=== PATIENT | female | born 1960 | race Caucasian/White ===

== ENCOUNTER 2016-10-08 15:47 | Observation (INO) | payer BC, OTHER ==
[~2016-10-08] VITALS: Ht 157.5 cm; Wt 76.0 kg
[~2016-10-08 15:47] MED LIST: CEPH500C PO; CLONIDINE; [UNRECOGNIZED DRUG - REMARK]
--- NOTE | 2016-10-08 16:12 | EMERGENCY ROOM VISIT NOTE ---
History Report prepared by Florencia: Sherif Verdin Under the Supervision of: Dr. Sherif Ricketts M.D. First contact with patient: 15:57 Chief Complaint: SHORTNESS OF BREATH Stated Complaint: SOB, TIGHT CHEST History of Present Illness The patient is a 56 year old female who presents to the Emergency Room with complaints of waxing and waning shortness of breath. Per the patient's family, she had vascular surgery 1 week ago and had stent inserted in her thighs. She is on Plavix. Per the patient, she has had off and on shortness of breath earlier today. She called her doctor because she also noted swelling in her legs , and was referred to the ER. She adds that she has off and on chest tightness, but denies any cough. She admits to having clots over 30 years ago. She denies any recent falls. Her symptoms are worse when she lays flat she gets increasing short of breath. No history of cardiac disease. The lower extremity edema is new she says as well. No significant pain in her feet. Source of History: patient, family Onset: earlier today Position: other (lungs) Quality: other (shortness of breath) Timing: waxes/wanes Associated Symptoms: + chest pain ("tightness") Note: The patient notes having swelling in her legs. Review of Systems See HPI for pertinent positives & negatives. A total of 10 systems reviewed and were otherwise negative. Past Medical & Surgical Medical Problems: (1) Chest pain (2) Depression (3) Dyslipidemia (4) History of blood clots (5) HTN (hypertension) (6) PVD (peripheral vascular disease) (7) SOB (shortness of breath) Surgical Problems: (1) H/O vascular surgery (2) History of appendectomy Old medical records were reviewed. Nurse's notes were reviewed and I agree with. Family History No pertinent family history stated. Social History Smoking Status: Former Smoker Drug Use: none Marital Status: Current/Historical Medications Scheduled Amlodipine (Norvasc), 10 MG PO DAILY Aspirin (Aspirin Ec), 81 MG PO DAILY Atorvastatin (Lipitor), 80 MG PO DAILY Clonidine HCl (Clonidine HCl), 0.2 MG PO BID Clopidogrel (Plavix), 75 MG PO DAILY Fluoxetine (Prozac), 20 MG PO DAILY Gabapentin (Neurontin), 300 MG PO TID Metoprolol Tartrate (Lopressor) (Lopressor), 25 MG PO BID Pantoprazole (Protonix), 40 MG PO DAILY Ranitidine (Zantac), 300 MG PO HS Scheduled PRN Oxycodone/Acetaminophen 5MG/325MG (Percocet 5MG/325MG), 1-2 TABLETS PO Q4H PRN for Pain Trazodone Hcl (Trazodone), 50 MG PO HS PRN for Insomnia Allergies Coded Allergies: Adhesives (Verified Allergy, Mild, 10/08/16) Guanfacine (Verified Allergy, Unknown, 10/08/16) Nifedipine (Verified Allergy, Unknown, 10/08/16) Physical Exam Vital Signs Date Time Temp Pulse Resp B/P Pulse Ox O2 Delivery O2 Flow Rate FiO2 10/08/16 17:51 60 20 111/60 98 Room Air 10/08/16 16:22 99 Room Air 10/08/16 16:20 63 10/08/16 15:50 36.9 65 20 112/73 98 Room Air Physical Exam General: Well developed well nourished in no acute distress, breathing comfortably on room air. Normal speech. Non-ill appearing middle aged female. Mild dyspnea on exertion with walking. HEENT: Normal cephalic atraumatic. Pupils are equal round and reactive to light. Sclerae anicteric. Extraocular movements are intact. Oropharynx is pink with moist mucous membranes. No swelling of the mouth lips or tongue. Neck: Supple with a midline trachea. No meningeal signs or stiffness, no JVD or bruits. No Stridor. Chest: Clear to auscultation bilaterally. No wheezes or rhonchi. No increased work of breathing. Heart: regular rate and rhythm. Abdomen: Soft nontender, nondistended without rebound guarding or rigidity. Extremities: Bilateral 1+ pedal edema; good capillary refill. Normal sensations. Pulses are difficult to feel bilaterally but she has dopplerable pulses that are easy to find and were marked by the nursing staff. She has good capillary refill. No cyanosis Spine/Back. Non tender to palpation. No CVA tenderness Skin: Good turgor without rashes. Neurologic exam: Cranial nerves two through 12 are intact. Motor and sensation are intact and symmetrical throughout. Medical Decision & Procedures ER Provider Diagnostic Interpretation: X ray results as stated below per my interpretation and radiologist interpretation. Other radiology results as stated below per my review and radiologist interpretation: CHEST ONE VIEW PORTABLE FINDINGS: Stable calcified granuloma within the right upper lobe. The lungs are otherwise clear. The heart is normal in size. No pleural effusions. No pneumothorax. IMPRESSION: No significant change compared to the prior study. No acute process. Electronically signed by: Manan Colmenares M.D. 10/08/2016 4:46 PM Dictated Date/Time: 10/08/2016 4:[address] ANGIOGRAM OF THE CHEST FINDINGS: There is a 28 mm left adrenal adenoma. No pathologically enlarged axillary mediastinal or hilar lymph nodes were visualized. There was no evidence of thoracic aortic dilatation. There were no pulmonary artery filling defects to indicate acute pulmonary embolism. No pleural effusions are visualized. There is respiratory motion artifact. There is a calcified right upper lobe granuloma. There is scattered wispy groundglass opacities most pronounced within the left upper lobe. These could be inflammatory. There is a 3 mm left upper lobe pulmonary nodule as visualized in image #[id number]. There is a 5 mm left upper lobe pulmonary nodule as visualized in image #[id number]. IMPRESSION: 1. No CT evidence of acute pulmonary embolism 2. Scattered wispy groundglass opacities most pronounced in the left upper lobe. These could be inflammatory. Clinical correlation is advocated 3. 3 mm and 5 mm left upper lobe pulmonary nodules. Follow-up per Fleischner criteria is recommended. Please refer to below summary of Fleischner criteria recommendations for follow-up of incidental CT nodules (Nichelle Mann, Guidelines for management of small pulmonary nodules detected on CT scans: A statement from the Fleischner Society, Radiology 237: [phone].) Low Risk Patient: Minimal or no smoking or other known risk factors for malignancy <=4 mm: No follow-up needed. >4-6 mm: Initial follow-up CT at 12 months; if unchanged, no further follow-up. >6-8 mm: Initial follow-up CT at 6-12 months then at 18-24 months if no change. >8 mm: Follow-up CT at \\R\\3, 9, 24 months, or PET and/or biopsy. High Risk Patient: History of smoking or other known risk factors <=4 mm: Follow-up at 12 months; if unchanged, no further follow-up. >4-6 mm: Initial follow-up CT at 6-12 months then at 18-24 months if no change. >6-8 mm: Initial follow-up CT at 3-6 months then at 9-12 and 24 months if no change. >8 mm: Same as low risk patient. Note: Nodule size measured as average of length and width. Ground glass or partly solid nodules may require longer follow-up to exclude indolent adenocarcinoma. Electronically signed by: Greg Moreira M.D. 10/08/2016 5:36 PM Dictated Date/Time: 10/08/2016 5:29 PM Laboratory Results 10/08/16 16:15 Red Blood Count 3.00, Mean Corpuscular Volume 90.7, Mean Corpuscular Hemoglobin 32.3, Mean Corpuscular Hemoglobin Concent 35.7, Mean Platelet Volume 10.8, Neutrophils (%) (Auto) 52.1, Lymphocytes (%) (Auto) 31.2, Monocytes (%) (Auto) 13.1, Eosinophils (%) (Auto) 2.4, Basophils (%) (Auto) 0.4, Neutrophils # (Auto ) 4.94, Lymphocytes # (Auto) 2.96, Monocytes # (Auto) 1.24, Eosinophils # (Auto ) 0.23, Basophils # (Auto) 0.04 10/08/16 16:15 Test 10/08/16 16:15 10/08/16 16:26 White Blood Count 9.49 K/uL (4.8-10.8) Red Blood Count 3.00 M/uL (4.2-5.4) Hemoglobin 9.7 g/dL (12.0-16.0) Hematocrit 27.2 % (37-47) Mean Corpuscular Volume 90.7 fL (80-100) Mean Corpuscular Hemoglobin 32.3 pg (25-34) Mean Corpuscular Hemoglobin Concent 35.7 g/dl (32-36) Platelet Count 261 K/uL (130-400) Mean Platelet Volume 10.8 fL (7.4-10.4) Neutrophils (%) (Auto) 52.1 % Lymphocytes (%) (Auto) 31.2 % Monocytes (%) (Auto) 13.1 % Eosinophils (%) (Auto) 2.4 % Basophils (%) (Auto) 0.4 % Neutrophils # (Auto) 4.94 K/uL (1.4-6.5) Lymphocytes # (Auto) 2.96 K/uL (1.2-3.4) Monocytes # (Auto) 1.24 K/uL (0.11-0.59) Eosinophils # (Auto) 0.23 K/uL (0-0.5) Basophils # (Auto) 0.04 K/uL (0-0.2) RDW Standard Deviation 44.8 fL (36.4-46.3) RDW Coefficient of Variation 13.6 % (11.5-14.5) Immature Granulocyte % (Auto) 0.8 % Immature Granulocyte # (Auto) 0.08 K/uL (0.00-0.02) Prothrombin Time 9.8 SECONDS (9.0-12.0) Prothromb Time International Ratio 0.9 (0.9-1.1) Activated Partial Thromboplast Time 28.9 SECONDS (21.0-31.0) Partial Thromboplastin Ratio 1.1 Anion Gap 12.0 mmol/L (3-11) Est Creatinine Clear Calc Drug Dose 90.9 ml/min Estimated GFR () 114.5 Estimated GFR (Non- 98.8 BUN/Creatinine Ratio 7.7 (10-20) Calcium Level 8.7 mg/dl (8.5-10.1) Total Bilirubin 0.2 mg/dl (0.2-1) Direct Bilirubin < 0.1 mg/dl (0-0.2) Aspartate Amino Transf (AST/SGOT) 30 U/L (15-37) Alanine Aminotransferase (ALT/SGPT) 23 U/L (12-78) Alkaline Phosphatase 83 U/L (45-117) Total Protein 6.9 gm/dl (6.4-8.2) Albumin 3.0 gm/dl (3.4-5.0) Amylase Level 67 U/L (25-115) Lipase 264 U/L (73-393) Bedside D-Dimer > 450 ng/mlFEU (0-450) Bedside Troponin I 0.000 ng/ml (0-0.045) XQ-Gnd-S-Type Natriuretic Peptide 629 pg/ml (0-900) Laboratory studies as stated above per my review. Medications Administered Medications (Trade) Dose Ordered Sig/Rosa Route Start Time Stop Time Status Last Admin Dose Admin Miscellaneous Information (Nursing Verbal Med Order) 1 ea ONE ONCE N/A 10/08/16 17:00 10/08/16 17:01 DC 10/08/16 17:00 1 EA Oxycodone/ Acetaminophen (Percocet 5-325MG Tab) 2 tab NOW STAT PO 10/08/16 17:56 10/08/16 17:57 DC 10/08/16 18:07 2 TAB Metoprolol Tartrate (Lopressor Tab) 25 mg NOW STAT PO 10/08/16 17:57 10/08/16 18:00 DC 10/08/16 18:07 25 MG Clonidine HCl (Catapres Tab) 0.2 mg NOW STAT PO 10/08/16 17:57 10/08/16 18:00 DC 10/08/16 18:06 0.2 MG Gabapentin (Neurontin Cap) 300 mg NOW STAT PO 10/08/16 18:00 10/08/16 18:01 DC 10/08/16 18:16 300 MG ECG Indication: SOB/dyspnea Rate (beats per minute): 63 Rhythm: normal sinus Findings: PAC, no acute ischemic change Comparison ECG Date: July 01, 2008 Change: PACs are now present. ED Course 1558: Past medical records reviewed. The patient was evaluated in room A12, and a complete history and physical examination were performed. 1700: I reassessed the patient and she is resting comfortably. 175: I discussed the patient's case with Sweetie Oshea PA-C, [facility]. They will further evaluate and manage the patient. 1755: Upon reevaluation, the patient is hemodynamically stable. I discussed the results and treatment plan with the patient. She verbalized agreement of the treatment plan. The patient will be evaluated for further management. 1756: Ordered Oxycodone/Acetaminophen 2 tab PO. 1757: Ordered Clonidine HCl 0.2 mg PO, and Lopressor Tab 25 mg PO. 1800: Ordered Gabapentin 300 mg PO. Medical Decision Differentials include CHF, DVT, PE, arterial insufficiency, infection, anemia, and electrolyte or metabolic abnormality. This Patient comes in as described above she has shortness of breath and chest pain in lower extremity edema she recently had vascular surgery on her legs with aortoiliac bypasses. I looked at the incision sites that are healing well without redness pus or drainage. She has a bilateral lower extremity edema. She has no capillary refill problems and no obvious neurovascular compromise to her legs. IV access established EKG and chest x-ray obtained she has nothing thus far to suggest acute cardiac event or arrhythmia. Her troponin is not elevated. Her d-dimer was elevated mildly elevated and in light of this, I did chest CT is no evidence of PE. I did ultrasounds of her legs are unremarkable and has no evidence of DVT. Arterial ultrasounds show that does have some degree of stenosis. I'm not sure what this is compared to her baseline. I do think she is be admitted for further cardiac evaluation and further evaluate her swelling in her legs and to rule out an acute event. She was resting comfortably I did consult the [facility] hospitalist group and they will admit her for these measures. Consults Time Called: 174 Consulting Physician: Sweetie Oshea PA-C, [facility] Returned Call: 175 I discussed the patient's case with Sweetie Oshea PA-C, [facility]. They will further evaluate and manage the patient. Impression Primary Impression: SOB (shortness of breath) Additional Impression: Lower extremity edema Scribe Attestation The scribe's documentation has been prepared under my direction and personally reviewed by me in its entirety. I confirm that the note above accurately reflects all work, treatment, procedures, and medical decision making performed by me. Departure Information Dispostion Being Evaluated By Hospitalist Referrals Fabio Tai M.D. (PCP) Patient Instructions My [facility] Problem Qualifiers
[2016-10-08] MEDS ORDERED: RANI300T2 PO (16:35)
[2016-10-08] MEDS ORDERED: ASPI81TA28 PO (16:35)
[2016-10-08] MEDS ORDERED: CLOP1TAB15 PO (16:35)
[2016-10-08] MEDS ORDERED: METO25TA56 PO (16:35)
[2016-10-08] MEDS ORDERED: ATOR-26 PO (16:35)
[2016-10-08] MEDS ORDERED: OXYC-57 PO (16:35)
[2016-10-08] MEDS ORDERED: AMLO-114 PO (16:35)
[2016-10-08] MEDS ORDERED: PANT40TA PO (16:35)
[2016-10-08] MEDS ORDERED: FLUO20CA35 PO (16:35)
[2016-10-08] MEDS ORDERED: CTP2 PO (16:35)
[2016-10-08] MEDS ORDERED: GABA-113 PO (16:35)
[2016-10-08] MEDS ORDERED: CILO100T PO (16:35)
[2016-10-08 16:36] LABS: BASO % 0.4 %; BASO ABS # 0.04 K/uL (0-0.2); COMPLETE YES; EOS % 2.4 %; HEMATOCRIT 27.2 % (37-47); IG% 0.8 %; LYMPH % 31.2 %; LYMPH ABS # 2.96 K/uL (1.2-3.4); MEAN CELL VOLUME 90.7 fL (80-100); MEAN CORPUSCULAR HEMOGLOBIN 32.3 pg (25-34); MEAN CORPUSCULAR HGB CONC 35.7 g/dl (32-36); MEAN PLATELET VOLUME 10.8 fL (7.4-10.4); MONO % 13.1 %; NEUT % 52.1 %; PLATELET COUNT 261 K/uL (130-400); WHITE BLOOD COUNT 9.49 K/uL (4.8-10.8)
--- NOTE | 2016-10-08 16:48 | DIAGNOSTIC IMAGING REPORT ---
CHEST ONE VIEW PORTABLE HISTORY: Atypical CHEST PAIN COMPARISON: Chest 06/29/2008. FINDINGS: Stable calcified granuloma within the right upper lobe. The lungs are otherwise clear. The heart is normal in size. No pleural effusions. No pneumothorax. IMPRESSION: No significant change compared to the prior study. No acute process. Electronically signed by: Manan Colmenares M.D. 10/08/2016 4:46 PM Dictated Date/Time: 10/08/2016 4:44 PM
[2016-10-08 16:49] LABS: INR 0.9 (0.9-1.1); PARTIAL THROMBOPLASTIN RATIO 1.1; PROTHROMBIN TIME (PATIENT) 9.8 SECONDS (9.0-12.0)
[2016-10-08 16:49] LABS: POINT OF CARE PRO-BNP 629 pg/ml (0-900)
[2016-10-08 16:54] LABS: ALT/SGPT 23 U/L (12-78); AST/SGOT 30 U/L (15-37); BLOOD UREA NITROGEN 5 mg/dl (7-18); BUN/CREATININE RATIO 7.7 (10-20); CALCIUM 8.7 mg/dl (8.5-10.1); CARBON DIOXIDE 22 mmol/L (21-32); CHLORIDE 98 mmol/L (98-107); CREATININE 0.66 mg/dl (0.60-1.20); GLUCOSE 67 mg/dl (70-99); SODIUM 132 mmol/L (136-145)
[2016-10-08 16:56] LABS: ALKALINE PHOSPHATASE 83 U/L (45-117)
[2016-10-08] MEDS ORDERED: NURSING VERBAL MED ORDER ONE (17:00)
[2016-10-08] MEDS ORDERED: OPTIRAY 320 IV PRN (17:15)
--- NOTE | 2016-10-08 17:38 | DIAGNOSTIC IMAGING REPORT ---
CT ANGIOGRAM OF THE CHEST CLINICAL HISTORY: Atypical chest pain. Possible pulmonary embolism. COMPARISON STUDY: Chest x-ray dated 10/08/2016 TECHNIQUE: Following the IV administration of 97 mL of Optiray-320, CT angiogram of the thorax was performed from the thoracic inlet to the lung bases utilizing the pulmonary embolus protocol. Images are reviewed in the axial, sagittal, and coronal planes. IV contrast was administered without complication. MIP imaging was performed. CT DOSE: 412.66 mGy.cm FINDINGS: There is a 28 mm left adrenal adenoma. No pathologically enlarged axillary mediastinal or hilar lymph nodes were visualized. There was no evidence of thoracic aortic dilatation. There were no pulmonary artery filling defects to indicate acute pulmonary embolism. No pleural effusions are visualized. There is respiratory motion artifact. There is a calcified right upper lobe granuloma. There is scattered wispy groundglass opacities most pronounced within the left upper lobe. These could be inflammatory. There is a 3 mm left upper lobe pulmonary nodule as visualized in image #[id number]. There is a 5 mm left upper lobe pulmonary nodule as visualized in image #[id number]. IMPRESSION: 1. No CT evidence of acute pulmonary embolism 2. Scattered wispy groundglass opacities most pronounced in the left upper lobe. These could be inflammatory. Clinical correlation is advocated 3. 3 mm and 5 mm left upper lobe pulmonary nodules. Follow-up per Fleischner criteria is recommended. Please refer to below summary of Fleischner criteria recommendations for follow-up of incidental CT nodules (Nichelle Mann, Guidelines for management of small pulmonary nodules detected on CT scans: A statement from the Fleischner Society, Radiology 237: [phone].) Low Risk Patient: Minimal or no smoking or other known risk factors for malignancy <=4 mm: No follow-up needed. >4-6 mm: Initial follow-up CT at 12 months; if unchanged, no further follow-up. >6-8 mm: Initial follow-up CT at 6-12 months then at 18-24 months if no change. >8 mm: Follow-up CT at \R\3, 9, 24 months, or PET and/or biopsy. High Risk Patient: History of smoking or other known risk factors <=4 mm: Follow-up at 12 months; if unchanged, no further follow-up. >4-6 mm: Initial follow-up CT at 6-12 months then at 18-24 months if no change. >6-8 mm: Initial follow-up CT at 3-6 months then at 9-12 and 24 months if no change. >8 mm: Same as low risk patient. Note: Nodule size measured as average of length and width. Ground glass or partly solid nodules may require longer follow-up to exclude indolent adenocarcinoma. Electronically signed by: Greg Moreira M.D. 10/08/2016 5:36 PM Dictated Date/Time: 10/08/2016 5:29 PM
[2016-10-08] MEDS ORDERED: OXYCODONE/ACETAMINOPHEN 5-325 TAB PO STA (17:56)
[2016-10-08] MEDS ORDERED: CLONIDINE HCL 0.1 MG TAB PO STA (17:57)
[2016-10-08] MEDS ORDERED: METOPROLOL TARTRATE 50 MG TAB PO STA (17:57)
[2016-10-08] MEDS ORDERED: GABAPENTIN 300 MG CAP PO STA (18:00)
[2016-10-08] MEDS ORDERED: TRAZ50TA35 PO (18:39)
[2016-10-08] MEDS ORDERED: ACETAMINOPHEN 325 MG TAB PO PRN (18:45)
[2016-10-08] MEDS ORDERED: ONDANSETRON INJ 2 MG/ML 2 ML VIAL IV PRN (18:45)
[2016-10-08] MEDS ORDERED: TRAZODONE HCL 50 MG TAB PO PRN (18:45)
[2016-10-08] MEDS ORDERED: NITROGLYCERIN 0.4 MG SL PER TAB CHARGE SL PRN (18:45)
--- NOTE | 2016-10-08 19:17 | History and Physical ---
History & Physical Date & Time of Service: Oct 08, 2016 at 18:43 Chief Complaint: Sob, Tight Chest Primary Care Physician: Fabio Tai M.D. History of Present Illness Source: patient This is a 56 y/o female with PMHx of PVD s/p recent bilateral fem-pop and stent placement, HTN, Dyslipidemia and other problems as outlined below who presents to the ED c/o SOB that began yesterday. Pt reports that yesterday she developed SOB that is aggravated with laying flat and exertion. Sxs are assoc with chest tightness, abdominal pain and distention, and worsening bilat LE swelling. She denies pain in her legs. Pt has a history of PVD. She underwent bilateral femoral endarterectomy and iliac stent placement 6 days ago in [place]. She was discharged on Plavix. Patient was a lifelong heavy smoker but quit 1 week ago. Pt currently lives at home with her . She has been using a cane and walker to assist with ambulation post-surgery. Pt denies fever/chills, diaphoresis, palpitations, cough, wheezing, N/V, diarrhea, bladder issues, lightheadedness/dizziness. In the ED, vitals are stable. Pt is afebrile with no leukocytosis. HgB 9.7. d-dimer elevated. Na+ 132. BNP WNL. Trop negative and EKG no ischemic changes. CT chest negative for PE. Pt is stable and will be admitted for further evaluation and treatment. Past Medical/Surgical History Medical Problems: (1) Depression Status: Chronic (2) Dyslipidemia Status: Chronic (3) HTN (hypertension) Status: Chronic (4) PVD (peripheral vascular disease) Status: Chronic Surgical Problems: (1) H/O vascular surgery Permanent Comment: bilateral femoral endarterectomy with iliac stent 10/02/2016 Dr. 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) Immunizations History of Influenza Vaccine: Unknown History of Tetanus Vaccine?: Yes Tetanus Immunization Date: Jun 29, 2006 History of Pneumococcal: Unknown History of Hepatitis B Vaccine: Unknown Multi-Drug Resistant Organisms History of MDRO: No Allergies Coded Allergies: Adhesives (Verified Allergy, Mild, 10/08/16) Guanfacine (Verified Allergy, Unknown, 10/08/16) Nifedipine (Verified Allergy, Unknown, 10/08/16) Home Medications Scheduled Amlodipine (Norvasc), 10 MG PO DAILY Aspirin (Aspirin Ec), 81 MG PO DAILY Atorvastatin (Lipitor), 80 MG PO DAILY Clonidine HCl (Clonidine HCl), 0.2 MG PO BID Clopidogrel (Plavix), 75 MG PO DAILY Fluoxetine (Prozac), 20 MG PO DAILY Gabapentin (Neurontin), 300 MG PO TID Metoprolol Tartrate (Lopressor) (Lopressor), 25 MG PO BID Pantoprazole (Protonix), 40 MG PO DAILY Ranitidine (Zantac), 300 MG PO HS Scheduled PRN Oxycodone/Acetaminophen 5MG/325MG (Percocet 5MG/325MG), 1-2 TABLETS PO Q4H PRN for Pain Trazodone Hcl (Trazodone), 50 MG PO HS PRN for Insomnia Review of Systems Constitutional: No chills, No fatigue, No fever, No sweats, No weakness Eyes: No worsening of vision ENT: No hearing loss Respiratory: + dyspnea on exertion, + shortness of breath, No cough, No dyspnea at rest, No sputum, No wheezing Cardiovascular: + chest pain (tightness), No claudication, No palpitations Abdomen: + constipation, + pain, No GI bleeding, No diarrhea, No nausea, No vomiting Musculoskeletal: + swelling, No calf pain Genitourinary - Female: No dysuria Neurologic: No weakness Psychiatric: No depression symptoms Endocrine: No fatigue Hematologic / Lymphatic: No abnormal bleeding/bruising Integumentary: No new/changing skin lesions Physical Exam Vital Signs Date Time Temp Pulse Resp B/P Pulse Ox O2 Delivery O2 Flow Rate FiO2 10/08/16 17:51 60 20 111/60 98 Room Air 10/08/16 16:22 99 Room Air 10/08/16 16:20 63 10/08/16 15:50 36.9 65 20 112/73 98 Room Air General Appearance: WD/WN, no apparent distress, + pertinent finding (Pt is laying in bed with at bedside ) Head: normocephalic, atraumatic Eyes: normal inspection ENT: hearing grossly normal Neck: supple Respiratory/Chest: chest non-tender, lungs clear, normal breath sounds, no respiratory distress, + pertinent finding (no wheezes or crackles noted) Cardiovascular: regular rate, rhythm, no murmur Abdomen/GI: normal bowel sounds, soft, + tenderness (diffuse tenderness to palpation), + distended Back: normal inspection Extremities/Musculoskelatal: no calf tenderness, + swelling (mild bilateral lower extremity swelling ), + pertinent finding (good peripheral pulses bilat ) Neurologic/Psych: alert, normal mood/affect, oriented x 3 Skin: normal color, warm/dry Diagnostics Laboratory Results Results Past 24 Hours Test 10/08/16 16:15 10/08/16 16:26 Range/Units White Blood Count 9.49 4.8-10.8 K/uL Red Blood Count 3.00 4.2-5.4 M/uL Hemoglobin 9.7 12.0-16.0 g/dL Hematocrit 27.2 37-47 % Mean Corpuscular Volume 90.7 80-100 fL Mean Corpuscular Hemoglobin 32.3 25-34 pg Mean Corpuscular Hemoglobin Concent 35.7 32-36 g/dl Platelet Count 261 130-400 K/uL Mean Platelet Volume 10.8 7.4-10.4 fL Neutrophils (%) (Auto) 52.1 % Lymphocytes (%) (Auto) 31.2 % Monocytes (%) (Auto) 13.1 % Eosinophils (%) (Auto) 2.4 % Basophils (%) (Auto) 0.4 % Neutrophils # (Auto) 4.94 1.4-6.5 K/uL Lymphocytes # (Auto) 2.96 1.2-3.4 K/uL Monocytes # (Auto) 1.24 0.11-0.59 K/uL Eosinophils # (Auto) 0.23 0-0.5 K/uL Basophils # (Auto) 0.04 0-0.2 K/uL RDW Standard Deviation 44.8 36.4-46.3 fL RDW Coefficient of Variation 13.6 11.5-14.5 % Immature Granulocyte % (Auto) 0.8 % Immature Granulocyte # (Auto) 0.08 0.00-0.02 K/uL Prothrombin Time 9.8 9.0-12.0 SECONDS Prothromb Time International Ratio 0.9 0.9-1.1 Activated Partial Thromboplast Time 28.9 21.0-31.0 SECONDS Partial Thromboplastin Ratio 1.1 Sodium Level 132 136-145 mmol/L Potassium Level 4.0 3.5-5.1 mmol/L Chloride Level 98 98-107 mmol/L Carbon Dioxide Level 22 21-32 mmol/L Anion Gap 12.0 3-11 mmol/L Blood Urea Nitrogen 5 7-18 mg/dl Creatinine 0.66 0.60-1.20 mg/dl Est Creatinine Clear Calc Drug Dose 90.9 ml/min Estimated GFR () 114.5 Estimated GFR (Non- 98.8 BUN/Creatinine Ratio 7.7 10-20 Random Glucose 67 70-99 mg/dl Calcium Level 8.7 8.5-10.1 mg/dl Total Bilirubin 0.2 0.2-1 mg/dl Direct Bilirubin < 0.1 0-0.2 mg/dl Aspartate Amino Transf (AST/SGOT) 30 15-37 U/L Alanine Aminotransferase (ALT/SGPT) 23 12-78 U/L Alkaline Phosphatase 83 45-117 U/L Total Protein 6.9 6.4-8.2 gm/dl Albumin 3.0 3.4-5.0 gm/dl Lipase 264 73-393 U/L Bedside D-Dimer > 450 0-450 ng/mlFEU Bedside Troponin I 0.000 0-0.045 ng/ml CJ-Qen-L-Type Natriuretic Peptide 629 0-900 pg/ml Diagnostic Radiology CT CHEST IMPRESSION: 1. No CT evidence of acute pulmonary embolism 2. Scattered wispy groundglass opacities most pronounced in the left upper lobe. These could be inflammatory. Clinical correlation is advocated 3. 3 mm and 5 mm left upper lobe pulmonary nodules. Follow-up per Fleischner criteria is recommended. CXR IMPRESSION: No significant change compared to the prior study. No acute process. EKG EKG: NSR at 63 bpm with occ PACs but no acute ischemic changes; PACs are new when compared to EKG from 2008 Impression Assessment and Plan WORSENING SOB/CHEST TIGHTNESS pt presents with worsening SOB aggravated with laying flat and exertion; saturating well on room air -admit observation status to telemetry -pt is afebrile with no leukocytosis -CT chest negative for PE; no consolidation or effusion -Initial troponin is negative; continue to monitor with serial Dereje -EKG: no ischemic changes noted -BNP WNL -continue to monitor on tele ELEVATED D-DIMER -d-dimer>450 -CT chest negative for PE -check bilateral LE venous and arterial US to r/o clot -monitor BILATERAL LE SWELLING -s/p LE vascular surgery 10/02/16 -check bilateral LE venous and arterial US to r/o clot -monitor ABDOMINAL PAIN -abd pain and distention -obtain CT abd/pelvis to eval for intraabdominal pathology ANEMIA -HgB 9.7; likely due to blood loss from recent vascular surgery -continue to monitor daily -pt denies active bleed PULMONARY NODULES ON CT -CT chest + 3 mm and 5 mm left upper lobe pulmonary nodules -obtain f/u CT in 6-12 months PVD -s/p bilateral LE endarterectomy and iliac stent placement 10/02/16 -lifelong smoker; quit 1 week ago -cont ASA, Plavix and statin -monitor DEPRESSION -stable -cont Celexa GERD -cont Protonix and ranitidine HTN -BP stable -cont Metoprolol and Norvasc -monitor DYSLIPIDEMIA -cont statin DVT PROPHYLAXIS -subq Lovenox CODE STATUS -FULL CODE per discussion with patient DISPO -Observation status until further workup is complete. Pt seen in collaboration with Dr. Flores. Please see his addendum for further details. Thanks! ATTENDING NOTE Patient seen and examined at bedside. Reviewed the above History/Physical and confirmed all the findings in person. She looks much older than her stated age.She recently had Fem-pop angioplasty with Femoral endarterectomy for PVD. Patient comes in with worsening B/L pedal edema for the past 3-4 days associated with Dyspnea at rest. Denies any chest pain/pressure. Also has been experiencing intermittent abdominal abdominal pain with no nausea/vomiting. Has elevated D-dimer. CTA Chest rules out Pulmonary embolism but has some scattered areas reflecting inflammatory process. Patient is afebrile. With recent vascular procedure, suspicion for embolic process is high. Ordered Venous Duplex study but it is B/L edema. Ordered CT Abdomen/Pelvis to see if there is any acute process. Empirically have started I/V Heparin and will follow up the work up. Started Rocephin empirically Patient is FULL CODE DVT Prophylaxis: I/V Heparin Patient will be followed up by Dr. Maravilla. Matthias Flores MD Level of Care Telemetry Resuscitation Status FULL RESUSCITATION VTE Prophylaxis VTE Risk Assessment Done? Y/N: Yes Risk Level: Moderate Given or contraindicated: Unfractionated heparin SQ
[2016-10-08] MEDS ORDERED: IV FLUIDS COMPLETED PRN (21:00)
[2016-10-08] MEDS ORDERED: ENOXAPARIN 40 MG/0.4 ML SYR SC SCH (21:00)
[2016-10-08] MEDS ORDERED: CLONIDINE HCL 0.2 MG TAB PO SCH (21:00)
--- NOTE | 2016-10-08 21:19 | DIAGNOSTIC IMAGING REPORT ---
CT SCAN OF THE ABDOMEN AND PELVIS WITHOUT CONTRAST CLINICAL HISTORY: abdominal pain and distention COMPARISON STUDY: No previous studies for comparison. TECHNIQUE: CT scan of the abdomen and pelvis was performed from the lung bases to the proximal femurs. Images are reviewed in the axial, sagittal, and coronal planes. IV contrast was not administered for this examination. CT DOSE: 543.16 mGy.cm FINDINGS: Lower chest: There are mild basilar atelectatic changes left greater than right Liver: The unenhanced liver is normal in size, contour, and attenuation. There is no intrahepatic biliary ductal dilatation. Gallbladder: Unremarkable. Spleen: Normal in size and attenuation. Pancreas: Unremarkable. Adrenal glands: There are 2 low density left adrenal nodules the largest of which measures 29 mm. These are consistent with adenomas. Kidneys: Both kidneys demonstrate contrast excretion secondary to the CT scan performed ON the day. No solid masses are visualized. There is no hydronephrosis Bowel: There are no transition zones indicate bowel obstruction. There is colonic diverticulosis. There are no acute peridiverticular inflammatory changes. There are no findings to indicate acute appendicitis. The appendix is not visualized with certainty. Peritoneum: There is no intraperitoneal free air or abdominal ascites. Vasculature: There are extensive atheromatous calcifications within the aorta and iliac vessels. There are aorto iliac stent grafts present. Adenopathy: There are mildly prominent inguinal lymph nodes. Pelvic viscera: There is infiltration of the fat surrounding both inguinal regions, consistent with recent vascular surgery. There is an air droplets within the left inguinal region, likely postsurgical. No abnormal pelvic masses are visualized. There is air within the bladder, likely echogenic. Skeletal structures: No destructive osseous lesions are seen. IMPRESSION: 1. No evidence of bowel obstruction. No evidence of free air 2. Diverticulosis. No evidence of acute diverticulitis 3. Nonvisualization the appendix, but no evidence of acute appendicitis 4. Left adrenal adenomas 5. Postsurgical changes in both inguinal regions. Evidence of aortoiliac stent grafts Electronically signed by: Greg Moreira M.D. 10/08/2016 9:17 PM Dictated Date/Time: 10/08/2016 9:11 PM
--- NOTE | 2016-10-08 21:22 | DIAGNOSTIC IMAGING REPORT ---
ULTRASOUND VENOUS DOPPLER LWR EXT BILA CLINICAL HISTORY: Bilateral leg pain and swelling COMPARISON STUDY: No previous studies for comparison. FINDINGS: Real-time and color flow Doppler imaging were performed. Flow was seen within the femoral, popliteal and calf veins with no intraluminal thrombus demonstrated. The saphenous vein is patent. Evaluation the groin areas was difficult due to recent surgery and overlying skin neto. IMPRESSION: No evidence of lower extremity DVT. Electronically signed by: Greg Moreira M.D. 10/08/2016 9:20 PM Dictated Date/Time: 10/08/2016 9:19 PM
--- NOTE | 2016-10-08 21:28 | DIAGNOSTIC IMAGING REPORT ---
ARTERIAL DOPPLER ULTRASOUND LOWER EXTREMITY BILATERAL CLINICAL HISTORY: Bilateral leg pain. History of recent aortoiliac stent grafting COMPARISON STUDY: No previous studies for comparison. FINDINGS: The right brachial systolic pressure was 114 mmHg. The right posterior tibial pressure was 72 mmHg. The left posterior tibial pressure was 46 mmHg. The right dorsalis pedis pressure was 56 mmHg. The left dorsalis pedis pressure was 29 mmHg. This yields reduced ankle arm indices of 0.6 on the right and 0.4 on the left. There is monophasic waveforms involving both common femoral arteries, superficial femoral arteries, popliteal arteries, anterior tibial arteries and posterior tibial arteries. There is monophasic flow within the peroneal arteries bilaterally. There are diminished velocities within superficial femoral artery distally on the right. There is low-level to flow with the runoff vessels. There is low-level to flow within the mid left superficial femoral artery. There is limited flow within the runoff vessels. IMPRESSION: 1. Evidence of peripheral vascular disease with diminished ankle arm indices measuring 0.6 on the right and 0.4 and the left 2. Monophasic common femoral artery waveform suggesting a more proximal stenosis. 3. Low amplitude flow involving both superficial femoral arteries. Bilateral SFA stenoses are suspected. Electronically signed by: Greg Moreira M.D. 10/08/2016 9:26 PM Dictated Date/Time: 10/08/2016 9:20 PM
[2016-10-08 21:32] VITALS: BP 111/70; PULSE 57; TEMP 36.6; O2SAT 96; Ht 157.5 cm; Wt 76.0 kg
[2016-10-08] MEDS: GABAPENTIN 300 MG CAP PO SCH (21:34)
[2016-10-08] MEDS: ATORVASTATIN 40 MG TAB PO SCH (21:35)
[2016-10-08] MEDS: RANITIDINE HCL 150 MG TAB PO SCH (21:36)
[2016-10-08] MEDS: CLONIDINE HCL 0.1 MG TAB PO SCH (22:09)
[2016-10-08] MEDS: HEPARIN 25,000 UNIT/500ML D5W 500 ML IV PRN (22:10)
[2016-10-08] MEDS: OXYCODONE/ACETAMINOPHEN 5-325 TAB PO PRN (22:18)
[2016-10-09] VITALS (11 sets, daily range): BP systolic 87–129; BP diastolic 56–76; PULSE 51–78; TEMP 36.3–36.8; O2SAT 95–99
[2016-10-09] MEDS: OXYCODONE/ACETAMINOPHEN 5-325 TAB PO PRN ×4 (03:18→18:08)
[2016-10-09 04:51] LABS: HEMATOCRIT 24.3 % (37-47); MEAN CELL VOLUME 93.8 fL (80-100); MEAN CORPUSCULAR HEMOGLOBIN 32.4 pg (25-34); MEAN CORPUSCULAR HGB CONC 34.6 g/dl (32-36); MEAN PLATELET VOLUME 10.9 fL (7.4-10.4); PLATELET COUNT 209 K/uL (130-400); RED BLOOD COUNT 2.59 M/uL (4.2-5.4); WHITE BLOOD COUNT 7.15 K/uL (4.8-10.8)
[2016-10-09 05:07] LABS: BLOOD UREA NITROGEN 8 mg/dl (7-18); BUN/CREATININE RATIO 11.1 (10-20); CALCIUM 8.5 mg/dl (8.5-10.1); CARBON DIOXIDE 26 mmol/L (21-32); CHLORIDE 101 mmol/L (98-107); GLUCOSE 101 mg/dl (70-99); SODIUM 135 mmol/L (136-145)
[2016-10-09 05:09] LABS: PARTIAL THROMBOPLASTIN RATIO 1.8
[2016-10-09] MEDS: PANTOprazole SOD 40 MG TAB PO SCH (07:40)
[2016-10-09] MEDS: CLONIDINE HCL 0.1 MG TAB PO SCH ×2 (07:40→20:36)
[2016-10-09] MEDS: ASPIRIN 81 MG ECTAB PO SCH (07:41)
[2016-10-09] MEDS: FLUOXETINE HCL 20 MG CAP PO SCH (07:42)
[2016-10-09] MEDS: CLOPIDOGREL BISULFATE 75 MG TAB PO SCH (07:42)
[2016-10-09] MEDS: AMLODIPINE BESYLATE 5 MG TAB PO SCH (07:42)
[2016-10-09] MEDS: GABAPENTIN 300 MG CAP PO SCH ×3 (07:42→20:25)
[2016-10-09] MEDS ORDERED: METOPROLOL TARTRATE 25 MG TAB PO SCH (09:00)
[2016-10-09 12:06] LABS: PARTIAL THROMBOPLASTIN RATIO 1.7
--- NOTE | 2016-10-09 12:58 | CARDIOLOGY CONSULTATION ---
DATE OF CONSULTATION: 10/09/2016 CONSULTATION FOR: [facility] hospitalist. REASON FOR CONSULTATION: Shortness of breath. HISTORY OF PRESENT ILLNESS: This is a 56-year-old female with a history of peripheral vascular disease and actually was just at [facility] 2 days ago receiving stents in her lower extremities. She has been followed by vascular surgery and has never been referred for cardiology evaluation. The patient was admitted with shortness of breath, which she describes as being aggravated by lying flat and with exertion. She also has had lower extremity edema, which has worsened since her hospital admission to [facility]. After admission here she has had a CT of the chest, as well as ultrasounds of lower extremities that failed to show DVT or pulmonary emboli. She has been in atrial fibrillation, which at times has been at a slow rate. Her troponins have been negative. Her EKG shows no acute changes. Her hemoglobin was 9.7 on admission, is 8.4 today. She has a longstanding history of cigarette smoking and stopped, she states, the morning that she had her stents placed in her legs. She has no ongoing history; however, of chronic lung disease. She has been treated for dyslipidemia and hypertension. ALLERGIES: ADHESIVE TAPES, NIFEDIPINE. PAST MEDICAL HISTORY: Per the history of chief complaint. She has no prior history of chronic kidney disease or diabetes. SOCIAL HISTORY: She has at least an 26-alap-cykz smoking history. She drinks 2 beers per night. She is . 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 FAMILY MEDICAL HISTORY: Noncontributory. REVIEW OF SYSTEMS: A 10-point review of systems is negative except for the history of chief complaint. PHYSICAL EXAMINATION: GENERAL: She is alert and oriented. VITAL SIGNS: Blood pressure is 110/70, pulse is regular at 65. She is afebrile. HEENT: She is normocephalic. Pupils are equal and reactive to light. Mucous membranes are moist. NECK: The neck veins are flat. Carotids have good upstrokes bilaterally without bruits. Thyroid is nonpalpable. RESPIRATORY: Breath sounds equal bilaterally and clear to auscultation. CARDIOVASCULAR: Heart has an irregular rhythm. Normal S1, S2. No S3, S4. No cardiac rubs or murmurs. GASTROINTESTINAL: Abdomen is soft, nontender without organomegaly. EXTREMITIES: Have minimal swelling around the ankles and feet. NEUROLOGIC: Grossly intact. SKIN: Warm to touch. LYMPH NODES: Negative to palpation. LABORATORY DATA: Per the history of chief complaint. IMPRESSION: 1. Arteriosclerotic vascular disease. 2. Recent stents placed in lower extremity at [facility]. 3. No previous cardiac evaluation. 4. Persistent atrial fibrillation. 5. Possible congestive heart failure. RECOMMENDATIONS: Due to the patient's bradycardia, I am going to discontinue her metoprolol. She will have an echocardiogram to evaluate her LV function. Her renal function at least by blood chemistry is within normal limits. She may benefit from some gentle diuresis. I will have further recommendations after the echocardiogram is complete.
[2016-10-09] MEDS ORDERED: FUROSEMIDE 40 MG/4 ML VIAL ONE (13:44)
[2016-10-09] MEDS ORDERED: HEPARIN IV BOLUS 2,000 UNIT in SYRINGE 0 ML IV ONE (13:45)
[2016-10-09] MEDS ORDERED: FUROSEMIDE INJ 20 MG in SYRINGE 0 ML IV ONE (13:45)
[2016-10-09] MEDS: HEPARIN 25,000 UNIT/500ML D5W 500 ML IV PRN ×2 (13:51→20:16)
[2016-10-09] MEDS ORDERED: PERFLUTREN LIPID MICROSPHERE (DEFINITY) IV ONE (15:18)
[2016-10-09] MEDS ORDERED: POLYETHYLENE (MIRALAX) 17 GM PACK PO PRN (15:45)
--- NOTE | 2016-10-09 19:24 | Progress Note ---
Medicine Progress Note Date & Time of Visit: Oct 09, 2016 at 19:12. Subjective Patient reports feeling better after lasix, denies any complaints other than soreness in groin from surgery. No overnight events noted. Tolerating PO. No difficulty with ambulation. Denies any additional abdominal pain/SOB. Objective Last 8 Hrs Date Time Temp Pulse Resp B/P Pulse Ox O2 Delivery O2 Flow Rate FiO2 10/09/16 16:00 99 Room Air 10/09/16 15:22 36.7 73 16 107/76 99 Room Air 10/09/16 12:00 98 Room Air 10/09/16 11:21 36.7 76 18 129/65 98 Physical Exam: GENERAL: Patient is in no acute distress. HEENT: No acute trauma, normocephalic, mucous membranes moist, no nasal congestion, no scleral icterus. NECK: No stridor, trachea is midline. LUNGS: Diminished bases bilaterally, no wheeze, no rhonchi, breath sounds equal. HEART: Without murmurs gallops or rubs, irregularly irregular ABDOMEN: Soft, nontender, bowel sounds positive EXTREMITIES: No cyanosis; B/L LE with trace edema; bilateral groin with intact incisions and neto, no drainage or erythema noted NEUROLOGIC: Oriented, no acute motor or sensory deficits, no focal weakness. SKIN: No rash, no jaundice, no diaphoresis. Laboratory Results: Last 24 Hours Test 10/08/16 21:40 10/09/16 04:00 10/09/16 04:38 10/09/16 11:40 Lactic Acid Level 0.8 mmol/L 1.0 mmol/L Creatine Kinase MB < 0.5 ng/ml 0.6 ng/ml Creatine Kinase MB Ratio Troponin I < 0.015 ng/ml < 0.015 ng/ml White Blood Count 7.15 K/uL Red Blood Count 2.59 M/uL Hemoglobin 8.4 g/dL Hematocrit 24.3 % Mean Corpuscular Volume 93.8 fL Mean Corpuscular Hemoglobin 32.4 pg Mean Corpuscular Hemoglobin Concent 34.6 g/dl RDW Standard Deviation 46.7 fL RDW Coefficient of Variation 13.8 % Platelet Count 209 K/uL Mean Platelet Volume 10.9 fL Activated Partial Thromboplast Time 47.5 SECONDS 43.1 SECONDS Partial Thromboplastin Ratio 1.8 1.7 Sodium Level 135 mmol/L Potassium Level 4.0 mmol/L Chloride Level 101 mmol/L Carbon Dioxide Level 26 mmol/L Anion Gap 8.0 mmol/L Blood Urea Nitrogen 8 mg/dl Creatinine 0.70 mg/dl Est Creatinine Clear Calc Drug Dose 86.3 ml/min Estimated GFR () 112.3 Estimated GFR (Non- 96.9 BUN/Creatinine Ratio 11.1 Random Glucose 101 mg/dl Calcium Level 8.5 mg/dl Pro-B-Type Natriuretic Peptide 563 pg/ml Thyroid Stimulating Hormone (TSH) 4.310 uIu/ml Hepatitis C Antibody Screen NEG Test 10/09/16 19:00 Assessment & Plan WORSENING SOB/CHEST TIGHTNESS/NEW ONSET ATRIAL FIBRILLATION: -presenting with worsening SOB aggravated with laying flat and exertion; saturating well on room air -EKG from this AM shows A fib, rates have been on the lower side -afebrile with no leukocytosis, TSH normal, no prior history of A fib -CT chest negative for PE; no consolidation or effusion -serial CMs negative -EKG: no ischemic changes noted, EKG this AM shows A fib -BNP normal -continue to monitor on tele -Cardiology consulted, appreciate recs -TTE ordered BILATERAL LE SWELLING: -s/p LE vascular surgery 10/02/16 -bilateral LE venous and arterial US negative for thrombus -monitor -lasix ordered per Cardio ABDOMINAL PAIN: improved -abd pain and distention -CT abd/pelvis: ANEMIA: -Hb 9.7-->8.4 -likely due to blood loss from recent vascular surgery -monitor closely especially given patient is on IV heparin -monitor for bleeding -check FOBT PULMONARY NODULES: SEEN ON CT -CT chest + 3 mm and 5 mm left upper lobe pulmonary nodules -obtain f/u CT in 6-12 months PVD: -s/p bilateral LE endarterectomy and iliac stent placement 10/02/16 -lifelong smoker; quit 1 week ago -continue ASA, Plavix and statin -monitor DEPRESSION: -stable -continue Celexa GERD: -continue Protonix and ranitidine HTN: -BP stable -continue clonidine and Norvasc; metoprolol stopped -monitor DYSLIPIDEMIA: -continue statin Current Inpatient Medications: Current Inpatient Medications Medications (Trade) Dose Ordered Sig/Rosa Route Start Time Stop Time Status Last Admin Dose Admin Ioversol (Optiray 320) 111 ml UD PRN IV 10/08/16 17:15 10/12/16 17:14 Acetaminophen (Tylenol Tab) 650 mg Q4H PRN PO 10/08/16 18:45 11/07/16 18:44 Ondansetron HCl (Zofran Inj) 4 mg Q6H PRN IV 10/08/16 18:45 11/07/16 18:44 Nitroglycerin (Nitrostat Tab) 0.4 mg UD PRN SL 10/08/16 18:45 11/07/16 18:44 Amlodipine Besylate (Norvasc Tab) 10 mg DAILY PO 10/09/16 09:00 11/08/16 08:59 10/09/16 07:42 10 MG Aspirin (Ecotrin Tab) 81 mg DAILY PO 10/09/16 09:00 11/08/16 08:59 10/09/16 07:41 81 MG Atorvastatin Calcium (Lipitor Tab) 80 mg HS PO 10/08/16 21:00 11/07/16 20:59 10/08/16 21:35 80 MG Clopidogrel Bisulfate (plAVix TAB) 75 mg DAILY PO 10/09/16 09:00 11/08/16 08:59 10/09/16 07:42 75 MG Fluoxetine HCl (Prozac Cap) 20 mg DAILY PO 10/09/16 09:00 11/08/16 08:59 10/09/16 07:42 20 MG Gabapentin (Neurontin Cap) 300 mg TID PO 10/08/16 21:00 11/07/16 20:59 10/09/16 15:19 300 MG Oxycodone/ Acetaminophen (Percocet 5-325MG Tab) 2 tab Q4H PRN PO 10/08/16 18:45 10/22/16 18:44 10/09/16 18:08 2 TAB Pantoprazole Sodium (Protonix Tab) 40 mg DAILY PO 10/09/16 09:00 11/08/16 08:59 10/09/16 07:40 40 MG Trazodone HCl (Desyrel Tab) 50 mg HS PRN PO 10/08/16 18:45 11/07/16 18:44 Ranitidine HCl (zANTac TAB) 300 mg HS PO 10/08/16 21:00 11/07/16 20:59 10/08/16 21:36 300 MG Clonidine HCl (Catapres Tab) 0.2 mg BID PO 10/08/16 21:00 11/07/16 20:59 10/09/16 07:40 0.2 MG Miscellaneous 1 ea 1 ea PRN PRN N/A 10/08/16 21:00 10/08/17 20:59 Heparin Sodium/ Dextrose (Heparin 25,000 Unit/500ml D5W) 500 ml @ 24 mls/hr [id number] PRN IV 10/08/16 21:30 11/07/16 21:29 10/09/16 13:51 24 MLS/HR Polyethylene (Miralax Powder Packet) 17 gm DAILY PRN PO 10/09/16 15:45 11/08/16 15:44
[2016-10-09 19:44] LABS: PARTIAL THROMBOPLASTIN RATIO 2.6
[2016-10-09] MEDS: RANITIDINE HCL 150 MG TAB PO SCH (20:25)
[2016-10-09] MEDS: ATORVASTATIN 40 MG TAB PO SCH (20:25)
[2016-10-10] VITALS (9 sets, daily range): BP systolic 88–123; BP diastolic 53–79; PULSE 54–61; TEMP 36.4–37.2; O2SAT 96–100
[2016-10-10] MEDS: OXYCODONE/ACETAMINOPHEN 5-325 TAB PO PRN ×2 (00:09→06:27)
[2016-10-10 04:51] LABS: HEMATOCRIT 24.6 % (37-47); MEAN CELL VOLUME 94.6 fL (80-100); MEAN CORPUSCULAR HEMOGLOBIN 32.7 pg (25-34); MEAN PLATELET VOLUME 11.6 fL (7.4-10.4); PLATELET COUNT 209 K/uL (130-400); WHITE BLOOD COUNT 6.49 K/uL (4.8-10.8)
[2016-10-10 04:57] LABS: MEAN CORPUSCULAR HGB CONC 34.6 g/dl (32-36)
[2016-10-10 05:08] LABS: PARTIAL THROMBOPLASTIN RATIO 2.6
[2016-10-10] MEDS: FLUOXETINE HCL 20 MG CAP PO SCH (07:35)
[2016-10-10] MEDS: PANTOprazole SOD 40 MG TAB PO SCH (07:35)
[2016-10-10] MEDS: CLONIDINE HCL 0.1 MG TAB PO SCH ×2 (07:35→21:17)
[2016-10-10] MEDS: ASPIRIN 81 MG ECTAB PO SCH (07:36)
[2016-10-10] MEDS: AMLODIPINE BESYLATE 5 MG TAB PO SCH (07:36)
[2016-10-10] MEDS: GABAPENTIN 300 MG CAP PO SCH ×3 (07:37→20:50)
[2016-10-10] MEDS: CLOPIDOGREL BISULFATE 75 MG TAB PO SCH (07:37)
--- NOTE | 2016-10-10 08:41 | ECHOCARDIOGRAM REPORT ---
*NOTICE TO RECEIVING [employer] This information is strictly Confidential and protected under [place] law. [place] law prohibits you from making any further disclosure of this information unless further disclosure is expressly permitted by the written consent of the person to whom it pertains or is authorized by law. A general authorization for the release of medical or other information is not sufficient for this purpose. Hospital accepts no responsibility if the information is made available to any other person, INCLUDING THE PATIENT. Interpretation Summary * Conclusions -- * The left ventricle is normal in size. * Left ventricular systolic function is normal. * Ejection Fraction = 60-65%. * The right ventricular systolic function is normal. * The left atrial size is normal. * Right atrial size is normal. * There is trace mitral regurgitation. * There is mild tricuspid regurgitation. Procedure Details * A complete two-dimensional transthoracic echocardiogram was performed (2D, M-mode, Doppler and color flow Doppler). * There were technical limitations due to patient'spoor positioning * A contrast injection of Definity was performed to improve assessment of LV function. * Contrast was injected into an intravenous site in the left arm. * One vial of Definity ultrasound contrast was diluted in normal saline to a total volume of 10 ml. A total of '2' ml of solution was administered during imaging. Left Ventricle * The left ventricle is normal in size. * There is normal left ventricular wall thickness. * Ejection Fraction = 60-65%. * Left ventricular systolic function is normal. * The left ventricular wall motion is normal. Right Ventricle * The right ventricle is normal size. * The right ventricular systolic function is normal. Atria * The left atrial size is normal. * Right atrial size is normal. * There is no evidence of atrial septal defect, but resolution does not allow assessment for a patent foramen ovale. Mitral Valve * The mitral valve is grossly normal. * There is trace mitral regurgitation. Tricuspid Valve * The tricuspid valve is not well visualized, but is grossly normal. * There is mild tricuspid regurgitation. Aortic Valve * The aortic valve is tricuspid. The leaflet thickness if normal. There is no aortic stenosis, and no significant insufficiency. * No hemodynamically significant valvular aortic stenosis. * There is no significant aortic regurgitation. Pulmonic Valve * The pulmonic valve is not well visualized. Great Vessels * The aortic root and proximal ascending aorta are normal sized. Pericardium/Pleural * There is no pericardial effusion. MMode 2D Measurements and Calculations IVSd 0.99 cm IVSs 1.1 cm LVIDd 4.1 cm LVIDs 2.6 cm LVPWd 1.0 cm LVPWs 1.2 cm IVS/LVPW 0.97 FS 38.0 % EDV(Teich) 76.1 ml ESV(Teich) 23.9 ml EF(Teich) 68.6 % EDV(cubed) 71.1 ml ESV(cubed) 17.0 ml EF(cubed) 76.1 % % IVS thick 15.1 % % LVPW thick 15.9 % LV mass(C)d 135.6 grams LV mass(C)dI 74.9 grams/m\S\2 LV mass(C)s 84.1 grams LV mass(C)sI 46.4 grams/m\S\2 CO(Teich) 4.1 l/min CI(Teich) 2.3 l/min/m\S\2 SV(Teich) 52.1 ml SI(Teich) 28.8 ml/m\S\2 CO(cubed) 4.3 l/min CI(cubed) 2.4 l/min/m\S\2 SV(cubed) 54.1 ml SI(cubed) 29.9 ml/m\S\2 Ao root diam 3.4 cm Ao root area 8.9 cm\S\2 ACS 1.7 cm LA dimension 3.4 cm LA/Ao 1.0 LVAd ap4 44.3 cm\S\2 LVLd ap4 9.7 cm EDV(MOD-sp4) 164.0 ml LVAs ap4 24.5 cm\S\2 LVLs ap4 7.9 cm ESV(MOD-sp4) 62.0 ml EF(MOD-sp4) 62.2 % LVAd ap2 29.2 cm\S\2 LVLd ap2 7.8 cm EDV(MOD-sp2) 91.0 ml LVAs ap2 15.6 cm\S\2 LVLs ap2 6.6 cm ESV(MOD-sp2) 31.0 ml EF(MOD-sp2) 65.9 % CO(MOD-sp4) 8.1 l/min CI(MOD-sp4) 4.5 l/min/m\S\2 SV(MOD-sp4) 102.0 ml SI(MOD-sp4) 56.3 ml/m\S\2 CO(MOD-sp2) 4.7 l/min CI(MOD-sp2) 2.6 l/min/m\S\2 SV(MOD-sp2) 60.0 ml SI(MOD-sp2) 33.1 ml/m\S\2 Doppler Measurements and Calculations MV A max tamica 121.9 cm/sec Ao V2 max 133.6 cm/sec Ao max PG 7.1 mmHg Ao max PG (full) 3.2 mmHg LV V1 max PG 3.9 mmHg LV V1 max 98.7 cm/sec PA V2 max 86.3 cm/sec PA max PG 3.0 mmHg TR max tamica 228.9 cm/sec
[2016-10-10] MEDS ORDERED: FUROSEMIDE 20 MG TAB PO ONE (10:30)
--- NOTE | 2016-10-10 11:25 | PROGRESS NOTE ---
DATE: 10/10/2016 SUBJECTIVE : The patient is a 56-year-old female with arteriosclerotic vascular disease who had stents in her lower extremities earlier this week. Two days after that procedure, she had shortness of breath which she describes as being exacerbated by lying flat and noted some lower extremity edema. She was admitted and after admission, she had rate controlled atrial fibrillation/flutter. She was given diuresis yesterday and states that she feels better. She is currently in a sinus rhythm, so she is going in and out of rate controlled atrial fibrillation. We had stopped her metoprolol yesterday because of bradycardia. She is currently on heparin. Consideration is for future anticoagulation while on dual antiplatelet therapy. She is anemic and this may be related to her recent procedure and blood loss. However, there is a concern of other etiologies for her anemia and I will do a workup including for iron deficiency, B12 and folate levels. I will not start her on warfarin until these labs are back. She does have a history of a colonoscopy approximately 5 years ago that was unremarkable and she has no history that would suggest GI bleeding. She has never had a workup for ischemic heart disease despite having arteriosclerotic vascular disease. Her echocardiogram shows well preserved LV function. We will obtain a pharmacologic nuclear stress test prior to discharge. OBJECTIVE: VITAL SIGNS: Blood pressure is 100/60, pulse is regular at 55 beats per minute. GENERAL: She is afebrile. HEENT: She is normocephalic. Pupils are equal and reactive to light. Extraocular muscles are intact bilaterally. NECK: The neck veins are flat. Carotids have good upstrokes bilaterally without bruits. Thyroid is nonpalpable. RESPIRATORY: Breath sounds equal bilaterally and clear to auscultation. CARDIOVASCULAR: Heart has a regular rhythm. Normal S1, S2. No S3, S4. No cardiac rubs or murmurs. GASTROINTESTINAL: Abdomen is soft, nontender without organomegaly. EXTREMITIES: Free of edema, digit clubbing, or cyanosis. NEUROLOGIC: Grossly intact. SKIN: Warm to touch. LYMPH NODES: Negative to palpation. LABORATORY DATA: Hemoglobin is 8.5 today. Platelet count is 209,000. IMPRESSION: 1. Arteriosclerotic vascular disease. 2. Recent stents placed in lower extremity at [facility]. 3. Paroxysmal atrial fibrillation. 4. Possible ischemic heart disease. 5. Anemia. RECOMMENDATIONS: As outlined above, I plan on working up the patient's anemia before we start her on long-term anticoagulation. She will also need to be screened for ischemic heart disease with a pharmacologic nuclear stress test.
[2016-10-10 12:06] LABS: FERRITIN 258.5 ng/ml (8.0-388.0)
[2016-10-10] MEDS: HYDROCODONE/ACETAMOPHEN 5/325MG TAB PO PRN ×2 (12:22→18:37)
--- NOTE | 2016-10-10 17:04 | Progress Note ---
Medicine Progress Note Date & Time of Visit: Oct 10, 2016 at 16:56. Subjective Patient seen earlier today, complains of itching in bilateral groin at incision site. Did report feeling dizzy/lightheaded while in the bathroom earlier today, and BP was noted to be on the lower side. Has been in A fib intermittently per tele monitor. Patient reports not having a BM and requesting more laxatives. Also requests to have pain medication changed to hydrocodone as she feels percocet is too strong for her. States she has some pain in her LLQ of the abdomen and feels her abdomen to be distended. Objective Last 8 Hrs Date Time Temp Pulse Resp B/P Pulse Ox O2 Delivery O2 Flow Rate FiO2 10/10/16 16:00 Room Air 10/10/16 14:58 37.2 58 20 88/61 99 Room Air 10/10/16 12:00 Room Air 10/10/16 11:23 55 102/68 10/10/16 11:23 36.9 54 20 122/79 100 Room Air 10/10/16 11:23 59 94/56 10/10/16 09:50 57 95/53 Physical Exam: GENERAL: Patient is in no acute distress. HEENT: No acute trauma, normocephalic, mucous membranes moist, no nasal congestion, no scleral icterus. NECK: No stridor, trachea is midline. LUNGS: Diminished bases bilaterally, no wheeze, no rhonchi, breath sounds equal. HEART: Without murmurs gallops or rubs, irregularly irregular ABDOMEN: Soft, tender LLQ, bowel sounds positive EXTREMITIES: No cyanosis; B/L LE with trace edema; bilateral groin with intact incisions and neto, no drainage or erythema noted NEUROLOGIC: Oriented, no acute motor or sensory deficits, no focal weakness. SKIN: No rash, no jaundice, no diaphoresis. Laboratory Results: Last 24 Hours Test 10/09/16 19:15 10/10/16 04:30 10/10/16 10:10 10/10/16 10:54 Activated Partial Thromboplast Time 67.5 SECONDS 66.5 SECONDS Partial Thromboplastin Ratio 2.6 2.6 White Blood Count 6.49 K/uL Red Blood Count 2.60 M/uL Hemoglobin 8.5 g/dL Hematocrit 24.6 % Mean Corpuscular Volume 94.6 fL Mean Corpuscular Hemoglobin 32.7 pg Mean Corpuscular Hemoglobin Concent 34.6 g/dl RDW Standard Deviation 47.8 fL RDW Coefficient of Variation 13.8 % Platelet Count 209 K/uL Mean Platelet Volume 11.6 fL Transferrin % Saturation % 19 % Absolute Reticulocyte Count 0.11 10^6/uL Percent Reticulocyte Count 4.1 % Iron Level 43 mcg/dl Total Iron Binding Capacity 209 mcg/dl Transferrin 165 mg/dl Ferritin 258.5 ng/ml Vitamin B12 Level 528 pg/mL Folate 8.48 ng/mL Assessment & Plan WORSENING SOB/CHEST TIGHTNESS/NEW ONSET PAF: -presenting with worsening SOB aggravated with laying flat and exertion; saturating well on room air -EKG from this AM shows A fib, rates have been on the lower side -afebrile with no leukocytosis, TSH normal, no prior history of A fib -CT chest negative for PE; no consolidation or effusion -serial CMs negative -EKG: no ischemic changes noted, EKG shows A fib; intermittent a fib on tele monitor as well -BNP normal -Cardiology consulted, appreciate recs -TTE: no wall motion abnormalities, EF 60-65% -Patient to undergo a stress test on Wednesday BILATERAL LE SWELLING: -s/p LE vascular surgery 10/02/16 -bilateral LE venous and arterial US negative for thrombus -monitor -lasix ordered per Cardio ABDOMINAL PAIN: -abd pain and distention -CT abd/pelvis with contrast to be done to rule any retroperitoneal hematoma/ bleed ANEMIA: -Hb 9.7-->8.4-->8.5 -likely due to blood loss from recent vascular surgery; anemia workup underway per Cardio given that patient will need terminal clerk anticoagulation -monitor closely especially given patient is on IV heparin -no bleeding noted -check FOBT PULMONARY NODULES: SEEN ON CT -CT chest + 3 mm and 5 mm left upper lobe pulmonary nodules -obtain f/u CT in 6-12 months PVD: -s/p bilateral LE endarterectomy and iliac stent placement 10/02/16 -lifelong smoker; quit 1 week ago -continue ASA, Plavix and statin -monitor DEPRESSION: -stable -continue Celexa GERD: -continue Protonix and ranitidine HTN: -BP stable -continue clonidine and Norvasc; metoprolol stopped -monitor -BP lower today, also orthostatic, place hold parameters on BP meds DYSLIPIDEMIA: -continue statin Current Inpatient Medications: Current Inpatient Medications Medications (Trade) Dose Ordered Sig/Rosa Route Start Time Stop Time Status Last Admin Dose Admin Ioversol (Optiray 320) 111 ml UD PRN IV 10/08/16 17:15 10/12/16 17:14 Acetaminophen (Tylenol Tab) 650 mg Q4H PRN PO 10/08/16 18:45 11/07/16 18:44 Ondansetron HCl (Zofran Inj) 4 mg Q6H PRN IV 10/08/16 18:45 11/07/16 18:44 Nitroglycerin (Nitrostat Tab) 0.4 mg UD PRN SL 10/08/16 18:45 11/07/16 18:44 Aspirin (Ecotrin Tab) 81 mg DAILY PO 10/09/16 09:00 11/08/16 08:59 10/10/16 07:36 81 MG Atorvastatin Calcium (Lipitor Tab) 80 mg HS PO 10/08/16 21:00 11/07/16 20:59 10/09/16 20:25 80 MG Clopidogrel Bisulfate (plAVix TAB) 75 mg DAILY PO 10/09/16 09:00 11/08/16 08:59 10/10/16 07:37 75 MG Fluoxetine HCl (Prozac Cap) 20 mg DAILY PO 10/09/16 09:00 11/08/16 08:59 10/10/16 07:35 20 MG Gabapentin (Neurontin Cap) 300 mg TID PO 10/08/16 21:00 11/07/16 20:59 10/10/16 13:12 300 MG Pantoprazole Sodium (Protonix Tab) 40 mg DAILY PO 10/09/16 09:00 11/08/16 08:59 10/10/16 07:35 40 MG Trazodone HCl (Desyrel Tab) 50 mg HS PRN PO 10/08/16 18:45 11/07/16 18:44 Ranitidine HCl (zANTac TAB) 300 mg HS PO 10/08/16 21:00 11/07/16 20:59 10/09/16 20:25 300 MG Miscellaneous 1 ea 1 ea PRN PRN N/A 10/08/16 21:00 10/08/17 20:59 Heparin Sodium/ Dextrose (Heparin 25,000 Unit/500ml D5W) 500 ml @ 24 mls/hr [id number] PRN IV 10/08/16 21:30 11/07/16 21:29 10/09/16 20:16 24 MLS/HR Polyethylene (Miralax Powder Packet) 17 gm DAILY PRN PO 10/09/16 15:45 10/11/16 09:00 10/09/16 20:35 17 GM Furosemide (Lasix tab) 20 mg QAM PO 10/11/16 09:00 11/10/16 08:59 Diphenhydramine HCl (Benadryl Cap) 25 mg Q8 PRN PO 10/10/16 10:45 11/09/16 10:44 10/10/16 11:31 25 MG Amlodipine Besylate (Norvasc Tab) 5 mg DAILY PO 10/11/16 09:00 Acetaminophen/ Hydrocodone Bitart (Scuddy 5/325 Tab) 2 tab Q6 PRN PO 10/10/16 11:15 10/24/16 11:14 10/10/16 12:22 2 TAB Clonidine HCl (Catapres Tab) 0.1 mg BID PO 10/10/16 21:00 11/09/16 20:59 Polyethylene (Miralax Powder Packet) 17 gm BID PO 10/10/16 21:00 11/09/16 20:59
[2016-10-10] MEDS ORDERED: OPTIRAY 320 IV PRN (17:45)
--- NOTE | 2016-10-10 18:26 | DIAGNOSTIC IMAGING REPORT ---
CT ABD/PELVIS IV AND ORAL CONT CLINICAL HISTORY: LLQ pain, eval for hematoma, recent groin surgery COMPARISON STUDY: 10/08/2016 TECHNIQUE: Following the IV administration of 116 mL of Optiray-320, CT scan of the abdomen and pelvis was performed from the lung bases to the proximal femurs. Images are reviewed in the axial, sagittal, and coronal planes. IV contrast was administered without complication. CT DOSE: 617.84 mGy.cm FINDINGS: Lower chest: There are minor basilar atelectatic changes Liver: The contrast-enhanced liver is normal in size, contour, and attenuation. There is no intrahepatic biliary ductal dilatation. The hepatic veins and portal veins are patent. Gallbladder: Contracted with borderline gallbladder wall thickening Spleen: Normal in size and attenuation. Pancreas: Unremarkable. Adrenal glands: There are persistent left adrenal gland nodules the largest of which measures 29 mm. These were previously demonstrated to represent adenomas. Kidneys: There is symmetric renal cortical enhancement. The kidneys are normal in size without hydronephrosis. Bowel: There are no transition zones indicate bowel obstruction. There is colonic diverticulosis. There are no acute peridiverticular inflammatory changes. The appendix is not visualized with certainty. There are no findings to indicate acute appendicitis. Peritoneum: There is no intraperitoneal free air or abdominal ascites. Vasculature: There are aortoiliac stent grafts present. Adenopathy: There are mildly prominent common femoral lymph nodes, likely reactive. Pelvic viscera: There is air within the bladder, likely secondary to prior instrumentation. There is infiltration of the fat surrounding both inguinal regions. This likely relates to recent vascular surgery. No large hematomas are visualized. There are bilateral inguinal skin neto. Skeletal structures: No destructive osseous lesions are seen. IMPRESSION: 1. No evidence of bowel obstruction. No evidence of free air 2. Left adrenal adenomas 3. Aortoiliac stent grafts 4. Infiltration of the fat involving both inguinal regions. The findings are likely postsurgical. There is also mild anterior abdominal wall skin thickening with mild subcutaneous edema. A cellulitis cannot be excluded. 5. No evidence of retroperitoneal hematoma 6. Mildly prominent common femoral and inguinal lymph nodes nodes, likely reactive 7. Air within the bladder, likely iatrogenic Electronically signed by: Greg Moreira M.D. 10/10/2016 6:24 PM Dictated Date/Time: 10/10/2016 6:17 PM
[2016-10-10] MEDS: HEPARIN 25,000 UNIT/500ML D5W 500 ML IV PRN (18:53)
[2016-10-10] MEDS: RANITIDINE HCL 150 MG TAB PO SCH (20:51)
[2016-10-10] MEDS: ATORVASTATIN 40 MG TAB PO SCH (20:51)
[2016-10-10] MEDS: POLYETHYLENE (MIRALAX) 17 GM PACK PO SCH (20:53)
[2016-10-10] MEDS ORDERED: CLONIDINE HCL 0.1 MG TAB PO SCH (21:00)
[2016-10-11] MEDS: HYDROCODONE/ACETAMOPHEN 5/325MG TAB PO PRN ×3 (00:23→13:11)
[2016-10-11 03:58] VITALS: BP 128/84; PULSE 60; TEMP 36.7; O2SAT 98
[2016-10-11 04:59] LABS: PARTIAL THROMBOPLASTIN RATIO 2.6
[2016-10-11] MEDS: HEPARIN 25,000 UNIT/500ML D5W 500 ML IV PRN ×2 (05:21→14:57)
[2016-10-11 07:50] VITALS: BP 113/74; PULSE 63; TEMP 36.5; O2SAT 95
[2016-10-11] MEDS: CLONIDINE HCL 0.1 MG TAB PO SCH ×2 (07:51→20:04)
[2016-10-11] MEDS: CLOPIDOGREL BISULFATE 75 MG TAB PO SCH (07:54)
[2016-10-11] MEDS: FLUOXETINE HCL 20 MG CAP PO SCH (07:54)
[2016-10-11] MEDS: PANTOprazole SOD 40 MG TAB PO SCH (07:55)
[2016-10-11] MEDS: GABAPENTIN 300 MG CAP PO SCH ×3 (07:55→20:04)
[2016-10-11] MEDS: AMLODIPINE BESYLATE 5 MG TAB PO SCH (07:56)
[2016-10-11] MEDS: FUROSEMIDE 20 MG TAB PO SCH (07:57)
[2016-10-11] MEDS: ASPIRIN 81 MG ECTAB PO SCH (07:57)
[2016-10-11] MEDS: POLYETHYLENE (MIRALAX) 17 GM PACK PO SCH ×2 (07:58→19:58)
[2016-10-11 10:41] LABS: HEMATOCRIT 26.3 % (37-47); MEAN CELL VOLUME 93.6 fL (80-100); MEAN CORPUSCULAR HEMOGLOBIN 32.4 pg (25-34); MEAN CORPUSCULAR HGB CONC 34.6 g/dl (32-36); MEAN PLATELET VOLUME 11.2 fL (7.4-10.4); PLATELET COUNT 238 K/uL (130-400); RED BLOOD COUNT 2.81 M/uL (4.2-5.4); WHITE BLOOD COUNT 7.37 K/uL (4.8-10.8)
[2016-10-11 11:06] LABS: BUN/CREATININE RATIO 9.3 (10-20); CALCIUM 8.5 mg/dl (8.5-10.1); CREATININE 0.84 mg/dl (0.60-1.20); POTASSIUM 4.1 mmol/L (3.5-5.1)
--- NOTE | 2016-10-11 11:46 | PROGRESS NOTE ---
DATE: 10/11/2016 SUBJECTIVE: The patient is a 56-year-old female with history of peripheral vascular disease and recent stents placed in her lower extremities. She still has neto in her groin area and was scheduled to have a followup visit with her vascular surgeon tomorrow. We will have to check with him to see if they need the neto removed prior to her discharge. She has no complaints this morning. She states that her shortness of breath has markedly improved as well as her lower extremity edema. On the telemetry, she is mostly in a sinus rhythm but does have short runs of atrial fibrillation. Her anemia workup suggests that she may have lost some blood during her recent procedures and is now recovering. At this point, we will start her on warfarin. We will have to be careful with her dual antiplatelet therapy and the addition of anticoagulation. OBJECTIVE: GENERAL: She is alert and oriented in no acute distress. VITAL SIGNS: Blood pressure is 110/70. Pulse is regular at 63. She is afebrile. HEENT: She is normocephalic. Pupils are equal and reactive to light. Extraocular muscles are intact bilaterally. NECK: The neck veins are flat. Carotids have good upstrokes bilaterally without bruits. Thyroid is nonpalpable. RESPIRATORY: Breath sounds equal bilaterally and clear to auscultation. CARDIOVASCULAR: Heart has a regular rhythm. Normal S1, S2. No S3 or S4. No cardiac rubs or murmurs. GASTROINTESTINAL: Abdomen is soft, nontender without organomegaly. EXTREMITIES: Free of edema, digit clubbing, or cyanosis. NEUROLOGIC: Grossly intact. SKIN: Warm to touch. LYMPH NODES: Negative to palpation. LABORATORY DATA: Hemoglobin is 9.1, creatinine is 0.84. Potassium is 4.1. IMPRESSION: 1. cardiovascular disease. 2. Recent stent placement lower extremities at [facility] on dual antiplatelet therapy. 3. Paroxysmal atrial fibrillation. 4. Rule out ischemic heart disease. RECOMMENDATIONS: As outlined above, the patient will be started on warfarin today. She is scheduled to undergo a pharmacologic nuclear stress test tomorrow to screen her for ischemic heart disease. We will need to check with the surgeons to see if the neto need to be removed from her groin prior to discharge. CHRIS
[2016-10-11 11:55] VITALS: BP 126/78; PULSE 64; TEMP 36.7; O2SAT 97
[2016-10-11] MEDS: WARFARIN SOD 5 MG TAB PO SCH (15:30)
[2016-10-11 16:02] VITALS: BP 118/72; PULSE 68; TEMP 36.5; O2SAT 99
[2016-10-11] MEDS: OXYCODONE/ACETAMINOPHEN 7.5-325 TAB PO PRN ×2 (16:04→22:14)
[2016-10-11] MEDS: CEPHALEXIN MONOHYDRATE 500 MG CAP PO SCH ×2 (16:13→20:03)
--- NOTE | 2016-10-11 19:20 | Progress Note ---
Medicine Progress Note Date & Time of Visit: Oct 11, 2016 at 19:19. Subjective Patient reports her pain is not well controlled and wants to go back on percocet. No overnight events noted. Still reports being constipated but has had small BMs. Left incision site has been more pruritic and patient has been noted by staff to be rubbing and contacting the incision site on multiple occasions. No bleeding noted. Tolerating PO. Objective Last 8 Hrs Date Time Temp Pulse Resp B/P Pulse Ox O2 Delivery O2 Flow Rate FiO2 10/11/16 16:02 36.5 68 20 118/72 99 Room Air 10/11/16 16:00 Room Air 10/11/16 12:00 Room Air 10/11/16 11:55 36.7 64 20 126/78 97 Room Air Physical Exam: GENERAL: Patient is in no acute distress. HEENT: No acute trauma, normocephalic, mucous membranes moist, no nasal congestion, no scleral icterus. NECK: No stridor, trachea is midline. LUNGS: Diminished bases bilaterally, no wheeze, no rhonchi, breath sounds equal. HEART: Without murmurs gallops or rubs, irregularly irregular ABDOMEN: Soft, tender LLQ, bowel sounds positive EXTREMITIES: No cyanosis; B/L LE with trace edema; bilateral groin with intact incisions and neto, no drainage or erythema noted NEUROLOGIC: Oriented, no acute motor or sensory deficits, no focal weakness. SKIN: No rash, no jaundice, no diaphoresis. Laboratory Results: Last 24 Hours Test 10/11/16 04:24 10/11/16 10:25 Activated Partial Thromboplast Time 67.9 SECONDS Partial Thromboplastin Ratio 2.6 White Blood Count 7.37 K/uL Red Blood Count 2.81 M/uL Hemoglobin 9.1 g/dL Hematocrit 26.3 % Mean Corpuscular Volume 93.6 fL Mean Corpuscular Hemoglobin 32.4 pg Mean Corpuscular Hemoglobin Concent 34.6 g/dl RDW Standard Deviation 47.5 fL RDW Coefficient of Variation 14.0 % Platelet Count 238 K/uL Mean Platelet Volume 11.2 fL Sodium Level 136 mmol/L Potassium Level 4.1 mmol/L Chloride Level 99 mmol/L Carbon Dioxide Level 26 mmol/L Anion Gap 11.0 mmol/L Blood Urea Nitrogen 8 mg/dl Creatinine 0.84 mg/dl Est Creatinine Clear Calc Drug Dose 72.2 ml/min Estimated GFR () 90.0 Estimated GFR (Non- 77.7 BUN/Creatinine Ratio 9.3 Random Glucose 86 mg/dl Calcium Level 8.5 mg/dl Assessment & Plan WORSENING SOB/CHEST TIGHTNESS/NEW ONSET PAF: -presenting with worsening SOB aggravated with laying flat and exertion; saturating well on room air -EKG from this AM shows A fib, rates have been on the lower side -afebrile with no leukocytosis, TSH normal, no prior history of A fib -CT chest negative for PE; no consolidation or effusion -serial CMs negative -EKG: no ischemic changes noted, EKG shows A fib; intermittent a fib on tele monitor as well -BNP normal -Cardiology consulted, appreciate recs -TTE: no wall motion abnormalities, EF 60-65% -Patient to undergo a stress test tomorrow -patient was started on coumadin today and remains on heparin IV to bridge BILATERAL LE SWELLING: -s/p LE vascular surgery 10/02/16 -bilateral LE venous and arterial US negative for thrombus -monitor -lasix ordered per Cardio ABDOMINAL PAIN: -abd pain and distention -CT abd/pelvis with contrast to be done to rule any retroperitoneal hematoma/ bleed ANEMIA: -Hb 9.7-->8.4-->8.5-->9.1 -likely due to blood loss from recent vascular surgery; anemia workup underway per Cardio given that patient will need snf anticoagulation -monitor closely especially given patient is on IV heparin -no bleeding noted -check FOBT PULMONARY NODULES: SEEN ON CT -CT chest + 3 mm and 5 mm left upper lobe pulmonary nodules -obtain f/u CT in 6-12 months PVD: -s/p bilateral LE endarterectomy and iliac stent placement 10/02/16 -lifelong smoker; quit 1 week ago -continue ASA, Plavix and statin -monitor DEPRESSION: -stable -continue Celexa GERD: -continue Protonix and ranitidine HTN: -BP stable -continue clonidine and Norvasc; metoprolol stopped -monitor -BP lower, was orthostatic, placed hold parameters on BP meds and lowered doses of clonidine and norvasc DYSLIPIDEMIA: -continue statin Current Inpatient Medications: Current Inpatient Medications Medications (Trade) Dose Ordered Sig/Rosa Route Start Time Stop Time Status Last Admin Dose Admin Ioversol (Optiray 320) 111 ml UD PRN IV 10/08/16 17:15 10/12/16 17:14 Acetaminophen (Tylenol Tab) 650 mg Q4H PRN PO 10/08/16 18:45 11/07/16 18:44 Ondansetron HCl (Zofran Inj) 4 mg Q6H PRN IV 10/08/16 18:45 11/07/16 18:44 Nitroglycerin (Nitrostat Tab) 0.4 mg UD PRN SL 10/08/16 18:45 11/07/16 18:44 Aspirin (Ecotrin Tab) 81 mg DAILY PO 10/09/16 09:00 11/08/16 08:59 10/11/16 07:57 81 MG Atorvastatin Calcium (Lipitor Tab) 80 mg HS PO 10/08/16 21:00 11/07/16 20:59 10/10/16 20:51 80 MG Clopidogrel Bisulfate (plAVix TAB) 75 mg DAILY PO 10/09/16 09:00 11/08/16 08:59 10/11/16 07:54 75 MG Fluoxetine HCl (Prozac Cap) 20 mg DAILY PO 10/09/16 09:00 11/08/16 08:59 10/11/16 07:54 20 MG Gabapentin (Neurontin Cap) 300 mg TID PO 10/08/16 21:00 11/07/16 20:59 10/11/16 13:10 300 MG Pantoprazole Sodium (Protonix Tab) 40 mg DAILY PO 10/09/16 09:00 11/08/16 08:59 10/11/16 07:55 40 MG Trazodone HCl (Desyrel Tab) 50 mg HS PRN PO 10/08/16 18:45 11/07/16 18:44 Ranitidine HCl (zANTac TAB) 300 mg HS PO 10/08/16 21:00 11/07/16 20:59 10/10/16 20:51 300 MG Miscellaneous 1 ea 1 ea PRN PRN N/A 10/08/16 21:00 10/08/17 20:59 Heparin Sodium/ Dextrose (Heparin 25,000 Unit/500ml D5W) 500 ml @ 24 mls/hr [id number] PRN IV 10/08/16 21:30 11/07/16 21:29 10/11/16 14:57 24 MLS/HR Furosemide (Lasix tab) 20 mg QAM PO 10/11/16 09:00 11/10/16 08:59 10/11/16 07:57 20 MG Diphenhydramine HCl (Benadryl Cap) 25 mg Q8 PRN PO 10/10/16 10:45 11/09/16 10:44 10/11/16 08:02 25 MG Amlodipine Besylate (Norvasc Tab) 5 mg DAILY PO 10/11/16 09:00 10/11/16 07:56 5 MG Clonidine HCl (Catapres Tab) 0.1 mg BID PO 10/10/16 21:00 11/09/16 20:59 10/10/16 21:17 0.1 MG Polyethylene (Miralax Powder Packet) 17 gm BID PO 10/10/16 21:00 11/09/16 20:59 10/11/16 07:58 17 GM Ioversol (Optiray 320) 125 ml UD PRN IV 10/10/16 17:45 10/14/16 17:44 Warfarin Sodium (Coumadin Tab) 5 mg DAILY@16 PO 10/11/16 16:00 11/10/16 15:59 10/11/16 15:30 5 MG Oxycodone/ Acetaminophen (Percocet 7.5-325MG Tab) 1 tab Q6H PRN PO 10/11/16 15:15 10/25/16 15:14 10/11/16 16:04 1 TAB Docusate Sodium (coLACE CAP) 100 mg BID PO 10/11/16 21:00 11/10/16 20:59 Cephalexin Monohydrate (Keflex Cap) 500 mg QID PO 10/11/16 17:00 10/21/16 16:59 10/11/16 16:13 500 MG
[2016-10-11 19:41] VITALS: BP 166/76; PULSE 71; TEMP 36.7; O2SAT 96
[2016-10-11 19:48] VITALS: BP 113/73; PULSE 71; TEMP 36.7; O2SAT 95
[2016-10-11] MEDS: RANITIDINE HCL 150 MG TAB PO SCH (20:02)
[2016-10-11] MEDS: ATORVASTATIN 40 MG TAB PO SCH (20:02)
[2016-10-11] MEDS: DOCUSATE SODIUM 100 MG CAP PO SCH (20:03)
[2016-10-12] VITALS (10 sets, daily range): BP systolic 104–136; BP diastolic 65–85; PULSE 66–78; TEMP 36.3–36.9; O2SAT 95–100
[2016-10-12] MEDS: OXYCODONE/ACETAMINOPHEN 7.5-325 TAB PO PRN ×3 (04:55→18:39)
[2016-10-12 05:07] LABS: HEMATOCRIT 26.7 % (37-47); MEAN CORPUSCULAR HEMOGLOBIN 32.4 pg (25-34); PLATELET COUNT 257 K/uL (130-400); RED BLOOD COUNT 2.81 M/uL (4.2-5.4); WHITE BLOOD COUNT 7.54 K/uL (4.8-10.8)
[2016-10-12 05:28] LABS: MEAN CORPUSCULAR HGB CONC 34.1 g/dl (32-36)
[2016-10-12 05:29] LABS: INR 0.9 (0.9-1.1); PARTIAL THROMBOPLASTIN RATIO 2.1; PROTHROMBIN TIME (PATIENT) 10.1 SECONDS (9.0-12.0)
[2016-10-12] MEDS: DOCUSATE SODIUM 100 MG CAP PO SCH ×2 (07:53→21:27)
[2016-10-12] MEDS: ASPIRIN 81 MG ECTAB PO SCH (07:53)
[2016-10-12] MEDS: CEPHALEXIN MONOHYDRATE 500 MG CAP PO SCH ×3 (07:54→16:39)
[2016-10-12] MEDS: CLOPIDOGREL BISULFATE 75 MG TAB PO SCH (07:55)
[2016-10-12] MEDS: GABAPENTIN 300 MG CAP PO SCH ×3 (07:56→21:27)
[2016-10-12] MEDS: FLUOXETINE HCL 20 MG CAP PO SCH (07:56)
[2016-10-12] MEDS: PANTOprazole SOD 40 MG TAB PO SCH (07:57)
[2016-10-12] MEDS: AMLODIPINE BESYLATE 5 MG TAB PO SCH (08:06)
[2016-10-12] MEDS: CLONIDINE HCL 0.1 MG TAB PO SCH ×2 (08:06→21:27)
--- NOTE | 2016-10-12 09:43 | Cardiology Follow-Up ---
Subjective General Date of Service: Oct 12, 2016. Chief Complaint: left groin pain, follow up shortness of breath, chest tightness, PAF Pt evaluation today including: conversation w/ patient, physical exam History of Present Illness The patient is a 56 year old female seen in follow-up with initial consultation having been performed by Dr. Martniez earlier this hospital stay. The patient was seen and examined in room 221-1 on the telemetry floor. Her chief complaint this morning his left groin pain. She states her shortness of breath is improved. She has an ongoing complaint of "chest tightness "which she describes as being mild. This is been a complaint that has been present for months and is not new since her recent peripheral arterial disease or new this admission. Serial troponin levels have been negative thus far this admission. Her last EKG revealed sinus bradycardia with poor R-wave progression but no ST segment changes. Her shortness of breath was much improved. CT of the abdomen and pelvis performed 10/10/16 revealed post operative changes to bilateral iliac areas, with no definite findings to suggest infection. Allergies Coded Allergies: Adhesives (Verified Allergy, Mild, 10/08/16) Guanfacine (Verified Allergy, Unknown, 10/08/16) Nifedipine (Verified Allergy, Unknown, 10/08/16) Social History Smoking Status: Current Every Day Smoker Hx Tobacco Use In Past Year?: Yes Hx Alcohol Use - Type And Amou: Yes (12-36 oz beer daily) Hx Substance Use - Type And Am: No Problem List Medical Problems: (1) Lower extremity edema Status: Acute Physical Exam Vital Signs Last Vital Signs Documentation Date Time Temp Pulse Resp B/P Pulse Ox O2 Delivery O2 Flow Rate FiO2 10/12/16 07:58 36.8 72 22 135/84 98 Room Air Physical Exam Constitutional: Level of Distress: NAD Neck: supple Lungs: Auscultation: no wheezing, no rales/crackles Cardiovascular: Heart Auscultation: RRR, no murmurs Extremities: no cyanosis, no varicosities Neurologic: Gait & Station: pertinent finding (no focal deficits) Assessment and Plan Assessment and Plan Last Resulted 10/12/16 04:50 Last Resulted 10/11/16 10:25 Past 24 Hours Test 10/12/16 04:58 Range/Units Prothromb Time International Ratio 0.9 0.9-1.1 Prothrombin Time 10.1 9.0-12.0 SECONDS Impression: 56-year-old female 1. Pain at her left femoral incision site, perhaps postprocedure neuralgia from mild swelling, no definite clinical signs of underlying abscess, no leukocytosis, no fever, no abscess pocket seen on CT 2 2. Chest tightness, chronic per her description, negative enzymes, proceed with pharmacologic stress testing today as planned 3. Lower extremity edema, abdominal fullness, perhaps post reperfusion edema, acute diastolic heart failure perhaps less likely given relatively low BNP 4. Newly diagnosed paroxysmal atrial fibrillation, CHADSVASC score of at lest 2 given female and history of PAD predicting moderate risk for cardioembolic stroke and therefore anticoagulation is the most ideal treatment 5. Peripheral arterial disease, status post recent bilateral common femoral endarterectomy, by lateral common/external iliac artery angioplasty and stenting 6. Chronic anemia 7. Cigarette smoking, ceased within the last week 8. History of dyslipidemia Recommendations/ plan: Continue aspirin plus clopidogrel for PAD. Hold heparin for planned stress test today, patient is in sinus rhythm at present on telemetry. Coumadin initiation has been initiated, will determine if Coumadin will be continued today pending stress test results, if there is a high ischemic burden , many cardiac catheterization and therefore anticoagulation will have to be delayed. She is of course at an increased risk of bleeding complication given therapy with aspirin plus clopidogrel plus Coumadin, but her risk of cardiac embolic stroke is also significant, and she requires total and a platelet therapy given her recent peripheral arterial intervention. I discussed her left groin pain with Dr. Mcfarland of [facility] vascular surgery who is actually to see her in outpatient follow-up today. He recommended close outpatient follow-up, the lack of fever and lack of leukocytosis reassuring, continue oral Keflex. Marbella Kinsey, Laboratory Results Last 24 Hours Test 10/11/16 10:25 10/12/16 04:50 10/12/16 04:58 White Blood Count 7.37 K/uL 7.54 K/uL Red Blood Count 2.81 M/uL 2.81 M/uL Hemoglobin 9.1 g/dL 9.1 g/dL Hematocrit 26.3 % 26.7 % Mean Corpuscular Volume 93.6 fL 95.0 fL Mean Corpuscular Hemoglobin 32.4 pg 32.4 pg Mean Corpuscular Hemoglobin Concent 34.6 g/dl 34.1 g/dl RDW Standard Deviation 47.5 fL 48.3 fL RDW Coefficient of Variation 14.0 % 14.1 % Platelet Count 238 K/uL 257 K/uL Mean Platelet Volume 11.2 fL 11.0 fL Sodium Level 136 mmol/L Potassium Level 4.1 mmol/L Chloride Level 99 mmol/L Carbon Dioxide Level 26 mmol/L Anion Gap 11.0 mmol/L Blood Urea Nitrogen 8 mg/dl Creatinine 0.84 mg/dl Est Creatinine Clear Calc Drug Dose 72.2 ml/min Estimated GFR () 90.0 Estimated GFR (Non- 77.7 BUN/Creatinine Ratio 9.3 Random Glucose 86 mg/dl Calcium Level 8.5 mg/dl Prothrombin Time 10.1 SECONDS Prothromb Time International Ratio 0.9 Activated Partial Thromboplast Time 55.8 SECONDS Partial Thromboplastin Ratio 2.1
[2016-10-12] MEDS: FUROSEMIDE 20 MG TAB PO SCH (12:50)
[2016-10-12] MEDS ORDERED: POLYETHYLENE (MIRALAX) 17 GM PACK ONE (12:51)
[2016-10-12] MEDS: POLYETHYLENE (MIRALAX) 17 GM PACK PO SCH ×2 (13:05→21:21)
--- NOTE | 2016-10-12 14:09 | MYOCARDIAL PERFUSION SCAN ---
ORDERING PROVIDER: Dr. Martinez. INTERPRETING PROVIDER: Dr. Kinsey. INDICATION: Chest tightness with risk factors for coronary artery disease. TECHNIQUE: For the stress portion of the study 30.9 mCi of technetium-99m Cardiolite IV was injected at 11:35 a.m. on 08/12/2017. Thirty minutes following the injection, imaging of the heart was performed in multiple projections. For the rest portion of the study, 10.3 mCi of technetium-99m Cardiolite was injected at 9:40 a.m. One hour after the injection, imaging of the heart was performed in the same projections. HEMODYNAMIC DATA: The patient received 0.4 mg of Lexiscan intravenously. The resting heart rate was 63 beats per minute raymond to a maximum heart rate of 88 beats per minute. This slightly represents 53% of the maximal age predicted heart rate. The resting blood pressure of 147/75 mmHg raymond to a maximum blood pressure of 147/75 mmHg. The stress test was terminated due to completion of the planned pharmacologic protocol. The patient described shortness of breath with Lexiscan administration, which resolved completely in the post-pharmacologic stress recovery interval. EKG FINDINGS: The resting EKG revealed sinus rhythm at 62 beats per minute with occasional PVCs. Resting EKG was unchanged with no new ST segment changes. Occasional PVCs were noted during the pharmacologic stress. PERFUSION DATA: The stress SPECT images revealed normal perfusion throughout the myocardium. The resting SPECT images were unchanged with normal perfusion. Gated images revealed normal left ventricular wall motion. The calculated left ventricular ejection fraction was normal, over 70%. IMPRESSION: 1. Normal Lexiscan pharmacologic nuclear stress test with no evidence of resting or inducible ischemia. 2. The gated wall motion was normal, calculated left ventricular ejection fraction greater than 70%. [facility]
--- NOTE | 2016-10-12 14:28 | Cardiology Progress Note ---
Cardiology Progress Note Stress test was negative for ischemia. Pt in SR. Will DC heparin. Continue loading oral coumadin as inpatient. Check CBC, BMP, and INR in am 10/13/16.
[2016-10-12] MEDS: WARFARIN SOD 5 MG TAB PO SCH (16:39)
--- NOTE | 2016-10-12 17:50 | Progress Note ---
Medicine Progress Note Date & Time of Visit: Oct 12, 2016 at 17:50. Subjective Patient reports left groin pain to be more tender. No overnight events noted. Patient still reports LLQ abdominal pain. Has been moving bowels without difficulty. Tolerating more activity today and has been up ambulating more. Objective Last 8 Hrs Date Time Temp Pulse Resp B/P Pulse Ox O2 Delivery O2 Flow Rate FiO2 10/12/16 16:00 96 Room Air 10/12/16 15:51 36.9 71 20 104/65 98 Room Air 10/12/16 13:18 36.3 66 22 122/72 100 Room Air 10/12/16 12:00 95 Room Air Physical Exam: GENERAL: Patient is in no acute distress. HEENT: No acute trauma, normocephalic, mucous membranes moist, no nasal congestion, no scleral icterus. NECK: No stridor, trachea is midline. LUNGS: Diminished bases bilaterally, no wheeze, no rhonchi, breath sounds equal. HEART: Without murmurs gallops or rubs, irregularly irregular ABDOMEN: Soft, tender LLQ, bowel sounds positive EXTREMITIES: No cyanosis; B/L LE with trace edema; bilateral groin with intact incisions and neto, Left groin with scant clear drainage and erythema noted + warmth NEUROLOGIC: Oriented, no acute motor or sensory deficits, no focal weakness. SKIN: No rash, no jaundice, no diaphoresis. Laboratory Results: Last 24 Hours Test 10/12/16 04:50 10/12/16 04:58 10/12/16 15:30 White Blood Count 7.54 K/uL Red Blood Count 2.81 M/uL Hemoglobin 9.1 g/dL Hematocrit 26.7 % Mean Corpuscular Volume 95.0 fL Mean Corpuscular Hemoglobin 32.4 pg Mean Corpuscular Hemoglobin Concent 34.1 g/dl RDW Standard Deviation 48.3 fL RDW Coefficient of Variation 14.1 % Platelet Count 257 K/uL Mean Platelet Volume 11.0 fL Prothrombin Time 10.1 SECONDS Prothromb Time International Ratio 0.9 Activated Partial Thromboplast Time 55.8 SECONDS Partial Thromboplastin Ratio 2.1 Assessment & Plan WORSENING SOB/CHEST TIGHTNESS/NEW ONSET PAF: -presenting with worsening SOB aggravated with laying flat and exertion; saturating well on room air -EKG showed A fib, rates have been on the lower side -afebrile with no leukocytosis, TSH normal, no prior history of A fib -CT chest negative for PE; no consolidation or effusion -serial CMs negative -EKG: no ischemic changes noted, EKG shows A fib; intermittent a fib on tele monitor as well -BNP normal -Cardiology consulted, appreciate recs -TTE: no wall motion abnormalities, EF 60-65% -patient was started on coumadin, INR subtherapeutic -heparin IV stopped -stress test today was negative BILATERAL LE SWELLING: -s/p LE vascular surgery 10/02/16 -bilateral LE venous and arterial US negative for thrombus -monitor -lasix ordered per Cardio -antibiotics started yesterday, keflex, however changed to doxycycline IV for while the patient is in the hospital -patient missed her vascular surgery appt today and will need to have it rescheduled to follow up with vascular this week ABDOMINAL PAIN: -abd pain and distention -CT abd/pelvis with contrast done to rule out any retroperitoneal hematoma/bleed ; no evidence of bleeding but possible developing cellulitis in left groin ANEMIA: -Hb 9.7-->8.4-->8.5-->9.1 -likely due to blood loss from recent vascular surgery; anemia workup underway per Cardio given that patient will need detention anticoagulation -monitor closely especially given patient is on anticoagulation -no bleeding noted -FOBT pending PULMONARY NODULES: SEEN ON CT -CT chest + 3 mm and 5 mm left upper lobe pulmonary nodules -obtain f/u CT in 6-12 months PVD: -s/p bilateral LE endarterectomy and iliac stent placement 10/02/16 -lifelong smoker; quit 1 week ago -continue ASA, Plavix and statin -monitor DEPRESSION: -stable -continue Celexa GERD: -continue Protonix and ranitidine HTN: -BP stable -continue clonidine and Norvasc; metoprolol stopped -monitor -BP lower, was orthostatic, placed hold parameters on BP meds and lowered doses of clonidine and norvasc DYSLIPIDEMIA: -continue statin Current Inpatient Medications: Current Inpatient Medications Medications (Trade) Dose Ordered Sig/Rosa Route Start Time Stop Time Status Last Admin Dose Admin Acetaminophen (Tylenol Tab) 650 mg Q4H PRN PO 10/08/16 18:45 11/07/16 18:44 Ondansetron HCl (Zofran Inj) 4 mg Q6H PRN IV 10/08/16 18:45 11/07/16 18:44 Nitroglycerin (Nitrostat Tab) 0.4 mg UD PRN SL 10/08/16 18:45 11/07/16 18:44 Aspirin (Ecotrin Tab) 81 mg DAILY PO 10/09/16 09:00 11/08/16 08:59 10/12/16 07:53 81 MG Atorvastatin Calcium (Lipitor Tab) 80 mg HS PO 10/08/16 21:00 11/07/16 20:59 10/11/16 20:02 80 MG Clopidogrel Bisulfate (plAVix TAB) 75 mg DAILY PO 10/09/16 09:00 11/08/16 08:59 10/12/16 07:55 75 MG Fluoxetine HCl (Prozac Cap) 20 mg DAILY PO 10/09/16 09:00 11/08/16 08:59 10/12/16 07:56 20 MG Gabapentin (Neurontin Cap) 300 mg TID PO 10/08/16 21:00 11/07/16 20:59 10/12/16 13:42 300 MG Pantoprazole Sodium (Protonix Tab) 40 mg DAILY PO 10/09/16 09:00 11/08/16 08:59 10/12/16 07:57 40 MG Trazodone HCl (Desyrel Tab) 50 mg HS PRN PO 10/08/16 18:45 11/07/16 18:44 Ranitidine HCl (zANTac TAB) 300 mg HS PO 10/08/16 21:00 11/07/16 20:59 10/11/16 20:02 300 MG Miscellaneous (Iv Fluids Completed) 1 ea PRN PRN N/A 10/08/16 21:00 10/08/17 20:59 Furosemide (Lasix tab) 20 mg QAM PO 10/11/16 09:00 11/10/16 08:59 10/12/16 12:50 20 MG Diphenhydramine HCl (Benadryl Cap) 25 mg Q8 PRN PO 10/10/16 10:45 11/09/16 10:44 10/12/16 13:42 25 MG Amlodipine Besylate (Norvasc Tab) 5 mg DAILY PO 10/11/16 09:00 10/12/16 08:06 5 MG Clonidine HCl (Catapres Tab) 0.1 mg BID PO 10/10/16 21:00 11/09/16 20:59 10/12/16 08:06 0.1 MG Polyethylene (Miralax Powder Packet) 17 gm BID PO 10/10/16 21:00 11/09/16 20:59 10/12/16 13:05 17 GM Ioversol (Optiray 320) 125 ml UD PRN IV 10/10/16 17:45 10/14/16 17:44 Warfarin Sodium (Coumadin Tab) 5 mg DAILY@16 PO 10/11/16 16:00 11/10/16 15:59 10/12/16 16:39 5 MG Oxycodone/ Acetaminophen (Percocet 7.5-325MG Tab) 1 tab Q6H PRN PO 10/11/16 15:15 10/25/16 15:14 10/12/16 12:49 1 TAB Docusate Sodium (coLACE CAP) 100 mg BID PO 10/11/16 21:00 11/10/16 20:59 10/12/16 07:53 100 MG Cephalexin Monohydrate (Keflex Cap) 500 mg QID PO 10/11/16 17:00 10/21/16 16:59 10/12/16 16:39 500 MG
[2016-10-12] MEDS: RANITIDINE HCL 150 MG TAB PO SCH (21:27)
[2016-10-12] MEDS: ATORVASTATIN 40 MG TAB PO SCH (21:28)
[2016-10-12] MEDS: DOXYCYCLINE IV 100 MG in DEXTROSE 5% 100ML 100 ML IV SCH (21:29)
[2016-10-13] VITALS (7 sets, daily range): BP systolic 121–136; BP diastolic 78–85; PULSE 55–91; TEMP 36.4–36.9; O2SAT 97–99
[2016-10-13] MEDS: OXYCODONE/ACETAMINOPHEN 7.5-325 TAB PO PRN ×4 (00:45→18:41)
[2016-10-13 07:00] LABS: HEMATOCRIT 29.5 % (37-47); MEAN CELL VOLUME 95.8 fL (80-100); MEAN CORPUSCULAR HEMOGLOBIN 32.8 pg (25-34); MEAN CORPUSCULAR HGB CONC 34.2 g/dl (32-36); MEAN PLATELET VOLUME 11.1 fL (7.4-10.4); PLATELET COUNT 298 K/uL (130-400); RED BLOOD COUNT 3.08 M/uL (4.2-5.4); WHITE BLOOD COUNT 7.66 K/uL (4.8-10.8)
[2016-10-13 07:22] LABS: INR 1.1 (0.9-1.1); PROTHROMBIN TIME (PATIENT) 11.5 SECONDS (9.0-12.0)
[2016-10-13 07:34] LABS: BUN/CREATININE RATIO 7.7 (10-20); CALCIUM 9.1 mg/dl (8.5-10.1); CREATININE 0.91 mg/dl (0.60-1.20); POTASSIUM 4.1 mmol/L (3.5-5.1)
[2016-10-13] MEDS: DOXYCYCLINE IV 100 MG in DEXTROSE 5% 100ML 100 ML IV SCH ×2 (08:53→21:07)
[2016-10-13] MEDS: DOCUSATE SODIUM 100 MG CAP PO SCH ×2 (08:53→20:47)
[2016-10-13] MEDS: CLOPIDOGREL BISULFATE 75 MG TAB PO SCH (08:53)
[2016-10-13] MEDS: ASPIRIN 81 MG ECTAB PO SCH (08:53)
[2016-10-13] MEDS: POLYETHYLENE (MIRALAX) 17 GM PACK PO SCH ×2 (08:54→20:47)
[2016-10-13] MEDS: FLUOXETINE HCL 20 MG CAP PO SCH (08:54)
[2016-10-13] MEDS: FUROSEMIDE 20 MG TAB PO SCH (08:54)
[2016-10-13] MEDS: CLONIDINE HCL 0.1 MG TAB PO SCH ×2 (08:54→20:46)
[2016-10-13] MEDS: AMLODIPINE BESYLATE 5 MG TAB PO SCH (08:55)
[2016-10-13] MEDS: PANTOprazole SOD 40 MG TAB PO SCH (08:55)
[2016-10-13] MEDS: GABAPENTIN 300 MG CAP PO SCH ×3 (08:55→20:47)
--- NOTE | 2016-10-13 11:24 | Progress Note ---
Medicine Progress Note Date & Time of Visit: Oct 13, 2016 at 11:14. Subjective patient seen resting in bed, comfortable, in good spirits denies chest pain, shortness of breath, dizziness, palpitations bilateral groin pain improving no leg pain denies other symptoms Objective Last 8 Hrs Date Time Temp Pulse Resp B/P Pulse Ox O2 Delivery O2 Flow Rate FiO2 10/13/16 08:30 Room Air 10/13/16 07:35 36.9 70 18 126/82 99 Room Air 10/13/16 04:00 97 Room Air 10/13/16 03:58 36.4 55 18 122/79 97 Room Air Physical Exam: General- oriented x 3, not in distress, speaks in sentences with no effort Head- atraumatic Eyes- EOMI, anicteric Neck- supple, no JVD Lungs- clear to auscultation bilaterally Heart- normal rate, regular rhythm; no murmurs Abdomen- normal bowel sounds, soft, nontender right groin: wound well opposed, neto intact, no discharge, no erythema/ warmth/tenderness left groin: wound well opposed, neto intact, no discharge, (+) mild surrounding erythema, (+) moderate tenderness, no edema/warmth Extremities- no pretibial edema, no calf tenderness; peripheral pulses intact Neuro- alert, oriented x 3; no gross focal deficits Skin- warm & dry Laboratory Results: Last 24 Hours Test 10/13/16 06:40 White Blood Count 7.66 K/uL Red Blood Count 3.08 M/uL Hemoglobin 10.1 g/dL Hematocrit 29.5 % Mean Corpuscular Volume 95.8 fL Mean Corpuscular Hemoglobin 32.8 pg Mean Corpuscular Hemoglobin Concent 34.2 g/dl RDW Standard Deviation 50.5 fL RDW Coefficient of Variation 14.5 % Platelet Count 298 K/uL Mean Platelet Volume 11.1 fL Prothrombin Time 11.5 SECONDS Prothromb Time International Ratio 1.1 Sodium Level 135 mmol/L Potassium Level 4.1 mmol/L Chloride Level 101 mmol/L Carbon Dioxide Level 26 mmol/L Anion Gap 8.0 mmol/L Blood Urea Nitrogen 7 mg/dl Creatinine 0.91 mg/dl Est Creatinine Clear Calc Drug Dose 65.9 ml/min Estimated GFR () 81.7 Estimated GFR (Non- 70.5 BUN/Creatinine Ratio 7.7 Random Glucose 83 mg/dl Calcium Level 9.1 mg/dl Assessment & Plan WORSENING SOB/CHEST TIGHTNESS/NEW ONSET PAF: -presenting with worsening SOB aggravated with laying flat and exertion; saturating well on room air -EKG showed A fib, rates have been on the lower side -CT chest negative for PE; no consolidation or effusion -serial CMs negative -EKG: no ischemic changes noted, EKG shows A fib; intermittent a fib on tele monitor as well -BNP normal -TTE: no wall motion abnormalities, EF 60-65% - s/p Stress test 10/12/16: negative - started on Coumadin INR 1.1 needs to establish with Coumadin clinic BILATERAL LE SWELLING -s/p LE vascular surgery 10/02/16 -bilateral LE venous and arterial US negative for thrombus -lasix started per Cardiology improved POSSIBLE LEFT GROIN CELLULITIS RECENT FEM-POP BYPASS WITH STENT PLACEMENT -CT abd/pelvis with contrast done to rule out any retroperitoneal hematoma/bleed ; no evidence of bleeding but possible developing cellulitis in left groin - improving with Doxycycline IV needs to continue Doxycycline PO when discharged ff up with Vascular Surgery this week ANEMIA: -likely due to blood loss from recent vascular surgery - Hg stable around 9-10 Iron, b12, folate: saurabh; -monitor closely especially given patient is on anticoagulation PULMONARY NODULES: SEEN ON CT -CT chest + 3 mm and 5 mm left upper lobe pulmonary nodules -obtain f/u CT in 6-12 months PVD: -s/p bilateral LE endarterectomy and iliac stent placement 10/02/16 -lifelong smoker; quit 1 week ago -continue ASA, Plavix and statin -monitor DEPRESSION: -stable -continue Celexa GERD: -continue Protonix and ranitidine HTN: -BP stable -continue clonidine and Norvasc; metoprolol stopped -monitor -BP lower, was orthostatic, placed hold parameters on BP meds and lowered doses of clonidine and norvasc DYSLIPIDEMIA: -continue statin Disposition d/c home today when cleared by Cardiology Current Inpatient Medications: Current Inpatient Medications Medications (Trade) Dose Ordered Sig/Rosa Route Start Time Stop Time Status Last Admin Dose Admin Acetaminophen (Tylenol Tab) 650 mg Q4H PRN PO 10/08/16 18:45 11/07/16 18:44 10/12/16 21:20 650 MG Ondansetron HCl (Zofran Inj) 4 mg Q6H PRN IV 10/08/16 18:45 11/07/16 18:44 Nitroglycerin (Nitrostat Tab) 0.4 mg UD PRN SL 10/08/16 18:45 11/07/16 18:44 Aspirin (Ecotrin Tab) 81 mg DAILY PO 10/09/16 09:00 11/08/16 08:59 10/13/16 08:53 81 MG Atorvastatin Calcium (Lipitor Tab) 80 mg HS PO 10/08/16 21:00 11/07/16 20:59 10/12/16 21:28 80 MG Clopidogrel Bisulfate (plAVix TAB) 75 mg DAILY PO 10/09/16 09:00 11/08/16 08:59 10/13/16 08:53 75 MG Fluoxetine HCl (Prozac Cap) 20 mg DAILY PO 10/09/16 09:00 11/08/16 08:59 10/13/16 08:54 20 MG Gabapentin (Neurontin Cap) 300 mg TID PO 10/08/16 21:00 11/07/16 20:59 10/13/16 08:55 300 MG Pantoprazole Sodium (Protonix Tab) 40 mg DAILY PO 10/09/16 09:00 11/08/16 08:59 10/13/16 08:55 40 MG Trazodone HCl (Desyrel Tab) 50 mg HS PRN PO 10/08/16 18:45 11/07/16 18:44 Ranitidine HCl (zANTac TAB) 300 mg HS PO 10/08/16 21:00 11/07/16 20:59 10/12/16 21:27 300 MG Miscellaneous (Iv Fluids Completed) 1 ea PRN PRN N/A 10/08/16 21:00 10/08/17 20:59 Furosemide (Lasix tab) 20 mg QAM PO 10/11/16 09:00 11/10/16 08:59 10/13/16 08:54 20 MG Diphenhydramine HCl (Benadryl Cap) 25 mg Q8 PRN PO 10/10/16 10:45 11/09/16 10:44 10/12/16 19:55 25 MG Amlodipine Besylate (Norvasc Tab) 5 mg DAILY PO 10/11/16 09:00 10/13/16 08:55 5 MG Clonidine HCl (Catapres Tab) 0.1 mg BID PO 10/10/16 21:00 11/09/16 20:59 10/13/16 08:54 0.1 MG Polyethylene (Miralax Powder Packet) 17 gm BID PO 10/10/16 21:00 11/09/16 20:59 10/13/16 08:54 17 GM Ioversol (Optiray 320) 125 ml UD PRN IV 10/10/16 17:45 10/14/16 17:44 Warfarin Sodium (Coumadin Tab) 5 mg DAILY@16 PO 10/11/16 16:00 11/10/16 15:59 10/12/16 16:39 5 MG Docusate Sodium 100 mg 100 mg BID PO 10/11/16 21:00 11/10/16 20:59 10/13/16 08:53 100 MG Doxycycline Hyclate/Dextrose (Vibramycin IV/ D5 100ml) 110 ml @ 50 mls/hr BID IV 10/12/16 21:00 10/22/16 20:59 10/13/16 08:53 50 MLS/HR Oxycodone/ Acetaminophen (Percocet 7.5-325MG Tab) Mild to modrate pain 1 ... Q6H PRN PO 10/12/16 21:15 10/26/16 21:14 10/13/16 06:41 2 TAB
--- NOTE | 2016-10-13 14:34 | Cardiology Follow-Up ---
Subjective General Date of Service: Oct 13, 2016. Chief Complaint: left groin pain, follow up shortness of breath, chest tightness, PAF Pt evaluation today including: conversation w/ patient, physical exam History of Present Illness The patient is a 56 year old female seen in follow up in room 280-2. Patient is much more comfortable today. Denies chest tightness or shortness of breath. Left groin pain is improved, having had two doses of IV doxycycline. Telemetry reveals stable SR. No AF. No bradycardia. Allergies Coded Allergies: Adhesives (Verified Allergy, Mild, 10/08/16) Guanfacine (Verified Allergy, Unknown, 10/08/16) Nifedipine (Verified Allergy, Unknown, 10/08/16) Social History Smoking Status: Current Every Day Smoker Hx Tobacco Use In Past Year?: Yes Hx Alcohol Use - Type And Amou: Yes (12-36 oz beer daily) Hx Substance Use - Type And Am: No Problem List Medical Problems: (1) Lower extremity edema Status: Acute Physical Exam Vital Signs Last Vital Signs Documentation Date Time Temp Pulse Resp B/P Pulse Ox O2 Delivery O2 Flow Rate FiO2 10/13/16 12:19 36.5 91 18 128/78 98 Nasal Cannula Physical Exam Constitutional: Level of Distress: NAD Neck: supple Lungs: Auscultation: no wheezing, no rales/crackles Cardiovascular: Heart Auscultation: RRR, no murmurs Extremities: no cyanosis, no varicosities, pertinent finding (Left groin incision with mild erythema, less tender to palpation of surrounding area compared to 10/12/16) Neurologic: Gait & Station: pertinent finding (no focal deficits) Assessment and Plan Assessment and Plan Impression: 56-year-old female 1. Pain at her left femoral incision site, possible infection vs postprocedure neuralgia from mild swelling, no definite clinical signs of underlying abscess, no leukocytosis, no fever, no abscess pocket seen on CT 2 2. Chest tightness-improved/ resolved, normal LVEF on echocardiogram, normal pharm nuclear stress 10/14 3. Lower extremity edema, abdominal fullness, perhaps post reperfusion edema, acute diastolic heart failure perhaps less likely given relatively low BNP 4. Newly diagnosed paroxysmal atrial fibrillation, CHADSVASC score of at lest 2 given female and history of PAD predicting moderate risk for cardioembolic stroke and therefore anticoagulation is the most ideal treatment 5. Peripheral arterial disease, status post recent bilateral common femoral endarterectomy, by lateral common/external iliac artery angioplasty and stenting 6. Chronic anemia 7. Cigarette smoking, ceased within the last week 8. History of dyslipidemia Recommendations/ plan: Continue aspirin plus clopidogrel for PAD. Continue coumadin load for new onset PAF, now in SR. Remain in hospital today to continue IV antibiotics for left groin. Continue low dose furosemide. Metoprolol discontinued due to bradycardia earlier this admission. Disposition: will need follow up with vascular surgery at [facility], [facility] clinic follow up, Follow up with Dr Martinez as outpt. Marbella Kinsey DO Laboratory Results Last 24 Hours Test 10/13/16 06:40 White Blood Count 7.66 K/uL Red Blood Count 3.08 M/uL Hemoglobin 10.1 g/dL Hematocrit 29.5 % Mean Corpuscular Volume 95.8 fL Mean Corpuscular Hemoglobin 32.8 pg Mean Corpuscular Hemoglobin Concent 34.2 g/dl RDW Standard Deviation 50.5 fL RDW Coefficient of Variation 14.5 % Platelet Count 298 K/uL Mean Platelet Volume 11.1 fL Prothrombin Time 11.5 SECONDS Prothromb Time International Ratio 1.1 Sodium Level 135 mmol/L Potassium Level 4.1 mmol/L Chloride Level 101 mmol/L Carbon Dioxide Level 26 mmol/L Anion Gap 8.0 mmol/L Blood Urea Nitrogen 7 mg/dl Creatinine 0.91 mg/dl Est Creatinine Clear Calc Drug Dose 65.9 ml/min Estimated GFR () 81.7 Estimated GFR (Non- 70.5 BUN/Creatinine Ratio 7.7 Random Glucose 83 mg/dl Calcium Level 9.1 mg/dl
[2016-10-13] MEDS: WARFARIN SOD 5 MG TAB PO SCH (17:04)
[2016-10-13] MEDS: RANITIDINE HCL 150 MG TAB PO SCH (20:47)
[2016-10-13] MEDS: ATORVASTATIN 40 MG TAB PO SCH (20:47)
[2016-10-14 00:18] VITALS: BP 123/80; PULSE 72; TEMP 36.8; O2SAT 97
[2016-10-14] MEDS: OXYCODONE/ACETAMINOPHEN 7.5-325 TAB PO PRN ×3 (00:55→13:10)
[2016-10-14 04:43] LABS: MEAN CELL VOLUME 94.5 fL (80-100); MEAN CORPUSCULAR HEMOGLOBIN 32.4 pg (25-34); MEAN PLATELET VOLUME 10.3 fL (7.4-10.4); PLATELET COUNT 267 K/uL (130-400); RED BLOOD COUNT 2.75 M/uL (4.2-5.4); WHITE BLOOD COUNT 7.38 K/uL (4.8-10.8)
[2016-10-14 04:50] LABS: MEAN CORPUSCULAR HGB CONC 34.2 g/dl (32-36)
[2016-10-14 04:55] LABS: INR 1.3 (0.9-1.1); PROTHROMBIN TIME (PATIENT) 13.5 SECONDS (9.0-12.0)
[2016-10-14 07:36] VITALS: BP 134/74; PULSE 69; TEMP 36.6; O2SAT 98
[2016-10-14 08:00] VITALS: O2SAT 98
[2016-10-14] MEDS: FLUOXETINE HCL 20 MG CAP PO SCH (08:48)
[2016-10-14] MEDS: PANTOprazole SOD 40 MG TAB PO SCH (08:48)
[2016-10-14] MEDS: DOCUSATE SODIUM 100 MG CAP PO SCH (08:48)
[2016-10-14] MEDS: CLOPIDOGREL BISULFATE 75 MG TAB PO SCH (08:49)
[2016-10-14] MEDS: POLYETHYLENE (MIRALAX) 17 GM PACK PO SCH (08:49)
[2016-10-14] MEDS: GABAPENTIN 300 MG CAP PO SCH ×2 (08:49→13:53)
[2016-10-14] MEDS: CLONIDINE HCL 0.1 MG TAB PO SCH (08:49)
[2016-10-14] MEDS: AMLODIPINE BESYLATE 5 MG TAB PO SCH (08:49)
[2016-10-14] MEDS: FUROSEMIDE 20 MG TAB PO SCH (08:50)
[2016-10-14] MEDS: DOXYCYCLINE IV 100 MG in DEXTROSE 5% 100ML 100 ML IV SCH (08:50)
[2016-10-14] MEDS: ASPIRIN 81 MG ECTAB PO SCH (08:50)
--- NOTE | 2016-10-14 11:33 | Cardiology Follow-Up ---
Subjective General Date of Service: Oct 14, 2016. Chief Complaint: left groin pain, follow up shortness of breath, chest tightness, PAF Pt evaluation today including: conversation w/ patient, physical exam History of Present Illness The patient is a 56 year old female seen in follow up. Pt denies chest pain or shortness of breath. Left groin feels better than yesterday. Allergies Coded Allergies: Adhesives (Verified Allergy, Mild, 10/08/16) Guanfacine (Verified Allergy, Unknown, 10/08/16) Nifedipine (Verified Allergy, Unknown, 10/08/16) Social History Smoking Status: Current Every Day Smoker Hx Tobacco Use In Past Year?: Yes Hx Alcohol Use - Type And Amou: Yes (12-36 oz beer daily) Hx Substance Use - Type And Am: No Problem List Medical Problems: (1) Lower extremity edema Status: Acute Physical Exam Vital Signs Last Vital Signs Documentation Date Time Temp Pulse Resp B/P Pulse Ox O2 Delivery O2 Flow Rate FiO2 10/14/16 08:00 98 Room Air 10/14/16 07:36 36.6 69 18 134/74 Physical Exam Constitutional: Level of Distress: NAD Neck: supple Lungs: Auscultation: no wheezing, no rales/crackles Cardiovascular: Heart Auscultation: RRR, no murmurs Extremities: no cyanosis, no varicosities, pertinent finding (Left groin incision with mild erythema, less tender to palpation of surrounding area compared to 10/12/16) Neurologic: Gait & Station: pertinent finding (no focal deficits) Assessment and Plan Assessment and Plan Impression: 56-year-old female 1. Pain at her left femoral incision site, possible infection vs postprocedure neuralgia from mild swelling, no definite clinical signs of underlying abscess, no leukocytosis, no fever, no abscess pocket seen on CT 2 2. Chest tightness-improved/ resolved, normal LVEF on echocardiogram, normal pharm nuclear stress 10/14 3. Lower extremity edema, abdominal fullness, perhaps post reperfusion edema, acute diastolic heart failure perhaps less likely given relatively low BNP 4. Newly diagnosed paroxysmal atrial fibrillation, CHADSVASC score of at lest 2 given female and history of PAD predicting moderate risk for cardioembolic stroke and therefore anticoagulation is the most ideal treatment 5. Peripheral arterial disease, status post recent bilateral common femoral endarterectomy, by lateral common/external iliac artery angioplasty and stenting 6. Chronic anemia 7. Cigarette smoking, ceased within the last week 8. History of dyslipidemia Recommendations/ plan: Continue aspirin plus clopidogrel for PAD. Continue coumadin load without bridge therapy for new onset PAF, now in SR. OK from my standpoint for transition to oral antibiotics with close outpt vascualar surgery follow up to reassess wound and remove neto. Continue low dose furosemide. Metoprolol discontinued due to bradycardia earlier this admission. Disposition: [place] need [place] [facility] [place] [facility] [place], Follow up with Dr Kinsey as outpt within 1-3 weeks . I contacted the cardiology office to request appointment with me for follow up of AF. Marbella Kinsey, DO Laboratory Results Last 24 Hours Test 10/14/16 04:28 White Blood Count 7.38 K/uL Red Blood Count 2.75 M/uL Hemoglobin 8.9 g/dL Hematocrit 26.0 % Mean Corpuscular Volume 94.5 fL Mean Corpuscular Hemoglobin 32.4 pg Mean Corpuscular Hemoglobin Concent 34.2 g/dl RDW Standard Deviation 49.7 fL RDW Coefficient of Variation 14.5 % Platelet Count 267 K/uL Mean Platelet Volume 10.3 fL Prothrombin Time 13.5 SECONDS Prothromb Time International Ratio 1.3
[2016-10-14] MEDS: WARFARIN SOD 5 MG TAB PO SCH (15:59)
[2016-10-14 16:00] VITALS: BP 125/63; PULSE 68; TEMP 36.6; O2SAT 96
--- NOTE | 2016-10-14 17:05 | Progress Note ---
Medicine Progress Note Date & Time of Visit: Oct 14, 2016 at 16:50. Subjective patient seen resting in bed, comfortable states she feels better overall left groin pain also significantly better no chest pain, dyspnea, palpitations, dizziness ambulates with no problems states she is ready and would like to be discharged today Objective Last 8 Hrs Date Time Temp Pulse Resp B/P Pulse Ox O2 Delivery O2 Flow Rate FiO2 10/14/16 16:00 36.6 68 18 125/63 96 Room Air Physical Exam: General- oriented x 3, not in distress, speaks in sentences with no effort Eyes- anicteric Neck- no JVD Lungs- clear to auscultation bilaterally, no rales/wheezes Heart- normal rate, regular rhythm; no murmurs Abdomen- normal bowel sounds, soft, nontender right groin: wound well opposed, neto intact, no discharge, no erythema/ warmth/tenderness left groin: wound well opposed, neto intact, scant yellow discharge, (+) mild surrounding erythema- improving, (+) mild tenderness, no edema/warmth Extremities- no pretibial edema, no calf tenderness; peripheral pulses intact; warm to touch, no cyanosis Neuro- alert, oriented x 3; no gross focal deficits Skin- warm & dry Laboratory Results: Last 24 Hours Test 10/14/16 04:28 10/14/16 13:15 White Blood Count 7.38 K/uL Red Blood Count 2.75 M/uL Hemoglobin 8.9 g/dL Hematocrit 26.0 % Mean Corpuscular Volume 94.5 fL Mean Corpuscular Hemoglobin 32.4 pg Mean Corpuscular Hemoglobin Concent 34.2 g/dl RDW Standard Deviation 49.7 fL RDW Coefficient of Variation 14.5 % Platelet Count 267 K/uL Mean Platelet Volume 10.3 fL Prothrombin Time 13.5 SECONDS Prothromb Time International Ratio 1.3 Stool Occult Blood NEGATIVE Date/Time Source Procedure Growth Status 10/14/16 03:25 Drainage - Surface Groin Gram Stain - Final Resulted 10/14/16 03:25 Drainage - Surface Groin Wound Culture Pending Resulted Assessment & Plan WORSENING SOB/CHEST TIGHTNESS POSSIBLY FROM NEW ONSET ATRIAL FIBRILLATION -presented with worsening SOB aggravated with laying flat and exertion; saturating well on room air -EKG showed A fib, rates have been on the lower side -CT chest negative for PE; no consolidation or effusion -serial CMs negative -EKG: no ischemic changes noted, EKG shows A fib; intermittent a fib on tele monitor as well -BNP normal -TTE: no wall motion abnormalities, EF 60-65% - s/p Stress test 10/12/16: negative - started on Coumadin 5mg po daily since 10/11/16 INR 1.3 as of 10/14/16 - countinue coumadin 5mg po daily INR check in 1-2 days c/o Coumadin Clinic (will contact clinic) POSSIBLE LEFT GROIN CELLULITIS RECENT FEM-POP BYPASS WITH STENT PLACEMENT - CT abd/pelvis with contrast done to rule out any retroperitoneal hematoma/ bleed; no evidence of bleeding but possible developing cellulitis in left groin - improving with Doxycycline IV, received x 2 days needs to continue Doxycycline PO when discharged ff up with Vascular Surgery tomorrow 10/15/16 for wound check BILATERAL LE SWELLING -s/p LE vascular surgery 10/02/16 -bilateral LE venous and arterial US negative for thrombus -lasix started per Cardiology improved PVD -s/p bilateral LE endarterectomy and iliac stent placement 10/02/16 -lifelong smoker; quit 1 week prior to admission -continue ASA, Plavix and statin -monitor HTN -BP lower, was orthostatic, placed hold parameters on BP meds and lowered doses of clonidine and norvasc metoprolol stopped due to bradycardia - monitor BP ANEMIA -likely due to blood loss from recent vascular surgery - Hg stable around 9-10 Iron, b12, folate: saurabh; -monitor closely especially given patient is on anticoagulation PULMONARY NODULES: SEEN ON CT -CT chest + 3 mm and 5 mm left upper lobe pulmonary nodules -obtain f/u CT in 6-12 months DEPRESSION: -stable -continue Celexa GERD: -continue Protonix and ranitidine DYSLIPIDEMIA: -continue statin Disposition d/c home today ff up with [facility] Surgery 10.14.16 Dr. Tai 10.19.16 Dr. Kinsey 10.23.16 Coumadin Clinic to call patient Current Inpatient Medications: Current Inpatient Medications Medications (Trade) Dose Ordered Sig/Rosa Route Start Time Stop Time Status Last Admin Dose Admin Acetaminophen (Tylenol Tab) 650 mg Q4H PRN PO 10/08/16 18:45 11/07/16 18:44 10/12/16 21:20 650 MG Ondansetron HCl (Zofran Inj) 4 mg Q6H PRN IV 10/08/16 18:45 11/07/16 18:44 Nitroglycerin (Nitrostat Tab) 0.4 mg UD PRN SL 10/08/16 18:45 11/07/16 18:44 Aspirin (Ecotrin Tab) 81 mg DAILY PO 10/09/16 09:00 11/08/16 08:59 10/14/16 08:50 81 MG Atorvastatin Calcium (Lipitor Tab) 80 mg HS PO 10/08/16 21:00 11/07/16 20:59 10/13/16 20:47 80 MG Clopidogrel Bisulfate (plAVix TAB) 75 mg DAILY PO 10/09/16 09:00 11/08/16 08:59 10/14/16 08:49 75 MG Fluoxetine HCl (Prozac Cap) 20 mg DAILY PO 10/09/16 09:00 11/08/16 08:59 10/14/16 08:48 20 MG Gabapentin (Neurontin Cap) 300 mg TID PO 10/08/16 21:00 11/07/16 20:59 10/14/16 13:53 300 MG Pantoprazole Sodium (Protonix Tab) 40 mg DAILY PO 10/09/16 09:00 11/08/16 08:59 10/14/16 08:48 40 MG Trazodone HCl (Desyrel Tab) 50 mg HS PRN PO 10/08/16 18:45 11/07/16 18:44 10/14/16 00:52 50 MG Ranitidine HCl (zANTac TAB) 300 mg HS PO 10/08/16 21:00 11/07/16 20:59 10/13/16 20:47 300 MG Miscellaneous (Iv Fluids Completed) 1 ea PRN PRN N/A 10/08/16 21:00 10/08/17 20:59 Furosemide (Lasix tab) 20 mg QAM PO 10/11/16 09:00 11/10/16 08:59 10/14/16 08:50 20 MG Diphenhydramine HCl (Benadryl Cap) 25 mg Q8 PRN PO 10/10/16 10:45 11/09/16 10:44 10/14/16 08:57 25 MG Amlodipine Besylate (Norvasc Tab) 5 mg DAILY PO 10/11/16 09:00 10/14/16 08:49 5 MG Clonidine HCl (Catapres Tab) 0.1 mg BID PO 10/10/16 21:00 11/09/16 20:59 10/14/16 08:49 0.1 MG Polyethylene (Miralax Powder Packet) 17 gm BID PO 10/10/16 21:00 11/09/16 20:59 10/14/16 08:49 17 GM Ioversol (Optiray 320) 125 ml UD PRN IV 10/10/16 17:45 10/14/16 17:44 Warfarin Sodium (Coumadin Tab) 5 mg DAILY@16 PO 10/11/16 16:00 11/10/16 15:59 10/14/16 15:59 5 MG Docusate Sodium 100 mg 100 mg BID PO 10/11/16 21:00 11/10/16 20:59 10/14/16 08:48 100 MG Doxycycline Hyclate/Dextrose (Vibramycin IV/ D5 100ml) 110 ml @ 50 mls/hr BID IV 10/12/16 21:00 10/22/16 20:59 10/14/16 08:50 50 MLS/HR Oxycodone/ Acetaminophen (Percocet 7.5-325MG Tab) Mild to modrate pain 1 ... Q6H PRN PO 10/12/16 21:15 10/26/16 21:14 10/14/16 13:10 2 TAB
[2016-10-14] MEDS ORDERED: NRV5 PO (17:10)
[2016-10-14] MEDS ORDERED: LSX20 PO (17:10)
[2016-10-14] MEDS ORDERED: DXY100 PO (17:10)
[2016-10-14] MEDS ORDERED: CTP1 PO (17:10)
[2016-10-14] MEDS ORDERED: CMD5 PO (17:10)
[2016-10-14] MEDS ORDERED: CLC100 PO (17:10)
--- NOTE | 2016-10-14 17:16 | Discharge Instructions ---
Discharge Instructions Admission Reason for Admission: Chest Pain, Sob Discharge Discharge Diagnosis / Problem: CHEST PAIN, LEFT GROIN CELLULITIS Discharge Goals Goal(s): Diagnostic testing, Therapeutic intervention Activity Recommendations Activity Limitations: as noted below (NO HEAVY EXERTION UNTIL SEEN BY PRIMARY CARE PHYSICIAN) Lifting Limitations: until after follow-up appointment Exercise/Sports Limitations: until after follow-up appointment Shower/Bathe: keep incision dry Driving or Machine Use: UNTIL AFTER FOLLOW UP APPOINTMENT . Instructions / Follow-Up Instructions / Follow-Up FOLLOW UP WITH DR. MEYERS AT THE [facility] , 4TH FLOOR, [facility] TOMORROW 10/14/16 AT 10:00AM (TEL. NO. [phone]). [facility] WILL CALL YOU REGARDING NEXT BLOOD WORK AND INSTRUCTIONS ON COUMADIN DOSE. FOLLOW UP WITH DR. COLIN ON Wednesday10/19/16 AT 1:10PM. FOLLOW UP WITH BINDING PR[employer] DR. SPEARS SCHEDULED. RETURN TO ER IMMEDIATELY IF WITH INCREASING PAIN, SWELLING, BLEEDING, DISCHARGE ON THE LEFT GROIN, FEVER/CHILLS, NAUSEA, WEAKNESS. Medication Instructions: * Warfarin is a medicine prescribed to prevent blood clots * Warfarin will thin your blood and help prevent new clots * Take your medications exactly as directed * Never skip a dose. Never take a double dose. If you miss a dose, take it as soon as you remember * It is important for your doctor to monitor your prothrombin time (PT). This is a lab test * Keep your appointment for lab tests Risk of Adverse Drug Reactions and Interactions: * Warfarin increases your risk of bleeding * The food you eat and other medications you take can affect how Warfarin works in your body * Ask your doctor about daily aspirin therapy * It is very important to talk with your doctor about all of the other medicines , antibiotics, vitamins or herbal products that you are taking * All of your medication must be approved by your doctor, including new medicines, as well as medicines you have taken before you started taking Warfarin Diet: * In order for Warfarin to work properly, it is important to keep your intake of Vitamin K as consistent as possible * You should avoid any sudden change in Vitamin K intake * Report any significant changes in your diet or weight to your doctor Call your Primary Care doctor if you experience any of the following: * Swelling or Pain in your leg * Sudden, continuous pain deep in a muscle * Pain that worsens when you are active or when you stand still for a long time * Chest Pain * Sudden Shortness of Breath * Rapid or pounding heart beat * Fainting * Dizziness * Cough with blood or bloody sputum * Sweating more than normal * Bruises * Heavy or uncontrolled bleeding * Blood in your urine, stool or vomit * Black or tarry stools Caring for Your Self at Home: * Avoid sitting, standing or lying down for long periods without moving your legs and feet * When traveling by car, stop to get out and move around at least once every 3 hours * On long airplane, train or bus rides, get up and move around when possible * If you can't get up, wiggle your toes and tighten your calves to keep your blood moving Follow Up: It is important for you to keep your follow up appointments with your medical provider. Current Hospital Diet Patient's current hospital diet: Regular Diet Discharge Diet Recommended Diet: AHA Diet (Heart Healthy) Pending Studies Studies pending at discharge: yes List of pending studies: REPEAT CT SCAN OF THE CHEST C/O PRIMARY CARE PHYSICIAN Medical Emergencies . Who to Call and When: Medical Emergencies: If at any time you feel your situation is an emergency, please call 911 immediately. . Non-Emergent Contact Non-Emergency issues call your: Primary Care Provider Call Non-Emergent contact if: you have a fever, your pain is not controlled, your pain is worsening, wound has increased drainage, wound has increased redness, wound has increased pain, you have any medication questions . Past History Medical & Surgical History: (1) Lower extremity edema (2) Chest pain (3) SOB (shortness of breath) (4) PVD (peripheral vascular disease) (5) HTN (hypertension) (6) Dyslipidemia (7) Depression (8) History of appendectomy (9) H/O vascular surgery . "Provider Documentation" section prepared by Virgil Landis. VTE Core Measure Inpt VTE Proph given/why not?: Unfractionated heparin SQ, Warfarin (Coumadin)
--- NOTE | 2016-10-14 17:24 | Discharge Summary ---
Discharge Summary Admission Date: Oct 08, 2016 at 18:36 Discharge Date: Oct 14, 2016 Discharge Disposition: Home Principal Diagnosis: WORSENING SOB/CHEST TIGHTNESS POSSIBLY FROM NEW ONSET ATRIAL FIBRILLATION Secondary Diagnoses/Problems: POSSIBLE LEFT GROIN CELLULITIS RECENT FEM-POP BYPASS WITH STENT PLACEMENT Please refer to hospital course below for further details. Procedures: CT ANGIOGRAM OF THE CHEST CLINICAL HISTORY: Atypical chest pain. Possible pulmonary embolism. COMPARISON STUDY: Chest x-ray dated 10/08/2016 TECHNIQUE: Following the IV administration of 97 mL of Optiray-320, CT angiogram of the thorax was performed from the thoracic inlet to the lung bases utilizing the pulmonary embolus protocol. Images are reviewed in the axial, sagittal, and coronal planes. IV contrast was administered without complication. MIP imaging was performed. CT DOSE: 412.66 mGy.cm FINDINGS: There is a 28 mm left adrenal adenoma. No pathologically enlarged axillary mediastinal or hilar lymph nodes were visualized. There was no evidence of thoracic aortic dilatation. There were no pulmonary artery filling defects to indicate acute pulmonary embolism. No pleural effusions are visualized. There is respiratory motion artifact. There is a calcified right upper lobe granuloma. There is scattered wispy groundglass opacities most pronounced within the left upper lobe. These could be inflammatory. There is a 3 mm left upper lobe pulmonary nodule as visualized in image #[id number]. There is a 5 mm left upper lobe pulmonary nodule as visualized in image #[id number]. IMPRESSION: 1. No CT evidence of acute pulmonary embolism 2. Scattered wispy groundglass opacities most pronounced in the left upper lobe. These could be inflammatory. Clinical correlation is advocated 3. 3 mm and 5 mm left upper lobe pulmonary nodules. Follow-up per Fleischner criteria is recommended. Please refer to below summary of Fleischner criteria recommendations for follow-up of incidental CT nodules (Nichelle Mann, Guidelines for management of small pulmonary nodules detected on CT scans: A statement from the Fleischner Society, Radiology 237: [phone].) Low Risk Patient: Minimal or no smoking or other known risk factors for malignancy <=4 mm: No follow-up needed. >4-6 mm: Initial follow-up CT at 12 months; if unchanged, no further follow-up. >6-8 mm: Initial follow-up CT at 6-12 months then at 18-24 months if no change. >8 mm: Follow-up CT at \\R\\3, 9, 24 months, or PET and/or biopsy. High Risk Patient: History of smoking or other known risk factors <=4 mm: Follow-up at 12 months; if unchanged, no further follow-up. >4-6 mm: Initial follow-up CT at 6-12 months then at 18-24 months if no change. >6-8 mm: Initial follow-up CT at 3-6 months then at 9-12 and 24 months if no change. >8 mm: Same as low risk patient. Note: Nodule size measured as average of length and width. Ground glass or partly solid nodules may require longer follow-up to exclude indolent adenocarcinoma. Consultations: Payment Manager Dr. Spears Pending Studies/Follow-Up: Please refer to hospital course below. Medication Reconciliation New Medications: Doxycycline Hyclate (Doxycycline Hyclate) 100 Mg Cap 1 CAP PO BID for 8 Days, #16 CAP 0 Refills Amlodipine Besylate (Amlodipine Besylate) 5 Mg Tab 5 MG PO DAILY for 30 Days, #30 TAB 2 Refills Clonidine HCl (Clonidine HCl) 0.1 Mg Tab 0.1 MG PO BID for 30 Days, #60 TAB 2 Refills Docusate Sodium (Docusate Sodium) 100 Mg Cap 100 MG PO BID for 10 Days, #20 CAP 2 Refills Furosemide (Furosemide) 20 Mg Tab 20 MG PO QAM for 30 Days, #30 TAB 2 Refills Warfarin Sod (Coumadin) 5 Mg Tab 5 MG PO DAILY@16 for 30 Days, #30 TAB 2 Refills further instructions by [facility] Continued Medications: Aspirin (Aspirin Ec) 81 Mg Tab 81 MG PO DAILY Atorvastatin (Lipitor) 80 Mg Tab 80 MG PO DAILY, TAB Clopidogrel (Plavix) 75 Mg Tab 75 MG PO DAILY, TAB Fluoxetine (Prozac) 20 Mg Cap 20 MG PO DAILY, CAP Gabapentin (Neurontin) 300 Mg Cap 300 MG PO TID, CAP Oxycodone/Acetaminophen 5MG/325MG (Percocet 5MG/325MG) Tab 1-2 TABLETS PO Q4H PRN for Pain, TAB PAIN Pantoprazole (Protonix) 40 Mg Tab 40 MG PO DAILY, #30 TAB Ranitidine (Zantac) 300 Mg Tab 300 MG PO HS, TAB Trazodone Hcl (Trazodone) 50 Mg Tab 50 MG PO HS PRN for Insomnia, TAB Discontinued Medications: Amlodipine (Norvasc) 10 Mg Tab 10 MG PO DAILY, TAB Clonidine HCl (Clonidine HCl) 0.2 Mg Tab 0.2 MG PO BID Metoprolol Tartrate (Lopressor) (Lopressor) 25 Mg Tab 25 MG PO BID, TAB Admission Information HPI (per Admitting provider): This is a 56 y/o female with PMHx of PVD s/p recent bilateral fem-pop and stent placement, HTN, Dyslipidemia and other problems as outlined below who presents to the ED c/o SOB that began yesterday. Pt reports that yesterday she developed SOB that is aggravated with laying flat and exertion. Sxs are assoc with chest tightness, abdominal pain and distention, and worsening bilat LE swelling. She denies pain in her legs. Pt has a history of PVD. She underwent bilateral femoral endarterectomy and iliac stent placement 6 days ago in [place]. She was discharged on Plavix. Patient was a lifelong heavy smoker but quit 1 week ago. Pt currently lives at home with her . She has been using a cane and walker to assist with ambulation post-surgery. Pt denies fever/chills, diaphoresis, palpitations, cough, wheezing, N/V, diarrhea, bladder issues, lightheadedness/dizziness. In the ED, vitals are stable. Pt is afebrile with no leukocytosis. HgB 9.7. d-dimer elevated. Na+ 132. BNP WNL. Trop negative and EKG no ischemic changes. CT chest negative for PE. Pt is stable and will be admitted for further evaluation and treatment. Physical Exam (per Admitting): General Appearance: WD/WN, no apparent distress, + pertinent finding (Pt is laying in bed with at bedside ) Head: normocephalic, atraumatic Eyes: normal inspection ENT: hearing grossly normal Neck: supple Respiratory/Chest: chest non-tender, lungs clear, normal breath sounds, no respiratory distress, + pertinent finding (no wheezes or crackles noted) Cardiovascular: regular rate, rhythm, no murmur Abdomen/GI: normal bowel sounds, soft, + tenderness (diffuse tenderness to palpation), + distended Back: normal inspection Extremities/Musculoskelatal: no calf tenderness, + swelling (mild bilateral lower extremity swelling ), + pertinent finding (good peripheral pulses bilat ) Neurologic/Psych: alert, normal mood/affect, oriented x 3 Skin: normal color, warm/dry Hospital Course WORSENING SOB,CHEST TIGHTNESS POSSIBLY FROM NEW ONSET ATRIAL FIBRILLATION -presented with worsening SOB aggravated with laying flat and exertion; saturating well on room air -EKG showed A fib, rates have been on the lower side -CT chest negative for PE; no consolidation or effusion -serial CMs negative -EKG: no ischemic changes noted, EKG shows A fib; intermittent a fib on tele monitor as well -BNP normal -TTE: no wall motion abnormalities, EF 60-65% - s/p Stress test 10/12/16: negative - started on Coumadin 5mg po daily since 10/11/16 INR 1.3 as of 10/14/16 - countinue coumadin 5mg po daily INR check in 1-2 days c/o Coumadin Clinic (will contact clinic) POSSIBLE LEFT GROIN CELLULITIS RECENT FEM-POP BYPASS WITH STENT PLACEMENT - CT abd/pelvis with contrast done to rule out any retroperitoneal hematoma/ bleed; no evidence of bleeding but possible developing cellulitis in left groin - gradually improving with Doxycycline IV, received x 2 days wound culture report pending Doxycycline 100mg po BID x 8 more days on discharge ff up with Vascular Surgery tomorrow 10/15/16 for wound check BILATERAL LE SWELLING -s/p LE vascular surgery 10/02/16 -bilateral LE venous and arterial US negative for thrombus - good lower extremity pulses, no cyanosis - lasix started per Cardiology improved - monitor Na and PRP while on lasix (history of hyponatremia as per patient) PVD -s/p bilateral LE endarterectomy and iliac stent placement 10/02/16 -lifelong smoker; quit 1 week prior to admission -continue ASA, Plavix and statin -monitor HTN -BP lower, was orthostatic, placed hold parameters on BP meds and lowered doses of clonidine and norvasc metoprolol stopped due to bradycardia - monitor BP ANEMIA -likely due to blood loss from recent vascular surgery - Hg stable around 9-10 Iron, b12, folate: saurabh; -monitor closely especially given patient is on anticoagulation PULMONARY NODULES: SEEN ON CT -CT chest + 3 mm and 5 mm left upper lobe pulmonary nodules (full report noted above) -obtain f/u CT in 6-12 months DEPRESSION: -stable -continue Celexa GERD: -continue Protonix and ranitidine DYSLIPIDEMIA: -continue statin Disposition d/c home today ff up with [facility] 10.14.16 Dr. Colin 10.19.16 Dr. Spears 10.23.16 Coumadin Clinic to call patient Total time spent on discharge = 60 minutes This includes examination of the patient, discharge planning, medication reconciliation, and communication with other providers. Discharge Instructions Discharge Instructions Admission Reason for Admission: Chest Pain, Sob Discharge Discharge Diagnosis / Problem: CHEST PAIN, LEFT GROIN CELLULITIS Discharge Goals Goal(s): Diagnostic testing, Therapeutic intervention Activity Recommendations Activity Limitations: as noted below (NO HEAVY EXERTION UNTIL SEEN BY PRIMARY CARE PHYSICIAN) Lifting Limitations: until after follow-up appointment Exercise/Sports Limitations: until after follow-up appointment Shower/Bathe: keep incision dry Driving or Machine Use: UNTIL AFTER FOLLOW UP APPOINTMENT . Instructions / Follow-Up Instructions / Follow-Up FOLLOW UP WITH DR. MEYERS AT [facility] , 4TH FLOOR, [facility] TOMORROW 10/14/16 AT 10:00AM (TEL. NO. [phone]). [facility] WILL CALL YOU REGARDING NEXT BLOOD WORK AND INSTRUCTIONS ON COUMADIN DOSE. FOLLOW UP WITH DR. COLIN ON Wednesday10/19/16 AT 1:10PM. FOLLOW UP WITH LUMBER SORTER DR. SPEARS SCHEDULED. RETURN TO ER IMMEDIATELY IF WITH INCREASING PAIN, SWELLING, BLEEDING, DISCHARGE ON THE LEFT GROIN, FEVER/CHILLS, NAUSEA, WEAKNESS. Medication Instructions: * Warfarin is a medicine prescribed to prevent blood clots * Warfarin will thin your blood and help prevent new clots * Take your medications exactly as directed * Never skip a dose. Never take a double dose. If you miss a dose, take it as soon as you remember * It is important for your doctor to monitor your prothrombin time (PT). This is a lab test * Keep your appointment for lab tests Risk of Adverse Drug Reactions and Interactions: * Warfarin increases your risk of bleeding * The food you eat and other medications you take can affect how Warfarin works in your body * Ask your doctor about daily aspirin therapy * It is very important to talk with your doctor about all of the other medicines , antibiotics, vitamins or herbal products that you are taking * All of your medication must be approved by your doctor, including new medicines, as well as medicines you have taken before you started taking Warfarin Diet: * In order for Warfarin to work properly, it is important to keep your intake of Vitamin K as consistent as possible * You should avoid any sudden change in Vitamin K intake * Report any significant changes in your diet or weight to your doctor Call your Primary Care doctor if you experience any of the following: * Swelling or Pain in your leg * Sudden, continuous pain deep in a muscle * Pain that worsens when you are active or when you stand still for a long time * Chest Pain * Sudden Shortness of Breath * Rapid or pounding heart beat * Fainting * Dizziness * Cough with blood or bloody sputum * Sweating more than normal * Bruises * Heavy or uncontrolled bleeding * Blood in your urine, stool or vomit * Black or tarry stools Caring for Your Self at Home: * Avoid sitting, standing or lying down for long periods without moving your legs and feet * When traveling by car, stop to get out and move around at least once every 3 hours * On long airplane, train or bus rides, get up and move around when possible * If you can't get up, wiggle your toes and tighten your calves to keep your blood moving Follow Up: It is important for you to keep your follow up appointments with your medical provider. Current Hospital Diet Patient's current hospital diet: Regular Diet Discharge Diet Recommended Diet: AHA Diet (Heart Healthy) Pending Studies Studies pending at discharge: yes List of pending studies: REPEAT CT SCAN OF THE CHEST C/O PRIMARY CARE PHYSICIAN Medical Emergencies . Who to Call and When: Medical Emergencies: If at any time you feel your situation is an emergency, please call 911 immediately. . Non-Emergent Contact Non-Emergency issues call your: Primary Care Provider Call Non-Emergent contact if: you have a fever, your pain is not controlled, your pain is worsening, wound has increased drainage, wound has increased redness, wound has increased pain, you have any medication questions . Past History Medical & Surgical History: (1) Lower extremity edema (2) Chest pain (3) SOB (shortness of breath) (4) PVD (peripheral vascular disease) (5) HTN (hypertension) (6) Dyslipidemia (7) Depression (8) History of appendectomy (9) H/O vascular surgery . "Provider Documentation" section prepared by Virgil Landis. VTE Core Measure Inpt VTE Proph given/why not?: Unfractionated heparin SQ, Warfarin (Coumadin)
[2016-10-14 17:33] VITALS: BP 125/63; PULSE 68; TEMP 36.6; O2SAT 96
[2016-12-23] MEDS ORDERED: LVNIS40 SQ (13:55)
[2016-12-23] MEDS ORDERED: BTP80 PO (14:24)
[2016-12-23] MEDS ORDERED: DXY100 PO (14:24)
[2016-12-23] MEDS ORDERED: CLON0.1T12 PO (14:24)
[2016-12-23] MEDS ORDERED: RXC5 PO (14:24)
[2016-12-23] MEDS ORDERED: AMLO-114 PO (14:24)
[2017-03-22] MEDS ORDERED: FNTTP50 TD (13:11)
[2017-03-22] MEDS ORDERED: ONDA8TAB6 PO (13:11)
[2017-03-22] MEDS ORDERED: BUPR-79 PO (13:11)
[2017-03-22] MEDS ORDERED: AMLO-114 PO (13:11)
[2017-04-16] MEDS ORDERED: augmentin PO (14:02)
[2017-05-21] MEDS ORDERED: WARF5TAB7 PO (11:51)
== END 2016-10-14 18:30 | disposition home or self-care (01) ==
LOC: ENRESERVDT → ENRESERVTM → C.EDB 15:48 → C.2T 18:36 → C.MED 10-13 11:37
PROVIDERS: ADMIT Emergency Medicine; ATTEND Internal Medicine
DX: R06.02 Shortness of breath (principal); D64.9 Anemia, unspecified; E78.5 Hyperlipidemia, unspecified; F32.9 Major depressive disorder, single episode, unspecified; I10 Essential (primary) hypertension; I26.99 Other pulmonary embolism without acute cor pulmonale; I48.0 Paroxysmal atrial fibrillation; I48.1 Persistent atrial fibrillation; I50.9 Heart failure, unspecified; I73.9 Peripheral vascular disease, unspecified; K21.9 Gastro-esophageal reflux disease without esophagitis; Z79.01 Long term (current) use of anticoagulants; R91.1 Solitary pulmonary nodule; Z86.711 Personal history of pulmonary embolism; Z87.891 Personal history of nicotine dependence

== ENCOUNTER 2016-12-13 15:04 | Emergency (ER) | payer BC ==
[~2016-12-13] VITALS: Ht 157.5 cm; Wt 74.0 kg
[~2016-12-13 15:04] MED LIST changes: +ASPI81TA28 PO; +ATOR-26 PO; -CEPH500C PO; +CLC100 PO; -CLONIDINE; +CLOP1TAB15 PO; +CMD5 PO; +CTP1 PO; +DXY100 PO; +FLUO20CA35 PO; +GABA-113 PO; +LSX20 PO; +NRV5 PO; +OXYC-57 PO; +PANT40TA PO; +RANI300T2 PO; +TRAZ50TA35 PO; -[UNRECOGNIZED DRUG - REMARK]
[2016-12-13 15:17] VITALS: TEMP 37.3; Ht 157.5 cm; Wt 74.0 kg
[2016-12-13] MEDS ORDERED: MoRPHine SULFATE 10 MG/ML CARP/VIAL IV STA (15:30)
--- NOTE | 2016-12-13 15:34 | EMERGENCY ROOM VISIT NOTE ---
History First contact with patient: 15:21 Chief Complaint: FOOT PAIN Stated Complaint: FOOT PAIN History of Present Illness The patient is a 56 year old female who presents to the Emergency Room with complaints of left ankle injury. The patient states that she was walking and tripped and fell. She complains of pain in the left ankle and lower leg. She is unable to bear weight. She rates her discomfort a 9/10. She denies striking her head or having loss of consciousness. She denies any headache, nausea, vomiting, blurry vision. She denies any neck pain. She denies any pain in her chest or trouble breathing. The patient does have a history of peripheral artery disease. She does take Coumadin and Plavix. Review of Systems A 10 system review of systems was completed with positives and pertinent negatives listed in the HPI. Past Medical/Surgical History Medical Problems: (1) Chest pain (2) Depression (3) Dyslipidemia (4) History of blood clots (5) HTN (hypertension) (6) PVD (peripheral vascular disease) (7) SOB (shortness of breath) Surgical Problems: (1) H/O vascular surgery (2) History of appendectomy Social History Smoking Status: Current Every Day Smoker Drug Use: none Marital Status: Occupation Status: employed Current/Historical Medications Scheduled Amlodipine (Norvasc), 5 MG PO DAILY Aspirin (Aspirin Ec), 81 MG PO DAILY Atorvastatin (Lipitor), 80 MG PO DAILY Clonidine Hcl (Catapres), 1 TAB PO BID Clopidogrel (Plavix), 75 MG PO DAILY Fluoxetine (Prozac), 20 MG PO DAILY Ondasetron Odt (Zofran Odt), 4 MG SL Q6H Pantoprazole (Protonix), 40 MG PO DAILY Ranitidine (Zantac), 300 MG PO HS Warfarin Sodium (Warfarin Sodium), 5 MG PO 4XWK @ 1600 Warfarin Sodium (Warfarin Sodium), 7.5 MG PO 3XWK @ 1600 Scheduled PRN Oxycodone Ir (Roxicodone Ir), 1-2 TAB PO Q4H PRN for Pain Trazodone Hcl (Trazodone), 50 MG PO HS PRN for Insomnia Allergies Coded Allergies: Adhesives (Verified Allergy, Mild, 12/13/16) Guanfacine (Verified Allergy, Unknown, 12/13/16) Nifedipine (Verified Allergy, Unknown, 12/13/16) Physical Exam Vital Signs Date Time Temp Pulse Resp B/P Pulse Ox O2 Delivery O2 Flow Rate FiO2 12/13/16 16:26 81 22 164/97 100 Room Air 12/13/16 15:17 37.3 76 18 144/83 100 Room Air Physical Exam VITALS: Vitals are noted on the nurse's note and reviewed by myself. Vital signs stable. The patient is afebrile. GENERAL: This is a 56-year-old female,, in no acute distress, nondiaphoretic, well-developed well-nourished. SKIN: There is marked edema and mild ecchymosis to the left lateral malleolus. The skin is otherwise intact without laceration or abrasion. There is no tenting of the skin. Capillary reflex less than 2 seconds. HEAD: Normocephalic atraumatic. EARS: External auditory canals clear, tympanic membranes pearly tate without erythema or effusion bilaterally. EYES: Pupils equal round and reactive to light and accommodation. Conjunctivae without injection, sclerae without icterus. Extraocular movements intact. NOSE: Patent, turbinates without inflammation or discharge. MOUTH: Mucous membranes moist. Tonsils are not enlarged. Pharynx without erythema or exudate. Uvula midline. Airway patent. Tongue does not deviate. NECK: Supple without nuchal rigidity. Cervical spine is nontender. No JVD. HEART irregularly irregular. LUNGS: Clear to auscultation bilaterally without wheezes, rales or rhonchi. No retractions or accessory muscle use. MUSCULOSKELETAL: Marked ecchymosis, edema and tenderness to the left lateral ankle. There is mild deformity. The patient is not able to move the left ankle. There is minimal tenderness to the tib-fib. There is no tenderness over the hip, knee or foot. NEURO: Patient was alert and oriented to person place and time. . No focal neurological deficits. Medical Decision & Procedures ER Provider Diagnostic Interpretation: LEFT TIBIA/FIBULA 2 VIEWS ROUTINE CLINICAL HISTORY: Unable to bare weight trauma COMPARISON: None. DISCUSSION: Displaced distracted trimalleolar fracture left ankle. More proximal aspects of the tibia and fibula are unremarkable. Soft tissue vascular calcification is present. Moderate soft tissue edema IMPRESSION: Trimalleolar fracture left ankle. Remainder of the lower leg is negative [~ rep ct add3]] LEFT ANKLE MIN 3 VIEWS ROUTINE CLINICAL HISTORY: Unable to bare weight trauma. Pain. COMPARISON: None. DISCUSSION: Oblique fracture distal fibula. Transverse fracture medial malleolus. Probable vertical fracture posterior malleolus extending to the articular services. There appears to be distraction of fracture fragments at the posterior tibia with estimated separation of up to 6 mm and impression of the posterior aspect of the distal tibia x 3 mm. Subtalar joint is intact. Generalized moderate soft tissue edema is present. IMPRESSION: Moderately distracted trimalleolar fracture left ankle LEFT ANKLE MIN 3 VIEWS ROUTINE CLINICAL HISTORY: left trimalleolar fracture, post reduction fracture COMPARISON: Prior study same date 3:38 PM DISCUSSION: Trimalleolar fracture left ankle. Mildly improved alignment compared to the prior study. There continues be distraction and to a lesser extent compression of the posterior malleolar fragment. There continues be mild anterior displacement of the anterior aspect of the tibia in relation to the talus. IMPRESSION: Trimalleolar fracture mildly improved in alignment from the prior study. Continued mild distraction/displacement of the tibial/posterior malleolar fracture Laboratory Results 12/13/16 15:54 Red Blood Count 4.51, Mean Corpuscular Volume 87.8, Mean Corpuscular Hemoglobin 31.0, Mean Corpuscular Hemoglobin Concent 35.4, Mean Platelet Volume 10.9, Neutrophils (%) (Auto) 74.1, Lymphocytes (%) (Auto) 18.9, Monocytes (%) (Auto) 6.1, Eosinophils (%) (Auto) 0.3, Basophils (%) (Auto) 0.3, Neutrophils # (Auto) 8.52, Lymphocytes # (Auto) 2.18, Monocytes # (Auto) 0.70, Eosinophils # (Auto) 0.03, Basophils # (Auto) 0.04 12/13/16 15:54 Test 12/13/16 15:54 12/13/16 17:37 White Blood Count 11.51 K/uL (4.8-10.8) Red Blood Count 4.51 M/uL (4.2-5.4) Hemoglobin 14.0 g/dL (12.0-16.0) Hematocrit 39.6 % (37-47) Mean Corpuscular Volume 87.8 fL (80-100) Mean Corpuscular Hemoglobin 31.0 pg (25-34) Mean Corpuscular Hemoglobin Concent 35.4 g/dl (32-36) Platelet Count 245 K/uL (130-400) Mean Platelet Volume 10.9 fL (7.4-10.4) Neutrophils (%) (Auto) 74.1 % Lymphocytes (%) (Auto) 18.9 % Monocytes (%) (Auto) 6.1 % Eosinophils (%) (Auto) 0.3 % Basophils (%) (Auto) 0.3 % Neutrophils # (Auto) 8.52 K/uL (1.4-6.5) Lymphocytes # (Auto) 2.18 K/uL (1.2-3.4) Monocytes # (Auto) 0.70 K/uL (0.11-0.59) Eosinophils # (Auto) 0.03 K/uL (0-0.5) Basophils # (Auto) 0.04 K/uL (0-0.2) RDW Standard Deviation 47.2 fL (36.4-46.3) RDW Coefficient of Variation 14.7 % (11.5-14.5) Immature Granulocyte % (Auto) 0.3 % Immature Granulocyte # (Auto) 0.04 K/uL (0.00-0.02) Anion Gap 16.0 mmol/L (3-11) Est Creatinine Clear Calc Drug Dose 65.7 ml/min Estimated GFR () 82.8 Estimated GFR (Non- 71.5 BUN/Creatinine Ratio 10.2 (10-20) Calcium Level 8.9 mg/dl (8.5-10.1) Total Bilirubin 0.3 mg/dl (0.2-1) Aspartate Amino Transf (AST/SGOT) 26 U/L (15-37) Alanine Aminotransferase (ALT/SGPT) 24 U/L (12-78) Alkaline Phosphatase 103 U/L (45-117) Total Protein 7.9 gm/dl (6.4-8.2) Albumin 3.9 gm/dl (3.4-5.0) Globulin 4.0 gm/dl (2.5-4.0) Albumin/Globulin Ratio 1.0 (0.9-2) Prothrombin Time 25.7 SECONDS (9.0-12.0) Prothromb Time International Ratio 2.3 (0.9-1.1) Activated Partial Thromboplast Time 34.6 SECONDS (21.0-31.0) Partial Thromboplastin Ratio 1.3 Medications Administered Medications (Trade) Dose Ordered Sig/Rosa Route Start Time Stop Time Status Last Admin Dose Admin Lorazepam (Ativan Inj) 1 mg NOW STAT IV 12/13/16 16:09 12/13/16 16:11 DC 12/13/16 16:24 1 MG Morphine Sulfate (MoRPHine SULFATE INJ) 2 mg STK-MED ONCE .ROUTE 12/13/16 16:08 12/13/16 16:12 DC 12/13/16 16:19 2 MG Morphine Sulfate (MoRPHine SULFATE INJ) 4 mg STK-MED ONCE .ROUTE 12/13/16 16:08 12/13/16 16:12 DC 12/13/16 16:19 4 MG Ondansetron HCl (Zofran Inj) 4 mg STK-MED ONCE .ROUTE 12/13/16 16:08 12/13/16 16:12 DC 12/13/16 16:18 4 MG Hydromorphone HCl (Dilaudid Inj) 1 mg NOW STAT IV 12/13/16 16:40 12/13/16 16:41 DC 12/13/16 16:40 1 MG Procedure The patient was placed in a posterior and stirrup Ortho-Glass splint by myself and the emergency department factory focus technician after reduction. The reduction was performed by Dr. Cortes. The position was slightly improved on repeat x-rays ED Course The patient was seen and examined. Previous visits were reviewed. The patient does not have a fever. She has a mild leukocytosis of 11.51. She does not have any significant electrolyte abnormality. INR is 2.3. The patient appears to have a trimalleolar fracture on x-ray. Slight reduction was performed and the position was improved. The patient's toes were less dusky and more pink after the reduction. The patient tolerated this very well. The patient does have a significant medical problems. The patient has recently had iliac stents and endarterectomy at [facility]. The patient is certainly at increased risk for poor outcome. I discussed the case with Dr. Fischer who recommends splinting and follow-up in the office to be scheduled for outpatient surgery. He stated that if she was not able to function at home and socially he could admit her to the hospital. I discussed this with the patient. She would like to try outpatient management and does live with her who says he will be able to help her. She was given 6 g IV morphine, 1 mg IV Ativan and 4 mg IV Zofran initially. Her pain improved mildly. She was then given 1 mg IV Dilaudid with good improvement in her pain. The patient will be given prescriptions for OxyIR and Zofran. She was advised not to bear any weight on the left leg. She states she has a walker at home. The patient is encouraged to contact orthopedics first thing in the morning for a follow-up ointment for further evaluation and management. She was advised to return with any worsening symptoms or if she feels that she cannot function at home. Additionally, the patient is currently anticoagulated with both Plavix and Coumadin. The Coumadin is for atrial fibrillation and the Plavix is for the recent stents. She has an appointment with her vascular surgeon tomorrow at 8: 40 AM. I suggested that she speak with them regarding potential surgery to the ankle and how to manage her anticoagulation. The patient was also seen and examined by who agrees with the assessment and treatment plan. Medical Decision The differential diagnosis includes fracture, dislocation, sprain, strain, among others [facility] Drug Monitoring Program Search Results: patient reviewed within database, no issues identified Drug Monitoring Findings: The patient does fill narcotics regularly. She has had narcotics for her recent surgery. Given the severity of this fracture, I did elect to provide her with a prescription for oxycodone. Impression Primary Impression: Trimalleolar fracture of ankle, closed Departure Information Dispostion Home / Self-Care Condition GOOD Prescriptions Ondasetron Odt (ZOFRAN ODT) 4 Mg Tab 4 MG SL Q6H for Nausea, #20 TAB Prov: Bisi Pichardo PA-C 12/13/16 Oxycodone Ir (Roxicodone Ir) 5 Mg Tab 1-2 TAB PO Q4H Y for Pain, #36 TAB For Initial Treatment Prov: Bisi Pichardo PA-C 12/13/16 Referrals No Doctor, Assigned (PCP) Yuri Fischer D.O. Patient Instructions ED Fx Ankle General, [facility] Additional Instructions Oxy IR 1-2 tablets every 4-6 hrs as needed for severe pain. No driving or alcohol use with Oxy IR. Zofran as prescribed, as needed for nausea. Wear the splint until seen by orthopedics. Do not get the splint wet. Do not bear weight on the left leg. Contact orthopedics first thing in the morning for a follow up appointment and further evaluation and management Follow up with your vascular surgeon tomorrow as scheduled. Discuss the potential for having surgery on the ankle and how they want to manage your anticoagulants. Return with any worsening symptoms. Problem Qualifiers Primary Impression: Trimalleolar fracture of ankle, closed Encounter type: initial encounter Laterality: left Qualified Codes: S82.852A - Displaced trimalleolar fracture of left lower leg, initial encounter for closed fracture
[2016-12-13] MEDS ORDERED: WARF-246 PO (15:40)
[2016-12-13] MEDS ORDERED: AMLO-110 PO (15:40)
[2016-12-13] MEDS ORDERED: CLON0.1T12 PO (15:40)
[2016-12-13] MEDS ORDERED: WARF-284 PO (15:40)
--- NOTE | 2016-12-13 16:00 | DIAGNOSTIC IMAGING REPORT ---
LEFT ANKLE MIN 3 VIEWS ROUTINE CLINICAL HISTORY: Unable to bare weight trauma. Pain. COMPARISON: None. DISCUSSION: Oblique fracture distal fibula. Transverse fracture medial malleolus. Probable vertical fracture posterior malleolus extending to the articular services. There appears to be distraction of fracture fragments at the posterior tibia with estimated separation of up to 6 mm and impression of the posterior aspect of the distal tibia x 3 mm. Subtalar joint is intact. Generalized moderate soft tissue edema is present. IMPRESSION: Moderately distracted trimalleolar fracture left ankle Electronically signed by: Santos Mckenzie M.D. 12/13/2016 3:59 PM Dictated Date/Time: 12/13/2016 3:57 PM
--- NOTE | 2016-12-13 16:01 | DIAGNOSTIC IMAGING REPORT ---
LEFT TIBIA/FIBULA 2 VIEWS ROUTINE CLINICAL HISTORY: Unable to bare weight trauma COMPARISON: None. DISCUSSION: Displaced distracted trimalleolar fracture left ankle. More proximal aspects of the tibia and fibula are unremarkable. Soft tissue vascular calcification is present. Moderate soft tissue edema IMPRESSION: Trimalleolar fracture left ankle. Remainder of the lower leg is negative Electronically signed by: Santos Mckenzie M.D. 12/13/2016 4:00 PM Dictated Date/Time: 12/13/2016 3:59 PM
[2016-12-13 16:04] LABS: BASO % 0.3 %; BASO ABS # 0.04 K/uL (0-0.2); COMPLETE YES; EOS % 0.3 %; HEMATOCRIT 39.6 % (37-47); IG% 0.3 %; LYMPH % 18.9 %; LYMPH ABS # 2.18 K/uL (1.2-3.4); MEAN CELL VOLUME 87.8 fL (80-100); MEAN CORPUSCULAR HGB CONC 35.4 g/dl (32-36); MEAN PLATELET VOLUME 10.9 fL (7.4-10.4); MONO % 6.1 %; NEUT % 74.1 %; PLATELET COUNT 245 K/uL (130-400); RED BLOOD COUNT 4.51 M/uL (4.2-5.4); WHITE BLOOD COUNT 11.51 K/uL (4.8-10.8)
[2016-12-13] MEDS ORDERED: MoRPHine SULFATE 4 MG/ML 1 ML CARP\\VIAL ONE (16:08)
[2016-12-13] MEDS ORDERED: ONDANSETRON INJ 2 MG/ML 2 ML VIAL ONE (16:08)
[2016-12-13] MEDS ORDERED: MoRPHine SULFATE 2 MG/ML CARP ONE (16:08)
[2016-12-13] MEDS ORDERED: ONDANSETRON INJ 2 MG/ML 2 ML VIAL IV STA (16:09)
[2016-12-13] MEDS ORDERED: LORAZEPAM 2 MG/ML 1 ML VIAL IV STA (16:09)
[2016-12-13 16:23] LABS: BUN/CREATININE RATIO 10.2 (10-20); CALCIUM 8.9 mg/dl (8.5-10.1); CREATININE 0.9 mg/dl (0.60-1.20); POTASSIUM 4.4 mmol/L (3.5-5.1)
[2016-12-13] MEDS ORDERED: HYDROmorphone INJ 1 MG/ML SYR IV STA (16:40)
[2016-12-13] MEDS ORDERED: ONDANSETRON HOME PACK 4MG OD TAB PO ONE (17:00)
[2016-12-13] MEDS ORDERED: OXYCODONE IR HOME PACK PO ONE (17:00)
--- NOTE | 2016-12-13 17:17 | DIAGNOSTIC IMAGING REPORT ---
LEFT ANKLE MIN 3 VIEWS ROUTINE CLINICAL HISTORY: left trimalleolar fracture, post reduction fracture COMPARISON: Prior study same date 3:38 PM DISCUSSION: Trimalleolar fracture left ankle. Mildly improved alignment compared to the prior study. There continues be distraction and to a lesser extent compression of the posterior malleolar fragment. There continues be mild anterior displacement of the anterior aspect of the tibia in relation to the talus. IMPRESSION: Trimalleolar fracture mildly improved in alignment from the prior study. Continued mild distraction/displacement of the tibial/posterior malleolar fracture Electronically signed by: Santos Mckenzie M.D. 12/13/2016 5:16 PM Dictated Date/Time: 12/13/2016 5:14 PM
[2016-12-13 17:58] LABS: INR 2.3 (0.9-1.1); PARTIAL THROMBOPLASTIN RATIO 1.3; PROTHROMBIN TIME (PATIENT) 25.7 SECONDS (9.0-12.0)
[2016-12-13] MEDS ORDERED: OXYC1TAB3 PO (18:03)
[2016-12-13] MEDS ORDERED: ONDA4TAB10 SL (18:03)
[2016-12-13 18:19] VITALS: BP 127/85; PULSE 63; O2SAT 97
--- NOTE | 2016-12-13 21:34 | EMERGENCY ROOM VISIT NOTE ---
ED Visit Note First contact with patient: 15:21 I have personally evaluated and examined this patient. I agree with assessment and plan of Ebony Pichardo PA-C. 56 yr old female with displaced trimal left ankle fracture sp fall. Pain meds given and gentle reduced with vast improvement in coloration. N/V intact post. She was placed in splint. Ortho will follow up as outpatient. Patient has vascular appt tomorrow which she will discuss if she can hold blood thinners for probable required ankle surg. Has walker at home. Discussed symptoms requiring RTED.
[2016-12-14] MEDS ORDERED: METO50TA7 PO (14:50)
[2016-12-23] MEDS ORDERED: LVNIS40 SQ (13:55)
[2016-12-23] MEDS ORDERED: CLON0.1T12 PO (14:24)
[2016-12-23] MEDS ORDERED: AMLO-114 PO (14:24)
[2016-12-23] MEDS ORDERED: RXC5 PO (14:24)
[2016-12-23] MEDS ORDERED: BTP80 PO (14:24)
[2016-12-23] MEDS ORDERED: DXY100 PO (14:24)
[2017-03-22] MEDS ORDERED: FNTTP50 TD (13:11)
[2017-03-22] MEDS ORDERED: AMLO-114 PO (13:11)
[2017-03-22] MEDS ORDERED: ONDA8TAB6 PO (13:11)
[2017-03-22] MEDS ORDERED: BUPR-79 PO (13:11)
[2017-04-16] MEDS ORDERED: augmentin PO (14:02)
[2017-05-21] MEDS ORDERED: WARF5TAB7 PO (11:51)
== END 2016-12-13 18:42 | disposition home or self-care (01) ==
LOC: C.EDB 15:05 → C.EDD 18:42
DX: S82.852A Displaced trimalleolar fracture of left lower leg, initial encounter for closed fracture (principal); W01.0XXA Fall on same level from slipping, tripping and stumbling without subsequent striking against object, initial encounter; Y93.01 Activity, walking, marching and hiking; I73.9 Peripheral vascular disease, unspecified; I10 Essential (primary) hypertension; E78.5 Hyperlipidemia, unspecified; F32.9 Major depressive disorder, single episode, unspecified; F17.200 Nicotine dependence, unspecified, uncomplicated; Z98.62 Peripheral vascular angioplasty status; Z79.01 Long term (current) use of anticoagulants; Z79.02 Long term (current) use of antithrombotics/antiplatelets; Z79.82 Long term (current) use of aspirin

== ENCOUNTER 2016-12-14 11:34 | Inpatient (IN) | payer BC ==
[~2016-12-14] VITALS: Ht 157.5 cm; Wt 74.0 kg
[2016-12-14] VITALS (8 sets, daily range): BP systolic 122–176; BP diastolic 80–96; PULSE 56–167; TEMP 36.8; O2SAT 91–99; Ht 157.5 cm; Wt 74.0 kg
[~2016-12-14 11:34] MED LIST changes: +AMLO-110 PO; -CLC100 PO; +CLON0.1T12 PO; -CMD5 PO; -CTP1 PO; -DXY100 PO; -GABA-113 PO; -LSX20 PO; -NRV5 PO; +ONDA4TAB10 SL; -OXYC-57 PO; +OXYC1TAB3 PO; +WARF-246 PO; +WARF-284 PO
[2016-12-14] MEDS ORDERED: NURSING VERBAL MED ORDER ONE (13:30)
[2016-12-14] MEDS ORDERED: SODIUM CHLORIDE 0.9% 1000ML 1,000 ML IV SCH (13:30)
[2016-12-14] MEDS ORDERED: MoRPHine SULFATE 2 MG/ML CARP ONE (13:33)
[2016-12-14] MEDS ORDERED: OXYCODONE/ACETAMINOPHEN 5-325 TAB ONE (13:48)
[2016-12-14 13:49] LABS: HEMATOCRIT 41.6 % (37-47); MEAN CELL VOLUME 91.8 fL (80-100); MEAN CORPUSCULAR HEMOGLOBIN 32.5 pg (25-34); MEAN CORPUSCULAR HGB CONC 35.3 g/dl (32-36); MEAN PLATELET VOLUME 11.2 fL (7.4-10.4); PLATELET COUNT 206 K/uL (130-400); RED BLOOD COUNT 4.53 M/uL (4.2-5.4)
[2016-12-14 13:50] LABS: INR 2.8 (0.9-1.1)
--- NOTE | 2016-12-14 13:55 | DIAGNOSTIC IMAGING REPORT ---
CHEST ONE VIEW PORTABLE HISTORY: PRE OP COMPARISON: Chest 10/08/2016. FINDINGS: No focal lung consolidations. Cardiac silhouette is normal in size. No pleural effusions. No pneumothorax. Right upper lobe calcified granulomas are again noted. IMPRESSION: No significant change compared to the prior study. No acute process. Electronically signed by: Manan Colmenares M.D. 12/14/2016 1:53 PM Dictated Date/Time: 12/14/2016 1:52 PM
[2016-12-14 14:01] LABS: BLOOD UREA NITROGEN 8 mg/dl (7-18); CALCIUM 9.7 mg/dl (8.5-10.1); CARBON DIOXIDE 25 mmol/L (21-32); CHLORIDE 96 mmol/L (98-107); GLUCOSE 120 mg/dl (70-99); SODIUM 131 mmol/L (136-145)
[2016-12-14] MEDS ORDERED: METO50TA7 PO (14:50)
--- NOTE | 2016-12-14 15:17 | Anesthesiology Progress Note ---
Anesthesia Progress Note Date of Service Dec 14, 2016. Progress Notes Ms. Garcia is a 56 year old female who is slated for ORIF left ankle on with Dr. Griffiths. Patient recently had b/l commen femoral endarectomy with iliac stent placement in [place] in Sep 2016. PMH significatn for COPD, SOB, pulmonary nodules seen on CT, PAF, HTN, HLD, PVD, GERD, anemia, depression, 80 pack year smoking history (quit 2016). EKG showed HR of 89 but on admission patient HR of 167?. EKG shows NSR and CXR shows no acute process. Of note, patient took plavix 12/14/16 and coumadin 12/13/16. Current PT 31 with INR of 2.8. If patient does go to surgery, plan will be GETA without regional block given her anticoagulated status. Consent obtained, questions answered.
[2016-12-14] MEDS: HYDROmorphone INJ 1 MG/ML SYR IV PRN ×3 (15:19→20:34)
--- NOTE | 2016-12-14 15:25 | Medical Consult ---
Consultation Date of Consultation: Dec 14, 2016. Attending Physician: Smooth Griffiths D.O. Reason for Consultation: Coumadin Reversal History of Present Illness Patient seen and examined. 56 year old female with PMHx of PVD s/p stents, afib on coumadin, HTN, Anxiety and other problems listed below is seen in consultation at the request of Dr. Griffiths for Coumadin reversal prior to surgery on left trimalleolar fracture following a mechanical fall yesterday. Patient reports pain is not well controlled. She rates it as a 15/10 and describes it as burning. She reports she has occasional palpitations, secondary to her afib. She denies fevers, chills, URI symptoms, chest pain, SOB, nausea, vomiting, diarrhea, dysuria. Patient had bilateral femoral endarterectomies and bilateral iliac stents on 10/02/16. She is on aspirin and Plavix. She saw vascular surgery today at [facility] who recommended holding Plavix for 5 days prior to surgery and to continue aspirin without interruption. Patient reports taking aspirin and Plavix today. She did not take her Coumadin. INR is 2.8. Past Medical/Surgical History Medical Problems: (1) Depression Status: Chronic (2) Dyslipidemia Status: Chronic (3) HTN (hypertension) Status: Chronic (4) PVD (peripheral vascular disease) Status: Chronic Surgical Problems: (1) H/O vascular surgery Permanent Comment: bilateral femoral endarterectomy with iliac stent 10/02/2016 Dr. Dharmesh Omalley, [facility] Status: Resolved (2) History of appendectomy Status: Resolved Social History Smoking Status: Current Some Day Smoker Alcohol Use: history of alcohol dependence Drug Use: none Marital Status: Housing Status: lives with family Occupation Status: employed Allergies Coded Allergies: Adhesives (Verified Allergy, Mild, 12/13/16) Guanfacine (Verified Allergy, Unknown, 12/13/16) Nifedipine (Verified Allergy, Unknown, 12/13/16) Current Inpatient Medications Current Inpatient Medications Medications (Trade) Dose Ordered Sig/Rosa Route Start Time Stop Time Status Last Admin Dose Admin Sodium Chloride (Nss 1000ml) 1,000 ml @ 80 mls/hr [id number] IV 12/14/16 13:30 01/13/17 13:29 12/14/16 13:41 80 MLS/HR Hydromorphone HCl (Dilaudid Inj) 1 mg Q2HWA PRN IV 12/14/16 14:45 12/28/16 14:44 UNV Review of Systems See above for pertinent positives & negatives. A total of 10 systems reviewed and were otherwise negative. Physical Exam Date Time Temp Pulse Resp B/P Pulse Ox O2 Delivery O2 Flow Rate FiO2 12/14/16 13:00 36.8 167 16 133/96 99 Room Air General Appearance: + pertinent finding (WD/WN 56 year old female lying in bed in mild distress with family at bedside ) Head: normocephalic, atraumatic Eyes: PERRL, EOMI, sclerae normal ENT: hearing grossly normal, pharynx normal Neck: supple, no JVD Respiratory/Chest: chest non-tender, lungs clear, normal breath sounds, no respiratory distress, no accessory muscle use Cardiovascular: regular rate, rhythm, no edema, no gallop, no JVD, no murmur, normal peripheral pulses Abdomen/GI: normal bowel sounds, non tender, soft Extremities/Musculoskelatal: no calf tenderness, normal capillary refill ( short left leg splint intact, motor function intact, good capillary refill ), no pedal edema, + pertinent finding Neurologic/Psych: alert, oriented x 3, + pertinent finding (no motor or sensory deficits noted on gross exam ) Skin: normal color, warm/dry, no rash Lymphatic: no adenopathy Laboratory Results Last 24 Hours Test 12/14/16 13:31 White Blood Count 10.90 K/uL Red Blood Count 4.53 M/uL Hemoglobin 14.7 g/dL Hematocrit 41.6 % Mean Corpuscular Volume 91.8 fL Mean Corpuscular Hemoglobin 32.5 pg Mean Corpuscular Hemoglobin Concent 35.3 g/dl RDW Standard Deviation 50.1 fL RDW Coefficient of Variation 14.8 % Platelet Count 206 K/uL Mean Platelet Volume 11.2 fL Prothrombin Time 31.0 SECONDS Prothromb Time International Ratio 2.8 Sodium Level 131 mmol/L Potassium Level 4.0 mmol/L Chloride Level 96 mmol/L Carbon Dioxide Level 25 mmol/L Anion Gap 10.0 mmol/L Blood Urea Nitrogen 8 mg/dl Creatinine 1.00 mg/dl Estimated GFR () 72.9 Estimated GFR (Non- 62.9 BUN/Creatinine Ratio 8.0 Random Glucose 120 mg/dl Calcium Level 9.7 mg/dl Assessment & Plan LEFT TRIMALLEOLAR FRACTURE -seen in consultation for Coumadin reversal. Discussed case with Santos orosco. Patient is also on aspirin and plavix. Vascular surgery recommends holding plavix for 5 days prior to surgery. If that is the case would recommend holding Coumadin and allowing INR to trend down; if surgery is to be sooner will consider reversal with Vitamin K. -Preop workup: CXR without acute changes, EKG nonischemic. Had echo and stress ekg in 10/13 which were stable. BNP with mild hyponatremia - possibly chronic in nature per lab review. No additional cardiovascular workup at this time -continue Aspirin perioperatively -continue BB perioperatively -resume Plavix/Coumadin as soon as okay with ortho -Pain control, bowel regimen, DVT prophylaxis, PT/OT, incentive spirometry, wound care per ortho HYPONATREMIA -131 today, appears to be chronic in nature -follow PRP daily ATRIAL FIBRILLATION -INR 2.8 -hold Coumadin for upcoming surgery -follow daily INR -continue BB -EKG with NSR rate 89, no ischemic changes PERIPHERAL VASCULAR DISEASE -s/p stenting in 10/13 -follows with [facility] Vascular Surgery -hold Plavix for surgery -continue Aspirin HTN -stable -continue metoprolol, amlodipine and clonidine ANXIETY/DEPRESSION -continue Prozac GERD -continue PPI, Zantac HLD -continue Statin H/O ALCOHOL DEPENDENCE -per chart review -reports she drinks "whatever beer is available at her house" -last drink 2 days ago -did not have any withdrawal symptoms during previous admission in September -will monitor and add gabapentin withdrawal protocol and/or Ativan if needed TOBACCO ABUSE -cessation counseling given -decline nicotine patch DVT PROPHYLAXIS: per ortho CODE STATUS: FULL CODE DISPO:per ortho Patient seen in collaboration with Dr. Oscar Thank you for this consultation. We will follow the patient with you during their hospital stay. You can reach a member of the [facility] Hospitalist Team 19/04 via pager @ [phone]. I have seen, examined and discussed this patient with Joya Emerson and I agree with the above note. Patient with ankle fracture. Medicine consulted for comanagement. Patient with paroxysmal Afib and PVD s/p stenting in 09/2016. Vitals reviewed. Unclear HR documentation of 167. HR on EKG in the 80's. PE: General- awake; alert; NAD Eyes- EOMI; no scleral icterus Neck- no stridor; trachea midline Lungs- CTA bilaterally; no wheezes/crackles Heart- RRR; no m/r/g Abdomen- soft; NTND; nBS Back- no gross abnormalities Extremities- LLE in cast Neuro- no focal deficits Skin- no appreciable rash Labs, imaging and EKG reviewed. Pre-op: Vascular surgery recommending holding clopidogrel 5 days prior to surgery (last dose 12/14/16). This was d/w Ortho. Continue aspirin. Resume clopidogrel post-op when ok with Ortho. Recent TTE and stress test 09/2016 were unremarkable. EGK without ischemic changes. CXR negative. No further evaluation prior to proceeding with surgery. If surgery postponed for 5 days, would recommend holding warfarin and let INR downtrend. If surgery to be sooner, then will give recommendations regarding reversal with vitamin K. Paroxysmal A fib: EKG with NSR. Continue metoprolol. Hold warfarin. HTN: Continue metoprolol, amlodipine and clonidine. Agree with remainder of plan as outlined above.
[2016-12-14] MEDS ORDERED: TRAZODONE HCL 50 MG TAB PO PRN (15:30)
[2016-12-14] MEDS: MoRPHine SULFATE 2 MG/ML CARP IV PRN (16:40)
--- NOTE | 2016-12-14 18:50 | HISTORY & PHYSICAL EXAMINATION ---
DATE OF ADMISSION: 12/14/2016 REASON FOR ADMISSION: Trimalleolar fracture of her left ankle. HISTORY OF PRESENT ILLNESS: The patient is a pleasant 56-year-old female who presented to the office earlier today for evaluation of her left ankle. She presented to the Emergency Department yesterday afternoon after she was walking and tripped and fell. X-rays were obtained which revealed a displaced trimalleolar fracture. It was reduced in the Emergency Room, splinted and followed up in our office today. After discussion with the patient, she also is status post bilateral femoral endarterectomies with iliac stents in September [address] Dharmesh Omalley in [place], she is also on Plavix and also Coumadin for history of atrial fibrillation. Discussed possibly reversing her Coumadin in order to have her surgery and given her history, I left it would be best for patient to be admitted. When seen in the office today, she denied chest pain, shortness of breath, nausea or vomiting. She had actually seen her vascular surgeon earlier today in [facility] who recommended holding her Plavix for 5 days prior to her surgery but recommended continuing with her aspirin. PAST MEDICAL HISTORY: 1. History of vascular disease with history of iliac stents in September 2016. 2. Peripheral vascular disease. 3. Hypertension. 4. High cholesterol. 5. Depression. ALLERGIES: 1. ADHESIVES. 2. NIFEDIPINE. CURRENT MEDICATIONS: 1. Amlodipine 5 mg daily. 2. Aspirin 81 mg daily. 3. Lipitor 80 mg daily. 4. Clonidine 1 tablet b.i.d. 5. Plavix 75 mg daily. 6. Prozac 20 mg daily. 7. Protonix 40 mg daily. 8. Coumadin 5 mg 4 days a week, 7.5 mg the other 3 days. PAST SURGICAL HISTORY: Iliac stents as mentioned above, history of appendectomy. FAMILY HISTORY: Noncontributory. SOCIAL HISTORY: She currently smokes a pack a day, history of alcohol dependence, no drug usage. She is . Lives with her family. REVIEW OF SYSTEMS: Otherwise negative. Please see HPI for pertinent positives. PHYSICAL EXAMINATION: VITAL SIGNS: Temperature 36.8, respirations 16, blood pressure 133/96, O2 sats 99%. HEENT: Normocephalic, atraumatic. CARDIAC: Regular rate and rhythm. LUNGS: Clear to auscultation without rales or wheeze bilaterally. ABDOMEN: Soft, nontender. Bowel sounds present. EXTREMITIES: Left lower extremity is splinted, was reduced and splinted in the Emergency Room. She is neurovascularly intact, is able to wiggle her toes. IMAGING DATA: Reviewed from the Emergency Department showed trimalleolar fracture with mildly improved alignment from pre-reduction films. She has displaced tibial/posterior malleolar fracture. Impression is a mildly displaced left trimalleolar fracture. IMPRESSION: 1. Left ankle trimalleolar fracture. Will require open reduction and internal fixation when she is medically stable. She is currently on Coumadin for history of atrial fibrillation. We will consult medicine for possible reversal. However, she is also on aspirin and Plavix and would typically hold the Plavix for 5 days. We will discuss with Dr. Griffiths as well as medicine going forward. In the meantime, we will continue to ice, elevate above heart level for swelling, pain medications as ordered. 2. History of atrial fibrillation, INR 2.8 today. We will hold Coumadin for upcoming surgery. 3. History of peripheral vascular disease status post iliac stenting in September and is followed by [facility] vascular surgeon. We will hold her Plavix for surgery but continue her aspirin. 4. Hypertension. 5. Anxiety. 6. Gastroesophageal reflux disease. [facility]
[2016-12-14] MEDS ORDERED: METOPROLOL TARTRATE 1 MG/ML VIAL ONE (18:56)
[2016-12-14] MEDS: OXYCODONE/ACETAMINOPHEN 5-325 TAB PO PRN ×2 (18:57→23:06)
[2016-12-14] MEDS: RANITIDINE HCL 150 MG TAB PO SCH (20:34)
[2016-12-14] MEDS: CLONIDINE HCL 0.1 MG TAB PO SCH (20:34)
[2016-12-15] VITALS (7 sets, daily range): BP systolic 106–130; BP diastolic 68–88; PULSE 77–112; TEMP 36.6–36.7; O2SAT 91–95
[2016-12-15] MEDS: HYDROmorphone INJ 1 MG/ML SYR IV PRN ×5 (01:02→11:27)
[2016-12-15] MEDS: OXYCODONE/ACETAMINOPHEN 5-325 TAB PO PRN ×5 (03:08→22:42)
[2016-12-15] MEDS: METOPROLOL TARTRATE 1 MG/ML VIAL IV PRN ×2 (05:36→11:45)
[2016-12-15] MEDS ORDERED: SODIUM CHLORIDE 0.9% 500ML 500 ML IV ONE (06:00)
[2016-12-15 06:44] LABS: BASO % 0.6 %; BASO ABS # 0.05 K/uL (0-0.2); COMPLETE YES; EOS % 1.9 %; IG% 0.4 %; LYMPH % 29.6 %; LYMPH ABS # 2.51 K/uL (1.2-3.4); MEAN CELL VOLUME 93.1 fL (80-100); MEAN CORPUSCULAR HEMOGLOBIN 31.9 pg (25-34); MEAN CORPUSCULAR HGB CONC 34.3 g/dl (32-36); MEAN PLATELET VOLUME 11.2 fL (7.4-10.4); MONO % 11.4 %; NEUT % 56.1 %; PLATELET COUNT 177 K/uL (130-400); RED BLOOD COUNT 3.76 M/uL (4.2-5.4); WHITE BLOOD COUNT 8.49 K/uL (4.8-10.8)
[2016-12-15 06:57] LABS: INR 3.4 (0.9-1.1); PROTHROMBIN TIME (PATIENT) 37.8 SECONDS (9.0-12.0)
[2016-12-15 07:31] LABS: BUN/CREATININE RATIO 11.1 (10-20); CALCIUM 8.6 mg/dl (8.5-10.1); CREATININE 0.91 mg/dl (0.60-1.20); MAGNESIUM 2.4 mg/dl (1.8-2.4); POTASSIUM 3.6 mmol/L (3.5-5.1)
[2016-12-15] MEDS ORDERED: POTASSIUM CHLORIDE 20 MEQ TABCR PO STA (07:37)
[2016-12-15] MEDS ORDERED: ROPIVACAINE 0.5% 5 MG/ML 30 ML VIAL ONE (08:40)
[2016-12-15] MEDS: PANTOprazole SOD 40 MG TAB PO SCH (08:43)
[2016-12-15] MEDS: AMLODIPINE BESYLATE 5 MG TAB PO SCH (08:43)
[2016-12-15] MEDS: METOPROLOL SUCC 25MG EXT REL TAB PO SCH (08:44)
[2016-12-15] MEDS: FLUOXETINE HCL 20 MG CAP PO SCH (08:44)
[2016-12-15] MEDS: ASPIRIN 81 MG ECTAB PO SCH (08:44)
[2016-12-15] MEDS ORDERED: ATORVASTATIN 40 MG TAB PO SCH (09:00)
[2016-12-15] MEDS ORDERED: NURSING VERBAL MED ORDER ONE ×2 (09:00→11:45)
[2016-12-15] MEDS: CLONIDINE HCL 0.1 MG TAB PO SCH ×2 (09:15→20:56)
--- NOTE | 2016-12-15 12:35 | Orthopedic Progress Note ---
Orthopedic Progress Note Date of Service Dec 15, 2016. Subjective Reports: pain controlled w PO medications, Denies: SOB, chest pain, complaints, light headedness, nausea / vomiting Objective splint C/D/I, capillary refill less than 2 sec., A&O x3, toes mobile Date Time Temp Pulse Resp B/P Pulse Ox O2 Delivery O2 Flow Rate FiO2 12/15/16 12:00 Room Air 12/15/16 11:45 124 12/15/16 11:12 36.7 79 18 122/75 95 Room Air 12/15/16 08:00 Room Air 12/15/16 07:30 36.6 80 18 125/76 93 Room Air 12/15/16 05:36 131 143/88 12/15/16 04:00 Room Air 12/15/16 03:48 36.6 81 16 122/73 95 Room Air 12/15/16 00:38 36.7 77 17 130/88 91 Room Air 12/14/16 23:59 Room Air 12/14/16 20:00 Room Air 12/14/16 19:03 155 12/14/16 18:44 36.8 130 20 122/86 95 Room Air 12/14/16 18:10 36.8 56 16 91 12/14/16 16:47 56 174/96 12/14/16 16:07 167/90 12/14/16 16:00 91 Room Air 12/14/16 15:39 36.8 89 16 176/80 91 Room Air 12/14/16 14:32 36.8 167 16 133/96 Room Air 12/14/16 13:00 36.8 167 16 133/96 99 Room Air Laboratory Results 24 Hours: Test 12/14/16 13:31 12/15/16 06:14 Hematocrit 41.6 % 35.0 % Hemoglobin 14.7 g/dL 12.0 g/dL Prothromb Time International Ratio 2.8 3.4 Prothrombin Time 31.0 SECONDS 37.8 SECONDS White Blood Count 8.49 K/uL Red Blood Count 3.76 M/uL Mean Corpuscular Volume 93.1 fL Mean Corpuscular Hemoglobin 31.9 pg Mean Corpuscular Hemoglobin Concent 34.3 g/dl Platelet Count 177 K/uL Mean Platelet Volume 11.2 fL Neutrophils (%) (Auto) 56.1 % Lymphocytes (%) (Auto) 29.6 % Monocytes (%) (Auto) 11.4 % Eosinophils (%) (Auto) 1.9 % Basophils (%) (Auto) 0.6 % Neutrophils # (Auto) 4.77 K/uL Lymphocytes # (Auto) 2.51 K/uL Monocytes # (Auto) 0.97 K/uL Eosinophils # (Auto) 0.16 K/uL Basophils # (Auto) 0.05 K/uL Assessment & Plan Assessment: LEFT TRIMALLEOLAR FRACTURE -will require ORIF when medically stable, patient on ASA, Plavix and Coumadin. Vascular surgery recommends holding plavix for 5 days prior to surgery. Currently holding Coumadin to allow INR to drop, also holding Plavix. DVT proph with JOSIE/SCD contralateral side. cont to ice/elevate, cont NWB. ATRIAL FIBRILLATION -INR 3.4 -hold Coumadin for upcoming surgery -follow daily INR -continue BB PERIPHERAL VASCULAR DISEASE -s/p stenting in 10/13 -follows with [facility] -hold Plavix for surgery -continue Aspirin HTN -stable -continue metoprolol, amlodipine and clonidine ANXIETY/DEPRESSION -continue Prozac GERD -continue PPI, Zantac HLD -continue Statin
[2016-12-15] MEDS: MoRPHine SULFATE 2 MG/ML CARP IV PRN ×3 (12:40→19:44)
--- NOTE | 2016-12-15 13:51 | DIAGNOSTIC IMAGING REPORT ---
LEFT ANKLE MIN 3 VIEWS ROUTINE CLINICAL HISTORY: left ankle fracture fracture COMPARISON: 12/13/2016 DISCUSSION: Trauma fracture of the ankle is again noted. There continues be moderate separation of the posterior malleolar fracture with a cortical step-off at the articular surface of 3.5 mm. Slight anterior displacement of the anterior tibia in relation to the talus. Area of heel spur is present. Moderate soft tissue edema is noted. There is no evidence for soft tissue swelling. IMPRESSION: Trimalleolar fracture continues show mild displacement and distraction. It is unchanged compared to the prior study. Electronically signed by: Santos Mckenzie M.D. 12/15/2016 1:50 PM Dictated Date/Time: 12/15/2016 1:49 PM
[2016-12-15] MEDS: HYDROmorphone INJ 2 MG/ML SYR/VIAL IV PRN ×4 (14:23→23:44)
--- NOTE | 2016-12-15 14:36 | Progress Note ---
Internal Med Progress Note Date of Service: Dec 15, 2016. Provider Documentation: SUBJECTIVE: only complain severe throbbing pain on left ankle getting alternate IV Dilaudid and PO Percocet having episodes of paroxysmal Afib with RVR -noted in Monitor pt denies of any feeling of palpitation , chest heaviness or SOB found to developed urinary retention this AM bladder scan shows > 460 urine pt denies of pain or discomfort initially reluctant for Torres catheter , later agreed OBJECTIVE: Vital Signs-as noted below Exam: General-in distress for left ankle pain due to fracture Eyes-sclera non icteric ENT-NAD Neck-no thyromegaly Lungs-clear , no wheeze or rales Heart-regular Abdomen-soft, non tender Extremities-left ankle in cast Neuro-no focal neurological deficit Lab data as noted below. ASSESSMENT & PLAN: LEFT TRIMALLEOLAR FRACTURE due to Mechanical fall -mentions was reaching for Car door lost her balance and fell denies of any palpitation , chest pain , dizzy spell prior to fall need to have ORIF of left ankle Orthopedics following on Coumadin for Afib -on hold for the procedure Patient is also on aspirin and Plavix has recent vascular surgery -Plavix can be on hold 5 days prior to surgery pt will need to be continued on Aspirin perioperatively -continue BB perioperatively -give with Sips of water on day of surgery -resume Plavix/Coumadin as soon as okay with ortho ATRIAL FIBRILLATION -found to be in rapid afib -ordered for IV Lopressor PRN for HR > 100 -Cardiology eval requested -hold Coumadin for upcoming surgery HYPONATREMIA -appears to be chronic in nature -follow PRP daily PERIPHERAL VASCULAR DISEASE -Patient had bilateral femoral endarterectomies and bilateral iliac stents on 10/02/16. -follows with [facility] Surgery -hold Plavix for surgery -continue Aspirin HTN -continue metoprolol, amlodipine and clonidine ANXIETY/DEPRESSION -continue Prozac GERD -continue PPI, Zantac HLD -continue Statin H/O ALCOHOL DEPENDENCE -per chart review -reports she drinks "whatever beer is available at her house" -last drink 2 days ago -did not have any withdrawal symptoms during previous admission in September -will monitor and add gabapentin withdrawal protocol and/or Ativan if needed TOBACCO ABUSE -cessation counseling given -decline nicotine patch DVT PROPHYLAXIS: hold Coumadin for Rt ankle orthopedic procedure CODE STATUS: FULL CODE DISPOSITION pre primary /Orthopedics team Vital Signs: Date Time Temp Pulse Resp B/P Pulse Ox O2 Delivery O2 Flow Rate FiO2 12/15/16 12:00 Room Air 12/15/16 11:45 124 12/15/16 11:12 36.7 79 18 122/75 95 Room Air 12/15/16 08:00 Room Air 12/15/16 07:30 36.6 80 18 125/76 93 Room Air 12/15/16 05:36 131 143/88 12/15/16 04:00 Room Air 12/15/16 03:48 36.6 81 16 122/73 95 Room Air 12/15/16 00:38 36.7 77 17 130/88 91 Room Air 12/14/16 23:59 Room Air 12/14/16 20:00 Room Air 12/14/16 19:03 155 12/14/16 18:44 36.8 130 20 122/86 95 Room Air 12/14/16 18:10 36.8 56 16 91 12/14/16 16:47 56 174/96 12/14/16 16:07 167/90 12/14/16 16:00 91 Room Air 12/14/16 15:39 36.8 89 16 176/80 91 Room Air Lab Results: Results Past 24 Hours Test 12/15/16 06:14 Range/Units White Blood Count 8.49 4.8-10.8 K/uL Red Blood Count 3.76 4.2-5.4 M/uL Hemoglobin 12.0 12.0-16.0 g/dL Hematocrit 35.0 37-47 % Mean Corpuscular Volume 93.1 80-100 fL Mean Corpuscular Hemoglobin 31.9 25-34 pg Mean Corpuscular Hemoglobin Concent 34.3 32-36 g/dl Platelet Count 177 130-400 K/uL Mean Platelet Volume 11.2 7.4-10.4 fL Neutrophils (%) (Auto) 56.1 % Lymphocytes (%) (Auto) 29.6 % Monocytes (%) (Auto) 11.4 % Eosinophils (%) (Auto) 1.9 % Basophils (%) (Auto) 0.6 % Neutrophils # (Auto) 4.77 1.4-6.5 K/uL Lymphocytes # (Auto) 2.51 1.2-3.4 K/uL Monocytes # (Auto) 0.97 0.11-0.59 K/uL Eosinophils # (Auto) 0.16 0-0.5 K/uL Basophils # (Auto) 0.05 0-0.2 K/uL RDW Standard Deviation 49.9 36.4-46.3 fL RDW Coefficient of Variation 14.7 11.5-14.5 % Immature Granulocyte % (Auto) 0.4 % Immature Granulocyte # (Auto) 0.03 0.00-0.02 K/uL Prothrombin Time 37.8 9.0-12.0 SECONDS Prothromb Time International Ratio 3.4 0.9-1.1 Sodium Level 134 136-145 mmol/L Potassium Level 3.6 3.5-5.1 mmol/L Chloride Level 100 98-107 mmol/L Carbon Dioxide Level 27 21-32 mmol/L Anion Gap 7.0 3-11 mmol/L Blood Urea Nitrogen 10 7-18 mg/dl Creatinine 0.91 0.60-1.20 mg/dl Est Creatinine Clear Calc Drug Dose 64.6 ml/min Estimated GFR () 81.7 Estimated GFR (Non- 70.5 BUN/Creatinine Ratio 11.1 10-20 Random Glucose 83 70-99 mg/dl Calcium Level 8.6 8.5-10.1 mg/dl Magnesium Level 2.4 1.8-2.4 mg/dl
[2016-12-15] MEDS ORDERED: PHYTONADIONE 5 MG TAB PO ONE (14:45)
--- NOTE | 2016-12-15 15:42 | CARDIOLOGY CONSULTATION ---
DATE OF CONSULTATION: 12/15/2016 DATE OF CONSULTATION: 12/15/2016. [facility] REASON FOR CONSULTATION: Preoperative clearance. HISTORY OF PRESENT ILLNESS: This is a 56-year-old female who is known to our service with a previous history of peripheral vascular disease and paroxysmal atrial fibrillation. In late 2015 and early 2016 she had a complex medical history. She received stents in both iliac arteries at [facility] by the vascular surgeons and then was discharged. She was then admitted to [facility] where she had a prolonged stay with volume overload and paroxysmal atrial fibrillation. During that admission her incision sites were erythematous and she was started on antibiotics. Unfortunately, after discharge, the infection did progress and she required admission to [facility] for debridement and further care. She has been seen by Dr. Kinsey who saw her in early October. At that time she was noted to be in a normal sinus rhythm. Despite her peripheral vascular disease she has no prior history of coronary artery disease. During her hospital admission at [facility] she had a nuclear stress test that showed normal perfusion. Echocardiogram performed also during that admission shows preserved left ventricular systolic function with an estimated left ventricular ejection fraction is 60-65%. There is no significant valvular pathology. She has been on a combination of aspirin, Plavix and warfarin for treatment of her vascular disease and atrial fibrillation. She has also been on metoprolol, which has been satisfactory in controlling her atrial arrhythmias. On the day of admission, she fell on some ice and has a trimalleolar fracture of her left lower extremity. She will require surgery. The timing of that surgery will depend on reversal of her Coumadin. Her Plavix was discontinued and the plan will be that she remains on aspirin. Of course it will take several days for the platelets to regain function after the Plavix is discontinued. ALLERGIES: ADHESIVES, GUAIFENESIN AND NIFEDIPINE. PAST MEDICAL HISTORY: As outlined above, the patient has a history of peripheral vascular disease with claudication and has had previous stents placed in her iliac arteries by vascular surgery at [facility]. That procedure was performed in late August or early September. She subsequently had an infection along the incision sites, which has now healed. She has known hypertension and dyslipidemia. She also has a history of paroxysmal atrial fibrillation. SOCIAL HISTORY: The patient is a smoker and there may be a history of alcohol dependence. She lives with her family. FAMILY MEDICAL HISTORY: Noncontributory. REVIEW OF SYSTEMS: A 10-point review of systems is negative except for the history of chief complaint. PHYSICAL EXAMINATION: GENERAL: She is alert and oriented; however she is in some discomfort from her fractured leg. VITAL SIGNS: Blood pressure is 130/90, pulse is regular at 95 beats per minute. She is in a sinus mechanism. HEAD, EYES, EARS, NOSE, AND THROAT: She is normocephalic. Pupils are equal and reactive to light. Extraocular muscles are intact bilaterally. NECK: The neck veins are flat. Carotids have good upstrokes bilaterally without bruits. Thyroid is nonpalpable. RESPIRATORY: Breath sounds equal bilaterally and clear to auscultation. CARDIOVASCULAR: Heart has a regular rhythm. Normal S1, S2. No S3, S4. No cardiac rubs or murmurs. GASTROINTESTINAL: Abdomen is soft, nontender without organomegaly. EXTREMITIES: The left lower extremity is in a soft cast. NEUROLOGIC: Grossly intact. SKIN: Warm to touch. LYMPH NODES: Negative to palpation. LABORATORY DATA: Hemoglobin is 14.7, WBC count is 10.9, potassium is 4.0. Creatinine is 1.0. EKG reveals sinus rhythm. IMPRESSION: 1. Left trimalleolar fracture that will require surgical repair. 2. Paroxysmal atrial fibrillation. 3. Peripheral vascular disease status post stents in the iliac arteries, . 4. Hypertension. 5. Dyslipidemia. 6. History of smoking. 7. Possible history of alcohol dependence. RECOMMENDATIONS: I believe the patient's warfarin should be reversed. It is 3.1 today. She has in a great deal of pain and the surgery may have to be completed sooner than later. She will receive oral vitamin K today. The Plavix has already been held and the anticipation is that she will remain on aspirin through her surgery. I would continue the metoprolol to control her atrial arrhythmias. Otherwise, no additional cardiac testing is indicated. She is an acceptable risk for surgery. She is currently optimally medically managed for her heart disease.
[2016-12-15] MEDS: ATORVASTATIN 40 MG TAB PO SCH (20:56)
[2016-12-15] MEDS: RANITIDINE HCL 150 MG TAB PO SCH (20:56)
[2016-12-16] MEDS: HYDROmorphone INJ 2 MG/ML SYR/VIAL IV PRN ×7 (02:01→21:36)
[2016-12-16 04:10] VITALS: BP 146/73; PULSE 85; TEMP 36.7; O2SAT 96
[2016-12-16] MEDS: OXYCODONE/ACETAMINOPHEN 5-325 TAB PO PRN ×4 (04:49→20:34)
[2016-12-16] MEDS: MoRPHine SULFATE 2 MG/ML CARP IV PRN ×3 (06:00→23:28)
[2016-12-16 06:50] LABS: HEMATOCRIT 32.8 % (37-47); MEAN CELL VOLUME 92.4 fL (80-100); MEAN CORPUSCULAR HEMOGLOBIN 31.3 pg (25-34); MEAN CORPUSCULAR HGB CONC 33.8 g/dl (32-36); MEAN PLATELET VOLUME 10.8 fL (7.4-10.4); PLATELET COUNT 168 K/uL (130-400); RED BLOOD COUNT 3.55 M/uL (4.2-5.4); WHITE BLOOD COUNT 10.89 K/uL (4.8-10.8)
[2016-12-16 07:05] LABS: INR 1.8 (0.9-1.1); PROTHROMBIN TIME (PATIENT) 19.4 SECONDS (9.0-12.0)
[2016-12-16 07:25] LABS: CALCIUM 8.5 mg/dl (8.5-10.1); CREATININE 0.7 mg/dl (0.60-1.20); POTASSIUM 4.4 mmol/L (3.5-5.1)
[2016-12-16 08:54] VITALS: BP 113/73; PULSE 79; TEMP 36.6; O2SAT 95
--- NOTE | 2016-12-16 09:50 | Orthopedic Progress Note ---
Orthopedic Progress Note Date of Service Dec 16, 2016. Subjective Denies: SOB, calf pain, chest pain, complaints, light headedness, nausea / vomiting Additional Notes: Main issue is pain control INR 1.8 Patient NPO but no plans for surgery today. Objective calves soft nontender, N/V intact, splint C/D/I, capillary refill less than 2 sec., dressing C/D/I, A&O x3, toes mobile Date Time Temp Pulse Resp B/P Pulse Ox O2 Delivery O2 Flow Rate FiO2 12/16/16 08:54 36.6 79 20 113/73 95 Room Air 12/16/16 04:32 Room Air 12/16/16 04:10 36.7 85 146/73 96 Room Air 12/16/16 00:11 Room Air 12/15/16 23:56 36.6 94 18 106/68 93 Room Air 12/15/16 20:00 Room Air 12/15/16 19:18 36.7 112 22 116/77 92 Room Air 12/15/16 16:00 Room Air 12/15/16 15:16 36.7 90 16 119/79 92 Room Air 12/15/16 12:00 Room Air 12/15/16 11:45 124 12/15/16 11:12 36.7 79 18 122/75 95 Room Air Laboratory Results 24 Hours: Test 12/16/16 06:19 Hematocrit 32.8 % Hemoglobin 11.1 g/dL Prothromb Time International Ratio 1.8 Prothrombin Time 19.4 SECONDS Assessment & Plan Assessment: LEFT TRIMALLEOLAR FRACTURE -will require ORIF when medically stable, patient on ASA, Plavix and Coumadin. Vascular surgery recommends holding plavix for 5 days prior to surgery. Currently holding Coumadin to allow INR to drop, also holding Plavix. DVT proph with JOSIE/SCD contralateral side. cont to ice/elevate, cont NWB. INR 1.8 this AM ATRIAL FIBRILLATION -INR 1.8 -hold Coumadin for upcoming surgery -follow daily INR -continue BB PERIPHERAL VASCULAR DISEASE -s/p stenting in 10/13 -follows with [facility] V[facility] -hold Plavix for surgery -continue Aspirin HTN -stable -continue metoprolol, amlodipine and clonidine ANXIETY/DEPRESSION -continue Prozac GERD -continue PPI, Zantac HLD -continue Statin Plan: No surgery today, INR 1.8, will need ORIF likely Wednesday per Dr. Fischer. Will restart diet and take off NPO today, NPO tomorrow for poss O.R.
[2016-12-16] MEDS: PANTOprazole SOD 40 MG TAB PO SCH (10:20)
[2016-12-16] MEDS: ASPIRIN 81 MG ECTAB PO SCH (10:20)
[2016-12-16] MEDS: AMLODIPINE BESYLATE 5 MG TAB PO SCH (10:21)
[2016-12-16] MEDS: METOPROLOL SUCC 25MG EXT REL TAB PO SCH (10:21)
[2016-12-16] MEDS: FLUOXETINE HCL 20 MG CAP PO SCH (10:21)
[2016-12-16] MEDS: CLONIDINE HCL 0.1 MG TAB PO SCH ×2 (10:24→19:28)
--- NOTE | 2016-12-16 10:50 | PROGRESS NOTE ---
DATE: 12/16/2016 FOLLOWUP VISIT SUBJECTIVE: The patient is a 56-year-old with a history of peripheral vascular disease and paroxysmal atrial fibrillation. She was admitted with a trimalleolar fracture of her ankle. She was on Coumadin, aspirin and Plavix. The Plavix was withheld and her Coumadin has been reversed. The plan is for her to have surgery on Wednesday. She has no cardiac complaints today and her pain seems to be better controlled. OBJECTIVE: GENERAL: She is alert and oriented. VITAL SIGNS: Blood pressure 113/73, pulse is regular at 80. She is afebrile. HEENT: She is normocephalic. Pupils are equal and reactive to light. Extraocular muscles are intact bilaterally. NECK: The neck veins are flat. Carotids have good upstrokes bilaterally without bruits. Thyroid is nonpalpable. RESPIRATORY: Breath sounds equal bilaterally and clear to auscultation. CARDIOVASCULAR: Heart has a regular rhythm. Normal S1, S2. No S3, S4. No cardiac rubs or murmurs. GASTROINTESTINAL: Abdomen is soft, nontender without organomegaly. EXTREMITIES: There is a soft cast on the right leg. NEUROLOGIC: Grossly intact. SKIN: Warm to touch. LYMPH NODES: Negative to palpation. LABORATORY DATA: INR is 1.8. IMPRESSION: 1. Left trimalleolar fracture. 2. Paroxysmal atrial fibrillation. 3. Peripheral vascular disease with stents in iliac arteries September 2016. 4. Hypertension. 5. Dyslipidemia. 6. History of smoking. 7. Possible history of alcohol dependence. RECOMMENDATIONS: The patient I believe is ready for surgery. She should proceed with acceptable low risk of cardiovascular event. She is currently optimally medically managed. She will be off her Plavix for several days on Wednesday and her INR will be therapeutic. One consideration since her INR is normalizing that we may put her on Lovenox for prophylaxis against DVT and pulmonary emboli until her surgery.
[2016-12-16 11:08] VITALS: BP 145/80; PULSE 78; TEMP 37.1; O2SAT 98
[2016-12-16 14:05] VITALS: BP 99/65; PULSE 93; TEMP 36.7; O2SAT 96
[2016-12-16 19:11] VITALS: BP 159/77; PULSE 80; TEMP 36.5; O2SAT 96
[2016-12-16] MEDS: ATORVASTATIN 40 MG TAB PO SCH (19:28)
[2016-12-16] MEDS: RANITIDINE HCL 150 MG TAB PO SCH (19:28)
--- NOTE | 2016-12-16 20:00 | Progress Note ---
Internal Med Progress Note Date of Service: Dec 16, 2016. Provider Documentation: SUBJECTIVE: complains of pain on left foot fracture site no complain of chest pain or SOB remains in sinus rhythm on monitor OBJECTIVE: Vital Signs-as noted below Exam: General-in distress for left ankle pain due to fracture Eyes-sclera non icteric ENT-NAD Neck-no thyromegaly Lungs-clear , no wheeze or rales Heart-regular Abdomen-soft, non tender Extremities-left ankle in cast Neuro-no focal neurological deficit Lab data as noted below. ASSESSMENT & PLAN: LEFT TRIMALLEOLAR FRACTURE due to Mechanical fall -mentions was reaching for Car door lost her balance and fell denies of any palpitation , chest pain , dizzy spell prior to fall scheduled to have ORIF of left ankle on Wednesday Orthopedics following as per Cardiology acceptable risk for orthopedic procedure no further testing required pt will need to be continued on Aspirin perioperatively -continue BB perioperatively -give with Sips of water on day of surgery -resume Plavix/Coumadin as soon as okay with ortho PAROXYSMAL ATRIAL FIBRILLATION HR in sinus /rate controlled -Cardiology eval appreciated -hold Coumadin for upcoming surgery HYPONATREMIA -appears to be chronic in nature -follow PRP daily PERIPHERAL VASCULAR DISEASE -Patient had bilateral femoral endarterectomies and bilateral iliac stents on 10/02/16. -[facility]s with [facility] Vascular Surgery -hold Plavix for surgery -continue Aspirin HTN -continue metoprolol, amlodipine and clonidine ANXIETY/DEPRESSION -continue Prozac GERD -continue PPI, Zantac HLD -continue Statin H/O ALCOHOL DEPENDENCE -per chart review -reports she drinks "whatever beer is available at her house" -last drink 2 days ago -did not have any withdrawal symptoms during previous admission in September -will monitor and add gabapentin withdrawal protocol and/or Ativan if needed TOBACCO ABUSE -cessation counseling given -decline nicotine patch DVT PROPHYLAXIS: hold Coumadin for Rt ankle orthopedic procedure CODE STATUS: FULL CODE DISPOSITION pre primary /Orthopedics team Vital Signs: Date Time Temp Pulse Resp B/P Pulse Ox O2 Delivery O2 Flow Rate FiO2 12/18/16 18:48 Nasal Cannula 2.0 12/18/16 18:36 36.6 77 18 147/79 100 Nasal Cannula 9.0 12/18/16 18:31 36.6 78 16 128/78 100 Nasal Cannula 4.0 12/18/16 18:20 37.0 3/24/17 18:19 76 16 12/18/16 18:19 75 16 95 12/18/16 18:15 136/85 12/18/16 18:14 73 16 97 12/18/16 18:14 73 16 12/18/16 18:10 133/83 12/18/16 18:09 76 15 12/18/16 18:09 76 15 97 12/18/16 18:08 77 17 95 12/18/16 18:08 77 17 12/18/16 18:05 131/74 12/18/16 18:03 81 17 12/18/16 18:03 83 17 98 12/18/16 18:00 125/76 12/18/16 17:58 77 19 12/18/16 17:58 76 19 96 12/18/16 17:57 80 15 94 12/18/16 17:57 80 15 12/18/16 17:55 137/66 12/18/16 17:52 79 18 96 12/18/16 17:52 79 18 12/18/16 17:50 132/79 12/18/16 17:47 85 21 94 12/18/16 17:47 83 21 12/18/16 17:45 130/92 12/18/16 17:42 80 16 93 12/18/16 17:42 80 16 12/18/16 17:40 141/80 12/18/16 17:37 77 14 96 12/18/16 17:37 77 14 12/18/16 17:36 75 21 96 12/18/16 17:36 76 21 12/18/16 17:35 141/72 12/18/16 17:31 79 22 97 12/18/16 17:31 79 22 12/18/16 17:30 115/82 12/18/16 17:26 78 17 100 12/18/16 17:26 78 17 12/18/16 17:25 145/85 12/18/16 17:21 79 15 12/18/16 17:21 82 15 100 12/18/16 17:20 159/81 12/18/16 17:16 88 16 12/18/16 17:16 88 16 174/84 100 12/18/16 17:16 36.6 88 16 174/84 99 Mask 10 12/18/16 12:54 36.8 45 18 97/64 98 Room Air 12/18/16 12:00 Room Air 12/18/16 11:46 98 128/75 12/18/16 08:16 36.4 65 18 128/75 97 12/18/16 08:00 Room Air 12/18/16 04:00 Room Air 12/18/16 04:00 36.8 79 16 123/77 92 Room Air 12/17/16 23:59 Room Air 12/17/16 23:59 36.6 80 16 112/75 95 Room Air 12/17/16 20:00 Room Air 12/17/16 19:24 36.7 115 18 109/70 94 Room Air Lab Results: Results Past 24 Hours Test 12/18/16 05:37 12/18/16 05:51 Range/Units White Blood Count 7.67 4.8-10.8 K/uL Red Blood Count 3.42 4.2-5.4 M/uL Hemoglobin 10.6 12.0-16.0 g/dL Hematocrit 30.9 37-47 % Mean Corpuscular Volume 90.4 80-100 fL Mean Corpuscular Hemoglobin 31.0 25-34 pg Mean Corpuscular Hemoglobin Concent 34.3 32-36 g/dl RDW Standard Deviation 46.9 36.4-46.3 fL RDW Coefficient of Variation 14.4 11.5-14.5 % Platelet Count 160 130-400 K/uL Mean Platelet Volume 11.3 7.4-10.4 fL Prothrombin Time 10.0 9.0-12.0 SECONDS Prothromb Time International Ratio 0.9 0.9-1.1 Sodium Level 135 136-145 mmol/L Potassium Level 3.7 3.5-5.1 mmol/L Chloride Level 100 98-107 mmol/L Carbon Dioxide Level 27 21-32 mmol/L Anion Gap 8.0 3-11 mmol/L Blood Urea Nitrogen 6 7-18 mg/dl Creatinine 0.57 0.60-1.20 mg/dl Est Creatinine Clear Calc Drug Dose 102.9 ml/min Estimated GFR () 120.1 Estimated GFR (Non- 103.6 BUN/Creatinine Ratio 9.6 10-20 Random Glucose 91 70-99 mg/dl Calcium Level 8.5 8.5-10.1 mg/dl
[2016-12-16 23:07] VITALS: BP 121/82; PULSE 71; TEMP 36.9; O2SAT 95
[2016-12-17] VITALS (8 sets, daily range): BP systolic 109–165; BP diastolic 70–129; PULSE 63–115; TEMP 36.4–36.9; O2SAT 94–100
[2016-12-17] MEDS: HYDROmorphone INJ 2 MG/ML SYR/VIAL IV PRN ×7 (01:04→20:32)
[2016-12-17] MEDS: OXYCODONE/ACETAMINOPHEN 5-325 TAB PO PRN ×4 (02:44→22:51)
[2016-12-17 06:07] LABS: HEMATOCRIT 33.1 % (37-47); MEAN CELL VOLUME 93.8 fL (80-100); MEAN CORPUSCULAR HEMOGLOBIN 31.7 pg (25-34); MEAN CORPUSCULAR HGB CONC 33.8 g/dl (32-36); MEAN PLATELET VOLUME 11.5 fL (7.4-10.4); PLATELET COUNT 157 K/uL (130-400); RED BLOOD COUNT 3.53 M/uL (4.2-5.4); WHITE BLOOD COUNT 11.01 K/uL (4.8-10.8)
[2016-12-17 06:14] LABS: PROTHROMBIN TIME (PATIENT) 10.7 SECONDS (9.0-12.0)
[2016-12-17 06:39] LABS: BUN/CREATININE RATIO 11.3 (10-20); CALCIUM 8.3 mg/dl (8.5-10.1); CREATININE 0.61 mg/dl (0.60-1.20); POTASSIUM 4.1 mmol/L (3.5-5.1)
[2016-12-17] MEDS: METOPROLOL SUCC 25MG EXT REL TAB PO SCH (07:31)
[2016-12-17] MEDS: FLUOXETINE HCL 20 MG CAP PO SCH (07:31)
[2016-12-17] MEDS: AMLODIPINE BESYLATE 5 MG TAB PO SCH (07:31)
[2016-12-17] MEDS: PANTOprazole SOD 40 MG TAB PO SCH (07:31)
[2016-12-17] MEDS: CLONIDINE HCL 0.1 MG TAB PO SCH ×2 (07:31→20:32)
[2016-12-17] MEDS: ASPIRIN 81 MG ECTAB PO SCH (07:31)
[2016-12-17] MEDS: ENOXAPARIN 40 MG/0.4 ML SYR SQ SCH (07:32)
--- NOTE | 2016-12-17 12:13 | CARDIOLOGY PROGRESS NOTE ---
DATE: 12/17/2016 DATE: 12/17/2016. FOLLOW-UP VISIT SUBJECTIVE: The patient is a 56-year-old who presented with a trimalleolar ankle fracture. She is scheduled to go to the OR tomorrow morning. She had an uneventful night. OBJECTIVE: VITAL SIGNS: Blood pressure is 120/80, pulse is regular at 84, and she is in a sinus rhythm on telemetry. GENERAL: She is afebrile. HEAD, EYES, EARS, NOSE, AND THROAT: She is normocephalic. Pupils are equal and react to light. Extraocular muscles are intact bilaterally. NECK: The neck veins are flat. Carotids have good upstrokes bilaterally without bruits. Thyroid is nonpalpable. RESPIRATORY: Breath sounds equal bilaterally and clear to auscultation. CARDIOVASCULAR: Heart has a regular rhythm. Normal S1, S2. No S3, S4. No cardiac rubs or murmurs. GASTROINTESTINAL: Abdomen is soft, nontender without organomegaly. EXTREMITIES: There is a soft cast on the left ankle. NEUROLOGIC: Grossly intact. SKIN: Warm to touch. LYMPH NODES: Negative to palpation. LABORATORY DATA: Hemoglobin is 11.2. Potassium is 4.1, creatinine is 0.61. IMPRESSION: 1. Left trimalleolar fracture. 2. Paroxysmal atrial fibrillation. 3. Peripheral vascular disease with stents in the iliac arteries September 2016. 4. Hypertension. 5. Dyslipidemia. 6. History of smoking. 7. Possible history of alcohol dependence. RECOMMENDATIONS: The patient is clinically stable and on optimal medical therapy to proceed to surgery.
--- NOTE | 2016-12-17 14:20 | ORTHOPEDIC PROGRESS NOTE ---
DATE: 12/17/2016 SUBJECTIVE: The patient is a 56-year-old white female with history of left ankle fracture who was admitted for ORIF of her left ankle once her INR was brought down; however, it was found that she had been continuing to take her Plavix up until the day of admission and patient's surgery had to be held for several days until the effects of Plavix had slowly worn off. I was asked to see the patient today due to a question of increased swelling or increased pain in the foot and upon entering the room, the patient is sitting at the bedside and states that she was getting ready to use the bathroom. OBJECTIVE :She looks relatively comfortable at this point in time and is able to get back into bed on her own power. On looking at her toes of her left foot, they are pink and warm. I removed the Santosh bandage around her posterior splint and loosened the cotton padding that was surrounding the splint itself. I split the padding over the dorsum of the foot and up into the anterior tibia to look at her ankle and her lower extremity. Her foot does not have any gross swelling to it and there is a small area of ecchymosis noted over the dorsum of the foot. There is no overt swelling of the lower extremity at this time. She has good sensation of all of her toes and is able to actively flex the toes at this time as well. Passive dorsiflexion does cause her some increased pain up the ankle and up the lower extremity over the anterior compartment, but the compartment itself is soft and does not appear to be tense at all. The cotton padding was then lightly placed back over the ankle and foot and the splint was loosely applied with her Santosh bandages. The patient stated that it did feel better with loosening the splint and the patient was planning on getting up to use the restroom. Nursing was called in to help the patient and assist her to the bedside commode. ASSESSMENT: Left ankle fracture. PLAN: I had Dr. Vasquez look at the patient as well to make sure that she was not going into early stages of a compartment syndrome which he states that he felt that she was not and that we would continue with elevation, ice and pain medication and plan for ORIF tomorrow with Dr. Fischer. The patient was asking for more pain medications. However, at this point in time she is receiving Dilaudid IV every 2 hours while awake. She is also receiving 2 mg of morphine every 2 hours p.r.n. and also has Percocet 1-2 tabs every 4 hours. Plans will be to increase the height of her elevation from 1 pillow to 2 pillows and plan for ORIF tomorrow with Dr. Fischer. CHRIS
[2016-12-17] MEDS: ATORVASTATIN 40 MG TAB PO SCH (20:05)
[2016-12-17] MEDS: RANITIDINE HCL 150 MG TAB PO SCH (20:05)
--- NOTE | 2016-12-17 21:51 | Progress Note ---
Internal Med Progress Note Date of Service: Dec 17, 2016. Provider Documentation: SUBJECTIVE: no further episode of paroxysmal afib remains rate controlled in sinus rhythm in tele no chest pain or palpitation eager to have left ankle fracture fixed continued to persisted pain requiring frequent pain medication OBJECTIVE: Vital Signs-as noted below Exam: General-in distress for left ankle pain due to fracture Eyes-sclera non icteric ENT-NAD Neck-no thyromegaly Lungs-clear , no wheeze or rales Heart-regular Abdomen-soft, non tender Extremities-left ankle in cast Neuro-no focal neurological deficit Lab data as noted below. ASSESSMENT & PLAN: LEFT TRIMALLEOLAR FRACTURE due to Mechanical fall -mentions was reaching for Car door lost her balance and fell denies of any palpitation , chest pain , dizzy spell prior to fall scheduled to have ORIF of left ankle tomorrow by Dr Fischer NPO past midnight as per Cardiology acceptable risk for orthopedic procedure no further testing required pt will need to be continued on Aspirin perioperatively -continue BB perioperatively -give with Sips of water on day of surgery -resume Plavix/Coumadin as soon as okay with ortho PAROXYSMAL ATRIAL FIBRILLATION HR in sinus /rate controlled -Cardiology eval appreciated -hold Coumadin for upcoming surgery HYPONATREMIA -appears to be chronic in nature -follow PRP daily PERIPHERAL VASCULAR DISEASE -Patient had bilateral femoral endarterectomies and bilateral iliac stents on 10/02/16. -follows with [facility] Vascular Surgery -hold Plavix for surgery -continue Aspirin HTN -continue metoprolol, amlodipine and clonidine ANXIETY/DEPRESSION -continue Prozac GERD -continue PPI, Zantac HLD -continue Statin H/O ALCOHOL DEPENDENCE -per chart review -reports she drinks "whatever beer is available at her house" -last drink 2 days ago -did not have any withdrawal symptoms during previous admission in September -will monitor and add gabapentin withdrawal protocol and/or Ativan if needed TOBACCO ABUSE -cessation counseling given -decline nicotine patch DVT PROPHYLAXIS: hold Coumadin for Rt ankle orthopedic procedure CODE STATUS: FULL CODE DISPOSITION pre primary /Orthopedics team Vital Signs: Date Time Temp Pulse Resp B/P Pulse Ox O2 Delivery O2 Flow Rate FiO2 12/18/16 18:48 Nasal Cannula 2.0 12/18/16 18:36 36.6 77 18 147/79 100 Nasal Cannula 9.0 3/24/17 18:31 36.6 78 16 128/78 100 Nasal Cannula 4.0 12/18/16 18:20 37.0 12/18/16 18:19 76 16 12/18/16 18:19 75 16 95 12/18/16 18:15 136/85 12/18/16 18:14 73 16 97 12/18/16 18:14 73 16 12/18/16 18:10 133/83 12/18/16 18:09 76 15 12/18/16 18:09 76 15 97 12/18/16 18:08 77 17 95 12/18/16 18:08 77 17 12/18/16 18:05 131/74 12/18/16 18:03 81 17 12/18/16 18:03 83 17 98 12/18/16 18:00 125/76 12/18/16 17:58 77 19 12/18/16 17:58 76 19 96 12/18/16 17:57 80 15 94 12/18/16 17:57 80 15 12/18/16 17:55 137/66 12/18/16 17:52 79 18 96 12/18/16 17:52 79 18 12/18/16 17:50 132/79 12/18/16 17:47 85 21 94 12/18/16 17:47 83 21 12/18/16 17:45 130/92 12/18/16 17:42 80 16 93 12/18/16 17:42 80 16 12/18/16 17:40 141/80 12/18/16 17:37 77 14 96 12/18/16 17:37 77 14 12/18/16 17:36 75 21 96 12/18/16 17:36 76 21 12/18/16 17:35 141/72 12/18/16 17:31 79 22 97 12/18/16 17:31 79 22 12/18/16 17:30 115/82 12/18/16 17:26 78 17 100 12/18/16 17:26 78 17 12/18/16 17:25 145/85 12/18/16 17:21 79 15 12/18/16 17:21 82 15 100 12/18/16 17:20 159/81 12/18/16 17:16 88 16 12/18/16 17:16 88 16 174/84 100 12/18/16 17:16 36.6 88 16 174/84 99 Mask 10 12/18/16 12:54 36.8 45 18 97/64 98 Room Air 12/18/16 12:00 Room Air 12/18/16 11:46 98 128/75 12/18/16 08:16 36.4 65 18 128/75 97 12/18/16 08:00 Room Air 12/18/16 04:00 Room Air 12/18/16 04:00 36.8 79 16 123/77 92 Room Air 12/17/16 23:59 Room Air 12/17/16 23:59 36.6 80 16 112/75 95 Room Air 12/17/16 20:00 Room Air 12/17/16 19:24 36.7 115 18 109/70 94 Room Air Lab Results: Results Past 24 Hours Test 12/18/16 05:37 12/18/16 05:51 Range/Units White Blood Count 7.67 4.8-10.8 K/uL Red Blood Count 3.42 4.2-5.4 M/uL Hemoglobin 10.6 12.0-16.0 g/dL Hematocrit 30.9 37-47 % Mean Corpuscular Volume 90.4 80-100 fL Mean Corpuscular Hemoglobin 31.0 25-34 pg Mean Corpuscular Hemoglobin Concent 34.3 32-36 g/dl RDW Standard Deviation 46.9 36.4-46.3 fL RDW Coefficient of Variation 14.4 11.5-14.5 % Platelet Count 160 130-400 K/uL Mean Platelet Volume 11.3 7.4-10.4 fL Prothrombin Time 10.0 9.0-12.0 SECONDS Prothromb Time International Ratio 0.9 0.9-1.1 Sodium Level 135 136-145 mmol/L Potassium Level 3.7 3.5-5.1 mmol/L Chloride Level 100 98-107 mmol/L Carbon Dioxide Level 27 21-32 mmol/L Anion Gap 8.0 3-11 mmol/L Blood Urea Nitrogen 6 7-18 mg/dl Creatinine 0.57 0.60-1.20 mg/dl Est Creatinine Clear Calc Drug Dose 102.9 ml/min Estimated GFR () 120.1 Estimated GFR (Non- 103.6 BUN/Creatinine Ratio 9.6 10-20 Random Glucose 91 70-99 mg/dl Calcium Level 8.5 8.5-10.1 mg/dl
[2016-12-18] VITALS (15 sets, daily range): BP systolic 97–147; BP diastolic 63–79; PULSE 45–117; TEMP 36.4–36.8; O2SAT 91–100
[2016-12-18] MEDS: HYDROmorphone INJ 2 MG/ML SYR/VIAL IV PRN ×4 (01:07→19:50)
[2016-12-18] MEDS: OXYCODONE/ACETAMINOPHEN 5-325 TAB PO PRN ×3 (03:35→22:12)
[2016-12-18 06:09] LABS: HEMATOCRIT 30.9 % (37-47); MEAN CELL VOLUME 90.4 fL (80-100); MEAN CORPUSCULAR HGB CONC 34.3 g/dl (32-36); MEAN PLATELET VOLUME 11.3 fL (7.4-10.4); PLATELET COUNT 160 K/uL (130-400); RED BLOOD COUNT 3.42 M/uL (4.2-5.4); WHITE BLOOD COUNT 7.67 K/uL (4.8-10.8)
[2016-12-18 06:29] LABS: INR 0.9 (0.9-1.1)
[2016-12-18 06:39] LABS: BUN/CREATININE RATIO 9.6 (10-20); CALCIUM 8.5 mg/dl (8.5-10.1); CREATININE 0.57 mg/dl (0.60-1.20); POTASSIUM 3.7 mmol/L (3.5-5.1)
[2016-12-18] MEDS ORDERED: BUPIVACAINE 0.5 % 5 MG/1 ML PF 10ML VIAL ONE (06:57)
[2016-12-18] MEDS: ASPIRIN 81 MG ECTAB PO SCH (09:00)
[2016-12-18] MEDS: ENOXAPARIN 40 MG/0.4 ML SYR SQ SCH (09:00)
[2016-12-18] MEDS: AMLODIPINE BESYLATE 5 MG TAB PO SCH (09:03)
[2016-12-18] MEDS: METOPROLOL SUCC 25MG EXT REL TAB PO SCH (09:04)
[2016-12-18] MEDS: FLUOXETINE HCL 20 MG CAP PO SCH (09:04)
[2016-12-18] MEDS: PANTOprazole SOD 40 MG TAB PO SCH (09:05)
[2016-12-18] MEDS: CLONIDINE HCL 0.1 MG TAB PO SCH ×2 (09:08→19:49)
[2016-12-18] MEDS ORDERED: ATROPINE SULFATE 0.1 MG/ML 5ML SYR IV PRN (09:30)
[2016-12-18] MEDS ORDERED: LABETALOL HCL IV 5 MG/ML 20ML IV PRN (09:30)
[2016-12-18] MEDS ORDERED: FENTANYL CITRATE INJ 50 MCG/1 ML 2 ML VIAL IV PRN (09:30)
[2016-12-18] MEDS ORDERED: ONDANSETRON INJ 2 MG/ML 2 ML VIAL IV PRN (09:30)
[2016-12-18] MEDS ORDERED: HYDROmorphone INJ 1 MG/ML SYR IV PRN (09:30)
[2016-12-18] MEDS ORDERED: EpHEDrine SULFATE INJ 50 MG/ML AMP IV PRN (09:30)
[2016-12-18] MEDS ORDERED: MEPERIDINE HCL 25 MG/ML CARP IV PRN (09:30)
[2016-12-18] MEDS: METOPROLOL TARTRATE 1 MG/ML VIAL IV PRN (11:46)
--- NOTE | 2016-12-18 12:06 | CARDIOLOGY PROGRESS NOTE ---
DATE: 12/18/2016 DATE: 12/18/2016. FOLLOW-UP VISIT SUBJECTIVE: The patient is a 56-year-old female with a trimalleolar ankle fracture who is scheduled to go to the OR later today. She also has a history of peripheral vascular disease and paroxysmal atrial fibrillation. The patient had an uneventful night but had several runs of asymptomatic PAF this morning. OBJECTIVE: VITAL SIGNS: Blood pressure is 130/80, pulse is regular at 80. She is afebrile. GENERAL: She is alert and oriented. HEAD, EYES, EARS, NOSE, AND THROAT: She is normocephalic. Pupils are equal and reactive to light. Extraocular muscles are intact bilaterally. NECK: The neck veins are flat. Carotids have good upstrokes bilaterally without bruits. Thyroid is nonpalpable. RESPIRATORY: Breath sounds are equal bilaterally and clear to auscultation. CARDIOVASCULAR: Heart has regular rhythm. Normal S1, S2. No S3, S4. No cardiac rubs or murmurs. GASTROINTESTINAL: Abdomen is soft, nontender without organomegaly. EXTREMITIES: Free of edema, digit clubbing, or cyanosis. NEUROLOGIC: Grossly intact. SKIN: Warm to touch. LYMPH NODES: Negative to palpation. LABORATORY DATA: Hemoglobin is 10.6. Potassium is 3.7, creatinine is 0.57. IMPRESSION: 1. Left trimalleolar fracture. 2. Paroxysmal atrial fibrillation. 3. Peripheral vascular disease with stents in the iliac arteries September 2016. 4. Hypertension. 5. Dyslipidemia. 6. History of smoking. RECOMMENDATIONS: The patient will have her p.r.n. dose of metoprolol now. She has not really been on anything for control of her atrial arrhythmias. I am confident that once she has the metoprolol on board that she will still be ready for surgery. She has been off of anticoagulation now for several days as well as her Plavix in anticipation of the surgery. We will see her postop.
[2016-12-18] MEDS ORDERED: BUPIVACAINE/EPINEPHRINE 0.5% MPF 1:200,000 30 ML VIAL ONE (13:32)
[2016-12-18] MEDS ORDERED: DEXAMETHASONE SOD INJ 4 MG/ML VIAL ONE (13:33)
[2016-12-18] MEDS ORDERED: ONDANSETRON INJ 2 MG/ML 2 ML VIAL ONE (13:33)
[2016-12-18] MEDS ORDERED: LIDOCAINE HCL 2% 2 ML VIAL (20MG/ML) ONE (13:33)
[2016-12-18] MEDS ORDERED: MIDAZOLAM HCL 1 MG/ML 2ML VIAL ONE ×2 (13:34→14:55)
[2016-12-18] MEDS ORDERED: PROPOFOL IV EMULSION 10 MG/ML 20 ML VIAL IV ONE (13:34)
[2016-12-18] MEDS ORDERED: FENTANYL CITRATE INJ 50 MCG/1 ML 2 ML VIAL ONE ×5 (13:34→17:31)
--- NOTE | 2016-12-18 13:41 | History & Physical Bridge Note ---
H&P Re-Evaluation Bridge Note: I have examined the patient, reviewed the History & Physical and in the interval since the performance of the History & Physical I have noted the following changes of clinical significance: No changes noted
[2016-12-18] MEDS ORDERED: BACITRACIN 50000 UNIT VIAL ONE (13:48)
[2016-12-18] MEDS ORDERED: CEFAZOLIN IV 2,000 MG/60 ML D5W IV ONE (13:53)
[2016-12-18] MEDS ORDERED: NURSING VERBAL MED ORDER ONE (14:00)
[2016-12-18] MEDS ORDERED: NEOSTIGMINE METHYLSULFATE 5 MG/5 ML SYR ONE (14:37)
[2016-12-18] MEDS ORDERED: GLYCOPYRROLATE INJ 0.2 MG/ML VIAL ONE (14:37)
[2016-12-18] MEDS ORDERED: ROCURONIUM BROMIDE 10 MG/ML 5 ML VIAL ONE (14:37)
[2016-12-18] MEDS ORDERED: LABETALOL HCL IV 5 MG/ML 20ML IV ONE (16:46)
--- NOTE | 2016-12-18 17:03 | DIAGNOSTIC IMAGING REPORT ---
Left ankle LEFT ANKLE 2 VIEWS CLINICAL HISTORY: LT ORIF operative reduction TECHNIQUE: Image intensifier COMPARISON STUDY: 12/13/2016 FINDINGS: Findings consistent with open reduction internal fixation. Multiple plates and screws are present. Ankle mortise is aligned anatomically. IMPRESSION: Anatomic alignment status open reduction internal fixation left ankle Electronically signed by: Santos Mckenzie M.D. 12/18/2016 5:02 PM Dictated Date/Time: 12/18/2016 5:01 PM
--- NOTE | 2016-12-18 17:03 | [facility] Post Operative Brief Note ---
Immediate Operative Summary Operative Date Dec 18, 2016. Pre-Operative Diagnosis Left closed displaced ankle trimalleolar fracture Post-Operative Diagnosis Left closed displaced ankle trimalleolar fracture Procedure(s) Performed ORIF closed displaced trimalleolar left ankle fracture Surgeon Dr. Fischer Store [employer] Surgeon(s) Skyler Arrington PA-C Estimated Blood Loss 4cc Findings See Dict Specimens None Drains None Anesthesia GLMA w/ popliteal block Complication(s) None Disposition Recovery Room / PACU
--- NOTE | 2016-12-18 17:51 | Anesthesiology Progress Note ---
Anesthesia Post Op Note Date & Time Dec 18, 2016 at 17:51 Vital Signs Pain Intensity: 6.0 Vital Signs Past 12 Hours Date Time Temp Pulse Resp B/P Pulse Ox O2 Delivery O2 Flow Rate FiO2 12/18/16 17:36 75 21 96 12/18/16 17:36 76 21 12/18/16 17:35 141/72 12/18/16 17:31 79 22 97 12/18/16 17:31 79 22 12/18/16 17:30 115/82 12/18/16 17:26 78 17 100 12/18/16 17:26 78 17 12/18/16 17:25 145/85 12/18/16 17:21 79 15 12/18/16 17:21 82 15 100 12/18/16 17:20 159/81 12/18/16 17:16 88 16 12/18/16 17:16 88 16 174/84 100 12/18/16 17:16 36.6 88 16 174/84 99 Mask 10 12/18/16 12:54 36.8 45 18 97/64 98 Room Air 12/18/16 12:00 Room Air 12/18/16 11:46 98 128/75 12/18/16 08:16 36.4 65 18 128/75 97 12/18/16 08:00 Room Air Notes Mental Status: alert / awake / arousable, participated in evaluation Pt Amnestic to Procedure: Yes Nausea / Vomiting: adequately controlled Pain: adequately controlled Airway Patency, RR, SpO2: stable & adequate BP & HR: stable & adequate Hydration State: stable & adequate Anesthetic Complications: no major complications apparent
--- NOTE | 2016-12-18 17:54 | DIAGNOSTIC IMAGING REPORT ---
ANKLE 2 VIEWS CLINICAL HISTORY: post-op post procedure COMPARISON: None. DISCUSSION: Trimalleolar fracture. Open reduction internal fixation. Bony alignment is anatomic. Patient is in casting material. Expected posttraumatic and postoperative soft tissue change IMPRESSION: Anatomic alignment status post open reduction internal fixation Electronically signed by: Santos Mckenzie M.D. 12/18/2016 5:53 PM Dictated Date/Time: 12/18/2016 5:53 PM
--- NOTE | 2016-12-18 19:16 | Progress Note ---
Internal Med Progress Note Date of Service: Dec 18, 2016. Provider Documentation: SUBJECTIVE: S/P ORIF of left trimalleolar fracture pain much better controlled no complain of chest pain or SOB OBJECTIVE: Vital Signs-as noted below Exam: General-comfortable , no sign of distress Eyes-sclera non icteric ENT-NAD Neck-no thyromegaly Lungs-clear , no wheeze or rales Heart-regular Abdomen-soft, non tender Extremities-s/p ORIF Of left ankle /left leg in cast Neuro-no focal neurological deficit Lab data as noted below. ASSESSMENT & PLAN: LEFT TRIMALLEOLAR FRACTURE due to Mechanical fall -mentions was reaching for Car door lost her balance and fell denies of any palpitation , chest pain , dizzy spell prior to fall s/p ORIF of left ankle today by Dr Fischer pt will need to be continued on Aspirin perioperatively -continue BB perioperatively -give with Sips of water on day of surgery -resume Plavix/Coumadin as soon as okay with ortho PAROXYSMAL ATRIAL FIBRILLATION HR in sinus /rate controlled -Cardiology eval appreciated - Coumadin on hold for surgery -should be resumed as soon as possible when bleeding risk is acceptable per Ortho HYPONATREMIA - chronic PERIPHERAL VASCULAR DISEASE -Patient had bilateral femoral endarterectomies and bilateral iliac stents on 10/02/16. -follows with [facility] Vascular Surgery -hold Plavix for surgery -will be resumed when OK per Ortho post op -continue Aspirin HTN -continue metoprolol, amlodipine and clonidine ANXIETY/DEPRESSION -continue Prozac GERD -continue PPI, Zantac HLD -continue Statin H/O ALCOHOL DEPENDENCE -no evidence of withdrawal symptoms TOBACCO ABUSE -cessation counseling given -decline nicotine patch DVT PROPHYLAXIS: per Ortho CODE STATUS: FULL CODE DISPOSITION pre primary /Orthopedics team Vital Signs: Date Time Temp Pulse Resp B/P Pulse Ox O2 Delivery O2 Flow Rate FiO2 12/18/16 19:47 36.4 117 19 125/65 98 Nasal Cannula 2.0 12/18/16 19:28 86 114/63 100 Nasal Cannula 2.0 12/18/16 19:21 83 115/69 100 Nasal Cannula 2.0 12/18/16 19:07 85 145/68 98 Nasal Cannula 2.0 12/18/16 18:52 75 138/74 100 Nasal Cannula 2.0 3/24/17 18:48 Nasal Cannula 2.0 12/18/16 18:36 36.6 77 18 147/79 100 Nasal Cannula 9.0 12/18/16 18:31 36.6 78 16 128/78 100 Nasal Cannula 4.0 12/18/16 18:20 37.0 12/18/16 18:19 76 16 12/18/16 18:19 75 16 95 12/18/16 18:15 136/85 12/18/16 18:14 73 16 97 12/18/16 18:14 73 16 12/18/16 18:10 133/83 12/18/16 18:09 76 15 12/18/16 18:09 76 15 97 12/18/16 18:08 77 17 95 12/18/16 18:08 77 17 12/18/16 18:05 131/74 12/18/16 18:03 81 17 12/18/16 18:03 83 17 98 12/18/16 18:00 125/76 12/18/16 17:58 77 19 12/18/16 17:58 76 19 96 12/18/16 17:57 80 15 94 12/18/16 17:57 80 15 12/18/16 17:55 137/66 12/18/16 17:52 79 18 96 12/18/16 17:52 79 18 12/18/16 17:50 132/79 12/18/16 17:47 85 21 94 12/18/16 17:47 83 21 12/18/16 17:45 130/92 12/18/16 17:42 80 16 93 12/18/16 17:42 80 16 12/18/16 17:40 141/80 12/18/16 17:37 77 14 96 12/18/16 17:37 77 14 12/18/16 17:36 75 21 96 12/18/16 17:36 76 21 12/18/16 17:35 141/72 12/18/16 17:31 79 22 97 12/18/16 17:31 79 22 12/18/16 17:30 115/82 12/18/16 17:26 78 17 100 12/18/16 17:26 78 17 12/18/16 17:25 145/85 12/18/16 17:21 79 15 12/18/16 17:21 82 15 100 12/18/16 17:20 159/81 12/18/16 17:16 88 16 12/18/16 17:16 88 16 174/84 100 12/18/16 17:16 36.6 88 16 174/84 99 Mask 10 12/18/16 12:54 36.8 45 18 97/64 98 Room Air 12/18/16 12:00 Room Air 12/18/16 11:46 98 128/75 12/18/16 08:16 36.4 65 18 128/75 97 12/18/16 08:00 Room Air 12/18/16 04:00 Room Air 12/18/16 04:00 36.8 79 16 123/77 92 Room Air 12/17/16 23:59 Room Air 12/17/16 23:59 36.6 80 16 112/75 95 Room Air Lab Results: Results Past 24 Hours Test 12/18/16 05:37 12/18/16 05:51 Range/Units White Blood Count 7.67 4.8-10.8 K/uL Red Blood Count 3.42 4.2-5.4 M/uL Hemoglobin 10.6 12.0-16.0 g/dL Hematocrit 30.9 37-47 % Mean Corpuscular Volume 90.4 80-100 fL Mean Corpuscular Hemoglobin 31.0 25-34 pg Mean Corpuscular Hemoglobin Concent 34.3 32-36 g/dl RDW Standard Deviation 46.9 36.4-46.3 fL RDW Coefficient of Variation 14.4 11.5-14.5 % Platelet Count 160 130-400 K/uL Mean Platelet Volume 11.3 7.4-10.4 fL Prothrombin Time 10.0 9.0-12.0 SECONDS Prothromb Time International Ratio 0.9 0.9-1.1 Sodium Level 135 136-145 mmol/L Potassium Level 3.7 3.5-5.1 mmol/L Chloride Level 100 98-107 mmol/L Carbon Dioxide Level 27 21-32 mmol/L Anion Gap 8.0 3-11 mmol/L Blood Urea Nitrogen 6 7-18 mg/dl Creatinine 0.57 0.60-1.20 mg/dl Est Creatinine Clear Calc Drug Dose 102.9 ml/min Estimated GFR () 120.1 Estimated GFR (Non- 103.6 BUN/Creatinine Ratio 9.6 10-20 Random Glucose 91 70-99 mg/dl Calcium Level 8.5 8.5-10.1 mg/dl
[2016-12-18] MEDS: ATORVASTATIN 40 MG TAB PO SCH (19:50)
[2016-12-18] MEDS: RANITIDINE HCL 150 MG TAB PO SCH (19:51)
--- NOTE | 2016-12-18 20:51 | OPERATIVE REPORT ---
DATE OF OPERATION: 12/18/2016 PREOPERATIVE DIAGNOSIS: Left displaced trimalleolar ankle fracture. POSTOPERATIVE DIAGNOSIS: Same. PROCEDURE: Open reduction and internal fixation, left closed displaced trimalleolar ankle fracture. SURGEON: Dr. Fischer. PUBLIC POLICY PROFESSOR: Skyler Arrington PA-C. Due to the complex nature of the procedure, the entire surgery was performed with the multimedia assistant of MAYI Bar. The merchandising assistant, under direct supervision, was involved in the actual performance of all aspects of the surgical procedure including hemostasis, tissue retraction and incision, instrument management, patient positioning, and wound closure. ANESTHESIA: General LMA with popliteal block. SPECIMENS: None. DRAINS: None. COMPLICATIONS: None. BLOOD LOSS: 4 mL. PERTINENT HISTORY: This is a 56-year-old female who sustained a twisting fall on to her left ankle. She had a displaced trimalleolar ankle fracture. Here at [facility] splinted and referred to [facility]. She was seen and evaluated and then admitted to the hospital to correct her multimodal coagulopathy prior to surgery as she has a complicated medical history. The patient was scheduled for surgery as indicated. All potential risks, benefits, complications, alternatives, rehab, potential for incomplete relief of symptoms, need for further surgery, DVT, PE, , persistent pain, swelling, scarring, weakness, neurovascular injury, wound complications, hardware failure, nonunion, malunion were discussed with the patient. The patient decided to proceed with the procedure as indicated. DESCRIPTION OF PROCEDURE: After popliteal block was administered, the patient was taken to the operative suite, placed supine on the operating room table. I reviewed the consent and identification of proper operative site. The patient was anesthetized, LMA was placed. Tourniquet was placed high on the left thigh over cast padding. Left lower extremity was then sterilely prepped and draped in usual fashion, elevated and exsanguinated with an Esmarch bandage, tourniquet inflated to 300 mmHg. Next, a 15-blade scalpel was used to make an incision over the lateral malleolus. The incision was deepened through subcutaneous tissue. Meticulous hemostasis was achieved with electrocautery. Full thickness skin flaps developed. The sensory cutaneous nerve and the peroneal tendons were identified, freed, retracted, and protected. Next, periosteum over the fracture was then carefully incised with 15-blade scalpel, elevated, irrigated and the fracture was then reduced with bone clamps under live fluoroscopic assistance. Next, a single 3.5 mm lag screw was placed from anterior to posterior using standard lag technique followed by contouring of an 8-hole one-third tubular locking Synthes plate and this was then firmly affixed to the lateral aspect of the fibula stabilizing the fracture of the fibula and extending the ankle back out to anatomic length. This helped to passively reduce the large posterior malleolus fracture. Next, attention was then directed toward the medial malleolus. A small incision was made over the medial malleolus under live fluoroscopic assistance. The medial fracture was noted to be well reduced and then two 4.0 cannulated screws were placed under live fluoroscopic assistance stabilizing and compressing the medial malleolar fracture. Next, careful dissection posterior to the fibula and posterior to the tibia was performed with a Perea elevator, elevating all soft tissues and neurovascular bundle, followed by use of a 15-blade scalpel was used to make a small stab incision in the anterior aspect of the ankle with careful dissection with hemostat down to the level of the bone. Next, a large tenaculum Waber bone reduction forceps was then used to reduce and compress into anatomic alignment the posterior malleolar fracture fragment. Next, 2 anterior to posterior 4.0 cannulated screws were placed under live fluoroscopic assistance with bicortical purchase and compression to stabilize the posterior malleolar fragment into near anatomic position. Next, all wounds were copiously irrigated with sterile normal saline. The lateral deep soft tissue was then closed using 2-0 Vicryl and then all incisions were closed using buried interrupted 3-0 Vicryl in the dermis and then skin closure was performed with 4-0 nylon. Next, sterile compressive dressing and bulky Ousmane Carbajal plaster splint was applied with the foot in neutral dorsiflexion. The ankle was overwrapped with an Santosh wrap. Tourniquet was released. The patient was awakened and taken to recovery in stable condition. I attest to the content of the Intraoperative Record and any orders documented therein. Any exceptio ns are noted below.
[2016-12-18] MEDS: CEFAZOLIN IV 1,000 MG in DEXTROSE 5% 50ML 50 ML IV SCH (22:12)
[2016-12-19] VITALS (7 sets, daily range): BP systolic 104–155; BP diastolic 63–86; PULSE 66–115; TEMP 36.6–37.1; O2SAT 94–99
[2016-12-19] MEDS: HYDROmorphone INJ 2 MG/ML SYR/VIAL IV PRN ×6 (00:06→22:45)
[2016-12-19] MEDS: OXYCODONE/ACETAMINOPHEN 5-325 TAB PO PRN ×5 (02:20→20:02)
[2016-12-19] MEDS: CEFAZOLIN IV 1,000 MG in DEXTROSE 5% 50ML 50 ML IV SCH ×2 (05:16→13:57)
[2016-12-19 07:00] LABS: HEMATOCRIT 28.6 % (37-47); MEAN CELL VOLUME 91.4 fL (80-100); MEAN CORPUSCULAR HGB CONC 33.9 g/dl (32-36); MEAN PLATELET VOLUME 11.6 fL (7.4-10.4); PLATELET COUNT 157 K/uL (130-400); RED BLOOD COUNT 3.13 M/uL (4.2-5.4); WHITE BLOOD COUNT 9.61 K/uL (4.8-10.8)
[2016-12-19 07:15] LABS: INR 0.9 (0.9-1.1)
[2016-12-19 07:26] LABS: BUN/CREATININE RATIO 7.4 (10-20); CALCIUM 8.5 mg/dl (8.5-10.1); CREATININE 0.57 mg/dl (0.60-1.20); POTASSIUM 3.8 mmol/L (3.5-5.1)
[2016-12-19] MEDS: CLONIDINE HCL 0.1 MG TAB PO SCH ×2 (07:36→20:01)
[2016-12-19] MEDS: AMLODIPINE BESYLATE 5 MG TAB PO SCH (07:36)
[2016-12-19] MEDS: ASPIRIN 81 MG ECTAB PO SCH (07:36)
[2016-12-19] MEDS: METOPROLOL SUCC 25MG EXT REL TAB PO SCH (07:37)
[2016-12-19] MEDS: FLUOXETINE HCL 20 MG CAP PO SCH (07:38)
[2016-12-19] MEDS: PANTOprazole SOD 40 MG TAB PO SCH (07:38)
[2016-12-19] MEDS: ENOXAPARIN 40 MG/0.4 ML SYR SQ SCH (07:39)
--- NOTE | 2016-12-19 09:18 | Orthopedic Progress Note ---
Orthopedic Progress Note Date of Service Dec 19, 2016. Subjective Post OP Day: 1 Reports: feeling well, Denies: SOB, calf pain, chest pain, light headedness, nausea / vomiting Objective calves soft nontender, N/V intact, splint C/D/I, capillary refill less than 2 sec., A&O x3, toes mobile Date Time Temp Pulse Resp B/P Pulse Ox O2 Delivery O2 Flow Rate FiO2 12/19/16 08:00 Room Air 12/19/16 07:58 36.7 69 18 155/83 99 Nasal Cannula 2.0 12/19/16 04:00 Room Air 12/19/16 03:31 36.6 66 17 147/75 95 Room Air 12/19/16 02:00 71 124/63 96 Room Air 12/19/16 01:00 70 132/76 94 Room Air 12/19/16 00:00 86 104/66 95 Room Air 12/18/16 23:59 Nasal Cannula 12/18/16 23:00 36.4 81 20 123/70 97 Nasal Cannula 2.0 12/18/16 22:00 89 127/72 98 Nasal Cannula 2.0 12/18/16 21:30 85 108/72 97 Nasal Cannula 2.0 12/18/16 20:57 79 112/72 91 Nasal Cannula 2.0 12/18/16 20:27 90 125/77 12/18/16 20:00 Nasal Cannula 2.0 12/18/16 19:47 36.4 117 19 125/65 98 Nasal Cannula 2.0 12/18/16 19:28 86 114/63 100 Nasal Cannula 2.0 12/18/16 19:21 83 115/69 100 Nasal Cannula 2.0 12/18/16 19:07 85 145/68 98 Nasal Cannula 2.0 12/18/16 18:52 75 138/74 100 Nasal Cannula 2.0 12/18/16 18:48 Nasal Cannula 2.0 12/18/16 18:36 36.6 77 18 147/79 100 Nasal Cannula 9.0 12/18/16 18:31 36.6 78 16 128/78 100 Nasal Cannula 4.0 12/18/16 18:20 37.0 12/18/16 18:19 76 16 12/18/16 18:19 75 16 95 12/18/16 18:15 136/85 12/18/16 18:14 73 16 97 12/18/16 18:14 73 16 12/18/16 18:10 133/83 12/18/16 18:09 76 15 12/18/16 18:09 76 15 97 12/18/16 18:08 77 17 95 12/18/16 18:08 77 17 12/18/16 18:05 131/74 12/18/16 18:03 81 17 12/18/16 18:03 83 17 98 12/18/16 18:00 125/76 12/18/16 17:58 77 19 12/18/16 17:58 76 19 96 12/18/16 17:57 80 15 94 12/18/16 17:57 80 15 12/18/16 17:55 137/66 12/18/16 17:52 79 18 96 12/18/16 17:52 79 18 12/18/16 17:50 132/79 12/18/16 17:47 85 21 94 12/18/16 17:47 83 21 12/18/16 17:45 130/92 12/18/16 17:42 80 16 93 12/18/16 17:42 80 16 12/18/16 17:40 141/80 12/18/16 17:37 77 14 96 12/18/16 17:37 77 14 12/18/16 17:36 75 21 96 12/18/16 17:36 76 21 12/18/16 17:35 141/72 12/18/16 17:31 79 22 97 12/18/16 17:31 79 22 12/18/16 17:30 115/82 12/18/16 17:26 78 17 100 12/18/16 17:26 78 17 12/18/16 17:25 145/85 12/18/16 17:21 79 15 12/18/16 17:21 82 15 100 12/18/16 17:20 159/81 12/18/16 17:16 88 16 12/18/16 17:16 88 16 174/84 100 12/18/16 17:16 36.6 88 16 174/84 99 Mask 10 12/18/16 12:54 36.8 45 18 97/64 98 Room Air 12/18/16 12:00 Room Air 12/18/16 11:46 98 128/75 Laboratory Results 24 Hours: Test 12/19/16 06:16 Hematocrit 28.6 % Hemoglobin 9.7 g/dL Prothromb Time International Ratio 0.9 Prothrombin Time 10.0 SECONDS Assessment & Plan Assessment: LEFT TRIMALLEOLAR FRACTURE -POD#1 SP ORIF LEFT ANKLE ATRIAL FIBRILLATION -MAY RESUME COUMADIN ? CURRENTLY ORDERED LOVENOX. -follow daily INR -continue BB PERIPHERAL VASCULAR DISEASE -s/p stenting in 10/13 -follows with [facility] Vascular Surgery -MAY RESUME PLAVIX. -continue Aspirin HTN -stable -continue metoprolol, amlodipine and clonidine ANXIETY/DEPRESSION -continue Prozac GERD -continue PPI, Zantac HLD -continue Statin
[2016-12-19] MEDS: CLOPIDOGREL BISULFATE 75 MG TAB PO SCH (11:45)
[2016-12-19] MEDS: WARFARIN SOD 7.5 MG TAB PO SCH (15:38)
[2016-12-19] MEDS: METOPROLOL TARTRATE 1 MG/ML VIAL IV PRN (15:58)
[2016-12-19] MEDS ORDERED: SOTALOL HCL 80 MG TAB PO ONE (16:00)
--- NOTE | 2016-12-19 16:10 | Progress Note ---
Internal Med Progress Note Date of Service: Dec 19, 2016. Provider Documentation: SUBJECTIVE: developed rapid Afib with RVR HR in 140's approx 3: 30 pM evaluated at bedside , comfortable ; doing shefali mentions that her left ankle bothering her not aware of any chest discomfort, chest heaviness, no palpitation or dizzy spell 5 mg IV Lopressor given pt converted to sinus with rate controlled @ 74 Stat EKG -shows sinus at 74 Bpm Qtc 426 OBJECTIVE: Vital Signs-as noted below Exam: General-comfortable , no sign of distress Eyes-sclera non icteric ENT-NAD Neck-no thyromegaly Lungs-clear , no wheeze or rales Heart-regular Abdomen-soft, non tender Extremities-s/p ORIF Of left ankle /left leg in cast Neuro-no focal neurological deficit Lab data as noted below. 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 cardiology updated appreciate eval pt will be started on Sotalol Lopressor will be D/irineo will need to be on Tele and daily EKG monitoring for Qtc change Coumadin resumed , monitor INR closely full therapeutic anticoagulation avoided due to recent ankle surgery on Aspirin , Plavix LEFT TRIMALLEOLAR FRACTURE due to Mechanical fall -mentions was reaching for Car door lost her balance and fell denies of any palpitation , chest pain , dizzy spell prior to fall s/p ORIF of left ankle by Dr Fischer POD # 1 recovering well post op evaluated by Ortho today pt can participate in PT/OT non wt bearing on left lower ext Aspirin , Plavix and Coumadin resumed on Lovenox 40mg SC daily for DVT prophylaxis HYPONATREMIA - chronic follow PRP PERIPHERAL VASCULAR DISEASE -Patient had bilateral femoral endarterectomies and bilateral iliac stents on 10/02/16. -follows with [facility] Vascular Surgery -Aspirin /Plavix resumed HTN -BP remains stable -as per Cardiology -clonidine will be weaned off -Lopressor D/irineo -started on Sotalol for rate controlled -cont Norvasc ( out pt meds) ANXIETY/DEPRESSION -continue Prozac GERD -continue PPI, Zantac HLD -continue Statin H/O ALCOHOL DEPENDENCE -no evidence of withdrawal symptoms TOBACCO ABUSE -cessation counseling given -decline nicotine patch DVT PROPHYLAXIS: on Coumadin Lovenox sub q 40 mg daily -prophylaxis dose till INR therapeutic CODE STATUS: FULL CODE DISPOSITION continue to monitor pt in Tele as per Orthopedics team -pt is stable post op from Left ankle ORIF needs medication adjustment for Paroxysmal Afib Cardiology following closely given medical and Cardiac complexity -[facility] Hospitalist team will be happy to accept pt to our service for further medical management Called Orthopedics outreach consultant MAYI Nieves PA-C , left message Vital Signs: Date Time Temp Pulse Resp B/P Pulse Ox O2 Delivery O2 Flow Rate FiO2 12/19/16 15:58 136 119/74 12/19/16 15:23 Room Air 12/19/16 11:48 Room Air 12/19/16 08:00 Room Air 12/19/16 07:58 36.7 69 18 155/83 99 Nasal Cannula 2.0 12/19/16 04:00 Room Air 12/19/16 03:31 36.6 66 17 147/75 95 Room Air 12/19/16 02:00 71 124/63 96 Room Air 12/19/16 01:00 70 132/76 94 Room Air 12/19/16 00:00 86 104/66 95 Room Air 12/18/16 23:59 Nasal Cannula 12/18/16 23:00 36.4 81 20 123/70 97 Nasal Cannula 2.0 12/18/16 22:00 89 127/72 98 Nasal Cannula 2.0 12/18/16 21:30 85 108/72 97 Nasal Cannula 2.0 12/18/16 20:57 79 112/72 91 Nasal Cannula 2.0 12/18/16 20:27 90 125/77 12/18/16 20:00 Nasal Cannula 2.0 12/18/16 19:47 36.4 117 19 125/65 98 Nasal Cannula 2.0 12/18/16 19:28 86 114/63 100 Nasal Cannula 2.0 12/18/16 19:21 83 115/69 100 Nasal Cannula 2.0 12/18/16 19:07 85 145/68 98 Nasal Cannula 2.0 12/18/16 18:52 75 138/74 100 Nasal Cannula 2.0 12/18/16 18:48 Nasal Cannula 2.0 12/18/16 18:36 36.6 77 18 147/79 100 Nasal Cannula 9.0 12/18/16 18:31 36.6 78 16 128/78 100 Nasal Cannula 4.0 12/18/16 18:20 37.0 12/18/16 18:19 76 16 12/18/16 18:19 75 16 95 12/18/16 18:15 136/85 12/18/16 18:14 73 16 97 12/18/16 18:14 73 16 12/18/16 18:10 133/83 12/18/16 18:09 76 15 12/18/16 18:09 76 15 97 12/18/16 18:08 77 17 95 12/18/16 18:08 77 17 12/18/16 18:05 131/74 12/18/16 18:03 81 17 12/18/16 18:03 83 17 98 12/18/16 18:00 125/76 12/18/16 17:58 77 19 12/18/16 17:58 76 19 96 12/18/16 17:57 80 15 94 12/18/16 17:57 80 15 12/18/16 17:55 137/66 12/18/16 17:52 79 18 96 12/18/16 17:52 79 18 12/18/16 17:50 132/79 12/18/16 17:47 85 21 94 12/18/16 17:47 83 21 12/18/16 17:45 130/92 12/18/16 17:42 80 16 93 12/18/16 17:42 80 16 12/18/16 17:40 141/80 12/18/16 17:37 77 14 96 12/18/16 17:37 77 14 12/18/16 17:36 75 21 96 12/18/16 17:36 76 21 12/18/16 17:35 141/72 12/18/16 17:31 79 22 97 12/18/16 17:31 79 22 12/18/16 17:30 115/82 12/18/16 17:26 78 17 100 12/18/16 17:26 78 17 12/18/16 17:25 145/85 12/18/16 17:21 79 15 12/18/16 17:21 82 15 100 12/18/16 17:20 159/81 12/18/16 17:16 88 16 12/18/16 17:16 88 16 174/84 100 12/18/16 17:16 36.6 88 16 174/84 99 Mask 10 Lab Results: Results Past 24 Hours Test 12/19/16 06:16 Range/Units White Blood Count 9.61 4.8-10.8 K/uL Red Blood Count 3.13 4.2-5.4 M/uL Hemoglobin 9.7 12.0-16.0 g/dL Hematocrit 28.6 37-47 % Mean Corpuscular Volume 91.4 80-100 fL Mean Corpuscular Hemoglobin 31.0 25-34 pg Mean Corpuscular Hemoglobin Concent 33.9 32-36 g/dl RDW Standard Deviation 49.6 36.4-46.3 fL RDW Coefficient of Variation 14.7 11.5-14.5 % Platelet Count 157 130-400 K/uL Mean Platelet Volume 11.6 7.4-10.4 fL Prothrombin Time 10.0 9.0-12.0 SECONDS Prothromb Time International Ratio 0.9 0.9-1.1 Sodium Level 133 136-145 mmol/L Potassium Level 3.8 3.5-5.1 mmol/L Chloride Level 98 98-107 mmol/L Carbon Dioxide Level 30 21-32 mmol/L Anion Gap 5.0 3-11 mmol/L Blood Urea Nitrogen 4 7-18 mg/dl Creatinine 0.57 0.60-1.20 mg/dl Est Creatinine Clear Calc Drug Dose 104.5 ml/min Estimated GFR () 120.1 Estimated GFR (Non- 103.6 BUN/Creatinine Ratio 7.4 10-20 Random Glucose 162 70-99 mg/dl Calcium Level 8.5 8.5-10.1 mg/dl
--- NOTE | 2016-12-19 16:17 | Cardiology Follow-Up ---
Subjective General Date of Service: Dec 19, 2016. Chief Complaint: follow-up atrial fibrillation peripheral arterial disease Pt evaluation today including: conversation w/ patient, physical exam History of Present Illness The patient is a 56 year old female seen in follow-up. She underwent orthopedic surgery yesterday and tolerated it well from a cardiac perspective. Telemetry reveals brief episodes of atrial fibrillation and she is spine tenderness he converted to sinus rhythm. This afternoon at 3:30 PM she had a brief episode of atrial fibrillation with ventricular rates for the most part in the 125 bpm range. She was a symptomatic had said no subjective sensation of the atrial fibrillation. This is similar to what she had experienced in the past when I rounded on her on a past hospital stay. She received a dose of IV metoprolol and has since converted back to sinus rhythm. She did well with physical therapy today. Allergies Coded Allergies: Adhesives (Verified Allergy, Mild, 12/13/16) Guanfacine (Verified Allergy, Unknown, 12/13/16) Nifedipine (Verified Allergy, Unknown, 12/13/16) Social History Smoking Status: Current Some Day Smoker Hx Tobacco Use In Past Year?: Yes (quit cigarettes in september 2016) Hx Alcohol Use - Type And Amou: Yes (6 pack/week) Hx Substance Use - Type And Am: No Problem List Medical Problems: (1) Lower extremity edema Status: Acute (2) Trimalleolar fracture of ankle, closed Status: Acute Physical Exam Vital Signs Last Vital Signs Documentation Date Time Temp Pulse Resp B/P Pulse Ox O2 Delivery O2 Flow Rate FiO2 12/19/16 15:58 136 119/74 12/19/16 15:23 Room Air 12/19/16 07:58 36.7 18 99 2.0 Physical Exam Head: normocephalic Lungs: Auscultation: no wheezing, no rales/crackles Cardiovascular: Heart Auscultation: RRR, no rubs, no gallops Abdomen: Inspection & Palpation: soft, non-distended, no tenderness, guarding & rebound Extremities: no cyanosis, no edema Neurologic: Gait & Station: pertinent finding (no focal neurologic deficits) Assessment and Plan Assessment and Plan Impression: 56-year-old female 1. Status post operative intervention for trimalleolar fracture, 12/18/16 2. Symptomatic atrial fibrillation borderline tachycardia bradycardia syndrome~ a symptomatic 3. History of large peripheral arterial disease for which patient underwent bilateral femoral endarterectomy with iliac stenting 10/02/16 he requires dual antiplatelet therapy 4. Hypertension has been on clonidine for many years 5. Dyslipidemia Recommendations: The outpatient and inpatient treatment of her paroxysmal atrial fibrillation has been limited by her resting sinus bradycardia rate clonidine can attenuate heart rate, but is not very effective in terms of rate control for atrial fibrillation. I would like to take this opportunity to wean her off clonidine. 1. Decrease clonidine from 0.1 mg twice a day to 1/2 tab (0.05 mg) BID 2. Increase amlodipine to 10 mg daily since clonidine dose has been decreased 3. Discontinue metoprolol succinate 12.5 mg daily 4. Start sotalol 80 mg by mouth 1 now, 40 mg twice a day starting tomorrow 5. Stat bedside EKG has been reviewed and she is reverted to sinus rhythm with normal corrected QT interval 6. Continue dual antiplatelet therapy with aspirin and clopidogrel for peripheral arterial disease 7. Resume Coumadin for stroke prophylaxis of atrial fibrillation. Given recent operative intervention, will not return with full anticoagulation dose heparin or Lovenox, but will instead continue DVT prophylaxis dose Lovenox until her INR is therapeutic. Plan discussed with the patient's nurse and Dr. Callaway. Daily EKG tracings have been ordered She is to remain on telemetry for sotalol initiation. A basic metabolic panel and magnesium of all been requested for tomorrow. Tex Kinsey D.O. Laboratory Results Last 24 Hours Test 12/19/16 06:16 White Blood Count 9.61 K/uL Red Blood Count 3.13 M/uL Hemoglobin 9.7 g/dL Hematocrit 28.6 % Mean Corpuscular Volume 91.4 fL Mean Corpuscular Hemoglobin 31.0 pg Mean Corpuscular Hemoglobin Concent 33.9 g/dl RDW Standard Deviation 49.6 fL RDW Coefficient of Variation 14.7 % Platelet Count 157 K/uL Mean Platelet Volume 11.6 fL Prothrombin Time 10.0 SECONDS Prothromb Time International Ratio 0.9 Sodium Level 133 mmol/L Potassium Level 3.8 mmol/L Chloride Level 98 mmol/L Carbon Dioxide Level 30 mmol/L Anion Gap 5.0 mmol/L Blood Urea Nitrogen 4 mg/dl Creatinine 0.57 mg/dl Est Creatinine Clear Calc Drug Dose 104.5 ml/min Estimated GFR () 120.1 Estimated GFR (Non- 103.6 BUN/Creatinine Ratio 7.4 Random Glucose 162 mg/dl Calcium Level 8.5 mg/dl
[2016-12-19] MEDS: ATORVASTATIN 40 MG TAB PO SCH (20:01)
[2016-12-19] MEDS: RANITIDINE HCL 150 MG TAB PO SCH (20:01)
[2016-12-20] VITALS (8 sets, daily range): BP systolic 111–167; BP diastolic 66–91; PULSE 64–109; TEMP 36.6–36.9; O2SAT 93–98
[2016-12-20] MEDS: OXYCODONE/ACETAMINOPHEN 5-325 TAB PO PRN ×5 (00:16→21:06)
[2016-12-20] MEDS: HYDROmorphone INJ 2 MG/ML SYR/VIAL IV PRN ×2 (07:25→12:05)
[2016-12-20] MEDS: AMLODIPINE BESYLATE 5 MG TAB PO SCH (08:04)
[2016-12-20] MEDS: ASPIRIN 81 MG ECTAB PO SCH (08:04)
[2016-12-20] MEDS: CLOPIDOGREL BISULFATE 75 MG TAB PO SCH (08:04)
[2016-12-20] MEDS: ENOXAPARIN 40 MG/0.4 ML SYR SQ SCH (08:05)
[2016-12-20] MEDS: FLUOXETINE HCL 20 MG CAP PO SCH (08:05)
[2016-12-20] MEDS: PANTOprazole SOD 40 MG TAB PO SCH (08:05)
[2016-12-20] MEDS: CLONIDINE HCL 0.1 MG TAB PO SCH ×2 (08:06→21:08)
[2016-12-20 08:40] LABS: HEMATOCRIT 30.4 % (37-47); MEAN CELL VOLUME 90.5 fL (80-100); MEAN CORPUSCULAR HEMOGLOBIN 30.4 pg (25-34); MEAN CORPUSCULAR HGB CONC 33.6 g/dl (32-36); PLATELET COUNT 188 K/uL (130-400); RED BLOOD COUNT 3.36 M/uL (4.2-5.4); WHITE BLOOD COUNT 10.85 K/uL (4.8-10.8)
--- NOTE | 2016-12-20 08:52 | Orthopedic Progress Note ---
Orthopedic Progress Note Date of Service Dec 20, 2016. Subjective Post OP Day: 2 Reports: feeling well, Denies: SOB, calf pain, chest pain, light headedness, nausea / vomiting Additional Notes: WENT INTO RAPID RATE AFIB YESTERDAY. STILL ON TELEMETRY Objective calves soft nontender, N/V intact, splint C/D/I, capillary refill less than 2 sec., A&O x3, toes mobile Date Time Temp Pulse Resp B/P Pulse Ox O2 Delivery O2 Flow Rate FiO2 12/20/16 08:18 36.9 73 18 167/91 98 Room Air 12/20/16 04:13 Room Air 12/20/16 03:41 36.7 65 20 123/70 93 Room Air 12/20/16 00:08 Room Air 12/20/16 00:06 36.6 71 18 111/66 98 Room Air 12/19/16 20:05 Room Air 12/19/16 20:04 37.1 66 18 131/82 98 Room Air 12/19/16 15:58 136 119/74 12/19/16 15:38 36.7 115 20 119/86 97 Room Air 12/19/16 15:23 Room Air 12/19/16 11:48 Room Air Laboratory Results 24 Hours: Test 12/20/16 08:25 Hematocrit 30.4 % Hemoglobin 10.2 g/dL Assessment & Plan Assessment: LEFT TRIMALLEOLAR FRACTURE -POD#2 SP ORIF LEFT ANKLE ATRIAL FIBRILLATION -MAY RESUME COUMADIN, DISCUSSED WITH DR. REYES. THEY WOULD LIKE TO KEEP HER ON LOVENOX UNTIL INR THERAPEUTIC -follow daily INR -continue BB PERIPHERAL VASCULAR DISEASE -s/p stenting in 10/13 -follows with [facility] Vascular Surgery -MAY RESUME PLAVIX. -continue Aspirin HTN -stable -continue metoprolol, amlodipine and clonidine ANXIETY/DEPRESSION -continue Prozac GERD -continue PPI, Zantac HLD -continue Statin STABLE ORTHOPEDICALLY. WILL DISCUSS WITH MEDICINE ABOUT TRANSFERRING TO THEIR SERVICE VS CARDIO. FOLLOW UP IN [address] STANFORD. [phone]
[2016-12-20 08:54] LABS: INR 0.9 (0.9-1.1); PROTHROMBIN TIME (PATIENT) 9.9 SECONDS (9.0-12.0)
--- NOTE | 2016-12-20 08:54 | Discharge Instructions ---
Discharge Instructions Date of Service Dec 20, 2016. Admission Reason for Admission: Left Trimalleolar Fracture Discharge Discharge Diagnosis / Problem: SP ORIF LEFT ANKLE Discharge Goals Goal(s): Decrease discomfort, Improve function, Increase independence Activity Recommendations Activity Limitations: per Instructions/Follow-up section Lifting Limitations: no more than 10 pounds Exercise/Sports Limitations: none Shower/Bathe: keep incision dry Weightbearing Status: Left non-weightbearing . Instructions / Follow-Up Instructions / Follow-Up ACTIVITY RECOMMENDATIONS: Limitations: No weight bearing to affected limb at all times. SPECIAL CARE INSTRUCTIONS: * Some drainage onto the dressing is normal and is no cause for alarm. * Some swelling is natural especially after walking. * When resting, keep your foot elevated above the level of your heart. * Call [facility] if you notice: -Increased drainage -Fever over 101 degrees F -Severe constant pain BANDAGE: * Leave bandage/cast in place unless otherwise directed. * Keep bandage/cast dry at all times. FOLLOW UP VISIT WITH DR. STANFORD If appointment is not already scheduled: Please call [facility] after you get home today to schedule a follow-up appointment for [address] Stanford at . Current Hospital Diet Patient's current hospital diet: Regular Diet Discharge Diet Recommended Diet: Regular Diet Procedures Procedures Performed: ORIF closed displaced trimalleolar left ankle fracture Pending Studies Studies pending at discharge: no Medical Emergencies . Who to Call and When: Medical Emergencies: If at any time you feel your situation is an emergency, please call 911 immediately. . Non-Emergent Contact Non-Emergency issues call your: Surgeon . "Provider Documentation" section prepared by Gemma Nieves. VTE Core Measure Inpt VTE Proph given/why not?: Other Anticoagulation, T.E.D. Stockings, SCD's
[2016-12-20] MEDS ORDERED: SOTALOL HCL 80 MG TAB PO SCH (09:00)
[2016-12-20 09:08] LABS: BUN/CREATININE RATIO 8.6 (10-20); CALCIUM 8.7 mg/dl (8.5-10.1); CREATININE 0.79 mg/dl (0.60-1.20); POTASSIUM 3.6 mmol/L (3.5-5.1)
--- NOTE | 2016-12-20 12:10 | Cardiology Follow-Up ---
Subjective General Date of Service: Dec 20, 2016. Chief Complaint: follow-up atrial fibrillation peripheral arterial disease Pt evaluation today including: conversation w/ patient, physical exam History of Present Illness The patient is a 56 year old female seen in cardiology follow-up. Patient notes feeling well. This morning she had a brief episode of atrial fibrillation just after 6 AM that terminated spontaneously back to sinus rhythm at 6:16 AM. Right now sinus bradycardia 55 bpm as noted on telemetry. EKG this morning revealed stable sinus rhythm with stable corrected QT interval. Her chemistry panel and magnesium level were stable. She just had a repeat blood pressure reading of 124/77 which is favorable considering recent decrease in her clonidine dose last night. Allergies Coded Allergies: Adhesives (Verified Allergy, Mild, 12/13/16) Guanfacine (Verified Allergy, Unknown, 12/13/16) Nifedipine (Verified Allergy, Unknown, 12/13/16) Social History Smoking Status: Current Some Day Smoker Hx Tobacco Use In Past Year?: Yes (quit cigarettes in september 2016) Hx Alcohol Use - Type And Amou: Yes (6 pack/week) Hx Substance Use - Type And Am: No Problem List Medical Problems: (1) Lower extremity edema Status: Acute (2) Trimalleolar fracture of ankle, closed Status: Acute Physical Exam Vital Signs Last Vital Signs Documentation Date Time Temp Pulse Resp B/P Pulse Ox O2 Delivery O2 Flow Rate FiO2 12/20/16 08:18 36.9 73 18 167/91 98 Room Air 12/19/16 07:58 2.0 Physical Exam Head: normocephalic Lungs: Auscultation: no wheezing, no rales/crackles Cardiovascular: Heart Auscultation: RRR, no rubs, no gallops Abdomen: Inspection & Palpation: soft, non-distended, no tenderness, guarding & rebound Extremities: no cyanosis, no edema Neurologic: Gait & Station: pertinent finding (no focal neurologic deficits) Assessment and Plan Assessment and Plan Impression: 56-year-old female 1. Status post operative intervention for trimalleolar fracture, 12/18/16 2. Symptomatic atrial fibrillation borderline tachycardia bradycardia syndrome~ a symptomatic 3. History of large peripheral arterial disease for which patient underwent bilateral femoral endarterectomy with iliac stenting 10/02/16 he requires dual antiplatelet therapy 4. Hypertension has been on clonidine for many years 5. Dyslipidemia Recommendations: Blood pressure stable. Although she did have a brief breakthrough episode of atrial fibrillation this morning she was once again asymptomatic, and she has only had 2 doses of sotalol thus far and therefore do not think in the sotalol has been administered for to impact her atrial fibrillation at present. Her clonidine dose is being weaned to allow more aggressive treatment for atrial fibrillation with other medications. Amlodipine was increased from 5 mg to 10 mg for additional blood pressure control. Her kidney function and electrolytes are stable. Her heart rate on EKG this morning was 66 bpm. Will increase sotalol to 80 mg twice a day with next dose due tonight 2100. She needs to remain as an inpatient on telemetry until she receives first 72 hours of sotalol treatment. Tex Kinsey D.O. Laboratory Results Last 24 Hours Test 12/20/16 08:25 White Blood Count 10.85 K/uL Red Blood Count 3.36 M/uL Hemoglobin 10.2 g/dL Hematocrit 30.4 % Mean Corpuscular Volume 90.5 fL Mean Corpuscular Hemoglobin 30.4 pg Mean Corpuscular Hemoglobin Concent 33.6 g/dl RDW Standard Deviation 48.5 fL RDW Coefficient of Variation 14.7 % Platelet Count 188 K/uL Mean Platelet Volume 11.0 fL Prothrombin Time 9.9 SECONDS Prothromb Time International Ratio 0.9 Sodium Level 138 mmol/L Potassium Level 3.6 mmol/L Chloride Level 101 mmol/L Carbon Dioxide Level 28 mmol/L Anion Gap 9.0 mmol/L Blood Urea Nitrogen 7 mg/dl Creatinine 0.79 mg/dl Est Creatinine Clear Calc Drug Dose 74.3 ml/min Estimated GFR () 97.0 Estimated GFR (Non- 83.7 BUN/Creatinine Ratio 8.6 Random Glucose 95 mg/dl Calcium Level 8.7 mg/dl Magnesium Level 2.0 mg/dl
[2016-12-20] MEDS ORDERED: KETOROLAC TROMETHAMINE 30 MG/ML VIAL IV PRN (15:45)
[2016-12-20] MEDS ORDERED: HYDROmorphone INJ 2 MG/ML SYR/VIAL IV PRN (16:00)
[2016-12-20] MEDS: WARFARIN SOD 7.5 MG TAB PO SCH (16:16)
[2016-12-20] MEDS ORDERED: NURSING VERBAL MED ORDER ONE (18:45)
--- NOTE | 2016-12-20 20:47 | Progress Note ---
Internal Med Progress Note Date of Service: Dec 20, 2016. Provider Documentation: SUBJECTIVE: continues to requests for pain meds left ankle hurts more today no complain of chest pain or SOB OBJECTIVE: Vital Signs-as noted below Exam: General-comfortable , no sign of distress Eyes-sclera non icteric ENT-NAD Neck-no thyromegaly Lungs-clear , no wheeze or rales Heart-regular Abdomen-soft, non tender Extremities-s/p ORIF Of left ankle /left leg in cast Neuro-no focal neurological deficit Lab data as noted below. ASSESSMENT & PLAN: PAROXYSMAL ATRIAL FIBRILLATION pt remained asymptomatic appreciate cardiology eval pt is continued on Sotalol will need to be on Tele and daily EKG monitoring for Qtc change for 72 hrs Coumadin resumed , monitor INR closely full therapeutic anticoagulation avoided due to recent ankle surgery on Aspirin , Plavix Lovenox sub q dvt prophylaxis dose till INR therapeutic LEFT TRIMALLEOLAR FRACTURE due to Mechanical fall -mentions was reaching for Car door lost her balance and fell denies of any palpitation , chest pain , dizzy spell prior to fall s/p ORIF of left ankle by Dr Fischer POD # 3 recovering well post op evaluated by Ortho today pt can participate in PT/OT non wt bearing on left lower ext Aspirin , Plavix and Coumadin resumed on Lovenox 40mg SC daily for DVT prophylaxis HYPONATREMIA - chronic follow PRP PERIPHERAL VASCULAR DISEASE -Patient had bilateral femoral endarterectomies and bilateral iliac stents on 10/02/16. -follows with [facility] -Aspirin /Plavix resumed HTN -BP remains stable -as per Cardiology -clonidine will be weaned off -Lopressor D/irineo -started on Sotalol for rate controlled -cont Norvasc ( out pt meds) dose increased to 10 mg daily ANXIETY/DEPRESSION -continue Prozac GERD -continue PPI, Zantac HLD -continue Statin H/O ALCOHOL DEPENDENCE -no evidence of withdrawal symptoms TOBACCO ABUSE -cessation counseling given -decline nicotine patch DVT PROPHYLAXIS: on Coumadin Lovenox sub q 40 mg daily -prophylaxis dose till INR therapeutic CODE STATUS: FULL CODE DISPOSITION continue to monitor pt in Tele Vital Signs: Date Time Temp Pulse Resp B/P Pulse Ox O2 Delivery O2 Flow Rate FiO2 12/20/16 19:50 36.7 109 20 112/77 97 Room Air 12/20/16 16:19 96 Room Air 12/20/16 15:33 36.7 69 18 118/71 96 Room Air 12/20/16 12:28 36.6 64 18 124/71 93 Room Air 12/20/16 12:00 Room Air 12/20/16 08:18 36.9 73 18 167/91 98 Room Air 12/20/16 08:00 Room Air 12/20/16 04:13 Room Air 12/20/16 03:41 36.7 65 20 123/70 93 Room Air 12/20/16 00:08 Room Air 12/20/16 00:06 36.6 71 18 111/66 98 Room Air Lab Results: Results Past 24 Hours Test 12/20/16 08:25 Range/Units White Blood Count 10.85 4.8-10.8 K/uL Red Blood Count 3.36 4.2-5.4 M/uL Hemoglobin 10.2 12.0-16.0 g/dL Hematocrit 30.4 37-47 % Mean Corpuscular Volume 90.5 80-100 fL Mean Corpuscular Hemoglobin 30.4 25-34 pg Mean Corpuscular Hemoglobin Concent 33.6 32-36 g/dl RDW Standard Deviation 48.5 36.4-46.3 fL RDW Coefficient of Variation 14.7 11.5-14.5 % Platelet Count 188 130-400 K/uL Mean Platelet Volume 11.0 7.4-10.4 fL Prothrombin Time 9.9 9.0-12.0 SECONDS Prothromb Time International Ratio 0.9 0.9-1.1 Sodium Level 138 136-145 mmol/L Potassium Level 3.6 3.5-5.1 mmol/L Chloride Level 101 98-107 mmol/L Carbon Dioxide Level 28 21-32 mmol/L Anion Gap 9.0 3-11 mmol/L Blood Urea Nitrogen 7 7-18 mg/dl Creatinine 0.79 0.60-1.20 mg/dl Est Creatinine Clear Calc Drug Dose 74.3 ml/min Estimated GFR () 97.0 Estimated GFR (Non- 83.7 BUN/Creatinine Ratio 8.6 10-20 Random Glucose 95 70-99 mg/dl Calcium Level 8.7 8.5-10.1 mg/dl Magnesium Level 2.0 1.8-2.4 mg/dl
[2016-12-20] MEDS: LORAZEPAM 0.5 MG TAB PO PRN (21:04)
[2016-12-20] MEDS: RANITIDINE HCL 150 MG TAB PO SCH (21:06)
[2016-12-20] MEDS: ATORVASTATIN 40 MG TAB PO SCH (21:07)
[2016-12-20] MEDS: SOTALOL HCL 80 MG TAB PO SCH (21:11)
[2016-12-20] MEDS: KETOROLAC TROMETHAMINE 15 MG/ML VIAL IV. PRN (23:42)
[2016-12-21] VITALS (9 sets, daily range): BP systolic 102–171; BP diastolic 66–89; PULSE 62–74; TEMP 36.5–36.7; O2SAT 96–99
[2016-12-21] MEDS: OXYCODONE/ACETAMINOPHEN 5-325 TAB PO PRN ×2 (03:47→09:50)
[2016-12-21 07:08] LABS: INR 0.9 (0.9-1.1); PROTHROMBIN TIME (PATIENT) 10.1 SECONDS (9.0-12.0)
[2016-12-21] MEDS: KETOROLAC TROMETHAMINE 15 MG/ML VIAL IV. PRN (07:32)
[2016-12-21] MEDS: LORAZEPAM 0.5 MG TAB PO PRN ×3 (07:32→20:33)
[2016-12-21] MEDS: CLOPIDOGREL BISULFATE 75 MG TAB PO SCH (08:08)
[2016-12-21] MEDS: FLUOXETINE HCL 20 MG CAP PO SCH (08:08)
[2016-12-21] MEDS: CLONIDINE HCL 0.1 MG TAB PO SCH ×2 (08:08→20:35)
[2016-12-21] MEDS: SOTALOL HCL 80 MG TAB PO SCH ×2 (08:09→20:33)
[2016-12-21] MEDS: ASPIRIN 81 MG ECTAB PO SCH (08:09)
[2016-12-21] MEDS: PANTOprazole SOD 40 MG TAB PO SCH (08:09)
[2016-12-21] MEDS: AMLODIPINE BESYLATE 5 MG TAB PO SCH (08:09)
[2016-12-21] MEDS: ENOXAPARIN 40 MG/0.4 ML SYR SQ SCH (08:10)
--- NOTE | 2016-12-21 10:11 | Anesthesiology Progress Note ---
Anesthesia Post Op Note Date & Time Dec 21, 2016 at 10:08 Vital Signs Pain Intensity: 8.0 Vital Signs Past 12 Hours Date Time Temp Pulse Resp B/P Pulse Ox O2 Delivery O2 Flow Rate FiO2 12/21/16 08:00 Room Air 12/21/16 07:39 36.6 73 19 171/80 96 Room Air 12/21/16 04:24 96 Room Air 12/21/16 03:30 36.5 71 20 166/89 97 Room Air 12/21/16 00:20 96 Room Air 12/21/16 00:05 36.5 73 17 102/66 96 Room Air Notes Mental Status: alert / awake / arousable, participated in evaluation Pt Amnestic to Procedure: Yes Nausea / Vomiting: adequately controlled Pain: adequately controlled Airway Patency, RR, SpO2: stable & adequate BP & HR: stable & adequate Hydration State: stable & adequate Neuraxial Anesthesia: sensory block resolved Anesthetic Complications: no major complications apparent Anesthetic Complications: Patient states that she has " gone into afib following surgery the last two times". Patient was asymptomatic at the time of rounding. denies any n/v, SOB, Chest pain, dizziness, lightheadedness, associated with Afib following the procedure. Patient denied any problems with the anesthesia that she is aware of.
--- NOTE | 2016-12-21 11:13 | Orthopedic Progress Note ---
Orthopedic Progress Note Date of Service Dec 21, 2016. Subjective Post OP Day: 3 Reports: complaints (pain control issues), feeling well, Denies: SOB, calf pain , chest pain, light headedness, nausea / vomiting Additional Notes: States that her pain control is not adequate with the Percocet every 6 hours. Currently the patient looks comfortable but has received Percocet at ~ 10AM today. No other complaints. Objective splint C/D/I, capillary refill less than 2 sec., dressing C/D/I, A&O x3, toes mobile Good sensation in toes. Moving toes well. Date Time Temp Pulse Resp B/P Pulse Ox O2 Delivery O2 Flow Rate FiO2 12/21/16 08:00 Room Air 12/21/16 07:39 36.6 73 19 171/80 96 Room Air 12/21/16 04:24 96 Room Air 12/21/16 03:30 36.5 71 20 166/89 97 Room Air 12/21/16 00:20 96 Room Air 12/21/16 00:05 36.5 73 17 102/66 96 Room Air 12/20/16 20:24 96 Room Air 12/20/16 19:50 36.7 109 20 112/77 97 Room Air 12/20/16 16:19 96 Room Air 12/20/16 15:33 36.7 69 18 118/71 96 Room Air 12/20/16 12:28 36.6 64 18 124/71 93 Room Air 12/20/16 12:00 Room Air Laboratory Results 24 Hours: Test 12/21/16 06:46 Prothromb Time International Ratio 0.9 Prothrombin Time 10.1 SECONDS Assessment & Plan Assessment: LEFT TRIMALLEOLAR FRACTURE -POD#3 SP ORIF LEFT ANKLE -WILL SWITCH FROM PERCOCET TO OXYIR Q4H FOLLOW UP IN 2 WEEKS FROM THE DAY OF SURGERY WITH DR. STANFORD. [phone] KEEP SPLINT CLEAN AND DRY NWB LLE ATRIAL FIBRILLATION -MAY RESUME COUMADIN, DISCUSSED WITH DR. REYES. THEY WOULD LIKE TO KEEP HER ON LOVENOX UNTIL INR THERAPEUTIC -follow daily INR -continue BB PERIPHERAL VASCULAR DISEASE -s/p stenting in 10/13 -follows with [facility] Surgery -MAY RESUME PLAVIX. -continue Aspirin HTN -stable -continue metoprolol, amlodipine and clonidine ANXIETY/DEPRESSION -continue Prozac GERD -continue PPI, Zantac HLD -continue Statin FOLLOW UP IN 2 WEEKS FROM THE DAY OF SURGERY WITH DR. STANFORD. [phone] KEEP SPLINT CLEAN AND DRY NWB LLE Inhouse Planning Pain Management: Toradol, Oxy IR DVT Prophylaxis: Lovenox
[2016-12-21] MEDS: OXYCODONE HCL IR 5 MG TAB (IMMEDIATE RELEASE) PO PRN ×3 (12:16→20:33)
--- NOTE | 2016-12-21 12:33 | Cardiology Follow-Up ---
Subjective General Date of Service: Dec 21, 2016. Chief Complaint: follow-up atrial fibrillation peripheral arterial disease Pt evaluation today including: conversation w/ patient, physical exam History of Present Illness The patient is a 56 year old female seen in follow up. Patient with episode of AF last night at 10 pm, spontaneously converted to SR without pause. Telemetry this am reveals SR, EKG reveals SR with normal QTc of 419 ms. Allergies Coded Allergies: Adhesives (Verified Allergy, Mild, 12/13/16) Guanfacine (Verified Allergy, Unknown, 12/13/16) Nifedipine (Verified Allergy, Unknown, 12/13/16) Social History Smoking Status: Current Some Day Smoker Hx Tobacco Use In Past Year?: Yes (quit cigarettes in september 2016) Hx Alcohol Use - Type And Amou: Yes (6 pack/week) Hx Substance Use - Type And Am: No Problem List Medical Problems: (1) Lower extremity edema Status: Acute (2) Trimalleolar fracture of ankle, closed Status: Acute Physical Exam Vital Signs Last Vital Signs Documentation Date Time Temp Pulse Resp B/P Pulse Ox O2 Delivery O2 Flow Rate FiO2 12/21/16 12:00 Room Air 12/21/16 12:00 36.6 65 19 144/83 96 12/19/16 07:58 2.0 Physical Exam Head: normocephalic Lungs: Auscultation: no wheezing, no rales/crackles Cardiovascular: Heart Auscultation: RRR, no rubs, no gallops Abdomen: Inspection & Palpation: soft, non-distended, no tenderness, guarding & rebound Extremities: no cyanosis, no edema Neurologic: Gait & Station: pertinent finding (no focal neurologic deficits) Assessment and Plan Assessment and Plan Impression: 56-year-old female 1. Status post operative intervention for trimalleolar fracture, 12/18/16 2. Symptomatic atrial fibrillation borderline tachycardia bradycardia syndrome~ a symptomatic 3. History of large peripheral arterial disease for which patient underwent bilateral femoral endarterectomy with iliac stenting 10/02/16 he requires dual antiplatelet therapy 4. Hypertension has been on clonidine for many years 5. Dyslipidemia 6. post operative pain Recommendations: Patient with episodic worsening pain, with associate HTN, and the AF episode seem to also occur with the pain. Currently in SR, QTc is stable with noted treatment with both Trazodone and Sotalol. Continue ASA, plavix, coumadin. Agree with pain management consult. Will received 6th dose of sotalol am of 12/22. Remain on telemetry, EKG in am 12/22. Tex Kinsey D.O. Laboratory Results Last 24 Hours Test 12/21/16 06:46 Prothrombin Time 10.1 SECONDS Prothromb Time International Ratio 0.9
[2016-12-21] MEDS: ACETAMINOPHEN 500 MG TAB PO SCH ×2 (14:00→20:36)
[2016-12-21] MEDS: WARFARIN SOD 7.5 MG TAB PO SCH (16:25)
[2016-12-21] MEDS: RANITIDINE HCL 150 MG TAB PO SCH (20:33)
[2016-12-21] MEDS: ATORVASTATIN 40 MG TAB PO SCH (20:35)
--- NOTE | 2016-12-21 23:24 | Progress Note ---
Internal Med Progress Note Date of Service: Dec 21, 2016. Provider Documentation: SUBJECTIVE: complains of pain on left ankle started on Oxycodone by Pain management pt says having better pain relief mentions of having purulent drainage from left breast area had breast biopsy years back -2007 , since then she gets occasional yellow purulent drainage form the biopsy sited needed Abx treatment no fever or chills no pain or tenderness on left breast area OBJECTIVE: Vital Signs-as noted below Exam: General-comfortable , no sign of distress Eyes-sclera non icteric ENT-NAD Neck-no thyromegaly Lungs-clear , no wheeze or rales Heart-regular Abdomen-soft, non tender Extremities-s/p ORIF Of left ankle /left leg in cast ; left breast examined : small boil on lower inner quadrant below nipple , serous drainage -ordered for culture and gram stain Neuro-no focal neurological deficit Lab data as noted below. ASSESSMENT & PLAN: PAROXYSMAL ATRIAL FIBRILLATION pt remained asymptomatic appreciate cardiology eval pt is continued on Sotalol daily EKG monitoring for Qtc change for 72 hrs Q tc remains stable Coumadin resumed , monitor INR closely full therapeutic anticoagulation avoided due to recent ankle surgery on Aspirin , Plavix Lovenox sub q dvt prophylaxis dose till INR therapeutic LEFT TRIMALLEOLAR FRACTURE due to Mechanical fall -mentions was reaching for Car door lost her balance and fell denies of any palpitation , chest pain , dizzy spell prior to fall s/p ORIF of left ankle by Dr Fischer POD # 4 recovering well post op Ortho eval appreciated pt can participate in PT/OT non wt bearing on left lower ext Aspirin , Plavix and Coumadin resumed on Lovenox 40mg SC daily for DVT prophylaxis till INR ~ 2 CHRONIC PAIN SYNDROME : pt takes pain medication on a chronic basis pain is poorly controlled after left ankle fracture requiring frequent Dilaudid /Percocet -almost exceeding daily max dose of Tylenol pain management consulted ordered Oxycodone 4 mg PRN Percocet D/irineo pain mention better pain relief with Oxycodone can be discharged home with limited no of Oxycodone -has known hx of pain medication dependency LEFT BREAST DRAINING WOUND /POSSIBLE BOIL ; wound culture ordered started on Doxycycline empirically HYPONATREMIA - chronic follow PRP PERIPHERAL VASCULAR DISEASE -Patient had bilateral femoral endarterectomies and bilateral iliac stents on 10/02/16. -follows with [facility] Surgery -Aspirin /Plavix resumed HTN -BP remains stable -as per Cardiology -clonidine will be weaned off -Lopressor D/irineo -started on Sotalol for rate controlled -cont Norvasc ( out pt meds) dose increased to 10 mg daily ANXIETY/DEPRESSION -continue Prozac GERD -continue PPI, Zantac HLD -continue Statin H/O ALCOHOL DEPENDENCE -no evidence of withdrawal symptoms TOBACCO ABUSE -cessation counseling given -decline nicotine patch DVT PROPHYLAXIS: on Coumadin Lovenox sub q 40 mg daily -prophylaxis dose till INR therapeutic CODE STATUS: FULL CODE DISPOSITION continue to monitor pt in Tele Vital Signs: Date Time Temp Pulse Resp B/P Pulse Ox O2 Delivery O2 Flow Rate FiO2 12/22/16 04:10 36.3 64 17 150/80 96 Room Air 12/22/16 04:02 Room Air 12/22/16 00:02 Room Air 12/21/16 23:32 36.6 62 17 127/75 96 Room Air 12/21/16 20:04 Room Air 12/21/16 19:30 36.7 74 16 121/72 99 Room Air 12/21/16 16:15 36.5 68 16 138/86 99 Room Air 12/21/16 16:00 Room Air 12/21/16 12:00 Room Air 12/21/16 12:00 36.6 65 19 144/83 96 Room Air Lab Results: Results Past 24 Hours Test 12/22/16 06:50 Range/Units Prothrombin Time 11.4 9.0-12.0 SECONDS Prothromb Time International Ratio 1.1 0.9-1.1 Creatinine 0.70 0.60-1.20 mg/dl Est Creatinine Clear Calc Drug Dose 83.5 ml/min Estimated GFR () 112.3 Estimated GFR (Non- 96.9
[2016-12-22] VITALS (7 sets, daily range): BP systolic 115–150; BP diastolic 71–80; PULSE 61–72; TEMP 36.3–37; O2SAT 92–100
[2016-12-22] MEDS: LORAZEPAM 0.5 MG TAB PO PRN ×6 (00:29→21:07)
[2016-12-22] MEDS: OXYCODONE HCL IR 5 MG TAB (IMMEDIATE RELEASE) PO PRN ×6 (00:30→21:07)
[2016-12-22] MEDS: ACETAMINOPHEN 500 MG TAB PO SCH ×3 (06:11→21:06)
[2016-12-22 07:50] LABS: INR 1.1 (0.9-1.1); PROTHROMBIN TIME (PATIENT) 11.4 SECONDS (9.0-12.0)
[2016-12-22 07:51] LABS: CREATININE 0.7 mg/dl (0.60-1.20)
[2016-12-22] MEDS: CLOPIDOGREL BISULFATE 75 MG TAB PO SCH (08:35)
[2016-12-22] MEDS: ENOXAPARIN 40 MG/0.4 ML SYR SQ SCH (08:35)
[2016-12-22] MEDS: CLONIDINE HCL 0.1 MG TAB PO SCH (08:38)
[2016-12-22] MEDS: PANTOprazole SOD 40 MG TAB PO SCH (08:39)
[2016-12-22] MEDS: AMLODIPINE BESYLATE 5 MG TAB PO SCH (08:39)
[2016-12-22] MEDS: SOTALOL HCL 80 MG TAB PO SCH ×2 (08:39→21:03)
[2016-12-22] MEDS: ASPIRIN 81 MG ECTAB PO SCH (08:39)
[2016-12-22] MEDS: FLUOXETINE HCL 20 MG CAP PO SCH (08:40)
--- NOTE | 2016-12-22 08:51 | Pain Management Consultation ---
Pain Management Consultation Date of Consultation Dec 22, 2016. Reason for Consultation Left ankle pain History Mrs. Garcia is a 56 year old white female with a history of a left trimalleolar fracture of the left ankle while getting into a vehicle. Patient had an ORIF of the left ankle performed on 12/18/[address] Fischer. Since surgery , there have been difficulties with controlling the patient's post operative pain. She describes a sharp stabbing and throbbing sensation in the left ankle. She does have a cast on the left ankle and states that she has been applying ice and elevating the foot as much as possible. Patient has started physical therapy yesterday and is hopeful to go home as soon as she is able to ambulate well enough. Pain is 6/10 currently. She was previously on Percocet 5 /325 2 tablets x 6 hours which was providing mild pain relief. She has been switched to Oxycodone 5mg 1-2 tablets x 4-6 hours PRN pain which does seem to be more efficacious. She denies any nausea, vomiting, lethargy, dizziness, confusion. Case discussed with Dr. Simon Past Medical/Surgical History (1) PVD (peripheral vascular disease) (2) HTN (hypertension) (3) Depression (4) Dyslipidemia (5) History of appendectomy (6) H/O vascular surgery Social / Work History Smoking Status: Current some day smoker Smokeless Tobacco Use: No Alcohol Use: heavy (history of alcohol dependence. Heavy alcohol use.) Drug Use: none Marital Status: Housing Status: lives with significant other Occupation: employed Allergies Coded Allergies: Adhesives (Verified Allergy, Mild, 12/13/16) Guanfacine (Verified Allergy, Unknown, 12/13/16) Nifedipine (Verified Allergy, Unknown, 12/13/16) Medications Current Inpatient Medications Medications (Trade) Dose Ordered Sig/Rosa Route Start Time Stop Time Status Last Admin Dose Admin Aspirin (Ecotrin Tab) 81 mg DAILY PO 12/15/16 09:00 01/14/17 08:59 12/21/16 08:09 81 MG Fluoxetine HCl (Prozac Cap) 20 mg DAILY PO 12/15/16 09:00 01/14/17 08:59 12/21/16 08:08 20 MG Pantoprazole Sodium (Protonix Tab) 40 mg DAILY PO 12/15/16 09:00 01/14/17 08:59 12/21/16 08:09 40 MG Trazodone HCl (Desyrel Tab) 50 mg HS PRN PO 12/14/16 15:30 01/13/17 15:29 12/21/16 21:17 50 MG Ranitidine HCl (zANTac TAB) 300 mg HS PO 12/14/16 21:00 01/13/17 20:59 12/21/16 20:33 300 MG Diphenhydramine HCl (Benadryl Cap) 25 mg Q6H PRN PO 12/14/16 18:15 01/13/17 18:14 Atorvastatin Calcium (Lipitor Tab) 80 mg HS PO 12/15/16 21:00 01/14/17 20:59 12/21/16 20:35 80 MG Metoprolol Tartrate (Lopressor Iv) 5 mg Q6 PRN IV 12/15/16 11:30 01/14/17 11:29 12/19/16 15:58 5 MG Enoxaparin Sodium (Lovenox Inj) 40 mg QAM SQ 12/17/16 09:00 01/16/17 08:59 12/21/16 08:10 40 MG Clopidogrel Bisulfate (plAVix TAB) 75 mg DAILY PO 12/19/16 11:45 01/18/17 11:44 12/21/16 08:08 75 MG Warfarin Sodium (Coumadin Tab) 7.5 mg DAILY@1600 PO 12/19/16 16:00 01/18/17 15:59 12/21/16 16:25 7.5 MG Clonidine HCl (Catapres Tab) 0.05 mg BID PO 12/19/16 21:00 01/18/17 20:59 12/21/16 20:35 0.05 MG Amlodipine Besylate (Norvasc Tab) 10 mg QAM PO 12/20/16 09:00 01/19/17 08:59 12/21/16 08:09 10 MG Miscellaneous Information (Pending Order) 1 ea DAILY@0800 N/A 12/20/16 08:00 01/19/17 07:59 Sotalol HCl (Betapace Tab) 80 mg BID PO 12/20/16 21:00 01/19/17 20:59 12/21/16 20:33 80 MG Lorazepam (Ativan Tab) 0.5 mg Q4 PRN PO 12/20/16 18:45 01/19/17 18:44 12/22/16 04:28 0.5 MG Ketorolac Tromethamine (Toradol Inj) 15 mg Q6H PRN IV. 12/20/16 19:00 12/25/16 18:59 12/21/16 07:32 15 MG Oxycodone HCl (Roxicodone Immediate Rel Tab) `1-2 tabs for pain 1 tab ... Q4HWA PRN PO 12/21/16 11:15 01/04/17 11:14 12/22/16 04:28 10 MG Acetaminophen (Tylenol Tab) 1,000 mg Q8 PO 12/21/16 14:00 01/20/17 13:59 12/22/16 06:11 1,000 MG Review of Systems Denies complaints related to 10 point organ system review. Physical Exam Height & Weight: Height 5 feet, 2.00 inches. Weight 72.200 (Kilograms) 159 (Pounds) Last Vital Signs Documentation Date Time Temp Pulse Resp B/P Pulse Ox O2 Delivery O2 Flow Rate FiO2 12/22/16 04:10 36.3 64 17 150/80 96 Room Air 12/19/16 07:58 2.0 Exam: GENERAL: Mrs. Garcia is a 56 y/o white female that appears her stated age. Speech and cognition is intact. Mood and affect is appropriate. Sitting quietly in a chair with left ankle elevated. HEAD: Normocephalic; atraumatic. EYES: Pupils are round, equal, and reactive to light; EOM intact. ENT: No external ear discharge or lesions. No rhinorrhea or epistaxis. No mucosal lesions. CHEST: Regular chest respiration and excursion. EXTREMITIES: Cast is located on the left ankle. Capillary refill is brisk. She is able to wiggle toes. NEURO: CN II-XII grossly intact with no focal deficits noted. Laboratory / Imaging Results Laboratory Results (Last CBC): 12/20/16 08:25 Imagin12/18/16 Left ankle X ray: Anatomic alignment status post open reduction internal fixation Assessment 1. Left ankle pain status post trimalleolar fracture and ORIF performed on 12/18 2. History of alcoholism 3. Peripheral vascular disease Recommendations 1. Continue Oxycodone 5-10mg x 4 hours PRN pain as patient does report adequate pain relief 2. Continue Tylenol 1 gram x 8 hours PRN 3. Patient will continue with physical therapy 4. She is aware not to drink alcohol and take the pain medications together Dragon Voice Recognition This chart was completed in part utilizing [employer] Voice Recognition Software. Random word insertions, pronoun errors, and incomplete sentences are an occasional consequence of this system due to software limitations and ambient noise. Any questions or concerns about the content, text or information contained within the body of this dictation should be directly addressed to the provider for clarification. Additional Copies To Fabio Tai M.D.
[2016-12-22] MEDS: DOXYCYCLINE HYCLATE 100 MG CAP PO SCH ×2 (12:25→21:03)
--- NOTE | 2016-12-22 15:44 | Cardiology Follow-Up ---
Subjective General Date of Service: Dec 22, 2016. Chief Complaint: follow-up atrial fibrillation peripheral arterial disease Pt evaluation today including: conversation w/ patient, physical exam History of Present Illness The patient is a 56 year old female seen in follow up. Patient denies palpitations. No recent AF on telemetry. BPs better. Pain controlled. QTc on EKG this am was stable at 417 ms. Allergies Coded Allergies: Adhesives (Verified Allergy, Mild, 12/13/16) Guanfacine (Verified Allergy, Unknown, 12/13/16) Nifedipine (Verified Allergy, Unknown, 12/13/16) Social History Smoking Status: Current Some Day Smoker Hx Tobacco Use In Past Year?: Yes (quit cigarettes in september 2016) Hx Alcohol Use - Type And Amou: Yes (6 pack/week) Hx Substance Use - Type And Am: No Problem List Medical Problems: (1) Lower extremity edema Status: Acute (2) Trimalleolar fracture of ankle, closed Status: Acute Physical Exam Vital Signs Last Vital Signs Documentation Date Time Temp Pulse Resp B/P Pulse Ox O2 Delivery O2 Flow Rate FiO2 12/22/16 12:00 Room Air 12/22/16 11:51 98 12/22/16 11:47 36.9 64 14 115/75 12/19/16 07:58 2.0 Physical Exam Head: normocephalic Lungs: Auscultation: no wheezing, no rales/crackles Cardiovascular: Heart Auscultation: RRR, no rubs, no gallops Abdomen: Inspection & Palpation: soft, non-distended, no tenderness, guarding & rebound Extremities: no cyanosis, no edema Neurologic: Gait & Station: pertinent finding (no focal neurologic deficits) Assessment and Plan Assessment and Plan Impression: 56-year-old female 1. Status post operative intervention for trimalleolar fracture, 12/18/16 2. Symptomatic atrial fibrillation borderline tachycardia bradycardia syndrome~ a symptomatic 3. History of large peripheral arterial disease for which patient underwent bilateral femoral endarterectomy with iliac stenting 10/02/16 he requires dual antiplatelet therapy 4. Hypertension has been on clonidine for many years 5. Dyslipidemia 6. post operative pain Recommendations: Continue ASA, plavix, coumadin. Lovenox DVT proph dose until INR at goal Continue to wean clonidine, reduce from 0.05 mg BID to 0.05 mg at HS. Continue sotalol 80 mg BID. Pt counseled to avoid antibiotics that prolong QTc such as quinolones , and macrolides. Pain management input noted and appreciated. Tex Kinsey D.O. Laboratory Results Last 24 Hours Test 12/22/16 06:50 Prothrombin Time 11.4 SECONDS Prothromb Time International Ratio 1.1 Creatinine 0.70 mg/dl Est Creatinine Clear Calc Drug Dose 83.5 ml/min Estimated GFR () 112.3 Estimated GFR (Non- 96.9
[2016-12-22] MEDS: WARFARIN SOD 7.5 MG TAB PO SCH (16:36)
[2016-12-22] MEDS ORDERED: CLONIDINE HCL 0.1 MG TAB PO SCH (21:00)
[2016-12-22] MEDS: RANITIDINE HCL 150 MG TAB PO SCH (21:04)
[2016-12-22] MEDS: ATORVASTATIN 40 MG TAB PO SCH (21:04)
--- NOTE | 2016-12-22 22:26 | Progress Note ---
Subjective Date of Service: Dec 22, 2016. Subjective Pt evaluation today including: conversation w/ patient, physical exam, lab review, review of studies, review of inpatient medication list Saw/examined the patient in room 235 She is seated, left leg in a cast, elevated patient states pain is controlled only with oxycodone denies palpitations, shortness of breath/chest pain Problem List Medical Problems: (1) Lower extremity edema Status: Acute (2) Trimalleolar fracture of ankle, closed Status: Acute Review of Systems Constitutional: No chills, No fever Cardiac: No chest pain Abdomen: No diarrhea, No nausea, No pain, No vomiting Musculoskeletal: + joint pain (controlled with meds), + see HPI Heme: No abnormal bleeding/bruising Medications Current Inpatient Medications Medications (Trade) Dose Ordered Sig/Rosa Route Start Time Stop Time Status Last Admin Dose Admin Aspirin (Ecotrin Tab) 81 mg DAILY PO 12/15/16 09:00 01/14/17 08:59 12/22/16 08:39 81 MG Fluoxetine HCl (Prozac Cap) 20 mg DAILY PO 12/15/16 09:00 01/14/17 08:59 12/22/16 08:40 20 MG Pantoprazole Sodium (Protonix Tab) 40 mg DAILY PO 12/15/16 09:00 01/14/17 08:59 12/22/16 08:39 40 MG Trazodone HCl (Desyrel Tab) 50 mg HS PRN PO 12/14/16 15:30 01/13/17 15:29 12/21/16 21:17 50 MG Ranitidine HCl (zANTac TAB) 300 mg HS PO 12/14/16 21:00 01/13/17 20:59 12/22/16 21:04 300 MG Diphenhydramine HCl (Benadryl Cap) 25 mg Q6H PRN PO 12/14/16 18:15 01/13/17 18:14 Atorvastatin Calcium (Lipitor Tab) 80 mg HS PO 12/15/16 21:00 01/14/17 20:59 12/22/16 21:04 80 MG Metoprolol Tartrate (Lopressor Iv) 5 mg Q6 PRN IV 12/15/16 11:30 01/14/17 11:29 12/19/16 15:58 5 MG Enoxaparin Sodium (Lovenox Inj) 40 mg QAM SQ 12/17/16 09:00 01/16/17 08:59 12/22/16 08:35 40 MG Clopidogrel Bisulfate (plAVix TAB) 75 mg DAILY PO 12/19/16 11:45 01/18/17 11:44 12/22/16 08:35 75 MG Warfarin Sodium (Coumadin Tab) 7.5 mg DAILY@1600 PO 12/19/16 16:00 01/18/17 15:59 12/22/16 16:36 7.5 MG Amlodipine Besylate (Norvasc Tab) 10 mg QAM PO 12/20/16 09:00 01/19/17 08:59 12/22/16 08:39 10 MG Miscellaneous Information (Pending Order) 1 ea DAILY@0800 N/A 12/20/16 08:00 01/19/17 07:59 Sotalol HCl (Betapace Tab) 80 mg BID PO 12/20/16 21:00 01/19/17 20:59 12/22/16 21:03 80 MG Lorazepam (Ativan Tab) 0.5 mg Q4 PRN PO 12/20/16 18:45 01/19/17 18:44 12/22/16 21:07 0.5 MG Ketorolac Tromethamine (Toradol Inj) 15 mg Q6H PRN IV. 12/20/16 19:00 12/25/16 18:59 12/21/16 07:32 15 MG Oxycodone HCl (Roxicodone Immediate Rel Tab) `1-2 tabs for pain 1 tab ... Q4HWA PRN PO 12/21/16 11:15 01/04/17 11:14 12/22/16 21:07 10 MG Acetaminophen (Tylenol Tab) 1,000 mg Q8 PO 12/21/16 14:00 01/20/17 13:59 12/22/16 21:06 1,000 MG Doxycycline Hyclate (Vibramycin Cap) 100 mg BID PO 12/22/16 11:30 01/01/17 11:29 12/22/16 21:03 100 MG Clonidine HCl (Catapres Tab) 0.05 mg HS PO 12/22/16 21:00 01/21/17 20:59 12/22/16 21:03 0.05 MG Objective Vital Signs Date Time Temp Pulse Resp B/P Pulse Ox O2 Delivery O2 Flow Rate FiO2 12/22/16 20:15 36.7 72 18 128/79 92 Room Air 12/22/16 20:00 Room Air 12/22/16 16:00 Room Air 12/22/16 15:51 36.7 63 20 118/71 100 Room Air 12/22/16 12:00 Room Air 12/22/16 11:51 98 Room Air 12/22/16 11:47 36.9 64 14 115/75 98 Room Air 12/22/16 08:00 Room Air 12/22/16 07:24 37.0 61 20 132/80 98 Room Air 12/22/16 04:10 36.3 64 17 150/80 96 Room Air 12/22/16 04:02 Room Air 12/22/16 00:02 Room Air 12/21/16 23:32 36.6 62 17 127/75 96 Room Air Physical Exam General Appearance: no apparent distress Respiratory/Chest: lungs clear, normal breath sounds, no respiratory distress, no accessory muscle use Cardiovascular: regular rate, rhythm, no edema, no murmur Extremities: no pedal edema, no calf tenderness, + pertinent finding (left ankle in cast) Laboratory Results Last 24 Hours Test 12/22/16 06:50 Prothrombin Time 11.4 SECONDS Prothromb Time International Ratio 1.1 Creatinine 0.70 mg/dl Est Creatinine Clear Calc Drug Dose 83.5 ml/min Estimated GFR () 112.3 Estimated GFR (Non- 96.9 Assessment and Plan PAROXYSMAL ATRIAL FIBRILLATION appreciate cardiology input currently on sotalol no prolongation of QTc noted should avoid quinolones and macrolides in the future (or monitor QTc while doing so) continue aspirin, Plavix, Coumadin continue Lovenox until INR therapeutic recheck INR in AM pt remained asymptomatic appreciate cardiology eval pt is continued on Sotalol daily EKG monitoring for Qtc change for 72 hrs Q tc remains stable Coumadin resumed , monitor INR closely full therapeutic anticoagulation avoided due to recent ankle surgery on Aspirin , Plavix Lovenox sub q dvt prophylaxis dose till INR therapeutic LEFT TRIMALLEOLAR FRACTURE appreciate orthopedic input s/p ORIF appreciate pain management consultation continue Oxycodone PRN for pain due to Mechanical fall -mentions was reaching for Car door lost her balance and fell denies of any palpitation , chest pain , dizzy spell prior to fall s/p ORIF of left ankle by Dr Fischer POD # 4 recovering well post op Ortho eval appreciated pt can participate in PT/OT non wt bearing on left lower ext Aspirin , Plavix and Coumadin resumed on Lovenox 40mg SC daily for DVT prophylaxis till INR ~ 2 CHRONIC PAIN SYNDROME : pt takes pain medication on a chronic basis pain is poorly controlled after left ankle fracture requiring frequent Dilaudid /Percocet -almost exceeding daily max dose of Tylenol pain management consulted ordered Oxycodone 4 mg PRN Percocet D/irineo pain mention better pain relief with Oxycodone can be discharged home with limited no of Oxycodone -has known hx of pain medication dependency LEFT BREAST DRAINING WOUND /POSSIBLE BOIL ; wound culture ordered started on Doxycycline empirically HYPONATREMIA - chronic follow PRP PERIPHERAL VASCULAR DISEASE -Patient had bilateral femoral endarterectomies and bilateral iliac stents on 10/02/16. -follows with [facility] -Aspirin /Plavix resumed HTN -BP remains stable -as per Cardiology -clonidine will be weaned off -Lopressor D/irineo -started on Sotalol for rate controlled -cont Norvasc ( out pt meds) dose increased to 10 mg daily ANXIETY/DEPRESSION -continue Prozac GERD -continue PPI, Zantac HLD -continue Statin H/O ALCOHOL DEPENDENCE -no evidence of withdrawal symptoms TOBACCO ABUSE -cessation counseling given -decline nicotine patch DVT PROPHYLAXIS: on Coumadin Lovenox sub q 40 mg daily -prophylaxis dose till INR therapeutic CODE STATUS: FULL CODE
[2016-12-23] MEDS: OXYCODONE HCL IR 5 MG TAB (IMMEDIATE RELEASE) PO PRN ×4 (02:16→14:48)
[2016-12-23 04:25] VITALS: BP 126/77; PULSE 78; TEMP 36.4; O2SAT 97
[2016-12-23 06:20] LABS: HEMATOCRIT 30.6 % (37-47); MEAN CELL VOLUME 92.7 fL (80-100); MEAN CORPUSCULAR HEMOGLOBIN 30.6 pg (25-34); MEAN PLATELET VOLUME 11.4 fL (7.4-10.4); PLATELET COUNT 268 K/uL (130-400); WHITE BLOOD COUNT 7.59 K/uL (4.8-10.8)
[2016-12-23] MEDS: ACETAMINOPHEN 500 MG TAB PO SCH ×2 (06:24→13:50)
[2016-12-23 06:25] LABS: INR 1.1 (0.9-1.1); PROTHROMBIN TIME (PATIENT) 11.9 SECONDS (9.0-12.0)
[2016-12-23 06:53] LABS: BUN/CREATININE RATIO 12.6 (10-20); CALCIUM 8.6 mg/dl (8.5-10.1); CREATININE 0.76 mg/dl (0.60-1.20); POTASSIUM 3.7 mmol/L (3.5-5.1)
[2016-12-23 07:20] VITALS: BP 156/93; PULSE 66; TEMP 36.7; O2SAT 97
[2016-12-23] MEDS: AMLODIPINE BESYLATE 5 MG TAB PO SCH (09:10)
[2016-12-23] MEDS: DOXYCYCLINE HYCLATE 100 MG CAP PO SCH (09:10)
[2016-12-23] MEDS: PANTOprazole SOD 40 MG TAB PO SCH (09:11)
[2016-12-23] MEDS: CLOPIDOGREL BISULFATE 75 MG TAB PO SCH (09:12)
[2016-12-23] MEDS: FLUOXETINE HCL 20 MG CAP PO SCH (09:12)
[2016-12-23] MEDS: ASPIRIN 81 MG ECTAB PO SCH (09:12)
[2016-12-23] MEDS: SOTALOL HCL 80 MG TAB PO SCH (09:13)
[2016-12-23] MEDS: ENOXAPARIN 40 MG/0.4 ML SYR SQ SCH (09:14)
--- NOTE | 2016-12-23 09:48 | Cardiology Follow-Up ---
Subjective General Date of Service: Dec 23, 2016. Chief Complaint: follow-up atrial fibrillation peripheral arterial disease Pt evaluation today including: conversation w/ patient, physical exam History of Present Illness The patient is a 56 year old female seen in follow up. Patient denies chest pain or palpitations. She notes feeling a little tired this am and had some pain at her ankle surgery site last ,night but better now. Telemetry reveals SR at 66 bpm with occasional PVCs. No recent prolonged AF episodes overnight. No significant bradycardia. Allergies Coded Allergies: Adhesives (Verified Allergy, Mild, 12/13/16) Guanfacine (Verified Allergy, Unknown, 12/13/16) Nifedipine (Verified Allergy, Unknown, 12/13/16) Social History Smoking Status: Current Some Day Smoker Hx Tobacco Use In Past Year?: Yes (quit cigarettes in september 2016) Hx Alcohol Use - Type And Amou: Yes (6 pack/week) Hx Substance Use - Type And Am: No Problem List Medical Problems: (1) Lower extremity edema Status: Acute (2) Trimalleolar fracture of ankle, closed Status: Acute Physical Exam Vital Signs Last Vital Signs Documentation Date Time Temp Pulse Resp B/P Pulse Ox O2 Delivery O2 Flow Rate FiO2 12/23/16 07:20 36.7 66 20 156/93 97 Room Air 12/19/16 07:58 2.0 Physical Exam Head: normocephalic Lungs: Auscultation: no wheezing, no rales/crackles Cardiovascular: Heart Auscultation: RRR, no rubs, no gallops Abdomen: Inspection & Palpation: soft, non-distended, no tenderness, guarding & rebound Extremities: no cyanosis, no edema Neurologic: Gait & Station: pertinent finding (no focal neurologic deficits) Assessment and Plan Assessment and Plan Impression: 56-year-old female 1. Status post operative intervention for trimalleolar fracture, 12/18/16 2. Symptomatic atrial fibrillation borderline tachycardia bradycardia syndrome~ a symptomatic -bradycardia has resolved with weaning clonidine, metoprolol succinate 12.5 mg daily DCd, transitioned to sotalol 80 mg PO BID which she is tolerating. 3. History of large peripheral arterial disease for which patient underwent bilateral femoral endarterectomy with iliac stenting 10/02/16 he requires dual antiplatelet therapy 4. Hypertension has been on clonidine for many years- BPs for the most part stable with weaning clonidine, increased amlodipine dose, addition of sotalol. 5. Dyslipidemia 6. post operative pain Recommendations: Continue ASA, plavix, coumadin. Lovenox DVT proph dose until INR at goal Continue to wean clonidine, now on 0.05 mg at HS. Will plan to hopefully DC at post hospital cardio follow up if BP is controlled. Continue sotalol 80 mg BID. Pt counseled to avoid antibiotics that prolong QTc such as quinolones , and macrolides. Pain management input noted and appreciated. Stable for DC from arrhythmia standpoint and BP standpoint. Patient is at very high risk for post op DVT after ankle Fx. Would either keep her in the hospital or consider discharge with continued lovenox DVT prophylaxis dose as outpatient until INR is greater than or equal to 2. Tex Kinsey D.O. Laboratory Results Last 24 Hours Test 12/23/16 05:43 White Blood Count 7.59 K/uL Red Blood Count 3.30 M/uL Hemoglobin 10.1 g/dL Hematocrit 30.6 % Mean Corpuscular Volume 92.7 fL Mean Corpuscular Hemoglobin 30.6 pg Mean Corpuscular Hemoglobin Concent 33.0 g/dl RDW Standard Deviation 50.5 fL RDW Coefficient of Variation 15.0 % Platelet Count 268 K/uL Mean Platelet Volume 11.4 fL Prothrombin Time 11.9 SECONDS Prothromb Time International Ratio 1.1 Sodium Level 141 mmol/L Potassium Level 3.7 mmol/L Chloride Level 106 mmol/L Carbon Dioxide Level 29 mmol/L Anion Gap 6.0 mmol/L Blood Urea Nitrogen 10 mg/dl Creatinine 0.76 mg/dl Est Creatinine Clear Calc Drug Dose 77.9 ml/min Estimated GFR () 101.6 Estimated GFR (Non- 87.7 BUN/Creatinine Ratio 12.6 Random Glucose 98 mg/dl Calcium Level 8.6 mg/dl
[2016-12-23 10:42] VITALS: BP 150/81; PULSE 66; TEMP 36.6; O2SAT 97
--- NOTE | 2016-12-23 12:34 | Progress Note ---
Subjective Date of Service: Dec 23, 2016. Subjective Pt evaluation today including: conversation w/ patient, physical exam, lab review, review of studies, review of inpatient medication list Saw/examined the patient in room 235 Doing well, ankle pain persists, but improves with pain medications No other issues to note: denies chest pain/palpitations/shortness of breath Problem List Medical Problems: (1) Lower extremity edema Status: Acute (2) Trimalleolar fracture of ankle, closed Status: Acute Review of Systems Constitutional: No chills, No fever, No weakness Respiratory: No cough, No dyspnea at rest, No dyspnea on exertion, No hemoptysis, No shortness of breath, No sputum, No wheezing Cardiac: No chest pain Abdomen: No diarrhea, No nausea, No pain, No vomiting Musculoskeletal: + joint pain (left ankle) Heme: No abnormal bleeding/bruising Medications Current Inpatient Medications Medications (Trade) Dose Ordered Sig/Rosa Route Start Time Stop Time Status Last Admin Dose Admin Aspirin (Ecotrin Tab) 81 mg DAILY PO 12/15/16 09:00 01/14/17 08:59 12/23/16 09:12 81 MG Fluoxetine HCl (Prozac Cap) 20 mg DAILY PO 12/15/16 09:00 01/14/17 08:59 12/23/16 09:12 20 MG Pantoprazole Sodium (Protonix Tab) 40 mg DAILY PO 12/15/16 09:00 01/14/17 08:59 12/23/16 09:11 40 MG Trazodone HCl (Desyrel Tab) 50 mg HS PRN PO 12/14/16 15:30 01/13/17 15:29 12/21/16 21:17 50 MG Ranitidine HCl (zANTac TAB) 300 mg HS PO 12/14/16 21:00 01/13/17 20:59 12/22/16 21:04 300 MG Diphenhydramine HCl (Benadryl Cap) 25 mg Q6H PRN PO 12/14/16 18:15 01/13/17 18:14 Atorvastatin Calcium (Lipitor Tab) 80 mg HS PO 12/15/16 21:00 01/14/17 20:59 12/22/16 21:04 80 MG Metoprolol Tartrate (Lopressor Iv) 5 mg Q6 PRN IV 12/15/16 11:30 01/14/17 11:29 12/19/16 15:58 5 MG Enoxaparin Sodium (Lovenox Inj) 40 mg QAM SQ 12/17/16 09:00 01/16/17 08:59 12/23/16 09:14 40 MG Clopidogrel Bisulfate (plAVix TAB) 75 mg DAILY PO 12/19/16 11:45 01/18/17 11:44 12/23/16 09:12 75 MG Warfarin Sodium (Coumadin Tab) 7.5 mg DAILY@1600 PO 12/19/16 16:00 01/18/17 15:59 12/22/16 16:36 7.5 MG Amlodipine Besylate (Norvasc Tab) 10 mg QAM PO 12/20/16 09:00 01/19/17 08:59 12/23/16 09:10 10 MG Miscellaneous Information (Pending Order) 1 ea DAILY@0800 N/A 12/20/16 08:00 01/19/17 07:59 Sotalol HCl (Betapace Tab) 80 mg BID PO 12/20/16 21:00 01/19/17 20:59 12/23/16 09:13 80 MG Lorazepam (Ativan Tab) 0.5 mg Q4 PRN PO 12/20/16 18:45 01/19/17 18:44 12/22/16 21:07 0.5 MG Ketorolac Tromethamine (Toradol Inj) 15 mg Q6H PRN IV. 12/20/16 19:00 12/25/16 18:59 12/21/16 07:32 15 MG Oxycodone HCl (Roxicodone Immediate Rel Tab) `1-2 tabs for pain 1 tab ... Q4HWA PRN PO 12/21/16 11:15 01/04/17 11:14 12/23/16 10:38 10 MG Acetaminophen (Tylenol Tab) 1,000 mg Q8 PO 12/21/16 14:00 01/20/17 13:59 12/23/16 06:24 1,000 MG Doxycycline Hyclate (Vibramycin Cap) 100 mg BID PO 12/22/16 11:30 01/01/17 11:29 12/23/16 09:10 100 MG Clonidine HCl (Catapres Tab) 0.05 mg HS PO 12/22/16 21:00 01/21/17 20:59 12/22/16 21:03 0.05 MG Objective Vital Signs Date Time Temp Pulse Resp B/P Pulse Ox O2 Delivery O2 Flow Rate FiO2 12/23/16 11:30 Room Air 12/23/16 10:42 36.6 66 20 150/81 97 Room Air 12/23/16 07:20 36.7 66 20 156/93 97 Room Air 12/23/16 07:15 Room Air 12/23/16 04:25 36.4 78 16 126/77 97 Room Air 12/23/16 04:00 Room Air 12/23/16 00:00 Room Air 12/22/16 20:15 36.7 72 18 128/79 92 Room Air 12/22/16 20:00 Room Air 12/22/16 16:00 Room Air 12/22/16 15:51 36.7 63 20 118/71 100 Room Air 12/22/16 12:00 Room Air Physical Exam General Appearance: no apparent distress ENT: hearing grossly normal Respiratory/Chest: chest non-tender, lungs clear, normal breath sounds, no respiratory distress, no accessory muscle use Cardiovascular: regular rate, rhythm, no edema, no gallop, no JVD, no murmur Abdomen: normal bowel sounds, non tender, soft Extremities: normal inspection, no pedal edema, + pertinent finding (left ankle cast: moving toes, good capillary refill) Neurologic/Psychiatric: no motor/sensory deficits, alert, normal mood/affect Skin: normal color Laboratory Results Last 24 Hours Test 12/23/16 05:43 White Blood Count 7.59 K/uL Red Blood Count 3.30 M/uL Hemoglobin 10.1 g/dL Hematocrit 30.6 % Mean Corpuscular Volume 92.7 fL Mean Corpuscular Hemoglobin 30.6 pg Mean Corpuscular Hemoglobin Concent 33.0 g/dl RDW Standard Deviation 50.5 fL RDW Coefficient of Variation 15.0 % Platelet Count 268 K/uL Mean Platelet Volume 11.4 fL Prothrombin Time 11.9 SECONDS Prothromb Time International Ratio 1.1 Sodium Level 141 mmol/L Potassium Level 3.7 mmol/L Chloride Level 106 mmol/L Carbon Dioxide Level 29 mmol/L Anion Gap 6.0 mmol/L Blood Urea Nitrogen 10 mg/dl Creatinine 0.76 mg/dl Est Creatinine Clear Calc Drug Dose 77.9 ml/min Estimated GFR () 101.6 Estimated GFR (Non- 87.7 BUN/Creatinine Ratio 12.6 Random Glucose 98 mg/dl Calcium Level 8.6 mg/dl Assessment and Plan This is a 56 year old female with PMH of paroxysmal atrial fibrillation, significant peripheral vascular disease with bilateral iliac stent placement, anxiety/depression, HTN, chronic pain syndrome, presents s/p mechanical fall and trimalleolar fracture, exacerbated by atrial fibrillation with rapid ventricular response Left Trimalleolar Fracture secondary to Mechanical Fall Patient presented with a mechanical fall; denies syncopal event, denies palpitations, chest pain, dizziness, etc. Radiographs of the left ankle confirm trimalleolar fracture had surgery on 12/18 12/23 s/p ORIF; POD#5 appreciate orthopedic input nonweightbearing on the left lower extremity continue pain medications as per pain management Oxycodone 5-10mg q4 PRN PT/OT plan is for d/c home; patient's will care for the patient Atrial Fibrillation with Rapid Ventricular Response patient developed A. Fib with rates in the 140s on 12/19 was given one dose of IV Lopressor had near tachy-kelly syndrome metoprolol was stopped and cardiology started sotalol QTc checked since 12/19 until 12/23 and no prolongation noted should avoid quinolones and macrolides in the future (or monitor QTc while doing so) continue aspirin, Plavix, Coumadin, sotalol on discharge continue Lovenox until INR therapeutic - due to high risk of DVT 12/23 Unfortunately, patient cannot afford Lovenox co-pay We will have to keep patient until INR is therapeutic between 2-3 Will give another 7.5mg of Coumadin tonight and recheck INR in AM Peripheral Vascular Disease patient has significant vascular disease follows with [facility] She has had bilateral femoral endarterectomies and bilateral iliac stents placed continue aspirin/Plavix Chronic Pain Syndrome appreciate pain management input patient takes chronic pain medications for other joint issues at this point, we will continue oxycodone 5-10mg q4 PRN she can also take Tylenol in between the doses if she needs will need to limit number of oxycodone given due to her past history of dependency Fluid-filled Boil on Left Breast wound culture - coag negative Staph started on doxycycline, will continue this on discharge for a total of 10 days Mild Hyponatremia chronic, improving HTN appreciate cardiology input will taper off clonidine increased Norvasc to 10mg continue sotalol BP stable; breakthrough pain may be increasing this Anxiety/Depression continue home medications GERD continue home medications HLD continue statin DVT ppx Lovenox --> Coumadin FULL CODE d/c home once INR is therapeutic
[2016-12-23] MEDS ORDERED: LVNIS40 SQ (13:55)
[2016-12-23] MEDS ORDERED: CLON0.1T12 PO (14:24)
[2016-12-23] MEDS ORDERED: RXC5 PO (14:24)
[2016-12-23] MEDS ORDERED: DXY100 PO (14:24)
[2016-12-23] MEDS ORDERED: BTP80 PO (14:24)
[2016-12-23] MEDS ORDERED: AMLO-114 PO (14:24)
--- NOTE | 2016-12-23 14:32 | Discharge Instructions ---
Discharge Instructions Date of Service Dec 23, 2016. Admission Reason for Admission: Left Trimalleolar Fracture Discharge Discharge Diagnosis / Problem: Left Trimalleolar Fracture; A. Fib with RVR Discharge Goals Goal(s): Decrease discomfort, Improve function, Increase independence, Diagnostic testing, Therapeutic intervention Activity Recommendations Activity Limitations: resume your previous activity (do not drive until ) . Instructions / Follow-Up Instructions / Follow-Up Please follow-up with Dr. Tai on December 28 @ 9:30AM * You will be discharged with doxycycline (antibiotic) for the breast wound * You will be discharged on sotalol for your atrial fibrillation * Stop taking the metoprolol * Your dose of amlodipine is increased from 5mg to 10mg * Your dose of clonidine is decreased to half a tab at night and this should be tapered off * You will be taking Lovenox - inject 40mg daily and keep taking Coumadin 7.5mg until INR is between 2-3 * Please follow-up with the Coumadin clinic on Wednesday * I will prescribed oxycodone for pain - only take this as needed and only take the smallest amount to relieve pain - do not drive while taking this medication * Other instructions as per orthopedic surgery - please follow-up with them * You will get a phone call for a follow-up with cardiology Current Hospital Diet Patient's current hospital diet: Regular Diet Discharge Diet Recommended Diet: Regular Diet Procedures Procedures Performed: ORIF closed displaced trimalleolar left ankle fracture Pending Studies Studies pending at discharge: no Medical Emergencies . Who to Call and When: Medical Emergencies: If at any time you feel your situation is an emergency, please call 911 immediately. . Non-Emergent Contact Non-Emergency issues call your: Primary Care Provider, Welder Tack, Surgeon . . "Provider Documentation" section prepared by Eleonora Hatch. VTE Core Measure Inpt VTE Proph given/why not?: Other Anticoagulation (Lovenox/Coumadin), Lalit Joy, ANAHI's PA Drug Monitoring Program Search Results: patient reviewed within database, no issues identified Drug Monitoring Findings: Last prescribed oxycodone on 12/14 - 3 day supply No issues identified
--- NOTE | 2016-12-23 14:36 | Discharge Summary ---
Discharge Summary Date of Service Dec 23, 2016. Discharge Summary Admission Date: Dec 14, 2016 at 13:04 Discharge Date: Dec 23, 2016 Discharge Disposition: Home Principal Diagnosis: Left Trimalleolar Fracture Atrial Fibrillation with RVR Medication Reconciliation New Medications: Doxycycline Hyclate (Doxycycline Hyclate) 100 Mg Cap 100 MG PO BID for 10 Days, #20 CAP Enoxaparin (Enoxaparin Sodium) 40 Mg/0.4 Ml Inj 40 MG SQ QAM for 4 Days, #4 Oxycodone HCl (Oxycodone HCl) 5 Mg Tab 5-10 MG PO Q4HWA PRN for Pain for 5 Days, #50 TAB Sotalol HCl (Sotalol HCl) 80 Mg Tab 80 MG PO BID for 30 Days, #60 TAB Changed Medications: Amlodipine (Norvasc) 10 Mg Tab 10 MG PO DAILY for 30 Days, #30 TAB (Changed from: Amlodipine (Norvasc) 5 Mg Tab 5 Mg PO DAILY) Clonidine Hcl (Catapres) 0.1 Mg Tab 0.5 TAB PO HS for 10 Days, #10 TAB 0 Refills (Changed from: 1 TAB; BID; 180; 90 ; Refills: 3) Continued Medications: Aspirin (Aspirin Ec) 81 Mg Tab 81 MG PO DAILY Atorvastatin (Lipitor) 80 Mg Tab 80 MG PO DAILY, TAB Clopidogrel (Plavix) 75 Mg Tab 75 MG PO DAILY, TAB Fluoxetine (Prozac) 20 Mg Cap 20 MG PO DAILY, CAP Pantoprazole (Protonix) 40 Mg Tab 40 MG PO DAILY, #30 TAB Ranitidine (Zantac) 300 Mg Tab 300 MG PO HS, TAB Trazodone Hcl (Trazodone) 50 Mg Tab 50 MG PO HS PRN for Insomnia, TAB Warfarin Sodium (Warfarin Sodium) 5 Mg Tab 5 MG PO 4XWK @ 1600 for 90 Days, TAB 3 Refills TAKES SUN, TUES, THURS, AND SAT. Warfarin Sodium (Warfarin Sodium) 7.5 Mg Tab 7.5 MG PO 3XWK @ 1600, TAB TAKES MON, WED, FRI. Discontinued Medications: Metoprolol Succ (Toprol Xl) (Toprol-Xl) 50 Mg Tabcr 12.5 MG PO DAILY, #30 TAB Admission Information HPI (per Admitting provider): History of Present Illness Patient seen and examined. 56 year old female with PMHx of PVD s/p stents, afib on coumadin, HTN, Anxiety and other problems listed below is seen in consultation at the request of Dr. Griffiths for Coumadin reversal prior to surgery on left trimalleolar fracture following a mechanical fall yesterday. Patient reports pain is not well controlled. She rates it as a 15/10 and describes it as burning. She reports she has occasional palpitations, secondary to her afib. She denies fevers, chills, URI symptoms, chest pain, SOB, nausea, vomiting, diarrhea, dysuria. Patient had bilateral femoral endarterectomies and bilateral iliac stents on 10/02/16. She is on aspirin and Plavix. She saw vascular surgery today at [facility] who recommended holding Plavix for 5 days prior to surgery and to continue aspirin without interruption. Patient reports taking aspirin and Plavix today. She did not take her Coumadin. INR is 2.8. Past Medical/Surgical History Medical Problems: (1) Depression Status: Chronic (2) Dyslipidemia Status: Chronic (3) HTN (hypertension) Status: Chronic (4) PVD (peripheral vascular disease) Status: Chronic Surgical Problems: (1) H/O vascular surgery Permanent Comment: bilateral femoral endarterectomy with iliac stent 10/02/2016 Dr. Dharmesh Omalley, [facility] Status: Resolved (2) History of appendectomy Status: Resolved Social History Smoking Status: Current Some Day Smoker Alcohol Use: history of alcohol dependence Drug Use: none Marital Status: Housing Status: lives with family Occupation Status: employed Allergies Coded Allergies: Adhesives (Verified Allergy, Mild, 12/13/16) Guanfacine (Verified Allergy, Unknown, 12/13/16) Nifedipine (Verified Allergy, Unknown, 12/13/16) Current Inpatient Medications Current Inpatient Medications Medications (Trade) Dose Ordered Sig/Rosa Route Start Time Stop Time Status Last Admin Dose Admin Sodium Chloride (Nss 1000ml) 1,000 ml @ 80 mls/hr [id number] IV 12/14/16 13:30 01/13/17 13:29 12/14/16 13:41 80 MLS/HR Hydromorphone HCl (Dilaudid Inj) 1 mg Q2HWA PRN IV 12/14/16 14:45 12/28/16 14:44 UNV Review of Systems See above for pertinent positives & negatives. A total of 10 systems reviewed and were otherwise negative. Physical Exam Date Time Temp Pulse Resp B/P Pulse Ox O2 Delivery O2 Flow Rate FiO2 12/14/16 13:00 36.8 167 16 133/96 99 Room Air General Appearance: + pertinent finding (WD/WN 56 year old female lying in bed in mild distress with family at bedside ) Head: normocephalic, atraumatic Eyes: PERRL, EOMI, sclerae normal ENT: hearing grossly normal, pharynx normal Neck: supple, no JVD Respiratory/Chest: chest non-tender, lungs clear, normal breath sounds, no respiratory distress, no accessory muscle use Cardiovascular: regular rate, rhythm, no edema, no gallop, no JVD, no murmur, normal peripheral pulses Abdomen/GI: normal bowel sounds, non tender, soft Extremities/Musculoskelatal: no calf tenderness, normal capillary refill ( short left leg splint intact, motor function intact, good capillary refill ), no pedal edema, + pertinent finding Neurologic/Psych: alert, oriented x 3, + pertinent finding (no motor or sensory deficits noted on gross exam ) Skin: normal color, warm/dry, no rash Lymphatic: no adenopathy Laboratory Results Last 24 Hours Test 12/14/16 13:31 White Blood Count 10.90 K/uL Red Blood Count 4.53 M/uL Hemoglobin 14.7 g/dL Hematocrit 41.6 % Mean Corpuscular Volume 91.8 fL Mean Corpuscular Hemoglobin 32.5 pg Mean Corpuscular Hemoglobin Concent 35.3 g/dl RDW Standard Deviation 50.1 fL RDW Coefficient of Variation 14.8 % Platelet Count 206 K/uL Mean Platelet Volume 11.2 fL Prothrombin Time 31.0 SECONDS Prothromb Time International Ratio 2.8 Sodium Level 131 mmol/L Potassium Level 4.0 mmol/L Chloride Level 96 mmol/L Carbon Dioxide Level 25 mmol/L Anion Gap 10.0 mmol/L Blood Urea Nitrogen 8 mg/dl Creatinine 1.00 mg/dl Estimated GFR () 72.9 Estimated GFR (Non- 62.9 BUN/Creatinine Ratio 8.0 Random Glucose 120 mg/dl Calcium Level 9.7 mg/dl Assessment & Plan LEFT TRIMALLEOLAR FRACTURE -seen in consultation for Coumadin reversal. Discussed case with Santos orosco. Patient is also on aspirin and plavix. Vascular surgery recommends holding plavix for 5 days prior to surgery. If that is the case would recommend holding Coumadin and allowing INR to trend down; if surgery is to be sooner will consider reversal with Vitamin K. -Preop workup: CXR without acute changes, EKG nonischemic. Had echo and stress ekg in 10/13 which were stable. BNP with mild hyponatremia - possibly chronic in nature per lab review. No additional cardiovascular workup at this time -continue Aspirin perioperatively -continue BB perioperatively -resume Plavix/Coumadin as soon as okay with ortho -Pain control, bowel regimen, DVT prophylaxis, PT/OT, incentive spirometry, wound care per ortho HYPONATREMIA -131 today, appears to be chronic in nature -follow PRP daily ATRIAL FIBRILLATION -INR 2.8 -hold Coumadin for upcoming surgery -follow daily INR -continue BB -EKG with NSR rate 89, no ischemic changes PERIPHERAL VASCULAR DISEASE -s/p stenting in 10/13 -follows with [facility] Vascular Surgery -hold Plavix for surgery -continue Aspirin HTN -stable -continue metoprolol, amlodipine and clonidine ANXIETY/DEPRESSION -continue Prozac GERD -continue PPI, Zantac HLD -continue Statin H/O ALCOHOL DEPENDENCE -per chart review -reports she drinks "whatever beer is available at her house" -last drink 2 days ago -did not have any withdrawal symptoms during previous admission in September -will monitor and add gabapentin withdrawal protocol and/or Ativan if needed TOBACCO ABUSE -cessation counseling given -decline nicotine patch DVT PROPHYLAXIS: per ortho CODE STATUS: FULL CODE DISPO:per ortho Patient seen in collaboration with Dr. Oscar Thank you for this consultation. We will follow the patient with you during their hospital stay. You can reach a member of the [facility] Hospitalist Team 19/04 via pager @ . I have seen, examined and discussed this patient with Joya Emerson and I agree with the above note. Patient with ankle fracture. Medicine consulted for comanagement. Patient with paroxysmal Afib and PVD s/p stenting in 09/2016. Vitals reviewed. Unclear HR documentation of 167. HR on EKG in the 80's. PE: General- awake; alert; NAD Eyes- EOMI; no scleral icterus Neck- no stridor; trachea midline Lungs- CTA bilaterally; no wheezes/crackles Heart- RRR; no m/r/g Abdomen- soft; NTND; nBS Back- no gross abnormalities Extremities- LLE in cast Neuro- no focal deficits Skin- no appreciable rash Labs, imaging and EKG reviewed. Pre-op: Vascular surgery recommending holding clopidogrel 5 days prior to surgery (last dose 12/14/16). This was d/w Ortho. Continue aspirin. Resume clopidogrel post-op when ok with Ortho. Recent TTE and stress test 09/2016 were unremarkable. EGK without ischemic changes. CXR negative. No further evaluation prior to proceeding with surgery. If surgery postponed for 5 days, would recommend holding warfarin and let INR downtrend. If surgery to be sooner, then will give recommendations regarding reversal with vitamin K. Paroxysmal A fib: EKG with NSR. Continue metoprolol. Hold warfarin. HTN: Continue metoprolol, amlodipine and clonidine. Agree with remainder of plan as outlined above. <Electronically signed by Joya Emerson PA-C> <Electronically signed by Sondra Oscar MD> Signed: 12/14/16 1525 Signed: 12/14/16 1548 Hospital Course This is a 56 year old female with PMH of paroxysmal atrial fibrillation, significant peripheral vascular disease with bilateral iliac stent placement, anxiety/depression, HTN, chronic pain syndrome, presents s/p mechanical fall and trimalleolar fracture, exacerbated by atrial fibrillation with rapid ventricular response Left Trimalleolar Fracture secondary to Mechanical Fall Patient presented with a mechanical fall; denies syncopal event, denies palpitations, chest pain, dizziness, etc. Radiographs of the left ankle confirm trimalleolar fracture had surgery on 12/18 12/23 s/p ORIF; POD#5 appreciate orthopedic input nonweightbearing on the left lower extremity continue pain medications as per pain management Oxycodone 5-10mg q4 PRN PT/OT plan is for d/c home; patient's will care for the patient Atrial Fibrillation with Rapid Ventricular Response patient developed A. Fib with rates in the 140s on 12/19 was given one dose of IV Lopressor had near tachy-kelly syndrome metoprolol was stopped and cardiology started sotalol QTc checked since 12/19 until 12/23 and no prolongation noted should avoid quinolones and macrolides in the future (or monitor QTc while doing so) continue aspirin, Plavix, Coumadin, sotalol on discharge continue Lovenox until INR therapeutic - due to high risk of DVT 12/23 Unfortunately, patient cannot afford Lovenox co-pay We will have to keep patient until INR is therapeutic between 2-3 Will give another 7.5mg of Coumadin tonight and recheck INR in AM Peripheral Vascular Disease patient has significant vascular disease follows with [facility] Vascular Surgery She has had bilateral femoral endarterectomies and bilateral iliac stents placed continue aspirin/Plavix Chronic Pain Syndrome appreciate pain management input patient takes chronic pain medications for other joint issues at this point, we will continue oxycodone 5-10mg q4 PRN she can also take Tylenol in between the doses if she needs will need to limit number of oxycodone given due to her past history of dependency Fluid-filled Boil on Left Breast wound culture - coag negative Staph started on doxycycline, will continue this on discharge for a total of 10 days Mild Hyponatremia chronic, improving HTN appreciate cardiology input will taper off clonidine increased Norvasc to 10mg continue sotalol BP stable; breakthrough pain may be increasing this Anxiety/Depression continue home medications GERD continue home medications HLD continue statin DVT ppx Lovenox --> Coumadin FULL CODE d/c home once INR is therapeutic Total time spent on discharge = 55 minutes This includes examination of the patient, discharge planning, medication reconciliation, and communication with other providers. Discharge Instructions Please follow-up with Dr. Tai on December 28 @ 9:30AM * You will be discharged with doxycycline (antibiotic) for the breast wound * You will be discharged on sotalol for your atrial fibrillation * Stop taking the metoprolol * Your dose of amlodipine is increased from 5mg to 10mg * Your dose of clonidine is decreased to half a tab at night and this should be tapered off * You will be taking Lovenox - inject 40mg daily and keep taking Coumadin 7.5mg until INR is between 2-3 * Please follow-up with the Coumadin clinic on Wednesday * I will prescribed oxycodone for pain - only take this as needed and only take the smallest amount to relieve pain - do not drive while taking this medication * Other instructions as per orthopedic surgery - please follow-up with them * You will get a phone call for a follow-up with cardiology
[2016-12-23] MEDS ORDERED: LOVENOX TEACHING KIT SCH (16:00)
[2016-12-23 16:11] VITALS: BP 120/77; PULSE 66; TEMP 36.8; O2SAT 96
[2016-12-23] MEDS ORDERED: NURSING VERBAL MED ORDER ONE (16:30)
[2016-12-23 16:41] VITALS: BP 120/77; PULSE 66; TEMP 36.8; O2SAT 96
[2016-12-23] MEDS ORDERED: DOXYCYCLINE HYCLATE 100 MG CAP PO SCH (16:45)
[2016-12-23] MEDS ORDERED: ENOXAPARIN 40 MG/0.4 ML SYR SQ SCH (16:45)
[2016-12-23] MEDS ORDERED: SOTALOL HCL 80 MG TAB PO SCH (16:45)
[2016-12-23] MEDS: WARFARIN SOD 7.5 MG TAB PO SCH (17:37)
[2017-03-22] MEDS ORDERED: FNTTP50 TD (13:11)
[2017-03-22] MEDS ORDERED: AMLO-114 PO (13:11)
[2017-03-22] MEDS ORDERED: ONDA8TAB6 PO (13:11)
[2017-03-22] MEDS ORDERED: BUPR-79 PO (13:11)
[2017-04-16] MEDS ORDERED: augmentin PO (14:02)
[2017-05-21] MEDS ORDERED: WARF5TAB7 PO (11:51)
[2017-08-24] MEDS ORDERED: GABA1CAP4 PO ×2 (15:32→15:40)
[2017-08-24] MEDS ORDERED: METO25TA56 PO (15:40)
[2017-08-24] MEDS ORDERED: OXYC20TA32 PO (15:40)
[2017-08-24] MEDS ORDERED: CRD200 PO (15:40)
== END 2016-12-23 17:55 | disposition home or self-care (01) | DRG 493 ==
LOC: ENRESERVDT → ENRESERVTM → UNDOADMIN 12:37 → C.3E 12:37 → C.2T 17:31 → C.3E 17:31 → C.2T 12-15 20:47
PROVIDERS: ADMIT Orthopaedic Surgery; ATTEND Family Medicine
PROC: 0SSG04Z Reposition Left Ankle Joint with Internal Fixation Device, Open Approach (ICD-10-PCS; principal; 2016-12-18 13:30)
DX: S82.852A Displaced trimalleolar fracture of left lower leg, initial encounter for closed fracture (principal); E87.1 Hypo-osmolality and hyponatremia; I48.0 Paroxysmal atrial fibrillation; I73.9 Peripheral vascular disease, unspecified; I10 Essential (primary) hypertension; E78.00 Pure hypercholesterolemia, unspecified; F17.200 Nicotine dependence, unspecified, uncomplicated; J44.9 Chronic obstructive pulmonary disease, unspecified; K21.9 Gastro-esophageal reflux disease without esophagitis; D64.9 Anemia, unspecified; F41.9 Anxiety disorder, unspecified; Z79.01 Long term (current) use of anticoagulants; Z79.02 Long term (current) use of antithrombotics/antiplatelets; Z79.82 Long term (current) use of aspirin; G89.4 Chronic pain syndrome; W01.0XXA Fall on same level from slipping, tripping and stumbling without subsequent striking against object, initial encounter; F32.9 Major depressive disorder, single episode, unspecified; Z98.62 Peripheral vascular angioplasty status

== ENCOUNTER → 2017-01-15 | Outpatient (CLI) | payer BC ==
[~2017-01-15] MED LIST changes: +ACET-1138 PO; -AMLO-110 PO; +AMLO-114 PO; +AMOX875T PO; +BTP80 PO; +BUPR-79 PO; +BUPRTAB PO; +CEFT1INJ26 IV; +CRD200 PO; +DRGTP12 TD; +DXY100 PO; +FNTTP50 TD; +GABA1CAP4 PO; +LVNIS40 SQ; +METO25TA56 PO; -ONDA4TAB10 SL; +ONDA8TAB6 PO; -OXYC1TAB3 PO; +OXYC20TA32 PO; +OXYSR10 PO; +RXC5 PO; +SOTA80TA PO; +WARF5TAB7 PO; +ZOLP5TAB PO; +augmentin PO
--- NOTE | 2017-01-15 13:39 | DIAGNOSTIC IMAGING REPORT ---
LEFT LOWER EXTREMITY VENOUS DOPPLER HISTORY: Left leg pain and swelling. COMPARISON STUDY: None. FINDINGS: There is normal compressibility, flow, and augmentation within the left lower extremity deep venous system. IMPRESSION: No DVT within the left lower extremity. Electronically signed by: Manan Colmenares M.D. 01/15/2017 1:37 PM Dictated Date/Time: 01/15/2017 1:37 PM
== END | disposition home or self-care (01) ==
LOC: C.ULTRBC 12:14
PROVIDERS: ATTEND Orthopaedic Surgery Sports Medicine
DX: M79.605 Pain in left leg (principal)

== ENCOUNTER 2017-02-02 11:08 | Inpatient (IN) | payer BC ==
[2017-02-02] VITALS (9 sets, daily range): BP systolic 103–157; BP diastolic 66–94; PULSE 52–84; TEMP 36.3–36.9; O2SAT 93–100; Ht 157.5 cm; Wt 72.0 kg
[~2017-02-02] VITALS: Ht 157.5 cm; Wt 72.0 kg
[~2017-02-02 11:08] MED LIST changes: -ACET-1138 PO; -AMLO-114 PO; -AMOX875T PO; -BUPR-79 PO; -BUPRTAB PO; -CEFT1INJ26 IV; -CRD200 PO; -DRGTP12 TD; -FNTTP50 TD; -GABA1CAP4 PO; -METO25TA56 PO; -ONDA8TAB6 PO; -OXYC20TA32 PO; -OXYSR10 PO; -SOTA80TA PO; -WARF5TAB7 PO; -ZOLP5TAB PO; -augmentin PO
[2017-02-02] MEDS ORDERED: ALUMINUM/MAGNESIUM SUSP 30 ML UDC PO PRN (12:15)
[2017-02-02] MEDS ORDERED: ZOLPIDEM TARTRATE 5 MG TAB PO PRN (12:15)
[2017-02-02] MEDS ORDERED: ONDANSETRON INJ 2 MG/ML 2 ML VIAL IV PRN ×2 (12:15→15:00)
[2017-02-02] MEDS ORDERED: ACETAMINOPHEN 325 MG TAB PO PRN (12:15)
[2017-02-02] MEDS ORDERED: MAGNESIUM HYDROXIDE SUSP 30 ML UDC PO PRN (12:15)
--- NOTE | 2017-02-02 13:07 | HISTORY & PHYSICAL EXAMINATION ---
DATE OF ADMISSION: 02/02/2017 ADMISSION HISTORY AND PHYSICAL SUBJECTIVE AND CHIEF COMPLAINT: Left ankle pain. HISTORY OF PRESENT ILLNESS: This is a patient who had undergone an ORIF of her left ankle approximately 7 weeks ago. She had been treated in a splint postoperatively and then into a short leg cast; however, she had increasing pain while in the cast. The cast was removed and she was placed into a high-walking boot but kept nonweightbearing. She followed up today 02/02/2017 for reevaluation of the left ankle and was noted to have drainage from the lateral ankle incision as well as foul odor. She was admitted for a surgical I\T\D and also IV antibiotics. PAST MEDICAL HISTORY: History of vascular disease with iliac stents placed in September of 2016, peripheral vascular disease, hypertension, hypercholesterolemia, chronic tobacco abuse and depression. ALLERGIES: NIFEDIPINE AND ADHESIVES. CURRENT MEDICATIONS: Amlodipine, aspirin, Coumadin, Plavix, Lipitor, clonidine, Prozac and Protonix. PAST SURGICAL HISTORY: Iliac stents, appendectomy and an ORIF of a left trimalleolar fracture. FAMILY HISTORY: Noncontributory. SOCIAL HISTORY: The patient is a 1 pack per day smoker. She has a history of alcohol dependence. She is and lives with her family. OBJECTIVE PHYSICAL EXAMINATION: GENERAL: The patient is alert and oriented x3. She is in no acute distress. She is a well-dressed, well-nourished 57-year-old female. Her affect is appropriate. CARDIOVASCULAR: Heart has a regular rhythm and rate without murmurs. LUNGS: Clear to auscultation bilateral. Dorsalis pedis, posterior tib pulse +1/4. Capillary refill is approximately 2 seconds. LYMPHATIC: No evidence of any swollen lymph nodes. MUSCULOSKELETAL: The patient is nonweightbearing on the left lower extremity. Upon inspection of the left lower extremity, the medial ankle incision is well-healed, lateral ankle incision has some mild dehiscence with moderate serous drainage from the incision. The drainage is malodorous. Range of motion and strength testing was deferred today. NEUROLOGIC: Sensation normal and intact distally. ASSESSMENT AND DIAGNOSIS: 1. Left ankle dehiscence with infected lateral ankle wound incision. PLAN: Above assessment was discussed with the patient. At this time, the patient was admitted to [facility] for an incision and drainage of the left ankle of infected surgical wound for later today. She was kept n.p.o. with breakfast being her last meal. She is nonweightbearing on the left lower extremity. Ancef 2 grams insurance verification clerk to the OR was ordered. Cultures will be performed within the OR and probable use of Ancef postoperative. Medicine will be consulted for the patient's medical management and also infectious disease will be consulted for antibiotic choice. We appreciate follow input. The patient's disposition will be determined by findings within the OR cultures and also antibiotic choice. CHRIS
[2017-02-02 13:28] LABS: MEAN CELL VOLUME 90.3 fL (80-100); MEAN CORPUSCULAR HEMOGLOBIN 31.4 pg (25-34); MEAN CORPUSCULAR HGB CONC 34.7 g/dl (32-36); MEAN PLATELET VOLUME 10.3 fL (7.4-10.4); PLATELET COUNT 238 K/uL (130-400); RED BLOOD COUNT 4.21 M/uL (4.2-5.4); WHITE BLOOD COUNT 11.53 K/uL (4.8-10.8)
[2017-02-02] MEDS: MoRPHine SULFATE 2 MG/ML CARP IV PRN ×3 (13:47→23:11)
[2017-02-02] MEDS: D5W AND 1/2NSS 1,000 ML IV SCH ×2 (13:47→19:23)
[2017-02-02 13:50] LABS: INR 3.6 (0.9-1.1); PROTHROMBIN TIME (PATIENT) 40.4 SECONDS (9.0-12.0)
[2017-02-02] MEDS ORDERED: CEFAZOLIN 2000 MG/60 ML D5W 60 ML IV SCH (14:00)
[2017-02-02 14:13] LABS: BUN/CREATININE RATIO 5.4 (10-20); CALCIUM 9.4 mg/dl (8.5-10.1); CREATININE 0.71 mg/dl (0.60-1.20)
--- NOTE | 2017-02-02 14:25 | Progress Note ---
Progress Note Date of Service February 02, 2017. Progress Note ID Consult Dictated #[id number] A/P: 1. Infected prosthetic joint -Await OR findings, for OR later today -Follow blood and OR cultures -Would start emperic vanco after OR culture obtained -Will follow, thank you
--- NOTE | 2017-02-02 14:30 | Medical Consult ---
Consultation Date of Consultation: February 02, 2017. Attending Physician: Yuri Fischer D.O. Reason for Consultation: medical management History of Present Illness Patient seen and examined in room 355-2 after being admitted by orthopedics Carlito Aguilar PA-C for left ankle infected incision. Patient underwent ORIF of left trimalleolar ankle fracture in November 2016. She had postop AF with RVR as well as near tachy kelly syndrome and was evaluated by cardiology. Metoprolol was discontinued and she was started on sotalol. Her clonidine was decreased in the hospital and discontinued by Lorrie Rangel PA-C at cardiology follow up. Today patient reports worsening of left ankle pain 2-3 days ago with associated swelling and drainage. Patient currently rates pain 06/06. Pt states she was taking narcotic pain medication previously at home but ran out. She has been non weight bearing. No repeat injury. Pt saw Dr. Fischer in clinic today and noted to have drainage with a foul odor and was therefore sent for direct admission. Pt additionally notes that her cat scratched the dorsum of her right foot today. Patient denies fever, chills, dizziness, URI symptoms, cough, SOB, chest pain, palpitations, N/V, change in bowel or bladder movements. Past Medical/Surgical History Medical Problems: (1) Depression Status: Chronic (2) Dyslipidemia Status: Chronic (3) HTN (hypertension) Status: Chronic (4) Paroxysmal atrial fibrillation Status: Chronic (5) PVD (peripheral vascular disease) Status: Chronic Surgical Problems: (1) H/O vascular surgery Permanent Comment: bilateral femoral endarterectomy with iliac stent 10/02/2016 Dr. Dharmesh Omalley, [facility] Status: Resolved (2) History of appendectomy Status: Resolved (3) Status post ORIF of fracture of ankle Permanent Comment: 12/18/16- ORIF closed displaced trimalleolar left ankle fracture; Dr. Fischer Status: Chronic Family History Hypertension FATHER MOTHER Social History Smoking Status: Current Every Day Smoker (1 pack per day ) Marital Status: Housing Status: lives with family Occupation Status: employed Allergies Coded Allergies: Adhesives (Verified Allergy, Mild, 12/13/16) Guanfacine (Verified Allergy, Unknown, 12/13/16) Nifedipine (Verified Allergy, Unknown, 12/13/16) Home Medications Active Oxycodone HCl 5 Mg Tab 5-10 Mg PO Q4HWA PRN 5 Days Sotalol HCl 80 Mg Tab 80 Mg PO BID 30 Days Reported Warfarin Sodium 7.5 Mg Tab 7.5 Mg PO 3XWK @ 1600 TAKES MON, WED, FRI. Warfarin Sodium 5 Mg Tab 5 Mg PO 4XWK @ 1600 90 Days TAKES SUN, TUES, THURS, AND SAT. Trazodone (Trazodone HCl) 50 Mg Tab 50 Mg PO HS PRN Zantac (Ranitidine HCl) 300 Mg Tab 300 Mg PO HS Protonix (Pantoprazole Sodium) 40 Mg Tab 40 Mg PO DAILY Prozac (Fluoxetine HCl) 20 Mg Cap 20 Mg PO DAILY Aspirin Ec (Aspirin) 81 Mg Tab 81 Mg PO DAILY Lipitor (Atorvastatin Calcium) 80 Mg Tab 80 Mg PO HS Plavix (Clopidogrel Bisulfate) 75 Mg Tab 75 Mg PO DAILY Current Inpatient Medications Current Inpatient Medications Medications (Trade) Dose Ordered Sig/Rosa Route Start Time Stop Time Status Last Admin Dose Admin Doxycycline Hyclate (Vibramycin Cap) 100 mg BID PO 02/02/17 21:00 03/04/17 20:59 Fluoxetine HCl (Prozac Cap) 20 mg DAILY PO 02/03/17 09:00 03/05/17 08:59 Oxycodone HCl (Roxicodone Immediate Rel Tab) 1 tab for pain rated 1-5 2 t... Q4HWA PRN PO 02/02/17 12:15 02/16/17 12:14 Pantoprazole Sodium (Protonix Tab) 40 mg DAILY PO 02/03/17 09:00 03/05/17 08:59 Sotalol HCl (Betapace Tab) 80 mg BID PO 02/02/17 21:00 03/04/17 20:59 Trazodone HCl (Desyrel Tab) 50 mg HS PRN PO 02/02/17 12:15 03/04/17 12:14 Ranitidine HCl (zANTac TAB) 300 mg HS PO 02/02/17 21:00 03/04/17 20:59 Acetaminophen (Tylenol Tab) 650 mg Q6H PRN PO 02/02/17 12:15 03/04/17 12:14 Diphenhydramine HCl (Benadryl Cap) 25 mg Q8 PRN PO 02/02/17 12:15 03/04/17 12:14 Zolpidem Tartrate (Ambien Tab) 5 mg HSZ PRN PO 02/02/17 12:15 03/04/17 12:14 Ondansetron HCl (Zofran Inj) 4 mg Q6H PRN IV 02/02/17 12:15 03/04/17 12:14 Al Hydroxide/Mg Hydroxide (Maalox Susp) 30 ml Q6H PRN PO 02/02/17 12:15 03/04/17 12:14 Docusate Sodium (coLACE CAP) 100 mg BID PO 02/02/17 21:00 03/04/17 20:59 Magnesium Hydroxide 30 ml 30 ml Q6H PRN PO 02/02/17 12:15 03/04/17 12:14 Dextrose/Sodium Chloride 1,000 ml @ 75 mls/hr [id number] IV 02/02/17 12:10 03/04/17 12:09 Cefazolin Sodium (Ancef 2000mg/60 ml D5W) 60 ml @ 100 mls/hr PREOP@1400 IV 02/02/17 14:00 02/02/17 18:00 Morphine Sulfate (MoRPHine SULFATE INJ) 2 mg Q1HWA PRN IV 02/02/17 12:45 02/16/17 12:44 Atorvastatin Calcium (Lipitor Tab) 80 mg HS PO 02/02/17 21:00 03/04/17 20:59 UNV Review of Systems Ten systems reviewed and negative except as noted in HPI. Physical Exam Date Time Temp Pulse Resp B/P Pulse Ox O2 Delivery O2 Flow Rate FiO2 02/02/17 12:11 36.9 52 18 157/94 Room Air General Appearance: WD/WN, no apparent distress Head: normocephalic, atraumatic Eyes: normal inspection, PERRL, EOMI ENT: hearing grossly normal Neck: supple, trachea midline Respiratory/Chest: lungs clear, normal breath sounds, no respiratory distress Cardiovascular: regular rate, rhythm, no murmur Abdomen/GI: normal bowel sounds, non tender, soft Extremities/Musculoskelatal: + calf tenderness (left distal calf tenderness. right calf nontender. ), + pertinent finding (left ankle swelling. left ankle ROM limited by pain. ) Neurologic/Psych: alert, normal mood/affect, oriented x 3, + pertinent finding (no focal deficit on gross examination) Skin: + pertinent finding (left lateral ankle wound partially dehisced with tenderness, mild surrounding erythema. not actively draining at time of my exam. has small superficial abrasion on dorsum of right foot without erythema or drainage. ) Laboratory Results Last 24 Hours Test 02/02/17 12:40 02/02/17 13:12 Assessment & Plan LEFT ANKLE INCISION INFECTION Admitted by orthopedic service S/p ORIF left ankle 12/18/16 Plan for I&D today as per ortho Wound culture to be obtained in OR Afebrile; +leukocytosis (WBC 11.5k) Blood cultures pending Ancef will be given preoperatively ID consulted for antibiotic recommendations PAROXYSMAL ATRIAL FIBRILLATION EKG shows NSR Continue sotalol INR is 3.6 Coumadin held for procedure HYPERTENSION BP mildly elevated Likely due to pain Continue amlodipine CHRONIC HYPONATREMIA Na is 131 Monitor PVD Aspirin and Plavix held Continue statin GERD Continue PPI DVT PROPHYLAXIS Hold Coumadin for procedure Patient seen in collaboration with Dr. Hatch. Please see his addendum. ADDENDUM: This is a 57 year old female with a PMH of trimalleolar fracture s/p repair, sent over for infection of the L ankle infection. Was sent here by orthopedics - taken to the OR for I&D I saw the patient post-operatively, wound vac in place - pain controlled with medications ankle is dressed as per patient, the infection and drainage started on Wednesday, 01/31 No other issues to note Plan is to continue Vanco as per ID, check cultures pain control check H/H in AM hold Coumadin for ~ 2 days due to high INR continue aspirin + Plavix in AM if okay with ortho due to previous stenting of vessels in R leg
[2017-02-02 14:31] LABS: C-REACTIVE PROTEIN 9.01 mg/dl (0-0.29)
[2017-02-02] MEDS ORDERED: FENTANYL CITRATE INJ 50 MCG/1 ML 2 ML VIAL ONE ×2 (14:40→15:50)
[2017-02-02] MEDS ORDERED: MIDAZOLAM HCL 1 MG/ML 2ML VIAL ONE (14:40)
[2017-02-02] MEDS ORDERED: BACITRACIN 50000 UNIT VIAL ONE (14:50)
[2017-02-02] MEDS ORDERED: MEPERIDINE HCL 25 MG/ML CARP IV PRN (15:00)
[2017-02-02] MEDS ORDERED: EpHEDrine SULFATE INJ 50 MG/ML AMP IV PRN (15:00)
[2017-02-02] MEDS ORDERED: ALBUT/IPRATROP 3MG/0.5MG NEB 3 ML VIAL INH PRN (15:00)
[2017-02-02] MEDS ORDERED: ATROPINE SULFATE 0.1 MG/ML 5ML SYR IV PRN (15:00)
[2017-02-02] MEDS ORDERED: HYDROmorphone INJ 2 MG/ML SYR/VIAL ONE (15:58)
[2017-02-02] MEDS ORDERED: ONDANSETRON INJ 2 MG/ML 2 ML VIAL ONE (15:59)
[2017-02-02] MEDS ORDERED: LIDOCAINE HCL 2% 2 ML VIAL (20MG/ML) ONE (15:59)
[2017-02-02] MEDS ORDERED: PROPOFOL IV EMULSION 10 MG/ML 20 ML VIAL IV ONE (15:59)
[2017-02-02] MEDS ORDERED: DEXAMETHASONE SOD INJ 4 MG/ML VIAL ONE (15:59)
[2017-02-02] MEDS ORDERED: PHENYLEPHRINE 100MCG/ML 5ML SYR ONE (16:03)
[2017-02-02] MEDS: FENTANYL CITRATE INJ 50 MCG/1 ML 2 ML VIAL IV PRN ×4 (17:00→17:22)
--- NOTE | 2017-02-02 17:02 | [facility] Post Operative Brief Note ---
Immediate Operative Summary Operative Date February 02, 2017. Pre-Operative Diagnosis Left lateral ankle wound dehiscence; cellulitis Post-Operative Diagnosis Same as preop. Procedure(s) Performed Left ankle irrigation and debridement inculding skin, fascia, muscle and tendon. Surgeon Dr. Fischer Cell Cleaner Surgeon(s) None. Estimated Blood Loss 1 ML Findings See dict Specimens 1: Left lateral ankle incison routine culture and sensitivity, aerobic, anerobic, gram stain. Drains Prevena drain Anesthesia GLMA Complication(s) None Disposition Recovery Room / PACU
[2017-02-02] MEDS ORDERED: DiphenhydrAMINE HCL 50 MG/ML VIAL ONE (17:10)
[2017-02-02] MEDS ORDERED: LABETALOL HCL IV 5 MG/ML 20ML IV ONE (17:10)
[2017-02-02] MEDS: MoRPHine SULFATE 10 MG/ML CARP/VIAL IV PRN ×3 (17:27→17:37)
--- NOTE | 2017-02-02 17:51 | Anesthesiology Progress Note ---
Anesthesia Post Op Note Date & Time February 02, 2017 at 17:51 Vital Signs Pain Intensity: 7 Vital Signs Past 12 Hours Date Time Temp Pulse Resp B/P Pulse Ox O2 Delivery O2 Flow Rate FiO2 02/02/17 17:40 84 16 97/63 96 Nasal Cannula 2 02/02/17 17:30 91 16 94/78 98 Nasal Cannula 2 02/02/17 17:20 90 16 118/73 95 Nasal Cannula 2 02/02/17 17:10 117 16 133/110 98 Nasal Cannula 2 02/02/17 17:00 125 12 130/91 100 Nasal Cannula 2 02/02/17 16:50 111 12 132/106 100 Nasal Cannula 2 02/02/17 16:44 36.9 119 16 161/75 98 Nasal Cannula 2 02/02/17 13:28 36.9 52 18 157/94 100 Room Air 02/02/17 12:11 36.9 52 18 157/94 Room Air Notes Mental Status: alert / awake / arousable, participated in evaluation Pt Amnestic to Procedure: Yes Nausea / Vomiting: adequately controlled Pain: adequately controlled Airway Patency, RR, SpO2: stable & adequate BP & HR: stable & adequate Hydration State: stable & adequate Anesthetic Complications: no major complications apparent
[2017-02-02] MEDS: OXYCODONE HCL IR 5 MG TAB (IMMEDIATE RELEASE) PO PRN (19:56)
--- NOTE | 2017-02-02 20:37 | INFECT. DISEASE CONSULTATION ---
DATE OF CONSULTATION: 02/02/2017 REQUESTING PHYSICIAN: Dr. Fischer. HISTORY OF PRESENT ILLNESS: This is a 57-year-old female who was admitted from the orthopedic office today secondary to worsening left ankle pain. She did undergo an open reduction and internal fixation of her left ankle 7 weeks ago. She states since that time she has been having issues with pain. She was initially casted but this was removed 2 weeks ago secondary to pain. At that time, she was placed in the boot. Over the weekend, she had increasing pain and yesterday noticed seeping from the incision. She called her orthopedic office and was scheduled for an outpatient visit today. Upon examination, it was recommended she be admitted to the hospital for intravenous antibiotics as well as washout surgery, which is planned for later today. She denies any fevers or chills at home, but states the pain has been increasing. She did have morphine upon arrival to the hospital today with little relief. She admits to some yellow blood tinged drainage which is confirmed by the H\T\P. She is nonweightbearing on her ankle. She denies any nausea, vomiting, diarrhea or abdominal pain. She denies any chest pain or cough. All remaining review of systems are reviewed and are unremarkable except for as noted above. PAST MEDICAL HISTORY: Significant for valvular disease, iliac stent placement in September of 2016, peripheral vascular disease, hypertension, high cholesterol, and depression. PAST SURGICAL HISTORY: Significant for iliac stents, appendectomy and ORIF of left ankle 7 weeks prior to this admission. ALLERGIES: SHE HAS ALLERGIES TO NIFEDIPINE AND TAPE. FAMILY HISTORY: Noncontributory. SOCIAL HISTORY: Significant for daily tobacco use. She does have a history of alcohol use. She is and lives with family. She denies any sick contacts. MEDICATIONS: Include Prozac, Protonix, sotalol, ranitidine, Colace, Lipitor, Ancef perioperatively, morphine, oxycodone, trazodone, Tylenol, Benadryl, Ambien, Zofran, Maalox, and milk of magnesia. PHYSICAL EXAMINATION: VITAL SIGNS: She is afebrile, pulse 52, respiratory rate 18, blood pressure 157/94, oxygen saturation is 100% on room air. GENERAL: She is awake, alert and oriented x3. She is in no acute distress. HEENT: Mucous membranes are moist. Extraocular muscles are intact. HEART: Regular. LUNGS: Clear bilaterally. ABDOMEN: Soft and nondistended. EXTREMITIES: There is no right lower extremity edema. Examination of the left lower extremity reveals edema at the ankle. There is a large incision laterally which has dry eschar. There is no drainage noted on my examination; however, there is erythema, warmth and tenderness to light palpation. LABORATORY AND IMAGING STUDIES: CBC today reveals a white blood cell count of 11.5, hemoglobin 13.2, and platelets are 238. A sed rate is elevated at 24. Chemistry panel reveals a sodium of 131, potassium 4.0, chloride 97, bicarbonate 24, BUN 4, creatinine 0.7, glucose is 87. CRP is pending. Blood cultures are pending. There is no imaging from this visit. Review of old micro reveals a drainage culture from the groin on 12/21/2016 with coagulase negative staph. ASSESSMENT AND PLAN: 1. Infected left prosthetic joint. She has not received antibiotics to date. Blood cultures are pending, intraoperative wound cultures should be obtained. I would recommend starting this patient on vancomycin postoperatively pending the results of blood and wound cultures. We will follow along with you. Thank you for this consultation.
[2017-02-02] MEDS: DOCUSATE SODIUM 100 MG CAP PO SCH (20:51)
[2017-02-02] MEDS: ATORVASTATIN 40 MG TAB PO SCH (20:51)
[2017-02-02] MEDS: RANITIDINE HCL 150 MG TAB PO SCH (20:51)
[2017-02-02] MEDS: SOTALOL HCL 80 MG TAB PO SCH (20:52)
[2017-02-02] MEDS ORDERED: CLONIDINE HCL 0.1 MG TAB PO SCH (21:00)
[2017-02-02] MEDS ORDERED: DOXYCYCLINE HYCLATE 100 MG CAP PO SCH (21:00)
[2017-02-02] MEDS ORDERED: CEFAZOLIN IV 2,000 MG in DEXTROSE 5% 50ML 50 ML IV SCH (22:00)
--- NOTE | 2017-02-02 22:48 | OPERATIVE REPORT ---
DATE OF OPERATION: 02/02/2017 PREOPERATIVE DIAGNOSES: 1. Left lateral ankle wound dehiscence. 2. Cellulitis of the ankle. POSTOPERATIVE DIAGNOSES: Same. PROCEDURE: Left lateral ankle irrigation and debridement including skin, fascia, muscle and tendon, with application Prevena drain. SURGEON: Dr. Fischer. EXECUTIVE ASSOCIATE: None. ANESTHESIA: General LMA. SPECIMENS: Aerobic, anaerobic, Gram stain. DRAINS: Prevena drain lateral ankle. COMPLICATIONS: None. BLOOD LOSS: 1 mL PERTINENT HISTORY: This is a 57-year-old female who had sustained a trimalleolar ankle fracture, underwent ORIF approximately 7 weeks prior. The patient had an uneventful recovery course until the last several days, the patient noticed some increasing discharge from her left lateral ankle with serous drainage. She had no fevers or chills, no nausea or vomiting, no antecedent trauma. The patient has been in a walking boot, nonweightbearing. The patient was seen in clinic today, the wound was visualized, and the patient was then scheduled for surgery as indicated. Of note, the patient had been soaking at least a pack a day of cigarettes despite previous warning that the patient should stop smoking as soon as possible at the time of surgery. All potential risks, benefits, complications, alternatives, rehab, potential for incomplete relief of symptoms, need for further surgery, DVT, PE, , persistent pain, swelling, scarring, weakness, neurovascular injury, wound complications, hardware failure, nonunion, malunion were discussed with the patient. The patient decided to proceed with the procedure as indicated. PROCEDURE IN DETAIL: The patient was taken to the operative suite, placed supine on the operating table. I reviewed consent and identification of proper operative site, the patient was anesthetized, LMA was placed. Tourniquet was placed high on the left thigh over cast padding. Left lower extremity was then sterilely prepped and draped in usual fashion, elevated, and tourniquet inflated to 325 mmHg. There was no exsanguination utilized due to the patient's wound dehiscence and potential infection. The 15 blade scalpel was then used to incise the necrotic tissue from the lateral aspect of the ankle down to fresh bleeding tissue. This included debridement of the fascia and then there was also noted to be small distal portion of the peroneal tendons which were exposed. This damaged tissue was then also sharply debrided with a 15 blade scalpel. This also included some of the peroneal muscle on the lateral aspect of the wound. Next, a culture swab was obtained. Aerobic, anaerobic and Gram stain specimens were ordered. This was passed off to be taken to the laboratory. Next, pulsatile lavage 6 liters with bacitracin was then used to lavage the wound until clear. This was then followed by noting some exposed hardware distal aspect of the incision; however, the wound edges could be approximated over the hardware, and therefore, no further hardware would be exposed. The patient's health status including her poor vascular status and the fact that the patient had continued to smoke weighs in the decision making regarding possibility of removing the hardware. The hardware was felt to be stabilized in the lateral malleolus which was not felt to be mature in its healing due to the aforementioned medical comorbidities, therefore, the hardware was left in place. An attempt was made to salvage the wound by direct closure. Next, 2-0 nylon sutures were used to approximate the skin edges using approximating sutures using vertical mattress, horizontal mattress, and tension sutures. After this was completed, the wound was noted to be completely approximated. There was no exposed hardware or bone. Next, the wound was sponge dried with lap sponges, top gloves were changed, and a Prevena drain was then sized and placed into the lateral aspect of the ankle. Next, a sterile lightly compressive dressing was applied as well as a posterior fiberglass splint to stabilize the ankle in neutral dorsiflexion. This was overwrapped with an Santosh wrap. The tourniquet was then released. The patient was awakened and taken to recovery in stable condition. I attest to the content of the Intraoperative Record and any orders documented therein. Any exceptio ns are noted below.
[2017-02-03] MEDS: OXYCODONE HCL IR 5 MG TAB (IMMEDIATE RELEASE) PO PRN ×6 (00:01→23:44)
[2017-02-03] MEDS: TRAZODONE HCL 50 MG TAB PO PRN ×2 (00:17→23:45)
[2017-02-03] MEDS: MoRPHine SULFATE 2 MG/ML CARP IV PRN ×4 (01:58→12:13)
[2017-02-03 03:16] VITALS: BP 113/71; PULSE 69; TEMP 36.6; O2SAT 97
[2017-02-03 06:59] LABS: HEMATOCRIT 32.3 % (37-47); MEAN CELL VOLUME 92.8 fL (80-100); MEAN CORPUSCULAR HEMOGLOBIN 31.9 pg (25-34); MEAN CORPUSCULAR HGB CONC 34.4 g/dl (32-36); MEAN PLATELET VOLUME 10.9 fL (7.4-10.4); PLATELET COUNT 201 K/uL (130-400); RED BLOOD COUNT 3.48 M/uL (4.2-5.4); WHITE BLOOD COUNT 9.25 K/uL (4.8-10.8)
[2017-02-03 07:08] LABS: INR 2.8 (0.9-1.1); PROTHROMBIN TIME (PATIENT) 31.6 SECONDS (9.0-12.0)
[2017-02-03 07:34] VITALS: BP 137/74; PULSE 65; TEMP 36.7; O2SAT 98
[2017-02-03 07:35] LABS: CREATININE 0.7 mg/dl (0.60-1.20); MAGNESIUM 2.3 mg/dl (1.8-2.4); POTASSIUM 4.3 mmol/L (3.5-5.1)
--- NOTE | 2017-02-03 08:28 | Anesthesiology Progress Note ---
Anesthesia Post Op Note Date & Time February 03, 2017 at 08:28 Vital Signs Pain Intensity: 9.0 Vital Signs Past 12 Hours Date Time Temp Pulse Resp B/P Pulse Ox O2 Delivery O2 Flow Rate FiO2 02/03/17 07:34 36.7 65 16 137/74 98 Room Air 02/03/17 03:16 36.6 69 16 113/71 97 Room Air 02/02/17 22:56 36.3 68 16 115/72 95 Room Air 02/02/17 21:44 36.8 75 18 109/66 95 Room Air Notes Mental Status: alert / awake / arousable, participated in evaluation Pt Amnestic to Procedure: Yes Nausea / Vomiting: adequately controlled Pain: adequately controlled Airway Patency, RR, SpO2: stable & adequate BP & HR: stable & adequate Hydration State: stable & adequate Anesthetic Complications: no major complications apparent
[2017-02-03] MEDS ORDERED: ATORVASTATIN 40 MG TAB PO SCH (09:00)
[2017-02-03] MEDS ORDERED: VANCOMYCIN INJ 1,100 MG in SODIUM CHLORIDE 0.9% 250ML 250 ML IV SCH (09:00)
[2017-02-03] MEDS ORDERED: VANCOMYCIN INJ 1,100 MG in SODIUM CHLORIDE 0.9% 500ML 500 ML IV SCH (09:00)
[2017-02-03] MEDS: D5W AND 1/2NSS 1,000 ML IV SCH ×2 (09:10→23:43)
[2017-02-03] MEDS: ASPIRIN 81 MG ECTAB PO SCH (09:15)
[2017-02-03] MEDS: CLOPIDOGREL BISULFATE 75 MG TAB PO SCH (09:15)
[2017-02-03] MEDS: FLUOXETINE HCL 20 MG CAP PO SCH (09:15)
[2017-02-03] MEDS: PANTOprazole SOD 40 MG TAB PO SCH (09:15)
[2017-02-03] MEDS: DOCUSATE SODIUM 100 MG CAP PO SCH ×2 (10:52→21:29)
[2017-02-03] MEDS: SOTALOL HCL 80 MG TAB PO SCH ×2 (10:52→21:29)
--- NOTE | 2017-02-03 11:21 | Orthopedic Progress Note ---
Orthopedic Progress Note Date of Service February 03, 2017. Subjective Post OP Day: 1 Reports: feeling well, pain controlled w PO medications, Denies: calf pain Additional Notes: States the morphine doesn't seem to be helping much. Objective calves soft nontender, N/V intact, splint C/D/I, A&O x3, toes mobile Prevena dressing in place and functioning beneath the splint. Date Time Temp Pulse Resp B/P Pulse Ox O2 Delivery O2 Flow Rate FiO2 02/03/17 07:34 36.7 65 16 137/74 98 Room Air 02/03/17 03:16 36.6 69 16 113/71 97 Room Air 02/02/17 22:56 36.3 68 16 115/72 95 Room Air 02/02/17 21:44 36.8 75 18 109/66 95 Room Air 02/02/17 20:23 36.6 71 16 107/66 95 Room Air 02/02/17 20:00 Room Air 02/02/17 19:15 36.7 61 16 116/73 93 Room Air 02/02/17 18:45 36.8 84 16 138/71 97 Nasal Cannula 2.0 02/02/17 18:34 94 Nasal Cannula 2.0 02/02/17 18:15 36.9 81 16 103/70 94 Nasal Cannula 2.0 02/02/17 18:15 94 Nasal Cannula 2.0 02/02/17 18:00 36.6 92 16 103/70 99 Nasal Cannula 2 02/02/17 17:50 36.6 82 16 89/67 98 Nasal Cannula 2 02/02/17 17:40 84 16 97/63 96 Nasal Cannula 2 02/02/17 17:30 91 16 94/78 98 Nasal Cannula 2 02/02/17 17:20 90 16 118/73 95 Nasal Cannula 2 02/02/17 17:10 117 16 133/110 98 Nasal Cannula 2 02/02/17 17:00 125 12 130/91 100 Nasal Cannula 2 02/02/17 16:50 111 12 132/106 100 Nasal Cannula 2 02/02/17 16:44 36.9 119 16 161/75 98 Nasal Cannula 2 02/02/17 13:28 36.9 52 18 157/94 100 Room Air 02/02/17 12:11 36.9 52 18 157/94 Room Air Laboratory Results 24 Hours: Test 02/02/17 13:12 02/03/17 06:30 Hematocrit 38.0 % 32.3 % Hemoglobin 13.2 g/dL 11.1 g/dL Prothromb Time International Ratio 3.6 2.8 Prothrombin Time 40.4 SECONDS 31.6 SECONDS Additional Notes: SPEC #: [id number] BEL: 02/02/17 STATUS: RES REQ #: [id number] RECD: 02/02/[address]: Yuri Fischer, D.O. SOURCE: DRAIN-DEEP ENTR: 02/02/[address]: Dharmesh Forde MD [facility]: Mehdi Long M.D. Oesterling, Brett, M.D. ORDERED: AER/ANDRES CULTSMR Procedure Result Verified Site GRAM STAIN Final 02/03/17 RESULT RARE POLYS MODERATE GRAM POSITIVE COCCI OR AER/ANDRES CULT Results Pending Assessment & Plan Assessment: POD #1 s/p Left lateral ankle irrigation and debridement including skin, fascia, muscle and tendon, with application Prevena drain Plan: NWB LLE Continue IV Vanco until final cultures. Retained hardware over the lateral malleolus so possible IV antibiotic therapy for ~2 weeks. Plan for d/c once cultures are finalized and antibiotic choices are made. Inhouse Planning Pain Management: Morphine, Oxy IR DVT Prophylaxis: Coumadin, ASA, other (Plavix) Discharge Planning Discharge Planning: uncertain (Possible home with home health for IV antibiotic tx--possibly 5.11.17 or 5.12.17.)
--- NOTE | 2017-02-03 14:45 | Progress Note ---
Subjective Date of Service: February 03, 2017. Subjective s/p OR, underwent washout of ankle, hardware/bone not exposed per op note, remain intact. tendon exposed. OR culture obtained, prelim with staph species. blood cultures pending. wbc improved to 9 today. placed on vanco post op. afebrile overnight. no overnight events. Problem List Medical Problems: (1) Lower extremity edema Status: Acute (2) Trimalleolar fracture of ankle, closed Status: Acute Objective Vital Signs Date Time Temp Pulse Resp B/P Pulse Ox O2 Delivery O2 Flow Rate FiO2 02/03/17 07:34 36.7 65 16 137/74 98 Room Air 02/03/17 03:16 36.6 69 16 113/71 97 Room Air 02/02/17 22:56 36.3 68 16 115/72 95 Room Air 02/02/17 21:44 36.8 75 18 109/66 95 Room Air 02/02/17 20:23 36.6 71 16 107/66 95 Room Air 02/02/17 20:00 Room Air 02/02/17 19:15 36.7 61 16 116/73 93 Room Air 02/02/17 18:45 36.8 84 16 138/71 97 Nasal Cannula 2.0 02/02/17 18:34 94 Nasal Cannula 2.0 02/02/17 18:15 36.9 81 16 103/70 94 Nasal Cannula 2.0 02/02/17 18:15 94 Nasal Cannula 2.0 02/02/17 18:00 36.6 92 16 103/70 99 Nasal Cannula 2 02/02/17 17:50 36.6 82 16 89/67 98 Nasal Cannula 2 02/02/17 17:40 84 16 97/63 96 Nasal Cannula 2 02/02/17 17:30 91 16 94/78 98 Nasal Cannula 2 02/02/17 17:20 90 16 118/73 95 Nasal Cannula 2 02/02/17 17:10 117 16 133/110 98 Nasal Cannula 2 02/02/17 17:00 125 12 130/91 100 Nasal Cannula 2 02/02/17 16:50 111 12 132/106 100 Nasal Cannula 2 02/02/17 16:44 36.9 119 16 161/75 98 Nasal Cannula 2 Laboratory Results Item Value Date Time Gram Stain - Final Resulted 02/02/17 8672 Drainage-Deep Ankle Left Last 24 Hours Test 02/03/17 06:30 White Blood Count 9.25 K/uL Red Blood Count 3.48 M/uL Hemoglobin 11.1 g/dL Hematocrit 32.3 % Mean Corpuscular Volume 92.8 fL Mean Corpuscular Hemoglobin 31.9 pg Mean Corpuscular Hemoglobin Concent 34.4 g/dl RDW Standard Deviation 53.5 fL RDW Coefficient of Variation 15.8 % Platelet Count 201 K/uL Mean Platelet Volume 10.9 fL Prothrombin Time 31.6 SECONDS Prothromb Time International Ratio 2.8 Sodium Level 133 mmol/L Potassium Level 4.3 mmol/L Chloride Level 100 mmol/L Carbon Dioxide Level 28 mmol/L Anion Gap 5.0 mmol/L Blood Urea Nitrogen 6 mg/dl Creatinine 0.70 mg/dl Est Creatinine Clear Calc Drug Dose 82.4 ml/min Estimated GFR () 111.5 Estimated GFR (Non- 96.2 BUN/Creatinine Ratio 8.0 Random Glucose 142 mg/dl Calcium Level 9.0 mg/dl Magnesium Level 2.3 mg/dl Assessment and Plan (1) Infection of prosthesis Assessment & Plan: continue vanco for now pending additional micro data/blood cultures. 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 final recs based on culture.
[2017-02-03 15:05] VITALS: BP 104/61; PULSE 83; TEMP 36.5; O2SAT 99
[2017-02-03 16:00] VITALS: O2SAT 99
--- NOTE | 2017-02-03 17:08 | Progress Note ---
Internal Med Progress Note Date of Service: February 03, 2017. Provider Documentation: SUBJECTIVE: Patient is seen and examined at bedside. Complains of left leg pain especially with ambulation. Denies chest pain, SOB, palpitations. Family at bedside. No other complaints. OBJECTIVE: Vital Signs-as noted below Physical Exam: General Appearance:Moderately built and nourished, no apparent distress Head: normocephalic, Atraumatic Eyes: normal inspection, EOMI, PERRL Neck: supple, Trachea midline Respiratory/Chest: Normal breath sounds, CTA Cardiovascular: S1, S2, No murmur Abdomen/GI:Soft, Non tender, Bowel sounds present Extremities/Musculoskelatal:Left leg in bandage Neurologic/Psych:AAOX3, grossly no focal neurological deficits Skin: normal color, warm Lab data as noted below. 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 PAROXYSMAL ATRIAL FIBRILLATION EKG shows NSR Continue sotalol INR is 3.6 >>>>2.8 Coumadin on hold for now Monitor INR HYPERTENSION Stable Continue amlodipine CHRONIC HYPONATREMIA Na is 133 Monitor PVD Continue Aspirin, Plavix, statin GERD Continue PPI DVT PX: INR therapeutic Plan to resume Coumadin when appropriate Vital Signs: Date Time Temp Pulse Resp B/P Pulse Ox O2 Delivery O2 Flow Rate FiO2 02/03/17 15:05 36.5 83 16 104/61 99 Room Air 02/03/17 08:05 Room Air 02/03/17 07:34 36.7 65 16 137/74 98 Room Air 02/03/17 03:16 36.6 69 16 113/71 97 Room Air 02/02/17 22:56 36.3 68 16 115/72 95 Room Air 02/02/17 21:44 36.8 75 18 109/66 95 Room Air 02/02/17 20:23 36.6 71 16 107/66 95 Room Air 02/02/17 20:00 Room Air 02/02/17 19:15 36.7 61 16 116/73 93 Room Air 02/02/17 18:45 36.8 84 16 138/71 97 Nasal Cannula 2.0 02/02/17 18:34 94 Nasal Cannula 2.0 02/02/17 18:15 36.9 81 16 103/70 94 Nasal Cannula 2.0 02/02/17 18:15 94 Nasal Cannula 2.0 02/02/17 18:00 36.6 92 16 103/70 99 Nasal Cannula 2 02/02/17 17:50 36.6 82 16 89/67 98 Nasal Cannula 2 02/02/17 17:40 84 16 97/63 96 Nasal Cannula 2 02/02/17 17:30 91 16 94/78 98 Nasal Cannula 2 Lab Results: Results Past 24 Hours Test 02/03/17 06:30 Range/Units White Blood Count 9.25 4.8-10.8 K/uL Red Blood Count 3.48 4.2-5.4 M/uL Hemoglobin 11.1 12.0-16.0 g/dL Hematocrit 32.3 37-47 % Mean Corpuscular Volume 92.8 80-100 fL Mean Corpuscular Hemoglobin 31.9 25-34 pg Mean Corpuscular Hemoglobin Concent 34.4 32-36 g/dl RDW Standard Deviation 53.5 36.4-46.3 fL RDW Coefficient of Variation 15.8 11.5-14.5 % Platelet Count 201 130-400 K/uL Mean Platelet Volume 10.9 7.4-10.4 fL Prothrombin Time 31.6 9.0-12.0 SECONDS Prothromb Time International Ratio 2.8 0.9-1.1 Sodium Level 133 136-145 mmol/L Potassium Level 4.3 3.5-5.1 mmol/L Chloride Level 100 98-107 mmol/L Carbon Dioxide Level 28 21-32 mmol/L Anion Gap 5.0 3-11 mmol/L Blood Urea Nitrogen 6 7-18 mg/dl Creatinine 0.70 0.60-1.20 mg/dl Est Creatinine Clear Calc Drug Dose 82.4 ml/min Estimated GFR () 111.5 Estimated GFR (Non- 96.2 BUN/Creatinine Ratio 8.0 10-20 Random Glucose 142 70-99 mg/dl Calcium Level 9.0 8.5-10.1 mg/dl Magnesium Level 2.3 1.8-2.4 mg/dl
[2017-02-03] MEDS: HYDROmorphone INJ 1 MG/ML SYR IV PRN ×2 (17:19→21:30)
[2017-02-03] MEDS ORDERED: VANCOMYCIN CONSULT ACTIVE PRN (17:30)
[2017-02-03] MEDS ORDERED: VANCOMYCIN INJ 1,800 MG in SODIUM CHLORIDE 0.9% 500ML 500 ML IV SCH (18:00)
[2017-02-03] MEDS: ATORVASTATIN 40 MG TAB PO SCH (21:28)
[2017-02-03] MEDS: RANITIDINE HCL 150 MG TAB PO SCH (21:29)
[2017-02-03] MEDS ORDERED: LORAZEPAM INJ 1 MG in SYRINGE 0.5 ML IV PRN (22:00)
--- NOTE | 2017-02-03 22:14 | Pharmacy Progress Note ---
Pharmacy Antibiotic Consult Date of Service: February 03, 2017. Pharmacy Dosing Scope Pharmacy is consulted to initiate Vancomycin IV dosing therapy for a left ankle prosthesis infection, order appropriate labs and adjust drug dose/frequency. Subjective The patient is a 57 year old female admitted on February 02, 2017 at 12:25. Objective Height (Feet): 5 Height (Inches): 2.00 Weight (Kilograms): 72.000 Lab Results (24hrs): Test 02/03/17 06:30 White Blood Count 9.25 K/uL (4.8-10.8) Red Blood Count 3.48 M/uL (4.2-5.4) Hemoglobin 11.1 g/dL (12.0-16.0) Hematocrit 32.3 % (37-47) Mean Corpuscular Volume 92.8 fL (80-100) Mean Corpuscular Hemoglobin 31.9 pg (25-34) Mean Corpuscular Hemoglobin Concent 34.4 g/dl (32-36) RDW Standard Deviation 53.5 fL (36.4-46.3) RDW Coefficient of Variation 15.8 % (11.5-14.5) Platelet Count 201 K/uL (130-400) Mean Platelet Volume 10.9 fL (7.4-10.4) Prothrombin Time 31.6 SECONDS (9.0-12.0) Prothromb Time International Ratio 2.8 (0.9-1.1) Sodium Level 133 mmol/L (136-145) Potassium Level 4.3 mmol/L (3.5-5.1) Chloride Level 100 mmol/L (98-107) Carbon Dioxide Level 28 mmol/L (21-32) Anion Gap 5.0 mmol/L (3-11) Blood Urea Nitrogen 6 mg/dl (7-18) Creatinine 0.70 mg/dl (0.60-1.20) Est Creatinine Clear Calc Drug Dose 82.4 ml/min Estimated GFR () 111.5 Estimated GFR (Non- 96.2 BUN/Creatinine Ratio 8.0 (10-20) Random Glucose 142 mg/dl (70-99) Calcium Level 9.0 mg/dl (8.5-10.1) Magnesium Level 2.3 mg/dl (1.8-2.4) Micro Results: Item Value Date Time Gram Stain - Final Resulted 02/02/17 1555 Drainage-Deep Ankle Left Staph sp. Blood Culture Received 02/02/17 1312 Blood Pending Blood Culture Received 02/02/17 1302 Blood Pending Recent Pertinent Medications Item Value Date Time Cefazolin Sodium 60 ml @ 100 mls/hr 02/02/17 1400 Cefazolin Sodium 60 ml @ 100 mls/hr 02/02/17 2200 2000 mg/Dextrose Q8H/IV Assessment & Plan Pharmacy has been consulted to dose and monitor Vancomycin for a left ankle prosthesis infection. Loading dose: Vancomycin 1800 mg (~25mg/kg) IV X 1 dose then: Vancomycin 1000 mg (~14mg/kg) IV every 12 hours. * Estimated P'kinetic levels: ke= 0.0728/hr, t1/2= 9.5 hrs * Goal trough level estimate: between 15 - 20 mcg/mL. * Trough level has been ordered for: ~30 minutes before the 0600 dose. Pharmacy will continue to follow and will adjust dose/frequency as necessary. Thank you
[2017-02-03 23:28] VITALS: BP 135/74; PULSE 71; TEMP 36.8; O2SAT 96
[2017-02-04] VITALS (7 sets, daily range): BP systolic 113–148; BP diastolic 68–75; PULSE 71–80; TEMP 36.5–36.8; O2SAT 96–98
[2017-02-04] MEDS: HYDROmorphone INJ 1 MG/ML SYR IV PRN (01:32)
[2017-02-04] MEDS: OXYCODONE HCL IR 5 MG TAB (IMMEDIATE RELEASE) PO PRN ×2 (05:26→10:51)
[2017-02-04] MEDS ORDERED: VANCOMYCIN INJ 1,000 MG in SODIUM CHLORIDE 0.9% 250ML 250 ML IV SCH (06:00)
[2017-02-04 07:19] LABS: BASO % 0.2 %; BASO ABS # 0.02 K/uL (0-0.2); COMPLETE YES; EOS % 2.6 %; HEMATOCRIT 29.7 % (37-47); IG% 0.2 %; LYMPH % 22.8 %; LYMPH ABS # 2.26 K/uL (1.2-3.4); MEAN CELL VOLUME 92.8 fL (80-100); MEAN CORPUSCULAR HEMOGLOBIN 30.9 pg (25-34); MEAN CORPUSCULAR HGB CONC 33.3 g/dl (32-36); MEAN PLATELET VOLUME 10.7 fL (7.4-10.4); MONO % 8.9 %; NEUT % 65.3 %; PLATELET COUNT 193 K/uL (130-400); WHITE BLOOD COUNT 9.93 K/uL (4.8-10.8)
[2017-02-04 07:29] LABS: INR 1.3 (0.9-1.1); PROTHROMBIN TIME (PATIENT) 14.2 SECONDS (9.0-12.0)
[2017-02-04 07:47] LABS: BUN/CREATININE RATIO 11.2 (10-20); CALCIUM 8.6 mg/dl (8.5-10.1); CREATININE 0.63 mg/dl (0.60-1.20); POTASSIUM 3.7 mmol/L (3.5-5.1)
[2017-02-04] MEDS: FLUOXETINE HCL 20 MG CAP PO SCH (09:00)
[2017-02-04] MEDS: CLOPIDOGREL BISULFATE 75 MG TAB PO SCH (09:12)
[2017-02-04] MEDS: ASPIRIN 81 MG ECTAB PO SCH (09:12)
[2017-02-04] MEDS: DOCUSATE SODIUM 100 MG CAP PO SCH ×2 (09:12→20:40)
[2017-02-04] MEDS: PANTOprazole SOD 40 MG TAB PO SCH (09:12)
[2017-02-04] MEDS: SOTALOL HCL 80 MG TAB PO SCH ×2 (09:13→20:40)
[2017-02-04] MEDS: AMLODIPINE BESYLATE 5 MG TAB PO SCH (09:13)
--- NOTE | 2017-02-04 13:08 | Orthopedic Progress Note ---
Orthopedic Progress Note Date of Service February 04, 2017. Subjective Post OP Day: 2 Reports: feeling well, Denies: SOB, chest pain, light headedness, nausea / vomiting, pain controlled w PO medications (States her pain is not controlled with the Oxy IR. Upset with the d/c of Dilaudid this AM.) Additional Notes: States she doesn't want the Prevena dressing because she is allergic to the adhesive on the wound vac. Once it malfunctioned earlier today, she did not let anyone put it back on. Objective calves soft nontender, N/V intact, dressing C/D/I, A&O x3, toes mobile Date Time Temp Pulse Resp B/P Pulse Ox O2 Delivery O2 Flow Rate FiO2 02/04/17 09:12 71 113/74 02/04/17 08:05 96 Room Air 02/04/17 08:02 36.5 71 14 124/75 96 Room Air 02/03/17 23:50 Room Air 02/03/17 23:28 36.8 71 16 135/74 96 Room Air 02/03/17 16:00 99 Room Air 02/03/17 15:05 36.5 83 16 104/61 99 Room Air Laboratory Results 24 Hours: Test 02/04/17 07:01 White Blood Count 9.93 K/uL Red Blood Count 3.20 M/uL Hemoglobin 9.9 g/dL Hematocrit 29.7 % Mean Corpuscular Volume 92.8 fL Mean Corpuscular Hemoglobin 30.9 pg Mean Corpuscular Hemoglobin Concent 33.3 g/dl Platelet Count 193 K/uL Mean Platelet Volume 10.7 fL Neutrophils (%) (Auto) 65.3 % Lymphocytes (%) (Auto) 22.8 % Monocytes (%) (Auto) 8.9 % Eosinophils (%) (Auto) 2.6 % Basophils (%) (Auto) 0.2 % Neutrophils # (Auto) 6.49 K/uL Lymphocytes # (Auto) 2.26 K/uL Monocytes # (Auto) 0.88 K/uL Eosinophils # (Auto) 0.26 K/uL Basophils # (Auto) 0.02 K/uL Prothromb Time International Ratio 1.3 Prothrombin Time 14.2 SECONDS Assessment & Plan Assessment: POD #2 s/p Left lateral ankle irrigation and debridement including skin, fascia, muscle and tendon, with application Prevena drain Plan: NWB LLE Continue IV Vanco until final cultures. Retained hardware over the lateral malleolus so possible IV antibiotic therapy for ~2 weeks. Plan for d/c once cultures are finalized and antibiotic choices are made. PICC line order placed--consent signed and on chart. Possible D/C tomorrow (02.05.17). Inhouse Planning Pain Management: Morphine, Oxy IR DVT Prophylaxis: Coumadin, ASA, other (Plavix) Discharge Planning Discharge Planning: uncertain (Possible home with home health for IV antibiotic tx--possibly 02.04.17 or 02.05.17.)
[2017-02-04] MEDS: OXYCODONE/ACETAMINOPHEN 5-325 TAB PO PRN ×3 (14:01→21:53)
--- NOTE | 2017-02-04 14:19 | DIAGNOSTIC IMAGING REPORT ---
CHEST ONE VIEW PORTABLE CLINICAL HISTORY: pic placement to right arm tube position COMPARISON STUDY: 12/14/2016 FINDINGS: PICC placement from a right-sided approach. Tip is coiled in the superior vena cava with the tip seen in a retrograde fashion involving the left subclavian vein. IMPRESSION: Tube coiled within the superior vena cava with the tip in the medial left subclavian vein. This should be pulled back and readvanced. No evidence pneumothorax. Electronically signed by: Santos Mckenzie M.D. 02/04/2017 2:17 PM Dictated Date/Time: 02/04/2017 2:16 PM
--- NOTE | 2017-02-04 15:18 | Progress Note ---
Subjective Date of Service: February 04, 2017. Subjective Pt evaluation today including: conversation w/ patient, physical exam, chart review, lab review pt seen in follow up, s/p washout, pain controlled, no f/c. no drainage. for d/ c in am for continued IV abx. complains pain in ankle. no abd pain, no n/v/d. no overnight events. tolerating abx. wbc improved. all remaining ros reviewed and are negative. Problem List Medical Problems: (1) Lower extremity edema Status: Acute (2) Trimalleolar fracture of ankle, closed Status: Acute Objective Vital Signs Date Time Temp Pulse Resp B/P Pulse Ox O2 Delivery O2 Flow Rate FiO2 02/04/17 09:12 71 113/74 02/04/17 08:05 96 Room Air 02/04/17 08:02 36.5 71 14 124/75 96 Room Air 02/04/17 07:45 Room Air 02/03/17 23:50 Room Air 02/03/17 23:28 36.8 71 16 135/74 96 Room Air 02/03/17 16:00 99 Room Air Physical Exam General Appearance: WD/WN, no apparent distress Eyes: normal inspection, EOMI Neck: supple Respiratory/Chest: lungs clear, normal breath sounds, no respiratory distress Cardiovascular: regular rate, rhythm, no edema Abdomen: soft Extremities: non-tender, normal inspection, no pedal edema Neurologic/Psychiatric: alert, oriented x 3 Skin: normal color Comments: dressing c//i Laboratory Results Item Value Date Time Gram Stain - Final Resulted 02/02/17 1555 Drainage-Deep Ankle Left Blood Culture - Preliminary Resulted 02/02/17 1312 Blood NO GROWTH TO DATE. Blood Culture - Preliminary Resulted 02/02/17 1302 Blood NO GROWTH TO DATE. Last 24 Hours Test 02/04/17 07:01 White Blood Count 9.93 K/uL Red Blood Count 3.20 M/uL Hemoglobin 9.9 g/dL Hematocrit 29.7 % Mean Corpuscular Volume 92.8 fL Mean Corpuscular Hemoglobin 30.9 pg Mean Corpuscular Hemoglobin Concent 33.3 g/dl Platelet Count 193 K/uL Mean Platelet Volume 10.7 fL Neutrophils (%) (Auto) 65.3 % Lymphocytes (%) (Auto) 22.8 % Monocytes (%) (Auto) 8.9 % Eosinophils (%) (Auto) 2.6 % Basophils (%) (Auto) 0.2 % Neutrophils # (Auto) 6.49 K/uL Lymphocytes # (Auto) 2.26 K/uL Monocytes # (Auto) 0.88 K/uL Eosinophils # (Auto) 0.26 K/uL Basophils # (Auto) 0.02 K/uL RDW Standard Deviation 53.6 fL RDW Coefficient of Variation 15.6 % Immature Granulocyte % (Auto) 0.2 % Immature Granulocyte # (Auto) 0.02 K/uL Prothrombin Time 14.2 SECONDS Prothromb Time International Ratio 1.3 Sodium Level 134 mmol/L Potassium Level 3.7 mmol/L Chloride Level 102 mmol/L Carbon Dioxide Level 29 mmol/L Anion Gap 3.0 mmol/L Blood Urea Nitrogen 7 mg/dl Creatinine 0.63 mg/dl Est Creatinine Clear Calc Drug Dose 91.6 ml/min Estimated GFR () 115.4 Estimated GFR (Non- 99.6 BUN/Creatinine Ratio 11.2 Random Glucose 77 mg/dl Calcium Level 8.6 mg/dl Assessment and Plan (1) Infection of prosthesis Assessment & Plan: will change to ctx 2g daily, will need 6 weeks from date of OR, tentative stop 03/16. will need weekly cbc, cmp, esr while on therapy. ok for d/c when outpt abx in place. will follow post /c
--- NOTE | 2017-02-04 15:30 | DIAGNOSTIC IMAGING REPORT ---
CHEST ONE VIEW PORTABLE CLINICAL HISTORY: pic adjustment COMPARISON STUDY: Prior study same date FINDINGS: PICC catheter is in good position within the superior vena cava. No evidence of pneumothorax. IMPRESSION: PICC catheter is in good position within the superior vena cava. No evidence of pneumothorax. Electronically signed by: Santos Mckenzie M.D. 02/04/2017 3:29 PM Dictated Date/Time: 02/04/2017 3:28 PM
[2017-02-04] MEDS: D5W AND 1/2NSS 1,000 ML IV SCH (15:32)
--- NOTE | 2017-02-04 15:59 | Progress Note ---
Internal Med Progress Note Date of Service: February 04, 2017. Provider Documentation: SUBJECTIVE: Patient is seen and examined at bedside. States left leg pain is controlled but believes it is draining. Dressing looks dry. Denies chest pain, SOB, palpitations. Family at bedside. No other complaints. OBJECTIVE: Vital Signs-as noted below Physical Exam: General Appearance:Moderately built and nourished, no apparent distress Head: normocephalic, Atraumatic Eyes: normal inspection, EOMI, PERRL Neck: supple, Trachea midline Respiratory/Chest: Normal breath sounds, CTA Cardiovascular: S1, S2, No murmur Abdomen/GI:Soft, Non tender, Bowel sounds present Extremities/Musculoskelatal:Left leg in bandage Neurologic/Psych:AAOX3, grossly no focal neurological deficits Skin: normal color, warm Lab data as noted below. ASSESSMENT & PLAN: LEFT ANKLE INCISION INFECTION S/p ORIF left ankle 12/18/16 POD #2 S/P L lateral ankle irrigation and debridement Orthopedics on board Wound culture: Staph aureus Leukocytosis resolved Blood cultures: No growth to date S/P IV Vancomycin >>>> IV Ceftriaxone per ID Appreciate ID input S/P PICC line placement today for custodial antibiotic course PAROXYSMAL ATRIAL FIBRILLATION EKG shows NSR Continue sotalol INR is 3.6 >>>>2.8 >>>1.3 today Will resume Coumadin today: discussed with Ortho on 02/04/17 Monitor INR HYPERTENSION Stable Continue amlodipine CHRONIC HYPONATREMIA Na is 134 Monitor PVD Continue Aspirin, Plavix, statin GERD Continue PPI DVT PX: On Coumadin Vital Signs: Date Time Temp Pulse Resp B/P Pulse Ox O2 Delivery O2 Flow Rate FiO2 02/04/17 15:26 36.8 71 16 128/71 96 Room Air 02/04/17 09:12 71 113/74 02/04/17 08:05 96 Room Air 02/04/17 08:02 36.5 71 14 124/75 96 Room Air 02/04/17 07:45 Room Air 02/03/17 23:50 Room Air 02/03/17 23:28 36.8 71 16 135/74 96 Room Air Lab Results: Results Past 24 Hours Test 02/04/17 07:01 Range/Units White Blood Count 9.93 4.8-10.8 K/uL Red Blood Count 3.20 4.2-5.4 M/uL Hemoglobin 9.9 12.0-16.0 g/dL Hematocrit 29.7 37-47 % Mean Corpuscular Volume 92.8 80-100 fL Mean Corpuscular Hemoglobin 30.9 25-34 pg Mean Corpuscular Hemoglobin Concent 33.3 32-36 g/dl Platelet Count 193 130-400 K/uL Mean Platelet Volume 10.7 7.4-10.4 fL Neutrophils (%) (Auto) 65.3 % Lymphocytes (%) (Auto) 22.8 % Monocytes (%) (Auto) 8.9 % Eosinophils (%) (Auto) 2.6 % Basophils (%) (Auto) 0.2 % Neutrophils # (Auto) 6.49 1.4-6.5 K/uL Lymphocytes # (Auto) 2.26 1.2-3.4 K/uL Monocytes # (Auto) 0.88 0.11-0.59 K/uL Eosinophils # (Auto) 0.26 0-0.5 K/uL Basophils # (Auto) 0.02 0-0.2 K/uL RDW Standard Deviation 53.6 36.4-46.3 fL RDW Coefficient of Variation 15.6 11.5-14.5 % Immature Granulocyte % (Auto) 0.2 % Immature Granulocyte # (Auto) 0.02 0.00-0.02 K/uL Prothrombin Time 14.2 9.0-12.0 SECONDS Prothromb Time International Ratio 1.3 0.9-1.1 Sodium Level 134 136-145 mmol/L Potassium Level 3.7 3.5-5.1 mmol/L Chloride Level 102 98-107 mmol/L Carbon Dioxide Level 29 21-32 mmol/L Anion Gap 3.0 3-11 mmol/L Blood Urea Nitrogen 7 7-18 mg/dl Creatinine 0.63 0.60-1.20 mg/dl Est Creatinine Clear Calc Drug Dose 91.6 ml/min Estimated GFR () 115.4 Estimated GFR (Non- 99.6 BUN/Creatinine Ratio 11.2 10-20 Random Glucose 77 70-99 mg/dl Calcium Level 8.6 8.5-10.1 mg/dl
[2017-02-04] MEDS: CEFTRIAXONE SOD INJ 2,000 MG in DEXTROSE 5% 50ML 50 ML IV SCH (16:16)
[2017-02-04] MEDS ORDERED: WARFARIN SOD 5 MG TAB PO ONE (16:30)
[2017-02-04] MEDS: ATORVASTATIN 40 MG TAB PO SCH (20:40)
[2017-02-04] MEDS: RANITIDINE HCL 150 MG TAB PO SCH (20:40)
[2017-02-05] MEDS: OXYCODONE/ACETAMINOPHEN 5-325 TAB PO PRN ×3 (01:58→10:39)
[2017-02-05] MEDS ORDERED: VANCOMYCIN TROUGH SCH (05:30)
[2017-02-05] MEDS: D5W AND 1/2NSS 1,000 ML IV SCH ×2 (05:39→19:35)
[2017-02-05 06:34] LABS: INR 1.1 (0.9-1.1); PROTHROMBIN TIME (PATIENT) 11.7 SECONDS (9.0-12.0)
[2017-02-05 07:04] LABS: CREATININE 0.52 mg/dl (0.60-1.20)
[2017-02-05 07:11] VITALS: BP 135/80; PULSE 67; TEMP 36.4; O2SAT 98
[2017-02-05] MEDS: ASPIRIN 81 MG ECTAB PO SCH (09:05)
[2017-02-05] MEDS: CLOPIDOGREL BISULFATE 75 MG TAB PO SCH (09:05)
[2017-02-05] MEDS: AMLODIPINE BESYLATE 5 MG TAB PO SCH (09:05)
[2017-02-05] MEDS: DOCUSATE SODIUM 100 MG CAP PO SCH ×2 (09:06→21:28)
[2017-02-05] MEDS: PANTOprazole SOD 40 MG TAB PO SCH (09:06)
[2017-02-05] MEDS: SOTALOL HCL 80 MG TAB PO SCH ×2 (09:06→21:27)
[2017-02-05] MEDS: FLUOXETINE HCL 20 MG CAP PO SCH (09:07)
[2017-02-05 15:22] VITALS: BP 147/88; PULSE 77; TEMP 36.8; O2SAT 98
[2017-02-05] MEDS: CEFTRIAXONE SOD INJ 2,000 MG in DEXTROSE 5% 50ML 50 ML IV SCH (16:02)
--- NOTE | 2017-02-05 16:13 | Progress Note ---
Internal Med Progress Note Date of Service: February 05, 2017. Provider Documentation: SUBJECTIVE: Patient is seen and examined at bedside. Complains of left leg pain at surgical site. Denies chest pain, SOB, palpitations. Family at bedside. No other complaints. OBJECTIVE: Vital Signs-as noted below Physical Exam: General Appearance:Moderately built and nourished, no apparent distress Head: normocephalic, Atraumatic Eyes: normal inspection, EOMI, PERRL Neck: supple, Trachea midline Respiratory/Chest: Normal breath sounds, CTA Cardiovascular: S1, S2, No murmur Abdomen/GI:Soft, Non tender, Bowel sounds present Extremities/Musculoskelatal:Left leg in bandage Neurologic/Psych:AAOX3, grossly no focal neurological deficits Skin: normal color, warm Lab data as noted below. ASSESSMENT & PLAN: LEFT ANKLE INCISION INFECTION S/p ORIF left ankle 12/18/16 POD #3 S/P L lateral ankle irrigation and debridement Orthopedics on board Wound culture: Staph aureus Leukocytosis resolved Blood cultures: No growth to date S/P IV Vancomycin >>>> IV Ceftriaxone per ID: Tentative stop date is 03/16/17 Appreciate ID input S/P PICC line placement today for snf antibiotic course PAROXYSMAL ATRIAL FIBRILLATION EKG shows NSR Continue sotalol INR is 3.6 >>>>2.8 >>>1.3 >>>1.1 Will give 7.5mg Coumadin today Monitor INR HYPERTENSION Stable Continue amlodipine CHRONIC HYPONATREMIA Na is 134 Monitor PVD Continue Aspirin, Plavix, statin GERD Continue PPI DVT PX: On Coumadin Vital Signs: Date Time Temp Pulse Resp B/P Pulse Ox O2 Delivery O2 Flow Rate FiO2 02/05/17 15:22 36.8 77 18 147/88 98 Room Air 02/05/17 07:55 Room Air 02/05/17 07:11 36.4 67 17 135/80 98 Room Air 02/05/17 02:00 Room Air 02/04/17 23:13 36.7 80 16 148/71 97 Room Air 02/04/17 20:40 71 120/68 98 Room Air Lab Results: Results Past 24 Hours Test 02/05/17 05:40 Range/Units Prothrombin Time 11.7 9.0-12.0 SECONDS Prothromb Time International Ratio 1.1 0.9-1.1 Creatinine 0.52 0.60-1.20 mg/dl Est Creatinine Clear Calc Drug Dose 110.9 ml/min Estimated GFR () 122.9 Estimated GFR (Non- 106.1
[2017-02-05] MEDS ORDERED: HYDROmorphone INJ 1 MG/ML SYR IV ONE (17:00)
[2017-02-05] MEDS ORDERED: WARFARIN SOD 7.5 MG TAB PO ONE (17:00)
--- NOTE | 2017-02-05 18:09 | Orthopedic Progress Note ---
Orthopedic Progress Note Date of Service February 05, 2017. Subjective Post OP Day: 3 Reports: feeling well, Denies: SOB, calf pain, chest pain, light headedness, nausea / vomiting, pain controlled w PO medications Additional Notes: pain level 5/10 currently Objective calves soft nontender, N/V intact, splint C/D/I, capillary refill less than 2 sec., A&O x3, toes mobile Date Time Temp Pulse Resp B/P Pulse Ox O2 Delivery O2 Flow Rate FiO2 02/05/17 15:22 36.8 77 18 147/88 98 Room Air 02/05/17 07:55 Room Air 02/05/17 07:11 36.4 67 17 135/80 98 Room Air 02/05/17 02:00 Room Air 02/04/17 23:13 36.7 80 16 148/71 97 Room Air 02/04/17 20:40 71 120/68 98 Room Air Laboratory Results 24 Hours: Test 02/05/17 05:40 Prothromb Time International Ratio 1.1 Prothrombin Time 11.7 SECONDS Assessment & Plan Assessment: POD #3 s/p Left lateral ankle irrigation and debridement including skin, fascia, muscle and tendon Plan: NWB LLE Retained hardware over the lateral malleolus so possible IV antibiotic therapy for ~2 weeks. will keep on rocephin daily x 6 weeks, need weekly lab draws having increased pain this evening, will keep overnight for poss d/c tomorrow (1) Infection of prosthesis Discharge Planning Discharge Planning: home with home health
--- NOTE | 2017-02-05 18:18 | Discharge Instructions ---
Discharge Instructions Date of Service February 05, 2017. Admission Reason for Admission: Septic L Ankle, Draining Discharge Discharge Diagnosis / Problem: septic left ankle Discharge Goals Goal(s): Decrease discomfort, Improve function, Increase independence Activity Recommendations Activity Limitations: as noted below Weightbearing Status: Left non-weightbearing . Instructions / Follow-Up Instructions / Follow-Up ACTIVITY RECOMMENDATIONS: * Remain non-weightbearing left ankle SPECIAL CARE INSTRUCTIONS: * Some drainage onto the dressing is normal and is no cause for alarm. * Some swelling is natural especially after walking. When resting, keep your foot elevated above the level of your heart. * Call the doctor's office at if you notice increased drainage, fever over 101 degrees F. or severe constant pain. BANDAGE: * Leave bandage/cast in place unless otherwise directed. * Keep bandage/cast dry at all times. FOLLOW UP VISIT: If appointment is not already scheduled: Please call [facility] to make a follow-up appointment after your surgery at . Current Hospital Diet Patient's current hospital diet: AHA Diet (Heart Healthy) Discharge Diet Recommended Diet: AHA Diet (Heart Healthy) Procedures Procedures Performed: Left ankle irrigation and debridement inculding skin, fascia, muscle and tendon. Pending Studies Studies pending at discharge: no Medical Emergencies . Who to Call and When: Medical Emergencies: If at any time you feel your situation is an emergency, please call [phone] immediately. . Non-Emergent Contact Non-Emergency issues call your: Primary Care Provider, Surgeon . "Provider Documentation" section prepared by Santos Hernandes. . 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 will need weekly cbc, cmp, esr while on therapy. ok for d/c when outpt abx in place. VTE Core Measure Inpt VTE Proph given/why not?: Treatment not indicated [place] Drug Monitoring Program Search Results: patient reviewed within database, no issues identified
[2017-02-05] MEDS ORDERED: OXYSR10 PO (18:23)
[2017-02-05] MEDS ORDERED: CEFT1INJ26 IV (18:23)
[2017-02-05] MEDS ORDERED: RXC5 PO (18:23)
[2017-02-05] MEDS: OXYCODONE HCL 10 MG TABCR (OXYCONTIN) PO SCH (19:34)
[2017-02-05] MEDS: HYDROmorphone INJ 1 MG/ML SYR IV PRN (20:53)
[2017-02-05 21:18] VITALS: BP 157/84; PULSE 77; TEMP 36.8; O2SAT 98
[2017-02-05] MEDS: ATORVASTATIN 40 MG TAB PO SCH (21:28)
[2017-02-05] MEDS: RANITIDINE HCL 150 MG TAB PO SCH (21:28)
[2017-02-05 21:31] VITALS: BP 152/71; PULSE 84
[2017-02-06] MEDS: HYDROmorphone INJ 1 MG/ML SYR IV PRN ×3 (00:13→10:35)
[2017-02-06 00:54] VITALS: BP 169/99; PULSE 79; TEMP 36.7; O2SAT 97
[2017-02-06] MEDS: OXYCODONE HCL IR 5 MG TAB (IMMEDIATE RELEASE) PO PRN ×2 (02:42→08:46)
[2017-02-06] MEDS: OXYCODONE HCL 10 MG TABCR (OXYCONTIN) PO SCH (05:56)
[2017-02-06 07:14] VITALS: BP 149/87; PULSE 72; TEMP 36.8; O2SAT 98
--- NOTE | 2017-02-06 08:04 | Orthopedic Progress Note ---
Orthopedic Progress Note Date of Service February 06, 2017. Subjective Post OP Day: 4 Reports: feeling well, pain controlled w PO medications, Denies: SOB, calf pain , chest pain, light headedness, nausea / vomiting Additional Notes: feels dressing is too tight Objective N/V intact, splint C/D/I, dressing C/D/I, A&O x3, toes mobile Date Time Temp Pulse Resp B/P Pulse Ox O2 Delivery O2 Flow Rate FiO2 02/06/17 07:14 36.8 72 19 149/87 98 Room Air 02/06/17 00:54 36.7 79 18 169/99 97 Room Air 02/06/17 00:05 Room Air 02/05/17 21:31 84 152/71 02/05/17 21:18 36.8 77 20 157/84 98 Room Air 02/05/17 16:00 Room Air 02/05/17 15:22 36.8 77 18 147/88 98 Room Air Laboratory Results 24 Hours: Test 02/06/17 04:44 Assessment & Plan Assessment: POD #4 s/p Left lateral ankle irrigation and debridement including skin, fascia, muscle and tendon Plan: NWB LLE Retained hardware over the lateral malleolus will keep on rocephin daily x 6 weeks, need weekly lab draws pain better controlled on new regimen, dressing changed today by myself, feels her discomfort is improved. will d/c later today (1) Infection of prosthesis Discharge Planning Discharge Planning: home with home health
[2017-02-06] MEDS: AMLODIPINE BESYLATE 5 MG TAB PO SCH (08:35)
[2017-02-06] MEDS: ASPIRIN 81 MG ECTAB PO SCH (08:35)
[2017-02-06] MEDS: SOTALOL HCL 80 MG TAB PO SCH (08:36)
[2017-02-06] MEDS: PANTOprazole SOD 40 MG TAB PO SCH (08:37)
[2017-02-06] MEDS: CLOPIDOGREL BISULFATE 75 MG TAB PO SCH (08:37)
[2017-02-06] MEDS: FLUOXETINE HCL 20 MG CAP PO SCH (08:37)
[2017-02-06] MEDS: DOCUSATE SODIUM 100 MG CAP PO SCH (08:38)
[2017-02-06 09:46] LABS: HEMATOCRIT 29.9 % (37-47)
[2017-02-06 09:53] LABS: INR 1.1 (0.9-1.1); PROTHROMBIN TIME (PATIENT) 11.8 SECONDS (9.0-12.0)
[2017-02-06 10:19] LABS: CREATININE 0.55 mg/dl (0.60-1.20)
[2017-02-06 10:51] VITALS: BP 149/87; PULSE 72; TEMP 36.8; O2SAT 98
[2017-02-06] MEDS ORDERED: WARFARIN SOD 5 MG TAB PO SCH (16:00)
[2017-02-08] MEDS ORDERED: WARFARIN SOD 7.5 MG TAB PO SCH (16:00)
--- NOTE | 2017-02-10 09:27 | Discharge Summary ---
Orthopedic Discharge Summary Admission Date/Reason February 02, 2017 at 12:25 Septic L Ankle, Draining. Discharge Date/Disposition February 06, 2017 Home with services Diagnosis Principal Diagnosis: left ankle wound dehiscence and infection Procedure(s) Performed : Left lateral ankle irrigation and debridement including skin, fascia, muscle and tendon, with application Prevena drain Consultations Medicine Infectious disease Medication Reconciliation New Medications: Ceftriaxone Sodium (Rocephin) 1 Gm Inj 2 GM IV DAILY @1600 for 42 Days, #84 GM Oxycodone HCl (Oxycontin) 10 Mg Tabcr 10 MG PO Q12H, #20 TAB Oxycodone HCl (Oxycodone HCl) 5 Mg Tab 5-10 MG PO Q6 PRN for Pain, #60 TAB Continued Medications: Aspirin (Aspirin Ec) 81 Mg Tab 81 MG PO DAILY Atorvastatin (Lipitor) 80 Mg Tab 80 MG PO HS, TAB Clopidogrel (Plavix) 75 Mg Tab 75 MG PO DAILY, TAB Fluoxetine (Prozac) 20 Mg Cap 20 MG PO DAILY, CAP Pantoprazole (Protonix) 40 Mg Tab 40 MG PO DAILY, #30 TAB Ranitidine (Zantac) 300 Mg Tab 300 MG PO HS, TAB Sotalol HCl (Sotalol HCl) 80 Mg Tab 80 MG PO BID for 30 Days, #60 TAB Trazodone Hcl (Trazodone) 50 Mg Tab 50 MG PO HS PRN for Insomnia, TAB Warfarin Sodium (Warfarin Sodium) 5 Mg Tab 5 MG PO 4XWK @ 1600 for 90 Days, TAB 3 Refills TAKES SUN, TUES, THURS, AND SAT. Warfarin Sodium (Warfarin Sodium) 7.5 Mg Tab 7.5 MG PO 3XWK @ 1600, TAB TAKES MON, WED, FRI. Discontinued Medications: Oxycodone HCl (Oxycodone HCl) 5 Mg Tab 5-10 MG PO Q4HWA PRN for Pain for 5 Days, #50 TAB Admission Physical Exam As per Admitting History & Physical. Hospital Course The patient was admitted from our U office for direct admission for surgical I & D later on the admission day. On POD #1, the patient was doing well and pain control and awaiting culture results were the goals. On POD #2, the patient 's Prevena dressing malfunctioned and she would not allow another one to be placed. She stated she was allergic to the adhesive and had problems with a previous wound vac. The dressing was the replaced with an adaptic, gauze and gauze wrap dressing. On POD #3 and 4, pain control was her main goal. A PICC line was placed and the patient was then d/c'd home with IV antibiotic treatment for 6 weeks. Discharge Instructions Please refer to the electronic Patient Visit Report (Discharge Instructions) for additional information. Discharge Goals Goal(s): Decrease discomfort, Improve function, Increase independence Activity Recommendations Activity Limitations: as noted below Weightbearing Status: Left non-weightbearing . Instructions / Follow-Up Instructions / Follow-Up ACTIVITY RECOMMENDATIONS: * Remain non-weightbearing left ankle SPECIAL CARE INSTRUCTIONS: * Some drainage onto the dressing is normal and is no cause for alarm. * Some swelling is natural especially after walking. When resting, keep your foot elevated above the level of your heart. * Call the doctor's office at if you notice increased drainage, fever over 101 degrees F. or severe constant pain. BANDAGE: * Leave bandage/cast in place unless otherwise directed. * Keep bandage/cast dry at all times. FOLLOW UP VISIT: If appointment is not already scheduled: Please call [facility] to make a follow-up appointment after your surgery at . Current Hospital Diet Patient's current hospital diet: AHA Diet (Heart Healthy) Discharge Diet Recommended Diet: AHA Diet (Heart Healthy)
[2017-03-22] MEDS ORDERED: AMLO-114 PO (13:11)
[2017-03-22] MEDS ORDERED: BUPR-79 PO (13:11)
[2017-03-22] MEDS ORDERED: ONDA8TAB6 PO (13:11)
[2017-03-22] MEDS ORDERED: FNTTP50 TD (13:11)
[2017-04-16] MEDS ORDERED: augmentin PO (14:02)
[2017-05-21] MEDS ORDERED: WARF5TAB7 PO (11:51)
[2017-08-24] MEDS ORDERED: GABA1CAP4 PO ×2 (15:32→15:40)
[2017-08-24] MEDS ORDERED: CRD200 PO (15:40)
[2017-08-24] MEDS ORDERED: OXYC20TA32 PO (15:40)
[2017-08-24] MEDS ORDERED: METO25TA56 PO (15:40)
== END 2017-02-06 12:42 | disposition home health service (06) | DRG 988 ==
LOC: C.MSW 11:37 → OBSVTOIN 12:25
PROVIDERS: ADMIT Orthopaedic Surgery Sports Medicine; ATTEND Orthopaedic Surgery Sports Medicine
PROC: 0KBT0ZX Excision of Left Lower Leg Muscle, Open Approach, Diagnostic (ICD-10-PCS; principal; 2017-02-02 09:30)
PROC: 02HV33Z Insertion of Infusion Device into Superior Vena Cava, Percutaneous Approach (ICD-10-PCS; 2017-02-04)
DX: M96.89 Other intraoperative and postprocedural complications and disorders of the musculoskeletal system (principal); M00.872 Arthritis due to other bacteria, left ankle and foot; E87.1 Hypo-osmolality and hyponatremia; L03.116 Cellulitis of left lower limb; T84.69XA Infection and inflammatory reaction due to internal fixation device of other site, initial encounter; S82.851D Displaced trimalleolar fracture of right lower leg, subsequent encounter for closed fracture with routine healing; I49.5 Sick sinus syndrome; I10 Essential (primary) hypertension; B95.61 Methicillin susceptible Staphylococcus aureus infection as the cause of diseases classified elsewhere; K21.9 Gastro-esophageal reflux disease without esophagitis; I73.9 Peripheral vascular disease, unspecified; F17.210 Nicotine dependence, cigarettes, uncomplicated; F32.9 Major depressive disorder, single episode, unspecified; I48.0 Paroxysmal atrial fibrillation; Y79.2 Prosthetic and other implants, materials and accessory orthopedic devices associated with adverse incidents; Y92.009 Unspecified place in unspecified non-institutional (private) residence as the place of occurrence of the external cause; Z79.01 Long term (current) use of anticoagulants; X58.XXXD Exposure to other specified factors, subsequent encounter

== ENCOUNTER 2017-03-26 12:43 | Inpatient (IN) | payer BC ==
[2017-03-26] VITALS (8 sets, daily range): BP systolic 114–127; BP diastolic 76–85; PULSE 75–103; TEMP 36.6–36.9; O2SAT 95–99; Ht 160 cm; Wt 71.8 kg
[~2017-03-26] VITALS: Ht 160 cm; Wt 71.8 kg
--- NOTE | 2017-03-26 11:18 | History and Physical ---
History & Physical Date Mar 26, 2017. Chief Complaint left ankle wound History of Present Illness The patient is a 57 year old female with complaints of nonhealing wound of the left lateral ankle s/p ORIF of a bimalleolar ankle fx and s/p I & D of the ankle x 2. She presented yesterday to our [facility] clinic with worsening wound symptoms. She is now being set up for another I & D. Past Medical/Surgical History Medical Problems: (1) Ankle fracture, bimalleolar, closed (2) Chest pain (3) Depression (4) Dyslipidemia (5) History of blood clots (6) HTN (hypertension) (7) Infection of prosthesis (8) Paroxysmal atrial fibrillation (9) PVD (peripheral vascular disease) (10) SOB (shortness of breath) (11) Surgical wound infection Surgical Problems: (1) H/O vascular surgery (2) History of appendectomy (3) Status post ORIF of fracture of ankle Allergies Coded Allergies: Adhesives (Verified Allergy, Mild, 12/13/16) Guanfacine (Verified Allergy, Unknown, 12/13/16) Nifedipine (Verified Allergy, Unknown, 12/13/16) Home Medications Scheduled Amlodipine (Norvasc), 10 MG PO DAILY Aspirin (Aspirin Ec), 81 MG PO DAILY Atorvastatin (Lipitor), 80 MG PO HS Bupropion (Wellbutrin Sr), 150 MG PO DAILY Clopidogrel (Plavix), 75 MG PO DAILY Fentanyl (Duragesic), 50 MCG TD [id number] Fluoxetine (Prozac), 20 MG PO DAILY Oxycodone HCl (Oxycontin), 10 MG PO Q12H Pantoprazole (Protonix), 40 MG PO DAILY Ranitidine (Zantac), 300 MG PO HS Sotalol HCl (Sotalol HCl), 80 MG PO BID Warfarin Sodium (Warfarin Sodium), 5 MG PO 4XWK @ 1600 Warfarin Sodium (Warfarin Sodium), 7.5 MG PO 3XWK @ 1600 Scheduled PRN Ondansetron Hcl (Zofran), 8 MG PO for Nausea Oxycodone HCl (Oxycodone HCl), 5-10 MG PO Q6 PRN for Pain Physical Examination Skin: warm/dry, no rash, + pertinent finding (Nonhealing lateral left ankle wound) Head: normocephalic, atraumatic Neck: supple Respiratory/Chest: lungs clear, normal breath sounds, no respiratory distress Cardiovascular: regular rate, rhythm, no murmur Abdomen / GI: normal bowel sounds, non tender Neurologic/Psych: no motor/sensory deficits, alert, oriented x 3 Addiitonal Comments: She is NWB on the LLE in a walking boot. The lateral ankle wound is ulcerated at the entire length of the lateral malleolus incision. There is yellow slough throughout the ulceration. Mild erythema around the wound. No streaking. NV intact LLE. Diagnosis Left ankle Non healing surgical wound Plan of Treatment Recommend an I & D of the left lateral ankle wound. All potential risks, benefits, complications, alternatives, and rehab have been discussed with the patient. She wishes to proceed. She will be scheduled for later today, 03.26.17.
[~2017-03-26 12:43] MED LIST changes: +AMLO-114 PO; +BUPR-79 PO; +CEFAZOLIN 1000MG/55 ML D5W IV SCH; -CLON0.1T12 PO; -DXY100 PO; +FNTTP50 TD; -LVNIS40 SQ; +ONDA8TAB6 PO; +OXYSR10 PO; -TRAZ50TA35 PO
[2017-03-26] MEDS ORDERED: ONDANSETRON INJ 2 MG/ML 2 ML VIAL ONE (15:30)
[2017-03-26] MEDS ORDERED: PROPOFOL IV EMULSION 10 MG/ML 20 ML VIAL IV ONE (15:30)
[2017-03-26] MEDS ORDERED: MIDAZOLAM HCL 1 MG/ML 2ML VIAL ONE (15:30)
[2017-03-26] MEDS ORDERED: LIDOCAINE HCL 2% 2 ML VIAL (20MG/ML) ONE (15:30)
[2017-03-26] MEDS ORDERED: FENTANYL CITRATE INJ 50 MCG/1 ML 2 ML VIAL ONE ×3 (15:30→18:26)
[2017-03-26] MEDS ORDERED: DEXAMETHASONE SOD INJ 4 MG/ML VIAL ONE (15:30)
[2017-03-26] MEDS ORDERED: KETOROLAC TROMETHAMINE 30 MG/ML VIAL ONE (16:18)
[2017-03-26] MEDS ORDERED: KETOROLAC TROMETHAMINE 30 MG/ML VIAL IV STA (16:21)
[2017-03-26] MEDS ORDERED: ALBUT/IPRATROP 3MG/0.5MG NEB 3 ML VIAL INH ONE (16:30)
[2017-03-26] MEDS ORDERED: EpHEDrine SULFATE INJ 50 MG/ML AMP IV PRN (16:30)
[2017-03-26] MEDS ORDERED: ATROPINE SULFATE 0.1 MG/ML 5ML SYR IV PRN (16:30)
[2017-03-26] MEDS ORDERED: ONDANSETRON INJ 2 MG/ML 2 ML VIAL IV PRN (16:30)
[2017-03-26] MEDS ORDERED: PHENYLEPHRINE 100MCG/ML 5ML SYR IV PRN (16:30)
[2017-03-26] MEDS ORDERED: VANCOMYCIN HCL 1000MG/20ML VIAL ONE (16:38)
[2017-03-26] MEDS ORDERED: GENTAMICIN SULFATE 40 MG/ML 2 ML VIAL ONE ×2 (16:38)
[2017-03-26] MEDS ORDERED: BACITRACIN 50000 UNIT VIAL ONE ×2 (16:42→18:36)
[2017-03-26] MEDS ORDERED: NURSING VERBAL MED ORDER ONE (18:30)
[2017-03-26] MEDS ORDERED: HYDROmorphone INJ 2 MG/ML SYR/VIAL ONE (18:35)
[2017-03-26] MEDS ORDERED: PROMETHAZINE HCL INJ 25 MG in SODIUM CHLORIDE 0.9% 50ML 50 ML IV ONE (19:00)
[2017-03-26] MEDS ORDERED: LABETALOL HCL IV 5 MG/ML 20ML IV PRN (19:15)
[2017-03-26] MEDS: HYDROmorphone INJ 1 MG/ML SYR IV PRN ×2 (19:38→19:43)
--- NOTE | 2017-03-26 19:52 | [facility] Operative Report ---
Operative Report Date of Service Mar 26, 2017. Operative Report Preoperative Diagnosis: Left ankle wound dehiscence; tissue loss lateral ankle; osteomyelitis the fibula; infected nonunion left fibula; persistent tobacco abuse Postoperative diagnosis: Same as above Procedure: Left ankle irrigation and debridement; debridement of skin; debridement of fascia; debridement of peroneal tendons; saucerization of the distal lateral fibula; implantation of antibiotic laden Stimulan beads Surgeon: Dr. Yuri Fischer D.O. speech pathologist assistant: None Anesthesia: Gen. LMA Specimens: Aerobic, anaerobic and Gram stain and analysis distal lateral ankle; bone to pathology for analysis of osteomyelitis Drains: Adaptic and bead pouch Complications: None Blood loss: 20 mL Indications: This is a 57-year-old woman who had undergone open reduction internal fixation for a uncomplicated trimalleolar ankle fracture. Patient had an uneventful recovery course for the first 4 weeks and then developed a wound dehiscence of the lateral ankle. Patient was taken back to the operative suite and underwent irrigation and debridement and was placed on antibiotics. Patient then followed up in clinic and was noted to have continued wound problems was referred to wound care and was also counseled on smoking cessation and was given nutritional counseling. Patient failed to stop smoking and not modify her diet and nutritional status. Patient then presented back to clinic 24 hours ago and was noted to have worsening wound condition with potential exposed bone of the distal lateral fibula. Decision was made for repeat irrigation debridement and further care and management. The patient was then scheduled for surgery as indicated. All potential risks, benefits, complications, alternatives, rehabilitation, potential for incomplete relief of symptoms, DVT, PE, , persistent pain and swelling, scar and weakness neurovascular injury, nonunion, malunion and wound complications were discussed with the patient. The patient decided to proceed with procedure as indicated. PROCEDURE: The patient was taken to the Operative Suite and placed supine on the Operating Room table. After reviewing the consent and identification of proper operative site, the patient was anesthetized. LMA was placed. Tourniquet was placed high on the operative thigh over cast padding. The lower extremity was sterilely prepped and draped in the usual fashion. The operative lower extremity was elevated and tourniquet inflated to 350 mmHg. There was no exsanguination performed due to the infection and wound dehiscence of the lateral ankle. A 15 blade scalpel and a forcep was used to sharply debride the necrotic tissue circumferentially around the area of wound dehiscence. Sharp debridement was also performed of the skin and the fibrinous exudate at the lateral ankle wound. The peroneal tendons were identified and they were noted to be partially desiccated. The necrotic and damaged portions of the peroneal tendons were sharply debrided with a 15 blade scalpel. The fascia adjacent to the skin edges was also sharply debrided with 15 blade scalpel. All necrotic appearing tissue was sharply debrided and excised. Next large curette was then used to curettage the skin and tissue tendon, fascia and bone. Next specimen was taken for aerobic, anaerobic and Gram stain. A rongeur was then used to obtain a sample of the distal lateral fibula which is noted to be excessively soft and was sent to pathology to assess for the presence of osteomyelitis. After all grossly necrotic tissue had been excised and debrided pulsatile lavage was then used to cleanse the lateral distal ankle using a solution of sterile normal saline and bacitracin. 6 L of lavage solution was used in total. Next top gloves were changed as well as the top sheet. Next Stimulan calcium sulfate beads were created and infused with vancomycin powder and gentamicin. After the beads informed a small bead pouch was created with an Adaptic and a skin stapler. Beads were implanted at the proximal, distal superior and inferior aspects of the wound dehiscence. The wound dehiscence and tissue necrosis measured approximately 4 cm x 8 cm in length. Next a sterile lightly compressive dressing was applied consisting of Adaptic, sterile 4 x 4's, ABG pads 2 and a well-padded posterior plaster splint. The ankle was held in neutral dorsiflexion and Santosh wrap was used to overwrap the splint. The tourniquet was released. The patient was awakened and taken to Recovery Room in stable condition. I attest to the content of the Intraoperative Record and any orders documented therein. Any exceptions are noted below.
--- NOTE | 2017-03-26 19:54 | Anesthesiology Progress Note ---
Anesthesia Post Op Note Date & Time Mar 26, 2017 at 19:54 Vital Signs Pain Intensity: 8 Vital Signs Past 12 Hours Date Time Temp Pulse Resp B/P (MAP) Pulse Ox O2 Delivery O2 Flow Rate FiO2 03/26/17 19:45 92 18 162/91 100 Nasal Cannula 2 03/26/17 19:35 95 20 167/110 100 Mask 10 03/26/17 19:25 94 20 183/85 100 Mask 10 03/26/17 19:18 36.6 95 16 182/113 100 Mask 10 03/26/17 16:35 80 16 98 Room Air Notes Mental Status: alert / awake / arousable, participated in evaluation Pt Amnestic to Procedure: Yes Nausea / Vomiting: adequately controlled Pain: adequately controlled Airway Patency, RR, SpO2: stable & adequate BP & HR: stable & adequate Hydration State: stable & adequate Anesthetic Complications: no major complications apparent
[2017-03-26] MEDS ORDERED: OXYCODONE HCL IR 5 MG TAB (IMMEDIATE RELEASE) PO PRN (20:00)
[2017-03-26] MEDS ORDERED: ZOLPIDEM TARTRATE 5 MG TAB PO PRN (20:00)
[2017-03-26] MEDS ORDERED: MAGNESIUM HYDROXIDE SUSP 30 ML UDC PO PRN (20:00)
[2017-03-26] MEDS ORDERED: ACETAMINOPHEN 325 MG TAB PO PRN (20:00)
[2017-03-26] MEDS ORDERED: ALUMINUM/MAGNESIUM/SIMETH (MAALOX MAX) 30 ML UDC PO PRN (20:00)
[2017-03-26] MEDS ORDERED: FENTANYL 50 MCG/HR TDSY TD SCH ×2 (20:00→21:00)
[2017-03-26] MEDS: FENTANYL PATCH REMOVE & WASTE SCH (20:59)
[2017-03-26] MEDS ORDERED: DOCUSATE SODIUM 100 MG CAP PO SCH (21:00)
[2017-03-26] MEDS ORDERED: POTASSIUM CHLORIDE INJ 10 MEQ in SODIUM CHLORIDE 0.9% 1000ML 1,000 ML IV SCH ×2 (21:00→22:45)
[2017-03-26] MEDS: CEFAZOLIN IV 1,000 MG in DEXTROSE 5% 50ML 50 ML IV SCH ×2 (21:13→21:15)
--- NOTE | 2017-03-26 21:23 | DIAGNOSTIC IMAGING REPORT ---
LEFT ANKLE 2 VIEWS CLINICAL HISTORY: Postoperative examination. FINDINGS: 2 portable views of left ankle are compared to study dated 12/18/2016. The examination is performed through a splint, obscuring fine bony detail. A cortical lag screw transfixes the medial malleolus. 2 additional cortical lag screws transfix the tibial plafond. A buttress plate along the distal fibula has been removed from previous. Numerous radiodensities are now seen around the fibula, likely representing antibiotic implants. The ankle mortise is intact. Diffuse soft tissue edema is present around the ankle and there is a joint effusion. Skin clips are noted along the lateral aspect of the ankle. IMPRESSION: 1. Postoperative changes from hardware removal in the distal fibula as above. 2. Soft tissue edema is an expected postoperative finding. No acute fracture is suspected. Electronically signed by: Angus Marte M.D. 03/26/2017 9:22 PM Dictated Date/Time: 03/26/2017 9:19 PM
[2017-03-26] MEDS: ATORVASTATIN 40 MG TAB PO SCH (21:42)
[2017-03-26] MEDS: SOTALOL HCL 80 MG TAB PO SCH (21:42)
[2017-03-26] MEDS: RANITIDINE HCL 150 MG TAB PO SCH (21:43)
[2017-03-26 22:13] LABS: BASO % 0.6 %; BASO ABS # 0.03 K/uL (0-0.2); COMPLETE YES; EOS % 0.2 %; HEMATOCRIT 35.8 % (37-47); IG% 0.2 %; LYMPH % 10.3 %; LYMPH ABS # 0.53 K/uL (1.2-3.4); MEAN CELL VOLUME 96.8 fL (80-100); MEAN CORPUSCULAR HEMOGLOBIN 31.9 pg (25-34); MEAN PLATELET VOLUME 10.4 fL (7.4-10.4); MONO % 1.6 %; NEUT % 87.1 %; PLATELET COUNT 267 K/uL (130-400); WHITE BLOOD COUNT 5.14 K/uL (4.8-10.8)
[2017-03-26 22:21] LABS: INR 2.2 (0.9-1.1)
[2017-03-26 22:33] LABS: BUN/CREATININE RATIO 6.8 (10-20); CALCIUM 8.6 mg/dl (8.5-10.1); CREATININE 0.6 mg/dl (0.60-1.20); MAGNESIUM 1.9 mg/dl (1.8-2.4); POTASSIUM 4.3 mmol/L (3.5-5.1)
[2017-03-27] VITALS (8 sets, daily range): BP systolic 121–160; BP diastolic 75–78; PULSE 69–101; TEMP 36.6–36.9; O2SAT 92–99
--- NOTE | 2017-03-27 00:50 | Medical Consult ---
Consultation Date of Consultation: Mar 27, 2017. Attending Physician: Yuri Fischer D.O. Reason for Consultation: Medical management History of Present Illness Patient underwent debridement of persistent/recurrent left lower extremity bone/ wound infection last night. No chest pain no shortness of breath. Patient complaining of postop left leg pain. Past Medical/Surgical History Medical Problems: (1) Lower extremity edema Status: Acute (2) Trimalleolar fracture of ankle, closed Status: Acute HTN PVD sp surgery PAF on Coumadin Ongoing tobacco abuse Chronic hyponatremia Chronic anemia baseline hemoglobin 9-10 Osteomyelitis left lower extremity Orthopedic procedures Vascular procedures appendectomy Family History Hypertension FATHER MOTHER Social History Smoking Status: Current Every Day Smoker Alcohol Use: occasionally Drug Use: none Marital Status: Housing Status: lives with family Occupation Status: unemployed, other ([email or web address] employee) Allergies Coded Allergies: Adhesives (Verified Allergy, Mild, 03/26/17) Guanfacine (Verified Allergy, Unknown, 03/26/17) Nifedipine (Verified Allergy, Unknown, 03/26/17) Home Medications Allergies Coded Allergies: Adhesives (Verified Allergy, Mild, 12/13/16) Guanfacine (Verified Allergy, Unknown, 12/13/16) Nifedipine (Verified Allergy, Unknown, 12/13/16) Home Medications Scheduled Amlodipine (Norvasc), 10 MG PO DAILY Aspirin (Aspirin Ec), 81 MG PO DAILY Atorvastatin (Lipitor), 80 MG PO HS Bupropion (Wellbutrin Sr), 150 MG PO DAILY Clopidogrel (Plavix), 75 MG PO DAILY Fentanyl (Duragesic), 50 MCG TD [id number] Fluoxetine (Prozac), 20 MG PO DAILY Oxycodone HCl (Oxycontin), 10 MG PO Q12H Pantoprazole (Protonix), 40 MG PO DAILY Ranitidine (Zantac), 300 MG PO HS Sotalol HCl (Sotalol HCl), 80 MG PO BID Warfarin Sodium (Warfarin Sodium), 5 MG PO 4XWK @ 1600 Warfarin Sodium (Warfarin Sodium), 7.5 MG PO 3XWK @ 1600 Current Inpatient Medications Current Inpatient Medications Medications (Trade) Dose Ordered Sig/Rosa Route Start Time Stop Time Status Last Admin Dose Admin Cefazolin Sodium 55 ml @ 100 mls/hr PREOP IV 03/26/17 06:00 03/27/17 05:59 Amlodipine Besylate (Norvasc Tab) 10 mg DAILY PO 03/27/17 09:00 04/26/17 08:59 Aspirin (Ecotrin Tab) 81 mg DAILY PO 03/27/17 09:00 04/26/17 08:59 Atorvastatin Calcium (Lipitor Tab) 80 mg HS PO 03/26/17 21:00 04/25/17 20:59 03/26/17 21:42 80 MG Bupropion HCl (Wellbutrin-Sr Tab) 150 mg DAILY PO 03/27/17 09:00 04/26/17 08:59 Clopidogrel Bisulfate (plAVix TAB) 75 mg DAILY PO 03/27/17 09:00 04/26/17 08:59 Fluoxetine HCl (Prozac Cap) 20 mg DAILY PO 03/27/17 09:00 04/26/17 08:59 Ondansetron HCl (Zofran Tab) 8 mg Q6HWA PRN PO 03/26/17 20:00 04/25/17 19:59 Oxycodone HCl (Roxicodone Immediate Rel Tab) 5 mg Q6 PRN PO 03/26/17 20:00 04/09/17 19:59 03/26/17 21:39 5 MG Pantoprazole Sodium (Protonix Tab) 40 mg DAILY PO 03/27/17 09:00 04/26/17 08:59 Sotalol HCl (Betapace Tab) 80 mg BID PO 03/26/17 21:00 04/25/17 20:59 03/26/17 21:42 80 MG Warfarin Sodium (Coumadin Tab) 5 mg DAILY@1600 PO 03/27/17 16:00 04/26/17 15:59 Ranitidine HCl (zANTac TAB) 300 mg HS PO 03/26/17 21:00 04/25/17 20:59 03/26/17 21:43 300 MG Acetaminophen (Tylenol Tab) 650 mg Q6H PRN PO 03/26/17 20:00 04/25/17 19:59 Magnesium Hydroxide (Milk Of Magnesia Susp) 30 ml Q6H PRN PO 03/26/17 20:00 04/25/17 19:59 Docusate Sodium (coLACE CAP) 100 mg BID PO 03/26/17 21:00 04/25/17 20:59 03/26/17 21:42 100 MG Al Hydrox/Mg Hydrox/Simethicone (Maalox Max Susp) 15 ml Q4H PRN PO 03/26/17 20:00 04/25/17 19:59 Zolpidem Tartrate (Ambien Tab) 5 mg HSZ PRN PO 03/26/17 20:00 04/25/17 19:59 Multivitamins (Multivitamin Tab) 1 tab QAM PO 03/27/17 09:00 04/26/17 08:59 Ferrous Gluconate (Ferrous Gluconate Tab) 324 mg DAILY PO 03/27/17 09:00 04/26/17 08:59 Fentanyl (Duragesic Patch) 50 mcg Q3D@2100 TD 03/26/17 21:00 04/09/17 20:59 03/26/17 21:40 50 MCG Miscellaneous (Fentanyl Patch Remove & Waste) 1 ea Q3D@2059 N/A 03/26/17 20:59 04/25/17 20:58 Miscellaneous Information (Check Fentanyl Patch Placement) 1 ea QS N/A 03/27/17 00:00 04/26/17 00:00 Cefazolin Sodium 1000 mg/Dextrose 55 ml @ 100 mls/hr Q8H IV 03/27/17 02:00 03/27/17 10:32 Potassium Chloride 10 meq/ Sodium Chloride 1,005 ml @ 100 mls/hr Q10H3M IV 03/26/17 22:45 03/27/17 08:47 Review of Systems as per history of present illness, all other ROS negative Physical Exam Date Time Temp Pulse Resp B/P (MAP) Pulse Ox O2 Delivery O2 Flow Rate FiO2 03/26/17 23:26 36.6 103 20 117/84 (95) 98 Nasal Cannula 1.0 03/26/17 22:30 36.8 81 18 115/78 (90) 98 Nasal Cannula 1.0 03/26/17 21:30 36.9 82 18 114/76 (89) 99 Nasal Cannula 1.0 03/26/17 21:00 98 Nasal Cannula 2.0 03/26/17 20:59 36.8 76 18 127/85 (99) 98 Nasal Cannula 2.0 03/26/17 20:33 96 Nasal Cannula 2.0 03/26/17 20:32 36.8 75 18 121/81 (94) 95 Nasal Cannula 2.0 03/26/17 20:05 36.3 88 16 145/80 100 Nasal Cannula 2 03/26/17 19:55 90 18 142/94 100 Nasal Cannula 2 03/26/17 19:45 92 18 162/91 100 Nasal Cannula 2 03/26/17 19:35 95 20 167/110 100 Mask 10 03/26/17 19:25 94 20 183/85 100 Mask 10 03/26/17 19:18 36.6 95 16 182/113 100 Mask 10 03/26/17 16:35 80 16 98 Room Air General Appearance: + pertinent finding (uncomfortable, looks older than stated age, heavy tobacco odor) Head: normocephalic Eyes: + pertinent finding (pale palpebral conjunctivae, dry mucosa) Neck: supple Respiratory/Chest: + decreased breath sounds Cardiovascular: regular rate, rhythm Abdomen/GI: soft Extremities/Musculoskelatal: + pertinent finding (dressing left lower extremity ) Skin: + pallor Laboratory Results Last 24 Hours Test 03/26/17 21:56 White Blood Count 5.14 K/uL Red Blood Count 3.70 M/uL Hemoglobin 11.8 g/dL Hematocrit 35.8 % Mean Corpuscular Volume 96.8 fL Mean Corpuscular Hemoglobin 31.9 pg Mean Corpuscular Hemoglobin Concent 33.0 g/dl Platelet Count 267 K/uL Mean Platelet Volume 10.4 fL Neutrophils (%) (Auto) 87.1 % Lymphocytes (%) (Auto) 10.3 % Monocytes (%) (Auto) 1.6 % Eosinophils (%) (Auto) 0.2 % Basophils (%) (Auto) 0.6 % Neutrophils # (Auto) 4.48 K/uL Lymphocytes # (Auto) 0.53 K/uL Monocytes # (Auto) 0.08 K/uL Eosinophils # (Auto) 0.01 K/uL Basophils # (Auto) 0.03 K/uL RDW Standard Deviation 63.5 fL RDW Coefficient of Variation 18.2 % Immature Granulocyte % (Auto) 0.2 % Immature Granulocyte # (Auto) 0.01 K/uL Prothrombin Time 24.0 SECONDS Prothromb Time International Ratio 2.2 Sodium Level 134 mmol/L Potassium Level 4.3 mmol/L Chloride Level 101 mmol/L Carbon Dioxide Level 29 mmol/L Anion Gap 4.0 mmol/L Blood Urea Nitrogen 4 mg/dl Creatinine 0.60 mg/dl Est Creatinine Clear Calc Drug Dose 98.2 ml/min Estimated GFR () 117.3 Estimated GFR (Non- 101.2 BUN/Creatinine Ratio 6.8 Random Glucose 167 mg/dl Osmolality 280 mOsm/kg Calcium Level 8.6 mg/dl Magnesium Level 1.9 mg/dl Assessment & Plan ASSESSMENT AND RECOMMENDATIONS : Left lower extremity osteomyelitis, wound infection status post rpt. debridement hx ORIF L ankle fx 11/2016 Clinically well except for worsening of chronic pain Patient has been on a fentanyl patch for months now Hypertension stable Hx A. fib on Coumadin, patient slightly tachycardic , INR therapeutic History PVD status post surgery Chronic hyponatremia Chronic anemia, hemoglobin better than baseline Ongoing tobacco abuse Analgesia ff operative CS ff inpatient ID follow-up evaluation by Dr. Bhatia for chronic leg infection Continue home Sotalol Fluid restriction 2 L Patient counseled to stop smoking DVT prophylaxis Coumadin INR goal 2-3 Thank you very much for this consultation. Dr. Giordano will follow patient's progress.
[2017-03-27] MEDS ORDERED: KETOROLAC TROMETHAMINE 15 MG/ML VIAL IV. ONE (01:08)
[2017-03-27] MEDS ORDERED: MoRPHine SULFATE 4 MG/ML 1 ML CARP\\VIAL IV PRN (01:15)
[2017-03-27] MEDS: OXYCODONE/ACETAMINOPHEN 5-325 TAB PO PRN ×4 (01:45→20:03)
[2017-03-27] MEDS ORDERED: CEFAZOLIN IV 1,000 MG in DEXTROSE 5% 50ML 50 ML IV SCH (02:00)
[2017-03-27 07:20] LABS: HEMATOCRIT 30.7 % (37-47); MEAN CELL VOLUME 96.2 fL (80-100); MEAN CORPUSCULAR HEMOGLOBIN 32.9 pg (25-34); MEAN CORPUSCULAR HGB CONC 34.2 g/dl (32-36); MEAN PLATELET VOLUME 10.1 fL (7.4-10.4); PLATELET COUNT 250 K/uL (130-400); RED BLOOD COUNT 3.19 M/uL (4.2-5.4); WHITE BLOOD COUNT 3.72 K/uL (4.8-10.8)
[2017-03-27 07:33] LABS: INR 1.5 (0.9-1.1); PROTHROMBIN TIME (PATIENT) 16.5 SECONDS (9.0-12.0)
[2017-03-27 07:45] LABS: BUN/CREATININE RATIO 8.4 (10-20); CALCIUM 8.4 mg/dl (8.5-10.1); CREATININE 0.57 mg/dl (0.60-1.20)
[2017-03-27] MEDS: CHECK FENTANYL PATCH PLACEMENT SCH ×3 (07:56→16:08)
--- NOTE | 2017-03-27 08:18 | Medical Consult ---
Consultation Date of Consultation: Mar 27, 2017. Attending Physician: Yuri Fischer D.O. History of Present Illness pt admitted from ortho office after routine visit for non healing lle wound. was previously on ctx 2 g q24 x 6 weeks for mssa. culture dated 02/02 grew mssa and clostridium (grew after pt was d/c). At ID follow up, pt was placed on augmentin for clostridium as well. has been taking this, ctx completed. Was seen by ID at wound center on wednesday of this week, admission and wash out suggeted but pt did not want to be admitted and she was then scheduled for routine wound center visits for debridement and vac placement. She has not had additional follow up at wound center, was to be there this coming Wednesday. No f/ c at home, still with pain and drainage. went for wash out again yesterday, new beads placed. still with retained hardware. Only complaint is of pain, dressing intact. All remaining ros reviewed and are negative. Past Medical/Surgical History Medical Problems: (1) Lower extremity edema Status: Acute (2) Trimalleolar fracture of ankle, closed Status: Acute Family History Hypertension FATHER MOTHER Social History Smoking Status: Current Every Day Smoker Drug Use: none Marital Status: Housing Status: lives with family Occupation Status: unemployed Allergies Coded Allergies: Adhesives (Verified Allergy, Mild, 03/26/17) Guanfacine (Verified Allergy, Unknown, 03/26/17) Nifedipine (Verified Allergy, Unknown, 03/26/17) Current Inpatient Medications Current Inpatient Medications Medications (Trade) Dose Ordered Sig/Rosa Route Start Time Stop Time Status Last Admin Dose Admin Amlodipine Besylate (Norvasc Tab) 10 mg DAILY PO 03/27/17 09:00 04/26/17 08:59 Aspirin (Ecotrin Tab) 81 mg DAILY PO 03/27/17 09:00 04/26/17 08:59 Atorvastatin Calcium (Lipitor Tab) 80 mg HS PO 03/26/17 21:00 04/25/17 20:59 03/26/17 21:42 80 MG Bupropion HCl (Wellbutrin-Sr Tab) 150 mg DAILY PO 03/27/17 09:00 04/26/17 08:59 Clopidogrel Bisulfate (plAVix TAB) 75 mg DAILY PO 03/27/17 09:00 04/26/17 08:59 Fluoxetine HCl (Prozac Cap) 20 mg DAILY PO 03/27/17 09:00 04/26/17 08:59 Ondansetron HCl (Zofran Tab) 8 mg Q6HWA PRN PO 03/26/17 20:00 04/25/17 19:59 Pantoprazole Sodium (Protonix Tab) 40 mg DAILY PO 03/27/17 09:00 04/26/17 08:59 Sotalol HCl (Betapace Tab) 80 mg BID PO 03/26/17 21:00 04/25/17 20:59 03/26/17 21:42 80 MG Warfarin Sodium (Coumadin Tab) 5 mg DAILY@1600 PO 03/27/17 16:00 04/26/17 15:59 Ranitidine HCl (zANTac TAB) 300 mg HS PO 03/26/17 21:00 04/25/17 20:59 03/26/17 21:43 300 MG Acetaminophen (Tylenol Tab) 650 mg Q6H PRN PO 03/26/17 20:00 04/25/17 19:59 Magnesium Hydroxide (Milk Of Magnesia Susp) 30 ml Q6H PRN PO 03/26/17 20:00 04/25/17 19:59 Al Hydrox/Mg Hydrox/Simethicone (Maalox Max Susp) 15 ml Q4H PRN PO 03/26/17 20:00 04/25/17 19:59 Zolpidem Tartrate (Ambien Tab) 5 mg HSZ PRN PO 03/26/17 20:00 04/25/17 19:59 Multivitamins (Multivitamin Tab) 1 tab QAM PO 03/27/17 09:00 04/26/17 08:59 Ferrous Gluconate (Ferrous Gluconate Tab) 324 mg DAILY PO 03/27/17 09:00 04/26/17 08:59 Fentanyl (Duragesic Patch) 50 mcg Q3D@2100 TD 03/26/17 21:00 04/09/17 20:59 03/26/17 21:40 50 MCG Miscellaneous (Fentanyl Patch Remove & Waste) 1 ea Q3D@2059 N/A 03/26/17 20:59 04/25/17 20:58 Miscellaneous Information (Check Fentanyl Patch Placement) 1 ea QS N/A 03/27/17 00:00 04/26/17 00:00 03/27/17 07:56 1 EA Cefazolin Sodium 1000 mg/Dextrose 55 ml @ 100 mls/hr Q8H IV 03/27/17 02:00 03/27/17 10:32 03/27/17 01:38 100 MLS/HR Potassium Chloride 10 meq/ Sodium Chloride 1,005 ml @ 100 mls/hr Q10H3M IV 03/26/17 22:45 03/27/17 08:47 Docusate Sodium (coLACE CAP) 100 mg DAILY PO 03/27/17 09:00 04/26/17 08:59 Oxycodone/ Acetaminophen (Percocet 5-325mg Tab) 1 tab Q6H PRN PO 03/27/17 01:15 04/10/17 01:14 03/27/17 08:00 1 TAB Morphine Sulfate (MoRPHine SULFATE INJ) 4 mg Q6H PRN IV 03/27/17 01:15 04/10/17 01:14 03/27/17 06:12 4 MG Ketorolac Tromethamine (Toradol Inj) 15 mg Q6H PRN IV. 03/27/17 01:15 04/01/17 01:14 Physical Exam Date Time Temp Pulse Resp B/P (MAP) Pulse Ox O2 Delivery O2 Flow Rate FiO2 03/27/17 07:52 36.8 71 16 160/77 (104) 96 Room Air 03/27/17 06:20 92 Room Air 03/27/17 03:48 36.8 70 17 121/75 (90) 96 Nasal Cannula 1.0 03/27/17 00:45 Nasal Cannula 1.0 03/26/17 23:26 36.6 103 20 117/84 (95) 98 Nasal Cannula 1.0 03/26/17 22:30 36.8 81 18 115/78 (90) 98 Nasal Cannula 1.0 03/26/17 21:30 36.9 82 18 114/76 (89) 99 Nasal Cannula 1.0 03/26/17 21:00 98 Nasal Cannula 2.0 03/26/17 20:59 36.8 76 18 127/85 (99) 98 Nasal Cannula 2.0 03/26/17 20:33 96 Nasal Cannula 2.0 03/26/17 20:32 36.8 75 18 121/81 (94) 95 Nasal Cannula 2.0 03/26/17 20:05 36.3 88 16 145/80 100 Nasal Cannula 2 03/26/17 19:55 90 18 142/94 100 Nasal Cannula 2 03/26/17 19:45 92 18 162/91 100 Nasal Cannula 2 03/26/17 19:35 95 20 167/110 100 Mask 10 03/26/17 19:25 94 20 183/85 100 Mask 10 03/26/17 19:18 36.6 95 16 182/113 100 Mask 10 03/26/17 16:35 80 16 98 Room Air General Appearance: WD/WN, no apparent distress Head: normocephalic, atraumatic Eyes: normal inspection, EOMI Neck: supple Respiratory/Chest: lungs clear, normal breath sounds, no respiratory distress Cardiovascular: regular rate, rhythm, no edema Abdomen/GI: non tender, soft Extremities/Musculoskelatal: no calf tenderness, no pedal edema, + pertinent finding (dressing intact) Neurologic/Psych: alert, oriented x 3 Skin: normal color Laboratory Results Item Value Date Time Gram Stain - Final Complete 02/02/17 1555 Drainage-Deep Ankle Left Last 24 Hours Test 03/26/17 21:56 03/27/17 06:49 White Blood Count 5.14 K/uL 3.72 K/uL Red Blood Count 3.70 M/uL 3.19 M/uL Hemoglobin 11.8 g/dL 10.5 g/dL Hematocrit 35.8 % 30.7 % Mean Corpuscular Volume 96.8 fL 96.2 fL Mean Corpuscular Hemoglobin 31.9 pg 32.9 pg Mean Corpuscular Hemoglobin Concent 33.0 g/dl 34.2 g/dl Platelet Count 267 K/uL 250 K/uL Mean Platelet Volume 10.4 fL 10.1 fL Neutrophils (%) (Auto) 87.1 % Lymphocytes (%) (Auto) 10.3 % Monocytes (%) (Auto) 1.6 % Eosinophils (%) (Auto) 0.2 % Basophils (%) (Auto) 0.6 % Neutrophils # (Auto) 4.48 K/uL Lymphocytes # (Auto) 0.53 K/uL Monocytes # (Auto) 0.08 K/uL Eosinophils # (Auto) 0.01 K/uL Basophils # (Auto) 0.03 K/uL RDW Standard Deviation 63.5 fL 62.9 fL RDW Coefficient of Variation 18.2 % 18.0 % Immature Granulocyte % (Auto) 0.2 % Immature Granulocyte # (Auto) 0.01 K/uL Prothrombin Time 24.0 SECONDS 16.5 SECONDS Prothromb Time International Ratio 2.2 1.5 Sodium Level 134 mmol/L 135 mmol/L Potassium Level 4.3 mmol/L 4.0 mmol/L Chloride Level 101 mmol/L 102 mmol/L Carbon Dioxide Level 29 mmol/L 27 mmol/L Anion Gap 4.0 mmol/L 6.0 mmol/L Blood Urea Nitrogen 4 mg/dl 5 mg/dl Creatinine 0.60 mg/dl 0.57 mg/dl Est Creatinine Clear Calc Drug Dose 98.2 ml/min 103.4 ml/min Estimated GFR () 117.3 119.3 Estimated GFR (Non- 101.2 102.9 BUN/Creatinine Ratio 6.8 8.4 Random Glucose 167 mg/dl 119 mg/dl Osmolality 280 mOsm/kg Calcium Level 8.6 mg/dl 8.4 mg/dl Magnesium Level 1.9 mg/dl Assessment & Plan (1) Infection of prosthesis Assessment & Plan: on ancef, will change to vanco pending OR cultures. will add gnr coverage as well as wound has been open. follow cultures. (2) Dehiscence of closure of skin
[2017-03-27] MEDS ORDERED: PIPERACILL/TAZOBAC CONSULT ACTIVE PRN (08:45)
[2017-03-27] MEDS ORDERED: VANCOMYCIN CONSULT ACTIVE PRN (08:45)
[2017-03-27] MEDS ORDERED: PIPERACILL/TAZOBAC IV 3.375 GM in DEXTROSE 5% 100ML IV ONE (09:00)
[2017-03-27] MEDS ORDERED: VANCOMYCIN INJ 1,800 MG in SODIUM CHLORIDE 0.9% 500ML 500 ML IV ONE (09:00)
[2017-03-27] MEDS ORDERED: VANCOMYCIN INJ 1,000 MG in SODIUM CHLORIDE 0.9% 250ML 250 ML IV SCH (09:00)
[2017-03-27] MEDS: SOTALOL HCL 80 MG TAB PO SCH ×2 (09:03→20:30)
[2017-03-27] MEDS: FLUOXETINE HCL 20 MG CAP PO SCH (09:03)
[2017-03-27] MEDS: ASPIRIN 81 MG ECTAB PO SCH (09:03)
[2017-03-27] MEDS: CLOPIDOGREL BISULFATE 75 MG TAB PO SCH (09:03)
[2017-03-27] MEDS: FERROUS GLUCONATE 324 MG TAB PO SCH (09:03)
[2017-03-27] MEDS: BuPROPion SR 150 MG TABCR PO SCH (09:03)
[2017-03-27] MEDS: DOCUSATE SODIUM 100 MG CAP PO SCH (09:03)
[2017-03-27] MEDS: MULTIVITAMIN TAB PO SCH (09:03)
--- NOTE | 2017-03-27 09:03 | Pharmacy Progress Note ---
Pharmacy Abx Initial Consult Date of Service Mar 27, 2017. Pharmacy Dosing Scope Date of Consult: 03/27/17 Consultation requested by: Dr. Bhatia Pharmacy is consulted to initiate Vanco/Zosyn IV/PO dosing therapy, order appropriate labs and adjust drug dose/frequency. Subjective The patient is a 57 year old female admitted on Mar 26, 2017 at 20:07. Objective Height (Feet): 5 Height (Inches): 3 Weight (Kilograms): 71.800 Vital Signs (Past 12Hrs) Vital Signs Past 12 Hours Date Time Temp Pulse Resp B/P (MAP) Pulse Ox O2 Delivery O2 Flow Rate FiO2 03/27/17 07:52 36.8 71 16 160/77 (104) 96 Room Air 03/27/17 07:40 Room Air 03/27/17 06:20 92 Room Air 03/27/17 03:48 36.8 70 17 121/75 (90) 96 Nasal Cannula 1.0 03/27/17 00:45 Nasal Cannula 1.0 03/26/17 23:26 36.6 103 20 117/84 (95) 98 Nasal Cannula 1.0 03/26/17 22:30 36.8 81 18 115/78 (90) 98 Nasal Cannula 1.0 03/26/17 21:30 36.9 82 18 114/76 (89) 99 Nasal Cannula 1.0 03/26/17 21:00 98 Nasal Cannula 2.0 03/26/17 20:59 36.8 76 18 127/85 (99) 98 Nasal Cannula 2.0 Lab Results (24Hrs) Laboratory Tests (24 Hours) Test 03/26/17 21:56 03/27/17 06:49 White Blood Count 5.14 K/uL (4.8-10.8) 3.72 K/uL (4.8-10.8) L Red Blood Count 3.70 M/uL (4.2-5.4) L Hemoglobin 11.8 g/dL (12.0-16.0) L Hematocrit 35.8 % (37-47) L Mean Corpuscular Volume 96.8 fL (80-100) Mean Corpuscular Hemoglobin 31.9 pg (25-34) Mean Corpuscular Hemoglobin Concent 33.0 g/dl (32-36) Platelet Count 267 K/uL (130-400) Mean Platelet Volume 10.4 fL (7.4-10.4) Neutrophils (%) (Auto) 87.1 % Lymphocytes (%) (Auto) 10.3 % Monocytes (%) (Auto) 1.6 % Eosinophils (%) (Auto) 0.2 % Basophils (%) (Auto) 0.6 % Neutrophils # (Auto) 4.48 K/uL (1.4-6.5) Lymphocytes # (Auto) 0.53 K/uL (1.2-3.4) L Monocytes # (Auto) 0.08 K/uL (0.11-0.59) L Eosinophils # (Auto) 0.01 K/uL (0-0.5) Basophils # (Auto) 0.03 K/uL (0-0.2) Micro Results Date/Time Source Procedure Growth Status 03/26/17 18:26 Drainage-Deep Ankle Left Gram Stain Pending Received 03/26/17 18:26 Drainage-Deep Ankle Left Bacterial Culture Pending Received Risk Factors for Resistance * Hospitalization for 48 hours or more within the past 90 days * History of infection: MSSA in wound * Antimicrobial use within the last 90 days: Rocephin and Augmentin Assessment & Plan 03/27: Pt is a 57yo F p/w infected prosthetic hardware. She failed outpatient tx with Rocephin and Augmentin. She doesnt have a h/o of MDRO. Renal fxn looks to be around her baseline. Current pt population p'kinetics: t1/2= 7.7hrs, ke=0.0898, Vd=0.7. BMI is not indicative of Vanco accumulation. Currently leukopenic, RR/ HR WNL, and afebrile. Vanco: * Vanco 1800mg (25mg/kg) x1 to quickly achieve a peak of ~36 * Then Vanco 1000mg (~15mg/kg) q8 set to start at 1600 * Current goal trough: 15-20 for deep seeded infxn and until c/s result * trough ordered for 03/28 @ 0730 prior to third MD Zosyn: * One time Zosyn 3.375 30 min infns set to start at 0900 * Then subsequent EI Zosyn 3.375g q8, appropriate for eCrCl>20cc/min and clinical status 03/28: Trough prior to the 3rd MD came back 19.5mcg/mL. True Css would most likely be supratherapeutic. Will adjust dosing interval to q10 and will push back next dose 2 hrs to allow Vanco clearance. Drainage now growing corynebacterium sp, will attempt to reach ID and discuss cutting/de-escalating Zosyn. Trough ordered for 03/30/17 @ 2330 prior to the 4th MD. Pharmacy will continue to follow and will adjust dose/frequency as necessary. Thank you.
[2017-03-27] MEDS: PANTOprazole SOD 40 MG TAB PO SCH (09:04)
[2017-03-27] MEDS: AMLODIPINE BESYLATE 5 MG TAB PO SCH (09:04)
[2017-03-27] MEDS: KETOROLAC TROMETHAMINE 15 MG/ML VIAL IV. PRN ×3 (09:15→23:59)
--- NOTE | 2017-03-27 11:23 | Orthopedic Progress Note ---
Orthopedic Progress Note Date of Service Mar 27, 2017. Subjective Post OP Day: 1 Additional Notes: Pt awake, alert. She is concerned that she has some drainage on the splint. States that she noticed it last night but it seems to be less today. Discussed pain medications. Pt with h/o taking pain meds for some time now due to surgeries etc. States that one of the doctors that saw her this AM increased her Percocet dosage. No other complaints. Denies SOB, CP , LH. Objective calves soft nontender, N/V intact, capillary refill less than 2 sec., A&O x3, toes mobile able to move her toes. toes pink/warm Date Time Temp Pulse Resp B/P (MAP) Pulse Ox O2 Delivery O2 Flow Rate FiO2 03/27/17 07:52 36.8 71 16 160/77 (104) 96 Room Air 03/27/17 07:40 Room Air 03/27/17 06:20 92 Room Air 03/27/17 03:48 36.8 70 17 121/75 (90) 96 Nasal Cannula 1.0 03/27/17 00:45 Nasal Cannula 1.0 03/26/17 23:26 36.6 103 20 117/84 (95) 98 Nasal Cannula 1.0 03/26/17 22:30 36.8 81 18 115/78 (90) 98 Nasal Cannula 1.0 03/26/17 21:30 36.9 82 18 114/76 (89) 99 Nasal Cannula 1.0 03/26/17 21:00 98 Nasal Cannula 2.0 03/26/17 20:59 36.8 76 18 127/85 (99) 98 Nasal Cannula 2.0 03/26/17 20:33 96 Nasal Cannula 2.0 03/26/17 20:32 36.8 75 18 121/81 (94) 95 Nasal Cannula 2.0 03/26/17 20:05 36.3 88 16 145/80 100 Nasal Cannula 2 03/26/17 19:55 90 18 142/94 100 Nasal Cannula 2 03/26/17 19:45 92 18 162/91 100 Nasal Cannula 2 03/26/17 19:35 95 20 167/110 100 Mask 10 03/26/17 19:25 94 20 183/85 100 Mask 10 03/26/17 19:18 36.6 95 16 182/113 100 Mask 10 03/26/17 16:35 80 16 98 Room Air Laboratory Results 24 Hours: Test 03/26/17 21:56 03/27/17 06:49 White Blood Count 5.14 K/uL Red Blood Count 3.70 M/uL Hemoglobin 11.8 g/dL 10.5 g/dL Hematocrit 35.8 % 30.7 % Mean Corpuscular Volume 96.8 fL Mean Corpuscular Hemoglobin 31.9 pg Mean Corpuscular Hemoglobin Concent 33.0 g/dl Platelet Count 267 K/uL Mean Platelet Volume 10.4 fL Neutrophils (%) (Auto) 87.1 % Lymphocytes (%) (Auto) 10.3 % Monocytes (%) (Auto) 1.6 % Eosinophils (%) (Auto) 0.2 % Basophils (%) (Auto) 0.6 % Neutrophils # (Auto) 4.48 K/uL Lymphocytes # (Auto) 0.53 K/uL Monocytes # (Auto) 0.08 K/uL Eosinophils # (Auto) 0.01 K/uL Basophils # (Auto) 0.03 K/uL Prothromb Time International Ratio 2.2 1.5 Prothrombin Time 24.0 SECONDS 16.5 SECONDS Assessment & Plan Assessment: POD 1 s/p Left ankle irrigation and debridement; debridement of skin; debridement of fascia; debridement of peroneal tendons; saucerization of the distal lateral fibula; implantation of antibiotic laden Stimulan beads Plan: Appreciate Medicine and ID Services seeing patient Follow cultures for now and await ID input for final recommendations on antibx PT/OT - NWB LLE DVT prophylaxis - Warfarin and Plavix Inhouse Planning Pain Management: Percocet, Toradol, Dilaudid, other (Fentanyl patch) DVT Prophylaxis: Coumadin, other (PLavix)
[2017-03-27] MEDS ORDERED: PIPERACILL/TAZOBAC IV 3.375 GM in DEXTROSE 5% 100ML 100 ML IV SCH (12:00)
[2017-03-27] MEDS: HYDROmorphone INJ 0.5 MG/0.5 ML SYR IV PRN ×3 (12:06→21:29)
[2017-03-27] MEDS: PIPERACILL/TAZOBAC IV 3.375 GM in DEXTROSE 5% 100ML IV SCH ×2 (13:59→21:29)
[2017-03-27] MEDS: WARFARIN SOD 5 MG TAB PO SCH (15:43)
[2017-03-27] MEDS: VANCOMYCIN INJ 1,000 MG in SODIUM CHLORIDE 0.9% 250ML 250 ML IV SCH ×2 (16:07→23:59)
[2017-03-27] MEDS: RANITIDINE HCL 150 MG TAB PO SCH (20:30)
[2017-03-27] MEDS: ATORVASTATIN 40 MG TAB PO SCH (20:30)
[2017-03-28] MEDS: CHECK FENTANYL PATCH PLACEMENT SCH ×3 (00:02→15:44)
[2017-03-28 00:05] VITALS: PULSE 80
[2017-03-28] MEDS: OXYCODONE/ACETAMINOPHEN 5-325 TAB PO PRN ×2 (01:57→07:58)
[2017-03-28] MEDS: HYDROmorphone INJ 0.5 MG/0.5 ML SYR IV PRN ×5 (02:44→20:30)
[2017-03-28] MEDS ORDERED: HYDROmorphone INJ 0.5 MG/0.5 ML SYR IV ONE (04:32)
[2017-03-28] MEDS: PIPERACILL/TAZOBAC IV 3.375 GM in DEXTROSE 5% 100ML IV SCH ×3 (06:03→22:05)
[2017-03-28] MEDS: KETOROLAC TROMETHAMINE 15 MG/ML VIAL IV. PRN ×3 (06:10→19:31)
[2017-03-28] MEDS ORDERED: VANCOMYCIN TROUGH ONE (07:30)
[2017-03-28 07:43] VITALS: BP 158/78; PULSE 68; TEMP 36.7; O2SAT 97
[2017-03-28 07:45] VITALS: O2SAT 97
[2017-03-28] MEDS: VANCOMYCIN INJ 1,000 MG in SODIUM CHLORIDE 0.9% 250ML 250 ML IV SCH ×2 (07:53→18:25)
[2017-03-28] MEDS: MULTIVITAMIN TAB PO SCH (08:00)
[2017-03-28] MEDS: ASPIRIN 81 MG ECTAB PO SCH (08:00)
[2017-03-28] MEDS: CLOPIDOGREL BISULFATE 75 MG TAB PO SCH (08:00)
[2017-03-28] MEDS: BuPROPion SR 150 MG TABCR PO SCH (08:00)
[2017-03-28] MEDS: PANTOprazole SOD 40 MG TAB PO SCH (08:00)
[2017-03-28] MEDS: FLUOXETINE HCL 20 MG CAP PO SCH (08:00)
[2017-03-28] MEDS: FERROUS GLUCONATE 324 MG TAB PO SCH (08:00)
[2017-03-28] MEDS: DOCUSATE SODIUM 100 MG CAP PO SCH (08:00)
[2017-03-28] MEDS: SOTALOL HCL 80 MG TAB PO SCH ×2 (08:00→20:39)
[2017-03-28] MEDS: AMLODIPINE BESYLATE 5 MG TAB PO SCH (08:01)
[2017-03-28 08:12] LABS: HEMATOCRIT 32.1 % (37-47); MEAN CELL VOLUME 97.6 fL (80-100); MEAN CORPUSCULAR HEMOGLOBIN 31.9 pg (25-34); MEAN CORPUSCULAR HGB CONC 32.7 g/dl (32-36); MEAN PLATELET VOLUME 11.1 fL (7.4-10.4); PLATELET COUNT 269 K/uL (130-400); RED BLOOD COUNT 3.29 M/uL (4.2-5.4); WHITE BLOOD COUNT 6.42 K/uL (4.8-10.8)
[2017-03-28 08:32] LABS: INR 1.1 (0.9-1.1); PROTHROMBIN TIME (PATIENT) 11.9 SECONDS (9.0-12.0)
[2017-03-28 08:52] LABS: BUN/CREATININE RATIO 6.5 (10-20); CALCIUM 8.4 mg/dl (8.5-10.1); CREATININE 0.6 mg/dl (0.60-1.20); POTASSIUM 3.4 mmol/L (3.5-5.1)
--- NOTE | 2017-03-28 10:14 | Orthopedic Progress Note ---
Orthopedic Progress Note Date of Service Mar 28, 2017. Subjective Post OP Day: 2 Reports: complaints (pain control issues), Denies: chest pain, SOB, nausea / vomiting, light headedness Additional Notes: Pt states that her pain control is not adequate currently. Also would like to be able to get OOB to [facility] on her own. No other complaints currently. Objective N/V intact, capillary refill less than 2 sec., A&O x3, toes mobile Splint with no increased drainage since yesterday Date Time Temp Pulse Resp B/P (MAP) Pulse Ox O2 Delivery O2 Flow Rate FiO2 03/28/17 07:45 97 Room Air 03/28/17 07:43 36.7 68 19 158/78 (104) 97 Room Air 03/28/17 00:05 Room Air 03/28/17 00:05 80 03/27/17 23:40 36.8 101 16 121/75 (90) 95 Room Air 03/27/17 19:29 36.9 69 16 124/75 (91) 97 Room Air 03/27/17 15:40 Room Air 03/27/17 15:27 36.7 71 16 134/77 (96) 97 Room Air 03/27/17 11:42 36.9 71 17 131/78 (95) 99 Laboratory Results 24 Hours: Test 03/28/17 07:18 Hematocrit 32.1 % Hemoglobin 10.5 g/dL Prothromb Time International Ratio 1.1 Prothrombin Time 11.9 SECONDS Additional Notes: RUN DATE: 03/27/17 [facility] LAB PAGE 1 RUN TIME: 6156 Specimen Inquiry PATIENT: TIARA MCCALL LOC: [facility] U # : [id number] AGE/SX: 57/F ROOM: [facility] REG : 03/26/[address]: Yuri Fischer D.O. : 1960 BED: 2 DIS : STATUS: ADM IN TLOC: SPEC #: [id number] BEL: 03/26/17 STATUS: RES REQ #: [id number] RECD: 03/26/[address]: Yuri Fischer D.O. SOURCE: DRAIN-DEEP ENTR: 03/26/[address]: Fabio Tai M.D. SPDES: ANK LEFT ORDERED: AER/ANDRES CULTSMR COMMENTS: SOURCE IS LEFT LATERAL ANKLE Procedure Result Verified Site GRAM STAIN Final 07/01/17-0941 RESULT MODERATE WBCs SEEN FEW GRAM POSITIVE COCCI FEW GRAM POSITIVE BACILLI OR AER/ANDRES CULT Preliminary 03/27/17 Organism 1 GRAM POSITIVE BACILLI QUANITY MODERATE SENS NO SENSITIVITY TO FOLLOW Assessment & Plan Assessment: POD 2 s/p Left ankle irrigation and debridement; debridement of skin; debridement of fascia; debridement of peroneal tendons; saucerization of the distal lateral fibula; implantation of antibiotic laden Stimulan beads Plan: Appreciate Medicine and ID Services seeing patient Consult Pain Management for recommendations. Follow cultures for now and await ID input for final recommendations on antibx PT/OT - NWB LLE DVT prophylaxis - Warfarin and Plavix Inhouse Planning Pain Management: Percocet, Toradol, Dilaudid, other (Fentanyl patch) DVT Prophylaxis: Coumadin, other (PLavix)
[2017-03-28] MEDS ORDERED: POTASSIUM CHLORIDE 10 MEQ TABCR PO STA (11:02)
[2017-03-28] MEDS: OXYCODONE HCL IR 5 MG TAB (IMMEDIATE RELEASE) PO PRN ×3 (11:59→22:06)
--- NOTE | 2017-03-28 12:46 | Orthopedic Progress Note ---
Orthopedic Progress Note Date of Service Mar 28, 2017. Subjective Reports: complaints (left ankle pain), Denies: chest pain, SOB, nausea / vomiting, light headedness Additional Notes: Rates pain 4-5/10 with current pain regimen. Pain management consult entered. No fevers or chills. Objective calves soft nontender, N/V intact, splint C/D/I (scant old blood noted on ice pack. No new blood.), capillary refill less than 2 sec., A&O x3, toes mobile Date Time Temp Pulse Resp B/P (MAP) Pulse Ox O2 Delivery O2 Flow Rate FiO2 03/28/17 07:45 97 Room Air 03/28/17 07:43 36.7 68 19 158/78 (104) 97 Room Air 03/28/17 00:05 Room Air 03/28/17 00:05 80 03/27/17 23:40 36.8 101 16 121/75 (90) 95 Room Air 03/27/17 19:29 36.9 69 16 124/75 (91) 97 Room Air 03/27/17 15:40 Room Air 03/27/17 15:27 36.7 71 16 134/77 (96) 97 Room Air Laboratory Results 24 Hours: Test 03/28/17 07:18 Hematocrit 32.1 % Hemoglobin 10.5 g/dL Prothromb Time International Ratio 1.1 Prothrombin Time 11.9 SECONDS Assessment & Plan Assessment: POD #2 s/p Left ankle irrigation and debridement; debridement of skin; debridement of fascia; debridement of peroneal tendons; saucerization of the distal lateral fibula; implantation of antibiotic laden Stimulan beads Plan: Appreciate Medicine and ID Services seeing patient Consult Pain Management for recommendations. Consult pending for Plastics regarding possibility for rotational flap or free flap coverage. Consult pending for Vascular Surgery Follow cultures for now and await ID input for final recommendations on antibx PT/OT - NWB LLE DVT prophylaxis - Warfarin and Plavix Inhouse Planning Pain Management: Percocet, Toradol, Dilaudid, other (Fentanyl patch) DVT Prophylaxis: Coumadin, other (PLavix)
[2017-03-28] MEDS: OXYCODONE HCL 10 MG TABCR (OXYCONTIN) PO SCH (13:36)
--- NOTE | 2017-03-28 14:01 | Progress Note ---
Internal Med Progress Note Date of Service: Mar 28, 2017. Provider Documentation: SUBJECTIVE: The patient was seen and examined Complains of significant pain in left ankle Asking for more pain medication OBJECTIVE: Vital Signs-as noted below Exam: General-In moderate distress Eyes-normal ENT-Normal Neck-Supple Lungs-Clear to auscultate bilaterally Heart-Regular Abdomen-Benign,no masses,bowel sound present Extremities-No edema Left leg/ankle s bandaged Neuro-AAOx3 Lab data as noted below. ASSESSMENT & PLAN: Left lower extremity osteomyelitis, wound infection status post rpt. debridement hx ORIF L ankle fx 11/2016 POD #2 s/p Left ankle irrigation and debridement; debridement of skin; debridement of fascia; debridement of peroneal tendons; saucerization of the distal lateral fibula; implantation of antibiotic laden Stimulan beads ID follow-up evaluation by Dr. Bhatia for chronic leg infection-appreciate input Clinically well except for worsening pain Patient has been on a fentanyl patch for months now and feels that it is not working Pain therapist consulted by the primary Hypertension stable Hx A. fib on Coumadin, patient slightly tachycardic , INR therapeutic History PVD status post surgery Continue home Sotalol Chronic hyponatremia Sodium is normalized now Chronic anemia, hemoglobin better than baseline Ongoing tobacco abuse Patient counseled to stop smoking DVT prophylaxis Coumadin INR goal 2-3 Vital Signs: Date Time Temp Pulse Resp B/P (MAP) Pulse Ox O2 Delivery O2 Flow Rate FiO2 03/28/17 07:45 97 Room Air 03/28/17 07:43 36.7 68 19 158/78 (104) 97 Room Air 03/28/17 00:05 Room Air 03/28/17 00:05 80 03/27/17 23:40 36.8 101 16 121/75 (90) 95 Room Air 03/27/17 19:29 36.9 69 16 124/75 (91) 97 Room Air 03/27/17 15:40 Room Air 03/27/17 15:27 36.7 71 16 134/77 (96) 97 Room Air Lab Results: Results Past 24 Hours Test 03/28/17 07:18 Range/Units White Blood Count 6.42 4.8-10.8 K/uL Red Blood Count 3.29 4.2-5.4 M/uL Hemoglobin 10.5 12.0-16.0 g/dL Hematocrit 32.1 37-47 % Mean Corpuscular Volume 97.6 80-100 fL Mean Corpuscular Hemoglobin 31.9 25-34 pg Mean Corpuscular Hemoglobin Concent 32.7 32-36 g/dl RDW Standard Deviation 64.5 36.4-46.3 fL RDW Coefficient of Variation 18.3 11.5-14.5 % Platelet Count 269 130-400 K/uL Mean Platelet Volume 11.1 7.4-10.4 fL Prothrombin Time 11.9 9.0-12.0 SECONDS Prothromb Time International Ratio 1.1 0.9-1.1 Sodium Level 138 136-145 mmol/L Potassium Level 3.4 3.5-5.1 mmol/L Chloride Level 102 98-107 mmol/L Carbon Dioxide Level 30 21-32 mmol/L Anion Gap 6.0 3-11 mmol/L Blood Urea Nitrogen 4 7-18 mg/dl Creatinine 0.60 0.60-1.20 mg/dl Est Creatinine Clear Calc Drug Dose 98.2 ml/min Estimated GFR () 117.3 Estimated GFR (Non- 101.2 BUN/Creatinine Ratio 6.5 10-20 Random Glucose 76 70-99 mg/dl Calcium Level 8.4 8.5-10.1 mg/dl Vancomycin Level Trough 19.5 SEE COMMENT mcg/ml
[2017-03-28] MEDS: WARFARIN SOD 5 MG TAB PO SCH (15:47)
[2017-03-28 15:52] VITALS: BP 140/86; PULSE 67; TEMP 36.9; O2SAT 96
[2017-03-28 20:37] VITALS: BP 148/82; PULSE 66
[2017-03-28] MEDS: ATORVASTATIN 40 MG TAB PO SCH (20:40)
[2017-03-28] MEDS: RANITIDINE HCL 150 MG TAB PO SCH (20:40)
[2017-03-28 22:20] VITALS: BP 132/77; PULSE 64; TEMP 36.6; O2SAT 98
[2017-03-29] MEDS: OXYCODONE HCL 10 MG TABCR (OXYCONTIN) PO SCH (00:48)
[2017-03-29] MEDS: HYDROmorphone INJ 0.5 MG/0.5 ML SYR IV PRN ×6 (00:49→23:51)
[2017-03-29] MEDS: OXYCODONE HCL IR 5 MG TAB (IMMEDIATE RELEASE) PO PRN ×5 (02:09→21:05)
[2017-03-29] MEDS: VANCOMYCIN INJ 1,000 MG in SODIUM CHLORIDE 0.9% 250ML 250 ML IV SCH ×3 (03:58→23:51)
[2017-03-29] MEDS: KETOROLAC TROMETHAMINE 15 MG/ML VIAL IV. PRN ×3 (05:23→21:44)
[2017-03-29] MEDS: PIPERACILL/TAZOBAC IV 3.375 GM in DEXTROSE 5% 100ML IV SCH ×3 (05:23→21:33)
[2017-03-29 06:54] VITALS: BP 150/89; PULSE 62; TEMP 36.7; O2SAT 98
[2017-03-29 07:01] LABS: INR 1.1 (0.9-1.1); PROTHROMBIN TIME (PATIENT) 11.5 SECONDS (9.0-12.0)
[2017-03-29 07:06] LABS: HEMATOCRIT 32.9 % (37-47); MEAN CELL VOLUME 97.6 fL (80-100); MEAN CORPUSCULAR HEMOGLOBIN 30.9 pg (25-34); MEAN CORPUSCULAR HGB CONC 31.6 g/dl (32-36); MEAN PLATELET VOLUME 10.9 fL (7.4-10.4); PLATELET COUNT 272 K/uL (130-400); RED BLOOD COUNT 3.37 M/uL (4.2-5.4); WHITE BLOOD COUNT 7.93 K/uL (4.8-10.8)
--- NOTE | 2017-03-29 07:58 | Anesthesiology Progress Note ---
Anesthesia Post Op Note Date & Time Mar 29, 2017 at 07:57 Vital Signs Vital Signs Past 12 Hours Date Time Temp Pulse Resp B/P (MAP) Pulse Ox O2 Delivery O2 Flow Rate FiO2 03/29/17 06:54 36.7 62 16 150/89 (109) 98 Room Air 03/28/17 23:35 Room Air 03/28/17 22:20 36.6 64 16 132/77 (95) 98 Room Air 03/28/17 20:37 66 148/82 (104) Notes Mental Status: alert / awake / arousable, participated in evaluation Pt Amnestic to Procedure: Yes Nausea / Vomiting: adequately controlled Pain: adequately controlled Airway Patency, RR, SpO2: stable & adequate BP & HR: stable & adequate Hydration State: stable & adequate Anesthetic Complications: no major complications apparent
[2017-03-29] MEDS: CHECK FENTANYL PATCH PLACEMENT SCH ×6 (08:13→23:52)
[2017-03-29] MEDS: SOTALOL HCL 80 MG TAB PO SCH ×2 (08:24→20:56)
[2017-03-29] MEDS: DOCUSATE SODIUM 100 MG CAP PO SCH (08:24)
[2017-03-29] MEDS: CLOPIDOGREL BISULFATE 75 MG TAB PO SCH (08:24)
[2017-03-29] MEDS: BuPROPion SR 150 MG TABCR PO SCH (08:25)
[2017-03-29] MEDS: FLUOXETINE HCL 20 MG CAP PO SCH (08:25)
[2017-03-29] MEDS: PANTOprazole SOD 40 MG TAB PO SCH (08:25)
[2017-03-29] MEDS: ASPIRIN 81 MG ECTAB PO SCH (08:26)
[2017-03-29] MEDS: FERROUS GLUCONATE 324 MG TAB PO SCH (08:26)
[2017-03-29] MEDS: MULTIVITAMIN TAB PO SCH (08:26)
[2017-03-29] MEDS: AMLODIPINE BESYLATE 5 MG TAB PO SCH (08:27)
[2017-03-29] MEDS: ONDANSETRON 8 MG TAB PO PRN (08:29)
--- NOTE | 2017-03-29 09:55 | Progress Note ---
Subjective Date of Service: Mar 29, 2017. Subjective Pt evaluation today including: conversation w/ patient, physical exam, chart review, lab review pt with pain, 03/06, was seen by plastics and pain management today. focused on pain meds throughout exam. no fevers. no abd pain, no n/v/d. tolerating abx. 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 OR culture not final, so far corynebacterium only. She states she does not want to undergo home IV abx and would like to stay on augmentin. for dressing change today and possible irrigating vac. All remaining ros reviewed and are negative. Problem List Medical Problems: (1) Lower extremity edema Status: Acute (2) Trimalleolar fracture of ankle, closed Status: Acute Objective Vital Signs Date Time Temp Pulse Resp B/P (MAP) Pulse Ox O2 Delivery O2 Flow Rate FiO2 03/29/17 06:54 36.7 62 16 150/89 (109) 98 Room Air 03/28/17 23:35 Room Air 03/28/17 22:20 36.6 64 16 132/77 (95) 98 Room Air 03/28/17 20:37 66 148/82 (104) 03/28/17 16:00 Room Air 03/28/17 15:52 36.9 67 17 140/86 (104) 96 Room Air Physical Exam General Appearance: WD/WN, no apparent distress Eyes: normal inspection, EOMI Neck: supple Respiratory/Chest: lungs clear, normal breath sounds, no respiratory distress Cardiovascular: regular rate, rhythm, no edema Abdomen: non tender, soft Extremities: normal inspection, no pedal edema, + pertinent finding (dressin c/ d/i) Neurologic/Psychiatric: alert, oriented x 3 Skin: normal color Laboratory Results Item Value Date Time Gram Stain - Final Resulted 03/26/17 1826 Drainage-Deep Ankle Left Last 24 Hours Test 03/29/17 05:49 White Blood Count 7.93 K/uL Red Blood Count 3.37 M/uL Hemoglobin 10.4 g/dL Hematocrit 32.9 % Mean Corpuscular Volume 97.6 fL Mean Corpuscular Hemoglobin 30.9 pg Mean Corpuscular Hemoglobin Concent 31.6 g/dl RDW Standard Deviation 63.8 fL RDW Coefficient of Variation 18.1 % Platelet Count 272 K/uL Mean Platelet Volume 10.9 fL Prothrombin Time 11.5 SECONDS Prothromb Time International Ratio 1.1 Assessment and Plan (1) Infection of prosthesis Assessment & Plan: continue with IV abx for now, pending final cultures. for vac. will need continued wound care follow up post d/c. will need long course of abx. will plan to continue with po augmentin at home, unless cultures grow additional bacteria. will follow in wound center as well. will need prolonged abx, 6 weeks + (2) Dehiscence of closure of skin
--- NOTE | 2017-03-29 09:57 | Pain Management Consultation ---
Pain Management Consultation Date of Consultation Mar 29, 2017. Reason for Consultation Left ankle pain History Mrs. Garcia is a 57 year old white female that is being seen at the [facility] for left ankle pain. Patient has previously fractured the left ankle and subsequently received an ORIF. She developed x2 infections into the ankle that have required I&D. She describes a sharp stabbing pain in the ankle. At home, she was on Fentanyl 50mcg/hr for at least the last 2 weeks by her PCP. She was also on Oxycodone for breakthrough pain which was effective. Patient rates her pain a 7/10. Currently she is on Fentanyl 50mcg/ hr, OxyContin 10mg BID, Oxycodone 10mg x 4 hours, Toradol IV, and Dilaudid IV. She states that her pain is not controlled well enough at this time. She denies any fevers, chills, nausea, vomiting, constipation. Case discussed with Dr. 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) Allergies Coded Allergies: Adhesives (Verified Allergy, Mild, 03/26/17) Guanfacine (Verified Allergy, Unknown, 03/26/17) Nifedipine (Verified Allergy, Unknown, 03/26/17) Medications Current Inpatient Medications Medications (Trade) Dose Ordered Sig/Rosa Route Start Time Stop Time Status Last Admin Dose Admin Amlodipine Besylate (Norvasc Tab) 10 mg DAILY PO 03/27/17 09:00 04/26/17 08:59 03/29/17 08:27 10 MG Aspirin (Ecotrin Tab) 81 mg DAILY PO 03/27/17 09:00 04/26/17 08:59 03/29/17 08:26 81 MG Atorvastatin Calcium (Lipitor Tab) 80 mg HS PO 03/26/17 21:00 04/25/17 20:59 03/28/17 20:40 80 MG Bupropion HCl (Wellbutrin-Sr Tab) 150 mg DAILY PO 03/27/17 09:00 04/26/17 08:59 03/29/17 08:25 150 MG Clopidogrel Bisulfate (plAVix TAB) 75 mg DAILY PO 03/27/17 09:00 04/26/17 08:59 03/29/17 08:24 75 MG Fluoxetine HCl (Prozac Cap) 20 mg DAILY PO 03/27/17 09:00 04/26/17 08:59 03/29/17 08:25 20 MG Ondansetron HCl (Zofran Tab) 8 mg Q6HWA PRN PO 03/26/17 20:00 04/25/17 19:59 03/29/17 08:29 8 MG Pantoprazole Sodium (Protonix Tab) 40 mg DAILY PO 03/27/17 09:00 04/26/17 08:59 03/29/17 08:25 40 MG Sotalol HCl (Betapace Tab) 80 mg BID PO 03/26/17 21:00 04/25/17 20:59 03/29/17 08:24 80 MG Warfarin Sodium (Coumadin Tab) 5 mg DAILY@1600 PO 03/27/17 16:00 04/26/17 15:59 03/28/17 15:47 5 MG Ranitidine HCl (zANTac TAB) 300 mg HS PO 03/26/17 21:00 04/25/17 20:59 03/28/17 20:40 300 MG Acetaminophen (Tylenol Tab) 650 mg Q6H PRN PO 03/26/17 20:00 04/25/17 19:59 Magnesium Hydroxide (Milk Of Magnesia Susp) 30 ml Q6H PRN PO 03/26/17 20:00 04/25/17 19:59 Al Hydrox/Mg Hydrox/Simethicone (Maalox Max Susp) 15 ml Q4H PRN PO 03/26/17 20:00 04/25/17 19:59 Zolpidem Tartrate (Ambien Tab) 5 mg HSZ PRN PO 03/26/17 20:00 04/25/17 19:59 Multivitamins (Multivitamin Tab) 1 tab QAM PO 03/27/17 09:00 04/26/17 08:59 7/3/17 08:26 1 TAB Ferrous Gluconate (Ferrous Gluconate Tab) 324 mg DAILY PO 03/27/17 09:00 04/26/17 08:59 03/29/17 08:26 324 MG Docusate Sodium (coLACE CAP) 100 mg DAILY PO 03/27/17 09:00 04/26/17 08:59 03/29/17 08:24 100 MG Ketorolac Tromethamine (Toradol Inj) 15 mg Q6H PRN IV. 03/27/17 01:15 04/01/17 01:14 03/29/17 05:23 15 MG Piperacillin Sod/ Tazobactam Sod (Consult) 1 ea UD PRN N/A 03/27/17 08:45 04/26/17 08:44 Piperacillin Sod/ Tazobactam Sod 3.375 gm/Dextrose 115 ml @ 28.75 mls/ hr Q8H IV 03/27/17 14:00 05/08/17 13:59 03/29/17 05:23 28.75 MLS/HR Vancomycin HCl (Consult) 1 ea UD PRN N/A 03/27/17 08:45 04/26/17 08:44 Hydromorphone HCl (Dilaudid Inj) 0.5 mg Q4HWA PRN IV 03/27/17 11:15 04/10/17 11:14 03/29/17 08:15 0.5 MG Oxycodone HCl (Roxicodone Immediate Rel Tab) `1-2 tabs for pain 1 tab ... Q4HWA PRN PO 03/28/17 10:15 04/11/17 10:14 03/29/17 06:13 10 MG Vancomycin HCl 1000 mg/Sodium Chloride 270 ml @ 125 mls/hr Q10H IV 03/28/17 18:00 05/09/17 17:59 03/29/17 03:58 125 MLS/HR Fentanyl (Duragesic Patch) 50 mcg Q72H TD 03/29/17 10:00 04/12/17 09:59 Miscellaneous (Fentanyl Patch Remove & Waste) 1 ea Q3D N/A 04/01/17 09:15 05/01/17 09:14 Miscellaneous Information (Check Fentanyl Patch Placement) 1 ea QS N/A 03/29/17 16:00 04/28/17 15:59 Fentanyl (Duragesic Patch) 12 mcg Q3D TD 03/29/17 10:00 04/12/17 09:59 Miscellaneous (Fentanyl Patch Remove & Waste) 1 ea Q72H N/A 04/01/17 09:15 05/01/17 09:14 Miscellaneous Information (Check Fentanyl Patch Placement) 1 ea QS N/A 03/29/17 16:00 04/28/17 15:59 Review of Systems Denies any constitutional, cardiac, pulmonary, neurological, GI, , extremity, endocrine, neuro, ENT, dermatological, or musculoskeletal complaints other than stated in HPI Physical Exam Height & Weight: Height 5 feet, 3 inches. Weight 71.800 (Kilograms) 158 (Pounds) Last Vital Signs Documentation Date Time Temp Pulse Resp B/P (MAP) Pulse Ox O2 Delivery O2 Flow Rate FiO2 03/29/17 06:54 36.7 62 16 150/89 (109) 98 Room Air 03/27/17 03:48 1.0 Exam: GENERAL: Mrs. Garcia is a 57 y/o white female that appears slightly older than her stated age. Speech and cognition is intact. Mood and affect is appropriate. She is sitting quietly in the hospital chair, in no acute distress. LEFT FOOT: There is a cast located on the left ankle. Distal sensation is intact. Capillary refill is brisk. NEURO: Gait not observed. Awake, alert, and oriented x 3. HEAD: Normocephalic; atraumatic. EYES: Pupils are round, equal, and reactive to light; EOM intact. ENT: No external ear discharge or lesions. No rhinorrhea or epistaxis. No mucosal lesions. CHEST: Regular chest respiration and excursion. SKIN: No lesions, erythema, or rashes noted. Laboratory Laboratory Results (Last CBC): 03/29/17 05:49 Imaging Radiology Findings 03/26/17 left ankle x-ray: 1. Postoperative changes from hardware removal in the distal fibula as above. 2. Soft tissue edema is an expected postoperative finding. No acute fracture is suspected. [place] Drug Monitoring Program Search Results: patient reviewed within database (Multiple prescribers. Persistent with pharmacy.) Assessment 1. Osteomyelitis of the left ankle status post ORIF 11/2016 which has required x 2 debridement. Recommendations 1. Discontinue OxyContin and increase Fentanyl patch dose to 62mcg/hr 2. Continue Oxycodone 10 mg x 4 hrs. Dragon Voice Recognition This chart was completed in part utilizing [employer]ation Voice Recognition Software. Random word insertions, pronoun errors, and incomplete sentences are an occasional consequence of this system due to software limitations and ambient noise. Any questions or concerns about the content, text or information contained within the body of this dictation should be directly addressed to the provider for clarification.
[2017-03-29] MEDS ORDERED: NURSING VERBAL MED ORDER ONE (10:15)
[2017-03-29] MEDS: FENTANYL 50 MCG/HR TDSY TD SCH (10:25)
[2017-03-29] MEDS: FENTANYL 12 MCG/HR TDSY TD SCH (10:25)
[2017-03-29] MEDS ORDERED: HYDROmorphone INJ 0.5 MG/0.5 ML SYR IV ONE (10:30)
[2017-03-29] MEDS: FENTANYL PATCH REMOVE & WASTE SCH (10:34)
--- NOTE | 2017-03-29 11:00 | Orthopedic Progress Note ---
Orthopedic Progress Note Date of Service Mar 29, 2017. Subjective Post OP Day: 3 Reports: feeling well Additional Notes: Pain appears to be under control presently. Pt in good spirts this AM. States that ID Team and Pain Management Team were in to see her this AM. Very agreeable to what Pain Management had to offer. No new complaints today. I asked Stacey Samano to be present to look at the wound. Objective calves soft nontender, A&O x3 Current splint removed. Wound covered with Adaptic which is stapled in place to keep Stimulan beads in wound. Wound edges appear benign from what I can see behind Adaptic. (Dr Fischer did not want Adaptic covering removed for this dressing change) Swelling is decreasing. No erythema noted. Moving her toes well. Sensation intact. Cap refill is less than 2 seconds. Wound redressed with Adaptic, 4x4's, and ABD's. New posterior splint applied. Pt tolerated fairly well. Began having spasms near the end of dressing change. Date Time Temp Pulse Resp B/P (MAP) Pulse Ox O2 Delivery O2 Flow Rate FiO2 03/29/17 06:54 36.7 62 16 150/89 (109) 98 Room Air 03/28/17 23:35 Room Air 03/28/17 22:20 36.6 64 16 132/77 (95) 98 Room Air 03/28/17 20:37 66 148/82 (104) 03/28/17 16:00 Room Air 03/28/17 15:52 36.9 67 17 140/86 (104) 96 Room Air Laboratory Results 24 Hours: Test 03/29/17 05:49 Hematocrit 32.9 % Hemoglobin 10.4 g/dL Prothromb Time International Ratio 1.1 Prothrombin Time 11.5 SECONDS Assessment & Plan Assessment: POD #3 s/p Left ankle irrigation and debridement; debridement of skin; debridement of fascia; debridement of peroneal tendons; saucerization of the distal lateral fibula; implantation of antibiotic laden Stimulan beads Plan: Appreciate Medicine, ID, and Pain Management services seeing patient Consult pending for Plastics regarding possibility for rotational flap or free flap coverage. Consult pending for Vascular Surgery Discussed Wound Care consult with Dr Fischer. No need for vac at this time PT/OT - NWB LLE - Pt independent - PT signed off. DVT prophylaxis - Warfarin and Plavix Inhouse Planning Pain Management: Percocet, Toradol, Dilaudid, other (Fentanyl patch) DVT Prophylaxis: Coumadin, other (PLavix)
--- NOTE | 2017-03-29 12:22 | Pre-Operative Consultation ---
History General Date of Service: Mar 29, 2017. (Gricelda Hernandes PA-C) HPI HPI: The patient is a 57 year old female being seen in consultation of left ankle wound. She states that she fell and broke her ankle in November. She underwent ORIF of a bimalleolar ankle fx in November, and due to recurrent infections has been and s/p I & D of the ankle x 3. Her most recent debridement was 03/26/17. We were consulted for consideration of free flap vs rotational flap. In addition to the patient's recurrent wound infections, she is a current smoker. She had been smoking a ppd, but now reports she averages about 3 cigarettes a day. She underwent bilateral femoral endarterectomy with iliac stenting 10/02/16 at [facility] and is currently on Plavix. Additionally, the patient takes Coumadin for atrial fibrillation. Infections in the past have been positive for mssa and clostridium. She has been on IV antibiotics and is being followed by ID. Patient reports her left groin incision also had post-op infection following her revascularization and this was treated with antibiotics and packing wound. Historian: patient (Gricelda Hernandes PA-C) Risk Assessment Daily beta ranjit use?: Yes (Gricelda Hernandes PA-C) Problem List Medical Problems: (1) Lower extremity edema Status: Acute (2) Trimalleolar fracture of ankle, closed Status: Acute (Gricelda Hernandes PA-C) Medical & Surgical History Past Medical History: PMH: HTN PVD sp surgery PAF on Coumadin Ongoing tobacco abuse Chronic hyponatremia Chronic anemia baseline hemoglobin 9-10 Osteomyelitis left lower extremity Past Surgical History: Orthopedic procedures debridement of wound Vascular procedures appendectomy Past Surgical History: orthopedic surgery (Gricelda Hernandes PA-C) Family History Family History: hypertension (Gricelda Hernandes PA-C) Social History Hx Tobacco Use In Past Year?: Yes Smoking Status: Current Every Day Smoker Drug Use: none Marital status: Housing status: lives with significant other Occupation status: other ([employer] employee) (Gricelda Hernandes PA-C) Immunizations Have You Had Influenza Vaccine: Unknown Have You Had Tetanus Vaccine: Yes Date Of Tetanus Immunization: Jun 29, 2006 History of Pneumococcal: Unknown History Hepatitis B Vaccine: Unknown (Gricelda Hernandes PA-C) Allergies Allergies: Coded Allergies: Adhesives (Verified Allergy, Mild, 03/26/17) Guanfacine (Verified Allergy, Unknown, 03/26/17) Nifedipine (Verified Allergy, Unknown, 03/26/17) Medications Current Inpatient Medications Current Inpatient Medications Medications (Trade) Dose Ordered Sig/Rosa Route Start Time Stop Time Status Last Admin Dose Admin Amlodipine Besylate (Norvasc Tab) 10 mg DAILY PO 03/27/17 09:00 04/26/17 08:59 03/29/17 08:27 10 MG Aspirin (Ecotrin Tab) 81 mg DAILY PO 03/27/17 09:00 04/26/17 08:59 03/29/17 08:26 81 MG Atorvastatin Calcium (Lipitor Tab) 80 mg HS PO 03/26/17 21:00 04/25/17 20:59 03/28/17 20:40 80 MG Bupropion HCl (Wellbutrin-Sr Tab) 150 mg DAILY PO 03/27/17 09:00 04/26/17 08:59 03/29/17 08:25 150 MG Clopidogrel Bisulfate (plAVix TAB) 75 mg DAILY PO 03/27/17 09:00 04/26/17 08:59 03/29/17 08:24 75 MG Fluoxetine HCl (Prozac Cap) 20 mg DAILY PO 03/27/17 09:00 04/26/17 08:59 03/29/17 08:25 20 MG Ondansetron HCl (Zofran Tab) 8 mg Q6HWA PRN PO 03/26/17 20:00 04/25/17 19:59 03/29/17 08:29 8 MG Pantoprazole Sodium (Protonix Tab) 40 mg DAILY PO 03/27/17 09:00 04/26/17 08:59 03/29/17 08:25 40 MG Sotalol HCl (Betapace Tab) 80 mg BID PO 03/26/17 21:00 04/25/17 20:59 03/29/17 08:24 80 MG Warfarin Sodium (Coumadin Tab) 5 mg DAILY@1600 PO 03/27/17 16:00 04/26/17 15:59 03/28/17 15:47 5 MG Ranitidine HCl (zANTac TAB) 300 mg HS PO 03/26/17 21:00 04/25/17 20:59 03/28/17 20:40 300 MG Acetaminophen (Tylenol Tab) 650 mg Q6H PRN PO 03/26/17 20:00 04/25/17 19:59 Magnesium Hydroxide (Milk Of Magnesia Susp) 30 ml Q6H PRN PO 03/26/17 20:00 04/25/17 19:59 Al Hydrox/Mg Hydrox/Simethicone (Maalox Max Susp) 15 ml Q4H PRN PO 03/26/17 20:00 04/25/17 19:59 Zolpidem Tartrate (Ambien Tab) 5 mg HSZ PRN PO 03/26/17 20:00 04/25/17 19:59 Multivitamins (Multivitamin Tab) 1 tab QAM PO 03/27/17 09:00 04/26/17 08:59 03/29/17 08:26 1 TAB Ferrous Gluconate (Ferrous Gluconate Tab) 324 mg DAILY PO 03/27/17 09:00 04/26/17 08:59 03/29/17 08:26 324 MG Docusate Sodium (coLACE CAP) 100 mg DAILY PO 03/27/17 09:00 04/26/17 08:59 03/29/17 08:24 100 MG Ketorolac Tromethamine (Toradol Inj) 15 mg Q6H PRN IV. 03/27/17 01:15 04/01/17 01:14 03/29/17 05:23 15 MG Piperacillin Sod/ Tazobactam Sod (Consult) 1 ea UD PRN N/A 03/27/17 08:45 04/26/17 08:44 Piperacillin Sod/ Tazobactam Sod 3.375 gm/Dextrose 115 ml @ 28.75 mls/ hr Q8H IV 03/27/17 14:00 05/08/17 13:59 03/29/17 05:23 28.75 MLS/HR Vancomycin HCl (Consult) 1 UD PRN N/A 03/27/17 08:45 04/26/17 08:44 Hydromorphone HCl (Dilaudid Inj) 0.5 mg Q4HWA PRN IV 03/27/17 11:15 04/10/17 11:14 03/29/17 08:15 0.5 MG Oxycodone HCl (Roxicodone Immediate Rel Tab) `1-2 tabs for pain 1 tab ... Q4HWA PRN PO 03/28/17 10:15 04/11/17 10:14 03/29/17 06:13 10 MG Vancomycin HCl 1000 mg/Sodium Chloride 270 ml @ 125 mls/hr Q10H IV 03/28/17 18:00 05/09/17 17:59 03/29/17 03:58 125 MLS/HR Fentanyl (Duragesic Patch) 50 mcg Q72H TD 03/29/17 10:00 04/12/17 09:59 03/29/17 10:25 50 MCG Miscellaneous (Fentanyl Patch Remove & Waste) 1 ea Q3D N/A 04/01/17 09:15 05/01/17 09:14 Miscellaneous Information (Check Fentanyl Patch Placement) 1 ea QS N/A 03/29/17 16:00 04/28/17 15:59 Fentanyl (Duragesic Patch) 12 mcg Q3D TD 03/29/17 10:00 04/12/17 09:59 03/29/17 10:25 12 MCG Miscellaneous (Fentanyl Patch Remove & Waste) 1 ea Q72H N/A 04/01/17 09:15 05/01/17 09:14 Miscellaneous Information (Check Fentanyl Patch Placement) 1 ea QS N/A 03/29/17 16:00 04/28/17 15:59 Potassium Chloride (Klor-Con M10) 40 meq NOW ONCE PO 03/29/17 12:30 03/29/17 12:31 (Gricelda Hernandes PA-C) Review of Systems Review of Systems Constitutional: no symptoms reported Eyes: reports: no symptoms ENT: reports: no symptoms reported Cardiovascular: reports: no symptoms reported Respiratory: reports: no symptoms reported Gastrointestinal: no symptoms reported Musculoskeletal: other (complains of pain LLE) Psychiatric: reports: no symptoms Endocrine: no symptoms (Gricelda Hernandes PA-C) All Other Symptoms All Other Systems: Reviewed and Negative (Gricelda Hernandes PA-C) Physical Exam Physical Exam General Appearance: + WD/WN, No distress Extremities: + other (LLE wound dressing intact, wound visualized by wound care picture- appears to have healthy wound edges with minimal fibrin, adaptic stapeled in place with antibiotic beads underneath. toes pink with sensation ), No slow capillary refill Skin Characteristics: No abnormal color, No cyanosis (Gricelda Hernandes PA-C) Diagnostics Labs Labs Results Past 24 Hours Test 03/29/17 05:49 Range/Units White Blood Count 7.93 4.8-10.8 K/uL Red Blood Count 3.37 4.2-5.4 M/uL Hemoglobin 10.4 12.0-16.0 g/dL Hematocrit 32.9 37-47 % Mean Corpuscular Volume 97.6 80-100 fL Mean Corpuscular Hemoglobin 30.9 25-34 pg Mean Corpuscular Hemoglobin Concent 31.6 32-36 g/dl RDW Standard Deviation 63.8 36.4-46.3 fL RDW Coefficient of Variation 18.1 11.5-14.5 % Platelet Count 272 130-400 K/uL Mean Platelet Volume 10.9 7.4-10.4 fL Prothrombin Time 11.5 9.0-12.0 SECONDS Prothromb Time International Ratio 1.1 0.9-1.1 (Gricelad Hernandes PA-C) Lab Interpretation Lab Interpretation: labs were reviewed (Gricelda Hernandes PA-C) Impression Assessment and Plan Assessment and Plan POD #3 s/p Left ankle irrigation and debridement; debridement of skin; debridement of fascia; debridement of peroneal tendons; saucerization of the distal lateral fibula; implantation of antibiotic laden Stimulan beads 1. Patient was seen and examined with Dr. Weinstein, and she has made recommendations for patient's treatment. Patient is poor candidate for local flap/graft closure due to ongoing infection and assumed poor blood flow. Could consider transfer to tertiary care center for a free flap. Importance of smoking cessation was discussed with the patient. Will continue to follow. (Gricelda Hernandes PA-C) Assessment and Plan Patient seen at bedside with Kenneth Hernandes PA-C this am. Original post op dressing was still intact; unable to be present at first dressing change. WOCN photo reviewed, shows large wound of left lateral ankle with abx beads in place. OR cultures/path still pending. No current vascular studies available. Wound discussed with Leon Valentin, who states wound is about 10 x4 cm, with defect in bone. Further orthopedic intervention felt to be likely. Patient is not felt to be a vac candidate per ortho. ID following. Only potential local flap options for a wound this size would be reverse soleus or dorsalis pedis which have a high failure rate, especially in a patient with PVD and active tobacco use. Would recommend evaluation at tertiary center for possible free flap to close space/improve blood flow to wound. Candidacy for this would depend on further vascular studies. Patient was counseled regarding absolute need for smoking cessation in order to facilitate healing. (Evangelina Weinstein MD)
[2017-03-29] MEDS ORDERED: POTASSIUM CHLORIDE 10 MEQ TABCR PO ONE (12:30)
--- NOTE | 2017-03-29 14:17 | Progress Note ---
Internal Med Progress Note Date of Service: Mar 29, 2017. Provider Documentation: SUBJECTIVE: The patient was seen and examined Complains of significant pain in left ankle Asking for more pain medication Pain is controlled now Denies any other complaints OBJECTIVE: Vital Signs-as noted below Exam: General-In moderate distress Eyes-normal ENT-Normal Neck-Supple Lungs-Clear to auscultate bilaterally Heart-Regular Abdomen-Benign,no masses,bowel sound present Extremities-No edema Left leg/ankle is bandaged Neuro-AAOx3 Lab data as noted below. ASSESSMENT & PLAN: Left lower extremity osteomyelitis, wound infection status post rpt. debridement hx ORIF L ankle fx 11/2016 POD #3 s/p Left ankle irrigation and debridement; debridement of skin; debridement of fascia; debridement of peroneal tendons; saucerization of the distal lateral fibula; implantation of antibiotic laden Stimulan beads ID follow-up evaluation by Dr. Bhatia for chronic leg infection-appreciate input Clinically well except for worsening pain Patient has been on a fentanyl patch for months now and feels that it is not working Pain therapist consulted by the primary -appreciate input Plastic surgery evaluation -pending Has been on IV Vanco and Zosyn-ID will recommend appropriate antibiotic and duration on discharge Hypertension stable Hx A. fib on Coumadin, patient slightly tachycardic , INR therapeutic History PVD status post surgery Continue home Sotalol Remains on upper side Expected to improve when pain is controlled Chronic hyponatremia Sodium is normalized now Monitor Chronic anemia, hemoglobin better than baseline Ongoing tobacco abuse Patient counseled to stop smoking DVT prophylaxis Coumadin INR goal 2-3 Vital Signs: Date Time Temp Pulse Resp B/P (MAP) Pulse Ox O2 Delivery O2 Flow Rate FiO2 03/29/17 06:54 36.7 62 16 150/89 (109) 98 Room Air 03/28/17 23:35 Room Air 03/28/17 22:20 36.6 64 16 132/77 (95) 98 Room Air 03/28/17 20:37 66 148/82 (104) 03/28/17 16:00 Room Air 03/28/17 15:52 36.9 67 17 140/86 (104) 96 Room Air Lab Results: Results Past 24 Hours Test 03/29/17 05:49 Range/Units White Blood Count 7.93 4.8-10.8 K/uL Red Blood Count 3.37 4.2-5.4 M/uL Hemoglobin 10.4 12.0-16.0 g/dL Hematocrit 32.9 37-47 % Mean Corpuscular Volume 97.6 80-100 fL Mean Corpuscular Hemoglobin 30.9 25-34 pg Mean Corpuscular Hemoglobin Concent 31.6 32-36 g/dl RDW Standard Deviation 63.8 36.4-46.3 fL RDW Coefficient of Variation 18.1 11.5-14.5 % Platelet Count 272 130-400 K/uL Mean Platelet Volume 10.9 7.4-10.4 fL Prothrombin Time 11.5 9.0-12.0 SECONDS Prothromb Time International Ratio 1.1 0.9-1.1
[2017-03-29 15:05] VITALS: BP 117/77; PULSE 63; TEMP 36.8; O2SAT 98
[2017-03-29] MEDS ORDERED: CHECK FENTANYL PATCH PLACEMENT SCH ×2 (16:00)
[2017-03-29] MEDS: WARFARIN SOD 5 MG TAB PO SCH (16:34)
[2017-03-29 20:53] VITALS: BP 115/80; PULSE 89
[2017-03-29] MEDS: ATORVASTATIN 40 MG TAB PO SCH (20:56)
[2017-03-29] MEDS: RANITIDINE HCL 150 MG TAB PO SCH (20:56)
[2017-03-29 23:15] VITALS: BP 128/70; PULSE 75; TEMP 36.8; O2SAT 96
[2017-03-29] MEDS ORDERED: VANCOMYCIN TROUGH ONE (23:30)
[2017-03-30] MEDS: OXYCODONE HCL IR 5 MG TAB (IMMEDIATE RELEASE) PO PRN ×6 (01:30→23:56)
[2017-03-30] MEDS: HYDROmorphone INJ 0.5 MG/0.5 ML SYR IV PRN ×5 (05:26→22:50)
[2017-03-30] MEDS: PIPERACILL/TAZOBAC IV 3.375 GM in DEXTROSE 5% 100ML IV SCH ×3 (05:26→22:05)
[2017-03-30 06:12] LABS: PROTHROMBIN TIME (PATIENT) 11.2 SECONDS (9.0-12.0)
[2017-03-30 06:13] LABS: HEMATOCRIT 32.2 % (37-47); MEAN CELL VOLUME 97.6 fL (80-100); MEAN CORPUSCULAR HEMOGLOBIN 31.8 pg (25-34); MEAN CORPUSCULAR HGB CONC 32.6 g/dl (32-36); MEAN PLATELET VOLUME 10.6 fL (7.4-10.4); PLATELET COUNT 229 K/uL (130-400); WHITE BLOOD COUNT 7.17 K/uL (4.8-10.8)
[2017-03-30 07:04] VITALS: BP 158/87; PULSE 69; TEMP 36.8; O2SAT 100
[2017-03-30] MEDS: CHECK FENTANYL PATCH PLACEMENT SCH ×4 (07:19→15:39)
[2017-03-30] MEDS: KETOROLAC TROMETHAMINE 15 MG/ML VIAL IV. PRN ×2 (07:34→13:48)
--- NOTE | 2017-03-30 08:11 | Orthopedic Progress Note ---
Orthopedic Progress Note Date of Service Mar 30, 2017. Subjective Post OP Day: 4 Reports: complaints (her pain is a 9/10), Denies: chest pain, SOB, nausea / vomiting, light headedness, calf pain Additional Notes: Patient states that her pain is a 9/10 on exam today. She did not receive her pain medication every 4 hours as she is suppose to. She states her last dose was 1:30AM and then her following dose was 7:30AM. She states if she gets the pain medication every 4 hours as directed this helps to control her pain. Objective N/V intact, splint C/D/I, capillary refill less than 2 sec., dressing C/D/I, A& O x3, toes mobile Date Time Temp Pulse Resp B/P (MAP) Pulse Ox O2 Delivery O2 Flow Rate FiO2 03/30/17 07:04 36.8 69 18 158/87 (110) 100 Room Air 03/29/17 23:25 Room Air 03/29/17 23:15 36.8 75 18 128/70 (89) 96 Room Air 03/29/17 20:53 89 115/80 (92) 03/29/17 16:15 Room Air 03/29/17 15:05 36.8 63 18 117/77 (90) 98 Room Air Laboratory Results 24 Hours: Test 03/30/17 05:39 Hematocrit 32.2 % Hemoglobin 10.5 g/dL Prothromb Time International Ratio 1.0 Prothrombin Time 11.2 SECONDS Assessment & Plan Assessment: POD #4 s/p Left ankle irrigation and debridement; debridement of skin; debridement of fascia; debridement of peroneal tendons; saucerization of the distal lateral fibula; implantation of antibiotic laden Stimulan beads Plan: Appreciate Medicine, ID, and Pain Management services seeing patient Consult Plastics regarding possibility for rotational flap or free flap coverage -Per Plastics, Only potential local flap options for a wound this size would be reverse soleus or dorsalis pedis which have a high failure rate, especially in a patient with PVD and active tobacco use. Would recommend evaluation at tertiary center for possible free flap to close space/improve blood flow to wound. Candidacy for this would depend on further vascular studies. Consult pending for Vascular Surgery Discussed Wound Care consult with Dr Fischer. -No need for vac at this time PT/OT - NWB LLE - Pt independent - PT signed off. DVT prophylaxis - Warfarin and Plavix Inhouse Planning Pain Management: Percocet, Toradol, Dilaudid, other (Fentanyl patch) DVT Prophylaxis: Coumadin, other (PLavix)
[2017-03-30] MEDS: PANTOprazole SOD 40 MG TAB PO SCH (09:24)
[2017-03-30] MEDS: AMLODIPINE BESYLATE 5 MG TAB PO SCH (09:24)
[2017-03-30] MEDS: MULTIVITAMIN TAB PO SCH (09:24)
[2017-03-30] MEDS: ASPIRIN 81 MG ECTAB PO SCH (09:24)
[2017-03-30] MEDS: FLUOXETINE HCL 20 MG CAP PO SCH (09:24)
[2017-03-30] MEDS: CLOPIDOGREL BISULFATE 75 MG TAB PO SCH (09:25)
[2017-03-30] MEDS: DOCUSATE SODIUM 100 MG CAP PO SCH (09:25)
[2017-03-30] MEDS: BuPROPion SR 150 MG TABCR PO SCH (09:25)
[2017-03-30] MEDS: SOTALOL HCL 80 MG TAB PO SCH ×2 (09:25→22:06)
[2017-03-30] MEDS: FERROUS GLUCONATE 324 MG TAB PO SCH (09:25)
[2017-03-30] MEDS: ONDANSETRON 8 MG TAB PO PRN (09:26)
--- NOTE | 2017-03-30 10:00 | Progress Note ---
Progress Note Date of Service Mar 30, 2017. Progress Note Continuing to complain of pain today LLE wound dressed cx show skin jarod Discussed with patient that local flaps not really an option given smoking/ vascular status Will need tertiary referral for eval for free flap Would recommend holding off on vascular consult at this point as microsurgeon would likely order own studies She understands she may not be a candidate for reconstruction
[2017-03-30 10:37] LABS: CREATININE 1.1 mg/dl (0.60-1.20)
[2017-03-30 15:27] VITALS: BP 111/72; PULSE 66; TEMP 37; O2SAT 99
[2017-03-30] MEDS: WARFARIN SOD 7.5 MG TAB PO SCH (15:38)
--- NOTE | 2017-03-30 16:26 | Progress Note ---
Medicine Progress Note Date & Time of Visit: Mar 30, 2017 at 16:26. Subjective Patient reports having ongoing pain in her leg, states it is fairly well controlled when she gets her medications on time. No complaints otherwise. Eating and drinking without difficulty. Has been able to move her bowels. No overnight events noted. Objective Last 8 Hrs Date Time Temp Pulse Resp B/P (MAP) Pulse Ox O2 Delivery O2 Flow Rate FiO2 03/30/17 15:27 37.0 66 18 111/72 (85) 99 Room Air Physical Exam: GENERAL: Patient is in no acute distress. HEENT: No acute trauma, normocephalic, mucous membranes moist, no nasal congestion, no scleral icterus. NECK: No stridor, trachea is midline. LUNGS: Clear to auscultation bilaterally, no wheeze, no rhonchi, breath sounds equal. HEART: Without murmurs gallops or rubs, regular rate and rhythm. ABDOMEN: Soft, nontender, bowel sounds positive EXTREMITIES: No cyanosis or edema, left LE wrapped in dressing NEUROLOGIC: Oriented x 3, no acute motor or sensory deficits, no focal weakness. SKIN: No rash, no jaundice, no diaphoresis. Laboratory Results: Last 24 Hours Test 03/29/17 23:15 03/30/17 05:39 Vancomycin Level Trough 26.2 mcg/ml White Blood Count 7.17 K/uL Red Blood Count 3.30 M/uL Hemoglobin 10.5 g/dL Hematocrit 32.2 % Mean Corpuscular Volume 97.6 fL Mean Corpuscular Hemoglobin 31.8 pg Mean Corpuscular Hemoglobin Concent 32.6 g/dl RDW Standard Deviation 64.8 fL RDW Coefficient of Variation 18.2 % Platelet Count 229 K/uL Mean Platelet Volume 10.6 fL Prothrombin Time 11.2 SECONDS Prothromb Time International Ratio 1.0 Creatinine 1.10 mg/dl Est Creatinine Clear Calc Drug Dose 53.6 ml/min Estimated GFR () 64.5 Estimated GFR (Non- 55.7 Assessment & Plan Left lower extremity osteomyelitis: wound infection status post repeat debridement -hx of ORIF L ankle fx 11/2016 -POD #4 s/p left ankle irrigation and debridement; debridement of skin; debridement of fascia; debridement of peroneal tendons; saucerization of the distal lateral fibula; implantation of antibiotic laden Stimulan beads -ID consulted and following -pain fairly controlled per patient as long as all meds given on schedule -pain management consulted and following -Plastic surgery also consulted, considering flap -was on IV Vanco and Zosyn, now off vanco HTN: -continue amlodipine PVD: -s/p prior stenting surgery -on statin, ASA, plavix Hx of A Fib: -currently in sinus, rate controlled -on coumadin with subtherapeutic INR, will increase dose -continue home Sotalol Chronic hyponatremia: -sodium is normalized -continue monitor Chronic anemia: -hemoglobin stable, better than baseline Ongoing tobacco abuse: -patient counseled to stop smoking DVT prophylaxis: -on coumadin with INR goal 2-3 Current Inpatient Medications: Current Inpatient Medications Medications (Trade) Dose Ordered Sig/Rosa Route Start Time Stop Time Status Last Admin Dose Admin Amlodipine Besylate (Norvasc Tab) 10 mg DAILY PO 03/27/17 09:00 04/26/17 08:59 03/30/17 09:24 10 MG Aspirin (Ecotrin Tab) 81 mg DAILY PO 03/27/17 09:00 04/26/17 08:59 03/30/17 09:24 81 MG Atorvastatin Calcium (Lipitor Tab) 80 mg HS PO 03/26/17 21:00 04/25/17 20:59 03/29/17 20:56 80 MG Bupropion HCl (Wellbutrin-Sr Tab) 150 mg DAILY PO 03/27/17 09:00 04/26/17 08:59 03/30/17 09:25 150 MG Clopidogrel Bisulfate (plAVix TAB) 75 mg DAILY PO 03/27/17 09:00 04/26/17 08:59 03/30/17 09:25 75 MG Fluoxetine HCl (Prozac Cap) 20 mg DAILY PO 03/27/17 09:00 04/26/17 08:59 03/30/17 09:24 20 MG Ondansetron HCl (Zofran Tab) 8 mg Q6HWA PRN PO 03/26/17 20:00 04/25/17 19:59 03/30/17 09:26 8 MG Pantoprazole Sodium (Protonix Tab) 40 mg DAILY PO 03/27/17 09:00 04/26/17 08:59 03/30/17 09:24 40 MG Sotalol HCl (Betapace Tab) 80 mg BID PO 03/26/17 21:00 04/25/17 20:59 03/30/17 09:25 80 MG Ranitidine HCl (zANTac TAB) 300 mg HS PO 03/26/17 21:00 04/25/17 20:59 03/29/17 20:56 300 MG Acetaminophen (Tylenol Tab) 650 mg Q6H PRN PO 03/26/17 20:00 04/25/17 19:59 Magnesium Hydroxide (Milk Of Magnesia Susp) 30 ml Q6H PRN PO 03/26/17 20:00 04/25/17 19:59 Al Hydrox/Mg Hydrox/Simethicone (Maalox Max Susp) 15 ml Q4H PRN PO 03/26/17 20:00 04/25/17 19:59 Zolpidem Tartrate (Ambien Tab) 5 mg HSZ PRN PO 03/26/17 20:00 04/25/17 19:59 Multivitamins (Multivitamin Tab) 1 tab QAM PO 03/27/17 09:00 04/26/17 08:59 03/30/17 09:24 1 TAB Ferrous Gluconate (Ferrous Gluconate Tab) 324 mg DAILY PO 03/27/17 09:00 04/26/17 08:59 03/30/17 09:25 324 MG Docusate Sodium (coLACE CAP) 100 mg DAILY PO 03/27/17 09:00 04/26/17 08:59 03/30/17 09:25 100 MG Ketorolac Tromethamine (Toradol Inj) 15 mg Q6H PRN IV. 03/27/17 01:15 04/01/17 01:14 03/30/17 13:48 15 MG Piperacillin Sod/ Tazobactam Sod (Consult) 1 ea UD PRN N/A 03/27/17 08:45 04/26/17 08:44 Piperacillin Sod/ Tazobactam Sod 3.375 gm/Dextrose 115 ml @ 28.75 mls/ hr Q8H IV 03/27/17 14:00 05/08/17 13:59 03/30/17 13:52 28.75 MLS/HR Hydromorphone HCl (Dilaudid Inj) 0.5 mg Q4HWA PRN IV 03/27/17 11:15 04/10/17 11:14 03/30/17 13:48 0.5 MG Oxycodone HCl (Roxicodone Immediate Rel Tab) `1-2 tabs for pain 1 tab ... Q4HWA PRN PO 03/28/17 10:15 04/11/17 10:14 03/30/17 15:38 10 MG Fentanyl (Duragesic Patch) 50 mcg Q72H TD 03/29/17 10:00 04/12/17 09:59 03/29/17 10:25 50 MCG Miscellaneous (Fentanyl Patch Remove & Waste) 1 ea Q3D N/A 04/01/17 09:15 05/01/17 09:14 Miscellaneous Information (Check Fentanyl Patch Placement) 1 ea QS N/A 03/29/17 16:00 04/28/17 15:59 03/30/17 15:39 1 EA Fentanyl (Duragesic Patch) 12 mcg Q3D TD 03/29/17 10:00 04/12/17 09:59 03/29/17 10:25 12 MCG Miscellaneous (Fentanyl Patch Remove & Waste) 1 ea Q72H N/A 04/01/17 09:15 05/01/17 09:14 Miscellaneous Information (Check Fentanyl Patch Placement) 1 ea QS N/A 03/29/17 16:00 04/28/17 15:59 03/30/17 15:39 1 EA Warfarin Sodium (Coumadin Tab) 7.5 mg DAILY@1600 PO 03/30/17 16:00 04/26/17 15:59 03/30/17 15:38 7.5 MG
[2017-03-30 22:02] VITALS: BP 116/70; PULSE 70
[2017-03-30] MEDS: RANITIDINE HCL 150 MG TAB PO SCH (22:06)
[2017-03-30] MEDS: ATORVASTATIN 40 MG TAB PO SCH (22:06)
[2017-03-30 23:09] VITALS: BP 129/76; PULSE 69; TEMP 36.7; O2SAT 99
[2017-03-31] MEDS: CHECK FENTANYL PATCH PLACEMENT SCH ×8 (00:23→23:39)
[2017-03-31] MEDS: KETOROLAC TROMETHAMINE 15 MG/ML VIAL IV. PRN ×3 (01:28→20:58)
[2017-03-31] MEDS: HYDROmorphone INJ 0.5 MG/0.5 ML SYR IV PRN ×4 (04:24→23:37)
[2017-03-31] MEDS: PIPERACILL/TAZOBAC IV 3.375 GM in DEXTROSE 5% 100ML IV SCH ×3 (05:36→21:55)
[2017-03-31 05:41] LABS: HEMATOCRIT 30.7 % (37-47); MEAN CELL VOLUME 98.1 fL (80-100); MEAN CORPUSCULAR HEMOGLOBIN 33.2 pg (25-34); MEAN CORPUSCULAR HGB CONC 33.9 g/dl (32-36); MEAN PLATELET VOLUME 10.5 fL (7.4-10.4); PLATELET COUNT 211 K/uL (130-400); RED BLOOD COUNT 3.13 M/uL (4.2-5.4); WHITE BLOOD COUNT 6.79 K/uL (4.8-10.8)
[2017-03-31] MEDS: OXYCODONE HCL IR 5 MG TAB (IMMEDIATE RELEASE) PO PRN ×4 (05:42→20:13)
[2017-03-31 05:55] LABS: INR 1.1 (0.9-1.1)
[2017-03-31 07:34] VITALS: BP 157/84; PULSE 69; TEMP 36.5; O2SAT 99
[2017-03-31] MEDS: ASPIRIN 81 MG ECTAB PO SCH (09:06)
[2017-03-31] MEDS: CLOPIDOGREL BISULFATE 75 MG TAB PO SCH (09:06)
[2017-03-31] MEDS: SOTALOL HCL 80 MG TAB PO SCH ×2 (09:06→20:59)
[2017-03-31] MEDS: DOCUSATE SODIUM 100 MG CAP PO SCH (09:06)
[2017-03-31] MEDS: BuPROPion SR 150 MG TABCR PO SCH (09:06)
[2017-03-31] MEDS: FLUOXETINE HCL 20 MG CAP PO SCH (09:07)
[2017-03-31] MEDS: FERROUS GLUCONATE 324 MG TAB PO SCH (09:07)
[2017-03-31] MEDS: MULTIVITAMIN TAB PO SCH (09:07)
[2017-03-31] MEDS: AMLODIPINE BESYLATE 5 MG TAB PO SCH (09:07)
[2017-03-31] MEDS: PANTOprazole SOD 40 MG TAB PO SCH (09:08)
--- NOTE | 2017-03-31 09:40 | Progress Note ---
Subjective Date of Service: Mar 31, 2017. Subjective pt wound with reece sensitive E. faecalis. She is currently on zosyn, vanco held secondary to elevated level, 26.2 03/29. She does not wish to continue with IV abx at home. plastic surgery eval noted. afebrile. wbc nml, improved. no overnight events. Problem List Medical Problems: (1) Lower extremity edema Status: Acute (2) Trimalleolar fracture of ankle, closed Status: Acute Objective Vital Signs Date Time Temp Pulse Resp B/P (MAP) Pulse Ox O2 Delivery O2 Flow Rate FiO2 03/31/17 07:34 36.5 69 16 157/84 (108) 99 Room Air 03/31/17 00:00 Room Air 03/30/17 23:09 36.7 69 16 129/76 (93) 99 Room Air 03/30/17 22:02 70 116/70 (85) 03/30/17 16:30 Room Air 03/30/17 15:27 37.0 66 18 111/72 (85) 99 Room Air Laboratory Results Item Value Date Time Gram Stain - Final Resulted 03/26/17 1826 Drainage-Deep Ankle Left Last 24 Hours Test 03/31/17 05:11 White Blood Count 6.79 K/uL Red Blood Count 3.13 M/uL Hemoglobin 10.4 g/dL Hematocrit 30.7 % Mean Corpuscular Volume 98.1 fL Mean Corpuscular Hemoglobin 33.2 pg Mean Corpuscular Hemoglobin Concent 33.9 g/dl RDW Standard Deviation 65.7 fL RDW Coefficient of Variation 18.1 % Platelet Count 211 K/uL Mean Platelet Volume 10.5 fL Prothrombin Time 12.0 SECONDS Prothromb Time International Ratio 1.1 Assessment and Plan (1) Infection of prosthesis Assessment & Plan: for vac. will need continued wound care follow up post d/c. will need long course of abx. will plan to continue with po augmentin at home . will follow in wound center as well. will need prolonged abx, 6 weeks + ok for d/c on augmentin 875mg po bid when medically stable. (2) Dehiscence of closure of skin
[2017-03-31 15:16] VITALS: BP 141/78; PULSE 66; TEMP 36.9; O2SAT 98
[2017-03-31] MEDS: WARFARIN SOD 7.5 MG TAB PO SCH (15:47)
--- NOTE | 2017-03-31 16:48 | Orthopedic Progress Note ---
Orthopedic Progress Note Date of Service Mar 31, 2017. Subjective Post OP Day: 5 Reports: feeling well, Denies: complaints Additional Notes: Multiple questions about future plans. All questions answered and patient and satisfied. US ordered for today by Dr Maya. Objective splint C/D/I, dressing C/D/I, A&O x3, toes mobile Date Time Temp Pulse Resp B/P (MAP) Pulse Ox O2 Delivery O2 Flow Rate FiO2 03/31/17 15:16 36.9 66 20 141/78 (99) 98 Room Air 03/31/17 08:00 Room Air 03/31/17 07:34 36.5 69 16 157/84 (108) 99 Room Air 03/31/17 00:00 Room Air 03/30/17 23:09 36.7 69 16 129/76 (93) 99 Room Air 03/30/17 22:02 70 116/70 (85) Laboratory Results 24 Hours: Test 03/31/17 05:11 Hematocrit 30.7 % Hemoglobin 10.4 g/dL Prothromb Time International Ratio 1.1 Prothrombin Time 12.0 SECONDS Assessment & Plan Assessment: POD #5 s/p Left ankle irrigation and debridement; debridement of skin; debridement of fascia; debridement of peroneal tendons; saucerization of the distal lateral fibula; implantation of antibiotic laden Stimulan beads Plan: Hoping for possible discharge tomorrow. Oral antibx for infection which the patient already has at home. Will talk with pain management for final plans for home use of fentanyl patch and OxyIR. Appreciate Medicine, ID, and Pain Management services seeing patient Plastics consulted regarding possibility for rotational flap or free flap coverage -Per Plastics, Only potential local flap options for a wound this size would be reverse soleus or dorsalis pedis which have a high failure rate, especially in a patient with PVD and active tobacco use. Would recommend evaluation at tertiary center for possible free flap to close space/improve blood flow to wound. Candidacy for this would depend on further vascular studies. (I SPOKE WITH MORGAN VAZQUEZ PA-C TODAY, 03/31/17, WHO HAS TALKED TO [facility]. DR PRADO COMES TO [place] AND POSSIBLE FOR PT TO SEE HIM HERE FOR WOUND EVAL) Consult pending for Vascular Surgery - Ultrasound ordered and will be done tonight. Discussed Wound Care consult with Dr Fischer. -No need for vac at this time PT/OT - NWB LLE - Pt independent - PT signed off. DVT prophylaxis - Warfarin and Plavix Inhouse Planning Pain Management: Percocet, Toradol, Dilaudid, other (Fentanyl patch) DVT Prophylaxis: Coumadin, other (PLavix) Discharge Planning Discharge Planning: home with home health
--- NOTE | 2017-03-31 19:01 | Progress Note ---
Medicine Progress Note Date & Time of Visit: Mar 31, 2017 at 19:01. Subjective Patient reports feeling ok, states her pain is fairly controlled on current regimen but that she would like to speak to pain management. No overnight events noted. She states she had a sleeping pill last night that was very helpful. No complaints of CP, SOB, CHAVIS, dizziness/lightheadedness. Appetite has been good. Objective Last 8 Hrs Date Time Temp Pulse Resp B/P (MAP) Pulse Ox O2 Delivery O2 Flow Rate FiO2 03/31/17 15:40 Room Air 03/31/17 15:16 36.9 66 20 141/78 (99) 98 Room Air Physical Exam: GENERAL: Patient is in no acute distress. HEENT: No acute trauma, normocephalic, mucous membranes moist, no nasal congestion, no scleral icterus. NECK: No stridor, trachea is midline. LUNGS: Clear to auscultation bilaterally, no wheeze, no rhonchi, breath sounds equal. HEART: Without murmurs gallops or rubs, regular rate and rhythm. ABDOMEN: Soft, nontender, bowel sounds positive EXTREMITIES: No cyanosis or edema, left LE wrapped in dressing NEUROLOGIC: Oriented x 3, no acute motor or sensory deficits, no focal weakness. SKIN: No rash, no jaundice, no diaphoresis. Laboratory Results: Last 24 Hours Test 03/31/17 05:11 White Blood Count 6.79 K/uL Red Blood Count 3.13 M/uL Hemoglobin 10.4 g/dL Hematocrit 30.7 % Mean Corpuscular Volume 98.1 fL Mean Corpuscular Hemoglobin 33.2 pg Mean Corpuscular Hemoglobin Concent 33.9 g/dl RDW Standard Deviation 65.7 fL RDW Coefficient of Variation 18.1 % Platelet Count 211 K/uL Mean Platelet Volume 10.5 fL Prothrombin Time 12.0 SECONDS Prothromb Time International Ratio 1.1 Assessment & Plan Left lower extremity osteomyelitis: wound infection status post repeat debridement -hx of ORIF L ankle fx 11/2016 -POD #5 s/p left ankle irrigation and debridement; debridement of skin; debridement of fascia; debridement of peroneal tendons; saucerization of the distal lateral fibula; implantation of antibiotic laden Stimulan beads -ID consulted and following -pain fairly controlled per patient as long as all meds given on schedule -pain management consulted and following -Plastic surgery also consulted, considering flap/further surgery possibly here vs tertiary care facility -was on IV Vanco and Zosyn, now off vanco, per ID note the patient can be discharged on PO abx HTN: -continue amlodipine PVD: -s/p prior stenting surgery -on statin, ASA, plavix Hx of A Fib: -currently in sinus, rate controlled -on coumadin with subtherapeutic INR, increased dose to 7.5; INR still low at 1.1 -continue home Sotalol Chronic hyponatremia: -sodium is normalized -continue monitor Chronic anemia: -hemoglobin stable, better than baseline Ongoing tobacco abuse: -smoking cessation encouraged DVT prophylaxis: -on coumadin with INR goal 2-3 Current Inpatient Medications: Current Inpatient Medications Medications (Trade) Dose Ordered Sig/Rosa Route Start Time Stop Time Status Last Admin Dose Admin Amlodipine Besylate (Norvasc Tab) 10 mg DAILY PO 03/27/17 09:00 04/26/17 08:59 03/31/17 09:07 10 MG Aspirin (Ecotrin Tab) 81 mg DAILY PO 03/27/17 09:00 04/26/17 08:59 03/31/17 09:06 81 MG Atorvastatin Calcium (Lipitor Tab) 80 mg HS PO 03/26/17 21:00 04/25/17 20:59 03/30/17 22:06 80 MG Bupropion HCl (Wellbutrin-Sr Tab) 150 mg DAILY PO 03/27/17 09:00 04/26/17 08:59 03/31/17 09:06 150 MG Clopidogrel Bisulfate (plAVix TAB) 75 mg DAILY PO 03/27/17 09:00 04/26/17 08:59 03/31/17 09:06 75 MG Fluoxetine HCl (Prozac Cap) 20 mg DAILY PO 03/27/17 09:00 04/26/17 08:59 03/31/17 09:07 20 MG Ondansetron HCl (Zofran Tab) 8 mg Q6HWA PRN PO 03/26/17 20:00 04/25/17 19:59 03/30/17 09:26 8 MG Pantoprazole Sodium (Protonix Tab) 40 mg DAILY PO 03/27/17 09:00 04/26/17 08:59 03/31/17 09:08 40 MG Sotalol HCl (Betapace Tab) 80 mg BID PO 03/26/17 21:00 04/25/17 20:59 03/31/17 09:06 80 MG Ranitidine HCl (zANTac TAB) 300 mg HS PO 03/26/17 21:00 04/25/17 20:59 03/30/17 22:06 300 MG Acetaminophen (Tylenol Tab) 650 mg Q6H PRN PO 03/26/17 20:00 04/25/17 19:59 Magnesium Hydroxide (Milk Of Magnesia Susp) 30 ml Q6H PRN PO 03/26/17 20:00 04/25/17 19:59 Al Hydrox/Mg Hydrox/Simethicone (Maalox Max Susp) 15 ml Q4H PRN PO 03/26/17 20:00 04/25/17 19:59 Zolpidem Tartrate (Ambien Tab) 5 mg HSZ PRN PO 03/26/17 20:00 04/25/17 19:59 03/30/17 23:56 5 MG Multivitamins (Multivitamin Tab) 1 tab QAM PO 03/27/17 09:00 04/26/17 08:59 03/31/17 09:07 1 TAB Ferrous Gluconate (Ferrous Gluconate Tab) 324 mg DAILY PO 03/27/17 09:00 04/26/17 08:59 03/31/17 09:07 324 MG Docusate Sodium (coLACE CAP) 100 mg DAILY PO 03/27/17 09:00 04/26/17 08:59 03/31/17 09:06 100 MG Ketorolac Tromethamine (Toradol Inj) 15 mg Q6H PRN IV. 03/27/17 01:15 04/01/17 01:14 03/31/17 13:01 15 MG Piperacillin Sod/ Tazobactam Sod (Consult) 1 ea UD PRN N/A 03/27/17 08:45 04/26/17 08:44 Piperacillin Sod/ Tazobactam Sod 3.375 gm/Dextrose 115 ml @ 28.75 mls/ hr Q8H IV 03/27/17 14:00 05/08/17 13:59 03/31/17 13:59 28.75 MLS/HR Hydromorphone HCl (Dilaudid Inj) 0.5 mg Q4HWA PRN IV 03/27/17 11:15 04/10/17 11:14 03/31/17 17:55 0.5 MG Oxycodone HCl (Roxicodone Immediate Rel Tab) `1-2 tabs for pain 1 tab ... Q4HWA PRN PO 03/28/17 10:15 04/11/17 10:14 03/31/17 15:12 10 MG Fentanyl (Duragesic Patch) 50 mcg Q72H TD 03/29/17 10:00 04/12/17 09:59 03/29/17 10:25 50 MCG Miscellaneous (Fentanyl Patch Remove & Waste) 1 ea Q3D N/A 04/01/17 09:15 05/01/17 09:14 Miscellaneous Information (Check Fentanyl Patch Placement) 1 ea QS N/A 03/29/17 16:00 04/28/17 15:59 03/31/17 15:46 1 EA Fentanyl (Duragesic Patch) 12 mcg Q3D TD 03/29/17 10:00 04/12/17 09:59 03/29/17 10:25 12 MCG Miscellaneous (Fentanyl Patch Remove & Waste) 1 ea Q72H N/A 04/01/17 09:15 05/01/17 09:14 Miscellaneous Information (Check Fentanyl Patch Placement) 1 ea QS N/A 03/29/17 16:00 04/28/17 15:59 03/31/17 15:46 1 EA Warfarin Sodium (Coumadin Tab) 7.5 mg DAILY@1600 PO 03/30/17 16:00 04/26/17 15:59 03/31/17 15:47 7.5 MG
[2017-03-31] MEDS: RANITIDINE HCL 150 MG TAB PO SCH (20:58)
[2017-03-31] MEDS: ATORVASTATIN 40 MG TAB PO SCH (20:58)
[2017-03-31 21:00] VITALS: BP 132/82; PULSE 66
--- NOTE | 2017-03-31 21:28 | DIAGNOSTIC IMAGING REPORT ---
BILATERAL LOWER EXTREMITY ARTERIAL DOPPLER ULTRASOUND CLINICAL HISTORY: Nonhealing ulcer. Left ankle infection. COMPARISON STUDY: Bilateral lower extremity arterial Doppler ultrasound October 08, 2016. FINDINGS: The patient deferred ankle to brachial indices. Evaluation of the left lower extremity was compromised due to the bandage. There is biphasic flow within the right common femoral artery. There is monophasic flow within the right superficial femoral, popliteal, posterior tibial and peroneal vessels. There is significantly diminished flow within the right anterior tibial artery. There is flow within the right dorsalis pedis. Monophasic flow within the left common femoral artery raises the possibility of inflow disease. No elevated velocities were identified on this examination within either lower extremity. However, there is significantly dampened, monophasic flow within the left superficial femoral, popliteal, posterior tibial, anterior tibial and peroneal arteries. IMPRESSION: 1. Markedly dampened, monophasic flow throughout the left lower extremity, as described above. 2. Findings suggestive of inflow disease on the left. 3. Dampened, monophasic flow within the right lower extremity although more severe on the left. Electronically signed by: Diogo Johnson M.D. 03/31/2017 9:27 PM Dictated Date/Time: 03/31/2017 9:22 PM
[2017-03-31 23:24] VITALS: BP 127/77; PULSE 65; TEMP 36.6; O2SAT 98
[2017-04-01] MEDS: OXYCODONE HCL IR 5 MG TAB (IMMEDIATE RELEASE) PO PRN ×4 (01:05→15:52)
[2017-04-01] MEDS: HYDROmorphone INJ 0.5 MG/0.5 ML SYR IV PRN ×2 (04:26→13:06)
[2017-04-01] MEDS: PIPERACILL/TAZOBAC IV 3.375 GM in DEXTROSE 5% 100ML IV SCH ×2 (06:02→13:35)
[2017-04-01 07:32] VITALS: BP 152/82; PULSE 70; TEMP 36.9; O2SAT 97
[2017-04-01] MEDS: CHECK FENTANYL PATCH PLACEMENT SCH ×4 (08:08→15:54)
--- NOTE | 2017-04-01 08:13 | Orthopedic Progress Note ---
Orthopedic Progress Note Date of Service Apr 01, 2017. Subjective Reports: feeling well, Denies: complaints, chest pain, SOB, nausea / vomiting, light headedness, calf pain Additional Notes: Pain diminished with improved control. No fevers or chills. Objective calves soft nontender, N/V intact, dressing C/D/I, A&O x3, toes mobile Soft dressing in place after Doppler studies completed last evening. Toes pink and warm. Splint removed and soft dressing is dry. Date Time Temp Pulse Resp B/P (MAP) Pulse Ox O2 Delivery O2 Flow Rate FiO2 04/01/17 07:32 36.9 70 16 152/82 (105) 97 Room Air 04/01/17 00:35 Room Air 03/31/17 23:24 36.6 65 16 127/77 (94) 98 Room Air 03/31/17 21:00 66 132/82 (99) 03/31/17 15:40 Room Air 03/31/17 15:16 36.9 66 20 141/78 (99) 98 Room Air Assessment & Plan Assessment: POD #6 s/p Left ankle irrigation and debridement; debridement of skin; debridement of fascia; debridement of peroneal tendons; saucerization of the distal lateral fibula; implantation of antibiotic laden Stimulan beads Infected nonunion lateral malleolus fracture S/P removal of hardware due to infection Lateral ankle skin loss secondary to infection and wound necrosis PVD with small vessel disease Tobacco abuse Plan: Possible discharge today after final vascular service opinion. Oral antibx for infection which the patient already has at home. Will talk with pain management for final plans for home use of fentanyl patch and OxyIR. Appreciate Medicine, ID, and Pain Management services seeing patient Plastics consulted regarding possibility for rotational flap or free flap coverage -Per Plastics, Only potential local flap options for a wound this size would be reverse soleus or dorsalis pedis which have a high failure rate, especially in a patient with PVD and active tobacco use. Would recommend evaluation at tertiary center for possible free flap to close space/improve blood flow to wound. Candidacy for this would depend on further vascular studies. (I SPOKE WITH MORGAN VAZQUEZ PA-C TODAY, 03/31/17, WHO HAS TALKED TO [facility]. DR PRADO COMES TO [place] AND POSSIBLE FOR PT TO SEE HIM HERE FOR WOUND EVAL) Consult pending for Vascular Surgery - Ultrasound completed No need for Wound Care at this time -No need for vac. S/P anbx bead placement PT/OT - NWB LLE - Pt independent - PT signed off. DVT prophylaxis - Warfarin and Plavix Inhouse Planning Pain Management: Percocet, Toradol, Dilaudid, other (Fentanyl patch) DVT Prophylaxis: Coumadin, other (PLavix) Discharge Planning Discharge Planning: home with home health
--- NOTE | 2017-04-01 08:27 | Discharge Instructions ---
Discharge Instructions Date of Service Apr 01, 2017. Admission Reason for Admission: Left Ankle Infection Discharge Discharge Diagnosis / Problem: Left Ankle Infection Discharge Goals Goal(s): Decrease discomfort, Improve function Activity Recommendations Activity Limitations: per Instructions/Follow-up section Weightbearing Status: Left non-weightbearing . Instructions / Follow-Up Instructions / Follow-Up If you have a prescription for Percocet at home, please do not use this medication at this time. This medicine has Tylenol in it and cannot be taken every 4 hours if you are taking 2 tablets at a time. You will be taking 62mcg of Fentanyl as you did in the hospital. Continue to use the 50mcg and 12mcg patches together at the same times. Resume your INR draws per your Coumadin Clinic. Please call tomorrow to set up your next INR draw with Home Health. Keep dressing clean and dry. You may shower if you keep a waterproof cover over the dressing. Do not soak the wound. The dressing will need changed regularly by Home Health Services (Wet to dry dressings) or by yourself every other day. No weight on the left foot. Use crutches or walker or wheelchair for ambulation etc. Follow up with Dr Fischer in 1 week. The office will be calling you with appointment information. If you don't hear from them by Wednesday, please call the office to arrange an appointment. You will be seeing one of our nurses for a dressing change and wound check. Follow up with Dr. Bhatia (Infectious Disease) Call for an appointment. [phone] Maya or Nimo Brown PA-C next week on 04/08/17 at 9:15AM. Call if you need to change the appointment. [phone] Dr[address] Weinstein's office (plastic surgery) will call you with information regarding an appointment with Dr. Pacheco for possible need for further wound coverage. Call the office if you are having fever 101.5 or greater, increased drainage from the wound, increased redness of wound. (Of noteWith the Stimulan beads that you have implanted in your ankle, you may have some increased drainage due to the beads starting to desolve) Current Hospital Diet Patient's current hospital diet: AHA Diet (Heart Healthy) Discharge Diet Recommended Diet: AHA Diet (Heart Healthy) Procedures Procedures Performed: Left Ankle Incision and Drainage of bone, muscle, ligament, and tendon; Implantation of Stimulan Beads in Left Lateral Ankle Pending Studies Studies pending at discharge: no Medical Emergencies . Who to Call and When: Medical Emergencies: If at any time you feel your situation is an emergency, please call 911 immediately. . Non-Emergent Contact Non-Emergency issues call your: Surgeon Call Non-Emergent contact if: temperature is above 101.5, your pain is not controlled, your pain is worsening, wound has increased drainage, wound has increased redness . "Provider Documentation" section prepared by Skyler Arrington. . VTE Core Measure Inpt VTE Proph given/why not?: Warfarin (Coumadin), Other Anticoagulation ( Plavix) [place] Drug Monitoring Program Search Results: patient reviewed within database, see additional documentation Drug Monitoring Findings: Patient receiving Percocet 5/325 and Fentanyl patch from Dr Woods. Most recent Rx's were 03/23/17 for Percocet and 03/15/17 for Fentanyl. Percocet will be discontinued upon discharge. Pt understands that she will need to return to Dr Woods for further pain medications in the future.
[2017-04-01] MEDS ORDERED: FNTTP50 TD (09:01)
[2017-04-01] MEDS ORDERED: RXC5 PO (09:01)
[2017-04-01] MEDS ORDERED: DRGTP12 TD (09:01)
[2017-04-01] MEDS ORDERED: ZOLP5TAB PO (09:01)
[2017-04-01] MEDS ORDERED: FENTANYL PATCH REMOVE & WASTE SCH ×2 (09:15)
[2017-04-01] MEDS: DOCUSATE SODIUM 100 MG CAP PO SCH (09:19)
[2017-04-01] MEDS: FERROUS GLUCONATE 324 MG TAB PO SCH (09:19)
[2017-04-01] MEDS: ASPIRIN 81 MG ECTAB PO SCH (09:19)
[2017-04-01] MEDS: CLOPIDOGREL BISULFATE 75 MG TAB PO SCH (09:20)
[2017-04-01] MEDS: PANTOprazole SOD 40 MG TAB PO SCH (09:20)
[2017-04-01] MEDS: MULTIVITAMIN TAB PO SCH (09:20)
[2017-04-01] MEDS: FLUOXETINE HCL 20 MG CAP PO SCH (09:20)
[2017-04-01] MEDS: BuPROPion SR 150 MG TABCR PO SCH (09:21)
[2017-04-01 09:22] VITALS: BP 146/84; PULSE 68
[2017-04-01] MEDS: AMLODIPINE BESYLATE 5 MG TAB PO SCH (09:23)
[2017-04-01] MEDS: SOTALOL HCL 80 MG TAB PO SCH (09:24)
[2017-04-01] MEDS: FENTANYL 12 MCG/HR TDSY TD SCH (09:32)
[2017-04-01] MEDS: FENTANYL 50 MCG/HR TDSY TD SCH (09:33)
[2017-04-01 09:43] LABS: INR 1.3 (0.9-1.1); PROTHROMBIN TIME (PATIENT) 14.1 SECONDS (9.0-12.0)
[2017-04-01] MEDS ORDERED: AMOX875T PO (13:19)
--- NOTE | 2017-04-01 13:58 | Medical Consult ---
Consultation Note Date of Service Apr 01, 2017. Consultation Note Noninvasives reviewed. Patient has both inflow and severe outflow disease. Will need arteriography and possible intervention if possible. Will see her in the office this coming week and get this scheduled.
[2017-04-01 15:05] VITALS: BP 130/70; PULSE 72; TEMP 37; O2SAT 99
[2017-04-01] MEDS ORDERED: ACET-1138 PO (15:37)
--- NOTE | 2017-04-01 15:51 | Orthopedic Progress Note ---
Orthopedic Progress Note Date of Service Apr 01, 2017. Subjective Post OP Day: Reports: feeling well, Denies: complaints Objective calves soft nontender, N/V intact, A&O x3, toes mobile Dressing changed. Wound with less drainage. No overt purulent drainage noted. No foul odor. Wound edges appear viable. Redressed. Date Time Temp Pulse Resp B/P (MAP) Pulse Ox O2 Delivery O2 Flow Rate FiO2 04/01/17 15:05 37.0 72 20 130/70 (90) 99 Room Air 04/01/17 09:22 68 146/84 (104) 04/01/17 08:00 Room Air 04/01/17 07:32 36.9 70 16 152/82 (105) 97 Room Air 04/01/17 00:35 Room Air 03/31/17 23:24 36.6 65 16 127/77 (94) 98 Room Air 03/31/17 21:00 66 132/82 (99) 03/31/17 15:40 Room Air Laboratory Results 24 Hours: Test 04/01/17 09:21 Prothromb Time International Ratio 1.3 Prothrombin Time 14.1 SECONDS Assessment & Plan Assessment: POD #6 s/p Left ankle irrigation and debridement; debridement of skin; debridement of fascia; debridement of peroneal tendons; saucerization of the distal lateral fibula; implantation of antibiotic laden Stimulan beads Infected nonunion lateral malleolus fracture S/P removal of hardware due to infection Lateral ankle skin loss secondary to infection and wound necrosis PVD with small vessel disease Tobacco abuse Plan: Possible discharge today after final vascular service opinion. Oral antibx for infection which the patient already has at home. Will talk with pain management for final plans for home use of fentanyl patch and OxyIR. Appreciate Medicine, ID, and Pain Management services seeing patient Plastics consulted regarding possibility for rotational flap or free flap coverage -Per Plastics, Only potential local flap options for a wound this size would be reverse soleus or dorsalis pedis which have a high failure rate, especially in a patient with PVD and active tobacco use. Would recommend evaluation at tertiary center for possible free flap to close space/improve blood flow to wound. Candidacy for this would depend on further vascular studies. Discussed with Gricelda Hernandes PA-C today (04/01/17) They will call the patient with further information and appointment time to see Dr. Pacheco for further wound closure options. Vascular Surgery consult - Pt to follow up for further workup next week. Appt scheduled. PT/OT - NWB LLE - Pt independent - PT signed off. DVT prophylaxis - Warfarin and Plavix Inhouse Planning Pain Management: Percocet, Toradol, Dilaudid, other (Fentanyl patch) DVT Prophylaxis: Coumadin, other (PLavix) Discharge Planning Discharge Planning: home with home health Pain Management: Oxy IR, other (Fentanyl Patch)
[2017-04-01] MEDS: WARFARIN SOD 7.5 MG TAB PO SCH (15:53)
[2017-04-01 16:36] VITALS: BP 130/70; PULSE 72; TEMP 37; O2SAT 99
--- NOTE | 2017-04-01 17:15 | Progress Note ---
Medicine Progress Note Date & Time of Visit: Apr 01, 2017 at 17:11. Subjective Patient reports feeling bored, but overall feels her foot swelling and erythema are improving. She also reports her foot is less tender. No overnight events noted. Tolerating PO without difficulty. Patient planning to be discharged today or tomorrow to home. No other complaints noted. Objective Last 8 Hrs Date Time Temp Pulse Resp B/P (MAP) Pulse Ox O2 Delivery O2 Flow Rate FiO2 04/01/17 16:36 37.0 72 20 99 Room Air 04/01/17 15:05 37.0 72 20 130/70 (90) 99 Room Air 04/01/17 09:22 68 146/84 (104) Physical Exam: GENERAL: Patient is in no acute distress. HEENT: No acute trauma, normocephalic, mucous membranes moist, no nasal congestion, no scleral icterus. NECK: No stridor, trachea is midline. LUNGS: Clear to auscultation bilaterally, no wheeze, no rhonchi, breath sounds equal. HEART: Without murmurs gallops or rubs, regular rate and rhythm. ABDOMEN: Soft, nontender, bowel sounds positive EXTREMITIES: No cyanosis or edema, left LE wrapped in dressing NEUROLOGIC: Oriented x 3, no acute motor or sensory deficits, no focal weakness. SKIN: No rash, no jaundice, no diaphoresis. Laboratory Results: Last 24 Hours Test 04/01/17 06:21 04/01/17 09:21 Creatinine 1.00 mg/dl Est Creatinine Clear Calc Drug Dose 58.9 ml/min Estimated GFR () 72.4 Estimated GFR (Non- 62.5 Prothrombin Time 14.1 SECONDS Prothromb Time International Ratio 1.3 Assessment & Plan Left lower extremity osteomyelitis: wound infection status post repeat debridement -hx of ORIF L ankle fx 11/2016 -POD #6 s/p left ankle irrigation and debridement; debridement of skin; debridement of fascia; debridement of peroneal tendons; saucerization of the distal lateral fibula; implantation of antibiotic laden Stimulan beads -ID consulted and following -pain fairly controlled per patient as long as all meds given on schedule -pain management consulted and following -Plastic surgery also consulted, considering flap/further surgery possibly here vs tertiary care facility -was on IV Vanco and Zosyn, now off vanco, per ID note the patient can be discharged on PO abx -stable to discharge home with further surgical follow up as an outpatient HTN: -continue amlodipine PVD: -s/p prior stenting surgery -on statin, ASA, plavix Hx of A Fib: -currently in sinus, rate controlled -on coumadin with subtherapeutic INR, increased dose to 7.5; INR still low at 1.3 but trending up; patient to resume coag clinic management of INR -continue home Sotalol Chronic hyponatremia: -sodium is normalized -continue monitor Chronic anemia: -hemoglobin stable, better than baseline Ongoing tobacco abuse: -smoking cessation encouraged DVT prophylaxis: -on coumadin with INR goal 2-3 Current Inpatient Medications: Current Inpatient Medications Medications (Trade) Dose Ordered Sig/Rosa Route Start Time Stop Time Status Last Admin Dose Admin Amlodipine Besylate (Norvasc Tab) 10 mg DAILY PO 03/27/17 09:00 04/26/17 08:59 04/01/17 09:23 10 MG Aspirin (Ecotrin Tab) 81 mg DAILY PO 03/27/17 09:00 04/26/17 08:59 04/01/17 09:19 81 MG Atorvastatin Calcium (Lipitor Tab) 80 mg HS PO 03/26/17 21:00 04/25/17 20:59 03/31/17 20:58 80 MG Bupropion HCl (Wellbutrin-Sr Tab) 150 mg DAILY PO 03/27/17 09:00 04/26/17 08:59 04/01/17 09:21 150 MG Clopidogrel Bisulfate (plAVix TAB) 75 mg DAILY PO 03/27/17 09:00 04/26/17 08:59 04/01/17 09:20 75 MG Fluoxetine HCl (Prozac Cap) 20 mg DAILY PO 03/27/17 09:00 04/26/17 08:59 04/01/17 09:20 20 MG Ondansetron HCl (Zofran Tab) 8 mg Q6HWA PRN PO 03/26/17 20:00 04/25/17 19:59 03/30/17 09:26 8 MG Pantoprazole Sodium (Protonix Tab) 40 mg DAILY PO 03/27/17 09:00 04/26/17 08:59 04/01/17 09:20 40 MG Sotalol HCl (Betapace Tab) 80 mg BID PO 03/26/17 21:00 04/25/17 20:59 04/01/17 09:24 80 MG Ranitidine HCl (zANTac TAB) 300 mg HS PO 03/26/17 21:00 04/25/17 20:59 03/31/17 20:58 300 MG Acetaminophen (Tylenol Tab) 650 mg Q6H PRN PO 03/26/17 20:00 04/25/17 19:59 04/01/17 09:31 650 MG Magnesium Hydroxide (Milk Of Magnesia Susp) 30 ml Q6H PRN PO 03/26/17 20:00 04/25/17 19:59 Al Hydrox/Mg Hydrox/Simethicone (Maalox Max Susp) 15 ml Q4H PRN PO 03/26/17 20:00 04/25/17 19:59 Zolpidem Tartrate (Ambien Tab) 5 mg HSZ PRN PO 03/26/17 20:00 04/25/17 19:59 03/30/17 23:56 5 MG Multivitamins (Multivitamin Tab) 1 tab QAM PO 03/27/17 09:00 04/26/17 08:59 04/01/17 09:20 1 TAB Ferrous Gluconate (Ferrous Gluconate Tab) 324 mg DAILY PO 03/27/17 09:00 04/26/17 08:59 04/01/17 09:19 324 MG Docusate Sodium (coLACE CAP) 100 mg DAILY PO 03/27/17 09:00 04/26/17 08:59 04/01/17 09:19 100 MG Piperacillin Sod/ Tazobactam Sod (Consult) 1 ea UD PRN N/A 03/27/17 08:45 04/26/17 08:44 Piperacillin Sod/ Tazobactam Sod 3.375 gm/Dextrose 115 ml @ 28.75 mls/ hr Q8H IV 03/27/17 14:00 05/08/17 13:59 04/01/17 13:35 28.75 MLS/HR Hydromorphone HCl (Dilaudid Inj) 0.5 mg Q4HWA PRN IV 03/27/17 11:15 04/10/17 11:14 04/01/17 13:06 0.5 MG Oxycodone HCl (Roxicodone Immediate Rel Tab) `1-2 tabs for pain 1 tab ... Q4HWA PRN PO 03/28/17 10:15 04/11/17 10:14 04/01/17 15:52 10 MG Fentanyl (Duragesic Patch) 50 mcg Q72H TD 03/29/17 10:00 04/12/17 09:59 04/01/17 09:33 50 MCG Miscellaneous (Fentanyl Patch Remove & Waste) 1 ea Q3D N/A 04/01/17 09:15 05/01/17 09:14 04/01/17 09:28 1 EA Miscellaneous Information (Check Fentanyl Patch Placement) 1 ea QS N/A 03/29/17 16:00 04/28/17 15:59 04/01/17 15:53 1 EA Fentanyl (Duragesic Patch) 12 mcg Q3D TD 03/29/17 10:00 04/12/17 09:59 04/01/17 09:32 12 MCG Miscellaneous (Fentanyl Patch Remove & Waste) 1 ea Q72H N/A 04/01/17 09:15 05/01/17 09:14 04/01/17 09:28 1 EA Miscellaneous Information (Check Fentanyl Patch Placement) 1 ea QS N/A 03/29/17 16:00 04/28/17 15:59 04/01/17 15:54 1 EA Warfarin Sodium (Coumadin Tab) 7.5 mg DAILY@1600 PO 03/30/17 16:00 04/26/17 15:59 04/01/17 15:53 7.5 MG
--- NOTE | 2017-04-02 11:11 | Discharge Summary ---
Orthopedic Discharge Summary Admission Date/Reason Mar 26, 2017 at 20:07 Left Ankle Infection. Discharge Date/Disposition Apr 01, 2017 Home Diagnosis Principal Diagnosis: left ankle wound dehiscence and infection Procedure(s) Performed Left ankle irrigation and debridement; debridement of skin; debridement of fascia; debridement of peroneal tendons; saucerization of the distal lateral fibula; implantation of antibiotic laden Stimulan beads Consultations Infectious Disease Vascular surgery Plastic surgery Pain management Medication Reconciliation New Medications: Acetaminophen (Tylenol Extra Strength) 500 Mg Tab 2 TABS PO Q8H for 21 Days Amoxicillin & Pot Clavulanate (Augmentin 875-125 mg) 1 Tab Tab 1 TAB PO BID, #40 TAB BEGIN TAKING AUGMENTIN ONCE YOU RETURN HOME TWICE DAILY. Zolpidem Tartrate (Ambien) 5 Mg Tab 5 MG PO HS for Sleep, #5 TAB Fentanyl (Fentanyl) 12 Mcg Tdsy 12 MCG TD Q3D for 5 Days Changed Medications: Oxycodone HCl (Oxycodone HCl) 5 Mg Tab 5-10 MG PO Q4H PRN for Pain, #60 TAB (Changed from: Q6) Continued Medications: Amlodipine (Norvasc) 10 Mg Tab 10 MG PO DAILY, TAB Aspirin (Aspirin Ec) 81 Mg Tab 81 MG PO DAILY Atorvastatin (Lipitor) 80 Mg Tab 80 MG PO HS, TAB Bupropion (Wellbutrin Sr) 150 Mg Ertab 150 MG PO DAILY, TAB Clopidogrel (Plavix) 75 Mg Tab 75 MG PO DAILY, TAB Fentanyl (Duragesic) 50 Mcg Tdsy 50 MCG TD CQ72HR, #5 PATCH (This prescription has been renewed) Fluoxetine (Prozac) 20 Mg Cap 20 MG PO DAILY, CAP Ondansetron Hcl (Zofran) 8 Mg Tab 8 MG PO PRN for Nausea, TAB Pantoprazole (Protonix) 40 Mg Tab 40 MG PO DAILY, #30 TAB Ranitidine (Zantac) 300 Mg Tab 300 MG PO HS, TAB Sotalol HCl (Sotalol HCl) 80 Mg Tab 80 MG PO BID for 30 Days, #60 TAB Warfarin Sodium (Warfarin Sodium) 5 Mg Tab 5 MG PO 4XWK @ 1600 for 90 Days, TAB 3 Refills TAKES SUN, TUES, THURS, AND SAT. Warfarin Sodium (Warfarin Sodium) 7.5 Mg Tab 7.5 MG PO 3XWK @ 1600, TAB TAKES MON, WED, FRI. Admission Physical Exam As per Admitting History & Physical. Hospital Course The patient was admitted on 03.26.17 and underwent the above noted procedure. The patient was evaluated daily with dressing changes and multiple consults were placed. The patient was seen by infectious disease for antibiotic choice, plastic surgery for input on any tx that could be offered to close the wound, and vascular surgery for evaluation of the patient's blood flow into the leg. The patient was d/c'd home on 04.01.17 on PO Augmentin for the infection. No surgical tx was recommended by plastic surgery and the patient may have to have a free flap at a tertiary center if the wound fails to heal. She will follow up in approximately 1 week after discharge. Discharge Instructions Please refer to the electronic Patient Visit Report (Discharge Instructions) for additional information.
[2017-04-16] MEDS ORDERED: augmentin PO (14:02)
[2017-05-21] MEDS ORDERED: WARF5TAB7 PO (11:51)
== END 2017-04-01 17:30 | disposition home health service (06) | DRG 478 ==
LOC: C.ACU 12:43 → C.MSW 20:07 → ENRESERV 20:09
PROVIDERS: ADMIT Orthopaedic Surgery Sports Medicine; ATTEND Orthopaedic Surgery Sports Medicine
PROC: 0LBT0ZZ Excision of Left Ankle Tendon, Open Approach (ICD-10-PCS; principal; 2017-03-26 09:30)
PROC: 3E0U029 Introduction of Other Anti-infective into Joints, Open Approach (ICD-10-PCS; principal; 2017-03-26 09:30)
PROC: 0QBK0ZX Excision of Left Fibula, Open Approach, Diagnostic (ICD-10-PCS; principal; 2017-03-26 09:30)
DX: T84.625A Infection and inflammatory reaction due to internal fixation device of left fibula, initial encounter (principal); S82.832K Other fracture of upper and lower end of left fibula, subsequent encounter for closed fracture with nonunion; M86.8X7 Other osteomyelitis, ankle and foot; E87.1 Hypo-osmolality and hyponatremia; T81.32XD Disruption of internal operation (surgical) wound, not elsewhere classified, subsequent encounter; I73.9 Peripheral vascular disease, unspecified; I48.0 Paroxysmal atrial fibrillation; F32.9 Major depressive disorder, single episode, unspecified; E78.5 Hyperlipidemia, unspecified; I10 Essential (primary) hypertension; F17.210 Nicotine dependence, cigarettes, uncomplicated; D64.9 Anemia, unspecified; R23.1 Pallor; Z86.718 Personal history of other venous thrombosis and embolism; Z90.49 Acquired absence of other specified parts of digestive tract; Z79.899 Other long term (current) drug therapy; Z79.82 Long term (current) use of aspirin; Z79.02 Long term (current) use of antithrombotics/antiplatelets; Z79.01 Long term (current) use of anticoagulants; Z82.49 Family history of ischemic heart disease and other diseases of the circulatory system; Z91.048 Other nonmedicinal substance allergy status; Z88.8 Allergy status to other drugs, medicaments and biological substances; Y83.1 Surgical operation with implant of artificial internal device as the cause of abnormal reaction of the patient, or of later complication, without mention of misadventure at the time of the procedure; X58.XXXD Exposure to other specified factors, subsequent encounter

== ENCOUNTER → 2017-04-16 | Day surgery (SDC) | payer BC ==
[2017-04-15 18:01] VITALS: BMI 27.0
[~2017-04-16] VITALS: Ht 160 cm; Wt 71.5 kg
[~2017-04-16] MED LIST changes: +ACET-1138 PO; +AMOX875T PO; +ATROPINE SULFATE 0.1 MG/ML 5ML SYR IV PRN; +BACITRACIN 50000 UNIT VIAL ONE; +BUPIVACAINE 0.5 % 5 MG/1 ML MPF 30ML VIAL ONE; +BUPRTAB PO; +DEXAMETHASONE SOD INJ 4 MG/ML VIAL ONE; +DRGTP12 TD; +EpHEDrine SULFATE INJ 50 MG/ML AMP IV PRN; +FENTANYL CITRATE INJ 50 MCG/1 ML 2 ML VIAL IV PRN; +FENTANYL CITRATE INJ 50 MCG/1 ML 2 ML VIAL ONE; +GENTAMICIN SULFATE 40 MG/ML 2 ML VIAL ONE; +HYDROmorphone INJ 1 MG/ML SYR IV PRN; +HYDROmorphone INJ 2 MG/ML SYR/VIAL ONE; +KETOROLAC TROMETHAMINE 30 MG/ML VIAL IV STA; +KETOROLAC TROMETHAMINE 30 MG/ML VIAL ONE; +LIDOCAINE HCL 2% 2 ML VIAL (20MG/ML) ONE; +MEPERIDINE HCL 50 MG/ML CARP IV PRN; +MEPERIDINE HCL 50 MG/ML CARP ONE; +MIDAZOLAM HCL 1 MG/ML 2ML VIAL ONE; +ONDANSETRON INJ 2 MG/ML 2 ML VIAL IV PRN; +ONDANSETRON INJ 2 MG/ML 2 ML VIAL ONE; -OXYSR10 PO; +PROPOFOL IV EMULSION 10 MG/ML 20 ML VIAL IV ONE; +VANCOMYCIN HCL 1000MG/20ML VIAL ONE; +WARF5TAB7 PO; +ZOLP5TAB PO; +augmentin PO
--- NOTE | 2017-04-16 12:08 | History and Physical ---
History & Physical Date Apr 16, 2017. Chief Complaint left ankle nonhealing wound History of Present Illness The patient is a 57 year old female with complaints of a malodorous left ankle wound following previous I & D's. The wound is beginning to heal but at her most recent follow up, there was an odor with the wound. She is being set up for repeat I & D. 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 (10) Osteomyelitis of left fibula (11) Paroxysmal atrial fibrillation (12) PVD (peripheral vascular disease) (13) SOB (shortness of breath) (14) Surgical wound infection Surgical Problems: (1) H/O vascular surgery (2) History of appendectomy (3) Status post ORIF of fracture of ankle Allergies Coded Allergies: Adhesives (Verified Allergy, Mild, 04/15/17) Guanfacine (Verified Allergy, Unknown, 04/15/17) Nifedipine (Verified Allergy, Unknown, 04/15/17) Home Medications Scheduled Acetaminophen (Tylenol Extra Strength), 2 TABS PO Q8H Amlodipine (Norvasc), 10 MG PO DAILY Aspirin (Aspirin Ec), 81 MG PO DAILY Atorvastatin (Lipitor), 80 MG PO HS Bupropion (Wellbutrin Sr), 150 MG PO DAILY Clopidogrel (Plavix), 75 MG PO DAILY Fentanyl (Duragesic), 50 MCG TD CQ72HR Fentanyl (Fentanyl), 12 MCG TD Q3D Fluoxetine (Prozac), 20 MG PO DAILY Pantoprazole (Protonix), 40 MG PO DAILY Ranitidine (Zantac), 300 MG PO HS Sotalol HCl (Sotalol HCl), 80 MG PO BID Warfarin Sodium (Warfarin Sodium), 5 MG PO 4XWK @ 1600 Scheduled PRN Ondansetron Hcl (Zofran), 8 MG PO for Nausea Oxycodone HCl (Oxycodone HCl), 5-10 MG PO Q4H PRN for Pain Physical Examination Skin: warm/dry, + pertinent finding (Nonhealing left lateral ankle wound. No active bleeding. ) Eyes: normal inspection ENT: normal ENT inspection Head: normocephalic, atraumatic Neck: supple Respiratory/Chest: lungs clear, normal breath sounds, no respiratory distress Cardiovascular: regular rate, rhythm, no murmur Abdomen / GI: normal bowel sounds, non tender Extremities: + pertinent finding (Left ankle with nonhealing lateral ankle wound.) Neurologic/Psych: no motor/sensory deficits, alert, oriented x 3 Diagnosis Nonhealing left lateral ankle wound Lateral left ankle ulceration. PVD Plan of Treatment Recommend repeat I & D of the left ankle. All risks, benefits, complications, alternatives and rehab have been discussed and the patient wishes to proceed. She will be scheduled for 04.16.17.
[2017-04-16 14:13] VITALS: BP 140/92; PULSE 70; TEMP 37; O2SAT 100; Ht 160 cm; Wt 71.5 kg
[2017-04-16 14:24] LABS: PARTIAL THROMBOPLASTIN RATIO 1.4; PROTHROMBIN TIME (PATIENT) 22.2 SECONDS (9.0-12.0)
--- NOTE | 2017-04-16 18:03 | DIAGNOSTIC IMAGING REPORT ---
INTRAOPERATIVE LEFT ANKLE 2 VIEWS CLINICAL HISTORY: Intraoperative radiographs. COMPARISON STUDY: 03/26/2017 FINDINGS: 2 seconds of fluoroscopic time was utilized. 2 intraoperative or scopic spot films are provided for interpretation. Multiple radiopaque pledgets project over the distal fibula. There are lateral skin neto. IMPRESSION: Intraoperative radiographs demonstrating multiple radiopaque pledgets projected over the distal fibula. Electronically signed by: Greg Moreira M.D. 04/16/2017 6:02 PM Dictated Date/Time: 04/16/2017 5:59 PM
--- NOTE | 2017-04-16 18:20 | Discharge Instructions ---
Discharge Instructions Date of Service Apr 16, 2017. Admission Reason for Admission: Left Ankle Wound Dehiscence, Non-Healing Wound Sta Discharge Discharge Diagnosis / Problem: Left Ankle Wound Dehiscence, Non-Healing Wound Sta Discharge Goals Goal(s): Decrease discomfort, Improve function Activity Recommendations Activity Limitations: per Instructions/Follow-up section Weightbearing Status: Left non-weightbearing . Instructions / Follow-Up Instructions / Follow-Up ACTIVITY RECOMMENDATIONS: Limitations: No weight bearing to affected limb at all times. SPECIAL CARE INSTRUCTIONS: * Some drainage onto the dressing is normal and is no cause for alarm. * Some swelling is natural especially after walking. * When resting, keep your foot elevated above the level of your heart. * Call [facility] if you notice: -Increased drainage -Fever over 101 degrees F -Severe constant pain BANDAGE: * Leave bandage/cast in place unless otherwise directed. * Keep bandage/cast dry at all times. FOLLOW UP VISIT WITH DR. STANFORD If appointment is not already scheduled: Please call [facility] after you get home today to schedule a follow-up appointment for early next week with Dr. Stanford at . Current Hospital Diet Patient's current hospital diet: Discharge Diet Recommended Diet: AHA Diet (Heart Healthy) Procedures Procedures Performed: Incision and Drainage, Debridement of fibula, fascia, skin and tendon, Removal of antibiotic beads, Removal hardware two sites malleous and distal tibia;and antibiotic beads, Application Stimulan Beads, Left ankle Pending Studies Studies pending at discharge: no Medical Emergencies . Who to Call and When: Medical Emergencies: If at any time you feel your situation is an emergency, please call 911 immediately. . Non-Emergent Contact Non-Emergency issues call your: Surgeon Call Non-Emergent contact if: temperature is above 100.5, your pain is not controlled, your pain is worsening, wound has increased drainage . "Provider Documentation" section prepared by Yuri Stanford. . VTE Core Measure Inpt VTE Proph given/why not?: Warfarin (Coumadin) (Warfarin and Plavix as previously prescribed.)
--- NOTE | 2017-04-16 18:40 | [facility] Operative Report ---
Operative Report Operative Date Apr 16, 2017. Pre-Operative Diagnosis Left Non-healing wound dehiscence left lateral ankle, skin loss, left ankle retained screws at 2 sites: distal anterior tibia and medial malleolus, retained antibiotic beads, osteomyelitis of the fibula Post-Operative Diagnosis Left Non-healing wound dehiscence left lateral ankle, skin loss, left ankle retained screws at 2 sites:distal anterior tibia and medial malleolus, retained antibiotic beads, osteomyelitis of the fibula, necrosis of fascia/skin/peroneal tendons Procedure(s) Performed Left lateral ankle Irrigation and Debridement, Debridement of necrotic fibula, fascia, skin and peroneal tendon; Removal of antibiotic beads; Removal hardware two sites-medial malleous and distal anterior tibia; Implantation Stimulan Antibiotic Beads, Left ankle Surgeon Dr. Fischer Video Poker Floorman Surgeon(s) Kenneth SEE Estimated Blood Loss 5 ml Findings See dictation Specimens A. Explants left ankle Drains open mesh Acticoat Flex lateral ankle Anesthesia Gen. LMA Complication(s) None Disposition Recovery Room / PACU Indications This is a 57-year-old woman with severe peripheral vascular disease who underwent ORIF of a left trimalleolar ankle fracture. She had wound dehiscence laterally and had an I&D. She has subsequent removal of all hardware laterally with another I&D and laser wound VAC. She underwent a third I&D of the lateral ankle with placement of stimulator antibiotic beads. She presented to the office yesterday with scant drainage and overall improvement however had a slight followed her from the lateral aspect the wound. She is awaiting consultation from vascular surgery and plastic surgery for possibility of a rotation or free flap. Cannot be accomplished for at least 2 weeks therefore patient was then scheduled for repeat I&D with removal of all remaining hardware with debridement of softened osteomyelitic fibula and any nonviable tissue. The patient was scheduled for surgery as indicated. Description of Procedure All potential risks, benefits, complications, alternatives, rehabilitation, potential for incomplete relief of symptoms, need for further surgery, persistent numbness, weakness, stiffness, persistent pain, DVT, PE, , bone fracture, hardware breakage, nonunion, malunion or wound complications were discussed with the patient. The patient decided to proceed with the procedure as indicated. Procedure: The patient was taken to the operative suite and placed supine on the operating table. After review of the consent dedication proper operative site the patient was anesthetized with LMA placed. A tourniquet was applied high on the left thigh over cast padding. The left lower extremity was then sterilely prepped and draped in usual fashion. The lateral wound dressing neto and Adaptic had been removed prior to sterile prep. The limb was then elevated and the tourniquet was inflated to 250 mmHg. A 15 blade scalpel was used to debride the soft tissue and skin. Scalpel was also used to debride the fascia of the necrotic appearing tissue from the periphery around the wound. The antibiotic beads that were left in the bead pouch was then removed with a curette. Next the softened necrotic aspect of the lateral fibula was then debrided and removed with a rongeur. There is noted to be continued nonunion however. To be stable. Overall tissue. Improved compared to prior irrigation and debridement. Next large curette was then used to curettage of all soft tissues and the remainder of the bone to remove any residual glycocalyx. Next pulsatile lavage was used to irrigate the wound with bacitracin additive with proximal a 5 L of fluid. After this completed top sheet and top gloves were changed. Stimulation beads 5 mL pouch was then next with 1 g of vancomycin powder and 1 vial gentamicin. Small bead size was selected. Once the calcium sulfate beads had hardened there place a small sterile container for later use. Next Acticoat Flex dressing was then carefully stapled with a skin stapler along the inferior aspect of the wound as well as the posterior aspect of the wound at the skin margin. The beads were then placed into this pouch adjacent to the soft tissues and then packed in and around the periphery of the wound. Next the bead pouch was then sealed anteriorly with further skin neto. The residual Acticoat Flex was then trimmed with a scissor. Next top gloves and top sheet were changed and a 15 blade scalpel was used to make an incision in the distal anterior aspect of the tibia at the site of previous incision. Careful dissection was performed with tenotomy scissors down to the anterior cortex of the tibia. The 2 screws with were placed were then identified and then removed with a screwdriver. The residual holes were then curetted with a small curette and irrigated with pulsatile lavage with bacitracin. The small anterior skin incisions were then closed using a 4-0 nylon. Next a 15 blade scalpel was used to make an incision along the medial malleolus distal aspect. The incision was deepened to the subcutaneous tissue. Meticulous hemostasis was achieved with electrocautery. The screw heads were identified and the screws removed with a small screwdriver. The holes were then curetted with a small curette. The incision was irrigated with pulsatile lavage with bacitracin. The skin incision was then closed using 4-0 nylon suture. X-rays were obtained AP and lateral projections to confirm removal of all hardware. Next a sterile compressive dressing and splint was applied overwrapped with an Santosh wrap in neutral dorsiflexion. The tourniquet was released, the patient was awakened and taken to recovery in stable condition. I attest to the content of the Intraoperative Record and any orders documented therein. Any exceptions are noted below.
--- NOTE | 2017-04-16 19:09 | Anesthesiology Progress Note ---
Anesthesia Post Op Note Date & Time Apr 16, 2017 at 19:09 Vital Signs Pain Intensity: 4 Vital Signs Past 12 Hours Date Time Temp Pulse Resp B/P (MAP) Pulse Ox O2 Delivery O2 Flow Rate FiO2 04/16/17 19:00 81 18 126/83 100 Nasal Cannula 2 04/16/17 18:50 88 16 139/75 100 Nasal Cannula 2 04/16/17 18:40 90 19 144/89 100 Nasal Cannula 2 04/16/17 18:30 86 14 158/97 100 Nasal Cannula 2 04/16/17 18:20 85 21 189/109 100 Mask 10 04/16/17 18:12 36.2 89 20 187/112 100 Mask 10 04/16/17 14:13 37 70 70 140/92 (108) 100 Room Air Notes Mental Status: alert / awake / arousable, participated in evaluation Pt Amnestic to Procedure: Yes Nausea / Vomiting: adequately controlled Pain: adequately controlled, improving with treatment Airway Patency, RR, SpO2: stable & adequate BP & HR: stable & adequate Hydration State: stable & adequate Anesthetic Complications: no major complications apparent
[2017-04-16 19:15] VITALS: BP 137/70; PULSE 83; TEMP 36.9; O2SAT 96
[2017-04-16 19:45] VITALS: BP 126/78; PULSE 82; TEMP 36.9; O2SAT 99
== END | disposition home or self-care (01) ==
LOC: C.ACU 13:21
PROVIDERS: ATTEND Orthopaedic Surgery Sports Medicine
DX: T81.31XA Disruption of external operation (surgical) wound, not elsewhere classified, initial encounter (principal); L97.324 Non-pressure chronic ulcer of left ankle with necrosis of bone; I73.9 Peripheral vascular disease, unspecified; F32.9 Major depressive disorder, single episode, unspecified; E78.5 Hyperlipidemia, unspecified; I10 Essential (primary) hypertension; Z86.718 Personal history of other venous thrombosis and embolism; I48.0 Paroxysmal atrial fibrillation; Z90.89 Acquired absence of other organs; M86.062 Acute hematogenous osteomyelitis, left tibia and fibula; Y84.8 Other medical procedures as the cause of abnormal reaction of the patient, or of later complication, without mention of misadventure at the time of the procedure

== ENCOUNTER 2017-04-30 11:02 | Emergency (ER) | payer BC ==
[~2017-04-30] VITALS: Ht 160 cm; Wt 71.4 kg
[~2017-04-30 11:02] MED LIST changes: -AMOX875T PO; -ATROPINE SULFATE 0.1 MG/ML 5ML SYR IV PRN; -BACITRACIN 50000 UNIT VIAL ONE; -BUPIVACAINE 0.5 % 5 MG/1 ML MPF 30ML VIAL ONE; -BUPRTAB PO; -CEFAZOLIN 1000MG/55 ML D5W IV SCH; -DEXAMETHASONE SOD INJ 4 MG/ML VIAL ONE; -EpHEDrine SULFATE INJ 50 MG/ML AMP IV PRN; -FENTANYL CITRATE INJ 50 MCG/1 ML 2 ML VIAL IV PRN; -FENTANYL CITRATE INJ 50 MCG/1 ML 2 ML VIAL ONE; -GENTAMICIN SULFATE 40 MG/ML 2 ML VIAL ONE; -HYDROmorphone INJ 1 MG/ML SYR IV PRN; -HYDROmorphone INJ 2 MG/ML SYR/VIAL ONE; -KETOROLAC TROMETHAMINE 30 MG/ML VIAL IV STA; -KETOROLAC TROMETHAMINE 30 MG/ML VIAL ONE; -LIDOCAINE HCL 2% 2 ML VIAL (20MG/ML) ONE; -MEPERIDINE HCL 50 MG/ML CARP IV PRN; -MEPERIDINE HCL 50 MG/ML CARP ONE; -MIDAZOLAM HCL 1 MG/ML 2ML VIAL ONE; -ONDANSETRON INJ 2 MG/ML 2 ML VIAL IV PRN; -ONDANSETRON INJ 2 MG/ML 2 ML VIAL ONE; -PROPOFOL IV EMULSION 10 MG/ML 20 ML VIAL IV ONE; -VANCOMYCIN HCL 1000MG/20ML VIAL ONE; -WARF-284 PO; -WARF5TAB7 PO; -ZOLP5TAB PO
[2017-04-30 11:12] VITALS: Ht 160 cm; Wt 71.4 kg
--- NOTE | 2017-04-30 11:54 | DIAGNOSTIC IMAGING REPORT ---
LEFT ANKLE MIN 3 VIEWS ROUTINE CLINICAL HISTORY: LEFT ANKLE INJURY trauma. Pain. COMPARISON: None. DISCUSSION: Evidence for hardware removal of the distal fibula. There is a described posttraumatic changes are similar. There is been placement of multiple antibiotic beads and/or implants adjacent to the distal fibula. Ankle mortise remains anatomically aligned. Heel spur is present. Expected soft tissue postoperative change IMPRESSION: Postoperative changes consistent with hardware removal and implantation of antibiotic beats. Alignment remains anatomic. The above report was generated using voice recognition software. It may contain grammatical, syntax or spelling errors. Electronically signed by: Santos Mckenzie M.D. 04/30/2017 11:53 AM Dictated Date/Time: 04/30/2017 11:51 AM
[2017-04-30] MEDS ORDERED: DRGTP12 TD (11:55)
[2017-04-30] MEDS ORDERED: ZOLP5TAB PO (11:55)
[2017-04-30] MEDS ORDERED: RXC5 PO (11:55)
[2017-04-30] MEDS ORDERED: BUPRTAB PO (11:55)
[2017-04-30] MEDS ORDERED: AMOX875T PO (11:55)
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
[2017-04-30 12:41] VITALS: BP 123/76; PULSE 93; TEMP 36.4; O2SAT 100
[2017-05-21] MEDS ORDERED: WARF5TAB7 PO (11:51)
== END 2017-04-30 12:44 | disposition home or self-care (01) ==
LOC: C.EDB 11:04 → C.EDD 12:44
DX: S90.02XA Contusion of left ankle, initial encounter (principal); W22.8XXA Striking against or struck by other objects, initial encounter; I10 Essential (primary) hypertension; I48.91 Unspecified atrial fibrillation; E78.5 Hyperlipidemia, unspecified; I73.9 Peripheral vascular disease, unspecified; F32.9 Major depressive disorder, single episode, unspecified; Z98.890 Other specified postprocedural states; Z79.01 Long term (current) use of anticoagulants; Z79.82 Long term (current) use of aspirin; Z79.899 Other long term (current) drug therapy; Z88.8 Allergy status to other drugs, medicaments and biological substances; Z91.09 Other allergy status, other than to drugs and biological substances

== ENCOUNTER 2017-05-21 12:16 | Emergency (ER) | payer BC ==
[~2017-05-21] VITALS: Ht 160 cm; Wt 64.9 kg
[~2017-05-21 12:16] MED LIST changes: +AMOX875T PO; -BUPR-79 PO; +BUPRTAB PO; -FNTTP50 TD; +WARF5TAB7 PO; +ZOLP5TAB PO; -augmentin PO
[2017-05-21] MEDS ORDERED: HYDROmorphone INJ 1 MG/ML SYR IV STA ×2 (12:50→16:10)
[2017-05-21] MEDS ORDERED: ONDANSETRON INJ 2 MG/ML 2 ML VIAL IV STA ×2 (12:50→16:10)
[2017-05-21] MEDS ORDERED: SODIUM CHLORIDE 0.9% 1000ML 1,000 ML IV STA ×2 (12:50→15:23)
[2017-05-21 13:26] VITALS: Ht 160 cm; Wt 64.9 kg
--- NOTE | 2017-05-21 13:28 | EMERGENCY ROOM VISIT NOTE ---
History Report prepared by Florencia: Asiya Valverde Under the Supervision of: Dr. Carlo Palomino M.D. First contact with patient: 12:36 Chief Complaint: VOMITING Stated Complaint: HIGH 8+ INR - VOMITING FOR 3 DAYS History of Present Illness The patient is a 57 year old female who presents to the Emergency Room with complaints of intermittent vomiting for the past 3 days. She is also experiencing nausea. She denies any abdominal pain. She has been unable to keep very much down due to her symptoms. The patient has a wound on her left ankle and has been following with Dr. Ordoñez from the wound clinic. He sent her to the ED today for evaluation because he was concerned that she was dehydrated and her INR was above 8. Source of History: patient, treating provider (Dr. Ordoñez) Onset: 3 days ago Position: abdomen Quality: other (vomiting) Timing: intermittent Modifying Factors (Worsening): eating, drinking Associated Symptoms: + nausea, No abdominal pain Note: INR greater than 8 Review of Systems See HPI for pertinent positives & negatives. A total of 10 systems reviewed and were otherwise negative. 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 (10) Osteomyelitis of left fibula (11) Paroxysmal atrial fibrillation (12) PVD (peripheral vascular disease) (13) SOB (shortness of breath) (14) Surgical wound infection Surgical Problems: (1) H/O vascular surgery (2) History of appendectomy (3) Status post ORIF of fracture of ankle Family History Hypertension FATHER MOTHER Social History Smoking Status: Former Smoker Drug Use: none Marital Status: Housing Status: lives with family Occupation Status: disabled Current/Historical Medications Scheduled Acetaminophen (Tylenol Extra Strength), 2 TABS PO Q8H Amlodipine (Norvasc), 10 MG PO DAILY Amoxicillin & Pot Clavulanate (Augmentin 875-125 mg), 1 TAB PO BID Aspirin (Aspirin Ec), 81 MG PO DAILY Atorvastatin (Lipitor), 80 MG PO HS Bupropion Hcl (Wellbutrin Xl), 150 MG PO DAILY Clopidogrel (Plavix), 75 MG PO DAILY Fentanyl (Fentanyl), 12 MCG TD Q3D Fluoxetine (Prozac), 20 MG PO DAILY Pantoprazole (Protonix), 40 MG PO DAILY Ranitidine (Zantac), 300 MG PO HS Sotalol HCl (Sotalol HCl), 80 MG PO BID Warfarin Sod (Jantoven), 5 MG PO DAILY Scheduled PRN Ondansetron Hcl (Zofran), 8 MG PO for Nausea Oxycodone HCl (Oxycodone HCl), 5-10 MG PO Q4 PRN for Pain Zolpidem Tartrate (Ambien), 5 MG PO HS PRN for Sleep Allergies Coded Allergies: Adhesives (Verified Allergy, Mild, 05/21/17) Guanfacine (Verified Allergy, Unknown, 05/21/17) Nifedipine (Verified Allergy, Unknown, 05/21/17) Physical Exam Vital Signs Date Time Temp Pulse Resp B/P (MAP) Pulse Ox O2 Delivery O2 Flow Rate FiO2 05/21/17 20:35 36.7 93 12 141/91 95 05/21/17 20:35 36.7 93 12 141/91 95 05/21/17 19:34 93 12 95 05/21/17 19:31 141/91 05/21/17 19:29 86 12 96 05/21/17 19:26 167/97 05/21/17 19:24 97 12 209/116 97 05/21/17 19:19 12 05/21/17 19:14 0 05/21/17 19:09 0 05/21/17 19:04 0 05/21/17 19:00 91/53 05/21/17 18:59 81 12 05/21/17 18:54 86 15 100 05/21/17 18:49 83 12 100 05/21/17 18:46 170/108 05/21/17 18:44 97 0 100 05/21/17 18:42 21 05/21/17 18:39 83 05/21/17 18:24 82 100 05/21/17 18:19 78 98 05/21/17 18:16 135/86 05/21/17 18:14 79 20 99 05/21/17 18:11 123/76 05/21/17 18:09 78 98 05/21/17 18:04 80 99 05/21/17 18:01 91/86 05/21/17 18:00 81 22 123/76 99 Room Air 05/21/17 17:59 121 12 123/77 88 05/21/17 17:54 80 16 98 05/21/17 17:49 88 16 86 05/21/17 17:44 75 18 97 05/21/17 17:39 85 17 100 05/21/17 17:34 89 14 98 05/21/17 17:29 82 18 99 05/21/17 17:24 89 13 98 05/21/17 17:19 84 25 97 05/21/17 17:14 89 21 99 05/21/17 17:09 87 19 05/21/17 17:04 88 99 05/21/17 16:59 96 05/21/17 16:54 105 05/21/17 16:49 88 14 100 05/21/17 16:44 95 17 05/21/17 16:39 84 15 99 05/21/17 16:34 81 16 99 05/21/17 16:24 81 16 05/21/17 16:19 81 15 05/21/17 16:14 80 13 05/21/17 16:09 79 21 05/21/17 16:04 138/81 05/21/17 14:31 155/134 05/21/17 14:16 78 11 97 05/21/17 14:01 185/89 05/21/17 13:46 73 17 96 05/21/17 13:43 77 05/21/17 13:42 160/92 05/21/17 13:29 100 Room Air 05/21/17 12:24 36.7 79 20 114/81 100 Room Air Physical Exam GENERAL: Patient is a healthy-appearing well-nourished 57 year old female. HEAD: Normocephalic atraumatic EYES: Ocular movements intact pupils equal and react to light OROPHARYNX mucous membranes are moist no exudates present no erythema or edema present NECK: Supple no nuchal rigidity CHEST: Good equal expansion LUNGS: Clear and equal to auscultation CARDIAC: Normal S1 and S2 ABDOMEN: Soft nontender no guarding BACK: No CVA tenderness. No midline tenderness. EXTREMITIES: No pain upon palpation normal muscle strength in all groups no clubbing cyanosis or edema NEURO: Patient is following commands and answering questions appropriately. Alert and oriented x3 Cranial Nerves 2-12 grossly intact Medical Decision & Procedures ER Provider Diagnostic Interpretation: Radiology results as stated below per my review and radiologist interpretation: ABDOMEN 2VIEW W/PA CHEST RTN CLINICAL HISTORY: 57 years-old Female presenting with Pt c/o N V. TECHNIQUE: PA view of the chest and supine and upright views of the abdomen were obtained. COMPARISON: 02/04/2017. FINDINGS: Interval removal of the right upper extremity PICC. Atherosclerosis of aortic arch. Cardiac silhouette normal. Suspected calcified granuloma in the right midlung. Lungs and pleural spaces otherwise clear. Mild diffuse gaseous distention of small bowel with an apparent maximal diameter of 3.5 cm, although this may be affected by magnification. Suggestion of mild small bowel wall thickening in the left mid abdomen. No convincing evidence of bowel obstruction. No pneumoperitoneum. No emelyn calcifications project over the kidneys to suggest nephrolithiasis. Extensive bilateral iliac vascular stents as well as left femoral vascular stent. Degenerative changes of the lumbar spine. IMPRESSION: 1. Interval removal of the right upper extremity PICC. 2. No acute cardiopulmonary disease. 3. Mild apparent gaseous distention of small bowel without convincing evidence of obstruction. Suggestion of small bowel wall thickening in the left mid abdomen. This could represent enteritis with mild ileus. Further evaluation with contrast-enhanced CT of the abdomen and pelvis as clinically indicated. Electronically signed by: Titus Winston M.D. 05/21/2017 3:10 PM Dictated Date/Time: 05/21/2017 3:07 PM LEFT ANKLE 3 VIEWS CLINICAL HISTORY: Left ankle pain. Wound. FINDINGS: 3 views of left ankle are compared to study dated 04/30/2017. The skeletal structures are heterogeneously osteopenic. There is evidence of hardware removal in the distal tibia and fibula. Antibiotic relative also likely been removed. No fracture is seen. The ankle mortise appears intact. Bony erosion/resorption is identified involving the distal fibula PA and overlying soft tissue edema is noted. There is a large plantar calcaneal enthesophyte. Soft tissue edema is present around the ankle and there is a joint effusion. Numerous skin clips are noted. IMPRESSION: 1. Heterogeneous osteopenia and postoperative change as above with no radiographic evidence of fracture. 2. Erosion/absorptive change is seen in the distal fibula/lateral malleolus. This is nonspecific and may be related to previous surgery. Osteomyelitis would be impossible to exclude and clinical correlation will be required. 3. Diffuse soft tissue edema and joint effusion. Electronically signed by: Angus Marte M.D. 05/21/2017 3:08 PM Dictated Date/Time: 05/21/2017 3:05 PM Laboratory Results 05/21/17 13:30 Red Blood Count 3.51, Mean Corpuscular Volume 96.6, Mean Corpuscular Hemoglobin 33.0, Mean Corpuscular Hemoglobin Concent 34.2, Mean Platelet Volume 11.0, Neutrophils (%) (Auto) 86.4, Lymphocytes (%) (Auto) 10.3, Monocytes (%) (Auto) 1.6, Eosinophils (%) (Auto) 0.3, Basophils (%) (Auto) 0.4, Neutrophils # (Auto) 7.92, Lymphocytes # (Auto) 0.94, Monocytes # (Auto) 0.15, Eosinophils # (Auto) 0.03, Basophils # (Auto) 0.04 05/21/17 13:30 Test 05/21/17 13:30 05/21/17 13:38 05/21/17 14:55 05/21/17 15:28 White Blood Count 9.17 K/uL (4.8-10.8) Red Blood Count 3.51 M/uL (4.2-5.4) Hemoglobin 11.6 g/dL (12.0-16.0) Hematocrit 33.9 % (37-47) Mean Corpuscular Volume 96.6 fL (80-100) Mean Corpuscular Hemoglobin 33.0 pg (25-34) Mean Corpuscular Hemoglobin Concent 34.2 g/dl (32-36) Platelet Count 217 K/uL (130-400) Mean Platelet Volume 11.0 fL (7.4-10.4) Neutrophils (%) (Auto) 86.4 % Lymphocytes (%) (Auto) 10.3 % Monocytes (%) (Auto) 1.6 % Eosinophils (%) (Auto) 0.3 % Basophils (%) (Auto) 0.4 % Neutrophils # (Auto) 7.92 K/uL (1.4-6.5) Lymphocytes # (Auto) 0.94 K/uL (1.2-3.4) Monocytes # (Auto) 0.15 K/uL (0.11-0.59) Eosinophils # (Auto) 0.03 K/uL (0-0.5) Basophils # (Auto) 0.04 K/uL (0-0.2) RDW Standard Deviation 61.7 fL (36.4-46.3) RDW Coefficient of Variation 17.9 % (11.5-14.5) Immature Granulocyte % (Auto) 1.0 % Immature Granulocyte # (Auto) 0.09 K/uL (0.00-0.02) Nucleated RBC Absolute Count (auto) 0.02 K/uL (0-0) Nucleated Red Blood Cells % 0.2 % Prothrombin Time > 100.0 SECONDS Prothromb Time International Ratio > 8.0 (0.9-1.1) Activated Partial Thromboplast Time 47.4 SECONDS (21.0-31.0) Partial Thromboplastin Ratio 1.8 Anion Gap 10.0 mmol/L (3-11) Est Creatinine Clear Calc Drug Dose 56.2 ml/min Estimated GFR () 72.4 Estimated GFR (Non- 62.5 BUN/Creatinine Ratio 2.9 (10-20) Calcium Level 8.2 mg/dl (8.5-10.1) Total Bilirubin 0.8 mg/dl (0.2-1) Aspartate Amino Transf (AST/SGOT) 21334 U/L (15-37) Alanine Aminotransferase (ALT/SGPT) 1656 U/L (12-78) Alkaline Phosphatase 250 U/L (45-117) Total Creatine Kinase 66 U/L (26-192) Creatine Kinase MB 0.6 ng/ml (0.5-3.6) Creatine Kinase MB Ratio 0.9 (0-3.0) Troponin I < 0.015 ng/ml (0-0.045) Total Protein 6.2 gm/dl (6.4-8.2) Albumin 2.3 gm/dl (3.4-5.0) Globulin 3.9 gm/dl (2.5-4.0) Albumin/Globulin Ratio 0.6 (0.9-2) Bedside Lactic Acid Venous 3.85 mmol/L (0.90-1.70) Urine Color ORANGE Urine Appearance CLOUDY (CLEAR) Urine pH 6.5 (4.5-7.5) Urine Specific Myra 1.016 (1.000-1.030) Urine Protein 1+ (NEG) Urine Glucose (UA) NEG (NEG) Urine Ketones NEG (NEG) Urine Occult Blood 2+ (NEG) Urine Nitrite POS (NEG) Urine Bilirubin NEG (NEG) Urine Urobilinogen NEG (NEG) Urine Leukocyte Esterase LARGE (NEG) Urine WBC (Auto) >30 /hpf (0-5) Urine RBC (Auto) 0-4 /hpf (0-4) Urine Hyaline Casts (Auto) 1-5 /lpf (0-5) Urine Epithelial Cells (Auto) 20-30 /lpf (0-5) Urine Bacteria (Auto) NEG (NEG) Ferritin 88483.1 ng/ml (8.0-388.0) Lipase 354 U/L (73-393) Test 05/21/17 15:36 Acetaminophen Level 12 ug/ml (10-30) Ethyl Alcohol mg/dL < 3.0 mg/dl (0-3) Hepatitis C Antibody NEG (NEG) Monoscreen NEG (NEG) Labs reviewed by ED physician. Medications Administered Medications (Trade) Dose Ordered Sig/Rosa Route Start Time Stop Time Status Last Admin Dose Admin Sodium Chloride 1,000 ml @ 999 mls/hr Q1H1M STAT IV 05/21/17 12:50 05/21/17 13:50 DC 05/21/17 13:36 999 MLS/HR Hydromorphone HCl (Dilaudid Inj) 1 mg NOW STAT IV 05/21/17 12:50 05/21/17 12:52 DC 05/21/17 13:36 1 MG Ondansetron HCl (Zofran Inj) 4 mg NOW STAT IV 05/21/17 12:50 05/21/17 12:52 DC 05/21/17 13:36 4 MG Piperacillin Sod/ Tazobactam Sod (Zosyn Iv) 4.5 gm NOW STAT IV 05/21/17 13:55 05/21/17 13:57 DC 05/21/17 18:16 4.5 GM Vancomycin HCl (Vancomycin 1gm/ 270ml Nss) 1 gm NOW STAT IV 05/21/17 13:55 05/21/17 13:57 DC 05/21/17 16:06 1 GM Acetylcysteine (Acetadote Iv 21 Hour Regimen) 1 ea NOW STAT IV 05/21/17 15:00 05/21/17 15:02 DC 05/21/17 15:00 1 EA Phytonadione 10 mg/Sodium Chloride 51 ml @ 102 mls/hr ONE STAT IV 05/21/17 15:02 05/21/17 15:31 DC 05/21/17 15:02 102 MLS/HR Acetylcysteine 9750 mg/Dextrose 248.75 ml @ 200 mls/ hr TODAY@1515 IV 05/21/17 15:15 05/21/17 16:30 DC 05/21/17 16:06 200 MLS/HR Acetylcysteine 3250 mg/Dextrose 516.25 ml @ 125 mls/ hr TODAY@1615 IV 05/21/17 16:15 05/21/17 20:23 DC 05/21/17 17:35 125 MLS/HR Acetylcysteine 6500 mg/Dextrose 1,032.5 ml @ 62.5 mls/ hr TODAY@2024 IV 05/21/17 20:24 05/21/17 21:25 DC 05/21/17 20:24 62.5 MLS/HR Sodium Chloride 1,000 ml @ 999 mls/hr Q1H1M STAT IV 05/21/17 15:23 05/21/17 16:23 DC 05/21/17 15:23 999 MLS/HR Hydromorphone HCl (Dilaudid Inj) 1 mg NOW STAT IV 05/21/17 16:10 05/21/17 16:11 DC 05/21/17 16:10 1 MG Ondansetron HCl (Zofran Inj) 4 mg NOW STAT IV 05/21/17 16:10 05/21/17 16:11 DC 05/21/17 16:10 4 MG Promethazine HCl (Phenergan Inj) 50 mg STK-MED ONCE IM 05/21/17 17:04 05/21/17 17:05 DC 05/21/17 17:04 25 MG Etomidate (Amidate Inj) 20 mg NOW STAT IV 05/21/17 18:27 05/21/17 18:29 DC 05/21/17 18:27 20 MG Succinylcholine Chloride (Quelicin Inj) 150 mg NOW STAT IV 05/21/17 18:27 05/21/17 18:29 DC 05/21/17 18:27 150 MG Vecuronium [place] (Vecuronium [place] Inj) 10 mg NOW STAT IV 05/21/17 18:27 05/21/17 18:29 DC 05/21/17 18:27 10 MG Propofol (Diprivan Iv Emulsion 100ml Vial) 1 dose UD PRN IV 05/21/17 18:30 05/21/17 21:25 DC 05/21/17 20:07 1 DOSE Midazolam HCl (Versed Inj) 2 mg NOW STAT IV 05/21/17 18:29 05/21/17 18:30 DC 05/21/17 18:29 2 MG Miscellaneous (Rapid Sequence Induction Bag) 1 ea STK-MED ONCE N/A 05/21/17 18:34 05/21/17 18:35 DC 05/21/17 18:34 1 EA Propofol (Diprivan Iv Emulsion 100ml Vial) 1 dose UD PRN IV 05/21/17 19:00 05/21/17 21:25 DC 05/21/17 20:07 1 DOSE Procedure Central Venous Catheter Indication: Access Catheter type: Arrow triple Lumen Location: left femoral vein Verbal consent was obtained after the risks and benefits were explained, including but not limited to pneumothorax, hemothorax, vessel injury, bleeding, scarring, infection, pain, and bone/joint/nerve damage. At this time, the risks of the procedure are less than the risks of NOT performing the procedure. A time out was taken and the correct patient and site identified. The patient was placed in the supine position and the skin was prepped in the standard fashion with chlorhexidine and full sterile drapes applied. The proper landmarks were identified with ultrasound, anesthetized with 1% lidocaine without epinephrine, and the needle was inserted through the skin in the standard fashion. The needle was carefully advanced into blood vessel lumen under ultrasound guidance. The guidewire was placed uneventfully. The vessel is dilated and the catheter was placed. It was sutured into position. There was good blood return from all ports. The patient tolerated the procedure well and there were no complications. Post procedure x-ray was normal. Endotracheal Intubation Indication LONGTERM. The patient was on 100% oxygen via NRB prior to the procedure. Suction, airway equipment, RSI drugs, respiratory equipment, and appropriate personnel were prepared prior to the initiation of the procedure. A time out was taken. Induction was performed with Succinylcholine and Etomidate. After observing the clinical benefit of the medications, the airway was easily visualized utilizing a glidescope. A 7.5 size ETT tube was placed atraumatically to 24 cm using standard technique. The cuff inflated without signs of malfunction. There were bilateral breath sounds, positive colormetric change, no gastric sounds, a good capnography waveform, and post procedure pulse oximetry was 100%. Post intubation sedation and paralysis was administered using vecuronium and propofol. There were no complications. ED Course 1236: Past medical records reviewed. The patient was evaluated in room B12B. A complete history and physical examination was performed. 1250: Zofran 4 mg IV, Dilaudid 1 mg IV, NSS 1000 ml @ 999 mls/hr IV 1355: Vancomycin 1 gm IV, Zosyn 4.5 gm IV 1410: I updated the patient and she is resting more comfortably. 1500: Acetylcysteine IV 1502: I discussed the patient's case with EMMY Lee with GI. She will come to the ED to evaluate the patient. 1502: Phytonadione 10 mg/Sodium Chloride 51 ml @ 102 mls/hr IV 1515: Acetylcysteine 9750 mg/Dextrose 248.75 ml @ 200 mls/hr IV 1523: NSS 1000 ml @ 999 mls/hr IV 1526: I spoke with EMMY Lee at this time. She had evaluated the patient and we agreed that the patient should be transferred for further management. 1601: At this time I discussed the patient's case with Dr. Ku of the medicine service at [facility] in [place]. He accepted the patient for transfer to their facility. 1608: I reassessed the patient at this time. I discussed the results and treatment plan with the patient. I answered all pertaining questions that she had. She expressed understanding and verbalized agreement. 1610: Zofran 4 mg IV, Dilaudid 1 mg IV 1615: Acetylcysteine 3250 mg/Dextrose 516.25 ml @ 125 mls/hr IV 1633: I discussed the patient's case with Polly Rodriguez PA-C. We discussed the patient's case. We discussed admission, but we are unable to take care of the patient here. 1651: The patient is vomiting in the room. 1657: At this time I placed a central line. Please see the procedure note for further details. 2024: Acetylcysteine 6500 mg/Dextrose 1032.5 ml @ 62.5 mls/hr IV Medical Decision Differential diagnosis: Etiologies such as benign positional vertigo, dehydration, hypovolemia, anemia, tumor, infection, hypoglycemia, electrolyte abnormalities, cardiac sources, intracerebral event, toxicologic, neurologic, as well as others were entertained. This is a 57-year-old female who presents to the emergency department after seizure sent in by wound clinic over concerns that the patient was vomiting and was dehydrated. Upon arrival to the emergency department IV was established, the patient given normal saline bolus, Dilaudid. The patient's liver enzymes were found to be in the thousands. Based on this I did discuss the case with the packaging mechanic on-call. The patient was started on IV NAC they recommended transfer to a tertiary care center that has the capability of transplant. The patient has been to [facility] in the past therefore was requesting [facility] however after discussing the case with the hospitalist and [facility] it was discovered that [facility] would not have room for 24 hours. I did discuss the case with the [facility] hospitalist here to see if they will consider admitting the patient however they refused. I then discussed the case with Crystal and Marcelo Burgess however they also noted that the patient needs to be at a tertiary care center. In addition the patient at this point required a central line due to the high amount of medication she was receiving so this was placed as above. I then discussed the case with [facility] who asked that the patient be intubated prior to transport. Patient and agreed to this. The patient was then transferred to the [facility] crew. Medication Reconcilliation Current Medication List: was personally reviewed by me Blood Pressure Screening Patient's blood pressure: Normal blood pressure Consults Time Called: 1459 Consulting Physician: EMMY Lee Returned Call: 1502 I discussed the patient's case with EMMY Lee with GI. She will come to the ED to evaluate the patient. Additional Consults: Time Called: 1526 Consulted Physician: EMMY Lee Returned Call: 1526 Additional Comments: I spoke with EMMY Lee at this time. She had evaluated the patient and we agreed that the patient should be transferred for further management. Time Called: 1557 Consulted Physician: Dr. Ku Returned Call: 1601 Additional Comments: At this time I discussed the patient's case with Dr. Ku of the medicine service at [facility] in [place]. He accepted the patient for transfer to their facility. Impression Primary Impression: Acute liver failure Critical Care I have personally spent greater than 400 minutes of critical care time in the direct management of this patient. This includes bedside care, interpretation of diagnostic studies, and testing, discussion with consultants, patient, and family members, and other required patient management activities. This 180 minutes is in excess of all separately billable procedures. Scribe Attestation The scribe's documentation has been prepared under my direction and personally reviewed by me in its entirety. I confirm that the note above accurately reflects all work, treatment, procedures, and medical decision making performed by me. Departure Information Dispostion Transfer Acute Care Facility Referrals Fabio Tai M.D. (PCP) Patient Instructions My [facility] Problem Qualifiers Primary Impression: Acute liver failure Hepatic coma status: without hepatic coma Qualified Codes: K72.00 - Acute and subacute hepatic failure without coma
[2017-05-21 13:29] VITALS: O2SAT 100
[2017-05-21 13:53] LABS: BASO % 0.4 %; BASO ABS # 0.04 K/uL (0-0.2); COMPLETE YES; EOS % 0.3 %; HEMATOCRIT 33.9 % (37-47); LYMPH % 10.3 %; LYMPH ABS # 0.94 K/uL (1.2-3.4); MEAN CELL VOLUME 96.6 fL (80-100); MEAN CORPUSCULAR HGB CONC 34.2 g/dl (32-36); MONO % 1.6 %; NEUT % 86.4 %; PLATELET COUNT 217 K/uL (130-400); RED BLOOD COUNT 3.51 M/uL (4.2-5.4); WHITE BLOOD COUNT 9.17 K/uL (4.8-10.8)
[2017-05-21] MEDS ORDERED: VANCOMYCIN 1GM/270ML NSS IV STA (13:55)
[2017-05-21] MEDS ORDERED: PIPERACILLIN/TAZOBACTAM 4.5 GM/100ML D5W IV STA (13:55)
[2017-05-21 14:00] LABS: BLOOD UREA NITROGEN 3 mg/dl (7-18); BUN/CREATININE RATIO 2.9 (10-20); CALCIUM 8.2 mg/dl (8.5-10.1); CARBON DIOXIDE 27 mmol/L (21-32); CHLORIDE 95 mmol/L (98-107); GLUCOSE 91 mg/dl (70-99); POTASSIUM 3.5 mmol/L (3.5-5.1); SODIUM 132 mmol/L (136-145)
[2017-05-21 14:14] LABS: PARTIAL THROMBOPLASTIN RATIO 1.8
[2017-05-21 14:15] LABS: ALB/GLOB RATIO 0.6 (0.9-2); ALKALINE PHOSPHATASE 250 U/L (45-117); ALT/SGPT 1656 U/L (12-78); CKMB/CK RATIO 0.9 (0-3.0)
[2017-05-21 14:51] LABS: INR > 8.0 (0.9-1.1); PROTHROMBIN TIME (PATIENT) > 100.0 SECONDS (9.0-12.0)
[2017-05-21 14:54] LABS: AST/SGOT 11043 U/L (15-37)
[2017-05-21] MEDS ORDERED: ACETYLCYSTEINE IV 21 HOUR REGIMEN IV STA (15:00)
[2017-05-21] MEDS ORDERED: PHYTONADIONE INJ 10 MG in SODIUM CHLORIDE 0.9% 50ML 50 ML IV STA (15:02)
--- NOTE | 2017-05-21 15:09 | DIAGNOSTIC IMAGING REPORT ---
LEFT ANKLE 3 VIEWS CLINICAL HISTORY: Left ankle pain. Wound. FINDINGS: 3 views of left ankle are compared to study dated 04/30/2017. The skeletal structures are heterogeneously osteopenic. There is evidence of hardware removal in the distal tibia and fibula. Antibiotic relative also likely been removed. No fracture is seen. The ankle mortise appears intact. Bony erosion/resorption is identified involving the distal fibula PA and overlying soft tissue edema is noted. There is a large plantar calcaneal enthesophyte. Soft tissue edema is present around the ankle and there is a joint effusion. Numerous skin clips are noted. IMPRESSION: 1. Heterogeneous osteopenia and postoperative change as above with no radiographic evidence of fracture. 2. Erosion/absorptive change is seen in the distal fibula/lateral malleolus. This is nonspecific and may be related to previous surgery. Osteomyelitis would be impossible to exclude and clinical correlation will be required. 3. Diffuse soft tissue edema and joint effusion. Electronically signed by: Angus Marte M.D. 05/21/2017 3:08 PM Dictated Date/Time: 05/21/2017 3:05 PM
[2017-05-21 15:10] LABS: URINE APPEARANCE CLOUDY (CLEAR); URINE BILIRUBIN NEG (NEG); URINE COLOR ORANGE; URINE EPITHELIAL CELL AUTO 20-30 /lpf (0-5); URINE NITRITE POS (NEG); URINE PH 6.5 (4.5-7.5); URINE SPECIFIC GRAVITY 1.016 (1.000-1.030); UROBILINOGEN NEG (NEG); ZZUR CULT IF INDIC CLEAN CATCH YES
--- NOTE | 2017-05-21 15:12 | DIAGNOSTIC IMAGING REPORT ---
ABDOMEN 2VIEW W/PA CHEST RTN CLINICAL HISTORY: 57 years-old Female presenting with Pt c/o N V. TECHNIQUE: PA view of the chest and supine and upright views of the abdomen were obtained. COMPARISON: 02/04/2017. FINDINGS: Interval removal of the right upper extremity PICC. Atherosclerosis of aortic arch. Cardiac silhouette normal. Suspected calcified granuloma in the right midlung. Lungs and pleural spaces otherwise clear. Mild diffuse gaseous distention of small bowel with an apparent maximal diameter of 3.5 cm, although this may be affected by magnification. Suggestion of mild small bowel wall thickening in the left mid abdomen. No convincing evidence of bowel obstruction. No pneumoperitoneum. No emelyn calcifications project over the kidneys to suggest nephrolithiasis. Extensive bilateral iliac vascular stents as well as left femoral vascular stent. Degenerative changes of the lumbar spine. IMPRESSION: 1. Interval removal of the right upper extremity PICC. 2. No acute cardiopulmonary disease. 3. Mild apparent gaseous distention of small bowel without convincing evidence of obstruction. Suggestion of small bowel wall thickening in the left mid abdomen. This could represent enteritis with mild ileus. Further evaluation with contrast-enhanced CT of the abdomen and pelvis as clinically indicated. Electronically signed by: Titus Winston M.D. 05/21/2017 3:10 PM Dictated Date/Time: 05/21/2017 3:07 PM
[2017-05-21 15:13] LABS: MANUAL MICROSCOPIC REQUIRED? NO; REVIEW REQ? NO
[2017-05-21] MEDS ORDERED: ACETYLCYSTEINE IV SCH ×2 (15:15→20:24)
[2017-05-21] MEDS ORDERED: DEXTROSE 5% IV SCH ×2 (15:15→20:24)
[2017-05-21] MEDS ORDERED: OPTIRAY 320 IV PRN (15:30)
--- NOTE | 2017-05-21 16:37 | Gastrointestinal Consultation ---
Gastrointestinal Consultation Date of Consultation: May 21, 2017 Attending Physician: Carlo Palomino Consulting Physician: Jacek Burch Reason for Consultation: Elevated LFTs History of Present Illness Patient is a 57 year old female w PVD, chronic L leg wound infection who was referred to ED from her wound care center for hx of n/v x 3 days. GI asked to see her in ED as her initial labs showed markedly elevated LFTs that's a new finding: Tbili 0.8, AST 76238, ALT 1600, Alk phos 250. She had been on Coumadin for Afib since September, INR >8. Kidney function normal. Lipase pending. ETOH, APAP levels, autoimmune and acute hepatitis markers have been obtained and pending. RUQ u/s order but hasn't been done. There is a prior CT abd/pelvis done 09/2016 w grossly normal liver. 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 She had been managed by Dr. Bhatia from Infectious Disease. Also had seen Orthopaedic, Vascular Surgery [place] [facility]. About 6 weeks ago, IV antibx had been DC'd and she was started on Augmentin. No other new medications within the last 2-3 months other that the antibx. She also noted to have severe pain on L leg wound, needing Oxycodone and she had been taking up to 6 -325mg APAP tabs almost daily for last week or so. She drinks on average 2-4beers daily. Denies any tattoos, body piercing, illicit drugs. No sick contact, blood transfusions hx. She denies eating raw/undercooked meats/ seafoods, mushrooms, nor had gone camping or drinking well water. She denies having fever, chills, CP, SOB, abd pain ,+ n/v x 3 days as above. No jaundice, + dark urine per her report just today. Denies blood in stools. There's a liquid greenish stool specimen in her bedside commode. Past Medical/Surgical History Medical Problems: (1) Acute liver failure Status: Acute (2) Contusion of ankle, left Status: Acute (3) Lower extremity edema Status: Acute (4) Trimalleolar fracture of ankle, closed Status: Acute Past Medical History: As above Afib, HTN, anxiety, dyslipidemia, Past Surgical History: Femoral artery stent placement, endarterectomy Family History Hypertension FATHER MOTHER Not related to current ED visit Social History Smoking Status: Former Smoker Alcohol Use: occasionally Drug Use: none Marital Status: Housing Status: lives with family Occupation Status: disabled Allergies Coded Allergies: Adhesives (Verified Allergy, Mild, 05/21/17) Guanfacine (Verified Allergy, Unknown, 05/21/17) Nifedipine (Verified Allergy, Unknown, 05/21/17) Current Medications Home Meds and Scripts Medications Dose Route/Sig Max Daily Dose Days Date Category Jantoven (Warfarin Sodium) 5 Mg Tab 5 Mg PO DAILY 05/21/17 Reported Ambien (Zolpidem Tartrate) 5 Mg Tab 5 Mg PO HS PRN 04/30/17 Reported Wellbutrin Xl (Bupropion Hcl) 150 Mg Tab 150 Mg PO DAILY 04/30/17 Reported Augmentin 875-125 mg (Amoxicillin & Pot Clavulanate) 1 Tab Tab 1 Tab PO BID 04/30/17 Reported Oxycodone HCl 5 Mg Tab 5-10 Mg PO Q4 PRN 04/30/17 Reported Tylenol Extra Strength (Acetaminophen) 500 Mg Tab 2 Tabs PO Q8H 21 04/01/17 Rx Fentanyl 12 Mcg Tdsy 12 Mcg TD Q3D 5 04/01/17 Rx Norvasc (Amlodipine Besylate) 10 Mg Tab 10 Mg PO DAILY 03/22/17 Reported Zofran (Ondansetron HCl) 8 Mg Tab 8 Mg PO PRN 03/22/17 Reported Sotalol HCl 80 Mg Tab 80 Mg PO BID 30 12/23/16 Rx Zantac (Ranitidine HCl) 300 Mg Tab 300 Mg PO HS 10/08/16 Reported Protonix (Pantoprazole Sodium) 40 Mg Tab 40 Mg PO DAILY 10/08/16 Reported Prozac (Fluoxetine HCl) 20 Mg Cap 20 Mg PO DAILY 10/08/16 Reported Aspirin Ec (Aspirin) 81 Mg Tab 81 Mg PO DAILY 10/08/16 Reported Lipitor (Atorvastatin Calcium) 80 Mg Tab 80 Mg PO HS 10/08/16 Reported Plavix (Clopidogrel Bisulfate) 75 Mg Tab 75 Mg PO DAILY 10/08/16 Reported Review of Systems Constitutional: No fever, No chills Respiratory: No cough, No shortness of breath Cardiac: No chest pain Abdomen: + nausea, + vomiting, + diarrhea, No pain, No GI bleeding Skin: No rash, No itch, No jaundice Physical Exam Date Time Temp Pulse Resp B/P (MAP) Pulse Ox O2 Delivery O2 Flow Rate FiO2 05/21/17 16:04 138/81 05/21/17 14:31 155/134 05/21/17 14:16 78 11 97 05/21/17 14:01 185/89 05/21/17 13:46 73 17 96 05/21/17 13:43 77 05/21/17 13:42 160/92 05/21/17 13:29 100 Room Air 05/21/17 12:24 36.7 79 20 114/81 100 Room Air General Appearance: + mild distress (c/o L leg pain ) Eyes: normal inspection, PERRL, EOMI Neck: supple, no JVD, trachea midline Respiratory/Chest: normal breath sounds, no respiratory distress, no accessory muscle use Cardiovascular: regular rate, rhythm, no gallop, no murmur Abdomen: normal bowel sounds, non tender, soft Extremities: + pertinent finding (L leg wound w dressing CDI, pt c/o pain on that area ) Neurologic/Psych: alert, normal mood/affect, oriented x 3 Skin: normal color, no jaundice, no rash Laboratory Results Last 24 Hours Test 05/21/17 13:30 05/21/17 13:38 05/21/17 14:55 05/21/17 15:28 White Blood Count 9.17 K/uL Red Blood Count 3.51 M/uL Hemoglobin 11.6 g/dL Hematocrit 33.9 % Mean Corpuscular Volume 96.6 fL Mean Corpuscular Hemoglobin 33.0 pg Mean Corpuscular Hemoglobin Concent 34.2 g/dl Platelet Count 217 K/uL Mean Platelet Volume 11.0 fL Neutrophils (%) (Auto) 86.4 % Lymphocytes (%) (Auto) 10.3 % Monocytes (%) (Auto) 1.6 % Eosinophils (%) (Auto) 0.3 % Basophils (%) (Auto) 0.4 % Neutrophils # (Auto) 7.92 K/uL Lymphocytes # (Auto) 0.94 K/uL Monocytes # (Auto) 0.15 K/uL Eosinophils # (Auto) 0.03 K/uL Basophils # (Auto) 0.04 K/uL RDW Standard Deviation 61.7 fL RDW Coefficient of Variation 17.9 % Immature Granulocyte % (Auto) 1.0 % Immature Granulocyte # (Auto) 0.09 K/uL Nucleated RBC Absolute Count (auto) 0.02 K/uL Nucleated Red Blood Cells % 0.2 % Prothrombin Time > 100.0 SECONDS Prothromb Time International Ratio > 8.0 Activated Partial Thromboplast Time 47.4 SECONDS Partial Thromboplastin Ratio 1.8 Sodium Level 132 mmol/L Potassium Level 3.5 mmol/L Chloride Level 95 mmol/L Carbon Dioxide Level 27 mmol/L Anion Gap 10.0 mmol/L Blood Urea Nitrogen 3 mg/dl Creatinine 1.00 mg/dl Est Creatinine Clear Calc Drug Dose 56.2 ml/min Estimated GFR () 72.4 Estimated GFR (Non- 62.5 BUN/Creatinine Ratio 2.9 Random Glucose 91 mg/dl Calcium Level 8.2 mg/dl Total Bilirubin 0.8 mg/dl Aspartate Amino Transf (AST/SGOT) 62588 U/L Alanine Aminotransferase (ALT/SGPT) 1656 U/L Alkaline Phosphatase 250 U/L Total Creatine Kinase 66 U/L Creatine Kinase MB 0.6 ng/ml Creatine Kinase MB Ratio 0.9 Troponin I < 0.015 ng/ml Total Protein 6.2 gm/dl Albumin 2.3 gm/dl Globulin 3.9 gm/dl Albumin/Globulin Ratio 0.6 Bedside Lactic Acid Venous 3.85 mmol/L Urine Color ORANGE Urine Appearance CLOUDY Urine pH 6.5 Urine Specific Rogers 1.016 Urine Protein 1+ Urine Glucose (UA) NEG Urine Ketones NEG Urine Occult Blood 2+ Urine Nitrite POS Urine Bilirubin NEG Urine Urobilinogen NEG Urine Leukocyte Esterase LARGE Urine WBC (Auto) >30 /hpf Urine RBC (Auto) 0-4 /hpf Urine Hyaline Casts (Auto) 1-5 /lpf Urine Epithelial Cells (Auto) 20-30 /lpf Urine Bacteria (Auto) NEG Test 05/21/17 15:36 Impression Patient is a 57 year old female seen for n/v x 3 days, and mainly new finding of elevated LFT: AST >12394, AST 1000s, AP 250, normal Tbili. Currently acute hepatitis, autoimmune serologies, u/s imaging, ETOH/APAP levels pending. Suspect DILI ? Augmentin + APAP uses. Other DDx include AIH, viral hepatitis, Budd chiari, PVT. Plan - Discussed case w Dr. Burch and Dr. Palomino: pt would need Mucomyst protocol for possible DILI. Given risk for acute liver failure, would recommend transfer to tertiary care ([facility] which pt is agreeable to go to since her Vascular Surgery /Ortho team managing her L leg wound is at [facility] anyway. - If she's kept here in case no beds available at [facility] and LFTs not improving would recommend consider starting her on steroids for possible AIH. Monitor LFTs, coags, kidney function daily. Consider CT abd/pelvis to r/o Maik rice in addition to RUQ u/s. F/U pending labs as noted above. I saw and evaluated the patient in the emergency room. Gastroenterology as consult to due to a significant elevation of the patient's liver associated enzymes. The patient has been on Augmentin for 6-8 weeks in addition to long- term use of acetaminophen. There've been no recent blood transfusions tattoos or travel outside the country. Physical examination No obvious distress No abdominal tenderness Impression: Patient with a significant liver enzyme elevation. Given the elevation I would wonder about viral, toxin /drug or possibly autoimmune etiologies to her presentation. Her coagulopathy is likely related to her use of Coumadin however, I would suggest referral to a tertiary center as hepatology evaluation may be required. Recommendations Begin acetylcysteine Please do a urine drug screen Please do a screen for acetaminophen blood levels Screen for autoimmune disease with AMA, ASMA, IgG total Viral serologies: HAV IgM + total, HBV S ag / ab / core + HBV DNA, Monospot, HCV RNA, CMV serologies CT with IV contrast (r/o Maik Rice) Consider referral to a tertiary Center.
[2017-05-21 16:48] LABS: FERRITIN 17728.1 ng/ml (8.0-388.0)
[2017-05-21] MEDS ORDERED: PROMETHAZINE HCL INJ 50 MG/ML 1 ML VIAL/AMP IM ONE (17:04)
[2017-05-21] MEDS: DEXTROSE 5% IV SCH ×2 (17:35→18:06)
[2017-05-21] MEDS: ACETYLCYSTEINE IV SCH ×2 (17:35→18:06)
[2017-05-21] MEDS ORDERED: SUCCINYLCHOLINE CHLORIDE 20 MG/ML 10 ML VIAL IV STA (18:27)
[2017-05-21] MEDS ORDERED: VECURONIUM BROMIDE 10 MG VIAL IV STA (18:27)
[2017-05-21] MEDS ORDERED: ETOMIDATE 2 MG/ML 20 ML VIAL IV STA (18:27)
[2017-05-21] MEDS ORDERED: MIDAZOLAM HCL 5 MG/ML 1 ML VIAL IV STA (18:29)
[2017-05-21] MEDS ORDERED: PROPOFOL IV EMULSION 10 MG/ML 100 ML VIAL IV PRN ×2 (18:30→19:00)
[2017-05-21] MEDS ORDERED: RAPID SEQUENCE INDUCTION BAG ONE (18:34)
--- NOTE | 2017-05-21 19:00 | DIAGNOSTIC IMAGING REPORT ---
CHEST ONE VIEW PORTABLE CLINICAL HISTORY: 57 years-old Female presenting with intubation. TECHNIQUE: Portable semiupright AP view of the chest was obtained. COMPARISON: 05/21/2017 at 3:03 PM. FINDINGS: Overlying external leads degrade image quality. Interval intubation with the endotracheal tube terminating in the upper thoracic trachea, 4.8 cm from the roque. Atherosclerosis of aortic arch. Cardiac silhouette normal. Lungs and pleural spaces clear. Osseous structures normal. Upper abdomen normal. IMPRESSION: 1. Appropriately positioned endotracheal tube. 2. No focal infiltrate. Electronically signed by: Titus Winston M.D. 05/21/2017 6:59 PM Dictated Date/Time: 05/21/2017 6:57 PM
--- NOTE | 2017-05-21 19:39 | DIAGNOSTIC IMAGING REPORT ---
ABD/PELVIS IV CONTRAST ONLY CLINICAL HISTORY: 57 years-old Female presenting with Pt c/o RUQ abd pain. TECHNIQUE: Multidetector CT of the abdomen and pelvis was performed after the administration of intravenous contrast. IV contrast: 93 mL of Optiray 320. A dose lowering technique was used consistent with the principles of ALARA (as low as reasonably achievable). COMPARISON: 10/10/2016. CT DOSE (mGy.cm): The estimated cumulative dose is 719.30 mGycm. FINDINGS: Marketing Strategy Analyst topogram: Biiliac stent grafts in place. Left femoral catheter noted. Lung bases: Minimal dependent reticulation likely atelectasis. Normal heart size. Coronary artery calcification. No pericardial or pleural effusion. Liver: Normal morphology. No liver lesion. Patent hepatic vasculature. Biliary: No intrahepatic or extrahepatic biliary ductal dilatation. Normal gallbladder, which is physiologically distended. Pancreas: Normal. Spleen: Few scattered parenchymal calcifications may indicate old granulomatous disease. Adrenal glands: Redemonstration of the left adrenal gland nodules, in the lateral limb measuring 2.4 cm superiorly and more inferiorly in the lateral limb measuring 1.9 cm, not significant changed from prior. These demonstrate heterogeneous enhancement and previously demonstrated to be benign adenomas. Right adrenal gland normal. Kidneys and ureters: Renal vascular calcification noted. No nephrolithiasis. Few subcentimeter hypodensities in the kidneys to small to characterize but likely cysts. Mild dilatation of the right renal collecting system and proximal right ureter without evidence of an obstructing calculus or mass. The mid to distal right ureter is decompressed. No left hydronephrosis. Left ureter normal. Bladder: Circumferential mild wall thickening, which may be chronic. A Torres catheter and completely decompresses the urinary bladder. Intraluminal gas likely related to the Torres. Pelvic organs: Uterus and ovaries normal. Bowel: Mild apparent wall thickening of the right colon with intramural fat deposition. No pericolonic fat stranding. No bowel obstruction. Peritoneal cavity: No free fluid or intraperitoneal gas. Vasculature: Atherosclerosis of the normal caliber abdominal aorta. IVC patent. Evidence of bilateral iliac stents, which are grossly patent. Infiltration overlying the common femoral region likely indicates either surgical change. Atherosclerotic plaque narrows the right superficial femoral artery. A stent is noted within the left superficial femoral artery, patency difficult to evaluate. Left femoral venous catheter terminates in the left external iliac vein. Lymph nodes: Enlarged left external iliac lymph node measuring 9 mm in the short axis (series 3 image [id number]). Prominent portacaval lymph node and few peripancreatic lymph nodes. Abdominal wall: Postsurgical changes along the inguinal regions. Musculoskeletal: Degenerative changes of the spine. IMPRESSION: 1. Mild circumferential bladder wall thickening. Although this appears to be somewhat chronic, cystitis cannot be excluded. Correlate with urinalysis. 2. Mild dilatation of the right renal collecting system without convincing evidence of hydronephrosis. Mild dilatation of the proximal to mid right ureter without evidence of an obstructing calculus or mass. No evidence of pyelonephritis. 3. Mild apparent wall thickening of the right colon with intramural fat deposition. This could suggest chronic inflammation. No active inflammation at this time. 4. Bilateral iliac stents, which are grossly patent. Left superficial femoral stent also noted. 5. Left femoral venous catheter terminates in the left external iliac vein. 6. Stable appearance of left adrenal gland nodules, previously demonstrated to be benign adenomas. 7. Nonspecific mildly prominent left external iliac lymph node and upper abdominal lymph nodes. These may be reactive. Electronically signed by: Titus Winston M.D. 05/21/2017 7:38 PM Dictated Date/Time: 05/21/2017 7:23 PM
[2017-05-21 20:35] VITALS: BP 141/91; PULSE 93; TEMP 36.7; O2SAT 95
[2017-05-22] MEDS ORDERED: ETOMIDATE 2 MG/ML 20 ML VIAL IV ONE (12:20)
[2017-05-22] MEDS ORDERED: VECURONIUM BROMIDE 10 MG VIAL IV ONE (12:20)
[2017-05-22] MEDS ORDERED: SUCCINYLCHOLINE CHLORIDE 20 MG/ML 10 ML VIAL IV ONE (12:20)
[2017-05-22] MEDS ORDERED: MIDAZOLAM HCL 5 MG/ML 2ML VIAL IV ONE (12:20)
[2017-05-26 15:40] LABS: ALPHA-1-ANTITRYPSIN TC 67710E 153 MG/DL (83-199); EBV EARLY ANTIGEN AB <9.00 U/ML
== END 2017-05-21 20:50 | disposition short-term general hospital (02) ==
LOC: C.EDB 12:19
DX: K72.00 Acute and subacute hepatic failure without coma (principal); I73.9 Peripheral vascular disease, unspecified; I48.91 Unspecified atrial fibrillation; I10 Essential (primary) hypertension; F41.9 Anxiety disorder, unspecified; E78.5 Hyperlipidemia, unspecified; F32.9 Major depressive disorder, single episode, unspecified; Z86.718 Personal history of other venous thrombosis and embolism; Z82.49 Family history of ischemic heart disease and other diseases of the circulatory system; Z87.891 Personal history of nicotine dependence; Z79.01 Long term (current) use of anticoagulants; Z79.899 Other long term (current) drug therapy; Z79.02 Long term (current) use of antithrombotics/antiplatelets; Z79.82 Long term (current) use of aspirin; T81.89XA Other complications of procedures, not elsewhere classified, initial encounter; Y83.8 Other surgical procedures as the cause of abnormal reaction of the patient, or of later complication, without mention of misadventure at the time of the procedure

== ENCOUNTER 2017-08-15 13:35 | Inpatient (IN) | payer BC ==
[~2017-08-15] VITALS: Ht 157.5 cm; Wt 64.5 kg
[~2017-08-15 13:35] MED LIST changes: -WARF-246 PO
[2017-08-15] MEDS ORDERED: ONDANSETRON INJ 2 MG/ML 2 ML VIAL IV STA (14:35)
[2017-08-15] MEDS ORDERED: MoRPHine SULFATE 4 MG/ML 1 ML CARP\\VIAL IV STA (14:35)
[2017-08-15 15:08] LABS: BASO % 0.8 %; BASO ABS # 0.06 K/uL (0-0.2); COMPLETE YES; EOS % 1.5 %; HEMATOCRIT 41.4 % (37-47); IG% 0.1 %; LYMPH % 34.8 %; LYMPH ABS # 2.58 K/uL (1.2-3.4); MEAN CORPUSCULAR HEMOGLOBIN 31.6 pg (25-34); MEAN CORPUSCULAR HGB CONC 35.5 g/dl (32-36); MEAN PLATELET VOLUME 10.9 fL (7.4-10.4); MONO % 5.9 %; NEUT % 56.9 %; PLATELET COUNT 259 K/uL (130-400); RED BLOOD COUNT 4.65 M/uL (4.2-5.4); WHITE BLOOD COUNT 7.42 K/uL (4.8-10.8)
[2017-08-15] MEDS ORDERED: SOTA80TA PO (15:10)
[2017-08-15 15:20] LABS: INR 1.3 (0.9-1.1); PROTHROMBIN TIME (PATIENT) 13.9 SECONDS (9.0-12.0)
[2017-08-15 15:25] LABS: BUN/CREATININE RATIO 13.1 (10-20); CREATININE 0.6 mg/dl (0.60-1.20); POTASSIUM 4.1 mmol/L (3.5-5.1)
[2017-08-15 15:28] LABS: ALB/GLOB RATIO 0.8 (0.9-2)
--- NOTE | 2017-08-15 15:38 | EMERGENCY ROOM VISIT NOTE ---
History First contact with patient: 14:19 Chief Complaint: LEG PAIN,LEG INJURY Stated Complaint: LEFT LEG INFECTION,PAINFUL History of Present Illness The patient is a 57 year old female who presents to the Emergency Room with complaints of severe pain in her left leg that started yesterday. The patient reports that the pain is at the distal end of the stump. The patient had a below the knee amputation in April 2017. She has been fighting osteomyelitis/ PAD the entire year. The patient came into the emergency department in April. She was found to be in liver failure. The patient was flown to [facility]. The amputation was done at [place]. The patient is not currently on antibiotics. She denies any other associated symptoms such as fever, chills, body ache or nausea. There was a small scab on the medial aspect of the stump from the prosthetic rubbing. She notes that it bled a little bit earlier in the week. No purulent drainage. 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 (12) Osteomyelitis of left fibula (13) Paroxysmal atrial fibrillation (14) PVD (peripheral vascular disease) (15) SOB (shortness of breath) (16) Surgical wound infection Surgical Problems: (1) H/O vascular surgery (2) History of appendectomy (3) Status post ORIF of fracture of ankle Left BKA Family History Hypertension FATHER MOTHER Social History Smoking Status: Former Smoker Alcohol Use: occasionally Drug Use: none Marital Status: Housing Status: lives with family Occupation Status: disabled Current/Historical Medications Scheduled Amlodipine (Norvasc), 10 MG PO DAILY Aspirin (Aspirin Ec), 81 MG PO DAILY Atorvastatin (Lipitor), 80 MG PO HS Bupropion Hcl (Wellbutrin Xl), 150 MG PO DAILY Clopidogrel (Plavix), 75 MG PO DAILY Fluoxetine (Prozac), 20 MG PO DAILY Pantoprazole (Protonix), 40 MG PO DAILY Ranitidine (Zantac), 300 MG PO HS Sotalol Hcl (Sotalol Hcl), 80 MG PO BID Warfarin Sod (Jantoven), 5 MG PO DAILY Scheduled PRN Ondansetron Hcl (Zofran), 8 MG PO for Nausea Oxycodone HCl (Oxycodone HCl), 5-10 MG PO Q4 PRN for Pain Zolpidem Tartrate (Ambien), 5 MG PO HS PRN for Sleep Physical Exam Vital Signs Date Time Temp Pulse Resp B/P (MAP) Pulse Ox O2 Delivery O2 Flow Rate FiO2 08/15/17 17:05 114 20 141/94 97 Room Air 08/15/17 16:57 127 18 111/87 99 Room Air 08/15/17 16:46 152 08/15/17 16:18 92 18 128/80 100 Room Air 08/15/17 15:17 86 08/15/17 15:13 84 20 149/92 97 Room Air 08/15/17 13:40 36.8 99 20 150/100 97 Room Air Physical Exam VITALS: Vitals are noted on the nurse's note and reviewed by myself. Vital signs stable. GENERAL: 77-year-old female, in no acute distress, nondiaphoretic, well- developed well-nourished. SKIN: The skin was without rashes, erythema, edema, or bruising. No jaundice noted. HEAD: Normocephalic atraumatic. MOUTH: Mucous membranes slightly dry. NECK: Supple without nuchal rigidity. No JVD. HEART irregularly irregular rhythm without murmurs gallops or rubs. LUNGS: Clear to auscultation bilaterally without wheezes, rales or rhonchi. No accessory muscle use. ABDOMEN: Positive bowel sounds x 4.Soft, nontender, without organomegaly. No guarding or rebound tenderness. MUSCULOSKELETAL: Left BKA noted. Small, well-healing scab noted in medial aspect of the incision site. No significant erythema, drainage or foul odor noted. There is slight diffuse nonpitting edema in the stump. Significant tenderness to palpation noted. No erythematous streaking proximally. NEURO: Patient was alert and oriented to person place and time. Normal sensation to touch. No focal neurological deficits. Medical Decision & Procedures ER Provider Diagnostic Interpretation: tib/fib xray L TIBIA/FIBULA 2 VIEWS ROUTINE CLINICAL HISTORY: Left lower leg infection. Assess for osteomyelitis. COMPARISON STUDY: Left tibia/fibula 12/13/2016. FINDINGS: Patient is status post a below the knee amputation. No cortical destruction to suggest osteomyelitis at the amputated fibula or tibia. There is heterotopic ossification surrounding the distal fibula and tibia. Mild soft tissue swelling at the stump. No fractures. Vascular calcifications and the superficial femoral arterial stent are noted. IMPRESSION: Prior below the knee amputation. No radiographic evidence for osteomyelitis. Electronically signed by: Manan Colmenares M.D. 08/15/2017 4:50 PM Dictated Date/Time: 08/15/2017 4:47 PM The status of this report is Signed. Draft = Not yet reviewed or approved by Radiologist. Signed = Reviewed and approved by Radiologist. Laboratory Results 08/15/17 14:55 Red Blood Count 4.65, Mean Corpuscular Volume 89.0, Mean Corpuscular Hemoglobin 31.6, Mean Corpuscular Hemoglobin Concent 35.5, Mean Platelet Volume 10.9, Neutrophils (%) (Auto) 56.9, Lymphocytes (%) (Auto) 34.8, Monocytes (%) (Auto) 5.9, Eosinophils (%) (Auto) 1.5, Basophils (%) (Auto) 0.8, Neutrophils # (Auto) 4.22, Lymphocytes # (Auto) 2.58, Monocytes # (Auto) 0.44, Eosinophils # (Auto) 0.11, Basophils # (Auto) 0.06 08/15/17 14:55 Test 08/15/17 14:55 White Blood Count 7.42 K/uL (4.8-10.8) Red Blood Count 4.65 M/uL (4.2-5.4) Hemoglobin 14.7 g/dL (12.0-16.0) Hematocrit 41.4 % (37-47) Mean Corpuscular Volume 89.0 fL (80-100) Mean Corpuscular Hemoglobin 31.6 pg (25-34) Mean Corpuscular Hemoglobin Concent 35.5 g/dl (32-36) Platelet Count 259 K/uL (130-400) Mean Platelet Volume 10.9 fL (7.4-10.4) Neutrophils (%) (Auto) 56.9 % Lymphocytes (%) (Auto) 34.8 % Monocytes (%) (Auto) 5.9 % Eosinophils (%) (Auto) 1.5 % Basophils (%) (Auto) 0.8 % Neutrophils # (Auto) 4.22 K/uL (1.4-6.5) Lymphocytes # (Auto) 2.58 K/uL (1.2-3.4) Monocytes # (Auto) 0.44 K/uL (0.11-0.59) Eosinophils # (Auto) 0.11 K/uL (0-0.5) Basophils # (Auto) 0.06 K/uL (0-0.2) RDW Standard Deviation 49.0 fL (36.4-46.3) RDW Coefficient of Variation 15.2 % (11.5-14.5) Immature Granulocyte % (Auto) 0.1 % Immature Granulocyte # (Auto) 0.01 K/uL (0.00-0.02) Erythrocyte Sedimentation Rate 12 mm/hr (0-21) Prothrombin Time 13.9 SECONDS (9.0-12.0) Prothromb Time International Ratio 1.3 (0.9-1.1) Anion Gap 12.0 mmol/L (3-11) Est Creatinine Clear Calc Drug Dose 81.8 ml/min Estimated GFR () 117.3 Estimated GFR (Non- 101.2 BUN/Creatinine Ratio 13.1 (10-20) Calcium Level 9.0 mg/dl (8.5-10.1) Total Bilirubin 0.3 mg/dl (0.2-1) Aspartate Amino Transf (AST/SGOT) 25 U/L (15-37) Alanine Aminotransferase (ALT/SGPT) 16 U/L (12-78) Alkaline Phosphatase 105 U/L (45-117) C-Reactive Protein < 0.29 mg/dl (0-0.29) Total Protein 7.9 gm/dl (6.4-8.2) Albumin 3.5 gm/dl (3.4-5.0) Globulin 4.4 gm/dl (2.5-4.0) Albumin/Globulin Ratio 0.8 (0.9-2) Procalcitonin < 0.05 ng/ml (0-0.5) Medications Administered Medications (Trade) Dose Ordered Sig/Rosa Route Start Time Stop Time Status Last Admin Dose Admin Morphine Sulfate (MoRPHine SULFATE INJ) 4 mg ONE STAT IV 08/15/17 14:35 08/15/17 14:37 DC 08/15/17 15:06 4 MG Ondansetron HCl (Zofran Inj) 4 mg NOW STAT IV 08/15/17 14:35 08/15/17 14:37 DC 08/15/17 15:07 4 MG Hydromorphone HCl (Dilaudid Inj) 1 mg ONE ONCE IV 08/15/17 16:15 08/15/17 16:16 DC 08/15/17 16:18 1 MG Sodium Chloride 500 ml @ 999 mls/hr Q31M STAT IV 08/15/17 17:01 08/15/17 17:31 DC 08/15/17 17:03 999 MLS/HR Vancomycin HCl 1000 mg/Sodium Chloride 270 ml @ 125 mls/hr NOW STAT IV 08/15/17 17:11 08/15/17 19:36 DC 08/15/17 20:57 125 MLS/HR Piperacillin Sod/ Tazobactam Sod (Zosyn Iv) 4.5 gm NOW STAT IV 08/15/17 17:15 08/15/17 17:16 DC 08/15/17 17:51 4.5 GM ED Course Patient was seen and examined Vital signs including blood pressure were reviewed medications list was verified with patient Labs were obtained, and a saline lock was established The patient was given morphine 4 mg IV and Zofran 4 mg IV. Upon reevaluation, she was still complaining of pain. She was given Dilaudid 1 mg IV. Upon reevaluation, the patient was more comfortable. We attempted to get x-rays of her leg. This was done successfully, however the patient's heart rate began to increase. It appeared that she was in rapid A. fib. An EKG was performed. A 500 mL bolus was given. The patient was seen and examined by myself supervising physician. He tried carotid massage and vasovagal techniques. This did not significantly improve her symptoms. The patient was given a second bolus of 500 mL. It appears that she is in rapid A. fib. However, her rate was improving with fluids. The patient's workup was reviewed. She was given 1 dose of Vanco and Zosyn. I spoke with case management. I then discussed the case with the [facility] hospitalist group, who kindly agreed to admit the patient for further workup and treatment. The patient's blood pressure remained stable. Medical Decision Differential diagnosis: Cellulitis, osteomyelitis, chronic pain syndrome, sepsis This patient is a 57-year-old female with a history of peripheral artery disease /osteomyelitis status post left BKA that presented to the emergency department with a main complaint of severe pain in the left stump. On exam, she did have slight swelling of the stump. There was no significant erythema. It was significantly tender to touch. She was afebrile. Her workup revealed no leukocytosis. Her lactate was significantly elevated. An x-ray was performed. No signs of osteomyelitis were noted. The patient went into rapid atrial fibrillation after she sat up for her x-rays. At first, this looks like a possible sinus tachycardia. It did not respond to carotid massage or other vasovagal techniques. He did however responded to fluids. I believe she possibly went into this arrhythmia secondary to an infectious process. She was started on broad-spectrum antibiotics. I do not feel comfortable discharging the patient home. The hospitalist group agreed to admit the patient for further workup and treatment. This chart was completed in part utilizing [employer] Speech Voice Recognition software. Attempts were made to minimize the grammatical errors, random word insertions, pronoun errors and incomplete sentences. Any formal questions or concerns about the content, text or information contained within the body of this dictation should be directly addressed to the provider for clarification. Medication Reconcilliation Current Medication List: was personally reviewed by me Blood Pressure Screening Patient's blood pressure: Elevated blood pressure Blood pressure disposition: Did not require urgent referral Consults Consulting Physician: Crystal vásquezist Impression Primary Impression: Cellulitis Additional Impression: Rapid atrial fibrillation Departure Information Referrals Fabio Tai M.D. (PCP) Patient Instructions My [facility] Problem Qualifiers
[2017-08-15] MEDS ORDERED: HYDROmorphone INJ 1 MG/ML SYR IV ONE (16:15)
--- NOTE | 2017-08-15 16:51 | DIAGNOSTIC IMAGING REPORT ---
L TIBIA/FIBULA 2 VIEWS ROUTINE CLINICAL HISTORY: Left lower leg infection. Assess for osteomyelitis. COMPARISON STUDY: Left tibia/fibula 12/13/2016. FINDINGS: Patient is status post a below the knee amputation. No cortical destruction to suggest osteomyelitis at the amputated fibula or tibia. There is heterotopic ossification surrounding the distal fibula and tibia. Mild soft tissue swelling at the stump. No fractures. Vascular calcifications and the superficial femoral arterial stent are noted. IMPRESSION: Prior below the knee amputation. No radiographic evidence for osteomyelitis. Electronically signed by: Manan Colmenares M.D. 08/15/2017 4:50 PM Dictated Date/Time: 08/15/2017 4:47 PM
[2017-08-15] MEDS ORDERED: SODIUM CHLORIDE 0.9% 500ML 500 ML IV STA (17:01)
[2017-08-15] MEDS ORDERED: VANCOMYCIN INJ 1,000 MG in SODIUM CHLORIDE 0.9% 250ML 250 ML IV STA (17:11)
[2017-08-15] MEDS ORDERED: PIPERACILLIN/TAZOBACTAM 4.5 GM/100ML D5W IV STA (17:15)
[2017-08-15] MEDS ORDERED: SOTALOL HCL 80 MG TAB PO SCH (18:12)
[2017-08-15] MEDS ORDERED: OXYCODONE HCL IR 5 MG TAB (IMMEDIATE RELEASE) PO PRN ×2 (18:15→19:45)
[2017-08-15] MEDS ORDERED: ENOXAPARIN 60 MG/0.6 ML SYR SQ SCH (18:45)
[2017-08-15 18:52] VITALS: BP 144/64; PULSE 60; O2SAT 98; Ht 157.5 cm; Wt 64.5 kg
[2017-08-15] MEDS ORDERED: SODIUM CHLORIDE 0.9% 1000ML 1,000 ML IV ONE (18:57)
[2017-08-15] MEDS ORDERED: WARFARIN SOD 5 MG TAB PO SCH (19:00)
--- NOTE | 2017-08-15 20:11 | EMERGENCY ROOM VISIT NOTE ---
ED Visit Note First contact with patient: 14:19 I have personally evaluated this patient examined her and reviewed the pertinent labs and data. I have discussed the case with Ana Walls, the physician blood donor unit assistant and agree with the plan. Please refer to the PA note. This patient has quite a complex medical history with vascular disease. She has an amputation of her left leg and stump. She says is hurting the weighted does when she gets septic. We did establish an IV. She has no white count. She has an elevated lactic acid. X-rays do not show any definite distractive change. She has no acute electrolyte or metabolic abnormalities. While she was here she remained hemodynamically stable, however her heart rate started going very fast and looks like she's in a flutter with variable block. This may be compensatory if she doesn't underlying infection we've covered her with antibiotics and also given IV hydration. With the IV hydration heart rate has come down significantly was in the 160s now it is more down in the trending about 120. I did not give her any beta ranjit initially as a concern this would to be compensatory and she seemed to be tolerating this well so far. She tells me she does tend to go in and out of atrial fibrillation. She appears in no distress on my exam and the stump does not red or warm, it is mildly tender. I do think she needs to be admitted for monitoring and further treatment and evaluation.
--- NOTE | 2017-08-15 20:13 | History and Physical ---
History & Physical Date & Time of Service: Aug 15, 2017 at 19:53 Chief Complaint: Atrial Fibrillatoin With Rvr,Infection Of L Primary Care Physician: Fabio Tai M.D. History of Present Illness Source: patient This is a 57 year old F with history of lower left extremity below knee amputation with subsequent medical complications of acute liver failure for which she presented to [facility] on 05/21/17 for which she then required emergency airlift to [facility] in [place] and it has been suspected that that cause of the acute liver failure was from Amoxicillin/Clavulanic for which patient was receiving to treat infections of left lower extremity. Patient presents to the ED because of pain of her left lower extremity at the stump below the knee. There is no obvious drainage or fluctuance however there are areas of tenderness down the knee and of the round area of the stump. Patient received X ray in the ED to rule out evidence of osteomyelitis because of the leg pain. In the process of doing the X ray, patient's heart rate went into rapid ventricular response with her history of chronic atrial fibrillation. Patient was then admitted to hospitalist medicine as ED physician was concerned that patient's rapid heart rate may have been a sign of sepsis from an underlying infection of the left stump because of the pain symptoms despite negative X ray imaging for osteomyelitis, and the presence of lactic acid of 3.7. Patient was given Vancomycin and Zosyn in the ED by ED provider When examined by hospitalist medicine physician. Patient denied feeling palpitations or chest pain or shortness of breath while with afib RVR. Breathing comfortably on room air. Patient also reports that because of her leg pain, she stopped taking all of her medications including sotalol for her heart. Before Sotalol dose was given, patient's tachycardia resolved and heart rate under 100 beats per minute when she was admitted to telemetry floor. In regards to the atrial fibrillation, patient's INR of 1.3 INR despite her taking 7.5 mg every Wednesday and Wednesday and 5 mg daily on other days. Lovenox 1 mg/kg BID ordered In addition, patient's inflammatory markers with ESR 12 and CRP less than 0.29 are not suggestive of osteomyelitis. Procalcitonin levels pending Past Medical/Surgical History Medical Problems: (1) Depression Status: Chronic (2) Dyslipidemia Status: Chronic (3) HTN (hypertension) Status: Chronic (4) Paroxysmal atrial fibrillation Status: Chronic (5) PVD (peripheral vascular disease) Status: Chronic Surgical Problems: (1) H/O vascular surgery Permanent Comment: bilateral femoral endarterectomy with iliac stent 10/02/2016 Dr. Dharmesh Omalley, [facility] Status: Resolved (2) History of appendectomy Status: Resolved (3) Status post ORIF of fracture of ankle Permanent Comment: 12/18/16- ORIF closed displaced trimalleolar left ankle fracture; Dr. Fischer Status: Chronic Family History Hypertension FATHER MOTHER Social History Smoking Status: Current Every Day Smoker Drug Use: none Marital Status: Housing status: lives with significant other Occupational Status: disabled Immunizations History of Influenza Vaccine: Unknown History of Tetanus Vaccine?: Yes Tetanus Immunization Date: Jun 29, 2006 History of Pneumococcal: Unknown History of Hepatitis B Vaccine: Unknown Multi-Drug Resistant Organisms History of MDRO: No Allergies Coded Allergies: Amoxicillin (Verified Allergy, Severe, LIVER FAILURE, 08/15/17) Clavulanic Acid (Verified Allergy, Severe, LIVER FAILURE, 08/15/17) Adhesives (Verified Allergy, Mild, 08/15/17) Acetaminophen (Verified Allergy, Unknown, LIVER DAMAGE-DUE TO FAILURE, ) Guanfacine (Verified Allergy, Unknown, 08/15/17) Nifedipine (Verified Allergy, Unknown, 08/15/17) Home Medications Scheduled Amlodipine (Norvasc), 10 MG PO DAILY Aspirin (Aspirin Ec), 81 MG PO DAILY Atorvastatin (Lipitor), 80 MG PO HS Bupropion Hcl (Wellbutrin Xl), 150 MG PO DAILY Clopidogrel (Plavix), 75 MG PO DAILY Fluoxetine (Prozac), 20 MG PO DAILY Pantoprazole (Protonix), 40 MG PO DAILY Ranitidine (Zantac), 300 MG PO HS Sotalol Hcl (Sotalol Hcl), 80 MG PO BID Warfarin Sod (Jantoven), 5 MG PO DAILY Scheduled PRN Ondansetron Hcl (Zofran), 8 MG PO for Nausea Oxycodone HCl (Oxycodone HCl), 5-10 MG PO Q4 PRN for Pain Zolpidem Tartrate (Ambien), 5 MG PO HS PRN for Sleep Review of Systems Constitutional: No fever Eyes: No worsening of vision, No eye pain ENT: No hearing loss, No nasal symptoms, No sore throat, No trouble swallowing Respiratory: No cough, No sputum, No wheezing, No shortness of breath Cardiovascular: No chest pain, No edema, No palpitations Abdomen: No pain, No nausea, No vomiting, No diarrhea, No constipation Musculoskeletal: + joint pain (left leg below knee stump pain) Genitourinary - Female: No dysuria Neurologic: No paralysis, No numbness/tingling Psychiatric: No substance abuse Endocrine: No fatigue Hematologic / Lymphatic: No abnormal bleeding/bruising Integumentary: No rash, No itch Physical Exam Vital Signs Date Time Temp Pulse Resp B/P (MAP) Pulse Ox O2 Delivery O2 Flow Rate FiO2 08/15/17 18:52 60 16 144/64 98 Room Air 08/15/17 18:01 133 20 119/86 8 Room Air 08/15/17 17:05 114 20 141/94 97 Room Air 08/15/17 16:57 127 18 111/87 99 Room Air 08/15/17 16:46 152 08/15/17 16:18 92 18 128/80 100 Room Air 08/15/17 15:17 86 08/15/17 15:13 84 20 149/92 97 Room Air 08/15/17 13:40 36.8 99 20 150/100 97 Room Air General Appearance: no apparent distress Head: normocephalic, atraumatic Eyes: normal inspection, EOMI, sclerae normal ENT: normal ENT inspection, hearing grossly normal, pharynx normal Neck: supple, no JVD, trachea midline Respiratory/Chest: chest non-tender, lungs clear, normal breath sounds, no respiratory distress, no accessory muscle use Cardiovascular: no edema, normal peripheral pulses, + tachycardia (Afib with RVR in the ED with tachycardia resolved in the medical wards), + irregularly irregular Abdomen/GI: normal bowel sounds, non tender, soft, no pulsatile mass Back: normal inspection, no CVA tenderness, no muscle spasm, normal range of motion Extremities/Musculoskelatal: no calf tenderness, normal range of motion, + pertinent finding (no obvious drainage or fluctuance however there are areas of tenderness down the left knee and of the round area of the left stump) Neurologic/Psych: no motor/sensory deficits, alert, normal mood/affect, oriented x 3 Skin: normal color, warm/dry, no rash Diagnostics Laboratory Results Results Past 24 Hours Test 08/15/17 14:55 08/15/17 15:06 08/15/17 18:17 Range/Units White Blood Count 7.42 4.8-10.8 K/uL Red Blood Count 4.65 4.2-5.4 M/uL Hemoglobin 14.7 12.0-16.0 g/dL Hematocrit 41.4 37-47 % Mean Corpuscular Volume 89.0 80-100 fL Mean Corpuscular Hemoglobin 31.6 25-34 pg Mean Corpuscular Hemoglobin Concent 35.5 32-36 g/dl Platelet Count 259 130-400 K/uL Mean Platelet Volume 10.9 7.4-10.4 fL Neutrophils (%) (Auto) 56.9 % Lymphocytes (%) (Auto) 34.8 % Monocytes (%) (Auto) 5.9 % Eosinophils (%) (Auto) 1.5 % Basophils (%) (Auto) 0.8 % Neutrophils # (Auto) 4.22 1.4-6.5 K/uL Lymphocytes # (Auto) 2.58 1.2-3.4 K/uL Monocytes # (Auto) 0.44 0.11-0.59 K/uL Eosinophils # (Auto) 0.11 0-0.5 K/uL Basophils # (Auto) 0.06 0-0.2 K/uL RDW Standard Deviation 49.0 36.4-46.3 fL RDW Coefficient of Variation 15.2 11.5-14.5 % Immature Granulocyte % (Auto) 0.1 % Immature Granulocyte # (Auto) 0.01 0.00-0.02 K/uL Erythrocyte Sedimentation Rate 12 0-21 mm/hr Prothrombin Time 13.9 9.0-12.0 SECONDS Prothromb Time International Ratio 1.3 0.9-1.1 Sodium Level 136 136-145 mmol/L Potassium Level 4.1 3.5-5.1 mmol/L Chloride Level 99 98-107 mmol/L Carbon Dioxide Level 24 21-32 mmol/L Anion Gap 12.0 3-11 mmol/L Blood Urea Nitrogen 8 7-18 mg/dl Creatinine 0.60 0.60-1.20 mg/dl Est Creatinine Clear Calc Drug Dose 81.8 ml/min Estimated GFR () 117.3 Estimated GFR (Non- 101.2 BUN/Creatinine Ratio 13.1 10-20 Random Glucose 71 70-99 mg/dl Calcium Level 9.0 8.5-10.1 mg/dl Total Bilirubin 0.3 0.2-1 mg/dl Aspartate Amino Transf (AST/SGOT) 25 15-37 U/L Alanine Aminotransferase (ALT/SGPT) 16 12-78 U/L Alkaline Phosphatase 105 45-117 U/L C-Reactive Protein < 0.29 0-0.29 mg/dl Total Protein 7.9 6.4-8.2 gm/dl Albumin 3.5 3.4-5.0 gm/dl Globulin 4.4 2.5-4.0 gm/dl Albumin/Globulin Ratio 0.8 0.9-2 Procalcitonin < 0.05 0-0.5 ng/ml Lactic Acid Level 3.7 0.4-2.0 mmol/L Microbiology Results 08/15/17 Blood Culture, Received Pending 08/15/17 Blood Culture, Received Pending Diagnostic Radiology X ray FINDINGS: Patient is status post a below the knee amputation. No cortical destruction to suggest osteomyelitis at the amputated fibula or tibia. There is heterotopic ossification surrounding the distal fibula and tibia. Mild soft tissue swelling at the stump. No fractures. Vascular calcifications and the superficial femoral arterial stent are noted. IMPRESSION: Prior below the knee amputation. No radiographic evidence for osteomyelitis. Impression Assessment and Plan This is a 57 year old F with history of lower left extremity below knee amputation with subsequent medical complications of acute liver failure for which she presented to [facility] on 05/21/17 for which she then required emergency airlift to [facility] in [place] and it has been suspected that that cause of the acute liver failure was from Amoxicillin/Clavulanic for which patient was receiving to treat infections of left lower extremity. Patient presents to the ED because of pain of her left lower extremity at the stump below the knee. There is no obvious drainage or fluctuance however there are areas of tenderness down the knee and of the round area of the stump. Patient received X ray in the ED to rule out evidence of osteomyelitis because of the leg pain. In the process of doing the X ray, patient's heart rate went into rapid ventricular response with her history of chronic atrial fibrillation. Patient was then admitted to hospitalist medicine as ED physician was concerned that patient's rapid heart rate may have been a sign of sepsis from an underlying infection of the left stump because of the pain symptoms despite negative X ray imaging for osteomyelitis, and the presence of lactic acid of 3.7. Patient was given Vancomycin and Zosyn in the ED by ED provider When examined by hospitalist medicine physician. Patient denied feeling palpitations or chest pain or shortness of breath while with afib RVR. Breathing comfortably on room air. Patient also reports that because of her leg pain, she stopped taking all of her medications including sotalol for her heart. Before Sotalol dose was given, patient's tachycardia resolved and heart rate under 100 beats per minute when she was admitted to telemetry floor. In regards to the atrial fibrillation, patient's INR of 1.3 INR despite her taking 7.5 mg every Wednesday and Wednesday and 5 mg daily on other days. Lovenox 1 mg/kg BID ordered In addition, patient's inflammatory markers with ESR 12 and CRP less than 0.29 are not suggestive of osteomyelitis. Procalcitonin levels pending Plan: Given that there is no inflammatory markers of infection, WBC within normal limits, no fever, and X ray imaging without findings of osteomyelitis, I would not recommend continuing IV antibiotics which was started in the Emergency room Besides potential side effects from IV antibiotics including damage to renal function from vancomycin, risk of IV antibiotics even more pronounced given history of acute liver failure possibly due to Amoxicillin/Clavulanic Given minimal lab and imaging findings for osteomyelitis, I have informed patient that there may not be a need for further imaging for which IV contrast can also cause impairments to kidney function Repeating lactic acid levels and provide more IV fluids if lactic acid remains elevated Atrial fibrillation with RVR resolving, and RVR likely due to pain from going through the process of obtaining X ray imaging, Continue home medication of sotalol, INR 1.2 is subtheaptuci and will give Lovenox 1mg/kg BID and continue home dose warfarin 7.5 mg every Wednesday and Wednesday and 5 mg daily on other days. Lovenox 1 mg/kg BID ordered Continue home dose amlodipine, aspirin, and atorvastatin for cardiovascular history of hypertension and peripheral vascular disease Will treat patient's left leg pain with pain medications Give Senna to prevent narcotic induced ileus Level of Care Telemetry Advanced Directives Existing Living Will: No Resuscitation Status FULL RESUSCITATION VTE Prophylaxis VTE Risk Assessment Done? Y/N: Yes Risk Level: Moderate
[2017-08-15] MEDS: SENNA 8.6 MG TAB PO SCH (20:19)
[2017-08-15] MEDS: ATORVASTATIN 40 MG TAB PO SCH (20:59)
[2017-08-15] MEDS: RANITIDINE HCL 150 MG TAB PO SCH (20:59)
[2017-08-15] MEDS: SODIUM CHLORIDE 0.9% 1000ML 1,000 ML IV SCH (21:22)
[2017-08-15 23:03] VITALS: BP 112/69; PULSE 71; TEMP 37.6; O2SAT 97
[2017-08-16] VITALS (10 sets, daily range): BP systolic 105–154; BP diastolic 57–91; PULSE 57–73; TEMP 36.5–36.7; O2SAT 93–97
[2017-08-16] MEDS: OXYCODONE HCL IR 5 MG TAB (IMMEDIATE RELEASE) PO PRN ×6 (00:07→20:15)
[2017-08-16 00:17] LABS: URINE APPEARANCE CLEAR (CLEAR); URINE BILIRUBIN NEG (NEG); URINE COLOR YELLOW; URINE NITRITE NEG (NEG); URINE PH 6.5 (4.5-7.5); UROBILINOGEN NEG (NEG)
[2017-08-16 00:24] LABS: MANUAL MICROSCOPIC REQUIRED? NO; REVIEW REQ? NO
[2017-08-16] MEDS ORDERED: GABAPENTIN 300 MG CAP PO STA (00:31)
[2017-08-16] MEDS: ZOLPIDEM TARTRATE 5 MG TAB PO PRN ×2 (00:51→21:31)
[2017-08-16] MEDS ORDERED: ENOXAPARIN 60 MG/0.6 ML SYR SQ SCH (06:00)
[2017-08-16 06:19] LABS: BASO % 0.9 %; BASO ABS # 0.05 K/uL (0-0.2); COMPLETE YES; EOS % 3.5 %; HEMATOCRIT 34.6 % (37-47); IG% 0.4 %; LYMPH % 20.7 %; LYMPH ABS # 1.17 K/uL (1.2-3.4); MEAN CELL VOLUME 91.5 fL (80-100); MEAN CORPUSCULAR HEMOGLOBIN 30.4 pg (25-34); MEAN CORPUSCULAR HGB CONC 33.2 g/dl (32-36); MEAN PLATELET VOLUME 10.8 fL (7.4-10.4); NEUT % 63.5 %; PLATELET COUNT 179 K/uL (130-400); RED BLOOD COUNT 3.78 M/uL (4.2-5.4); WHITE BLOOD COUNT 5.64 K/uL (4.8-10.8)
[2017-08-16 06:21] LABS: INR 1.5 (0.9-1.1); PROTHROMBIN TIME (PATIENT) 16.5 SECONDS (9.0-12.0)
[2017-08-16 06:42] LABS: BUN/CREATININE RATIO 11.2 (10-20); CALCIUM 8.1 mg/dl (8.5-10.1); CREATININE 0.45 mg/dl (0.60-1.20); POTASSIUM 3.6 mmol/L (3.5-5.1)
[2017-08-16 06:47] LABS: ALB/GLOB RATIO 0.8 (0.9-2)
[2017-08-16] MEDS: SENNA 8.6 MG TAB PO SCH ×2 (08:08→20:11)
[2017-08-16] MEDS: ASPIRIN 81 MG ECTAB PO SCH (08:12)
[2017-08-16] MEDS: PANTOprazole SOD 40 MG TAB PO SCH (08:12)
[2017-08-16] MEDS: CLOPIDOGREL BISULFATE 75 MG TAB PO SCH (08:12)
[2017-08-16] MEDS: GABAPENTIN 300 MG CAP PO SCH ×3 (08:13→20:14)
[2017-08-16] MEDS: BuPROPion XL 150 MG TABCR PO SCH (08:13)
[2017-08-16] MEDS: AMLODIPINE BESYLATE 5 MG TAB PO SCH (08:13)
[2017-08-16] MEDS: FLUOXETINE HCL 20 MG CAP PO SCH (08:13)
[2017-08-16] MEDS: SOTALOL HCL 80 MG TAB PO SCH ×2 (08:55→20:16)
[2017-08-16] MEDS: KETOROLAC TROMETHAMINE 30 MG/ML VIAL IV PRN ×2 (09:03→18:13)
--- NOTE | 2017-08-16 09:49 | DIAGNOSTIC IMAGING REPORT ---
SINGLE VIEW CHEST CLINICAL HISTORY: Cardiac arrhythmia. FINDINGS: An AP, portable, upright chest radiograph is compared to study dated 05/21/2017 and correlated with chest CT dated 10/08/2016. The examination is degraded by portable technique and patient rotation. The cardiomediastinal silhouette is unremarkable. There is atherosclerotic calcification of the thoracic aorta. Calcified granulomas are again seen in the right upper lobe. Chronic interstitial thickening is unchanged. No airspace consolidation, large pleural effusion, or pneumothorax is seen. The skeletal structures are osteopenic. The bony thorax is grossly intact. IMPRESSION: No acute cardiopulmonary abnormality. Electronically signed by: Angus Marte M.D. 08/16/2017 9:48 AM Dictated Date/Time: 08/16/2017 9:47 AM
[2017-08-16] MEDS: SODIUM CHLORIDE 0.9% 1000ML 1,000 ML IV SCH (10:06)
--- NOTE | 2017-08-16 11:50 | Progress Note ---
Medicine Progress Note Date & Time of Visit: Aug 16, 2017 at 11:37. Subjective 57 y o F with h/o L BKA who presents with acute stump pain x 2 days. -pain has improved with gabapentin, oxycodone and toradol IV -denies fevers or chills -tolerating PO -doesn't have prosthesis with her as it is being refit Objective Last 8 Hrs Date Time Temp Pulse Resp B/P (MAP) Pulse Ox O2 Delivery O2 Flow Rate FiO2 08/16/17 08:20 36.7 73 16 130/80 (97) 96 Room Air 08/16/17 08:00 96 Room Air 08/16/17 04:00 Room Air 08/16/17 03:38 36.5 69 25 114/83 (93) 95 Room Air Physical Exam: GEN: WNWD, in no acute distress, alert and appropriate HEENT: NC/AT, normal sclerae, MMM CARDIO: reg rate, sinus rhythm, S1/2 heard without m/g/r LUNGS: CTA bilaterally, no crackles, rales or wheezes, good diaphragmatic excursion ABD: soft, non-tender, non-distended, no rebound or guarding, +BS EXTREMITY: Extremities are warm and well perfused. No LE swelling or edema. She is s/p L BKA with TTP of her stump all around. Small well-healed wound on edge of stump present without drainage or surrounding erythema. NEURO: CN 2-12 grossly intact, no gross focal deficits. MUSC: moves all extremities equally. SKIN: warm and dry Laboratory Results: 08/16/17 05:53 Red Blood Count 3.78, Mean Corpuscular Volume 91.5, Mean Corpuscular Hemoglobin 30.4, Mean Corpuscular Hemoglobin Concent 33.2, Mean Platelet Volume 10.8, Neutrophils (%) (Auto) 63.5, Lymphocytes (%) (Auto) 20.7, Monocytes (%) (Auto) 11.0, Eosinophils (%) (Auto) 3.5, Basophils (%) (Auto) 0.9, Neutrophils # (Auto ) 3.58, Lymphocytes # (Auto) 1.17, Monocytes # (Auto) 0.62, Eosinophils # (Auto ) 0.20, Basophils # (Auto) 0.05 08/16/17 05:53 Test 08/15/17 14:55 08/16/17 00:00 08/16/17 05:53 08/16/17 05:58 Erythrocyte Sedimentation Rate 12 mm/hr (0-21) C-Reactive Protein < 0.29 mg/dl (0-0.29) Procalcitonin < 0.05 ng/ml (0-0.5) Urine Color YELLOW Urine Appearance CLEAR (CLEAR) Urine pH 6.5 (4.5-7.5) Urine Specific [place] 1.010 (1.000-1.030) Urine Protein NEG (NEG) Urine Glucose (UA) NEG (NEG) Urine Ketones NEG (NEG) Urine Occult Blood NEG (NEG) Urine Nitrite NEG (NEG) Urine Bilirubin NEG (NEG) Urine Urobilinogen NEG (NEG) Urine Leukocyte Esterase NEG (NEG) White Blood Count 5.64 K/uL (4.8-10.8) Red Blood Count 3.78 M/uL (4.2-5.4) Hemoglobin 11.5 g/dL (12.0-16.0) Hematocrit 34.6 % (37-47) Mean Corpuscular Volume 91.5 fL (80-100) Mean Corpuscular Hemoglobin 30.4 pg (25-34) Mean Corpuscular Hemoglobin Concent 33.2 g/dl (32-36) Platelet Count 179 K/uL (130-400) Mean Platelet Volume 10.8 fL (7.4-10.4) Neutrophils (%) (Auto) 63.5 % Lymphocytes (%) (Auto) 20.7 % Monocytes (%) (Auto) 11.0 % Eosinophils (%) (Auto) 3.5 % Basophils (%) (Auto) 0.9 % Neutrophils # (Auto) 3.58 K/uL (1.4-6.5) Lymphocytes # (Auto) 1.17 K/uL (1.2-3.4) Monocytes # (Auto) 0.62 K/uL (0.11-0.59) Eosinophils # (Auto) 0.20 K/uL (0-0.5) Basophils # (Auto) 0.05 K/uL (0-0.2) RDW Standard Deviation 51.0 fL (36.4-46.3) RDW Coefficient of Variation 15.2 % (11.5-14.5) Immature Granulocyte % (Auto) 0.4 % Immature Granulocyte # (Auto) 0.02 K/uL (0.00-0.02) Prothrombin Time 16.5 SECONDS (9.0-12.0) Prothromb Time International Ratio 1.5 (0.9-1.1) Anion Gap 8.0 mmol/L (3-11) Est Creatinine Clear Calc Drug Dose 109.1 ml/min Estimated GFR () 128.9 Estimated GFR (Non- 111.2 BUN/Creatinine Ratio 11.2 (10-20) Calcium Level 8.1 mg/dl (8.5-10.1) Total Bilirubin 0.6 mg/dl (0.2-1) Aspartate Amino Transf (AST/SGOT) 21 U/L (15-37) Alanine Aminotransferase (ALT/SGPT) 14 U/L (12-78) Alkaline Phosphatase 84 U/L (45-117) Total Protein 6.2 gm/dl (6.4-8.2) Albumin 2.8 gm/dl (3.4-5.0) Globulin 3.4 gm/dl (2.5-4.0) Albumin/Globulin Ratio 0.8 (0.9-2) Lactic Acid Level 0.5 mmol/L (0.4-2.0) Date/Time Source Procedure Growth Status 08/15/17 14:55 Blood Blood Culture Pending Received Last 24 Hours Test 08/15/17 14:55 08/15/17 15:06 08/15/17 19:57 08/16/17 00:00 White Blood Count 7.42 K/uL Red Blood Count 4.65 M/uL Hemoglobin 14.7 g/dL Hematocrit 41.4 % Mean Corpuscular Volume 89.0 fL Mean Corpuscular Hemoglobin 31.6 pg Mean Corpuscular Hemoglobin Concent 35.5 g/dl Platelet Count 259 K/uL Mean Platelet Volume 10.9 fL Neutrophils (%) (Auto) 56.9 % Lymphocytes (%) (Auto) 34.8 % Monocytes (%) (Auto) 5.9 % Eosinophils (%) (Auto) 1.5 % Basophils (%) (Auto) 0.8 % Neutrophils # (Auto) 4.22 K/uL Lymphocytes # (Auto) 2.58 K/uL Monocytes # (Auto) 0.44 K/uL Eosinophils # (Auto) 0.11 K/uL Basophils # (Auto) 0.06 K/uL RDW Standard Deviation 49.0 fL RDW Coefficient of Variation 15.2 % Immature Granulocyte % (Auto) 0.1 % Immature Granulocyte # (Auto) 0.01 K/uL Erythrocyte Sedimentation Rate 12 mm/hr Prothrombin Time 13.9 SECONDS Prothromb Time International Ratio 1.3 Sodium Level 136 mmol/L Potassium Level 4.1 mmol/L Chloride Level 99 mmol/L Carbon Dioxide Level 24 mmol/L Anion Gap 12.0 mmol/L Blood Urea Nitrogen 8 mg/dl Creatinine 0.60 mg/dl Est Creatinine Clear Calc Drug Dose 81.8 ml/min Estimated GFR () 117.3 Estimated GFR (Non- 101.2 BUN/Creatinine Ratio 13.1 Random Glucose 71 mg/dl Calcium Level 9.0 mg/dl Total Bilirubin 0.3 mg/dl Aspartate Amino Transf (AST/SGOT) 25 U/L Alanine Aminotransferase (ALT/SGPT) 16 U/L Alkaline Phosphatase 105 U/L C-Reactive Protein < 0.29 mg/dl Total Protein 7.9 gm/dl Albumin 3.5 gm/dl Globulin 4.4 gm/dl Albumin/Globulin Ratio 0.8 Procalcitonin < 0.05 ng/ml Lactic Acid Level 3.7 mmol/L 3.5 mmol/L Urine Color YELLOW Urine Appearance CLEAR Urine pH 6.5 Urine Specific [place] 1.010 Urine Protein NEG Urine Glucose (UA) NEG Urine Ketones NEG Urine Occult Blood NEG Urine Nitrite NEG Urine Bilirubin NEG Urine Urobilinogen NEG Urine Leukocyte Esterase NEG Test 08/16/17 05:53 08/16/17 05:58 White Blood Count 5.64 K/uL Red Blood Count 3.78 M/uL Hemoglobin 11.5 g/dL Hematocrit 34.6 % Mean Corpuscular Volume 91.5 fL Mean Corpuscular Hemoglobin 30.4 pg Mean Corpuscular Hemoglobin Concent 33.2 g/dl Platelet Count 179 K/uL Mean Platelet Volume 10.8 fL Neutrophils (%) (Auto) 63.5 % Lymphocytes (%) (Auto) 20.7 % Monocytes (%) (Auto) 11.0 % Eosinophils (%) (Auto) 3.5 % Basophils (%) (Auto) 0.9 % Neutrophils # (Auto) 3.58 K/uL Lymphocytes # (Auto) 1.17 K/uL Monocytes # (Auto) 0.62 K/uL Eosinophils # (Auto) 0.20 K/uL Basophils # (Auto) 0.05 K/uL RDW Standard Deviation 51.0 fL RDW Coefficient of Variation 15.2 % Immature Granulocyte % (Auto) 0.4 % Immature Granulocyte # (Auto) 0.02 K/uL Prothrombin Time 16.5 SECONDS Prothromb Time International Ratio 1.5 Sodium Level 135 mmol/L Potassium Level 3.6 mmol/L Chloride Level 102 mmol/L Carbon Dioxide Level 25 mmol/L Anion Gap 8.0 mmol/L Blood Urea Nitrogen 5 mg/dl Creatinine 0.45 mg/dl Est Creatinine Clear Calc Drug Dose 109.1 ml/min Estimated GFR () 128.9 Estimated GFR (Non- 111.2 BUN/Creatinine Ratio 11.2 Random Glucose 68 mg/dl Calcium Level 8.1 mg/dl Total Bilirubin 0.6 mg/dl Aspartate Amino Transf (AST/SGOT) 21 U/L Alanine Aminotransferase (ALT/SGPT) 14 U/L Alkaline Phosphatase 84 U/L Total Protein 6.2 gm/dl Albumin 2.8 gm/dl Globulin 3.4 gm/dl Albumin/Globulin Ratio 0.8 Lactic Acid Level 0.5 mmol/L Date/Time Source Procedure Growth Status 08/15/17 14:55 Blood Blood Culture Pending Received 08/15/17 14:55 Blood Blood Culture Pending Received Assessment & Plan 57 y o F with h/o L BKA who presents with acute stump pain x 2 days. 1. L stump pain-pt denies fevers, chills but states that she has had multiple infections in this area and this was always how they presented. She has a normal WBC count and normal ESR/CRP. She has no other systemic symptoms. Xray of the area was negative for osteo. Will consult ID who has seen the patient in the past to see if MRI is warranted at this point. For now, I think we would opt for watchful waiting overnight, but would like there opinion to be sure. Of note, she did note that her prosthesis is not fitting right and there is a small well-healed wound on the edge of her leg. She states this was open on (5 days ago) and then her pain came on suddenly on Sat. With h/o liver failure 2/2 Augmentin and no evidence of infection at this time, agree with holding off on antibiotics. Pain control with Toradol, Li and Gabapentin 900 TID 2. PAF-went into RVR yesterday while undergoing xray and being repositioned and this was in the setting of her missing one dose of her sotalol she takes BID. She converted to sinus and has remained free of symptoms. Cont warfarin- no need to bridge her so will stop full dose Lovenox at this time. Cont Sotalol and ASA 81mg PO daily 3. HTN-controlled, cont Norvasc 4. PAD- stent in SFA, cont ASA 81, Plavix 5. Depression/Anxiety-cont Welbutrin and Fluoxetine 6. Anemia 2/2 dilution from IVF overnight. DVT proh-Verito 40mg Full Code Dispo-likely to home after rule out infection/pain controlled. Poss tomorrow. [facility] When examined by hospitalist medicine physician. Patient denied feeling palpitations or chest pain or shortness of breath while with afib RVR. Breathing comfortably on room air. Patient also reports that because of her leg pain, she stopped taking all of her medications including sotalol for her heart. Before Sotalol dose was given, patient's tachycardia resolved and heart rate under 100 beats per minute when she was admitted to telemetry floor. In regards to the atrial fibrillation, patient's INR of 1.3 INR despite her taking 7.5 mg every Wednesday and Wednesday and 5 mg daily on other days. Lovenox 1 mg/kg BID ordered In addition, patient's inflammatory markers with ESR 12 and CRP less than 0.29 are not suggestive of osteomyelitis. Procalcitonin levels pending Plan: Given that there is no inflammatory markers of infection, WBC within normal limits, no fever, and X ray imaging without findings of osteomyelitis, I would not recommend continuing IV antibiotics which was started in the Emergency room Besides potential side effects from IV antibiotics including damage to renal function from vancomycin, risk of IV antibiotics even more pronounced given history of acute liver failure possibly due to Amoxicillin/Clavulanic Given minimal lab and imaging findings for osteomyelitis, I have informed patient that there may not be a need for further imaging for which IV contrast can also cause impairments to kidney function Repeating lactic acid levels and provide more IV fluids if lactic acid remains elevated Atrial fibrillation with RVR resolving, and RVR likely due to pain from going through the process of obtaining X ray imaging, Continue home medication of sotalol, INR 1.2 is subtheaptuci and will give Lovenox 1mg/kg BID and continue home dose warfarin 7.5 mg every Wednesday and Wednesday and 5 mg daily on other days. Lovenox 1 mg/kg BID ordered Continue home dose amlodipine, aspirin, and atorvastatin for cardiovascular history of hypertension and peripheral vascular disease Will treat patient's left leg pain with pain medications Give Senna to prevent narcotic induced ileus Current Inpatient Medications: Current Inpatient Medications Medications (Trade) Dose Ordered Sig/Rosa Route Start Time Stop Time Status Last Admin Dose Admin Warfarin Sodium (Coumadin Tab) 7.5 mg WeSa@1600 PO 08/18/17 16:00 09/17/17 15:59 Warfarin Sodium (Coumadin Tab) 5 mg SuMoTuThFr@1600 PO 08/15/17 19:00 09/14/17 18:59 08/15/17 20:58 5 MG Sotalol HCl (Betapace Tab) 80 mg BID PO 08/16/17 09:00 09/15/17 08:59 08/16/17 08:55 80 MG Amlodipine Besylate (Norvasc Tab) 10 mg DAILY PO 08/16/17 09:00 09/15/17 08:59 08/16/17 08:13 10 MG Aspirin (Ecotrin Tab) 81 mg DAILY PO 08/16/17 09:00 09/15/17 08:59 08/16/17 08:12 81 MG Atorvastatin Calcium (Lipitor Tab) 80 mg HS PO 08/15/17 21:00 09/14/17 20:59 08/15/17 20:59 80 MG Bupropion HCl (Wellbutrin-Xl Tab) 150 mg DAILY PO 08/16/17 09:00 09/15/17 08:59 08/16/17 08:13 150 MG Clopidogrel Bisulfate (plAVix TAB) 75 mg DAILY PO 08/16/17 09:00 09/15/17 08:59 08/16/17 08:12 75 MG Fluoxetine HCl (Prozac Cap) 20 mg DAILY PO 08/16/17 09:00 09/15/17 08:59 08/16/17 08:13 20 MG Ondansetron HCl (Zofran Tab) 8 mg Q8 PRN PO 08/15/17 18:15 09/14/17 18:14 Pantoprazole Sodium (Protonix Tab) 40 mg DAILY PO 08/16/17 09:00 09/15/17 08:59 08/16/17 08:12 40 MG Zolpidem Tartrate (Ambien Tab) 5 mg HS PRN PO 08/15/17 18:15 09/14/17 18:14 08/16/17 00:51 5 MG Ranitidine HCl (zANTac TAB) 300 mg HS PO 08/15/17 21:00 09/14/17 20:59 08/15/17 20:59 300 MG Senna (Senokot Tab) 8.6 mg BID PO 08/15/17 21:00 09/14/17 20:59 Enoxaparin Sodium (Lovenox Inj) 60 mg Q12H SQ 08/16/17 06:00 09/15/17 05:59 08/16/17 06:30 60 MG Sodium Chloride 1,000 ml @ 75 mls/hr [id number] IV 08/15/17 21:00 09/14/17 20:59 08/15/17 21:22 75 MLS/HR Oxycodone HCl (Roxicodone Immediate Rel Tab) 10 mg Q4 PRN PO 08/15/17 23:30 08/29/17 18:14 08/16/17 08:10 10 MG Ketorolac Tromethamine (Toradol Inj) 30 mg Q6H PRN IV 08/15/17 23:30 08/20/17 23:29 08/16/17 09:03 30 MG Gabapentin (Neurontin Cap) 900 mg TID PO 08/16/17 09:00 09/15/17 08:59 08/16/17 08:13 900 MG
[2017-08-16] MEDS: WARFARIN SOD 7.5 MG TAB PO SCH (15:34)
--- NOTE | 2017-08-16 16:02 | Medical Consult ---
Consultation Date of Consultation: Aug 16, 2017. Attending Physician: Flor Dawkins DO Reason for Consultation: Need for MRI scan History of Present Illness 57-year-old female with prior history of chronic left ankle infection, ultimately requiring left BKA, with admission in April for liver failure thought to be from Augmentin therapy, who now presents with several days of progressively worsening pain localized to her lateral left stump, with some bruising of the distal stump, but no significant erythema. She has not been febrile, white count has been normal, and inflammatory markers are low. Rates pain 7/10 in intensity currently. X-ray of the left leg, read by me, shows no obvious infection. Past Medical/Surgical History Medical Problems: (1) Acute liver failure Status: Acute (2) Cellulitis Status: Acute (3) Contusion of ankle, left Status: Acute (4) Lower extremity edema Status: Acute (5) Rapid atrial fibrillation Status: Acute (6) Trimalleolar fracture of ankle, closed Status: Acute Medical Problems: (1) Ankle fracture, bimalleolar, closed (2) Atrial fibrillation with RVR (3) Chest pain (4) Dehiscence of closure of skin (5) Depression (6) Dyslipidemia (7) History of blood clots (8) HTN (hypertension) (9) Infection of left below knee amputation (10) Infection of prosthesis (11) 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 (12) Osteomyelitis of left fibula (13) Paroxysmal atrial fibrillation (14) PVD (peripheral vascular disease) (15) SOB (shortness of breath) (16) Surgical wound infection Surgical Problems: (1) H/O vascular surgery (2) History of appendectomy (3) Status post ORIF of fracture of ankle Family History Hypertension FATHER MOTHER Social History Smoking Status: Current Every Day Smoker Drug Use: none Marital Status: Housing Status: lives with family Occupation Status: disabled Allergies Coded Allergies: Amoxicillin (Verified Allergy, Severe, LIVER FAILURE, 08/15/17) Clavulanic Acid (Verified Allergy, Severe, LIVER FAILURE, 08/15/17) Adhesives (Verified Allergy, Mild, 08/15/17) Acetaminophen (Verified Allergy, Unknown, LIVER DAMAGE-DUE TO FAILURE, ) Guanfacine (Verified Allergy, Unknown, 08/15/17) Nifedipine (Verified Allergy, Unknown, 08/15/17) Current Inpatient Medications Current Inpatient Medications Medications (Trade) Dose Ordered Sig/Rosa Route Start Time Stop Time Status Last Admin Dose Admin Sotalol HCl (Betapace Tab) 80 mg BID PO 08/16/17 09:00 09/15/17 08:59 08/16/17 08:55 80 MG Amlodipine Besylate (Norvasc Tab) 10 mg DAILY PO 08/16/17 09:00 09/15/17 08:59 08/16/17 08:13 10 MG Aspirin (Ecotrin Tab) 81 mg DAILY PO 08/16/17 09:00 09/15/17 08:59 08/16/17 08:12 81 MG Atorvastatin Calcium (Lipitor Tab) 80 mg HS PO 08/15/17 21:00 09/14/17 20:59 08/15/17 20:59 80 MG Bupropion HCl (Wellbutrin-Xl Tab) 150 mg DAILY PO 08/16/17 09:00 09/15/17 08:59 08/16/17 08:13 150 MG Clopidogrel Bisulfate (plAVix TAB) 75 mg DAILY PO 08/16/17 09:00 09/15/17 08:59 08/16/17 08:12 75 MG Fluoxetine HCl (Prozac Cap) 20 mg DAILY PO 08/16/17 09:00 09/15/17 08:59 08/16/17 08:13 20 MG Ondansetron HCl (Zofran Tab) 8 mg Q8 PRN PO 08/15/17 18:15 09/14/17 18:14 Pantoprazole Sodium (Protonix Tab) 40 mg DAILY PO 08/16/17 09:00 09/15/17 08:59 08/16/17 08:12 40 MG Zolpidem Tartrate (Ambien Tab) 5 mg HS PRN PO 08/15/17 18:15 09/14/17 18:14 08/16/17 00:51 5 MG Ranitidine HCl (zANTac TAB) 300 mg HS PO 08/15/17 21:00 09/14/17 20:59 08/15/17 20:59 300 MG Senna (Senokot Tab) 8.6 mg BID PO 08/15/17 21:00 09/14/17 20:59 Oxycodone HCl (Roxicodone Immediate Rel Tab) 10 mg Q4 PRN PO 08/15/17 23:30 08/29/17 18:14 08/16/17 15:32 10 MG Ketorolac Tromethamine (Toradol Inj) 30 mg Q6H PRN IV 08/15/17 23:30 08/20/17 23:29 08/16/17 09:03 30 MG Gabapentin (Neurontin Cap) 900 mg TID PO 08/16/17 09:00 09/15/17 08:59 08/16/17 13:48 900 MG Warfarin Sodium (Coumadin Tab) 7.5 mg DAILY@1600 PO 08/16/17 16:00 09/17/17 15:59 08/16/17 15:34 7.5 MG Enoxaparin Sodium (Lovenox Inj) 40 mg QAM SQ 08/17/17 09:00 09/16/17 08:59 Review of Systems Constitutional: No fever, No chills Eyes: No problem reported ENT: No problem reported Respiratory: No problem reported Cardiovascular: No problem reported Abdomen: No problem reported Musculoskeletal: + problem reported (see HPI) Genitourinary - Female: No problem reported Neurologic: No problem reported Psychiatric: No problem reported Endocrine: No problem reported Hematologic / Lymphatic: No problem reported Integumentary: No problem reported Allergic / Immunologic: No problem reported Physical Exam Date Time Temp Pulse Resp B/P (MAP) Pulse Ox O2 Delivery O2 Flow Rate FiO2 08/16/17 12:36 36.7 64 16 119/72 (88) 97 Room Air 08/16/17 12:00 Room Air 08/16/17 08:20 36.7 73 16 130/80 (97) 96 Room Air 08/16/17 08:00 96 Room Air 08/16/17 04:00 Room Air 08/16/17 03:38 36.5 69 25 114/83 (93) 95 Room Air 08/16/17 00:28 36.6 72 16 154/91 (112) 95 Room Air 08/15/17 23:59 Room Air 08/15/17 20:00 Room Air 08/15/17 18:52 60 16 144/64 98 Room Air 08/15/17 18:01 133 20 119/86 8 Room Air 08/15/17 17:05 114 20 141/94 97 Room Air 08/15/17 16:57 127 18 111/87 99 Room Air 08/15/17 16:46 152 08/15/17 16:18 92 18 128/80 100 Room Air General Appearance: WD/WN, no apparent distress Head: normocephalic, atraumatic Eyes: normal inspection, EOMI, sclerae normal ENT: normal ENT inspection, pharynx normal Neck: supple, no adenopathy, thyroid normal, trachea midline Respiratory/Chest: chest non-tender, lungs clear, normal breath sounds, no respiratory distress Cardiovascular: regular rate, rhythm, no gallop, no murmur Abdomen/GI: normal bowel sounds, non tender, soft, no organomegaly Back: normal inspection, no CVA tenderness Extremities/Musculoskelatal: no calf tenderness, + pertinent finding ( Tenderness left lateral BKA stump site) Neurologic/Psych: alert, oriented x 3 Skin: normal color, no rash, + pertinent finding (Minimal bruising distal stone left BKA ) Lymphatic: no adenopathy Laboratory Results Patient Name: TIARA MCCALL Unit Number: [id number] Dictated: [id number] Transcribed: 08/15/171646 [employer] Printed Date/Time: [~ rep prt dt]/[~ rep prt tm] [~ rep ct labl] - [~ rep ct ivnm] [facility] [place] [address] Dictated: [id number] Transcribed: 08/15/171646 [facility] Printed Date/Time: [~ rep prt dt]/[~ rep prt tm] [~ rep ct labl] - [~ rep ct ivnm] [~ rep ct add3]] L TIBIA/FIBULA 2 VIEWS ROUTINE CLINICAL HISTORY: Left lower leg infection. Assess for osteomyelitis. COMPARISON STUDY: Left tibia/fibula 12/13/2016. FINDINGS: Patient is status post a below the knee amputation. No cortical destruction to suggest osteomyelitis at the amputated fibula or tibia. There is heterotopic ossification surrounding the distal fibula and tibia. Mild soft tissue swelling at the stump. No fractures. Vascular calcifications and the superficial femoral arterial stent are noted. IMPRESSION: Prior below the knee amputation. No radiographic evidence for osteomyelitis. Electronically signed by: Manan Colmenares M.D. 08/15/2017 4:50 PM Dictated Date/Time: 08/15/2017 4:47 PM The status of this report is Signed. Draft = Not yet reviewed or approved by Radiologist. Signed = Reviewed and approved by Radiologist. <AttendingPhy></AttendingPhy> <FamilyPhy>Fabio Tai M.D.</FamilyPhy> < PrimaryPhy>Fabio Tai M.D.</PrimaryPhy> <UnitNumber>[id number]</ UnitNumber> <VisitNumber>[id number]</VisitNumber> <PatientName>TIARA MCCALL</PatientName> <DateOfBirth>1960</DateOfBirth> <Location>[facility]</ Location> <ServiceDate>08/15/17</ServiceDate> <MNE>ESINDI</MNE> <OrderingPhy> Ana Walls PA-C</OrderingPhy> <OrderingPhyMNE>f rep ord dr yadav</ OrderingPhyMNE> <DictatingPhyMNE>f rep dict dr yadav</DictatingPhyMNE> <CCListMNE> f rep ct mne</CCListMNE> <AdmittingPhyMNE>f pt admit dr yadav</AdmittingPhyMNE> < AttendingPhyMNE>f pt attend dr yadav</AttendingPhyMNE> <ConsultingPhyMNE>f pt consult dr yadav</ConsultingPhyMNE> <FamilyPhyMNE>f pt fam dr yadav</FamilyPhyMNE> <OtherPhyMNE>f pt other dr yadav</OtherPhyMNE> < PrimaryPhyMNE>f pt prim care dr yadav</PrimaryPhyMNE> <ReferringPhyMNE>f pt referring dr yadav</ReferringPhyMNE> Last 24 Hours Test 08/15/17 19:57 08/16/17 00:00 08/16/17 05:53 08/16/17 05:58 Lactic Acid Level 3.5 mmol/L 0.5 mmol/L Urine Color YELLOW Urine Appearance CLEAR Urine pH 6.5 Urine Specific [place] 1.010 Urine Protein NEG Urine Glucose (UA) NEG Urine Ketones NEG Urine Occult Blood NEG Urine Nitrite NEG Urine Bilirubin NEG Urine Urobilinogen NEG Urine Leukocyte Esterase NEG White Blood Count 5.64 K/uL Red Blood Count 3.78 M/uL Hemoglobin 11.5 g/dL Hematocrit 34.6 % Mean Corpuscular Volume 91.5 fL Mean Corpuscular Hemoglobin 30.4 pg Mean Corpuscular Hemoglobin Concent 33.2 g/dl Platelet Count 179 K/uL Mean Platelet Volume 10.8 fL Neutrophils (%) (Auto) 63.5 % Lymphocytes (%) (Auto) 20.7 % Monocytes (%) (Auto) 11.0 % Eosinophils (%) (Auto) 3.5 % Basophils (%) (Auto) 0.9 % Neutrophils # (Auto) 3.58 K/uL Lymphocytes # (Auto) 1.17 K/uL Monocytes # (Auto) 0.62 K/uL Eosinophils # (Auto) 0.20 K/uL Basophils # (Auto) 0.05 K/uL RDW Standard Deviation 51.0 fL RDW Coefficient of Variation 15.2 % Immature Granulocyte % (Auto) 0.4 % Immature Granulocyte # (Auto) 0.02 K/uL Prothrombin Time 16.5 SECONDS Prothromb Time International Ratio 1.5 Sodium Level 135 mmol/L Potassium Level 3.6 mmol/L Chloride Level 102 mmol/L Carbon Dioxide Level 25 mmol/L Anion Gap 8.0 mmol/L Blood Urea Nitrogen 5 mg/dl Creatinine 0.45 mg/dl Est Creatinine Clear Calc Drug Dose 109.1 ml/min Estimated GFR () 128.9 Estimated GFR (Non- 111.2 BUN/Creatinine Ratio 11.2 Random Glucose 68 mg/dl Calcium Level 8.1 mg/dl Total Bilirubin 0.6 mg/dl Aspartate Amino Transf (AST/SGOT) 21 U/L Alanine Aminotransferase (ALT/SGPT) 14 U/L Alkaline Phosphatase 84 U/L Total Protein 6.2 gm/dl Albumin 2.8 gm/dl Globulin 3.4 gm/dl Albumin/Globulin Ratio 0.8 Assessment & Plan 57-year-old female status post left BKA now with return of severe pain localized to the lateral stump area without obvious fluctuance or significant erythema. Etiology not clear, but would consider obtaining MRI scan to better define process. Hopefully this is a noninfectious process given previous problems associated with Augmentin therapy. Will follow.
[2017-08-16] MEDS: ATORVASTATIN 40 MG TAB PO SCH (20:14)
[2017-08-16] MEDS: RANITIDINE HCL 150 MG TAB PO SCH (20:14)
[2017-08-16] MEDS ORDERED: GADAVIST IV PRN (22:45)
--- NOTE | 2017-08-16 22:50 | DIAGNOSTIC IMAGING REPORT ---
ADDENDUM Phone conversation with Dr. Miceky belle, patient does not have a white count or clinical symptoms highly suggestive of osteomyelitis. Possibility that the tibial findings are related to stress related reaction must be considered considered. Electronically signed by: Santos Mckenzie M.D. 08/18/2017 1:51 PM Dictated Date/Time: 08/18/2017 1:48 PM ORIGINAL REPORT L LOWER EXT NONJOINT COMBO CLINICAL HISTORY: L stump pain, rule out osteo pain. Infection. TECHNIQUE: Multiaxial images pre and post contrast enhancement COMPARISON STUDY: None FINDINGS: Patient is status post [id number] amputation. There are findings of moderate reactive bone marrow edema of the medial femoral condyle as well as proximal aspect medial tibia. This most likely is stress related. Operative changes consistent with a below-knee amputation are noted. There is evidence for bone marrow replacement involving the distal aspect of the residual tibia measuring 3 x 1.6 cm. This shows an increase in signal diffusely on the inversion recovery and T2-weighted images as well as post contrast enhancement. The surrounding musculature shows evidence for moderate inflammatory-type change. It also shows a component of postcontrast enhancement. The fibular remnant shows unremarkable bone marrow signal characteristics. Expected soft tissue configuration due to the amputation is present. IMPRESSION: 1. Operative changes consistent with a below-knee amputation. 2. Osteomyelitis of the distal aspect of the residual tibia with a greatest overall extent of 3.0 x 1.6 cm. 3. Surrounding inflammatory change of the musculature inferior to the knee. 4. No evidence for involvement of the fibula. 5. No evidence for drainable abscess or collection. The above report was generated using voice recognition software. It may contain grammatical, syntax or spelling errors. Electronically signed by: Santos Mckenzie M.D. 08/16/2017 10:49 PM Dictated Date/Time: 08/16/2017 10:43 PM
[2017-08-16] MEDS ORDERED: VANCOMYCIN CONSULT ACTIVE PRN (23:45)
[2017-08-17] VITALS (7 sets, daily range): BP systolic 103–137; BP diastolic 67–87; PULSE 60–65; TEMP 36.6–36.7; O2SAT 94–97
[2017-08-17] MEDS: LEVOFLOXACIN / D5W 750 MG in PREMIXED IN D5W 150 ML IV SCH (00:03)
[2017-08-17] MEDS: OXYCODONE HCL IR 5 MG TAB (IMMEDIATE RELEASE) PO PRN ×5 (01:32→19:47)
[2017-08-17] MEDS ORDERED: VANCOMYCIN INJ 1,500 MG in SODIUM CHLORIDE 0.9% 500ML 500 ML IV SCH (05:00)
[2017-08-17] MEDS ORDERED: VANCOMYCIN INJ 1,000 MG in SODIUM CHLORIDE 0.9% 250ML 250 ML IV SCH (06:00)
--- NOTE | 2017-08-17 07:52 | Pharmacy Progress Note ---
Pharmacy Abx Initial Consult Date of Service Aug 17, 2017. Pharmacy Dosing Scope Date of Consult: 08/17/17 Consultation requested by: Dr. Dawkins Pharmacy is consulted to initiate Vancomycin IV dosing therapy, order appropriate labs and adjust drug dose/frequency. Subjective The patient is a 57 year old female admitted on Aug 15, 2017 at 17:39 with acute stump pain X 2 days. Objective Height (Feet): 5 Height (Inches): 2.00 Weight (Kilograms): 58.100 Vital Signs (Past 12Hrs) Vital Signs Past 12 Hours Date Time Temp Pulse Resp B/P (MAP) Pulse Ox O2 Delivery O2 Flow Rate FiO2 08/17/17 04:00 Room Air 08/17/17 03:40 36.6 64 18 113/67 (82) 97 Room Air 08/16/17 23:59 Room Air 08/16/17 23:50 36.5 63 18 105/57 (73) 95 Room Air 08/16/17 20:00 Room Air Micro Results Date/Time Source Procedure Growth Status 08/15/17 14:55 Blood Blood Culture - Preliminary NO GROWTH TO DATE. Resulted 08/15/17 14:55 Blood Blood Culture - Preliminary NO GROWTH TO DATE. Resulted Risk Factors for Resistance * Hospitalization for 48 hours or more within the past 90 days * Antimicrobial use within the last 90 days Assessment & Plan Assessment 57 year old female s/p L BKA admitted with acute stump pain X 2 days, initiated on Vancomycin/Levaquin IV for bone/joint infection Blood cultures no growth to date. ID following. Plan Vancomycin IV * Loading dose: 1500 mg (25 mg/kg) * Maintenance dose: 1000 mg IV (17.5 mg/kg) every 12 hours * Goal trough level for bone and joint infection: 15 to 20 mcg/mL * Trough level ordered for 08/19/17 @0530 prior to 0600 dose Pharmacy will continue to follow and will adjust dose/frequency as necessary. Thank you.
[2017-08-17] MEDS: KETOROLAC TROMETHAMINE 30 MG/ML VIAL IV PRN (08:02)
[2017-08-17] MEDS: SOTALOL HCL 80 MG TAB PO SCH ×2 (08:07→21:00)
[2017-08-17] MEDS: AMLODIPINE BESYLATE 5 MG TAB PO SCH (08:07)
[2017-08-17] MEDS: GABAPENTIN 300 MG CAP PO SCH ×3 (08:07→21:01)
[2017-08-17] MEDS: PANTOprazole SOD 40 MG TAB PO SCH (08:08)
[2017-08-17] MEDS: ENOXAPARIN 40 MG/0.4 ML SYR SQ SCH ×2 (08:08→08:12)
[2017-08-17] MEDS: SENNA 8.6 MG TAB PO SCH ×2 (08:08→21:00)
[2017-08-17] MEDS: BuPROPion XL 150 MG TABCR PO SCH (08:08)
[2017-08-17] MEDS: FLUOXETINE HCL 20 MG CAP PO SCH (08:08)
[2017-08-17] MEDS: ASPIRIN 81 MG ECTAB PO SCH (08:09)
[2017-08-17] MEDS: CLOPIDOGREL BISULFATE 75 MG TAB PO SCH (08:09)
[2017-08-17 09:02] LABS: INR 2.2 (0.9-1.1)
--- NOTE | 2017-08-17 10:06 | Progress Note ---
Medicine Progress Note Date & Time of Visit: Aug 17, 2017 at 10:06 . Subjective Experiencing severe pain (9/10) left residual limb at BKA site. Oxycodone 10 mg not effective. Afebrile last night. Had brief episode of chest discomfort after MRI scan yesterday, no recurrence. No palpitations. No cough or SOB. No nausea, vomiting, diarrhea. No urinary symptoms. . Objective Last 8 Hrs Date Time Temp Pulse Resp B/P (MAP) Pulse Ox O2 Delivery O2 Flow Rate FiO2 08/17/17 08:00 Room Air 08/17/17 07:57 36.7 65 18 137/87 (104) 96 Room Air 08/17/17 04:00 Room Air 08/17/17 03:40 36.6 64 18 113/67 (82) 97 Room Air Physical Exam: General- appears to be uncomfortable secondary to pain Eyes- anicteric Neck- no JVD Lungs- clear Heart- RRR, I/ systolic murmur at base, no gallop Abdomen- + BS, soft, nontender Extremities- left BKA with tenderness distal residual limb; no erythema or drainage; no pretibial edema RLE Neuro- alert Skin- warm & dry . Laboratory Results: Last 24 Hours Test 08/17/17 08:29 Prothrombin Time 24.0 SECONDS Prothromb Time International Ratio 2.2 Assessment & Plan OSTEOMYELITIS LEFT TIBIA MRI demonstrated osteomyelitis of distal residual tibia. Receiving IV vancomycin and levofloxacin. ID consulted. Blood cultures negative so far. BKA performed at [facility]. ? need for debridement. Will ask [facility] to see patient in consultation, although patient hopes to avoid any further surgical procedures if necessary,. LLE PAIN Chronic pain since amputation, worse now with osteomyelitis. Titrate analgesics. Continue gabapentin. Increase oxycodone IR. Add IV hydromorphone for severe pain. PAROXYSMAL ATRIAL FIBRILLATION Usually controlled on sotalol. Developed PAF with rapid ventricular response during ED evaluation, converted back to NSR. Continue sotalol and warfarin. HYPERTENSION Hemodynamically stable. Continue amlodipine. VTE PROPHYLAXIS Warfarin. DISPOSITION To be determined. Family Medicine follow-up with Dr. Tai. . Current Inpatient Medications: Current Inpatient Medications Medications (Trade) Dose Ordered Sig/Rosa Route Start Time Stop Time Status Last Admin Dose Admin Sotalol HCl (Betapace Tab) 80 mg BID PO 08/16/17 09:00 09/15/17 08:59 08/17/17 08:07 80 MG Amlodipine Besylate (Norvasc Tab) 10 mg DAILY PO 08/16/17 09:00 09/15/17 08:59 08/17/17 08:07 10 MG Aspirin (Ecotrin Tab) 81 mg DAILY PO 08/16/17 09:00 09/15/17 08:59 08/17/17 08:09 81 MG Atorvastatin Calcium (Lipitor Tab) 80 mg HS PO 08/15/17 21:00 09/14/17 20:59 08/16/17 20:14 80 MG Bupropion HCl (Wellbutrin-Xl Tab) 150 mg DAILY PO 08/16/17 09:00 09/15/17 08:59 08/17/17 08:08 150 MG Clopidogrel Bisulfate (plAVix TAB) 75 mg DAILY PO 08/16/17 09:00 09/15/17 08:59 08/17/17 08:09 75 MG Fluoxetine HCl (Prozac Cap) 20 mg DAILY PO 08/16/17 09:00 09/15/17 08:59 08/17/17 08:08 20 MG Ondansetron HCl (Zofran Tab) 8 mg Q8 PRN PO 08/15/17 18:15 09/14/17 18:14 Pantoprazole Sodium (Protonix Tab) 40 mg DAILY PO 08/16/17 09:00 09/15/17 08:59 08/17/17 08:08 40 MG Zolpidem Tartrate (Ambien Tab) 5 mg HS PRN PO 08/15/17 18:15 09/14/17 18:14 08/16/17 21:31 5 MG Ranitidine HCl (zANTac TAB) 300 mg HS PO 08/15/17 21:00 09/14/17 20:59 08/16/17 20:14 300 MG Senna (Senokot Tab) 8.6 mg BID PO 08/15/17 21:00 09/14/17 20:59 08/17/17 08:08 8.6 MG Oxycodone HCl (Roxicodone Immediate Rel Tab) 10 mg Q4 PRN PO 08/15/17 23:30 08/29/17 18:14 08/17/17 09:29 10 MG Ketorolac Tromethamine (Toradol Inj) 30 mg Q6H PRN IV 08/15/17 23:30 08/20/17 23:29 08/17/17 08:02 30 MG Gabapentin (Neurontin Cap) 900 mg TID PO 08/16/17 09:00 09/15/17 08:59 08/17/17 08:07 900 MG Warfarin Sodium (Coumadin Tab) 7.5 mg DAILY@1600 PO 08/16/17 16:00 09/17/17 15:59 08/16/17 15:34 7.5 MG Enoxaparin Sodium (Lovenox Inj) 40 mg QAM SQ 08/17/17 09:00 09/16/17 08:59 Gadobutrol (Gadavist) 5.5 mmol UD PRN IV 08/16/17 22:45 08/20/17 22:44 Vancomycin HCl (Consult) 1 ea UD PRN N/A 08/16/17 23:45 09/15/17 23:44 Levofloxacin 750 mg/Prmx 150 ml @ 100 mls/hr Q24H IV 08/17/17 00:00 09/28/17 00:00 08/17/17 00:03 100 MLS/HR Vancomycin HCl 1000 mg/Sodium Chloride 270 ml @ 125 mls/hr Q12H IV 08/17/17 18:00 09/28/17 17:59
[2017-08-17] MEDS ORDERED: HYDROmorphone INJ 1 MG/ML SYR IV ONE (10:15)
[2017-08-17] MEDS: WARFARIN SOD 7.5 MG TAB PO SCH (15:28)
--- NOTE | 2017-08-17 16:50 | Infectious Disease Progress Nt ---
Progress Note Date of Service Aug 17, 2017. 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 Remains afebrile. MRI scan, reviewed by me, shows evidence of osteomyelitis at the distal stump with surrounding inflammatory changes. Currently on vancomycin and levofloxacin. All Other Systems: Reviewed and Negative Medications Current Inpatient Medications Medications (Trade) Dose Ordered Sig/Rosa Route Start Time Stop Time Status Last Admin Dose Admin Sotalol HCl (Betapace Tab) 80 mg BID PO 08/16/17 09:00 09/15/17 08:59 08/17/17 08:07 80 MG Amlodipine Besylate (Norvasc Tab) 10 mg DAILY PO 08/16/17 09:00 09/15/17 08:59 08/17/17 08:07 10 MG Aspirin (Ecotrin Tab) 81 mg DAILY PO 08/16/17 09:00 09/15/17 08:59 08/17/17 08:09 81 MG Atorvastatin Calcium (Lipitor Tab) 80 mg HS PO 08/15/17 21:00 09/14/17 20:59 08/16/17 20:14 80 MG Bupropion HCl (Wellbutrin-Xl Tab) 150 mg DAILY PO 08/16/17 09:00 09/15/17 08:59 08/17/17 08:08 150 MG Clopidogrel Bisulfate (plAVix TAB) 75 mg DAILY PO 08/16/17 09:00 09/15/17 08:59 08/17/17 08:09 75 MG Fluoxetine HCl (Prozac Cap) 20 mg DAILY PO 08/16/17 09:00 09/15/17 08:59 08/17/17 08:08 20 MG Ondansetron HCl (Zofran Tab) 8 mg Q8 PRN PO 08/15/17 18:15 09/14/17 18:14 Pantoprazole Sodium (Protonix Tab) 40 mg DAILY PO 08/16/17 09:00 09/15/17 08:59 08/17/17 08:08 40 MG Zolpidem Tartrate (Ambien Tab) 5 mg HS PRN PO 08/15/17 18:15 09/14/17 18:14 08/16/17 21:31 5 MG Ranitidine HCl (zANTac TAB) 300 mg HS PO 08/15/17 21:00 09/14/17 20:59 08/16/17 20:14 300 MG Senna (Senokot Tab) 8.6 mg BID PO 08/15/17 21:00 09/14/17 20:59 08/17/17 08:08 8.6 MG Gabapentin (Neurontin Cap) 900 mg TID PO 08/16/17 09:00 09/15/17 08:59 08/17/17 13:29 900 MG Warfarin Sodium (Coumadin Tab) 7.5 mg DAILY@1600 PO 08/16/17 16:00 09/17/17 15:59 08/17/17 15:28 7.5 MG Enoxaparin Sodium (Lovenox Inj) 40 mg QAM SQ 08/17/17 09:00 09/16/17 08:59 Gadobutrol (Gadavist) 5.5 mmol UD PRN IV 08/16/17 22:45 08/20/17 22:44 Vancomycin HCl (Consult) 1 ea UD PRN N/A 08/16/17 23:45 09/15/17 23:44 Levofloxacin 750 mg/Prmx 150 ml @ 100 mls/hr Q24H IV 08/17/17 00:00 09/28/17 00:00 08/17/17 00:03 100 MLS/HR Vancomycin HCl 1000 mg/Sodium Chloride 270 ml @ 125 mls/hr Q12H IV 08/17/17 18:00 09/28/17 17:59 Hydromorphone HCl (Dilaudid Inj) 1 mg Q3H PRN IV 08/17/17 10:15 08/31/17 10:14 Oxycodone HCl (Roxicodone Immediate Rel Tab) 20 mg Q6H PRN PO 08/17/17 10:15 08/31/17 10:14 08/17/17 13:30 20 MG Objective Vital Signs Date Time Temp Pulse Resp B/P (MAP) Pulse Ox O2 Delivery O2 Flow Rate FiO2 08/17/17 15:45 36.6 61 18 103/72 (82) 96 Room Air 08/17/17 12:00 Room Air 08/17/17 11:42 36.6 60 16 125/76 (92) 96 Room Air 08/17/17 08:00 Room Air 08/17/17 07:57 36.7 65 18 137/87 (104) 96 Room Air 08/17/17 04:00 Room Air 08/17/17 03:40 36.6 64 18 113/67 (82) 97 Room Air 08/16/17 23:59 Room Air 08/16/17 23:50 36.5 63 18 105/57 (73) 95 Room Air 08/16/17 20:00 Room Air 08/16/17 19:46 36.6 61 18 122/82 (95) 95 Room Air 08/16/17 17:03 36.5 66 24 123/81 (95) 93 Room Air Physical Exam General Appearance: WD/WN, no apparent distress Eyes: normal inspection, EOMI, sclerae normal ENT: normal ENT inspection, pharynx normal Neck: supple, no adenopathy, thyroid normal, trachea midline Respiratory/Chest: chest non-tender, lungs clear, normal breath sounds, no respiratory distress Cardiovascular: regular rate, rhythm, no gallop, no murmur Abdomen: normal bowel sounds, non tender, soft, no organomegaly Extremities: normal capillary refill, + pertinent finding ( Tenderness left BKA site) Neurologic/Psychiatric: alert, oriented x 3 Skin: normal color, no rash Lymphatic: no adenopathy Laboratory Results RUN DATE: 08/17/17 [facility] LAB PAGE 1 RUN TIME: 707 Specimen Inquiry PATIENT: TIARA MCCALL LOC: [facility] U # : [id number] AGE/SX: 57/F ROOM: E209 REG : 08/15/[address]: Mehdi García M.D. : 1960 BED: 1 DIS : STATUS: ADM IN TLOC: SPEC #: [id number] BEL: 08/15/17 STATUS: RES REQ #: [id number] RECD: 08/15/[address]: Ana Walls PA-C SOURCE: BLOOD ENTR: 08/15/17-143 [facility] DR: Sherif Ricketts M.D. SPDESC: Fabio Tai M.D. ORDERED: BLOOD CULTURE Procedure Result Verified Site BLD CULT Preliminary 08/17/17 NO GROWTH TO DATE. Last 24 Hours Test 08/17/17 08:29 Prothrombin Time 24.0 SECONDS Prothromb Time International Ratio 2.2 Patient Name: TIARA MCCALL Unit Number: [id number] Dictated: 08/16/172242 Transcribed: 08/16/172242 MS Printed Date/Time: [~ rep prt dt]/[~ rep prt tm] [~ rep ct labl] - [~ rep ct ivnm] [facility] Radiology Department [place], [place] [id number] Dictated: 08/16/172242 Transcribed: 08/16/172242 MS Printed Date/Time: [~ rep prt dt]/[~ rep prt tm] [~ rep ct labl] - [~ rep ct ivnm] [~ rep ct add3]] L LOWER EXT NONJOINT COMBO CLINICAL HISTORY: L stump pain, rule out osteo pain. Infection. TECHNIQUE: Multiaxial images pre and post contrast enhancement COMPARISON STUDY: None FINDINGS: Patient is status post [id number]-wqty amputation. There are findings of moderate reactive bone marrow edema of the medial femoral condyle as well as proximal aspect medial tibia. This most likely is stress related. Operative changes consistent with a below-knee amputation are noted. There is evidence for bone marrow replacement involving the distal aspect of the residual tibia measuring 3 x 1.6 cm. This shows an increase in signal diffusely on the inversion recovery and T2-weighted images as well as post contrast enhancement. The surrounding musculature shows evidence for moderate inflammatory-type change. It also shows a component of postcontrast enhancement. The fibular remnant shows unremarkable bone marrow signal characteristics. Expected soft tissue configuration due to the amputation is present. IMPRESSION: 1. Operative changes consistent with a below-knee amputation. 2. Osteomyelitis of the distal aspect of the residual tibia with a greatest overall extent of 3.0 x 1.6 cm. 3. Surrounding inflammatory change of the musculature inferior to the knee. 4. No evidence for involvement of the fibula. 5. No evidence for drainable abscess or collection. The above report was generated using voice recognition software. It may contain grammatical, syntax or spelling errors. Electronically signed by: Santos Mckenzie M.D. 08/16/2017 10:49 PM Dictated Date/Time: 08/16/2017 10:43 PM The status of this report is Signed. Draft = Not yet reviewed or approved by Radiologist. Signed = Reviewed and approved by Radiologist. <AttendingPhy>Flor Dawkins, DO</AttendingPhy> <FamilyPhy>Fabio Tai M.D.</FamilyPhy> <PrimaryPhy>Fabio Tai M.D.</PrimaryPhy> <UnitNumber> [id number]</UnitNumber> <VisitNumber>[id number]</VisitNumber> <PatientName> TIARA MCCALL</PatientName> <DateOfBirth>1960</DateOfBirth> <Location> C.2E</Location> <ServiceDate>08/15/17</ServiceDate> <MNE>ESINDI</MNE> < OrderingPhy>Flor Dawkins DO</OrderingPhy> <OrderingPhyMNE>f rep ord dr yadav< /OrderingPhyMNE> <DictatingPhyMNE>f rep dict dr yadav</DictatingPhyMNE> <CCListMNE >f rep ct mne</CCListMNE> <AdmittingPhyMNE>f pt admit dr yadav</AdmittingPhyMNE> < AttendingPhyMNE>f pt attend dr yadav</AttendingPhyMNE> <ConsultingPhyMNE>f pt consult dr yadav</ConsultingPhyMNE> <FamilyPhyMNE>f pt fam dr yadav</FamilyPhyMNE> <OtherPhyMNE>f pt other dr yadav</OtherPhyMNE> < PrimaryPhyMNE>f pt prim care dr yadav</PrimaryPhyMNE> <ReferringPhyMNE>f pt referring dr yadav</ReferringPhyMNE> Assessment and Plan 57-year-old female status post left BKA now with return of severe pain localized to the lateral stump area without obvious fluctuance or significant erythema. MRI suggestive of persistent infection at distal BKA site, agree with broad-spectrum antibiotics. Would obtain vascular/ surgical consultation for possible revision. Will follow.
[2017-08-17] MEDS: HYDROmorphone INJ 1 MG/ML SYR IV PRN ×2 (17:16→21:06)
[2017-08-17] MEDS: VANCOMYCIN INJ 1,000 MG in SODIUM CHLORIDE 0.9% 250ML 250 ML IV SCH (17:56)
[2017-08-17] MEDS: ATORVASTATIN 40 MG TAB PO SCH (21:01)
[2017-08-17] MEDS: ZOLPIDEM TARTRATE 5 MG TAB PO PRN (21:03)
[2017-08-17] MEDS: RANITIDINE HCL 150 MG TAB PO SCH (21:03)
[2017-08-18 00:06] VITALS: BP 107/93; PULSE 140; TEMP 36.6; O2SAT 95
[2017-08-18] MEDS: LEVOFLOXACIN / D5W 750 MG in PREMIXED IN D5W 150 ML IV SCH (00:10)
[2017-08-18] MEDS: OXYCODONE HCL IR 5 MG TAB (IMMEDIATE RELEASE) PO PRN ×4 (02:05→20:59)
[2017-08-18 03:42] VITALS: BP 106/65; PULSE 69; TEMP 36.8; O2SAT 96
[2017-08-18] MEDS: HYDROmorphone INJ 1 MG/ML SYR IV PRN ×3 (04:33→15:41)
[2017-08-18 06:01] LABS: HEMATOCRIT 35.1 % (37-47); MEAN CELL VOLUME 95.6 fL (80-100); MEAN CORPUSCULAR HEMOGLOBIN 30.2 pg (25-34); MEAN CORPUSCULAR HGB CONC 31.6 g/dl (32-36); MEAN PLATELET VOLUME 11.5 fL (7.4-10.4); PLATELET COUNT 152 K/uL (130-400); RED BLOOD COUNT 3.67 M/uL (4.2-5.4); WHITE BLOOD COUNT 7.55 K/uL (4.8-10.8)
[2017-08-18] MEDS: VANCOMYCIN INJ 1,000 MG in SODIUM CHLORIDE 0.9% 250ML 250 ML IV SCH (06:08)
[2017-08-18 06:46] LABS: INR 1.7 (0.9-1.1); PROTHROMBIN TIME (PATIENT) 18.4 SECONDS (9.0-12.0)
[2017-08-18 06:49] LABS: BUN/CREATININE RATIO 12.9 (10-20); CALCIUM 8.3 mg/dl (8.5-10.1); CREATININE 1.02 mg/dl (0.60-1.20); POTASSIUM 4.6 mmol/L (3.5-5.1)
[2017-08-18 07:51] VITALS: BP 106/62; PULSE 74; TEMP 37.1; O2SAT 97
[2017-08-18] MEDS: SOTALOL HCL 80 MG TAB PO SCH ×2 (08:16→20:58)
[2017-08-18] MEDS: BuPROPion XL 150 MG TABCR PO SCH (08:17)
[2017-08-18] MEDS: FLUOXETINE HCL 20 MG CAP PO SCH (08:17)
[2017-08-18] MEDS: GABAPENTIN 300 MG CAP PO SCH ×3 (08:18→20:58)
[2017-08-18] MEDS: CLOPIDOGREL BISULFATE 75 MG TAB PO SCH (08:18)
[2017-08-18] MEDS: PANTOprazole SOD 40 MG TAB PO SCH (08:18)
[2017-08-18] MEDS: SENNA 8.6 MG TAB PO SCH ×2 (08:19→20:59)
[2017-08-18] MEDS: ENOXAPARIN 40 MG/0.4 ML SYR SQ SCH (08:19)
[2017-08-18] MEDS: ASPIRIN 81 MG ECTAB PO SCH (08:19)
[2017-08-18] MEDS: AMLODIPINE BESYLATE 5 MG TAB PO SCH (08:19)
--- NOTE | 2017-08-18 10:03 | Orthopedic Consultation ---
Orthopedic Consultation Date of Consultation: Aug 18, 2017. Attending Physician: Mehdi García M.D. Reason for Consultation: Osteomyelitis left distal tibia; s/p amputation History of Present Illness Patient is a pleasant 57-year-old female With the past medical history of peripheral vascular disease. She states that in September she underwent bilateral femoral stenting to improve blood flow on bilateral lower extremities. She states that she recovered well from that surgery. She also does have a history of Atrial fibrillation In which she takes chronic Coumadin for. In November 2016 she fell and injured her left ankle sustaining A left ankle fracture. She states she then developed an infection of her left ankle and underwent 16 surgeries for that left ankle infection. She was on chronic antibiotics. During treatment of her infection she also underwent bypass graft left limb to improve blood flow. She was then referred to the wound center around April time due to nonhealing wounds. At that time she did not feel well and while the wound center was recommended to go to the emergency room directly. She was then found to be in acute liver failure and was transferred to [place] for treatment. She states that she went into acute liver failure due to the chronic antibiotic usage. During that time was recommended for treatment of her chronic infection of her left ankle a below- knee amputation. She agreed to proceed with surgery. She underwent below-knee amputation on May 27, 2017 at [place]. Her surgery was performed by Dr. Cherie Lee. This that she has done well after surgery her pain had significantly improved and her pain medication usage improved as well. She was recently seen down in [place] for postoperative follow-up and the prosthesis was prescribed. She has been going to [facility] for fittings. She has had 2 fittings of the prosthetic. She states that it has felt like it has been rubbing she was wearing and incorrectly. While at her appointment on she noted a small pinpoint area on the medial aspect of her incision that was draining blood. She denies any purulence or foul smell from the drainage. She did not reapply her prosthetic at that time. She states that Wednesday she will go up in pain of her left limb and progressed throughout the day. She states that it felt exactly like infection in her bone that should previously felt with her ankle. She presented to the emergency room for evaluation. While in the emergency room she went into atrial fibrillation and was admitted for observation. Her CBC, CRP and sedimentation rate were normal at time of admission. X-ray was negative for any bony changes suggestive of osteomyelitis. No MRI was initially obtained. Her antibiotics were stopped due to her normal labs and x-ray. Dr. Forde was consulted from infectious disease and recommended obtaining an MRI due to her history of previous infection. An MRI was obtained on August 16, 2017 and revealed osteomyelitis in the distal tibia. No osteomyelitis in the fibula. No abscess or collection. Localized soft tissue inflammation and edema. Her medicine doctors recommended an orthopedic consultation. She refused to see her previous surgeon Dr. Fischer from [facility]. Consult was placed for Dr. Gan for further evaluation and treatment recommendations. She states at this time she knew she had an infection in her left tibia and she is willing to do whatever is necessary to prevent infection from spreading and her losing more of her leg. Past Medical/Surgical History Medical Problems: (1) Acute liver failure Status: Acute (2) Cellulitis Status: Acute (3) Contusion of ankle, left Status: Acute (4) Lower extremity edema Status: Acute (5) Rapid atrial fibrillation Status: Acute (6) Trimalleolar fracture of ankle, closed Status: Acute 7. Status post below-knee amputation left lower extremity on May 27, 2017 8. Osteomyelitis left tibia 9. Peripheral vascular disease status post stenting bilateral lower extremities Family History Hypertension FATHER MOTHER Social History Smoking Status: Current Every Day Smoker Drug Use: none Marital Status: Housing Status: lives with family Occupation Status: disabled Allergies Coded Allergies: Amoxicillin (Verified Allergy, Severe, LIVER FAILURE, 08/15/17) Clavulanic Acid (Verified Allergy, Severe, LIVER FAILURE, 08/15/17) Adhesives (Verified Allergy, Mild, 08/15/17) Acetaminophen (Verified Allergy, Unknown, LIVER DAMAGE-DUE TO FAILURE, ) Guanfacine (Verified Allergy, Unknown, 08/15/17) Nifedipine (Verified Allergy, Unknown, 08/15/17) Home Medications Scheduled Amlodipine (Norvasc), 10 MG PO DAILY Aspirin (Aspirin Ec), 81 MG PO DAILY Atorvastatin (Lipitor), 80 MG PO HS Bupropion Hcl (Wellbutrin Xl), 150 MG PO DAILY Clopidogrel (Plavix), 75 MG PO DAILY Fluoxetine (Prozac), 20 MG PO DAILY Pantoprazole (Protonix), 40 MG PO DAILY Ranitidine (Zantac), 300 MG PO HS Sotalol Hcl (Sotalol Hcl), 80 MG PO BID Warfarin Sod (Jantoven), 5 MG PO DAILY Scheduled PRN Ondansetron Hcl (Zofran), 8 MG PO for Nausea Oxycodone HCl (Oxycodone HCl), 5-10 MG PO Q4 PRN for Pain Zolpidem Tartrate (Ambien), 5 MG PO HS PRN for Sleep Current Inpatient Medications Current Inpatient Medications Medications (Trade) Dose Ordered Sig/Rosa Route Start Time Stop Time Status Last Admin Dose Admin Sotalol HCl (Betapace Tab) 80 mg BID PO 08/16/17 09:00 09/15/17 08:59 08/18/17 08:16 80 MG Amlodipine Besylate (Norvasc Tab) 10 mg DAILY PO 08/16/17 09:00 09/15/17 08:59 08/18/17 08:19 10 MG Aspirin (Ecotrin Tab) 81 mg DAILY PO 08/16/17 09:00 09/15/17 08:59 08/18/17 08:19 81 MG Atorvastatin Calcium (Lipitor Tab) 80 mg HS PO 08/15/17 21:00 09/14/17 20:59 08/17/17 21:01 80 MG Bupropion HCl (Wellbutrin-Xl Tab) 150 mg DAILY PO 08/16/17 09:00 09/15/17 08:59 08/18/17 08:17 150 MG Clopidogrel Bisulfate (plAVix TAB) 75 mg DAILY PO 08/16/17 09:00 09/15/17 08:59 08/18/17 08:18 75 MG Fluoxetine HCl (Prozac Cap) 20 mg DAILY PO 08/16/17 09:00 09/15/17 08:59 08/18/17 08:17 20 MG Ondansetron HCl (Zofran Tab) 8 mg Q8 PRN PO 08/15/17 18:15 09/14/17 18:14 Pantoprazole Sodium (Protonix Tab) 40 mg DAILY PO 08/16/17 09:00 09/15/17 08:59 08/18/17 08:18 40 MG Zolpidem Tartrate (Ambien Tab) 5 mg HS PRN PO 08/15/17 18:15 09/14/17 18:14 08/17/17 21:03 5 MG Ranitidine HCl (zANTac TAB) 300 mg HS PO 08/15/17 21:00 09/14/17 20:59 08/17/17 21:03 300 MG Senna (Senokot Tab) 8.6 mg BID PO 08/15/17 21:00 09/14/17 20:59 08/17/17 08:08 8.6 MG Gabapentin (Neurontin Cap) 900 mg TID PO 08/16/17 09:00 09/15/17 08:59 08/18/17 08:18 900 MG Warfarin Sodium (Coumadin Tab) 7.5 mg DAILY@1600 PO 08/16/17 16:00 09/17/17 15:59 08/17/17 15:28 7.5 MG Enoxaparin Sodium (Lovenox Inj) 40 mg QAM SQ 08/17/17 09:00 09/16/17 08:59 Gadobutrol (Gadavist) 5.5 mmol UD PRN IV 08/16/17 22:45 08/20/17 22:44 Vancomycin HCl (Consult) 1 ea UD PRN N/A 08/16/17 23:45 09/15/17 23:44 Levofloxacin 750 mg/Prmx 150 ml @ 100 mls/hr Q24H IV 08/17/17 00:00 09/28/17 00:00 08/18/17 00:10 100 MLS/HR Vancomycin HCl 1000 mg/Sodium Chloride 270 ml @ 125 mls/hr Q12H IV 08/17/17 18:00 09/28/17 17:59 08/18/17 06:08 125 MLS/HR Hydromorphone HCl (Dilaudid Inj) 1 mg Q3H PRN IV 08/17/17 10:15 08/31/17 10:14 08/18/17 04:33 1 MG Oxycodone HCl (Roxicodone Immediate Rel Tab) 20 mg Q6H PRN PO 08/17/17 10:15 08/31/17 10:14 08/18/17 08:16 20 MG Review of Systems Constitutional: No fever, No chills, No weight loss Eyes: No worsening of vision, No redness ENT: No hearing loss, No sore throat Respiratory: No cough, No sputum, No wheezing, No shortness of breath Cardiovascular: No chest pain, No palpitations (States that she does not feel her heart go into atrial fibrillation) Abdomen: No pain, No nausea, No vomiting, No diarrhea, No constipation Musculoskeletal: + problem reported (Pain in her left tibia, Denies any increased swelling or redness of her left leg.) Genitourinary - Female: No dysuria, No urinary frequency Neurologic: No numbness/tingling Hematologic / Lymphatic: + abnormal bleeding/bruising (on chronic coumadin) Integumentary: No rash, No itch Physical Exam Date Time Temp Pulse Resp B/P (MAP) Pulse Ox O2 Delivery O2 Flow Rate FiO2 08/18/17 08:00 Room Air 08/18/17 07:51 37.1 74 18 106/62 (77) 97 08/18/17 04:00 Room Air 08/18/17 03:42 36.8 69 20 106/65 (79) 96 Room Air 08/18/17 00:06 36.6 140 20 107/93 (98) 95 Room Air 08/17/17 23:59 Room Air 08/17/17 20:00 94 Room Air 08/17/17 19:23 36.6 65 18 105/67 (80) 94 Room Air 08/17/17 16:00 96 Room Air 08/17/17 15:45 36.6 61 18 103/72 (82) 96 Room Air 08/17/17 12:00 Room Air 08/17/17 11:42 36.6 60 16 125/76 (92) 96 Room Air General Appearance: WD/WN, no apparent distress Extremities/Musculoskelatal: + pertinent finding (Exam of left lower extremity : her left hip and knee have full range of motion without any discomfort. There is no effusion of her left knee. There is no erythema or warmth of her left leg. Her previous surgical incision from the amputation is healed nicely. There is a small pinhole scab on the very medial aspect of the incision that appears to be healed over. There is no area of fluctuance. She is point tender with palpation of the tibia below her knee. She has no tenderness over the fibula. There is no erythema, minimal swelling. Distal sensation is normal.) Neurologic/Psych: no motor/sensory deficits, alert, normal mood/affect, oriented x 3 Skin: normal color, warm/dry, no rash Laboratory Results Last 24 Hours Test 08/18/17 05:39 White Blood Count 7.55 K/uL Red Blood Count 3.67 M/uL Hemoglobin 11.1 g/dL Hematocrit 35.1 % Mean Corpuscular Volume 95.6 fL Mean Corpuscular Hemoglobin 30.2 pg Mean Corpuscular Hemoglobin Concent 31.6 g/dl RDW Standard Deviation 52.8 fL RDW Coefficient of Variation 15.1 % Platelet Count 152 K/uL Mean Platelet Volume 11.5 fL Prothrombin Time 18.4 SECONDS Prothromb Time International Ratio 1.7 Sodium Level 135 mmol/L Potassium Level 4.6 mmol/L Chloride Level 102 mmol/L Carbon Dioxide Level 26 mmol/L Anion Gap 7.0 mmol/L Blood Urea Nitrogen 13 mg/dl Creatinine 1.02 mg/dl Est Creatinine Clear Calc Drug Dose 48.1 ml/min Estimated GFR () 70.7 Estimated GFR (Non- 61.0 BUN/Creatinine Ratio 12.9 Random Glucose 95 mg/dl Calcium Level 8.3 mg/dl Sedimentation rate from August 15, 2017 was 12, CRP was <0.29. Blood cultures currently pending and are negative. Radiology images: L TIBIA/FIBULA 2 VIEWS ROUTINE CLINICAL HISTORY: Left lower leg infection. Assess for osteomyelitis. COMPARISON STUDY: Left tibia/fibula 12/13/2016. FINDINGS: Patient is status post a below the knee amputation. No cortical destruction to suggest osteomyelitis at the amputated fibula or tibia. There is heterotopic ossification surrounding the distal fibula and tibia. Mild soft tissue swelling at the stump. No fractures. Vascular calcifications and the superficial femoral arterial stent are noted. IMPRESSION: Prior below the knee amputation. No radiographic evidence for osteomyelitis. L LOWER EXT NONJOINT COMBO CLINICAL HISTORY: L stump pain, rule out osteo pain. Infection. TECHNIQUE: Multiaxial images pre and post contrast enhancement COMPARISON STUDY: None FINDINGS: Patient is status post [id number] amputation. There are findings of moderate reactive bone marrow edema of the medial femoral condyle as well as proximal aspect medial tibia. This most likely is stress related. Operative changes consistent with a below-knee amputation are noted. There is evidence for bone marrow replacement involving the distal aspect of the residual tibia measuring 3 x 1.6 cm. This shows an increase in signal diffusely on the inversion recovery and T2-weighted images as well as post contrast enhancement. The surrounding musculature shows evidence for moderate inflammatory-type change. It also shows a component of postcontrast enhancement. The fibular remnant shows unremarkable bone marrow signal characteristics. Expected soft tissue configuration due to the amputation is present. IMPRESSION: 1. Operative changes consistent with a below-knee amputation. 2. Osteomyelitis of the distal aspect of the residual tibia with a greatest overall extent of 3.0 x 1.6 cm. 3. Surrounding inflammatory change of the musculature inferior to the knee. 4. No evidence for involvement of the fibula. 5. No evidence for drainable abscess or collection. Assessment & Plan Assessment: Left lower extremity pain, status post below-knee amputation on May 27, 2017, suspected osteomyelitis left distal tibia. Plan: This point we talked about conservative versus surgical intervention. At this point she is willing to do whatever it takes to prevent further infection and further loss of her left leg. We talked about chronic IV antibiotic usage with with the PICC line which she is slightly hesitant to do to do her history of acute liver failure from being on antibiotics earlier this year. She is agreeable to further debridement and revision amputation if necessary and if that is the only way that would prevent further loss of her left limb. Explained to her at this point there is no urgency for surgery today due to her labs being normal and her looking pretty good. She is currently on IV antibiotics per infectious disease. Would recommend continuing that at this point. We will discuss findings with Dr. Gan and he will see patient later today to determine definitive treatment plan. If surgery is necessary she would like to have it done here [facility].
[2017-08-18 11:44] VITALS: BP 132/73; PULSE 78; TEMP 36.9; O2SAT 100
[2017-08-18] MEDS: ONDANSETRON 8 MG TAB PO PRN (13:08)
--- NOTE | 2017-08-18 13:34 | Surgery Consultation ---
Consultation Date of Service Aug 18, 2017. (Nimo Leigh, NOREEN) Chief Complaint PAD, LLE BKA osteomyelitis (Nimo Leigh, NOREEN) History of Present Illness The patient is a 57 year old female with multiple medical problems, including PAD, seen in consultation today for PAD in association with LLE BKA osteomyelitis. Pt states she had a L ankle fx last spring, and the wound did not heal, subsequently ending in LLE BKA d/t repeated infections. Pt has hx of BLE PAD with stents placed, follows with [facility] vascular surgery Dr Jordan, whom she saw in office about 2 weeks ago and is to see again in 1 month. Pt states she underwent LLE BKA at [facility] while admitted for acute liver failure in 2016. The wound was completely healed, and she was fitted for a prosthetic a few weeks ago, however, she states the prosthetic rubbed the medial aspect of her wound, causing a small opening. She developed pain in her stump that was not present before, so came to [facility] for eval. Pt denies fever, chills, chest pain, SOB, abd pain, N/V, rest pain, claudication, other complaints. Is able to ambulate with walker on her RLE only, no claudication sx. (Nimo Leigh, NOREEN) Vitals Vital Signs Past 12 Hours Date Time Temp Pulse Resp B/P (MAP) Pulse Ox O2 Delivery O2 Flow Rate FiO2 08/18/17 12:00 Room Air 08/18/17 11:44 36.9 78 18 132/73 (92) 100 08/18/17 08:00 Room Air 08/18/17 07:51 37.1 74 18 106/62 (77) 97 08/18/17 04:00 Room Air 08/18/17 03:42 36.8 69 20 106/65 (79) 96 Room Air (Nimo Leigh, NOREEN) Allergies Coded Allergies: Amoxicillin (Verified Allergy, Severe, LIVER FAILURE, 08/15/17) Clavulanic Acid (Verified Allergy, Severe, LIVER FAILURE, 08/15/17) Adhesives (Verified Allergy, Mild, 08/15/17) Acetaminophen (Verified Allergy, Unknown, LIVER DAMAGE-DUE TO FAILURE, ) Guanfacine (Verified Allergy, Unknown, 08/15/17) Nifedipine (Verified Allergy, Unknown, 08/15/17) Home Medications Scheduled Amlodipine (Norvasc), 10 MG PO DAILY Aspirin (Aspirin Ec), 81 MG PO DAILY Atorvastatin (Lipitor), 80 MG PO HS Bupropion Hcl (Wellbutrin Xl), 150 MG PO DAILY Clopidogrel (Plavix), 75 MG PO DAILY Fluoxetine (Prozac), 20 MG PO DAILY Pantoprazole (Protonix), 40 MG PO DAILY Ranitidine (Zantac), 300 MG PO HS Sotalol Hcl (Sotalol Hcl), 80 MG PO BID Warfarin Sod (Jantoven), 5 MG PO DAILY Scheduled PRN Ondansetron Hcl (Zofran), 8 MG PO for Nausea Oxycodone HCl (Oxycodone HCl), 5-10 MG PO Q4 PRN for Pain Zolpidem Tartrate (Ambien), 5 MG PO HS PRN for Sleep Problem List Medical Problems: (1) Ankle fracture, bimalleolar, closed (2) Atrial fibrillation with RVR (3) Chest pain (4) Dehiscence of closure of skin (5) Depression (6) Dyslipidemia (7) History of blood clots (8) HTN (hypertension) (9) Infection of left below knee amputation (10) Infection of prosthesis (11) 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 (12) Osteomyelitis of left fibula (13) Paroxysmal atrial fibrillation (14) PVD (peripheral vascular disease) (15) SOB (shortness of breath) (16) Surgical wound infection Surgical Problems: (1) H/O vascular surgery (2) History of appendectomy (3) Status post ORIF of fracture of ankle (Nimo Leigh PA-C) Surgical / Medical History Hx Cardiac Surgery: No Hx Abdominal Surgery: Yes (appendectomy) Hx Cancer Surgery: Yes (cervical ca) Hx Thoracic Surgery: No Hx Orthopedic: Yes (ORIF lt ankle 12/11 surgical debridement of lt ankle numerous times) Hx Urinary Tract Surgery: No Past Medical/Surgical History: Heart Disease, High Cholesterol, Hypertension, Liver Disease (Nimo Leigh, SYLWIAC) Family History Hypertension FATHER MOTHER (Nimo Leigh PA-C) Hypertension FATHER MOTHER (Payam Maya M.D.) Social History Smoking Status: Current Every Day Smoker Hx Tobacco Use In Past Year?: No Hx Alcohol Use - Type & Amnt: Yes (1-2 beers/day) Hx Substance Use -Type & Amnt: No (Nimo Leigh, NOREEN) Review of Systems Constitutional: No chills, No fever, No malaise Skin: No change in color Eyes: No visual changes ENMT: No sore throat Respiratory: No cough, No TRISTAN, No hemoptysis Cardiovascular: No chest pain, No edema, No intermittent claudication Gastrointestinal: No abdominal pain, No nausea, No vomiting Genitourinary - Female: No dysuria, No hematuria Neurologic: No dizziness, No weakness, No headache, No numbness, No tingling ( Nimo Leigh, SYLWIAC) Physical Exam Constitutional: General Apperance: well-nourished, well-developed Level of Distress: NAD, chronically ill Psychiatric: Mental Status: active & alert, normal mood, normal affect Orientation: oriented except where noted, to time, to place, to person Memory: recent memory normal, remote memory normal Head: normocephalic, atraumatic Eyes: EOM: EOMI ENMT: normal ENT inspection, hearing grossly normal Neck: supple, trachea midline Lungs: Respiratory effort: no dyspnea Auscultation: no rales/crackles, no rhonchi, decreased breath sounds Cardiovascular: Apical Impulse: not displaced Heart Auscultation: no rubs, no gallops, pertinent finding (irregular) Peripheral Pulses: Pulses: full and equal, in all extremities except if noted Bruits: none appreciated Carotid Pulse: normal on the left, normal on the right Brachial Pulses: normal on the left, normal on the right Radial Pulse: normal on the left, normal on the right Femoral Pulse: pertinent finding (femoral pulses +2 BLE) Posterior Tibialis Pulse: pertinent finding (LLE BKA, RLE nonpalpable) Dorsalis Pedis Pulse: pertinent finding (LLE BKA, RLE nonpalpable) Abdomen: Bowel Sounds: normal Inspection & Palpation: soft, non-distended, no tenderness, guarding & rebound Musculoskeletal: normal strength (5/5 throughout), normal tone Extremities: Upper Right: no cyanosis, no edema, no varicosities Upper Left: no cyanosis, no edema, no varicosities Lower Right: no cyanosis, no edema, no varicosities Lower Left: no cyanosis, no edema, no varicosities, pertinent finding (LLE BKA noted, well healed, + hair growth. Medial aspect with pinpoint open area, appears scabbed over presently, no drainage noted. No erythema or edema. No other open areas. ) Neurologic: Cranial Nerves: grossly intact Sensation: grossly intact (Nimo Leigh, PA-C) Assessment and Plan ASSESSMENT and PLAN: LLE BKA osteomyelitis PAD Pt with hx of PAD and stent placement at [facility] by Dr Jordan, also follows with him regularly. Pt with good femoral pulses BLE, excellent BKA site wound healing, and no sign of ischemia. Pt discussed at length with Dr Maya, does not recommend vascular surgical intervention at this time. Pt should have adequate flow to heal a BKA surgical debridement, if deemed necessary by orthopedics. Would be happy to reevaluate if further concerns arise. (Nimo Leigh, PA-C) Patient was seen, examined, and chart reviewed. Agree with exam and treatment plan of the Vascular PA. No intervention required. On exam arterial flow to stump of left leg appears adequate for future surgical procedures if needed. Thank you very much for letting me participate in the care of this patient. (Payam Maya M.D.)
--- NOTE | 2017-08-18 13:45 | PROGRESS NOTE ---
DATE: 08/18/2017 HISTORY OF PRESENT ILLNESS: The patient examined. At this point in time, it is unclear whether this represents a stress reaction versus osteomyelitis. She presently is afebrile. Her white count is not elevated. She only has some discomfort. The area is not red, warm. There is no collection. Plain x-rays are without any gross osteomyelitic changes. MRI scan has been read as that; however, I am not clear that it is osteomyelitis based on the MRI versus a stress reaction. I confirmed this with radiology as well. Discussed with Dr. García. At this point in time, I think observation is warranted with a good vascular assessment to determine whether or not the distal stump of the tibia even has enough healing potential to be successfully debrided if it is osteomyelitis. If that is the case that there is not enough vascular supply to this area, then a knee disarticulation or an above knee amputation would be indicated. Presently, I would continue with medical management with antibiotics as appropriately designated by internal medicine and care of her new onset atrial fibrillation. We will follow daily.ESR is normal bur CRP should be checked. MTDD
--- NOTE | 2017-08-18 14:31 | Progress Note ---
Medicine Progress Note Date & Time of Visit: Aug 18, 2017 at 14:20 . Subjective Pain left residual limb under better control. No fever or chills. Intermittent atrial fibrillation noted on cardiac monitoring. No chest pain or palpitations. No cough or SOB. No nausea, vomiting, diarrhea. No urinary symptoms. . Objective Last 8 Hrs Date Time Temp Pulse Resp B/P (MAP) Pulse Ox O2 Delivery O2 Flow Rate FiO2 08/18/17 12:00 Room Air 08/18/17 11:44 36.9 78 18 132/73 (92) 100 08/18/17 08:00 Room Air 08/18/17 07:51 37.1 74 18 106/62 (77) 97 Physical Exam: General- no distress Neck- no JVD Lungs- clear Heart- irregular, I/ systolic murmur at base, no gallop Abdomen- + BS, soft, nontender Extremities- left BKA with welling and tenderness distal residual limb; no erythema or drainage; no pretibial edema RLE Neuro- alert Skin- warm & dry . Laboratory Results: Last 24 Hours Test 08/18/17 05:39 08/18/17 14:20 White Blood Count 7.55 K/uL Red Blood Count 3.67 M/uL Hemoglobin 11.1 g/dL Hematocrit 35.1 % Mean Corpuscular Volume 95.6 fL Mean Corpuscular Hemoglobin 30.2 pg Mean Corpuscular Hemoglobin Concent 31.6 g/dl RDW Standard Deviation 52.8 fL RDW Coefficient of Variation 15.1 % Platelet Count 152 K/uL Mean Platelet Volume 11.5 fL Prothrombin Time 18.4 SECONDS Prothromb Time International Ratio 1.7 Sodium Level 135 mmol/L Potassium Level 4.6 mmol/L Chloride Level 102 mmol/L Carbon Dioxide Level 26 mmol/L Anion Gap 7.0 mmol/L Blood Urea Nitrogen 13 mg/dl Creatinine 1.02 mg/dl Est Creatinine Clear Calc Drug Dose 48.1 ml/min Estimated GFR () 70.7 Estimated GFR (Non- 61.0 BUN/Creatinine Ratio 12.9 Random Glucose 95 mg/dl Calcium Level 8.3 mg/dl Assessment & Plan PAROXYSMAL ATRIAL FIBRILLATION Ongoing PAF with rapid ventricular response. Consult Cardiology. Continue sotalol and warfarin. LLE PAIN Chronic pain since amputation, now worse. Concern about possible osteomyelitis left residual tibia per MRI, but no fever, leukocytosis. ESR normal. C-reactive protein normal. Ortho consulted; MRI findings may represent stress reaction rather than infection. Titrate analgesics. Continue gabapentin. Increased oxycodone IR. Added IV hydromorphone for severe pain. HYPERTENSION Hemodynamically stable. Continue amlodipine. VTE PROPHYLAXIS Warfarin. DISPOSITION To be determined. Family Medicine follow-up with Dr. Tai. . Current Inpatient Medications: Current Inpatient Medications Medications (Trade) Dose Ordered Sig/Rosa Route Start Time Stop Time Status Last Admin Dose Admin Sotalol HCl (Betapace Tab) 80 mg BID PO 08/16/17 09:00 09/15/17 08:59 08/18/17 08:16 80 MG Amlodipine Besylate (Norvasc Tab) 10 mg DAILY PO 08/16/17 09:00 09/15/17 08:59 08/18/17 08:19 10 MG Aspirin (Ecotrin Tab) 81 mg DAILY PO 08/16/17 09:00 09/15/17 08:59 08/18/17 08:19 81 MG Atorvastatin Calcium (Lipitor Tab) 80 mg HS PO 08/15/17 21:00 09/14/17 20:59 08/17/17 21:01 80 MG Bupropion HCl (Wellbutrin-Xl Tab) 150 mg DAILY PO 08/16/17 09:00 09/15/17 08:59 08/18/17 08:17 150 MG Clopidogrel Bisulfate (plAVix TAB) 75 mg DAILY PO 08/16/17 09:00 09/15/17 08:59 08/18/17 08:18 75 MG Fluoxetine HCl (Prozac Cap) 20 mg DAILY PO 08/16/17 09:00 09/15/17 08:59 08/18/17 08:17 20 MG Ondansetron HCl (Zofran Tab) 8 mg Q8 PRN PO 08/15/17 18:15 09/14/17 18:14 08/18/17 13:08 8 MG Pantoprazole Sodium (Protonix Tab) 40 mg DAILY PO 08/16/17 09:00 09/15/17 08:59 08/18/17 08:18 40 MG Zolpidem Tartrate (Ambien Tab) 5 mg HS PRN PO 08/15/17 18:15 09/14/17 18:14 08/17/17 21:03 5 MG Ranitidine HCl (zANTac TAB) 300 mg HS PO 08/15/17 21:00 09/14/17 20:59 08/17/17 21:03 300 MG Senna (Senokot Tab) 8.6 mg BID PO 08/15/17 21:00 09/14/17 20:59 08/17/17 08:08 8.6 MG Gabapentin (Neurontin Cap) 900 mg TID PO 08/16/17 09:00 09/15/17 08:59 08/18/17 13:39 900 MG Warfarin Sodium (Coumadin Tab) 7.5 mg DAILY@1600 PO 08/16/17 16:00 09/17/17 15:59 08/17/17 15:28 7.5 MG Enoxaparin Sodium (Lovenox Inj) 40 mg QAM SQ 08/17/17 09:00 09/16/17 08:59 Gadobutrol (Gadavist) 5.5 mmol UD PRN IV 08/16/17 22:45 08/20/17 22:44 Vancomycin HCl (Consult) 1 ea UD PRN N/A 08/16/17 23:45 09/15/17 23:44 Future hold Levofloxacin 750 mg/Prmx 150 ml @ 100 mls/hr Q24H IV 08/17/17 00:00 09/28/17 00:00 08/18/17 00:10 100 MLS/HR Vancomycin HCl 1000 mg/Sodium Chloride 270 ml @ 125 mls/hr Q12H IV 08/17/17 18:00 09/28/17 17:59 Future Hold 08/18/17 06:08 125 MLS/HR Hydromorphone HCl (Dilaudid Inj) 1 mg Q3H PRN IV 08/17/17 10:15 08/31/17 10:14 08/18/17 12:15 1 MG Oxycodone HCl (Roxicodone Immediate Rel Tab) 20 mg Q6H PRN PO 08/17/17 10:15 08/31/17 10:14 08/18/17 14:28 20 MG
--- NOTE | 2017-08-18 15:30 | Infectious Disease Progress Nt ---
Progress Note Date of Service Aug 18, 2017. Subjective Pt evaluation today including: conversation w/ patient, physical exam, chart review, lab review, review of studies, conversation w/ outside solar sales consultant, review of inpatient medication list Orthopedic and vascular surgery consultations reviewed. No intervention planned at present time. Pain about the same. No fever. White count remains normal. Liver function normal of so far. All Other Systems: Reviewed and Negative Medications Current Inpatient Medications Medications (Trade) Dose Ordered Sig/Rosa Route Start Time Stop Time Status Last Admin Dose Admin Sotalol HCl (Betapace Tab) 80 mg BID PO 08/16/17 09:00 09/15/17 08:59 08/18/17 08:16 80 MG Amlodipine Besylate (Norvasc Tab) 10 mg DAILY PO 08/16/17 09:00 09/15/17 08:59 08/18/17 08:19 10 MG Aspirin (Ecotrin Tab) 81 mg DAILY PO 08/16/17 09:00 09/15/17 08:59 08/18/17 08:19 81 MG Atorvastatin Calcium (Lipitor Tab) 80 mg HS PO 08/15/17 21:00 09/14/17 20:59 08/17/17 21:01 80 MG Bupropion HCl (Wellbutrin-Xl Tab) 150 mg DAILY PO 08/16/17 09:00 09/15/17 08:59 08/18/17 08:17 150 MG Clopidogrel Bisulfate (plAVix TAB) 75 mg DAILY PO 08/16/17 09:00 09/15/17 08:59 08/18/17 08:18 75 MG Fluoxetine HCl (Prozac Cap) 20 mg DAILY PO 08/16/17 09:00 09/15/17 08:59 08/18/17 08:17 20 MG Ondansetron HCl (Zofran Tab) 8 mg Q8 PRN PO 08/15/17 18:15 09/14/17 18:14 08/18/17 13:08 8 MG Pantoprazole Sodium (Protonix Tab) 40 mg DAILY PO 08/16/17 09:00 09/15/17 08:59 08/18/17 08:18 40 MG Zolpidem Tartrate (Ambien Tab) 5 mg HS PRN PO 08/15/17 18:15 09/14/17 18:14 08/17/17 21:03 5 MG Ranitidine HCl (zANTac TAB) 300 mg HS PO 08/15/17 21:00 09/14/17 20:59 08/17/17 21:03 300 MG Senna (Senokot Tab) 8.6 mg BID PO 08/15/17 21:00 09/14/17 20:59 08/17/17 08:08 8.6 MG Gabapentin (Neurontin Cap) 900 mg TID PO 08/16/17 09:00 09/15/17 08:59 08/18/17 13:39 900 MG Warfarin Sodium (Coumadin Tab) 7.5 mg DAILY@1600 PO 08/16/17 16:00 09/17/17 15:59 08/17/17 15:28 7.5 MG Enoxaparin Sodium (Lovenox Inj) 40 mg QAM SQ 08/17/17 09:00 09/16/17 08:59 Gadobutrol (Gadavist) 5.5 mmol UD PRN IV 08/16/17 22:45 08/20/17 22:44 Vancomycin HCl (Consult) 1 ea UD PRN N/A 08/16/17 23:45 09/15/17 23:44 Future hold Levofloxacin 750 mg/Prmx 150 ml @ 100 mls/hr Q24H IV 08/17/17 00:00 09/28/17 00:00 08/18/17 00:10 100 MLS/HR Vancomycin HCl 1000 mg/Sodium Chloride 270 ml @ 125 mls/hr Q12H IV 08/17/17 18:00 09/28/17 17:59 Future Hold 08/18/17 06:08 125 MLS/HR Hydromorphone HCl (Dilaudid Inj) 1 mg Q3H PRN IV 08/17/17 10:15 08/31/17 10:14 08/18/17 12:15 1 MG Oxycodone HCl (Roxicodone Immediate Rel Tab) 20 mg Q6H PRN PO 08/17/17 10:15 08/31/17 10:14 08/18/17 14:28 20 MG Objective Vital Signs Date Time Temp Pulse Resp B/P (MAP) Pulse Ox O2 Delivery O2 Flow Rate FiO2 08/18/17 12:00 Room Air 08/18/17 11:44 36.9 78 18 132/73 (92) 100 08/18/17 08:00 Room Air 08/18/17 07:51 37.1 74 18 106/62 (77) 97 08/18/17 04:00 Room Air 08/18/17 03:42 36.8 69 20 106/65 (79) 96 Room Air 08/18/17 00:06 36.6 140 20 107/93 (98) 95 Room Air 08/17/17 23:59 Room Air 08/17/17 20:00 94 Room Air 08/17/17 19:23 36.6 65 18 105/67 (80) 94 Room Air 08/17/17 16:00 96 Room Air 08/17/17 15:45 36.6 61 18 103/72 (82) 96 Room Air Physical Exam General Appearance: WD/WN, no apparent distress Eyes: normal inspection, EOMI, sclerae normal ENT: normal ENT inspection, pharynx normal Neck: supple, no adenopathy, trachea midline Respiratory/Chest: chest non-tender, lungs clear, normal breath sounds, no respiratory distress Cardiovascular: no gallop, no murmur, + irregularly irregular Abdomen: normal bowel sounds, non tender, soft, no organomegaly Extremities: non-tender, no calf tenderness, + pertinent finding (Tenderness lateral BKA stump) Neurologic/Psychiatric: alert, oriented x 3 Skin: normal color, no rash Lymphatic: no adenopathy Laboratory Results Last 24 Hours Test 08/18/17 05:39 08/18/17 14:20 White Blood Count 7.55 K/uL Red Blood Count 3.67 M/uL Hemoglobin 11.1 g/dL Hematocrit 35.1 % Mean Corpuscular Volume 95.6 fL Mean Corpuscular Hemoglobin 30.2 pg Mean Corpuscular Hemoglobin Concent 31.6 g/dl RDW Standard Deviation 52.8 fL RDW Coefficient of Variation 15.1 % Platelet Count 152 K/uL Mean Platelet Volume 11.5 fL Prothrombin Time 18.4 SECONDS Prothromb Time International Ratio 1.7 Sodium Level 135 mmol/L Potassium Level 4.6 mmol/L Chloride Level 102 mmol/L Carbon Dioxide Level 26 mmol/L Anion Gap 7.0 mmol/L Blood Urea Nitrogen 13 mg/dl Creatinine 1.02 mg/dl Est Creatinine Clear Calc Drug Dose 48.1 ml/min Estimated GFR () 70.7 Estimated GFR (Non- 61.0 BUN/Creatinine Ratio 12.9 Random Glucose 95 mg/dl Calcium Level 8.3 mg/dl C-Reactive Protein 0.96 mg/dl Assessment and Plan 57-year-old female status post left BKA now with return of severe pain localized to the lateral stump area without obvious fluctuance or significant erythema. MRI suggestive of persistent infection at distal BKA site, the changes may be a non infectious basis as well. Patient to continue on antibiotics with close monitoring of clinical response and inflammatory markers.
[2017-08-18 15:45] VITALS: BP 125/78; PULSE 71; TEMP 37.1; O2SAT 96
[2017-08-18] MEDS: WARFARIN SOD 7.5 MG TAB PO SCH (15:55)
[2017-08-18] MEDS ORDERED: WARFARIN SOD 7.5 MG TAB PO SCH (16:00)
--- NOTE | 2017-08-18 17:22 | CARDIOLOGY CONSULTATION ---
DATE OF CONSULTATION: 08/18/2017 CONSULTATION FOR: [facility]. REASON FOR CONSULTATION: Paroxysmal atrial fibrillation. HISTORY OF PRESENT ILLNESS: This is a 57-year-old female who I saw earlier this year while she was in the hospital for cardiac clearance regarding surgery for trimalleolar fracture that she sustained as an outpatient. She has severe peripheral vascular disease, which complicated her fracture. She developed a postoperative infection that really never healed even after the hardware was taken out. She had multiple hospital admissions and transfers to [facility] as well as along with multiple surgeries. She was on long-term antibiotics and developed hepatitis and liver failure from Augmentin. I originally saw her because she has a history of paroxysmal atrial arrhythmias. She is followed by Dr. Kinsey through our clinic. Eventually, patient required a left BKA due to her infection and poor circulation due to her peripheral vascular disease. She had been convalescing at home and then on the day of admission she had severe pain in her left stump. She thought that she was perhaps developing another infection and came in to the Emergency Department. While in the hospital, she has been on telemetry unit and it has been noted that she has had runs of asymptomatic paroxysmal atrial fibrillation. She has no other cardiac complaints today. ALLERGIES: ACETAMINOPHEN, ADHESIVES, AMOXICILLIN, ACID, GUANFACINE, NIFEDIPINE. PAST MEDICAL HISTORY: As per the history of chief complaint. She has a history of peripheral vascular disease, most likely on the basis of cigarette smoking. She is treated for dyslipidemia and hypertension. She has a longstanding history of paroxysmal atrial fibrillation which has been treated at home with sotalol 80 mg twice daily and warfarin. FAMILY MEDICAL HISTORY: Noncontributory. SOCIAL HISTORY: She is , lives with her . She is currently an everyday smoker. REVIEW OF SYSTEMS: A 10-point review of systems is negative except for the history of chief complaint. PHYSICAL EXAMINATION: GENERAL: She is alert and oriented. VITAL SIGNS: Blood pressure is 120/80, pulse is regular at 80 beats per minute. She is afebrile. HEENT: She is normocephalic. Pupils are equal and reactive to light. Extraocular muscles are intact bilaterally. NECK: The neck veins are flat. Carotids have good upstrokes bilaterally without bruits. Thyroid is nonpalpable. RESPIRATORY: Breath sounds equal bilaterally and clear to auscultation. CARDIOVASCULAR: Heart has a regular rhythm. Normal S1, S2. No S3, S4. No cardiac rubs or murmurs. GASTROINTESTINAL: Abdomen is soft, nontender without organomegaly. EXTREMITIES: Free of edema. She has a left BKA. NEUROLOGIC: Grossly intact. SKIN: Warm to touch. LYMPH NODES: Negative to palpation. LABORATORY DATA: Creatinine is 0.6 with a GFR of 100. IMPRESSION: 1. Asymptomatic paroxysmal atrial fibrillation. 2. Peripheral vascular disease. 3. Status post below knee amputation due to wound infection from a trimalleolar fracture and peripheral vascular disease. RECOMMENDATIONS: The patient is currently in sinus rhythm on the monitor. Although she is asymptomatic with her paroxysmal atrial arrhythmias, I think we have the option of increasing her sotalol to 120 mg twice daily. She has normal renal function, so this should not be a problem. If this does not help with the atrial arrhythmias, a second option would be to continue her with just rate control and anticoagulation. We will see how the increase in sotalol does and we will have further recommendations following the above. MTDD
[2017-08-18] MEDS ORDERED: VANCOMYCIN TROUGH SCH (17:30)
[2017-08-18] MEDS ORDERED: VANCOMYCIN INJ 1,000 MG in SODIUM CHLORIDE 0.9% 250ML 250 ML IV SCH (19:30)
--- NOTE | 2017-08-18 19:34 | Pharmacy Progress Note ---
Pharmacy Abx Dose Short Note Date of Service Aug 18, 2017. Assessment & Plan Pt's lvl came back slightly subtherapeutic at 14.5mcg/mL for Osteomyelitis. Looks like pt may experiencing TARIQ. Despite renal fxn decline Vanco trough still low. Will continue current regimen for now. Trough ordered for 08/20/17 @ 0530. Pharmacy will continue to follow and will adjust dose/frequency as necessary. Thank you.
[2017-08-18 20:02] VITALS: BP 99/55; PULSE 71; TEMP 36.7; O2SAT 94
[2017-08-18] MEDS: ATORVASTATIN 40 MG TAB PO SCH (20:58)
[2017-08-18] MEDS: RANITIDINE HCL 150 MG TAB PO SCH (20:58)
[2017-08-18] MEDS: ZOLPIDEM TARTRATE 5 MG TAB PO PRN (20:58)
[2017-08-19] VITALS (7 sets, daily range): BP systolic 98–119; BP diastolic 55–94; PULSE 69–94; TEMP 36.6–37; O2SAT 90–97
[2017-08-19] MEDS: HYDROmorphone INJ 1 MG/ML SYR IV PRN ×4 (01:06→17:14)
[2017-08-19] MEDS: OXYCODONE HCL IR 5 MG TAB (IMMEDIATE RELEASE) PO PRN ×3 (04:31→20:52)
[2017-08-19] MEDS ORDERED: VANCOMYCIN TROUGH SCH (05:30)
[2017-08-19 06:48] LABS: BUN/CREATININE RATIO 13.2 (10-20); CALCIUM 8.4 mg/dl (8.5-10.1); CREATININE 0.68 mg/dl (0.60-1.20); POTASSIUM 4.2 mmol/L (3.5-5.1)
[2017-08-19] MEDS: ENOXAPARIN 40 MG/0.4 ML SYR SQ SCH (07:31)
[2017-08-19] MEDS: SENNA 8.6 MG TAB PO SCH ×2 (07:31→20:58)
[2017-08-19] MEDS: PANTOprazole SOD 40 MG TAB PO SCH (07:33)
[2017-08-19] MEDS: GABAPENTIN 300 MG CAP PO SCH ×3 (07:33→20:55)
[2017-08-19] MEDS: AMLODIPINE BESYLATE 5 MG TAB PO SCH (07:34)
[2017-08-19] MEDS: CLOPIDOGREL BISULFATE 75 MG TAB PO SCH (07:34)
[2017-08-19] MEDS: ASPIRIN 81 MG ECTAB PO SCH (07:34)
[2017-08-19] MEDS: SOTALOL HCL 80 MG TAB PO SCH ×2 (07:34→20:56)
[2017-08-19] MEDS: FLUOXETINE HCL 20 MG CAP PO SCH (07:35)
[2017-08-19] MEDS: BuPROPion XL 150 MG TABCR PO SCH (07:35)
--- NOTE | 2017-08-19 08:31 | PROGRESS NOTE ---
DATE: 08/19/2017 SUBJECTIVE: The patient is sitting up in bed comfortably, had breakfast. She denies any chest pain, shortness of breath, fever, chills, nausea, vomiting or headache. She notes that her stump does not feel any different. She describes in detail more today more neuropathic pain than anything. Vital signs are stable. She remains afebrile. Her pulse is now in the 70s. Laboratory work from yesterday reveals a CRP less than 1, a sed rate of 12. White count is normal. Detailed examination of the stump today reveals some minor posteromedial healing area with some minor redness around it that was recently from an area that was irritated by the prosthesis. She has significant Tinel's findings both medially and laterally with tapping starting proximal to distal. This is neuropathic and based on transected nerve structures. There is no fluid collection. There is no increased warmth. She has full knee range of motion. ASSESSMENT: 1. Recent amputee with painful stump likely based on multiple reasons including neuropathic pain from transected nerves. 2. Potential stress reaction from short stump and poor prosthetic fit. 3. In the differential, question of infection with secondary osteomyelitis. At this point in time, due to the fact that her inflammatory markers and her clinical findings for infection are low index of suspicion, the MRI findings may be interpreted as a stress reaction, particularly with lesions noted both distally and proximally, distally at the distal end of the tibia and proximally at the patellar tendon attachment indicating significant pressure.In addition plain x-rays are without signs of infection. Due to the fact that she has such a short distal segment, there is a lot of pressure applied to that area from the prosthesis. She has an appointment with her surgeon in [place] this Wednesday. I have already talked to him on the phone and suggest that she keep that appointment for him to assess and to give his thoughts. If anything changes, obviously things could be done here acutely. At present, it is appropriate to observe. Additionally, if things change in the future and she needs other additional things done, She can transfer her care to us here at [facility] in [place]. At this point in time, will sign off the case unless there are other developments that become active. Await further information from her followup in [place]. CHRIS
--- NOTE | 2017-08-19 12:30 | Cardiology Follow-Up ---
Subjective Subjective Date of Service: Aug 19, 2017. Pt evaluation today including: conversation w/ patient, conversation w/ family , physical exam, chart review, lab review, review of studies, review of inpatient medication list Additional Details: Pt seen and examined, with family at bedside. States that she is feeling well except for some continued stump pain. Denies cp, sob, palpitations, lightheadedness or dizziness. Tele reviewed: sinus rhythm without arrhythmia or significant ectopy. EKG: sinus rhythm with QTc of 426 ms Problem List Medical Problems: (1) Acute liver failure Status: Acute (2) Cellulitis Status: Acute (3) Contusion of ankle, left Status: Acute (4) Lower extremity edema Status: Acute (5) Rapid atrial fibrillation Status: Acute (6) Trimalleolar fracture of ankle, closed Status: Acute Review of Systems Respiratory: No see HPI, No cough, No sputum, No wheezing, No shortness of breath, No dyspnea on exertion, No dyspnea at rest, No hemoptysis, No problem reported Cardiac: No see HPI, No chest pain, No orthopnea, No PND, No edema, No claudication, No palpitations, No problem reported Musculoskeletal: + joint pain Objective Vital Signs Last Vital Signs Documentation Date Time Temp Pulse Resp B/P (MAP) Pulse Ox O2 Delivery O2 Flow Rate FiO2 08/19/17 12:04 36.8 69 20 118/94 (102) 97 Room Air Physical Exam: General Appearance: WD/WN, no apparent distress Eyes: bilateral eyes normal inspection, bilateral eyes PERRL, bilateral eyes EOMI ENT: normal ENT inspection, hearing grossly normal, pharynx normal Neck: supple, no adenopathy, thyroid normal, no JVD, no carotid bruits, trachea midline Respiratory/Chest: chest non-tender, lungs clear, normal breath sounds, no respiratory distress Cardiovascular: regular rate, rhythm, no edema, no JVD, no murmur, + gallop/S4 Abdomen: normal bowel sounds, non tender, soft, no organomegaly Extremities: non-tender, no calf tenderness, + pertinent finding (Tenderness lateral BKA stump) Neurologic/Psychiatric: fbi profiler II-XII nml as tested, no motor/sensory deficits, alert, normal mood/affect, oriented x 3 Skin: normal color, warm/dry, no rash Lymphatic: no adenopathy Assessment and Plan 1. PAF stable has remained in sinus has now received 2 doses of Sotalol at 120mg QTc stable no ventricular arrhythmias will cont to monitor for a total of 6 doses at higher dosage cont warfarin with goal INR of 2-3, 1.7 today
[2017-08-19 15:33] LABS: INR 1.5 (0.9-1.1); PROTHROMBIN TIME (PATIENT) 16.4 SECONDS (9.0-12.0)
[2017-08-19] MEDS ORDERED: WARFARIN SOD 10 MG TAB PO ONE (16:00)
--- NOTE | 2017-08-19 20:24 | Progress Note ---
Medicine Progress Note Date & Time of Visit: Aug 19, 2017 at ~ 15:00 . Subjective Intermittent pain left residual limb; oxycodone offers relief. No fever, chills, sweats. No chest pain. No cough or shortness of breath. No nausea, vomiting, diarrhea. . Objective Last 8 Hrs Date Time Temp Pulse Resp B/P (MAP) Pulse Ox O2 Delivery O2 Flow Rate FiO2 08/19/17 18:52 36.8 94 18 106/62 (77) 92 Room Air 08/19/17 16:00 Room Air 08/19/17 15:26 36.7 70 18 119/74 (89) 97 Room Air Physical Exam: General- no distress Neck- no JVD Lungs- clear Heart- RRR, I/ systolic murmur at base, no gallop Abdomen- + BS, soft, nontender Extremities- left BKA with swelling and tenderness distal residual limb; no erythema or drainage; no pretibial edema or calf tenderness RLE Neuro- alert Skin- warm & dry . Laboratory Results: Last 24 Hours Test 08/19/17 05:49 Prothrombin Time 16.4 SECONDS Prothromb Time International Ratio 1.5 Sodium Level 137 mmol/L Potassium Level 4.2 mmol/L Chloride Level 103 mmol/L Carbon Dioxide Level 27 mmol/L Anion Gap 7.0 mmol/L Blood Urea Nitrogen 9 mg/dl Creatinine 0.68 mg/dl Est Creatinine Clear Calc Drug Dose 81.0 ml/min Estimated GFR () 112.5 Estimated GFR (Non- 97.1 BUN/Creatinine Ratio 13.2 Random Glucose 93 mg/dl Calcium Level 8.4 mg/dl Assessment & Plan PAROXYSMAL ATRIAL FIBRILLATION PAF with rapid ventricular response. Consulted Cardiology. Sotalol dose to 120 mg twice a day. Continue cardiac monitoring for 72 hours after increased dose. Continue warfarin. LLE PAIN S/P BKA; presented with worsening pain left residual limb. Concerns about possible osteomyelitis left residual tibia per MRI, but no fever , leukocytosis. ESR normal. C-reactive protein normal. Ortho consulted; MRI findings may represent stress reaction rather than infection. Antibiotics discontinued. Monitor for fever or other signs/symptoms of infection. Titrate analgesics. Continue gabapentin. Increased oxycodone IR. Added IV hydromorphone for severe pain. HYPERTENSION Hemodynamically stable. Continue amlodipine. VTE PROPHYLAXIS Warfarin. DISPOSITION Expected discharge to home. Family Medicine follow-up with Dr. Tai. Orthopedics follow-up at [facility]. . Current Inpatient Medications: Current Inpatient Medications Medications (Trade) Dose Ordered Sig/Rosa Route Start Time Stop Time Status Last Admin Dose Admin Amlodipine Besylate (Norvasc Tab) 10 mg DAILY PO 08/16/17 09:00 09/15/17 08:59 08/19/17 07:34 10 MG Aspirin (Ecotrin Tab) 81 mg DAILY PO 08/16/17 09:00 09/15/17 08:59 08/19/17 07:34 81 MG Atorvastatin Calcium (Lipitor Tab) 80 mg HS PO 08/15/17 21:00 09/14/17 20:59 08/18/17 20:58 80 MG Bupropion HCl (Wellbutrin-Xl Tab) 150 mg DAILY PO 08/16/17 09:00 09/15/17 08:59 08/19/17 07:35 150 MG Clopidogrel Bisulfate (plAVix TAB) 75 mg DAILY PO 08/16/17 09:00 09/15/17 08:59 08/19/17 07:34 75 MG Fluoxetine HCl (Prozac Cap) 20 mg DAILY PO 08/16/17 09:00 09/15/17 08:59 08/19/17 07:35 20 MG Ondansetron HCl (Zofran Tab) 8 mg Q8 PRN PO 08/15/17 18:15 09/14/17 18:14 08/18/17 13:08 8 MG Pantoprazole Sodium (Protonix Tab) 40 mg DAILY PO 08/16/17 09:00 09/15/17 08:59 08/19/17 07:33 40 MG Zolpidem Tartrate (Ambien Tab) 5 mg HS PRN PO 08/15/17 18:15 09/14/17 18:14 08/18/17 20:58 5 MG Ranitidine HCl (zANTac TAB) 300 mg HS PO 08/15/17 21:00 09/14/17 20:59 08/18/17 20:58 300 MG Senna (Senokot Tab) 8.6 mg BID PO 08/15/17 21:00 09/14/17 20:59 08/17/17 08:08 8.6 MG Gabapentin (Neurontin Cap) 900 mg TID PO 08/16/17 09:00 09/15/17 08:59 08/19/17 13:44 900 MG Enoxaparin Sodium (Lovenox Inj) 40 mg QAM SQ 08/17/17 09:00 09/16/17 08:59 Gadobutrol (Gadavist) 5.5 mmol UD PRN IV 08/16/17 22:45 08/20/17 22:44 Hydromorphone HCl (Dilaudid Inj) 1 mg Q3H PRN IV 08/17/17 10:15 08/31/17 10:14 08/19/17 17:14 1 MG Oxycodone HCl (Roxicodone Immediate Rel Tab) 20 mg Q6H PRN PO 08/17/17 10:15 08/31/17 10:14 08/19/17 12:32 20 MG Sotalol HCl (Betapace Tab) 120 mg BID PO 08/18/17 21:00 09/15/17 08:59 08/19/17 07:34 120 MG
[2017-08-19] MEDS: ZOLPIDEM TARTRATE 5 MG TAB PO PRN (20:53)
[2017-08-19] MEDS: RANITIDINE HCL 150 MG TAB PO SCH (20:53)
[2017-08-19] MEDS: ATORVASTATIN 40 MG TAB PO SCH (20:55)
[2017-08-20] MEDS: HYDROmorphone INJ 1 MG/ML SYR IV PRN ×5 (01:33→22:36)
[2017-08-20 04:06] VITALS: BP 115/60; PULSE 75; TEMP 36.7; O2SAT 96
[2017-08-20] MEDS ORDERED: VANCOMYCIN TROUGH ONE (05:30)
[2017-08-20 07:00] LABS: INR 1.3 (0.9-1.1); PROTHROMBIN TIME (PATIENT) 14.1 SECONDS (9.0-12.0)
[2017-08-20] MEDS: OXYCODONE HCL IR 5 MG TAB (IMMEDIATE RELEASE) PO PRN ×3 (07:02→20:10)
[2017-08-20] MEDS: SENNA 8.6 MG TAB PO SCH ×3 (08:21→20:38)
[2017-08-20] MEDS: BuPROPion XL 150 MG TABCR PO SCH (08:21)
[2017-08-20] MEDS: FLUOXETINE HCL 20 MG CAP PO SCH (08:21)
[2017-08-20] MEDS: CLOPIDOGREL BISULFATE 75 MG TAB PO SCH (08:22)
[2017-08-20] MEDS: ASPIRIN 81 MG ECTAB PO SCH (08:22)
[2017-08-20] MEDS: AMLODIPINE BESYLATE 5 MG TAB PO SCH (08:22)
[2017-08-20] MEDS: GABAPENTIN 300 MG CAP PO SCH ×3 (08:22→20:38)
[2017-08-20] MEDS: PANTOprazole SOD 40 MG TAB PO SCH (08:22)
[2017-08-20] MEDS: ENOXAPARIN 40 MG/0.4 ML SYR SQ SCH (08:23)
[2017-08-20 08:24] VITALS: BP 112/66; PULSE 73; TEMP 37.1; O2SAT 95
[2017-08-20] MEDS ORDERED: ENOXAPARIN 40 MG/0.4 ML SYR SQ ONE (08:42)
[2017-08-20] MEDS ORDERED: METOPROLOL TARTRATE 1 MG/ML VIAL IV PRN (09:00)
[2017-08-20] MEDS ORDERED: ENOXAPARIN 40 MG/0.4 ML SYR SQ SCH (09:00)
[2017-08-20] MEDS ORDERED: ALUMINUM/MAGNESIUM SUSP 30 ML UDC ONE (09:02)
--- NOTE | 2017-08-20 09:15 | PROGRESS NOTE ---
DATE: 08/20/2017 FOLLOWUP VISIT SUBJECTIVE: This is a 57-year-old female with a history of peripheral vascular disease and previous cigarette smoking who had a trimalleolar fracture earlier this year that required open fixation. Unfortunately, the patient's fracture never healed and there were wound infections involved, most likely related to the patient's peripheral vascular disease contributing. 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 The patient was admitted with stump pain. There is concern that the patient has recurrence of osteomyelitis. She has no clinical signs. No fever or white count elevation. Her MRI scan of the stump originally was read as having osteomyelitis, but appears to have and addendum that now suggests it may be due to inflammatory processes. The patient is scheduled to go to [facility] next week for an outpatient evaluation. She has a history of paroxysmal atrial arrhythmias. At admission she was having runs of atrial fibrillation. I increased her sotalol several days ago and unfortunately she continues to have runs of A-Fib as well as atrial flutter. The atrial arrhythmias are asymptomatic. OBJECTIVE: GENERAL: She is alert and oriented in no acute distress. VITAL SIGNS: Blood is 115/70, pulse is 70 beats per minute and she is in a sinus rhythm. She is afebrile. HEENT: She is normocephalic. Pupils are equal and reactive to light. Mucous membranes are moist. NECK: The neck veins are flat. Carotids have good upstrokes bilaterally without bruits. Thyroid is nonpalpable. RESPIRATORY: Breath sounds equal bilaterally and clear to auscultation. CARDIOVASCULAR: Heart has a regular rhythm. Normal S1, S2. No S3, S4. No cardiac rubs or murmurs. GASTROINTESTINAL: Abdomen is soft, nontender without organomegaly. EXTREMITIES: Free of edema, digital clubbing, or cyanosis. NEUROLOGIC: Grossly intact. SKIN: Warm to touch. LYMPH NODES: Negative to palpation. IMPRESSION: 1. Paroxysmal atrial arrhythmias. 2. Peripheral vascular disease. 3. Status post left below the knee amputation. RECOMMENDATIONS: I think the patient has failed sotalol treatment and I am going to switch her to amiodarone. I will stop her sotalol today and allow it to wash out for 36 hours, which would mean starting the amiodarone tomorrow morning at 400 mg t.i.d. I have written for a p.r.n. dose of metoprolol in case she develops atrial fibrillation with RVR. She is having her warfarin adjusted by the hospitalist service.
[2017-08-20] MEDS ORDERED: NURSING VERBAL MED ORDER ONE (09:45)
[2017-08-20 12:10] VITALS: BP 119/63; PULSE 72; TEMP 36.3; O2SAT 95
[2017-08-20 15:41] VITALS: BP 106/68; PULSE 92; TEMP 36.7; O2SAT 92
[2017-08-20] MEDS: ALUMINUM/MAGNESIUM SUSP 30 ML UDC PO PRN ×2 (15:45→22:35)
[2017-08-20] MEDS: WARFARIN SOD 10 MG TAB PO SCH (15:48)
--- NOTE | 2017-08-20 18:30 | Progress Note ---
Medicine Progress Note Date & Time of Visit: Aug 20, 2017 at 10:40 . Subjective Paroxysmal atrial fibrillation/flutter. Experiencing mid / lower abdominal pain that started early this morning. No nausea, vomiting, diarrhea. Experiencing urinary frequency without dysuria. No fever. Intermittent pain left residual stump. No cough or shortness of breath. No chest pain. . Objective Last 8 Hrs Date Time Temp Pulse Resp B/P (MAP) Pulse Ox O2 Delivery O2 Flow Rate FiO2 08/20/17 15:41 36.7 92 18 106/68 (81) 92 Room Air 08/20/17 15:40 Room Air 08/20/17 12:10 36.3 72 16 119/63 (81) 95 08/20/17 12:00 Room Air Physical Exam: General- no distress Neck- no JVD Lungs- clear Heart- irregular, I/ systolic murmur at base, no gallop Abdomen- + BS, nondistended, soft, nontender Extremities- left BKA with swelling and tenderness distal residual limb; no erythema or drainage; no pretibial edema or calf tenderness RLE Neuro- alert Skin- warm & dry . Laboratory Results: Last 24 Hours Test 08/20/17 06:25 Prothrombin Time 14.1 SECONDS Prothromb Time International Ratio 1.3 Assessment & Plan PAROXYSMAL ATRIAL FIBRILLATION / FLUTTER PAF with rapid ventricular response. Consulted Cardiology. Sotalol dose increased to 120 mg twice a day, but patient continued to have paroxysmal atrial fibrillation/flutter. Antiarrhythmic therapy with amiodarone being initiated. Continue cardiac monitoring. Continue warfarin, titrate dose. LLE PAIN S/P BKA; presented with worsening pain left residual limb. Concerns about possible osteomyelitis left residual tibia per MRI, but no fever , leukocytosis. ESR normal. C-reactive protein normal. Ortho consulted; MRI findings may represent stress reaction rather than infection. Antibiotics discontinued. Monitor for fever or other signs/symptoms of infection. Titrate analgesics. Continue gabapentin. Increased oxycodone IR. Added IV hydromorphone for severe pain. HYPERTENSION Hemodynamically stable. Continue amlodipine. ABDOMINAL PAIN Exam benign. No nausea, vomiting, diarrhea. Postvoid bladder scan ~ 200 ml. Pain improved after straight cath. May need further evaluation if pain worsens. URINARY RETENTION Postvoid bladder scan ~ 200 ml. Narcotic analgesics may be contributing to urinary retention. Straight cath PRN. Follow. VTE PROPHYLAXIS On warfarin, but INR low. SQ enoxaparin until warfarin therapeutic. DISPOSITION Expected discharge to home. Family Medicine follow-up with Dr. Tai. Orthopedics follow-up at [facility]. . Current Inpatient Medications: Current Inpatient Medications Medications (Trade) Dose Ordered Sig/[facility] Route Start Time Stop Time Status Last Admin Dose Admin Amlodipine Besylate (Norvasc Tab) 10 mg DAILY PO 08/16/17 09:00 09/15/17 08:59 08/20/17 08:22 10 MG Aspirin (Ecotrin Tab) 81 mg DAILY PO 08/16/17 09:00 09/15/17 08:59 08/20/17 08:22 81 MG Atorvastatin Calcium (Lipitor Tab) 80 mg HS PO 08/15/17 21:00 09/14/17 20:59 08/19/17 20:55 80 MG Bupropion HCl (Wellbutrin-Xl Tab) 150 mg DAILY PO 08/16/17 09:00 09/15/17 08:59 08/20/17 08:21 150 MG Clopidogrel Bisulfate (plAVix TAB) 75 mg DAILY PO 08/16/17 09:00 09/15/17 08:59 08/20/17 08:22 75 MG Fluoxetine HCl (Prozac Cap) 20 mg DAILY PO 08/16/17 09:00 09/15/17 08:59 08/20/17 08:21 20 MG Ondansetron HCl (Zofran Tab) 8 mg Q8 PRN PO 08/15/17 18:15 09/14/17 18:14 08/18/17 13:08 8 MG Pantoprazole Sodium (Protonix Tab) 40 mg DAILY PO 08/16/17 09:00 09/15/17 08:59 08/20/17 08:22 40 MG Zolpidem Tartrate (Ambien Tab) 5 mg HS PRN PO 08/15/17 18:15 09/14/17 18:14 08/19/17 20:53 5 MG Ranitidine HCl (zANTac TAB) 300 mg HS PO 08/15/17 21:00 09/14/17 20:59 08/19/17 20:53 300 MG Senna (Senokot Tab) 8.6 mg BID PO 08/15/17 21:00 09/14/17 20:59 08/17/17 08:08 8.6 MG Gabapentin (Neurontin Cap) 900 mg TID PO 08/16/17 09:00 09/15/17 08:59 08/20/17 13:50 900 MG Enoxaparin Sodium (Lovenox Inj) 40 mg QAM SQ 08/17/17 09:00 09/16/17 08:59 08/20/17 08:23 40 MG Gadobutrol (Gadavist) 5.5 mmol UD PRN IV 08/16/17 22:45 08/20/17 22:44 Hydromorphone HCl (Dilaudid Inj) 1 mg Q3H PRN IV 08/17/17 10:15 08/31/17 10:14 08/20/17 17:23 1 MG Oxycodone HCl (Roxicodone Immediate Rel Tab) 20 mg Q6H PRN PO 08/17/17 10:15 08/31/17 10:14 08/20/17 13:51 20 MG Warfarin Sodium (Coumadin Tab) 10 mg DAILY@16 PO 08/20/17 16:00 09/19/17 15:59 08/20/17 15:48 10 MG Amiodarone HCl (Cordarone Tab) 400 mg TIDM PO 08/21/17 07:30 09/20/17 07:29 Metoprolol Tartrate (Lopressor Iv) 5 mg Q4 PRN IV 08/20/17 09:00 09/19/17 08:59 Al Hydroxide/Mg Hydroxide (Maalox Susp) 30 ml Q6H PRN PO 08/20/17 09:00 09/19/17 08:59 08/20/17 15:45 30 ML
[2017-08-20 19:33] VITALS: BP 106/64; PULSE 69; TEMP 36.6; O2SAT 95
[2017-08-20] MEDS: ONDANSETRON 8 MG TAB PO PRN (20:38)
[2017-08-20] MEDS: ATORVASTATIN 40 MG TAB PO SCH (20:38)
[2017-08-20] MEDS: RANITIDINE HCL 150 MG TAB PO SCH (20:38)
[2017-08-21] VITALS (10 sets, daily range): BP systolic 91–134; BP diastolic 54–94; PULSE 67–80; TEMP 36.6–36.9; O2SAT 93–98
[2017-08-21] MEDS: ZOLPIDEM TARTRATE 5 MG TAB PO PRN ×2 (00:06→21:45)
[2017-08-21] MEDS: OXYCODONE HCL IR 5 MG TAB (IMMEDIATE RELEASE) PO PRN ×3 (04:22→17:36)
[2017-08-21] MEDS: ALUMINUM/MAGNESIUM SUSP 30 ML UDC PO PRN (06:44)
[2017-08-21] MEDS: HYDROmorphone INJ 1 MG/ML SYR IV PRN ×3 (06:44→21:46)
[2017-08-21 07:01] LABS: HEMATOCRIT 32.3 % (37-47); MEAN CELL VOLUME 93.6 fL (80-100); MEAN CORPUSCULAR HEMOGLOBIN 30.7 pg (25-34); MEAN CORPUSCULAR HGB CONC 32.8 g/dl (32-36); MEAN PLATELET VOLUME 11.6 fL (7.4-10.4); PLATELET COUNT 125 K/uL (130-400); RED BLOOD COUNT 3.45 M/uL (4.2-5.4); WHITE BLOOD COUNT 8.45 K/uL (4.8-10.8)
[2017-08-21 07:07] LABS: INR 1.5 (0.9-1.1); PROTHROMBIN TIME (PATIENT) 15.8 SECONDS (9.0-12.0)
[2017-08-21 07:33] LABS: BUN/CREATININE RATIO 10.9 (10-20); CALCIUM 8.5 mg/dl (8.5-10.1); CREATININE 0.6 mg/dl (0.60-1.20)
[2017-08-21 07:36] LABS: ALB/GLOB RATIO 0.7 (0.9-2)
[2017-08-21] MEDS: GABAPENTIN 300 MG CAP PO SCH ×3 (07:52→21:39)
[2017-08-21] MEDS: AMIODARONE 200 MG TAB PO SCH ×3 (07:52→16:06)
[2017-08-21] MEDS: SENNA 8.6 MG TAB PO SCH ×2 (07:53→21:00)
[2017-08-21] MEDS: PANTOprazole SOD 40 MG TAB PO SCH (07:53)
[2017-08-21] MEDS: BuPROPion XL 150 MG TABCR PO SCH (07:53)
[2017-08-21] MEDS: ASPIRIN 81 MG ECTAB PO SCH (07:53)
[2017-08-21] MEDS: CLOPIDOGREL BISULFATE 75 MG TAB PO SCH (07:53)
[2017-08-21] MEDS: FLUOXETINE HCL 20 MG CAP PO SCH (07:54)
[2017-08-21] MEDS: AMLODIPINE BESYLATE 5 MG TAB PO SCH (07:54)
[2017-08-21] MEDS: ENOXAPARIN 40 MG/0.4 ML SYR SQ SCH (07:55)
--- NOTE | 2017-08-21 14:58 | Cardiology Follow-Up ---
Subjective General Date of Service: Aug 21, 2017. Chief Complaint: follow up PAF, PAFL Pt evaluation today including: conversation w/ patient, physical exam History of Present Illness The patient is a 57 year old female seen in follow up. Pt is well known to the undersigned as I have followed her on an inpatient and outpatient basis. Pt with no additional AF since around 1600 on 08/20/17, having received amiodarone 400 mg x 2 doses. Allergies Coded Allergies: Amoxicillin (Verified Allergy, Severe, LIVER FAILURE, 08/15/17) Clavulanic Acid (Verified Allergy, Severe, LIVER FAILURE, 08/15/17) Adhesives (Verified Allergy, Mild, 08/15/17) Acetaminophen (Verified Allergy, Unknown, LIVER DAMAGE-DUE TO FAILURE, ) Guanfacine (Verified Allergy, Unknown, 08/15/17) Nifedipine (Verified Allergy, Unknown, 08/15/17) Social History Smoking Status: Current Every Day Smoker Hx Tobacco Use In Past Year?: No Hx Alcohol Use - Type And Amou: Yes (1-2 beers/day) Hx Substance Use - Type And Am: No Problem List Medical Problems: (1) Acute liver failure Status: Acute (2) Cellulitis Status: Acute (3) Contusion of ankle, left Status: Acute (4) Lower extremity edema Status: Acute (5) Rapid atrial fibrillation Status: Acute (6) Trimalleolar fracture of ankle, closed Status: Acute Physical Exam Vital Signs Last Vital Signs Documentation Date Time Temp Pulse Resp B/P (MAP) Pulse Ox O2 Delivery O2 Flow Rate FiO2 08/21/17 12:24 36.7 67 16 111/71 (84) 94 Room Air Physical Exam Constitutional: General Apperance: well-nourished, well-developed Level of Distress: NAD, chronically ill Psychiatric: Mental Status: active & alert, normal mood, normal affect Orientation: oriented except where noted, to time, to place, to person Memory: recent memory normal, remote memory normal Head: normocephalic, atraumatic Eyes: EOM: EOMI Neck: supple, trachea midline Lungs: Respiratory effort: no dyspnea Auscultation: no rales/crackles, no rhonchi, decreased breath sounds Cardiovascular: Apical Impulse: not displaced Peripheral Pulses: Bruits: none appreciated Carotid Pulse: normal on the left, normal on the right Radial Pulse: normal on the left, normal on the right Femoral Pulse: pertinent finding (femoral pulses +2 BLE) Dorsalis Pedis Pulse: pertinent finding (LLE BKA, RLE nonpalpable) Abdomen: Bowel Sounds: normal Inspection & Palpation: soft, non-distended, no tenderness, guarding & rebound Musculoskeletal: normal strength (5/5 throughout), normal tone Neurologic: Cranial Nerves: grossly intact Sensation: grossly intact Assessment and Plan Assessment and Plan Impression: 57 year old female 1. PAF, AFL with RVR 2. h/o L LE osteomyelitis, recurrent infection vs other inflammatory changes on MRI a consideration 3. PAD Plan: Treatment dose of AV rich blockers has bee limited by bradycardia in the past. Continue PO amiodarone load. Add low dose metoprolol 12.5 mg BID, having ceased sotalol rx. Continue warfarin load, 10 mg, INR is below goal, however given amiodarone therapy, anticipate INR will increase. LFTs normal. Update TSH tomorrow. Laboratory Results Last 24 Hours Test 08/21/17 06:26 White Blood Count 8.45 K/uL Red Blood Count 3.45 M/uL Hemoglobin 10.6 g/dL Hematocrit 32.3 % Mean Corpuscular Volume 93.6 fL Mean Corpuscular Hemoglobin 30.7 pg Mean Corpuscular Hemoglobin Concent 32.8 g/dl RDW Standard Deviation 52.1 fL RDW Coefficient of Variation 15.3 % Platelet Count 125 K/uL Mean Platelet Volume 11.6 fL Prothrombin Time 15.8 SECONDS Prothromb Time International Ratio 1.5 Sodium Level 132 mmol/L Potassium Level 4.0 mmol/L Chloride Level 99 mmol/L Carbon Dioxide Level 30 mmol/L Anion Gap 3.0 mmol/L Blood Urea Nitrogen 7 mg/dl Creatinine 0.60 mg/dl Est Creatinine Clear Calc Drug Dose 91.0 ml/min Estimated GFR () 117.3 Estimated GFR (Non- 101.2 BUN/Creatinine Ratio 10.9 Random Glucose 88 mg/dl Calcium Level 8.5 mg/dl Total Bilirubin 0.3 mg/dl Aspartate Amino Transf (AST/SGOT) 15 U/L Alanine Aminotransferase (ALT/SGPT) 13 U/L Alkaline Phosphatase 74 U/L Total Protein 6.1 gm/dl Albumin 2.6 gm/dl Globulin 3.5 gm/dl Albumin/Globulin Ratio 0.7
[2017-08-21] MEDS: WARFARIN SOD 10 MG TAB PO SCH (16:07)
--- NOTE | 2017-08-21 16:16 | Progress Note ---
Medicine Progress Note Date & Time of Visit: Aug 21, 2017 at 10:15 . Subjective Best day in a while. Pain left residual limb under better control. No further abdominal pain. No chest pain. No cough, SOB. Voiding without difficulty. . Objective Last 8 Hrs Date Time Temp Pulse Resp B/P (MAP) Pulse Ox O2 Delivery O2 Flow Rate FiO2 08/21/17 15:53 96 Room Air 08/21/17 15:25 36.8 70 18 91/60 (70) 96 Room Air 08/21/17 12:24 36.7 67 16 111/71 (84) 94 Room Air 08/21/17 12:21 94 Room Air 08/21/17 08:17 36.7 80 16 112/80 (91) 94 Room Air Physical Exam: General- no distress Neck- no JVD Lungs- clear Heart- RRR, I/ systolic murmur at base, no gallop Abdomen- + BS, nondistended, soft, nontender Extremities- left BKA with swelling and tenderness distal residual limb; no erythema or drainage; no pretibial edema or calf tenderness RLE Neuro- alert Skin- warm & dry . Laboratory Results: Last 24 Hours Test 08/21/17 06:26 White Blood Count 8.45 K/uL Red Blood Count 3.45 M/uL Hemoglobin 10.6 g/dL Hematocrit 32.3 % Mean Corpuscular Volume 93.6 fL Mean Corpuscular Hemoglobin 30.7 pg Mean Corpuscular Hemoglobin Concent 32.8 g/dl RDW Standard Deviation 52.1 fL RDW Coefficient of Variation 15.3 % Platelet Count 125 K/uL Mean Platelet Volume 11.6 fL Prothrombin Time 15.8 SECONDS Prothromb Time International Ratio 1.5 Sodium Level 132 mmol/L Potassium Level 4.0 mmol/L Chloride Level 99 mmol/L Carbon Dioxide Level 30 mmol/L Anion Gap 3.0 mmol/L Blood Urea Nitrogen 7 mg/dl Creatinine 0.60 mg/dl Est Creatinine Clear Calc Drug Dose 91.0 ml/min Estimated GFR () 117.3 Estimated GFR (Non- 101.2 BUN/Creatinine Ratio 10.9 Random Glucose 88 mg/dl Calcium Level 8.5 mg/dl Total Bilirubin 0.3 mg/dl Aspartate Amino Transf (AST/SGOT) 15 U/L Alanine Aminotransferase (ALT/SGPT) 13 U/L Alkaline Phosphatase 74 U/L Total Protein 6.1 gm/dl Albumin 2.6 gm/dl Globulin 3.5 gm/dl Albumin/Globulin Ratio 0.7 Assessment & Plan PAROXYSMAL ATRIAL FIBRILLATION / FLUTTER PAF with rapid ventricular response. Consulted Cardiology. Sotalol dose increased to 120 mg twice a day, but patient continued to have paroxysmal atrial fibrillation/flutter. Antiarrhythmic therapy with amiodarone being initiated. Continue cardiac monitoring. Continue warfarin, titrate dose. Anticipate amiodarone-warfarin interaction. LLE PAIN S/P BKA; presented with worsening pain left residual limb. Concerns about possible osteomyelitis left residual tibia per MRI, but no fever , leukocytosis. ESR normal. C-reactive protein normal. Ortho consulted; MRI findings may represent stress reaction rather than infection. Antibiotics discontinued. Monitor for fever or other signs/symptoms of infection. Titrated analgesics. Increased oxycodone IR. Added IV hydromorphone for severe pain. Continue gabapentin. HYPERTENSION Hemodynamically stable. Continue amlodipine. ABDOMINAL PAIN Experienced abdominal pain Exam benign. No nausea, vomiting, diarrhea. Postvoid bladder scan ~ 200 ml. Pain improved after straight cath. URINARY RETENTION Postvoid bladder scan ~ 200 ml. Narcotic analgesics may be contributing to urinary retention. Straight cath PRN. Follow. VTE PROPHYLAXIS On warfarin, but INR low. SQ enoxaparin until warfarin therapeutic. DISPOSITION Expected discharge to home. Family Medicine follow-up with Dr. Tai. Cardiology follow-up with Dr. Kinsey. Orthopedics follow-up at [facility]. . Current Inpatient Medications: Current Inpatient Medications Medications (Trade) Dose Ordered Sig/[facility] Route Start Time Stop Time Status Last Admin Dose Admin Amlodipine Besylate (Norvasc Tab) 10 mg DAILY PO 08/16/17 09:00 09/15/17 08:59 08/21/17 07:54 10 MG Aspirin (Ecotrin Tab) 81 mg DAILY PO 08/16/17 09:00 09/15/17 08:59 08/21/17 07:53 81 MG Atorvastatin Calcium (Lipitor Tab) 80 mg HS PO 08/15/17 21:00 09/14/17 20:59 08/20/17 20:38 80 MG Bupropion HCl (Wellbutrin-Xl Tab) 150 mg DAILY PO 08/16/17 09:00 09/15/17 08:59 08/21/17 07:53 150 MG Clopidogrel Bisulfate (plAVix TAB) 75 mg DAILY PO 08/16/17 09:00 09/15/17 08:59 08/21/17 07:53 75 MG Fluoxetine HCl (Prozac Cap) 20 mg DAILY PO 08/16/17 09:00 09/15/17 08:59 08/21/17 07:54 20 MG Ondansetron HCl (Zofran Tab) 8 mg Q8 PRN PO 08/15/17 18:15 09/14/17 18:14 08/20/17 20:38 8 MG Pantoprazole Sodium (Protonix Tab) 40 mg DAILY PO 08/16/17 09:00 09/15/17 08:59 08/21/17 07:53 40 MG Zolpidem Tartrate (Ambien Tab) 5 mg HS PRN PO 08/15/17 18:15 09/14/17 18:14 08/21/17 00:06 5 MG Ranitidine HCl (zANTac TAB) 300 mg HS PO 08/15/17 21:00 09/14/17 20:59 08/20/17 20:38 300 MG Senna (Senokot Tab) 8.6 mg BID PO 08/15/17 21:00 09/14/17 20:59 08/17/17 08:08 8.6 MG Gabapentin (Neurontin Cap) 900 mg TID PO 08/16/17 09:00 09/15/17 08:59 08/21/17 14:11 900 MG Enoxaparin Sodium (Lovenox Inj) 40 mg QAM SQ 08/17/17 09:00 09/16/17 08:59 08/21/17 07:55 40 MG Hydromorphone HCl (Dilaudid Inj) 1 mg Q3H PRN IV 08/17/17 10:15 08/31/17 10:14 08/21/17 14:11 1 MG Oxycodone HCl (Roxicodone Immediate Rel Tab) 20 mg Q6H PRN PO 08/17/17 10:15 08/31/17 10:14 08/21/17 11:47 20 MG Warfarin Sodium (Coumadin Tab) 10 mg DAILY@16 PO 08/20/17 16:00 09/19/17 15:59 08/20/17 15:48 10 MG Amiodarone HCl (Cordarone Tab) 400 mg TIDM PO 08/21/17 07:30 09/20/17 07:29 08/21/17 11:46 400 MG Metoprolol Tartrate (Lopressor Iv) 5 mg Q4 PRN IV 08/20/17 09:00 09/19/17 08:59 Al Hydroxide/Mg Hydroxide (Maalox Susp) 30 ml Q6H PRN PO 08/20/17 09:00 09/19/17 08:59 08/21/17 06:44 30 ML Metoprolol Tartrate (Lopressor Tab) 12.5 mg BID PO 08/21/17 21:00 09/20/17 20:59
[2017-08-21] MEDS: METOPROLOL TARTRATE 25 MG TAB PO SCH (21:00)
[2017-08-21] MEDS: RANITIDINE HCL 150 MG TAB PO SCH (21:39)
[2017-08-21] MEDS: ATORVASTATIN 40 MG TAB PO SCH (21:39)
[2017-08-22] VITALS (8 sets, daily range): BP systolic 83–120; BP diastolic 60–85; PULSE 61–79; TEMP 36.6–36.8; O2SAT 91–98
[2017-08-22] MEDS: OXYCODONE HCL IR 5 MG TAB (IMMEDIATE RELEASE) PO PRN ×4 (00:24→19:39)
[2017-08-22] MEDS: HYDROmorphone INJ 1 MG/ML SYR IV PRN (03:36)
[2017-08-22 05:57] LABS: INR 2.2 (0.9-1.1); PROTHROMBIN TIME (PATIENT) 24.6 SECONDS (9.0-12.0)
[2017-08-22 06:27] LABS: CALCIUM 8.4 mg/dl (8.5-10.1); CREATININE 0.62 mg/dl (0.60-1.20); MAGNESIUM 2.2 mg/dl (1.8-2.4)
[2017-08-22 06:38] LABS: THYROID STIMULATING HORMONE 1.97 uIu/ml (0.300-4.500)
[2017-08-22] MEDS: AMIODARONE 200 MG TAB PO SCH ×3 (07:31→16:02)
[2017-08-22] MEDS: SENNA 8.6 MG TAB PO SCH ×2 (09:00→21:00)
[2017-08-22] MEDS: METOPROLOL TARTRATE 25 MG TAB PO SCH ×2 (09:18→21:18)
[2017-08-22] MEDS: ASPIRIN 81 MG ECTAB PO SCH (09:19)
[2017-08-22] MEDS: BuPROPion XL 150 MG TABCR PO SCH (09:19)
[2017-08-22] MEDS: AMLODIPINE BESYLATE 5 MG TAB PO SCH (09:19)
[2017-08-22] MEDS: FLUOXETINE HCL 20 MG CAP PO SCH (09:20)
[2017-08-22] MEDS: PANTOprazole SOD 40 MG TAB PO SCH (09:20)
[2017-08-22] MEDS: CLOPIDOGREL BISULFATE 75 MG TAB PO SCH (09:20)
[2017-08-22] MEDS: ENOXAPARIN 40 MG/0.4 ML SYR SQ SCH (09:21)
[2017-08-22] MEDS: GABAPENTIN 300 MG CAP PO SCH ×3 (09:21→21:17)
[2017-08-22] MEDS: ONDANSETRON 8 MG TAB PO PRN (11:44)
--- NOTE | 2017-08-22 12:49 | Cardiology Follow-Up ---
Subjective General Date of Service: Aug 22, 2017. Chief Complaint: follow up PAF, PAFL Pt evaluation today including: conversation w/ patient, physical exam History of Present Illness The patient is a 57 year old female seen in follow up. Pt notes feeling well from cardiac standpoint. Denies subjective palpitations. Telemetry and EKG reveal SR this am. QTc stable on EKG this am. Telemetry reveals several short runs of AF over last 24 hours , on 08/22/17 at 2 :32 am at 3.2 second conversion pause is noted when converting from AF to SR. Allergies Coded Allergies: Amoxicillin (Verified Allergy, Severe, LIVER FAILURE, 08/15/17) Clavulanic Acid (Verified Allergy, Severe, LIVER FAILURE, 08/15/17) Adhesives (Verified Allergy, Mild, 08/15/17) Acetaminophen (Verified Allergy, Unknown, LIVER DAMAGE-DUE TO FAILURE, ) Guanfacine (Verified Allergy, Unknown, 08/15/17) Nifedipine (Verified Allergy, Unknown, 08/15/17) Social History Smoking Status: Current Every Day Smoker Hx Tobacco Use In Past Year?: No Hx Alcohol Use - Type And Amou: Yes (1-2 beers/day) Hx Substance Use - Type And Am: No Problem List Medical Problems: (1) Acute liver failure Status: Acute (2) Cellulitis Status: Acute (3) Contusion of ankle, left Status: Acute (4) Lower extremity edema Status: Acute (5) Rapid atrial fibrillation Status: Acute (6) Trimalleolar fracture of ankle, closed Status: Acute Physical Exam Vital Signs Last Vital Signs Documentation Date Time Temp Pulse Resp B/P (MAP) Pulse Ox O2 Delivery O2 Flow Rate FiO2 08/22/17 12:05 91 Room Air 08/22/17 12:01 36.6 79 16 120/68 (85) Physical Exam Constitutional: General Apperance: well-nourished, well-developed Level of Distress: NAD, chronically ill Psychiatric: Mental Status: active & alert, normal mood, normal affect Orientation: oriented except where noted, to time, to place, to person Memory: recent memory normal, remote memory normal Head: normocephalic, atraumatic Eyes: EOM: EOMI Neck: supple, trachea midline Lungs: Respiratory effort: no dyspnea Auscultation: no rales/crackles, no rhonchi, decreased breath sounds Cardiovascular: Apical Impulse: not displaced Peripheral Pulses: Bruits: none appreciated Carotid Pulse: normal on the left, normal on the right Radial Pulse: normal on the left, normal on the right Femoral Pulse: pertinent finding (femoral pulses +2 BLE) Dorsalis Pedis Pulse: pertinent finding (LLE BKA, RLE nonpalpable) Abdomen: Bowel Sounds: normal Inspection & Palpation: soft, non-distended, no tenderness, guarding & rebound Musculoskeletal: normal strength (5/5 throughout), normal tone Neurologic: Cranial Nerves: grossly intact Sensation: grossly intact Assessment and Plan Assessment and Plan Impression: 57 year old female 1. PAF, AFL with RVR 2. h/o L LE osteomyelitis, recurrent infection vs other inflammatory changes on MRI a consideration 3. PAD Plan: Treatment dose of AV rich blockers has bee limited by bradycardia in the past. Continue PO amiodarone load. Continue metoprolol 12.5 mg BID, having ceased sotalol rx. INR now at goal at 2.2. DC SQ lovenox DVT prophylaxis dose as INR is now at goal. Screening TSH normal. Laboratory Results Last 24 Hours Test 08/22/17 05:33 Prothrombin Time 24.6 SECONDS Prothromb Time International Ratio 2.2 Sodium Level 134 mmol/L Potassium Level 4.0 mmol/L Chloride Level 100 mmol/L Carbon Dioxide Level 29 mmol/L Anion Gap 5.0 mmol/L Blood Urea Nitrogen 6 mg/dl Creatinine 0.62 mg/dl Est Creatinine Clear Calc Drug Dose 88.0 ml/min Estimated GFR () 116.0 Estimated GFR (Non- 100.1 BUN/Creatinine Ratio 10.0 Random Glucose 90 mg/dl Calcium Level 8.4 mg/dl Magnesium Level 2.2 mg/dl Thyroid Stimulating Hormone (TSH) 1.970 uIu/ml
[2017-08-22] MEDS: WARFARIN SOD 10 MG TAB PO SCH (16:01)
--- NOTE | 2017-08-22 21:09 | Progress Note ---
Medicine Progress Note Date & Time of Visit: Aug 22, 2017 at 16:30 . Subjective Feels well, continues to have paroxysmal atrial fibrillation. No chest pain. No cough or shortness of breath. No nausea, vomiting, diarrhea. Voiding without difficulty. Pain left residual limb fairly well controlled on oral meds. . Objective Last 8 Hrs Date Time Temp Pulse Resp B/P (MAP) Pulse Ox O2 Delivery O2 Flow Rate FiO2 08/22/17 19:24 36.8 62 18 83/61 (68) 97 111/67 (82) 08/22/17 16:10 96 Room Air 08/22/17 15:34 36.6 66 18 100/60 (73) 96 Room Air Physical Exam: General- no distress Neck- no JVD Lungs- clear Heart- RRR, I/ systolic murmur at base, no gallop Abdomen- + BS, nondistended, soft, nontender Extremities- left BKA, no erythema or drainage residual limb; no pretibial edema or calf tenderness RLE Neuro- alert Skin- warm & dry . Laboratory Results: Last 24 Hours Test 08/22/17 05:33 Prothrombin Time 24.6 SECONDS Prothromb Time International Ratio 2.2 Sodium Level 134 mmol/L Potassium Level 4.0 mmol/L Chloride Level 100 mmol/L Carbon Dioxide Level 29 mmol/L Anion Gap 5.0 mmol/L Blood Urea Nitrogen 6 mg/dl Creatinine 0.62 mg/dl Est Creatinine Clear Calc Drug Dose 88.0 ml/min Estimated GFR () 116.0 Estimated GFR (Non- 100.1 BUN/Creatinine Ratio 10.0 Random Glucose 90 mg/dl Calcium Level 8.4 mg/dl Magnesium Level 2.2 mg/dl Thyroid Stimulating Hormone (TSH) 1.970 uIu/ml Assessment & Plan PAROXYSMAL ATRIAL FIBRILLATION / FLUTTER PAF with rapid ventricular response. Consulted Cardiology. Sotalol dose increased to 120 mg twice a day, but patient continued to have paroxysmal atrial fibrillation/flutter. Antiarrhythmic therapy with amiodarone being initiated. Continue warfarin. Continue cardiac monitoring. LLE PAIN S/P BKA; presented with worsening pain left residual limb. Initial concerns about possible osteomyelitis left residual tibia per MRI, but no fever, leukocytosis. ESR normal. C-reactive protein normal. Ortho consulted; MRI findings may represent stress reaction rather than infection. Antibiotics discontinued. Monitor for fever or other signs/symptoms of infection. Titrated analgesics. Increased oxycodone IR. Added IV hydromorphone for severe pain. Continue gabapentin. HYPERTENSION Hemodynamically stable. Continue amlodipine. ABDOMINAL PAIN Experienced abdominal pain Exam benign. No nausea, vomiting, diarrhea. Postvoid bladder scan ~ 200 ml. Pain improved after straight cath. URINARY RETENTION Postvoid bladder scan ~ 200 ml. Narcotic analgesics may be contributing to urinary retention. Straight cath PRN. Follow. VTE PROPHYLAXIS On warfarin, now with therapeutic INR. Received SQ enoxaparin when warfarin subtherapeutic. DISPOSITION Expected discharge to home. Family Medicine follow-up with Dr. Tai. Cardiology follow-up with Dr. Kinsey. Orthopedics follow-up at [facility]. . Current Inpatient Medications: Current Inpatient Medications Medications (Trade) Dose Ordered Sig/Rosa Route Start Time Stop Time Status Last Admin Dose Admin Amlodipine Besylate (Norvasc Tab) 10 mg DAILY PO 08/16/17 09:00 09/15/17 08:59 08/22/17 09:19 10 MG Aspirin (Ecotrin Tab) 81 mg DAILY PO 08/16/17 09:00 09/15/17 08:59 08/22/17 09:19 81 MG Atorvastatin Calcium (Lipitor Tab) 80 mg HS PO 08/15/17 21:00 09/14/17 20:59 08/21/17 21:39 80 MG Bupropion HCl (Wellbutrin-Xl Tab) 150 mg DAILY PO 08/16/17 09:00 09/15/17 08:59 08/22/17 09:19 150 MG Clopidogrel Bisulfate (plAVix TAB) 75 mg DAILY PO 08/16/17 09:00 09/15/17 08:59 08/22/17 09:20 75 MG Fluoxetine HCl (Prozac Cap) 20 mg DAILY PO 08/16/17 09:00 09/15/17 08:59 08/22/17 09:20 20 MG Ondansetron HCl (Zofran Tab) 8 mg Q8 PRN PO 08/15/17 18:15 09/14/17 18:14 08/22/17 11:44 8 MG Pantoprazole Sodium (Protonix Tab) 40 mg DAILY PO 08/16/17 09:00 09/15/17 08:59 08/22/17 09:20 40 MG Zolpidem Tartrate (Ambien Tab) 5 mg HS PRN PO 08/15/17 18:15 09/14/17 18:14 08/21/17 21:45 5 MG Ranitidine HCl (zANTac TAB) 300 mg HS PO 08/15/17 21:00 09/14/17 20:59 08/21/17 21:39 300 MG Senna (Senokot Tab) 8.6 mg BID PO 08/15/17 21:00 09/14/17 20:59 08/17/17 08:08 8.6 MG Gabapentin (Neurontin Cap) 900 mg TID PO 08/16/17 09:00 09/15/17 08:59 08/22/17 13:34 900 MG Hydromorphone HCl (Dilaudid Inj) 1 mg Q3H PRN IV 08/17/17 10:15 08/31/17 10:14 08/22/17 03:36 1 MG Oxycodone HCl (Roxicodone Immediate Rel Tab) 20 mg Q6H PRN PO 08/17/17 10:15 08/31/17 10:14 08/22/17 19:39 20 MG Warfarin Sodium (Coumadin Tab) 10 mg DAILY@16 PO 08/20/17 16:00 09/19/17 15:59 08/22/17 16:01 10 MG Amiodarone HCl (Cordarone Tab) 400 mg TIDM PO 08/21/17 07:30 09/20/17 07:29 08/22/17 16:02 400 MG Metoprolol Tartrate (Lopressor Iv) 5 mg Q4 PRN IV 08/20/17 09:00 09/19/17 08:59 Al Hydroxide/Mg Hydroxide (Maalox Susp) 30 ml Q6H PRN PO 08/20/17 09:00 09/19/17 08:59 08/21/17 06:44 30 ML Metoprolol Tartrate (Lopressor Tab) 12.5 mg BID PO 08/21/17 21:00 09/20/17 20:59 08/22/17 09:18 12.5 MG
[2017-08-22] MEDS: ATORVASTATIN 40 MG TAB PO SCH (21:17)
[2017-08-22] MEDS: RANITIDINE HCL 150 MG TAB PO SCH (21:17)
[2017-08-22] MEDS: ZOLPIDEM TARTRATE 5 MG TAB PO PRN (21:18)
[2017-08-23] VITALS (9 sets, daily range): BP systolic 94–118; BP diastolic 60–80; PULSE 58–67; TEMP 36.6–36.8; O2SAT 94–98
[2017-08-23] MEDS: OXYCODONE HCL IR 5 MG TAB (IMMEDIATE RELEASE) PO PRN ×4 (02:00→20:05)
[2017-08-23 06:19] LABS: HEMATOCRIT 30.6 % (37-47); MEAN CELL VOLUME 93.6 fL (80-100); MEAN CORPUSCULAR HEMOGLOBIN 29.7 pg (25-34); MEAN CORPUSCULAR HGB CONC 31.7 g/dl (32-36); MEAN PLATELET VOLUME 12.4 fL (7.4-10.4); PLATELET COUNT 139 K/uL (130-400); RED BLOOD COUNT 3.27 M/uL (4.2-5.4); WHITE BLOOD COUNT 6.53 K/uL (4.8-10.8)
[2017-08-23 06:33] LABS: INR 2.4 (0.9-1.1); PROTHROMBIN TIME (PATIENT) 26.8 SECONDS (9.0-12.0)
[2017-08-23] MEDS: PANTOprazole SOD 40 MG TAB PO SCH (07:48)
[2017-08-23] MEDS: GABAPENTIN 300 MG CAP PO SCH ×2 (07:48→13:39)
[2017-08-23] MEDS: CLOPIDOGREL BISULFATE 75 MG TAB PO SCH (07:49)
[2017-08-23] MEDS: AMLODIPINE BESYLATE 5 MG TAB PO SCH (07:49)
[2017-08-23] MEDS: METOPROLOL TARTRATE 25 MG TAB PO SCH ×2 (07:49→21:35)
[2017-08-23] MEDS: BuPROPion XL 150 MG TABCR PO SCH (07:50)
[2017-08-23] MEDS: AMIODARONE 200 MG TAB PO SCH ×3 (07:50→17:05)
[2017-08-23] MEDS: FLUOXETINE HCL 20 MG CAP PO SCH (07:50)
[2017-08-23] MEDS: ASPIRIN 81 MG ECTAB PO SCH (07:51)
[2017-08-23] MEDS: SENNA 8.6 MG TAB PO SCH ×2 (07:52→21:34)
--- NOTE | 2017-08-23 15:22 | Cardiology Follow-Up ---
Subjective General Date of Service: Aug 23, 2017. Chief Complaint: follow up PAF, PAFL Pt evaluation today including: conversation w/ patient, physical exam History of Present Illness The patient is a 57 year old female seen in follow up. Pt feeling well. Telemetry reveals SR with PVCs , no AF today, no pauses. Allergies Coded Allergies: Amoxicillin (Verified Allergy, Severe, LIVER FAILURE, 08/15/17) Clavulanic Acid (Verified Allergy, Severe, LIVER FAILURE, 08/15/17) Adhesives (Verified Allergy, Mild, 08/15/17) Acetaminophen (Verified Allergy, Unknown, LIVER DAMAGE-DUE TO FAILURE, ) Guanfacine (Verified Allergy, Unknown, 08/15/17) Nifedipine (Verified Allergy, Unknown, 08/15/17) Social History Smoking Status: Current Every Day Smoker Hx Tobacco Use In Past Year?: No Hx Alcohol Use - Type And Amou: Yes (1-2 beers/day) Hx Substance Use - Type And Am: No Problem List Medical Problems: (1) Acute liver failure Status: Acute (2) Cellulitis Status: Acute (3) Contusion of ankle, left Status: Acute (4) Lower extremity edema Status: Acute (5) Rapid atrial fibrillation Status: Acute (6) Trimalleolar fracture of ankle, closed Status: Acute Physical Exam Vital Signs Last Vital Signs Documentation Date Time Temp Pulse Resp B/P (MAP) Pulse Ox O2 Delivery O2 Flow Rate FiO2 08/23/17 12:00 Room Air 08/23/17 11:50 36.7 61 18 110/73 (85) 98 Physical Exam Constitutional: General Apperance: well-nourished, well-developed Level of Distress: NAD, chronically ill Psychiatric: Mental Status: active & alert, normal mood, normal affect Orientation: oriented except where noted, to time, to place, to person Memory: recent memory normal, remote memory normal Head: normocephalic, atraumatic Eyes: EOM: EOMI Neck: supple, trachea midline Lungs: Respiratory effort: no dyspnea Auscultation: no rales/crackles, no rhonchi, decreased breath sounds Cardiovascular: Apical Impulse: not displaced Peripheral Pulses: Bruits: none appreciated Carotid Pulse: normal on the left, normal on the right Radial Pulse: normal on the left, normal on the right Femoral Pulse: pertinent finding (femoral pulses +2 BLE) Dorsalis Pedis Pulse: pertinent finding (LLE BKA, RLE nonpalpable) Abdomen: Bowel Sounds: normal Inspection & Palpation: soft, non-distended, no tenderness, guarding & rebound Musculoskeletal: normal strength (5/5 throughout), normal tone Neurologic: Cranial Nerves: grossly intact Sensation: grossly intact Assessment and Plan Assessment and Plan Impression: 57 year old female 1. PAF, AFL with RVR 2. h/o L LE osteomyelitis, recurrent infection vs other inflammatory changes on MRI a consideration 3. PAD Plan: increase metoprolol tartrate to 25 mg BID. Continue amiodarone 400 mg PO TID today and tonight, transition to 200 mg BID at discharge. Continue coumadin. Laboratory Results Last 24 Hours Test 08/23/17 05:41 White Blood Count 6.53 K/uL Red Blood Count 3.27 M/uL Hemoglobin 9.7 g/dL Hematocrit 30.6 % Mean Corpuscular Volume 93.6 fL Mean Corpuscular Hemoglobin 29.7 pg Mean Corpuscular Hemoglobin Concent 31.7 g/dl RDW Standard Deviation 52.6 fL RDW Coefficient of Variation 15.3 % Platelet Count 139 K/uL Mean Platelet Volume 12.4 fL Prothrombin Time 26.8 SECONDS Prothromb Time International Ratio 2.4
[2017-08-23] MEDS ORDERED: WARFARIN SOD 5 MG TAB PO SCH (16:00)
--- NOTE | 2017-08-23 20:15 | Progress Note ---
Medicine Progress Note Date & Time of Visit: Aug 23, 2017 at 15:10 . Subjective No chest pain. No cough or SOB. Pain left residual limb improved, but still significant at times. No nausea or vomiting. No diarrhea. Voiding without difficulty. . Objective Last 8 Hrs Date Time Temp Pulse Resp B/P (MAP) Pulse Ox O2 Delivery O2 Flow Rate FiO2 08/23/17 19:33 36.7 66 18 112/72 (85) 94 Room Air 08/23/17 17:05 58 100/60 (73) 08/23/17 16:24 36.6 64 18 94/61 (72) 97 Room Air 08/23/17 16:00 97 Room Air Physical Exam: General- lying in bed, no distress Neck- no JVD Lungs- clear Heart- RRR, I/ systolic murmur at base, no gallop Abdomen- + BS, nondistended, soft, nontender Extremities- left BKA, no erythema or drainage residual limb; no pretibial edema or calf tenderness RLE Neuro- alert Skin- warm & dry . Laboratory Results: Last 24 Hours Test 08/23/17 05:41 White Blood Count 6.53 K/uL Red Blood Count 3.27 M/uL Hemoglobin 9.7 g/dL Hematocrit 30.6 % Mean Corpuscular Volume 93.6 fL Mean Corpuscular Hemoglobin 29.7 pg Mean Corpuscular Hemoglobin Concent 31.7 g/dl RDW Standard Deviation 52.6 fL RDW Coefficient of Variation 15.3 % Platelet Count 139 K/uL Mean Platelet Volume 12.4 fL Prothrombin Time 26.8 SECONDS Prothromb Time International Ratio 2.4 Assessment & Plan PAROXYSMAL ATRIAL FIBRILLATION / FLUTTER PAF with rapid ventricular response. Consulted Cardiology. Sotalol dose increased to 120 mg twice a day, but patient continued to have paroxysmal atrial fibrillation/flutter. Antiarrhythmic therapy with amiodarone initiated. Continue warfarin. Continue cardiac monitoring. LLE PAIN S/P BKA; presented with worsening pain left residual limb. Initial concerns about possible osteomyelitis left residual tibia per MRI, but no fever, leukocytosis. ESR normal. C-reactive protein normal. Ortho consulted; MRI findings may represent stress reaction rather than infection. Antibiotics discontinued. Monitor for fever or other signs/symptoms of infection. Titrated analgesics. Increased oxycodone IR. Increase gabapentin dose.. HYPERTENSION Hemodynamically stable. Continue amlodipine. ABDOMINAL PAIN Experienced abdominal pain 08/20. Exam benign. No nausea, vomiting, diarrhea. Postvoid bladder scan ~ 200 ml. Pain improved after straight cath. URINARY RETENTION Postvoid bladder scan ~ 200 ml. Narcotic analgesics may be contributing to urinary retention. Now voiding without difficulty. Straight cath PRN. Follow. VTE PROPHYLAXIS On warfarin. Received SQ enoxaparin when warfarin subtherapeutic. DISPOSITION Expected discharge to home. Family Medicine follow-up with Dr. Tai. Cardiology follow-up with Dr. Kinsey. Orthopedics follow-up at [facility]. . Current Inpatient Medications: Current Inpatient Medications Medications (Trade) Dose Ordered Sig/Rosa Route Start Time Stop Time Status Last Admin Dose Admin Amlodipine Besylate (Norvasc Tab) 10 mg DAILY PO 08/16/17 09:00 09/15/17 08:59 08/23/17 07:49 10 MG Aspirin (Ecotrin Tab) 81 mg DAILY PO 08/16/17 09:00 09/15/17 08:59 08/23/17 07:51 81 MG Atorvastatin Calcium (Lipitor Tab) 80 mg HS PO 08/15/17 21:00 09/14/17 20:59 08/22/17 21:17 80 MG Bupropion HCl (Wellbutrin-Xl Tab) 150 mg DAILY PO 08/16/17 09:00 09/15/17 08:59 08/23/17 07:50 150 MG Clopidogrel Bisulfate (plAVix TAB) 75 mg DAILY PO 08/16/17 09:00 09/15/17 08:59 08/23/17 07:49 75 MG Fluoxetine HCl (Prozac Cap) 20 mg DAILY PO 08/16/17 09:00 09/15/17 08:59 08/23/17 07:50 20 MG Ondansetron HCl (Zofran Tab) 8 mg Q8 PRN PO 08/15/17 18:15 09/14/17 18:14 08/22/17 11:44 8 MG Pantoprazole Sodium (Protonix Tab) 40 mg DAILY PO 08/16/17 09:00 09/15/17 08:59 08/23/17 07:48 40 MG Zolpidem Tartrate (Ambien Tab) 5 mg HS PRN PO 08/15/17 18:15 09/14/17 18:14 08/22/17 21:18 5 MG Ranitidine HCl (zANTac TAB) 300 mg HS PO 08/15/17 21:00 09/14/17 20:59 08/22/17 21:17 300 MG Senna (Senokot Tab) 8.6 mg BID PO 08/15/17 21:00 09/14/17 20:59 08/17/17 08:08 8.6 MG Hydromorphone HCl (Dilaudid Inj) 1 mg Q3H PRN IV 08/17/17 10:15 08/31/17 10:14 08/22/17 03:36 1 MG Oxycodone HCl (Roxicodone Immediate Rel Tab) 20 mg Q6H PRN PO 08/17/17 10:15 08/31/17 10:14 08/23/17 20:05 20 MG Amiodarone HCl (Cordarone Tab) 400 mg TIDM PO 08/21/17 07:30 09/20/17 07:29 08/23/17 17:05 400 MG Metoprolol Tartrate (Lopressor Iv) 5 mg Q4 PRN IV 08/20/17 09:00 09/19/17 08:59 Al Hydroxide/Mg Hydroxide (Maalox Susp) 30 ml Q6H PRN PO 08/20/17 09:00 09/19/17 08:59 08/21/17 06:44 30 ML Warfarin Sodium (Coumadin Tab) 5 mg DAILY@16 PO 08/23/17 16:00 09/22/17 15:59 08/23/17 16:03 5 MG Metoprolol Tartrate (Lopressor Tab) 25 mg BID PO 08/23/17 21:00 09/22/17 20:59 Gabapentin (Neurontin Cap) 1,200 mg TID PO 08/23/17 21:00 09/22/17 20:59
[2017-08-23] MEDS: GABAPENTIN 400 MG CAP PO SCH (21:35)
[2017-08-23] MEDS: ATORVASTATIN 40 MG TAB PO SCH (21:36)
[2017-08-23] MEDS: RANITIDINE HCL 150 MG TAB PO SCH (21:37)
[2017-08-23] MEDS: ZOLPIDEM TARTRATE 5 MG TAB PO PRN (21:42)
[2017-08-24] MEDS: OXYCODONE HCL IR 5 MG TAB (IMMEDIATE RELEASE) PO PRN ×3 (02:30→14:49)
[2017-08-24 04:06] VITALS: BP 110/56; PULSE 68; TEMP 36.4; O2SAT 92
[2017-08-24 06:50] LABS: HEMATOCRIT 30.8 % (37-47); MEAN CELL VOLUME 92.8 fL (80-100); MEAN CORPUSCULAR HEMOGLOBIN 29.8 pg (25-34); MEAN CORPUSCULAR HGB CONC 32.1 g/dl (32-36); MEAN PLATELET VOLUME 11.8 fL (7.4-10.4); PLATELET COUNT 164 K/uL (130-400); RED BLOOD COUNT 3.32 M/uL (4.2-5.4); WHITE BLOOD COUNT 6.66 K/uL (4.8-10.8)
[2017-08-24 07:24] LABS: BUN/CREATININE RATIO 9.3 (10-20); CALCIUM 8.3 mg/dl (8.5-10.1); CREATININE 0.65 mg/dl (0.60-1.20)
[2017-08-24 07:57] VITALS: BP 125/69; PULSE 69; TEMP 36.7; O2SAT 96
[2017-08-24] MEDS: AMIODARONE 200 MG TAB PO SCH (07:59)
[2017-08-24] MEDS: CLOPIDOGREL BISULFATE 75 MG TAB PO SCH (08:00)
[2017-08-24] MEDS: AMLODIPINE BESYLATE 5 MG TAB PO SCH (08:00)
[2017-08-24] MEDS: ASPIRIN 81 MG ECTAB PO SCH (08:00)
[2017-08-24] MEDS: PANTOprazole SOD 40 MG TAB PO SCH (08:01)
[2017-08-24] MEDS: METOPROLOL TARTRATE 25 MG TAB PO SCH (08:01)
[2017-08-24] MEDS: GABAPENTIN 400 MG CAP PO SCH ×2 (08:02→13:32)
[2017-08-24] MEDS: FLUOXETINE HCL 20 MG CAP PO SCH (08:03)
[2017-08-24] MEDS: SENNA 8.6 MG TAB PO SCH (08:03)
[2017-08-24] MEDS: BuPROPion XL 150 MG TABCR PO SCH (08:03)
[2017-08-24 10:14] LABS: INR 3.1 (0.9-1.1); PROTHROMBIN TIME (PATIENT) 34.3 SECONDS (9.0-12.0)
--- NOTE | 2017-08-24 10:44 | Clinical Documentation Query ---
Please send this to Dr García CLINICAL DOCUMENTATION QUERY 57 y o F with h/o L BKA who presents with acute stump pain x 2 days. In your clinical opinion is this patient being managed for: ( ) Acute blood-loss anemia ( ) Not Agree ( ) Other explanation of clinical findings (Please Explain) ( ) Unable to determine (Please Define) ( ) Need to Discuss The medical record reflects the following clinical findings, treatment, and risk factors. Clinical Indicators: Hgb 14.7 trending down to 9.9, SOB Treatment: Serial CBCs Risk Factors: Osteomyelitis, liver failure, SOB Please clarify and document your clinical opinion in the progress notes and discharge summary. Terms such as "probable", "suspected", "likely", "questionable", "possible", or "still to be ruled out" are acceptable. IF IN AGREEMENT, YOU MUST DOCUMENT ABOVE DIAGNOSTIC STATEMENT IN DAILY PROGRESS NOTES AND DISCHARGE SUMMARY. This document is not part of the patient's record. Thank You, Sujata Delgado RN [phone]
--- NOTE | 2017-08-24 11:43 | Cardiology Follow-Up ---
Subjective General Date of Service: Aug 24, 2017. Chief Complaint: follow up PAF, PAFL Pt evaluation today including: conversation w/ patient, physical exam History of Present Illness The patient is a 57 year old female seen in follow up. Denies chest pain or palpitations. Telemetry reveals SR with brief non sustained episodes of AF in last 24 hours. No bradycardia. Allergies Coded Allergies: Amoxicillin (Verified Allergy, Severe, LIVER FAILURE, 08/15/17) Clavulanic Acid (Verified Allergy, Severe, LIVER FAILURE, 08/15/17) Adhesives (Verified Allergy, Mild, 08/15/17) Acetaminophen (Verified Allergy, Unknown, LIVER DAMAGE-DUE TO FAILURE, ) Guanfacine (Verified Allergy, Unknown, 08/15/17) Nifedipine (Verified Allergy, Unknown, 08/15/17) Social History Smoking Status: Current Every Day Smoker Hx Tobacco Use In Past Year?: No Hx Alcohol Use - Type And Amou: Yes (1-2 beers/day) Hx Substance Use - Type And Am: No Problem List Medical Problems: (1) Acute liver failure Status: Acute (2) Cellulitis Status: Acute (3) Contusion of ankle, left Status: Acute (4) Lower extremity edema Status: Acute (5) Rapid atrial fibrillation Status: Acute (6) Trimalleolar fracture of ankle, closed Status: Acute Physical Exam Vital Signs Last Vital Signs Documentation Date Time Temp Pulse Resp B/P (MAP) Pulse Ox O2 Delivery O2 Flow Rate FiO2 08/24/17 08:00 Room Air 08/24/17 07:57 36.7 69 16 125/69 (87) 96 Physical Exam Constitutional: General Apperance: well-nourished, well-developed Level of Distress: NAD, chronically ill Psychiatric: Mental Status: active & alert, normal mood, normal affect Orientation: oriented except where noted, to time, to place, to person Memory: recent memory normal, remote memory normal Head: normocephalic, atraumatic Eyes: EOM: EOMI Neck: supple, trachea midline Lungs: Respiratory effort: no dyspnea Auscultation: no rales/crackles, no rhonchi, decreased breath sounds Cardiovascular: Apical Impulse: not displaced Peripheral Pulses: Bruits: none appreciated Carotid Pulse: normal on the left, normal on the right Radial Pulse: normal on the left, normal on the right Femoral Pulse: pertinent finding (femoral pulses +2 BLE) Dorsalis Pedis Pulse: pertinent finding (LLE BKA, RLE nonpalpable) Abdomen: Bowel Sounds: normal Inspection & Palpation: soft, non-distended, no tenderness, guarding & rebound Musculoskeletal: normal strength (5/5 throughout), normal tone Neurologic: Cranial Nerves: grossly intact Sensation: grossly intact Assessment and Plan Assessment and Plan Impression: 57 year old female 1. PAF, AFL with RVR 2. h/o L LE osteomyelitis, recurrent infection vs other inflammatory changes on MRI a consideration 3. PAD Plan: increase metoprolol tartrate to 25 mg BID. Transition to amiodarone 200 mg PO BID. Hold coumadin today. Reduce dose to coumadin 5 mg daily instead of 5 mg alternating to 7.5 mg,given amiodarone therapy, with close ACC follow up. OK from my standpoint for discharge. Laboratory Results Last 24 Hours Test 08/24/17 06:05 08/24/17 06:10 White Blood Count 6.66 K/uL Red Blood Count 3.32 M/uL Hemoglobin 9.9 g/dL Hematocrit 30.8 % Mean Corpuscular Volume 92.8 fL Mean Corpuscular Hemoglobin 29.8 pg Mean Corpuscular Hemoglobin Concent 32.1 g/dl RDW Standard Deviation 52.4 fL RDW Coefficient of Variation 15.4 % Platelet Count 164 K/uL Mean Platelet Volume 11.8 fL Sodium Level 135 mmol/L Potassium Level 4.0 mmol/L Chloride Level 103 mmol/L Carbon Dioxide Level 29 mmol/L Anion Gap 3.0 mmol/L Blood Urea Nitrogen 6 mg/dl Creatinine 0.65 mg/dl Est Creatinine Clear Calc Drug Dose 84.2 ml/min Estimated GFR () 114.2 Estimated GFR (Non- 98.6 BUN/Creatinine Ratio 9.3 Random Glucose 86 mg/dl Calcium Level 8.3 mg/dl Prothrombin Time 34.3 SECONDS Prothromb Time International Ratio 3.1
[2017-08-24 12:13] VITALS: BP 95/56; PULSE 69; TEMP 36.6; O2SAT 95
[2017-08-24] MEDS: ONDANSETRON 8 MG TAB PO PRN (13:31)
--- NOTE | 2017-08-24 15:25 | Progress Note ---
Medicine Progress Note Date & Time of Visit: Aug 24, 2017 at 15:25 . Subjective Doing well. Left residual limb pain adequately controlled most of the time. No chest pain. No cough or SOB. No nausea, vomiting, diarrhea. Voiding without difficulty. . Objective Last 8 Hrs Date Time Temp Pulse Resp B/P (MAP) Pulse Ox O2 Delivery O2 Flow Rate FiO2 08/24/17 12:13 36.6 69 16 95/56 (69) 95 Room Air 08/24/17 12:00 Room Air 08/24/17 08:00 Room Air 08/24/17 07:57 36.7 69 16 125/69 (87) 96 Room Air Physical Exam: General- sitting in wheelchair, no distress Neck- no JVD Lungs- clear Heart- RRR, I/ systolic murmur at base, no gallop Abdomen- + BS, nondistended, soft, nontender Extremities- left BKA, no pretibial edema or calf tenderness RLE Neuro- alert Skin- warm & dry . Laboratory Results: Last 24 Hours Test 08/24/17 06:05 08/24/17 06:10 White Blood Count 6.66 K/uL Red Blood Count 3.32 M/uL Hemoglobin 9.9 g/dL Hematocrit 30.8 % Mean Corpuscular Volume 92.8 fL Mean Corpuscular Hemoglobin 29.8 pg Mean Corpuscular Hemoglobin Concent 32.1 g/dl RDW Standard Deviation 52.4 fL RDW Coefficient of Variation 15.4 % Platelet Count 164 K/uL Mean Platelet Volume 11.8 fL Sodium Level 135 mmol/L Potassium Level 4.0 mmol/L Chloride Level 103 mmol/L Carbon Dioxide Level 29 mmol/L Anion Gap 3.0 mmol/L Blood Urea Nitrogen 6 mg/dl Creatinine 0.65 mg/dl Est Creatinine Clear Calc Drug Dose 84.2 ml/min Estimated GFR () 114.2 Estimated GFR (Non- 98.6 BUN/Creatinine Ratio 9.3 Random Glucose 86 mg/dl Calcium Level 8.3 mg/dl Prothrombin Time 34.3 SECONDS Prothromb Time International Ratio 3.1 Assessment & Plan PAROXYSMAL ATRIAL FIBRILLATION / FLUTTER Had ongoing issues with PAF with rapid ventricular response. Cardiology consulted. Sotalol dose increased to 120 mg twice a day, but patient continued to have paroxysmal atrial fibrillation/flutter. Sotalol discontinued. Antiarrhythmic therapy with amiodarone initiated. Discharged on amiodarone 200 mg BID + metoprolol tartrate 25 mg BID. Continue warfarin with close monitoring in light of addition of amiodarone. LLE PAIN S/P BKA; presented with worsening pain left residual limb. Initially there were concerns about possible osteomyelitis left residual tibia per MRI, but no fever, leukocytosis. ESR normal. C-reactive protein normal. Ortho consulted; MRI findings may represent stress reaction rather than infection. Advised not to use prosthesis until instructed to do so by Ortho. Antibiotics discontinued. No signs of fever or other signs/symptoms of infection. Titrated analgesics. Increased oxycodone IR to 20 mg Q6 hrs PRN. Increase gabapentin dose to 1200 mg TID. Wean analgesics as tolerated. HYPERTENSION Hemodynamically stable. Continue amlodipine. ABDOMINAL PAIN Experienced abdominal pain 08/20. Exam benign. No nausea, vomiting, diarrhea. Postvoid bladder scan ~ 200 ml. Pain improved after straight cath. URINARY RETENTION Postvoid bladder scan ~ 200 ml. Narcotic analgesics may be contributing to urinary retention. Now voiding without difficulty. VTE PROPHYLAXIS On warfarin with fluctuating. Received SQ enoxaparin when warfarin subtherapeutic. INR day of discharge 3.1. Rising INR probably due to addition of amiodarone. Warfarin held 08/24. Discharge dose of warfarin 5 mg daily starting 08/25. DISPOSITION Discharge to home. Family Medicine follow-up with Dr. Tai. Cardiology follow-up with Dr. Kinsey. Orthopedics follow-up at [facility]. . Current Inpatient Medications: Current Inpatient Medications Medications (Trade) Dose Ordered Sig/Rosa Route Start Time Stop Time Status Last Admin Dose Admin Amlodipine Besylate (Norvasc Tab) 10 mg DAILY PO 08/16/17 09:00 09/15/17 08:59 08/24/17 08:00 10 MG Aspirin (Ecotrin Tab) 81 mg DAILY PO 08/16/17 09:00 09/15/17 08:59 08/24/17 08:00 81 MG Atorvastatin Calcium (Lipitor Tab) 80 mg HS PO 08/15/17 21:00 09/14/17 20:59 08/23/17 21:36 80 MG Bupropion HCl (Wellbutrin-Xl Tab) 150 mg DAILY PO 08/16/17 09:00 09/15/17 08:59 08/24/17 08:03 150 MG Clopidogrel Bisulfate (plAVix TAB) 75 mg DAILY PO 08/16/17 09:00 09/15/17 08:59 08/24/17 08:00 75 MG Fluoxetine HCl (Prozac Cap) 20 mg DAILY PO 08/16/17 09:00 09/15/17 08:59 08/24/17 08:03 20 MG Ondansetron HCl (Zofran Tab) 8 mg Q8 PRN PO 08/15/17 18:15 09/14/17 18:14 08/24/17 13:31 8 MG Pantoprazole Sodium (Protonix Tab) 40 mg DAILY PO 08/16/17 09:00 09/15/17 08:59 08/24/17 08:01 40 MG Zolpidem Tartrate (Ambien Tab) 5 mg HS PRN PO 08/15/17 18:15 09/14/17 18:14 08/23/17 21:42 5 MG Ranitidine HCl (zANTac TAB) 300 mg HS PO 08/15/17 21:00 09/14/17 20:59 08/23/17 21:37 300 MG Senna (Senokot Tab) 8.6 mg BID PO 08/15/17 21:00 09/14/17 20:59 08/23/17 21:34 8.6 MG Hydromorphone HCl (Dilaudid Inj) 1 mg Q3H PRN IV 08/17/17 10:15 08/31/17 10:14 08/22/17 03:36 1 MG Oxycodone HCl (Roxicodone Immediate Rel Tab) 20 mg Q6H PRN PO 08/17/17 10:15 08/31/17 10:14 08/24/17 14:49 20 MG Metoprolol Tartrate (Lopressor Iv) 5 mg Q4 PRN IV 08/20/17 09:00 09/19/17 08:59 Al Hydroxide/Mg Hydroxide (Maalox Susp) 30 ml Q6H PRN PO 08/20/17 09:00 09/19/17 08:59 08/21/17 06:44 30 ML Warfarin Sodium (Coumadin Tab) 5 mg DAILY@16 PO 08/23/17 16:00 09/22/17 15:59 Future Hold 08/23/17 16:03 5 MG Metoprolol Tartrate (Lopressor Tab) 25 mg BID PO 08/23/17 21:00 09/22/17 20:59 08/24/17 08:01 25 MG Gabapentin (Neurontin Cap) 1,200 mg TID PO 08/23/17 21:00 09/22/17 20:59 08/24/17 13:32 1,200 MG Amiodarone HCl (Cordarone Tab) 200 mg BID PO 08/24/17 21:00 09/23/17 20:59
[2017-08-24] MEDS ORDERED: GABA1CAP4 PO ×2 (15:32→15:40)
[2017-08-24] MEDS ORDERED: CRD200 PO (15:40)
[2017-08-24] MEDS ORDERED: METO25TA56 PO (15:40)
[2017-08-24] MEDS ORDERED: OXYC20TA32 PO (15:40)
[2017-08-24 15:45] VITALS: BP 100/67; PULSE 59; TEMP 36.7; O2SAT 96
[2017-08-24 15:52] VITALS: BP 95/56; PULSE 69; TEMP 36.6; O2SAT 95
--- NOTE | 2017-08-24 15:52 | Discharge Instructions ---
Discharge Instructions Date of Service Aug 24, 2017. Admission Reason for Admission: pain left leg, atrial fibrillation . Discharge Discharge Diagnosis / Problem: pain left leg, atrial fibrillation Discharge Goals Goal(s): Decrease discomfort, Improve disease control Activity Recommendations Activity Limitations: as noted below do not use prosthesis for left leg until Orthopedic surgeon says OK . . Instructions / Follow-Up Instructions / Follow-Up APPOINTMENTS: ORTHOPEDICS [facility] 08/25/17 [facility] 08/30/2017 11:00 AM Fabio Tai MD CARDIOLOGY 09/15/2017 1:45 PM Tex Kinsey, DO OTHER INSTRUCTIONS: There were no definite indications of infection in your left leg. Increase gabapentin (Neurontin) to 1200 mg 3 times a day for better pain control. Increase oxycodone to 20 mg every 6 hours as needed for severe pain. Do not wear your prosthesis until instructed to do so by Orthopedic Surgery. Your atrial fibrillation was acting up. Dr. Kinsey would like you to stop sotalol (Betapace) and start: amiodarone (Pacerone or Cordarone) 200 mg twice a day metoprolol tartrate (Lopressor) 25 mg twice a day Amiodarone can interact with warfarin. New warfarin dose is 5 mg daily starting on 08/25/17, then as directed by [facility]. Seek medical attention if you have: * temperature above 101 * chest pain or trouble breathing * abdominal pain, nausea, vomiting * diarrhea, dark stools or bloody stools * redness or drainage from left leg * any unanswered questions or concerns Call 911 if symptoms are severe. Call if you have any questions or problems. My cell # is [phone]. You can also reach a [facility] hospitalist on duty at [facility] 24 hours a day by calling [phone]. Please take good care of yourself. Mehdi García . Current Hospital Diet Patient's current hospital diet: AHA Diet (Heart Healthy), Low Sodium Diet (2gm Na) Discharge Diet Recommended Diet: AHA Diet (Heart Healthy) Pending Studies Studies pending at discharge: no Medical Emergencies . Who to Call and When: Medical Emergencies: If at any time you feel your situation is an emergency, please call 911 immediately. . Non-Emergent Contact Non-Emergency issues call your: Primary Care Provider, Firer Watertender, Hospital Doctor, Surgeon . . "Provider Documentation" section prepared by Mehdi García. . VTE Core Measure Inpt VTE Proph given/why not?: Enoxaparin (Lovenox)SQ, Warfarin (Coumadin) [place] Drug Monitoring Program Search Results: patient reviewed within database, no issues identified
--- NOTE | 2017-08-24 17:01 | Discharge Summary ---
Discharge Summary Date of Service Aug 24, 2017. Discharge Summary Admission Date: Aug 15, 2017 at 17:39 Discharge Date: Aug 24, 2017 Discharge Disposition: Home Principal Diagnosis: paroxysmal atrial fibrillation with rapid ventricular response OTHER ACUTE DIAGNOSES: BKA with pain left residual limb . Secondary Diagnoses/Problems: Chronic and Resolved Medical Problems: (1) Depression Status: Chronic (2) Dyslipidemia Status: Chronic (3) HTN (hypertension) Status: Chronic (4) Paroxysmal atrial fibrillation Status: Chronic (5) PVD (peripheral vascular disease) Status: Chronic Surgical Problems: (1) H/O vascular surgery Permanent Comment: bilateral femoral endarterectomy with iliac stent 10/02/2016 Dr. Dharmesh Omalley, [facility] Status: Chronic (2) History of appendectomy Status: Chronic (3) Status post below knee amputation of left lower extremity Status: Chronic (4) Status post ORIF of fracture of ankle Permanent Comment: 12/18/16- ORIF closed displaced trimalleolar left ankle fracture; Dr. Fischer Status: Chronic . Procedures: cardiac monitoring IV meds MRI left lower extremity . Consultations: ID with Dr. Forde Orthopedics with Dr. Gan Cardiology with Drs. Martinez and Tio . Medication Reconciliation New Medications: Amiodarone HCl (Amiodarone HCl) 200 Mg Tab 200 MG PO BID, #60 TAB 5 Refills Gabapentin (Gabapentin) 300 Mg Cap 1200 MG PO TID, #360 CAP 5 Refills Metoprolol Tartrate (Lopressor) (Lopressor) 25 Mg Tab 25 MG PO BID, #60 TAB 5 Refills Oxycodone Hcl (Oxycodone Hcl) 20 Mg Tab 20 MG PO Q6 PRN for Pain, #40 TAB Continued Medications: Amlodipine (Norvasc) 10 Mg Tab 10 MG PO DAILY, TAB Aspirin (Aspirin Ec) 81 Mg Tab 81 MG PO DAILY Atorvastatin (Lipitor) 80 Mg Tab 80 MG PO HS, TAB Bupropion Hcl (Wellbutrin Xl) 150 Mg Tab 150 MG PO DAILY Clopidogrel (Plavix) 75 Mg Tab 75 MG PO DAILY, TAB Fluoxetine (Prozac) 20 Mg Cap 20 MG PO DAILY, CAP Ondansetron Hcl (Zofran) 8 Mg Tab 8 MG PO PRN for Nausea, TAB Pantoprazole (Protonix) 40 Mg Tab 40 MG PO DAILY, TAB Ranitidine (Zantac) 300 Mg Tab 300 MG PO HS, TAB Warfarin Sod (Jantoven) 5 Mg Tab 0 PO UD, TAB New dose starting 08/25/17 is 5 mg daily. Zolpidem Tartrate (Ambien) 5 Mg Tab 5 MG PO HS PRN for Sleep Discontinued Medications: Gabapentin (Gabapentin) 300 Mg Cap 900 MG PO TID, CAP Oxycodone HCl (Oxycodone HCl) 5 Mg Tab 5-10 MG PO Q4 PRN for Pain Sotalol Hcl (Sotalol Hcl) 80 Mg Tab 80 MG PO BID for 90 Days, #180 TAB 3 Refills Admission Information HPI (per Admitting provider): This is a 57 year old F with history of lower left extremity below knee amputation with subsequent medical complications of acute liver failure for which she presented to [facility] on 05/21/17 for which she then required emergency airlift to [facility] in [place] and it has been suspected that that cause of the acute liver failure was from Amoxicillin/Clavulanic for which patient was receiving to treat infections of left lower extremity. Patient presents to the ED because of pain of her left lower extremity at the stump below the knee. There is no obvious drainage or fluctuance however there are areas of tenderness down the knee and of the round area of the stump. Patient received X ray in the ED to rule out evidence of osteomyelitis because of the leg pain. In the process of doing the X ray, patient's heart rate went into rapid ventricular response with her history of chronic atrial fibrillation. Patient was then admitted to hospitalist medicine as ED physician was concerned that patient's rapid heart rate may have been a sign of sepsis from an underlying infection of the left stump because of the pain symptoms despite negative X ray imaging for osteomyelitis, and the presence of lactic acid of 3.7. Patient was given Vancomycin and Zosyn in the ED by ED provider When examined by hospitalist medicine physician. Patient denied feeling palpitations or chest pain or shortness of breath while with afib RVR. Breathing comfortably on room air. Patient also reports that because of her leg pain, she stopped taking all of her medications including sotalol for her heart. Before Sotalol dose was given, patient's tachycardia resolved and heart rate under 100 beats per minute when she was admitted to telemetry floor. In regards to the atrial fibrillation, patient's INR of 1.3 INR despite her taking 7.5 mg every Wednesday and Wednesday and 5 mg daily on other days. Lovenox 1 mg/kg BID ordered In addition, patient's inflammatory markers with ESR 12 and CRP less than 0.29 are not suggestive of osteomyelitis. Procalcitonin levels pending . Physical Exam (per Admitting): General Appearance: no apparent distress Head: normocephalic, atraumatic Eyes: normal inspection, EOMI, sclerae normal ENT: normal ENT inspection, hearing grossly normal, pharynx normal Neck: supple, no JVD, trachea midline Respiratory/Chest: chest non-tender, lungs clear, normal breath sounds, no respiratory distress, no accessory muscle use Cardiovascular: no edema, normal peripheral pulses, + tachycardia (Afib with RVR in the ED with tachycardia resolved in the medical wards), + irregularly irregular Abdomen/GI: normal bowel sounds, non tender, soft, no pulsatile mass Back: normal inspection, no CVA tenderness, no muscle spasm, normal range of motion Extremities/Musculoskelatal: no calf tenderness, normal range of motion, + pertinent finding (no obvious drainage or fluctuance however there are areas of tenderness down the left knee and of the round area of the left stump) Neurologic/Psych: no motor/sensory deficits, alert, normal mood/affect, oriented x 3 Skin: normal color, warm/dry, no rash Hospital Course PAROXYSMAL ATRIAL FIBRILLATION / FLUTTER Had ongoing issues with PAF with rapid ventricular response. Cardiology consulted. Sotalol dose increased to 120 mg twice a day, but patient continued to have paroxysmal atrial fibrillation/flutter. Sotalol discontinued. Antiarrhythmic therapy with amiodarone initiated. Discharged on amiodarone 200 mg BID + metoprolol tartrate 25 mg BID. Continue warfarin with close monitoring in light of addition of amiodarone. LLE PAIN S/P BKA; presented with worsening pain left residual limb. Initially there were concerns about possible osteomyelitis left residual tibia per MRI, but no fever, leukocytosis. ESR normal. C-reactive protein normal. Ortho consulted; MRI findings may represent stress reaction rather than infection. Advised not to use prosthesis until instructed to do so by Ortho. Antibiotics discontinued. No signs of fever or other signs/symptoms of infection. Titrated analgesics. Increased oxycodone IR to 20 mg Q6 hrs PRN. Increase gabapentin dose to 1200 mg TID. Wean analgesics as tolerated. HYPERTENSION Hemodynamically stable. Continue amlodipine. ABDOMINAL PAIN Experienced abdominal pain 08/20. Exam benign. No nausea, vomiting, diarrhea. Postvoid bladder scan ~ 200 ml. Pain improved after straight cath. URINARY RETENTION Postvoid bladder scan ~ 200 ml. Narcotic analgesics may be contributing to urinary retention. Now voiding without difficulty. VTE PROPHYLAXIS On warfarin with fluctuating. Received SQ enoxaparin when warfarin subtherapeutic. INR day of discharge 3.1. Rising INR probably due to addition of amiodarone. Warfarin held 08/24. Discharge dose of warfarin 5 mg daily starting 08/25. DISPOSITION Discharge to home. Family Medicine follow-up with Dr. Tai. Cardiology follow-up with Dr. Kinsey. Orthopedics follow-up at [facility]. . Total time spent on discharge = 40 min. This includes examination of the patient, discharge planning, medication reconciliation, and communication with other providers. . Discharge Instructions Date of Service Aug 24, 2017. Admission Reason for Admission: pain left leg, atrial fibrillation . Discharge Discharge Diagnosis / Problem: pain left leg, atrial fibrillation Discharge Goals Goal(s): Decrease discomfort, Improve disease control Activity Recommendations Activity Limitations: as noted below do not use prosthesis for left leg until Orthopedic surgeon says OK . . Instructions / Follow-Up Instructions / Follow-Up APPOINTMENTS: ORTHOPEDICS [facility] 08/25/17 [facility] 08/30/2017 11:00 AM Fabio Tai MD CARDIOLOGY 09/15/2017 1:45 PM Tex Kinsey, DO OTHER INSTRUCTIONS: There were no definite indications of infection in your left leg. Increase gabapentin (Neurontin) to 1200 mg 3 times a day for better pain control. Increase oxycodone to 20 mg every 6 hours as needed for severe pain. Do not wear your prosthesis until instructed to do so by Orthopedic Surgery. Your atrial fibrillation was acting up. Dr. Kinsey would like you to stop sotalol (Betapace) and start: amiodarone (Pacerone or Cordarone) 200 mg twice a day metoprolol tartrate (Lopressor) 25 mg twice a day Amiodarone can interact with warfarin. New warfarin dose is 5 mg daily starting on 08/25/17, then as directed by [facility]. Seek medical attention if you have: * temperature above 101 * chest pain or trouble breathing * abdominal pain, nausea, vomiting * diarrhea, dark stools or bloody stools * redness or drainage from left leg * any unanswered questions or concerns Call 911 if symptoms are severe. Call if you have any questions or problems. My cell # is [phone]. You can also reach a [facility] hospitalist on duty at [facility] 24 hours a day by calling [phone]. Please take good care of yourself. Mehdi García . Current Hospital Diet Patient's current hospital diet: AHA Diet (Heart Healthy), Low Sodium Diet (2gm Na) Discharge Diet Recommended Diet: AHA Diet (Heart Healthy) Pending Studies Studies pending at discharge: no Medical Emergencies . Who to Call and When: Medical Emergencies: If at any time you feel your situation is an emergency, please call 911 immediately. . Non-Emergent Contact Non-Emergency issues call your: Primary Care Provider, Information Services Consultant, Hospital Doctor, Surgeon . . "Provider Documentation" section prepared by Mehdi García. . VTE Core Measure Inpt VTE Proph given/why not?: Enoxaparin (Lovenox)SQ, Warfarin (Coumadin) [place] Drug Monitoring [place] Search Results: patient reviewed within database, no issues identified . Additional Copies To Tex Kinsey D.O.; Fabio Tai M.D.; Enrique Gan M.D.
[2017-08-24] MEDS ORDERED: AMIODARONE 200 MG TAB PO SCH (21:00)
== END 2017-08-24 16:22 | disposition home or self-care (01) | DRG 309 ==
LOC: C.EDB 13:36 → C.2E 17:39 → ENRESERV 17:58
PROVIDERS: ADMIT Hospitalist; ATTEND Hospitalist
DX: I48.0 Paroxysmal atrial fibrillation (principal); M86.8X6 Other osteomyelitis, lower leg; S82.851S Displaced trimalleolar fracture of right lower leg, sequela; T87.89 Other complications of amputation stump; I73.9 Peripheral vascular disease, unspecified; E78.5 Hyperlipidemia, unspecified; I10 Essential (primary) hypertension; Z89.512 Acquired absence of left leg below knee; Z87.891 Personal history of nicotine dependence; Z79.82 Long term (current) use of aspirin; F32.9 Major depressive disorder, single episode, unspecified; Y83.5 Amputation of limb(s) as the cause of abnormal reaction of the patient, or of later complication, without mention of misadventure at the time of the procedure; Y92.019 Unspecified place in single-family (private) house as the place of occurrence of the external cause; R33.9 Retention of urine, unspecified; X58.XXXS Exposure to other specified factors, sequela

== ENCOUNTER 2017-09-24 10:30 | Emergency (ER) | payer BC ==
[~2017-09-24 10:30] MED LIST changes: -ACET-1138 PO; -AMLO-114 PO; -AMOX875T PO; -ASPI81TA28 PO; -BTP80 PO; -CLOP1TAB15 PO; +CRD200 PO; -DRGTP12 TD; +GABA-1219 PO; +METO25TA56 PO; +ONDA-170 PO; -ONDA8TAB6 PO; +OXYC20TA32 PO; -PANT40TA PO; -RANI300T2 PO; -RXC5 PO
[2017-09-24 10:33] VITALS: TEMP 36.4; Ht 160 cm
[2017-09-24] MEDS ORDERED: SODIUM CHLORIDE 0.9% 1000ML 1,000 ML IV STA (10:44)
[2017-09-24] MEDS ORDERED: ONDANSETRON INJ 2 MG/ML 2 ML VIAL IV STA (10:44)
--- NOTE | 2017-09-24 11:10 | EMERGENCY ROOM VISIT NOTE ---
History Report prepared by Florencia: Margarita Ospina Under the Supervision of: Dr. Mj Dozier D.O. First contact with patient: 10:38 Chief Complaint: RESPIRATORY PROBLEMS Stated Complaint: CAN'T BREATHE, VOMITING History of Present Illness The patient is a 57 year old female who presents to the Emergency Room with complaints of persistent abdominal pain that began a day ago. The patient states she has chest pain that worsens with talking and exertion and lower back pain. She notes her chest pain is similar to her atrial fibrillation. The patient notes she has been vomiting since yesterday. The patient denies any urinary symptoms. She denies any history of diverticulitis, diverticulosis, pancreatis, or cholecystitis. The patient states she has a right below the knee amputation, noting she has been experiencing pain near the incision site. She notes she was a heavy drinker in the past. The patient takes Coumadin. She notes the last time she saw her PCP was a few weeks ago. Source of History: patient Onset: one day ago Position: abdomen Quality: other (abdominal pain) Timing: other (persistent) Associated Symptoms: + chest pain, + vomiting, + back pain, No urinary symptoms Review of Systems See HPI for pertinent positives & negatives. A total of 10 systems reviewed and were otherwise negative. 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 (12) Osteomyelitis of left fibula (13) Paroxysmal atrial fibrillation (14) PVD (peripheral vascular disease) (15) SOB (shortness of breath) (16) Surgical wound infection Surgical Problems: (1) H/O vascular surgery (2) History of appendectomy (3) Status post below knee amputation of left lower extremity (4) Status post ORIF of fracture of ankle Family History Hypertension FATHER MOTHER Social History Smoking Status: Current Every Day Smoker Alcohol Use: occasionally Drug Use: none Marital Status: Housing Status: lives with family Occupation Status: disabled Current/Historical Medications Scheduled Amiodarone Hcl (Cordarone), 200 MG PO DAILY Amlodipine (Norvasc), 10 MG PO DAILY Aspirin (Aspirin Ec), 81 MG PO DAILY Atorvastatin (Lipitor), 80 MG PO HS Clopidogrel (Plavix), 75 MG PO DAILY Fluoxetine (Prozac), 20 MG PO DAILY Gabapentin (Gabapentin), 1,200 MG PO TID Metoprolol Tartrate (Lopressor) (Lopressor), 25 MG PO BID Pantoprazole (Protonix), 40 MG PO DAILY Ranitidine (Zantac), 300 MG PO HS Warfarin Sod (Jantoven), 5 MG PO DAILY Warfarin Sod (Jantoven), 7.5 MG PO DAILY Scheduled PRN Ondansetron Odt (Zofran Odt), 8 MG SL Q8 PRN for Nausea Oxycodone Ir (Roxicodone Ir), 10-20 MG PO Q6 PRN for Pain Promethazine (Phenergan Suppository), [address] Q6H PRN for Nausea Allergies Coded Allergies: Amoxicillin (Verified Allergy, Severe, LIVER FAILURE, 09/24/17) Clavulanic Acid (Verified Allergy, Severe, LIVER FAILURE, 09/24/17) Adhesives (Verified Allergy, Mild, 09/24/17) Acetaminophen (Verified Allergy, Unknown, LIVER DAMAGE-DUE TO FAILURE, ) Guanfacine (Verified Allergy, Unknown, 09/24/17) Nifedipine (Verified Allergy, Unknown, 09/24/17) Physical Exam Vital Signs Date Time Temp Pulse Resp B/P (MAP) Pulse Ox O2 Delivery O2 Flow Rate FiO2 09/24/17 14:19 76 18 151/77 96 Room Air 09/24/17 12:27 73 14 153/81 95 09/24/17 12:11 72 09/24/17 10:47 99 Room Air 09/24/17 10:33 36.4 78 22 140/87 100 Room Air Physical Exam GENERAL: Patient is awake, alert, and in no acute distress. Patient is resting comfortably and showing no signs of anxiety EYES: The conjunctivae are clear. The pupils are round and reactive. EARS, NOSE, MOUTH AND THROAT: The nose is without any evidence of any deformity. Mucous membranes are moist tongue is midline NECK: The neck is nontender and supple. RESPIRATORY: Normal respiratory effort is noted there is no evidence of wheezing rhonchi or rales CARDIOVASCULAR: Regular rate and rhythm noted there no murmurs rubs or gallops normal S1 normal S2 GASTROINTESTINAL: Mildly distended. The abdomen is soft. Left upper and lower quadrant tenderness to palpitation, but no guarding or rigidity. Bowel sounds are present in all quadrants. PELVIS: The Pelvis is stable. No tenderness to palpation is noted. BACK: Left CVA tenderness to percussion. Range of motion intact. No midline tenderness noted. MUSCULOSKELETAL/EXTREMITIES: Left below the knee amputation noted, no warmth, erythema, or swelling appreciated. There is no evidence of gross deformity full range of motion is noted in the hips and shoulders SKIN: There is no obvious evidence of any rash. There are no petechiae, pallor or cyanosis noted. NEUROLOGIC: Patient is awake alert and oriented x3 Medical Decision & Procedures ER Provider Diagnostic Interpretation: Radiology results as stated below per my review and radiologist interpretation: SINGLE VIEW CHEST CLINICAL HISTORY: Generalized abdominal pain. FINDINGS: An AP, portable, upright chest radiograph is compared to study dated 08/16/2017. The examination is degraded by portable technique and patient rotation. The cardiomediastinal silhouette is unremarkable. There is mild atherosclerotic calcification of the thoracic aorta. Calcified granulomas are again seen in the right midlung. The lungs and pleural spaces are otherwise clear. No pneumothorax is seen. The skeletal structures are osteopenic. The bony thorax is grossly intact. IMPRESSION: No acute cardiopulmonary abnormality. Electronically signed by: Angus Marte M.D. 09/24/2017 11:11 AM Dictated Date/Time: 09/24/2017 11:[address] SCAN OF THE ABDOMEN AND PELVIS WITHOUT IV CONTRAST CLINICAL HISTORY: Left flank pain. COMPARISON STUDY: Abdominal CT dated 05/21/2017. TECHNIQUE: CT scan of the abdomen and pelvis is performed from the lung bases to the proximal femora. Images are reviewed in the axial, sagittal, and coronal planes. IV contrast was not administered for this examination as per the referring clinician. A dose lowering technique was utilized adhering to the principles of ALARA. CT DOSE: 462.35 mGycm FINDINGS: Lung bases: The heart is normal in size and without pericardial effusion. Emphysematous change is suggested. No airspace consolidation or pleural effusion is identified. There is a tiny hiatal hernia. Liver: The unenhanced liver is normal in size, contour, and attenuation. There is no intrahepatic biliary ductal dilatation. Gallbladder: Unremarkable. Spleen: Normal in size and attenuation. Calcified splenic granulomas are observed. Pancreas: The unenhanced pancreas is moderately atrophic and grossly unremarkable. Adrenal glands: A 2.8 cm left adrenal nodule is unchanged from previous and meets CT criteria for a fat-containing adenoma. The right adrenal gland is unremarkable. Kidneys: The unenhanced kidneys demonstrate cortical atrophy and are without hydronephrosis. There are small renovascular calcifications. There are no renal calculi identified. There is no evidence of contour deforming renal mass lesion. Abdominal vasculature: The abdominal aorta is normal in course and caliber noting advanced atherosclerotic calcification. Bilateral iliac artery stents are observed. Postoperative change in the groin bilaterally may be related to previous bypass grafting. Bowel: There is mild to moderate colonic diverticulosis without CT evidence of acute diverticulitis. No bowel obstruction is seen. The appendix is not identified and reported surgically absent. Peritoneum: There is no intraperitoneal free air or abdominal ascites. Lymphadenopathy: None. Pelvic viscera: The bladder, uterus, and adnexa are normal as visualized. Findings suggest pelvic floor prolapse. Skeletal structures: The skeletal structures are osteopenic. There is mild lumbosacral spondylosis and scoliosis. No lytic or blastic lesions are seen. IMPRESSION: 1. There are no acute infectious or inflammatory findings in the abdomen or pelvis. 2. Mild to moderate colonic diverticulosis without CT evidence of acute diverticulitis. 3. Suspect emphysema. 4. Advanced atherosclerotic disease is identified. 5. Additional findings as discussed above. Electronically signed by: Angus Marte M.D. 09/24/2017 12:31 PM Dictated Date/Time: 09/24/2017 12:24 PM Laboratory Results 09/24/17 11:30 Red Blood Count 5.00, Mean Corpuscular Volume 85.2, Mean Corpuscular Hemoglobin 30.4, Mean Corpuscular Hemoglobin Concent 35.7, Mean Platelet Volume 10.7, Neutrophils (%) (Auto) 66.7, Lymphocytes (%) (Auto) 22.9, Monocytes (%) (Auto) 9.2, Eosinophils (%) (Auto) 0.5, Basophils (%) (Auto) 0.6, Neutrophils # (Auto) 5.39, Lymphocytes # (Auto) 1.85, Monocytes # (Auto) 0.74, Eosinophils # (Auto) 0.04, Basophils # (Auto) 0.05 09/24/17 11:30 Test 09/24/17 11:30 09/24/17 13:35 White Blood Count 8.08 K/uL (4.8-10.8) Red Blood Count 5.00 M/uL (4.2-5.4) Hemoglobin 15.2 g/dL (12.0-16.0) Hematocrit 42.6 % (37-47) Mean Corpuscular Volume 85.2 fL (80-100) Mean Corpuscular Hemoglobin 30.4 pg (25-34) Mean Corpuscular Hemoglobin Concent 35.7 g/dl (32-36) Platelet Count 237 K/uL (130-400) Mean Platelet Volume 10.7 fL (7.4-10.4) Neutrophils (%) (Auto) 66.7 % Lymphocytes (%) (Auto) 22.9 % Monocytes (%) (Auto) 9.2 % Eosinophils (%) (Auto) 0.5 % Basophils (%) (Auto) 0.6 % Neutrophils # (Auto) 5.39 K/uL (1.4-6.5) Lymphocytes # (Auto) 1.85 K/uL (1.2-3.4) Monocytes # (Auto) 0.74 K/uL (0.11-0.59) Eosinophils # (Auto) 0.04 K/uL (0-0.5) Basophils # (Auto) 0.05 K/uL (0-0.2) RDW Standard Deviation 50.4 fL (36.4-46.3) RDW Coefficient of Variation 16.4 % (11.5-14.5) Immature Granulocyte % (Auto) 0.1 % Immature Granulocyte # (Auto) 0.01 K/uL (0.00-0.02) Prothrombin Time 33.3 SECONDS (9.0-12.0) Prothromb Time International Ratio 3.2 (0.9-1.1) Activated Partial Thromboplast Time 41.5 SECONDS (21.0-31.0) Partial Thromboplastin Ratio 1.6 Anion Gap 9.0 mmol/L (3-11) Estimated GFR () 80.1 Estimated GFR (Non- 69.1 BUN/Creatinine Ratio 7.8 (10-20) Calcium Level 8.6 mg/dl (8.5-10.1) Total Bilirubin 0.8 mg/dl (0.2-1) Direct Bilirubin mg/dl (0-0.2) Aspartate Amino Transf (AST/SGOT) U/L (15-37) Alanine Aminotransferase (ALT/SGPT) 27 U/L (12-78) Alkaline Phosphatase 128 U/L (45-117) Troponin I < 0.015 ng/ml (0-0.045) Total Protein 8.2 gm/dl (6.4-8.2) Albumin 3.7 gm/dl (3.4-5.0) Lipase 194 U/L (73-393) Urine Color YELLOW Urine Appearance CLEAR (CLEAR) Urine pH 7.5 (4.5-7.5) Urine Specific [place] 1.008 (1.000-1.030) Urine Protein NEG (NEG) Urine Glucose (UA) NEG (NEG) Urine Ketones NEG (NEG) Urine Occult Blood TRACE (NEG) Urine Nitrite NEG (NEG) Urine Bilirubin NEG (NEG) Urine Urobilinogen NEG (NEG) Urine Leukocyte Esterase TRACE (NEG) Urine WBC (Auto) 0 /hpf (0-5) Urine RBC (Auto) 0-4 /hpf (0-4) Urine Hyaline Casts (Auto) 1-5 /lpf (0-5) Urine Epithelial Cells (Auto) 20-30 /lpf (0-5) Urine Bacteria (Auto) NEG (NEG) Laboratory results per my review. Medications Administered Medications (Trade) Dose Ordered Sig/Rosa Route Start Time Stop Time Status Last Admin Dose Admin Sodium Chloride 1,000 ml @ 999 mls/hr Q1H1M STAT IV 09/24/17 10:44 09/24/17 11:44 DC 09/24/17 10:44 999 MLS/HR Ondansetron HCl (Zofran Inj) 4 mg NOW STAT IV 09/24/17 10:44 09/24/17 10:46 DC 09/24/17 11:37 4 MG Hydromorphone HCl (Dilaudid Inj) 1 mg Q30M PRN IV 09/24/17 10:45 09/24/17 15:48 DC 09/24/17 12:31 1 MG ECG Indication: abdominal pain Rate (beats per minute): 72 Rhythm: normal sinus Findings: no ectopy, other (No acute ST changes) Change: no significant change (11/17/17) ED Course 1041: The patient was evaluated in room C4. A complete history and physical examination were performed. 1044: Ordered Sodium Chloride 1000ml@ 999mls/hr IV and Zofran Inj 4mg IV. 1045: Ordered Dilaudid Inj 1mg IV. 1323: I reevaluated the patient, who was resting comfortably. She was willing to give a urine sample via catheter. 1410: Upon reevaluation, the patient is feeling significantly better. I discussed the results and treatment plan with her. She verbalized agreement of the treatment plan. She was discharged home. Medical Decision Prior records/ancillary studies reviewed. Triage Nursing notes reviewed. The patient's history was concerning for abdominal pain. Differential diagnosis: Etiologies such as appendicitis, diverticulitis, PUD, biliary pathology, UTI, pancreatitis, obstruction, mesenteric ischemia, aortic pathology, infections, inflammatory bowel disease, renal colic, as well as others were entertained. The patient is a 57-year-old female who presented to the emergency department for an evaluation of nausea and vomiting. The patient is on pain medication and states that she's not been able to keep her pain medication down because of severe nausea vomiting. For this reason she presented to the emergency department. She states that she also has been noticing some abdominal tenderness. She is unsure if this is related to the nausea vomiting. The patient was treated with IV fluids IV pain medicine and IV antiemetics. She was reevaluated multiple times. I discussed the patient's laboratory and radiographic studies with her. She was feeling much better on subsequent reevaluation. The patient was found have hyponatremia. I discussed the patient' s follow-up with her. She states that she's had hyponatremia in the past. She was encouraged to follow-up with her family doctor for repeat laboratory studies but also return to the emergency department immediately if symptoms change worsen or the need arises. Medication Reconcilliation Current Medication List: was personally reviewed by me Blood Pressure Screening Patient's blood pressure: Elevated blood pressure Blood pressure disposition: Elevated BP felt to be situational Impression Primary Impression: Abdominal pain Additional Impressions: Vomiting Hyponatremia Scribe Attestation The scribe's documentation has been prepared under my direction and personally reviewed by me in its entirety. I confirm that the note above accurately reflects all work, treatment, procedures, and medical decision making performed by me. Departure Information Dispostion Home / Self-Care Prescriptions Promethazine (Phenergan Suppository) [address] Q6H Y for Nausea, #10 SUPP Prov: Mj Dozier, DO 09/24/17 Referrals Fabio Tai M.D. (PCP) Forms HOME CARE DOCUMENTATION FORM, IMPORTANT VISIT INFORMATION, WORK / SCHOOL INSTRUCTIONS Patient Instructions My [facility] Additional Instructions Continue all medications as prescribed. Call your family to schedule a follow-up appointment. You may require repeat laboratory studies to evaluate any improvement or changes in your electrolytes. Return to the emergency department immediately if symptoms change worsen or the need arises. Problem Qualifiers Primary Impression: Abdominal pain Abdominal location: generalized Qualified Codes: R10.84 - Generalized abdominal pain Additional Impressions: Vomiting Vomiting type: unspecified Vomiting Intractability: non-intractable Nausea presence: with nausea Qualified Codes: R11.2 - Nausea with vomiting, unspecified
[2017-09-24] MEDS: HYDROmorphone INJ 1 MG/ML SYR IV PRN ×2 (11:38→12:31)
[2017-09-24 11:54] LABS: BASO % 0.6 %; BASO ABS # 0.05 K/uL (0-0.2); EOS % 0.5 %; EOS ABS # 0.04 K/uL (0-0.5); HEMATOCRIT 42.6 % (37-47); HEMOGLOBIN 15.2 g/dL (12.0-16.0); IG# 0.01 K/uL (0.00-0.02); LYMPH % 22.9 %; LYMPH ABS # 1.85 K/uL (1.2-3.4); MEAN CELL VOLUME 85.2 fL (80-100); MEAN CORPUSCULAR HEMOGLOBIN 30.4 pg (25-34); MEAN CORPUSCULAR HGB CONC 35.7 g/dl (32-36); MEAN PLATELET VOLUME 10.7 fL (7.4-10.4); MONO % 9.2 %; MONO ABS # 0.74 K/uL (0.11-0.59); NEUT % 66.7 %; NEUT ABS # 5.39 K/uL (1.4-6.5); PLATELET COUNT 237 K/uL (130-400); RED CELL DISTRIBUTION WIDTH CV 16.4 % (11.5-14.5); RED CELL DISTRIBUTION WIDTH SD 50.4 fL (36.4-46.3); WHITE BLOOD COUNT 8.08 K/uL (4.8-10.8)
[2017-09-24 12:04] LABS: INR 3.2 (0.9-1.1); PTT PATIENT 41.5 SECONDS (21.0-31.0)
[2017-09-24] MEDS ORDERED: ONDA8TAB62 SL (12:04)
[2017-09-24] MEDS ORDERED: OXYC-90 PO (12:04)
[2017-09-24] MEDS ORDERED: WARF5TAB7 PO (12:07)
[2017-09-24] MEDS ORDERED: WARF7.5T4 PO (12:07)
[2017-09-24 12:17] LABS: ALBUMIN 3.7 gm/dl (3.4-5.0); ALT/SGPT 27 U/L (12-78); BLOOD UREA NITROGEN 7 mg/dl (7-18); CALCIUM 8.6 mg/dl (8.5-10.1); CARBON DIOXIDE 26 mmol/L (21-32); CREATININE 0.92 mg/dl (0.60-1.20); GLUCOSE 90 mg/dl (70-99); LIPASE 194 U/L (73-393); SODIUM 128 mmol/L (136-145)
[2017-09-24 12:22] LABS: ALKALINE PHOSPHATASE 128 U/L (45-117); TOTAL PROTEIN 8.2 gm/dl (6.4-8.2)
--- NOTE | 2017-09-24 12:32 | DIAGNOSTIC IMAGING REPORT ---
CT SCAN OF THE ABDOMEN AND PELVIS WITHOUT IV CONTRAST CLINICAL HISTORY: Left flank pain. COMPARISON STUDY: Abdominal CT dated 05/21/2017. TECHNIQUE: CT scan of the abdomen and pelvis is performed from the lung bases to the proximal femora. Images are reviewed in the axial, sagittal, and coronal planes. IV contrast was not administered for this examination as per the referring clinician. A dose lowering technique was utilized adhering to the principles of ALARA. CT DOSE: 462.35 mGycm FINDINGS: Lung bases: The heart is normal in size and without pericardial effusion. Emphysematous change is suggested. No airspace consolidation or pleural effusion is identified. There is a tiny hiatal hernia. Liver: The unenhanced liver is normal in size, contour, and attenuation. There is no intrahepatic biliary ductal dilatation. Gallbladder: Unremarkable. Spleen: Normal in size and attenuation. Calcified splenic granulomas are observed. Pancreas: The unenhanced pancreas is moderately atrophic and grossly unremarkable. Adrenal glands: A 2.8 cm left adrenal nodule is unchanged from previous and meets CT criteria for a fat-containing adenoma. The right adrenal gland is unremarkable. Kidneys: The unenhanced kidneys demonstrate cortical atrophy and are without hydronephrosis. There are small renovascular calcifications. There are no renal calculi identified. There is no evidence of contour deforming renal mass lesion. Abdominal vasculature: The abdominal aorta is normal in course and caliber noting advanced atherosclerotic calcification. Bilateral iliac artery stents are observed. Postoperative change in the groin bilaterally may be related to previous bypass grafting. Bowel: There is mild to moderate colonic diverticulosis without CT evidence of acute diverticulitis. No bowel obstruction is seen. The appendix is not identified and reported surgically absent. Peritoneum: There is no intraperitoneal free air or abdominal ascites. Lymphadenopathy: None. Pelvic viscera: The bladder, uterus, and adnexa are normal as visualized. Findings suggest pelvic floor prolapse. Skeletal structures: The skeletal structures are osteopenic. There is mild lumbosacral spondylosis and scoliosis. No lytic or blastic lesions are seen. IMPRESSION: 1. There are no acute infectious or inflammatory findings in the abdomen or pelvis. 2. Mild to moderate colonic diverticulosis without CT evidence of acute diverticulitis. 3. Suspect emphysema. 4. Advanced atherosclerotic disease is identified. 5. Additional findings as discussed above. Electronically signed by: Angus Marte M.D. 09/24/2017 12:31 PM Dictated Date/Time: 09/24/2017 12:24 PM
[2017-09-24] MEDS ORDERED: PROM1SUP19 PR (14:14)
[2017-09-24 14:19] VITALS: BP 151/77; PULSE 76; O2SAT 96
[2017-10-17] MEDS ORDERED: CLC100 PO (16:47)
[2017-10-17] MEDS ORDERED: OXYC-90 PO ×2 (16:47→16:57)
[2017-11-04] MEDS ORDERED: OXYC-90 PO (12:45)
[2017-11-10] MEDS ORDERED: THIA100T27 PO (16:20)
[2017-11-10] MEDS ORDERED: LDDP5 TD (16:20)
[2018-04-28] MEDS ORDERED: AMIO200T4 PO (12:04)
[2018-04-28] MEDS ORDERED: AMLO10TA3 PO (13:11)
[2018-04-28] MEDS ORDERED: METO25TA56 PO (13:15)
== END 2017-09-24 14:33 | disposition home or self-care (01) ==
LOC: C.EDB 10:31 → C.EDC 14:33
DX: R10.84 Generalized abdominal pain (principal); R11.2 Nausea with vomiting, unspecified; F32.9 Major depressive disorder, single episode, unspecified; E78.5 Hyperlipidemia, unspecified; E87.1 Hypo-osmolality and hyponatremia; I10 Essential (primary) hypertension; Z89.512 Acquired absence of left leg below knee; I48.0 Paroxysmal atrial fibrillation; I73.9 Peripheral vascular disease, unspecified; Z82.49 Family history of ischemic heart disease and other diseases of the circulatory system; Z79.899 Other long term (current) drug therapy; Z79.82 Long term (current) use of aspirin; Z79.01 Long term (current) use of anticoagulants

== ENCOUNTER 2017-10-14 11:45 | Inpatient (IN) | payer BC ==
[~2017-10-14] VITALS: Ht 160 cm; Wt 62.7 kg
[~2017-10-14 11:45] MED LIST changes: +AMIO200T4 PO; +AMLO-114 PO; +ASPI81TA28 PO; -BUPRTAB PO; +CLOP1TAB15 PO; -CRD200 PO; -GABA-1219 PO; +GABA1CAP4 PO; -ONDA-170 PO; +ONDA8TAB62 SL; +OXYC1TAB3 PO; -OXYC20TA32 PO; +PANT40TA PO; +PROM1SUP19 PR; +RANI300T2 PO; +WARF7.5T4 PO; -ZOLP5TAB PO
[2017-10-14] MEDS ORDERED: ONDANSETRON INJ 2 MG/ML 2 ML VIAL IV STA ×2 (13:00→16:47)
[2017-10-14] MEDS ORDERED: SODIUM CHLORIDE 0.9% 1000ML 1,000 ML IV STA ×2 (13:01→17:59)
[2017-10-14] MEDS ORDERED: SODIUM CHLORIDE 0.9% 500ML 500 ML IV STA (13:01)
[2017-10-14 13:08] LABS: BASO % 0.3 %; BASO ABS # 0.04 K/uL (0-0.2); EOS % 0.2 %; EOS ABS # 0.02 K/uL (0-0.5); HEMATOCRIT 40.7 % (37-47); HEMOGLOBIN 14.3 g/dL (12.0-16.0); IG# 0.04 K/uL (0.00-0.02); LYMPH % 16.2 %; LYMPH ABS # 1.89 K/uL (1.2-3.4); MEAN CELL VOLUME 88.1 fL (80-100); MEAN CORPUSCULAR HGB CONC 35.1 g/dl (32-36); MEAN PLATELET VOLUME 9.7 fL (7.4-10.4); MONO % 6.5 %; MONO ABS # 0.76 K/uL (0.11-0.59); NEUT % 76.5 %; NEUT ABS # 8.92 K/uL (1.4-6.5); PLATELET COUNT 330 K/uL (130-400); RED CELL DISTRIBUTION WIDTH CV 19.2 % (11.5-14.5); RED CELL DISTRIBUTION WIDTH SD 61.4 fL (36.4-46.3); WHITE BLOOD COUNT 11.67 K/uL (4.8-10.8)
[2017-10-14] MEDS ORDERED: METO25TA56 PO (13:15)
[2017-10-14] MEDS ORDERED: PROM25SU28 PR (13:15)
[2017-10-14] MEDS ORDERED: GABA-113 PO (13:15)
[2017-10-14 13:28] LABS: PTT PATIENT 30.8 SECONDS (21.0-31.0)
--- NOTE | 2017-10-14 13:44 | DIAGNOSTIC IMAGING REPORT ---
CHEST ONE VIEW PORTABLE HISTORY: 57 years-old Female CHEST PAIN acute atypical chest pain with vomiting and diarrhea COMPARISON: Chest radiograph 09/24/2017, CTA of the chest 10/08/2016 TECHNIQUE: Portable AP view of the chest FINDINGS: Calcified granuloma of the right upper lobe redemonstrated. Atherosclerosis of the aorta. Cardiomediastinal and hilar silhouettes are within normal limits. No pneumothorax, pleural effusion, focal airspace consolidation or overt pulmonary edema. Bones of the chest appear grossly intact. IMPRESSION: No acute process. The above report was generated using voice recognition software. It may contain grammatical, syntax or spelling errors. Electronically signed by: Hi Anderson M.D. 10/14/2017 1:43 PM Dictated Date/Time: 10/14/2017 1:41 PM
[2017-10-14] MEDS: HYDROmorphone INJ 0.5 MG/0.5 ML SYR IV PRN ×2 (13:46→16:51)
[2017-10-14 13:51] LABS: ALKALINE PHOSPHATASE 136 U/L (45-117); ALT/SGPT 27 U/L (12-78); AST/SGOT 35 U/L (15-37); BLOOD UREA NITROGEN 7 mg/dl (7-18); CALCIUM 8.1 mg/dl (8.5-10.1); CARBON DIOXIDE 20 mmol/L (21-32); CKMB 0.6 ng/ml (0.5-3.6); CREATININE 0.77 mg/dl (0.60-1.20); GLUCOSE 102 mg/dl (70-99); POTASSIUM 3.7 mmol/L (3.5-5.1); SODIUM 131 mmol/L (136-145); TOTAL PROTEIN 6.7 gm/dl (6.4-8.2)
[2017-10-14 14:03] LABS: LIPASE 2514 U/L (73-393)
[2017-10-14 14:28] LABS: INFLUENZA B ANTIGEN Neg for Influ B (NEG)
--- NOTE | 2017-10-14 15:07 | DIAGNOSTIC IMAGING REPORT ---
ABD/PELVIS NO IV OR ORAL CONT CT DOSE: 295.35 mGy.cm HISTORY: Pain. Nausea. upper abd pain, vomiting, chest pain TECHNIQUE: Multiaxial CT images of the abdomen and pelvis were performed without contrast. A dose lowering technique was utilized adhering to the principles of ALARA. COMPARISON STUDY: 09/24/2017 FINDINGS: Lung bases are clear. Interval development of generalized edematous change of the pancreas as well as the peripancreatic fascial planes and associated soft tissues. This appearance is most consistent with that of acute pancreatitis. No evidence for drainable abscess or collection. Liver and spleen appear uniform. Nodularity left adrenal is stable. Right adrenal is unremarkable. Moderate gallbladder sludge. Kidneys negative for hydronephrosis. Trace amount of free ascitic fluid in the right superior paracolic gutter and adjacent to the inferior margin of the right hepatic lobe. Bowel pattern overall is nonobstructive. Mild scattered colonic diverticulosis. No evidence for acute diverticulitis. Significant degenerative and atherosclerotic change abdominal and to a greater extent pelvic arterial vasculature. IMPRESSION: 1. Extensive acute pancreatitis. 2. Considerable peripancreatic infiltrative change, although there is no evidence for abscess collection or phlegmon. 3. Unchanging nodular density of the left adrenal. The above report was generated using voice recognition software. It may contain grammatical, syntax or spelling errors. Electronically signed by: Santos Mckenzie M.D. 10/14/2017 3:05 PM Dictated Date/Time: 10/14/2017 3:01 PM
[2017-10-14] MEDS ORDERED: ONDANSETRON INJ 2 MG/ML 2 ML VIAL ONE (16:43)
[2017-10-14] MEDS ORDERED: ONDANSETRON INJ 2 MG/ML 2 ML VIAL IV PRN (19:30)
[2017-10-14] MEDS ORDERED: POLYETHYLENE (MIRALAX) 17 GM PACK PO PRN (19:30)
[2017-10-14 20:05] VITALS: BP 171/98; PULSE 98; TEMP 36.9; O2SAT 95; Ht 160 cm; Wt 62.7 kg
[2017-10-14] MEDS: DOCUSATE SODIUM 100 MG CAP PO SCH (20:57)
[2017-10-14] MEDS ORDERED: D5W AND NSS 1,000 ML IV SCH (21:00)
[2017-10-14] MEDS ORDERED: HydrALAZINE HCL 20 MG/ML VIAL IV. PRN (21:00)
[2017-10-14] MEDS: HYDROmorphone INJ 1 MG/ML SYR IV PRN ×2 (21:04→23:41)
[2017-10-14] MEDS: LACTATED RINGER'S 1000ML 1,000 ML IV SCH (21:15)
--- NOTE | 2017-10-14 21:38 | History and Physical ---
History & Physical Date & Time of Service: Oct 14, 2017 at 20:00 Chief Complaint: Acute Pancreatitis, Chest Pain Primary Care Physician: Fabio Tai M.D. History of Present Illness Source: patient, clinic records, hospital records This is a 57yo F with a PMH of paroxysmal A Fib (on coumadin), HTN, tobacco use disorder, PVD (s/p bilateral femoral endarterectomy in Sep 2016) and s/p Left BKA who presents with abdominal pain x 2 days. Describes pain as 10/10 constant dull, throbbing midepigastrium pain with radiation to chest. Associated symptoms include lightheadedness, persistent nausea and vomiting of bilious fluid. Also endorses several episodes of diarrhea over the past few days. Has been unable to tolerate PO intake and therefore hasn't taken any medication in 2 days. H/o appendectomy. Also endorses left-sided chest pain that began earlier today. Pain is sharp and intermittent, non-radiating. Denies fever, chills, headache, visual changes, palpitations, SOB, urinary symptoms, constipation or LE swelling. Denies history of MO, DVT or PE. Patient is on coumadin for A fib. Was admitted in Apr 2017 for acute liver failure 2/2 augmentin for leg infection and was life flighted to [place]. Underwent a L sided BKA following a fracture and multiple infections. Still experiencing a lot of nerve pain and takes oxycodone every 6 hours at home. Past Medical/Surgical History Medical Problems: (1) Depression Status: Chronic (2) Dyslipidemia Status: Chronic (3) HTN (hypertension) Status: Chronic (4) Paroxysmal atrial fibrillation Status: Chronic (5) PVD (peripheral vascular disease) Status: Chronic Surgical Problems: (1) H/O vascular surgery Permanent Comment: bilateral femoral endarterectomy with iliac stent 10/02/2016 Dr. Dharmesh Omalley, [facility] Status: Chronic (2) History of appendectomy Status: Chronic (3) Status post below knee amputation of left lower extremity Status: Chronic (4) Status post ORIF of fracture of ankle Permanent Comment: 12/18/16- ORIF closed displaced trimalleolar left ankle fracture; Dr. Fischer Status: Chronic Family History Hypertension FATHER MOTHER Social History Smoking Status: Current Every Day Smoker Drug Use: none Marital Status: Housing status: lives with significant other Occupational Status: disabled Immunizations History of Influenza Vaccine: Unknown History of Tetanus Vaccine?: Yes Tetanus Immunization Date: Jun 29, 2006 History of Pneumococcal: Unknown History of Hepatitis B Vaccine: Unknown Multi-Drug Resistant Organisms History of MDRO: No Allergies Coded Allergies: Amoxicillin (Verified Allergy, Severe, LIVER FAILURE, 10/14/17) Clavulanic Acid (Verified Allergy, Severe, LIVER FAILURE, 10/14/17) Adhesives (Verified Allergy, Mild, 10/14/17) Acetaminophen (Verified Allergy, Unknown, LIVER DAMAGE-DUE TO FAILURE, ) Guanfacine (Verified Allergy, Unknown, 10/14/17) Nifedipine (Verified Allergy, Unknown, 10/14/17) Home Medications Scheduled Amiodarone Hcl (Cordarone), 200 MG PO DAILY Amlodipine (Norvasc), 10 MG PO DAILY Aspirin (Aspirin Ec), 81 MG PO DAILY Atorvastatin (Lipitor), 80 MG PO HS Clopidogrel (Plavix), 75 MG PO DAILY Fluoxetine (Prozac), 20 MG PO DAILY Gabapentin (Gabapentin), 2 TABS PO TID Metoprolol Tartrate (Lopressor) (Lopressor), 25 MG PO BID Pantoprazole (Protonix), 40 MG PO DAILY Ranitidine (Zantac), 300 MG PO HS Warfarin Sod (Jantoven), 5 MG PO DAILY Warfarin Sod (Jantoven), 7.5 MG PO DAILY Scheduled PRN Ondansetron Odt (Zofran Odt), 8 MG SL Q8 PRN for Nausea Oxycodone Ir (Roxicodone Ir), 10-20 MG PO Q6 PRN for Pain Promethazine Hcl (Phenergan Suppository), 25 MG WA Q6H PRN for Nausea Review of Systems Ten systems reviewed and negative except as noted in the HPI. Physical Exam Vital Signs Date Time Temp Pulse Resp B/P (MAP) Pulse Ox O2 Delivery O2 Flow Rate FiO2 10/14/17 20:08 36.2 98 22 158/101 95 10/14/17 20:05 95 Room Air 10/14/17 19:46 98 22 10/14/17 19:31 158/101 10/14/17 19:16 96 21 95 10/14/17 19:00 158/89 10/14/17 18:46 94 21 96 10/14/17 18:30 143/86 10/14/17 18:16 96 19 98 10/14/17 18:00 162/95 10/14/17 17:46 93 18 92 10/14/17 17:30 155/92 10/14/17 17:16 95 19 92 10/14/17 17:11 96 18 92 10/14/17 17:01 132/98 10/14/17 16:41 93 18 95 10/14/17 16:36 103 14 96 10/14/17 16:30 143/80 10/14/17 16:06 94 16 97 10/14/17 16:01 128/79 10/14/17 15:45 91 26 95 10/14/17 15:30 141/88 10/14/17 15:15 86 18 97 10/14/17 15:00 87 16 134/87 96 Room Air 10/14/17 15:00 134/87 10/14/17 14:59 147/91 10/14/17 13:58 86 16 148/97 99 Room Air 10/14/17 13:49 148/97 10/14/17 13:45 115 16 169/92 100 10/14/17 13:25 170/120 10/14/17 13:24 106 16 170/110 100 10/14/17 13:15 88 15 99 10/14/17 13:01 172/93 10/14/17 12:54 88 10/14/17 12:53 85 18 170/104 98 Room Air 10/14/17 12:53 98 Room Air 10/14/17 12:52 170/104 10/14/17 11:52 36.2 92 18 154/102 100 Room Air General Appearance: + mild distress, + pertinent finding (Pain with movement but able to clearly communicate.) Head: normocephalic, atraumatic Eyes: normal inspection, PERRL, sclerae normal ENT: normal ENT inspection, hearing grossly normal, pharynx normal (dry mucous membranes ) Neck: supple, thyroid normal, trachea midline Respiratory/Chest: chest non-tender, lungs clear, normal breath sounds, no respiratory distress, no accessory muscle use Cardiovascular: regular rate, rhythm, no murmur, normal peripheral pulses Abdomen/GI: normal bowel sounds, soft, no organomegaly, + tenderness (Diffuse TTP with guarding in midepigastrium ) Back: normal inspection Extremities/Musculoskelatal: no calf tenderness, no pedal edema, + pertinent finding (S/p Left BKA. Amputation site without evidence of infection. ) Neurologic/Psych: no motor/sensory deficits, alert, normal mood/affect, oriented x 3 Skin: normal color, warm/dry Diagnostics Laboratory Results Results Past 24 Hours Test 10/14/17 12:55 10/14/17 13:45 10/14/17 20:12 Range/Units White Blood Count 11.67 4.8-10.8 K/uL Red Blood Count 4.62 4.2-5.4 M/uL Hemoglobin 14.3 12.0-16.0 g/dL Hematocrit 40.7 37-47 % Mean Corpuscular Volume 88.1 80-100 fL Mean Corpuscular Hemoglobin 31.0 25-34 pg Mean Corpuscular Hemoglobin Concent 35.1 32-36 g/dl Platelet Count 330 130-400 K/uL Mean Platelet Volume 9.7 7.4-10.4 fL Neutrophils (%) (Auto) 76.5 % Lymphocytes (%) (Auto) 16.2 % Monocytes (%) (Auto) 6.5 % Eosinophils (%) (Auto) 0.2 % Basophils (%) (Auto) 0.3 % Neutrophils # (Auto) 8.92 1.4-6.5 K/uL Lymphocytes # (Auto) 1.89 1.2-3.4 K/uL Monocytes # (Auto) 0.76 0.11-0.59 K/uL Eosinophils # (Auto) 0.02 0-0.5 K/uL Basophils # (Auto) 0.04 0-0.2 K/uL RDW Standard Deviation 61.4 36.4-46.3 fL RDW Coefficient of Variation 19.2 11.5-14.5 % Immature Granulocyte % (Auto) 0.3 % Immature Granulocyte # (Auto) 0.04 0.00-0.02 K/uL Prothrombin Time 20.7 9.0-12.0 SECONDS Prothromb Time International Ratio 2.0 0.9-1.1 Activated Partial Thromboplast Time 30.8 21.0-31.0 SECONDS Partial Thromboplastin Ratio 1.2 Sodium Level 131 136-145 mmol/L Potassium Level 3.7 3.5-5.1 mmol/L Chloride Level 95 98-107 mmol/L Carbon Dioxide Level 20 21-32 mmol/L Anion Gap 16.0 3-11 mmol/L Blood Urea Nitrogen 7 7-18 mg/dl Creatinine 0.77 0.60-1.20 mg/dl Est Creatinine Clear Calc Drug Dose 73.1 ml/min Estimated GFR () 99.3 Estimated GFR (Non- 85.7 BUN/Creatinine Ratio 9.6 10-20 Random Glucose 102 70-99 mg/dl Calcium Level 8.1 8.5-10.1 mg/dl Total Bilirubin 0.6 0.2-1 mg/dl Direct Bilirubin 0-0.2 mg/dl Aspartate Amino Transf (AST/SGOT) 35 15-37 U/L Alanine Aminotransferase (ALT/SGPT) 27 12-78 U/L Alkaline Phosphatase 136 45-117 U/L Total Creatine Kinase 47 26-192 U/L Creatine Kinase MB 0.6 0.5-3.6 ng/ml Creatine Kinase MB Ratio 1.3 0-3.0 Troponin I < 0.015 < 0.015 0-0.045 ng/ml Total Protein 6.7 6.4-8.2 gm/dl Albumin 3.0 3.4-5.0 gm/dl Lipase 2514 73-393 U/L Chemistry Specimen Hemolysis Influenza Type A Antigen Neg for Influ A NEG Influenza Type B Antigen Neg for Influ B NEG Diagnostic Radiology CT abd/pelvis: IMPRESSION: 1. Extensive acute pancreatitis. 2. Considerable peripancreatic infiltrative change, although there is no evidence for abscess collection or phlegmon. 3. Unchanging nodular density of the left adrenal. CXR: IMPRESSION: No acute process. EKG NSR, possible left atrial enlargement, anterior infarct (age undetermined). No change from prior EKG Impression Assessment and Plan This is a 57yo F with a PMH of paroxysmal A Fib (on coumadin), HTN, tobacco use disorder, PVD (s/p bilateral femoral endarterectomy in Sep 2016) and s/p Left BKA who presents with abdominal pain x 2 days. Acute pancreatitis: -Abd pain, persistent nausea, vomiting -Lipase elevated to 2,500. Leukocytosis of 11.67 -CT abd/pelvis with extensive acute pancreatitis. No evidence for abscess of phlegmon -Denies h/o pancreatitis, gall stones -History of alcohol abuse but states she has reduced intake -Currently drinks 2-4 beers 4x/week. Last beer on Wednesday -RUQ ultrasound ordered to rule out gallstones -Fasting lipid panel ordered -IVF with LR, pain control, anti-emetics -GI consult -NPO for now Chest pain: -R/o ACS; risk factors include HTN, HLD, tobacco use disorder -Initial troponin negative -EKG without significant changes, CXR wnl -Trend serial cardiac enzymes -Last echo in Sep 2016 with normal LV size and function. EF 60-65% -Consider echo tomorrow if chest pain continues -Repeat EKG in AM Diarrhea: -Multiple episodes over past few days -Stool studies, c diff toxin Paroxysmal A Fib: -Currently in NSR -Unable to tolerate PO meds -IV Lopressor 2.5mg Q6H for rate/rhythm control -INR is therapeutic at 2 -Resume home dose warfarin tomorrow -Telemetry HTN: -Elevated BP 2/2 pain, unable to tolerate PO meds for past 2 days iv Lopressor. -IV hydralazine 5mg Q6H PRN if SBP > 160 HLD: -Resume statin when able to tolerate PO medication S/p Left BKA: -Receiving IV pain meds, hold home oxycodone -Cont plavix, aspirin when able to tolerate PO medication DVT Ppx: Warfarin, SCDs Code status: FULL PCP: [place] Dispo: Admitted to telemetry. Plan to return home once medically stable. Patient seen in collaboration with Dr. Sandoval. Please see addendum. Agree with above h and p. Briefly 57F presents with severe nausea/vomiting, diarrhea going on for last two days. Has abdominal pain radiating to her chest. Afebrile. Not able to take po meds because of nausea. No hx of pancreatitis in the past.NO cough. p/e Ge not in distress Cvs s1 and s2 heard no murmurs Rs cta b/l no added sounds Abd soft diffuse severe tenderness no rigidity no distension Cbs non focal Ext no edema s/p left BKA a/p Acute pancreatitis from alcoholism? f/y abdominal us aggressive fluids iv pain meds and antiemetics npo except meds gi consult Diarrhea follow c diff Level of Care Telemetry Advanced Directives Existing Living Will: No Existing Power of Lead Project Engineer: No Resuscitation Status FULL RESUSCITATION VTE Prophylaxis VTE Risk Assessment Done? Y/N: Yes Risk Level: Moderate Given or contraindicated: Warfarin (Coumadin)
[2017-10-14 21:48] VITALS: BP 153/90; PULSE 110
[2017-10-14] MEDS: METOPROLOL TARTRATE 1 MG/ML VIAL IV. SCH (21:51)
--- NOTE | 2017-10-14 22:05 | EMERGENCY ROOM VISIT NOTE ---
History Report prepared by Florencia: Johan Castillo Under the Supervision of: Dr. Mehdi Babin M.D. First contact with patient: 12:43 Chief Complaint: CHEST PAIN Stated Complaint: CHEST PAIN, HEART CONDITION, VOM/MAGDY Nursing Triage Summary: Chest pain since this morning. flu like symptoms. vomiting "I keep throwing up all of my meds so my leg is killing me bc I can't keep my pain meds down". hx of A-fib History of Present Illness The patient is a 57 year old female who presents to the Emergency Room with complaints of waxing and waning chest pains that onset this morning, several hours prior to arrival. The patient states that she started to experience gastrointestinal symptoms two days ago, with several bouts of diarrhea. Following the diarrhea, the patient began to vomit persistently yesterday. She has continued to vomit today, with the last episode being 10 minutes ago. The patient is also complaining of abdominal pain in her central abdomen, just above the umbilicus. She has had a producing cough since yesterday as well. She rates this pain as an 8/10 in severity. She has a history of appendectomy. The patient's denies any sick contacts. The patient had a a LLE amputation performed last year, secondary to an infection following a fracture. She is on oxycodone at home due to pain in the LLE. She denies and further LOC, headache, fevers, chills, diaphoresis, visual changes, neck pain, back pain, melena, hematochezia, urinary symptoms, numbness, weakness, lymphadenopathy, rash, or other complaints. The patient has a history of atrial fibrillation. Source of History: patient Onset: Several hours OFFICE REP Position: chest Timing: waxes/wanes Associated Symptoms: + cough, + vomiting, + abdominal pain, + diarrhea Review of Systems See HPI for pertinent positives and negatives. A total of ten systems were reviewed and were otherwise negative. Past Medical & Surgical Medical Problems: (1) Anxiety (2) Depression (3) Dyslipidemia (4) History of blood clots (5) HTN (hypertension) (6) Paroxysmal atrial fibrillation (7) PVD (peripheral vascular disease) Surgical Problems: (1) H/O vascular surgery (2) History of appendectomy (3) Status post below knee amputation of left lower extremity (4) Status post ORIF of fracture of ankle Family History Hypertension FATHER MOTHER Social History Smoking Status: Former Smoker Alcohol Use: occasionally Drug Use: none Marital Status: Housing Status: lives with family Occupation Status: disabled Current/Historical Medications Scheduled Amiodarone Hcl (Cordarone), 200 MG PO DAILY Amlodipine (Norvasc), 10 MG PO DAILY Aspirin (Aspirin Ec), 81 MG PO DAILY Atorvastatin (Lipitor), 80 MG PO HS Clopidogrel (Plavix), 75 MG PO DAILY Fluoxetine (Prozac), 20 MG PO DAILY Gabapentin (Neurontin), 1,200 MG PO TID Metoprolol Tartrate (Lopressor) (Lopressor), 25 MG PO BID Pantoprazole (Protonix), 40 MG PO DAILY Ranitidine (Zantac), 300 MG PO HS Warfarin Sod (Jantoven), 5 MG PO DAILY Warfarin Sod (Jantoven), 7.5 MG PO DAILY Scheduled PRN Ondansetron Odt (Zofran Odt), 8 MG SL Q8 PRN for Nausea Oxycodone Ir (Roxicodone Ir), 10-20 MG PO Q6 PRN for Pain Promethazine Hcl (Phenergan Suppository), 25 MG AL Q6H PRN for Nausea Allergies Coded Allergies: Amoxicillin (Verified Allergy, Severe, LIVER FAILURE, 10/14/17) Clavulanic Acid (Verified Allergy, Severe, LIVER FAILURE, 10/14/17) Adhesives (Verified Allergy, Mild, 10/14/17) Acetaminophen (Verified Allergy, Unknown, LIVER DAMAGE-DUE TO FAILURE, ) Guanfacine (Verified Allergy, Unknown, 10/14/17) Nifedipine (Verified Allergy, Unknown, 10/14/17) Physical Exam Vital Signs Date Time Temp Pulse Resp B/P (MAP) Pulse Ox O2 Delivery O2 Flow Rate FiO2 10/14/17 19:16 96 21 95 10/14/17 19:00 158/89 10/14/17 18:46 94 21 96 10/14/17 18:30 143/86 10/14/17 18:16 96 19 98 10/14/17 18:00 162/95 10/14/17 17:46 93 18 92 10/14/17 17:30 155/92 10/14/17 17:16 95 19 92 10/14/17 17:11 96 18 92 10/14/17 17:01 132/98 10/14/17 16:41 93 18 95 10/14/17 16:36 103 14 96 10/14/17 16:30 143/80 10/14/17 16:06 94 16 97 10/14/17 16:01 128/79 10/14/17 15:45 91 26 95 10/14/17 15:30 141/88 10/14/17 15:15 86 18 97 10/14/17 15:00 87 16 134/87 96 Room Air 10/14/17 15:00 134/87 10/14/17 14:59 147/91 10/14/17 13:58 86 16 148/97 99 Room Air 10/14/17 13:49 148/97 10/14/17 13:45 115 16 169/92 100 10/14/17 13:25 170/120 10/14/17 13:24 106 16 170/110 100 10/14/17 13:15 88 15 99 10/14/17 13:01 172/93 10/14/17 12:54 88 10/14/17 12:53 85 18 170/104 98 Room Air 10/14/17 12:53 98 Room Air 10/14/17 12:52 170/104 10/14/17 11:52 36.2 92 18 154/102 100 Room Air Physical Exam GENERAL: Awake, alert, well-appearing, in no distress HENT: Normocephalic, atraumatic. Oropharynx unremarkable. EYES: Normal conjunctiva. Sclera non-icteric. NECK: Supple. No nuchal rigidity. FROM. No JVD. RESPIRATORY: Clear to auscultation. CARDIAC: Regular rate, normal rhythm. Extremities warm and well perfused. Pulses equal. ABDOMEN: Soft, non-distended. Left Upper/Left Lower tenderness to palpation. No rebound or guarding. No masses. RECTAL: Deferred. MUSCULOSKELETAL: Chest examination reveals no tenderness. The back is symmetrical on inspection without obvious abnormality. There is no CVA tenderness to palpation. No joint edema. LOWER EXTREMITIES: Left Lower Extremity BKA, well healed. Right Lower Extremity is non-tender, No edema. No discoloration. NEURO: Normal sensorium. No sensory or motor deficits noted. SKIN: No rash or jaundice noted. Medical Decision & Procedures ER Provider Diagnostic Interpretation: Radiology results as stated below per my review and radiologist interpretation: ABD/PELVIS NO IV OR ORAL CONT CT DOSE: 295.35 mGy.cm HISTORY: Pain. Nausea. upper abd pain, vomiting, chest pain TECHNIQUE: Multiaxial CT images of the abdomen and pelvis were performed without contrast. A dose lowering technique was utilized adhering to the principles of ALARA. COMPARISON STUDY: 09/24/2017 FINDINGS: Lung bases are clear. Interval development of generalized edematous change of the pancreas as well as the peripancreatic fascial planes and associated soft tissues. This appearance is most consistent with that of acute pancreatitis. No evidence for drainable abscess or collection. Liver and spleen appear uniform. Nodularity left adrenal is stable. Right adrenal is unremarkable. Moderate gallbladder sludge. Kidneys negative for hydronephrosis. Trace amount of free ascitic fluid in the right superior paracolic gutter and adjacent to the inferior margin of the right hepatic lobe. Bowel pattern overall is nonobstructive. Mild scattered colonic diverticulosis. No evidence for acute diverticulitis. Significant degenerative and atherosclerotic change abdominal and to a greater extent pelvic arterial vasculature. IMPRESSION: 1. Extensive acute pancreatitis. 2. Considerable peripancreatic infiltrative change, although there is no evidence for abscess collection or phlegmon. 3. Unchanging nodular density of the left adrenal. The above report was generated using voice recognition software. It may contain grammatical, syntax or spelling errors. Electronically signed by: Santos Mckenzie M.D. 10/14/2017 3:05 PM Dictated Date/Time: 10/14/2017 3:01 PM CHEST ONE VIEW PORTABLE HISTORY: 57 years-old Female CHEST PAIN acute atypical chest pain with vomiting and diarrhea COMPARISON: Chest radiograph 09/24/2017, CTA of the chest 10/08/2016 TECHNIQUE: Portable AP view of the chest FINDINGS: Calcified granuloma of the right upper lobe redemonstrated. Atherosclerosis of the aorta. Cardiomediastinal and hilar silhouettes are within normal limits. No pneumothorax, pleural effusion, focal airspace consolidation or overt pulmonary edema. Bones of the chest appear grossly intact. IMPRESSION: No acute process. The above report was generated using voice recognition software. It may contain grammatical, syntax or spelling errors. Electronically signed by: Hi Anderson M.D. 10/14/2017 1:43 PM Dictated Date/Time: 10/14/2017 1:41 PM Laboratory Results 10/14/17 12:55 Red Blood Count 4.62, Mean Corpuscular Volume 88.1, Mean Corpuscular Hemoglobin 31.0, Mean Corpuscular Hemoglobin Concent 35.1, Mean Platelet Volume 9.7, Neutrophils (%) (Auto) 76.5, Lymphocytes (%) (Auto) 16.2, Monocytes (%) (Auto) 6.5, Eosinophils (%) (Auto) 0.2, Basophils (%) (Auto) 0.3, Neutrophils # (Auto) 8.92, Lymphocytes # (Auto) 1.89, Monocytes # (Auto) 0.76, Eosinophils # (Auto) 0.02, Basophils # (Auto) 0.04 10/14/17 12:55 Test 10/14/17 12:55 10/14/17 13:45 White Blood Count 11.67 K/uL (4.8-10.8) Red Blood Count 4.62 M/uL (4.2-5.4) Hemoglobin 14.3 g/dL (12.0-16.0) Hematocrit 40.7 % (37-47) Mean Corpuscular Volume 88.1 fL (80-100) Mean Corpuscular Hemoglobin 31.0 pg (25-34) Mean Corpuscular Hemoglobin Concent 35.1 g/dl (32-36) Platelet Count 330 K/uL (130-400) Mean Platelet Volume 9.7 fL (7.4-10.4) Neutrophils (%) (Auto) 76.5 % Lymphocytes (%) (Auto) 16.2 % Monocytes (%) (Auto) 6.5 % Eosinophils (%) (Auto) 0.2 % Basophils (%) (Auto) 0.3 % Neutrophils # (Auto) 8.92 K/uL (1.4-6.5) Lymphocytes # (Auto) 1.89 K/uL (1.2-3.4) Monocytes # (Auto) 0.76 K/uL (0.11-0.59) Eosinophils # (Auto) 0.02 K/uL (0-0.5) Basophils # (Auto) 0.04 K/uL (0-0.2) RDW Standard Deviation 61.4 fL (36.4-46.3) RDW Coefficient of Variation 19.2 % (11.5-14.5) Immature Granulocyte % (Auto) 0.3 % Immature Granulocyte # (Auto) 0.04 K/uL (0.00-0.02) Prothrombin Time 20.7 SECONDS (9.0-12.0) Prothromb Time International Ratio 2.0 (0.9-1.1) Activated Partial Thromboplast Time 30.8 SECONDS (21.0-31.0) Partial Thromboplastin Ratio 1.2 Anion Gap 16.0 mmol/L (3-11) Est Creatinine Clear Calc Drug Dose 73.1 ml/min Estimated GFR () 99.3 Estimated GFR (Non- 85.7 BUN/Creatinine Ratio 9.6 (10-20) Calcium Level 8.1 mg/dl (8.5-10.1) Total Bilirubin 0.6 mg/dl (0.2-1) Direct Bilirubin mg/dl (0-0.2) Aspartate Amino Transf (AST/SGOT) 35 U/L (15-37) Alanine Aminotransferase (ALT/SGPT) 27 U/L (12-78) Alkaline Phosphatase 136 U/L (45-117) Total Creatine Kinase 47 U/L (26-192) Creatine Kinase MB 0.6 ng/ml (0.5-3.6) Creatine Kinase MB Ratio 1.3 (0-3.0) Total Protein 6.7 gm/dl (6.4-8.2) Albumin 3.0 gm/dl (3.4-5.0) Lipase 2514 U/L (73-393) Chemistry Specimen Hemolysis Influenza Type A Antigen Neg for Influ A (NEG) Influenza Type B Antigen Neg for Influ B (NEG) Laboratory results reviewed by me Medications Administered Medications (Trade) Dose Ordered Sig/Rosa Route Start Time Stop Time Status Last Admin Dose Admin Ondansetron HCl (Zofran Inj) 4 mg NOW STAT IV 10/14/17 13:00 10/14/17 13:01 DC 10/14/17 13:46 4 MG Hydromorphone HCl (Dilaudid Inj) 0.5 mg Q30M PRN IV 10/14/17 13:00 10/14/17 20:39 DC 10/14/17 16:51 0.5 MG Sodium Chloride 500 ml @ 999 mls/hr Q31M STAT IV 10/14/17 13:01 10/14/17 13:31 DC 10/14/17 13:47 999 MLS/HR Sodium Chloride 1,000 ml @ 125 mls/hr Q8H STAT IV 10/14/17 13:01 10/14/17 21:00 DC 10/14/17 13:47 125 MLS/HR Ondansetron HCl (Zofran Inj) 4 mg STK-MED ONCE .ROUTE 10/14/17 16:43 10/14/17 16:44 DC 10/14/17 16:49 4 MG Sodium Chloride 1,000 ml @ 250 mls/hr Q4H STAT IV 10/14/17 17:59 10/14/17 21:06 DC 10/14/17 17:59 250 MLS/HR ECG Indication: chest pain Rate (beats per minute): 86 Rhythm: normal sinus Findings: Q waves (Anterior), no acute ischemic change, no ectopy Comparison ECG Date: 09/24/2017 Change: no significant change Change: Patient's Electrocardiogram per my interpretation. ED Course 1259: The patient was evaluated in room C4. A complete history and physical exam was performed. 1300: Ordered Dilaudid 0.5 mg IV, Zofran 4 mg IV, Sodium Chloride 1000 mL @ 125 mL/hr IV, Sodium Chloride 500 mL @ 999 mL/hr IV. 1643: Ordered Zofran 4 mg. 1759: Ordered Sodium Chloride 1000 mL @ 250 mL/hr IV. 1804: I reevaluated the patient at this time. She was stable and agreeable to admission. 1828: I discussed the case with Lachelle Hdz PA-C. She will evaluate the patient for further treatment. Medical Decision Prior records/ancillary studies reviewed. Triage Nursing notes reviewed and agree them. Additional history obtained from the family. The patient's history was concerning for chest pain. Differential diagnosis: Etiologies such as cardiac ischemia, biliary colic, pancreatitis, aortic dissection, pulmonary embolism, pneumonia, pneumothorax, musculoskeletal, infections, pericarditis, myocarditis, esophageal rupture, gastrointestinal, as well as others were entertained. Physical examination: As above. ER treatment provided: IV Zofran IV Dilaudid IV normal saline On reassessment the patient felt better. Diagnostic interpretation by me: The electrocardiogram was negative for pathologic change. The labs revealed a mild leukocytosis on CBC. Chem panel unremarkable except for mild anion gap. The patient had an elevated lipase consistent with acute pancreatitis. Imaging studies: Chest x-ray and CT scan as above Patient has pancreatitis. Consultation: A consultation was placed with the hospitalist. The case was discussed and diagnostics were reviewed. The patient was evaluated in the ER for further treatment. Blood Pressure Screening Patient's blood pressure: Elevated blood pressure Referred to Hospitalist Consults Time Called: 1824 Consulting Physician: Lachelle Hdz PA-C Returned Call: 1827 I discussed the case with Lachelle Hdz PA-C. She will evaluate the patient for further treatment. Impression Primary Impression: Acute pancreatitis Additional Impressions: UTI (urinary tract infection) Lethargy Scribe Attestation The scribe's documentation has been prepared under my direction and personally reviewed by me in its entirety. I confirm that the note above accurately reflects all work, treatment, procedures, and medical decision making performed by me. Departure Information Dispostion Being Evaluated By Hospitalist Referrals Fabio Tai M.D. (PCP) Patient Instructions [facility] Problem Qualifiers
[2017-10-14] MEDS ORDERED: NRN600 PO (22:10)
[2017-10-14 23:41] VITALS: BP 175/102; PULSE 97; TEMP 36.4; O2SAT 96
[2017-10-15] VITALS (8 sets, daily range): BP systolic 106–136; BP diastolic 65–81; PULSE 73–89; TEMP 36.5–37; O2SAT 91–95
[2017-10-15] MEDS: LACTATED RINGER'S 1000ML 1,000 ML IV SCH ×3 (02:03→11:35)
[2017-10-15] MEDS: HYDROmorphone INJ 1 MG/ML SYR IV PRN ×5 (02:38→18:47)
[2017-10-15] MEDS: METOPROLOL TARTRATE 1 MG/ML VIAL IV. SCH ×4 (05:00→23:53)
[2017-10-15 07:03] LABS: HEMATOCRIT 35.5 % (37-47); HEMOGLOBIN 12.2 g/dL (12.0-16.0); MEAN CELL VOLUME 90.3 fL (80-100); MEAN CORPUSCULAR HGB CONC 34.4 g/dl (32-36); MEAN PLATELET VOLUME 9.8 fL (7.4-10.4); PLATELET COUNT 188 K/uL (130-400); RED CELL DISTRIBUTION WIDTH CV 19.6 % (11.5-14.5); RED CELL DISTRIBUTION WIDTH SD 63.3 fL (36.4-46.3); WHITE BLOOD COUNT 7.16 K/uL (4.8-10.8)
[2017-10-15 07:38] LABS: ALBUMIN 2.4 gm/dl (3.4-5.0); CALCIUM 7.6 mg/dl (8.5-10.1); CREATININE 0.64 mg/dl (0.60-1.20); POTASSIUM 3.2 mmol/L (3.5-5.1)
[2017-10-15 07:42] LABS: TOTAL PROTEIN 5.9 gm/dl (6.4-8.2)
[2017-10-15] MEDS: DOCUSATE SODIUM 100 MG CAP PO SCH ×2 (08:25→18:48)
[2017-10-15] MEDS: POTASSIUM CHLR 10 MEQ / WTR 10 MEQ in PREMIXED WATER 100 ML IV SCH ×2 (08:39→09:30)
[2017-10-15] MEDS: HYDROmorphone INJ 0.5 MG/0.5 ML SYR IV PRN ×3 (08:40→21:39)
--- NOTE | 2017-10-15 10:12 | DIAGNOSTIC IMAGING REPORT ---
BILIARY ULTRASOUND CLINICAL HISTORY: Pancreatitis COMPARISON STUDY: No previous studies for comparison. FINDINGS: The pancreas was poorly visualized. No peripancreatic fluid collections were visualized. No focal hepatic masses are visualized. No gallstones are identified. The common bile duct measures 7 mm in maximal diameter. There is no right-sided hydronephrosis. IMPRESSION: 1. Suboptimal visualization the pancreas 2. No peripancreatic fluid collections identified 3. Ultrasonographically normal gallbladder. 7 mm common bile duct. Electronically signed by: Greg Moreira M.D. 10/15/2017 10:11 AM Dictated Date/Time: 10/15/2017 10:08 AM
--- NOTE | 2017-10-15 10:43 | Gastrointestinal Consultation ---
Gastrointestinal Consultation Date of Consultation: Oct 15, 2017 Attending Physician: Holden Consulting Physician: Salina Reason for Consultation: pancreatitis History of Present Illness Patient is a 57 year old female afib on coumadin, HTN, ETOH abuse, tobacco abuse , PVD s/p bilateral femoral endarterectomy w/ history of acute liver injury in April secondary to DILI from Augmentin for lower extremity infection who is s/ p Left BKA who presents through the ED with abdominal pain x 2 days. Pt was seen and evaluated, chart reviewed. Pt tells me on Wednesday started having nausea, vomiting (bile) with abrupt onset upper abdominal pain, sharp and constant. Radiated to her back. Has never had this pain before. Notes that two days prior to this pain had a few bouts of loose stools, she bought OTC imodium w/ resoltion of loose stools. No black or bloody stools. Hx ETOH use: 4-5 beers, 3-4 x a week x 40 years Hx of chronic liver disease: none Hx pancreatitis: none Family history of pancreatitis: none RUQ US 10/15/17: The pancreas was poorly visualized. No peripancreatic fluid collections were visualized. No focal hepatic masses are visualized. Nogallstones are identified. The common bile duct measures 7 mm in maximal diameter. There is no right-sided hydronephrosis. CT ABD/Pelvis 10/15/17: Extensive acute pancreatitis. considerable peripancreatic infiltrative change, although there is no evidence for abscess collection or phlegmon. Unchanging nodular density of the left adrenal. Chest XR 10/14/17: No acute process. Past Medical/Surgical History Medical Problems: (1) Abdominal pain Status: Acute (2) Acute liver failure Status: Acute (3) Acute pancreatitis Status: Acute (4) Cellulitis Status: Acute (5) Contusion of ankle, left Status: Acute (6) Hyponatremia Status: Acute (7) Lethargy Status: Acute (8) Lower extremity edema Status: Acute (9) Rapid atrial fibrillation Status: Acute (10) Trimalleolar fracture of ankle, closed Status: Acute (11) UTI (urinary tract infection) Status: Acute (12) Vomiting Status: Acute Past Medical History: depression, ETOH abuse, dyslipidemia, HTN, afib, DVD, Past Surgical History: bilateral femoral endarterectomy with iliac stent 10/02/2016 Dr. Dharmesh Omalley, [facility], history of appendectomy, BKA of left lower extremity ORIF of fracture of ankle Family History Hypertension FATHER MOTHER Social History Smoking Status: Current Every Day Smoker Alcohol Use: occasionally Drug Use: none Marital Status: Housing Status: lives with family Occupation Status: disabled Allergies Coded Allergies: Amoxicillin (Verified Allergy, Severe, LIVER FAILURE, 10/14/17) Clavulanic Acid (Verified Allergy, Severe, LIVER FAILURE, 10/14/17) Adhesives (Verified Allergy, Mild, 10/14/17) Acetaminophen (Verified Allergy, Unknown, LIVER DAMAGE-DUE TO FAILURE, ) Guanfacine (Verified Allergy, Unknown, 10/14/17) Nifedipine (Verified Allergy, Unknown, 10/14/17) Current Medications Home Meds and Scripts Medications Dose Route/Sig Max Daily Dose Days Date Category Dose Instructions Gabapentin 600 Mg Tab 2 Tabs PO TID 10/14/17 Reported Phenergan Suppository (Promethazine HCl) 25 Mg Supp 25 Mg DC Q6H PRN 10/14/17 Reported Lopressor (Metoprolol Tartrate) 25 Mg Tab 25 Mg PO BID 10/14/17 Reported Jantoven (Warfarin Sodium) 7.5 Mg Tab 7.5 Mg PO DAILY 09/24/17 Reported 7.5 mg wednesday and wednesday Jantoven (Warfarin Sodium) 5 Mg Tab 5 Mg PO DAILY 09/24/17 Reported 5 mg wednesday, wednesday, , wednesday, wednesday Roxicodone Ir (Oxycodone HCl) 5 Mg Tab 10-20 Mg PO Q6 PRN 09/24/17 Reported Zofran Odt (Ondansetron HCl) 8 Mg Soltab 8 Mg SL Q8 PRN 09/24/17 Reported Cordarone (Amiodarone Hcl) 200 Mg Tab 200 Mg PO DAILY 09/24/17 Reported Norvasc (Amlodipine Besylate) 10 Mg Tab 10 Mg PO DAILY 03/22/17 Reported Zantac (Ranitidine HCl) 300 Mg Tab 300 Mg PO HS 10/08/16 Reported Protonix (Pantoprazole Sodium) 40 Mg Tab 40 Mg PO DAILY 10/08/16 Reported Prozac (Fluoxetine HCl) 20 Mg Cap 20 Mg PO DAILY 10/08/16 Reported Aspirin Ec (Aspirin) 81 Mg Tab 81 Mg PO DAILY 10/08/16 Reported Lipitor (Atorvastatin Calcium) 80 Mg Tab 80 Mg PO HS 10/08/16 Reported Plavix (Clopidogrel Bisulfate) 75 Mg Tab 75 Mg PO DAILY 10/08/16 Reported Review of Systems Constitutional: No fever, No chills Respiratory: + cough, No shortness of breath Cardiac: No chest pain Abdomen: + pain, + nausea, + vomiting, No diarrhea, No constipation, No GI bleeding Physical Exam Date Time Temp Pulse Resp B/P (MAP) Pulse Ox O2 Delivery O2 Flow Rate FiO2 10/15/17 07:54 36.5 89 20 111/67 (82) 93 10/15/17 05:07 36.7 89 20 110/65 (80) 91 Room Air 10/15/17 04:00 Room Air 10/15/17 00:29 115/65 (82) 10/15/17 00:00 Room Air 10/14/17 23:41 36.4 97 20 175/102 (126) 96 Room Air 10/14/17 21:51 100 153/90 10/14/17 21:48 110 153/90 (111) 10/14/17 20:08 36.2 98 22 158/101 95 10/14/17 20:05 36.9 98 18 171/98 95 Room Air 10/14/17 19:46 98 22 10/14/17 19:31 158/101 10/14/17 19:16 96 21 95 10/14/17 19:00 158/89 10/14/17 18:46 94 21 96 10/14/17 18:30 143/86 10/14/17 18:16 96 19 98 10/14/17 18:00 162/95 18 17:46 93 18 92 10/14/17 17:30 155/92 10/14/17 17:16 95 19 92 10/14/17 17:11 96 18 92 10/14/17 17:01 132/98 10/14/17 16:41 93 18 95 10/14/17 16:36 103 14 96 10/14/17 16:30 143/80 10/14/17 16:06 94 16 97 10/14/17 16:01 128/79 10/14/17 15:45 91 26 95 10/14/17 15:30 141/88 10/14/17 15:15 86 18 97 10/14/17 15:00 87 16 134/87 96 Room Air 10/14/17 15:00 134/87 10/14/17 14:59 147/91 10/14/17 13:58 86 16 148/97 99 Room Air 10/14/17 13:49 148/97 10/14/17 13:45 115 16 169/92 100 10/14/17 13:25 170/120 10/14/17 13:24 106 16 170/110 100 10/14/17 13:15 88 15 99 10/14/17 13:01 172/93 10/14/17 12:54 88 10/14/17 12:53 85 18 170/104 98 Room Air 10/14/17 12:53 98 Room Air 10/14/17 12:52 170/104 10/14/17 11:52 36.2 92 18 154/102 100 Room Air General Appearance: no apparent distress Eyes: PERRL ENT: hearing grossly normal Neck: supple Respiratory/Chest: lungs clear, normal breath sounds Cardiovascular: regular rate, rhythm Abdomen: soft, no organomegaly, no pulsatile mass, + tenderness (severe upper abd pain w/ palpation) Neurologic/Psych: alert, normal mood/affect, oriented x 3 Skin: normal color Laboratory Results Last 24 Hours Test 10/14/17 12:55 10/14/17 13:45 10/14/17 20:12 10/15/17 01:12 White Blood Count 11.67 K/uL Red Blood Count 4.62 M/uL Hemoglobin 14.3 g/dL Hematocrit 40.7 % Mean Corpuscular Volume 88.1 fL Mean Corpuscular Hemoglobin 31.0 pg Mean Corpuscular Hemoglobin Concent 35.1 g/dl Platelet Count 330 K/uL Mean Platelet Volume 9.7 fL Neutrophils (%) (Auto) 76.5 % Lymphocytes (%) (Auto) 16.2 % Monocytes (%) (Auto) 6.5 % Eosinophils (%) (Auto) 0.2 % Basophils (%) (Auto) 0.3 % Neutrophils # (Auto) 8.92 K/uL Lymphocytes # (Auto) 1.89 K/uL Monocytes # (Auto) 0.76 K/uL Eosinophils # (Auto) 0.02 K/uL Basophils # (Auto) 0.04 K/uL RDW Standard Deviation 61.4 fL RDW Coefficient of Variation 19.2 % Immature Granulocyte % (Auto) 0.3 % Immature Granulocyte # (Auto) 0.04 K/uL Prothrombin Time 20.7 SECONDS Prothromb Time International Ratio 2.0 Activated Partial Thromboplast Time 30.8 SECONDS Partial Thromboplastin Ratio 1.2 Sodium Level 131 mmol/L Potassium Level 3.7 mmol/L Chloride Level 95 mmol/L Carbon Dioxide Level 20 mmol/L Anion Gap 16.0 mmol/L Blood Urea Nitrogen 7 mg/dl Creatinine 0.77 mg/dl Est Creatinine Clear Calc Drug Dose 73.1 ml/min Estimated GFR () 99.3 Estimated GFR (Non- 85.7 BUN/Creatinine Ratio 9.6 Random Glucose 102 mg/dl Calcium Level 8.1 mg/dl Total Bilirubin 0.6 mg/dl Direct Bilirubin mg/dl Aspartate Amino Transf (AST/SGOT) 35 U/L Alanine Aminotransferase (ALT/SGPT) 27 U/L Alkaline Phosphatase 136 U/L Total Creatine Kinase 47 U/L Creatine Kinase MB 0.6 ng/ml Creatine Kinase MB Ratio 1.3 Troponin I < 0.015 ng/ml < 0.015 ng/ml < 0.015 ng/ml Total Protein 6.7 gm/dl Albumin 3.0 gm/dl Lipase 2514 U/L Chemistry Specimen Hemolysis Influenza Type A Antigen Neg for Influ A Influenza Type B Antigen Neg for Influ B Test 10/15/17 06:44 White Blood Count 7.16 K/uL Red Blood Count 3.93 M/uL Hemoglobin 12.2 g/dL Hematocrit 35.5 % Mean Corpuscular Volume 90.3 fL Mean Corpuscular Hemoglobin 31.0 pg Mean Corpuscular Hemoglobin Concent 34.4 g/dl RDW Standard Deviation 63.3 fL RDW Coefficient of Variation 19.6 % Platelet Count 188 K/uL Mean Platelet Volume 9.8 fL Sodium Level 134 mmol/L Potassium Level 3.2 mmol/L Chloride Level 101 mmol/L Carbon Dioxide Level 26 mmol/L Anion Gap 7.0 mmol/L Blood Urea Nitrogen 3 mg/dl Creatinine 0.64 mg/dl Est Creatinine Clear Calc Drug Dose 80.2 ml/min Estimated GFR () 114.8 Estimated GFR (Non- 99.1 BUN/Creatinine Ratio 4.4 Random Glucose 81 mg/dl Calcium Level 7.6 mg/dl Total Bilirubin 0.9 mg/dl Direct Bilirubin 0.2 mg/dl Aspartate Amino Transf (AST/SGOT) 25 U/L Alanine Aminotransferase (ALT/SGPT) 19 U/L Alkaline Phosphatase 116 U/L Total Protein 5.9 gm/dl Albumin 2.4 gm/dl Globulin 3.5 gm/dl Albumin/Globulin Ratio 0.7 Triglycerides Level 99 mg/dl Cholesterol Level 86 mg/dl HDL Cholesterol 41 mg/dl LDL Cholesterol, Calculated 25 mg/dl VLDL Cholesterol, Calculated 20 mg/dl Cholesterol/HDL Ratio 2.1 Amylase Level 248 U/L Lipase 2997 U/L Impression Patient is a 57 year old female w/ abrupt onset nausea, vomiting and abd pain, CT evidence of acute pancreatitis w/o evidence of abscess. She does have extensive history of ETOH use. She was admitted in April w/ acute liver injury from DILI and transferred to [facility] for treatment w/ normalization of her LFTs. Drug induced pancreatitis vs ETOH induced pancreatitis vs biliary induced pancreatitis. Plan - Antiemetics PRN - Analgesia PRN - LR 200 ml/hr - please increase to this dose, pt tells me this was recently decreased as IV site was bothersome - ETOH withdrawal protocol - ETOH cessation - Daily LFTs - Pt will need MRI imaging of liver to rule out biliary obstruction of there is elevation of LFTs - Outpatient EUS GI to follow. Please call with any questions or concerns. Attg add: I interviewed and examined pt, reviewed chart and labs. Pt with h/o alcohol and narcotic use, seen in ER on August 2017 for abd pain with nl LFT' s and lipase, now admit from ER for worsening abd pain, Lipase > 2000, normal transaminases and bili with mildly increased alk phos, no evidence of hemoconcentration. Trigs, calcium Non con CT and ultrasound done - sludge on CT , CBD WNL on uls, mod davion-panc infilt change on CT. Overnight, pt made NPO, received IVF's + analgesia. Pancreatitis - Suspect alcohol or narcotic related panc, although cannot rule out biliary disease or other drug induced injury (amiodarone?). Rec hydration, anlagesic, diet as tolerated. Consider eventual EUS.
[2017-10-15] MEDS: PANTOprazole INJ 40 MG in SYRINGE 0 ML IV SCH (12:00)
--- NOTE | 2017-10-15 12:57 | Progress Note ---
Medicine Progress Note Date & Time of Visit: Oct 15, 2017 at 12:14. Subjective Pt was seen and examined Lying in bed with no distress Pt said that she continues to have pain in her mid epigastric area Pt said that said that on Wednesday she had a couple beers She said that her pain is like a 9/10 in severity Denies any chest pain, palpitation, diarrhea and vomiting currently Objective Last 8 Hrs Date Time Temp Pulse Resp B/P (MAP) Pulse Ox O2 Delivery O2 Flow Rate FiO2 10/15/17 11:55 36.6 83 20 126/74 (91) 94 10/15/17 11:34 86 127/84 10/15/17 08:00 Room Air 10/15/17 07:54 36.5 89 20 111/67 (82) 93 10/15/17 05:07 36.7 89 20 110/65 (80) 91 Room Air Physical Exam: General- No acute distress Head- atraumatic Eyes- PERRL, EOMI ENT- oropharynx clear Neck- supple, no JVD Lungs- clear to auscultation Heart- regular rhythm; no murmur Abdomen- +tenderness Extremities- no calf tenderness Neuro- alert, oriented x 3; PERRL, EOMI Skin- warm & dry Laboratory Results: Last 24 Hours Test 10/14/17 12:55 10/14/17 13:45 10/14/17 20:12 10/15/17 01:12 White Blood Count 11.67 K/uL Red Blood Count 4.62 M/uL Hemoglobin 14.3 g/dL Hematocrit 40.7 % Mean Corpuscular Volume 88.1 fL Mean Corpuscular Hemoglobin 31.0 pg Mean Corpuscular Hemoglobin Concent 35.1 g/dl Platelet Count 330 K/uL Mean Platelet Volume 9.7 fL Neutrophils (%) (Auto) 76.5 % Lymphocytes (%) (Auto) 16.2 % Monocytes (%) (Auto) 6.5 % Eosinophils (%) (Auto) 0.2 % Basophils (%) (Auto) 0.3 % Neutrophils # (Auto) 8.92 K/uL Lymphocytes # (Auto) 1.89 K/uL Monocytes # (Auto) 0.76 K/uL Eosinophils # (Auto) 0.02 K/uL Basophils # (Auto) 0.04 K/uL RDW Standard Deviation 61.4 fL RDW Coefficient of Variation 19.2 % Immature Granulocyte % (Auto) 0.3 % Immature Granulocyte # (Auto) 0.04 K/uL Prothrombin Time 20.7 SECONDS Prothromb Time International Ratio 2.0 Activated Partial Thromboplast Time 30.8 SECONDS Partial Thromboplastin Ratio 1.2 Sodium Level 131 mmol/L Potassium Level 3.7 mmol/L Chloride Level 95 mmol/L Carbon Dioxide Level 20 mmol/L Anion Gap 16.0 mmol/L Blood Urea Nitrogen 7 mg/dl Creatinine 0.77 mg/dl Est Creatinine Clear Calc Drug Dose 73.1 ml/min Estimated GFR () 99.3 Estimated GFR (Non- 85.7 BUN/Creatinine Ratio 9.6 Random Glucose 102 mg/dl Calcium Level 8.1 mg/dl Total Bilirubin 0.6 mg/dl Direct Bilirubin mg/dl Aspartate Amino Transf (AST/SGOT) 35 U/L Alanine Aminotransferase (ALT/SGPT) 27 U/L Alkaline Phosphatase 136 U/L Total Creatine Kinase 47 U/L Creatine Kinase MB 0.6 ng/ml Creatine Kinase MB Ratio 1.3 Troponin I < 0.015 ng/ml < 0.015 ng/ml < 0.015 ng/ml Total Protein 6.7 gm/dl Albumin 3.0 gm/dl Lipase 2514 U/L Chemistry Specimen Hemolysis Influenza Type A Antigen Neg for Influ A Influenza Type B Antigen Neg for Influ B Test 10/15/17 06:44 White Blood Count 7.16 K/uL Red Blood Count 3.93 M/uL Hemoglobin 12.2 g/dL Hematocrit 35.5 % Mean Corpuscular Volume 90.3 fL Mean Corpuscular Hemoglobin 31.0 pg Mean Corpuscular Hemoglobin Concent 34.4 g/dl RDW Standard Deviation 63.3 fL RDW Coefficient of Variation 19.6 % Platelet Count 188 K/uL Mean Platelet Volume 9.8 fL Sodium Level 134 mmol/L Potassium Level 3.2 mmol/L Chloride Level 101 mmol/L Carbon Dioxide Level 26 mmol/L Anion Gap 7.0 mmol/L Blood Urea Nitrogen 3 mg/dl Creatinine 0.64 mg/dl Est Creatinine Clear Calc Drug Dose 80.2 ml/min Estimated GFR () 114.8 Estimated GFR (Non- 99.1 BUN/Creatinine Ratio 4.4 Random Glucose 81 mg/dl Calcium Level 7.6 mg/dl Total Bilirubin 0.9 mg/dl Direct Bilirubin 0.2 mg/dl Aspartate Amino Transf (AST/SGOT) 25 U/L Alanine Aminotransferase (ALT/SGPT) 19 U/L Alkaline Phosphatase 116 U/L Total Protein 5.9 gm/dl Albumin 2.4 gm/dl Globulin 3.5 gm/dl Albumin/Globulin Ratio 0.7 Triglycerides Level 99 mg/dl Cholesterol Level 86 mg/dl HDL Cholesterol 41 mg/dl LDL Cholesterol, Calculated 25 mg/dl VLDL Cholesterol, Calculated 20 mg/dl Cholesterol/HDL Ratio 2.1 Amylase Level 248 U/L Lipase 2997 U/L Assessment & Plan Acute pancreatitis: Present on admission with abdominal pain associated with N/V Lipase trending up today about 3K CT abd/pelvis with extensive acute pancreatitis and considerable peripancreatic infiltrative change U/S showed no peripancreatic fluid collections identified. Ultrasonographically normal gallbladder. 7 mm common bile duct. Drank a few beers on Wednesday Triglyceride wnl Keep NPO gastro on board Recommended MRI imaging of liver to rule out biliary obstruction of there is elevation of LFTs Plan for outpatient EUS Continue IVF, anti-emesis and Pain control continue monitor electrolytes Chest pain: Mostly atypical Troponin all 3 sets negative EKG showed no ischemic changes No arrhythmia on tele Continue monitor Diarrhea: Stable Continue monitor Alcohol abuse Counseling on alcohol cessation Will monitor for sign of Withdrawn Last drink was on Wednesday Hypokalemia K replaced Continue monitor BMP Paroxysmal A Fib Currently in NSR INR pending Continue IV Lopressor 2.5mg Q6H for rate/rhythm control Will restart coumadin today if able to tolerate po HTN: Stable Continue IV lopressor and hydralazine 5mg Q6H PRN if SBP > 160 HLD: Resume statin when able to tolerate PO medication LDL at goal S/p Left BKA: On IV dilaudid for the pancreatitis Continue plavix, aspirin DVT Ppx INR was 2 yesterday Will restart coumadin Will start on heparin subq if INR below 2 Code status: FULL CODE Disposition Continue monitor in tele Current Inpatient Medications: Current Inpatient Medications Medications (Trade) Dose Ordered Sig/Rosa Route Start Time Stop Time Status Last Admin Dose Admin Polyethylene (Miralax Powder Packet) 17 gm DAILY PRN PO 10/14/17 19:30 11/13/17 19:29 Docusate Sodium (coLACE CAP) 100 mg BID PO 10/14/17 21:00 11/13/17 20:59 Ondansetron HCl (Zofran Inj) 4 mg Q4H PRN IV 10/14/17 19:30 11/13/17 19:29 10/14/17 23:41 4 MG Hydromorphone HCl (Dilaudid Inj) 0.5 mg Q3H PRN IV 10/14/17 19:30 10/28/17 19:29 10/15/17 08:40 0.5 MG Hydromorphone HCl (Dilaudid Inj) 1 mg Q3H PRN IV 10/14/17 19:30 10/28/17 19:29 10/15/17 11:31 1 MG Lactated Ringer's 1,000 ml @ 150 mls/hr Q6H40M IV 10/14/17 21:00 11/13/17 20:59 10/15/17 11:35 150 MLS/HR Metoprolol Tartrate (Lopressor Iv) 2.5 mg Q6H IV. 10/14/17 22:00 11/13/17 21:59 10/15/17 11:34 2.5 MG Hydralazine HCl (HydrALAZINE INJ) 5 mg Q6H PRN IV. 10/14/17 21:00 11/13/17 20:59 10/14/17 23:40 5 MG Pantoprazole Sodium 40 mg/ Syringe 10 ml @ 5 mls/min DAILY@11 IV 10/15/17 11:00 11/14/17 10:59 10/15/17 12:00 5 MLS/MIN Warfarin Sodium (Coumadin Tab) 5 mg SuMoTuThFr@1600 PO 10/15/17 16:00 11/14/17 15:59 Warfarin Sodium (Coumadin Tab) 7.5 mg WeSa@1600 PO 10/16/17 16:00 11/15/17 15:59 Potassium Chloride/Sodium Chloride 1,000 ml @ 150 mls/hr Q6H40M IV 10/15/17 12:00 11/14/17 11:59 UNV
[2017-10-15] MEDS: NSS + 20MEQ KCL 1000ML 1,000 ML IV SCH ×2 (13:10→18:47)
[2017-10-15 13:26] LABS: INR 2.3 (0.9-1.1)
[2017-10-15] MEDS ORDERED: WARFARIN SOD 5 MG TAB PO SCH (16:00)
[2017-10-15] MEDS ORDERED: ZOLPIDEM TARTRATE 5 MG TAB PO PRN (20:00)
[2017-10-16] VITALS (7 sets, daily range): BP systolic 111–135; BP diastolic 73–79; PULSE 64–73; TEMP 36.8–37.1; O2SAT 95–99
[2017-10-16] MEDS: NSS + 20MEQ KCL 1000ML 1,000 ML IV SCH (01:19)
[2017-10-16] MEDS: SODIUM CHLORIDE 0.9% 1000ML 1,000 ML IV SCH ×4 (01:19→20:30)
[2017-10-16] MEDS: HYDROmorphone INJ 0.5 MG/0.5 ML SYR IV PRN ×2 (01:19→05:13)
[2017-10-16] MEDS: METOPROLOL TARTRATE 1 MG/ML VIAL IV. SCH ×4 (05:15→23:26)
[2017-10-16] MEDS: HYDROmorphone INJ 1 MG/ML SYR IV PRN ×3 (07:31→20:31)
[2017-10-16] MEDS: DOCUSATE SODIUM 100 MG CAP PO SCH ×2 (07:32→20:32)
[2017-10-16 07:44] LABS: HEMATOCRIT 32.6 % (37-47); HEMOGLOBIN 10.9 g/dL (12.0-16.0); MEAN CELL VOLUME 92.4 fL (80-100); MEAN CORPUSCULAR HEMOGLOBIN 30.9 pg (25-34); MEAN CORPUSCULAR HGB CONC 33.4 g/dl (32-36); MEAN PLATELET VOLUME 10.3 fL (7.4-10.4); PLATELET COUNT 147 K/uL (130-400); RED CELL DISTRIBUTION WIDTH CV 19.9 % (11.5-14.5); RED CELL DISTRIBUTION WIDTH SD 66.5 fL (36.4-46.3); WHITE BLOOD COUNT 5.93 K/uL (4.8-10.8)
[2017-10-16 07:55] LABS: INR 2.6 (0.9-1.1)
[2017-10-16 08:16] LABS: ALBUMIN 2.1 gm/dl (3.4-5.0); CALCIUM 7.7 mg/dl (8.5-10.1); CREATININE 0.37 mg/dl (0.60-1.20); POTASSIUM 3.6 mmol/L (3.5-5.1); TOTAL PROTEIN 5.2 gm/dl (6.4-8.2)
[2017-10-16] MEDS: OXYCODONE HCL IR 5 MG TAB (IMMEDIATE RELEASE) PO PRN ×4 (10:19→23:27)
[2017-10-16] MEDS: PANTOprazole INJ 40 MG in SYRINGE 0 ML IV SCH (11:26)
--- NOTE | 2017-10-16 12:36 | Gastroenterology Progress Note ---
Gastroenterology Progress Note Patient seen and examined. Being followed for acute pancreatitis, etiology seems to be alcohol related. Labs improved with down trended Hct and BUN, tolerated diet today. on exam: abdomen is soft, nontender. Recommendations: Diet as tolerated. Outpatient EUS. GI will sign off.
[2017-10-16] MEDS ORDERED: WARFARIN SOD 7.5 MG TAB PO SCH (16:00)
[2017-10-16] MEDS ORDERED: NURSING VERBAL MED ORDER ONE ×2 (16:45→21:00)
[2017-10-16] MEDS: WARFARIN SOD 5 MG TAB PO SCH (17:42)
--- NOTE | 2017-10-16 19:47 | Progress Note ---
Medicine Progress Note Date & Time of Visit: Oct 16, 2017 at 19:36. Subjective Pt was seen and examined Lying in bed with no distress Pt said that abdominal pain improved She tolerates clear liquid diet Denies any chest pain, palpitation, dizziness and SOB Objective Last 8 Hrs Date Time Temp Pulse Resp B/P (MAP) Pulse Ox O2 Delivery O2 Flow Rate FiO2 10/16/17 17:44 59 102/65 10/16/17 16:24 36.8 66 18 111/75 (87) 99 Room Air 10/16/17 12:00 Room Air Physical Exam: General- No acute distress Head- atraumatic Eyes- PERRL, EOMI ENT- oropharynx clear Neck- supple, no JVD Lungs- clear to auscultation Heart- regular rhythm; no murmur Abdomen- +tenderness Extremities- no calf tenderness Neuro- alert, oriented x 3; PERRL, EOMI Skin- warm & dry Laboratory Results: Last 24 Hours Test 10/16/17 07:26 White Blood Count 5.93 K/uL Red Blood Count 3.53 M/uL Hemoglobin 10.9 g/dL Hematocrit 32.6 % Mean Corpuscular Volume 92.4 fL Mean Corpuscular Hemoglobin 30.9 pg Mean Corpuscular Hemoglobin Concent 33.4 g/dl RDW Standard Deviation 66.5 fL RDW Coefficient of Variation 19.9 % Platelet Count 147 K/uL Mean Platelet Volume 10.3 fL Prothrombin Time 27.2 SECONDS Prothromb Time International Ratio 2.6 Sodium Level 138 mmol/L Potassium Level 3.6 mmol/L Chloride Level 106 mmol/L Carbon Dioxide Level 24 mmol/L Anion Gap 9.0 mmol/L Blood Urea Nitrogen 2 mg/dl Creatinine 0.37 mg/dl Est Creatinine Clear Calc Drug Dose 138.7 ml/min Estimated GFR () 137.5 Estimated GFR (Non- 118.6 BUN/Creatinine Ratio 5.8 Random Glucose 69 mg/dl Calcium Level 7.7 mg/dl Total Bilirubin 0.8 mg/dl Direct Bilirubin 0.3 mg/dl Aspartate Amino Transf (AST/SGOT) 31 U/L Alanine Aminotransferase (ALT/SGPT) 17 U/L Alkaline Phosphatase 95 U/L Total Protein 5.2 gm/dl Albumin 2.1 gm/dl Globulin 3.1 gm/dl Albumin/Globulin Ratio 0.7 Amylase Level 122 U/L Lipase 746 U/L Assessment & Plan Acute pancreatitis: Present on admission with abdominal pain associated with N/V Lipase trending up today about 3K CT abd/pelvis with extensive acute pancreatitis and considerable peripancreatic infiltrative change U/S showed no peripancreatic fluid collections identified. Ultrasonographically normal gallbladder. 7 mm common bile duct. Drank a few beers on Wednesday Triglyceride wnl Keep NPO gastro on board Recommended MRI imaging of liver to rule out biliary obstruction of there is elevation of LFTs Plan for outpatient EUS Continue IVF, anti-emesis and Pain control continue monitor electrolytes 10/16 Pain improved Tolerated clear liquid diet Diet advance to soft Lipase trending down Will decrease IVF Continue pain control counseling on alcohol cessation Chest pain: Mostly atypical Troponin all 3 sets negative EKG showed no ischemic changes No arrhythmia on tele resolved Diarrhea: Stable Continue monitor Improved Alcohol abuse Counseling on alcohol cessation No sign of alcohol Withdrawn Last drink was on Wednesday Hypokalemia K replaced Continue monitor BMP Paroxysmal A Fib Currently in NSR INR 2.6 resume oral med HTN: Stable Continue IV lopressor and hydralazine 5mg Q6H PRN if SBP > 160 HLD: Resume statin when able to tolerate PO medication LDL at goal S/p Left BKA: On IV dilaudid for the pancreatitis Continue plavix, aspirin DVT Ppx INR 2.6 Continue coumadin Code status: FULL CODE Disposition Continue monitor in tele Possible discharge tomorrow Current Inpatient Medications: Current Inpatient Medications Medications (Trade) Dose Ordered Sig/Rosa Route Start Time Stop Time Status Last Admin Dose Admin Polyethylene (Miralax Powder Packet) 17 gm DAILY PRN PO 10/14/17 19:30 11/13/17 19:29 Docusate Sodium (coLACE CAP) 100 mg BID PO 10/14/17 21:00 11/13/17 20:59 10/15/17 18:48 100 MG Ondansetron HCl (Zofran Inj) 4 mg Q4H PRN IV 10/14/17 19:30 11/13/17 19:29 10/14/17 23:41 4 MG Hydromorphone HCl (Dilaudid Inj) 0.5 mg Q3H PRN IV 10/14/17 19:30 10/28/17 19:29 10/16/17 05:13 0.5 MG Metoprolol Tartrate (Lopressor Iv) 2.5 mg Q6H IV. 10/14/17 22:00 11/13/17 21:59 10/16/17 11:27 2.5 MG Hydralazine HCl (HydrALAZINE INJ) 5 mg Q6H PRN IV. 10/14/17 21:00 11/13/17 20:59 10/14/17 23:40 5 MG Pantoprazole Sodium 40 mg/ Syringe 10 ml @ 5 mls/min DAILY@11 IV 10/15/17 11:00 11/14/17 10:59 10/16/17 11:26 5 MLS/MIN Sodium Chloride 1,000 ml @ 150 mls/hr Q6H40M IV 10/16/17 01:50 11/15/17 01:49 10/16/17 13:59 150 MLS/HR Hydromorphone HCl (Dilaudid Inj) 1 mg Q6 PRN IV 10/16/17 09:15 10/28/17 19:29 10/16/17 13:59 1 MG Amiodarone HCl (Cordarone Tab) 200 mg DAILY PO 10/17/17 09:00 11/16/17 08:59 Aspirin (Ecotrin Tab) 81 mg DAILY PO 10/17/17 09:00 11/16/17 08:59 Metoprolol Tartrate (Lopressor Tab) 25 mg BID PO 10/16/17 21:00 11/15/17 20:59 Oxycodone HCl (Roxicodone Immediate Rel Tab) 10 mg Q4HWA PRN PO 10/16/17 09:15 10/30/17 09:14 10/16/17 10:19 10 MG Warfarin Sodium (Coumadin Tab) 5 mg SuMoFrSa@1600 PO 10/16/17 17:30 11/15/17 17:29 10/16/17 17:42 5 MG Warfarin Sodium (Coumadin Tab) 2.5 mg TuWeTh@1600 PO 10/19/17 16:00 11/18/17 15:59
[2017-10-16] MEDS ORDERED: LORAZEPAM 0.5 MG TAB PO ONE (20:30)
[2017-10-16] MEDS: METOPROLOL TARTRATE 25 MG TAB PO SCH (20:31)
[2017-10-16] MEDS ORDERED: RANITIDINE HCL 150 MG TAB PO SCH (21:00)
[2017-10-16] MEDS ORDERED: ATORVASTATIN 40 MG TAB PO SCH (21:00)
[2017-10-16] MEDS ORDERED: ZOLPIDEM TARTRATE 5 MG TAB PO PRN (21:15)
[2017-10-17] MEDS: HYDROmorphone INJ 1 MG/ML SYR IV PRN (02:32)
[2017-10-17] MEDS: OXYCODONE HCL IR 5 MG TAB (IMMEDIATE RELEASE) PO PRN ×4 (03:13→15:56)
[2017-10-17] MEDS: SODIUM CHLORIDE 0.9% 1000ML 1,000 ML IV SCH (03:13)
[2017-10-17] MEDS: METOPROLOL TARTRATE 1 MG/ML VIAL IV. SCH ×3 (03:13→15:57)
[2017-10-17 04:05] VITALS: BP 142/86; PULSE 66; TEMP 36.9; O2SAT 97
[2017-10-17] MEDS: DOCUSATE SODIUM 100 MG CAP PO SCH ×2 (07:17→10:30)
[2017-10-17] MEDS: METOPROLOL TARTRATE 25 MG TAB PO SCH (07:18)
[2017-10-17 07:27] LABS: ALBUMIN 2.1 gm/dl (3.4-5.0); CALCIUM 7.6 mg/dl (8.5-10.1); CREATININE 0.42 mg/dl (0.60-1.20); POTASSIUM 3.3 mmol/L (3.5-5.1)
[2017-10-17 07:30] LABS: TOTAL PROTEIN 5.4 gm/dl (6.4-8.2)
[2017-10-17 08:05] VITALS: BP 127/80; PULSE 62; TEMP 36.8; O2SAT 96
[2017-10-17] MEDS ORDERED: POTASSIUM CHLORIDE 10 MEQ TABCR PO ONE (08:15)
[2017-10-17] MEDS ORDERED: CLOPIDOGREL BISULFATE 75 MG TAB PO SCH (09:00)
[2017-10-17] MEDS ORDERED: ASPIRIN 81 MG ECTAB PO SCH (09:00)
[2017-10-17] MEDS ORDERED: FLUOXETINE HCL 20 MG CAP PO SCH (09:00)
[2017-10-17] MEDS ORDERED: AMIODARONE 200 MG TAB PO SCH (09:00)
[2017-10-17] MEDS: HYDROmorphone INJ 0.5 MG/0.5 ML SYR IV PRN (09:02)
[2017-10-17] MEDS: PANTOprazole INJ 40 MG in SYRINGE 0 ML IV SCH (10:29)
[2017-10-17 11:37] VITALS: BP 117/71; PULSE 57; TEMP 36.7; O2SAT 94
[2017-10-17] MEDS ORDERED: METHYLNALTREXONE BROMIDE INJ 12 MG/0.6 ML SYR SQ ONE (13:45)
[2017-10-17 15:20] VITALS: BP 108/73; PULSE 58; TEMP 36.7; O2SAT 98
[2017-10-17] MEDS: WARFARIN SOD 5 MG TAB PO SCH (15:56)
--- NOTE | 2017-10-17 16:28 | Progress Note ---
Medicine Progress Note Date & Time of Visit: Oct 17, 2017 at 11:18. Subjective Pt was seen and examined Sitting in her potty trying to have a BM Pt said that she has not had any BM in the last few days She said that she was having diarrhea prior admission She said that her abdominal pain improved She tolerated regular diet Denies any chest pain, palpitation, dizziness and SOB Objective Last 8 Hrs Date Time Temp Pulse Resp B/P (MAP) Pulse Ox O2 Delivery O2 Flow Rate FiO2 10/17/17 15:57 58 108/73 10/17/17 15:20 36.7 58 20 108/73 (85) 98 Room Air 10/17/17 12:00 Room Air 10/17/17 11:37 36.7 57 18 117/71 (86) 94 Room Air Physical Exam: General- No acute distress Head- atraumatic Eyes- PERRL, EOMI ENT- oropharynx clear Neck- supple, no JVD Lungs- clear to auscultation Heart- regular rhythm; no murmur Abdomen- +tenderness, +BS Extremities- no calf tenderness Neuro- alert, oriented x 3; PERRL, EOMI Skin- warm & dry Laboratory Results: Last 24 Hours Test 10/17/17 06:22 Sodium Level 136 mmol/L Potassium Level 3.3 mmol/L Chloride Level 104 mmol/L Carbon Dioxide Level 26 mmol/L Anion Gap 6.0 mmol/L Blood Urea Nitrogen 4 mg/dl Creatinine 0.42 mg/dl Est Creatinine Clear Calc Drug Dose 122.2 ml/min Estimated GFR () 131.9 Estimated GFR (Non- 113.8 BUN/Creatinine Ratio 8.4 Random Glucose 62 mg/dl Calcium Level 7.6 mg/dl Total Bilirubin 0.7 mg/dl Direct Bilirubin 0.3 mg/dl Aspartate Amino Transf (AST/SGOT) 25 U/L Alanine Aminotransferase (ALT/SGPT) 15 U/L Alkaline Phosphatase 91 U/L Total Protein 5.4 gm/dl Albumin 2.1 gm/dl Globulin 3.3 gm/dl Albumin/Globulin Ratio 0.6 Amylase Level 69 U/L Lipase 426 U/L Date/Time Source Procedure Growth Status 10/17/17 15:25 Stool C.difficile Toxin B Gene (PCR) Pending Received 10/17/17 15:25 Stool Shiga Toxin Test Pending Received 10/17/17 15:25 Stool Stool Culture Pending Received Assessment & Plan Acute pancreatitis: Present on admission with abdominal pain associated with N/V Lipase trending up today about 3K CT abd/pelvis with extensive acute pancreatitis and considerable peripancreatic infiltrative change U/S showed no peripancreatic fluid collections identified. Ultrasonographically normal gallbladder. 7 mm common bile duct. Drank a few beers on Wednesday Triglyceride wnl Keep NPO gastro on board Recommended MRI imaging of liver to rule out biliary obstruction of there is elevation of LFTs Plan for outpatient EUS Continue IVF, anti-emesis and Pain control continue monitor electrolytes 10/17 Pain improved Tolerated regular diet Lipase wnl IVF d/c Continue pain control counseling on alcohol cessation Constipation Possible related to Opioid Pt had a BM after given Relistor Continue stool softener Chest pain: Mostly atypical Troponin all 3 sets negative EKG showed no ischemic changes No arrhythmia on tele resolved Diarrhea: Stable Has been constipated resolved Alcohol abuse Counseling on alcohol cessation No sign of alcohol Withdrawn Last drink was on Wednesday Hypokalemia K replaced Continue monitor BMP Paroxysmal A Fib Currently in NSR INR 2.6 resume oral med Continue follow with the coag clinic HTN: Stable Oral med resumed HLD: statin resume LDL at goal S/p Left BKA: On IV dilaudid for the pancreatitis Continue plavix, aspirin DVT Ppx INR 2.6 Continue coumadin Code status: FULL CODE Disposition Continue monitor in tele Possible discharge today Current Inpatient Medications: Current Inpatient Medications Medications (Trade) Dose Ordered Sig/Rosa Route Start Time Stop Time Status Last Admin Dose Admin Polyethylene (Miralax Powder Packet) 17 gm DAILY PRN PO 10/14/17 19:30 11/13/17 19:29 10/17/17 10:29 17 GM Docusate Sodium (coLACE CAP) 100 mg BID PO 10/14/17 21:00 11/13/17 20:59 10/17/17 10:30 100 MG Ondansetron HCl (Zofran Inj) 4 mg Q4H PRN IV 10/14/17 19:30 11/13/17 19:29 10/14/17 23:41 4 MG Hydromorphone HCl (Dilaudid Inj) 0.5 mg Q3H PRN IV 10/14/17 19:30 10/28/17 19:29 10/17/17 09:02 0.5 MG Metoprolol Tartrate (Lopressor Iv) 2.5 mg Q6H IV. 10/14/17 22:00 11/13/17 21:59 10/16/17 11:27 2.5 MG Hydralazine HCl (HydrALAZINE INJ) 5 mg Q6H PRN IV. 10/14/17 21:00 11/13/17 20:59 10/14/17 23:40 5 MG Pantoprazole Sodium 40 mg/ Syringe 10 ml @ 5 mls/min DAILY@11 IV 10/15/17 11:00 11/14/17 10:59 10/17/17 10:29 5 MLS/MIN Amiodarone HCl (Cordarone Tab) 200 mg DAILY PO 10/17/17 09:00 11/16/17 08:59 10/17/17 07:19 200 MG Aspirin (Ecotrin Tab) 81 mg DAILY PO 10/17/17 09:00 11/16/17 08:59 10/17/17 07:18 81 MG Metoprolol Tartrate (Lopressor Tab) 25 mg BID PO 10/16/17 21:00 11/15/17 20:59 10/17/17 07:18 25 MG Oxycodone HCl (Roxicodone Immediate Rel Tab) 10 mg Q4HWA PRN PO 10/16/17 09:15 10/30/17 09:14 10/17/17 15:56 10 MG Warfarin Sodium (Coumadin Tab) 5 mg SuMoFrSa@1600 PO 10/16/17 17:30 11/15/17 17:29 10/17/17 15:56 5 MG Warfarin Sodium (Coumadin Tab) 2.5 mg TuWeTh@1600 PO 10/19/17 16:00 11/18/17 15:59 Atorvastatin Calcium (Lipitor Tab) 80 mg HS PO 10/16/17 21:00 11/15/17 20:59 10/16/17 22:07 80 MG Clopidogrel Bisulfate (plAVix TAB) 75 mg DAILY PO 10/17/17 09:00 11/16/17 08:59 10/17/17 07:17 75 MG Fluoxetine HCl (Prozac Cap) 20 mg DAILY PO 10/17/17 09:00 11/16/17 08:59 10/17/17 07:17 20 MG Ranitidine HCl (zANTac TAB) 300 mg HS PO 10/16/17 21:00 11/15/17 20:59 10/16/17 22:07 300 MG
[2017-10-17] MEDS ORDERED: OXYC1TAB3 PO ×2 (16:47→16:57)
[2017-10-17] MEDS ORDERED: CLC100 PO (16:47)
[2017-10-17] MEDS ORDERED: CMD/25 PO (16:47)
--- NOTE | 2017-10-17 16:56 | Discharge Instructions ---
Discharge Instructions Date of Service Oct 17, 2017. Admission Reason for Admission: Acute Pancreatitis, Chest Pain Discharge Discharge Diagnosis / Problem: Acute pancreatitis, Alcohol abuse, Paroxysmal atrial fibrillation Discharge Goals Goal(s): Decrease discomfort, Improve function, Improve disease control Activity Recommendations Activity Limitations: resume your previous activity (as tolerated) . Instructions / Follow-Up Instructions / Follow-Up Follow up with your primary care provider dr. Tai on 10/21 @ 1:05 PM Follow up with gastroenterology for endoscopy U/S (Your physician will arrange for that) Do not drive or operate any machine while you are on narcotic Increase potassium intake in your diet Continue Coumadin as instructing by the Coumadin clinic Follow up with the Coumadin clinic Fall precaution Counseling on alcohol cessation and smoking cessation Current Hospital Diet Patient's current hospital diet: Low Fat Diet Discharge Diet Recommended Diet: Regular Diet (diet as tolerated) Pending Studies Studies pending at discharge: no Laboratory Results Lipid Panel Test 10/15/17 06:44 Range/Units Triglycerides Level 99 0-150 mg/dl Cholesterol Level 86 0-200 mg/dl HDL Cholesterol 41 mg/dl Cholesterol/HDL Ratio 2.1 LDL Cholesterol, Calculated 25 mg/dl Medical Emergencies . Who to Call and When: Medical Emergencies: If at any time you feel your situation is an emergency, please call 911 immediately. . Non-Emergent Contact Non-Emergency issues call your: Primary Care Provider Call Non-Emergent contact if: your pain is not controlled, your pain is worsening, you have any medication questions . . "Provider Documentation" section prepared by Rosana Logan. . VTE Core Measure Inpt VTE Proph given/why not?: Warfarin (Coumadin) [place] Drug Monitoring Program Search Results: patient reviewed within database
[2017-10-17 17:23] VITALS: BP 108/73; PULSE 58; TEMP 36.7; O2SAT 98
[2017-10-17] MEDS ORDERED: OXYCODONE IR HOME PACK PO ONE (18:00)
--- NOTE | 2017-10-18 07:58 | Discharge Summary ---
Discharge Summary Date of Service Oct 18, 2017. Discharge Summary Admission Date: Oct 14, 2017 at 19:26 Discharge Date: Oct 17, 2017 Discharge Disposition: Home Principal Diagnosis: Acute pancreatitis Secondary Diagnoses/Problems: Alcohol abuse Paroxysmal atrial fibrillation Constipation Hypokalemia S/p Left BKA Dyslipidemia HTN Procedures: [~ rep ct add3]] BILIARY ULTRASOUND CLINICAL HISTORY: Pancreatitis COMPARISON STUDY: No previous studies for comparison. FINDINGS: The pancreas was poorly visualized. No peripancreatic fluid collections were visualized. No focal hepatic masses are visualized. No gallstones are identified. The common bile duct measures 7 mm in maximal diameter. There is no right-sided hydronephrosis. IMPRESSION: 1. Suboptimal visualization the pancreas 2. No peripancreatic fluid collections identified 3. Ultrasonographically normal gallbladder. 7 mm common bile duct. Electronically signed by: Greg Moreira M.D. 10/15/2017 10:11 AM Dictated Date/Time: 10/15/2017 10:08 AM ABD/PELVIS NO IV OR ORAL CONT CT DOSE: 295.35 mGy.cm HISTORY: Pain. Nausea. upper abd pain, vomiting, chest pain TECHNIQUE: Multiaxial CT images of the abdomen and pelvis were performed without contrast. A dose lowering technique was utilized adhering to the principles of ALARA. COMPARISON STUDY: 09/24/2017 FINDINGS: Lung bases are clear. Interval development of generalized edematous change of the pancreas as well as the peripancreatic fascial planes and associated soft tissues. This appearance is most consistent with that of acute pancreatitis. No evidence for drainable abscess or collection. Liver and spleen appear uniform. Nodularity left adrenal is stable. Right adrenal is unremarkable. Moderate gallbladder sludge. Kidneys negative for hydronephrosis. Trace amount of free ascitic fluid in the right superior paracolic gutter and adjacent to the inferior margin of the right hepatic lobe. Bowel pattern overall is nonobstructive. Mild scattered colonic diverticulosis. No evidence for acute diverticulitis. Significant degenerative and atherosclerotic change abdominal and to a greater extent pelvic arterial vasculature. IMPRESSION: 1. Extensive acute pancreatitis. 2. Considerable peripancreatic infiltrative change, although there is no evidence for abscess collection or phlegmon. 3. Unchanging nodular density of the left adrenal. The above report was generated using voice recognition software. It may contain grammatical, syntax or spelling errors. Electronically signed by: Santos Mckenzie M.D. 10/14/2017 3:05 PM Dictated Date/Time: 10/14/2017 3:01 PM [~ rep ct add3]] CHEST ONE VIEW PORTABLE HISTORY: 57 years-old Female CHEST PAIN acute atypical chest pain with vomiting and diarrhea COMPARISON: Chest radiograph 09/24/2017, CTA of the chest 10/08/2016 TECHNIQUE: Portable AP view of the chest FINDINGS: Calcified granuloma of the right upper lobe redemonstrated. Atherosclerosis of the aorta. Cardiomediastinal and hilar silhouettes are within normal limits. No pneumothorax, pleural effusion, focal airspace consolidation or overt pulmonary edema. Bones of the chest appear grossly intact. IMPRESSION: No acute process. The above report was generated using voice recognition software. It may contain grammatical, syntax or spelling errors. Electronically signed by: Hi Anderson M.D. 10/14/2017 1:43 PM Dictated Date/Time: 10/14/2017 1:41 PM Consultations: Gastro Medication Reconciliation New Medications: Docusate Sodium (Docusate Sodium) 100 Mg Cap 100 MG PO BID PRN for Constipation for 10 Days, #20 CAP Continued Medications: Amiodarone Hcl (Cordarone) 200 Mg Tab 200 MG PO DAILY, TAB Amlodipine (Norvasc) 10 Mg Tab 10 MG PO DAILY, TAB Aspirin (Aspirin Ec) 81 Mg Tab 81 MG PO DAILY Atorvastatin (Lipitor) 80 Mg Tab 80 MG PO HS, TAB Clopidogrel (Plavix) 75 Mg Tab 75 MG PO DAILY, TAB Fluoxetine (Prozac) 20 Mg Cap 20 MG PO DAILY, CAP Gabapentin (Gabapentin) 600 Mg Tab 2 TABS PO TID Metoprolol Tartrate (Lopressor) (Lopressor) 25 Mg Tab 25 MG PO BID, TAB Ondansetron Odt (Zofran Odt) 8 Mg Soltab 8 MG SL Q8 PRN for Nausea, TAB Oxycodone Ir (Roxicodone Ir) 5 Mg Tab 1-2 TAB PO Q8 PRN for Pain for 3 Days, #10 TAB (This prescription has been renewed) hold for lethargy or drowsiness Pantoprazole (Protonix) 40 Mg Tab 40 MG PO DAILY, TAB Promethazine Hcl (Phenergan Suppository) 25 Mg Supp 25 MG ME Q6H PRN for Nausea, SUPP Ranitidine (Zantac) 300 Mg Tab 300 MG PO HS, TAB Warfarin Sod (Jantoven) 5 Mg Tab 5 MG PO UD, TAB as per coumadin clinic instruction Warfarin Sod (Coumadin) 2.5 Mg Tab 1 TAB PO UD, TAB 3 Refills as per coumadin clinic instruction Admission Information HPI (per Admitting provider): This is a 57yo F with a PMH of paroxysmal A Fib (on coumadin), HTN, tobacco use disorder, PVD (s/p bilateral femoral endarterectomy in Sep 2016) and s/p Left BKA who presents with abdominal pain x 2 days. Describes pain as 10/10 constant dull, throbbing midepigastrium pain with radiation to chest. Associated symptoms include lightheadedness, persistent nausea and vomiting of bilious fluid. Also endorses several episodes of diarrhea over the past few days. Has been unable to tolerate PO intake and therefore hasn't taken any medication in 2 days. H/o appendectomy. Also endorses left-sided chest pain that began earlier today. Pain is sharp and intermittent, non-radiating. Denies fever, chills, headache, visual changes, palpitations, SOB, urinary symptoms, constipation or LE swelling. Denies history of MA, DVT or PE. Patient is on coumadin for A fib. Was admitted in Apr 2017 for acute liver failure 2/2 augmentin for leg infection and was life flighted to [place]. Underwent a L sided BKA following a fracture and multiple infections. Still experiencing a lot of nerve pain and takes oxycodone every 6 hours at home. Physical Exam (per Admitting): General Appearance: + mild distress, + pertinent finding (Pain with movement but able to clearly communicate.) Head: normocephalic, atraumatic Eyes: normal inspection, PERRL, sclerae normal ENT: normal ENT inspection, hearing grossly normal, pharynx normal (dry mucous membranes ) Neck: supple, thyroid normal, trachea midline Respiratory/Chest: chest non-tender, lungs clear, normal breath sounds, no respiratory distress, no accessory muscle use Cardiovascular: regular rate, rhythm, no murmur, normal peripheral pulses Abdomen/GI: normal bowel sounds, soft, no organomegaly, + tenderness ( Diffuse TTP with guarding in midepigastrium ) Back: normal inspection Extremities/Musculoskelatal: no calf tenderness, no pedal edema, + pertinent finding (S/p Left BKA. Amputation site without evidence of infection. ) Neurologic/Psych: no motor/sensory deficits, alert, normal mood/affect, oriented x 3 Skin: normal color, warm/dry Hospital Course Acute pancreatitis: Present on admission with abdominal pain associated with N/V Lipase trending up today about 3K CT abd/pelvis with extensive acute pancreatitis and considerable peripancreatic infiltrative change U/S showed no peripancreatic fluid collections identified. Ultrasonographically normal gallbladder. 7 mm common bile duct. Drank a few beers on Wednesday Triglyceride wnl Keep NPO gastro on board Recommended MRI imaging of liver to rule out biliary obstruction of there is elevation of LFTs Plan for outpatient EUS Continue IVF, anti-emesis and Pain control continue monitor electrolytes 10/17 Pain improved Tolerated regular diet Lipase wnl IVF d/c Continue pain control counseling on alcohol cessation Constipation Possible related to Opioid Pt had a BM after given Relistor Continue stool softener Chest pain: Mostly atypical Troponin all 3 sets negative EKG showed no ischemic changes No arrhythmia on tele resolved Diarrhea: Stable Has been constipated resolved Alcohol abuse Counseling on alcohol cessation No sign of alcohol Withdrawn Last drink was on Wednesday Hypokalemia K replaced Continue monitor BMP Paroxysmal A Fib Currently in NSR INR 2.6 resume oral med Continue follow with the coag clinic HTN: Stable Oral med resumed HLD: statin resume LDL at goal S/p Left BKA: On IV dilaudid for the pancreatitis Continue plavix, aspirin DVT Ppx INR 2.6 Continue coumadin Code status: FULL CODE Disposition Continue monitor in tele Possible discharge today Total time spent on discharge = 35 minutes This includes examination of the patient, discharge planning, medication reconciliation, and communication with other providers. Discharge Instructions Discharge Instructions Date of Service Oct 17, 2017. Admission Reason for Admission: Acute Pancreatitis, Chest Pain Discharge Discharge Diagnosis / Problem: Acute pancreatitis, Alcohol abuse, Paroxysmal atrial fibrillation Discharge Goals Goal(s): Decrease discomfort, Improve function, Improve disease control Activity Recommendations Activity Limitations: resume your previous activity (as tolerated) . Instructions / Follow-Up Instructions / Follow-Up Follow up with your primary care provider dr. Tai on 10/21 @ 1:05 PM Follow up with gastroenterology for endoscopy U/S (Your physician will arrange for that) Do not drive or operate any machine while you are on narcotic Increase potassium intake in your diet Continue Coumadin as instructing by the Coumadin clinic Follow up with the Coumadin clinic Fall precaution Counseling on alcohol cessation and smoking cessation Current Hospital Diet Patient's current hospital diet: Low Fat Diet Discharge Diet Recommended Diet: Regular Diet (diet as tolerated) Pending Studies Studies pending at discharge: no Laboratory Results Lipid Panel Test 10/15/17 06:44 Range/Units Triglycerides Level 99 0-150 mg/dl Cholesterol Level 86 0-200 mg/dl HDL Cholesterol 41 mg/dl Cholesterol/HDL Ratio 2.1 LDL Cholesterol, Calculated 25 mg/dl Medical Emergencies . Who to Call and When: Medical Emergencies: If at any time you feel your situation is an emergency, please call 911 immediately. . Non-Emergent Contact Non-Emergency issues call your: Primary Care Provider Call Non-Emergent contact if: your pain is not controlled, your pain is worsening, you have any medication questions . . "Provider Documentation" section prepared by Rosana Logan. . VTE Core Measure Inpt VTE Proph given/why not?: Warfarin (Coumadin) [place] Drug Monitoring [place] Search Results: patient reviewed within database Additional Copies To Fabio Tai M.D.
[2017-10-19] MEDS ORDERED: WARFARIN SOD 2.5 MG TAB PO SCH (16:00)
== END 2017-10-17 18:23 | disposition home or self-care (01) | DRG 440 ==
LOC: C.EDB 11:46 → C.MED 19:26 → ENRESERV 19:49
PROVIDERS: ADMIT Internal Medicine; ATTEND Internal Medicine
DX: K85.20 Alcohol induced acute pancreatitis without necrosis or infection (principal); F10.10 Alcohol abuse, uncomplicated; R07.89 Other chest pain; R19.7 Diarrhea, unspecified; E87.6 Hypokalemia; K59.03 Drug induced constipation; T40.2X5A Adverse effect of other opioids, initial encounter; I48.0 Paroxysmal atrial fibrillation; I10 Essential (primary) hypertension; E78.5 Hyperlipidemia, unspecified; I73.9 Peripheral vascular disease, unspecified; F32.9 Major depressive disorder, single episode, unspecified; F17.200 Nicotine dependence, unspecified, uncomplicated; Z95.820 Peripheral vascular angioplasty status with implants and grafts; Z89.512 Acquired absence of left leg below knee; Z90.49 Acquired absence of other specified parts of digestive tract; Z79.01 Long term (current) use of anticoagulants; Z79.02 Long term (current) use of antithrombotics/antiplatelets; Z79.82 Long term (current) use of aspirin; Z79.891 Long term (current) use of opiate analgesic; Z79.899 Other long term (current) drug therapy; Z88.0 Allergy status to penicillin; Z82.49 Family history of ischemic heart disease and other diseases of the circulatory system

== ENCOUNTER 2017-11-04 07:57 | Inpatient (IN) | payer BC ==
[~2017-11-04] VITALS: Ht 160 cm; Wt 61.4 kg
[2017-11-04] VITALS (8 sets, daily range): BP systolic 104–161; BP diastolic 64–85; PULSE 68–91; TEMP 37–37.3; O2SAT 91–97; Ht 160 cm; Wt 61.4 kg
[~2017-11-04 07:57] MED LIST changes: +CLC100 PO; +CMD/25 PO; -GABA1CAP4 PO; +NRN600 PO; -PROM1SUP19 PR; +PROM25SU28 PR; -WARF7.5T4 PO
--- NOTE | 2017-11-04 08:23 | EMERGENCY ROOM VISIT NOTE ---
History First contact with patient: 08:03 Chief Complaint: CHEST PAIN Stated Complaint: CHEST PAIN History of Present Illness The patient is a 57 year old female who presents to the Emergency Room with complaints of sharp epigastric pain radiating into the left chest which began yesterday proximally 4 PM. The patient states 2 weeks ago, she was admitted here and diagnosed with acute pancreatitis. At that time, they suspected alcohol as the cause. The patient does admit to drinking several drinks tonight 's ago. Associated with the pain, the patient also complains of nausea, vomiting, tight breathing with taking a deep breath. She states she has not been experiencing any constipation or diarrhea. She has been unable to tolerate any food or fluids. Yesterday, she slept all day due to the pain. She states when she tried to take her oxycodone, but did not help with her pain , and she was unable to tolerate keeping it down. She describes the pain as constant, and states she gets waves of sharp pains. There are no aggravating factors. Lying on her left side seems to alleviate the pain minimally. Review of Systems A complete 10 point review of systems was reviewed with the patient with pertinent positives and negatives as per history of present illness. All else were negative. Past Medical/Surgical History Medical Problems: (1) Anxiety (2) Depression (3) Dyslipidemia (4) History of blood clots (5) HTN (hypertension) (6) Paroxysmal atrial fibrillation (7) PVD (peripheral vascular disease) (8) Supratherapeutic INR Surgical Problems: (1) H/O vascular surgery (2) History of appendectomy (3) Status post below knee amputation of left lower extremity (4) Status post ORIF of fracture of ankle Family History Hypertension FATHER MOTHER Social History Smoking Status: Current Every Day Smoker Alcohol Use: occasionally Drug Use: none Marital Status: Housing Status: lives with family Occupation Status: disabled Current/Historical Medications Scheduled Amiodarone Hcl (Cordarone), 200 MG PO DAILY Amlodipine (Norvasc), 10 MG PO DAILY Aspirin (Aspirin Ec), 81 MG PO DAILY Atorvastatin (Lipitor), 80 MG PO HS Clopidogrel (Plavix), 75 MG PO DAILY Fluoxetine (Prozac), 20 MG PO DAILY Metoprolol Tartrate (Lopressor) (Lopressor), 25 MG PO BID Pantoprazole (Protonix), 40 MG PO DAILY Pregabalin (Lyrica), 75 MG PO TID Ranitidine (Zantac), 300 MG PO HS Warfarin Sod (Jantoven), 5 MG PO [id number] Warfarin Sod (Coumadin), 2.5 MG PO [id number] Scheduled PRN Docusate Sodium (Docusate Sodium), 100 MG PO BID PRN for Constipation Ondansetron Odt (Zofran Odt), 8 MG SL Q8 PRN for Nausea Oxycodone Ir (Roxicodone Ir), 1-2 TAB PO Q8 PRN for Pain Promethazine Hcl (Phenergan Suppository), 25 MG UT Q6H PRN for Nausea Physical Exam Vital Signs Date Time Temp Pulse Resp B/P (MAP) Pulse Ox O2 Delivery O2 Flow Rate FiO2 11/04/17 11:06 92 Room Air 11/04/17 10:22 89 16 135/99 92 Room Air 11/04/17 09:10 90 17 147/95 94 Room Air 11/04/17 08:53 Room Air 11/04/17 07:58 36.8 99 18 107/74 99 Room Air Physical Exam VITALS: Vitals are noted on the nurse's note and reviewed by myself. Vital signs stable. GENERAL: This is a 57-year-old female, in no acute distress, nondiaphoretic, well-developed well-nourished. SKIN: The skin was without rashes, erythema, edema, or bruising. There is no tenting of the skin. Capillary reflex less than 2 seconds. HEAD: Normocephalic atraumatic. EARS: External auditory canals clear, tympanic membranes pearly tate without erythema or effusion bilaterally. EYES: Pupils equal round and reactive to light and accommodation. Conjunctivae without injection, sclerae without icterus. Extraocular movements intact. NOSE: Patent, turbinates without inflammation or discharge. No sinus tenderness. MOUTH: Mucous membranes moist. Tonsils are not enlarged. Pharynx without erythema or exudate. Uvula midline. Airway patent. Tongue does not deviate. NECK: Supple without nuchal rigidity. No lymphadenopathy. No thyromegaly. Cervical spine is nontender. No JVD. HEART: Regular rate and rhythm without murmurs gallops or rubs. LUNGS: Mild wheezing and rhonchi noted in the left lower lung field. No dullness to percussion. No retractions or accessory muscle use. ABDOMEN: Positive bowel sounds x 4. Normal tympanic percussion. Diffuse tenderness throught the abdomen. Soft, without masses or organomegaly. Duncan sign negative. No guarding or rebound tenderness. MUSCULOSKELETAL: Reproducible tenderness of the left chest wall. No muscle atrophy, erythema, or edema noted. Full range of motion without joint tenderness in all extremities. No tenderness to palpation except as noted above. The patient does have an above the knee amputation of the left lower extremity. Strength 5/5 throughout. NEURO: Patient was alert and oriented to person place and time. Normal sensation to light and sharp touch. Deep tendon reflexes 2+ throughout. No focal neurological deficits. Medical Decision & Procedures ER Provider Diagnostic Interpretation: CXR: FINDINGS: The lungs are clear. The diaphragms are smooth. Several small calcified granulomas right midlung unchanged from the prior study. No evidence for cardiac enlargement. IMPRESSION: Chronic granulomatous change. No acute process. Laboratory Results 11/04/17 08:10 Red Blood Count 4.90, Mean Corpuscular Volume 91.6, Mean Corpuscular Hemoglobin 32.0, Mean Corpuscular Hemoglobin Concent 35.0, Mean Platelet Volume 11.2, Neutrophils (%) (Auto) 83.9, Lymphocytes (%) (Auto) 10.0, Monocytes (%) (Auto) 5.5, Eosinophils (%) (Auto) 0.1, Basophils (%) (Auto) 0.2, Neutrophils # (Auto) 12.30, Lymphocytes # (Auto) 1.46, Monocytes # (Auto) 0.80, Eosinophils # (Auto) 0.01, Basophils # (Auto) 0.03 11/04/17 08:10 Test 11/04/17 08:10 11/04/17 08:13 11/04/17 08:31 White Blood Count 14.65 K/uL (4.8-10.8) Red Blood Count 4.90 M/uL (4.2-5.4) Hemoglobin 15.7 g/dL (12.0-16.0) Hematocrit 44.9 % (37-47) Mean Corpuscular Volume 91.6 fL (80-100) Mean Corpuscular Hemoglobin 32.0 pg (25-34) Mean Corpuscular Hemoglobin Concent 35.0 g/dl (32-36) Platelet Count 195 K/uL (130-400) Mean Platelet Volume 11.2 fL (7.4-10.4) Neutrophils (%) (Auto) 83.9 % Lymphocytes (%) (Auto) 10.0 % Monocytes (%) (Auto) 5.5 % Eosinophils (%) (Auto) 0.1 % Basophils (%) (Auto) 0.2 % Neutrophils # (Auto) 12.30 K/uL (1.4-6.5) Lymphocytes # (Auto) 1.46 K/uL (1.2-3.4) Monocytes # (Auto) 0.80 K/uL (0.11-0.59) Eosinophils # (Auto) 0.01 K/uL (0-0.5) Basophils # (Auto) 0.03 K/uL (0-0.2) RDW Standard Deviation 65.2 fL (36.4-46.3) RDW Coefficient of Variation 19.7 % (11.5-14.5) Immature Granulocyte % (Auto) 0.3 % Immature Granulocyte # (Auto) 0.05 K/uL (0.00-0.02) Nucleated RBC Absolute Count (auto) 0.08 K/uL (0-0) Nucleated Red Blood Cells % 0.6 % Prothrombin Time > 100.0 SECONDS Prothromb Time International Ratio > 10.0 (0.9-1.1) Activated Partial Thromboplast Time 39.4 SECONDS (21.0-31.0) Partial Thromboplastin Ratio 1.5 Anion Gap 15.0 mmol/L (3-11) Est Creatinine Clear Calc Drug Dose 45.0 ml/min Estimated GFR () 61.8 Estimated GFR (Non- 53.3 BUN/Creatinine Ratio 13.2 (10-20) Calcium Level 7.7 mg/dl (8.5-10.1) Total Bilirubin 0.7 mg/dl (0.2-1) Aspartate Amino Transf (AST/SGOT) 345 U/L (15-37) Alanine Aminotransferase (ALT/SGPT) 128 U/L (12-78) Alkaline Phosphatase 229 U/L (45-117) Creatine Kinase MB 1.9 ng/ml (0.5-3.6) Troponin I < 0.015 ng/ml (0-0.045) Total Protein 6.7 gm/dl (6.4-8.2) Albumin 2.7 gm/dl (3.4-5.0) Globulin 4.0 gm/dl (2.5-4.0) Albumin/Globulin Ratio 0.7 (0.9-2) Lipase 3504 U/L (73-393) Chemistry Specimen Hemolysis Creatine Kinase MB Ratio (0-3.0) Ethyl Alcohol mg/dL 16.1 mg/dl (0-3) Medications Administered Medications (Trade) Dose Ordered Sig/Rosa Route Start Time Stop Time Status Last Admin Dose Admin Sodium Chloride 1,000 ml @ 999 mls/hr Q1H1M STAT IV 11/04/17 08:28 11/04/17 09:28 DC 11/04/17 09:10 999 MLS/HR Ondansetron HCl (Zofran Inj) 4 mg NOW STAT IV 11/04/17 09:15 11/04/17 09:16 DC 11/04/17 09:26 4 MG Hydromorphone HCl (Dilaudid Inj) 0.5 mg NOW STAT IV 11/04/17 09:15 11/04/17 09:16 DC 11/04/17 09:26 0.5 MG Phytonadione (Mephyton Tab) 2.5 mg NOW STAT PO 11/04/17 10:35 11/04/17 10:36 DC 11/04/17 10:43 2.5 MG Sodium Chloride 1,000 ml @ 125 mls/hr Q8H STAT IV 11/04/17 10:42 11/04/17 18:41 11/04/17 11:02 125 MLS/HR ECG Indication: chest pain Rate (beats per minute): 90 Rhythm: normal sinus Findings: no acute ischemic change Comparison ECG Date: 10/14/2017 Change: no significant change ED Course The patient was seen and evaluated as above. Previous medical records reviewed. IV access obtained, labs drawn. The patient was given 1 L normal saline solution IV. EKG was obtained and interpreted by myself. The patient requested Dilaudid and Zofran. She was given these medications. Her pain significantly improved. Labs reviewed. I discussed the case with Dr. Powers, who is in agreement with the plan. I discussed findings of lab work with the patient and her at bedside. I consulted with Lachelle Cano PA-C regarding admission. Please see her dictation. The patient was given 2.5 mg vitamin K by mouth and started on normal saline solution 125 per hour. Medical Decision This is a 57-year-old female patient presents to the emergency department today complaining of epigastric pain radiating to the left chest. The patient has recent history of alcohol-induced pancreatitis, and states her symptoms feel similar to the recent episode of pancreatitis. The patient is concerned due to the chest discomfort, she does have a history of atrial fibrillation. She admits to drinking a few alcoholic beverages 2 days ago, but denies anything since. She states she was encouraged to avoid alcohol, as this seems to flareup her symptoms, however she did not believe the doctors, so she thought she would give it a try. The patient has been experiencing pain since approximately 4 PM yesterday. She has been having difficulty sleeping, and has been unable to tolerate medications, including her chronic pain medicine. The patient's cardiac workup here in the emergency department was overall negative. She does have an elevated white blood cell count of 14,000. Sodium, chloride slightly low. LFT's significantly elevated with AST of 345, ALT 128, and Alkaline phosphatase of 229, which are significantly more elevated than normal. Her labs were consistent with acute pancreatitis, and I do suspect alcohol as the cause. The patient's INR was greater than 10, and PTT was greater than 100. She was given 2.5 mg vitamin K orally for this. Based on her history, physical examination, and lipase elevated over 3500, the patient will be admitted for acute pancreatitis. Etiologies such as appendicitis, diverticulitis, obstruction, inflammatory bowel disease, renal colic, PUD, biliary pathology, pancreatitis, mesenteric ischemia, aortic pathology, infections, genitourinary, UTI, perforated viscus, ACS, atrial fibrillation, as well as others were entertained. Medication Reconcilliation Current Medication List: was personally reviewed by il Blood Pressure Screening Patient's blood pressure: Normal blood pressure Impression Primary Impression: Acute pancreatitis Departure Information Dispostion Being Evaluated By Hospitalist Condition FAIR Referrals Fabio Tai M.D. (PCP) Patient Instructions My [facility] Problem Qualifiers Primary Impression: Acute pancreatitis Pancreatitis type: alcohol induced Acute pancreatitis complication: unspecified Qualified Codes: K85.20 - Alcohol induced acute pancreatitis without necrosis or infection
[2017-11-04] MEDS ORDERED: SODIUM CHLORIDE 0.9% 1000ML 1,000 ML IV STA ×2 (08:28→10:42)
[2017-11-04] MEDS ORDERED: PREG1CAP28 PO (08:30)
[2017-11-04 08:43] LABS: BASO % 0.2 %; BASO ABS # 0.03 K/uL (0-0.2); EOS % 0.1 %; EOS ABS # 0.01 K/uL (0-0.5); HEMATOCRIT 44.9 % (37-47); HEMOGLOBIN 15.7 g/dL (12.0-16.0); IG# 0.05 K/uL (0.00-0.02); LYMPH ABS # 1.46 K/uL (1.2-3.4); MEAN CELL VOLUME 91.6 fL (80-100); MEAN PLATELET VOLUME 11.2 fL (7.4-10.4); MONO % 5.5 %; NEUT % 83.9 %; NUCLEATED RED BLOOD CELL ABS 0.08 K/uL (0-0); PLATELET COUNT 195 K/uL (130-400); RED CELL DISTRIBUTION WIDTH CV 19.7 % (11.5-14.5); RED CELL DISTRIBUTION WIDTH SD 65.2 fL (36.4-46.3); WHITE BLOOD COUNT 14.65 K/uL (4.8-10.8)
[2017-11-04 09:04] LABS: ALBUMIN 2.7 gm/dl (3.4-5.0); ALKALINE PHOSPHATASE 229 U/L (45-117); ALT/SGPT 128 U/L (12-78); AST/SGOT 345 U/L (15-37); BLOOD UREA NITROGEN 15 mg/dl (7-18); CALCIUM 7.7 mg/dl (8.5-10.1); CARBON DIOXIDE 17 mmol/L (21-32); CKMB 1.9 ng/ml (0.5-3.6); CREATININE 1.14 mg/dl (0.60-1.20); GLUCOSE 92 mg/dl (70-99); SODIUM 125 mmol/L (136-145); TOTAL PROTEIN 6.7 gm/dl (6.4-8.2)
[2017-11-04 09:11] LABS: PTT PATIENT 39.4 SECONDS (21.0-31.0)
[2017-11-04 09:12] LABS: INR > 10.0 (0.9-1.1)
--- NOTE | 2017-11-04 09:12 | DIAGNOSTIC IMAGING REPORT ---
CHEST 2 VIEWS ROUTINE CLINICAL HISTORY: epigastric/left chest pain dyspnea COMPARISON STUDY: 10/14/2017 FINDINGS: The lungs are clear. The diaphragms are smooth. Several small calcified granulomas right midlung unchanged from the prior study. No evidence for cardiac enlargement. IMPRESSION: Chronic granulomatous change. No acute process. The above report was generated using voice recognition software. It may contain grammatical, syntax or spelling errors. Electronically signed by: Santos Mckenzie M.D. 11/04/2017 9:10 AM Dictated Date/Time: 11/04/2017 9:09 AM
[2017-11-04] MEDS ORDERED: HYDROmorphone INJ 0.5 MG/0.5 ML SYR IV STA (09:15)
[2017-11-04] MEDS ORDERED: ONDANSETRON INJ 2 MG/ML 2 ML VIAL IV STA (09:15)
[2017-11-04] MEDS ORDERED: PHYTONADIONE 5 MG TAB PO STA (10:35)
[2017-11-04] MEDS ORDERED: ONDANSETRON INJ 2 MG/ML 2 ML VIAL IV PRN (11:45)
--- NOTE | 2017-11-04 11:59 | History and Physical ---
History & Physical Date & Time of Service: Nov 04, 2017 at 11:58 Chief Complaint: Chest Pain Primary Care Physician: Fabio Tai M.D. History of Present Illness Source: patient, spouse (at bedside), clinic records, hospital records This is a 57yo F with a PMH of recent acute pancreatitis, h/o etoh abuse, paroxysmal A Fib (on coumadin), HTN, tobacco use disorder, PVD (s/p bilateral femoral endarterectomy in Sep 2016) and s/p Left BKA who presents with abdominal pain since yesterday. Describes pain as 10/10 constant sharp, throbbing midepigastrium pain with radiation to left chest. Associated symptoms include headache, lightheadedness, persistent nausea and vomiting of bilious fluid with her last episode occurring this AM. Has been unable to tolerate PO intake since yesterday. Was admitted in September with acute pancreatitis 2/2 alcohol use. Was encouraged to stop drinking but has continued to do so, stating that she did not realize how much the alcohol contributes to her abdominal pain. Has a significant history of alcohol use, endorsing 3-4 beers per day most days x 40 years. Last drink was 2 days ago. Has tried a rehab program in the past. States that she is more motivated to stop drinking now that abdominal pain has reoccurred. Denies fever, chills, visual changes, sore throat, cough, palpitations, increased SOB ( has some at baseline), diarrhea or LE swelling. Patient is on coumadin for A fib. Attends coumadin clinic and states that she takes whatever dose they tell her. Says that it is constantly changing and therefore she is unsure what dose she is currently taking. INR was supratherapeutic at 10 today. Has a small bruise on her R hip but otherwise denies any new bruising, bleeding, etc. Past Medical/Surgical History Medical Problems: (1) Depression Status: Chronic (2) Dyslipidemia Status: Chronic (3) HTN (hypertension) Status: Chronic (4) Paroxysmal atrial fibrillation Status: Chronic (5) PVD (peripheral vascular disease) Status: Chronic Surgical Problems: (1) H/O vascular surgery Permanent Comment: bilateral femoral endarterectomy with iliac stent 10/02/2016 Dr. Dharmesh Omalley, [facility] Status: Chronic (2) History of appendectomy Status: Chronic (3) Status post below knee amputation of left lower extremity Status: Chronic (4) Status post ORIF of fracture of ankle Permanent Comment: 12/18/16- ORIF closed displaced trimalleolar left ankle fracture; Dr. Fischer Status: Chronic Family History Hypertension FATHER MOTHER Social History Smoking Status: Current Every Day Smoker (1/2 ppd ) Drug Use: none Marital Status: Housing status: lives with significant other Occupational Status: disabled Immunizations History of Influenza Vaccine: Unknown History of Tetanus Vaccine?: Yes Tetanus Immunization Date: Jun 29, 2006 History of Pneumococcal: Unknown History of Hepatitis B Vaccine: Unknown Multi-Drug Resistant Organisms History of MDRO: No Allergies Coded Allergies: Amoxicillin (Verified Allergy, Severe, LIVER FAILURE, 11/04/17) Clavulanic Acid (Verified Allergy, Severe, LIVER FAILURE, 11/04/17) Adhesives (Verified Allergy, Mild, 11/04/17) Acetaminophen (Verified Allergy, Unknown, LIVER DAMAGE-DUE TO FAILURE, 11/04) Guanfacine (Verified Allergy, Unknown, 11/04/17) Nifedipine (Verified Allergy, Unknown, 11/04/17) Home Medications Scheduled Amiodarone Hcl (Cordarone), 200 MG PO DAILY Amlodipine (Norvasc), 10 MG PO DAILY Aspirin (Aspirin Ec), 81 MG PO DAILY Atorvastatin (Lipitor), 80 MG PO HS Clopidogrel (Plavix), 75 MG PO DAILY Fluoxetine (Prozac), 20 MG PO DAILY Metoprolol Tartrate (Lopressor) (Lopressor), 25 MG PO BID Pantoprazole (Protonix), 40 MG PO DAILY Pregabalin (Lyrica), 75 MG PO BID Ranitidine (Zantac), 300 MG PO HS Warfarin Sod (Jantoven), 5 MG PO TuThSa Warfarin Sod (Coumadin), 2.5 MG PO [id number] Scheduled PRN Docusate Sodium (Docusate Sodium), 100 MG PO BID PRN for Constipation Ondansetron Odt (Zofran Odt), 8 MG SL Q8 PRN for Nausea Oxycodone Ir (Roxicodone Ir), 1-2 TAB PO Q6H PRN for Pain Promethazine Hcl (Phenergan Suppository), 25 MG MD Q6H PRN for Nausea Review of Systems Ten systems reviewed and negative except as noted in the HPI. Physical Exam Vital Signs Date Time Temp Pulse Resp B/P (MAP) Pulse Ox O2 Delivery O2 Flow Rate FiO2 11/04/17 11:06 92 Room Air 11/04/17 10:22 89 16 135/99 92 Room Air 11/04/17 09:10 90 17 147/95 94 Room Air 11/04/17 08:53 Room Air 11/04/17 07:58 36.8 99 18 107/74 99 Room Air General Appearance: WD/WN, no apparent distress, + pertinent finding (appears older than stated age) Head: normocephalic, atraumatic Eyes: normal inspection, PERRL, sclerae normal ENT: normal ENT inspection, hearing grossly normal, pharynx normal Neck: supple, thyroid normal, trachea midline Respiratory/Chest: lungs clear, normal breath sounds, no respiratory distress, no accessory muscle use, + pertinent finding (Chest pain reproducible on left side ) Cardiovascular: regular rate, rhythm, no murmur, normal peripheral pulses Abdomen/GI: soft, no organomegaly, + tenderness (Epigastric pain without guarding. Some diffuse tenderness) Back: normal inspection Extremities/Musculoskelatal: normal inspection, no calf tenderness, no pedal edema, + pertinent finding (S/p L BKA ) Neurologic/Psych: no motor/sensory deficits, alert, normal mood/affect, oriented x 3 Skin: normal color, warm/dry Diagnostics Laboratory Results Results Past 24 Hours Test 11/04/17 08:10 11/04/17 08:13 11/04/17 08:31 Range/Units White Blood Count 14.65 4.8-10.8 K/uL Red Blood Count 4.90 4.2-5.4 M/uL Hemoglobin 15.7 12.0-16.0 g/dL Hematocrit 44.9 37-47 % Mean Corpuscular Volume 91.6 80-100 fL Mean Corpuscular Hemoglobin 32.0 25-34 pg Mean Corpuscular Hemoglobin Concent 35.0 32-36 g/dl Platelet Count 195 130-400 K/uL Mean Platelet Volume 11.2 7.4-10.4 fL Neutrophils (%) (Auto) 83.9 % Lymphocytes (%) (Auto) 10.0 % Monocytes (%) (Auto) 5.5 % Eosinophils (%) (Auto) 0.1 % Basophils (%) (Auto) 0.2 % Neutrophils # (Auto) 12.30 1.4-6.5 K/uL Lymphocytes # (Auto) 1.46 1.2-3.4 K/uL Monocytes # (Auto) 0.80 0.11-0.59 K/uL Eosinophils # (Auto) 0.01 0-0.5 K/uL Basophils # (Auto) 0.03 0-0.2 K/uL RDW Standard Deviation 65.2 36.4-46.3 fL RDW Coefficient of Variation 19.7 11.5-14.5 % Immature Granulocyte % (Auto) 0.3 % Immature Granulocyte # (Auto) 0.05 0.00-0.02 K/uL Nucleated RBC Absolute Count (auto) 0.08 0-0 K/uL Nucleated Red Blood Cells % 0.6 % Prothrombin Time > 100.0 9.0-12.0 SECONDS Prothromb Time International Ratio > 10.0 0.9-1.1 Activated Partial Thromboplast Time 39.4 21.0-31.0 SECONDS Partial Thromboplastin Ratio 1.5 Sodium Level 125 136-145 mmol/L Potassium Level 4.0 3.5-5.1 mmol/L Chloride Level 92 98-107 mmol/L Carbon Dioxide Level 17 21-32 mmol/L Anion Gap 15.0 3-11 mmol/L Blood Urea Nitrogen 15 7-18 mg/dl Creatinine 1.14 0.60-1.20 mg/dl Est Creatinine Clear Calc Drug Dose 45.0 ml/min Estimated GFR () 61.8 Estimated GFR (Non- 53.3 BUN/Creatinine Ratio 13.2 10-20 Random Glucose 92 70-99 mg/dl Calcium Level 7.7 8.5-10.1 mg/dl Total Bilirubin 0.7 0.2-1 mg/dl Aspartate Amino Transf (AST/SGOT) 345 15-37 U/L Alanine Aminotransferase (ALT/SGPT) 128 12-78 U/L Alkaline Phosphatase 229 45-117 U/L Creatine Kinase MB 1.9 0.5-3.6 ng/ml Troponin I < 0.015 0-0.045 ng/ml Total Protein 6.7 6.4-8.2 gm/dl Albumin 2.7 3.4-5.0 gm/dl Globulin 4.0 2.5-4.0 gm/dl Albumin/Globulin Ratio 0.7 0.9-2 Lipase 3504 73-393 U/L Chemistry Specimen Hemolysis Creatine Kinase MB Ratio 0-3.0 Ethyl Alcohol mg/dL 16.1 0-3 mg/dl Diagnostic Radiology CXR: IMPRESSION: Chronic granulomatous change. No acute process. EKG Normal sinus rhythm Possible Left atrial enlargement No change from prior EKG Impression Assessment and Plan This is a 57yo F with a PMH of recent acute pancreatitis, h/o etoh abuse, paroxysmal A Fib (on coumadin), HTN, tobacco use disorder, PVD (s/p bilateral femoral endarterectomy in Sep 2016) and s/p Left BKA who presents with abdominal pain since yesterday. Acute pancreatitis: -H/o alcohol abuse, recent pancreatitis last month -Lipase of 3500, leukocytosis of 14.65 -Alcohol level of 16 -NPO except sips -IVF resuscitation with LR, pain control, anti-emetics -IV Protonix daily -GI consulted -CT abd/pelvis w PO/IV contrast Transaminitis: -Likely alcohol induced, related to pancreatitis -AST of 345, ALT of 128 -H/o acute liver failure 2/ Augmentin -No family h/o autoimmune liver disease -GI consulted -CT abd/pelvis w PO/IV contrast - Check APAP level Supratherapeutic INR: -INR elevated to 10 -Likely exacerbated by etoh use -Follows with coumadin clinic but was unable to tell me current dose -Confirmed with clinic: -Last seen 10/28. -Decreased dose at that time: 5mg , , Wednesday 2.5mg all other days -Given 2.5mg Vit K in the ED -No active bleeding -Hold coumadin -Recheck PT INR in AM Chest pain: -Reproducible CP, likely from pancreatitis -CXR and EKG wnl -Initial troponin negative -Echo: Sep 2016 normal LV size and function. EF: 60-65% -Consider echo tomorrow if CP continues H/o alcohol abuse: -3-4 drinks most days x 40 years -Counselled on importance of cessation -Not interested in rehab -Says she is motivated to quit -Withdrawal protocol -Thiamine PO daily Hyponatremia: -Na of 125. Usually ~ 134 -Decreased PO intake for a day, etoh abuse -IVF resuscitation -Recheck PRP this afternoon Paroxysmal A Fib: -Currently in NSR -IV lopressor 5mg Q6 with hold parameters -Resume lopressor, amiodarone when diet advanced -Hold coumadin HTN: -Elevated 2/2 pain, did not take oral meds for 2 days -IV lopressor 5mg Q6 with hold parameters -Cont amlodipine, lopressor when diet advanced HLD: -Cont statin when diet advanced Peripheral neuropathy s/p left BKA: -PVD (s/p bilateral femoral endarterectomy in Sep 2016) -Hold aspirin and plavix until diet advanced -Receiving IV pain meds -Hold home Lyrica, oxycodone DVT Ppx: SCDs, teds Code status: FULL PCP: [facility] Dispo: Admitted to telemetry. Discharge planning ordered. Patient seen in collaboration with Dr. Callaway. Please see addendum. 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 abuse Hypercoagulable status -INR > 10 coumadin on hold ( concern for pt's Coumadin intake ) in setting of alcoholic liver disease PO vit K ordered repeat INR in AM ETOH abuse last ETOH intake was 2 days back ETOH level 16 ordered for IV Ativan PRN per withdrawal protocol added thiamine /folate need to be started on Neurontin protocol once Lipase improves, /Clear diet ordered by GI please review documentation by Lachelle Cano PA-C for further discussion of other issues Vianca Callaway MD Level of Care Telemetry Advanced Directives Existing Living Will: No Existing Power of Obstetrics Gynecology Md: No Resuscitation Status FULL RESUSCITATION VTE Prophylaxis VTE Risk Assessment Done? Y/N: Yes Risk Level: Moderate Given or contraindicated: SCD's, Contraindicated Additional Copies To Fabio Tai M.D. Bradbury, James J., D.O.
[2017-11-04] MEDS ORDERED: POLYETHYLENE (MIRALAX) 17 GM PACK PO PRN (12:00)
[2017-11-04] MEDS ORDERED: LORAZEPAM 2 MG/ML 1 ML VIAL IV PRN (12:00)
[2017-11-04] MEDS ORDERED: HYDROmorphone INJ 0.5 MG/0.5 ML SYR IV PRN (12:00)
[2017-11-04] MEDS ORDERED: OXYC1TAB3 PO (12:45)
--- NOTE | 2017-11-04 13:53 | Gastrointestinal Consultation ---
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 Abd pain radiates downwards, associated w nausea and vomiting. Last BM 2 days ago quite loose. Upon evaluation, labs showed leukocytosis WBC 14.6, H/H 15/44. INR >10, on Coumadin for Afib, given Vit K 2.5mg x1. CMP showed hyponatremia Na 125, BUN/ Cr 15/1.1, LFTs up: Tbili 0.7, AST 345, ALT 128, Alk phos 229, Lipase 3504. ETOH level 16. CXR unremarkable. Pt was last admitted from 10/14 to 10/17 with pancreatitis. LFTs weren't significantly elevated at that time. CT and u/s showed gallbladder sludge and CBD 7mm. No fluid collection or abscess seen at that time. Was scheduled for EUS eval on 11/09/17. She reports recently started on Lyrica. She continues to drink 3-4 beers a day, bought for her. Pt reports it's because she's bored and cannot get good management of her L BKA pain. She smokes cigarettes also. Takes Tylenol no more than 3g a day. Past Medical/Surgical History Medical Problems: (1) Abdominal pain Status: Acute (2) Acute liver failure Status: Acute (3) Acute pancreatitis Status: Acute (4) Cellulitis Status: Acute (5) Contusion of ankle, left Status: Acute (6) Hyponatremia Status: Acute (7) Lethargy Status: Acute (8) Lower extremity edema Status: Acute (9) Rapid atrial fibrillation Status: Acute (10) Trimalleolar fracture of ankle, closed Status: Acute (11) UTI (urinary tract infection) Status: Acute (12) Vomiting Status: Acute Past Medical History: See above Past Surgical History: See above, appendectomy Family History Hypertension FATHER MOTHER Social History Smoking Status: Former Smoker Alcohol Use: occasionally Drug Use: none Marital Status: Housing Status: lives with family Occupation Status: disabled Allergies Coded Allergies: Amoxicillin (Verified Allergy, Severe, LIVER FAILURE, 11/04/17) Clavulanic Acid (Verified Allergy, Severe, LIVER FAILURE, 11/04/17) Adhesives (Verified Allergy, Mild, 11/04/17) Acetaminophen (Verified Allergy, Unknown, LIVER DAMAGE-DUE TO FAILURE, 11/04) Guanfacine (Verified Allergy, Unknown, 11/04/17) Nifedipine (Verified Allergy, Unknown, 11/04/17) Current Medications Home Meds and Scripts Medications Dose Route/Sig Max Daily Dose Days Date Category Dose Instructions Roxicodone Ir (Oxycodone HCl) 5 Mg Tab 1-2 Tab PO Q6H PRN 3 11/04/17 Rx hold for lethargy or drowsiness Lyrica (Pregabalin) 75 Mg Cap 75 Mg PO BID 11/04/17 Reported Coumadin (Warfarin Sod) 2.5 Mg Tab 2.5 Mg PO SUMOWEFR 10/17/17 Reported as per coumadin clinic instruction Docusate Sodium 100 Mg Cap 100 Mg PO BID PRN 10 10/17/17 Rx Phenergan Suppository (Promethazine HCl) 25 Mg Supp 25 Mg NE Q6H PRN 10/14/17 Reported Lopressor (Metoprolol Tartrate) 25 Mg Tab 25 Mg PO BID 10/14/17 Reported Jantoven (Warfarin Sodium) 5 Mg Tab 5 Mg PO TUTHSA 09/24/17 Reported as per coumadin clinic instruction Zofran Odt (Ondansetron HCl) 8 Mg Soltab 8 Mg SL Q8 PRN 09/24/17 Reported Cordarone (Amiodarone Hcl) 200 Mg Tab 200 Mg PO DAILY 09/24/17 Reported Norvasc (Amlodipine Besylate) 10 Mg Tab 10 Mg PO DAILY 03/22/17 Reported Zantac (Ranitidine HCl) 300 Mg Tab 300 Mg PO HS 10/08/16 Reported Protonix (Pantoprazole Sodium) 40 Mg Tab 40 Mg PO DAILY 10/08/16 Reported Prozac (Fluoxetine HCl) 20 Mg Cap 20 Mg PO DAILY 10/08/16 Reported Aspirin Ec (Aspirin) 81 Mg Tab 81 Mg PO DAILY 10/08/16 Reported Lipitor (Atorvastatin Calcium) 80 Mg Tab 80 Mg PO HS 10/08/16 Reported Plavix (Clopidogrel Bisulfate) 75 Mg Tab 75 Mg PO DAILY 10/08/16 Reported Review of Systems Constitutional: No fever, No chills Respiratory: No cough, No shortness of breath Cardiac: No chest pain Abdomen: + pain, + nausea, + vomiting Physical Exam Date Time Temp Pulse Resp B/P (MAP) Pulse Ox O2 Delivery O2 Flow Rate FiO2 11/04/17 13:35 91 20 141/100 97 Room Air 11/04/17 12:00 90 20 172/105 96 11/04/17 11:06 92 Room Air 11/04/17 11:00 90 20 129/90 94 Room Air 11/04/17 10:22 89 16 135/99 92 Room Air 11/04/17 09:10 90 17 147/95 94 Room Air 11/04/17 08:53 Room Air 11/04/17 07:58 36.8 99 18 107/74 99 Room Air General Appearance: no apparent distress (c/o abdominal pain ) Eyes: normal inspection, PERRL, EOMI Neck: supple, no JVD, trachea midline Respiratory/Chest: normal breath sounds, no respiratory distress, no accessory muscle use Cardiovascular: regular rate, rhythm, no gallop, no murmur Abdomen: normal bowel sounds, soft, + tenderness (diffuse) Extremities: no pedal edema, + pertinent finding (L BKA) Neurologic/Psych: alert, normal mood/affect, oriented x 3 Skin: normal color, no jaundice, no rash Laboratory Results Last 24 Hours Test 11/04/17 08:10 11/04/17 08:13 11/04/17 08:31 11/04/17 13:30 White Blood Count 14.65 K/uL Red Blood Count 4.90 M/uL Hemoglobin 15.7 g/dL Hematocrit 44.9 % Mean Corpuscular Volume 91.6 fL Mean Corpuscular Hemoglobin 32.0 pg Mean Corpuscular Hemoglobin Concent 35.0 g/dl Platelet Count 195 K/uL Mean Platelet Volume 11.2 fL Neutrophils (%) (Auto) 83.9 % Lymphocytes (%) (Auto) 10.0 % Monocytes (%) (Auto) 5.5 % Eosinophils (%) (Auto) 0.1 % Basophils (%) (Auto) 0.2 % Neutrophils # (Auto) 12.30 K/uL Lymphocytes # (Auto) 1.46 K/uL Monocytes # (Auto) 0.80 K/uL Eosinophils # (Auto) 0.01 K/uL Basophils # (Auto) 0.03 K/uL RDW Standard Deviation 65.2 fL RDW Coefficient of Variation 19.7 % Immature Granulocyte % (Auto) 0.3 % Immature Granulocyte # (Auto) 0.05 K/uL Nucleated RBC Absolute Count (auto) 0.08 K/uL Nucleated Red Blood Cells % 0.6 % Prothrombin Time > 100.0 SECONDS Prothromb Time International Ratio > 10.0 Activated Partial Thromboplast Time 39.4 SECONDS Partial Thromboplastin Ratio 1.5 Sodium Level 125 mmol/L Potassium Level 4.0 mmol/L Chloride Level 92 mmol/L Carbon Dioxide Level 17 mmol/L Anion Gap 15.0 mmol/L Blood Urea Nitrogen 15 mg/dl Creatinine 1.14 mg/dl Est Creatinine Clear Calc Drug Dose 45.0 ml/min Estimated GFR () 61.8 Estimated GFR (Non- 53.3 BUN/Creatinine Ratio 13.2 Random Glucose 92 mg/dl Calcium Level 7.7 mg/dl Total Bilirubin 0.7 mg/dl Aspartate Amino Transf (AST/SGOT) 345 U/L Alanine Aminotransferase (ALT/SGPT) 128 U/L Alkaline Phosphatase 229 U/L Creatine Kinase MB 1.9 ng/ml Troponin I < 0.015 ng/ml Total Protein 6.7 gm/dl Albumin 2.7 gm/dl Globulin 4.0 gm/dl Albumin/Globulin Ratio 0.7 Lipase 3504 U/L Chemistry Specimen Hemolysis Creatine Kinase MB Ratio Ethyl Alcohol mg/dL 16.1 mg/dl Impression Patient is a 57 year old female with abdominal pain, n/v, labs showed leukocytosis, elevated LFTs, lipase consistent with pancreatitis. Was admitted 3 weeks ago with pancreatitis as well, likely ETOH induced. She continues to drink ETOH 3-4 beers a day, admitted because "pain on L leg now controlled and bored". ETOH level at admission 16. She also smokes cigarettes. Regarding LFT elevation: at last admission, not significantly elevated. She has hx of acute liver failure related to Augmentin use in the past, but denies any other liver disease, nor family hx of autoimmune liver diseases. Grandma w hx of pancreas ca. For now suspect LFT elevation related to acute pancreatitis. Plan - INR correction per primary team - LR @200ml/hr - CT abd/pelvis w PO/IV contrast - Check Utox and APAP level. - NPO except sips and chips I performed a history and physical examination of the patient. I have discussed the patient's case, impression and plan with Eloise BOOTH. Her note reflects my findings and plan. Aggressive IV hydration; I would run another full liter in and continue 200ml/hr maintenance. Follow H/H and renal function and electrolytes. Cristhian Eagle MD
[2017-11-04] MEDS ORDERED: METOPROLOL TARTRATE 1 MG/ML VIAL IV. SCH (15:00)
[2017-11-04] MEDS ORDERED: NURSING VERBAL MED ORDER ONE ×2 (15:00)
[2017-11-04] MEDS ORDERED: LACTATED RINGER'S 1000ML 1,000 ML IV ONE (15:00)
[2017-11-04] MEDS: LACTATED RINGER'S 1000ML 1,000 ML IV SCH ×2 (16:13→19:39)
[2017-11-04] MEDS: THIAMINE HCL 100 MG TAB PO SCH (16:14)
[2017-11-04] MEDS ORDERED: OPTIRAY 320 IV PRN (16:15)
[2017-11-04] MEDS ORDERED: AMLODIPINE BESYLATE 5 MG TAB PO ONE (16:45)
--- NOTE | 2017-11-04 16:49 | DIAGNOSTIC IMAGING REPORT ---
CT SCAN OF THE ABDOMEN AND PELVIS WITH IV CONTRAST CLINICAL HISTORY: Pancreatitis. COMPARISON STUDY: Abdominal CT dated 10/14/2017. TECHNIQUE: Following the IV administration of 114 cc of Optiray 320, CT scan of the abdomen and pelvis is performed from the lung bases to the proximal femora. Images are reviewed in the axial, sagittal, and coronal planes. IV contrast was administered without complication. A dose lowering technique was utilized adhering to the principles of ALARA. CT DOSE: 369.89 mGy.cm FINDINGS: Lung bases: The heart is normal in size and without pericardial effusion. There are coronary artery calcifications. There are trace pleural effusions with dependent atelectasis. No airspace consolidation is seen typical for pneumonia. Emphysematous change is suspected. Liver: The contrast-enhanced liver is enlarged, measuring 18.5 cm in length. The liver demonstrates diffusely diminished attenuation consistent with hepatic steatosis. There is no intrahepatic biliary ductal dilatation. The hepatic veins and portal veins are patent. Gallbladder: Unremarkable. Spleen: Normal in size and attenuation. There are calcified splenic granulomas. Pancreas: There is moderate glandular atrophy of the pancreas. There is peripancreatic inflammatory stranding and fluid consistent with acute pancreatitis. The gland enhances homogeneously. No organized peripancreatic fluid collection is seen. The splenic vein is patent. Adrenal glands: Left adrenal adenomas measuring up to 2.7 cm are unchanged. The right adrenal gland is normal in appearance. Kidneys: The contrast enhanced kidneys demonstrate cortical atrophy and are without hydronephrosis. The kidneys enhance symmetrically. Foci of cortical scarring are present in the left upper pole. A subcentimeter cortical hypodensity in the left lower pole likely represents a cyst but is too small for definitive characterization. Abdominal vasculature: The abdominal aorta is normal in course and caliber noting advanced atherosclerotic calcification. Numerous bilateral iliac artery stents are identified. A stent is also seen in the left superficial femoral artery. Bowel: There is mild colonic diverticulosis without CT evidence of acute diverticulitis. No bowel obstruction is seen. The appendix is not identified and reported surgically absent. Peritoneum: There is a small volume of abdominopelvic ascites. No intraperitoneal free air is identified. Lymphadenopathy: None. Pelvic viscera: The bladder, uterus, and adnexa are normal as visualized. Postoperative change is seen in the groin bilaterally. Skeletal structures: The skeletal structures are osteopenic. Mild lumbosacral spondylosis is observed. No lytic or blastic lesions are seen. There are healed bilateral rib fractures seen anteriorly. IMPRESSION: 1. Findings of acute pancreatitis are similar in appearance to the 10/14/2017 examination noting differences in technique. 2. The pancreas enhances homogeneously. No organized peripancreatic fluid collection is identified. The splenic vein is patent. 3. Hepatomegaly and hepatic steatosis. 4. There is a small volume of abdominopelvic ascites. 5. Trace pleural effusions. 6. Additional findings as above. Electronically signed by: Angus Marte M.D. 11/04/2017 4:48 PM Dictated Date/Time: 11/04/2017 4:41 PM
[2017-11-04 17:04] LABS: CALCIUM 6.9 mg/dl (8.5-10.1); CREATININE 1.07 mg/dl (0.60-1.20); POTASSIUM 3.8 mmol/L (3.5-5.1)
[2017-11-04] MEDS: HYDROmorphone INJ 1 MG/ML SYR IV PRN ×2 (17:21→20:31)
[2017-11-04] MEDS ORDERED: METOPROLOL TARTRATE 1 MG/ML VIAL IV PRN (18:00)
[2017-11-04] MEDS: METOPROLOL TARTRATE 25 MG TAB PO SCH (20:30)
[2017-11-04] MEDS: RANITIDINE HCL 150 MG TAB PO SCH (20:31)
[2017-11-04] MEDS ORDERED: DOCUSATE SODIUM 100 MG CAP PO SCH (21:00)
[2017-11-04] MEDS ORDERED: ATORVASTATIN 40 MG TAB PO SCH (21:00)
[2017-11-04] MEDS ORDERED: PREGABALIN 75 MG CAP PO SCH (21:00)
[2017-11-05] VITALS (8 sets, daily range): BP systolic 97–148; BP diastolic 61–83; PULSE 70–79; TEMP 36.7–37.1; O2SAT 94–96
[2017-11-05] MEDS: LACTATED RINGER'S 1000ML 1,000 ML IV SCH ×3 (00:02→08:39)
[2017-11-05] MEDS: HYDROmorphone INJ 1 MG/ML SYR IV PRN ×6 (00:02→23:01)
[2017-11-05 07:09] LABS: HEMATOCRIT 34.8 % (37-47); MEAN CELL VOLUME 91.1 fL (80-100); MEAN CORPUSCULAR HEMOGLOBIN 31.4 pg (25-34); MEAN CORPUSCULAR HGB CONC 34.5 g/dl (32-36); MEAN PLATELET VOLUME 11.4 fL (7.4-10.4); PLATELET COUNT 95 K/uL (130-400); RED CELL DISTRIBUTION WIDTH CV 19.9 % (11.5-14.5); RED CELL DISTRIBUTION WIDTH SD 66.3 fL (36.4-46.3)
[2017-11-05 07:20] LABS: ALBUMIN 1.9 gm/dl (3.4-5.0); CREATININE 0.62 mg/dl (0.60-1.20); POTASSIUM 3.2 mmol/L (3.5-5.1)
[2017-11-05 07:31] LABS: BASO % 0.2 %; BASO ABS # 0.01 K/uL (0-0.2); EOS % 0.5 %; EOS ABS # 0.03 K/uL (0-0.5); IG# 0.02 K/uL (0.00-0.02); LYMPH ABS # 1.16 K/uL (1.2-3.4); MONO ABS # 0.58 K/uL (0.11-0.59)
[2017-11-05] MEDS ORDERED: POTASSIUM CHLORIDE 10 MEQ TABCR PO STA (08:33)
[2017-11-05] MEDS: THIAMINE HCL 100 MG TAB PO SCH (08:37)
[2017-11-05] MEDS: METOPROLOL TARTRATE 25 MG TAB PO SCH ×2 (08:37→21:48)
[2017-11-05] MEDS: AMLODIPINE BESYLATE 5 MG TAB PO SCH (08:38)
[2017-11-05] MEDS: AMIODARONE 200 MG TAB PO SCH (08:38)
[2017-11-05] MEDS ORDERED: GABAPENTIN 600 MG TAB PO SCH (08:45)
[2017-11-05] MEDS ORDERED: DOCUSATE SODIUM 100 MG CAP PO PRN (09:00)
[2017-11-05] MEDS ORDERED: FLUOXETINE HCL 20 MG CAP PO SCH (09:00)
[2017-11-05 09:07] LABS: INR 3.5 (0.9-1.1)
--- NOTE | 2017-11-05 09:08 | Progress Note ---
Medicine Progress Note Date & Time of Visit: Nov 05, 2017 at 08:57. Subjective seem resting in bed, using cellphone comfortable states abdominal pain is improving- moderate denies chest pain, dyspnea, nausea, headache (+) BM- loose no bleeding denies tremors, anxiety, palpitations, hallucinations reports pain on the left foot stump no other symptoms Objective Last 8 Hrs Date Time Temp Pulse Resp B/P (MAP) Pulse Ox O2 Delivery O2 Flow Rate FiO2 11/05/17 07:55 36.7 79 18 130/82 (98) 95 Room Air 11/05/17 04:00 Room Air 11/05/17 03:38 37.1 70 20 143/74 (97) 96 Room Air Physical Exam: General- oriented x 3, not in distress, speaks in sentences with no effort Head- atraumatic Eyes- PERRL, anicteric ENT- oropharynx clear Neck- supple, no JVD, no adenopathy, no thyromegaly; carotids +2/2 Lungs- clear breath sounds bilaterally, no rales/wheezes Heart- regular rhythm; no murmur, normal rate Abdomen- normal bowel sounds, non distended, soft, mild tenderness on the epigastric area Extremities- no pretibial edema, no calf tenderness- Right s/p L BKA- moderate tenderness, no erythema/warmth/discharge Neuro- alert, oriented x 3; no gross focal deficits noted Skin- warm & dry Laboratory Results: Last 24 Hours Test 11/04/17 14:02 11/04/17 15:51 11/04/17 17:25 11/04/17 17:31 Troponin I < 0.015 ng/ml Acetaminophen Level 3 ug/ml Sodium Level 127 mmol/L Potassium Level 3.8 mmol/L Chloride Level 98 mmol/L Carbon Dioxide Level 15 mmol/L Anion Gap 14.0 mmol/L Blood Urea Nitrogen 10 mg/dl Creatinine 1.07 mg/dl Est Creatinine Clear Calc Drug Dose 48.0 ml/min Estimated GFR () 66.7 Estimated GFR (Non- 57.6 BUN/Creatinine Ratio 9.3 Random Glucose 96 mg/dl Calcium Level 6.9 mg/dl Chemistry Specimen Hemolysis Urine Color YELLOW Urine Appearance CLEAR Urine pH 5.0 Urine Specific [place] 1.021 Urine Protein NEG Urine Glucose (UA) NEG Urine Ketones NEG Urine Occult Blood NEG Urine Nitrite NEG Urine Bilirubin NEG Urine Urobilinogen NEG Urine Leukocyte Esterase NEG Test 11/04/17 19:53 11/05/17 06:25 11/05/17 06:28 11/05/17 08:34 Troponin I 0.016 ng/ml White Blood Count 5.80 K/uL Red Blood Count 3.82 M/uL Hemoglobin 12.0 g/dL Hematocrit 34.8 % Mean Corpuscular Volume 91.1 fL Mean Corpuscular Hemoglobin 31.4 pg Mean Corpuscular Hemoglobin Concent 34.5 g/dl Platelet Count 95 K/uL Mean Platelet Volume 11.4 fL Neutrophils (%) (Auto) 69.0 % Lymphocytes (%) (Auto) 20.0 % Monocytes (%) (Auto) 10.0 % Eosinophils (%) (Auto) 0.5 % Basophils (%) (Auto) 0.2 % Neutrophils # (Auto) 4.00 K/uL Lymphocytes # (Auto) 1.16 K/uL Monocytes # (Auto) 0.58 K/uL Eosinophils # (Auto) 0.03 K/uL Basophils # (Auto) 0.01 K/uL RDW Standard Deviation 66.3 fL RDW Coefficient of Variation 19.9 % Immature Granulocyte % (Auto) 0.3 % Immature Granulocyte # (Auto) 0.02 K/uL Sodium Level 133 mmol/L Potassium Level 3.2 mmol/L Chloride Level 99 mmol/L Carbon Dioxide Level 29 mmol/L Anion Gap 5.0 mmol/L Blood Urea Nitrogen 3 mg/dl Creatinine 0.62 mg/dl Est Creatinine Clear Calc Drug Dose 82.8 ml/min Estimated GFR () 116.0 Estimated GFR (Non- 100.1 BUN/Creatinine Ratio 5.6 Random Glucose 76 mg/dl Calcium Level 7.0 mg/dl Total Bilirubin 1.8 mg/dl Direct Bilirubin 0.5 mg/dl Aspartate Amino Transf (AST/SGOT) 244 U/L Alanine Aminotransferase (ALT/SGPT) 95 U/L Alkaline Phosphatase 182 U/L Total Protein 5.0 gm/dl Albumin 1.9 gm/dl Globulin 3.1 gm/dl Albumin/Globulin Ratio 0.6 Amylase Level 108 U/L Lipase 706 U/L Date/Time Source Procedure Growth Status 11/04/17 17:25 Stool C.difficile Toxin B Gene (PCR) - Final No C. difficile toxin B gene detected Complete Assessment & Plan This is a 57yo F with a PMH of recent acute pancreatitis, h/o etoh abuse, paroxysmal A Fib (on coumadin), HTN, tobacco use disorder, PVD (s/p bilateral femoral endarterectomy in Sep 2016) and s/p Left BKA who presents with abdominal pain. Acute pancreatitis: -H/o alcohol abuse, recent pancreatitis last month -Lipase of 3500, leukocytosis of 14.65 -Alcohol level of 16 - CT abdomen: 1. Findings of acute pancreatitis are similar in appearance to the 10/14/2017 examination noting differences in technique. 2. The pancreas enhances homogeneously. No organized peripancreatic fluid collection is identified. The splenic vein is patent. 3. Hepatomegaly and hepatic steatosis. 4. There is a small volume of abdominopelvic ascites. 5. Trace pleural effusions. 6. Additional findings as above. -- pain improving Lipase trending down afebrile WBC improved -- continue Lactated Ringers at 200cc , add K NPO except meds advance diet per GI Transaminitis: - likely alcohol induced, related to pancreatitis - Tra increasing AST/ALT improving - monitor Supratherapeutic INR: -INR elevated to 10 -Likely exacerbated by etoh use -Given 2.5mg Vit K in the ED -No active bleeding -Hold coumadin -- repeat INR pending no signs of bleeding Chest pain: -Reproducible CP, likely from pancreatitis -CXR and EKG wnl -Initial troponin negative -Echo: Sep 2016 normal LV size and function. EF: 60-65% -- resolved H/o alcohol abuse: -3-4 drinks most days x 40 years -Counselled on importance of cessation -Not interested in rehab -Says she is motivated to quit -- no overt signs of withdrawal -- Alcohol Withdrawal Protocol start Gabapentin taper Hyponatremia: -Na of 125. Usually ~ 134 - improved to 133 Paroxysmal A Fib: -Currently in NSR - on Metoprolol -Hold coumadin HTN: -IV lopressor 5mg Q6 with hold parameters -Cont amlodipine, lopressor HLD: - hold statin Peripheral neuropathy s/p left BKA: -PVD (s/p bilateral femoral endarterectomy in Sep 2016) -- resume ASA and Plavix when INR not supratherapeutic anymore -- resume Roxicodone DVT Ppx: SCDs, teds INR supratherapeutic Code status: FULL PCP: [facility] Dispo: pending anticipate d/c home when medically stable Current Inpatient Medications: Current Inpatient Medications Medications (Trade) Dose Ordered Sig/Rosa Route Start Time Stop Time Status Last Admin Dose Admin Ondansetron HCl (Zofran Inj) 4 mg Q6H PRN IV 11/04/17 11:45 12/04/17 11:44 Lactated Ringer's 1,000 ml @ 200 mls/hr Q5H IV 11/04/17 11:47 12/04/17 11:46 11/05/17 08:39 200 MLS/HR Polyethylene (Miralax Powder Packet) 17 gm DAILY PRN PO 11/04/17 12:00 12/04/17 11:59 Thiamine HCl (Vitamin B-1 Tab) 100 mg QAM PO 11/04/17 15:00 12/04/17 14:59 11/05/17 08:37 100 MG Lorazepam (Ativan Inj) 1 mg ONE PRN IV 11/04/17 12:00 Pantoprazole Sodium 40 mg/ Syringe 10 ml @ 5 mls/min DAILY@11 IV 11/05/17 11:00 12/05/17 10:59 Amiodarone HCl (Cordarone Tab) 200 mg DAILY PO 11/05/17 09:00 12/05/17 08:59 11/05/17 08:38 200 MG Amlodipine Besylate (Norvasc Tab) 10 mg DAILY PO 11/05/17 09:00 12/05/17 08:59 11/05/17 08:38 10 MG Atorvastatin Calcium (Lipitor Tab) 80 mg HS PO 11/04/17 21:00 12/04/17 20:59 Future Hold Fluoxetine HCl (Prozac Cap) 20 mg DAILY PO 11/05/17 09:00 12/05/17 08:59 Future Hold Metoprolol Tartrate (Lopressor Tab) 25 mg BID PO 11/04/17 21:00 12/04/17 20:59 11/05/17 08:37 25 MG Pregabalin (Lyrica Cap) 75 mg BID PO 11/04/17 21:00 12/04/17 20:59 Future Hold Ranitidine HCl (zANTac TAB) 300 mg HS PO 11/04/17 21:00 12/04/17 20:59 11/04/17 20:31 300 MG Ioversol (Optiray 320) 111 ml UD PRN IV 11/04/17 16:15 11/08/17 16:14 Metoprolol Tartrate (Lopressor Iv) 5 mg Q6 PRN IV 11/04/17 18:00 12/04/17 14:59 Hydromorphone HCl (Dilaudid Inj) 1 mg Q3H PRN IV 11/04/17 17:15 11/18/17 11:59 11/05/17 06:31 1 MG Docusate Sodium (coLACE CAP) 100 mg BID PRN PO 11/05/17 09:00 12/04/17 20:59 Gabapentin (Neurontin Tab) 1,200 mg SEE PROTOCOL TEXT PO 11/05/17 08:45 12/05/17 08:44 UNV Potassium Chloride 20 meq/ Lactated Ringer's 1,000 ml @ 200 mls/hr Q5H IV 11/05/17 08:45 12/05/17 08:44 UNV Oxycodone HCl (Roxicodone Immediate Rel Tab) 5 mg Q6H PRN PO 11/05/17 09:00 11/19/17 08:59 UNV
[2017-11-05] MEDS: OXYCODONE HCL IR 5 MG TAB (IMMEDIATE RELEASE) PO PRN ×3 (09:29→21:51)
[2017-11-05] MEDS ORDERED: GABAPENTIN 1200MG LOADING DOSE PO SCH (10:00)
[2017-11-05] MEDS: POTASSIUM CHLR IV SCH ×3 (10:27→22:11)
[2017-11-05] MEDS: WTR IV SCH ×3 (10:27→22:11)
[2017-11-05] MEDS: LACTATED RINGER S IV SCH ×3 (10:27→22:11)
[2017-11-05] MEDS: PANTOprazole INJ 40 MG in SYRINGE 0 ML IV SCH (10:44)
[2017-11-05] MEDS ORDERED: NURSING VERBAL MED ORDER ONE (10:45)
--- NOTE | 2017-11-05 12:17 | Gastroenterology Progress Note ---
Progress Note Date of Service: Nov 05, 2017 Subjective Pt evaluation today including: conversation w/ patient, physical exam, chart review, lab review, review of inpatient medication list Pt reports abd pain is much improved, no nausea. Wants to try some food. Is passing flatus. Review of Systems Constitutional: No fever, No chills Respiratory: No cough, No shortness of breath Cardiac: No chest pain Abdomen: + pain (improved ), No nausea, No vomiting Medications Current Inpatient Medications Medications (Trade) Dose Ordered Sig/Rosa Route Start Time Stop Time Status Last Admin Dose Admin Ondansetron HCl (Zofran Inj) 4 mg Q6H PRN IV 11/04/17 11:45 12/04/17 11:44 Polyethylene (Miralax Powder Packet) 17 gm DAILY PRN PO 11/04/17 12:00 12/04/17 11:59 Thiamine HCl (Vitamin B-1 Tab) 100 mg QAM PO 11/04/17 15:00 12/04/17 14:59 11/05/17 08:37 100 MG Lorazepam (Ativan Inj) 1 mg ONE PRN IV 11/04/17 12:00 Pantoprazole Sodium 40 mg/ Syringe 10 ml @ 5 mls/min DAILY@11 IV 11/05/17 11:00 12/05/17 10:59 11/05/17 10:44 5 MLS/MIN Amiodarone HCl (Cordarone Tab) 200 mg DAILY PO 11/05/17 09:00 12/05/17 08:59 11/05/17 08:38 200 MG Amlodipine Besylate (Norvasc Tab) 10 mg DAILY PO 11/05/17 09:00 12/05/17 08:59 11/05/17 08:38 10 MG Atorvastatin Calcium (Lipitor Tab) 80 mg HS PO 11/04/17 21:00 12/04/17 20:59 Future Hold Fluoxetine HCl (Prozac Cap) 20 mg DAILY PO 11/05/17 09:00 12/05/17 08:59 Future Hold Metoprolol Tartrate (Lopressor Tab) 25 mg BID PO 11/04/17 21:00 12/04/17 20:59 11/05/17 08:37 25 MG Pregabalin (Lyrica Cap) 75 mg BID PO 11/04/17 21:00 12/04/17 20:59 Future Hold Ranitidine HCl (zANTac TAB) 300 mg HS PO 11/04/17 21:00 12/04/17 20:59 11/04/17 20:31 300 MG Ioversol (Optiray 320) 111 ml UD PRN IV 11/04/17 16:15 11/08/17 16:14 Metoprolol Tartrate (Lopressor Iv) 5 mg Q6 PRN IV 11/04/17 18:00 12/04/17 14:59 Docusate Sodium (coLACE CAP) 100 mg BID PRN PO 11/05/17 09:00 12/04/17 20:59 Potassium Chloride 20 meq/ Lactated Ringer's 1,000 ml @ 150 mls/hr Q6H40M IV 11/05/17 09:15 12/05/17 09:14 11/05/17 10:27 150 MLS/HR Oxycodone HCl (Roxicodone Immediate Rel Tab) 5 mg Q6H PRN PO 11/05/17 09:00 11/19/17 08:59 11/05/17 09:29 5 MG Lorazepam (Ativan Inj) 0.5 mg Q4H PRN IV 11/05/17 09:00 12/05/17 08:59 Gabapentin (Neurontin Tab) 600 mg Q6H PO 11/05/17 16:00 11/05/17 22:01 Gabapentin (Neurontin Tab) 600 mg Q8H PO 11/06/17 06:00 11/06/17 22:01 Gabapentin (Neurontin Tab) 600 mg Q12H PO 11/07/17 10:00 11/07/17 22:01 Gabapentin (Neurontin Tab) 600 mg Q24H PO 11/08/17 22:00 11/08/17 22:01 Hydromorphone HCl (Dilaudid Inj) 0.5 mg Q6H PRN IV 11/05/17 10:30 11/19/17 10:29 11/05/17 11:00 0.5 MG Objective Vital Signs Date Time Temp Pulse Resp B/P (MAP) Pulse Ox O2 Delivery O2 Flow Rate FiO2 11/05/17 12:03 36.9 73 19 148/83 (104) 94 Room Air 11/05/17 08:00 Room Air 2/9/18 07:55 36.7 79 18 130/82 (98) 95 Room Air 11/05/17 04:00 Room Air 11/05/17 03:38 37.1 70 20 143/74 (97) 96 Room Air 11/05/17 00:00 Room Air 11/04/17 23:40 37.1 84 18 104/64 (77) 91 Room Air 11/04/17 20:00 95 Room Air 11/04/17 18:52 37.3 68 19 114/80 (91) 94 Room Air 11/04/17 17:31 130/85 (100) 11/04/17 16:13 87 161/82 11/04/17 16:00 96 Room Air 11/04/17 15:18 37.0 87 20 161/82 (108) 97 Room Air 11/04/17 14:23 37.3 91 16 106/80 (89) 97 Room Air 11/04/17 13:35 91 20 141/100 97 Room Air Physical Exam General Appearance: WD/WN, no apparent distress Eyes: normal inspection, PERRL, EOMI Neck: supple, no JVD, trachea midline Respiratory/Chest: normal breath sounds, no respiratory distress, no accessory muscle use Cardiovascular: regular rate, rhythm, no gallop, no murmur Abdomen: normal bowel sounds, non tender, soft Extremities: + pertinent finding (L BKA) Neurologic/Psych: alert, normal mood/affect, oriented x 3 Skin: normal color, no jaundice, no rash Laboratory Results Last 24 Hours Test 11/04/17 14:02 11/04/17 15:51 11/04/17 17:25 11/04/17 17:31 Troponin I < 0.015 ng/ml Acetaminophen Level 3 ug/ml Sodium Level 127 mmol/L Potassium Level 3.8 mmol/L Chloride Level 98 mmol/L Carbon Dioxide Level 15 mmol/L Anion Gap 14.0 mmol/L Blood Urea Nitrogen 10 mg/dl Creatinine 1.07 mg/dl Est Creatinine Clear Calc Drug Dose 48.0 ml/min Estimated GFR () 66.7 Estimated GFR (Non- 57.6 BUN/Creatinine Ratio 9.3 Random Glucose 96 mg/dl Calcium Level 6.9 mg/dl Chemistry Specimen Hemolysis Urine Color YELLOW Urine Appearance CLEAR Urine pH 5.0 Urine Specific Thomas 1.021 Urine Protein NEG Urine Glucose (UA) NEG Urine Ketones NEG Urine Occult Blood NEG Urine Nitrite NEG Urine Bilirubin NEG Urine Urobilinogen NEG Urine Leukocyte Esterase NEG Test 11/04/17 19:53 11/05/17 06:25 11/05/17 06:28 Troponin I 0.016 ng/ml White Blood Count 5.80 K/uL Red Blood Count 3.82 M/uL Hemoglobin 12.0 g/dL Hematocrit 34.8 % Mean Corpuscular Volume 91.1 fL Mean Corpuscular Hemoglobin 31.4 pg Mean Corpuscular Hemoglobin Concent 34.5 g/dl Platelet Count 95 K/uL Mean Platelet Volume 11.4 fL Neutrophils (%) (Auto) 69.0 % Lymphocytes (%) (Auto) 20.0 % Monocytes (%) (Auto) 10.0 % Eosinophils (%) (Auto) 0.5 % Basophils (%) (Auto) 0.2 % Neutrophils # (Auto) 4.00 K/uL Lymphocytes # (Auto) 1.16 K/uL Monocytes # (Auto) 0.58 K/uL Eosinophils # (Auto) 0.03 K/uL Basophils # (Auto) 0.01 K/uL RDW Standard Deviation 66.3 fL RDW Coefficient of Variation 19.9 % Immature Granulocyte % (Auto) 0.3 % Immature Granulocyte # (Auto) 0.02 K/uL Sodium Level 133 mmol/L Potassium Level 3.2 mmol/L Chloride Level 99 mmol/L Carbon Dioxide Level 29 mmol/L Anion Gap 5.0 mmol/L Blood Urea Nitrogen 3 mg/dl Creatinine 0.62 mg/dl Est Creatinine Clear Calc Drug Dose 82.8 ml/min Estimated GFR () 116.0 Estimated GFR (Non- 100.1 BUN/Creatinine Ratio 5.6 Random Glucose 76 mg/dl Calcium Level 7.0 mg/dl Magnesium Level 1.8 mg/dl Total Bilirubin 1.8 mg/dl Direct Bilirubin 0.5 mg/dl Aspartate Amino Transf (AST/SGOT) 244 U/L Alanine Aminotransferase (ALT/SGPT) 95 U/L Alkaline Phosphatase 182 U/L Total Protein 5.0 gm/dl Albumin 1.9 gm/dl Globulin 3.1 gm/dl Albumin/Globulin Ratio 0.6 Amylase Level 108 U/L Lipase 706 U/L Prothrombin Time 35.4 SECONDS Prothromb Time International Ratio 3.5 Assessment and Plan Patient is a 57 year old female with abdominal pain, n/v, labs showed leukocytosis, elevated LFTs, lipase consistent with pancreatitis. Was admitted 3 weeks ago with pancreatitis as well, likely ETOH induced. She continues to drink ETOH 3-4 beers a day, admitted because "pain on L leg now controlled and bored". ETOH level at admission 16. She also smokes cigarettes. Regarding LFT elevation: at last admission, not significantly elevated. She has hx of acute liver failure related to Augmentin use in the past, but denies any other liver disease, nor family hx of autoimmune liver diseases. Grandma w hx of pancreas ca. For now suspect LFT elevation related to acute pancreatitis. This AM Lipase and LFTs are decreasing (except Tbili 1.8 from 0.7). CT abd/ pelivs w/o any signs of fluid collection or abscess, + acute pancreatitis similar to previous study. + Hepatomegaly and hepatic steatosis no intrahepatic biliary dilation. Plan - LR @150ml/hr - Check Utox (pending) and APAP level (3). - CL diet - ETOH cessation strongly advised - She had EUS appt scheduled for 11/09 from previous pancreatitis episode, will move this to 6 week's time. I performed a history and physical examination of the patient. I have discussed the patient's case, impression and plan with EMMY Lee. Her note reflects my findings and plan. Clinically improving. Lipase down to 700s from 3500. Cristhian Eagle MD
[2017-11-05 14:19] LABS: CALCIUM 7.6 mg/dl (8.5-10.1); CREATININE 0.53 mg/dl (0.60-1.20); POTASSIUM 3.4 mmol/L (3.5-5.1)
[2017-11-05] MEDS: GABAPENTIN 600MG Q6H DOSE PO SCH ×2 (15:26→21:48)
[2017-11-05] MEDS ORDERED: POTASSIUM CHLORIDE 10 MEQ TABCR PO ONE (18:45)
[2017-11-05] MEDS: RANITIDINE HCL 150 MG TAB PO SCH (21:48)
[2017-11-06] VITALS (7 sets, daily range): BP systolic 117–138; BP diastolic 71–84; PULSE 66–92; TEMP 36.6–37.3; O2SAT 93–96
--- NOTE | 2017-11-06 01:49 | Gastroenterology Progress Note ---
Progress Note Date of Service: Nov 06, 2017 Subjective Pt evaluation today including: conversation w/ patient, physical exam The patient notes feeling much better this morning. She is interested in having a meal. Review of Systems Constitutional: No fever, No fatigue Respiratory: No cough, No wheezing, No dyspnea at rest Abdomen: No pain, No vomiting Medications Current Inpatient Medications Medications (Trade) Dose Ordered Sig/Rosa Route Start Time Stop Time Status Last Admin Dose Admin Ondansetron HCl (Zofran Inj) 4 mg Q6H PRN IV 11/04/17 11:45 12/04/17 11:44 Polyethylene (Miralax Powder Packet) 17 gm DAILY PRN PO 11/04/17 12:00 12/04/17 11:59 Thiamine HCl (Vitamin B-1 Tab) 100 mg QAM PO 11/04/17 15:00 12/04/17 14:59 11/05/17 08:37 100 MG Lorazepam (Ativan Inj) 1 mg ONE PRN IV 11/04/17 12:00 Pantoprazole Sodium 40 mg/ Syringe 10 ml @ 5 mls/min DAILY@11 IV 11/05/17 11:00 12/05/17 10:59 11/05/17 10:44 5 MLS/MIN Amiodarone HCl (Cordarone Tab) 200 mg DAILY PO 11/05/17 09:00 12/05/17 08:59 11/05/17 08:38 200 MG Amlodipine Besylate (Norvasc Tab) 10 mg DAILY PO 11/05/17 09:00 12/05/17 08:59 11/05/17 08:38 10 MG Atorvastatin Calcium (Lipitor Tab) 80 mg HS PO 11/04/17 21:00 12/04/17 20:59 Future Hold Fluoxetine HCl (Prozac Cap) 20 mg DAILY PO 11/05/17 09:00 12/05/17 08:59 Future Hold Metoprolol Tartrate (Lopressor Tab) 25 mg BID PO 11/04/17 21:00 12/04/17 20:59 11/05/17 21:48 25 MG Pregabalin (Lyrica Cap) 75 mg BID PO 11/04/17 21:00 12/04/17 20:59 Future Hold Ranitidine HCl (zANTac TAB) 300 mg HS PO 11/04/17 21:00 12/04/17 20:59 2/9/18 21:48 300 MG Ioversol (Optiray 320) 111 ml UD PRN IV 11/04/17 16:15 11/08/17 16:14 Metoprolol Tartrate (Lopressor Iv) 5 mg Q6 PRN IV 11/04/17 18:00 12/04/17 14:59 Docusate Sodium (coLACE CAP) 100 mg BID PRN PO 11/05/17 09:00 12/04/17 20:59 Potassium Chloride 20 meq/ Lactated Ringer's 1,000 ml @ 150 mls/hr Q6H40M IV 11/05/17 09:15 12/05/17 09:14 11/05/17 22:11 150 MLS/HR Oxycodone HCl (Roxicodone Immediate Rel Tab) 5 mg Q6H PRN PO 11/05/17 09:00 11/19/17 08:59 11/05/17 21:51 5 MG Lorazepam (Ativan Inj) 0.5 mg Q4H PRN IV 11/05/17 09:00 12/05/17 08:59 Gabapentin (Neurontin Tab) 600 mg Q8H PO 11/06/17 06:00 11/06/17 22:01 Gabapentin (Neurontin Tab) 600 mg Q12H PO 11/07/17 10:00 11/07/17 22:01 Gabapentin (Neurontin Tab) 600 mg Q24H PO 11/08/17 22:00 11/08/17 22:01 Hydromorphone HCl (Dilaudid Inj) 0.5 mg Q6H PRN IV 11/05/17 10:30 11/19/17 10:29 11/05/17 23:01 0.5 MG Objective Vital Signs Date Time Temp Pulse Resp B/P (MAP) Pulse Ox O2 Delivery O2 Flow Rate FiO2 11/05/17 23:59 94 Room Air 11/05/17 23:05 36.8 75 17 129/78 (95) 94 Room Air 11/05/17 20:00 94 Room Air 11/05/17 19:17 36.9 70 17 97/61 (73) 94 Room Air 11/05/17 16:00 Room Air 11/05/17 15:51 37.1 71 20 132/82 (99) 96 Room Air 11/05/17 12:03 36.9 73 19 148/83 (104) 94 Room Air 11/05/17 12:00 Room Air 11/05/17 08:00 Room Air 11/05/17 07:55 36.7 79 18 130/82 (98) 95 Room Air 11/05/17 04:00 Room Air 11/05/17 03:38 37.1 70 20 143/74 (97) 96 Room Air Physical Exam General Appearance: no apparent distress Respiratory/Chest: lungs clear Abdomen: soft Neurologic/Psych: oriented x 3 Skin: no jaundice Laboratory Results Last 24 Hours Test 11/05/17 06:25 11/05/17 06:28 11/05/17 13:46 White Blood Count 5.80 K/uL Red Blood Count 3.82 M/uL Hemoglobin 12.0 g/dL Hematocrit 34.8 % Mean Corpuscular Volume 91.1 fL Mean Corpuscular Hemoglobin 31.4 pg Mean Corpuscular Hemoglobin Concent 34.5 g/dl Platelet Count 95 K/uL Mean Platelet Volume 11.4 fL Neutrophils (%) (Auto) 69.0 % Lymphocytes (%) (Auto) 20.0 % Monocytes (%) (Auto) 10.0 % Eosinophils (%) (Auto) 0.5 % Basophils (%) (Auto) 0.2 % Neutrophils # (Auto) 4.00 K/uL Lymphocytes # (Auto) 1.16 K/uL Monocytes # (Auto) 0.58 K/uL Eosinophils # (Auto) 0.03 K/uL Basophils # (Auto) 0.01 K/uL RDW Standard Deviation 66.3 fL RDW Coefficient of Variation 19.9 % Immature Granulocyte % (Auto) 0.3 % Immature Granulocyte # (Auto) 0.02 K/uL Sodium Level 133 mmol/L 134 mmol/L Potassium Level 3.2 mmol/L 3.4 mmol/L Chloride Level 99 mmol/L 100 mmol/L Carbon Dioxide Level 29 mmol/L 29 mmol/L Anion Gap 5.0 mmol/L 5.0 mmol/L Blood Urea Nitrogen 3 mg/dl 2 mg/dl Creatinine 0.62 mg/dl 0.53 mg/dl Est Creatinine Clear Calc Drug Dose 82.8 ml/min 96.8 ml/min Estimated GFR () 116.0 122.2 Estimated GFR (Non- 100.1 105.4 BUN/Creatinine Ratio 5.6 3.7 Random Glucose 76 mg/dl 81 mg/dl Calcium Level 7.0 mg/dl 7.6 mg/dl Magnesium Level 1.8 mg/dl Total Bilirubin 1.8 mg/dl Direct Bilirubin 0.5 mg/dl Aspartate Amino Transf (AST/SGOT) 244 U/L Alanine Aminotransferase (ALT/SGPT) 95 U/L Alkaline Phosphatase 182 U/L Total Protein 5.0 gm/dl Albumin 1.9 gm/dl Globulin 3.1 gm/dl Albumin/Globulin Ratio 0.6 Amylase Level 108 U/L Lipase 706 U/L Prothrombin Time 35.4 SECONDS Prothromb Time International Ratio 3.5 Assessment and Plan Patient admitted with recurrent pancreatitis thought to be related to her history of alcohol abuse. She appears to be much better today and will likely tolerated diet. Recommendations Advance to a low-fat diet If patient tolerates diet she may be eligible for discharge on Wednesday or Wednesday Please call with any questions or concerns during the remainder of the admission , GI to sign off Endoscopic ultrasound as outpatient.
[2017-11-06] MEDS: POTASSIUM CHLR IV SCH ×2 (05:02→10:51)
[2017-11-06] MEDS: OXYCODONE HCL IR 5 MG TAB (IMMEDIATE RELEASE) PO PRN ×2 (05:02→14:21)
[2017-11-06] MEDS: WTR IV SCH ×2 (05:02→10:51)
[2017-11-06] MEDS: LACTATED RINGER S IV SCH ×2 (05:02→10:51)
[2017-11-06] MEDS: GABAPENTIN 600MG Q8H DOSE PO SCH ×3 (06:06→21:05)
[2017-11-06] MEDS: HYDROmorphone INJ 1 MG/ML SYR IV PRN ×2 (06:06→16:09)
[2017-11-06 07:02] LABS: HEMATOCRIT 36.1 % (37-47); HEMOGLOBIN 12.2 g/dL (12.0-16.0); MEAN CELL VOLUME 93.8 fL (80-100); MEAN CORPUSCULAR HEMOGLOBIN 31.7 pg (25-34); MEAN CORPUSCULAR HGB CONC 33.8 g/dl (32-36); RED CELL DISTRIBUTION WIDTH CV 20.3 % (11.5-14.5); RED CELL DISTRIBUTION WIDTH SD 69.7 fL (36.4-46.3); WHITE BLOOD COUNT 6.05 K/uL (4.8-10.8)
[2017-11-06 07:07] LABS: INR 2.1 (0.9-1.1)
[2017-11-06 07:35] LABS: ALBUMIN 2.1 gm/dl (3.4-5.0); CALCIUM 7.9 mg/dl (8.5-10.1); CREATININE 0.52 mg/dl (0.60-1.20); POTASSIUM 3.8 mmol/L (3.5-5.1)
[2017-11-06 07:39] LABS: TOTAL PROTEIN 5.6 gm/dl (6.4-8.2)
[2017-11-06] MEDS: AMLODIPINE BESYLATE 5 MG TAB PO SCH (07:49)
[2017-11-06] MEDS: LORAZEPAM 2 MG/ML 1 ML VIAL IV PRN ×2 (07:49→21:07)
[2017-11-06] MEDS: AMIODARONE 200 MG TAB PO SCH (07:49)
[2017-11-06] MEDS: METOPROLOL TARTRATE 25 MG TAB PO SCH ×2 (07:50→21:05)
[2017-11-06] MEDS: THIAMINE HCL 100 MG TAB PO SCH (07:50)
[2017-11-06 08:03] LABS: MEAN PLATELET VOLUME 11.3 fL (7.4-10.4); PLATELET COUNT 80 K/uL (130-400)
[2017-11-06 08:39] LABS: BASO % 0.2 %; BASO ABS # 0.01 K/uL (0-0.2); EOS % 1.2 %; EOS ABS # 0.07 K/uL (0-0.5); IG# 0.02 K/uL (0.00-0.02); LYMPH ABS # 1.45 K/uL (1.2-3.4); MONO % 6.6 %; NEUT % 67.7 %
[2017-11-06 10:15] LABS: HEP C IGG 13 YRS+OLDER_RFLX NEG (NEG)
[2017-11-06] MEDS: PANTOprazole INJ 40 MG in SYRINGE 0 ML IV SCH (10:51)
--- NOTE | 2017-11-06 11:55 | Progress Note ---
Medicine Progress Note Date & Time of Visit: Nov 06, 2017 at 11:43. Subjective seen resting in bed, comfortable noted to be anxious by RN this AM, patient denies tremors/hallucinations/ sweating states abdominal pain is improved tolerated diet well this morning no nausea has BMs left stump pain improving denies other symptoms Objective Last 8 Hrs Date Time Temp Pulse Resp B/P (MAP) Pulse Ox O2 Delivery O2 Flow Rate FiO2 11/06/17 11:39 36.9 92 18 128/83 (98) 94 Room Air 11/06/17 08:00 Room Air 11/06/17 07:51 36.9 71 18 135/83 (100) 96 Room Air 11/06/17 04:02 37.1 73 17 138/81 (100) 94 Room Air 11/06/17 04:00 94 Room Air Physical Exam: General- oriented x 3, not in distress, speaks in sentences with no effort Head- atraumatic Eyes- anicteric Neck- supple, no JVD Lungs- clear BS BL Heart- regular rhythm; no murmur, normal rate Abdomen- normal bowel sounds, non distended, soft, very mild tenderness on the epigastric area Extremities- no pretibial edema, no calf tenderness- Right s/p L BKA- moderate tenderness, no erythema/warmth/discharge Neuro- alert, oriented x 3; no gross focal deficits noted no tremors Skin- warm & dry Laboratory Results: Last 24 Hours Test 11/05/17 13:46 11/06/17 06:33 Sodium Level 134 mmol/L 137 mmol/L Potassium Level 3.4 mmol/L 3.8 mmol/L Chloride Level 100 mmol/L 100 mmol/L Carbon Dioxide Level 29 mmol/L 32 mmol/L Anion Gap 5.0 mmol/L 5.0 mmol/L Blood Urea Nitrogen 2 mg/dl 3 mg/dl Creatinine 0.53 mg/dl 0.52 mg/dl Est Creatinine Clear Calc Drug Dose 96.8 ml/min 98.7 ml/min Estimated GFR () 122.2 122.9 Estimated GFR (Non- 105.4 106.1 BUN/Creatinine Ratio 3.7 5.2 Random Glucose 81 mg/dl 73 mg/dl Calcium Level 7.6 mg/dl 7.9 mg/dl White Blood Count 6.05 K/uL Red Blood Count 3.85 M/uL Hemoglobin 12.2 g/dL Hematocrit 36.1 % Mean Corpuscular Volume 93.8 fL Mean Corpuscular Hemoglobin 31.7 pg Mean Corpuscular Hemoglobin Concent 33.8 g/dl Platelet Count 80 K/uL Mean Platelet Volume 11.3 fL Neutrophils (%) (Auto) 67.7 % Lymphocytes (%) (Auto) 24.0 % Monocytes (%) (Auto) 6.6 % Eosinophils (%) (Auto) 1.2 % Basophils (%) (Auto) 0.2 % Neutrophils # (Auto) 4.10 K/uL Lymphocytes # (Auto) 1.45 K/uL Monocytes # (Auto) 0.40 K/uL Eosinophils # (Auto) 0.07 K/uL Basophils # (Auto) 0.01 K/uL RDW Standard Deviation 69.7 fL RDW Coefficient of Variation 20.3 % Immature Granulocyte % (Auto) 0.3 % Immature Granulocyte # (Auto) 0.02 K/uL Anisocytosis PRESENT Prothrombin Time 21.8 SECONDS Prothromb Time International Ratio 2.1 Total Bilirubin 1.9 mg/dl Direct Bilirubin 0.8 mg/dl Aspartate Amino Transf (AST/SGOT) 146 U/L Alanine Aminotransferase (ALT/SGPT) 76 U/L Alkaline Phosphatase 180 U/L Total Protein 5.6 gm/dl Albumin 2.1 gm/dl Globulin 3.5 gm/dl Albumin/Globulin Ratio 0.6 Amylase Level 68 U/L Lipase 436 U/L Hepatitis B Surface Antigen NEG Hepatitis C Antibody NEG Assessment & Plan This is a 57yo F with a PMH of recent acute pancreatitis, h/o etoh abuse, paroxysmal A Fib (on coumadin), HTN, tobacco use disorder, PVD (s/p bilateral femoral endarterectomy in Sep 2016) and s/p Left BKA who presents with abdominal pain. Acute pancreatitis: -H/o alcohol abuse, recent pancreatitis last month -Lipase of 3500, leukocytosis of 14.65 -Alcohol level of 16 - CT abdomen: 1. Findings of acute pancreatitis are similar in appearance to the 10/14/2017 examination noting differences in technique. 2. The pancreas enhances homogeneously. No organized peripancreatic fluid collection is identified. The splenic vein is patent. 3. Hepatomegaly and hepatic steatosis. 4. There is a small volume of abdominopelvic ascites. 5. Trace pleural effusions. 6. Additional findings as above. -- pain improving Lipase trending down further afebrile WBC improved --decreased Lactated Ringers further advance diet as tolerated -- EUS in 6 weeks GI consulted Transaminitis: - likely alcohol induced, related to pancreatitis - Tra increasing AST/ALT improving improving Supratherapeutic INR: -INR elevated to 10 -Likely exacerbated by etoh use -Given 2.5mg Vit K in the ED -No active bleeding - INR 2.1 resume coumadin Chest pain: -Reproducible CP, likely from pancreatitis -CXR and EKG wnl -Initial troponin negative -Echo: Sep 2016 normal LV size and function. EF: 60-65% -- resolved H/o alcohol abuse: -3-4 drinks most days x 40 years -Counselled on importance of cessation -Not interested in rehab - Says she is motivated to quit -- no overt signs of withdrawal -- Alcohol Withdrawal Protocol Gabapentin taper Hyponatremia: -Na of 125. Usually ~ 134 - improved Paroxysmal A Fib: -Currently in NSR - on Metoprolol INR 2.1 on coumadin HTN: -Cont amlodipine, lopressor HLD: - hold statin Peripheral neuropathy s/p left BKA: -PVD (s/p bilateral femoral endarterectomy in Sep 2016) -- resume ASA and Plavix -- on Roxicodone -- discussed with Dr. Gan, recommend Lidoderm patch, outpatient ff up DVT Ppx: SCDs, teds coumadin Code status: FULL PCP: [facility] Dispo: pending anticipate d/c home when medically stable Current Inpatient Medications: Current Inpatient Medications Medications (Trade) Dose Ordered Sig/Rosa Route Start Time Stop Time Status Last Admin Dose Admin Ondansetron HCl (Zofran Inj) 4 mg Q6H PRN IV 11/04/17 11:45 12/04/17 11:44 Polyethylene (Miralax Powder Packet) 17 gm DAILY PRN PO 11/04/17 12:00 12/04/17 11:59 Thiamine HCl (Vitamin B-1 Tab) 100 mg QAM PO 11/04/17 15:00 12/04/17 14:59 11/06/17 07:50 100 MG Lorazepam (Ativan Inj) 1 mg ONE PRN IV 11/04/17 12:00 Pantoprazole Sodium 40 mg/ Syringe 10 ml @ 5 mls/min DAILY@11 IV 11/05/17 11:00 12/05/17 10:59 11/06/17 10:51 5 MLS/MIN Amiodarone HCl (Cordarone Tab) 200 mg DAILY PO 11/05/17 09:00 12/05/17 08:59 11/06/17 07:49 200 MG Amlodipine Besylate (Norvasc Tab) 10 mg DAILY PO 11/05/17 09:00 12/05/17 08:59 11/06/17 07:49 10 MG Atorvastatin Calcium (Lipitor Tab) 80 mg HS PO 11/04/17 21:00 12/04/17 20:59 Future Hold Fluoxetine HCl (Prozac Cap) 20 mg DAILY PO 11/05/17 09:00 12/05/17 08:59 Future Hold Metoprolol Tartrate (Lopressor Tab) 25 mg BID PO 11/04/17 21:00 12/04/17 20:59 11/06/17 07:50 25 MG Pregabalin (Lyrica Cap) 75 mg BID PO 11/04/17 21:00 12/04/17 20:59 Future Hold Ranitidine HCl (zANTac TAB) 300 mg HS PO 11/04/17 21:00 12/04/17 20:59 11/05/17 21:48 300 MG Ioversol (Optiray 320) 111 ml UD PRN IV 11/04/17 16:15 11/08/17 16:14 Metoprolol Tartrate (Lopressor Iv) 5 mg Q6 PRN IV 11/04/17 18:00 12/04/17 14:59 Docusate Sodium (coLACE CAP) 100 mg BID PRN PO 11/05/17 09:00 12/04/17 20:59 Potassium Chloride 20 meq/ Lactated Ringer's 1,000 ml @ 150 mls/hr Q6H40M IV 11/05/17 09:15 12/05/17 09:14 11/06/17 10:51 150 MLS/HR Oxycodone HCl (Roxicodone Immediate Rel Tab) 5 mg Q6H PRN PO 11/05/17 09:00 11/19/17 08:59 11/06/17 05:02 5 MG Lorazepam (Ativan Inj) 0.5 mg Q4H PRN IV 11/05/17 09:00 12/05/17 08:59 11/06/17 07:49 0.5 MG Gabapentin (Neurontin Tab) 600 mg Q8H PO 11/06/17 06:00 11/06/17 22:01 11/06/17 06:06 600 MG Gabapentin (Neurontin Tab) 600 mg Q12H PO 11/07/17 10:00 11/07/17 22:01 Gabapentin (Neurontin Tab) 600 mg Q24H PO 11/08/17 22:00 11/08/17 22:01 Hydromorphone HCl (Dilaudid Inj) 0.5 mg Q6H PRN IV 11/05/17 10:30 11/19/17 10:29 11/06/17 06:06 0.5 MG Warfarin Sodium (Coumadin Tab) 2.5 mg DAILY@16 PO 11/06/17 16:00 12/06/17 15:59
--- NOTE | 2017-11-06 11:56 | PROGRESS NOTE ---
DATE: 11/06/2017 SUBJECTIVE: I had a phone consultation with Dr. Landis, regarding this patient. 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 I suggest that they try a Lidoderm patch, cut in half with each half applied to the knee from anterior to posterior, on the medial side of the knee and the lateral side of the knee that way we may also help the gabapentin control the neuropathic pain. Dr. Landis states that there is no obvious sign of any infection and clinically, she does not have the fever, she does not have redness in that area per his report and her white count is 6.05, so at this point we will just stick with a phone consultation only. If things change, you can always call me; however, to avoid unnecessary inpatient expense, will not provide official inpatient consultation at this point in time. CHRIS
[2017-11-06] MEDS ORDERED: LIDODERM (LIDOCAINE) PATCH 5% TD ONE (12:00)
[2017-11-06] MEDS ORDERED: WARFARIN SOD 2.5 MG TAB PO SCH (16:00)
[2017-11-06] MEDS: RANITIDINE HCL 150 MG TAB PO SCH (21:05)
[2017-11-07] MEDS: POTASSIUM CHLR IV SCH (03:34)
[2017-11-07] MEDS: WTR IV SCH (03:34)
[2017-11-07] MEDS: LACTATED RINGER S IV SCH (03:34)
[2017-11-07 03:49] VITALS: BP 116/67; PULSE 70; TEMP 37; O2SAT 93
[2017-11-07 06:50] LABS: HEMOGLOBIN 10.7 g/dL (12.0-16.0); MEAN CORPUSCULAR HEMOGLOBIN 31.8 pg (25-34); MEAN CORPUSCULAR HGB CONC 33.4 g/dl (32-36); RED CELL DISTRIBUTION WIDTH CV 20.8 % (11.5-14.5); RED CELL DISTRIBUTION WIDTH SD 72.2 fL (36.4-46.3); WHITE BLOOD COUNT 6.24 K/uL (4.8-10.8)
[2017-11-07 06:51] LABS: MEAN PLATELET VOLUME 11.7 fL (7.4-10.4); PLATELET COUNT 76 K/uL (130-400)
[2017-11-07 06:57] LABS: INR 1.6 (0.9-1.1)
[2017-11-07 07:32] LABS: ALBUMIN 1.8 gm/dl (3.4-5.0); CALCIUM 7.9 mg/dl (8.5-10.1); CREATININE 0.54 mg/dl (0.60-1.20); POTASSIUM 3.9 mmol/L (3.5-5.1); TOTAL PROTEIN 5.3 gm/dl (6.4-8.2)
[2017-11-07 07:34] VITALS: BP 122/58; PULSE 64; TEMP 36.9; O2SAT 95
[2017-11-07 07:49] LABS: BASO % 0.3 %; BASO ABS # 0.02 K/uL (0-0.2); EOS % 2.9 %; EOS ABS # 0.18 K/uL (0-0.5); IG# 0.01 K/uL (0.00-0.02); LYMPH % 28.2 %; LYMPH ABS # 1.76 K/uL (1.2-3.4); MONO % 9.6 %; NEUT % 58.8 %; NEUT ABS # 3.67 K/uL (1.4-6.5)
[2017-11-07] MEDS: LIDODERM (LIDOCAINE) PATCH 5% TD SCH (08:04)
[2017-11-07] MEDS: OXYCODONE HCL IR 5 MG TAB (IMMEDIATE RELEASE) PO PRN ×2 (08:05→16:28)
[2017-11-07] MEDS: AMLODIPINE BESYLATE 5 MG TAB PO SCH (08:05)
[2017-11-07] MEDS: PANTOprazole SOD 40 MG TAB PO SCH (08:06)
[2017-11-07] MEDS: AMIODARONE 200 MG TAB PO SCH (08:06)
[2017-11-07] MEDS: METOPROLOL TARTRATE 25 MG TAB PO SCH ×2 (08:07→21:02)
[2017-11-07 08:15] LABS: HEPATITIS A IGM TC 51813E NON-REACTIVE (NON-REACTIVE); HEPATITIS B CORE IGM TC51854R NON-REACTIVE (NON-REACTIVE)
[2017-11-07] MEDS ORDERED: ASPIRIN 81 MG ECTAB PO SCH (09:00)
[2017-11-07] MEDS ORDERED: CLOPIDOGREL BISULFATE 75 MG TAB PO SCH (09:00)
[2017-11-07] MEDS: THIAMINE HCL 100 MG TAB PO SCH (09:30)
[2017-11-07] MEDS: GABAPENTIN 600MG Q12H DOSE PO SCH ×2 (09:30→21:02)
--- NOTE | 2017-11-07 09:43 | Gastroenterology Progress Note ---
Progress Note Date of Service: Nov 07, 2017 Subjective Pt evaluation today including: conversation w/ patient The patient notes that her epigastric pain is better than admission but didn't seem to worsen with addition of regular food yesterday. Review of Systems Constitutional: No fever, No sweats, No fatigue Respiratory: No cough, No wheezing, No dyspnea at rest Cardiac: No chest pain, No PND, No palpitations Medications Current Inpatient Medications Medications (Trade) Dose Ordered Sig/Rosa Route Start Time Stop Time Status Last Admin Dose Admin Ondansetron HCl (Zofran Inj) 4 mg Q6H PRN IV 11/04/17 11:45 12/04/17 11:44 Polyethylene (Miralax Powder Packet) 17 gm DAILY PRN PO 11/04/17 12:00 12/04/17 11:59 Thiamine HCl (Vitamin B-1 Tab) 100 mg QAM PO 11/04/17 15:00 12/04/17 14:59 11/07/17 09:30 100 MG Lorazepam (Ativan Inj) 1 mg ONE PRN IV 11/04/17 12:00 Amiodarone HCl (Cordarone Tab) 200 mg DAILY PO 11/05/17 09:00 12/05/17 08:59 11/07/17 08:06 200 MG Amlodipine Besylate (Norvasc Tab) 10 mg DAILY PO 11/05/17 09:00 12/05/17 08:59 11/07/17 08:05 10 MG Atorvastatin Calcium (Lipitor Tab) 80 mg HS PO 11/04/17 21:00 12/04/17 20:59 Future Hold Fluoxetine HCl (Prozac Cap) 20 mg DAILY PO 11/05/17 09:00 12/05/17 08:59 Future Hold Metoprolol Tartrate (Lopressor Tab) 25 mg BID PO 11/04/17 21:00 12/04/17 20:59 11/07/17 08:07 25 MG Pregabalin (Lyrica Cap) 75 mg BID PO 11/04/17 21:00 12/04/17 20:59 Future Hold Ranitidine HCl (zANTac TAB) 300 mg HS PO 11/04/17 21:00 12/04/17 20:59 11/06/17 21:05 300 MG Ioversol (Optiray 320) 111 ml UD PRN IV 11/04/17 16:15 11/08/17 16:14 Metoprolol Tartrate (Lopressor Iv) 5 mg Q6 PRN IV 11/04/17 18:00 12/04/17 14:59 Docusate Sodium (coLACE CAP) 100 mg BID PRN PO 11/05/17 09:00 12/04/17 20:59 Potassium Chloride 20 meq/ Lactated Ringer's 1,000 ml @ 60 mls/hr [id number] IV 11/05/17 09:15 12/05/17 09:14 11/07/17 03:34 60 MLS/HR Oxycodone HCl (Roxicodone Immediate Rel Tab) 5 mg Q6H PRN PO 11/05/17 09:00 11/19/17 08:59 11/07/17 08:05 5 MG Lorazepam (Ativan Inj) 0.5 mg Q4H PRN IV 11/05/17 09:00 12/05/17 08:59 11/06/17 21:07 0.5 MG Gabapentin (Neurontin Tab) 600 mg Q12H PO 11/07/17 10:00 11/07/17 22:01 11/07/17 09:30 600 MG Gabapentin (Neurontin Tab) 600 mg Q24H PO 11/08/17 22:00 11/08/17 22:01 Hydromorphone HCl (Dilaudid Inj) 0.5 mg Q6H PRN IV 11/05/17 10:30 11/19/17 10:29 11/06/17 16:09 0.5 MG Warfarin Sodium (Coumadin Tab) 2.5 mg DAILY@16 PO 11/06/17 16:00 12/06/17 15:59 11/06/17 15:53 2.5 MG Lidocaine (Lidoderm Patch 5%) 1 patch QAM TD 11/07/17 09:00 12/07/17 08:59 11/07/17 08:04 1 PATCH Miscellaneous (Remove Lidoderm Patch) 1 ea DAILY@21 N/A 11/06/17 21:00 12/06/17 20:59 11/06/17 21:06 1 EA Pantoprazole Sodium (Protonix Tab) 40 mg QAM PO 11/07/17 09:00 11/11/17 08:59 11/07/17 08:06 40 MG Aspirin (Ecotrin Tab) 81 mg DAILY PO 11/07/17 09:00 12/07/17 08:59 11/07/17 08:06 81 MG Clopidogrel Bisulfate (plAVix TAB) 75 mg DAILY PO 11/07/17 09:00 12/07/17 08:59 11/07/17 08:06 75 MG Objective Vital Signs Date Time Temp Pulse Resp B/P (MAP) Pulse Ox O2 Delivery O2 Flow Rate FiO2 11/07/17 08:00 Room Air 11/07/17 07:34 36.9 64 14 122/58 (79) 95 Room Air 11/07/17 04:00 Room Air 11/07/17 03:49 37.0 70 18 116/67 (83) 93 Room Air 11/07/17 00:02 Room Air 11/06/17 23:32 37.3 70 20 117/71 (86) 96 Room Air 11/06/17 20:01 Room Air 11/06/17 19:09 36.6 66 23 125/84 (98) 93 Room Air 11/06/17 16:00 Room Air 11/06/17 15:28 36.8 71 21 119/76 (90) 94 Room Air 11/06/17 12:00 Room Air 11/06/17 11:39 36.9 92 18 128/83 (98) 94 Room Air Physical Exam General Appearance: no apparent distress Eyes: PERRL Neck: no JVD (JVD) Respiratory/Chest: lungs clear Abdomen: soft, + tenderness (mild epigastric tenderness) Neurologic/Psych: oriented x 3 Skin: no jaundice Laboratory Results Last 24 Hours Test 11/07/17 06:24 White Blood Count 6.24 K/uL Red Blood Count 3.37 M/uL Hemoglobin 10.7 g/dL Hematocrit 32.0 % Mean Corpuscular Volume 95.0 fL Mean Corpuscular Hemoglobin 31.8 pg Mean Corpuscular Hemoglobin Concent 33.4 g/dl Platelet Count 76 K/uL Mean Platelet Volume 11.7 fL Neutrophils (%) (Auto) 58.8 % Lymphocytes (%) (Auto) 28.2 % Monocytes (%) (Auto) 9.6 % Eosinophils (%) (Auto) 2.9 % Basophils (%) (Auto) 0.3 % Neutrophils # (Auto) 3.67 K/uL Lymphocytes # (Auto) 1.76 K/uL Monocytes # (Auto) 0.60 K/uL Eosinophils # (Auto) 0.18 K/uL Basophils # (Auto) 0.02 K/uL RDW Standard Deviation 72.2 fL RDW Coefficient of Variation 20.8 % Immature Granulocyte % (Auto) 0.2 % Immature Granulocyte # (Auto) 0.01 K/uL Large Platelets 1+ Anisocytosis PRESENT Prothrombin Time 16.8 SECONDS Prothromb Time International Ratio 1.6 Sodium Level 138 mmol/L Potassium Level 3.9 mmol/L Chloride Level 103 mmol/L Carbon Dioxide Level 30 mmol/L Anion Gap 6.0 mmol/L Blood Urea Nitrogen 3 mg/dl Creatinine 0.54 mg/dl Est Creatinine Clear Calc Drug Dose 95.0 ml/min Estimated GFR () 121.4 Estimated GFR (Non- 104.8 BUN/Creatinine Ratio 6.1 Random Glucose 96 mg/dl Calcium Level 7.9 mg/dl Total Bilirubin 1.2 mg/dl Direct Bilirubin 0.5 mg/dl Aspartate Amino Transf (AST/SGOT) 59 U/L Alanine Aminotransferase (ALT/SGPT) 47 U/L Alkaline Phosphatase 143 U/L Total Protein 5.3 gm/dl Albumin 1.8 gm/dl Globulin 3.5 gm/dl Albumin/Globulin Ratio 0.5 Amylase Level 73 U/L Lipase 595 U/L Assessment and Plan Patient admitted with recurrent pancreatitis thought to be related to her history of alcohol abuse. She does appear to be better than upon admission however her lipase was somewhat higher yesterday. Given this and her persistent epigastric discomfort I would suggest a liquid diet today and reevaluation tomorrow. Recommendations Full liquid diet Endoscopic ultrasound as outpatient.
--- NOTE | 2017-11-07 10:35 | PROGRESS NOTE ---
DATE: 11/07/2017 SUBJECTIVE: Orthopedic rounds. The patient examined today. Her stump is without any sign of any infection. It is all neuropathic pain. She can flex and extend the joint without difficulty. She has particular difficulty when she bears any weight on it. She states she has had little effect from the Lidoderm patch. It should be changed every 12 hours. We will write the order for that. In the future, may need to consider pain management for potential adductor canal block to desensitize the saphenous nerve.
[2017-11-07 11:32] VITALS: BP 129/80; PULSE 68; TEMP 36.9; O2SAT 97
[2017-11-07] MEDS: HYDROmorphone INJ 1 MG/ML SYR IV PRN ×2 (12:28→19:27)
[2017-11-07 13:22] LABS: HEMATOCRIT 31.8 % (37-47); HEMOGLOBIN 10.8 g/dL (12.0-16.0); MEAN CELL VOLUME 94.4 fL (80-100); RED CELL DISTRIBUTION WIDTH CV 20.4 % (11.5-14.5); RED CELL DISTRIBUTION WIDTH SD 70.5 fL (36.4-46.3); WHITE BLOOD COUNT 5.85 K/uL (4.8-10.8)
[2017-11-07 13:36] LABS: MEAN PLATELET VOLUME 11.2 fL (7.4-10.4); PLATELET COUNT 72 K/uL (130-400)
[2017-11-07] MEDS: LORAZEPAM 2 MG/ML 1 ML VIAL IV PRN ×3 (13:40→22:29)
[2017-11-07 13:59] LABS: BASO % 0.2 %; BASO ABS # 0.01 K/uL (0-0.2); EOS % 2.7 %; EOS ABS # 0.16 K/uL (0-0.5); IG# 0.02 K/uL (0.00-0.02); LYMPH % 22.6 %; LYMPH ABS # 1.32 K/uL (1.2-3.4); MONO % 8.9 %; MONO ABS # 0.52 K/uL (0.11-0.59); NEUT % 65.3 %; NEUT ABS # 3.82 K/uL (1.4-6.5)
[2017-11-07 15:19] VITALS: BP 99/65; PULSE 68; TEMP 36.9; O2SAT 95
[2017-11-07] MEDS ORDERED: WARFARIN SOD 5 MG TAB PO SCH (16:00)
--- NOTE | 2017-11-07 18:09 | Progress Note ---
Medicine Progress Note Date & Time of Visit: Nov 07, 2017 at 18:02. Subjective seen resting in bed, comfortable states abdominal pain is improving lipase is increased though no nausea denies bleeding left stump pain improving denies other symptoms Objective Last 8 Hrs Date Time Temp Pulse Resp B/P (MAP) Pulse Ox O2 Delivery O2 Flow Rate FiO2 11/07/17 16:00 Room Air 11/07/17 15:19 36.9 68 18 99/65 (76) 95 Room Air 11/07/17 12:00 Room Air 11/07/17 11:32 36.9 68 18 129/80 (96) 97 Room Air Physical Exam: General- oriented x 3, not in distress, speaks in sentences with no effort Eyes- anicteric Neck- no JVD Lungs- clear BS BL, no rales/wheezes Heart- regular rhythm; no murmur, normal rate Abdomen- normal bowel sounds, non distended, soft, very mild tenderness on the epigastric area Extremities- no pretibial edema, no calf tenderness- Right s/p L BKA- mild tenderness, no erythema/warmth/discharge Neuro- alert, oriented x 3; no gross focal deficits noted no tremors Skin- warm & dry Laboratory Results: Last 24 Hours Test 11/07/17 06:24 11/07/17 13:03 White Blood Count 6.24 K/uL 5.85 K/uL Red Blood Count 3.37 M/uL 3.37 M/uL Hemoglobin 10.7 g/dL 10.8 g/dL Hematocrit 32.0 % 31.8 % Mean Corpuscular Volume 95.0 fL 94.4 fL Mean Corpuscular Hemoglobin 31.8 pg 32.0 pg Mean Corpuscular Hemoglobin Concent 33.4 g/dl 34.0 g/dl Platelet Count 76 K/uL 72 K/uL Mean Platelet Volume 11.7 fL 11.2 fL Neutrophils (%) (Auto) 58.8 % 65.3 % Lymphocytes (%) (Auto) 28.2 % 22.6 % Monocytes (%) (Auto) 9.6 % 8.9 % Eosinophils (%) (Auto) 2.9 % 2.7 % Basophils (%) (Auto) 0.3 % 0.2 % Neutrophils # (Auto) 3.67 K/uL 3.82 K/uL Lymphocytes # (Auto) 1.76 K/uL 1.32 K/uL Monocytes # (Auto) 0.60 K/uL 0.52 K/uL Eosinophils # (Auto) 0.18 K/uL 0.16 K/uL Basophils # (Auto) 0.02 K/uL 0.01 K/uL RDW Standard Deviation 72.2 fL 70.5 fL RDW Coefficient of Variation 20.8 % 20.4 % Immature Granulocyte % (Auto) 0.2 % 0.3 % Immature Granulocyte # (Auto) 0.01 K/uL 0.02 K/uL Large Platelets 1+ 1+ Anisocytosis PRESENT PRESENT Prothrombin Time 16.8 SECONDS Prothromb Time International Ratio 1.6 Sodium Level 138 mmol/L Potassium Level 3.9 mmol/L Chloride Level 103 mmol/L Carbon Dioxide Level 30 mmol/L Anion Gap 6.0 mmol/L Blood Urea Nitrogen 3 mg/dl Creatinine 0.54 mg/dl Est Creatinine Clear Calc Drug Dose 95.0 ml/min Estimated GFR () 121.4 Estimated GFR (Non- 104.8 BUN/Creatinine Ratio 6.1 Random Glucose 96 mg/dl Calcium Level 7.9 mg/dl Total Bilirubin 1.2 mg/dl Direct Bilirubin 0.5 mg/dl Aspartate Amino Transf (AST/SGOT) 59 U/L Alanine Aminotransferase (ALT/SGPT) 47 U/L Alkaline Phosphatase 143 U/L Total Protein 5.3 gm/dl Albumin 1.8 gm/dl Globulin 3.5 gm/dl Albumin/Globulin Ratio 0.5 Amylase Level 73 U/L Lipase 595 U/L Heparin-PF4 Antibody Screen NEG Assessment & Plan This is a 57yo F with a PMH of recent acute pancreatitis, h/o etoh abuse, paroxysmal A Fib (on coumadin), HTN, tobacco use disorder, PVD (s/p bilateral femoral endarterectomy in Sep 2016) and s/p Left BKA who presents with abdominal pain. Acute pancreatitis: -H/o alcohol abuse, recent pancreatitis last month -Lipase of 3500, leukocytosis of 14.65 -Alcohol level of 16 - CT abdomen: 1. Findings of acute pancreatitis are similar in appearance to the 10/14/2017 examination noting differences in technique. 2. The pancreas enhances homogeneously. No organized peripancreatic fluid collection is identified. The splenic vein is patent. 3. Hepatomegaly and hepatic steatosis. 4. There is a small volume of abdominopelvic ascites. 5. Trace pleural effusions. 6. Additional findings as above. -- pain improving Lipase increased slightly afebrile WBC improved --decreased Lactated Ringers back to full liquids today monitor -- EUS in 6 weeks GI consulted Transaminitis: - likely alcohol induced, related to pancreatitis - Tra increasing AST/ALT improving improving Supratherapeutic INR: -INR elevated to 10 -Likely exacerbated by etoh use -Given 2.5mg Vit K in the ED -No active bleeding - INR now 1.6 hold Coumadin as Plt 70s Thrombocytopenia - HIT ab negative - from underlying pancreatitis, bone marrow suppression? alcoholism? - no signs of active bleeding monitor - HOLD coumadin, aspirin, plavix Chest pain: -Reproducible CP, likely from pancreatitis -CXR and EKG wnl -Initial troponin negative -Echo: Sep 2016 normal LV size and function. EF: 60-65% -- resolved H/o alcohol abuse: -3-4 drinks most days x 40 years -Counselled on importance of cessation -Not interested in rehab - Says she is motivated to quit -- no overt signs of withdrawal -- Alcohol Withdrawal Protocol Gabapentin taper Hyponatremia: -Na of 125. Usually ~ 134 - improved to 138 Paroxysmal A Fib: -Currently in NSR - on Metoprolol INR 1.6 - holding coumadin for thrombocytopenia HTN: -Cont amlodipine, lopressor HLD: - hold statin Peripheral neuropathy s/p left BKA: -- PVD (s/p bilateral femoral endarterectomy in Sep 2016) -- HOLD ASA and Plavix for thrombocytopenia -- on Roxicodone -- discussed with Dr. Gan, recommend Lidoderm patch, outpatient ff up DVT Ppx SCDs, teds coumadin held for plt level low Code status: FULL PCP: [facility] Dispo: pending anticipate d/c home when medically stable Current Inpatient Medications: Current Inpatient Medications Medications (Trade) Dose Ordered Sig/Rosa Route Start Time Stop Time Status Last Admin Dose Admin Ondansetron HCl (Zofran Inj) 4 mg Q6H PRN IV 11/04/17 11:45 12/04/17 11:44 Polyethylene (Miralax Powder Packet) 17 gm DAILY PRN PO 11/04/17 12:00 12/04/17 11:59 Thiamine HCl (Vitamin B-1 Tab) 100 mg QAM PO 11/04/17 15:00 12/04/17 14:59 11/07/17 09:30 100 MG Lorazepam (Ativan Inj) 1 mg ONE PRN IV 11/04/17 12:00 Amiodarone HCl (Cordarone Tab) 200 mg DAILY PO 11/05/17 09:00 12/05/17 08:59 11/07/17 08:06 200 MG Amlodipine Besylate (Norvasc Tab) 10 mg DAILY PO 11/05/17 09:00 12/05/17 08:59 11/07/17 08:05 10 MG Atorvastatin Calcium (Lipitor Tab) 80 mg HS PO 11/04/17 21:00 12/04/17 20:59 Future Hold Fluoxetine HCl (Prozac Cap) 20 mg DAILY PO 11/05/17 09:00 12/05/17 08:59 Future Hold Metoprolol Tartrate (Lopressor Tab) 25 mg BID PO 11/04/17 21:00 12/04/17 20:59 11/07/17 08:07 25 MG Pregabalin (Lyrica Cap) 75 mg BID PO 11/04/17 21:00 12/04/17 20:59 Future Hold Ranitidine HCl (zANTac TAB) 300 mg HS PO 11/04/17 21:00 12/04/17 20:59 11/06/17 21:05 300 MG Ioversol (Optiray 320) 111 ml UD PRN IV 11/04/17 16:15 11/08/17 16:14 Metoprolol Tartrate (Lopressor Iv) 5 mg Q6 PRN IV 11/04/17 18:00 12/04/17 14:59 Docusate Sodium (coLACE CAP) 100 mg BID PRN PO 11/05/17 09:00 12/04/17 20:59 Potassium Chloride 20 meq/ Lactated Ringer's 1,000 ml @ 60 mls/hr [id number] IV 11/05/17 09:15 12/05/17 09:14 11/07/17 03:34 60 MLS/HR Oxycodone HCl (Roxicodone Immediate Rel Tab) 5 mg Q6H PRN PO 11/05/17 09:00 11/19/17 08:59 11/07/17 16:28 5 MG Lorazepam (Ativan Inj) 0.5 mg Q4H PRN IV 11/05/17 09:00 12/05/17 08:59 11/07/17 17:42 0.5 MG Gabapentin (Neurontin Tab) 600 mg Q12H PO 11/07/17 10:00 11/07/17 22:01 11/07/17 09:30 600 MG Gabapentin (Neurontin Tab) 600 mg Q24H PO 11/08/17 22:00 11/08/17 22:01 Hydromorphone HCl (Dilaudid Inj) 0.5 mg Q6H PRN IV 11/05/17 10:30 11/19/17 10:29 11/07/17 12:28 0.5 MG Lidocaine (Lidoderm Patch 5%) 1 patch QAM TD 11/07/17 09:00 12/07/17 08:59 11/07/17 08:04 1 PATCH Miscellaneous (Remove Lidoderm Patch) 1 ea DAILY@21 N/A 11/06/17 21:00 12/06/17 20:59 11/06/17 21:06 1 EA Pantoprazole Sodium (Protonix Tab) 40 mg QAM PO 11/07/17 09:00 11/11/17 08:59 11/07/17 08:06 40 MG
[2017-11-07 19:08] VITALS: BP 126/79; PULSE 65; TEMP 36.9; O2SAT 97
[2017-11-07] MEDS ORDERED: NICOTINE 14 MG/24 HR TDSY TD ONE (19:15)
[2017-11-07] MEDS: RANITIDINE HCL 150 MG TAB PO SCH (21:02)
[2017-11-07 23:24] VITALS: BP 112/74; PULSE 67; TEMP 36.9; O2SAT 95
[2017-11-08] VITALS (8 sets, daily range): BP systolic 112–142; BP diastolic 67–88; PULSE 59–93; TEMP 36.5–37; O2SAT 95–99
[2017-11-08] MEDS: OXYCODONE HCL IR 5 MG TAB (IMMEDIATE RELEASE) PO PRN ×4 (00:43→21:46)
[2017-11-08] MEDS: HYDROmorphone INJ 1 MG/ML SYR IV PRN ×2 (06:30→19:20)
[2017-11-08 07:31] LABS: INR 1.2 (0.9-1.1)
[2017-11-08 08:16] LABS: HEMATOCRIT 30.9 % (37-47); HEMOGLOBIN 10.5 g/dL (12.0-16.0); MEAN CELL VOLUME 95.1 fL (80-100); MEAN CORPUSCULAR HEMOGLOBIN 32.3 pg (25-34); RED CELL DISTRIBUTION WIDTH CV 20.3 % (11.5-14.5); RED CELL DISTRIBUTION WIDTH SD 69.7 fL (36.4-46.3); WHITE BLOOD COUNT 5.64 K/uL (4.8-10.8)
[2017-11-08 08:22] LABS: CALCIUM 8.2 mg/dl (8.5-10.1); CREATININE 0.45 mg/dl (0.60-1.20); POTASSIUM 3.9 mmol/L (3.5-5.1)
[2017-11-08 08:24] LABS: MEAN PLATELET VOLUME 11.6 fL (7.4-10.4); PLATELET COUNT 84 K/uL (130-400)
[2017-11-08 08:40] LABS: BASO % 0.4 %; BASO ABS # 0.02 K/uL (0-0.2); EOS % 3.4 %; EOS ABS # 0.19 K/uL (0-0.5); IG# 0.01 K/uL (0.00-0.02); LYMPH % 33.9 %; LYMPH ABS # 1.91 K/uL (1.2-3.4); MONO % 13.8 %; MONO ABS # 0.78 K/uL (0.11-0.59); NEUT % 48.3 %; NEUT ABS # 2.73 K/uL (1.4-6.5)
[2017-11-08] MEDS: NICOTINE 14 MG/24 HR TDSY TD SCH (08:56)
[2017-11-08] MEDS: AMIODARONE 200 MG TAB PO SCH (09:21)
[2017-11-08] MEDS: PANTOprazole SOD 40 MG TAB PO SCH (09:21)
[2017-11-08] MEDS: METOPROLOL TARTRATE 25 MG TAB PO SCH ×2 (09:21→21:52)
[2017-11-08] MEDS: THIAMINE HCL 100 MG TAB PO SCH (09:21)
[2017-11-08] MEDS: LACTATED RINGER S IV SCH ×2 (09:22→12:36)
[2017-11-08] MEDS: POTASSIUM CHLR IV SCH ×2 (09:22→12:36)
[2017-11-08] MEDS: LIDODERM (LIDOCAINE) PATCH 5% TD SCH (09:22)
[2017-11-08] MEDS: AMLODIPINE BESYLATE 5 MG TAB PO SCH (09:22)
[2017-11-08] MEDS: WTR IV SCH ×2 (09:22→12:36)
--- NOTE | 2017-11-08 10:46 | Gastroenterology Progress Note ---
Progress Note Date of Service: Nov 08, 2017 Subjective Pt evaluation today including: conversation w/ patient, physical exam, chart review, lab review, review of studies, review of inpatient medication list Mr. Garcia is a 57 yr old female who was admitted on 11/04/16 for abdominal pain , CT with IV contrast with acute pancreatitis w/o complications and with fatty liver no biliary ductal dilation, lipase 3504 (today 598). AST was 359 ( yesterday 59), ALT 128 (yesterday 47). On arrival, Urine tox + for alcohol and opiates/oxycodone. Today she is awake, alert, oriented, conversant, and tells me she has only "a little" abdominal pain and nausea. Tolerating a full liquid diet w/o any worsening of symptoms. She doesn't think her "couple of beers a day," caused the pancreatitis but she is willing to abstain and tells me that she will be able to do this w/o formal help. She declines counselling or AA, saying that she has done that before and it wasn't effective. She is on the nicotine patch and plans to stop smoking. Review of Systems Constitutional: No fever, No chills Eyes: No see HPI, No worsening of vision, No eye pain, No redness, No discharge , No diplopia, No problem reported ENT: No see HPI, No hearing loss, No unusual epistaxis, No nasal symptoms, No sore throat, No tinnitus, No dental problems, No trouble swallowing, No pain on swallowing, No problem reported Respiratory: No see HPI, No cough, No sputum, No wheezing, No shortness of breath, No dyspnea on exertion, No dyspnea at rest, No hemoptysis, No problem reported Cardiac: No see HPI, No chest pain, No orthopnea, No PND, No edema, No claudication, No palpitations, No problem reported Abdomen: + see HPI Female : No dysuria Neuro: No memory loss Psych: No depression symptoms Heme: No abnormal bleeding/bruising Endo: No fatigue Skin: No rash Medications Current Inpatient Medications Medications (Trade) Dose Ordered Sig/Rosa Route Start Time Stop Time Status Last Admin Dose Admin Ondansetron HCl (Zofran Inj) 4 mg Q6H PRN IV 11/04/17 11:45 12/04/17 11:44 Polyethylene (Miralax Powder Packet) 17 gm DAILY PRN PO 11/04/17 12:00 12/04/17 11:59 Thiamine HCl (Vitamin B-1 Tab) 100 mg QAM PO 11/04/17 15:00 12/04/17 14:59 11/08/17 09:21 100 MG Amiodarone HCl (Cordarone Tab) 200 mg DAILY PO 11/05/17 09:00 12/05/17 08:59 11/08/17 09:21 200 MG Amlodipine Besylate (Norvasc Tab) 10 mg DAILY PO 11/05/17 09:00 12/05/17 08:59 11/08/17 09:22 10 MG Atorvastatin Calcium (Lipitor Tab) 80 mg HS PO 11/04/17 21:00 12/04/17 20:59 Future Hold Fluoxetine HCl (Prozac Cap) 20 mg DAILY PO 11/05/17 09:00 12/05/17 08:59 Future Hold Metoprolol Tartrate (Lopressor Tab) 25 mg BID PO 11/04/17 21:00 12/04/17 20:59 11/08/17 09:21 25 MG Pregabalin (Lyrica Cap) 75 mg BID PO 11/04/17 21:00 12/04/17 20:59 Future Hold Ranitidine HCl (zANTac TAB) 300 mg HS PO 11/04/17 21:00 12/04/17 20:59 11/07/17 21:02 300 MG Ioversol (Optiray 320) 111 ml UD PRN IV 11/04/17 16:15 11/08/17 16:14 Metoprolol Tartrate (Lopressor Iv) 5 mg Q6 PRN IV 11/04/17 18:00 12/04/17 14:59 Docusate Sodium (coLACE CAP) 100 mg BID PRN PO 11/05/17 09:00 12/04/17 20:59 Potassium Chloride 20 meq/ Lactated Ringer's 1,000 ml @ 60 mls/hr [id number] IV 11/05/17 09:15 12/05/17 09:14 11/08/17 09:22 60 MLS/HR Oxycodone HCl (Roxicodone Immediate Rel Tab) 5 mg Q6H PRN PO 11/05/17 09:00 11/19/17 08:59 11/08/17 09:20 5 MG Gabapentin (Neurontin Tab) 600 mg Q24H PO 11/08/17 22:00 11/08/17 22:01 Hydromorphone HCl (Dilaudid Inj) 0.5 mg Q6H PRN IV 11/05/17 10:30 11/19/17 10:29 11/08/17 06:30 0.5 MG Lidocaine (Lidoderm Patch 5%) 1 patch QAM TD 11/07/17 09:00 12/07/17 08:59 11/08/17 09:22 1 PATCH Miscellaneous (Remove Lidoderm Patch) 1 ea DAILY@21 N/A 11/06/17 21:00 12/06/17 20:59 11/07/17 21:03 1 EA Pantoprazole Sodium (Protonix Tab) 40 mg QAM PO 11/07/17 09:00 11/11/17 08:59 11/08/17 09:21 40 MG Nicotine (Nicoderm Cq 14MG Patch) 1 patch QAM TD 11/08/17 09:00 12/08/17 08:59 Miscellaneous (Remove Nicoderm Patch) 1 ea HS N/A 11/07/17 21:00 12/07/17 20:59 Lorazepam (Ativan Tab) 0.5 mg Q4H PRN PO 11/08/17 09:45 12/08/17 09:44 Objective Vital Signs Date Time Temp Pulse Resp B/P (MAP) Pulse Ox O2 Delivery O2 Flow Rate FiO2 11/08/17 08:09 37.0 64 18 126/82 (97) 95 Room Air 11/08/17 08:00 Room Air 11/08/17 04:02 Room Air 11/08/17 03:45 36.6 65 16 119/73 (88) 96 Room Air 11/08/17 00:00 Room Air 11/07/17 23:24 36.9 67 18 112/74 (87) 95 Room Air 11/07/17 20:00 Room Air 11/07/17 19:08 36.9 65 18 126/79 (95) 97 Room Air 11/07/17 16:00 Room Air 11/07/17 15:19 36.9 68 18 99/65 (76) 95 Room Air 11/07/17 12:00 Room Air 11/07/17 11:32 36.9 68 18 129/80 (96) 97 Room Air Physical Exam General Appearance: no apparent distress ENT: normal ENT inspection, TMs normal, pharynx normal Neck: no adenopathy, no JVD Respiratory/Chest: lungs clear Cardiovascular: regular rate, rhythm, no JVD, no murmur Abdomen: non tender, soft Extremities: no pedal edema, + pertinent finding (post left BKA amputation) Neurologic/Psych: alert, normal mood/affect, oriented x 3 Skin: no jaundice Laboratory Results Last 24 Hours Test 11/07/17 13:03 11/08/17 06:42 11/08/17 06:45 White Blood Count 5.85 K/uL 5.64 K/uL Red Blood Count 3.37 M/uL 3.25 M/uL Hemoglobin 10.8 g/dL 10.5 g/dL Hematocrit 31.8 % 30.9 % Mean Corpuscular Volume 94.4 fL 95.1 fL Mean Corpuscular Hemoglobin 32.0 pg 32.3 pg Mean Corpuscular Hemoglobin Concent 34.0 g/dl 34.0 g/dl Platelet Count 72 K/uL 84 K/uL Mean Platelet Volume 11.2 fL 11.6 fL Neutrophils (%) (Auto) 65.3 % 48.3 % Lymphocytes (%) (Auto) 22.6 % 33.9 % Monocytes (%) (Auto) 8.9 % 13.8 % Eosinophils (%) (Auto) 2.7 % 3.4 % Basophils (%) (Auto) 0.2 % 0.4 % Neutrophils # (Auto) 3.82 K/uL 2.73 K/uL Lymphocytes # (Auto) 1.32 K/uL 1.91 K/uL Monocytes # (Auto) 0.52 K/uL 0.78 K/uL Eosinophils # (Auto) 0.16 K/uL 0.19 K/uL Basophils # (Auto) 0.01 K/uL 0.02 K/uL RDW Standard Deviation 70.5 fL 69.7 fL RDW Coefficient of Variation 20.4 % 20.3 % Immature Granulocyte % (Auto) 0.3 % 0.2 % Immature Granulocyte # (Auto) 0.02 K/uL 0.01 K/uL Large Platelets 1+ 2+ Anisocytosis PRESENT PRESENT Heparin-PF4 Antibody Screen NEG Prothrombin Time 12.4 SECONDS Prothromb Time International Ratio 1.2 Toxic Vacuolation 1+ Sodium Level 135 mmol/L Potassium Level 3.9 mmol/L Chloride Level 101 mmol/L Carbon Dioxide Level 26 mmol/L Anion Gap 8.0 mmol/L Blood Urea Nitrogen 4 mg/dl Creatinine 0.45 mg/dl Est Creatinine Clear Calc Drug Dose 114.1 ml/min Estimated GFR () 128.9 Estimated GFR (Non- 111.2 BUN/Creatinine Ratio 8.8 Random Glucose 81 mg/dl Calcium Level 8.2 mg/dl Lipase 598 U/L Assessment and Plan Ms. Garcia is a 57 yr old female with acute pancreatitis, likely alcoholic. She is much improved. Plan: 1. Advance to low fat, regular consistency diet. 2. Plan for OP EUS in approx 6 weeks. Our office will call her to make arrangements. 3. Counselled regarding the importance of complete alcohol abstention and stopping smoking. I have seen , examined and agree with the plan as outlined by EMMY Damon as above. -Exam reveals soft abd -Improved with conservative care -Recommend EUS but has difficulty with transportation. Ok with MRI to r/o divisum. -Tolerating diet with solid food without pain.
--- NOTE | 2017-11-08 14:31 | Progress Note ---
Medicine Progress Note Date & Time of Visit: Nov 08, 2017 at 14:31. Subjective delayed entry date of service as noted above resting in bed, comfortable denies abdominal pain ,nausea no bleeding pain on the left stump much better denies other symptoms Objective Last 8 Hrs Date Time Temp Pulse Resp B/P (MAP) Pulse Ox O2 Delivery O2 Flow Rate FiO2 11/08/17 12:31 36.5 59 20 112/70 (84) 98 Room Air 11/08/17 12:00 Room Air 11/08/17 08:09 37.0 64 18 126/82 (97) 95 Room Air 11/08/17 08:00 Room Air Physical Exam: General- oriented x 3, not in distress, speaks in sentences with no effort Eyes- anicteric Neck- no JVD Lungs- clear breath sounds bilaterally, no rales/wheezes Heart- regular rhythm; no murmur, normal rate Abdomen- normal bowel sounds, non distended, soft, no tenderness Extremities- no pretibial edema, no calf tenderness- Right s/p L BKA- mild tenderness, no erythema/warmth/discharge Neuro- alert, oriented x 3; no gross focal deficits noted no tremors Skin- warm & dry Laboratory Results: Last 24 Hours Test 11/08/17 06:42 11/08/17 06:45 Prothrombin Time 12.4 SECONDS Prothromb Time International Ratio 1.2 White Blood Count 5.64 K/uL Red Blood Count 3.25 M/uL Hemoglobin 10.5 g/dL Hematocrit 30.9 % Mean Corpuscular Volume 95.1 fL Mean Corpuscular Hemoglobin 32.3 pg Mean Corpuscular Hemoglobin Concent 34.0 g/dl Platelet Count 84 K/uL Mean Platelet Volume 11.6 fL Neutrophils (%) (Auto) 48.3 % Lymphocytes (%) (Auto) 33.9 % Monocytes (%) (Auto) 13.8 % Eosinophils (%) (Auto) 3.4 % Basophils (%) (Auto) 0.4 % Neutrophils # (Auto) 2.73 K/uL Lymphocytes # (Auto) 1.91 K/uL Monocytes # (Auto) 0.78 K/uL Eosinophils # (Auto) 0.19 K/uL Basophils # (Auto) 0.02 K/uL RDW Standard Deviation 69.7 fL RDW Coefficient of Variation 20.3 % Immature Granulocyte % (Auto) 0.2 % Immature Granulocyte # (Auto) 0.01 K/uL Toxic Vacuolation 1+ Large Platelets 2+ Anisocytosis PRESENT Sodium Level 135 mmol/L Potassium Level 3.9 mmol/L Chloride Level 101 mmol/L Carbon Dioxide Level 26 mmol/L Anion Gap 8.0 mmol/L Blood Urea Nitrogen 4 mg/dl Creatinine 0.45 mg/dl Est Creatinine Clear Calc Drug Dose 114.1 ml/min Estimated GFR () 128.9 Estimated GFR (Non- 111.2 BUN/Creatinine Ratio 8.8 Random Glucose 81 mg/dl Calcium Level 8.2 mg/dl Lipase 598 U/L Assessment & Plan This is a 57yo F with a PMH of recent acute pancreatitis, h/o etoh abuse, paroxysmal A Fib (on coumadin), HTN, tobacco use disorder, PVD (s/p bilateral femoral endarterectomy in Sep 2016) and s/p Left BKA who presents with abdominal pain. Acute pancreatitis: -H/o alcohol abuse, recent pancreatitis last month -Lipase of 3500, leukocytosis of 14.65 -Alcohol level of 16 - CT abdomen: 1. Findings of acute pancreatitis are similar in appearance to the 10/14/2017 examination noting differences in technique. 2. The pancreas enhances homogeneously. No organized peripancreatic fluid collection is identified. The splenic vein is patent. 3. Hepatomegaly and hepatic steatosis. 4. There is a small volume of abdominopelvic ascites. 5. Trace pleural effusions. 6. Additional findings as above. -- pain resolved tolerating diet well --diet advanced monitor -- EUS in 6 weeks GI consulted Transaminitis: - likely alcohol induced, related to pancreatitis - Tra increasing AST/ALT improving improving Supratherapeutic INR: -INR elevated to 10 -Likely exacerbated by etoh use -Given 2.5mg Vit K in the ED -No active bleeding - INR now <2 but Plt low hold Coumadin until Plt ~100k Thrombocytopenia - HIT ab negative - from underlying pancreatitis, bone marrow suppression? alcoholism? - no signs of active bleeding monitor - HOLD coumadin, aspirin, plavix - improving Chest pain: -Reproducible CP, likely from pancreatitis -CXR and EKG wnl -Initial troponin negative -Echo: Sep 2016 normal LV size and function. EF: 60-65% -- resolved H/o alcohol abuse: -3-4 drinks most days x 40 years -Counselled on importance of cessation -Not interested in rehab - Says she is motivated to quit -- no overt signs of withdrawal -- Alcohol Withdrawal Protocol Gabapentin taper -- stable Hyponatremia: -Na of 125. Usually ~ 134 - improved to 138 Paroxysmal A Fib: -Currently in NSR - on Metoprolol - management of coumadin as noted above HTN: -Cont amlodipine, lopressor HLD: - hold statin Peripheral neuropathy s/p left BKA: -- PVD (s/p bilateral femoral endarterectomy in Sep 2016) -- HOLD ASA and Plavix for thrombocytopenia -- on Roxicodone -- discussed with Dr. Gan, recommend Lidoderm patch, outpatient ff up DVT Ppx SCDs, teds coumadin held for plt level low Code status: FULL PCP: [facility] Dispo: pending anticipate d/c home when medically stable Current Inpatient Medications: Current Inpatient Medications Medications (Trade) Dose Ordered Sig/Rosa Route Start Time Stop Time Status Last Admin Dose Admin Ondansetron HCl (Zofran Inj) 4 mg Q6H PRN IV 11/04/17 11:45 12/04/17 11:44 Polyethylene (Miralax Powder Packet) 17 gm DAILY PRN PO 11/04/17 12:00 12/04/17 11:59 Thiamine HCl (Vitamin B-1 Tab) 100 mg QAM PO 11/04/17 15:00 12/04/17 14:59 11/08/17 09:21 100 MG Amiodarone HCl (Cordarone Tab) 200 mg DAILY PO 11/05/17 09:00 12/05/17 08:59 11/08/17 09:21 200 MG Amlodipine Besylate (Norvasc Tab) 10 mg DAILY PO 11/05/17 09:00 12/05/17 08:59 11/08/17 09:22 10 MG Atorvastatin Calcium (Lipitor Tab) 80 mg HS PO 11/04/17 21:00 12/04/17 20:59 Future Hold Fluoxetine HCl (Prozac Cap) 20 mg DAILY PO 11/05/17 09:00 12/05/17 08:59 Future Hold Metoprolol Tartrate (Lopressor Tab) 25 mg BID PO 11/04/17 21:00 12/04/17 20:59 11/08/17 09:21 25 MG Pregabalin (Lyrica Cap) 75 mg BID PO 11/04/17 21:00 12/04/17 20:59 Future Hold Ranitidine HCl (zANTac TAB) 300 mg HS PO 11/04/17 21:00 12/04/17 20:59 11/07/17 21:02 300 MG Ioversol (Optiray 320) 111 ml UD PRN IV 11/04/17 16:15 11/08/17 16:14 Metoprolol Tartrate (Lopressor Iv) 5 mg Q6 PRN IV 11/04/17 18:00 12/04/17 14:59 Docusate Sodium (coLACE CAP) 100 mg BID PRN PO 11/05/17 09:00 12/04/17 20:59 Potassium Chloride 20 meq/ Lactated Ringer's 1,000 ml @ 60 mls/hr [id number] IV 11/05/17 09:15 12/05/17 09:14 11/08/17 09:22 60 MLS/HR Oxycodone HCl (Roxicodone Immediate Rel Tab) 5 mg Q6H PRN PO 11/05/17 09:00 11/19/17 08:59 11/08/17 14:11 5 MG Gabapentin (Neurontin Tab) 600 mg Q24H PO 11/08/17 22:00 11/08/17 22:01 Hydromorphone HCl (Dilaudid Inj) 0.5 mg Q6H PRN IV 11/05/17 10:30 11/19/17 10:29 11/08/17 06:30 0.5 MG Lidocaine (Lidoderm Patch 5%) 1 patch QAM TD 11/07/17 09:00 12/07/17 08:59 11/08/17 09:22 1 PATCH Miscellaneous (Remove Lidoderm Patch) 1 ea DAILY@21 N/A 11/06/17 21:00 12/06/17 20:59 11/07/17 21:03 1 EA Pantoprazole Sodium (Protonix Tab) 40 mg QAM PO 11/07/17 09:00 11/11/17 08:59 11/08/17 09:21 40 MG Nicotine (Nicoderm Cq 14MG Patch) 1 patch QAM TD 11/08/17 09:00 12/08/17 08:59 Miscellaneous (Remove Nicoderm Patch) 1 ea HS N/A 11/07/17 21:00 12/07/17 20:59 Lorazepam (Ativan Tab) 0.5 mg Q4H PRN PO 11/08/17 09:45 12/08/17 09:44
[2017-11-08] MEDS: LORAZEPAM 0.5 MG TAB PO PRN ×2 (17:45→21:46)
[2017-11-08] MEDS: RANITIDINE HCL 150 MG TAB PO SCH (21:45)
[2017-11-08] MEDS ORDERED: GABAPENTIN 600MG X1 DOSE PO SCH (22:00)
[2017-11-09] MEDS: HYDROmorphone INJ 1 MG/ML SYR IV PRN ×4 (01:49→23:52)
[2017-11-09 06:01] LABS: HEMATOCRIT 29.7 % (37-47); HEMOGLOBIN 10.1 g/dL (12.0-16.0); MEAN CELL VOLUME 94.3 fL (80-100); MEAN CORPUSCULAR HEMOGLOBIN 32.1 pg (25-34); RED CELL DISTRIBUTION WIDTH CV 20.2 % (11.5-14.5); RED CELL DISTRIBUTION WIDTH SD 69.8 fL (36.4-46.3)
[2017-11-09 06:14] LABS: MEAN PLATELET VOLUME 10.7 fL (7.4-10.4); PLATELET COUNT 95 K/uL (130-400)
[2017-11-09 06:41] LABS: BASO % 0.3 %; BASO ABS # 0.02 K/uL (0-0.2); EOS % 3.1 %; EOS ABS # 0.19 K/uL (0-0.5); IG# 0.03 K/uL (0.00-0.02); LYMPH ABS # 2.17 K/uL (1.2-3.4); MONO % 19.7 %; MONO ABS # 1.22 K/uL (0.11-0.59); NEUT % 41.4 %; NEUT ABS # 2.57 K/uL (1.4-6.5)
[2017-11-09 08:07] VITALS: BP 125/77; PULSE 63; TEMP 36.7; O2SAT 98
--- NOTE | 2017-11-09 08:32 | DIAGNOSTIC IMAGING REPORT ---
MRCP HISTORY: Generalized abdominal pain. Vomiting. Diarrhea. pancreatitis, r/o bile duct abnormalities TECHNIQUE: MRCP of the abdomen was performed without intravenous contrast according to standard departmental protocol. COMPARISON STUDY: Abdomen and pelvis CT 11/04/2017. FINDINGS: Trace left pleural effusion has improved. No hepatic or splenic masses. The gallbladder is contracted. No hydronephrosis. A 6 mm cyst within the lower pole of the left kidney. No significant retroperitoneal lymphadenopathy. There is a left retroaortic renal vein. Mild peripancreatic edema has improved. There is a 2 cm left adrenal gland nodule. Normal right adrenal gland. Cystic foci at the fundus of the gallbladder consistent with adenomyomatosis. No filling defects seen within the common bile duct. There is smooth tapering within the mid common bile duct likely due to the edematous pancreatic head. No definite filling defects identified. No upstream dilatation. No definite evidence for pancreatic divisum. However, this is difficult to assess due to the motion artifact. IMPRESSION: 1. Smooth tapering within the mid common bile duct likely due to the edematous pancreatic head. No filling defects within the common bile duct to suggest a stone. 2. Acute pancreatitis which has improved. 3. No definite evidence for pancreas divisum. 4. Gallbladder adenomyomatosis. Electronically signed by: Manan Colmenares M.D. 11/09/2017 8:31 AM Dictated Date/Time: 11/09/2017 8:23 AM
[2017-11-09] MEDS: METOPROLOL TARTRATE 25 MG TAB PO SCH ×2 (09:00→20:20)
--- NOTE | 2017-11-09 09:03 | Gastroenterology Progress Note ---
Progress Note Date of Service: Nov 09, 2017 Subjective Pt evaluation today including: conversation w/ patient, physical exam, chart review, lab review, review of studies, review of inpatient medication list Mr. Garcia is a 57 yr old female who was admitted on 11/04/16 for abdominal pain , CT with IV contrast with acute pancreatitis w/o complications and with fatty liver no biliary ductal dilation, lipase 3504 (arrival) ->189 (today), AST 359-> 59, ALT 128->47, T bili 1.8 (2 days ago) ->1.2, D Bili 0.8 (2 days ago) -> 0.5. On arrival, Urine tox + for alcohol and opiates/oxycodone. Today pt report much improvement in the epigastric pain, but wishes for complete resolution. Passed a BM yesterday. No nausea. Because pt indicated that she will not be able to get a ride to undergo EUS, instead, MRCP/MRI were ordered: MRCP: 1. Smooth tapering within the mid common bile duct likely due to the edematous pancreatic head. No filling defects within the common bile duct to suggest a stone. 2. Acute pancreatitis which has improved. 3. No definite evidence for pancreas divisum. 4. Gallbladder adenomyomatosis. MRI rescheduled for today (pt unable to lay still that long). Review of Systems Constitutional: No fever, No chills ENT: No hearing loss Respiratory: No cough, No shortness of breath Cardiac: No chest pain Abdomen: + see HPI, + pain, No nausea, No vomiting, No diarrhea, No constipation, No GI bleeding Musculoskeletal: + joint pain (continued stump pain, but improved with lidoderm patch) Female : No dysuria Neuro: No memory loss Psych: No depression symptoms Heme: No abnormal bleeding/bruising Endo: No fatigue Skin: No rash Medications Current Inpatient Medications Medications (Trade) Dose Ordered Sig/Rosa Route Start Time Stop Time Status Last Admin Dose Admin Ondansetron HCl (Zofran Inj) 4 mg Q6H PRN IV 11/04/17 11:45 12/04/17 11:44 Polyethylene (Miralax Powder Packet) 17 gm DAILY PRN PO 11/04/17 12:00 12/04/17 11:59 Thiamine HCl (Vitamin B-1 Tab) 100 mg QAM PO 11/04/17 15:00 3/10/18 14:59 11/08/17 09:21 100 MG Amiodarone HCl (Cordarone Tab) 200 mg DAILY PO 11/05/17 09:00 12/05/17 08:59 11/08/17 09:21 200 MG Amlodipine Besylate (Norvasc Tab) 10 mg DAILY PO 11/05/17 09:00 12/05/17 08:59 11/08/17 09:22 10 MG Atorvastatin Calcium (Lipitor Tab) 80 mg HS PO 11/04/17 21:00 12/04/17 20:59 Future Hold Fluoxetine HCl (Prozac Cap) 20 mg DAILY PO 11/05/17 09:00 12/05/17 08:59 Future Hold Metoprolol Tartrate (Lopressor Tab) 25 mg BID PO 11/04/17 21:00 12/04/17 20:59 11/08/17 21:52 25 MG Pregabalin (Lyrica Cap) 75 mg BID PO 11/04/17 21:00 12/04/17 20:59 Future Hold Ranitidine HCl (zANTac TAB) 300 mg HS PO 11/04/17 21:00 12/04/17 20:59 11/08/17 21:45 300 MG Metoprolol Tartrate (Lopressor Iv) 5 mg Q6 PRN IV 11/04/17 18:00 12/04/17 14:59 Docusate Sodium (coLACE CAP) 100 mg BID PRN PO 11/05/17 09:00 12/04/17 20:59 Oxycodone HCl (Roxicodone Immediate Rel Tab) 5 mg Q6H PRN PO 11/05/17 09:00 11/19/17 08:59 11/08/17 21:46 5 MG Hydromorphone HCl (Dilaudid Inj) 0.5 mg Q6H PRN IV 11/05/17 10:30 11/19/17 10:29 11/09/17 01:49 0.5 MG Lidocaine (Lidoderm Patch 5%) 1 patch QAM TD 11/07/17 09:00 12/07/17 08:59 11/08/17 09:22 1 PATCH Miscellaneous (Remove Lidoderm Patch) 1 ea DAILY@21 N/A 11/06/17 21:00 12/06/17 20:59 11/08/17 21:46 1 EA Pantoprazole Sodium (Protonix Tab) 40 mg QAM PO 11/07/17 09:00 11/11/17 08:59 11/08/17 09:21 40 MG Nicotine (Nicoderm Cq 14MG Patch) 1 patch QAM TD 11/08/17 09:00 12/08/17 08:59 Miscellaneous (Remove Nicoderm Patch) 1 ea HS N/A 11/07/17 21:00 12/07/17 20:59 Lorazepam (Ativan Tab) 0.5 mg Q4H PRN PO 11/08/17 09:45 12/08/17 09:44 11/08/17 21:46 0.5 MG Objective Vital Signs Date Time Temp Pulse Resp B/P (MAP) Pulse Ox O2 Delivery O2 Flow Rate FiO2 11/09/17 08:07 36.7 63 18 125/77 (93) 98 Room Air 11/08/17 23:56 98 Room Air 11/08/17 23:25 36.9 65 16 142/88 (106) 98 Room Air 11/08/17 21:51 65 131/75 (93) 11/08/17 19:25 37.0 93 18 132/85 (101) 99 Room Air 11/08/17 19:25 37.0 93 18 132/85 (101) 99 Room Air 11/08/17 18:40 Room Air 11/08/17 16:00 Room Air 11/08/17 15:42 36.8 63 112/67 (82) 99 Room Air 11/08/17 12:31 36.5 59 20 112/70 (84) 98 Room Air 11/08/17 12:00 Room Air Physical Exam General Appearance: no apparent distress Neck: no adenopathy Respiratory/Chest: lungs clear Cardiovascular: regular rate, rhythm, no gallop, no JVD, no murmur Abdomen: soft, + tenderness (mild epigastric tenderness) Extremities: no pedal edema (no right sided edema), + pertinent finding (left BKA) Neurologic/Psych: alert, normal mood/affect, oriented x 3 Skin: no jaundice Laboratory Results Last 24 Hours Test 11/09/17 05:48 White Blood Count 6.20 K/uL Red Blood Count 3.15 M/uL Hemoglobin 10.1 g/dL Hematocrit 29.7 % Mean Corpuscular Volume 94.3 fL Mean Corpuscular Hemoglobin 32.1 pg Mean Corpuscular Hemoglobin Concent 34.0 g/dl Platelet Count 95 K/uL Mean Platelet Volume 10.7 fL Neutrophils (%) (Auto) 41.4 % Lymphocytes (%) (Auto) 35.0 % Monocytes (%) (Auto) 19.7 % Eosinophils (%) (Auto) 3.1 % Basophils (%) (Auto) 0.3 % Neutrophils # (Auto) 2.57 K/uL Lymphocytes # (Auto) 2.17 K/uL Monocytes # (Auto) 1.22 K/uL Eosinophils # (Auto) 0.19 K/uL Basophils # (Auto) 0.02 K/uL RDW Standard Deviation 69.8 fL RDW Coefficient of Variation 20.2 % Immature Granulocyte % (Auto) 0.5 % Immature Granulocyte # (Auto) 0.03 K/uL Giant Platelets 3+ Anisocytosis PRESENT Prothrombin Time 10.9 SECONDS Prothromb Time International Ratio 1.0 Assessment and Plan Ms. Garcia is a 57 yr old female with acute pancreatitis, likely alcoholic. She is much improved. Plan: 1. Advance to low fat, regular consistency diet. 2. MRI pancreas today. 3. Counselled regarding the importance of complete alcohol abstention and stopping smoking. 4. May have a regular consistency low fat diet after the MRI. I have seen , examined and agree with the plan as outlined by EMMY Damon as above. -exam reveals soft abd -MRI with likely physiological narrowing of CBD in the intra-pancreatic portion of CBD -Pain with solid food, will decrease diet -Will continue to follow
[2017-11-09] MEDS: LIDODERM (LIDOCAINE) PATCH 5% TD SCH (09:59)
[2017-11-09] MEDS: NICOTINE 14 MG/24 HR TDSY TD SCH (10:00)
--- NOTE | 2017-11-09 10:48 | Progress Note ---
Medicine Progress Note Date & Time of Visit: Nov 09, 2017 at 10:41. Subjective patient seen resting in bed having epigastric pain again, moderate no nausea no bleeding no chest pain, dyspnea, dizziness no other symptoms Objective Last 8 Hrs Date Time Temp Pulse Resp B/P (MAP) Pulse Ox O2 Delivery O2 Flow Rate FiO2 11/09/17 08:07 36.7 63 18 125/77 (93) 98 Room Air 11/09/17 08:00 Room Air Physical Exam: General- oriented x 3, not in distress, speaks in sentences with no effort Eyes- anicteric Neck- no JVD Lungs- clear BS bilaterally, no rales/wheezes Heart- regular rhythm; no murmur, normal rate Abdomen- normal bowel sounds, non distended, soft, no tenderness Extremities- no pretibial edema, no calf tenderness- Right s/p L BKA- mild tenderness, no erythema/warmth/discharge Neuro- alert, oriented x 3; no gross focal deficits noted no tremors Skin- warm & dry Laboratory Results: Last 24 Hours Test 11/09/17 05:48 White Blood Count 6.20 K/uL Red Blood Count 3.15 M/uL Hemoglobin 10.1 g/dL Hematocrit 29.7 % Mean Corpuscular Volume 94.3 fL Mean Corpuscular Hemoglobin 32.1 pg Mean Corpuscular Hemoglobin Concent 34.0 g/dl Platelet Count 95 K/uL Mean Platelet Volume 10.7 fL Neutrophils (%) (Auto) 41.4 % Lymphocytes (%) (Auto) 35.0 % Monocytes (%) (Auto) 19.7 % Eosinophils (%) (Auto) 3.1 % Basophils (%) (Auto) 0.3 % Neutrophils # (Auto) 2.57 K/uL Lymphocytes # (Auto) 2.17 K/uL Monocytes # (Auto) 1.22 K/uL Eosinophils # (Auto) 0.19 K/uL Basophils # (Auto) 0.02 K/uL RDW Standard Deviation 69.8 fL RDW Coefficient of Variation 20.2 % Immature Granulocyte % (Auto) 0.5 % Immature Granulocyte # (Auto) 0.03 K/uL Giant Platelets 3+ Anisocytosis PRESENT Prothrombin Time 10.9 SECONDS Prothromb Time International Ratio 1.0 Assessment & Plan This is a 57yo F with a PMH of recent acute pancreatitis, h/o etoh abuse, paroxysmal A Fib (on coumadin), HTN, tobacco use disorder, PVD (s/p bilateral femoral endarterectomy in Sep 2016) and s/p Left BKA who presents with abdominal pain. Acute pancreatitis: -H/o alcohol abuse, recent pancreatitis last month -Lipase of 3500, leukocytosis of 14.65 -Alcohol level of 16 - CT abdomen: 1. Findings of acute pancreatitis are similar in appearance to the 10/14/2017 examination noting differences in technique. 2. The pancreas enhances homogeneously. No organized peripancreatic fluid collection is identified. The splenic vein is patent. 3. Hepatomegaly and hepatic steatosis. 4. There is a small volume of abdominopelvic ascites. 5. Trace pleural effusions. 6. Additional findings as above. -- pain recurring today Lipase remains in the 500's -- MRCP: noted awaiting MRI abdomen -- GI on board awaiting further recommendations Transaminitis: - likely alcohol induced, related to pancreatitis - Tra increasing AST/ALT improving improving Supratherapeutic INR: -INR elevated to 10 on admisison -Likely exacerbated by etoh use -Given 2.5mg Vit K in the ED -No active bleeding - INR 1.0 resume coumadin, now that Plt has improved to 95k usual regimen at home 5mg // and 2.5 other days for now, will give 2.5mg po daily will need to sign out to [facility] upon patient's discharge monitor INR and thrombocytopenia Thrombocytopenia - HIT ab negative - from underlying pancreatitis, bone marrow suppression? alcoholism? - no signs of active bleeding - Plt improved from 70 to 90k (admitted with plt 195k) - resumed coumadin, aspirin, plavix - monitor Chest pain: -Reproducible CP, likely from pancreatitis -CXR and EKG wnl -Initial troponin negative -Echo: Sep 2016 normal LV size and function. EF: 60-65% -- resolved H/o alcohol abuse: -3-4 drinks most days x 40 years -Counselled on importance of cessation -Not interested in rehab - Says she is motivated to quit -- no overt signs of withdrawal -- Alcohol Withdrawal Protocol Gabapentin taper -- stable Hyponatremia: -Na of 125--> 135 Paroxysmal A Fib: -Currently in NSR - on Metoprolol - management of coumadin as noted above HTN: -Cont amlodipine, lopressor HLD: - hold statin Peripheral neuropathy s/p left BKA: -- PVD (s/p bilateral femoral endarterectomy in Sep 2016) -- resume ASA and Plavix (held for thrombocytopenia) -- on Roxicodone -- discussed with Dr. Gan, recommend Lidoderm patch, outpatient ff up DVT Ppx SCDs, teds coumadin add heparin sc if INR <2 and plt level stable Code status: FULL PCP: [facility] Dispo: pending anticipate d/c home when medically stable Current Inpatient Medications: Current Inpatient Medications Medications (Trade) Dose Ordered Sig/Rosa Route Start Time Stop Time Status Last Admin Dose Admin Ondansetron HCl (Zofran Inj) 4 mg Q6H PRN IV 11/04/17 11:45 12/04/17 11:44 Polyethylene (Miralax Powder Packet) 17 gm DAILY PRN PO 11/04/17 12:00 12/04/17 11:59 Thiamine HCl (Vitamin B-1 Tab) 100 mg QAM PO 11/04/17 15:00 12/04/17 14:59 11/08/17 09:21 100 MG Amiodarone HCl (Cordarone Tab) 200 mg DAILY PO 11/05/17 09:00 12/05/17 08:59 11/08/17 09:21 200 MG Amlodipine Besylate (Norvasc Tab) 10 mg DAILY PO 11/05/17 09:00 12/05/17 08:59 11/08/17 09:22 10 MG Atorvastatin Calcium (Lipitor Tab) 80 mg HS PO 11/04/17 21:00 12/04/17 20:59 Future Hold Fluoxetine HCl (Prozac Cap) 20 mg DAILY PO 11/05/17 09:00 12/05/17 08:59 Future Hold Metoprolol Tartrate (Lopressor Tab) 25 mg BID PO 11/04/17 21:00 12/04/17 20:59 11/08/17 21:52 25 MG Pregabalin (Lyrica Cap) 75 mg BID PO 11/04/17 21:00 12/04/17 20:59 Future Hold Ranitidine HCl (zANTac TAB) 300 mg HS PO 11/04/17 21:00 12/04/17 20:59 11/08/17 21:45 300 MG Metoprolol Tartrate (Lopressor Iv) 5 mg Q6 PRN IV 11/04/17 18:00 12/04/17 14:59 Docusate Sodium (coLACE CAP) 100 mg BID PRN PO 11/05/17 09:00 12/04/17 20:59 Oxycodone HCl (Roxicodone Immediate Rel Tab) 5 mg Q6H PRN PO 11/05/17 09:00 11/19/17 08:59 11/08/17 21:46 5 MG Hydromorphone HCl (Dilaudid Inj) 0.5 mg Q6H PRN IV 11/05/17 10:30 11/19/17 10:29 11/09/17 10:03 0.5 MG Lidocaine (Lidoderm Patch 5%) 1 patch QAM TD 11/07/17 09:00 12/07/17 08:59 11/09/17 09:59 1 PATCH Miscellaneous (Remove Lidoderm Patch) 1 ea DAILY@21 N/A 11/06/17 21:00 12/06/17 20:59 11/08/17 21:46 1 EA Pantoprazole Sodium (Protonix Tab) 40 mg QAM PO 11/07/17 09:00 11/11/17 08:59 11/08/17 09:21 40 MG Nicotine (Nicoderm Cq 14MG Patch) 1 patch QAM TD 11/08/17 09:00 12/08/17 08:59 11/09/17 10:00 1 PATCH Miscellaneous (Remove Nicoderm Patch) 1 ea HS N/A 11/07/17 21:00 12/07/17 20:59 Lorazepam (Ativan Tab) 0.5 mg Q4H PRN PO 11/08/17 09:45 12/08/17 09:44 11/08/17 21:46 0.5 MG
--- NOTE | 2017-11-09 14:33 | DIAGNOSTIC IMAGING REPORT ---
ABDOMINAL MRI WITH AND WITHOUT INTRAVENOUS CONTRAST HISTORY: Acute pancreatitis. r/o pancreatic divisum TECHNIQUE: Multiplanar multisequence MRI of the abdomen was performed both before and after the intravenous administration of 6 cc of Gadavist. COMPARISON STUDY: Abdomen and pelvis CT 11/04/2017. FINDINGS: The liver, spleen, and right adrenal gland are unremarkable. There is a 3 mm cyst within the right kidney. Mild left perinephric edema which has improved. The gallbladder demonstrates small cystic spaces at the fundus consistent with adenomyomatosis. No gallstones identified. Common bile duct is not dilated. No significant retroperitoneal lymphadenopathy. Left retroaortic renal vein. There is a 5 mm cyst within the lower pole of the left kidney. There are 2 left adrenal gland nodules measuring 2.2 and 1.8 cm. This demonstrate partial suppression on the out of phase imaging and therefore likely represent benign adenomas. The visualized loops of bowel show no wall thickening or obstruction. Peripancreatic edema and inflammatory change primarily involving the pancreatic tail has improved. There is also a mildly thickened and edematous pancreatic tail. However, the pancreas enhances normally. There are no pancreatic masses identified. The pancreatic duct is suboptimally evaluated due to motion artifact but appears to be normal in course and caliber. No evidence for pancreas divisum. IMPRESSION: 1. Improving acute pancreatitis primarily involving the pancreatic tail. 2. No pancreatic masses identified. 3. The pancreatic duct appears to be normal in course and caliber. No evidence for pancreas divisum. 4. Additional findings as described above. Electronically signed by: Manan Colmenares M.D. 11/09/2017 2:32 PM Dictated Date/Time: 11/09/2017 2:18 PM
[2017-11-09] MEDS: LORAZEPAM 0.5 MG TAB PO PRN ×2 (14:42→20:21)
[2017-11-09 16:05] VITALS: BP 111/69; PULSE 70; TEMP 36.6; O2SAT 98
[2017-11-09] MEDS: AMIODARONE 200 MG TAB PO SCH (16:09)
[2017-11-09] MEDS: AMLODIPINE BESYLATE 5 MG TAB PO SCH (16:10)
[2017-11-09] MEDS: PANTOprazole SOD 40 MG TAB PO SCH (16:10)
[2017-11-09] MEDS: THIAMINE HCL 100 MG TAB PO SCH (16:10)
[2017-11-09] MEDS: WARFARIN SOD 2.5 MG TAB PO SCH (16:11)
[2017-11-09] MEDS: OXYCODONE HCL IR 5 MG TAB (IMMEDIATE RELEASE) PO PRN ×2 (16:14→22:18)
[2017-11-09 20:16] VITALS: BP 103/66; PULSE 65
[2017-11-09] MEDS: RANITIDINE HCL 150 MG TAB PO SCH (20:19)
[2017-11-09 23:07] VITALS: BP 142/90; PULSE 62; TEMP 36.4; O2SAT 97
[2017-11-09 23:30] VITALS: O2SAT 97
[2017-11-10] MEDS: LORAZEPAM 0.5 MG TAB PO PRN ×3 (00:30→15:48)
[2017-11-10] MEDS: OXYCODONE HCL IR 5 MG TAB (IMMEDIATE RELEASE) PO PRN ×2 (04:59→14:00)
[2017-11-10 07:45] VITALS: BP 106/68; PULSE 63; TEMP 36.3; O2SAT 97
[2017-11-10 08:21] VITALS: BP 106/68; PULSE 63; TEMP 36.3; O2SAT 97
[2017-11-10] MEDS ORDERED: CLOPIDOGREL BISULFATE 75 MG TAB PO SCH (09:00)
[2017-11-10] MEDS ORDERED: ASPIRIN 81 MG ECTAB PO SCH (09:00)
[2017-11-10] MEDS: HYDROmorphone INJ 1 MG/ML SYR IV PRN (09:04)
[2017-11-10] MEDS: LIDODERM (LIDOCAINE) PATCH 5% TD SCH (09:05)
[2017-11-10] MEDS: NICOTINE 14 MG/24 HR TDSY TD SCH (09:05)
[2017-11-10] MEDS: AMIODARONE 200 MG TAB PO SCH (09:06)
[2017-11-10] MEDS: METOPROLOL TARTRATE 25 MG TAB PO SCH (09:06)
[2017-11-10 09:32] LABS: BASO % 0.3 %; BASO ABS # 0.02 K/uL (0-0.2); EOS % 2.6 %; EOS ABS # 0.17 K/uL (0-0.5); HEMATOCRIT 32.4 % (37-47); HEMOGLOBIN 10.9 g/dL (12.0-16.0); IG# 0.05 K/uL (0.00-0.02); LYMPH % 24.1 %; LYMPH ABS # 1.56 K/uL (1.2-3.4); MEAN CELL VOLUME 94.5 fL (80-100); MEAN CORPUSCULAR HEMOGLOBIN 31.8 pg (25-34); MEAN CORPUSCULAR HGB CONC 33.6 g/dl (32-36); MEAN PLATELET VOLUME 10.7 fL (7.4-10.4); MONO % 16.8 %; MONO ABS # 1.09 K/uL (0.11-0.59); NEUT % 55.4 %; NEUT ABS # 3.59 K/uL (1.4-6.5); PLATELET COUNT 153 K/uL (130-400); RED CELL DISTRIBUTION WIDTH CV 20.1 % (11.5-14.5); RED CELL DISTRIBUTION WIDTH SD 69.5 fL (36.4-46.3); WHITE BLOOD COUNT 6.48 K/uL (4.8-10.8)
[2017-11-10 09:36] LABS: CALCIUM 8.4 mg/dl (8.5-10.1); CREATININE 0.51 mg/dl (0.60-1.20); POTASSIUM 3.5 mmol/L (3.5-5.1)
--- NOTE | 2017-11-10 09:36 | Gastroenterology Progress Note ---
Progress Note Date of Service: Nov 10, 2017 Subjective Pt evaluation today including: conversation w/ patient, physical exam, chart review, lab review Pt was seen and evaluated, chart reviewed. MRCP without evidence of divisum. Yesterday diet was advanced, noted increasing epigastric pain so diet was dropped back down to liquids. This AM when I ask her how she is feeling, she tells me "terrible" but is request an advancement in her diet. She does continue to have mild upper abdominal pain, worse with PO intake. Mild nausea, vomiting. She notes continued limb pain at site of amputation. She is asking me for pain medication and ativan. No fever, chills, CP, SOB MRCP:Smooth tapering within the mid common bile duct likely due to the edematous pancreatic head. No filling defects within the common bile duct to suggest a stone. Acute pancreatitis which has improved.No definite evidence for pancreas divisum. Gallbladder adenomyomatosis. Review of Systems Constitutional: No fever, No chills, No weight loss, No weakness ENT: No hearing loss Respiratory: No cough, No sputum, No shortness of breath Cardiac: No chest pain, No orthopnea, No edema Abdomen: + pain, + nausea, No vomiting, No diarrhea, No constipation, No GI bleeding, No dysphagia, No odynophagia Female : No dysuria, No hematuria Neuro: No memory loss Endo: No fatigue Skin: No rash Medications Current Inpatient Medications Medications (Trade) Dose Ordered Sig/Rosa Route Start Time Stop Time Status Last Admin Dose Admin Ondansetron HCl (Zofran Inj) 4 mg Q6H PRN IV 11/04/17 11:45 12/04/17 11:44 11/09/17 16:16 4 MG Polyethylene (Miralax Powder Packet) 17 gm DAILY PRN PO 11/04/17 12:00 12/04/17 11:59 Thiamine HCl (Vitamin B-1 Tab) 100 mg QAM PO 11/04/17 15:00 12/04/17 14:59 11/09/17 16:10 100 MG Amiodarone HCl (Cordarone Tab) 200 mg DAILY PO 11/05/17 09:00 12/05/17 08:59 11/10/17 09:06 200 MG Amlodipine Besylate (Norvasc Tab) 10 mg DAILY PO 11/05/17 09:00 12/05/17 08:59 11/09/17 16:10 10 MG Atorvastatin Calcium (Lipitor Tab) 80 mg HS PO 11/04/17 21:00 12/04/17 20:59 Future Hold Fluoxetine HCl (Prozac Cap) 20 mg DAILY PO 11/05/17 09:00 12/05/17 08:59 Future Hold Metoprolol Tartrate (Lopressor Tab) 25 mg BID PO 11/04/17 21:00 12/04/17 20:59 11/10/17 09:06 25 MG Pregabalin (Lyrica Cap) 75 mg BID PO 11/04/17 21:00 12/04/17 20:59 Future Hold Ranitidine HCl (zANTac TAB) 300 mg HS PO 11/04/17 21:00 12/04/17 20:59 11/09/17 20:19 300 MG Metoprolol Tartrate (Lopressor Iv) 5 mg Q6 PRN IV 11/04/17 18:00 12/04/17 14:59 Docusate Sodium (coLACE CAP) 100 mg BID PRN PO 11/05/17 09:00 12/04/17 20:59 Oxycodone HCl (Roxicodone Immediate Rel Tab) 5 mg Q6H PRN PO 11/05/17 09:00 11/19/17 08:59 11/10/17 04:59 5 MG Hydromorphone HCl (Dilaudid Inj) 0.5 mg Q6H PRN IV 11/05/17 10:30 11/19/17 10:29 11/10/17 09:04 0.5 MG Lidocaine (Lidoderm Patch 5%) 1 patch QAM TD 11/07/17 09:00 12/07/17 08:59 11/10/17 09:05 1 PATCH Miscellaneous (Remove Lidoderm Patch) 1 ea DAILY@21 N/A 11/06/17 21:00 12/06/17 20:59 11/09/17 20:18 1 EA Pantoprazole Sodium (Protonix Tab) 40 mg QAM PO 11/07/17 09:00 11/11/17 08:59 11/09/17 16:10 40 MG Nicotine (Nicoderm Cq 14MG Patch) 1 patch QAM TD 11/08/17 09:00 12/08/17 08:59 11/10/17 09:05 1 PATCH Miscellaneous (Remove Nicoderm Patch) 1 ea HS N/A 11/07/17 21:00 12/07/17 20:59 11/09/17 20:18 1 EA Lorazepam (Ativan Tab) 0.5 mg Q4H PRN PO 11/08/17 09:45 12/08/17 09:44 11/10/17 09:04 0.5 MG Warfarin Sodium (Coumadin Tab) 2.5 mg DAILY@1600 PO 11/09/17 16:00 12/09/17 15:59 11/09/17 16:11 2.5 MG Aspirin (Ecotrin Tab) 81 mg QAM PO 11/10/17 09:00 12/10/17 08:59 11/10/17 09:06 81 MG Clopidogrel Bisulfate (plAVix TAB) 75 mg QAM PO 11/10/17 09:00 12/10/17 08:59 11/10/17 09:05 75 MG Objective Vital Signs Date Time Temp Pulse Resp B/P (MAP) Pulse Ox O2 Delivery O2 Flow Rate FiO2 11/10/17 09:04 Room Air 11/10/17 07:54 Room Air 11/10/17 07:45 36.3 63 14 106/68 (81) 97 Room Air 11/09/17 23:30 97 Room Air 11/09/17 23:07 36.4 62 17 142/90 (107) 97 Room Air 11/09/17 20:16 65 103/66 (78) 11/09/17 16:05 36.6 70 18 111/69 (83) 98 Room Air 11/09/17 16:00 Room Air Physical Exam General Appearance: no apparent distress (pt was sitting upright in bed eating breakfast) Eyes: PERRL Neck: supple, no adenopathy Respiratory/Chest: lungs clear, normal breath sounds, no respiratory distress, no accessory muscle use Cardiovascular: regular rate, rhythm, no gallop, no JVD, no murmur Abdomen: normal bowel sounds, soft, no organomegaly, no pulsatile mass, + tenderness (mild upper abd tenderness w palpation) Extremities: + pertinent finding (s/p amputation w/ residual pain) Neurologic/Psych: alert, normal mood/affect, oriented x 3 Skin: normal color, no jaundice Laboratory Results Last 24 Hours Test 11/10/17 08:47 Prothrombin Time 10.1 SECONDS Prothromb Time International Ratio 1.0 Assessment and Plan 57 yr old female with acute pancreatitis, likely alcoholic. MRCP ruled out pancreatic divisum. OP EUS was arranged but pt has difficultly w/ transportation. Diet yesterday was dropped back to liquids due to worsening abdominal pain, today, abdominal pain is present but slightly improved. She notes residual limb pain at site of her amputation GI ok to advance to low fat, pt prefers soft diet Complete ETOH abstinence Smoking cessation Limit Narcotic use, provide adequate analgesia anti-emetics PRN GI to sign off. Please call with any acute changes, questions or concerns. No GI contraindication to discharge. Discussed dietary recommendations, ETOH cessation and tobacco cessation in detail w/ Anisha. She verbalized understanding. Wishes to go home. I have seen , examined and agree with the plan as outlined by EMMY Quach as above. -exam reveals soft abd -no pain today -ok for D/C
[2017-11-10] MEDS: THIAMINE HCL 100 MG TAB PO SCH (10:03)
[2017-11-10] MEDS: PANTOprazole SOD 40 MG TAB PO SCH (10:03)
[2017-11-10] MEDS: AMLODIPINE BESYLATE 5 MG TAB PO SCH (10:03)
[2017-11-10 15:18] VITALS: BP 93/65; PULSE 55; TEMP 36.9; O2SAT 96
[2017-11-10] MEDS: WARFARIN SOD 2.5 MG TAB PO SCH (15:48)
--- NOTE | 2017-11-10 16:18 | Progress Note ---
Internal Med Progress Note Date of Service: Nov 10, 2017. Provider Documentation: SUBJECTIVE: Seen and examined at bedside States feeling much better today Tolerated diet Eager to get discharged Denies chest pain, SOB Family at bedside Abd pain much improved OBJECTIVE: Vital Signs-as noted below Physical Exam: General Appearance:Moderately built and nourished, no apparent distress Head: normocephalic, Atraumatic Eyes: normal inspection, EOMI, PERRL Neck: supple, Trachea midline Respiratory/Chest: Normal breath sounds, CTA Cardiovascular: S1, S2, No murmur Abdomen/GI:Soft, Non tender, Bowel sounds present Extremities/Musculoskelatal:normal inspection, Left BKA Neurologic/Psych:AAOX3, grossly no focal neurological deficits Skin: normal color, warm Lab data as noted below. ASSESSMENT & PLAN: Patient is a 57 yr female with PMH of recent acute pancreatitis, h/o etoh abuse , paroxysmal A Fib (on coumadin), HTN, tobacco use disorder, PVD (s/p bilateral femoral endarterectomy in Sep 2016) and s/p Left BKA who presents with abdominal pain. Acute pancreatitis: H/o alcohol abuse, recent pancreatitis last month Lipase of 3500, leukocytosis of 14.65 Alcohol level of 16 CT abdomen: 1. Findings of acute pancreatitis are similar in appearance to the 10/14/2017 examination noting differences in technique. 2. The pancreas enhances homogeneously. No organized peripancreatic fluid collection is identified. The splenic vein is patent. 3. Hepatomegaly and hepatic steatosis. 4. There is a small volume of abdominopelvic ascites. 5. Trace pleural effusions. 6. Additional findings as above. pain much improved MRCP and abdominal MRI:. Improving acute pancreatitis Appreciate GI Input Counselled to quit drinking alcohol Transaminitis: likely alcohol induced, related to pancreatitis LFTs improving Supratherapeutic INR: INR elevated to 10 on admisison Likely exacerbated by Alcohol use Given 2.5mg Vit K in the ED No active bleeding INR 1.0 resume coumadin Follow up with Coumadin Clinic regularly Thrombocytopenia HIT ab negative from underlying pancreatitis, bone marrow suppression? alcoholism? no signs of active bleeding Platelets normalized monitor Chest pain: Reproducible CP, likely from pancreatitis CXR and EKG wnl troponin negative Echo: Sep 2016 normal LV size and function. EF: 60-65% resolved H/o alcohol abuse: 3-4 drinks most days x 40 years Counselled on importance of cessation Not interested in rehab No overt signs of withdrawal Stable Hyponatremia: Near normal Paroxysmal A Fib: Currently in NSR on Metoprolol On coumadin HTN: Continue amlodipine, lopressor HLD: Resume statin Peripheral neuropathy s/p left BKA: PVD (s/p bilateral femoral endarterectomy in Sep 2016) Continue ASA and Plavix on Roxicodone at home Discussed with Dr. Gan, recommend Lidoderm patch, outpatient ff up DVT Px coumadin Code status: FULL PCP: [place] Disposition: Plan to discharge home today Follow up with PCP on Nov 12, 2017 at 12:45pm Follow up with your customer consulting manager in 2-4 weeks Follow up with Dr. Gan in 2 weeks as advised Follow up with Coumadin clinic for Coumadin dosing Seek immediate medical attention if your symptoms reoccur or worsen Vital Signs: Date Time Temp Pulse Resp B/P (MAP) Pulse Ox O2 Delivery O2 Flow Rate FiO2 11/10/17 15:18 36.9 55 16 93/65 (74) 96 Room Air 11/10/17 09:04 Room Air 11/10/17 07:54 Room Air 11/10/17 07:45 36.3 63 14 106/68 (81) 97 Room Air 11/09/17 23:30 97 Room Air 11/09/17 23:07 36.4 62 17 142/90 (107) 97 Room Air 11/09/17 20:16 65 103/66 (78) Lab Results: Results Past 24 Hours Test 11/10/17 08:47 Range/Units White Blood Count 6.48 4.8-10.8 K/uL Red Blood Count 3.43 4.2-5.4 M/uL Hemoglobin 10.9 12.0-16.0 g/dL Hematocrit 32.4 37-47 % Mean Corpuscular Volume 94.5 80-100 fL Mean Corpuscular Hemoglobin 31.8 25-34 pg Mean Corpuscular Hemoglobin Concent 33.6 32-36 g/dl Platelet Count 153 130-400 K/uL Mean Platelet Volume 10.7 7.4-10.4 fL Neutrophils (%) (Auto) 55.4 % Lymphocytes (%) (Auto) 24.1 % Monocytes (%) (Auto) 16.8 % Eosinophils (%) (Auto) 2.6 % Basophils (%) (Auto) 0.3 % Neutrophils # (Auto) 3.59 1.4-6.5 K/uL Lymphocytes # (Auto) 1.56 1.2-3.4 K/uL Monocytes # (Auto) 1.09 0.11-0.59 K/uL Eosinophils # (Auto) 0.17 0-0.5 K/uL Basophils # (Auto) 0.02 0-0.2 K/uL RDW Standard Deviation 69.5 36.4-46.3 fL RDW Coefficient of Variation 20.1 11.5-14.5 % Immature Granulocyte % (Auto) 0.8 % Immature Granulocyte # (Auto) 0.05 0.00-0.02 K/uL Platelet Estimate NORMAL Large Platelets 2+ Anisocytosis PRESENT Prothrombin Time 10.1 9.0-12.0 SECONDS Prothromb Time International Ratio 1.0 0.9-1.1 Sodium Level 135 136-145 mmol/L Potassium Level 3.5 3.5-5.1 mmol/L Chloride Level 103 98-107 mmol/L Carbon Dioxide Level 23 21-32 mmol/L Anion Gap 9.0 3-11 mmol/L Blood Urea Nitrogen 5 7-18 mg/dl Creatinine 0.51 0.60-1.20 mg/dl Est Creatinine Clear Calc Drug Dose 100.6 ml/min Estimated GFR () 123.7 Estimated GFR (Non- 106.7 BUN/Creatinine Ratio 10.6 10-20 Random Glucose 103 70-99 mg/dl Calcium Level 8.4 8.5-10.1 mg/dl
[2017-11-10] MEDS ORDERED: THM100 PO (16:20)
[2017-11-10] MEDS ORDERED: LDDP5 TD (16:20)
--- NOTE | 2017-11-10 16:22 | Discharge Summary ---
Discharge Summary Date of Service Nov 10, 2017. Discharge Summary Admission Date: Nov 04, 2017 at 11:44 Discharge Date: Nov 10, 2017 Discharge Disposition: Home Principal Diagnosis: Acute Pancreatitis, Supratherapeutic INR Procedures: CT ABD: 1. Findings of acute pancreatitis are similar in appearance to the 10/14/2017 examination noting differences in technique. 2. The pancreas enhances homogeneously. No organized peripancreatic fluid collection is identified. The splenic vein is patent. 3. Hepatomegaly and hepatic steatosis. 4. There is a small volume of abdominopelvic ascites. 5. Trace pleural effusions. 6. Additional findings as above. MRCP: 1. Smooth tapering within the mid common bile duct likely due to the edematous pancreatic head. No filling defects within the common bile duct to suggest a stone. 2. Acute pancreatitis which has improved. 3. No definite evidence for pancreas divisum. 4. Gallbladder adenomyomatosis. Abdominal MRI: 1. Improving acute pancreatitis primarily involving the pancreatic tail. 2. No pancreatic masses identified. 3. The pancreatic duct appears to be normal in course and caliber. No evidence for pancreas divisum. 4. Additional findings as described above. Consultations: GI Pending Studies/Follow-Up: Follow up with PCP on Nov 12, 2017 at 12:45pm Follow up with your platform inspector in 2-4 weeks Follow up with Dr. Gan in 2 weeks as advised Follow up with Coumadin clinic for Coumadin dosing Seek immediate medical attention if your symptoms reoccur or worsen Medication Reconciliation New Medications: Lidocaine (Lidocaine) 1 Patch Tdsy 1 PATCH TD QAM for 14 Days, #14 EA Thiamine HCl (Vitamin B-1) 100 Mg Tab 100 MG PO QAM for 10 Days, #10 TAB Continued Medications: Amiodarone Hcl (Cordarone) 200 Mg Tab 200 MG PO DAILY, TAB Amlodipine (Norvasc) 10 Mg Tab 10 MG PO DAILY, TAB Aspirin (Aspirin Ec) 81 Mg Tab 81 MG PO DAILY Atorvastatin (Lipitor) 80 Mg Tab 80 MG PO HS, TAB Clopidogrel (Plavix) 75 Mg Tab 75 MG PO DAILY, TAB Docusate Sodium (Docusate Sodium) 100 Mg Cap 100 MG PO BID PRN for Constipation for 10 Days, #20 CAP Fluoxetine (Prozac) 20 Mg Cap 20 MG PO DAILY, CAP Metoprolol Tartrate (Lopressor) (Lopressor) 25 Mg Tab 25 MG PO BID, TAB Ondansetron Odt (Zofran Odt) 8 Mg Soltab 8 MG SL Q8 PRN for Nausea, TAB Oxycodone Ir (Roxicodone Ir) 5 Mg Tab 1-2 TAB PO Q6H PRN for Pain for 3 Days, #10 TAB hold for lethargy or drowsiness Pantoprazole (Protonix) 40 Mg Tab 40 MG PO DAILY, TAB Pregabalin (Lyrica) 75 Mg Cap 75 MG PO BID, CAP Promethazine Hcl (Phenergan Suppository) 25 Mg Supp 25 MG [place] Q6H PRN for Nausea, SUPP Ranitidine (Zantac) 300 Mg Tab 300 MG PO HS, TAB Warfarin Sod (Jantoven) 5 Mg Tab 5 MG PO TuThSa, TAB as per coumadin clinic instruction Warfarin Sod (Coumadin) 2.5 Mg Tab 2.5 MG PO SuMoWeFr, TAB 3 Refills as per coumadin clinic instruction Admission Information HPI (per Admitting provider): This is a 57yo F with a PMH of recent acute pancreatitis, h/o etoh abuse, paroxysmal A Fib (on coumadin), HTN, tobacco use disorder, PVD (s/p bilateral femoral endarterectomy in Sep 2016) and s/p Left BKA who presents with abdominal pain since yesterday. Describes pain as 10/10 constant sharp, throbbing midepigastrium pain with radiation to left chest. Associated symptoms include headache, lightheadedness, persistent nausea and vomiting of bilious fluid with her last episode occurring this AM. Has been unable to tolerate PO intake since yesterday. Was admitted in September with acute pancreatitis 2/2 alcohol use. Was encouraged to stop drinking but has continued to do so, stating that she did not realize how much the alcohol contributes to her abdominal pain. Has a significant history of alcohol use, endorsing 3-4 beers per day most days x 40 years. Last drink was 2 days ago. Has tried a rehab program in the past. States that she is more motivated to stop drinking now that abdominal pain has reoccurred. Denies fever, chills, visual changes, sore throat, cough, palpitations, increased SOB ( has some at baseline), diarrhea or LE swelling. Patient is on coumadin for A fib. Attends coumadin clinic and states that she takes whatever dose they tell her. Says that it is constantly changing and therefore she is unsure what dose she is currently taking. INR was supratherapeutic at 10 today. Has a small bruise on her R hip but otherwise denies any new bruising, bleeding, etc. Physical Exam (per Admitting): General Appearance: WD/WN, no apparent distress, + pertinent finding ( appears older than stated age) Head: normocephalic, atraumatic Eyes: normal inspection, PERRL, sclerae normal ENT: normal ENT inspection, hearing grossly normal, pharynx normal Neck: supple, thyroid normal, trachea midline Respiratory/Chest: lungs clear, normal breath sounds, no respiratory distress, no accessory muscle use, + pertinent finding (Chest pain reproducible on left side ) Cardiovascular: regular rate, rhythm, no murmur, normal peripheral pulses Abdomen/GI: soft, no organomegaly, + tenderness (Epigastric pain without guarding. Some diffuse tenderness) Back: normal inspection Extremities/Musculoskelatal: normal inspection, no calf tenderness, no pedal edema, + pertinent finding (S/p L BKA ) Neurologic/Psych: no motor/sensory deficits, alert, normal mood/affect, oriented x 3 Skin: normal color, warm/dry Hospital Course Patient is a 57 yr female with PMH of recent acute pancreatitis, h/o etoh abuse , paroxysmal A Fib (on coumadin), HTN, tobacco use disorder, PVD (s/p bilateral femoral endarterectomy in Sep 2016) and s/p Left BKA who presents with abdominal pain. Acute pancreatitis: H/o alcohol abuse, recent pancreatitis last month Lipase of 3500, leukocytosis of 14.65 Alcohol level of 16 CT abdomen: 1. Findings of acute pancreatitis are similar in appearance to the 10/14/2017 examination noting differences in technique. 2. The pancreas enhances homogeneously. No organized peripancreatic fluid collection is identified. The splenic vein is patent. 3. Hepatomegaly and hepatic steatosis. 4. There is a small volume of abdominopelvic ascites. 5. Trace pleural effusions. 6. Additional findings as above. pain much improved MRCP and abdominal MRI:. Improving acute pancreatitis Appreciate GI Input Counselled to quit drinking alcohol Transaminitis: likely alcohol induced, related to pancreatitis LFTs improving Supratherapeutic INR: INR elevated to 10 on admisison Likely exacerbated by Alcohol use Given 2.5mg Vit K in the ED No active bleeding INR 1.0 resume coumadin Follow up with Coumadin Clinic regularly Thrombocytopenia HIT ab negative from underlying pancreatitis, bone marrow suppression? alcoholism? no signs of active bleeding Platelets normalized monitor Chest pain: Reproducible CP, likely from pancreatitis CXR and EKG wnl troponin negative Echo: Sep 2016 normal LV size and function. EF: 60-65% resolved H/o alcohol abuse: 3-4 drinks most days x 40 years Counselled on importance of cessation Not interested in rehab No overt signs of withdrawal Stable Hyponatremia: Near normal Paroxysmal A Fib: Currently in NSR on Metoprolol On coumadin HTN: Continue amlodipine, lopressor HLD: Resume statin Peripheral neuropathy s/p left BKA: PVD (s/p bilateral femoral endarterectomy in Sep 2016) Continue ASA and Plavix on Roxicodone at home Discussed with Dr. Gan, recommend Lidoderm patch, outpatient ff up DVT Px coumadin Code status: FULL PCP: [place] Disposition: Plan to discharge home today Follow up with PCP on Nov 12, 2017 at 12:45pm Follow up with your platform inspector in 2-4 weeks Follow up with Dr. Gan in 2 weeks as advised Follow up with Coumadin clinic for Coumadin dosing Seek immediate medical attention if your symptoms reoccur or worsen Total time spent on discharge = 34 minutes This includes examination of the patient, discharge planning, medication reconciliation, and communication with other providers. Discharge Instructions Discharge Instructions Date of Service Nov 10, 2017. Admission Reason for Admission: Acute Pancreatitis, Supratherapeutic Inr Discharge Discharge Diagnosis / Problem: Acute Pancreatitis, Supratherapeutic INR Discharge Goals Goal(s): Decrease discomfort, Improve function Activity Recommendations Activity Limitations: resume your previous activity Exercise/Sports Limitations: as tolerated . Instructions / Follow-Up Instructions / Follow-Up Follow up with PCP on Nov 12, 2017 at 12:45pm Follow up with your platform inspector in 2-4 weeks Follow up with Dr. Gan in 2 weeks as advised Follow up with Coumadin clinic for Coumadin dosing Seek immediate medical attention if your symptoms reoccur or worsen Current Hospital Diet Patient's current hospital diet: Low Fat Diet Discharge Diet Recommended Diet: Low Fat Diet Pending Studies Studies pending at discharge: no Laboratory Results Lipid Panel Test 10/15/17 06:44 Range/Units Triglycerides Level 99 0-150 mg/dl Cholesterol Level 86 0-200 mg/dl HDL Cholesterol 41 mg/dl Cholesterol/HDL Ratio 2.1 LDL Cholesterol, Calculated 25 mg/dl Medical Emergencies . Who to Call and When: Medical Emergencies: If at any time you feel your situation is an emergency, please call 911 immediately. . Non-Emergent Contact Non-Emergency issues call your: Primary Care Provider, It Security Manager Call Non-Emergent contact if: you have a fever, your pain is not controlled, your pain is worsening, your pain is unusual for you, your pain is concerning you, you have any medication questions Seek immediate medical attention if your symptoms reoccur or worsen . . "Provider Documentation" section prepared by Long Piper. . VTE Core Measure Inpt VTE Proph given/why not?: Warfarin (Coumadin), SCD's <Electronically signed by Long Piper MD> Signed: 11/10/17 [id number] Signed: The status of this report is Signed * If report status is Draft, the document has not been finalized by the responsible provider.
[2017-11-10 16:51] VITALS: BP 93/65; PULSE 55; TEMP 36.9; O2SAT 96
== END 2017-11-10 17:18 | disposition home or self-care (01) | DRG 439 ==
LOC: C.EDB 07:58 → C.2T 11:44 → ENRESERV 13:12 → C.MSW 11-08 18:52
PROVIDERS: ADMIT Hospitalist; ATTEND Internal Medicine
DX: K85.20 Alcohol induced acute pancreatitis without necrosis or infection (principal); E87.1 Hypo-osmolality and hyponatremia; K70.10 Alcoholic hepatitis without ascites; F41.9 Anxiety disorder, unspecified; F32.9 Major depressive disorder, single episode, unspecified; E78.5 Hyperlipidemia, unspecified; I10 Essential (primary) hypertension; I48.0 Paroxysmal atrial fibrillation; F10.10 Alcohol abuse, uncomplicated; D69.6 Thrombocytopenia, unspecified; I73.9 Peripheral vascular disease, unspecified; R74.0 Nonspecific elevation of levels of transaminase and lactic acid dehydrogenase [LDH]; G62.9 Polyneuropathy, unspecified; F17.200 Nicotine dependence, unspecified, uncomplicated; Z79.82 Long term (current) use of aspirin; Z89.512 Acquired absence of left leg below knee; Z79.01 Long term (current) use of anticoagulants; Z82.49 Family history of ischemic heart disease and other diseases of the circulatory system; Z80.8 Family history of malignant neoplasm of other organs or systems

== ENCOUNTER → 2017-12-27 | Outpatient (CLI) | payer BC ==
[~2017-12-27] MED LIST changes: +LDDP5 TD; -NRN600 PO; +PREG1CAP28 PO; +THM100 PO
== END | disposition home or self-care (01) ==
LOC: C.RDSM 14:05
PROVIDERS: ATTEND Physical Medicine & Rehabilitation Sports Medicine
DX: Z89.512 Acquired absence of left leg below knee (principal); M79.2 Neuralgia and neuritis, unspecified

== ENCOUNTER → 2018-04-24 | Outpatient (CLI) | payer BC ==
[~2018-04-24] MED LIST changes: -AMLO-114 PO; +AMLO10TA3 PO; +CYAN500T PO; +CYM/30 PO; +DOCU100C31 PO; +DULO60CA44 PO; +OXYC-90 PO; -OXYC1TAB3 PO; +RXC5 PO; +THIA100T27 PO; -THM100 PO; +WARF5TAB90 PO
--- NOTE | 2018-04-24 12:20 | DIAGNOSTIC IMAGING REPORT ---
L KNEE 3 VIEWS CLINICAL HISTORY: LT KNEE, [id number] pain COMPARISON: None. DISCUSSION: Operative changes consistent with a below-knee amputation. Cortical margins appear intact. Vascular stent is present within the distal thigh. There is no acute bony abnormality. There is no evidence for soft tissue swelling. IMPRESSION: Chronic and postoperative change. No acute process. The above report was generated using voice recognition software. It may contain grammatical, syntax or spelling errors. Electronically signed by: Santos Mckenzie M.D. 04/24/2018 12:18 PM Dictated Date/Time: 04/24/2018 12:18 PM
== END | disposition home or self-care (01) ==
LOC: C.RAD 11:49
PROVIDERS: ATTEND Physician Assistant
DX: Z89.512 Acquired absence of left leg below knee (principal)

== ENCOUNTER 2018-04-28 13:34 | Emergency (ER) | payer BC ==
[~2018-04-28] VITALS: Ht 160 cm; Wt 67.0 kg
[~2018-04-28 13:34] MED LIST changes: -ASPI81TA28 PO; -CLOP1TAB15 PO; -CYAN500T PO; -CYM/30 PO; -DOCU100C31 PO; -DULO60CA44 PO; -PANT40TA PO; -RANI300T2 PO; -RXC5 PO; -WARF5TAB90 PO
[2018-04-28 13:42] VITALS: Ht 160 cm; Wt 67.0 kg
[2018-04-28] MEDS ORDERED: SODIUM CHLORIDE 0.9% 1000ML 1,000 ML IV STA (14:22)
[2018-04-28] MEDS ORDERED: ONDANSETRON INJ 2 MG/ML 2 ML VIAL IV STA (14:22)
--- NOTE | 2018-04-28 14:27 | EMERGENCY ROOM VISIT NOTE ---
History Report prepared by Florencia: Melinda Bhatia Under the Supervision of: Dr. Mj Dozier D.O. First contact with patient: 14:18 Chief Complaint: ABNORMAL DIAGNOSTIC TESTING Stated Complaint: ABNORMAL LAB WORK, PHYSICIAN REFERRED History of Present Illness The patient is a 58 year old female who presents to the Emergency Room with complaints of an episode of abnormal lab values beginning today. She notes she had lab work done today, and was referred to the ED for abnormal results. The patient notes constant, worsening diffuse abdominal pain that began yesterday. She denies dark or bloody urine, blood in stool, CP or SOB. The patient notes a history of appendectomy. She reports she takes Coumadin and Plavix. The patient notes a history of colonoscopy, which showed no abnormalities. Source of History: patient Onset: today Quality: other (abnormal lab values) Timing: other (episode) Associated Symptoms: + abdominal pain (constant, worsening, diffuse), No chest pain, No SOB, No melena, No urinary symptoms Review of Systems See HPI for pertinent positives & negatives. A total of 10 systems reviewed and were otherwise negative. Past Medical & Surgical Medical Problems: (1) Anxiety (2) Depression (3) Dyslipidemia (4) History of blood clots (5) HTN (hypertension) (6) Paroxysmal atrial fibrillation (7) PVD (peripheral vascular disease) (8) Supratherapeutic INR Surgical Problems: (1) H/O vascular surgery (2) History of appendectomy (3) Status post below knee amputation of left lower extremity (4) Status post ORIF of fracture of ankle Family History Hypertension FATHER MOTHER Social History Smoking Status: Current Every Day Smoker Alcohol Use: occasionally Drug Use: none Marital Status: Housing Status: lives with family Occupation Status: disabled Current/Historical Medications Scheduled Amiodarone Hcl (Cordarone), 200 MG PO DAILY Amlodipine (Norvasc), 10 MG PO DAILY Aspirin (Aspirin Ec), 81 MG PO DAILY Atorvastatin (Lipitor), 80 MG PO HS Clopidogrel (Plavix), 75 MG PO DAILY Cyanocobalamin (Vitamin B-12), 1,000 MCG PO DAILY Duloxetine Hcl (Cymbalta), 30 MG PO DAILY Duloxetine Hcl (Cymbalta), 60 MG PO DAILY Metoprolol Tartrate (Lopressor) (Lopressor), 25 MG PO BID Pantoprazole (Protonix), 40 MG PO DAILY Ranitidine (Zantac), 300 MG PO HS Warfarin Sodium (Coumadin), 5 MG PO DAILY Scheduled PRN Docusate Sodium (Docusate Sodium), 1 CAP PO BID PRN for Constipation Ondansetron Odt (Zofran Odt), 8 MG SL Q8 PRN for Nausea Oxycodone HCl (Oxycodone HCl), 10 MG PO Q6H PRN for Pain Promethazine Hcl (Phenergan Suppository), 25 MG HI Q6H PRN for Nausea Allergies Coded Allergies: Amoxicillin (Verified Allergy, Severe, LIVER FAILURE, 11/04/17) Clavulanic Acid (Verified Allergy, Severe, LIVER FAILURE, 11/04/17) Adhesives (Verified Allergy, Mild, 11/04/17) Acetaminophen (Verified Allergy, Unknown, LIVER DAMAGE-DUE TO FAILURE, 11/04) Guanfacine (Verified Allergy, Unknown, 11/04/17) Nifedipine (Verified Allergy, Unknown, 11/04/17) Physical Exam Vital Signs Date Time Temp Pulse Resp B/P (MAP) Pulse Ox O2 Delivery O2 Flow Rate FiO2 04/28/18 21:11 80 18 108/76 94 04/28/18 21:06 80 16 108/76 94 Room Air 04/28/18 19:14 36.8 74 18 115/75 94 Room Air 04/28/18 17:36 81 18 131/80 98 Room Air 04/28/18 16:01 78 18 135/75 97 Room Air 04/28/18 13:42 37.0 78 18 140/84 98 Room Air Physical Exam GENERAL: Patient is awake, alert, and in no acute distress. Patient is resting comfortably and showing no signs of anxiety EYES: The conjunctivae are clear. The pupils are round and reactive. EARS, NOSE, MOUTH AND THROAT: The nose is without any evidence of any deformity. Mucous membranes are moist. Tongue is midline NECK: The neck is nontender and supple. RESPIRATORY: Normal respiratory effort is noted. There is no evidence of wheezing rhonchi or rales to auscultation. CARDIOVASCULAR: Regular rate and rhythm noted. There no murmurs rubs or gallops normal S1 normal S2 GASTROINTESTINAL: Abdomen is mildly distended but soft, RUQ tenderness to palpation, no guarding/rigidity appreciated, BACK: No midline tenderness or or step-off noted range of motion in flexion extension as well as rotation no signs of muscle spasm noted. MUSCULOSKELETAL/EXTREMITIES: There is no evidence of gross deformity. Full range of motion is noted in the hips and shoulders. BKA in LLE. SKIN: There is no obvious evidence of any rash. There are no petechiae, pallor or cyanosis noted. NEUROLOGIC: Patient is awake alert and oriented x3. Medical Decision & Procedures ER Provider Diagnostic Interpretation: Radiology results as stated below per my review and radiologist interpretation: ULTRASOUND RIGHT UPPER QUADRANT ABDOMEN CLINICAL HISTORY: Abnormal liver function studies. COMPARISON STUDY: Abdominal CT dated 11/04/2017. TECHNIQUE: Real-time, grayscale, and color flow sonography of the right upper quadrant of the abdomen was performed. Images are reviewed in the transverse and longitudinal planes. FINDINGS: Liver: The liver is mildly enlarged and demonstrates heterogeneously increased echotexture indicating hepatic steatosis. There is no intrahepatic biliary ductal dilatation. The main portal vein is patent. Gallbladder: The gallbladder is normal in appearance. No gallstones are identified. There is no gallbladder wall thickening or pericholecystic fluid. A sonographic Duncan's sign is reportedly absent. The common bile duct measures up to 0.4 cm in diameter. Pancreas: Visualized portions of the pancreatic head are normal in appearance. The majority of the pancreas was not well visualized. Right kidney: Survey images of the right kidney demonstrate normal size and echotexture. There is no hydronephrosis. Ascites: None. IMPRESSION: 1. Hepatomegaly and hepatic steatosis. 2. No gallstones are identified. Electronically signed by: Angus Marte M.D. 04/28/2018 5:36 PM Dictated Date/Time: 04/28/2018 5:35 PM CHEST ONE VIEW PORTABLE HISTORY: 58 years-old Female EVALUATE ALTERED MENTAL STATUS/WEAKNESS acute weakness with altered mental status COMPARISON: Chest radiographs 11/04/2017 TECHNIQUE: Portable AP view of the chest FINDINGS: Calcified granuloma about the right midlung redemonstrated. Cardiac silhouette is within normal limits in size. Calcification of the aorta. No pneumothorax, pleural effusion, focal airspace consolidation or overt pulmonary edema. The bones of the chest appear grossly intact. IMPRESSION: No acute process. The above report was generated using voice recognition software. It may contain grammatical, syntax or spelling errors. Electronically signed by: Hi nAderson M.D. 04/28/2018 3:01 PM Dictated Date/Time: 04/28/2018 3:00 PM KUB HISTORY: Acute generalized abdominal pain abd pain COMPARISON: Chest radiograph of same day, CT abdomen and pelvis 11/04/2017 FINDINGS: Bowel gas pattern appears nonobstructive. High density material within the distribution of the right hemicolon and transverse colon suggests retained oral contrast. Bilateral iliac arterial stents redemonstrated along with peripheral arterial calcifications. Probable left renal vascular calcification. Degenerative changes of the spine, pelvis and hips. No definite urolith. No pneumatosis or pneumoperitoneum. IMPRESSION: 1. Nonobstructive bowel gas pattern. 2. No urolith identified. Electronically signed by: Hi Anderson M.D. 04/28/2018 3:06 PM Dictated Date/Time: 04/28/2018 3:04 PM Laboratory Results 04/28/18 15:31 Red Blood Count 4.47, Mean Corpuscular Volume 84.6, Mean Corpuscular Hemoglobin 29.1, Mean Corpuscular Hemoglobin Concent 34.4, Mean Platelet Volume 10.3, Neutrophils (%) (Auto) 74.6, Lymphocytes (%) (Auto) 16.8, Monocytes (%) (Auto) 5.9, Eosinophils (%) (Auto) 1.9, Basophils (%) (Auto) 0.4, Neutrophils # (Auto) 5.84, Lymphocytes # (Auto) 1.31, Monocytes # (Auto) 0.46, Eosinophils # (Auto) 0.15, Basophils # (Auto) 0.03 04/28/18 15:31 Test 04/28/18 15:31 04/28/18 16:00 04/28/18 18:29 White Blood Count 7.82 K/uL (4.8-10.8) Red Blood Count 4.47 M/uL (4.2-5.4) Hemoglobin 13.0 g/dL (12.0-16.0) Hematocrit 37.8 % (37-47) Mean Corpuscular Volume 84.6 fL (80-100) Mean Corpuscular Hemoglobin 29.1 pg (25-34) Mean Corpuscular Hemoglobin Concent 34.4 g/dl (32-36) Platelet Count 204 K/uL (130-400) Mean Platelet Volume 10.3 fL (7.4-10.4) Neutrophils (%) (Auto) 74.6 % Lymphocytes (%) (Auto) 16.8 % Monocytes (%) (Auto) 5.9 % Eosinophils (%) (Auto) 1.9 % Basophils (%) (Auto) 0.4 % Neutrophils # (Auto) 5.84 K/uL (1.4-6.5) Lymphocytes # (Auto) 1.31 K/uL (1.2-3.4) Monocytes # (Auto) 0.46 K/uL (0.11-0.59) Eosinophils # (Auto) 0.15 K/uL (0-0.5) Basophils # (Auto) 0.03 K/uL (0-0.2) RDW Standard Deviation 50.3 fL (36.4-46.3) RDW Coefficient of Variation 16.3 % (11.5-14.5) Immature Granulocyte % (Auto) 0.4 % Immature Granulocyte # (Auto) 0.03 K/uL (0.00-0.02) Prothrombin Time > 100.0 SECONDS Prothromb Time International Ratio > 10.0 (0.9-1.1) Activated Partial Thromboplast Time 79.0 SECONDS (21.0-31.0) Partial Thromboplastin Ratio 3.0 Anion Gap 8.0 mmol/L (3-11) Est Creatinine Clear Calc Drug Dose 81.7 ml/min Estimated GFR () 111.2 Estimated GFR (Non- 96.0 BUN/Creatinine Ratio 10.1 (10-20) Calcium Level 8.4 mg/dl (8.5-10.1) Magnesium Level 2.0 mg/dl (1.8-2.4) Total Bilirubin 0.4 mg/dl (0.2-1) Direct Bilirubin 0.2 mg/dl (0-0.2) Aspartate Amino Transf (AST/SGOT) > 2002 U/L (15-37) Alanine Aminotransferase (ALT/SGPT) 1185 U/L (12-78) Alkaline Phosphatase 131 U/L (45-117) Troponin I < 0.015 ng/ml (0-0.045) Total Protein 6.9 gm/dl (6.4-8.2) Albumin 3.1 gm/dl (3.4-5.0) Lipase 303 U/L (73-393) Thyroid Stimulating Hormone (TSH) 1.240 uIu/ml (0.300-4.500) Urine Color YELLOW Urine Appearance CLEAR (CLEAR) Urine pH 5.5 (4.5-7.5) Urine Specific Mitchell 1.014 (1.000-1.030) Urine Protein NEG (NEG) Urine Glucose (UA) NEG (NEG) Urine Ketones NEG (NEG) Urine Occult Blood NEG (NEG) Urine Nitrite NEG (NEG) Urine Bilirubin NEG (NEG) Urine Urobilinogen NEG (NEG) Urine Leukocyte Esterase NEG (NEG) Acetaminophen Level < 2 ug/ml (10-30) Laboratory results per my review. Medications Administered Medications (Trade) Dose Ordered Sig/Rosa Route Start Time Stop Time Status Last Admin Dose Admin Ondansetron HCl (Zofran Inj) 4 mg NOW STAT IV 04/28/18 14:22 04/28/18 14:25 DC 04/28/18 16:00 4 MG Sodium Chloride 1,000 ml @ 999 mls/hr Q1H1M STAT IV 04/28/18 14:22 04/28/18 15:22 DC 04/28/18 16:01 999 MLS/HR Hydromorphone HCl (Dilaudid Inj) 1 mg Q30M PRN IV 04/28/18 16:15 04/28/18 21:55 DC 04/28/18 20:48 1 MG Phytonadione (Mephyton Tab) 5 mg NOW STAT PO 04/28/18 17:55 04/28/18 17:56 DC 04/28/18 18:34 5 MG Phytonadione (Mephyton Tab) 5 mg NOW STAT PO 04/28/18 19:01 04/28/18 19:04 DC 04/28/18 19:22 5 MG Oxycodone HCl (Roxicodone Immediate Rel 5MG Home Pack) 1 homepack UD ONCE PO 04/28/18 21:15 04/28/18 21:16 DC 04/28/18 21:12 1 HOMEPACK ECG Per My Interpretation Indication: abdominal pain Rate (beats per minute): 76 Rhythm: normal sinus Findings: no acute ischemic change, no ectopy Comparison ECG Date: 11/04/17 Change: no significant change ED Course 1421: The patient was evaluated in room C2B. A complete history and physical examination were performed. 1422: Ordered NSS 1,000 ml @ 999 mls/hr IV, Zofran Inj 4 mg IV 1430: Ordered Morphine Sulfate Inj 4 mg IV. 1431: I reviewed the lab results from this morning and updated the patient. 1612: I reevaluated and updated the patient. 1615: Ordered Dialudid Inj 1 mg IV. 1714: I discussed the patient's case with Dr. Hughes, [facility] hospitalist. She will assess the patient. 1715: I updated the patient's . 1754: Ordered Mephyton Tab 5 mg PO 1900: Ordered Mephyton Tab 5 mg PO. 1953: I reviewed the case again with Dr. Hughes, [facility] hospitalist. 2004: Upon reevaluation, the patient is resting. I discussed the results and treatment plan with her. She verbalized agreement of the treatment plan. The patient was discharged home. 2114: Ordered Oxycodone HCl 1 homepack PO. Medical Decision Etiologies such as appendicitis, diverticulitis, PUD, biliary pathology, UTI, pancreatitis, obstruction, mesenteric ischemia, aortic pathology, infections, inflammatory bowel disease, renal colic, as well as others were entertained. Nursing notes reviewed. Patient's outpatient laboratory studies were reviewed. The patient is a 58-year-old female who presented to the emergency department for abdominal pain. The patient has a history of chronic abdominal pain. She does have a history of chronic alcohol use and chronic pancreatitis. She is currently switching over physicians and had outpatient laboratory studies by her new primary care physician. When she went to see her doctor she was told to go directly to the emergency department for abnormal liver function studies. The patient did not have any nausea or vomiting. She was found to have very elevated liver function studies as well as a very elevated INR. She denies any recent alcohol use initially however I do feel that she has been drinking alcohol. She also admitted to using Tylenol but knows that she is a limit of 3000 mg per day. I discussed patient's laboratory and radiographic studies with her. I also discussed her case with the on-call [facility] hospitalist group. She was treated with IV fluids IV pain medicine and IV Zofran. She was also given oral vitamin K. The patient was evaluated by the [facility] hospitalist group. They consulted gastroenterology who felt the patient did not require any further inpatient treatment and could be seen as an outpatient. Medication Reconcilliation Current Medication List: was personally reviewed by me Blood Pressure Screening Patient's blood pressure: Normal blood pressure Blood pressure disposition: Did not require urgent referral Consults Time Called: 1702 Consulting Physician: Dr. Hughes [facility] hospitalist Returned Call: 1714 1714: I discussed the patient's case with Dr. Hughes [facility] hospitalist. She will assess the patient. 1953: I reviewed the case again with Dr. Hughes [facility] hospitalist. Impression Primary Impression: Abnormal LFTs Additional Impressions: Elevated INR Abdominal pain Scribe Attestation The scribe's documentation has been prepared under my direction and personally reviewed by me in its entirety. I confirm that the note above accurately reflects all work, treatment, procedures, and medical decision making performed by me. Departure Information Dispostion Home / Self-Care Prescriptions Oxycodone HCl (Oxycodone HCl) 5 Mg Tab 10 MG PO Q6H Y for Pain for 2 Days, #16 TAB Prov: Ирина Hughes MD 04/28/18 Referrals Fabio Tai M.D. (PCP) Forms HOME CARE DOCUMENTATION FORM, IMPORTANT VISIT INFORMATION, WORK / SCHOOL INSTRUCTIONS Patient Instructions My [facility] Additional Instructions Continue all medications as prescribed. Follow-up with your family doctor as soon as possible for reevaluation, recheck of your laboratory studies, a repeat of your Coumadin level as well as a referral to a treasurer. Avoid any further alcoholic beverages. Avoid taking any further Tylenol products. Return to the emergency department if symptoms change worsen or the need arises. Problem Qualifiers Additional Impressions: Abdominal pain Abdominal location: generalized Qualified Codes: R10.84 - Generalized abdominal pain
[2018-04-28] MEDS ORDERED: MoRPHine SULFATE 4 MG/ML 1 ML CARP\\VIAL IV PRN (14:30)
--- NOTE | 2018-04-28 15:02 | DIAGNOSTIC IMAGING REPORT ---
CHEST ONE VIEW PORTABLE HISTORY: 58 years-old Female EVALUATE ALTERED MENTAL STATUS/WEAKNESS acute weakness with altered mental status COMPARISON: Chest radiographs 11/04/2017 TECHNIQUE: Portable AP view of the chest FINDINGS: Calcified granuloma about the right midlung redemonstrated. Cardiac silhouette is within normal limits in size. Calcification of the aorta. No pneumothorax, pleural effusion, focal airspace consolidation or overt pulmonary edema. The bones of the chest appear grossly intact. IMPRESSION: No acute process. The above report was generated using voice recognition software. It may contain grammatical, syntax or spelling errors. Electronically signed by: Hi Anderson M.D. 04/28/2018 3:01 PM Dictated Date/Time: 04/28/2018 3:00 PM
--- NOTE | 2018-04-28 15:07 | DIAGNOSTIC IMAGING REPORT ---
KUB HISTORY: Acute generalized abdominal pain abd pain COMPARISON: Chest radiograph of same day, CT abdomen and pelvis 11/04/2017 FINDINGS: Bowel gas pattern appears nonobstructive. High density material within the distribution of the right hemicolon and transverse colon suggests retained oral contrast. Bilateral iliac arterial stents redemonstrated along with peripheral arterial calcifications. Probable left renal vascular calcification. Degenerative changes of the spine, pelvis and hips. No definite urolith. No pneumatosis or pneumoperitoneum. IMPRESSION: 1. Nonobstructive bowel gas pattern. 2. No urolith identified. Electronically signed by: Hi Anderson M.D. 04/28/2018 3:06 PM Dictated Date/Time: 04/28/2018 3:04 PM
[2018-04-28] MEDS ORDERED: OXYC-90 PO ×2 (15:30→20:00)
[2018-04-28] MEDS ORDERED: CYM/30 PO (15:31)
[2018-04-28] MEDS ORDERED: CYAN500T PO (15:31)
[2018-04-28] MEDS ORDERED: DULO60CA44 PO (15:31)
[2018-04-28 15:47] LABS: BASO % 0.4 %; BASO ABS # 0.03 K/uL (0-0.2); EOS % 1.9 %; EOS ABS # 0.15 K/uL (0-0.5); HEMATOCRIT 37.8 % (37-47); IG# 0.03 K/uL (0.00-0.02); LYMPH % 16.8 %; LYMPH ABS # 1.31 K/uL (1.2-3.4); MEAN CELL VOLUME 84.6 fL (80-100); MEAN CORPUSCULAR HEMOGLOBIN 29.1 pg (25-34); MEAN CORPUSCULAR HGB CONC 34.4 g/dl (32-36); MEAN PLATELET VOLUME 10.3 fL (7.4-10.4); MONO % 5.9 %; MONO ABS # 0.46 K/uL (0.11-0.59); NEUT % 74.6 %; NEUT ABS # 5.84 K/uL (1.4-6.5); PLATELET COUNT 204 K/uL (130-400); RED CELL DISTRIBUTION WIDTH CV 16.3 % (11.5-14.5); RED CELL DISTRIBUTION WIDTH SD 50.3 fL (36.4-46.3); WHITE BLOOD COUNT 7.82 K/uL (4.8-10.8)
[2018-04-28] MEDS ORDERED: WARF5TAB90 PO (15:48)
[2018-04-28] MEDS ORDERED: DOCU100C31 PO (15:51)
[2018-04-28 16:22] LABS: ALBUMIN 3.1 gm/dl (3.4-5.0); ALKALINE PHOSPHATASE 131 U/L (45-117); ALT/SGPT 1185 U/L (12-78); BLOOD UREA NITROGEN 7 mg/dl (7-18); CALCIUM 8.4 mg/dl (8.5-10.1); CARBON DIOXIDE 25 mmol/L (21-32); CREATININE 0.69 mg/dl (0.60-1.20); GLUCOSE 94 mg/dl (70-99); LIPASE 303 U/L (73-393); POTASSIUM 3.6 mmol/L (3.5-5.1); SODIUM 125 mmol/L (136-145); TOTAL PROTEIN 6.9 gm/dl (6.4-8.2)
[2018-04-28] MEDS: HYDROmorphone INJ 1 MG/ML SYR IV PRN ×3 (16:23→20:48)
[2018-04-28 16:25] LABS: AST/SGOT > 2002 U/L (15-37)
[2018-04-28 16:31] LABS: INR > 10.0 (0.9-1.1)
[2018-04-28] MEDS ORDERED: RANI300T2 PO (16:35)
[2018-04-28] MEDS ORDERED: PANT40TA PO (16:35)
[2018-04-28] MEDS ORDERED: ASPI81TA28 PO (16:35)
[2018-04-28] MEDS ORDERED: CLOP1TAB15 PO (16:35)
--- NOTE | 2018-04-28 17:37 | DIAGNOSTIC IMAGING REPORT ---
ULTRASOUND RIGHT UPPER QUADRANT ABDOMEN CLINICAL HISTORY: Abnormal liver function studies. COMPARISON STUDY: Abdominal CT dated 11/04/2017. TECHNIQUE: Real-time, grayscale, and color flow sonography of the right upper quadrant of the abdomen was performed. Images are reviewed in the transverse and longitudinal planes. FINDINGS: Liver: The liver is mildly enlarged and demonstrates heterogeneously increased echotexture indicating hepatic steatosis. There is no intrahepatic biliary ductal dilatation. The main portal vein is patent. Gallbladder: The gallbladder is normal in appearance. No gallstones are identified. There is no gallbladder wall thickening or pericholecystic fluid. A sonographic Duncan's sign is reportedly absent. The common bile duct measures up to 0.4 cm in diameter. Pancreas: Visualized portions of the pancreatic head are normal in appearance. The majority of the pancreas was not well visualized. Right kidney: Survey images of the right kidney demonstrate normal size and echotexture. There is no hydronephrosis. Ascites: None. IMPRESSION: 1. Hepatomegaly and hepatic steatosis. 2. No gallstones are identified. Electronically signed by: Angus Marte M.D. 04/28/2018 5:36 PM Dictated Date/Time: 04/28/2018 5:35 PM
[2018-04-28] MEDS ORDERED: PHYTONADIONE 5 MG TAB PO STA ×2 (17:55→19:01)
[2018-04-28 19:14] VITALS: TEMP 36.8
--- NOTE | 2018-04-28 20:01 | Medical Consult ---
Consultation Date of Consultation: Apr 28, 2018. Attending Physician: Dr. Dozier Reason for Consultation: Assessment for admission, Elevated LFTs,INR History of Present Illness Patient is a 57 yr female with PMH of chronic recurrent pancreatitis, h/o heavy persistent etoh abuse, depression w/ anxiety, chronic hyponatremia secondary to polydipsia and beer potomania, GERD, paroxysmal A Fib (on coumadin) , HTN, tobacco use disorder, PVD (s/p bilateral femoral endarterectomy in Sep 2016) and s/p Left BKA with phantom pain, who presents to the ER after getting a phone call from her new PCP reporting significantly elevated LFTs and INR. Pt has chronic epigastric abd pain but no worse than her usual. SHe was just discharged from [facility] a few weeks ago for acute pancreatitis, elevated INR. She denies any bleeding-no epistaxis or gum bleeding, no hematemesis, no melena or hematochezia, no vag bleeding or hematuria. Denies CHAVIS or chest pain, no SOB, no hemoptysis, no cough. She is actually feeling quite well, other than the chronic neuropathic pain in her left BKA stump. She reports she takes acetaminophen 3000 mg total daily as she was advised she could do. She is also continuing to drink beer on a daily basis. She previously drank 12 beers daily for 40 years, now says about 2-3 beers per day. She is also taking oxycodone prn pain in her stump, remains on amiodarone and a high intensity statin drug. She has a h/o DILI secondary to Augmentin in 2017. I reviewed her records from her PCP visit yesterday, as well as her labs which got her sent in--> revealed AST 3090, ALT 1348, Alk phos 136, lipase 227, and TBili normal at 0.8. INR was not checked as an outpt, but here it was > 10. LFTs in our ER were similar. Hgb notably normal here at 13.0, platelets normal at 200. Na+ low at 125. She had a RUQ US in ER which was negative except for fatty liver. No PVT, no ductal dilatation, no stones, no cholecystitis. KUB and CXR unremarkable. ECG showed a NSR, normal intervals. The Hospitalist service was asked to evaluate her for admission to the hospital. Past Medical/Surgical History PMH: Chronic recurrent pancreatitis Alcohol abuse Paroxysmal A Fib (on coumadin) HTN Tobacco use disorder PAD (s/p bilateral femoral endarterectomy in Sep 2016) and s/p Left BKA Chronic hyponatremia secondary to polydipsia and beer potomania GERD Depression w/ anxiety HLD PSH: Left BKA Bilateral femoral endarterectomies Appendectomy Breast Bx Family History Hypertension FATHER MOTHER Social History Smoking Status: Current Every Day Smoker Alcohol Use: heavy (12 beers daily x 40 years, more recently cut down to 3 beers daily) Drug Use: none Marital Status: Housing Status: lives with family Occupation Status: disabled Allergies Coded Allergies: Amoxicillin (Verified Allergy, Severe, LIVER FAILURE, 11/04/17) Clavulanic Acid (Verified Allergy, Severe, LIVER FAILURE, 11/04/17) Adhesives (Verified Allergy, Mild, 11/04/17) Acetaminophen (Verified Allergy, Unknown, LIVER DAMAGE-DUE TO FAILURE, 11/04) Guanfacine (Verified Allergy, Unknown, 11/04/17) Nifedipine (Verified Allergy, Unknown, 11/04/17) Home Medications Reported Home Medications Medications Dose Route/Sig Max Daily Dose Days Date Category Dose Instructions Oxycodone HCl 5 Mg Tab 10 Mg PO Q6H PRN 2 04/28/18 Rx Docusate Sodium 100 Mg Cap 1 Cap PO BID PRN 7 04/28/18 Reported Coumadin (Warfarin Sodium) 5 Mg Tab 5 Mg PO DAILY 04/28/18 Reported Cymbalta (Duloxetine Hcl) 60 Mg Cap 60 Mg PO DAILY 04/28/18 Reported Cymbalta (Duloxetine Hcl) 30 Mg Cap 30 Mg PO DAILY 04/28/18 Reported TAKE WITH 60 MG = 90 MG Vitamin B-12 (Cyanocobalamin) 500 Mcg Tab 1,000 Mcg PO DAILY 04/28/18 Reported Phenergan Suppository (Promethazine HCl) 25 Mg Supp 25 Mg AR Q6H PRN 10/14/17 Reported Lopressor (Metoprolol Tartrate) 25 Mg Tab 25 Mg PO BID 10/14/17 Reported Zofran Odt (Ondansetron HCl) 8 Mg Soltab 8 Mg SL Q8 PRN 09/24/17 Reported Cordarone (Amiodarone Hcl) 200 Mg Tab 200 Mg PO DAILY 09/24/17 Reported Norvasc (Amlodipine Besylate) 10 Mg Tab 10 Mg PO DAILY 03/22/17 Reported Zantac (Ranitidine HCl) 300 Mg Tab 300 Mg PO HS 10/08/16 Reported Protonix (Pantoprazole Sodium) 40 Mg Tab 40 Mg PO DAILY 10/08/16 Reported Aspirin Ec (Aspirin) 81 Mg Tab 81 Mg PO DAILY 10/08/16 Reported Lipitor (Atorvastatin Calcium) 80 Mg Tab 80 Mg PO HS 10/08/16 Reported Plavix (Clopidogrel Bisulfate) 75 Mg Tab 75 Mg PO DAILY 10/08/16 Reported Current Inpatient Medications Current Inpatient Medications Medications (Trade) Dose Ordered Sig/Rosa Route Start Time Stop Time Status Last Admin Dose Admin Morphine Sulfate (MoRPHine SULFATE INJ) 4 mg Q15M PRN IV 04/28/18 14:30 05/12/18 14:29 Hydromorphone HCl (Dilaudid Inj) 1 mg Q30M PRN IV 04/28/18 16:15 05/12/18 16:14 04/28/18 17:39 1 MG Review of Systems Constitutional: No fever, No chills Eyes: No worsening of vision ENT: No nasal symptoms, No sore throat, No trouble swallowing Respiratory: No cough, No sputum, No wheezing, No shortness of breath, No hemoptysis Cardiovascular: No edema, No palpitations Abdomen: + pain (chronic, mild), No nausea, No vomiting, No diarrhea, No constipation, No GI bleeding Musculoskeletal: + joint pain (chronic left BKA stump shock-like pain) Genitourinary - Female: No problem reported Neurologic: No problem reported Psychiatric: No problem reported Endocrine: No problem reported Hematologic / Lymphatic: No problem reported Integumentary: No problem reported Allergic / Immunologic: No problem reported Physical Exam Date Time Temp Pulse Resp B/P (MAP) Pulse Ox O2 Delivery O2 Flow Rate FiO2 04/28/18 19:14 36.8 74 18 115/75 94 Room Air 04/28/18 17:36 81 18 131/80 98 Room Air 04/28/18 16:01 78 18 135/75 97 Room Air 04/28/18 13:42 37.0 78 18 140/84 98 Room Air General Appearance: WD/WN, no apparent distress Head: normocephalic, atraumatic Eyes: normal inspection, EOMI, sclerae normal ENT: hearing grossly normal, pharynx normal Neck: supple, no adenopathy, thyroid normal, no JVD, trachea midline Respiratory/Chest: lungs clear, normal breath sounds, no respiratory distress, no accessory muscle use Cardiovascular: regular rate, rhythm, no edema, no gallop, no murmur, normal peripheral pulses Abdomen/GI: normal bowel sounds, non tender, soft, no organomegaly Back: normal inspection, normal range of motion Extremities/Musculoskelatal: normal capillary refill, + pertinent finding ( left BKA present, no erythema or wound on steump, no edema) Neurologic/Psych: no motor/sensory deficits, alert, normal mood/affect, oriented x 3 Skin: normal color, warm/dry, no rash Lymphatic: no adenopathy Laboratory Results Last 24 Hours Test 04/28/18 15:31 04/28/18 16:00 04/28/18 18:29 04/28/18 19:01 White Blood Count 7.82 K/uL Red Blood Count 4.47 M/uL Hemoglobin 13.0 g/dL Hematocrit 37.8 % Mean Corpuscular Volume 84.6 fL Mean Corpuscular Hemoglobin 29.1 pg Mean Corpuscular Hemoglobin Concent 34.4 g/dl Platelet Count 204 K/uL Mean Platelet Volume 10.3 fL Neutrophils (%) (Auto) 74.6 % Lymphocytes (%) (Auto) 16.8 % Monocytes (%) (Auto) 5.9 % Eosinophils (%) (Auto) 1.9 % Basophils (%) (Auto) 0.4 % Neutrophils # (Auto) 5.84 K/uL Lymphocytes # (Auto) 1.31 K/uL Monocytes # (Auto) 0.46 K/uL Eosinophils # (Auto) 0.15 K/uL Basophils # (Auto) 0.03 K/uL RDW Standard Deviation 50.3 fL RDW Coefficient of Variation 16.3 % Immature Granulocyte % (Auto) 0.4 % Immature Granulocyte # (Auto) 0.03 K/uL Prothrombin Time > 100.0 SECONDS Prothromb Time International Ratio > 10.0 Activated Partial Thromboplast Time 79.0 SECONDS Partial Thromboplastin Ratio 3.0 Sodium Level 125 mmol/L Potassium Level 3.6 mmol/L Chloride Level 92 mmol/L Carbon Dioxide Level 25 mmol/L Anion Gap 8.0 mmol/L Blood Urea Nitrogen 7 mg/dl Creatinine 0.69 mg/dl Est Creatinine Clear Calc Drug Dose 81.7 ml/min Estimated GFR () 111.2 Estimated GFR (Non- 96.0 BUN/Creatinine Ratio 10.1 Random Glucose 94 mg/dl Calcium Level 8.4 mg/dl Magnesium Level 2.0 mg/dl Total Bilirubin 0.4 mg/dl Direct Bilirubin 0.2 mg/dl Aspartate Amino Transf (AST/SGOT) > 2002 U/L Alanine Aminotransferase (ALT/SGPT) 1185 U/L Alkaline Phosphatase 131 U/L Troponin I < 0.015 ng/ml Total Protein 6.9 gm/dl Albumin 3.1 gm/dl Lipase 303 U/L Thyroid Stimulating Hormone (TSH) 1.240 uIu/ml Urine Color YELLOW Urine Appearance CLEAR Urine pH 5.5 Urine Specific [place] 1.014 Urine Protein NEG Urine Glucose (UA) NEG Urine Ketones NEG Urine Occult Blood NEG Urine Nitrite NEG Urine Bilirubin NEG Urine Urobilinogen NEG Urine Leukocyte Esterase NEG Acetaminophen Level < 2 ug/ml Assessment & Plan Patient is a 57 yr female with PMH of chronic recurrent pancreatitis, h/o heavy persistent etoh abuse, depression w/ anxiety, chronic hyponatremia secondary to polydipsia and beer potomania, GERD, paroxysmal A Fib (on coumadin) , HTN, tobacco use disorder, PVD (s/p bilateral femoral endarterectomy in Sep 2016) and s/p Left BKA with phantom pain, who presents to the ER after getting a phone call from her new PCP reporting significantly elevated LFTs and INR. Pt has chronic epigastric abd pain but no worse than her usual. SHe was just discharged from [facility] a few weeks ago for acute pancreatitis, elevated INR. She denies any bleeding-no epistaxis or gum bleeding, no hematemesis, no melena or hematochezia, no vag bleeding or hematuria. Denies CHAVIS or chest pain, no SOB, no hemoptysis, no cough. She is actually feeling quite well, other than the chronic neuropathic pain in her left BKA stump. She reports she takes acetaminophen 3000 mg total daily as she was advised she could do. She is also continuing to drink beer on a daily basis. She previously drank 12 beers daily for 40 years, now says about 2-3 beers per day. She is also taking oxycodone prn pain in her stump, remains on amiodarone and a high intensity statin drug. She has a h/o DILI secondary to Augmentin in 2017. I reviewed her records from her PCP visit yesterday, as well as her labs which got her sent in--> revealed AST 3090, ALT 1348, Alk phos 136, lipase 227, and TBili normal at 0.8. INR was not checked as an outpt, but here it was > 10. LFTs in our ER were similar. Hgb notably normal here at 13.0, platelets normal at 200. Na+ low at 125. She had a RUQ US in ER which was negative except for fatty liver. No PVT, no ductal dilatation, no stones, no cholecystitis. KUB and CXR unremarkable. ECG showed a NSR, normal intervals. Transaminitis/EtOH Abuse: -likely alcohol induced, plus on acetaminophen 3000mg daily although APAP level here is <2, amiodarone, high intensity statin drug. She does not think she can quit drinking at this time and is not interested in Rehab for EtOH. TBili is normal and there is no evidence of obstruction or portal vein thrombosis on US of the liver. Lipase is normal so no concerns for acute pancreatitis or need for further imaging of the belly. She has no evidence of acute viral infection. Discussed the case with the counter control operator Crystal MARROQUIN, Dr. Evangelina Gregorio--> she recommended discharge to home from the ER as no acute issues with bleeding, no APAP toxicity. Recommend stopping all tylenol, quitting EtOH altogether, and repeat labs on Wednesday with results sent to PCP to follow. Would also discontinue the statin drug Pt agreeable with this plan as she feels fine. Supratherapeutic INR: INR > 10 on admission here. She is on warfarin and also has alcoholic hepatitis. She has no evidence of bleeding whatsoever here and hgb is normal. She was given Vitamin K 10mg po here in ER. -recommend holding coumadin and given her history of recurrent coagulopathy and continue alcohol use and hepatitis, would consider NOT restarting given risk outweighs benefit, especially as she remains in NSR on amiodarone -check PT/INR on Wednesday-Rx given for this and for repeat LFTs, CBC, BMP Hyponatremia-long history of this and likely secondary to beer potomania and reported polydipsia.Na+ here 125, asymptomatic -advised to not drink EtOH -repeat BMP on Wednesday Left BKA phantom limb neuropathic pain-has failed or cannot afford multiple meds. -she has upcoming f/u with a Surgeon to discuss surgical options for pain -discontinue acetaminophen and should not restart -continue oxycodone and gave a 2 day Rx to increase her dose to 10mg po qid prn as her PCP was going to do anyway Paroxysmal A Fib: Currently in NSR -continue on Metoprolol 25mg bid HTN: stable here Continue amlodipine, lopressor HLD: would dc statin completely until hepatitis resolves PAD (s/p bilateral femoral endarterectomy in Sep 2016) Continue ASA and Plavix -should hold statin GERD-continue antacids Disposition-would recommend discharge to home with close outpatient f/u with PCP and with GI as planned previously. Check labs on Wednesday Discussed my recommendations and GI phone consultation with Dr. Dozier and with the pt and her and all in agreement for dc from the ER to home. Additional Copies To Tex Kinsey D.O.; Janie Back PA-C
[2018-04-28] MEDS ORDERED: RXC5 PO (20:08)
[2018-04-28 21:11] VITALS: BP 108/76; PULSE 80; O2SAT 94
[2018-04-28] MEDS ORDERED: OXYCODONE IR HOME PACK PO ONE (21:15)
== END 2018-04-28 21:11 | disposition home or self-care (01) ==
LOC: C.EDB 13:36 → C.EDC 21:11
DX: R94.4 Abnormal results of kidney function studies (principal); R79.1 Abnormal coagulation profile; R10.11 Right upper quadrant pain; F41.8 Other specified anxiety disorders; I10 Essential (primary) hypertension; E78.5 Hyperlipidemia, unspecified; I48.91 Unspecified atrial fibrillation; I73.9 Peripheral vascular disease, unspecified; F17.200 Nicotine dependence, unspecified, uncomplicated; Z79.01 Long term (current) use of anticoagulants; Z79.82 Long term (current) use of aspirin; Z79.899 Other long term (current) drug therapy; Z88.0 Allergy status to penicillin; Z88.1 Allergy status to other antibiotic agents; Z91.048 Other nonmedicinal substance allergy status; Z88.6 Allergy status to analgesic agent

== ENCOUNTER 2018-11-20 16:17 | Inpatient (IN) ==
[2018-11-20] MEDS ORDERED: HYDROmorphone INJ 1 MG/ML SYRINGE IV STA (16:37)
[2018-11-20] MEDS ORDERED: ONDANSETRON INJ 2 MG/ML 2 ML VIAL IV STA (16:37)
[2018-11-20] MEDS ORDERED: SODIUM CHLORIDE 0.9% 1000ML 500 ML IV ONE (16:37)
--- NOTE | 2018-11-20 17:14 | Emergency Department Note ---
Entered by Izabella Webb acting as a scribe for Angus Houston MD History of Present Illness General Chief complaint: Infection, Wound Stated complaint: EXTREME PAIN, NAUSEA, INSCISION LEAKING Time Seen by Provider: 11/20/18 16:29 Source: patient Mode of arrival: wheelchair Limitations: no limitations History of Present Illness Onset (ago): day(s) 1 Location: knee (left) Radiation: non-radiation Pain Consistency: + constant Maximum Pain Intensity: 10 Current Pain Intensity: 10 Relieved By: + medication Exacerbated By: + movement Associated symptoms: no fever/chills and no nausea/vomiting Treatments prior to arrival: other (Medication) The patient is a 58 year old female who presents to the Emergency Room with complaints of a possible wound infection. She reports she had a revision left leg BKA on November 03 at [facility]. The original BKA was 2 years ago. The patient followed up with her surgeon 2 days ago and states the wound looked fine then. This morning, her pain has increased and she feels the incision has opened. She rates her pain as a 10/10 in severity. Oxycodone has provided no relief. The patient denies any recent fevers or chills. She has not vomited. The patient was placed on Bactrim on Wednesday at her follow up visit. Home Medications Home Medications Medication Instructions Recorded Confirmed Type amlodipine 10 mg PO QAM 07/18/18 11/20/18 History atorvastatin 80 mg PO QAM 07/18/18 11/20/18 History calcium carbonate [Tums] 200 mg PO QID PRN 07/18/18 11/20/18 History clopidogrel 75 mg PO QAM 07/18/18 11/20/18 History diclofenac sodium 1 applic TOPICAL UD 07/18/18 11/20/18 History metoprolol tartrate 25 mg PO BID 07/18/18 11/20/18 History pantoprazole 40 mg PO QAM 07/18/18 11/20/18 History polyethylene glycol 3350 [Miralax] 17 g PO DAILY PRN 07/18/18 11/20/18 History promethazine 25 mg NH Q6H PRN 07/18/18 11/20/18 History ranitidine HCl 300 mg PO HS 07/18/18 11/20/18 History sennosides [senna] 8.6 mg PO BID PRN 07/18/18 11/20/18 History thiamine HCl (vitamin B1) 100 mg PO QAM 07/18/18 11/20/18 History zolpidem 10 mg PO HS 07/18/18 11/20/18 History Medical Marijuana 1 dose PO DIRECTED 11/20/18 11/20/18 History gabapentin 300 mg PO TID 11/20/18 11/20/18 History oxycodone 5 mg PO Q6 PRN 11/20/18 11/20/18 History sulfamethoxazole-trimethoprim 1 tab PO BID 11/20/18 11/20/18 History Allergies Allergy/AdvReac Type Severity Reaction Status Date / Time amoxicillin Allergy Severe LIVER Verified 11/20/18 16:33 FAILURE clavulanic acid Allergy Severe LIVER Verified 11/20/18 16:33 FAILURE adhesive Allergy Mild Verified 11/20/18 16:33 acetaminophen Allergy Unknown LIVER Verified 11/20/18 16:33 DAMAGE-DUE TO FAILURE guanfacine Allergy Unknown Verified 11/20/18 16:33 nifedipine Allergy Unknown Verified 11/20/18 16:33 Past Med/Surg History Medical History Chronic alcoholism PVD (peripheral vascular disease) (Chronic) HTN (hypertension) (Chronic) Anxiety Depression (Chronic) Dyslipidemia (Chronic) Paroxysmal atrial fibrillation (Chronic) Acute pancreatitis (Acute) Surgical History History of appendectomy (Chronic) H/O vascular surgery (Chronic) "bilateral femoral endarterectomy with iliac stent 10/02/2016 Dr. Dharmesh Omalley, [facility]" Status post ORIF of fracture of ankle (Chronic) "12/18/16- ORIF closed displaced trimalleolar left ankle fracture; Dr. 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 and A total of 10 systems reviewed and were otherwise negative Physical Exam Vital Signs Vital Signs - 24 hr 11/20/18 16:18 11/20/18 16:21 11/20/18 18:21 Temperature 36.6 C Temperature Source Oral Oral Sepsis Recent Fever Within 48 Hours No Sepsis New/Unexplained Change in Mental Status No Sepsis Action Taken by Nursing No Action Required Pulse Rate 70 Pulse Rate [Right Radial] 69 Pulse Rate from SpO2 Sensor Pulse Rhythm [Right Radial] Regular Pulse Strength [Right Radial] Respiratory Rate 18 18 Respiratory Effort / Characteristics Non-Labored Respiratory Depth Normal Normal Respiratory Pattern Regular Blood Pressure 136/82 Blood Pressure [Right Arm] 102/58 L Blood Pressure Mean 100 Blood Pressure Mean [Right Arm] 72 Blood Pressure Position Sitting Blood Pressure Position [Right Arm] Sitting Pulse Oximetry 99 98 Oxygen Delivery Method Room Air Room Air 11/20/18 18:41 11/20/18 20:00 11/20/18 20:02 Temperature Temperature Source Sepsis Recent Fever Within 48 Hours Sepsis New/Unexplained Change in Mental Status Sepsis Action Taken by Nursing Pulse Rate 71 71 70 Pulse Rate [Right Radial] Pulse Rate from SpO2 Sensor 71 71 Pulse Rhythm [Right Radial] Pulse Strength [Right Radial] Respiratory Rate 22 18 13 Respiratory Effort / Characteristics Respiratory Depth Respiratory Pattern Blood Pressure 113/63 106/64 106/64 Blood Pressure [Right Arm] Blood Pressure Mean 79 78 78 Blood Pressure Mean [Right Arm] Blood Pressure Position Blood Pressure Position [Right Arm] Pulse Oximetry 96 94 95 Oxygen Delivery Method Room Air 11/20/18 20:30 11/20/18 20:57 11/20/18 21:00 Temperature 36.7 C Temperature Source Oral Sepsis Recent Fever Within 48 Hours Sepsis New/Unexplained Change in Mental Status Sepsis Action Taken by Nursing Pulse Rate 73 68 Pulse Rate [Right Radial] 75 Pulse Rate from SpO2 Sensor 73 67 Pulse Rhythm [Right Radial] Regular Pulse Strength [Right Radial] Normal Respiratory Rate 14 16 15 Respiratory Effort / Characteristics Non-Labored Spontaneous Respiratory Depth Normal Respiratory Pattern Regular Blood Pressure 119/67 98/56 L Blood Pressure [Right Arm] 131/81 Blood Pressure Mean 84 70 Blood Pressure Mean [Right Arm] 97 Blood Pressure Position Blood Pressure Position [Right Arm] Lying Pulse Oximetry 95 93 92 Oxygen Delivery Method Room Air 11/20/18 21:30 02/24/19 22:00 Temperature Temperature Source Sepsis Recent Fever Within 48 Hours Sepsis New/Unexplained Change in Mental Status Sepsis Action Taken by Nursing Pulse Rate 67 71 Pulse Rate [Right Radial] Pulse Rate from SpO2 Sensor 67 71 Pulse Rhythm [Right Radial] Pulse Strength [Right Radial] Respiratory Rate 12 13 Respiratory Effort / Characteristics Respiratory Depth Respiratory Pattern Blood Pressure 96/56 L 106/59 L Blood Pressure [Right Arm] Blood Pressure Mean 69 74 Blood Pressure Mean [Right Arm] Blood Pressure Position Blood Pressure Position [Right Arm] Pulse Oximetry 91 93 Oxygen Delivery Method GENERAL: Patient is in moderate distress from pain. HEENT: No acute trauma, normocephalic atraumatic, mucous membranes moist, no nasal congestion, no scleral icterus. NECK: No stridor, no adenopathy, no meningismus, trachea is midline. LUNGS: Clear to auscultation bilaterally, no wheeze, no rhonchi, breath sounds equal. HEART: Without murmurs gallops or rubs, regular rate and rhythm. ABDOMEN: Soft, nontender, bowel sounds positive, no hernias, no peritonitis. EXTREMITIES: Left below knee amputation, sutures in place, wound has opened along the medial aspect, there is some serosanguinous drainage, some mild erythema surrounding the wound, especially posteriorly, whole area is quite tender, no foul odor. NEUROLOGIC: Oriented x 3, no acute motor or sensory deficits, no focal weakness. SKIN: No rash, no jaundice, no diaphoresis. Course 163: Past medical records reviewed. The patient was evaluated in room B9, and a complete history and physical examination were performed. 1827: I discussed the patients case with Dr. Toledo, [facility] General Surgery. He recommends the patient be transferred to a tertiary care center for further management. 1845: I discussed the patients case with Dr. Avalos, [facility] Plastic Surgery. The patient does not meet criteria for transfer as [facility] is at critical capacity. 1850: I reevaluated the patient. I discussed my conversation with PSRhonda sEcobar and she is comfortable remaining here at [facility]. The patient will be further evaluated. 185: I discussed the patients case with Dr. Rebollar, [facility] Hospitalist. The patient will be further evaluated. Consultations Consultation #1: I discussed the patients case with Dr. Toledo, [facility] General Surgery. He recommends the patient be transferred to a tertiary care center for further management. Time: 18:27 Consultation #2: I discussed the patients case with Dr. Avalos, [facility]astic Surgery. The patient does not meet criteria for transfer as [facility] is at critical capacity. Time: 18:45 Consultation #3: I discussed the patients case with Dr. Rebollar, [facility] Hospitalist. The patient will be further evaluated. Time: 18:51 Administered Medications Gabapentin (Neurontin) 300 mg PO TID ZACH Stop: 12/20/18 22:46 Last Admin: 11/20/18 23:49 Dose: 300 mg Clindamycin Phosphate 300 mg/ (Dextrose) 52 mls @ 100 mls/hr IV Q6H ZACH Stop: 12/01/18 00:00 Last Admin: 11/20/18 23:44 Dose: 100 mls/hr Sodium Chloride (Nss 1000ml) 1,000 mls @ 125 mls/hr IV .Q8H ZACH Stop: 12/20/18 23:14 Last Admin: 11/20/18 23:44 Dose: 125 mls/hr Vancomycin HCl 750 mg/ Sodium (Chloride) 265 mls @ 125 mls/hr IV NOW STA Stop: 11/21/18 01:19 Last Admin: 11/20/18 23:46 Dose: 125 mls/hr Oxycodone HCl (Roxicodone Immediate Rel) 5 mg PO Q6 PRN PRN Reason: Pain Stop: 12/04/18 22:46 Last Admin: 11/20/18 23:36 Dose: 5 mg Ranitidine HCl (Zantac) 300 mg PO HS ZACH Stop: 12/20/18 22:46 Last Admin: 11/20/18 23:49 Dose: 300 mg Zolpidem Tartrate (Ambien) 10 mg PO HS ZACH Stop: 12/20/18 22:46 Last Admin: 11/20/18 23:36 Dose: 10 mg Discontinued Medications Hydromorphone HCl (Dilaudid) 1 mg IV NOW STA Stop: 11/20/18 16:38 Last Admin: 11/20/18 17:33 Dose: 1 mg Hydromorphone HCl (Dilaudid) 0.5 mg IV Q15M PRN PRN Reason: Pain Stop: 12/04/18 18:17 Last Admin: 11/20/18 19:57 Dose: 0.5 mg Admin: 11/20/18 18:47 Dose: 0.5 mg Admin: 11/20/18 18:33 Dose: 0.5 mg Sodium Chloride (Nss 1000ml) 500 mls @ 999 mls/hr IV .Q31M ONE Stop: 11/20/18 17:07 Last Infusion: 11/20/18 18:07 Dose: 0 mls/hr Admin: 11/20/18 17:36 Dose: 999 mls/hr Cefepime HCl 2,000 mg/ Syringe 20 mls @ 5.5 mls/min IV NOW STA Stop: 11/20/18 18:15 Last Admin: 11/20/18 18:50 Dose: 5.5 mls/min Clindamycin Phosphate 900 mg/ (Dextrose) 106 mls @ 100 mls/hr IV ONE ONE Stop: 11/20/18 19:28 Last Infusion: 11/20/18 19:57 Dose: 0 mls/hr Admin: 11/20/18 18:52 Dose: 100 mls/hr Vancomycin HCl (Vancomycin Hcl) 1,000 mg in 270 mls @ 125 mls/hr IV NOW STA Stop: 11/20/18 20:34 Last Infusion: 11/20/18 20:58 Dose: 0 mls/hr Admin: 11/20/18 18:48 Dose: 125 mls/hr Sodium Chloride (Nss) 500 mls @ 125 mls/hr IV .Q4H ZACH Stop: 12/20/18 18:29 Last Admin: 11/20/18 18:45 Dose: 125 mls/hr Ondansetron HCl (Zofran) 4 mg IV NOW STA Stop: 11/20/18 16:38 Last Admin: 11/20/18 17:33 Dose: 4 mg Medical Decision Making Differential Diagnosis The differential diagnoses considered include: cellulitis, wound dehiscence, uncontrolled outpatient pain, osteomyelitis, abscess, vascular compromise, bacteremia, electrolyte imbalance, anemia. Medical Records Attestation: I reviewed the patient's medical records. Home Medications Current Medication List: was personally reviewed by me Laboratory Data Attestation: I reviewed the patient's lab results. Result diagrams: 11/20/18 17:23 11/20/18 17:23 Lab Results 02/24/19 02/24/19 Range/Units 17:23 17:23 WBC 12.48 H (4.8-10.8) K/uL RBC 3.96 L (4.2-5.4) M/uL Hgb 12.0 (12.0-16.0) g/dL Hct 35.4 L (37-47) % MCV 89.4 (80-100) fL MCH 30.3 (25-34) pg MCHC 33.9 (32-36) g/dL RDW Std Deviation 54.3 H (36.4-46.3) fL RDW Coeff of Marlon 16.5 H (11.5-14.5) % Plt Count 372 (130-400) K/uL MPV 9.9 (7.4-10.4) fL Immature Gran % (Auto) 0.8 % Neut % (Auto) 65.5 % Lymph % (Auto) 21.7 % Gage % (Auto) 8.7 % Eos % (Auto) 2.7 % Baso % (Auto) 0.6 % Immature Gran # (Auto) 0.10 H (0.00-0.02) K/uL Neut # (Auto) 8.18 H (1.4-6.5) K/uL Lymph # (Auto) 2.71 (1.2-3.4) K/uL Gage # (Auto) 1.08 H (0.11-0.59) K/uL Eos # (Auto) 0.34 (0-0.5) K/uL Baso # (Auto) 0.07 (0-0.2) K/uL Sodium 127 L (136-145) mmol/L Potassium 4.2 (3.5-5.1) mmol/L Chloride 97 L (98-107) mmol/L Carbon Dioxide 22 (21-32) mmol/L Anion Gap 8.0 (3-11) BUN 4 L (7-18) mg/dl Creatinine 0.72 (0.6-1.2) mg/dl Est Cr Clr Drug Dosing Not Reportable Est GFR ( Amer) 107.0 Est GFR (Non-Af Amer) 92.3 BUN/Creatinine Ratio 5.7 L (10-20) Glucose 85 (70-99) mg/dl Calcium 7.8 L (8.5-10.1) mg/dl Imaging Data Radiologist's Impression: Radiology results as stated below per my review and the radiologist's interpretation: CT lower leg LT wo con CLINICAL HISTORY: 58 years-old Female presenting with stump, poss osteo. TECHNIQUE: Multidetector CT of the left lower leg was performed without the use of intravenous contrast. IV contrast: None. One or more dose lowering techniques were used consistent with the principles of ALARA (as low as reasonably achievable), including automatic exposure control, mA or kV adjustment to individual patient size, and/or use of iterative reconstruction. COMPARISON: MR of the left lower leg from 06/22/2018. CT DOSE (mGy.cm): The estimated cumulative dose is 262.76 mGy.cm. FINDINGS: Java Web Services Developer topogram: Left below the knee amputation. Atherosclerosis. Postsurgical changes of [id number] amputation. Osteopenia. The previously evident tibial plateau fracture is no longer apparent. The severe degree of osteopenia limits evaluation for acute fracture. Allowing for this, cortical step-off at the posterior aspect of the articular surface of the lateral tibial plateau, which was present on prior exam. This is consistent with a chronic posttraumatic deformity. No convincing evidence of an acute osseous injury. There is abnormal fluid within the distal portion of the tibia (series 303 image 50). Associated limited foci of gas. This measures 2.3 x 1.9 x 1.5 cm. There is also significant fluid and inflammatory change in the overlying muscle pad, which tracks to the skin defect in the distal aspect of the stump. No well- defined fluid collection in the soft tissues along for the lack of intravenous contrast. No knee joint effusion. IMPRESSION: Ulceration at the below the knee indication stump with significant associated fluid and inflammatory change tracking to the distal tibia, where there is an intraosseous abscess. The presence of intraosseous gas is consistent with a gas- forming organism. The report will be called/faxed according to standard departmental protocol. Electronically signed by: Titus Winston M.D. 11/20/2018 6:19 PM Blood Pressure Blood Pressure Findings: Normal blood pressure Blood Pressure Disposition: did not require urgent referral MDM Narrative There is a mild leukocytosis at 12,000, this could be consistent with infection or possibly her pain. No concerning anemia. Renal panel testing does not show renal failure, the sodium was low at 127-the patient carries a history of a low sodium value. CT of the left below the knee amputation stump shows possible bony abscess and gas forming organisms. There was inflammation to the soft tissue. Infection was thought likely. On exam, there was some mild erythema to the wound-the erythema was outlined, there had been some wound dehiscence, a culture was sent. The patient received IV Dilaudid for pain, IV Zofran for nausea. She was given IV saline. She received triple antibiotic coverage with clindamycin, cefepime and vancomycin, all IV. I discussed the case with our general surgeon, transfer was recommended. I discussed the case with the physicians at [facility], the patient was not felt in need of transfer to a tertiary center. The physicians there felt that a lot of the changes on the CT were likely from the surgery itself, not all from infection. They felt that IV antibiotics here at our hospital would be reasonable. I spoke to case management, I did call and speak with the on-call hospitalist. The patient is aware of her findings and the need for hospitalization. I do believe she has infection to the stump revision site. For now, transfer does not appear indicated. Impression & Plan Amputation stump infection, Status post below knee amputation of left lower extremity, Left leg pain Critical Care Time I have personally spent greater than 32 minutes of critical care time in the direct management of this patient. This includes bedside care, interpretation of diagnostic studies and testing, discussion with consultants, the patient, and family members, and other required patient management activities. This 32 minutes is in excess of all separately billable procedures. Critical Care Time: Yes Total Critical Care Time: 32 Discharge Plan Visit Data *Final* Discharge Date/Time: 11/20/18 22:53 Chief Complaint: Infection, Wound Stated Complaint: EXTREME PAIN, NAUSEA, INSCISION LEAKING ED Provider: Angus Houston Discharge Problem: Amputation stump infection, Status post below knee amputation of left lower extremity, Left leg pain Patient Disposition: Admitted As Inpatient Discharge Instructions Interventions: ED Discharge Assessment Last Done: 11/20/18 22:53 The scribe's documentation has been prepared under my direction and personally reviewed by me in its entirety. I confirm that the note above accurately reflects all work, treatment, procedures, and medical decision making performed by me.
[2018-11-20 17:35] LABS: Basophils # (auto) 0.07 K/uL (0-0.2); Basophils % (auto) 0.6 %; Eosinophils # (auto) 0.34 K/uL (0-0.5); Eosinophils % (auto) 2.7 %; Hematocrit (blood only) 35.4 % (37-47); Immature Granulocytes % (auto) 0.8 %; Lymphocytes # (auto) 2.71 K/uL (1.2-3.4); Lymphocytes % (auto) 21.7 %; Mean Corpuscular Hgb Conc 33.9 g/dL (32-36); Mean Corpuscular Volume 89.4 fL (80-100); Mean Platelet Volume 9.9 fL (7.4-10.4); Monocytes # (auto) 1.08 K/uL (0.11-0.59); Monocytes % (auto) 8.7 %; Neutrophils # (auto) 8.18 K/uL (1.4-6.5); Neutrophils % (auto) 65.5 %; Platelet Count 372 K/uL (130-400); RDW Coefficient of Variation 16.5 % (11.5-14.5); RDW Standard Deviation 54.3 fL (36.4-46.3); Red Blood Count 3.96 M/uL (4.2-5.4); White Blood Count 12.48 K/uL (4.8-10.8)
[2018-11-20 17:51] LABS: BUN Creatinine Ratio 5.7 (10-20); Blood Urea Nitrogen 4 mg/dl (7-18); Calcium 7.8 mg/dl (8.5-10.1); Carbon Dioxide 22 mmol/L (21-32); Chloride 97 mmol/L (98-107); Est GFR (Non-African American) 92.3; Glucose 85 mg/dl (70-99); Potassium 4.2 mmol/L (3.5-5.1); Sodium 127 mmol/L (136-145)
[2018-11-20] MEDS ORDERED: CEFEPIME 2,000 MG in SYRINGE 7.5 ML IV STA (18:12)
--- NOTE | 2018-11-20 18:20 | CT Scan Report ---
CT lower leg LT wo con CLINICAL HISTORY: 58 years-old Female presenting with stump, poss osteo. TECHNIQUE: Multidetector CT of the left lower leg was performed without the use of intravenous contra st. IV contrast: None. One or more dose lowering techniques were used consistent with the principles of ALARA (as low as reasonably achievable), including automatic exposure control, mA or kV adjustment to individual patient size, and/or use of iterative reconstruction. COMPARISON: MR of the left lower leg from 06/22/2018. CT DOSE (mGy.cm): The estimated cumulative dose is 262.76 mGy.cm. 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 Atherosclerosis. Postsurgical changes of [id number] amputation. Osteopenia. The previously evident tibial plateau fracture is no longer apparent. The severe degree of osteopenia limits evaluation for acute fracture. Allowing for this, cortical step-off at the posterior aspect of the articular surface of the lateral tibial plateau, which was present on prior exam. This is consistent with a chronic posttraumatic def ormity. No convincing evidence of an acute osseous injury. There is abnormal fluid within the distal portion of the tibia (series 303 image 50). Associated limi elvia foci of gas. This measures 2.3 x 1.9 x 1.5 cm. There is also significant fluid and inflammatory c hange in the overlying muscle pad, which tracks to the skin defect in the distal aspect of the stump. No well-defined fluid collection in the soft tissues along for the lack of intravenous contrast. No knee joint effusion. IMPRESSION: Ulceration at the below the knee indication stump with significant associated fluid and inflammatory change tracking to the distal tibia, where there is an intraosseous abscess. The presence of intraoss eous gas is consistent with a gas-forming organism. The report will be called/faxed according to standard departmental protocol. Electronically signed by: Titus Winston M.D. 11/20/2018 6:19 PM
[2018-11-20] MEDS ORDERED: VANCOMYCIN CONSULT ACTIVE PRN (18:25)
[2018-11-20] MEDS ORDERED: CLINDAMYCIN 900 MG in DEXTROSE 5% 100 ML IV ONE (18:25)
[2018-11-20] MEDS ORDERED: VANCOMYCIN HCL 1,000 MG/270 ML BAG IV STA (18:25)
[2018-11-20] MEDS ORDERED: SODIUM CHLORIDE 0.9% 500 ML IV SCH (18:30)
[2018-11-20] MEDS: HYDROmorphone INJ 0.5 MG/0.5 ML SYR IV PRN ×3 (18:33→19:57)
--- NOTE | 2018-11-20 20:11 | History & Physical Report ---
Date of Service November 20, 2018 Assessment & Plan (1) Amputation stump infection: Ms. Garcia is a 58 year old female with a past medical history of peripheral vascular disease (s/p bilateral femoral endarterectomy on Sep 2016), left BKA, alcoholism leading to chronic hyponatremia due to polydipsia and beer potomania, chronic pancreatitis, GERD hypertension, anxiety and depression, hyperlipidemia, and paroxysmal atrial fibrillation who presented to the ED due to concerns regarding a wound infection of the incision on her left BKA. -admit to Med/Surg with telemetry monitoring -Pt has elevated white cell count, and examination consistent with left leg wound infection -Lower extremity CT shows ulceration below the knee with significant associated fluid and inflammatory changes tracking to the distal tibia, where there is an intraosseous abscess. Intraosseous gas is also noted. Dr. Houston called the on- call plastic surgeon at [facility] (Dr. Avalos), who stated that these were normal postsurgical changes seen on CT, and that the patient did not require transfer to [facility], as [facility] was at critical capacity. He recommended treating with broad-spectrum antibiotics, and keeping a close eye to make sure that the erythema did not extend beyond the line drawn in the ED. -Patient received cefepime, clindamycin and vancomycin in the emergency department, will continue all 3 antibiotics. -blood and wound cultures ordered and pending -Infectious disease consult placed, patient will likely need PICC line prior to discharge for long-term antibiotics -Consider ortho consult. Patient has seen Dr. Gan in the past. -Wound care consulted -Continue home oxycodone 5 mg every 6 hours as needed, with Dilaudid 0.5 mg IV every 3 hours as needed for breakthrough pain -Continue gabapentin for phantom limb pain, post BKA (2) Chronic alcoholism: -Last alcoholic beverage was earlier today -Monitor for signs and symptoms of withdrawal -Patient states that she has not had alcohol withdrawal symptoms before -Continue thiamine supplementation (3) Chronic pancreatitis: -Patient has a history of chronic abdominal discomfort and requires daily narcotics for this -Chronic pancreatitis is secondary to repeated acute pancreatitis that were induced by alcohol (4) PVD (peripheral vascular disease): -Continue Plavix (5) HTN (hypertension): -Hold home amlodipine given hypotension, can restart when blood pressure allows -metoprolol held tonight, due to restart tomorrow AM with hold parameters (6) Dyslipidemia: -Continue home atorvastatin (7) Paroxysmal atrial fibrillation: -continue home metoprolol w/hold parameters -Patient states that she is not on anticoagulation due to prior concerns regarding bleeding (8) Hyponatremia: -Chronic hyponatremia secondary to polydipsia and beer potomania -Sodium level 127 on admission, continue to monitor (9) Otitis externa: -Examination of right ear consistent with otitis externa -Ofloxacin drops started (10) GERD (gastroesophageal reflux disease): -continue home pantoprazole and ranitidine (11) Tobacco use disorder: -Consider nicotine patch -Smoking cessation encouraged CODE STATUS: Full DVT prophylaxis: 5000 units of heparin twice daily Disposition: Admit to med/surg with telemetry monitoring F/E/N: Heart healthy diet ordered. Hyponatremia noted on labs. Normal saline at 125 mls/hr x2 bags ordered. History of Present Illness Primary Care Provider: Janie Back PA-C Ms. Garcia is a 58 year old female with a past medical history of peripheral vascular disease (s/p bilateral femoral endarterectomy on Sep 2016), left BKA, alcoholism leading to chronic hyponatremia due to polydipsia and beer potomania , chronic pancreatitis, GERD hypertension, anxiety and depression, hyperlipidemia, and paroxysmal atrial fibrillation who presented to the ED due to concerns regarding a wound infection of the incision on her left BKA. She states that she had the BKA on her left lower extremity 2 years ago. This was done due to the fact that she broke her left ankle, underwent surgery for this, and it subsequently became infected. She stated that it was debrided over 15 times, and eventually they decided the best option was to conduct an amputation. She had a revision BKA on November 03, 2018 due to severe residual pain that was preventing her from using prosthetics. She had a follow-up appointment with both plastics and orthopedics in [place] on Wednesday [3 days ago] , at which time they said the wound looked fine. They did start her on Bactrim to "err on the side of caution." She states that the wound became more painful , and that it started seeping blood. She denies fever, chills. She has been eating and drinking well. Her only other complaint is drainage from her right ear, and feeling as though her right ear is congested. She states that she had antibiotics for this a proximally 1 month ago, which improved her symptoms. She states that there are symptoms worsened over the last week. Of note, she is a smoker. Her last cigarette was approximately 1 week and a half ago. She has been smoking approximately 1 pack a day for the last 40 years. She has a history of alcoholism, and generally drinks beer on a daily basis. Her last drink was earlier this afternoon. She states she has cut back and no longer drinks beer on a daily basis. She denies having gone into alcohol withdrawals in the past. With regards to her peripheral vascular disease, she has had bilateral stents placed in her femoral arteries. She is on aspirin and Plavix. She was on Coumadin in the past for her paroxysmal atrial fibrillation, but this was stopped due to a high bleeding risk. Allergies Allergy/AdvReac Type Severity Reaction Status Date / Time amoxicillin Allergy Severe LIVER Verified 11/20/18 16:33 FAILURE clavulanic acid Allergy Severe LIVER Verified 11/20/18 16:33 FAILURE adhesive Allergy Mild Verified 11/20/18 16:33 acetaminophen Allergy Unknown LIVER Verified 11/20/18 16:33 DAMAGE-DUE TO FAILURE guanfacine Allergy Unknown Verified 11/20/18 16:33 nifedipine Allergy Unknown Verified 11/20/18 16:33 Home Medications Home Medications Medication Instructions Recorded Confirmed Type amlodipine 10 mg PO QAM 07/18/18 11/20/18 History atorvastatin 80 mg PO QAM 07/18/18 11/20/18 History calcium carbonate [Tums] 200 mg PO QID PRN 07/18/18 11/20/18 History clopidogrel 75 mg PO QAM 07/18/18 11/20/18 History diclofenac sodium 1 applic TOPICAL UD 07/18/18 11/20/18 History metoprolol tartrate 25 mg PO BID 07/18/18 11/20/18 History pantoprazole 40 mg PO QAM 07/18/18 11/20/18 History polyethylene glycol 3350 [Miralax] 17 g PO DAILY PRN 07/18/18 11/20/18 History promethazine 25 mg GA Q6H PRN 07/18/18 11/20/18 History ranitidine HCl 300 mg PO HS 07/18/18 11/20/18 History sennosides [senna] 8.6 mg PO BID PRN 07/18/18 11/20/18 History thiamine HCl (vitamin B1) 100 mg PO QAM 07/18/18 11/20/18 History zolpidem 10 mg PO HS 07/18/18 11/20/18 History Medical Marijuana 1 dose PO DIRECTED 11/20/18 11/20/18 History gabapentin 300 mg PO TID 11/20/18 11/20/18 History oxycodone 5 mg PO Q6 PRN 11/20/18 11/20/18 History sulfamethoxazole-trimethoprim 1 tab PO BID 11/20/18 11/20/18 History Past Med/Surg History Medical History Chronic alcoholism PVD (peripheral vascular disease) (Chronic) HTN (hypertension) (Chronic) Anxiety Depression (Chronic) Dyslipidemia (Chronic) Paroxysmal atrial fibrillation (Chronic) Acute pancreatitis (Acute) Surgical History History of appendectomy (Chronic) H/O vascular surgery (Chronic) "bilateral femoral endarterectomy with iliac stent 10/02/2016 Dr. Dharmesh Omalley, [facility]" Status post ORIF of fracture of ankle (Chronic) "12/18/16- ORIF closed displaced trimalleolar left ankle fracture; Dr. Fischer" Status post below knee amputation of left lower extremity (Chronic) Social History marital status: Current Living Situation: Spouse Feels Safe at Home: Yes Safety Concerns: Feels Safe At This Time Smoking Status: Current every day smoker Tobacco Type: cigarettes Cigarettes per Day: 20 Hx Alcohol Use: Yes Alcohol type: beer and other Alcohol Intake Frequency: a few times a month Hx Substance Use: Yes Beliefs That Will Affect Care: None Preferred Language: Syriac Communication Ability: Effective Waiter Waitress Required: No Review of Systems Constitutional: no fever, no chills, no fatigue, no weakness and no anorexia Ear, Nose, Mouth, Throat: + ear discharge (Right side, associated with congestion); no post nasal drip Respiratory: no cough and no wheezing Cardiovascular: no chest pain, no syncope, no edema and no calf pain Gastrointestinal: no abdominal pain, no nausea, no vomiting and no change in bowel habits Genitourinary (Female): no dysuria, no urinary frequency and no urinary hesitancy Left leg pain Left leg wound dehiscence Physical Exam 2 Vital Signs (Past 24 Hours): Last Vital Signs Temp 36.6 C 11/20/18 16:21 Pulse 71 11/20/18 20:00 Resp 18 11/20/18 20:00 BP 106/64 11/20/18 20:00 Pulse Ox 94 11/20/18 20:00 Constitutional: WD/WN, vitals as above comfortable; no acute distress ENMT: Ears: + hearing impairment (Difficulty hearing out of right ear) and + unable to visualize TM (Right ear with drainage present in the ear canal); no external ear abnormality Nose: no external nose abnormality Mouth: no oropharynx abnormality Respiratory: normal respiratory effort, lungs clear to auscultation Cardiovascular: RRR, no murmur, no edema Vessels: dorsalis pedis pulses present (Present on right leg) and radial pulses present Extremities: normal capillary refill (On right leg) Gastrointestinal (Abdomen): Percussion/Palpation: abdomen soft; abdomen nontender, no guarding and abdomen not rigid Skin: Left below-knee amputation, sutures in place. Separation of incision towards medial aspect of incision. Serosanguineous drainage noted. Erythema and tenderness surrounding sutures, not extending beyond line drawn in ED. No erythematous streaks up leg/thigh. Results & Data Laboratory Results Laboratory Results - last 24 hr 11/20/18 11/20/18 17:23 17:23 WBC 12.48 H RBC 3.96 L Hgb 12.0 Hct 35.4 L MCV 89.4 MCH 30.3 MCHC 33.9 RDW Std Deviation 54.3 H RDW Coeff of Marlon 16.5 H Plt Count 372 MPV 9.9 Immature Gran % (Auto) 0.8 Neut % (Auto) 65.5 Lymph % (Auto) 21.7 [place] % (Auto) 8.7 Eos % (Auto) 2.7 Baso % (Auto) 0.6 Immature Gran # (Auto) 0.10 H Neut # (Auto) 8.18 H Lymph # (Auto) 2.71 [place] # (Auto) 1.08 H Eos # (Auto) 0.34 Baso # (Auto) 0.07 Sodium 127 L Potassium 4.2 Chloride 97 L Carbon Dioxide 22 Anion Gap 8.0 BUN 4 L Creatinine 0.72 Est Cr Clr Drug Dosing Not Reportable Est GFR ( Amer) 107.0 Est GFR (Non-Af Amer) 92.3 BUN/Creatinine Ratio 5.7 L Glucose 85 Calcium 7.8 L Medications Administered Current Inpatient Medications Hydromorphone HCl (Dilaudid) 0.5 mg IV Q15M PRN PRN Reason: Pain Stop: 12/04/18 18:17 Last Admin: 11/20/18 19:57 Dose: 0.5 mg Sodium Chloride (Nss) 500 mls @ 125 mls/hr IV .Q4H ZACH Stop: 12/20/18 18:29 Last Admin: 11/20/18 18:45 Dose: 125 mls/hr Miscellaneous Information (Consult) 1 ea N/A UD PRN PRN Reason: Consult Stop: 12/20/18 18:24 Supervising Physician Co-Signing Physician Notes Attending addendum: I have physically seen this patient, have supervised the medical residents activities, and agree with the H&P unless as otherwise noted. Assessment and Plan: Wound infection of left BKA revision-- Vancomycin IV per pharmacokinetic monitoring, cefepime IV and clindamycin IV. Consult orthopedics. Consult wound care. Consult infectious disease. Oxycodone 5 mg p.o. every 6 hours as needed moderate pain. Dilaudid 0.5 mg IV every 3 hours as needed severe pain. Note made of conversation by Dr. Houston with plastic surgeon on-call Dr. Avalos at [facility], who reports that the findings on CT are expected postoperative findings, and did not signify an infection by gas-forming organism. Chronic alcoholism-- If in the hospital longer than 2 days, would start AWSS protocol. Remainder of orders notations as noted. Resident Activity Tracking Resident Involvement: Resident Care Provided Care Provided: Adult Hospital Medicine
[2018-11-20] MEDS ORDERED: PROMETHAZINE HCL 25 MG SUPP PR PRN (22:47)
[2018-11-20] MEDS ORDERED: CALCIUM CARBONATE 500 MG CHEWABLE TAB PO PRN (22:47)
[2018-11-20] MEDS ORDERED: SENNA 8.6 MG TAB PO PRN (22:47)
[2018-11-20] MEDS ORDERED: POLYETHYLENE (MIRALAX) 17 GM PACK PO PRN (22:47)
[2018-11-20] MEDS ORDERED: VANCOMYCIN HCL 750 MG in SODIUM CHLORIDE 0.9% 250 ML IV STA (23:12)
[2018-11-20] MEDS: OXYCODONE HCL IR 5 MG TAB (IMMEDIATE RELEASE) PO PRN (23:36)
[2018-11-20] MEDS: ZOLPIDEM TARTRATE 10 MG TAB PO SCH (23:36)
[2018-11-20] MEDS: CLINDAMYCIN 300 MG in DEXTROSE 5% 50 ML IV SCH (23:44)
[2018-11-20] MEDS: SODIUM CHLORIDE 0.9% 1000ML 1,000 ML IV SCH (23:44)
[2018-11-20] MEDS: GABAPENTIN 300 MG CAP PO SCH (23:49)
[2018-11-21] MEDS: OFLOXACIN 0.3% OP SOLN 5 ML BTL OTR SCH ×2 (02:05→08:31)
[2018-11-21] MEDS: HYDROmorphone INJ 0.5 MG/0.5 ML SYR IV PRN ×2 (02:05→05:02)
[2018-11-21] MEDS: OXYCODONE HCL IR 5 MG TAB (IMMEDIATE RELEASE) PO PRN ×3 (03:33→17:40)
[2018-11-21] MEDS: CLINDAMYCIN 300 MG in DEXTROSE 5% 50 ML IV SCH ×3 (05:18→17:40)
[2018-11-21 05:53] LABS: Basophils # (auto) 0.03 K/uL (0-0.2); Basophils % (auto) 0.3 %; Eosinophils # (auto) 0.15 K/uL (0-0.5); Eosinophils % (auto) 1.7 %; Hematocrit (blood only) 33.7 % (37-47); Hemoglobin 11.4 g/dL (12.0-16.0); Immature Granulocytes # (auto) 0.02 K/uL (0.00-0.02); Immature Granulocytes % (auto) 0.2 %; Lymphocytes # (auto) 1.08 K/uL (1.2-3.4); Lymphocytes % (auto) 12.5 %; Mean Corpuscular Hgb Conc 33.8 g/dL (32-36); Mean Corpuscular Volume 89.9 fL (80-100); Mean Platelet Volume 10.3 fL (7.4-10.4); Monocytes # (auto) 0.64 K/uL (0.11-0.59); Monocytes % (auto) 7.4 %; Neutrophils # (auto) 6.75 K/uL (1.4-6.5); Neutrophils % (auto) 77.9 %; Platelet Count 340 K/uL (130-400); RDW Coefficient of Variation 16.8 % (11.5-14.5); RDW Standard Deviation 54.7 fL (36.4-46.3); Red Blood Count 3.75 M/uL (4.2-5.4); White Blood Count 8.67 K/uL (4.8-10.8)
[2018-11-21 05:59] LABS: Prothrombin Time 9.9 Seconds (9.0-12.0)
[2018-11-21] MEDS ORDERED: HYDROmorphone INJ 0.5 MG/0.5 ML SYR IV STA (06:00)
[2018-11-21] MEDS ORDERED: HYDROmorphone INJ 0.5 MG/0.5 ML SYR ONE (06:09)
[2018-11-21 06:23] LABS: Alanine Aminotransferase 12 U/L (12-78); Albumin Level 2.6 gm/dl (3.4-5.0); Aspartate Aminotransferase 13 U/L (15-37); BUN Creatinine Ratio 7.4 (10-20); Blood Urea Nitrogen 5 mg/dl (7-18); Calcium 7.8 mg/dl (8.5-10.1); Carbon Dioxide 25 mmol/L (21-32); Chloride 102 mmol/L (98-107); Creatinine Clr Calc Pharmacy 83.7 ml/min; Est GFR (African American) 111.2; Glucose 76 mg/dl (70-99); Potassium 4.5 mmol/L (3.5-5.1)
[2018-11-21 06:27] LABS: Albumin Globulin Ratio 0.6 (0.9-2); Alkaline Phosphatase 108 U/L (45-117); Bilirubin,Total 0.3 mg/dl (0.2-1); Globulin 4.2 gm/dl (2.5-4.0); Total Protein 6.8 gm/dl (6.4-8.2); Troponin I < 0.015 ng/ml (0-0.045)
[2018-11-21 06:36] LABS: Sodium 134 mmol/L (136-145)
[2018-11-21] MEDS ORDERED: LORazepam 1 MG TAB PO PRN (07:41)
[2018-11-21] MEDS ORDERED: MULTI-VITAMIN INFUSION 10 ML, THIAMINE HCL 100 MG, FOLIC ACID 1 MG in SODIUM CHLORIDE 0... IV SCH (08:00)
[2018-11-21] MEDS: SODIUM CHLORIDE 0.9% 1000ML 1,000 ML IV SCH (08:30)
[2018-11-21] MEDS: PANCREAZE (LIPASE 16,800U) CAP PO SCH ×3 (08:30→16:49)
[2018-11-21] MEDS: CEFEPIME 2,000 MG in SYRINGE 7.5 ML IV SCH ×2 (08:30→21:12)
[2018-11-21] MEDS: THIAMINE HCL 100 MG TAB PO SCH ×3 (08:31→08:35)
[2018-11-21] MEDS: PANTOprazole 40 MG TAB PO SCH (08:31)
[2018-11-21] MEDS: FOLIC ACID 1 MG TAB PO SCH (08:31)
[2018-11-21] MEDS: METOPROLOL TARTRATE 25 MG TAB PO SCH ×2 (08:31→21:10)
[2018-11-21] MEDS: CLOPIDOGREL BISULFATE 75 MG TAB PO SCH (08:31)
[2018-11-21] MEDS: GABAPENTIN 300 MG CAP PO SCH ×3 (08:31→21:11)
[2018-11-21] MEDS: ATORVASTATIN 40 MG TAB PO SCH (08:31)
[2018-11-21] MEDS: HEPARIN SOD 5,000 UNIT/0.5 ML VIAL SQ SCH ×2 (08:32→21:11)
[2018-11-21] MEDS ORDERED: DICLOFENAC SOD 1% GEL 100 GM TUBE EXT PRN (09:00)
--- NOTE | 2018-11-21 09:13 | Pharmacy Report ---
Pharmacy Abx Initial Consult - Date of Service November 21, 2018 - Pharmacy Dosing Scope Date of Consult: 11/20/18 Consultation requested by: Dr. Estrada Pharmacy is consulted to initiate vancomycin IV dosing therapy, order appropriate labs and adjust drug dose/frequency. - Subjective The patient is a 58 year old F admitted on 11/20/18 20:10. - Objective Height: 5 ft 3 in Weight: 72.2 kg Vital Signs (Past 12hrs): Vital Signs Temp Pulse Pulse Resp BP BP Pulse Ox 11/21/18 08:00 98 H 11/21/18 07:54 36.7 C 87 20 125/76 95 11/21/18 05:10 77 151/83 H 11/20/18 22:00 71 13 106/59 L 93 11/20/18 21:30 67 12 96/56 L 91 Lab Results (24hrs): Laboratory Tests (24 Hours) 11/21/18 11/21/18 11/20/18 05:18 05:18 17:23 WBC 8.67 Neut # (Auto) 6.75 H Creatinine 0.69 0.72 Est Cr Clr Drug Dosing 83.7 Not Reportable 11/20/18 17:23 WBC 12.48 H Neut # (Auto) 8.18 H Creatinine Est Cr Clr Drug Dosing Micro Results: 11/20/18 16:45 Gram Stain - Final Leg,Left Deep Wound Culture - Pending 11/20/18 17:25 Blood Culture - Pending Blood 11/20/18 17:23 Blood Culture - Pending Blood - Assessment & Plan Assessment 58 year old F receiving vancomycin, clindamycin, and cefepime IV for infected incisional wound s/p L-BKA * h/o peripheral vascular disease, s/p bilateral femoral endarterectomy on Sep 2016 * Leg CT revealed intraosseous abscess with gas forming organism Plan Vancomycin IV * Estimated PK Parameters: Ricardo 0.074 hr-1, t1/2 9.4 hr * Loading dose: 1000 mg given in the ED + 750 mg IV upon admission (combined loading dose of ~25 mg/kg) * Maintenance dose: 1250 mg IV (17 mg/kg) every 12 hours * Goal trough level for SSTI : 15 to 20 mcg/mL * Trough level ordered for 11/22 Also on cefepime 2000 mg IV q12 and clindamycin 300 mg IV q6h - not per pharm consult Pharmacy will continue to follow and will adjust dose/frequency as necessary. Thank you.
[2018-11-21] MEDS: HYDROmorphone INJ 1 MG/ML SYRINGE IV PRN ×4 (09:15→19:19)
--- NOTE | 2018-11-21 10:05 | Infectious Disease Consult ---
Date of Consultation November 21, 2018 Assessment & Plan (1) Amputation stump infection: continue current abx. follow cultures. orhto eval in progress. local wound care. History of Present Illness Attending Physician: Ирина Hughes MD pt admitted after having increased pain in left bka stump. Had infected hardware of her ankle and was transferred to [facility] [place] [place] for BKA, underwent successfully. She then had difficulty with fitting a prosthesis, she had a revision surgery done at [facility] [place] [place] on 11/03, was doing well post op. Had f/u appt with ortho and plastics on 11/18, she was concerned for infection and was placed on bactrim. She had increased pain through the weekend and then noted bleeding, came to ER. CT leg done in ER - abscess with gas measuring 2.3x1.9x1.5cm. Wound culture done in ER - gram stain with few gpc. Culture pending, blood cultures pending. Given vanco in ER, then placed on cefepime and clinda on admission, tolerating well. ortho in to see patient during my exam. She states she was poisoned by abx during her past hospital stay and needed to be transferred to [facility] [place] [place] for amputation due to "too many abx", does not recall name of abx that she was on. She denies any f/c at home, only c/o pain, states pain meds are not helping. afebrile since admission, initial wbc 12, 8 today. no abd pain, no n/v/ d, no cp, sob, cough. found to have afib, she states she goes into afib when her pain is not controlled. Also h/o daily etoh and tobacco use. eating well. no gu symptoms. denies any bleeding or purulence from wound. dressing not changed yet today, she states she does not want to have her dressing removed during my exam secondary to pain. Allergies Allergy/AdvReac Type Severity Reaction Status Date / Time amoxicillin Allergy Severe LIVER Verified 11/20/18 16:33 FAILURE clavulanic acid Allergy Severe LIVER Verified 11/20/18 16:33 FAILURE adhesive Allergy Mild Verified 11/20/18 16:33 acetaminophen Allergy Unknown LIVER Verified 11/20/18 16:33 DAMAGE-DUE TO FAILURE guanfacine Allergy Unknown Verified 11/20/18 16:33 nifedipine Allergy Unknown Verified 11/20/18 16:33 Home Medications Home Medications Medication Instructions Recorded Confirmed Type amlodipine 10 mg PO QAM 07/18/18 11/20/18 History atorvastatin 80 mg PO QAM 07/18/18 11/20/18 History calcium carbonate [Tums] 200 mg PO QID PRN 07/18/18 11/20/18 History clopidogrel 75 mg PO QAM 07/18/18 11/20/18 History diclofenac sodium 1 applic TOPICAL UD 07/18/18 11/20/18 History metoprolol tartrate 25 mg PO BID 07/18/18 11/20/18 History pantoprazole 40 mg PO QAM 07/18/18 11/20/18 History polyethylene glycol 3350 [Miralax] 17 g PO DAILY PRN 07/18/18 11/20/18 History promethazine 25 mg MA Q6H PRN 07/18/18 11/20/18 History ranitidine HCl 300 mg PO HS 07/18/18 11/20/18 History sennosides [senna] 8.6 mg PO BID PRN 07/18/18 11/20/18 History thiamine HCl (vitamin B1) 100 mg PO QAM 07/18/18 11/20/18 History zolpidem 10 mg PO HS 07/18/18 11/20/18 History Medical Marijuana 1 dose PO DIRECTED 11/20/18 11/20/18 History gabapentin 300 mg PO TID 11/20/18 11/20/18 History oxycodone 5 mg PO Q6 PRN 11/20/18 11/20/18 History sulfamethoxazole-trimethoprim 1 tab PO BID 11/20/18 11/20/18 History Patient History Medical History Chronic alcoholism PVD (peripheral vascular disease) (Chronic) HTN (hypertension) (Chronic) Anxiety Depression (Chronic) Dyslipidemia (Chronic) Paroxysmal atrial fibrillation (Chronic) Acute pancreatitis (Acute) Surgical History History of appendectomy (Chronic) H/O vascular surgery (Chronic) "bilateral femoral endarterectomy with iliac stent 10/02/2016 Dr. Dharmesh Omalley, [facility]" Status post ORIF of fracture of ankle (Chronic) "12/18/16- ORIF closed displaced trimalleolar left ankle fracture; Dr. Fischer" Status post below knee amputation of left lower extremity (Chronic) Social History marital status: Current Living Situation: Spouse Feels Safe at Home: Yes Safety Concerns: Feels Safe At This Time Smoking Status: Current every day smoker Tobacco Type: cigarettes Cigarettes per Day: 20 Hx Alcohol Use: Yes Alcohol type: beer and other Alcohol Intake Frequency: a few times a month Hx Substance Use: Yes Beliefs That Will Affect Care: None Preferred Language: Thai Communication Ability: Effective Cage Clerk Required: No Review of Systems all remaining ros reviewed and are negative Physical Exam 2 Vital Signs (Past 24 Hours): Last Vital Signs Temp 36.7 C 11/21/18 07:54 Pulse 98 H 11/21/18 08:00 Resp 20 11/21/18 07:54 BP 125/76 11/21/18 07:54 Pulse Ox 95 11/21/18 07:54 Constitutional: WD/WN, vitals as above Eyes: PERRL, conjunctivae normal, anicteric sclerae ENMT: external ear and nose normal, oropharynx normal Neck: trachea midline, no thyromegaly Respiratory: normal respiratory effort, lungs clear to auscultation Cardiovascular: Heart Sounds: normal S1 and normal S2; no murmur Gastrointestinal (Abdomen): normal bowel sounds, soft, nontender, no hepatosplenomegaly Musculoskeletal: no cyanosis or clubbing, extremities motor strength 5/5 Skin: no rashes, warm and dry left stump dressing intact, min dried blood on dressing, no purulent drainage noted, no surrounding warmth, erythema. tender to light palpation. refused dressing change Psychiatric: A+Ox3, euthymic affect Results & Data Laboratory Results Microbiology 11/20/18 16:45 Leg,Left Gram Stain - Final
--- NOTE | 2018-11-21 11:06 | Orthopedic Consultation ---
Date of Consultation November 21, 2018 Assessment & Plan (1) Amputation stump infection: I discussed case with Dr Gan who recommended we contact [facility] to discuss patients care and treatment options. I spoke to Dr Lee (orthopedics) who suggested I speak to Plastics. I was able to discuss patient with Dr Camara (plastics) who performed her case on 11-05-18. He recommended Interventional Radiology tap stump and culture. Based on those results if positive possible revision I and D or AKA, and if negative conservative treatment. However, if IR not capable of performing this at [facility] he was comfortable with treating with current antibiotics, following cultures, local wound care and observation with f/u with patient in [place] as scheduled on 11-29-18. However, if medicine/ID feel patient not improving, worsens, becomes septic, then a medicine to medicine transfer to [facility] with consults to Plastics and Orthopedics would be recommended. Dr Gan aware of the above and agrees. Present on Admission?: Yes History of Present Illness Reason for Consultation: left BTK wound infection Requesting Physician: Dr Gan Attending Physician: Ирина Hughes MD History of Present Illness Ms. Garcia is a 58 year old female with a recent revision BKA on 11-03-18 at [facility] by orthopedics Dr Lee and plastics Dr Camara. Per patient surgery was do to tibial neuroma and stump pain preventing use of orthotics. Original BKA was approximately 2yrs ago secondary to infected ORIF of left ankle that failed multiple debridements. She was seen on 11-18-18 (this past Wednesday) by orthopedics at [place]. They started her on Bactrim due to erythema and warmth of the stump. On Wednesday, patient went to [facility] ER due to increased pain and bleeding from the incision with concerns for wound infection. A CT scan was performed and Plastics at [place] were contacted. CT showed ulceration below the knee with significant associated fluid and inflammatory changes tracking to the dital tibia where there is an intraosseous abscess. Intraosseous gas is also noted. Dr Avalos the on-call plastics attending felt these were post-surgical changes. He recommended treating patient wtih broad spectrum antibiotics and monitoring the erythema. Blood and wound cultures were ordered. Still awaiting results other than the gram stain which show moderate WBCs and few Gram Positive Cocci. Patients temperature today is 36.7. Her WBC count improved from 12.4 to 8.6. Patient states she is hoping not to have another procedure. She is somewhat teary due to the pain. She states she was on chronic pain medications prior being admitted and is hoping she can have her pain medication increased. Her past medical history consists of peripheral vascular disease (s/p bilateral femoral endarterectomy on Sep 2016), alcoholism leading to chronic hyponatremia due to polydipsia and beer potomania, chronic pancreatitis, GERD hypertension, anxiety and depression, hyperlipidemia, and paroxysmal atrial fibrillation. She denies fever, chills. She has been eating and drinking well. Her only other complaint is drainage from her right ear, and feeling as though her right ear is congested. She states that she had antibiotics for this a proximally 1 month ago, which improved her symptoms. She states that there are symptoms worsened over the last week. She is a smoker. Her last cigarette was approximately 1 week and a half ago. She has been smoking approximately 1 pack a day for the last 40 years. She has a history of alcoholism, and generally drinks beer on a daily basis. Her last drink was yesterday afternoon. She states she has cut back and no longer drinks beer on a daily basis. She denies having gone into alcohol withdrawals in the past. She is on aspirin and Plavix. She was on Coumadin in the past for her paroxysmal atrial fibrillation, but this was stopped due to a high bleeding risk Allergies Allergy/AdvReac Type Severity Reaction Status Date / Time amoxicillin Allergy Severe LIVER Verified 11/20/18 16:33 FAILURE clavulanic acid Allergy Severe LIVER Verified 11/20/18 16:33 FAILURE adhesive Allergy Mild Verified 11/20/18 16:33 acetaminophen Allergy Unknown LIVER Verified 11/20/18 16:33 DAMAGE-DUE TO FAILURE guanfacine Allergy Unknown Verified 11/20/18 16:33 nifedipine Allergy Unknown Verified 11/20/18 16:33 Home Medications Home Medications Medication Instructions Recorded Confirmed Type amlodipine 10 mg PO QAM 07/18/18 11/20/18 History atorvastatin 80 mg PO QAM 07/18/18 11/20/18 History calcium carbonate [Tums] 200 mg PO QID PRN 07/18/18 11/20/18 History clopidogrel 75 mg PO QAM 07/18/18 11/20/18 History diclofenac sodium 1 applic TOPICAL UD 07/18/18 11/20/18 History metoprolol tartrate 25 mg PO BID 07/18/18 11/20/18 History pantoprazole 40 mg PO QAM 07/18/18 11/20/18 History polyethylene glycol 3350 [Miralax] 17 g PO DAILY PRN 07/18/18 11/20/18 History promethazine 25 mg SD Q6H PRN 07/18/18 11/20/18 History ranitidine HCl 300 mg PO HS 07/18/18 11/20/18 History sennosides [senna] 8.6 mg PO BID PRN 07/18/18 11/20/18 History thiamine HCl (vitamin B1) 100 mg PO QAM 07/18/18 11/20/18 History zolpidem 10 mg PO HS 07/18/18 11/20/18 History Medical Marijuana 1 dose PO DIRECTED 11/20/18 11/20/18 History gabapentin 300 mg PO TID 11/20/18 11/20/18 History oxycodone 5 mg PO Q6 PRN 11/20/18 11/20/18 History sulfamethoxazole-trimethoprim 1 tab PO BID 11/20/18 11/20/18 History Patient History Medical History Chronic alcoholism PVD (peripheral vascular disease) (Chronic) HTN (hypertension) (Chronic) Anxiety Depression (Chronic) Dyslipidemia (Chronic) Paroxysmal atrial fibrillation (Chronic) Acute pancreatitis (Acute) Surgical History History of appendectomy (Chronic) H/O vascular surgery (Chronic) "bilateral femoral endarterectomy with iliac stent 10/02/2016 Dr. Dharmesh Omalley, [facility]" Status post ORIF of fracture of ankle (Chronic) "12/18/16- ORIF closed displaced trimalleolar left ankle fracture; Dr. Fischer" Status post below knee amputation of left lower extremity (Chronic) Social History marital status: Current Living Situation: Spouse Feels Safe at Home: Yes Safety Concerns: Feels Safe At This Time Smoking Status: Current every day smoker Tobacco Type: cigarettes Cigarettes per Day: 20 Hx Alcohol Use: Yes Alcohol type: beer and other Alcohol Intake Frequency: a few times a month Hx Substance Use: Yes Beliefs That Will Affect Care: None Preferred Language: Bolivian Communication Ability: Effective Pole Framer Machine Required: No Review of Systems Patient admits to left BKA stump pain. Right ear congestion. Denies fever chills, sweats, chest pain, shortness of breath. Otherwise 14 point ROS reviewed and negative. Physical Exam 2 Vital Signs (Past 24 Hours): Last Vital Signs Temp 36.7 C 11/21/18 07:54 Pulse 98 H 11/21/18 08:00 Resp 20 11/21/18 07:54 BP 125/76 11/21/18 07:54 Pulse Ox 95 11/21/18 07:54 Constitutional: no acute distress ENMT: no external ear abnormality of right ear Musculoskeletal: no cyanosis or clubbing, extremities motor strength 5/5 ( other than right BKA) Patient is NV intact to RLE with present dorsalis pedis pulse and normal capillary refill. Right LE BKA: Sutures in place. Separation of medial incision. Mild Serosanguineous drainage noted. Erythema and tenderness surrounding sutures, not extending beyond line drawn in ED. No erythematous streaks up leg/thigh. No pus. No foul odor. Skin: no rashes, warm and dry (to all other body parts other than right BKA) Psychiatric: A+Ox3, euthymic affect Results & Data Laboratory Results 11/21/18 11/21/18 11/21/18 Range/Units 05:18 05:18 05:18 WBC 8.67 (4.8-10.8) K/uL RBC 3.75 L (4.2-5.4) M/uL Hgb 11.4 L (12.0-16.0) g/dL Hct 33.7 L (37-47) % MCV 89.9 (80-100) fL MCH 30.4 (25-34) pg MCHC 33.8 (32-36) g/dL RDW Std Deviation 54.7 H (36.4-46.3) fL RDW Coeff of Marlon 16.8 H (11.5-14.5) % Plt Count 340 (130-400) K/uL MPV 10.3 (7.4-10.4) fL Immature Gran % (Auto) 0.2 % Neut % (Auto) 77.9 % Lymph % (Auto) 12.5 % [place] % (Auto) 7.4 % Eos % (Auto) 1.7 % Baso % (Auto) 0.3 % Immature Gran # (Auto) 0.02 (0.00-0.02) K/uL Neut # (Auto) 6.75 H (1.4-6.5) K/uL Lymph # (Auto) 1.08 L (1.2-3.4) K/uL [place] # (Auto) 0.64 H (0.11-0.59) K/uL Eos # (Auto) 0.15 (0-0.5) K/uL Baso # (Auto) 0.03 (0-0.2) K/uL PT 9.9 (9.0-12.0) Seconds INR 1.0 (0.9-1.1) Sodium 134 L D (136-145) mmol/L Potassium 4.5 (3.5-5.1) mmol/L Chloride 102 (98-107) mmol/L Carbon Dioxide 25 (21-32) mmol/L Anion Gap 7.0 (3-11) BUN 5 L (7-18) mg/dl Creatinine 0.69 (0.6-1.2) mg/dl Est Cr Clr Drug Dosing 83.7 Est GFR ( Amer) 111.2 Est GFR (Non-Af Amer) 96.0 BUN/Creatinine Ratio 7.4 L (10-20) Glucose 76 (70-99) mg/dl Calcium 7.8 L (8.5-10.1) mg/dl Total Bilirubin 0.3 (0.2-1) mg/dl AST 13 L (15-37) U/L ALT 12 (12-78) U/L Alkaline Phosphatase 108 (45-117) U/L Troponin I < 0.015 (0-0.045) ng/ml Total Protein 6.8 (6.4-8.2) gm/dl Albumin 2.6 L (3.4-5.0) gm/dl Globulin 4.2 H (2.5-4.0) gm/dl Albumin/Globulin Ratio 0.6 L (0.9-2) 11/20/18 11/20/18 Range/Units 17:23 17:23 WBC 12.48 H (4.8-10.8) K/uL RBC 3.96 L (4.2-5.4) M/uL Hgb 12.0 (12.0-16.0) g/dL Hct 35.4 L (37-47) % MCV 89.4 (80-100) fL MCH 30.3 (25-34) pg MCHC 33.9 (32-36) g/dL RDW Std Deviation 54.3 H (36.4-46.3) fL RDW Coeff of Marlon 16.5 H (11.5-14.5) % Plt Count 372 (130-400) K/uL MPV 9.9 (7.4-10.4) fL Immature Gran % (Auto) 0.8 % Neut % (Auto) 65.5 % Lymph % (Auto) 21.7 % [place] % (Auto) 8.7 % Eos % (Auto) 2.7 % Baso % (Auto) 0.6 % Immature Gran # (Auto) 0.10 H (0.00-0.02) K/uL Neut # (Auto) 8.18 H (1.4-6.5) K/uL Lymph # (Auto) 2.71 (1.2-3.4) K/uL [place] # (Auto) 1.08 H (0.11-0.59) K/uL Eos # (Auto) 0.34 (0-0.5) K/uL Baso # (Auto) 0.07 (0-0.2) K/uL PT (9.0-12.0) Seconds INR (0.9-1.1) Sodium 127 L (136-145) mmol/L Potassium 4.2 (3.5-5.1) mmol/L Chloride 97 L (98-107) mmol/L Carbon Dioxide 22 (21-32) mmol/L Anion Gap 8.0 (3-11) BUN 4 L (7-18) mg/dl Creatinine 0.72 (0.6-1.2) mg/dl Est Cr Clr Drug Dosing Not Reportable Est GFR ( Amer) 107.0 Est GFR (Non-Af Amer) 92.3 BUN/Creatinine Ratio 5.7 L (10-20) Glucose 85 (70-99) mg/dl Calcium 7.8 L (8.5-10.1) mg/dl Total Bilirubin (0.2-1) mg/dl AST (15-37) U/L ALT (12-78) U/L Alkaline Phosphatase (45-117) U/L Troponin I (0-0.045) ng/ml Total Protein (6.4-8.2) gm/dl Albumin (3.4-5.0) gm/dl Globulin (2.5-4.0) gm/dl Albumin/Globulin Ratio (0.9-2)
--- NOTE | 2018-11-21 13:47 | Hospitalist Progress Note ---
Date of Service November 21, 2018 Assessment & Plan (1) Amputation stump infection: Ms. Garcia is a 58 year old female with a past medical history of peripheral vascular disease (s/p bilateral femoral endarterectomy on Sep 2016), left BKA, alcoholism leading to chronic hyponatremia due to polydipsia and beer potomania, chronic pancreatitis, GERD hypertension, anxiety and depression, hyperlipidemia, and paroxysmal atrial fibrillation who presented to the ED due to concerns regarding a wound infection of the incision on her left BKA. -Wound seems to have opened up and is draining on its own. Wound cultures are now growing Staphylococcus species Appreciate orthopedic consultation here-I discussed the case on the phone with MAYI Johnson who talked to the patient's plastic surgeon on the phone today. Recommendation is as long as she is not septic, to continue IV antibiotics. If possible, get interventional radiology to drain although that is not available here. Although I do not feel this is necessary at this time as the wound is open and draining. -Leukocytosis is resolved today, erythema seems to be improving, remains afebrile and no signs of sepsis -Continue wound care locally -Appreciate infectious disease consultation-awaiting culture results -Lower extremity CT shows ulceration below the knee with significant associated fluid and inflammatory changes tracking to the distal tibia, where there is a possible intraosseous abscess. Intraosseous gas is also noted. ER physician Dr. Houston called the on-call plastic surgeon at [place] (Dr. Avalos), who stated that these were normal postsurgical changes seen on CT, and that the patient did not require transfer to [place] at this time. He recommended treating with broad-spectrum antibiotics, and keeping a close eye to make sure that the erythema did not extend beyond the line drawn in the ED. -Continue cefepime, clindamycin and vancomycin -Follow-up blood and wound cultures -Infectious disease consult placed, patient will likely need PICC line prior to discharge for long-term antibiotics -Increased dose of oxycodone to 10 mg every 6 hours as needed, with Dilaudid 1 mg IV every 3 hours as needed for breakthrough pain -Continue gabapentin for phantom limb pain, post BKA (2) Chronic alcoholism: -Last alcoholic beverage was earlier on the day of admission although patient reports she is only had one beer in the last month -Monitor for signs and symptoms of withdrawal -Patient states that she has not had alcohol withdrawal symptoms before -Continue thiamine supplementation (3) Chronic pancreatitis: -Patient has a history of chronic abdominal discomfort and requires daily narcotics for this -Chronic pancreatitis is secondary to repeated acute pancreatitis that were induced by alcohol -Started home Creon (4) PVD (peripheral vascular disease): -Continue Plavix and added aspirin back as this is also 1 of her home meds -Continue statin (5) HTN (hypertension): Blood pressures are controlled, she was hypotensive on admission which is resolved -Continue to hold home amlodipine, can restart when blood pressure allows -Continue metoprolol (6) Dyslipidemia: -Continue home atorvastatin (7) Paroxysmal atrial fibrillation: With intermittent atrial fibrillation here -continue home metoprolol w/hold parameters -Patient states that she is not on anticoagulation due to prior concerns regarding bleeding (8) Hyponatremia: -Chronic hyponatremia secondary to polydipsia and beer potomania, sodium improved today to 134 with IV normal saline -Sodium level 127 on admission -Okay to DC IV fluids -Liberalize salt in diet-change from heart healthy to regular diet -Follow BMP in the morning (9) Otitis externa: -Examination of right ear consistent with otitis externa on admission -Continue ofloxacin drops in 7 days (10) GERD (gastroesophageal reflux disease): -continue home pantoprazole and ranitidine (11) Tobacco use disorder: -Consider nicotine patch -Smoking cessation encouraged (12) DVT prophylaxis: 5000 units of heparin twice daily Disposition: Continue telemetry monitoring Subjective Patient reports her pain meds here are not high enough of a dose that she is on long-term opioids and has a high tolerance. She is having a lot of pain and drainage from the knee. She is also upset that she has a heart healthy diet and says she needs sodium in her diet or else her sodium goes too low. She reports that she had one beer on Wednesday but had not had any beer for a month before that. She is also supposed to be on daily aspirin-added this to the home med list and to her inpatient med list Telemetry with intermittent atrial fibrillation alternating with normal sinus rhythm Review of Systems All systems reviewed & are unremarkable except as noted in HPI & below (Denies chest pain or shortness of breath, denies abdominal pain or diarrhea) Physical Exam 2 Vital Signs (Past 24 Hours): Last Vital Signs Temp 36.9 C 11/21/18 11:52 Pulse 72 11/21/18 11:52 Resp 18 11/21/18 11:52 BP 138/78 11/21/18 11:52 Pulse Ox 94 11/21/18 11:52 Constitutional: WD/WN, vitals as above Eyes: PERRL, conjunctivae normal, anicteric sclerae ENMT: external ear and nose normal, oropharynx normal Neck: trachea midline, no thyromegaly Respiratory: normal respiratory effort, lungs clear to auscultation Cardiovascular: RRR, no murmur, no edema Gastrointestinal (Abdomen): normal bowel sounds, soft, nontender, no hepatosplenomegaly Musculoskeletal: Extremities: + extremities abnormal to inspection (Left lower extremity with BKA with wound as below), no cyanosis and no clubbing Skin: + wound (Left BKA stump with incision which is dehisced with purulent drainage soaked into the dressing but erythema is receding from the previously drawn black marker line) Neurologic: moves all extremities and awake; no focal motor deficits Psychiatric: A+Ox3, euthymic affect Results & Data Laboratory Results 11/21/18 11/21/18 11/21/18 Range/Units 05:18 05:18 05:18 WBC 8.67 (4.8-10.8) K/uL RBC 3.75 L (4.2-5.4) M/uL Hgb 11.4 L (12.0-16.0) g/dL Hct 33.7 L (37-47) % MCV 89.9 (80-100) fL MCH 30.4 (25-34) pg MCHC 33.8 (32-36) g/dL RDW Std Deviation 54.7 H (36.4-46.3) fL RDW Coeff of Marlon 16.8 H (11.5-14.5) % Plt Count 340 (130-400) K/uL MPV 10.3 (7.4-10.4) fL Immature Gran % (Auto) 0.2 % Neut % (Auto) 77.9 % Lymph % (Auto) 12.5 % [place] % (Auto) 7.4 % Eos % (Auto) 1.7 % Baso % (Auto) 0.3 % Immature Gran # (Auto) 0.02 (0.00-0.02) K/uL Neut # (Auto) 6.75 H (1.4-6.5) K/uL Lymph # (Auto) 1.08 L (1.2-3.4) K/uL [place] # (Auto) 0.64 H (0.11-0.59) K/uL Eos # (Auto) 0.15 (0-0.5) K/uL Baso # (Auto) 0.03 (0-0.2) K/uL PT 9.9 (9.0-12.0) Seconds INR 1.0 (0.9-1.1) Sodium 134 L D (136-145) mmol/L Potassium 4.5 (3.5-5.1) mmol/L Chloride 102 (98-107) mmol/L Carbon Dioxide 25 (21-32) mmol/L Anion Gap 7.0 (3-11) BUN 5 L (7-18) mg/dl Creatinine 0.69 (0.6-1.2) mg/dl Est Cr Clr Drug Dosing 83.7 Est GFR ( Amer) 111.2 Est GFR (Non-Af Amer) 96.0 BUN/Creatinine Ratio 7.4 L (10-20) Glucose 76 (70-99) mg/dl Calcium 7.8 L (8.5-10.1) mg/dl Total Bilirubin 0.3 (0.2-1) mg/dl AST 13 L (15-37) U/L ALT 12 (12-78) U/L Alkaline Phosphatase 108 (45-117) U/L Troponin I < 0.015 (0-0.045) ng/ml Total Protein 6.8 (6.4-8.2) gm/dl Albumin 2.6 L (3.4-5.0) gm/dl Globulin 4.2 H (2.5-4.0) gm/dl Albumin/Globulin Ratio 0.6 L (0.9-2) 11/20/18 11/20/18 Range/Units 17:23 17:23 WBC 12.48 H (4.8-10.8) K/uL RBC 3.96 L (4.2-5.4) M/uL Hgb 12.0 (12.0-16.0) g/dL Hct 35.4 L (37-47) % MCV 89.4 (80-100) fL MCH 30.3 (25-34) pg MCHC 33.9 (32-36) g/dL RDW Std Deviation 54.3 H (36.4-46.3) fL RDW Coeff of Marlon 16.5 H (11.5-14.5) % Plt Count 372 (130-400) K/uL MPV 9.9 (7.4-10.4) fL Immature Gran % (Auto) 0.8 % Neut % (Auto) 65.5 % Lymph % (Auto) 21.7 % [place] % (Auto) 8.7 % Eos % (Auto) 2.7 % Baso % (Auto) 0.6 % Immature Gran # (Auto) 0.10 H (0.00-0.02) K/uL Neut # (Auto) 8.18 H (1.4-6.5) K/uL Lymph # (Auto) 2.71 (1.2-3.4) K/uL [place] # (Auto) 1.08 H (0.11-0.59) K/uL Eos # (Auto) 0.34 (0-0.5) K/uL Baso # (Auto) 0.07 (0-0.2) K/uL PT (9.0-12.0) Seconds INR (0.9-1.1) Sodium 127 L (136-145) mmol/L Potassium 4.2 (3.5-5.1) mmol/L Chloride 97 L (98-107) mmol/L Carbon Dioxide 22 (21-32) mmol/L Anion Gap 8.0 (3-11) BUN 4 L (7-18) mg/dl Creatinine 0.72 (0.6-1.2) mg/dl Est Cr Clr Drug Dosing Not Reportable Est GFR ( Amer) 107.0 Est GFR (Non-Af Amer) 92.3 BUN/Creatinine Ratio 5.7 L (10-20) Glucose 85 (70-99) mg/dl Calcium 7.8 L (8.5-10.1) mg/dl Total Bilirubin (0.2-1) mg/dl AST (15-37) U/L ALT (12-78) U/L Alkaline Phosphatase (45-117) U/L Troponin I (0-0.045) ng/ml Total Protein (6.4-8.2) gm/dl Albumin (3.4-5.0) gm/dl Globulin (2.5-4.0) gm/dl Albumin/Globulin Ratio (0.9-2) _ (1) HTN (hypertension) Hypertension type: essential hypertension Qualified Code(s): I10 - Essential (primary) hypertension
[2018-11-21] MEDS: ASPIRIN 81 MG ECTAB PO SCH (16:50)
[2018-11-21] MEDS: ZOLPIDEM TARTRATE 10 MG TAB PO SCH (21:18)
[2018-11-22] MEDS: CLINDAMYCIN 300 MG in DEXTROSE 5% 50 ML IV SCH ×3 (00:11→13:04)
[2018-11-22] MEDS: HYDROmorphone INJ 1 MG/ML SYRINGE IV PRN ×8 (01:15→21:54)
[2018-11-22] MEDS: OXYCODONE HCL IR 5 MG TAB (IMMEDIATE RELEASE) PO PRN ×4 (02:38→23:13)
[2018-11-22] MEDS: PANCREAZE (LIPASE 16,800U) CAP PO SCH ×3 (08:07→16:55)
[2018-11-22] MEDS: METOPROLOL TARTRATE 25 MG TAB PO SCH ×2 (08:09→20:20)
[2018-11-22] MEDS: ATORVASTATIN 40 MG TAB PO SCH (08:09)
[2018-11-22] MEDS: CLOPIDOGREL BISULFATE 75 MG TAB PO SCH (08:10)
[2018-11-22] MEDS: PANTOprazole 40 MG TAB PO SCH (08:10)
[2018-11-22] MEDS: GABAPENTIN 300 MG CAP PO SCH ×3 (08:10→20:20)
[2018-11-22] MEDS: OFLOXACIN 0.3% OP SOLN 5 ML BTL OTR SCH (08:10)
[2018-11-22] MEDS: THIAMINE HCL 100 MG TAB PO SCH ×2 (08:11)
[2018-11-22] MEDS: HEPARIN SOD 5,000 UNIT/0.5 ML VIAL SQ SCH ×2 (08:12→20:21)
[2018-11-22] MEDS: FOLIC ACID 1 MG TAB PO SCH (08:12)
[2018-11-22] MEDS: CEFEPIME 2,000 MG in SYRINGE 7.5 ML IV SCH (08:19)
[2018-11-22] MEDS ORDERED: VANCOMYCIN TROUGH ONE (09:30)
[2018-11-22 09:41] LABS: Basophils # (auto) 0.04 K/uL (0-0.2); Basophils % (auto) 0.6 %; Eosinophils # (auto) 0.24 K/uL (0-0.5); Eosinophils % (auto) 3.8 %; Hematocrit (blood only) 33.7 % (37-47); Hemoglobin 11.1 g/dL (12.0-16.0); Immature Granulocytes # (auto) 0.02 K/uL (0.00-0.02); Immature Granulocytes % (auto) 0.3 %; Lymphocytes # (auto) 1.22 K/uL (1.2-3.4); Lymphocytes % (auto) 19.2 %; Mean Corpuscular Hgb Conc 32.9 g/dL (32-36); Mean Corpuscular Volume 90.6 fL (80-100); Mean Platelet Volume 9.8 fL (7.4-10.4); Monocytes # (auto) 0.76 K/uL (0.11-0.59); Monocytes % (auto) 11.9 %; Neutrophils # (auto) 4.08 K/uL (1.4-6.5); Neutrophils % (auto) 64.2 %; Platelet Count 298 K/uL (130-400); RDW Coefficient of Variation 16.5 % (11.5-14.5); RDW Standard Deviation 54.6 fL (36.4-46.3); Red Blood Count 3.72 M/uL (4.2-5.4); White Blood Count 6.36 K/uL (4.8-10.8)
[2018-11-22] MEDS: ASPIRIN 81 MG ECTAB PO SCH (10:00)
[2018-11-22 10:13] LABS: BUN Creatinine Ratio 8.7 (10-20); Calcium 8.4 mg/dl (8.5-10.1); Creatinine Clr Calc Pharmacy 89.2 ml/min; Est GFR (African American) 113.4; Est GFR (Non-African American) 97.9; Magnesium 2.1 mg/dl (1.8-2.4); Potassium 4.2 mmol/L (3.5-5.1)
[2018-11-22] MEDS ORDERED: HYDROmorphone INJ 1 MG/ML SYRINGE IV STA (10:41)
--- NOTE | 2018-11-22 10:58 | Pharmacy Report ---
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 Thank you.
[2018-11-22] MEDS ORDERED: VANCOMYCIN HCL 1,750 MG in SODIUM CHLORIDE 0.9% 500 ML IV ONE (11:00)
--- NOTE | 2018-11-22 15:00 | Hospitalist Progress Note ---
Date of Service November 22, 2018 Assessment & Plan (1) Amputation stump infection: Ms. Garcia is a 58 year old female with a past medical history of peripheral vascular disease (s/p bilateral femoral endarterectomy on Sep 2016), left BKA, alcoholism leading to chronic hyponatremia due to polydipsia and beer potomania, chronic pancreatitis, GERD hypertension, anxiety and depression, hyperlipidemia, and paroxysmal atrial fibrillation who presented to the ED due to concerns regarding a wound infection of the incision on her left BKA. -Lower extremity CT shows ulceration below the knee with significant associated fluid and inflammatory changes tracking to the distal tibia, where there is a possible intraosseous abscess. Intraosseous gas is also noted. ER physician Dr. Houston called the on-call plastic surgeon at [facility] (Dr. Avalos), who stated that these were normal postsurgical changes seen on CT, and that the patient did not require transfer to [facility] at the time of admission. He recommended treating with broad-spectrum antibiotics, and keeping a close eye to make sure that the erythema did not extend beyond the line drawn in the ED. -Wound has now dehisced and is draining on its own. Wound cultures with MRSA Appreciate orthopedic consultation here-I discussed the case on the phone with MAYI Johnson who talked to the patient's plastic surgeon on the phone on 11/21. Recommendation is as long as she is not septic, to continue IV antibiotics. If possible, get interventional radiology to drain although that is not available here. Although I do not feel this is necessary at this time as the wound is open and draining. -Leukocytosis is resolved, erythema seems to be improving, remains afebrile and no signs of sepsis -Continue wound care locally -Appreciate infectious disease consultation-DC cefepime, vancomycin, clindamycin today -Start daptomycin and will need multiple weeks of IV antibiotics -Place PICC line today -Follow-up blood cultures -Continue pain control with oxycodone 10 mg every 6 hours as needed, and increase the frequency of the Dilaudid 1 mg IV every 2 hours as needed for breakthrough pain -Continue gabapentin for phantom limb pain, post BKA (2) Chronic alcoholism: -Last alcoholic beverage was earlier on the day of admission although patient reports she is only had one beer in the last month -Monitor for signs and symptoms of withdrawal -Patient states that she has not had alcohol withdrawal symptoms before -Continue thiamine supplementation (3) Chronic pancreatitis: -Patient has a history of chronic abdominal discomfort and requires daily narcotics for this -Chronic pancreatitis is secondary to repeated acute pancreatitis that were induced by alcohol -Continue home Creon (4) PVD (peripheral vascular disease): -Continue Plavix and aspirin -Continue statin (5) HTN (hypertension): Blood pressures are controlled, she was hypotensive on admission which is resolved -Continue to hold home amlodipine, can restart when blood pressure allows -Continue metoprolol (6) Dyslipidemia: -Continue home atorvastatin (7) Paroxysmal atrial fibrillation: Continues with intermittent atrial fibrillation here -continue home metoprolol w/hold parameters -Patient states that she is not on anticoagulation due to prior concerns regarding bleeding (8) Hyponatremia: -Chronic hyponatremia secondary to polydipsia and beer potomania, sodium slightly worse today compared to yesterday at 130 -Sodium level 127 on admission -Liberalize salt in diet-can have a regular diet -Follow BMP in the morning (9) Otitis externa: -Examination of right ear consistent with otitis externa on admission Not much improvement so far -Continue ofloxacin drops x 7 days-today is day #3 (10) GERD (gastroesophageal reflux disease): -continue home pantoprazole and ranitidine (11) Tobacco use disorder: -Consider nicotine patch -Smoking cessation encouraged (12) DVT prophylaxis: 5000 units of heparin twice daily Disposition: Continue telemetry monitoring, continue IV antibiotics and work on approval of home IV antibiotics for daptomycin, continue wound care and will need wound care clinic follow-up She has an appointment with her surgeon on 11/29/18 Subjective Patient was having a lot of pain in her stomach today but is now improved with increasing the frequency of Dilaudid. Denies any other issues. She has been afebrile. I discussed the case with infectious disease at the bedside. The patient is agreeable to a PICC line and consent was obtained. We will be switching to daptomycin and hoping for approval from insurance for home antibiotic use. She continues to drain quite a bit of purulence from the stump wound. Review of Systems All systems reviewed & are unremarkable except as noted in HPI & below Physical Exam 2 Vital Signs (Past 24 Hours): Last Vital Signs Temp 36.8 C 11/22/18 11:53 Pulse 65 11/22/18 11:53 Resp 18 11/22/18 11:53 BP 137/78 02/26/19 11:53 Pulse Ox 95 11/22/18 11:53 Constitutional: WD/WN, vitals as above Eyes: PERRL, conjunctivae normal, anicteric sclerae ENMT: Ears: + external ear abnormality (With dried blood and mild erythema of the right ear) Neck: trachea midline, no thyromegaly Respiratory: normal respiratory effort, lungs clear to auscultation Cardiovascular: RRR, no murmur, no edema Gastrointestinal (Abdomen): normal bowel sounds, soft, nontender, no hepatosplenomegaly Musculoskeletal: Extremities: + extremities abnormal to inspection (Left lower extremity with BKA with wound as below), no cyanosis and no clubbing Skin: no rashes, warm and dry + wound (Left BKA stump with incision which is further dehisced today with increased amount of purulent drainage soaked into the dressing but erythema is receding from the previously drawn black marker line, also with visible muscle) Neurologic: moves all extremities and awake; no focal motor deficits Psychiatric: A+Ox3, euthymic affect Results & Data Laboratory Results 11/22/18 11/22/18 11/22/18 Range/Units 09:28 09:28 09:28 WBC 6.36 (4.8-10.8) K/uL RBC 3.72 L (4.2-5.4) M/uL Hgb 11.1 L (12.0-16.0) g/dL Hct 33.7 L (37-47) % MCV 90.6 (80-100) fL MCH 29.8 (25-34) pg MCHC 32.9 (32-36) g/dL RDW Std Deviation 54.6 H (36.4-46.3) fL RDW Coeff of Marlon 16.5 H (11.5-14.5) % Plt Count 298 (130-400) K/uL MPV 9.8 (7.4-10.4) fL Immature Gran % (Auto) 0.3 % Neut % (Auto) 64.2 % Lymph % (Auto) 19.2 % [place] % (Auto) 11.9 % Eos % (Auto) 3.8 % Baso % (Auto) 0.6 % Immature Gran # (Auto) 0.02 (0.00-0.02) K/uL Neut # (Auto) 4.08 (1.4-6.5) K/uL Lymph # (Auto) 1.22 (1.2-3.4) K/uL [place] # (Auto) 0.76 H (0.11-0.59) K/uL Eos # (Auto) 0.24 (0-0.5) K/uL Baso # (Auto) 0.04 (0-0.2) K/uL Sodium 130 L (136-145) mmol/L Potassium 4.2 (3.5-5.1) mmol/L Chloride 98 (98-107) mmol/L Carbon Dioxide 27 (21-32) mmol/L Anion Gap 5.0 (3-11) BUN 6 L (7-18) mg/dl Creatinine 0.65 (0.6-1.2) mg/dl Est Cr Clr Drug Dosing 89.2 ml/min Est GFR ( Amer) 113.4 Est GFR (Non-Af Amer) 97.9 BUN/Creatinine Ratio 8.7 L (10-20) Glucose 92 (70-99) mg/dl Calcium 8.4 L (8.5-10.1) mg/dl Magnesium 2.1 (1.8-2.4) mg/dl Vancomycin Trough 3.1 (See Comment) mcg/ml Wound culture with MRSA intermediate sensitivity to tetracycline and sensitive to clindamycin Blood cultures no growth to date _ (1) HTN (hypertension) Hypertension type: essential hypertension Qualified Code(s): I10 - Essential (primary) hypertension
--- NOTE | 2018-11-22 15:00 | Infectious Disease Progress Nt ---
Date of Service November 22, 2018 Assessment & Plan (1) Amputation stump infection: will change to dapto, follow respsone. would benefit from wound care eval. continue local wound care. will check inflammatory markers, pt asking to have this done tomorrow. ok for picc line. pt is agreeable to care home IV abx at home as long as she is not given augmentin. Subjective culture growing MRSA. remains on cefepime and clinda. No plans for OR, ortho eval reviewed, wound open and draining. Per chart, after review with [facility], only surgical plan at this point would be AKA and pt does not want this, she would prefer conservative approach with IV abx. Unclear if tibia involved, will check inflammatroy markers. will change to Dapto. spoke with primary service, pt agreeable to picc line. no f/c. blood cultures remain negative. no abd pain no n /v/d. pain better controlled today. tolerating abx. all remaining ros reviewed and are negative. Physical Exam 2 Vital Signs (Past 24 Hours): Last Vital Signs Temp 36.8 C 11/22/18 11:53 Pulse 65 11/22/18 11:53 Resp 18 11/22/18 11:53 BP 137/78 11/22/18 11:53 Pulse Ox 95 11/22/18 11:53 Constitutional: WD/WN, vitals as above Eyes: PERRL, conjunctivae normal, anicteric sclerae ENMT: external ear and nose normal, oropharynx normal Neck: trachea midline, no thyromegaly Respiratory: normal respiratory effort, lungs clear to auscultation Cardiovascular: Heart Sounds: normal S1 and normal S2; no murmur Gastrointestinal (Abdomen): normal bowel sounds, soft, nontender, no hepatosplenomegaly Musculoskeletal: no cyanosis or clubbing, extremities motor strength 5/5 Skin: no rashes, warm and dry dressing c/d/i, refused dressing removal, I was able to review photo on pt cell phone, wound open, necrotic base, surroudning erythema. Psychiatric: A+Ox3, euthymic affect Results & Data Laboratory Results Microbiology 11/20/18 16:45 Leg,Left Gram Stain - Final 11/20/18 16:45 Leg,Left Deep Wound Culture - Preliminary Staph aureus MRSA 11/20/18 17:25 Blood Blood Culture - Preliminary No growth to date. 11/20/18 17:23 Blood Blood Culture - Preliminary No growth to date.
--- NOTE | 2018-11-22 16:34 | XRay Report ---
XR chest 1V portable CLINICAL HISTORY: right PICC tip placement COMPARISON STUDY: Chest radiograph July 18, 2018. FINDINGS: Tip of right PICC projects over the distal SVC. There is no pneumothorax or pleural effusio n. Mild left basilar opacity favors atelectasis. Cardiac size is normal. Mediastinal contours are nor mal. There is no evidence for pulmonary edema. IMPRESSION: 1. Tip of right PICC projects of the distal SVC. 2. Mild left basilar opacity which favors atelectasis. Electronically signed by: Diogo Johnson M.D. 11/22/2018 4:33 PM
[2018-11-22] MEDS: DAPTOmycin 325 MG in SYRINGE 0 ML IV SCH (16:51)
[2018-11-22] MEDS ORDERED: VANCOMYCIN HCL 1,250 MG in SODIUM CHLORIDE 0.9% 250 ML IV SCH (20:00)
[2018-11-22] MEDS: ZOLPIDEM TARTRATE 10 MG TAB PO SCH (20:26)
[2018-11-23] MEDS: HYDROmorphone INJ 1 MG/ML SYRINGE IV PRN ×10 (00:02→23:54)
[2018-11-23] MEDS: OXYCODONE HCL IR 5 MG TAB (IMMEDIATE RELEASE) PO PRN ×3 (06:24→19:16)
[2018-11-23 06:32] LABS: Basophils # (auto) 0.02 K/uL (0-0.2); Basophils % (auto) 0.2 %; Eosinophils % (auto) 4.7 %; Hematocrit (blood only) 29.7 % (37-47); Hemoglobin 9.4 g/dL (12.0-16.0); Immature Granulocytes # (auto) 0.03 K/uL (0.00-0.02); Immature Granulocytes % (auto) 0.3 %; Lymphocytes # (auto) 1.86 K/uL (1.2-3.4); Lymphocytes % (auto) 21.7 %; Mean Corpuscular Hgb Conc 31.6 g/dL (32-36); Mean Corpuscular Volume 91.1 fL (80-100); Mean Platelet Volume 10.2 fL (7.4-10.4); Monocytes # (auto) 0.73 K/uL (0.11-0.59); Monocytes % (auto) 8.5 %; Neutrophils # (auto) 5.55 K/uL (1.4-6.5); Neutrophils % (auto) 64.6 %; Platelet Count 281 K/uL (130-400); RDW Coefficient of Variation 16.6 % (11.5-14.5); RDW Standard Deviation 55.2 fL (36.4-46.3); Red Blood Count 3.26 M/uL (4.2-5.4); White Blood Count 8.59 K/uL (4.8-10.8)
[2018-11-23 07:10] LABS: Alanine Aminotransferase 12 U/L (12-78); Albumin Level 2.5 gm/dl (3.4-5.0); Aspartate Aminotransferase 13 U/L (15-37); BUN Creatinine Ratio 10.2 (10-20); Bilirubin Direct < 0.1 mg/dl (0-0.2); Blood Urea Nitrogen 7 mg/dl (7-18); C Reactive Protein 1.96 mg/dl (0-0.29); Calcium 8.4 mg/dl (8.5-10.1); Carbon Dioxide 27 mmol/L (21-32); Chloride 100 mmol/L (98-107); Creatinine Clr Calc Pharmacy 82.5 ml/min; Est GFR (African American) 110.7; Est GFR (Non-African American) 95.5; Glucose 99 mg/dl (70-99); Potassium 4.1 mmol/L (3.5-5.1); Sodium 133 mmol/L (136-145)
[2018-11-23 07:14] LABS: Alkaline Phosphatase 97 U/L (45-117); Bilirubin,Total 0.2 mg/dl (0.2-1); Creatine Kinase 38 U/L (26-192); Total Protein 6.4 gm/dl (6.4-8.2)
[2018-11-23] MEDS: GABAPENTIN 300 MG CAP PO SCH ×3 (07:48→20:47)
[2018-11-23] MEDS: PANCREAZE (LIPASE 16,800U) CAP PO SCH ×3 (07:50→16:49)
[2018-11-23] MEDS: CLOPIDOGREL BISULFATE 75 MG TAB PO SCH (07:50)
[2018-11-23] MEDS: HEPARIN SOD 5,000 UNIT/0.5 ML VIAL SQ SCH ×2 (07:54→20:48)
[2018-11-23] MEDS: ASPIRIN 81 MG ECTAB PO SCH (07:57)
[2018-11-23] MEDS: FOLIC ACID 1 MG TAB PO SCH (07:57)
[2018-11-23] MEDS: THIAMINE HCL 100 MG TAB PO SCH ×2 (07:58→08:02)
[2018-11-23] MEDS: OFLOXACIN 0.3% OP SOLN 5 ML BTL OTR SCH (07:59)
[2018-11-23] MEDS: METOPROLOL TARTRATE 25 MG TAB PO SCH ×2 (08:00→20:46)
[2018-11-23] MEDS: PANTOprazole 40 MG TAB PO SCH (08:00)
[2018-11-23] MEDS: CIPROFLOXACIN 500 MG TAB PO SCH ×2 (10:36→20:48)
--- NOTE | 2018-11-23 11:35 | Progress Note ---
DATE: 11/23/2018 SUBJECTIVE: The patient is sitting up in bed, is in a good mood. She denies some pain but notes that it is much improved. She denies any chest pain, shortness of breath, fever, chills, nausea, vomiting or headache. Vital signs are stable. She is afebrile. Temperature is 36.7. White count is 8.59, hematocrit is 29.7. The stump is examined. There is no subcutaneous air. There is no ascending lymphangitis or cellulitis. Her wound was not de-dressed. It was dressed just before I got there. I had pictures to look at; it is improved with the sense of the amount of surrounding erythema. There is no major drainage. There is no foul smell. ASSESSMENT: Stump dehiscence status post left revision below knee amputation. At this point in time she is on appropriate medical management. Continue wound care management. Follow up with her operating surgeons sometime in the next 2 weeks. Keep appointments that have already been scheduled. IV antibiotic choice and length per infectious disease Dr. Bhatia/Dr. oFrde. Will follow up with me as needed on a p.r.n. basis.
--- NOTE | 2018-11-23 11:51 | Hospitalist Progress Note ---
Date of Service November 23, 2018 Assessment & Plan (1) Amputation stump infection: Ms. Garcia is a 58 year old female with a past medical history of PAD (s/p bilateral femoral endarterectomy on Sep 2016), left BKA, alcoholism leading to chronic hyponatremia due to polydipsia and beer potomania, chronic pancreatitis, GERD hypertension, anxiety and depression, hyperlipidemia, and paroxysmal atrial fibrillation who presented to the ED due to concerns regarding a wound infection of the incision on her left BKA. -Lower extremity CT shows ulceration below the knee with significant associated fluid and inflammatory changes tracking to the distal tibia, where there is a possible intraosseous abscess. Intraosseous gas is also noted. ER physician Dr. Houston called the on-call plastic surgeon at [facility] (Dr. Avlaos), who stated that these were normal postsurgical changes seen on CT, and that the patient did not require transfer to [facility] at the time of admission. He recommended treating with broad-spectrum antibiotics, and keeping a close eye to make sure that the erythema did not extend beyond the line drawn in the ED. -Wound has now dehisced and is draining on its own. Wound cultures with MRSA and now growing Pseudomonas as well Appreciate orthopedic consultation here-I discussed the case on the phone with MAYI Johnson who talked to the patient's plastic surgeon on the phone on 11/21. Recommendation is as long as she is not septic, to continue IV antibiotics. If possible, get interventional radiology to drain although that is not available here. Although I do not feel this is necessary at this time as the wound is open and draining. -Leukocytosis is resolved, erythema improved, remains afebrile and no signs of sepsis -Continue wound care locally -Appreciate infectious disease consultation-continue IV Dapto and added po Cipro today for Pseudomonas now growing out PICC line in place -needs total at least 6 weeks IV abx -Needs weekly CPK, CMP, CBC, ESR, CRP while on Abx -Follow blood cultures-NGTD -Continue pain control with oxycodone 10 mg every 6 hours as needed, and Dilaudid 1 mg IV every 2 hours as needed for breakthrough pain-still requiring this frequently -Continue gabapentin for phantom limb pain, post BKA -transfer to [facility] if infection appears to be worsening or has signs of sepsis--> plan would likely be for AKA at that point which pt wants to avoid (2) Chronic alcoholism: -Last alcoholic beverage was earlier on the day of admission although patient reports she is only had one beer in the last month -Monitor for signs and symptoms of withdrawal -Patient states that she has not had alcohol withdrawal symptoms before-none so far here -Continue thiamine and folic acid supplementation (3) Chronic pancreatitis: -Patient has a history of chronic abdominal discomfort and requires daily narcotics for this -Chronic pancreatitis is secondary to repeated acute pancreatitis that were induced by alcohol -Continue home Creon (4) PVD (peripheral vascular disease): -Continue Plavix and aspirin -Continue statin (5) HTN (hypertension): Blood pressures are controlled, she was hypotensive on admission which is resolved -Continue to hold home amlodipine, does not need right now -Continue metoprolol and increase dose due to EZUS (6) Dyslipidemia: -Continue home atorvastatin (7) Paroxysmal atrial fibrillation: Continues with intermittent atrial fibrillation here sometimes for minutes, sometimes for hours. Constantly flipping back and forth between Afib and NSR. Rates in 120s with Afib -increase metoprolol to 37.5mg po bid -Patient states that she is not on anticoagulation due to prior concerns regarding bleeding -follow on tele (8) Hyponatremia: -Chronic hyponatremia secondary to polydipsia and beer potomania, sodium improved today at 133 -Sodium level 127 on admission -Liberalize salt in diet-can have a regular diet -Follow BMP in the morning (9) Otitis externa: -Examination of right ear consistent with otitis externa -still with exudate in EAC today Not much improvement so far -Continue ofloxacin drops x 7 days-today is day #4 -Add acetic acid and HC solution -needs curettage if can obtain ear curette here or perhaps a wick can be placed (10) GERD (gastroesophageal reflux disease): -continue home pantoprazole and ranitidine (11) Tobacco use disorder: nicotine patch if needed -Smoking cessation encouraged (12) DVT prophylaxis: 5000 units of heparin twice daily Disposition: Continue telemetry monitoring, continue IV antibiotics and work on approval of home IV antibiotics for daptomycin, continue wound care and will need wound care clinic follow-up She has an appointment with her surgeon on 11/29/18 as an outptatient Needs continued to stay to monitor for worsening wound infection in case of need for transfer Subjective Pain in stump is still severe but improved as long as she stays on top of asking for her pain meds. Is hopeful her stump will heal. Discussed case with ID. Remains afebrile. Tele with frequent Af-fib with rates in 120s and then NSR with rates 60s-70s. Review of Systems All systems reviewed & are unremarkable except as noted in HPI & below Physical Exam Vital Signs (Past 24 Hours): Last Vital Signs Temp 36.7 C 11/23/18 11:17 Pulse 89 11/23/18 11:17 Resp 20 11/23/18 11:17 BP 115/74 11/23/18 11:17 Pulse Ox 97 11/23/18 11:17 Constitutional: WD/WN, vitals as above Eyes: PERRL, conjunctivae normal, anicteric sclerae ENMT: external ear and nose normal, oropharynx normal Ears: + external ear abnormality (With dried blood and mild erythema of the right ear) and + EAC abnormality (white exudate, +erythema) Neck: trachea midline, no thyromegaly Respiratory: normal respiratory effort, lungs clear to auscultation Cardiovascular: RRR, no murmur, no edema Gastrointestinal (Abdomen): normal bowel sounds, soft, nontender, no hepatosplenomegaly Musculoskeletal: Extremities: + extremities abnormal to inspection (Left lower extremity with BKA with wound as below), no cyanosis and no clubbing Skin: + wound (Left BKA stump with incision which is dehiscedwithpurulent drainage soaked into the dressing but erythema is receding from the previously drawn black marker line, also with visible muscle) Neurologic: moves all extremities and awake; no focal motor deficits Psychiatric: A+Ox3, euthymic affect Results & Data Laboratory Results 11/23/18 11/23/18 11/23/18 Range/Units 06:17 06:17 06:17 WBC 8.59 (4.8-10.8) K/uL RBC 3.26 L (4.2-5.4) M/uL Hgb 9.4 L (12.0-16.0) g/dL Hct 29.7 L (37-47) % MCV 91.1 (80-100) fL MCH 28.8 (25-34) pg MCHC 31.6 L (32-36) g/dL RDW Std Deviation 55.2 H (36.4-46.3) fL RDW Coeff of Marlon 16.6 H (11.5-14.5) % Plt Count 281 (130-400) K/uL MPV 10.2 (7.4-10.4) fL Immature Gran % (Auto) 0.3 % Neut % (Auto) 64.6 % Lymph % (Auto) 21.7 % [place] % (Auto) 8.5 % Eos % (Auto) 4.7 % Baso % (Auto) 0.2 % Immature Gran # (Auto) 0.03 H (0.00-0.02) K/uL Neut # (Auto) 5.55 (1.4-6.5) K/uL Lymph # (Auto) 1.86 (1.2-3.4) K/uL [place] # (Auto) 0.73 H (0.11-0.59) K/uL Eos # (Auto) 0.40 (0-0.5) K/uL Baso # (Auto) 0.02 (0-0.2) K/uL ESR 38 H (0-21) mm/hr Sodium 133 L (136-145) mmol/L Potassium 4.1 (3.5-5.1) mmol/L Chloride 100 (98-107) mmol/L Carbon Dioxide 27 (21-32) mmol/L Anion Gap 6.0 (3-11) BUN 7 (7-18) mg/dl Creatinine 0.70 (0.6-1.2) mg/dl Est Cr Clr Drug Dosing 82.5 ml/min Est GFR ( Amer) 110.7 Est GFR (Non-Af Amer) 95.5 BUN/Creatinine Ratio 10.2 (10-20) Glucose 99 (70-99) mg/dl Calcium 8.4 L (8.5-10.1) mg/dl Total Bilirubin 0.2 (0.2-1) mg/dl Direct Bilirubin < 0.1 (0-0.2) mg/dl AST 13 L (15-37) U/L ALT 12 (12-78) U/L Alkaline Phosphatase 97 (45-117) U/L Total Creatine Kinase 38 (26-192) U/L C-Reactive Protein 1.96 H (0-0.29) mg/dl Total Protein 6.4 (6.4-8.2) gm/dl Albumin 2.5 L (3.4-5.0) gm/dl (1) HTN (hypertension) Hypertension type: essential hypertension Qualified Code(s): I10 - Essential (primary) hypertension
--- NOTE | 2018-11-23 12:25 | Infectious Disease Progress Nt ---
Date of Service November 23, 2018 Assessment & Plan (1) Amputation stump infection: will continue dapto, po cipro added this morning. follow respsone. would benefit from wound care eval. continue local wound care. . has picc line. pt is agreeable to usp IV abx at home as long as she is not given augmentin. She will likely need min 6 weeks IV abx and po cipro. can follow with ID post d/c from hospital. will need weekly cbc,cmp, esr , cpk while on abx. will check baseline cpk. has appt with orhto and plastics on , 11/29, may ultimately require additional debridement. Subjective Culture is growing MRSA and Pseudomonas Pseudomonas a new finding the morning. She was started on ciprofloxacin this morning and is tolerating this well. She remains on daptomycin. She is waiting to hear if she will have home IV coverage for daptomycin. Sed rate is pending this morning. Her CRP is 9. Total count is 8.5. Blood cultures remain negative. She did have line placed yesterday. She denies any chest pain shortness of nausea vomiting diarrhea or abdominal pain. She is tolerating antibiotics well. She does have a follow-up appointment with her plastic surgeon as well as her orthopedic surgeon [place] on November. All remaining review of systems are reviewed and are unremarkable except for as noted. Physical Exam Vital Signs (Past 24 Hours): Last Vital Signs Temp 36.7 C 11/23/18 11:17 Pulse 89 11/23/18 11:17 Resp 20 11/23/18 11:17 BP 115/74 11/23/18 11:17 Pulse Ox 97 11/23/18 11:17 Constitutional: WD/WN, vitals as above Eyes: PERRL, conjunctivae normal, anicteric sclerae ENMT: external ear and nose normal, oropharynx normal Neck: trachea midline, no thyromegaly Respiratory: normal respiratory effort, lungs clear to auscultation Cardiovascular: Heart Sounds: normal S1 and normal S2; no murmur Gastrointestinal (Abdomen): normal bowel sounds, soft, nontender, no hepatosplenomegaly Musculoskeletal: no cyanosis or clubbing, extremities motor strength 5/5 Skin: no rashes, warm and dry Psychiatric: A+Ox3, euthymic affect Results & Data Laboratory Results Microbiology 11/20/18 16:45 Leg,Left Gram Stain - Final 11/20/18 16:45 Leg,Left Deep Wound Culture - Final Staph aureus MRSA Pseudomonas aeruginosa 11/20/18 17:25 Blood Blood Culture - Preliminary No growth to date. 11/20/18 17:23 Blood Blood Culture - Preliminary No growth to date.
[2018-11-23] MEDS: DAPTOmycin 325 MG in SYRINGE 0 ML IV SCH (14:31)
[2018-11-23] MEDS ORDERED: ONDANSETRON INJ 2 MG/ML 2 ML VIAL IV PRN (14:58)
[2018-11-23] MEDS: ACETIC AC/HYDROCORTISONE OTIC 10ML BTL OT SCH ×3 (16:47→23:47)
[2018-11-23] MEDS: ZOLPIDEM TARTRATE 10 MG TAB PO SCH (20:46)
[2018-11-24] MEDS: OXYCODONE HCL IR 5 MG TAB (IMMEDIATE RELEASE) PO PRN ×4 (02:17→19:43)
[2018-11-24] MEDS: HYDROmorphone INJ 1 MG/ML SYRINGE IV PRN ×6 (05:04→23:25)
[2018-11-24] MEDS: ACETIC AC/HYDROCORTISONE OTIC 10ML BTL OT SCH ×3 (05:05→16:23)
[2018-11-24] MEDS ORDERED: HYDROmorphone INJ 0.5 MG/0.5 ML SYR IV ONE (05:59)
[2018-11-24 06:01] LABS: Basophils # (auto) 0.02 K/uL (0-0.2); Basophils % (auto) 0.2 %; Eosinophils # (auto) 0.32 K/uL (0-0.5); Eosinophils % (auto) 3.7 %; Hemoglobin 9.4 g/dL (12.0-16.0); Immature Granulocytes # (auto) 0.02 K/uL (0.00-0.02); Immature Granulocytes % (auto) 0.2 %; Lymphocytes # (auto) 1.66 K/uL (1.2-3.4); Lymphocytes % (auto) 19.1 %; Mean Corpuscular Hgb Conc 32.4 g/dL (32-36); Mean Corpuscular Volume 92.1 fL (80-100); Mean Platelet Volume 10.1 fL (7.4-10.4); Monocytes # (auto) 0.74 K/uL (0.11-0.59); Monocytes % (auto) 8.5 %; Neutrophils # (auto) 5.93 K/uL (1.4-6.5); Neutrophils % (auto) 68.3 %; Platelet Count 255 K/uL (130-400); RDW Coefficient of Variation 16.7 % (11.5-14.5); RDW Standard Deviation 55.8 fL (36.4-46.3); Red Blood Count 3.15 M/uL (4.2-5.4); White Blood Count 8.69 K/uL (4.8-10.8)
[2018-11-24 06:54] LABS: BUN Creatinine Ratio 7.1 (10-20); Calcium 8.1 mg/dl (8.5-10.1); Creatinine Clr Calc Pharmacy 94.3 ml/min; Est GFR (African American) 115.2; Est GFR (Non-African American) 99.4
[2018-11-24] MEDS ORDERED: VANCOMYCIN TROUGH ONE (07:30)
[2018-11-24] MEDS: CIPROFLOXACIN 500 MG TAB PO SCH ×2 (08:00→20:46)
[2018-11-24] MEDS: OFLOXACIN 0.3% OP SOLN 5 ML BTL OTR SCH (08:00)
[2018-11-24] MEDS: HEPARIN SOD 5,000 UNIT/0.5 ML VIAL SQ SCH ×2 (08:01→20:48)
[2018-11-24] MEDS: THIAMINE HCL 100 MG TAB PO SCH ×2 (08:01)
[2018-11-24] MEDS: PANTOprazole 40 MG TAB PO SCH (08:02)
[2018-11-24] MEDS: GABAPENTIN 300 MG CAP PO SCH ×3 (08:02→20:52)
[2018-11-24] MEDS: ASPIRIN 81 MG ECTAB PO SCH (08:02)
[2018-11-24] MEDS: METOPROLOL TARTRATE 25 MG TAB PO SCH ×2 (08:02→20:46)
[2018-11-24] MEDS: FOLIC ACID 1 MG TAB PO SCH (08:02)
[2018-11-24] MEDS: PANCREAZE (LIPASE 16,800U) CAP PO SCH ×3 (08:03→17:29)
[2018-11-24] MEDS: CLOPIDOGREL BISULFATE 75 MG TAB PO SCH (08:03)
--- NOTE | 2018-11-24 09:43 | Infectious Disease Progress Nt ---
Date of Service November 24, 2018 Assessment & Plan (1) Amputation stump infection: will continue dapto, po cipro added this morning. follow respsone. would benefit from wound care eval. continue local wound care. . has picc line. pt is agreeable to skilled nursing IV abx at home as long as she is not given augmentin. She will likely need min 6 weeks IV abx and po cipro. can follow with ID post d/c from hospital. will need weekly cbc,cmp, esr , cpk while on abx. will check baseline cpk. has appt with orhto and plastics on , 11/29, may ultimately require additional debridement. Patient is stable for discharge from Infectious Diseases standpoint when she is otherwise clinically stable and for outpatient antibiotics arranged Subjective Patient's blood cultures remain negative. She is IV daptomycin Cipro. She is tolerating. She is afebrile. Wound cultures are growing MRSA and Pseudomonas. Her PICC line is in place. She is awaiting for IV antibiotics. Physical Exam Vital Signs (Past 24 Hours): Last Vital Signs Temp 36.8 C 11/24/18 07:48 Pulse 78 11/24/18 07:48 Resp 18 11/24/18 07:48 BP 118/77 11/24/18 07:48 Pulse Ox 98 11/24/18 07:48 Results & Data Laboratory Results Microbiology 11/20/18 16:45 Leg,Left Gram Stain - Final 11/20/18 16:45 Leg,Left Deep Wound Culture - Final Staph aureus MRSA Pseudomonas aeruginosa 11/20/18 17:25 Blood Blood Culture - Preliminary No growth to date. 11/20/18 17:23 Blood Blood Culture - Preliminary No growth to date.
[2018-11-24] MEDS: TRIAMCINOLONE ACET 0.1% CR 15 GM TUBE EXT SCH ×3 (13:39→20:40)
[2018-11-24] MEDS: CIPRO 0.3%/DEXAMETHASONE 0.1% OTIC SUSP 7.5ML OTR SCH ×2 (13:39→20:52)
[2018-11-24] MEDS: CEROVITE ADV FORMULA TAB PO SCH (13:39)
[2018-11-24] MEDS: DAPTOmycin 325 MG in SYRINGE 0 ML IV SCH (13:49)
--- NOTE | 2018-11-24 18:46 | Hospitalist Progress Note ---
Date of Service November 24, 2018 Assessment & Plan (1) Amputation stump infection: left. 2nd to MSSA and pseudomonas. Currently on IV daptomycin and PO cipro. Wound stable. Cellulitis resolved. RUE PICC is in place; 6-week course of IV daptomycin. Needs f/u with [facility] in early November as scheduled. Continue wound care and dressing changes. Present on Admission?: Yes (2) Otitis externa: Right. Change current regimen of drops to ciprodex 4 drops BID. The oral cipro will help as well. Will perform examination of canal tomorrow w/ otoscope. Suspect she has chronic seborrhea which may be contributing to this issue. Will place triamcinolone cream to OUTER ear in dry, flaky skin areas. Present on Admission?: No (3) Hyponatremia: Stable, improved. BMP am. Present on Admission?: Yes (4) Chronic pain syndrome: Cont gabapentin along with oxycodone prn. Changed latter to q4h dosing as this is her schedule at home. Consider increase in gabapentin dosing tomorrow as well. Present on Admission?: Yes (5) Tobacco use disorder: Director [employer] to remain smoke-free. (6) Chronic pancreatitis: Consider pancrease supplementation. (7) Chronic alcoholism: No symptoms/signs of etoh withdrawal. Cont MVI, folate, thiamine. (8) PVD (peripheral vascular disease): asa, plavix. resume statin therapy once daptomycin is complete in 6 weeks. (9) HTN (hypertension): acceptable control at this time. (10) Paroxysmal atrial fibrillation: ongoing issue. continue BB. not on chronic anticoagulation due to previous bleeding issues. (11) DVT prophylaxis: heparin 5000 BID spoke with pt's - gave updated, told him I anticipate d/c home tomorrow. Subjective patient reports pain in the left leg stump also with mild right ear pain asks that her pain meds be q4h -- similar to the way she takes her meds at home transferring well denies cp or dyspnea feels that the left leg wound is "getting better" Constitutional: no fever and no chills Respiratory: no cough, no chest congestion and no dyspnea Cardiovascular: no chest pain Gastrointestinal: no abdominal pain Physical Exam Vital Signs (Past 24 Hours): Last Vital Signs Temp 36.8 C 11/24/18 15:49 Pulse 84 11/24/18 17:40 Resp 20 11/24/18 15:49 BP 135/82 11/24/18 15:49 Pulse Ox 91 11/24/18 15:49 Constitutional: average body habitus; no acute distress and no altered mental status ENMT: Ears: + external ear abnormality (seborrhea of right ear lobe) and + EAC abnormality (mild tenderness palpation of right tragus; dried purulent material in canal) Mouth: no oropharynx abnormality and no oral mucosal abnormality Respiratory: normal respiratory effort, lungs clear to auscultation Cardiovascular: Rate/Rhythm: regular rate and regular rhythm Heart Sounds: normal S1 and normal S2; no murmur Vessels: posterior tibial pulses present (right foot ) and dorsalis pedis pulses present (right foot); no JVD Extremities: no edema (right) left BKA left popliteal pulse 2+ Gastrointestinal (Abdomen): normal bowel sounds, soft, nontender, no hepatosplenomegaly Skin: left BKA stump - large wound distal aspect; opening is about 1cm in height and 4-5cm in width; purulent material present in center of this wound; the previous adjacent cellulitis of the stump is resolved; no odor Psychiatric: A+Ox3, euthymic affect Results & Data Laboratory Results Laboratory Results - last 24 hr 11/24/18 11/24/18 05:37 05:37 WBC 8.69 RBC 3.15 L Hgb 9.4 L Hct 29.0 L MCV 92.1 MCH 29.8 MCHC 32.4 RDW Std Deviation 55.8 H RDW Coeff of Marlon 16.7 H Plt Count 255 MPV 10.1 Immature Gran % (Auto) 0.2 Neut % (Auto) 68.3 Lymph % (Auto) 19.1 Pine % (Auto) 8.5 Eos % (Auto) 3.7 Baso % (Auto) 0.2 Immature Gran # (Auto) 0.02 Neut # (Auto) 5.93 Lymph # (Auto) 1.66 Pine # (Auto) 0.74 H Eos # (Auto) 0.32 Baso # (Auto) 0.02 Sodium 136 Potassium 4.0 Chloride 104 Carbon Dioxide 26 Anion Gap 6.0 BUN 4 L Creatinine 0.62 Est Cr Clr Drug Dosing 94.3 Est GFR ( Amer) 115.2 Est GFR (Non-Af Amer) 99.4 BUN/Creatinine Ratio 7.1 L Glucose 92 Calcium 8.1 L Total Creatine Kinase 36 (1) Otitis externa Otitis externa type: unspecified type Chronicity: acute Laterality: right Qualified Code(s): H60.501 - Unspecified acute noninfective otitis externa, right ear (2) Chronic pancreatitis Pancreatitis type: alcohol induced Qualified Code(s): K86.0 - Alcohol-induced chronic pancreatitis (3) HTN (hypertension) Hypertension type: essential hypertension Qualified Code(s): I10 - Essential (primary) hypertension
[2018-11-24] MEDS: ZOLPIDEM TARTRATE 10 MG TAB PO SCH (20:52)
[2018-11-25] MEDS: OXYCODONE HCL IR 5 MG TAB (IMMEDIATE RELEASE) PO PRN ×5 (00:29→18:31)
[2018-11-25] MEDS: HYDROmorphone INJ 1 MG/ML SYRINGE IV PRN ×3 (02:18→08:06)
[2018-11-25] MEDS: HEPARIN SOD 5,000 UNIT/0.5 ML VIAL SQ SCH (08:07)
[2018-11-25] MEDS: TRIAMCINOLONE ACET 0.1% CR 15 GM TUBE EXT SCH ×2 (08:07→14:20)
[2018-11-25] MEDS: CLOPIDOGREL BISULFATE 75 MG TAB PO SCH (08:08)
[2018-11-25] MEDS: METOPROLOL TARTRATE 25 MG TAB PO SCH (08:08)
[2018-11-25] MEDS: CIPRO 0.3%/DEXAMETHASONE 0.1% OTIC SUSP 7.5ML OTR SCH (08:08)
[2018-11-25] MEDS: THIAMINE HCL 100 MG TAB PO SCH ×2 (08:09)
[2018-11-25] MEDS: PANTOprazole 40 MG TAB PO SCH (08:09)
[2018-11-25] MEDS: CEROVITE ADV FORMULA TAB PO SCH (08:09)
[2018-11-25] MEDS: ASPIRIN 81 MG ECTAB PO SCH (08:10)
[2018-11-25] MEDS: CIPROFLOXACIN 500 MG TAB PO SCH (08:10)
[2018-11-25] MEDS: FOLIC ACID 1 MG TAB PO SCH (08:10)
[2018-11-25] MEDS: GABAPENTIN 300 MG CAP PO SCH (08:10)
[2018-11-25] MEDS: PANCREAZE (LIPASE 16,800U) CAP PO SCH ×3 (08:11→17:25)
[2018-11-25] MEDS ORDERED: GABAPENTIN 400 MG CAP PO SCH (14:00)
[2018-11-25] MEDS: DAPTOmycin 325 MG in SYRINGE 0 ML IV SCH (14:20)
--- NOTE | 2018-11-30 09:57 | Discharge Summary ---
Date of Service date of admission - 11/20/18 date of discharge - 11/26/18 Admission HPI Per Admitting Provider Ms. Garcia is a 58 year old female with a past medical history of peripheral vascular disease (s/p bilateral femoral endarterectomy on Sep 2016), left BKA, alcoholism leading to chronic hyponatremia due to polydipsia and beer potomania, chronic pancreatitis, GERD hypertension, anxiety and depression, hyperlipidemia, and paroxysmal atrial fibrillation who presented to the ED due to concerns regarding a wound infection of the incision on her left BKA. She states that she had the BKA on her left lower extremity 2 years ago. This was done due to the fact that she broke her left ankle, underwent surgery for this, and it subsequently became infected. She stated that it was debrided over 15 times, and eventually they decided the best option was to conduct an amputation. She had a revision BKA on November 03, 2018 due to severe residual pain that was preventing her from using prosthetics. She had a follow-up appointment with both plastics and orthopedics in [place] on Wednesday [3 days ago], at which time they said the wound looked fine. They did start her on Bactrim to "err on the side of caution." She states that the wound became more painful, and that it started seeping blood. She denies fever, chills. She has been eating and drinking well. Her only other complaint is drainage from her right ear, and feeling as though her right ear is congested. She states that she had antibiotics for this a proximally 1 month ago, which improved her symptoms. She states that there are symptoms worsened over the last week. Of note, she is a smoker. Her last cigarette was approximately 1 week and a half ago. She has been smoking approximately 1 pack a day for the last 40 years. She has a history of alcoholism, and generally drinks beer on a daily basis. Her last drink was earlier this afternoon. She states she has cut back and no longer drinks beer on a daily basis. She denies having gone into alcohol withdrawals in the past. With regards to her peripheral vascular disease, she has had bilateral stents placed in her femoral arteries. She is on aspirin and Plavix. She was on Coumadin in the past for her paroxysmal atrial fibrillation, but this was stopped due to a high bleeding risk. Principal Diagnosis left BKA stump infection Discharge Exam Constitutional average body habitus; no acute distress and no altered mental status ENMT Ears: + external ear abnormality (seborrhea of right ear lobe) and + EAC abnormality (mild tenderness palpation of right tragus; dried purulent material in canal) Mouth: no oropharynx abnormality and no oral mucosal abnormality Respiratory normal respiratory effort, lungs clear to auscultation Cardiovascular Rate/Rhythm: regular rate and regular rhythm Heart Sounds: normal S1 and normal S2; no murmur Vessels: posterior tibial pulses present (right foot ) and dorsalis pedis pulses present (right foot); no JVD Extremities: no edema (right) Gastrointestinal (Abdomen) normal bowel sounds, soft, nontender, no hepatosplenomegaly Musculoskeletal left BKA - no further cellulitis of distal stump; incision with dehiscence and now an open wound; wound has fish-mouthed appearance/shape; purulent drainage in center of wound; wound edges w/ beginnings of granulation; no odor. Psychiatric A+Ox3, euthymic affect Discharge Data Allergies Allergy/AdvReac Type Severity Reaction Status Date / Time amoxicillin Allergy Severe LIVER Verified 11/20/18 16:33 FAILURE clavulanic acid Allergy Severe LIVER Verified 11/20/18 16:33 FAILURE adhesive Allergy Mild Verified 11/20/18 16:33 acetaminophen Allergy Unknown LIVER Verified 11/20/18 16:33 DAMAGE-DUE TO FAILURE guanfacine Allergy Unknown Verified 11/20/18 16:33 nifedipine Allergy Unknown Verified 11/20/18 16:33 Consultations 1. orthopedics - Enrique Steiner MD 2. infectious disease - Gemma Bhatia DO 3. wound care team Ordered Studies 1. CT left leg: Postsurgical changes of vgfow-[id number] amputation. Osteopenia. The previously evident tibial plateau fracture is no longer apparent. The severe degree of osteopenia limits evaluation for acute fracture. Allowing for this, cortical step-off at the posterior aspect of the articular surface of the lateral tibial plateau, which was present on prior exam. This is consistent with a chronic posttraumatic deformity. No convincing evidence of an acute osseous injury. There is abnormal fluid within the distal portion of the tibia (series 303 image 50). Associated limited foci of gas. This measures 2.3 x 1.9 x 1.5 cm. There is also significant fluid and inflammatory change in the overlying muscle pad, which tracks to the skin defect in the distal aspect of the stump. No well-defin ed fluid collection in the soft tissues along for the lack of intravenous contrast. No knee joint effusion. IMPRESSION: Ulceration at the below the knee indication stump with significant associated f luid and inflammatory change tracking to the distal tibia, where there is an intraosseous abscess. The presence of intraosseous gas is consistent with a gas- forming organism. 2. RUE PICC line placement Hospital Course (1) Amputation stump infection: left. 2nd to MSSA and pseudomonas. Initially treated with broad-spectrum IV antibiotics; then was narrowed to IV daptomycin and PO cipro. The cellulitis of the stump improved/resolved while here but the wound itself was still draining copious amounts of fluid at discharge. RUE PICC is in place; 6-week course of IV daptomycin advised along with PO cipro by our infectious disease team. She was seen in consult by [facility], Dr. Enrique Gna. They contacted her surgeons at [facility] (Dr. Lee - orthopedics / Dr. Camara - plastics). Dr. Camara advised ongoing IV antibiotic therapy and if any worsening of the stump then transfer to [facility] for additional surgery which may have involved AKA. Fortunately the stump improved to a point which allowed discharge to home with home health services and IV antibiotic therapy via PICC line. Transfer to [place] was not needed. [id number] she remains at high risk of the wound NOT healing due to tobacco/alcohol use along with PAD. She has follow-up with her surgeons on November 29 at [facility] for ongoing care. She will need follow-up with Dr. Gemma Bhatia with infectious disease in [place] along with the [facility] if advised by her surgeons. (2) Otitis externa: Right. Improving with ciprodex 4 drops BID. The oral cipro for her left leg stump will help as well. She never had evidence of "malignant" otitis externa. Suspect she has chronic seborrhea which may be contributing to this issue. Continue triamcinolone cream in thin amounts to OUTER ear in dry, flaky skin areas (seborrhea). (3) Hyponatremia: Stable, improved. Na at admission - 127. Discharge Na - 136. Suspect this is due to beer potamania. (4) Chronic pain syndrome: The patient was not honest with the amount of oxycodone she was using and how much she had been prescribed in the weeks leading up to admission. She initially told me that she had several oxycodone pills left from her original prescription given to her at time of hospital discharge from [facility] in early October. I reviewed the [place] Prescription database online and unfortunately the patient had received MULTIPLE oxycodone prescriptions from various providers since October totaling well over 100 tablets of oxycodone. When I tried to address this with her she was upset and denied that the database was accurate. At discharge I advised the following for pain control - * increase dose of gabapentin to 400mg TID * trial of nortryptiline 25mg at bedtime I called and spoke with her PCP at [facility] and informed her of my concerns about her prescription narcotic usage. The patient also mentioned she had recently been prescribed medial marijuana but could not tell me who had prescribed such. I counseled her several times on the dangers of concomitant narcotic use, alcohol abuse, and marijuana use; she was advised not to indulge in this practice. (5) Tobacco use disorder: Counseled to remain smoke-free. (6) Chronic pancreatitis: Consider pancrease supplementation. (7) Chronic alcoholism: No symptoms/signs of etoh withdrawal while here. Cont MVI, folate, thiamine supplementation. (8) PVD (peripheral vascular disease): asa, plavix. resume statin therapy once daptomycin is complete in 6 weeks. needs tobacco and alcohol cessation. (9) HTN (hypertension): acceptable control while here. (10) Paroxysmal atrial fibrillation: ongoing issue. had several runs of PAF while hospitalized but largely not symptomatic from such. continue beta ranjit. not on chronic anticoagulation due to previous bleeding issues. Total Time Total Time Spent Total Time Spent (In Minutes): 45 Total Time Includes: Examination of the Patient, Discharge Planning, Medication Reconciliation and Communication With Other Providers Discharge Plan Discharge Items Patient Disposition: Home - Home Health Services Reason For Visit: WOUND INFECTION of left leg Discharge Diagnosis: Wound infection of left leg due to staph ("MRSA") and pseudomonas Discharge Goals: Diagnostic testing, Improve disease control, Improve function and Therapeutic intervention Activity: Resume your previous activity Bathing: Keep incision dry Bathing Comment: ok to shower but keep left leg clean/dry; NO tub baths Non-emergency contact: Primary Care Provider, Surgeon and Specialist Call non-emergency contact if: you have any medication questions, your pain is not controlled, your pain is worsening, your pain is unusual for you, your pain is concerning for you, your temperature is above 100.5, your wound has increased redness, your wound has increased drainage and your wound pain has increased Follow-up/Referrals: Gemma Bhatia DO [Physician] - 12/07/18 10:00 am (An appointment has been made on your behalf with Dr. Bhatia at Infectious Disease clinic. Please call the clinic with any questions or concerns. Thank you! ) Janie Back PA-C [Primary Care Provider] - (see Ms. Back at [facility] within 5 days) Diet: Heart Healthy Addtl Provider Instructions: From Giovanny Lay - Hospitalist - You were admitted to the hospital because of an infection of the left BKA (below the knee amputation). Cultures grew MRSA (staph infection) and pseudomonas. You were seen by orthopedics, infectious disease, and the wound care team. The leg gradually improved over time with antibiotics and local wound care. We were in touch with your surgical team at [place] who recommended ongoing use of IV antibiotics and close follow-up with them on November 29, 2018. At this time we recommend the following - 1. 6-week course of IV daptomycin via your PICC line. You need to STOP your lipitor (atorvastatin) while on this medication. 2. 6-week course of oral ciprofloxacin twice a day. This will treat your ear canal infection on the right side as well. 3. take probiotics (lactinex) 3 times a day until you are off all antibiotics. 4. use ciprodex solution 4 drops to the right ear canal twice a day for the next 7 days. See Ms. Back this week to make sure the ear is doing better. 5. May use triamcinolone cream to the OUTER EAR lobe where it is scaly/dry three times a day in thin amounts for a few more days. 6. pain control - * INCREASE your gabapentin to 400mg three times a day * START nortryptiline 25mg at bedtime; this will also help with sleep; the medication causes drowsiness * follow-up with Ms. Back to get a referral to [facility] Pain management * please use oxycodone sparingly as needed for pain * follow-up with the doctor that prescribed the medical marijuana A notification was made to your PCP, Janie Back PA-C, that it may be beneficial for you to be seen by [facility] pain management clinic. Unfortunately, a referral cannot be made to Pain Management Clinic directly from hospital discharge. Please follow-up with your PCP in this regard. 7. while on the IV antibiotics the following labs will be needed on a weekly basis; start these labs on Wednesday11/28/18 or Wednesday11/29/18 - * CPK * CMP * CBC * ESR, CRP [facility] [employer] can forward these labs to Dr. Gemma Bhatia, [facility]. 8. follow-up - * see Arabella SEE and/or Dr. Cherie Lee -- [facility] -- on November 29 as previously scheduled * see the [facility] within 1 week - we will have to arrange this early next week; date/time to be determined * see Ms. Back within 1 week * see Dr. Gemma Bhatia as scheduled 9. Return to [facility] if - * you have persistent fevers over 100.5 degrees * you have worsening redness, swelling, discharge, odor, etc from the left leg wound * you have uncontrolled pain * you have severe diarrhea * any other concerns Prescriptions: New ciprofloxacin HCl 500 mg Tablet 500 mg PO BID Qty: 60 RF: 1 triamcinolone acetonide 0.1 % Cream 1 applic EXT TID Qty: 1 RF: 0 Ciprodex 0.3-0.1 % Drops,Suspension 4 drp OTR BID 7 Days Qty: 1 RF: 0 Certavite-Antioxidant 18-400 mg-mcg Tablet 1 tab PO QAM Qty: 90 RF: 3 daptomycin 350 mg recon soln 325 mg IV DAILY 42 Days Qty: 10 RF: 1 Lactinex 1 million cell tablet,chewable 3 tab PO TID 28 Days Qty: 252 RF: 1 nortriptyline 25 mg capsule 25 mg PO HS Qty: 30 RF: 1 gabapentin 400 mg capsule 400 mg PO TID Qty: 90 RF: 0 metoprolol tartrate 37.5 mg tablet 37.5 mg PO BID Qty: 60 RF: 2 Continued sennosides [senna] 8.6 mg Tablet 8.6 mg PO BID PRN (Reason: Constipation) RF: 0 polyethylene glycol 3350 [Miralax] 17 gram Powder In Packet 17 g PO DAILY PRN (Reason: Constipation) RF: 0 ranitidine HCl 300 mg tablet 300 mg PO HS RF: 0 promethazine 25 mg suppository 25 mg MO Q6H PRN (Reason: Nausea) RF: 0 thiamine HCl (vitamin B1) 100 mg tablet 100 mg PO QAM RF: 0 clopidogrel 75 mg tablet 75 mg PO QAM RF: 0 pantoprazole 40 mg tablet,delayed release (DR/EC) 40 mg PO QAM RF: 0 calcium carbonate [Tums] 200 mg calcium (500 mg) Tablet,Chewable 200 mg PO QID PRN (Reason: Indigestion) RF: 0 zolpidem 10 mg tablet 10 mg PO HS RF: 0 diclofenac sodium 1 % gel 1 applic Topical UD RF: 0 oxycodone 5 mg tablet 5 mg PO Q6 PRN (Reason: Pain) RF: 0 Medical Marijuana 1 dose PO DIRECTED RF: 0 aspirin [Aspirin Low Dose] 81 mg Tablet,Delayed Release (Dr/Ec) 81 mg PO DAILY RF: 0 Discontinued atorvastatin 80 mg tablet 80 mg PO QAM RF: 0 amlodipine 10 mg tablet 10 mg PO QAM RF: 0 sulfamethoxazole-trimethoprim 800-160 mg tablet 1 tab PO BID RF: 0 Visit Report Forms: Smoking Cessation Stand-Alone Forms: Counts Include [facility] At [facility] Discharge Orders: Discharge Order (Routine); Ordered 11/25/18 Ordered By: Giovanny Lay Admission Data Admit Date/Time: 11/20/18 20:10 Attending Provider: Giovanny Lay Admit Provider: Andrew Estrada Primary Care Provider: Janie Back Other Providers: Dharmesh Forde ; Gemma Bhatia ; Enrique Gan ; Gemma Simon Service: Telemetry Medical Other Interventions: Discharge Summary Assessment (RN) Last Done: 11/25/18 18:10 Pending Studies at Discharge: No DC Date/Time DO NOT enter until pt leaves facility: 11/25/18 18:50
== END 2018-11-25 18:50 | disposition home health service (06) | DRG 565 ==
LOC: ED 16:17 → 2N 20:10 → SUATTDRO 20:10 → 2N 22:53
DX: F17.200 Nicotine dependence, unspecified, uncomplicated; F32.9 Major depressive disorder, single episode, unspecified; Z89.512 Acquired absence of left leg below knee; Y83.5 Amputation of limb(s) as the cause of abnormal reaction of the patient, or of later complication, without mention of misadventure at the time of the procedure; K86.1 Other chronic pancreatitis; E87.1 Hypo-osmolality and hyponatremia; T87.44 Infection of amputation stump, left lower extremity; T87.81 Dehiscence of amputation stump; E78.5 Hyperlipidemia, unspecified; H60.91 Unspecified otitis externa, right ear; K21.9 Gastro-esophageal reflux disease without esophagitis; I73.9 Peripheral vascular disease, unspecified; I10 Essential (primary) hypertension; I48.0 Paroxysmal atrial fibrillation; F41.9 Anxiety disorder, unspecified; F10.20 Alcohol dependence, uncomplicated

== ENCOUNTER 2018-12-24 12:48 | Inpatient (IN) ==
[2018-12-24] MEDS ORDERED: OXYCODONE HCL 10 MG/0.5 ML UDP PO STA (13:53)
[2018-12-24] MEDS ORDERED: OXYCODONE HCL IR 5 MG TAB (IMMEDIATE RELEASE) ONE (14:14)
[2018-12-24 14:48] LABS: Basophils # (auto) 0.07 K/uL (0-0.2); Basophils % (auto) 0.6 %; Eosinophils # (auto) 0.54 K/uL (0-0.5); Eosinophils % (auto) 4.5 %; Hematocrit (blood only) 39.8 % (37-47); Hemoglobin 13.8 g/dL (12.0-16.0); Immature Granulocytes # (auto) 0.06 K/uL (0.00-0.02); Immature Granulocytes % (auto) 0.5 %; Lymphocytes # (auto) 2.87 K/uL (1.2-3.4); Lymphocytes % (auto) 23.8 %; Mean Corpuscular Hgb Conc 34.7 g/dL (32-36); Mean Corpuscular Volume 86.9 fL (80-100); Mean Platelet Volume 10.8 fL (7.4-10.4); Monocytes % (auto) 8.3 %; Neutrophils # (auto) 7.53 K/uL (1.4-6.5); Neutrophils % (auto) 62.3 %; Platelet Count 276 K/uL (130-400); RDW Coefficient of Variation 17.4 % (11.5-14.5); RDW Standard Deviation 53.3 fL (36.4-46.3); Red Blood Count 4.58 M/uL (4.2-5.4); White Blood Count 12.07 K/uL (4.8-10.8)
[2018-12-24 15:00] LABS: Albumin Level 3.4 gm/dl (3.4-5.0); BUN Creatinine Ratio 5.8 (10-20); C Reactive Protein 0.42 mg/dl (0-0.29); Calcium 9.6 mg/dl (8.5-10.1); Est GFR (African American) 92.8; Est GFR (Non-African American) 80.1
[2018-12-24 15:02] LABS: Albumin Globulin Ratio 0.7 (0.9-2); Bilirubin,Total 0.3 mg/dl (0.2-1); Globulin 4.7 gm/dl (2.5-4.0); Total Protein 8.1 gm/dl (6.4-8.2)
[2018-12-24] MEDS ORDERED: SODIUM CHLORIDE 0.9% 1000ML 2,000 ML IV ONE (15:07)
--- NOTE | 2018-12-24 15:49 | Emergency Department Note ---
Entered by Marty Hillman acting as a scribe for Jack Giraldo M.D. History of Present Illness General Chief complaint: Wound Recheck Stated complaint: PICC LINE INFECTED Source: patient History of Present Illness Onset (ago): day(s) (a few days ago) Location: upper extremity (right arm) Pain Consistency: + constant Maximum Pain Intensity: 7 Associated symptoms: + other (Positive for pus coming out of her PICC line. Negative for fever.) The patient is a 58 year old female who presents to the emergency department with complaints of constant right arm pain beginning a few days ago. The patient states that she has a PICC line in her right arm. She notes that she is allergic to certain adhesives, and she reports that the dressing on the PICC line has not been sticking. The patient states that she might have an infection as she has seen some pus under her dressing. She denies any fever. She notes that she is on Xarelto and Plavix. She notes that she had a below knee amputation of the left l eg that was recently infected. Home Medications Home Medications Medication Instructions Recorded Confirmed Type calcium carbonate [Tums] 200 mg PO QID PRN 07/18/18 12/24/18 History clopidogrel 75 mg PO QAM 07/18/18 12/24/18 History diclofenac sodium 1 applic TOPICAL UD 07/18/18 12/24/18 History pantoprazole 40 mg PO QAM 07/18/18 12/24/18 History polyethylene glycol 3350 [Miralax] 17 g PO DAILY PRN 07/18/18 12/24/18 History promethazine 25 mg CA Q6H PRN 07/18/18 12/24/18 History ranitidine HCl 300 mg PO HS 07/18/18 12/24/18 History sennosides [senna] 8.6 mg PO BID PRN 07/18/18 12/24/18 History zolpidem 10 mg PO HS 07/18/18 12/24/18 History Medical Marijuana 1 dose PO DIRECTED 11/20/18 12/24/18 History Lactobacillus acidoph-L.bulgar 3 tab PO TID 28 Days #252 tab 11/25/18 12/24/18 Rx [Lactinex] ciprofloxacin HCl 500 mg PO BID #60 tab 11/25/18 12/24/18 Rx daptomycin 325 mg IV DAILY 42 Days #10 ea 11/25/18 12/24/18 Rx gabapentin 400 mg PO TID #90 cap 11/25/18 12/24/18 Rx metoprolol tartrate 37.5 mg PO BID #60 tab 11/25/18 12/24/18 Rx skaulhetikjn-fkpy-ohiac acid 1 tab PO QAM #90 tab 11/25/18 12/24/18 Rx [Certavite-Antioxidant] nortriptyline 25 mg PO HS #30 cap 11/25/18 12/24/18 Rx triamcinolone acetonide 1 applic EXT TID #1 tube 11/25/18 12/24/18 Rx acamprosate 333 mg tablet,delayed 333 mg PO TID tab 12/20/18 12/24/18 History release amlodipine 10 mg tablet 10 mg PO DAILY 12/20/18 12/24/18 History oxycodone 5 mg tablet 10 mg PO Q6 PRN tab 12/20/18 12/24/18 History pancrelipase 0 mg PO AC 12/20/18 12/24/18 History rivaroxaban 20 mg tablet 20 mg PO DAILY 12/20/18 12/24/18 History Allergies Allergy/AdvReac Type Severity Reaction Status Date / Time amoxicillin Allergy Severe LIVER Verified 12/24/18 14:08 FAILURE clavulanic acid Allergy Severe LIVER Verified 12/24/18 14:08 FAILURE adhesive Allergy Mild Verified 12/24/18 14:08 acetaminophen Allergy Unknown LIVER Verified 12/24/18 14:08 DAMAGE-DUE TO FAILURE guanfacine Allergy Unknown Verified 12/24/18 14:08 nifedipine Allergy Unknown Verified 12/24/18 14:08 Past Med/Surg History Medical History Chronic alcoholism (Chronic) PVD (peripheral vascular disease) (Chronic) HTN (hypertension) (Chronic) Anxiety (Chronic) Depression (Chronic) Dyslipidemia (Chronic) Paroxysmal atrial fibrillation (Chronic) Acute pancreatitis (Acute) GERD (gastroesophageal reflux disease) Surgical History History of appendectomy (Resolved) H/O vascular surgery (Resolved) "bilateral femoral endarterectomy with iliac stent 10/02/2016 Dr. Dharmesh Omalley, [facility]" Status post ORIF of fracture of ankle (Resolved) "12/18/16- ORIF closed displaced trimalleolar left ankle fracture; Dr. 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 Social History Preferred Language: Tunisian Beliefs That Will Affect Care: None marital status: Current Living Situation: Spouse current occupation: Retired Feels Safe at Home: Yes Smoking Status: Current every day smoker Hx Alcohol Use: Yes (2-3 drinks per day ) Hx Substance Use: Yes Review of Systems See HPI for pertinent positives & negatives. and A total of 10 systems reviewed and were otherwise negative Physical Exam Vital Signs Vital Signs - 24 hr 12/24/18 12:53 12/24/18 14:20 12/24/18 16:36 Temperature 36.9 C Temperature Source Oral Sepsis Recent Fever Within 48 Hours No Sepsis New/Unexplained Change in Mental Status No Sepsis Action Taken by Nursing No Action Required Pulse Rate 134 H Pulse Rate [Apical] 127 H 126 H Respiratory Rate 17 17 14 Respiratory Effort / Characteristics Non-Labored Spontaneous Non-Labored Spontaneous Respiratory Depth Normal Normal Respiratory Pattern Regular Regular Blood Pressure 97/71 L Blood Pressure [Left Arm] 103/79 112/87 Blood Pressure Mean 79 Blood Pressure Mean [Left Arm] 87 95 Blood Pressure Position [Left Arm] Pulse Oximetry 99 97 98 Oxygen Delivery Method Room Air Room Air Room Air 12/24/18 17:36 12/24/18 18:36 12/24/18 18:47 Temperature 36.6 C 36.6 C Temperature Source Oral Oral Sepsis Recent Fever Within 48 Hours Sepsis New/Unexplained Change in Mental Status Sepsis Action Taken by Nursing Pulse Rate Pulse Rate [Apical] 110 H 127 H 127 H Respiratory Rate 18 18 18 Respiratory Effort / Characteristics Non-Labored Spontaneous Respiratory Depth Normal Respiratory Pattern Regular Blood Pressure Blood Pressure [Left Arm] 102/75 110/77 110/77 Blood Pressure Mean Blood Pressure Mean [Left Arm] 84 88 88 Blood Pressure Position [Left Arm] Sitting Lying Lying Pulse Oximetry 97 98 98 Oxygen Delivery Method Room Air Room Air Room Air GENERAL: Awake, alert, well-appearing, in no distress HENT: Normocephalic, atraumatic. EYES: Normal conjunctiva. Sclera non-icteric. NECK: Supple. No nuchal rigidity. RESPIRATORY: Clear to auscultation. No wheezes. Normal respiratory effort. CARDIAC: Tachycardic. Normal rhythm. Extremities warm and well perfused. GI: Soft, non-distended. No tenderness to palpation. No rebound or guarding. No masses. RECTAL: Deferred. MUSCULOSKELETAL: Atraumatic. Chest examination reveals no tenderness. There is no CVA tenderness to palpation. UPPER EXTREMITIES: Right upper extremity has PICC line partially dislodged with purulence around the insertion site, 5x6cm erythema to the area. LOWER EXTREMITIES: Calves are equal size bilaterally and non-tender. No edema NEURO: Normal sensorium. No sensory or motor deficits noted. No facial droop. SKIN: Warm and dry. No rash or jaundice noted. Course 1346: Past medical records reviewed. The patient was evaluated in room A9, and a complete history and physical examination were performed. 1554: Upon reevaluation, the patient is stable. I discussed the results and treatment plan with the patient. She verbalizes understanding and agreement. I discussed the patient's case with EMILIA Jett. The patient will be evaluated for further management and care. Consultations Consultation #1: I reviewed the patient's case with EMILIA Jett. He will evaluate the patient for further management. Time: 15:54 Administered Medications Nicotine (Nicoderm Cq) 14 mg TD QAM ZACH Stop: 01/23/19 18:22 Last Admin: 12/24/18 19:34 Dose: Not Given Documented by: [id number] Discontinued Medications Sodium Chloride (Nss 1000ml) 2,000 mls @ 999 mls/hr IV .Q2H1M ONE Stop: 12/24/18 17:07 Last Infusion: 12/24/18 17:30 Dose: 0 mls/hr Documented by: [id number] Admin: 12/24/18 15:27 Dose: 999 mls/hr Documented by: [id number] Daptomycin 425 mg/ Syringe 8.5 mls @ 5 mls/min IV NOW STA; Protocol Stop: 12/24/18 15:57 Last Admin: 12/24/18 16:39 Dose: 5 mls/min Documented by: [id number] Multivitamins 10 ml/ Thiamine HCl 100 mg/ Folic Acid 1 mg/Sodium Chloride 1,011.2 mls @ 1,011.2 mls/hr IV .Q1H ZACH Stop: 12/24/18 18:14 Last Admin: 12/24/18 19:05 Dose: 1,011.2 mls/hr Documented by: [id number] Oxycodone HCl (Roxicodone Intensol) 10 mg PO ONE STA Stop: 12/24/18 13:54 Last Admin: 12/24/18 14:22 Dose: Not Given Documented by: [id number] Oxycodone HCl (Roxicodone Immediate Rel) Confirm Administered Dose 10 mg .ROUTE .STK-MED ONE Stop: 12/24/18 14:15 Last Admin: 12/24/18 14:21 Dose: 10 mg Documented by: [id number] Medical Decision Making Differential Diagnosis Differential diagnosis: Etiologies such as viral syndrome, otitis, pharyngitis, pneumonia, influenza, meningitis, urinary tract infection, septic arthritis, soft tissue infectious process, intra-abdominal process, sepsis, bacteremia, as well as others were entertained. Medical Records Attestation: I reviewed the patient's medical records. Home Medications Current Medication List: was personally reviewed by me Laboratory Data Attestation: I reviewed the patient's lab results. Result diagrams: 12/24/18 14:31 12/24/18 14:31 Lab Results 12/24/18 12/24/18 12/24/18 Range/Units 14:31 14:31 14:31 WBC 12.07 H (4.8-10.8) K/uL RBC 4.58 (4.2-5.4) M/uL Hgb 13.8 (12.0-16.0) g/dL Hct 39.8 (37-47) % MCV 86.9 (80-100) fL MCH 30.1 (25-34) pg MCHC 34.7 (32-36) g/dL RDW Std Deviation 53.3 H (36.4-46.3) fL RDW Coeff of Marlon 17.4 H (11.5-14.5) % Plt Count 276 (130-400) K/uL MPV 10.8 H (7.4-10.4) fL Immature Gran % (Auto) 0.5 % Neut % (Auto) 62.3 % Lymph % (Auto) 23.8 % [place] % (Auto) 8.3 % Eos % (Auto) 4.5 % Baso % (Auto) 0.6 % Immature Gran # (Auto) 0.06 H (0.00-0.02) K/uL Neut # (Auto) 7.53 H (1.4-6.5) K/uL Lymph # (Auto) 2.87 (1.2-3.4) K/uL [place] # (Auto) 1.00 H (0.11-0.59) K/uL Eos # (Auto) 0.54 H (0-0.5) K/uL Baso # (Auto) 0.07 (0-0.2) K/uL ESR 30 H (0-21) mm/hr Sodium 129 L (136-145) mmol/L Potassium 4.0 (3.5-5.1) mmol/L Chloride 98 (98-107) mmol/L Carbon Dioxide 26 (21-32) mmol/L Anion Gap 5.0 (3-11) BUN 5 L (7-18) mg/dl Creatinine 0.81 (0.6-1.2) mg/dl Est Cr Clr Drug Dosing 71.0 ml/min Est GFR ( Amer) 92.8 Est GFR (Non-Af Amer) 80.1 BUN/Creatinine Ratio 5.8 L (10-20) Glucose 107 H (70-99) mg/dl Calcium 9.6 (8.5-10.1) mg/dl Total Bilirubin 0.3 (0.2-1) mg/dl AST 16 (15-37) U/L ALT 16 (12-78) U/L Alkaline Phosphatase 119 H (45-117) U/L C-Reactive Protein 0.42 H (0-0.29) mg/dl Total Protein 8.1 (6.4-8.2) gm/dl Albumin 3.4 (3.4-5.0) gm/dl Globulin 4.7 H (2.5-4.0) gm/dl Albumin/Globulin Ratio 0.7 L (0.9-2) Blood Pressure Blood Pressure Findings: Normal blood pressure Blood Pressure Disposition: did not require urgent referral MDM Narrative 58-year-old female with a history of otitis secondary to alcohol use, peripheral vascular disease status post left BKA with recent revision and infection admitted the beginning of the month. Came here today due to issues regarding her PICC line. Is chronically on daptomycin for several more weeks for this infection. Right arm PICC line evidently noted to have pus when changed today. Did receive antibiotics prior to coming in. Afebrile upon arrival but tachycardic with a borderline blood pressure. Patient has swelling and purulent discharge around the site of a right PICC line that is partially dislodged. Denies fevers but persistently tachycardic and did receive an fluid here. Currently on Cipro and daptomycin. PICC line was removed. Blood cultures obtained. Increased leukocytosis and again persistent tachycardia on fairly significant antibiotics and concern for picc line infection. Discussed with the hospitalist given this. Impression & Plan PICC line infection Discharge Plan Visit Data *Final* Discharge Date/Time: 12/24/18 17:45 Chief Complaint: Wound Recheck Stated Complaint: PICC LINE INFECTED ED Provider: Jack Giraldo Discharge Problem: PICC line infection Patient Disposition: Admitted As Inpatient Discharge Instructions Interventions: ED Discharge Assessment Last Done: 12/24/18 17:45 Discharge Problem: PICC line infection Qualifiers: Encounter type: initial encounter Qualified Code(s): T80.219A - Unspecified infection due to central venous catheter, initial encounter The brown's documentation has been prepared under my direction and personally reviewed by me in its entirety. I confirm that the note above accurately reflects all work, treatment, procedures, and medical decision making performed by me.
[2018-12-24] MEDS ORDERED: DAPTOmycin 425 MG in SYRINGE 0 ML IV STA (15:56)
[2018-12-24] MEDS ORDERED: MULTI-VITAMIN INFUSION 10 ML, THIAMINE HCL 100 MG, FOLIC ACID 1 MG in SODIUM CHLORIDE 0... IV SCH (17:15)
--- NOTE | 2018-12-24 17:21 | History & Physical Report ---
Date of Service December 24, 2018 Assessment & Plan (1) PICC line infection: - Presented with erythema, discharge at site of RUE PICC line; leukocytosis and tachycardia noted in ED. - Blood cultures x 2 and PICC line tip culture is pending. - Will continue Daptomycin IV as prescribed; hold home Cipro, start Aztreonam IV (penicillin allergy) - Wound care consulted for evaluation. - ID consulted, follows with Dr. Bhatia as outpatient for previous stump infection. - Oxycodone 10 mg q6hr prn pain; avoid increasing dose of home narcotic. (2) Tachycardia: - HR >120; may be related to acute pain vs. dehydration vs. infection. - Admit to telemetry for close monitoring; currently with sinus tachycardia on monitor. - Received IV fluids in ED; will continue NS at 80 cc/hr. (3) Amputation stump infection: - Admitted 11/20-11/25 for left stump infection. Wound appears significantly better since last admission and is healing nicely - Wound culture +MRSA and Pseudomonas. - Discharged with Daptomycin IV and Cipro PO per ID recs. - Will continue Dapto IV, convert Cipro to Aztreonam as noted above for PICC line infection to cover for gram negative infection. - Wound care consulted, changes dressing daily. (4) Status post below knee amputation of left lower extremity: - Completed in April 2017 at [facility]; s/p revision at [facility] on 11/03/2018. - Follows with Dr. Singh in [place]. - No indication for consult at this time. (5) PVD (peripheral vascular disease): - S/p bilat femoral endarterectomy in Sep 2016. - Continue Plavix as prescribed. - Previously on statin, holding in setting of Daptomycin therapy. (6) GERD (gastroesophageal reflux disease): - Continue Protonix and Ranitidine as prescribed. (7) Chronic alcoholism: - Pt. currently states she drinks 2-3 drinks per day. - Banana bag ordered in the ED. - Continue folic acid and thiamine daily. - Monitor for signs of ETOH withdrawal. (8) Chronic pancreatitis: - Continue pancrelipase supplement with meals. (9) Hyponatremia: - Chronic hyponatremia in setting of polydipsia and beer potomania. - Na level was 129 in the ER; monitor qAM. - Started NS at 80 cc/hr for IV fluid hydration. (10) Tobacco use disorder: - Smokes 1/2 PPD at home. - Nicotine patch ordered. (11) HTN (hypertension): - Continue Amlodipine 10 mg daily, Metoprolol 37.5 mg BID as prescribed. - Monitor blood pressure closely. (12) Anxiety: - Ambien 10 mg qhs at bedtime for anxiety/insomnia. (13) Depression: - Not currently on anti-depressants. (14) Dyslipidemia: - Holding statin in setting of Dapto therapy. (15) Paroxysmal atrial fibrillation: - Currently in NSR on monitor; admit to telemetry. - Was recently started on Xarelto by senior group manager at [facility], will continue. - Continue metoprolol 37.5 mg BID as prescribed. (16) Chronic pain syndrome: - Continue Nortiptyline 25 mg qhs and Gabapentin 400 mg TID. - Continue Oxycodone 10 mg q6hr prn pain (most recent Rx filled on 12/16 per PDMP) - Pt. has h/o obtaining narcotics from multiple providers -- please avoid increa sing dose of oxycodone. -also takes Marijuana capsules from a marijuana dispensary-not bringing in from home (17) Abnormal LFTs: - Elevated Alk Phos on CMP. - Continue to monitor. (18) DVT prophylaxis: - SCDs; Xarelto. FEN/GI: Heart healthy diet; IVFs at 80 cc/hr; PPI daily. FULL CODE Dispo: Med/surg with telemetry for IV abx, IV fluids and ID consult. History of Present Illness Chief Complaint: Right Arm Cellulitis Primary Care Provider: Janie Back PA-C Ms. Garcia is a 58 year old female with past medical history of peripheral vascular disease (s/p bilat femoral endarterectomy in Sep 2016), left BKA, alcoholism leading to chronic hyponatremia due to polydipsia and beer potomania, chronic pancreatitis, GERD, HTN, anxiety/depression, HLD, paroxysmal A. fib who presented for right upper extremity cellulitis. Pt. was recently admitted from 11/20-11/25/18 for a left stump infection; wound culture was positive for MRSA and Pseudomonas. She was discharged with IV Daptomycin and PO Ciprofloxacin. She has been evaluated by home nursing for PICC line dressing changes (qMonday). Pt. states she developed mild redness after PICC line insertion due to allergic reaction to dressing. Home nurse changed her dressing on Wednesday December 19, 2018. She noticed dressing was loosening on her skin throughout the week; home nurse returned on November to reapply a new dressing. Dressing almost fell off night into Wednesday morning. She was reassessed this morning by home health; dressing was changed and significant erythema/irritation was noted around PICC line insertion site along with areas of purulent discharge. Denies fever/chills, headache, chest pain, SOB, LE edema. Denies nausea/vomiting, abdominal pain, dysuria, diarrhea or constipation. PICC line was removed in the ER. Catheter tip culture and blood cultures x 2 are pending. She received Daptomycin IV x 1 dose, Oxycodone 10 mg PO x 1 dose and banana bag in the ER. Will be admitted for further evaluation, wound consult, IV antibiotics. Allergies Allergy/AdvReac Type Severity Reaction Status Date / Time amoxicillin Allergy Severe LIVER Verified 12/24/18 14:08 FAILURE clavulanic acid Allergy Severe LIVER Verified 12/24/18 14:08 FAILURE adhesive Allergy Mild Verified 12/24/18 14:08 acetaminophen Allergy Unknown LIVER Verified 12/24/18 14:08 DAMAGE-DUE TO FAILURE guanfacine Allergy Unknown Verified 12/24/18 14:08 nifedipine Allergy Unknown Verified 12/24/18 14:08 Home Medications Home Medications Medication Instructions Recorded Confirmed Type calcium carbonate [Tums] 200 mg PO QID PRN 07/18/18 12/24/18 History clopidogrel 75 mg PO QAM 07/18/18 12/24/18 History diclofenac sodium 1 applic TOPICAL UD 07/18/18 12/24/18 History pantoprazole 40 mg PO QAM 07/18/18 12/24/18 History polyethylene glycol 3350 [Miralax] 17 g PO DAILY PRN 07/18/18 12/24/18 History promethazine 25 mg CO Q6H PRN 07/18/18 12/24/18 History ranitidine HCl 300 mg PO HS 07/18/18 12/24/18 History sennosides [senna] 8.6 mg PO BID PRN 07/18/18 12/24/18 History zolpidem 10 mg PO HS 07/18/18 12/24/18 History Medical Marijuana 1 dose PO DIRECTED 11/20/18 12/24/18 History Lactobacillus acidoph-L.bulgar 3 tab PO TID 28 Days #252 tab 11/25/18 12/24/18 Rx [Lactinex] ciprofloxacin HCl 500 mg PO BID #60 tab 11/25/18 12/24/18 Rx daptomycin 325 mg IV DAILY 42 Days #10 ea 11/25/18 12/24/18 Rx gabapentin 400 mg PO TID #90 cap 11/25/18 12/24/18 Rx metoprolol tartrate 37.5 mg PO BID #60 tab 11/25/18 12/24/18 Rx vtqpxfofkuyt-apst-ixlez acid 1 tab PO QAM #90 tab 11/25/18 12/24/18 Rx [Certavite-Antioxidant] nortriptyline 25 mg PO HS #30 cap 11/25/18 12/24/18 Rx triamcinolone acetonide 1 applic EXT TID #1 tube 11/25/18 12/24/18 Rx acamprosate 333 mg tablet,delayed 333 mg PO TID tab 12/20/18 12/24/18 History release amlodipine 10 mg tablet 10 mg PO DAILY 12/20/18 12/24/18 History oxycodone 5 mg tablet 10 mg PO Q6 PRN tab 12/20/18 12/24/18 History pancrelipase 0 mg PO AC 12/20/18 12/24/18 History rivaroxaban 20 mg tablet 20 mg PO DAILY 12/20/18 12/24/18 History Past Med/Surg History Medical History Chronic alcoholism (Chronic) PVD (peripheral vascular disease) (Chronic) HTN (hypertension) (Chronic) Anxiety (Chronic) Depression (Chronic) Dyslipidemia (Chronic) Paroxysmal atrial fibrillation (Chronic) Acute pancreatitis (Acute) GERD (gastroesophageal reflux disease) Surgical History History of appendectomy (Resolved) H/O vascular surgery (Resolved) "bilateral femoral endarterectomy with iliac stent 10/02/2016 Dr. Dharmesh Omalley, [facility]" Status post ORIF of fracture of ankle (Resolved) "12/18/16- ORIF closed displaced trimalleolar left ankle fracture; Dr. 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 Social History Preferred Language: Arabic Beliefs That Will Affect Care: None marital status: Current Living Situation: Spouse current occupation: Retired Feels Safe at Home: Yes Smoking Status: Current every day smoker Hx Alcohol Use: Yes (2-3 drinks per day ) Hx Substance Use: Yes Review of Systems All systems reviewed & are unremarkable except as noted in HPI & below Constitutional: no fever, no chills, no fatigue, no weakness and no anorexia Ear, Nose, Mouth, Throat: no nasal congestion, no nasal discharge, no sinus pain/pressure and no sore throat Respiratory: no cough, no dyspnea and no wheezing Cardiovascular: no chest pain, no palpitations, no lightheadedness and no edema Gastrointestinal: no abdominal pain, no nausea, no vomiting, no constipation and no diarrhea/loose stools Genitourinary (Female): no dysuria and no difficulty urinating Musculoskeletal: no back pain and no joint pain Integumentary: + lesions (Left stump area, right upper extremity ) Neurologic: no unsteadiness, no generalized weakness and no headache(s) Allergy / Immunological: no rash Physical Exam Vital Signs (Past 24 Hours): Last Vital Signs Temp 36.9 C 12/24/18 12:53 Pulse 126 H 12/24/18 16:36 Resp 14 12/24/18 16:36 BP 112/87 12/24/18 16:36 Pulse Ox 98 12/24/18 16:36 Physical Exam: General: Pleasant female, appears older than stated age. HEENT: NC/AT; PERRLA with EOMI; [place] conjunctiva, MMM. Neck: Supple and nontender Cardiac: tachycardic Lungs: CTA bilaterally Abdomen: Bowel normoactive X 4; Nontender to palpation Rectal: Deferred : Deferred Back: NO spinous tenderness Extremities: Warm. Left BKA, dressing in place over previous site of stump infection. Erythema noted over right proximal upper extremity surrounding previous PICC insertion site, no discharge noted. Warm and tender to light palplation. Neuro: No focal weakness Skin: No rash Results & Data Laboratory Results 12/24/18 12/24/18 12/24/18 Range/Units 14:31 14:31 14:31 WBC 12.07 H (4.8-10.8) K/uL RBC 4.58 (4.2-5.4) M/uL Hgb 13.8 (12.0-16.0) g/dL Hct 39.8 (37-47) % MCV 86.9 (80-100) fL MCH 30.1 (25-34) pg MCHC 34.7 (32-36) g/dL RDW Std Deviation 53.3 H (36.4-46.3) fL RDW Coeff of Marlon 17.4 H (11.5-14.5) % Plt Count 276 (130-400) K/uL MPV 10.8 H (7.4-10.4) fL Immature Gran % (Auto) 0.5 % Neut % (Auto) 62.3 % Lymph % (Auto) 23.8 % Parker % (Auto) 8.3 % Eos % (Auto) 4.5 % Baso % (Auto) 0.6 % Immature Gran # (Auto) 0.06 H (0.00-0.02) K/uL Neut # (Auto) 7.53 H (1.4-6.5) K/uL Lymph # (Auto) 2.87 (1.2-3.4) K/uL Parker # (Auto) 1.00 H (0.11-0.59) K/uL Eos # (Auto) 0.54 H (0-0.5) K/uL Baso # (Auto) 0.07 (0-0.2) K/uL ESR 30 H (0-21) mm/hr Sodium 129 L (136-145) mmol/L Potassium 4.0 (3.5-5.1) mmol/L Chloride 98 (98-107) mmol/L Carbon Dioxide 26 (21-32) mmol/L Anion Gap 5.0 (3-11) BUN 5 L (7-18) mg/dl Creatinine 0.81 (0.6-1.2) mg/dl Est Cr Clr Drug Dosing 71.0 ml/min Est GFR ( Amer) 92.8 Est GFR (Non-Af Amer) 80.1 BUN/Creatinine Ratio 5.8 L (10-20) Glucose 107 H (70-99) mg/dl Calcium 9.6 (8.5-10.1) mg/dl Total Bilirubin 0.3 (0.2-1) mg/dl AST 16 (15-37) U/L ALT 16 (12-78) U/L Alkaline Phosphatase 119 H (45-117) U/L C-Reactive Protein 0.42 H (0-0.29) mg/dl Total Protein 8.1 (6.4-8.2) gm/dl Albumin 3.4 (3.4-5.0) gm/dl Globulin 4.7 H (2.5-4.0) gm/dl Albumin/Globulin Ratio 0.7 L (0.9-2) Code Status & VTE Plan Code Status FULL CODE Supervising Physician Co-Signing Physician Notes PA Supervision Note: I personally saw and examined the patient. I verified all stearns points and agree with MAYI Issa with the following exceptions and/or additions: Pt here with PICC line infection with obvious erythema and purulence noted from PICC line insertion site prior to admission. Pt otherwise reports her stump neuropathic pain is much improved since her surgery to remove a neuroma. Wound on stump healing nicely. Right upper arm very itchy as she has had a contact derm from the PICC dressing. History reviewed Vitals reviewed Tele now with rapid atrial fibrillation AAOx3 Anicteric sclerae Skin: right upper inner arm with rectangular patch of erythematous, dry scaly skin with some mild crusting, PICC insertion site open, minimal purulent drainage Ext: left BKA stump with incision half way closed, only medial portion still ope n, crusted blood, significantly improved from previous, no visible muscle as before 58 yo female with left BKA stump wound infection on IV abx, now here with PICC line infection likely secondary to contact dermatitis nad breaks in skin. Most likely Strep or Staph infection. PICC now removed -continue Dapto and change po Cipro to Aztreonam, appreciate if ID has other opinion -follow PICC and Blood cultures -add hydrocortisone cream to contact derm rash at site of PICC dressing For her rapid atrial fibrillation--> she is know to frequently cycle in and out of Afib, asymptomatic -continue beta ranjit as prescribed, on IVFs follow on tele (1) PICC line infection Encounter type: initial encounter Qualified Code(s): T80.219A - Unspecified infection due to central venous catheter, initial encounter (2) Chronic pancreatitis Pancreatitis type: alcohol induced Qualified Code(s): K86.0 - Alcohol-induced chronic pancreatitis (3) HTN (hypertension) Hypertension type: essential hypertension Qualified Code(s): I10 - Essential (primary) hypertension
[2018-12-24] MEDS ORDERED: POLYETHYLENE (MIRALAX) 17 GM PACK PO PRN (18:23)
[2018-12-24] MEDS: NICOTINE 14 MG/24 HR PATCH TD SCH (19:34)
[2018-12-24] MEDS: LACTOBACILLUS ACIDOPHILUS (FLORANEX) TAB PO SCH ×2 (20:01→20:26)
[2018-12-24] MEDS: SODIUM CHLORIDE 0.9% 1000ML 1,000 ML IV SCH (20:21)
[2018-12-24] MEDS: AZTREONAM 2,000 MG in DEXTROSE 5% 100 ML IV SCH (20:23)
[2018-12-24] MEDS: METOPROLOL TARTRATE 25 MG TAB PO SCH (20:31)
[2018-12-24] MEDS: PANCREAZE (LIPASE 10,500U) CAP PO SCH (20:32)
[2018-12-24] MEDS: NORTRIPTYLINE HCL 25 MG CAP PO SCH (20:32)
[2018-12-24] MEDS: GABAPENTIN 400 MG CAP PO SCH (20:32)
[2018-12-24] MEDS: OXYCODONE HCL IR 5 MG TAB (IMMEDIATE RELEASE) PO PRN (20:42)
[2018-12-24] MEDS: HYDROCORTISONE 1% OINT 30 GM TUBE EXT SCH (20:44)
[2018-12-24] MEDS: ZOLPIDEM TARTRATE 10 MG TAB PO SCH (21:38)
[2018-12-25] MEDS: AZTREONAM 2,000 MG in DEXTROSE 5% 100 ML IV SCH ×3 (03:52→19:18)
[2018-12-25] MEDS: OXYCODONE HCL IR 5 MG TAB (IMMEDIATE RELEASE) PO PRN ×4 (03:53→23:21)
[2018-12-25 06:08] LABS: Hemoglobin 10.5 g/dL (12.0-16.0); Mean Corpuscular Hgb Conc 32.8 g/dL (32-36); Mean Corpuscular Volume 89.9 fL (80-100); Mean Platelet Volume 10.7 fL (7.4-10.4); Platelet Count 194 K/uL (130-400); RDW Coefficient of Variation 17.6 % (11.5-14.5); RDW Standard Deviation 57.6 fL (36.4-46.3); Red Blood Count 3.56 M/uL (4.2-5.4); White Blood Count 8.33 K/uL (4.8-10.8)
[2018-12-25 06:36] LABS: Albumin Globulin Ratio 0.7 (0.9-2); Albumin Level 2.5 gm/dl (3.4-5.0); BUN Creatinine Ratio 8.1 (10-20); Bilirubin,Total 0.2 mg/dl (0.2-1); Calcium 8.3 mg/dl (8.5-10.1); Creatinine Clr Calc Pharmacy 81.6 ml/min; Est GFR (African American) 110.7; Est GFR (Non-African American) 95.5; Globulin 3.4 gm/dl (2.5-4.0); Potassium 3.8 mmol/L (3.5-5.1); Total Protein 5.9 gm/dl (6.4-8.2)
--- NOTE | 2018-12-25 07:50 | Infectious Disease Consult ---
Date of Consultation December 25, 2018 Assessment & Plan (1) PICC line infection: continue IV abx for now, follow cultures blood and picc tip. would not place another picc line as she is nearing her stop date. final recs pending culture results. History of Present Illness Attending Physician: Ирина Hughes MD pt admitted after she had purulent drainage from rue picc line. on IV dapto for MRSA rle stump infection, surgery at [facility]. also found to have pseudomonas from wound, on po cipro at home, changed to aztreonam upon admission. has been having reaction to dressing and increased irritiation and redness of skin, home nursing noted purulent drainage and she was sent to ER. picc is removed, tip cutlure pending, blood cultures pending. remains on IV abx, stop date 01/03. afebrile, denies f/c at home. no cp, sob, cough, no n/v/d/abd pain, has been tolerating abx well. no pain in stump, wound healing. wbc 12. Allergies Allergy/AdvReac Type Severity Reaction Status Date / Time amoxicillin Allergy Severe LIVER Verified 12/24/18 14:08 FAILURE clavulanic acid Allergy Severe LIVER Verified 12/24/18 14:08 FAILURE adhesive Allergy Mild Verified 12/24/18 14:08 acetaminophen Allergy Unknown LIVER Verified 12/24/18 14:08 DAMAGE-DUE TO FAILURE guanfacine Allergy Unknown Verified 12/24/18 14:08 nifedipine Allergy Unknown Verified 12/24/18 14:08 Home Medications Home Medications Medication Instructions Recorded Confirmed Type calcium carbonate [Tums] 200 mg PO QID PRN 07/18/18 12/24/18 History clopidogrel 75 mg PO QAM 07/18/18 12/24/18 History diclofenac sodium 1 applic TOPICAL UD 07/18/18 12/24/18 History pantoprazole 40 mg PO QAM 07/18/18 12/24/18 History polyethylene glycol 3350 [Miralax] 17 g PO DAILY PRN 07/18/18 12/24/18 History promethazine 25 mg [place] Q6H PRN 07/18/18 12/24/18 History ranitidine HCl 300 mg PO HS 07/18/18 12/24/18 History sennosides [senna] 8.6 mg PO BID PRN 07/18/18 12/24/18 History zolpidem 10 mg PO HS 07/18/18 12/24/18 History Medical Marijuana 1 dose PO DIRECTED 11/20/18 12/24/18 History Lactobacillus acidoph-L.bulgar 3 tab PO TID 28 Days #252 tab 11/25/18 12/24/18 Rx [Lactinex] ciprofloxacin HCl 500 mg PO BID #60 tab 11/25/18 12/24/18 Rx daptomycin 325 mg IV DAILY 42 Days #10 ea 11/25/18 12/24/18 Rx gabapentin 400 mg PO TID #90 cap 11/25/18 12/24/18 Rx metoprolol tartrate 37.5 mg PO BID #60 tab 11/25/18 12/24/18 Rx nyyaankgzmrd-yvus-jzeoy acid 1 tab PO QAM #90 tab 11/25/18 12/24/18 Rx [Certavite-Antioxidant] nortriptyline 25 mg PO HS #30 cap 11/25/18 12/24/18 Rx triamcinolone acetonide 1 applic EXT TID #1 tube 11/25/18 12/24/18 Rx acamprosate 333 mg tablet,delayed 333 mg PO TID tab 12/20/18 12/24/18 History release amlodipine 10 mg tablet 10 mg PO DAILY 12/20/18 12/24/18 History oxycodone 5 mg tablet 10 mg PO Q6 PRN tab 12/20/18 12/24/18 History pancrelipase 0 mg PO AC 12/20/18 12/24/18 History rivaroxaban 20 mg tablet 20 mg PO DAILY 12/20/18 12/24/18 History Patient History Medical History Chronic alcoholism (Chronic) PVD (peripheral vascular disease) (Chronic) HTN (hypertension) (Chronic) Anxiety (Chronic) Depression (Chronic) Dyslipidemia (Chronic) Paroxysmal atrial fibrillation (Chronic) Acute pancreatitis (Acute) GERD (gastroesophageal reflux disease) Surgical History History of appendectomy (Resolved) H/O vascular surgery (Resolved) "bilateral femoral endarterectomy with iliac stent 10/02/2016 Dr. Dharmesh Omalley, [facility]" Status post ORIF of fracture of ankle (Resolved) "12/18/16- ORIF closed displaced trimalleolar left ankle fracture; Dr. 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 Social History Preferred Language: Tajik Beliefs That Will Affect Care: None marital status: Current Living Situation: Spouse current occupation: Retired Other Information That Helps Us Care for You: No Feels Safe at Home: Yes Safety Concerns: Feels Safe At This Time Smoking Status: Current every day smoker Hx Alcohol Use: Yes Hx Substance Use: Yes Review of Systems all remaining ros reviewed and are negative Physical Exam Vital Signs (Past 24 Hours): Last Vital Signs Temp 36.6 C 12/25/18 07:00 Pulse 78 12/25/18 07:00 Resp 21 12/25/18 07:00 BP 115/73 12/25/18 07:00 Pulse Ox 96 12/25/18 07:00 Constitutional: WD/WN, vitals as above Eyes: PERRL, conjunctivae normal, anicteric sclerae ENMT: external ear and nose normal, oropharynx normal Neck: normal visual inspection Respiratory: normal respiratory effort, lungs clear to auscultation Cardiovascular: RRR, no murmur, no edema Gastrointestinal (Abdomen): normal bowel sounds, soft, nontender, no hepatosplenomegaly Musculoskeletal: no cyanosis or clubbing, extremities motor strength 5/5 Skin: no rashes, warm and dry rue skin is excorated at old picc site, no drainage or bleeding, no warmth, min erythema Psychiatric: A+Ox3, euthymic affect (1) PICC line infection Encounter type: initial encounter Qualified Code(s): T80.219A - Unspecified infection due to central venous catheter, initial encounter
[2018-12-25] MEDS: LACTOBACILLUS ACIDOPHILUS (FLORANEX) TAB PO SCH ×3 (07:59→20:44)
[2018-12-25] MEDS: CEROVITE ADV FORMULA TAB PO SCH (08:00)
[2018-12-25] MEDS: THIAMINE HCL 100 MG TAB PO SCH (08:00)
[2018-12-25] MEDS: GABAPENTIN 400 MG CAP PO SCH ×3 (08:00→20:44)
[2018-12-25] MEDS: FOLIC ACID 1 MG TAB PO SCH (08:00)
[2018-12-25] MEDS: CLOPIDOGREL BISULFATE 75 MG TAB PO SCH (08:00)
[2018-12-25] MEDS: PANCREAZE (LIPASE 10,500U) CAP PO SCH ×3 (08:00→19:22)
[2018-12-25] MEDS: PANTOprazole 40 MG TAB PO SCH (08:00)
[2018-12-25] MEDS: AMLODIPINE BESYLATE 5 MG TAB PO SCH (08:01)
[2018-12-25] MEDS: METOPROLOL TARTRATE 25 MG TAB PO SCH ×2 (08:01→20:44)
[2018-12-25] MEDS: HYDROCORTISONE 1% OINT 30 GM TUBE EXT SCH ×2 (08:02→20:43)
[2018-12-25] MEDS: NICOTINE 14 MG/24 HR PATCH TD SCH (08:02)
[2018-12-25] MEDS ORDERED: DAPTOMYCIN IV SCH (09:00)
[2018-12-25] MEDS ORDERED: MEDICAL MARIJUANA PO PRN (09:30)
[2018-12-25] MEDS: SODIUM CHLORIDE 0.9% 1000ML 1,000 ML IV SCH (10:18)
--- NOTE | 2018-12-25 11:53 | Hospitalist Progress Note ---
Date of Service December 25, 2018 Assessment & Plan (1) PICC line infection: - Presented with erythema, discharge at site of RUE PICC line; leukocytosis and tachycardia noted at admission. - Blood cultures x 2 and PICC line tip culture pending. - Continue Daptomycin IV as prescribed; holding home Cipro, started Aztreonam IV (penicillin allergy) -- Day 2. - Wound care consulted. - ID consulted, appreciate input. - Oxycodone 10 mg q6hr prn pain, will also restart home marijuana; avoid incr easing dose of narcotic. (2) Tachycardia: - HR >120 in the ED, now improved; was likely related to acute pain vs. dehydration vs. infection. - Telemetry for close monitoring, currently in NSR; h/o paroxysmal A. fib, no episodes noted over last 24 hours. - Will d/c IV fluids. (3) Amputation stump infection: - Admitted 11/20-11/25 for left stump infection; wound is now significantly improved, healing nicely. - Wound culture +MRSA and Pseudomonas. - Discharged with Daptomycin IV and Cipro PO per ID recs. - Continue Dapto IV, converted Cipro to Aztreonam as noted above for PICC line infection. - Wound care consulted, change dressing daily. (4) Status post below knee amputation of left lower extremity: - Completed in April 2017 at [facility]; s/p revision at [facility] in Oct 2018. - Follows with Dr. Singh in [place]. - No indication for consult at this time. (5) PVD (peripheral vascular disease): - S/p bilat femoral endarterectomy in Sep 2016. - Continue Plavix as prescribed. - Previously on statin, holding in setting of Daptomycin therapy. (6) GERD (gastroesophageal reflux disease): - Continue Protonix and Ranitidine as prescribed. (7) Chronic alcoholism: - Pt. currently states she drinks 2-3 drinks per day. - Banana bag administered in ED. - Continue folic acid, thiamine and multivitamin - pt. is refusing thiamine and folic acid. - Monitor for signs of ETOH withdrawal -- currently doing well. (8) Chronic pancreatitis: - Continue pancrelipase supplement with meals. (9) Hyponatremia: - Chronic hyponatremia in setting of polydipsia and beer potomania. - Na level was 129 in the ER; now improved to 138 with IV fluid hydration. - Will d/c IV fluids. (10) Tobacco use disorder: - Smokes 1/2 PPD at home. - Nicotine patch ordered. (11) HTN (hypertension): - Continue Amlodipine 10 mg daily, Metoprolol 37.5 mg BID as prescribed. - Has been normotensive. (12) Anxiety: - Ambien 10 mg qhs at bedtime for anxiety/insomnia. (13) Depression: - Not currently on anti-depressants. (14) Dyslipidemia: - Holding statin in setting of Dapto therapy. (15) Paroxysmal atrial fibrillation: - Currently in NSR on monitor; monitor telemetry. - Was recently started on Xarelto by toddler guide at [place], will continue. - Continue metoprolol 37.5 mg BID as prescribed. (16) Chronic pain syndrome: - Continue Nortiptyline 25 mg qhs and Gabapentin 400 mg TID. - Continue Oxycodone 10 mg q6hr prn pain (most recent Rx filled on 12/16 per PDMP) - Pt. has h/o obtaining narcotics from multiple providers -- please avoid increasing dose of oxycodone. - Will order medical marijuana -- her will bring from home today. (17) Abnormal LFTs: - Elevated Alk Phos at admission, now improved. (18) DVT prophylaxis: - SCDs; Xarelto. Dispo: Med/surg with telemetry for IV abx and ID consult. Supervising Physician Co-Signing Physician Notes Attending Attestation: Chart reviewed, care plan d/w MAYI Yost. I agree w/ the stearns components of her documentation. Cont management of suspected PICC line infection with IV abx. Appreciate ID input. She has considerable pain - likely due to stump infection - and does need pain control. Caution with use of oxycodone and other narcotics given pt's prior misuse of narcotics however. For that reason would use nucynta. Giovanny Lay MD Subjective She is doing well overall today. Redness at PICC line site now improving after applying vaseline and dressing. Denies significant pain at site. Did not like breakfast this morning -- states she had wheat toast. Will convert to regular diet patient request. Wound culture and blood cultures pending, on IV abx. ID following. Review of Systems All systems reviewed & are unremarkable except as noted in HPI & below Constitutional: no fever, no chills, no weakness and no anorexia Respiratory: no cough and no dyspnea Cardiovascular: no chest pain, no palpitations and no edema Gastrointestinal: no abdominal pain, no nausea and no constipation Genitourinary (Female): no difficulty urinating Musculoskeletal: no joint pain Integumentary: + rash and + erythema (RUE near previous PICC insertion site ); no new lesions and no pruritus Physical Exam Vital Signs (Past 24 Hours): Last Vital Signs Temp 36.6 C 12/25/18 07:00 Pulse 78 12/25/18 07:00 Resp 21 12/25/18 07:00 BP 115/73 12/25/18 07:00 Pulse Ox 96 12/25/18 07:00 Physical Exam: General: Pleasant female, appears older than stated age. HEENT: NC/AT; PERRLA with EOMI; [place] conjunctiva, MMM. Neck: Supple and nontender Cardiac: regular rate and rhythm Lungs: CTA bilaterally Abdomen: Bowel normoactive X 4; Nontender to palpation Extremities: Warm. Left BKA, dressing in place. Erythema noted RUE surrounding previous PICC insertion site now improving. Neuro: No focal weakness Skin: See above. Results & Data Laboratory Results 12/25/18 12/25/18 12/24/18 Range/Units 05:21 05:21 14:31 WBC 8.33 (4.8-10.8) K/uL RBC 3.56 L (4.2-5.4) M/uL Hgb 10.5 L D (12.0-16.0) g/dL Hct 32.0 L (37-47) % MCV 89.9 (80-100) fL MCH 29.5 (25-34) pg MCHC 32.8 (32-36) g/dL RDW Std Deviation 57.6 H (36.4-46.3) fL RDW Coeff of Marlon 17.6 H (11.5-14.5) % Plt Count 194 (130-400) K/uL MPV 10.7 H (7.4-10.4) fL Immature Gran % (Auto) % Neut % (Auto) % Lymph % (Auto) % [place] % (Auto) % Eos % (Auto) % Baso % (Auto) % Immature Gran # (Auto) (0.00-0.02) K/uL Neut # (Auto) (1.4-6.5) K/uL Lymph # (Auto) (1.2-3.4) K/uL [place] # (Auto) (0.11-0.59) K/uL Eos # (Auto) (0-0.5) K/uL Baso # (Auto) (0-0.2) K/uL ESR (0-21) mm/hr Sodium 138 D 129 L (136-145) mmol/L Potassium 3.8 4.0 (3.5-5.1) mmol/L Chloride 108 H 98 (98-107) mmol/L Carbon Dioxide 24 26 (21-32) mmol/L Anion Gap 5.0 5.0 (3-11) BUN 6 L 5 L (7-18) mg/dl Creatinine 0.70 0.81 (0.6-1.2) mg/dl Est Cr Clr Drug Dosing 81.6 71.0 ml/min Est GFR ( Amer) 110.7 92.8 Est GFR (Non-Af Amer) 95.5 80.1 BUN/Creatinine Ratio 8.1 L 5.8 L (10-20) Glucose 96 107 H (70-99) mg/dl Calcium 8.3 L 9.6 (8.5-10.1) mg/dl Magnesium 2.0 (1.8-2.4) mg/dl Total Bilirubin 0.2 0.3 (0.2-1) mg/dl AST 12 L 16 (15-37) U/L ALT 11 L 16 (12-78) U/L Alkaline Phosphatase 99 119 H (45-117) U/L C-Reactive Protein 0.42 H (0-0.29) mg/dl Total Protein 5.9 L D 8.1 (6.4-8.2) gm/dl Albumin 2.5 L 3.4 (3.4-5.0) gm/dl Globulin 3.4 4.7 H (2.5-4.0) gm/dl Albumin/Globulin Ratio 0.7 L 0.7 L (0.9-2) 12/24/18 12/24/18 Range/Units 14:31 14:31 WBC 12.07 H (4.8-10.8) K/uL RBC 4.58 (4.2-5.4) M/uL Hgb 13.8 (12.0-16.0) g/dL Hct 39.8 (37-47) % MCV 86.9 (80-100) fL MCH 30.1 (25-34) pg MCHC 34.7 (32-36) g/dL RDW Std Deviation 53.3 H (36.4-46.3) fL RDW Coeff of Marlon 17.4 H (11.5-14.5) % Plt Count 276 (130-400) K/uL MPV 10.8 H (7.4-10.4) fL Immature Gran % (Auto) 0.5 % Neut % (Auto) 62.3 % Lymph % (Auto) 23.8 % [place] % (Auto) 8.3 % Eos % (Auto) 4.5 % Baso % (Auto) 0.6 % Immature Gran # (Auto) 0.06 H (0.00-0.02) K/uL Neut # (Auto) 7.53 H (1.4-6.5) K/uL Lymph # (Auto) 2.87 (1.2-3.4) K/uL [place] # (Auto) 1.00 H (0.11-0.59) K/uL Eos # (Auto) 0.54 H (0-0.5) K/uL Baso # (Auto) 0.07 (0-0.2) K/uL ESR 30 H (0-21) mm/hr Sodium (136-145) mmol/L Potassium (3.5-5.1) mmol/L Chloride (98-107) mmol/L Carbon Dioxide (21-32) mmol/L Anion Gap (3-11) BUN (7-18) mg/dl Creatinine (0.6-1.2) mg/dl Est Cr Clr Drug Dosing ml/min Est GFR ( Amer) Est GFR (Non-Af Amer) BUN/Creatinine Ratio (10-20) Glucose (70-99) mg/dl Calcium (8.5-10.1) mg/dl Magnesium (1.8-2.4) mg/dl Total Bilirubin (0.2-1) mg/dl AST (15-37) U/L ALT (12-78) U/L Alkaline Phosphatase (45-117) U/L C-Reactive Protein (0-0.29) mg/dl Total Protein (6.4-8.2) gm/dl Albumin (3.4-5.0) gm/dl Globulin (2.5-4.0) gm/dl Albumin/Globulin Ratio (0.9-2) (1) PICC line infection Encounter type: initial encounter Qualified Code(s): T80.219A - Unspecified infection due to central venous catheter, initial encounter (2) Chronic pancreatitis Pancreatitis type: alcohol induced Qualified Code(s): K86.0 - Alcohol-induced chronic pancreatitis (3) HTN (hypertension) Hypertension type: essential hypertension Qualified Code(s): I10 - Essential (primary) hypertension
[2018-12-25] MEDS: RIVAROXABAN 20 MG TAB PO SCH (16:31)
[2018-12-25] MEDS: DAPTOmycin 325 MG in SYRINGE 0 ML IV SCH (16:31)
[2018-12-25] MEDS: TAPENTADOL HCL ER 50 MG TABCR PO SCH (20:44)
[2018-12-25] MEDS: ZOLPIDEM TARTRATE 10 MG TAB PO SCH (20:45)
[2018-12-25] MEDS: NORTRIPTYLINE HCL 25 MG CAP PO SCH (20:45)
[2018-12-26] MEDS: AZTREONAM 2,000 MG in DEXTROSE 5% 100 ML IV SCH ×3 (03:07→18:26)
[2018-12-26] MEDS: OXYCODONE HCL IR 5 MG TAB (IMMEDIATE RELEASE) PO PRN ×4 (05:27→23:58)
[2018-12-26 05:56] LABS: Hemoglobin 10.6 g/dL (12.0-16.0); Mean Corpuscular Hgb Conc 33.1 g/dL (32-36); Mean Corpuscular Volume 90.4 fL (80-100); Mean Platelet Volume 10.3 fL (7.4-10.4); Platelet Count 186 K/uL (130-400); RDW Coefficient of Variation 17.5 % (11.5-14.5); RDW Standard Deviation 57.2 fL (36.4-46.3); Red Blood Count 3.54 M/uL (4.2-5.4); White Blood Count 7.02 K/uL (4.8-10.8)
[2018-12-26 06:27] LABS: BUN Creatinine Ratio 8.6 (10-20); Calcium 8.5 mg/dl (8.5-10.1); Creatinine Clr Calc Pharmacy 64.6 ml/min; Est GFR (African American) 81.7; Est GFR (Non-African American) 70.5; Potassium 4.3 mmol/L (3.5-5.1)
[2018-12-26] MEDS: THIAMINE HCL 100 MG TAB PO SCH (08:46)
[2018-12-26] MEDS: TAPENTADOL HCL ER 50 MG TABCR PO SCH ×2 (08:48→20:49)
[2018-12-26] MEDS: HYDROCORTISONE 1% OINT 30 GM TUBE EXT SCH ×2 (08:48→20:45)
[2018-12-26] MEDS: LACTOBACILLUS ACIDOPHILUS (FLORANEX) TAB PO SCH ×3 (08:49→20:39)
[2018-12-26] MEDS: CLOPIDOGREL BISULFATE 75 MG TAB PO SCH (08:49)
[2018-12-26] MEDS: AMLODIPINE BESYLATE 5 MG TAB PO SCH (08:49)
[2018-12-26] MEDS: GABAPENTIN 400 MG CAP PO SCH ×3 (08:50→20:43)
[2018-12-26] MEDS: METOPROLOL TARTRATE 25 MG TAB PO SCH ×2 (08:50→20:41)
[2018-12-26] MEDS: FOLIC ACID 1 MG TAB PO SCH (08:50)
[2018-12-26] MEDS: PANCREAZE (LIPASE 10,500U) CAP PO SCH ×3 (08:51→16:05)
[2018-12-26] MEDS: PANTOprazole 40 MG TAB PO SCH (08:52)
[2018-12-26] MEDS: NICOTINE 14 MG/24 HR PATCH TD SCH (08:53)
--- NOTE | 2018-12-26 10:34 | Infectious Disease Progress Nt ---
Date of Service December 26, 2018 Assessment & Plan (1) PICC line infection: continue IV abx for now, follow cultures blood and picc tip. would not place another picc line as she is nearing her stop date. cutlures negative to date, if remain negative, will likely d/c home on po abx to complete course. she has cipro already at home. will likely add po bactrim ds bid to complete course if blood cultures remain negative. Subjective feeling better. tolerating abx. afebrile. dressing at old picc site remains, denies pain, bleeding or draiange. no f/c. eating well. no pain at rle stump, dressing intact. blood and picc tip cultures negative to date. no n/v/d/abd pain, denies cp, sob, cough. all remaining ros reviewed and are negative. Physical Exam Vital Signs (Past 24 Hours): Last Vital Signs Temp 36.7 C 12/26/18 07:33 Pulse 76 12/26/18 07:33 Resp 16 12/26/18 07:33 BP 129/85 12/26/18 07:33 Pulse Ox 96 12/26/18 07:33 Constitutional: WD/WN, vitals as above Eyes: PERRL, conjunctivae normal, anicteric sclerae ENMT: external ear and nose normal, oropharynx normal Neck: normal visual inspection Respiratory: normal respiratory effort, lungs clear to auscultation Cardiovascular: RRR, no murmur, no edema Gastrointestinal (Abdomen): normal bowel sounds, soft, nontender, no hepatosplenomegaly Musculoskeletal: no cyanosis or clubbing, extremities motor strength 5/5 Skin: no rashes, warm and dry Psychiatric: A+Ox3, euthymic affect Results & Data Laboratory Results Microbiology 12/24/18 15:02 Catheter Tip, Picc Catheter Tip Culture - Final No growth 12/24/18 14:31 Blood Blood Culture - Preliminary No growth to date. 12/24/18 14:30 Blood Blood Culture - Preliminary No growth to date. (1) PICC line infection Encounter type: initial encounter Qualified Code(s): T80.219A - Unspecified infection due to central venous catheter, initial encounter
[2018-12-26] MEDS: CEROVITE ADV FORMULA TAB PO SCH (11:42)
--- NOTE | 2018-12-26 13:13 | Hospitalist Progress Note ---
Date of Service December 26, 2018 Assessment & Plan (1) PICC line infection: - Presented with erythema with discharge; leukocytosis and tachycardia on admission - IMPROVING - Blood Cx and PICC line tip so far with NGTD - Continue Daptomycin and Aztreonam currently - Oxycodone 10 mg Q6H; Nucynta 50 mg BID -- Patient is prescribed medical marijuana that she vapes - if this is brought in this would need properly secured; I am not opposed to her going outside to use when not receiving IV therapy - ID following - plan to continue IV Abx at this time with likely no need for repeat PICC line as she is due to finish Abx in near future (2) Tachycardia: - RESOLVED - maybe related to acute pain vs dehydration vs infection - Can come off telemetry monitoring (3) Status post below knee amputation of left lower extremity: - [place] [facility] [place] - With presence of an improving stump infection - MRSA and Pseudomonas - Was on Dapto and Cipro as outpatient - currently antibiotics as above and due to finish course soon - appreciate IDs input on conversion which is expected to be oral Present on Admission?: Yes (4) Chronic pain syndrome: - Nortriptyline 25 mg HS and Gabapentin 400 mg TID - Continue Oxycodone 10 mg Q6H RPN (most recent Rx filled on 12/16 per PDMP) -- Pt. has H/O obtaining narcotics from multiple providers -- please avoid increasing dose of oxycodone - Can order her home marijuana if brought in - not opposed to her utilizing this when not on IV infusions; can use Nucynta BID for now Present on Admission?: Yes (5) Paroxysmal atrial fibrillation: - Has maintained sinus rhythm on monitor - Started on Xarelto by manufacturing laborer [place] [facility] [place] - continue Xarelto 20 mg daily; Metoprolol 37.5 mg BID Present on Admission?: Yes (6) PVD (peripheral vascular disease): - S/P Bilateral Fem Endarterectomy (2016) - Plavix 75 mg daily - Statin on hold due to Daptomycin Present on Admission?: Yes (7) GERD (gastroesophageal reflux disease): - Continue Protonix 40 mg daily and Ranitidine 300 mg HS Present on Admission?: Yes (8) Chronic alcoholism: - Reports 2-3 drinks/daily; banana bag in ED - no signs of withdrawal at this time - Folic acid 1 mg daily, Thiamine 100 mg daily, and MVI Present on Admission?: Yes (9) Chronic pancreatitis: - Continue pancrelipase supplement with meals - no acute issues at this time Present on Admission?: Yes (10) Hyponatremia: - Chronic hyponatremia in setting of polydipsia and beer potomania. - Stable at this time and will monitor with routine labs Present on Admission?: Yes (11) HTN (hypertension): - Continue Amlodipine 10 mg daily and Metoprolol 37.5 mg BID as prescribed. Present on Admission?: Yes (12) Anxiety: - Ambien 10 mg HS for anxiety/insomnia. Present on Admission?: Yes (13) Dyslipidemia: - Holding statin in setting of Dapto therapy. Present on Admission?: Yes (14) Tobacco use disorder: - Smokes 1/2 PPD at home. - Nicotine patch ordered. Present on Admission?: Yes (15) DVT prophylaxis: - SCDs; Xarelto. Dispo: Can remove telemetry; Awaiting finalized cultures with expected oral conversion and plans to return home on D/C - hopefully next 1-2 days Subjective Reports feeling a bit better today. Still with chronic pain in her L stump but states the Nucynta is helping. Awaiting finalized cultures but clinically is improving. Verbalizes no new complaints. Has some looser stool but states this is stable since she has been on ABx and not worsening. Constitutional: no fever and no chills Ear, Nose, Mouth, Throat: no sore throat and no dysphagia Respiratory: no cough and no dyspnea Cardiovascular: no chest pain, no palpitations and no edema Gastrointestinal: + diarrhea/loose stools; no abdominal pain, no nausea, no vomiting and no constipation Genitourinary (Female): no dysuria Musculoskeletal: + joint pain (at L stump) and + problem reported (mild tenderness of RUE near previous picc line) Integumentary: + wounds (healing stump with linear scab present without drainage or erythema) and + erythema (RUE at site of previous PICC no drainage) Physical Exam Vital Signs (Past 24 Hours): Last Vital Signs Temp 37.3 C 12/26/18 11:28 Pulse 74 12/26/18 11:28 Resp 16 12/26/18 11:28 BP 126/78 12/26/18 11:28 Pulse Ox 94 12/26/18 11:28 Constitutional: WD/WN, vitals as above Eyes: + anicteric sclerae Neck: normal visual inspection and trachea midline Respiratory: normal respiratory effort, lungs clear to auscultation Cardiovascular: RRR, no murmur, no edema Gastrointestinal (Abdomen): Inspection/Auscultation: normal bowel sounds Percussion/Palpation: abdomen soft; abdomen nontender Musculoskeletal: Head/Neck/Chest: normocephalic and head atraumatic Extremities: no cyanosis and no clubbing well-approximated LLE stump with linear incision with scabbing without erythema or drainage Skin: + rash (mild at site of previous PICC without drainage) Neurologic: moves all extremities Psychiatric: A+Ox3, euthymic affect (1) PICC line infection Encounter type: initial encounter Qualified Code(s): T80.219A - Unspecified infection due to central venous catheter, initial encounter (2) Chronic pancreatitis Pancreatitis type: alcohol induced Qualified Code(s): K86.0 - Alcohol-induced chronic pancreatitis (3) HTN (hypertension) Hypertension type: essential hypertension Qualified Code(s): I10 - Essential (primary) hypertension
[2018-12-26] MEDS: DAPTOmycin 325 MG in SYRINGE 0 ML IV SCH (16:03)
[2018-12-26] MEDS: RIVAROXABAN 20 MG TAB PO SCH (16:03)
[2018-12-26] MEDS: ZOLPIDEM TARTRATE 10 MG TAB PO SCH (20:39)
[2018-12-26] MEDS: NORTRIPTYLINE HCL 25 MG CAP PO SCH (20:42)
[2018-12-27] MEDS: AZTREONAM 2,000 MG in DEXTROSE 5% 100 ML IV SCH ×2 (03:22→12:39)
[2018-12-27 06:16] LABS: Hematocrit (blood only) 33.9 % (37-47); Hemoglobin 11.3 g/dL (12.0-16.0); Mean Corpuscular Hgb Conc 33.3 g/dL (32-36); Mean Platelet Volume 10.7 fL (7.4-10.4); Platelet Count 191 K/uL (130-400); RDW Coefficient of Variation 17.6 % (11.5-14.5); RDW Standard Deviation 56.8 fL (36.4-46.3); Red Blood Count 3.81 M/uL (4.2-5.4); White Blood Count 9.36 K/uL (4.8-10.8)
[2018-12-27 06:46] LABS: BUN Creatinine Ratio 11.7 (10-20); Calcium 8.8 mg/dl (8.5-10.1); Creatinine Clr Calc Pharmacy 81.6 ml/min; Est GFR (African American) 108.8; Est GFR (Non-African American) 93.9; Potassium 3.9 mmol/L (3.5-5.1)
[2018-12-27] MEDS: OXYCODONE HCL IR 5 MG TAB (IMMEDIATE RELEASE) PO PRN ×2 (07:01→12:39)
[2018-12-27] MEDS: AMLODIPINE BESYLATE 5 MG TAB PO SCH (08:03)
[2018-12-27] MEDS: LACTOBACILLUS ACIDOPHILUS (FLORANEX) TAB PO SCH ×2 (08:03→13:48)
[2018-12-27] MEDS: GABAPENTIN 400 MG CAP PO SCH ×2 (08:03→13:48)
[2018-12-27] MEDS: METOPROLOL TARTRATE 25 MG TAB PO SCH (08:06)
[2018-12-27] MEDS: CEROVITE ADV FORMULA TAB PO SCH (08:06)
[2018-12-27] MEDS: PANTOprazole 40 MG TAB PO SCH (08:07)
[2018-12-27] MEDS: CLOPIDOGREL BISULFATE 75 MG TAB PO SCH (08:07)
[2018-12-27] MEDS: PANCREAZE (LIPASE 10,500U) CAP PO SCH ×2 (08:08→12:34)
[2018-12-27] MEDS: NICOTINE 14 MG/24 HR PATCH TD SCH (08:08)
[2018-12-27] MEDS: THIAMINE HCL 100 MG TAB PO SCH (08:08)
[2018-12-27] MEDS: FOLIC ACID 1 MG TAB PO SCH (08:09)
[2018-12-27] MEDS: TAPENTADOL HCL ER 50 MG TABCR PO SCH (08:25)
[2018-12-27] MEDS: HYDROCORTISONE 1% OINT 30 GM TUBE EXT SCH (11:00)
--- NOTE | 2018-12-27 12:59 | Infectious Disease Progress Nt ---
Date of Service December 27, 2018 Assessment & Plan (1) PICC line infection: cultures remain negative. ok to transition to po abx upone d/c. She has cipro at home, can give remaining MRSA treatment with bactrim ds 1 po bid to complete until stop date of 01/03. Subjective cath tip culture negative and final. blood cultures negative, tolerating abx. afebrile. Physical Exam Vital Signs (Past 24 Hours): Last Vital Signs Temp 36.9 C 12/27/18 07:48 Pulse 80 12/27/18 07:48 Resp 16 12/27/18 07:48 BP 104/67 12/27/18 07:48 Pulse Ox 95 12/27/18 07:48 Results & Data Laboratory Results Microbiology 12/24/18 15:02 Catheter Tip, Picc Catheter Tip Culture - Final No growth 12/24/18 14:31 Blood Blood Culture - Preliminary No growth to date. 12/24/18 14:30 Blood Blood Culture - Preliminary No growth to date. (1) PICC line infection Encounter type: initial encounter Qualified Code(s): T80.219A - Unspecified infection due to central venous catheter, initial encounter
[2018-12-27] MEDS: DAPTOmycin 325 MG in SYRINGE 0 ML IV SCH (15:25)
[2018-12-27] MEDS: RIVAROXABAN 20 MG TAB PO SCH (15:25)
--- NOTE | 2018-12-27 18:59 | Discharge Summary ---
Date of Service December 27, 2018 Admission HPI Per Admitting Provider Ms. Garcia is a 58 year old female with past medical history of peripheral vascular disease (s/p bilat femoral endarterectomy in Sep 2016), left BKA, alcoholism leading to chronic hyponatremia due to polydipsia and beer potomania, chronic pancreatitis, GERD, HTN, anxiety/depression, HLD, paroxysmal A. fib who presented for right upper extremity cellulitis. Pt. was recently admitted from 11/20-11/25/18 for a left stump infection; wound culture was positive for MRSA and Pseudomonas. She was discharged with IV Daptomycin and PO Ciprofloxacin. She has been evaluated by home nursing for PICC line dressing changes (qMonday). Pt. states she developed mild redness after PICC line insertion due to allergic reaction to dressing. Home nurse changed her dressing on Wednesday December 19, 2018. She noticed dressing was loosening on her skin throughout the week; home nurse returned on November to reapply a new dressing. Dressing almost fell off night into Wednesday morning. She was reassessed this morn ing by home health; dressing was changed and significant erythema/irritation was noted around PICC line insertion site along with areas of purulent discharge. Denies fever/chills, headache, chest pain, SOB, LE edema. Denies nausea/vomiting, abdominal pain, dysuria, diarrhea or constipation. PICC line was removed in the ER. Catheter tip culture and blood cultures x 2 are pending. She received Daptomycin IV x 1 dose, Oxycodone 10 mg PO x 1 dose and banana bag in the ER. Will be admitted for further evaluation, wound consult, IV antibiotics. Principal Diagnosis RUE Cellulitis with PICC Line Discharge Exam Constitutional WD/WN, vitals as above Eyes + anicteric sclerae ENMT Ears: no hearing impairment Neck normal visual inspection and trachea midline Respiratory normal respiratory effort, lungs clear to auscultation Cardiovascular RRR, no murmur, no edema Gastrointestinal (Abdomen) Inspection/Auscultation: normal bowel sounds Percussion/Palpation: abdomen soft; abdomen nontender Musculoskeletal Head/Neck/Chest: normocephalic and head atraumatic L BKA with well-approximated incision of stump with scab formation but no erythema or drainage Skin RUE at site of PICC line (now removed) is mildly irritated from tape of dressing but no swelling or drainage Neurologic moves all extremities Psychiatric A+Ox3, euthymic affect Discharge Data Allergies Allergy/AdvReac Type Severity Reaction Status Date / Time amoxicillin Allergy Severe LIVER Verified 12/24/18 14:08 FAILURE clavulanic acid Allergy Severe LIVER Verified 12/24/18 14:08 FAILURE adhesive Allergy Mild Verified 12/24/18 14:08 acetaminophen Allergy Unknown LIVER Verified 12/24/18 14:08 DAMAGE-DUE TO FAILURE guanfacine Allergy Unknown Verified 12/24/18 14:08 nifedipine Allergy Unknown Verified 12/24/18 14:08 Consultations 12/24/18 15:57 ED Decision to Admit Stat 12/24/18 18:23 Consult Infectious Diseases Routine Hospital Course (1) PICC line infection: - Presented with erythema with discharge; leukocytosis and tachycardia on admission - IMPROVING - Blood Cx and PICC line tip remains NGTD - Initially used Daptomycin and Aztreonam and will convert to Clinda BID and Bactrim BID until 01/03 - ID followed - plan as above and will F/U as outpatient (2) Tachycardia: - RESOLVED - maybe related to acute pain vs dehydration vs infection (3) Status post below knee amputation of left lower extremity: - Amputation (2016) at [facility] [place] with revision in Oct 2018 - With presence of an improving stump infection - MRSA and Pseudomonas - Was on Dapto and Cipro as outpatient - currently antibiotics as above and due to finish course soon - appreciate IDs input on oral conversion (4) Chronic pain syndrome: - Nortriptyline 25 mg HS and Gabapentin 400 mg TID - Continue Oxycodone 10 mg Q6H RPN (most recent Rx filled on 12/16 per PDMP) -- There is concern of multiple Rx from multiple providers which mostly are from [place] where she gets her BKA revision/treatment and they are normally for short durations - Did use Nucynta BID here with good tolerance however was unsure of the financial component. Did give a 3 day supply of Oxycodone as she only has a couple days left and uses her PRN dosing rather consistent. -- Maybe Nucynta would be a good option if financially able -- However, did have a long discussion as she does get medical marijuana and drinks alcohol and may have difficulty with ongoing prescriptions for opiates on top of these other options. She is hoping the marijuana will sustain her pain and anxiety needs without opiates but does admit to many years of use and likely does have a level of tolerance. (5) Paroxysmal atrial fibrillation: - Has maintained sinus rhythm on monitor; She had a 2 minute run of A Fib on 12/26 which was asymptomatic and rate controlled but converted spontaneously - Continue Xarelto 20 mg daily; Metoprolol 37.5 mg BID (6) PVD (peripheral vascular disease): - S/P Bilateral Fem Endarterectomy (2016) - Plavix 75 mg daily (7) GERD (gastroesophageal reflux disease): - Continue Protonix 40 mg daily and Ranitidine 300 mg HS (8) Chronic alcoholism: - Reports 2-3 drinks/daily; banana bag in ED - no signs of withdrawal at this time (9) Chronic pancreatitis: - Continue pancrelipase supplement with meals - no acute issues at this time (10) Hyponatremia: - Chronic hyponatremia in setting of polydipsia and beer potomania. - Stable at this time (11) HTN (hypertension): - Continue Amlodipine 10 mg daily and Metoprolol 37.5 mg BID as prescribed. (12) Anxiety: - Ambien 10 mg HS for anxiety/insomnia. (13) Tobacco use disorder: - Smokes 1/2 PPD at home Total Time Total Time Spent Total Time Spent (In Minutes): Greater than 30 minutes Discharge Plan Discharge Items Patient Disposition: Home - Home Health Services Reason For Visit: CELLULITIS OF RT UPPER EXTREMITY Discharge Diagnosis: Skin Infection of Right Arm Discharge Goals: Decrease discomfort, Improve disease control and Increase independence Activity: Resume your previous activity Non-emergency contact: Primary Care Provider Call non-emergency contact if: you have any medication questions, your symptoms worsen and you have a fever Follow-up/Referrals: Gemma Bhatia DO [Family Provider] - 01/03/19 11:00 am (Please, follow up with Dr. Bhatia on WednesdayJanuary 03 at 11:00 am. *This office is located in [address] of [facility] - big building next to the hospital. If you need to change this appointment, call the office at [phone].) Janie Back PA-C [Primary Care Provider] - (Please, follow up with Janie Back *If you need to change this appointment, call the office at [phone].) Diet: Low Fat Addtl Provider Instructions: PICC Line Skin Infection: - Thankfully the blood cultures did not grow anything to suggest a blood stream infection so likely this was just limited to the skin. - You do not need to have a new PICC line placed and you are almost done with antibiotics - Take Cipro 500 mg twice a day until 01/03. Start this medication tonight. - Take Bactrim twice a day as well until 4.9. Start this medication tonight. Both antibiotics will be sent to your pharmacy - Thankfully both your arm and your leg look a lot better and will just need to be monitored. Home Medications: - Continue your home medications as previously prescribed. We did not make adjustments to these. - Hopefully the use of the marijuana will reduce the need to opiate medications. We did use Nucynta here but this is a medication that can be expensive in regards to co-pays and could be explored as an alternative to Oxycodone. You can discuss this with your family doctor. Prescriptions: New sulfamethoxazole-trimethoprim [Bactrim DS] 800-160 mg tablet 1 tab PO Q12H Qty: 15 RF: 0 Continued amlodipine 10 mg tablet 10 mg PO DAILY RF: 0 pancrelipase PO AC RF: 0 acamprosate 333 mg tablet,delayed release (DR/EC) 333 mg PO TID RF: 0 Xarelto 20 mg tablet 20 mg PO DAILY RF: 0 sennosides [senna] 8.6 mg Tablet 8.6 mg PO BID PRN (Reason: Constipation) RF: 0 polyethylene glycol 3350 [Miralax] 17 gram Powder In Packet 17 g PO DAILY PRN (Reason: Constipation) RF: 0 ranitidine HCl 300 mg tablet 300 mg PO HS RF: 0 promethazine 25 mg suppository 25 mg GA Q6H PRN (Reason: Nausea) RF: 0 clopidogrel 75 mg tablet 75 mg PO QAM RF: 0 pantoprazole 40 mg tablet,delayed release (DR/EC) 40 mg PO QAM RF: 0 calcium carbonate [Tums] 200 mg calcium (500 mg) Tablet,Chewable 200 mg PO QID PRN (Reason: Indigestion) RF: 0 zolpidem 10 mg tablet 10 mg PO HS RF: 0 diclofenac sodium 1 % gel 1 applic Topical UD RF: 0 ciprofloxacin HCl 500 mg Tablet 500 mg PO BID Qty: 15 RF: 1 oxycodone 5 mg tablet 10 mg PO Q6 PRN (Reason: Pain) 3 Days Qty: 24 RF: 0 Medical Marijuana 1 dose PO DIRECTED RF: 0 triamcinolone acetonide 0.1 % Cream 1 applic EXT TID Qty: 1 RF: 0 Certavite-Antioxidant 18-400 mg-mcg Tablet 1 tab PO QAM Qty: 90 RF: 3 Lactinex 1 million cell tablet,chewable 3 tab PO TID 28 Days Qty: 252 RF: 1 nortriptyline 25 mg capsule 25 mg PO HS Qty: 30 RF: 1 gabapentin 400 mg capsule 400 mg PO TID Qty: 90 RF: 0 metoprolol tartrate 37.5 mg tablet 37.5 mg PO BID Qty: 60 RF: 2 Discontinued daptomycin 350 mg recon soln 325 mg IV DAILY 42 Days Qty: 10 RF: 1 Stand-Alone Forms: [facility] Discharge Orders: Discharge Order (Routine); Ordered 12/27/18 Ordered By: Danielle Lorenzo Admission Data Admit Date/Time: 12/24/18 17:05 Attending Provider: Bon Rebollar Admit Provider: Ирина Hughes Primary Care Provider: Janie Back Other Providers: Gemma Bhatia ; Manjit Corona Service: Medical Other Interventions: Discharge Summary Assessment (RN) Last Done: 12/27/18 16:05 Pending Studies at Discharge: No DC Date/Time DO NOT enter until pt leaves facility: 12/27/18 16:25 Supervising Physician Co-Signing Physician Notes Attending note: patient seen and examined with Danielle Lorenzo PA-C. I agree with her discharge summary. - Infected PICC line: appreciate ID assistance will send home on Bactrim for seven more days no fever, WBC stable patient feeling well for rest of details see the summary
== END 2018-12-27 16:25 | disposition home health service (06) | DRG 315 ==
LOC: ED 12:48 → 2N 17:05 → SUATTDRO 17:05 → 2N 17:45

== ENCOUNTER 2019-07-31 10:46 | Inpatient (IN) ==
[2019-07-31] MEDS ORDERED: SENNA 8.6 MG TAB PO PRN (12:39)
[2019-07-31] MEDS ORDERED: POLYETHYLENE (MIRALAX) 17 GM PACK PO PRN (12:39)
[2019-07-31] MEDS ORDERED: TRAMADOL HCL 50 MG TABLET PO PRN (12:39)
[2019-07-31] MEDS ORDERED: DOCUSATE SODIUM 100 MG CAP PO PRN (12:39)
[2019-07-31] MEDS ORDERED: CALCIUM CARBONATE 500 MG CHEWABLE TAB PO PRN (12:46)
--- NOTE | 2019-07-31 13:33 | History & Physical Report ---
Date of Service July 31, 2019 Assessment & Plan (1) Sinus node dysfunction: (1) Sinus node dysfunction: Patient with monitor in place, following with Cardiology. Results with atrial and ventricular bigeminy, atrial fibrillation and flutter as well as sinus bradycardia with pauses, (6 sec, 7.7 sec) -Admit to medical floor with telemetry monitoring -Hold Metoprolol and Norvasc for now -Cardiology consulted - plan for pacemaker placement -Patient is to be NPO after midnight tonight Patient with skin sensitivity, allergy to adhesive. She has some small closed blisters on right chest wall from adhesive with severe itching. -Benadryl as needed -Lotion/skin care at patient's request -Cautious use of adhesive agents Present on Admission?: Yes (2) GERD (gastroesophageal reflux disease): Chronic. Stable -Continue Protonix -Continue TUMS PRN Present on Admission?: Yes (3) Hyponatremia: Awaiting labs. Thought to be secondary to low solute intake, potomania Present on Admission?: Yes (4) Chronic pancreatitis: Stable at present -Creon with meals and snacks Present on Admission?: Yes (5) Chronic alcoholism: Improved. Patient is cutting back on drinking -Watch for signs of EtOH withdrawal Present on Admission?: Yes (6) Paroxysmal atrial fibrillation: Rate controlled -EKG pending -Hold anticoagulation for now, pacemaker in AM -Hold Metoprolol for now due to sinus node dysfunction, bradycardia with pause Present on Admission?: Yes (7) Dyslipidemia: Chronic. -Continue Atorvastatin Present on Admission?: Yes (8) HTN (hypertension): Blood pressure well controlled -Hold Amlodipine and Metoprolol for now due to sinus block -Continue to monitor Present on Admission?: Yes (9) PVD (peripheral vascular disease): Chronic. 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 Patient manages with medical marijuana and Lyrica -continue Lyrica -Tramadol 50mg po q 6 hours PRN F/E/N - Heplock. Monitor electrolytes and replete as needed, Heart healthy diet for now, NPO after midnight for pacemaker placement in AM, bowel regimen as needed Ppx - Holding Eliquis for planned procedure, continue Protonix Code - Full per discussion with patient Dispo - Med with Tele - possible PCU after pacer placement Present on Admission?: Yes (2) Stump neuralgia: (3) Insomnia: (4) GERD (gastroesophageal reflux disease): (5) Hyponatremia: (6) Chronic alcoholism: (7) PVD (peripheral vascular disease): (8) HTN (hypertension): (9) Dyslipidemia: (10) Paroxysmal atrial fibrillation: History of Present Illness Chief Complaint: black outs Primary Care Provider: Janie Back PA-C Anisha Garcia is a 59yo C female with history of HTN/HLP/PVD/GERD presenting from the outpatient Cardiology clinic for pacemaker placement. She reports having "black outs" for the last couple of months. They occur at random, no associated CP/palpitations/seizure activity/numbness/weakness. Black out typically occurs without warning, very rarely she experiences a prodrome of d izziness/lightheadedness. She was seen by Cardiology and has been wearing a continuous library monitor which captured multiple events, most notably atrial bigeminy, ventricular bigeminy, atrial fibrillation and flutter as well as sinus bradycardia with pauses up to 7.7 seconds. She was sent by Cardiology today for direct admission, plan for pacemaker placement. Her witnessed a recent event - reports that she is out for 4-5 seconds then returns to normal. No associated seizure activity/incontinence. Patient with no acute complaints at present. Has some stump discomfort at her amputation site. Also with itchy rash on her right chest wall from adhesive tape Allergies Allergy/AdvReac Type Severity Reaction Status Date / Time amoxicillin Allergy Severe LIVER Verified 06/06/19 10:56 FAILURE clavulanic acid Allergy Severe LIVER Verified 06/06/19 10:56 FAILURE adhesive Allergy Mild Unknown Verified 06/06/19 10:56 acetaminophen Allergy Unknown LIVER Verified 06/06/19 10:56 DAMAGE-DUE TO FAILURE guanfacine Allergy Unknown Unknown Verified 06/06/19 10:56 nifedipine Allergy Unknown Unknown Verified 06/06/19 10:56 Home Medications Home Medications Medication Instructions Recorded Confirmed Type clopidogrel 75 mg PO QAM 07/18/18 07/31/19 History pantoprazole 40 mg PO QAM 07/18/18 07/31/19 History ranitidine HCl 300 mg PO HS 07/18/18 07/31/19 History zolpidem 10 mg PO HS 07/18/18 07/31/19 History amlodipine 10 mg tablet 10 mg PO DAILY 12/20/18 07/31/19 History rivaroxaban 20 mg tablet 20 mg PO QPM 12/20/18 07/31/19 History calcium carbonate 200 mg calcium 200 mg PO DAILY PRN tab 05/17/19 07/31/19 History (500 mg) chewable tablet metoprolol tartrate 25 mg tablet 37.5 mg PO BID tab 05/17/19 07/31/19 History ondansetron HCl 4 mg tablet 8 mg PO DAILY PRN tab 05/17/19 07/31/19 History atorvastatin 80 mg tablet 80 mg PO DAILY tab 06/06/19 07/31/19 History pregabalin 150 mg capsule 150 mg PO BID 06/06/19 07/31/19 History [id number] [Creon] 1 cap PO TID 07/31/19 07/31/19 History meclizine 25 mg PO TID PRN 07/31/19 07/31/19 History Past Med/Surg History Social History Preferred Language: Indonesian Communication Ability: Effective 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 Beliefs That Will Affect Care: None marital status: Current Living Situation: Spouse current occupation: Retired Other Information That Helps Us Care for You: No Feels Safe at Home: Yes Safety Concerns: Feels Safe At This Time Smoking Status: Former smoker Tobacco Type: cigarettes ; Cigarettes Per Day: 1/2 pack ; Second Hand Exposure: No ; Hx Alcohol Use: Yes Alcohol type: beer Hx Substance Use: Yes substance use type: marijuana Substance Use Type Other:: Patient uses medical marijuana Last Used Substance: Days (ago) Review of Systems Review of Systems: All systems reviewed & are unremarkable except as noted in HPI & below Physical Exam Physical Exam: General: patient resting comfortably, NAD, non-toxic in appearance, AA&O x 4 Skin: warm, dry, intact,small blisters on right chest, erythematous HEENT: NC/AT, PERRL, EOMI, anicteric sclera, conjunctiva without injection, external ear normal to inspection and nontender, nares patent, moist mucus membranes, dentition intact, no oropharyngeal lesions, neck supple, trachea midline, no LAD, no thyromegaly, no JVD Heart: +S1/S2, regular, no m/r/g Lungs: equal air entry bilaterally, no rales/rhonchi/wheezes Abd: +BS, soft, NT/ND, no masses/organomegaly/ascites Ext: warm, 2+ pulses in UE/LE bilaterally, s/p left BKA, no evidence of infection Neuro: nonfocal, patient AA&O x 4, speech intact, no facial droop, moving all extremities on command with equal strength 5/5 Results & Data Vital Signs (Past 12 Hours) Vital Signs Temp Pulse Pulse Resp BP Pulse Ox 07/31/19 11:47 72 07/31/19 11:41 37.0 C 78 18 152/86 H 95 Laboratory Results Lab Results 07/31/19 Range/Units 13:01 Phosphorus 3.8 (2.5-4.9) mg/dl Magnesium 2.2 (1.8-2.4) mg/dl Code Status & VTE Plan Code Status FULL VTE Prophylaxis Plan VTE Prophylaxis will be ordered: Yes PG Care Time/CCT Total # of Minutes Spent Total Time Spent with Patient: Total time spent is greater than 50% in coordination of care (as documented) at patient's floor/unit and/or counseling p atient: (1) Insomnia Insomnia type: unspecified Qualified Code(s): G47.00 - Insomnia, unspecified (2) GERD (gastroesophageal reflux disease) Esophagitis presence: esophagitis presence not specified Qualified Code(s): K21.9 - Gastro-esophageal reflux disease without esophagitis (3) HTN (hypertension) Hypertension type: essential hypertension Qualified Code(s): I10 - Essential (primary) hypertension
[2019-07-31 13:37] LABS: Magnesium 2.2 mg/dl (1.8-2.4); Phosphorus 3.8 mg/dl (2.5-4.9)
[2019-07-31 14:22] LABS: INR 1.1 (0.9-1.1); Prothrombin Time 11.3 Seconds (9.0-12.0)
[2019-07-31 14:23] LABS: Albumin Level 3.7 gm/dl (3.4-5.0); Bilirubin Direct 0.1 mg/dl (0-0.2); Creatinine Clr Calc Pharmacy 62.6 ml/min; Est GFR (African American) 73.2; Est GFR (Non-African American) 63.1; Potassium 4.3 mmol/L (3.5-5.1)
[2019-07-31 14:25] LABS: Bilirubin,Total 0.3 mg/dl (0.2-1); Total Protein 7.9 gm/dl (6.4-8.2)
[2019-07-31 14:27] LABS: Eosinophils # (auto) 0.27 K/uL (0-0.5); Eosinophils % (auto) 2.6 %; Hematocrit (blood only) 38.9 % (37-47); Hemoglobin 13.5 g/dL (12.0-16.0); Immature Granulocytes # (auto) 0.03 K/uL (0.00-0.02); Immature Granulocytes % (auto) 0.3 %; Lymphocytes # (auto) 2.56 K/uL (1.2-3.4); Lymphocytes % (auto) 24.8 %; Mean Corpuscular Hgb Conc 34.7 g/dL (32-36); Mean Corpuscular Volume 83.5 fL (80-100); Mean Platelet Volume 11.5 fL (7.4-10.4); Monocytes # (auto) 0.77 K/uL (0.11-0.59); Monocytes % (auto) 7.4 %; Neutrophils # (auto) 6.61 K/uL (1.4-6.5); Neutrophils % (auto) 63.9 %; Platelet Count 290 K/uL (130-400); RDW Coefficient of Variation 17.3 % (11.5-14.5); RDW Standard Deviation 52.7 fL (36.4-46.3); Red Blood Count 4.66 M/uL (4.2-5.4); White Blood Count 10.34 K/uL (4.8-10.8)
[2019-07-31] MEDS ORDERED: PANCREAZE (LIPASE 4,200U) CAP PO ONE (14:30)
[2019-07-31 14:34] LABS: Calcium 9.4 mg/dl (8.5-10.1)
[2019-07-31] MEDS: DiphenhydrAMINE HCL 50 MG/ML VIAL IV PRN ×2 (14:54→21:55)
[2019-07-31] MEDS: PANCREAZE (LIPASE 4,200U) CAP PO SCH (17:06)
[2019-07-31] MEDS: MoRPHine SULFATE 2 MG/ML CARP IV PRN (17:52)
[2019-07-31] MEDS: ZOLPIDEM TARTRATE 10 MG TAB PO SCH (20:19)
[2019-07-31] MEDS: PREGABALIN 150 MG CAP PO SCH (20:19)
[2019-07-31] MEDS ORDERED: Nursing to Pharmacy Communication ONE (20:38)
--- NOTE | 2019-07-31 20:38 | Cardiology Consultation ---
Date of Consultation July 31, 2019 Assessment & Plan (1) Sinus node dysfunction: She has clearly documented sinus node dysfunction with symptomatic episodes of sinus arrest. She also has some conversion pauses. She had 1 episode recorded which did suggest an element of AV block as well. I doubt that there is a neurologic cause for her syncope. Seems reasonable to conclude that this rhythm abnormality is responsible for her episodes of syncope and in fact, 1 episode was well correlated with this arrhythmia. I do not believe the small doses of AV rich agents are responsible for these events, and she will require that therapy due to her episodes of paroxysmal atrial fibrillation. She will require a pacemaker due to symptomatic non reversible sinus node dysfunction. We discussed the risks benefits and alternatives to a permanent pacemaker. Her main concern is infection. We will plan on proceeding with dual-chamber implant tomorrow. (2) Paroxysmal atrial fibrillation: She is not appear to be overtly symptomatic. She did have some episodes of paroxysmal atrial fibrillation recorded during her event monitoring. She is on appropriate anticoagulation with Xarelto. I suppose she is on clopidogrel in addition to Xarelto due to her peripheral vascular disease. This does increase her risk of bleeding. The new pacemaker will allow us to track her atrial fibrillation and provide atrial therapies in the hopes of reducing these events. History of Present Illness Reason for Consultation: Bradycardia, syncope Requesting Physician: Jerome Attending Physician: Bisi Cano DO History of Present Illness The patient is a 59 year old woman with a history of paroxysmal atrial fibrillation. She also has a history of syncope having passed out this Summer at the [facility]. 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 Generally she is in a wheelchair but is just learning to use a prosthetic and occasionally ambulates with a walker. She has some ability to tr ansfer from the chair to a bed etc. She has had witnessed episodes of syncope. Patient states that she does have a very brief prodrome of dizziness or lightheadedness. One episode did occur the range where as mentioned above. According to witnesses she was unconscious for just a few seconds. Afterwards the patient seemed to feel well. She has other episodes of dizziness which did not result in syncope. Based on the symptom she was advised to consider an MRI of the brain and was also prescribed a 30 day event monitor. Patient did have another episode of syncope a few days ago and this was associated with an episode of sinus arrest. Additional recordings from her device demonstrates sinus arrest and conversion pauses from paroxysmal atrial fibrillation. She generally is not aware of palpitations. She does not report symptoms of chest discomfort either at rest or with minimal activity. She did have some pain involving the left leg stump, but this appears to be improved. She has some pinching involving the left leg stump. She continues to smoke. She does not report breathing difficulties at rest. She denies any orthopnea or paroxysmal nocturnal dyspnea. Allergies Allergy/AdvReac Type Severity Reaction Status Date / Time amoxicillin Allergy Severe LIVER Verified 06/06/19 10:56 FAILURE clavulanic acid Allergy Severe LIVER Verified 06/06/19 10:56 FAILURE adhesive Allergy Mild Unknown Verified 06/06/19 10:56 acetaminophen Allergy Unknown LIVER Verified 06/06/19 10:56 DAMAGE-DUE TO FAILURE guanfacine Allergy Unknown Unknown Verified 06/06/19 10:56 nifedipine Allergy Unknown Unknown Verified 06/06/19 10:56 Home Medications Home Medications Medication Instructions Recorded Confirmed Type clopidogrel 75 mg PO QAM 07/18/18 07/31/19 History pantoprazole 40 mg PO QAM 07/18/18 07/31/19 History ranitidine HCl 300 mg PO HS 07/18/18 07/31/19 History zolpidem 10 mg PO HS 07/18/18 07/31/19 History amlodipine 10 mg tablet 10 mg PO DAILY 12/20/18 07/31/19 History rivaroxaban 20 mg tablet 20 mg PO QPM 12/20/18 07/31/19 History calcium carbonate 200 mg calcium 200 mg PO DAILY PRN tab 05/17/19 07/31/19 History (500 mg) chewable tablet metoprolol tartrate 25 mg tablet 37.5 mg PO BID tab 05/17/19 07/31/19 History ondansetron HCl 4 mg tablet 8 mg PO DAILY PRN tab 05/17/19 07/31/19 History atorvastatin 80 mg tablet 80 mg PO DAILY tab 06/06/19 07/31/19 History pregabalin 150 mg capsule 150 mg PO BID 06/06/19 07/31/19 History [id number] [Creon] 1 cap PO TID 07/31/19 07/31/19 History meclizine 25 mg PO TID PRN 07/31/19 07/31/19 History Patient History Social History Preferred Language: Belarusian Communication Ability: Effective Superintendent Sales Required: No Beliefs That Will Affect Care: None marital status: Current Living Situation: Spouse current occupation: Retired Other Information That Helps Us Care for You: No Feels Safe at Home: Yes Safety Concerns: Feels Safe At This Time Smoking Status: Former smoker Tobacco Type: cigarettes ; Cigarettes Per Day: 1/2 pack ; Second Hand Exposure: No ; Hx Alcohol Use: Yes Alcohol type: beer Hx Substance Use: Yes substance use type: marijuana Substance Use Type Other:: Patient uses medical marijuana Last Used Substance: Days (ago) Review of Systems Review of Systems: All systems reviewed & are unremarkable except as noted in HPI & below Itching around the incision on her BKA stump. Physical Exam Physical Exam: She is alert and oriented x3. Mood affect appear normal. She answered all questions appropriately. HEENT: Sclerae are anicteric. Pupils are equal and reactive to light and accommodation. Extraocular movements were intact. Neuro: Cranial nerves intact Neck: Examination of the submandibular region did not reveal any significant lymphadenopathy. Carotids are palpable bilaterally and free of bruits on auscultation. There was no evidence of jugular venous distention. The thyroid was not enlarged. Lungs: Lungs are clear to auscultation bilaterally. There are no rales wheezes or rhonchi. She has normal respiratory effort without use of accessory muscles. There is normal pulmonary excursion. Cardiac: The rhythm was regular. S1 and S2 were normal. There are no murmurs on examination. The PMI was not markedly displaced on palpation. Abdomen: The abdomen was soft and nontender. Extremities: Left below-knee amputation. Incision at that site appears well healed without drainage or significant erythema. She does have palpable radial pulses bilaterally the left more prominent than the right. Skin: There are no rashes noted on examination today. Results & Data Vital Signs (Past 12 Hours) Vital Signs Temp Pulse Pulse Resp BP BP Pulse Ox 07/31/19 19:25 36.7 C 66 20 113/72 97 07/31/19 16:00 72 07/31/19 14:59 37.2 C 77 20 138/85 96 07/31/19 11:47 72 07/31/19 11:41 37.0 C 78 18 152/86 H 95 Laboratory Results Abnormal Lab Results 07/31/19 07/31/19 07/31/19 13:01 13:07 13:07 WBC 10.34 RBC 4.66 Hgb 13.5 Hct 38.9 MCV 83.5 MCH 29.0 MCHC 34.7 RDW Std Deviation 52.7 H RDW Coeff of Marlon 17.3 H Plt Count 290 MPV 11.5 H Immature Gran % (Auto) 0.3 Neut % (Auto) 63.9 Lymph % (Auto) 24.8 [place] % (Auto) 7.4 Eos % (Auto) 2.6 Baso % (Auto) 1.0 Immature Gran # (Auto) 0.03 H Neut # (Auto) 6.61 H Lymph # (Auto) 2.56 [place] # (Auto) 0.77 H Eos # (Auto) 0.27 Baso # (Auto) 0.10 PT INR Sodium 130 L Potassium 4.3 Chloride 100 Carbon Dioxide 23 Anion Gap 7.0 BUN 5 L Creatinine 0.98 Est Cr Clr Drug Dosing 62.6 Est GFR ( Amer) 73.2 Est GFR (Non-Af Amer) 63.1 BUN/Creatinine Ratio 5.0 L Glucose 148 H Calcium 9.4 Phosphorus 3.8 Magnesium 2.2 Total Bilirubin 0.3 Direct Bilirubin 0.1 AST 27 ALT 34 Alkaline Phosphatase 110 Total Protein 7.9 Albumin 3.7 07/31/19 13:47 WBC RBC Hgb Hct MCV MCH MCHC RDW Std Deviation RDW Coeff of Marlon Plt Count MPV Immature Gran % (Auto) Neut % (Auto) Lymph % (Auto) [place] % (Auto) Eos % (Auto) Baso % (Auto) Immature Gran # (Auto) Neut # (Auto) Lymph # (Auto) [place] # (Auto) Eos # (Auto) Baso # (Auto) PT 11.3 INR 1.1 Sodium Potassium Chloride Carbon Dioxide Anion Gap BUN Creatinine Est Cr Clr Drug Dosing Est GFR ( Amer) Est GFR (Non-Af Amer) BUN/Creatinine Ratio Glucose Calcium Phosphorus Magnesium Total Bilirubin Direct Bilirubin AST ALT Alkaline Phosphatase Total Protein Albumin Diagnostic Findings Echocardiogram performed approximately one year ago demonstrated preserved LV systolic function. NO significant valvular heart disease. PG Care Time/CCT Total # of Minutes Spent Total Time Spent with Patient: Total time spent is greater than 50% in coordination of care (as documented) at patient's floor/unit and/or counseling patient:
[2019-08-01] MEDS: MoRPHine SULFATE 2 MG/ML CARP IV PRN ×3 (02:54→20:59)
[2019-08-01] MEDS: PANCREAZE (LIPASE 4,200U) CAP PO SCH ×3 (07:30→16:21)
[2019-08-01] MEDS: PREGABALIN 150 MG CAP PO SCH ×2 (07:30→20:50)
[2019-08-01] MEDS: PANTOprazole 40 MG TAB PO SCH (07:31)
[2019-08-01] MEDS: DiphenhydrAMINE HCL 50 MG/ML VIAL IV PRN ×2 (07:49→14:18)
[2019-08-01 08:41] LABS: Basophils # (auto) 0.04 K/uL (0-0.2); Basophils % (auto) 0.7 %; Eosinophils # (auto) 0.16 K/uL (0-0.5); Eosinophils % (auto) 2.7 %; Hematocrit (blood only) 36.2 % (37-47); Hemoglobin 12.1 g/dL (12.0-16.0); Immature Granulocytes # (auto) 0.02 K/uL (0.00-0.02); Immature Granulocytes % (auto) 0.3 %; Lymphocytes % (auto) 27.3 %; Mean Corpuscular Hemoglobin 28.3 pg (25-34); Mean Corpuscular Hgb Conc 33.4 g/dL (32-36); Mean Corpuscular Volume 84.8 fL (80-100); Mean Platelet Volume 11.1 fL (7.4-10.4); Monocytes # (auto) 0.54 K/uL (0.11-0.59); Monocytes % (auto) 9.2 %; Neutrophils # (auto) 3.51 K/uL (1.4-6.5); Neutrophils % (auto) 59.8 %; Platelet Count 203 K/uL (130-400); RDW Coefficient of Variation 17.5 % (11.5-14.5); RDW Standard Deviation 53.8 fL (36.4-46.3); Red Blood Count 4.27 M/uL (4.2-5.4); White Blood Count 5.87 K/uL (4.8-10.8)
[2019-08-01] MEDS ORDERED: ATORVASTATIN 40 MG TAB PO SCH ×2 (09:00→21:00)
--- NOTE | 2019-08-01 09:03 | Cardiology Consultation ---
Date of Consultation August 01, 2019 History of Present Illness Attending Physician: Ирина Hughes MD She had number of questions this morning. She has any further syncopal episodes. She has any chest pain or chest pressure. She has any shortness of breath. She is very thirsty as she is n.p.o. She is relieved that there is an etiology for her syncopal episodes. She has a cough fevers chills or sweats. She denies any chest pain or chest pressure. She does walk with a walker due to her BKA. she is in physical therapy on a regular basis. The rest of a complete review systems otherwise negative Allergies Allergy/AdvReac Type Severity Reaction Status Date / Time amoxicillin Allergy Severe LIVER Verified 06/06/19 10:56 FAILURE clavulanic acid Allergy Severe LIVER Verified 06/06/19 10:56 FAILURE adhesive Allergy Mild Unknown Verified 06/06/19 10:56 acetaminophen Allergy Unknown LIVER Verified 06/06/19 10:56 DAMAGE-DUE TO FAILURE guanfacine Allergy Unknown Unknown Verified 06/06/19 10:56 nifedipine Allergy Unknown Unknown Verified 06/06/19 10:56 Home Medications Home Medications Medication Instructions Recorded Confirmed Type clopidogrel 75 mg PO QAM 07/18/18 07/31/19 History pantoprazole 40 mg PO QAM 07/18/18 07/31/19 History ranitidine HCl 300 mg PO HS 07/18/18 07/31/19 History zolpidem 10 mg PO HS 07/18/18 07/31/19 History amlodipine 10 mg tablet 10 mg PO DAILY 12/20/18 07/31/19 History rivaroxaban 20 mg tablet 20 mg PO QPM 12/20/18 07/31/19 History calcium carbonate 200 mg calcium 200 mg PO DAILY PRN tab 05/17/19 07/31/19 History (500 mg) chewable tablet metoprolol tartrate 25 mg tablet 37.5 mg PO BID tab 05/17/19 07/31/19 History ondansetron HCl 4 mg tablet 8 mg PO DAILY PRN tab 05/17/19 07/31/19 History atorvastatin 80 mg tablet 80 mg PO DAILY tab 06/06/19 07/31/19 History pregabalin 150 mg capsule 150 mg PO BID 06/06/19 07/31/19 History twrziq-[id number]-waiuglz [Creon] 1 cap PO TID 07/31/19 07/31/19 History meclizine 25 mg PO TID PRN 07/31/19 07/31/19 History Patient History Medical History Chronic alcoholism (Chronic) PVD (peripheral vascular disease) (Chronic) HTN (hypertension) (Chronic) Anxiety (Chronic) Depression (Chronic) Dyslipidemia (Chronic) Paroxysmal atrial fibrillation (Chronic) Acute pancreatitis (Acute) GERD (gastroesophageal reflux disease) Surgical History History of appendectomy (Resolved) H/O vascular surgery (Resolved) "bilateral femoral endarterectomy with iliac stent 10/02/2016 Dr. Dharmesh Omalley, [facility]" Status post ORIF of fracture of ankle (Resolved) "12/18/16- ORIF closed displaced trimalleolar left ankle fracture; Dr. 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 Beliefs That Will Affect Care: None marital status: Current Living Situation: Spouse current occupation: Retired Other Information That Helps Us Care for You: No Feels Safe at Home: Yes Safety Concerns: Feels Safe At This Time Smoking Status: Former smoker Tobacco Type: cigarettes ; Cigarettes Per Day: 1/2 pack ; Second Hand Exposure: No ; Hx Alcohol Use: Yes Alcohol type: beer Hx Substance Use: Yes substance use type: marijuana Substance Use Type Other:: Patient uses medical marijuana Last Used Substance: Days (ago) Results & Data Vital Signs (Past 12 Hours) Vital Signs Temp Pulse Pulse Resp BP BP Pulse Ox 08/01/19 07:55 36.7 C 68 17 129/79 95 08/01/19 07:45 36.7 C 68 17 129/79 95 08/01/19 04:00 36.8 C 69 20 109/54 L 95 08/01/19 00:15 68 08/01/19 00:00 36.7 C 78 18 107/54 L 95 she is awake alert and oriented x3 she looks older than her stated age. Lungs: Globally decreased breath sounds no rales rhonchi or wheezing Heart: Regular rate and rhythm Abdomen: Soft nontender nondistended positive bowel sounds Extremities: No clubbing or cyanosis, left BKA Impression: 1. Paroxysmal atrial fibrillation 2. Sinus node dysfunction and AV block 3. Presyncopal and syncopal episode secondary to #2 4. Chronic anticoagulation secondary to #1; questionable need for Plavix versus just 81 mg of aspirin for her peripheral arterial disease Formal consultation was placed to Dr. Merchant of electrophysiology. He is in agreement that the patient has sinus node dysfunction and some degree of AV block. She will undergo pacemaker implantation at noon today. She will need a post procedure incision check and then we will arrange for her to be followed in pacer clinic in the office at [facility]. The risks and benefits of the procedure were discussed in detail. She understands the risks. Once her pacemaker is placed we discussed limitations afterwards. Specifically not elevating her left arm above 90 degrees for the next 30 days. She will be able to walk with her walker. Now that we have a reason for her presyncopal and syncopal events she will be able to driving after pacemaker implantation. She can resume her anticoagulation when acceptable from the EP service. We discussed long-term home monitoring of her device. As well as restrictions that she can expect after the surgery.
[2019-08-01 09:14] LABS: BUN Creatinine Ratio 8.7 (10-20); Creatinine Clr Calc Pharmacy 69.2 ml/min; Est GFR (African American) 88.2; Est GFR (Non-African American) 76.1
[2019-08-01] MEDS ORDERED: VANCOMYCIN HCL 1,000 MG/270 ML BAG IV ONE (12:00)
[2019-08-01] MEDS ORDERED: BACITRACIN INJ 50,000 UNIT VIAL ONE (12:08)
[2019-08-01] MEDS ORDERED: LIDOCAINE HCL 1% 20 ML VIAL ONE (12:08)
[2019-08-01] MEDS ORDERED: BUPIVACAINE 0.25% 30 ML VIAL ONE (12:08)
[2019-08-01] MEDS ORDERED: MIDAZOLAM HCL 5 MG/ML 1 ML VIAL ONE (12:29)
[2019-08-01] MEDS ORDERED: fentaNYL citrate 100 MCG/2 ML VIAL ONE (12:29)
--- NOTE | 2019-08-01 12:29 | Pre Anesthesia Assessment ---
Date of Service August 01, 2019 Pre Sedation Assessment Vital Signs Temp Pulse Pulse Resp BP BP Pulse Ox 08/01/19 11:32 37.0 C 80 19 129/83 96 08/01/19 07:55 36.7 C 68 17 129/79 95 08/01/19 07:45 36.7 C 68 17 129/79 95 08/01/19 04:00 36.8 C 69 20 109/54 L 95 08/01/19 00:15 68 08/01/19 00:00 36.7 C 78 18 107/54 L 95 07/31/19 19:25 36.7 C 66 20 113/72 97 07/31/19 16:00 72 07/31/19 14:59 37.2 C 77 20 138/85 96 Cardiovascular + regular rate Respiratory + respiratory effort normal Pre-Sedation Airway Assessment Smoking Status: Former smoker Hx Sleep Apnea: No Hx Difficult Intubation: No Short, Thick Neck: No Thyromental Distance: > or= 3.5 Finger Breadths Oral Cavity: + Dentures Mallampati Class: II ASA: ASA3 NPO Status Date of Last Intake of Fluids: 08/01/19 Time of Last Intake of Fluids: 08:00 Date of Last Intake of Solid Food: 07/31/19 Time of Last Intake of Solid Foods: 18:00 Procedure Planning Contraindications for Sedation: none Current Medications Reviewed: Yes Notes The planned sedation has been discussed with the patient. Informed Consent was obtained. I have identified the patient, determined the appropriateness of sedation and have assessed the patient immediately prior to the procedure. All medicine(s) and interventions are by my order.
--- NOTE | 2019-08-01 13:31 | Procedure Note ---
Procedure Note Date of Service August 01, 2019 Note Procedure performed: Implantation of dual-chamber permanent pacemaker Staff public address system installer: Aidan Merchant MD Indication: The patient is a 59-year-old woman with a history of syncope associated with sinus arrest on outpatient monitoring. Subcu good candidate for a permanent pacemaker due to symptomatic nonreversible sinus node dysfunction. A dual-chamber device was selected this patient is currently in sinus rhythm and wished to maintain AV synchrony. Procedure in detail: The patient was informed of the risks benefits and alternatives to the intended procedure and she wished to proceed. She was taken to the electrophysiology suite in a fasting state. A preoperative antibiotic had been administered. The patient was monitored electrocardiographically throughout today's procedure and conscious sedation was administered per protocol. The left upper pectoral area is prepped and draped in usual sterile fashion. This area was anesthetized using subcutaneous administration of a xylocaine solution. An incision was made at this site and carried down to the prepectoralis fascia using sharp dissection. Electrocautery was also employed for dissection as well as for hemostasis. A device pocket was fashioned tissues above the pectoralis muscle. Subsequent to this maneuver the left axillary vein was accessed using modified Seldinger technique. Sheaths were placed over guidewires at this site and used to facilit ate passage of the pacing leads to the respective chambers under fluoroscopic guidance. This included right atrial and right ventricular leads. Adequate sensing and threshold parameters were obtained prior to Active fixation of the leads to the endocardial surface. The proximal portion leads were then sutured the prepectoral fascia using nonabsorbable suture. The device pocket was irrigated with antibiotic solution. The leads were then attached to the device. The device and leads were then placed in the pocket and pocket was closed in 3 layers of absorbable suture. Steri-Strips and sterile dressing were applied. The device was tested noninvasively prior to conclusion the procedure. The patient tolerated procedure well there no immediate complications. Equipment used: New pulse generator: [employer] Med[employer] Glint. Model number: [id number] serial number [id number] Right atrial lead: [employer] Medtronic. Model number: [id number] serial number [id number] Right ventricular lead: [employer] Medtronic. Model number: [id number] serial number [id number] Measured data: Right atrial lead: P waves measure 1.6 mV. Pacing threshold 1 V 0.4 ms with a pacing impedance of 570 ohms Right ventricular lead: R waves measured 7.4 mV. Pacing thresholds 0.5 V at 0.4 ms with a pacing impedance of 589 ohms Impression: Successful implantation of dual-chamber permanent pacemaker Coding
--- NOTE | 2019-08-01 13:34 | Post Anesthesia Assessment ---
Date of Service August 01, 2019 Post Sedation Assessment Vital Signs Temp Pulse Pulse Resp BP BP Pulse Ox 08/01/19 11:32 37.0 C 80 19 129/83 96 08/01/19 07:55 36.7 C 68 17 129/79 95 08/01/19 07:45 36.7 C 68 17 129/79 95 08/01/19 04:00 36.8 C 69 20 109/54 L 95 08/01/19 00:15 68 08/01/19 00:00 36.7 C 78 18 107/54 L 95 07/31/19 19:25 36.7 C 66 20 113/72 97 07/31/19 16:00 72 07/31/19 14:59 37.2 C 77 20 138/85 96 Recovery Score Activity: Moves 4 extremities Respiration: Deep Breath/Cough Circulation: +/-20% PreAnes Value Consciousness: Fully Awake Oxygen Saturation: > 92% On Room Air Discharge Sedation Level of Care: Phase I Post Sedation Plan On clinical assessment, the patient appears to have tolerated the sedation without complications. Patient is recovering as anticipated. Patient will continue to be monitored by nursing and may be discharged when sedation discharge criteria are met per below protocol. Upon Completions of procedure and additional 15 minutes continue every 5 minute vital signs and the P.A.R. score; then discharge to a Phase I or Fast Track to Phase II per the following guidelines: * Discharge Patient to appropriate Phase II area if PAR is 8 or greater or return to pre- procedure baseline. The post - procedure orders will be as directed. * If PAR score is less than 8 or not return to pre-procedure baseline then patient will follow Phase I monitoring till PAR is reached for Phase II. The Phase I may be done in procedure room or may call to secure a Phase I area. * If naloxone or flumazenil are used for reversal, hold in Phase I for continued monitoring from when last reversal dose was given for a minimum of 60 minutes or longer pending the nurse and/or physician discretion of patient condition before discharge to Phase II. Please call the Sedation Physician to re-evaluate and complete post-note for discharge to Phase II area. Do NOT discharge from procedure sedation or Phase 1 until post- sedation evaluation note is complete by procedure /sedation MD Sedation Discharge Instructions to be given to the patient at discharge to home.
[2019-08-01] MEDS: OXYCODONE HCL IR 5 MG TAB (IMMEDIATE RELEASE) PO PRN ×4 (14:19→23:16)
[2019-08-01] MEDS: METOPROLOL TARTRATE 25 MG TAB PO SCH ×2 (15:25→20:50)
--- NOTE | 2019-08-01 18:36 | Hospitalist Progress Note ---
Date of Service August 01, 2019 Assessment & Plan (1) Sinus node dysfunction: (1) Sinus node dysfunction: Sent to hospital after finding sinus arrest found on Holter monitor as outpt with episodes of syncope. Results with atrial and ventricular bigeminy, atrial fibrillation and flutter as well as sinus bradycardia with pauses, (6 sec, 7.7 sec) -now s/p PPM 11/5 had rapid afib afterwards for a few hours, now spontaneously converted to NSR -continue postoperative prophylactic antibiotics -Check chest x-ray in the morning -If pacer functioning well, can be discharged home tomorrow -Limitations to left upper extremity -Hold Metoprolol and Norvasc for now Appreciate cardiology consultation Patient with skin sensitivity, allergy to adhesive. She has some small closed blisters on right chest wall from adhesive with severe itching. -Benadryl as needed-change to p.o. -Lotion/skin care at patient's request -Cautious use of adhesive agents (2) GERD (gastroesophageal reflux disease): Chronic. Stable -Continue Protonix -Continue TUMS PRN (3) Hyponatremia: Chronic, was 130 on admission now improved to 133 Thought to be secondary to low solute intake, potomania-has been encouraged to not drink alcohol (4) Chronic pancreatitis: Stable at present -Continue Creon with meals and snacks (5) Chronic alcoholism: Improved. Patient is cutting back on drinking -Watch for signs of EtOH withdrawal (6) Paroxysmal atrial fibrillation: Rate controlled -Hold anticoagulation and restart when okay with cardiology given pacemaker placement -Restarted metoprolol (7) Dyslipidemia: Chronic. -Continue Atorvastatin (8) HTN (hypertension): Blood pressure well controlled -Continue to hold Amlodipine and started metoprolol as above -Continue to monitor (9) PVD (peripheral vascular disease): Chronic. 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 Patient manages with medical marijuana and Lyrica -continue Lyrica -Tramadol 50mg po q 6 hours PRN Ppx - Holding Eliquis for recent procedure, continue Protonix Code - Full per discussion with patient Dispo -remain on PCU and likely discharged home tomorrow PT/OT consultations ordered given that she has limited use of left upper extremity and has left BKA with recent acquisition of prosthesis (2) Stump neuralgia: (3) Insomnia: (4) GERD (gastroesophageal reflux disease): (5) Hyponatremia: (6) Chronic alcoholism: (7) PVD (peripheral vascular disease): (8) HTN (hypertension): (9) Dyslipidemia: (10) Paroxysmal atrial fibrillation: Subjective Patient feeling well except some soreness at the pacemaker insertion site. She had atrial fibrillation for couple of hours afterwards and spontaneously converted to normal sinus rhythm with rates in the 90s. Denies shortness of breath or abdominal pain, no nausea. She is tolerating p.o. She is still having some itching and redness around her adhesive tape on the anterior chest wall. Reports that the Benadryl is wearing off sooner than every 6 hours when she is allowed to have it. Review of Systems Review of Systems: All systems reviewed & are unremarkable except as noted in HPI & below Physical Exam Constitutional: WD/WN, vitals as above Eyes: + anicteric sclerae ENMT: external ear and nose normal, oropharynx normal Neck: trachea midline, no thyromegaly Respiratory: normal respiratory effort, lungs clear to auscultation Cardiovascular: RRR, no murmur, no edema Chest (Breasts): Chest: + pacemaker Gastrointestinal (Abdomen): normal bowel sounds, soft, nontender, no hepatosplenomegaly Musculoskeletal: Extremities: extremities normal to inspection; no cyanosis and no clubbing Skin: + rash (mild erythema right chest wall) and + wound (dressing in place over left chest wall c/d/i) Neurologic: moves all extremities and awake; no focal motor deficits Psychiatric: A+Ox3, euthymic affect Results & Data Vital Signs (Past 12 Hours) Vital Signs Temp Pulse Resp BP Pulse Ox 08/01/19 17:16 36.6 C 94 H 18 126/76 98 08/01/19 16:46 36.6 C 99 H 18 128/82 99 08/01/19 16:16 36.6 C 92 H 18 130/80 98 08/01/19 15:46 36.6 C 99 H 18 132/82 98 08/01/19 15:16 36.6 C 100 H 18 126/80 96 08/01/19 14:50 94 H 18 108/76 95 08/01/19 14:11 36.6 C 79 18 133/74 99 08/01/19 13:45 94 H 20 129/78 97 08/01/19 13:40 94 H 20 129/78 92 08/01/19 13:35 113 H 20 145/86 H 92 08/01/19 11:32 37.0 C 80 19 129/83 96 08/01/19 07:55 36.7 C 68 17 129/79 95 08/01/19 07:45 36.7 C 68 17 129/79 95 Laboratory Results 08/01/19 08/01/19 Range/Units 08:33 08:33 WBC 5.87 (4.8-10.8) K/uL RBC 4.27 (4.2-5.4) M/uL Hgb 12.1 (12.0-16.0) g/dL Hct 36.2 L (37-47) % MCV 84.8 (80-100) fL MCH 28.3 (25-34) pg MCHC 33.4 (32-36) g/dL RDW Std Deviation 53.8 H (36.4-46.3) fL RDW Coeff of Marlon 17.5 H (11.5-14.5) % Plt Count 203 (130-400) K/uL MPV 11.1 H (7.4-10.4) fL Immature Gran % (Auto) 0.3 % Neut % (Auto) 59.8 % Lymph % (Auto) 27.3 % [place] % (Auto) 9.2 % Eos % (Auto) 2.7 % Baso % (Auto) 0.7 % Immature Gran # (Auto) 0.02 (0.00-0.02) K/uL Neut # (Auto) 3.51 (1.4-6.5) K/uL Lymph # (Auto) 1.60 (1.2-3.4) K/uL [place] # (Auto) 0.54 (0.11-0.59) K/uL Eos # (Auto) 0.16 (0-0.5) K/uL Baso # (Auto) 0.04 (0-0.2) K/uL Sodium 133 L (136-145) mmol/L Potassium 4.0 (3.5-5.1) mmol/L Chloride 102 (98-107) mmol/L Carbon Dioxide 24 (21-32) mmol/L Anion Gap 7.0 (3-11) BUN 7 (7-18) mg/dl Creatinine 0.84 (0.6-1.2) mg/dl Est Cr Clr Drug Dosing 69.2 ml/min Est GFR ( Amer) 88.2 Est GFR (Non-Af Amer) 76.1 BUN/Creatinine Ratio 8.7 L (10-20) Glucose 94 (70-99) mg/dl Calcium 9.0 (8.5-10.1) mg/dl PG Care Time/CCT Total # of Minutes Spent Total Time Spent with Patient: Total time spent is greater than 50% in coordination of care (as documented) at patient's floor/unit and/or counseling patient: (1) Insomnia Insomnia type: unspecified Qualified Code(s): G47.00 - Insomnia, unspecified (2) GERD (gastroesophageal reflux disease) Esophagitis presence: esophagitis presence not specified Qualified Code(s): K21.9 - Gastro-esophageal reflux disease without esophagitis (3) HTN (hypertension) Hypertension type: essential hypertension Qualified Code(s): I10 - Essential (primary) hypertension
[2019-08-01] MEDS: ZOLPIDEM TARTRATE 10 MG TAB PO SCH (20:50)
[2019-08-01] MEDS: VANCOMYCIN HCL 1,000 MG in SODIUM CHLORIDE 0.9% 250 ML IV SCH (23:18)
[2019-08-02] MEDS: MoRPHine SULFATE 2 MG/ML CARP IV PRN ×3 (01:28→10:47)
[2019-08-02] MEDS: OXYCODONE HCL IR 5 MG TAB (IMMEDIATE RELEASE) PO PRN ×3 (04:34→13:22)
[2019-08-02 06:02] LABS: Basophils # (auto) 0.03 K/uL (0-0.2); Basophils % (auto) 0.3 %; Eosinophils # (auto) 0.27 K/uL (0-0.5); Eosinophils % (auto) 3.1 %; Hematocrit (blood only) 35.1 % (37-47); Hemoglobin 11.5 g/dL (12.0-16.0); Immature Granulocytes # (auto) 0.02 K/uL (0.00-0.02); Immature Granulocytes % (auto) 0.2 %; Lymphocytes # (auto) 2.13 K/uL (1.2-3.4); Lymphocytes % (auto) 24.6 %; Mean Corpuscular Hemoglobin 28.5 pg (25-34); Mean Corpuscular Hgb Conc 32.8 g/dL (32-36); Mean Corpuscular Volume 86.9 fL (80-100); Monocytes # (auto) 0.86 K/uL (0.11-0.59); Monocytes % (auto) 9.9 %; Neutrophils # (auto) 5.34 K/uL (1.4-6.5); Neutrophils % (auto) 61.9 %; Platelet Count 171 K/uL (130-400); RDW Coefficient of Variation 17.7 % (11.5-14.5); RDW Standard Deviation 56.6 fL (36.4-46.3); Red Blood Count 4.04 M/uL (4.2-5.4); White Blood Count 8.65 K/uL (4.8-10.8)
[2019-08-02 06:32] LABS: BUN Creatinine Ratio 11.4 (10-20); Calcium 8.8 mg/dl (8.5-10.1); Creatinine Clr Calc Pharmacy 70.6 ml/min; Est GFR (African American) 88.2; Est GFR (Non-African American) 76.1; Magnesium 2.1 mg/dl (1.8-2.4); Potassium 4.3 mmol/L (3.5-5.1)
--- NOTE | 2019-08-02 06:36 | XRay Report ---
XR chest 2V PA/lateral CLINICAL HISTORY: Chest x-ray status post pacemaker placement COMPARISON STUDY: 02/10/2019 FINDINGS: The cardiac and mediastinal contours remain stable. There is a postinflammatory density wit hin the right mid lung zone. There is an area of peripheral atelectasis within the right lower lung z one. There is no pneumothorax status post placement of a left subclavian dual-chamber central venous pacemaker. Electrode position is unremarkable. There is no failure. There is no lobar consolidation. There are no pleural effusions.[ IMPRESSION: No evidence of pneumothorax status post placement of a left subclavian dual-chamber centr al venous pacemaker Electronically signed by: Greg Moreira M.D. 08/02/2019 6:34 AM
[2019-08-02] MEDS: PREGABALIN 150 MG CAP PO SCH (08:24)
[2019-08-02] MEDS: PANTOprazole 40 MG TAB PO SCH (08:24)
[2019-08-02] MEDS: METOPROLOL TARTRATE 25 MG TAB PO SCH (08:27)
[2019-08-02] MEDS: LIPASE/PROTEASE/AMYLASE PO SCH ×2 (08:39→11:37)
--- NOTE | 2019-08-02 09:14 | Cardiology Progress Note ---
Date of Service August 02, 2019 Assessment & Plan (1) Sinus node dysfunction: Patient underwent implantation of dual-chamber permanent pacemaker yesterday without complication. I instructed her to keep the wound dry in the Steri-Strips intact until she can arrange follow up with [facility] next week. She should refrain from lifting left arm above the shoulder behind the neck for 6 weeks. She can remove the outer dressing tomorrow. Subjective This morning patient claims to be feeling well. She does have some discomfort at the implant site but this is improved from yesterday. Physical Exam Physical Exam: There is no drainage from the incision. No significant erythema or hematoma. Results & Data Vital Signs (Past 12 Hours) Vital Signs Temp Pulse Resp BP Pulse Ox 08/02/19 06:45 36.7 C 68 18 92/59 L 96 08/02/19 02:58 36.6 C 60 20 115/73 97 08/01/19 23:18 36.6 C 61 18 108/67 96 Diagnostic Findings Chest x-ray obtained today did not reveal any evidence of pneumothorax. Lead position is good. I performed a complete device interrogation which revealed good sensing and threshold parameters on both the atrial and ventricular leads. Normal device function.
[2019-08-02] MEDS: PANCREAZE (LIPASE 4,200U) CAP PO SCH (10:36)
--- NOTE | 2019-08-02 10:46 | Discharge Summary ---
Date of Service August 02, 2019 Admission HPI Per Admitting Provider Anisha Garcia is a 59yo C female with history of HTN/HLP/PVD/GERD presenting from the outpatient Cardiology clinic for pacemaker placement. She reports having "black outs" for the last couple of months. They occur at random, no associated CP/palpitations/seizure activity/numbness/weakness. Black out typically occurs without warning, very rarely she experiences a prodrome of dizziness/lightheadedness. She was seen by Cardiology and has been wearing a continuous potline monitor which captured multiple events, most notably atrial bigeminy, ventricular bigeminy, atrial fibrillation and flutter as well as sinus bradycardia with pauses up to 7.7 seconds. She was sent by Cardiology today for direct admission, plan for pacemaker placement. Her witnessed a recent event - reports that she is out for 4-5 seconds then returns to normal. No associated seizure activity/incontinence. Patient with no acute complaints at present. Has some stump discomfort at her amputation site. Also with itchy rash on her right chest wall from adhesive tape Principal Diagnosis Sinus node dysfunction Discharge Exam Constitutional WD/WN, vitals as above Eyes + anicteric sclerae Neck trachea midline, no thyromegaly Respiratory normal respiratory effort, lungs clear to auscultation Cardiovascular RRR, no murmur, no edema Chest (Breasts) Chest: + pacemaker Gastrointestinal (Abdomen) normal bowel sounds, soft, nontender, no hepatosplenomegaly Musculoskeletal Extremities: extremities normal to inspection; no cyanosis and no clubbing Skin no rashes, warm and dry + rash (mild erythema right chest wall) and + wound (dressing in place over left chest wall c/d/i) Neurologic moves all extremities and awake; no focal motor deficits Psychiatric A+Ox3, euthymic affect Discharge Data Allergies Allergy/AdvReac Type Severity Reaction Status Date / Time amoxicillin Allergy Severe LIVER Verified 06/06/19 10:56 FAILURE clavulanic acid Allergy Severe LIVER Verified 06/06/19 10:56 FAILURE adhesive Allergy Mild Unknown Verified 06/06/19 10:56 acetaminophen Allergy Unknown LIVER Verified 06/06/19 10:56 DAMAGE-DUE TO FAILURE guanfacine Allergy Unknown Unknown Verified 06/06/19 10:56 nifedipine Allergy Unknown Unknown Verified 06/06/19 10:56 Consultations 07/31/19 12:39 Consult Cardiology Routine 07/31/19 12:41 Consult Case Management - Discharge Planning Routine Procedures Performed Operation Date: 08/01/19 12:00 Actual Procedures p Pacer with A/V Leads (Dual) - Abdi Merchant MD Ordered Studies 08/01/19 12:16 CL Cath Imgs for PACS use only Routine CXR Hospital Course (1) Sinus node dysfunction: (1) Sinus node dysfunction: Sent to hospital after finding sinus arrest found on Holter monitor as outpt with episodes of syncope. Results with atrial and ventricular bigeminy, atrial fibrillation and flutter as well as sinus bradycardia with pauses, (6 sec, 7.7 sec) -now s/p PPM 11/5 and doing well, CXR no PTX and functioning properly -had rapid afib afterwards for a few hours, then spontaneously converted to NSR -received postoperative prophylactic antibiotics -Limitations to left upper extremity x 6 weeks no reaching above level of shoulder -reduced Metoprolol dose to 25mg po bid for hypotension and discontinue Norvasc due to low BPs Appreciate cardiology consultation-f/u within [address] Luong of [facility] -gave Rx for oxycodone prn pain from procedure Patient with skin sensitivity, allergy to adhesive. She has some small closed blisters on right chest wall from adhesive with severe itching. -Benadryl as needed -Lotion/skin care at patient's request -Cautious use of adhesive agents (2) GERD (gastroesophageal reflux disease): Chronic. Stable -Continue Protonix -Continue TUMS PRN (3) Hyponatremia: Chronic, was 130 on admission now improved to 135 Thought to be secondary to low solute intake, potomania-has been encouraged to not drink alcohol (4) Chronic pancreatitis: Stable at present -Continue Creon with meals and snacks (5) Chronic alcoholism: Improved. Patient is cutting back on drinking -Watch for signs of EtOH withdrawal-none (6) Paroxysmal atrial fibrillation: had an episode post-procedure x 2 hours in 120s and converted spontaneously -continue anticoagulation with Xarelto after discharge -continue metoprolol 25 bid (7) Dyslipidemia: Chronic. -Continue Atorvastatin (8) HTN (hypertension): Blood pressure well controlled to low normal -dcd Amlodipine and lowered metoprolol as above -Continue to monitor as outpt (9) PVD (peripheral vascular disease): Chronic. 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 Patient manages with medical marijuana and Lyrica -continue Lyrica Dispo -stable for dc to home with home health (2) Stump neuralgia: (3) Insomnia: (4) GERD (gastroesophageal reflux disease): (5) Hyponatremia: (6) Chronic alcoholism: (7) PVD (peripheral vascular disease): (8) HTN (hypertension): (9) Dyslipidemia: (10) Paroxysmal atrial fibrillation: Total Time Total Time Spent Total Time Spent (In Minutes): >30 min Total Time Includes: Examination of the Patient, Discharge Planning, Medication Reconciliation and Communication With Other Providers (Cardiology) Discharge Plan Discharge Items Patient Disposition: Home - Home Health Services Reason For Visit: SINUS NODE DYSFUNCTION Discharge Diagnosis: Sinus node dysfunction, Permanent pacemaker placement Condition on Discharge: Good Activity: As commented below Lifting Comment: No lifting with left arm above level of shoulder for 6 weeks Bathing: Keep incision dry and May shower/bathe in 3 days Bathing Comment: keep the wound dry Non-emergency contact: Primary Care Provider and Farm Implement Mechanic Call non-emergency contact if: you have any medication questions, your symptoms worsen, your pain is not controlled, your pain is worsening, your pain is unusual for you, your pain is concerning for you, you have a fever, your temperature is above 101, your wound has increased redness, your wound has increased drainage and your wound pain has increased Follow-up/Referrals: Janie Back PA-C [Primary Care Provider] - Diet: Heart Healthy Addtl Attending Provider Instructions: Please keep the wound dry and the Steri-Strips intact until she can arrange follow up with [facility] next week. Please refrain from lifting left arm above the shoulder behind the neck for 6 weeks. You can remove the outer dressing tomorrow. Your blood pressure was low and your amlodipine was STOPPED. Your metoprolol dose was lowered to 25mg twice daily. Pending Studies at Discharge: No Stand-Alone Forms: My [employer], Smoking Cessation Medications and DC Order Prescriptions: New oxycodone 5 mg Tablet 5 mg PO Q4 PRN (Reason: pain) Qty: 14 RF: 0 Continued Xarelto 20 mg tablet 20 mg PO QPM RF: 0 atorvastatin 80 mg tablet 80 mg PO DAILY RF: 0 pregabalin [Lyrica] 150 mg capsule 150 mg PO BID RF: 0 ranitidine HCl 300 mg tablet 300 mg PO HS RF: 0 clopidogrel 75 mg tablet 75 mg PO QAM RF: 0 pantoprazole 40 mg tablet,delayed release (DR/EC) 40 mg PO QAM RF: 0 zolpidem 10 mg tablet 10 mg PO HS RF: 0 calcium carbonate [Tums] 200 mg calcium (500 mg) tablet,chewable 200 mg PO DAILY PRN (Reason: Indigestion) RF: 0 ondansetron HCl 4 mg tablet 8 mg PO DAILY PRN (Reason: Nausea) RF: 0 Creon 3,000-9,500- 15,000 unit capsule,delayed release(DR/EC) 1 cap PO TID RF: 0 meclizine 25 mg PO TID PRN (Reason: Dizziness) RF: 0 Changed metoprolol tartrate 25 mg tablet 25 mg PO BID Qty: 0 RF: 0 Discontinued amlodipine 10 mg tablet 10 mg PO DAILY RF: 0 Discharge Orders: Discharge Order (Routine); Ordered 08/02/19 Ordered By: Ирина Hughes Admission Data Admit Date/Time: 07/31/19 11:06 Attending Provider: Ирина Hughes Admit Provider: Bisi Cano Primary Care Provider: Janie Back Other Providers: [facility],Home Healthcare ; Brandon Zarate
[2019-08-02] MEDS: VANCOMYCIN HCL 1,000 MG in SODIUM CHLORIDE 0.9% 250 ML IV SCH (11:41)
== END 2019-08-02 14:00 | disposition home health service (06) | DRG 243 ==
LOC: 2N 11:06 → SUATTDRO 11:06 → 2S 08-01 14:03

== ENCOUNTER 2019-12-20 06:24 | Inpatient (IN) ==
--- NOTE | 2019-12-19 14:36 | History & Physical Report ---
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 I have discussed the risks options and benefits of the procedure with the patient. The patient understands the risks options and benefits and agrees to the procedure. History of Present Illness Chief Complaint: Right leg pain Primary Care Provider: Janie Back PA-C Ms. Garcia is a 59 yo female who has a left leg amputation from the past. She has had discomfort in her right leg which is gotten worse. She does have numbness and tingling at times worse when she elevates it. She also has dependent rubor according to her. She is an amputee of the left lower extremity. Allergies Allergy/AdvReac Type Severity Reaction Status Date / Time amoxicillin Allergy Severe LIVER Verified 10/09/19 11:15 FAILURE clavulanic acid Allergy Severe LIVER Verified 10/09/19 11:15 FAILURE adhesive Allergy Mild Unknown Verified 10/09/19 11:15 acetaminophen Allergy Unknown LIVER Verified 10/09/19 11:15 DAMAGE-DUE TO FAILURE guanfacine Allergy Unknown Unknown Verified 10/09/19 11:15 nifedipine Allergy Unknown Unknown Verified 10/09/19 11:15 Home Medications Home Medications Medication Instructions Recorded Confirmed Type pantoprazole 40 mg PO QAM 07/18/18 10/09/19 History zolpidem 10 mg PO HS 07/18/18 10/09/19 History rivaroxaban 20 mg tablet 20 mg PO QPM 12/20/18 10/09/19 History calcium carbonate 200 mg calcium 200 mg PO DAILY PRN tab 05/17/19 10/09/19 History (500 mg) chewable tablet ondansetron HCl 4 mg tablet 8 mg PO DAILY PRN tab 05/17/19 10/09/19 History atorvastatin 80 mg tablet 80 mg PO DAILY tab 06/06/19 10/09/19 History pregabalin 150 mg capsule 150 mg PO BID 06/06/19 10/09/19 History Creon 1 cap PO TID 07/31/19 10/09/19 History metoprolol tartrate 25 mg PO BID #0 tab 08/02/19 10/09/19 Rx triamcinolone acetonide 0.1 % 1 appln TOP DAILY 10/09/19 10/09/19 History topical cream aspirin 81 mg PO DAILY 12/14/19 12/14/19 History Past Med/Surg History Medical History Anxiety (Chronic) Chronic alcoholism (Chronic) Depression (Chronic) Dyslipidemia (Chronic) GERD (gastroesophageal reflux disease) HTN (hypertension) (Chronic) Paroxysmal atrial fibrillation (Chronic) PVD (peripheral vascular disease) (Chronic) Surgical History H/O vascular surgery (Resolved) "bilateral femoral endarterectomy with iliac stent 10/02/2016 Dr. Dharmesh Omalley, [facility]" History of appendectomy (Resolved) Status post below knee amputation of left lower extremity (Chronic) Status post ORIF of fracture of ankle (Resolved) "12/18/16- ORIF closed displaced trimalleolar left ankle fracture; Dr. Fischer" Family History Unknown No problems noted. Social History Preferred Language: [place] Communication Ability: Effective Laboratory Chemical Assistant Required: No Beliefs That Will Affect Care: None marital status: Current Living Situation: Spouse current occupation: Retired Other Information That Helps Us Care for You: No Feels Safe at Home: No Is there a partner from a previous relationship who is making you feel unsafe now?: No Any Concerns about Your Family Situation: No Would You Like to Speak to Someone About Your Situation: No Safety Concerns: Feels Safe At This Time Smoking Status: Light tobacco smoker Tobacco Type: cigarettes ; Cigarettes Per Day: 0.5 packs per day. ; Do You Dip or Chew Tobacco: No ; Second Hand Exposure: No ; Tobacco Cessation Education Requested by Patient: Yes (Patient is open to information.) Hx Alcohol Use: Yes Alcohol type: beer Hx Substance Use: Yes substance use type: marijuana Substance Use Type Other:: Patient has medical marijuana card. Last Used Substance: Days (ago) Review of Systems All systems reviewed & are unremarkable except as noted in HPI & below Physical Exam Constitutional: well developed and well nourished; no acute distress Respiratory: normal respiratory effort, lungs clear to auscultation Cardiovascular: RRR, no murmur, no edema Vessels: femoral pulses present (normal on right, barely palpable on left); + posterior tibial pulses abnormal and + dorsalis pedis pulses abnormal Gastrointestinal (Abdomen): normal bowel sounds, soft, nontender, no hepatosplenomegaly Neurologic: normal sensation to monofilament, moves all extremities and awake Psychiatric: Orientation: alert and oriented x 3 Signed By: <Electronically signed by Payam Maya MD> 12/15/19 0708 Created: 12/15/19 0704 The status of this report is Signed. Draft = Not yet reviewed or approved by Medical Physician. Signed = Reviewed and approved by Medical Physician. Allergies Allergy/AdvReac Type Severity Reaction Status Date / Time amoxicillin Allergy Severe LIVER Verified 12/15/19 07:30 FAILURE clavulanic acid Allergy Severe LIVER Verified 12/15/19 07:30 FAILURE adhesive Allergy Mild Unknown Verified 12/15/19 07:30 acetaminophen Allergy Unknown LIVER Verified 12/15/19 07:30 DAMAGE-DUE TO FAILURE guanfacine Allergy Unknown Unknown Verified 12/15/19 07:30 nifedipine Allergy Unknown Unknown Verified 12/15/19 07:30 Home Medications Home Medications Medication Instructions Recorded Confirmed Type pantoprazole 40 mg PO QAM 07/18/18 12/15/19 History zolpidem 10 mg PO HS 07/18/18 12/15/19 History rivaroxaban 20 mg tablet 20 mg PO QPM 12/20/18 12/15/19 History calcium carbonate 200 mg calcium 200 mg PO DAILY PRN tab 05/17/19 12/15/19 History (500 mg) chewable tablet ondansetron HCl 4 mg tablet 8 mg PO DAILY PRN tab 05/17/19 12/15/19 History atorvastatin 80 mg tablet 80 mg PO DAILY tab 06/06/19 12/15/19 History pregabalin 150 mg capsule 150 mg PO BID 06/06/19 12/15/19 History Creon 1 cap PO TID 07/31/19 12/15/19 History metoprolol tartrate 25 mg PO BID #0 tab 08/02/19 12/15/19 Rx triamcinolone acetonide 0.1 % 1 appln TOP DAILY 10/09/19 12/15/19 History topical cream aspirin 81 mg PO DAILY 12/14/19 12/15/19 History cilostazol 100 mg PO BID 12/15/19 12/15/19 History Past Med/Surg History Social History Preferred Language: [place] Communication Ability: Effective Laboratory Chemical Assistant Required: No Beliefs That Will Affect Care: None marital status: Current Living Situation: Spouse current occupation: Retired Feels Safe at Home: No Is there a partner from a previous relationship who is making you feel unsafe now?: No Smoking Status: Light tobacco smoker Tobacco Type: cigarettes ; Cigarettes Per Day: 0.5 packs per day. ; Second Hand Exposure: No ; Hx Alcohol Use: Yes Alcohol type: beer Hx Substance Use: Yes substance use type: marijuana Substance Use Type Other:: Patient has medical marijuana card. Last Used Substance: Days (ago)
--- NOTE | 2019-12-19 15:51 | Anesthesiology Consultation ---
Date of Service December 19, 2019 Assessment & Plan (1) Encounter for pre-operative examination: Chart Review Chart Review: Acceptable Risk for Surgery (pending CBC and BMP results ) and Patient NOT seen in Pre Admission Testing Will order CBC and BMP for DOS. Had pacemaker placed 08/01/19- only pacer check available at this time was directly after implantation. History Surgery Operation Date: 12/20/19 08:45 Proposed Procedures p Right Femoral Popliteal Prosthetic Bypass - Payam Maya MD Height/Weight Height: 5 ft 2.5 in Weight: 79.204 kg Allergies Allergy/AdvReac Type Severity Reaction Status Date / Time acetaminophen Allergy Severe LIVER Verified 12/19/19 15:44 DAMAGE-DUE TO FAILURE adhesive Allergy Severe SEVERE Verified 12/19/19 15:44 SKIN IRRITATION amoxicillin Allergy Severe LIVER Verified 12/15/19 07:30 FAILURE clavulanic acid Allergy Severe LIVER Verified 12/15/19 07:30 FAILURE guanfacine Allergy Intermediate BP PROBLEMS Verified 12/19/19 15:44 nifedipine Allergy Intermediate BP PROBLEMS Verified 12/19/19 15:44 Medications Home Medications Medication Instructions Recorded Confirmed Last Taken pantoprazole 40 mg PO QAM 07/18/18 12/15/19 12/15/19 05:00 zolpidem 10 mg PO HS 07/18/18 12/15/19 12/14/19 20:00 rivaroxaban 20 mg tablet 20 mg PO QPM 12/20/18 12/15/19 12/14/19 19:00 calcium carbonate 200 mg calcium 200 mg PO DAILY PRN tab 05/17/19 12/15/19 Unknown (500 mg) chewable tablet ondansetron HCl 4 mg tablet 8 mg PO DAILY PRN tab 05/17/19 12/15/19 Unknown atorvastatin 80 mg tablet 80 mg PO DAILY tab 06/06/19 12/15/19 12/14/19 19:00 pregabalin 150 mg capsule 150 mg PO BID 06/06/19 12/15/19 12/15/19 05:00 Creon 1 cap PO TID 07/31/19 12/15/19 12/14/19 18:30 triamcinolone acetonide 0.1 % 1 appln TOP DAILY 10/09/19 12/15/19 3 Days Ago topical cream ~12/12/19 cilostazol 100 mg PO BID 12/15/19 12/15/1912/14/20 05:00 aspirin 81 mg PO QAM 12/19/19 12/19/19 Unknown metoprolol succinate 25 mg PO QAM 12/19/19 12/19/19 Unknown Past Medical History Medical History (Updated 12/19/19 @ 16:42 by Lorrie Lyn PA-C) Anxiety and depression Arthritis DVT (deep venous thrombosis) OVER 40 YEARS AGO Dyslipidemia GERD (gastroesophageal reflux disease) HTN (hypertension) Hx of migraines Hx of pancreatitis Chronic Hyponatremia Chronic issue- follows with nephrology Neuropathy Pacemaker IMPLANTED 07/2019 (DR. FELIPE)- [facility] >WILL BRING CARD Paroxysmal atrial fibrillation REASON FOR XARELTO PVD (peripheral vascular disease) Sinus node dysfunction S/p pacemaker Past Family History Family History Unknown No problems noted. Father Family history of diabetes mellitus Past Surgical History Surgical History (Updated 12/19/19 @ 16:42 by Lorrie Lyn PA-C) H/O vascular surgery "bilateral femoral endarterectomy with iliac stent 10/02/2016 Dr. Dharmesh Omalley, [facility]" History of amputation REVISION OF AMPUTATION LLE History of appendectomy History of colonoscopy History of tooth extraction Status post below knee amputation of left lower extremity Status post ORIF of fracture of ankle "12/18/16- ORIF closed displaced trimalleolar left ankle fracture; Dr. Fischer" Social History Smoking Status: Light tobacco smoker tobacco type: cigarettes Smoking cigarettes per day: 0.5 packs per day. Hx Alcohol Use: Yes Alcohol type: beer alcohol intake frequency: holidays/special occasions only Hx Substance Use: Yes substance use type: marijuana Substance Use Type Other:: Patient has medical marijuana card. Last Used Substance: Days (ago) Testing Laboratory Results 12/15/19= BUN: 10 CREAT: 0.94 Electrocardiogram Date: 07/31/19 Findings: + NSR @ (72) and + no change from (February 10, 2019) Low voltage QRS Chest X-Ray Date: 08/02/19 Findings: + NAD No evidence of pneumothorax status post placement of a left subclavian dual- chamber central venous pacemaker. The cardiac and mediastinal contours remain stable. There is a postinflammatory density within the right mid lung zone. There is an area of peripheral atelectasis within the right lower lung zone. There is no failure. There is no lobar consolidation. There are no pleural effusions. Echocardiogram Date: 10/10/16 EF: 60-65% LV Function: normal Mild TR Stress Test Date: 10/12/16 Type: nuclear Normal Lexiscan pharmacologic stress test with no evidence of resting or inducible ischemia. Gated wall motion was normal. Calculated EF >70% Other Testing Pacer check 08/01/19 (day of implantation)= [employer] Bennet XT MRI [id number]. Mode AAIR <--> DDDR.
[~2019-12-20 06:24] MED LIST changes: -AMIO200T4 PO; -AMLO10TA3 PO; -ATOR-26 PO; -CLC100 PO; +CLINDAMYCIN 600 MG/54 ML BAG IV SCH; -CMD/25 PO; -FLUO20CA35 PO; +LACTATED RINGER'S 1,000 ML IV SCH; -LDDP5 TD; -METO25TA56 PO; -ONDA8TAB62 SL; -OXYC-90 PO; -PREG1CAP28 PO; -PROM25SU28 PR; +SODIUM CHLORIDE 0.9% 250 ML IV PRN; -THIA100T27 PO; -WARF5TAB7 PO
[2019-12-20 07:06] LABS: Basophils # (auto) 0.04 K/uL (0-0.2); Basophils % (auto) 0.5 %; Eosinophils # (auto) 0.27 K/uL (0-0.5); Eosinophils % (auto) 3.1 %; Hematocrit (blood only) 34.8 % (37-47); Hemoglobin 11.6 g/dL (12.0-16.0); Immature Granulocytes # (auto) 0.02 K/uL (0.00-0.02); Immature Granulocytes % (auto) 0.2 %; Lymphocytes # (auto) 1.34 K/uL (1.2-3.4); Lymphocytes % (auto) 15.3 %; Mean Corpuscular Hemoglobin 26.3 pg (25-34); Mean Corpuscular Volume 78.9 fL (80-100); Mean Platelet Volume 11.4 fL (7.4-10.4); Monocytes # (auto) 0.62 K/uL (0.11-0.59); Monocytes % (auto) 7.1 %; Neutrophils # (auto) 6.47 K/uL (1.4-6.5); Neutrophils % (auto) 73.8 %; Platelet Count 221 K/uL (130-400); RDW Coefficient of Variation 16.8 % (11.5-14.5); RDW Standard Deviation 48.5 fL (36.4-46.3); Red Blood Count 4.41 M/uL (4.2-5.4); White Blood Count 8.76 K/uL (4.8-10.8)
[2019-12-20 07:08] LABS: Mean Corpuscular Hgb Conc 33.3 g/dL (32-36)
[2019-12-20 07:16] LABS: Partial Thromboplastin Ratio 1.1; Partial Thromboplastin Time 29.8 Seconds (21.0-31.0); Prothrombin Time 10.5 Seconds (9.0-12.0)
[2019-12-20 07:27] LABS: BUN Creatinine Ratio 10.6 (10-20); Calcium 9.1 mg/dl (8.5-10.1); Creatinine Clr Calc Pharmacy 68.6 ml/min; Est GFR (African American) 84.5; Est GFR (Non-African American) 72.9
--- NOTE | 2019-12-20 07:32 | XRay Report ---
XR chest 1V portable HISTORY: Preop. COMPARISON: Chest 08/02/2019. FINDINGS: Calcified granuloma within the right midlung zone. The lungs are otherwise clear. No pleura l effusions. No pneumothorax. The heart is normal in size. Left-sided dual-chamber pacemaker. IMPRESSION: No acute process. ACT 112: Negative or not required by law. Electronically signed by: Manan Colmenares M.D. 12/20/2019 7:31 AM
[2019-12-20] MEDS ORDERED: fentaNYL citrate 100 MCG/2 ML VIAL ONE ×2 (07:50→13:08)
[2019-12-20] MEDS ORDERED: LIDOCAINE HCL 2% 2 ML VIAL/AMP(20MG/ML) INFIL ONE (07:50)
[2019-12-20] MEDS ORDERED: DEXAMETHASONE SOD INJ 4 MG/ML VIAL ONE (07:50)
[2019-12-20] MEDS ORDERED: ONDANSETRON INJ 2 MG/ML 2 ML VIAL ONE (07:50)
[2019-12-20] MEDS ORDERED: PROPOFOL IV EMULSION 10 MG/ML 20 ML VIAL IV ONE (07:50)
[2019-12-20] MEDS ORDERED: ROCURONIUM BROMIDE 10 MG/ML 5 ML VIAL ONE ×5 (07:50→07:51)
[2019-12-20] MEDS ORDERED: MIDAZOLAM HCL 1 MG/ML 2ML VIAL ONE ×2 (07:50→09:35)
[2019-12-20] MEDS ORDERED: GLYCOPYRROLATE 0.2 MG/ML VIAL ONE (07:50)
[2019-12-20] MEDS ORDERED: NEOSTIGMINE METHYLSULFATE 5 MG/5 ML SYR ONE (07:50)
--- NOTE | 2019-12-20 07:54 | History & Physical Bridge Note ---
Date of Service December 20, 2019 History & Physical Bridge Note Patient admitted for urgent fem pop bypass for worsening rest pain and limb threatening ischemia. I have examined the patient, reviewed the History & Physical and in the interval since the performance of the History & Physical I have noted the following changes of clinical significance: no changes noted
[2019-12-20] MEDS ORDERED: SUCCINYLCHOLINE CHLORIDE 20 MG/ML 10 ML VIAL ONE (07:56)
[2019-12-20] MEDS ORDERED: LIDOCAINE HCL 1% 20 ML VIAL ONE (08:32)
[2019-12-20] MEDS ORDERED: HEPARIN (PORCINE) 1000 UNIT/ML 10 ML (CATH LAB USE ONLY) ONE (08:32)
[2019-12-20] MEDS ORDERED: PAPAVERINE HCL INJ 30 MG/ML 2 ML VIAL ONE (08:32)
[2019-12-20] MEDS ORDERED: IODIXANOL (VISIPAQUE) 270 MG/ML 50ML ONE (08:33)
[2019-12-20] MEDS ORDERED: THROMBIN 5000 UNITS KIT ONE (08:33)
[2019-12-20] MEDS ORDERED: GELATIN SPONGE SZ 100 ONE (08:33)
[2019-12-20] MEDS ORDERED: CEFAZOLIN 250 MG/ML 1 GM VIAL ONE (08:33)
[2019-12-20] MEDS ORDERED: BUPIVACAINE 0.5 % 5 MG/1 ML MPF 30ML VIAL ONE (08:34)
[2019-12-20] MEDS ORDERED: EPINEPHrine INJ 1 MG/ML AMP ONE (08:34)
[2019-12-20] MEDS ORDERED: ePHEDrine sulfate 50 MG/ML AMP IV PRN (09:41)
[2019-12-20] MEDS ORDERED: HYDROmorphone INJ 1 MG/ML SYRINGE IV PRN (09:41)
[2019-12-20] MEDS ORDERED: fentaNYL citrate 100 MCG/2 ML VIAL IV PRN (09:41)
[2019-12-20] MEDS ORDERED: ATROPINE SULFATE 0.1 MG/ML 10ML SYR IV PRN (09:41)
[2019-12-20] MEDS ORDERED: ONDANSETRON INJ 2 MG/ML 2 ML VIAL IV PRN (09:41)
[2019-12-20] MEDS ORDERED: ePHEDrine sulfate 50 MG/ML SYR ONE (10:39)
[2019-12-20] MEDS ORDERED: HEPARIN SOD (PORCINE) 1000 UNIT/ML 10 ML VIAL ONE ×2 (10:39→12:19)
[2019-12-20] MEDS ORDERED: THROMBIN FOR SOLN 20000 UNIT KIT ONE (11:22)
[2019-12-20] MEDS ORDERED: PROTAMINE SULFATE 10 MG/ML 5 ML VIAL ONE (12:49)
[2019-12-20 12:55] LABS: iSTAT Creatinine 0.7 mg/dl (0.6-1.3); iSTAT Hemoglobin 8.5 g/dl (12.0-16.0); iSTAT Ionized Calcium 1.19 mmol/l (1.12-1.32); iSTAT Potassium 4.5 mmol/L (3.3-5.0)
[2019-12-20] MEDS ORDERED: ALBUMIN HUMAN 5% 12.5 GM/250 ML VIAL IV ONE ×2 (13:00→14:15)
[2019-12-20] MEDS ORDERED: SODIUM CHLORIDE 0.9% 250 ML IV PRN ×2 (13:15→15:11)
--- NOTE | 2019-12-20 13:32 | Operative Report ---
Post Operative Report Pre & Post Diagnosis Operation Date: 12/20/19 08:45 Pre-Op Diagnosis: Right Superficial Femoral Artery Occlusion With Rest Pain Post-Op Diagnosis: Right Superficial Femoral Artery Occlusion With Rest Pain I identified the patient and participated in the time-out.: Yes Procedure Operation Date: 12/20/19 08:45 Actual Procedures p Right Femoral Popliteal Prosthetic Bypass, Right Common Femoral Artery Endartectomy with Bovine Patch(Right) - Payam Maya MD Surgeon Payam Maya MD Corrugator Ynes,PAC Estimated Blood Loss 350 Findings Consistent with Post-Op Diagnosis Specimens None Anesthesia Type General Complications none Disposition Accompanied Patient To Recovery: No Disposition: Recovery Room Indications This is a 59-year-old female who had a right superficial femoral artery occlusion. She had some discomfort in her foot however over the last few days she has developed significant rest pain which wakes her up at night. Is relieved by dangling her foot over the side of the bed. Urgent femoropopliteal bypass was recommended being that we could not get through with an endovascular approach last week. I have discussed the risks options and benefits of the procedure with the patient. The patient understands the risks options and benefits and agrees to the procedure. Description of Procedure The patient was taken to the operating placed in the supine position after general anesthesia was accomplished the right leg was prepped and draped in a sterile manner. A timeout was performed and the patient was identified. Longitudinal incision was made in the right groin. This is carried down to where the common femoral superficial femoral and profunda femoral arteries were identified. There is a femoral scar tissue overlying the femoral artery most likely from previous surgeries. It is believed that she did have a patch that artery in the past. Once they were all exposed we made a longitudinal incision in the right lower leg just below the knee medially. This carried out to where the popliteal fossa was identified. The popliteal arteries was seen. It was soft in its proximal portion then became calcified and did have some soft areas down at the takeoff of the anterior tibial artery. This was all exposed including the anterior tibial artery origin and the tibioperoneal trunk. Pat ient was heparinized at that time. Using a Gates tunneler 6 mm propatent graft was passed through the tunnel. After patient was adequately heparinized the popliteal anterior tibial and tibioperoneal trunk were clamped proximal distally. Longitudinal arteriotomy was then made in the distal popliteal artery. The plaque in the midportion was almost totally occlusive. This was endarterectomized. There is a decent breakoff point distally. One tacking stitch had to be use of 7-0 Prolene. We then beveled the Gates-Darío graft in usual fashion. End-to-side anastomosis was accomplished using a 6-0 Prolene suture in usual vascular fashion. The graft was then backbled and flushed. Clamp was then placed on the graft. The leg was straightened. The common femoral artery profundofemoral artery and superficial femoral arteries were then clamped. Longitudinal arteriotomy started in the common femoral artery. It was carried proximally distally through the area of hyperplasia from her previous patch. The patch which was present was totally removed. The other was carried down through the origin of the superficial femoral artery. Good distal breakoff point was seen. Maximally the arteriotomy extended up beyond the hyperplasia. Good inflow was seen at that point. The arteriotomy was then closed with a bovine patch with a 5-0 Prolene suture in usual vascular fashion. Once this was completed and arteriotomy was made on the bovine patch the Gates-Darío graft was pulled the appropriate length and an end-to-side anastomosis was accomplished using a 6-0 Prolene suture in usual vascular fashion. Prior to completing the closure backbleeding and fore bleeding was allowed to occur. The final few sutures were then placed and securely tied. Clamps are removed excellent flow was seen through the graft. Excellent Doppler signals were heard distal to the graft with good Doppler signals at the dorsalis pedis and posterior tibial artery. Adequate stasis was then obtained using Gelfoam thrombin and Surgicel. Once this was accomplished the wounds were closed in usual fashion using running 3-0 Vicryl for the subcutaneous layer and the calf incision neto for the skin. The groin was closed with 2-0 Vicryl for the femoral sheath 3-0 Vicryl subcutaneous layer and neto for the skin. Both wounds were irrigated with antibiotic solution prior to closure. Sterile dressings were applied to both wounds. The patient left the operation room in satisfactory condition and tolerated the procedure well. All needle and sponge counts were correct at the end of the procedure. Nimo Leigh Pac assisted due to lack of resident availability and was necessary for positioning, draping, retraction, wound closure deep layers, subcutaneous tissue, and skin closure and was necessary for assisting with the case. I attest to the content of the Intraoperative Record and any orders documented therein. Any exceptions are noted below.
--- NOTE | 2019-12-20 13:59 | Electrocardiogram Report ---
Test Reason : Blood Pressure : / mmHG Vent. Rate : 074 BPM Atrial Rate : 074 BPM P-R Int : 188 ms QRS Dur : 074 ms QT Int : 372 ms P-R-T Axes : 041 040 043 degrees QTc Int : 412 ms Normal sinus rhythm Normal ECG When compared with ECG of 31-JUL-2019 14:25, No significant change was found Confirmed by Aidan Merchant ([id number]) on 12/20/2019 1:58:44 PM Referred By: Payam Maya Confirmed By:Silvino Merchant
[2019-12-20] MEDS ORDERED: ALBUMIN HUMAN 25% 12.5 GM/50 ML VIAL IV ONE (14:13)
[2019-12-20 14:36] LABS: Hematocrit (blood only) 23.7 % (37-47); Hemoglobin 7.9 g/dL (12.0-16.0)
[2019-12-20] MEDS ORDERED: ALBUMIN 5% 250 ML IV SCH (14:45)
--- NOTE | 2019-12-20 15:16 | Anesthesiology Progress Note ---
Date of Service December 20, 2019 Anesthesia Post Procedure Vital Signs Vital Signs: Temp Pulse Pulse Resp BP BP Pulse Ox 12/20/19 14:30 78 15 114/54 L 101/65 100 12/20/19 14:25 83 15 118/53 L 91/61 L 100 12/20/19 14:20 90 18 104/53 L 95/62 L 100 12/20/19 14:15 90 18 87/53 L 80/69 L 100 12/20/19 14:10 92 H 16 114/63 110/75 100 12/20/19 14:05 102 H 16 82/48 L 74/41 L 100 12/20/19 14:03 102 H 16 89/59 L 77/46 L 100 12/20/19 14:00 96 H 14 96/70 L 91/51 L 100 12/20/19 13:55 98 H 16 93/65 L 93/69 L 100 12/20/19 13:50 109 H 15 100/56 L 100 12/20/19 13:48 36.3 C L 114 H 114 H 15 89/56 L 100 12/20/19 07:15 36.8 C 75 18 156/81 H 99 Pain Intensity Right Leg: Pain Intensity: 8 Transfer of Care Handoff Completed per policy Notes Mental Status: alert / awake / arousable and participated in evaluation Patient Amnestic to Procedure: Yes Nausea / Vomiting: adequately controlled Pain: adequately controlled Airway Patency, RR, SpO2: stable & adequate BP & HR: stable & adequate Hydration State: stable & adequate Anesthetic Complications: no major complications apparent and Pt Satisfied with anesthetic care Notes: Hypotension in PACU improved after volume given. Repeat Hgb 7.9. I spoke with Dr. Maya and will order another unit of PRBCs to be given. Patient ok to transfer to the ICU to get blood transfusion there.
[2019-12-20] MEDS ORDERED: TRIAMCINOLONE ACET 0.1% CR 15 GM TUBE TOP PRN (15:46)
[2019-12-20] MEDS ORDERED: CALCIUM CARBONATE 500 MG CHEWABLE TAB PO PRN (15:46)
[2019-12-20] MEDS ORDERED: OXYCODONE HCL SOLN 5 MG/5 ML UDC PO PRN (15:46)
[2019-12-20] MEDS ORDERED: MoRPHine SULFATE 4 MG/ML 1 ML CARP\\VIAL IV PRN (15:46)
[2019-12-20 16:00] LABS: Hematocrit (blood only) 22.1 % (37-47); Hemoglobin 7.6 g/dL (12.0-16.0); Mean Corpuscular Hemoglobin 26.6 pg (25-34); Mean Corpuscular Volume 77.3 fL (80-100); Mean Platelet Volume 10.6 fL (7.4-10.4); Platelet Count 159 K/uL (130-400); RDW Standard Deviation 45.4 fL (36.4-46.3); Red Blood Count 2.86 M/uL (4.2-5.4); White Blood Count 12.34 K/uL (4.8-10.8)
[2019-12-20 16:01] LABS: Mean Corpuscular Hgb Conc 34.4 g/dL (32-36)
[2019-12-20] MEDS: D5W AND 1/2NSS 1,000 ML IV SCH (16:21)
[2019-12-20 16:26] LABS: Basophils # (auto) 0.01 K/uL (0-0.2); Basophils % (auto) 0.1 %; Echinocytes 1+; Eosinophils # (auto) 0.01 K/uL (0-0.5); Eosinophils % (auto) 0.1 %; Giant Platelets 1+; Immature Granulocytes # (auto) 0.03 K/uL (0.00-0.02); Immature Granulocytes % (auto) 0.2 %; Lymphocytes # (auto) 0.89 K/uL (1.2-3.4); Lymphocytes % (auto) 7.2 %; Monocytes # (auto) 0.13 K/uL (0.11-0.59); Monocytes % (auto) 1.1 %; Neutrophils # (auto) 11.27 K/uL (1.4-6.5); Neutrophils % (auto) 91.3 %; Ovalocytes 1+
[2019-12-20] MEDS: PANCREAZE (LIPASE 10,500U) CAP PO SCH (16:50)
--- NOTE | 2019-12-20 16:53 | Critical Care Consultation ---
Date of Consultation December 20, 2019 Assessment & Plan (1) Atherosclerosis of artery of extremity with rest pain: Impression: 59-year-old female with severe atherosclerotic disease as well as a variety of other medical issues well delineated in the electronic medical record admitted to the ICU post urgent femoral-popliteal bypass on the right lower extremity. Recommendations: 1. Urgent femoropopliteal bypass: Continue monitoring per vascular surgery. Postop orders per vascular surgery. 2. Hypertension: 3. Anemia, postoperatively: Management per vascular surgery. Defer transfusion thresholds to them. 4. Leukocytosis: Suspect reactive related to surgery. No indication for acute infection currently. Continue to follow closely. 5. Chronic pancreatitis: Continue replacement enzymes. 6. Sinus node dysfunction with hyperlipidemia and underlying cardiovascular disease: Reviewed prior cardiology notes. Continue aspirin and Lipitor metoprolol and anticoagulation per vascular surgery. 7. Patient will require physical therapy and Occupational Therapy. Disposition deferred to vascular surgery. (2) Tobacco use disorder: (3) Chronic pancreatitis: History of Present Illness Attending Physician: Payam Maya MD History of Present Illness Asked by Dr. Maya to assist in evaluation patient status post urgent femoropopliteal bypass for critical leg ischemia. History is obtained from review electronic medical record and discussion with the patient. Patient is a 59-year-old female with history of atherosclerotic disease. She is status post left leg amputation vascular insufficiency. She had discomfort in the right leg with numbness and tingling. She had undergone a previous endovascular procedure on December 14 which was ultimately unsuccessful. She was taken to the OR today for urgent femoropopliteal bypass and return to the ICU for monitoring. She is complaining of some throbbing in the. She is hemodynamically stable. She is awake and eating. She is not particularly happy with the food choices offered her. Allergies Allergy/AdvReac Type Severity Reaction Status Date / Time acetaminophen Allergy Severe LIVER Verified 12/20/19 07:07 DAMAGE-DUE TO FAILURE adhesive Allergy Severe SEVERE Verified 12/20/19 07:07 SKIN IRRITATION amoxicillin Allergy Severe LIVER Verified 12/20/19 07:07 FAILURE clavulanic acid Allergy Severe LIVER Verified 12/20/19 07:07 FAILURE guanfacine Allergy Intermediate BP PROBLEMS Verified 12/20/19 07:07 nifedipine Allergy Intermediate BP PROBLEMS Verified 12/20/19 07:07 Home Medications Home Medications Medication Instructions Recorded Confirmed Type pantoprazole [Protonix] 40 mg PO QAM 07/18/18 12/20/19 History zolpidem [Ambien] 10 mg PO HS 07/18/18 12/20/19 History rivaroxaban 20 mg tablet 20 mg PO QPM 12/20/18 12/20/19 History calcium carbonate 200 mg calcium 200 mg PO DAILY PRN tab 05/17/19 12/20/19 History (500 mg) chewable tablet ondansetron HCl 4 mg tablet 8 mg PO DAILY PRN tab 05/17/19 12/20/19 History atorvastatin 80 mg tablet 80 mg PO DAILY tab 06/06/19 12/20/19 History pregabalin 150 mg capsule 150 mg PO BID 06/06/19 12/20/19 History Creon 1 cap PO TID 07/31/19 12/20/19 History triamcinolone acetonide 0.1 % 1 appln TOP DAILY PRN 10/09/19 12/20/19 History topical cream cilostazol 100 mg PO BID 12/15/19 12/20/19 History aspirin 81 mg PO QAM 12/19/19 12/20/19 History metoprolol succinate 25 mg PO QAM 12/19/19 12/20/19 History Patient History Family History Unknown No problems noted. Father Family history of diabetes mellitus Social History Preferred Language: German Communication Ability: Effective Supervisor Cigar Processing Required: No Beliefs That Will Affect Care: None marital status: Current Living Situation: Spouse current occupation: Retired Feels Safe at Home: Yes Safety Concerns: Feels Safe At This Time Smoking Status: Current every day smoker Tobacco Type: cigarettes ; Cigarettes Per Day: 0.5 packs per day. ; Do You Dip or Chew Tobacco: No ; Smoking End Date: 10 CIG DAILY ; Second Hand Exposure: Yes ; Tobacco Cessation Education Requested by Patient: No Hx Alcohol Use: Yes Alcohol type: beer Hx Substance Use: No Review of Systems Review of Systems: See HPI Physical Exam Constitutional: well developed and well nourished; no acute distress Respiratory: normal respiratory effort, lungs clear to auscultation Cardiovascular: RRR, no murmur, no edema Vessels: femoral pulses present (normal on right, barely palpable on left); + posterior tibial pulses abnormal and + dorsalis pedis pulses abnormal Gastrointestinal (Abdomen): normal bowel sounds, soft, nontender, no hepatosplenomegaly Neurologic: normal sensation to monofilament, moves all extremities and awake Psychiatric: Orientation: alert and oriented x 3 Results & Data ([facility]) Vital Signs (Past 12 Hours) Vital Signs Temp Pulse Pulse Pulse Resp BP BP 12/20/19 16:34 36.7 C 99 H 16 98/51 L 12/20/19 16:11 36.4 C L 88 16 91/50 L 12/20/19 15:20 36.2 C L 89 15 95/49 L 12/20/19 15:10 90 16 89/46 L 12/20/19 15:00 83 14 106/55 L 12/20/19 14:50 81 12 110/56 L 12/20/19 14:40 83 16 109/51 L 12/20/19 14:30 78 15 114/54 L 12/20/19 14:25 83 15 118/53 L 12/20/19 14:20 90 18 104/53 L 12/20/19 14:15 90 18 87/53 L 12/20/19 14:10 92 H 16 114/63 12/20/19 14:05 102 H 16 82/48 L 12/20/19 14:03 102 H 16 89/59 L 12/20/19 14:00 96 H 14 96/70 L 12/20/19 13:55 98 H 16 93/65 L 12/20/19 13:50 109 H 15 12/20/19 13:48 36.3 C L 114 H 114 H 15 12/20/19 07:15 36.8 C 75 18 BP Pulse Ox 12/20/19 16:34 100 12/20/19 16:11 100 12/20/19 15:20 89/53 L 100 12/20/19 15:10 74/47 L 100 12/20/19 15:00 89/58 L 100 12/20/19 14:50 99/63 L 100 12/20/19 14:40 98/65 L 100 12/20/19 14:30 101/65 100 12/20/19 14:25 91/61 L 100 12/20/19 14:20 95/62 L 100 12/20/19 14:15 80/69 L 100 12/20/19 14:10 110/75 100 12/20/19 14:05 74/41 L 100 12/20/19 14:03 77/46 L 100 12/20/19 14:00 91/51 L 100 12/20/19 13:55 93/69 L 100 12/20/19 13:50 100/56 L 100 12/20/19 13:48 89/56 L 100 12/20/19 07:15 156/81 H 99 Laboratory Results 12/20/19 15:54 12/20/19 06:53 Diagnostic Findings Chest x-ray independently reviewed. Pacemaker in place. No acute airspace opacity identified. There are a few calcified nodules present in the right midlung zone, consistent with prior granulomatous disease. Coding Level of Care Code 96613 Inpt Consult Level 4 Diagnoses Atherosclerosis of artery of extremity with rest pain I70.229 Tobacco use disorder F17.200 Chronic pancreatitis K86.0 Pancreatitis type: alcohol induced Time Spent (min) 45 (1) Chronic pancreatitis Pancreatitis type: alcohol induced Qualified Code(s): K86.0 - Alcohol-induced chronic pancreatitis
[2019-12-20] MEDS ORDERED: Nursing to Pharmacy Communication ONE (18:46)
[2019-12-20] MEDS: cilostazoL 100 MG TAB PO SCH ×2 (20:09→22:44)
[2019-12-20] MEDS: PREGABALIN 150 MG CAP PO SCH (20:14)
[2019-12-20] MEDS: HYDROmorphone INJ 1 MG/ML SYRINGE IV PRN ×2 (20:14→23:30)
[2019-12-20] MEDS: ONDANSETRON 4 MG OD TAB PO PRN (22:36)
[2019-12-21 00:28] LABS: Hematocrit (blood only) 23.8 % (37-47); Hemoglobin 8.2 g/dL (12.0-16.0)
[2019-12-21] MEDS: D5W AND 1/2NSS 1,000 ML IV SCH ×2 (00:44→09:30)
[2019-12-21] MEDS ORDERED: NORMOSOL-R 500 ML IV ONE ×2 (00:51→04:05)
[2019-12-21 04:14] LABS: Basophils # (auto) 0.01 K/uL (0-0.2); Basophils % (auto) 0.1 %; Hematocrit (blood only) 22.7 % (37-47); Hemoglobin 7.7 g/dL (12.0-16.0); Immature Granulocytes # (auto) 0.02 K/uL (0.00-0.02); Immature Granulocytes % (auto) 0.2 %; Lymphocytes # (auto) 1.52 K/uL (1.2-3.4); Lymphocytes % (auto) 11.9 %; Mean Corpuscular Hemoglobin 26.6 pg (25-34); Mean Corpuscular Hgb Conc 33.9 g/dL (32-36); Mean Corpuscular Volume 78.3 fL (80-100); Mean Platelet Volume 11.1 fL (7.4-10.4); Monocytes # (auto) 0.88 K/uL (0.11-0.59); Monocytes % (auto) 6.9 %; Neutrophils # (auto) 10.36 K/uL (1.4-6.5); Neutrophils % (auto) 80.9 %; Platelet Count 141 K/uL (130-400); RDW Coefficient of Variation 16.1 % (11.5-14.5); RDW Standard Deviation 46.4 fL (36.4-46.3); White Blood Count 12.79 K/uL (4.8-10.8)
[2019-12-21 04:34] LABS: Calcium 7.5 mg/dl (8.5-10.1); Creatinine Clr Calc Pharmacy 69.4 ml/min; Est GFR (African American) 85.7; Est GFR (Non-African American) 73.9; Potassium 4.5 mmol/L (3.5-5.1)
[2019-12-21 04:44] LABS: Echinocytes 1+; Giant Platelets 1+; Ovalocytes 1+
[2019-12-21] MEDS: ZOLPIDEM TARTRATE 10 MG TAB PO SCH ×2 (04:56→20:46)
[2019-12-21] MEDS: HYDROmorphone INJ 1 MG/ML SYRINGE IV PRN ×7 (05:38→23:39)
[2019-12-21] MEDS: PANCREAZE (LIPASE 10,500U) CAP PO SCH ×3 (07:52→18:34)
[2019-12-21] MEDS: cilostazoL 100 MG TAB PO SCH ×2 (07:58→20:47)
[2019-12-21] MEDS: ASPIRIN 81 MG ECTAB PO SCH (07:59)
[2019-12-21] MEDS: PREGABALIN 150 MG CAP PO SCH ×2 (08:00→20:46)
[2019-12-21] MEDS ORDERED: SODIUM CHLORIDE 0.9% 250 ML IV PRN (08:29)
[2019-12-21] MEDS ORDERED: ATORVASTATIN 40 MG TAB PO SCH (09:00)
[2019-12-21] MEDS ORDERED: PANTOprazole 40 MG TAB PO SCH ×2 (09:00→21:00)
[2019-12-21] MEDS: METOPROLOL SUCC 25MG EXT REL TAB PO SCH (10:17)
--- NOTE | 2019-12-21 10:39 | Critical Care Progress Note ---
Date of Service December 21, 2019 Assessment & Plan (1) Atherosclerosis of artery of extremity with rest pain: Impression: 59-year-old female with severe atherosclerotic disease as well as a variety of other medical issues well delineated in the electronic medical record admitted to the ICU post urgent femoral-popliteal bypass on the right lower extremity. Recommendations: 1. Urgent femoropopliteal bypass: Continue monitoring per vascular surgery. Postop orders per vascular surgery. 2. Hypertension: Continue metoprolol 3. Anemia, postoperatively: Management per vascular surgery. Defer transfusion thresholds to them. 4. Leukocytosis: Suspect reactive related to surgery. No indication for acute infection currently. Continue to follow closely. 5. Chronic pancreatitis: Continue replacement enzymes. 6. Sinus node dysfunction with hyperlipidemia and underlying cardiovascular disease: Reviewed prior cardiology notes. Continue aspirin and Lipitor metoprolol and anticoagulation per vascular surgery. 7. Patient will require physical therapy and Occupational Therapy. 8. Anemia: transfused. Per vascular surgery. Disposition deferred to vascular surgery. (2) Tobacco use disorder: (3) Chronic pancreatitis: Physical Exam Constitutional: well developed and well nourished; no acute distress Respiratory: normal respiratory effort, lungs clear to auscultation Cardiovascular: RRR, no murmur, no edema Vessels: femoral pulses present (normal on right, barely palpable on left); + posterior tibial pulses abnormal and + dorsalis pedis pulses abnormal Gastrointestinal (Abdomen): normal bowel sounds, soft, nontender, no hepatosplenomegaly Neurologic: normal sensation to monofilament, moves all extremities and awake Psychiatric: Orientation: alert and oriented x 3 Results & Data ([facility]) Vital Signs (Past 12 Hours) Vital Signs Temp Pulse Resp BP Pulse Ox Pulse Ox 12/21/19 10:25 37.1 C 72 14 121/60 91 12/21/19 09:02 37.1 C 70 12 96/48 L 89 L 12/21/19 09:00 78 9 L 82 L 12/21/19 08:32 80 13 116/66 95 12/21/19 08:03 72 16 89/52 L 99 12/21/19 08:00 72 12/21/19 07:02 80 17 107/82 96 12/21/19 05:32 76 14 92/53 L 94 12/21/19 05:18 75 19 89/55 L 100 12/21/19 05:02 77 18 84/46 L 95 12/21/19 05:00 74 16 93 12/21/19 04:47 71 14 86/44 L 92 12/21/19 04:32 68 10 L 100/53 L 94 12/21/19 04:17 72 19 78/46 L 93 12/21/19 04:12 72 12/21/19 04:02 71 12 63/32 L 93 12/21/19 04:00 36.6 C 72 9 L 93 12/21/19 03:47 79 11 L 98/60 L 96 12/21/19 03:32 69 12 97/48 L 93 12/21/19 03:17 69 10 L 102/55 L 93 12/21/19 03:02 68 12 90/52 L 93 12/21/19 03:00 69 10 L 93 12/21/19 02:47 71 11 L 92/51 L 93 12/21/19 02:32 71 10 L 80/47 L 93 12/21/19 02:17 67 10 L 84/52 L 91 12/21/19 02:02 72 13 68/35 L 92 12/21/19 02:00 75 19 99 12/21/19 01:47 69 11 L 95/42 L 91 12/21/19 01:32 69 14 70/39 L 92 12/21/19 01:17 68 10 L 84/40 L 93 12/21/19 01:02 69 10 L 86/52 L 95 12/21/19 01:00 69 9 L 92 12/21/19 00:47 68 7 L 97/52 L 94 12/21/19 00:32 72 9 L 64/27 L 90 12/21/19 00:17 68 13 98/53 L 92 12/21/19 00:02 65 8 L 92/51 L 92 12/21/19 00:00 36.6 C 65 10 L 92 12/20/19 23:58 93 12/20/19 23:47 62 11 L 62/30 L 93 12/20/19 23:32 69 18 91/53 L 97 12/20/19 23:17 62 12 76/40 L 94 12/20/19 23:02 36.6 C 63 15 95/40 L 94 12/20/19 23:00 62 13 93 12/20/19 22:47 62 15 64/31 L 94 Coding Level of Care Code 74496 Subseq Hosp Care Lvl 2 Diagnoses Atherosclerosis of artery of extremity with rest pain I70.229 Tobacco use disorder F17.200 Chronic pancreatitis K86.0 Pancreatitis type: alcohol induced (1) Chronic pancreatitis Pancreatitis type: alcohol induced Qualified Code(s): K86.0 - Alcohol-induced chronic pancreatitis
[2019-12-21] MEDS ORDERED: OXYCODONE HCL SOLN 5 MG/5 ML UDC PO PRN (14:41)
--- NOTE | 2019-12-21 14:49 | Surgery Progress Note ---
Date of Service December 21, 2019 Assessment & Plan (1) S/P femoral-popliteal bypass surgery: Patient doing well. Will transfer to floor. (2) Acute blood loss anemia: Had one more unit today. Will follow hgb Subjective Patient denies any foot pain. Totally resolved. Does have incisional pain. Physical Exam Cardiovascular: Rate/Rhythm: regular rate and regular rhythm Vessels: posterior tibial pulses present (doppler) and dorsalis pedis pulses present (doppler) Skin: incision clean Results & Data Vital Signs (Past 12 Hours) Vital Signs Temp Pulse Resp BP Pulse Ox 12/21/19 12:48 37.1 C 82 15 99/52 L 95 12/21/19 12:33 72 10 L 104/65 94 12/21/19 12:03 37.1 C 71 20 103/60 95 12/21/19 11:03 74 11 L 109/70 92 12/21/19 10:40 78 26 H 103/63 93 12/21/19 10:25 37.1 C 72 14 121/60 91 12/21/19 09:02 37.1 C 70 12 96/48 L 89 L 12/21/19 09:00 78 9 L 82 L 12/21/19 08:32 80 13 116/66 95 12/21/19 08:03 72 16 89/52 L 99 12/21/19 08:00 72 12/21/19 07:02 80 17 107/82 96 12/21/19 05:32 76 14 92/53 L 94 12/21/19 05:18 75 19 89/55 L 100 12/21/19 05:02 77 18 84/46 L 95 12/21/19 05:00 74 16 93 12/21/19 04:47 71 14 86/44 L 92 12/21/19 04:32 68 10 L 100/53 L 94 12/21/19 04:17 72 19 78/46 L 93 12/21/19 04:12 72 12/21/19 04:02 71 12 63/32 L 93 12/21/19 04:00 36.6 C 72 9 L 93 12/21/19 03:47 79 11 L 98/60 L 96 12/21/19 03:32 69 12 97/48 L 93 12/21/19 03:17 69 10 L 102/55 L 93 03/26/20 03:02 68 12 90/52 L 93 12/21/19 03:00 69 10 L 93 12/21/19 02:47 71 11 L 92/51 L 93
[2019-12-21] MEDS: OXYCODONE HCL IR 5 MG TAB (IMMEDIATE RELEASE) PO PRN ×2 (15:58→22:12)
[2019-12-21] MEDS: ATORVASTATIN 40 MG TAB PO SCH (20:46)
[2019-12-21] MEDS: ONDANSETRON 4 MG OD TAB PO PRN (23:38)
[2019-12-22 05:39] LABS: Hematocrit (blood only) 26.5 % (37-47); Hemoglobin 8.7 g/dL (12.0-16.0)
[2019-12-22] MEDS: OXYCODONE HCL IR 5 MG TAB (IMMEDIATE RELEASE) PO PRN ×3 (06:11→18:57)
[2019-12-22] MEDS: ONDANSETRON 4 MG OD TAB PO PRN (07:30)
[2019-12-22] MEDS: PREGABALIN 150 MG CAP PO SCH ×2 (08:22→21:25)
[2019-12-22] MEDS: ASPIRIN 81 MG ECTAB PO SCH (08:22)
[2019-12-22] MEDS: PANCREAZE (LIPASE 10,500U) CAP PO SCH ×3 (08:22→17:12)
[2019-12-22] MEDS: cilostazoL 100 MG TAB PO SCH ×2 (08:23→21:25)
[2019-12-22] MEDS ORDERED: Nursing to Pharmacy Communication ONE (08:26)
[2019-12-22] MEDS: METOPROLOL SUCC 25MG EXT REL TAB PO SCH ×2 (08:35→13:19)
[2019-12-22] MEDS: PANTOprazole 40 MG TAB PO SCH (09:57)
--- NOTE | 2019-12-22 13:24 | Surgery Progress Note ---
Date of Service December 22, 2019 Assessment & Plan (1) S/P femoral-popliteal bypass surgery: Pt doing well post op. BP improved, VSS. Continue with PT/OT. Subjective 59 yo f POD #2 after RLE fem-pop prosthetic BPG and R common fem endarterectomy, seen in f/u today. Pt states pain in incisions only. Denies any other complaints. Review of Systems Review of Systems: All systems reviewed & are unremarkable except as noted in HPI & below Physical Exam Constitutional: WD/WN, vitals as above Respiratory: normal respiratory effort, lungs clear to auscultation Cardiovascular: Rate/Rhythm: + irregularly irregular Vessels: posterior tibial pulses present (RLE with doppler) and dorsalis pedis pulses present (RLE with doppler, LLE BKA) Extremities: normal capillary refill and + edema (mild local) Gastrointestinal (Abdomen): normal bowel sounds, soft, nontender, no hepatosplenomegaly Skin: no rashes, warm and dry + incision (RLE incision C/D/I with neto. minimal bleeding from distal incision.) Psychiatric: A+Ox3, euthymic affect Results & Data Vital Signs (Past 12 Hours) Vital Signs Temp Pulse Pulse Resp BP BP BP 12/22/19 13:15 86 122/67 12/22/19 11:04 94/60 L 12/22/19 08:35 66 94/59 L 12/22/19 07:26 36.7 C 84 16 95/59 L Pulse Ox 12/22/19 13:15 12/22/19 11:04 12/22/19 08:35 12/22/19 07:26 97
[2019-12-22] MEDS: HYDROmorphone INJ 1 MG/ML SYRINGE IV PRN ×2 (15:27→21:26)
[2019-12-22] MEDS: ZOLPIDEM TARTRATE 10 MG TAB PO SCH (21:25)
[2019-12-22] MEDS: RIVAROXABAN 20 MG TAB PO SCH (21:26)
[2019-12-22] MEDS: ATORVASTATIN 40 MG TAB PO SCH (21:26)
[2019-12-23] MEDS: HYDROmorphone INJ 1 MG/ML SYRINGE IV PRN ×3 (00:04→19:29)
[2019-12-23] MEDS: OXYCODONE HCL IR 5 MG TAB (IMMEDIATE RELEASE) PO PRN ×4 (02:44→23:09)
[2019-12-23] MEDS: PREGABALIN 150 MG CAP PO SCH ×2 (07:40→20:38)
[2019-12-23] MEDS: ASPIRIN 81 MG ECTAB PO SCH (07:41)
[2019-12-23] MEDS: cilostazoL 100 MG TAB PO SCH ×2 (07:41→20:38)
[2019-12-23] MEDS: METOPROLOL SUCC 25MG EXT REL TAB PO SCH (07:42)
[2019-12-23] MEDS: PANTOprazole 40 MG TAB PO SCH (07:42)
[2019-12-23] MEDS: PANCREAZE (LIPASE 10,500U) CAP PO SCH ×3 (09:17→16:59)
--- NOTE | 2019-12-23 10:02 | Surgery Progress Note ---
Date of Service December 23, 2019 Assessment & Plan (1) S/P femoral-popliteal bypass surgery: Pt doing well post op. She is doing well physical therapy. I did consult the hospitalist secondary to her increased heart rate. Most likely she will need an extra dose of metoprolol to help get her back to her lower heart rate. We will also culture her groins being that these were the sites of her MRSA infection 2 years ago. Hopefully these will be negative so we can get her off her isolation precautions. Subjective 59 yo f POD #3 after RLE fem-pop prosthetic BPG and R common fem endarterectomy, seen in f/u today. She was noted to have an icrease in her heart rate.Increase in her heart rate. She does have atrial fibrillation is on metoprolol. She did miss a couple doses due to hypotension. Her low blood pressure was secondary to her right subclavian artery stenosis. Her blood pressure was fine in her left arm. Physical Exam Cardiovascular: Rate/Rhythm: + irregularly irregular Vessels: posterior tibial pulses present (doppler) and dorsalis pedis pulses present (doppler) Extremities: + edema (She does have edema of the right thigh secondary to her surgical procedure.) Skin: + incision (Incision is dry and clean.) Results & Data Vital Signs (Past 12 Hours) Vital Signs Temp Pulse Resp BP Pulse Ox Pulse Ox 12/23/19 06:59 36.8 C 131 H 16 108/65 92 12/22/19 23:30 94 12/22/19 23:05 36.9 C 103 H 18 111/69 94
[2019-12-23] MEDS ORDERED: METOPROLOL TARTRATE 1 MG/ML VIAL IV STA ×2 (11:17→23:34)
--- NOTE | 2019-12-23 12:57 | Electrocardiogram Report ---
Test Reason : Blood Pressure : / mmHG Vent. Rate : 140 BPM Atrial Rate : 000 BPM P-R Int : 000 ms QRS Dur : 076 ms QT Int : 292 ms P-R-T Axes : 000 044 044 degrees QTc Int : 445 ms Atrial fibrillation with rapid ventricular response Low voltage QRS Abnormal ECG When compared with ECG of 20-DEC-2019 07:13, Atrial fibrillation has replaced Sinus rhythm Vent. rate has increased BY 66 BPM T wave amplitude has decreased in Lateral leads Confirmed by Mj Herrera ([id number]) on 12/23/2019 12:57:01 PM Referred By: Payam Maya Confirmed By:Mj Herrera
--- NOTE | 2019-12-23 13:26 | Family Medicine Progress Note ---
Date of Service December 23, 2019 Assessment & Plan (1) Atrial fibrillation with rapid ventricular response: - cardioversion to sinus following administration of metoprolol 25mg PO x 1 - continue metoprolol regimen daily - on rivaroxaban PO chronically following surgery Present on Admission?: No (2) Acute blood loss anemia: - trend CBC - transfusion threshold of < 7 if needed (3) S/P femoral-popliteal bypass surgery: management per primary team, pain adequately controlled on present regimen per patient (4) GERD (gastroesophageal reflux disease): - continue pantoprazole (5) Depression: - will investigate re: further medications for this condition, currently taking zolpidem 10mg PO qHS Admission and Anticipated Discharge Date Admission Date: December 20, 2019 Subjective Pt seen and examined at bedside. On evaluation, patient reports ongoing pain and swelling of the RLE which is similar to following previous surgical interventions. Otherwise is presently aysmptomatic from a cardiac perspective. States that her AF has not been a problem since her pacemaker was placed. Review of Systems Constitutional: no fever, no chills and no malaise Cardiovascular: no chest pain, no dyspnea, no orthopnea and no palpitations Gastrointestinal: no abdominal pain, no nausea, no vomiting, no constipation and no diarrhea/loose stools Integumentary: no rash and no lesions Neurologic: no tingling, no numbness and no headache(s) Physical Exam Constitutional: WD/WN, vitals as above no acute distress Respiratory: normal respiratory effort, lungs clear to auscultation Cardiovascular: RRR, no murmur, no edema Heart Sounds: normal S1 and normal S2 Gastrointestinal (Abdomen): normal bowel sounds, soft, nontender, no hepatosplenomegaly Skin: no rashes, warm and dry RLE postoperative edema diffusely with surgical sites without visible induration/erythema Neurologic: PERRL, EOMI, accommodation nl, no face palsy, no dysarthria Psychiatric: A+Ox3, euthymic affect Speech: normal rate/rhythm/volume of speech Results & Data ([place]) Vital Signs (Past 12 Hours) Vital Signs Temp Pulse Pulse Resp BP Pulse Ox 12/23/19 12:00 36.8 C 90 18 109/68 93 12/23/19 10:48 37 C 108 H 108 H 18 98/64 L 93 12/23/19 06:59 36.8 C 131 H 16 108/65 92 (1) GERD (gastroesophageal reflux disease) Esophagitis presence: esophagitis presence not specified Qualified Code(s): K21.9 - Gastro-esophageal reflux disease without esophagitis
[2019-12-23 14:17] LABS: Albumin Level 2.5 gm/dl (3.4-5.0); BUN Creatinine Ratio 11.1 (10-20); Creatinine Clr Calc Pharmacy 67.8 ml/min; Est GFR (Non-African American) 69.1; Magnesium 1.9 mg/dl (1.8-2.4); Potassium 4.1 mmol/L (3.5-5.1)
[2019-12-23 14:19] LABS: Basophils # (auto) 0.04 K/uL (0-0.2); Basophils % (auto) 0.4 %; Eosinophils # (auto) 0.41 K/uL (0-0.5); Eosinophils % (auto) 3.7 %; Hematocrit (blood only) 23.7 % (37-47); Hemoglobin 7.9 g/dL (12.0-16.0); Immature Granulocytes # (auto) 0.04 K/uL (0.00-0.02); Immature Granulocytes % (auto) 0.4 %; Lymphocytes # (auto) 1.91 K/uL (1.2-3.4); Mean Corpuscular Hemoglobin 26.9 pg (25-34); Mean Corpuscular Hgb Conc 33.3 g/dL (32-36); Mean Corpuscular Volume 80.6 fL (80-100); Mean Platelet Volume 11.6 fL (7.4-10.4); Monocytes % (auto) 10.7 %; Neutrophils # (auto) 7.61 K/uL (1.4-6.5); Neutrophils % (auto) 67.8 %; Platelet Count 180 K/uL (130-400); RDW Coefficient of Variation 16.4 % (11.5-14.5); RDW Standard Deviation 48.6 fL (36.4-46.3); Red Blood Count 2.94 M/uL (4.2-5.4); White Blood Count 11.21 K/uL (4.8-10.8)
[2019-12-23 14:20] LABS: Albumin Globulin Ratio 0.8 (0.9-2); Bilirubin,Total 0.7 mg/dl (0.2-1); Total Protein 5.5 gm/dl (6.4-8.2)
[2019-12-23] MEDS: ATORVASTATIN 40 MG TAB PO SCH (20:38)
[2019-12-23] MEDS: RIVAROXABAN 20 MG TAB PO SCH (20:38)
[2019-12-23] MEDS: ZOLPIDEM TARTRATE 10 MG TAB PO SCH (20:38)
[2019-12-23] MEDS ORDERED: METOPROLOL TARTRATE 1 MG/ML VIAL IV ONE (23:48)
[2019-12-24] MEDS: HYDROmorphone INJ 1 MG/ML SYRINGE IV PRN ×5 (01:12→21:26)
[2019-12-24] MEDS: OXYCODONE HCL IR 5 MG TAB (IMMEDIATE RELEASE) PO PRN ×3 (04:48→20:06)
[2019-12-24 06:18] LABS: Basophils # (auto) 0.03 K/uL (0-0.2); Basophils % (auto) 0.3 %; Eosinophils # (auto) 0.43 K/uL (0-0.5); Hematocrit (blood only) 22.9 % (37-47); Hemoglobin 7.5 g/dL (12.0-16.0); Immature Granulocytes # (auto) 0.04 K/uL (0.00-0.02); Immature Granulocytes % (auto) 0.4 %; Lymphocytes # (auto) 1.29 K/uL (1.2-3.4); Mean Corpuscular Hemoglobin 27.1 pg (25-34); Mean Corpuscular Hgb Conc 32.8 g/dL (32-36); Mean Corpuscular Volume 82.7 fL (80-100); Monocytes # (auto) 1.17 K/uL (0.11-0.59); Monocytes % (auto) 10.9 %; Neutrophils # (auto) 7.79 K/uL (1.4-6.5); Neutrophils % (auto) 72.4 %; Platelet Count 185 K/uL (130-400); RDW Coefficient of Variation 16.4 % (11.5-14.5); RDW Standard Deviation 49.4 fL (36.4-46.3); Red Blood Count 2.77 M/uL (4.2-5.4); White Blood Count 10.75 K/uL (4.8-10.8)
[2019-12-24 06:47] LABS: Polychromasia 1+
[2019-12-24 06:50] LABS: BUN Creatinine Ratio 11.5 (10-20); Calcium 8.4 mg/dl (8.5-10.1); Creatinine Clr Calc Pharmacy 77.1 ml/min; Est GFR (African American) 93.5; Est GFR (Non-African American) 80.7; Potassium 3.9 mmol/L (3.5-5.1)
[2019-12-24] MEDS: cilostazoL 100 MG TAB PO SCH ×2 (07:59→20:50)
[2019-12-24] MEDS: PREGABALIN 150 MG CAP PO SCH ×2 (08:00→20:50)
[2019-12-24] MEDS: PANCREAZE (LIPASE 10,500U) CAP PO SCH ×3 (08:00→15:53)
[2019-12-24] MEDS: PANTOprazole 40 MG TAB PO SCH (08:00)
[2019-12-24] MEDS: METOPROLOL SUCC 25MG EXT REL TAB PO SCH ×2 (08:00→09:11)
[2019-12-24] MEDS: ASPIRIN 81 MG ECTAB PO SCH (08:00)
--- NOTE | 2019-12-24 08:58 | Surgery Progress Note ---
Date of Service December 24, 2019 Assessment & Plan (1) S/P femoral-popliteal bypass surgery: Pt doing well post op. We will continue her physical therapy occupational therapy and see if she is a candidate for home or inpatient rehab. Her heart rate is better controlled now that her metoprolol is back to her usual doses. Her Xarelto has been restarted after her surgical procedure. Subjective She has no new complaints today. She still is having pain in her right leg but it is tolerable with her pain medication. Physical Exam Cardiovascular: Vessels: posterior tibial pulses present (doppler) and dorsalis pedis pulses present (doppler) Extremities: + edema (She does have edema of the right thigh secondary to her surgical procedure which has not changed.) Her heart rate is better controlled with a heart rate of 98 at this point. Skin: + incision (Incision is dry and clean.) Results & Data Vital Signs (Past 12 Hours) Vital Signs Temp Pulse Pulse Resp BP BP BP 12/24/19 08:00 36.7 C 98 H 22 115/75 12/24/19 04:00 36.6 C 81 17 105/62 12/23/19 23:52 115 H 108/68 12/23/19 23:41 88 12/23/19 23:08 36.7 C 110 H 18 108/68 Pulse Ox 12/24/19 08:00 95 12/24/19 04:00 94 12/23/19 23:52 12/23/19 23:41 12/23/19 23:08 94
[2019-12-24] MEDS: DOCUSATE SODIUM 100 MG CAP PO SCH ×2 (10:21→20:50)
[2019-12-24] MEDS: FERROUS SULFATE 325 MG TAB PO SCH ×2 (10:21→15:53)
--- NOTE | 2019-12-24 14:28 | Family Medicine Progress Note ---
Date of Service December 24, 2019 Assessment & Plan (1) Atrial fibrillation with rapid ventricular response: 59 y/o female h/o HTN, HLD, depression, atrial fibrillation w/ pacemaker, PAD consulted for rapid atrial fibrillation following bypass surgery Atrial fibrillation with rapid ventricular response - stable in sinus rhythm - continue metoprolol 25mg, rivaroxaban Pruritis - skin care and moisturizing recommended, avoidance of pressure ulcer Acute blood loss anemia - continue to monitor CBC, transfuse < 7 S/P femoral-popliteal bypass surgery - management per primary team, pain adequately controlled on present regimen per patient GERD (gastroesophageal reflux disease) - continue pantoprazole Depression - not currently under therapy, feeling well (2) Acute blood loss anemia: (3) S/P femoral-popliteal bypass surgery: (4) Depression: (5) Tobacco use disorder: (6) Dyslipidemia: (7) HTN (hypertension): Admission and Anticipated Discharge Date Admission Date: December 20, 2019 Review of Systems Constitutional: no fever, no chills and no fatigue Respiratory: no cough, no dyspnea and no wheezing Cardiovascular: no chest pain, no palpitations and no lightheadedness Gastrointestinal: no abdominal pain, no nausea, no vomiting, no constipation and no diarrhea/loose stools Integumentary: + pruritus; no rash and no lesions Neurologic: no loss of sensation, no dizziness and no headache(s) Physical Exam Constitutional: WD/WN, vitals as above no acute distress Respiratory: normal respiratory effort, lungs clear to auscultation Cardiovascular: RRR, no murmur, no edema Heart Sounds: normal S1 and normal S2 Gastrointestinal (Abdomen): normal bowel sounds, soft, nontender, no hepatosp lenomegaly Skin: no rashes, warm and dry Neurologic: PERRL, EOMI, accommodation nl, no face palsy, no dysarthria Psychiatric: A+Ox3, euthymic affect Speech: normal rate/rhythm/volume of speech Results & Data ([facility]) Vital Signs (Past 12 Hours) Vital Signs Temp Pulse Resp BP BP Pulse Ox 12/24/19 12:00 36.8 C 87 19 116/72 97 12/24/19 08:00 36.7 C 98 H 22 115/75 95 12/24/19 04:00 36.6 C 81 17 105/62 94 (1) HTN (hypertension) Hypertension type: essential hypertension Qualified Code(s): I10 - Essential (primary) hypertension
[2019-12-24] MEDS: RIVAROXABAN 20 MG TAB PO SCH (20:50)
[2019-12-24] MEDS: ZOLPIDEM TARTRATE 10 MG TAB PO SCH (20:50)
[2019-12-24] MEDS: ATORVASTATIN 40 MG TAB PO SCH (20:50)
[2019-12-25] MEDS: HYDROmorphone INJ 1 MG/ML SYRINGE IV PRN (04:21)
[2019-12-25] MEDS: OXYCODONE HCL IR 5 MG TAB (IMMEDIATE RELEASE) PO PRN ×5 (06:09→23:37)
[2019-12-25 07:16] LABS: Hematocrit (blood only) 23.7 % (37-47); Hemoglobin 7.8 g/dL (12.0-16.0)
[2019-12-25] MEDS: cilostazoL 100 MG TAB PO SCH (08:51)
[2019-12-25] MEDS: ASPIRIN 81 MG ECTAB PO SCH (08:52)
[2019-12-25] MEDS: DOCUSATE SODIUM 100 MG CAP PO SCH ×2 (08:52→21:10)
[2019-12-25] MEDS: METOPROLOL SUCC 25MG EXT REL TAB PO SCH (08:52)
[2019-12-25] MEDS: FERROUS SULFATE 325 MG TAB PO SCH ×3 (08:52→18:13)
[2019-12-25] MEDS: PANCREAZE (LIPASE 10,500U) CAP PO SCH ×4 (08:52→18:20)
[2019-12-25] MEDS: PANTOprazole 40 MG TAB PO SCH (08:52)
[2019-12-25] MEDS ORDERED: HYDROmorphone INJ 1 MG/ML SYRINGE IV PRN (08:55)
--- NOTE | 2019-12-25 08:57 | Surgery Progress Note ---
Date of Service December 25, 2019 Assessment & Plan (1) S/P femoral-popliteal bypass surgery: Pt doing well post op. We will continue her physical therapy occupational therapy Her Xarelto has been restarted after her surgical procedure. Again she has a rapid response with a heart rate this morning. Consult was obtained with Dr. Powell and her metal sash setter. Subjective She has no new complaints today. She still is having pain in her right leg. She is agreeable to trying to take her off the Dilaudid and switch her to oral pain medication at this time. Physical Exam Cardiovascular: Rate/Rhythm: + irregularly irregular Vessels: posterior tibial pulses present (doppler) and dorsalis pedis pulses present (doppler) Extremities: + edema (She does have edema of the right thigh secondary to her surgical procedure which has not changed.) Heart rate has been in the 120s 150s for the last few hours. Skin: + incision (Incision is dry and clean.) Results & Data Vital Signs (Past 12 Hours) Vital Signs Temp Pulse Resp BP BP BP Pulse Ox 12/25/19 08:00 36.8 C 98 H 22 107/64 94 12/25/19 04:00 36.6 C 122 H 20 108/73 95 12/25/19 00:33 36.7 C 114 H 16 117/75 94 12/24/19 23:59 Pulse Ox 12/25/19 08:00 12/25/19 04:00 12/25/19 00:33 12/24/19 23:59 95
[2019-12-25] MEDS: PREGABALIN 150 MG CAP PO SCH ×2 (09:02→21:14)
--- NOTE | 2019-12-25 09:49 | Cardiology Consultation ---
Date of Consultation Patient was admitted for right femoropopliteal due to progressive symptoms of claudication. In the postoperative period she has had intermittent paroxysmal atrial fibrillation. She has had this before. She has any chest pain just pressure chest heaviness she notes some mild lightheadedness she denies any shortness of breath and has no shortness of b reath talking in sentences. She has any palpitations or fluttering or feeling her heart racing. Her right leg is understandably edematous postoperatively. She has any presyncope syncope she denies any falls she does have a moderate amount of discomfort at her surgical site with some mild bloody drainage. She denies any orthopnea denies any dark stools or black stools. She does note that she is up to go to the bathroom every couple hours at night. The rest of a complete review of systems otherwise negative December 25, 2019 Assessment & Plan (1) S/P femoral-popliteal bypass surgery: Postop and followed by Dr. Maya of vascular surgery 2. New onset atrial fibrillation with a rapid ventricular response with a chads 2 Vasc score of 3 3. Status post [employer] dual-chamber pacemaker 08/16/2019 MRI compatible secondary to recurrent syncopal episodes and a high degree AV block 4. Hypertension 5. Chronic tobacco abuse 6 peripheral arterial disease status post left BKA 7. Postoperative anemia I recommend increasing her metoprolol to 25 mg 4 times daily with a hold for systolic blood pressure less than 95 mmHg. With her pacemaker we do not need to worry about bradycardia. Hopefully this will slow her rates down and also reduce her catecholamine state. We know in 2018 that she had normal biventricular function. She is anticoagulated with Xarelto and on an antiplatelet agent with aspirin I would stop her Pletal that she should not be on triple therapy. If her rates remain difficult to control Cardizem drip can be used. Her right leg is relatively taut postoperatively if her blood pressure allows a small dose of furosemide may benefit her. She has had a history of hyponatremia in the past we will have to closely watch for this if we use any diuretics. We will continue to follow her with you History of Present Illness Attending Physician: Payam Maya MD Allergies Allergy/AdvReac Type Severity Reaction Status Date / Time acetaminophen Allergy Severe LIVER Verified 12/20/19 07:07 DAMAGE-DUE TO FAILURE adhesive Allergy Severe SEVERE Verified 12/20/19 07:07 SKIN IRRITATION amoxicillin Allergy Severe LIVER Verified 12/20/19 07:07 FAILURE clavulanic acid Allergy Severe LIVER Verified 12/20/19 07:07 FAILURE guanfacine Allergy Intermediate BP PROBLEMS Verified 12/20/19 07:07 nifedipine Allergy Intermediate BP PROBLEMS Verified 12/20/19 07:07 Home Medications Home Medications Medication Instructions Recorded Confirmed Type pantoprazole [Protonix] 40 mg PO QAM 07/18/18 12/20/19 History zolpidem [Ambien] 10 mg PO HS 07/18/18 12/20/19 History rivaroxaban 20 mg tablet 20 mg PO QPM 12/20/18 12/20/19 History calcium carbonate 200 mg calcium 200 mg PO DAILY PRN tab 05/17/19 12/20/19 History (500 mg) chewable tablet ondansetron HCl 4 mg tablet 8 mg PO DAILY PRN tab 05/17/19 12/20/19 History atorvastatin 80 mg tablet 80 mg PO DAILY tab 06/06/19 12/20/19 History pregabalin 150 mg capsule 150 mg PO BID 06/06/19 12/20/19 History Creon 1 cap PO TID 07/31/19 12/20/19 History triamcinolone acetonide 0.1 % 1 appln TOP DAILY PRN 10/09/19 12/20/19 History topical cream cilostazol 100 mg PO BID 12/15/19 12/20/19 History aspirin 81 mg PO QAM 12/19/19 12/20/19 History metoprolol succinate 25 mg PO QAM 12/19/19 12/20/19 History Patient History Medical History Anxiety and depression Arthritis DVT (deep venous thrombosis) OVER 40 YEARS AGO Dyslipidemia GERD (gastroesophageal reflux disease) HTN (hypertension) Hx of migraines Hx of pancreatitis Chronic Hyponatremia Chronic issue- follows with nephrology Neuropathy Pacemaker IMPLANTED 07/2019 (DR. ZARATE)- mNectar >WILL BRING CARD Paroxysmal atrial fibrillation REASON FOR XARELTO PVD (peripheral vascular disease) Sinus node dysfunction S/p pacemaker Surgical History H/O vascular surgery "bilateral femoral endarterectomy with iliac stent 10/02/2016 Dr. Dharmesh Omalley, [facility]" History of amputation REVISION OF AMPUTATION LLE History of appendectomy History of colonoscopy History of tooth extraction Status post below knee amputation of left lower extremity Status post ORIF of fracture of ankle "12/18/16- ORIF closed displaced trimalleolar left ankle fracture; Dr. Fischer" Family History Unknown No problems noted. 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 ; Do You Dip or Chew Tobacco: No ; Smoking End Date: 10 CIG DAILY ; Second Hand Exposure: Yes ; Tobacco Cessation Education Requested by Patient: No Hx Alcohol Use: Yes Alcohol type: beer Hx Substance Use: No Results & Data ([facility]) Vital Signs (Past 12 Hours) Vital Signs Temp Pulse Resp BP BP BP Pulse Ox 12/25/19 08:00 36.8 C 98 H 22 107/64 94 12/25/19 04:00 36.6 C 122 H 20 108/73 95 12/25/19 00:33 36.7 C 114 H 16 117/75 94 12/24/19 23:59 Pulse Ox 12/25/19 08:00 12/25/19 04:00 12/25/19 00:33 12/24/19 23:59 95 she is awake alert and oriented x3 Her carotid upstrokes were difficult to palpate given her tachycardia. Her jugular venous pressure cannot be assessed there were no carotid bruits Lungs: Globally decreased breath sounds no rales rhonchi or wheezing Heart: irregular rate and rhythm (tachycardia) no appreciable murmurs or rubs Abdomen: Soft nontender distended positive bowel sounds Extremity: BKA on the left status post femoropopliteal on the right which is moderately edematous Psychiatric her affect appeared appropriate
[2019-12-25] MEDS: METOPROLOL TARTRATE 25 MG TAB PO SCH ×3 (11:40→21:14)
--- NOTE | 2019-12-25 15:55 | Hospitalist Progress Note ---
Date of Service December 25, 2019 Assessment & Plan (1) Atrial fibrillation with rapid ventricular response: Known paroxysmal atrial fibrillation. Back in a. fib with RVR this morning therefore consulted her manager e learning Dr Zarate. Appreciate management of this with increased metoprolol dosing Anticoagulated with Xarelto. (2) Acute blood loss anemia: Will defer transfusion threshold to her primary vascular team. s/p packed RBCs x3. Appears relatively stable since 12/22. Coags WNL on admission. (3) S/P femoral-popliteal bypass surgery: PAD - continue atorvastatin. ,Will defer whether triple ASA, cilostazol and Xarelto therapy warranted as per primary vascular team. management per primary team with pain medications (4) Tobacco use disorder: (5) Dyslipidemia: Continue atorvastatin 80mg PO daily. (6) HTN (hypertension): Relative low BP without symptoms. Metoprolol as above with hold parameters. (7) Insomnia: Continue chronic zolpidem 10mg HS (8) Constipation: No BM since Wednesday last week but not unsual for her. She declines an increase in her laxatives at this time and reports her BM always come back when she starts moving. Admission and Anticipated Discharge Date Admission Date: December 20, 2019 Subjective Patient reports continuing pain in her right leg/foot but is much better than prior to the operation. She reports willingness to start with PT as she feels if will start improving with more walking. Concerned about bleeding from her wound. while on cilostazol, ASA and Xarelto. Review of Systems Review of Systems: All systems reviewed & are unremarkable except as noted in HPI & below Physical Exam Constitutional: WD/WN, vitals as above no acute distress Respiratory: normal respiratory effort, lungs clear to auscultation Cardiovascular: Rate/Rhythm: + tachycardic and + irregularly irregular Heart Sounds: no murmur Extremities: normal capillary refill and + pedal edema (RLE 2+); no calf tenderness Gastrointestinal (Abdomen): Inspection/Auscultation: normal bowel sounds Percussion/Palpation: abdomen soft; abdomen nontender, no guarding and abdomen not rigid Skin: no rashes, warm and dry Neurologic: moves all extremities (LLE amputation noted, well healed) and awake Psychiatric: A+Ox3, euthymic affect Results & Data Results & Data ([place]) Vital Signs (Past 12 Hours) Vital Signs Temp Pulse Pulse Resp BP BP Pulse Ox 12/25/19 15:25 37.6 C H 73 17 97/57 L 95 12/25/19 11:19 36.2 C L 122 H 20 99/62 L 95 12/25/19 08:40 141 H 12/25/19 08:00 36.8 C 98 H 22 107/64 94 12/25/19 04:00 36.6 C 122 H 20 108/73 95 PG Care Time/CCT Total # of Minutes Spent Total Time Spent with Patient: Total time spent is greater than 50% in coordination of care (as documented) at patient's floor/unit and/or counseling patient: Coding Level of Care Code 15233 Subseq Hosp Care Lvl 2 Diagnoses Atrial fibrillation with rapid ventricular response I48.91 Acute blood loss anemia D62 S/P femoral-popliteal bypass surgery Z95.828 Tobacco use disorder F17.200 Dyslipidemia E78.5 HTN (hypertension) I10 Hypertension type: essential hypertension Insomnia G47.00 Insomnia type: unspecified Constipation K59.03 Constipation type: drug induced constipation (1) HTN (hypertension) Hypertension type: essential hypertension Qualified Code(s): I10 - Essential (primary) hypertension (2) Insomnia Insomnia type: unspecified Qualified Code(s): G47.00 - Insomnia, unspecified (3) Constipation Constipation type: drug induced constipation Qualified Code(s): K59.03 - Drug induced constipation
[2019-12-25] MEDS: ATORVASTATIN 40 MG TAB PO SCH (21:10)
[2019-12-25] MEDS: RIVAROXABAN 20 MG TAB PO SCH (21:11)
[2019-12-25] MEDS: ZOLPIDEM TARTRATE 10 MG TAB PO SCH (21:15)
[2019-12-26 07:06] LABS: Hematocrit (blood only) 24.1 % (37-47); Hemoglobin 7.9 g/dL (12.0-16.0)
[2019-12-26 07:32] LABS: BUN Creatinine Ratio 9.7 (10-20); Calcium 8.2 mg/dl (8.5-10.1); Creatinine Clr Calc Pharmacy 75.4 ml/min; Est GFR (African American) 92.1; Est GFR (Non-African American) 79.5; Potassium 3.9 mmol/L (3.5-5.1)
[2019-12-26] MEDS: FERROUS SULFATE 325 MG TAB PO SCH ×3 (07:58→15:56)
[2019-12-26] MEDS: PANCREAZE (LIPASE 10,500U) CAP PO SCH ×3 (07:58→15:56)
[2019-12-26] MEDS: DOCUSATE SODIUM 100 MG CAP PO SCH ×2 (07:59→20:19)
[2019-12-26] MEDS: METOPROLOL TARTRATE 25 MG TAB PO SCH ×4 (08:00→20:17)
[2019-12-26] MEDS: PANTOprazole 40 MG TAB PO SCH (08:00)
[2019-12-26] MEDS: ASPIRIN 81 MG ECTAB PO SCH (08:00)
[2019-12-26] MEDS: OXYCODONE HCL IR 5 MG TAB (IMMEDIATE RELEASE) PO PRN ×4 (08:11→23:14)
[2019-12-26] MEDS: PREGABALIN 150 MG CAP PO SCH ×2 (08:11→20:17)
[2019-12-26] MEDS ORDERED: IRON SUCROSE 200 MG in 0.9 % SODIUM CHLORIDE 100 ML IV ONE ×2 (08:15→12:30)
--- NOTE | 2019-12-26 09:42 | Cardiology Progress Note ---
Date of Service December 26, 2019 Assessment & Plan (1) S/P femoral-popliteal bypass surgery: Postop and followed by Dr. Maya of vascular surgery 2. New onset atrial fibrillation with a rapid ventricular response with a chads 2 Vasc score of 3 3. Status post Medtronic dual-chamber pacemaker 08/16/2019 MRI compatible secondary to recurrent syncopal episodes and a high degree AV block 4. Hypertension 5. Chronic tobacco abuse 6 peripheral arterial disease status post left BKA 7. Postoperative anemia 8. Normal LV function and 2017 She did convert to sinus rhythm overnight. She is atrially paced this morning and ventricularly sensed. She feels no different in sinus rhythm versus in atrial fibrillation. I would continue with her metoprolol 25 mg p.o. every 6 hours. She is on anticoagulation with a novel oral anticoagulant. Depending on her blood pressure we can reduce the dose of metoprolol if necessary in order to avoid any lightheadedness or dizziness or if there is concern of low blood pressure leading to hypoperfusion of her graft. Clinically she is not having any anginal symptoms nor does she appear to be in heart failure. This was discussed with the primary service at the bedside. If okay with the primary service she can go to the floor. Subjective She feels better this morning. She denies any chest pain chest pressure or chest heaviness. She has any shortness of breath. She denies any palpitations or fluttering. She has right-sided leg discomfort as expected. The swelling appears better than yesterday. Her appetite is so-so. She denies any bleeding she does have some bruising of from the tunneling of her surgical site. She has any dark stools or black stools. Overall she looks relatively stable Results & Data Vital Signs (Past 12 Hours) Vital Signs Temp Pulse Resp BP Pulse Ox 12/26/19 04:00 36.6 C 83 17 107/64 91 12/26/19 00:00 36.5 C 98 H 18 98/63 L 95 she is awake alert and oriented x3 Her carotid upstrokes were mildly diminished; her jugular venous pressure cannot be assessed there were no carotid bruits Lungs: Globally decreased breath sounds no rales rhonchi or wheezing Heart: Regular rate and rhythm no appreciable murmurs or rubs Abdomen: Soft nontender distended positive bowel sounds Extremity: BKA on the left; status post femoropopliteal on the right which is mild to moderately edematous Psychiatric her affect appeared appropriate
--- NOTE | 2019-12-26 09:42 | Surgery Progress Note ---
Date of Service December 26, 2019 Assessment & Plan (1) S/P femoral-popliteal bypass surgery: Pt doing well post op. We will continue her physical therapy occupational therapy She is now in a regular rhythm since 3:00 this morning. Most likely will transfer back to the floor today. Subjective Patient reports continuing pain in her right leg but it is somewhat improved today. She is undergoing physical therapy. Physical Exam Cardiovascular: Rate/Rhythm: regular rate and regular rhythm Vessels: posterior tibial pulses present (doppler) and dorsalis pedis pulses present (doppler) Extremities: + edema (She does have edema of the right thigh secondary to her surgical procedure which has not changed.) Skin: + incision (Incision is dry and clean.) Results & Data Vital Signs (Past 12 Hours) Vital Signs Temp Pulse Resp BP Pulse Ox 12/26/19 04:00 36.6 C 83 17 107/64 91 12/26/19 00:00 36.5 C 98 H 18 98/63 L 95
--- NOTE | 2019-12-26 16:23 | Hospitalist Progress Note ---
Date of Service December 26, 2019 Assessment & Plan (1) Atrial fibrillation with rapid ventricular response: Known paroxysmal atrial fibrillation. Converted to NSR around 2am this morning with increased doses of metoprolol. Appreciate management of this with increased metoprolol dosing. Will defer switching back to her usual metoprolol succinate to Dr Zarate. Anticoagulated with Xarelto. (2) Acute blood loss anemia: Will defer transfusion threshold to her primary vascular team. s/p packed RBCs x3. Appears relatively stable since 12/22. Coags WNL on admission. Iron deficit approximately 1000mg. Discussed adv. diadv IV iron with the patient and she elected to get IV iron at this time. Will give Venofer 200mg today and tomorrow. Advise further doses to be set up by PCP on discharge. (3) S/P femoral-popliteal bypass surgery: PAD - continue atorvastatin. ,Will defer whether triple ASA, cilostazol and Xarelto therapy warranted as per primary vascular team. management per primary team with pain medications (4) Tobacco use disorder: Cesstion advised (5) Dyslipidemia: Continue atorvastatin 80mg PO daily. (6) HTN (hypertension): Relative low BP without symptoms. Metoprolol as above with hold parameters. (7) Insomnia: Continue chronic zolpidem 10mg HS (8) Constipation: No BM since Wednesday last week but not unusual for her. She continues to decline further laxatives as she feels her bowel movements will get much better when she gets home and has a cup of coffee. Suggest taking MiraLAX at home if this is unsuccessful. No clinical signs of symptoms of bowel obstruction. Admission and Anticipated Discharge Date Admission Date: December 20, 2019 From medical perspective she can be discharged once primary vascular team and Dr Zarate have signed off. Subjective Patietn reports generally doing well. No chest pain, lightheadedness, shortness of breath. She reports wound seeping a small amount but has been less painful. Planning on going back home on discharge. She continues to have constipation and has not had a bowel movement since hospitalization but no abdominal pain, nausea or vomiting and she feels she will have one as soon as she gets back home. Discussed advantages and disadvantages of iron transfusions versus oral iron supplementation especially in light of chronic constipation issues and she wishes to try the IV iron at this time. Review of Systems Review of Systems: All systems reviewed & are unremarkable except as noted in HPI & below Physical Exam Constitutional: WD/WN, vitals as above + obese; no acute distress Respiratory: normal respiratory effort, lungs clear to auscultation Cardiovascular: Rate/Rhythm: regular rate and regular rhythm Heart Sounds: no murmur Extremities: normal capillary refill and + pedal edema (RLE 2+); no calf tenderness Gastrointestinal (Abdomen): Inspection/Auscultation: normal bowel sounds Percussion/Palpation: abdomen soft; abdomen nontender, no guarding and abdomen not rigid Skin: no rashes, warm and dry Surgical wound with neto, clean, dry and intact Neurologic: moves all extremities (LLE amputation noted, well healed) and awake Psychiatric: A+Ox3, euthymic affect Results & Data Results & Data ([facility]) Vital Signs (Past 12 Hours) Vital Signs Temp Pulse Pulse Pulse Resp BP BP 12/26/19 15:37 37.1 C 78 18 111/71 12/26/19 11:35 36.8 C 78 16 111/69 12/26/19 10:53 87 12/26/19 08:00 36.6 C 82 19 123/78 Pulse Ox Pulse Ox 12/26/19 15:37 98 12/26/19 11:35 98 12/26/19 10:53 12/26/19 08:00 98 98 PG Care Time/CCT Total # of Minutes Spent Total Time Spent with Patient: Total time spent is greater than 50% in coordination of care (as documented) at patient's floor/unit and/or counseling patient: Coding Level of Care Code 08791 Subseq Hosp Care Lvl 3 Diagnoses Atrial fibrillation with rapid ventricular response I48.91 Acute blood loss anemia D62 S/P femoral-popliteal bypass surgery Z95.828 Tobacco use disorder F17.200 Dyslipidemia E78.5 HTN (hypertension) I10 Hypertension type: essential hypertension Insomnia G47.00 Insomnia type: unspecified Constipation K59.03 Constipation type: drug induced constipation (1) Insomnia Insomnia type: unspecified Qualified Code(s): G47.00 - Insomnia, unspecified (2) HTN (hypertension) Hypertension type: essential hypertension Qualified Code(s): I10 - Essential (primary) hypertension (3) Constipation Constipation type: drug induced constipation Qualified Code(s): K59.03 - Drug induced constipation
[2019-12-26] MEDS: ZOLPIDEM TARTRATE 10 MG TAB PO SCH (20:17)
[2019-12-26] MEDS: RIVAROXABAN 20 MG TAB PO SCH (20:19)
[2019-12-26] MEDS: ATORVASTATIN 40 MG TAB PO SCH (20:19)
[2019-12-27] MEDS: OXYCODONE HCL IR 5 MG TAB (IMMEDIATE RELEASE) PO PRN ×5 (03:54→20:58)
[2019-12-27 06:18] LABS: Hematocrit (blood only) 24.8 % (37-47); Hemoglobin 8.1 g/dL (12.0-16.0)
[2019-12-27] MEDS: PANTOprazole 40 MG TAB PO SCH (07:43)
[2019-12-27] MEDS: PANCREAZE (LIPASE 10,500U) CAP PO SCH ×3 (07:44→16:24)
[2019-12-27] MEDS ORDERED: IRON SUCROSE 200 MG in 0.9 % SODIUM CHLORIDE 100 ML IV SCH (07:45)
[2019-12-27] MEDS: DOCUSATE SODIUM 100 MG CAP PO SCH ×2 (07:45→20:56)
[2019-12-27] MEDS: ASPIRIN 81 MG ECTAB PO SCH (07:45)
[2019-12-27] MEDS: FERROUS SULFATE 325 MG TAB PO SCH ×3 (07:45→16:25)
[2019-12-27] MEDS: METOPROLOL TARTRATE 25 MG TAB PO SCH (07:46)
[2019-12-27] MEDS: PREGABALIN 150 MG CAP PO SCH ×2 (08:05→20:56)
--- NOTE | 2019-12-27 08:53 | Cardiology Progress Note ---
Date of Service December 27, 2019 Subjective stable, no palps, leg pain, no cp or chest pressure Results & Data Vital Signs (Past 12 Hours) Vital Signs Temp Pulse Pulse Resp BP Pulse Ox 12/27/19 06:54 36.8 C 91 H 18 132/85 96 12/27/19 02:40 36.8 C 105 H 20 112/74 95 12/27/19 01:34 79 12/26/19 23:15 36.7 C 79 20 129/79 97 Assessment & Plan (1) S/P femoral-popliteal bypass surgery: Postop and followed by Dr. Maya of vascular surgery 2. New onset atrial fibrillation with a rapid ventricular response with a chads 2 Vasc score of 3 3. Status post Medtronic dual-chamber pacemaker 08/16/2019 MRI compatible secondary to recurrent syncopal episodes and a high degree AV block 4. Hypertension 5. Chronic tobacco abuse 6 peripheral arterial disease status post left BKA 7. Postoperative anemia 8. Normal LV function and 2017 changed metoprolol to 50mg BID Home on xarelto and ASA; no need for pletal Regular follow up as scheduled with me smoking cessation aggressive risk factor modification
[2019-12-27] MEDS ORDERED: METOPROLOL TARTRATE 25 MG TAB PO ONE (09:00)
--- NOTE | 2019-12-27 13:24 | Surgery Progress Note ---
Date of Service December 27, 2019 Assessment & Plan (1) S/P femoral-popliteal bypass surgery: Pt doing well post op. Will plan on d/c tomorrow with home health. Subjective Patient doing well. She is getting back and forth to the bathroom without too much difficulty. Physical Exam Cardiovascular: Rate/Rhythm: regular rate and regular rhythm Vessels: posterior tibial pulses present (doppler) and dorsalis pedis pulses present (doppler) Extremities: + edema Skin: + incision (Incision is dry and clean.) Results & Data Vital Signs (Past 12 Hours) Vital Signs Temp Pulse Pulse Resp BP Pulse Ox 12/27/19 11:49 36.5 C 78 20 131/75 100 12/27/19 06:54 36.8 C 91 H 18 132/85 96 12/27/19 02:40 36.8 C 105 H 20 112/74 95 12/27/19 01:34 79
--- NOTE | 2019-12-27 13:41 | Hospitalist Progress Note ---
Date of Service December 27, 2019 Assessment & Plan (1) Atrial fibrillation with rapid ventricular response: Known paroxysmal atrial fibrillation. Appreciate management of this with increased metoprolol dosing. Switched back to BID dosing as per Dr Zarate. Anticoagulated with Xarelto. (2) Acute blood loss anemia: Will defer transfusion threshold to her primary vascular team. s/p packed RBCs x3. Appears relatively stable since 12/22. Coags WNL on adm ission. Iron deficit approximately 1000mg. Given current climate of [place] [id number] benefit of outpatient IV Venofer likely smaller than risk. Therefore will give another vonfer dose today and tomorrow then can be discharged on iron PO supplementation as per vascular surgery alone. She will have had a total of 600mg if discharged tomorrow. (3) S/P femoral-popliteal bypass surgery: PAD - continue atorvastatin. ,Will defer whether triple ASA, cilostazol and Xarelto therapy warranted as per primary vascular team. management per primary team with pain medications (4) Tobacco use disorder: Cessation advised. Failed outpatient Chantix due to side effects. Discussed calling smoke stop PA line for further help. (5) Dyslipidemia: Continue atorvastatin 80mg PO daily. (6) HTN (hypertension): Relative low BP without symptoms. Metoprolol as above with hold parameters. (7) Insomnia: Continue chronic zolpidem 10mg HS (8) Constipation: Reports good effect with lactulose at home and accepts a dose here along with MiraLAX Admission and Anticipated Discharge Date Admission Date: December 20, 2019 Ok to discharge tomorrow as per vascular surgery team note, after IV Venofer given in AM. Anticipated date of discharge: 12/28/19 Subjective Feeling well. Still with significant lower extremity swelling. No chest pain, dizziness, light headedness. Review of Systems Review of Systems: All systems reviewed & are unremarkable except as noted in HPI & below Physical Exam Constitutional: WD/WN, vitals as above + obese; no acute distress Respiratory: normal respiratory effort, lungs clear to auscultation Cardiovascular: Rate/Rhythm: regular rate and regular rhythm Heart Sounds: no murmur Extremities: normal capillary refill and + pedal edema (RLE 2+); no calf tenderness Gastrointestinal (Abdomen): Inspection/Auscultation: normal bowel sounds Percussion/Palpation: abdomen soft; abdomen nontender, no guarding and abdomen not rigid Skin: no rashes, warm and dry right lower extremity wound clean, dry, intact. Neurologic: moves all extremities (LLE amputation noted, well healed) and awake Psychiatric: A+Ox3, euthymic affect Results & Data Results & Data ([facility]) Vital Signs (Past 12 Hours) Vital Signs Temp Pulse Resp BP Pulse Ox 12/27/19 11:49 36.5 C 78 20 131/75 100 12/27/19 06:54 36.8 C 91 H 18 132/85 96 12/27/19 02:40 36.8 C 105 H 20 112/74 95 PG Care Time/CCT Total # of Minutes Spent Total Time Spent with Patient: Total time spent is greater than 50% in coordination of care (as documented) at patient's floor/unit and/or counseling patient: Coding Level of Care Code 90715 Subseq Hosp Care Lvl 2 Diagnoses Atrial fibrillation with rapid ventricular response I48.91 Acute blood loss anemia D62 S/P femoral-popliteal bypass surgery Z95.828 Tobacco use disorder F17.200 Dyslipidemia E78.5 HTN (hypertension) I10 Hypertension type: essential hypertension Insomnia G47.00 Insomnia type: unspecified Constipation K59.03 Constipation type: drug induced constipation (1) Insomnia Insomnia type: unspecified Qualified Code(s): G47.00 - Insomnia, unspecified (2) HTN (hypertension) Hypertension type: essential hypertension Qualified Code(s): I10 - Essential (primary) hypertension (3) Constipation Constipation type: drug induced constipation Qualified Code(s): K59.03 - Drug induced constipation
[2019-12-27] MEDS ORDERED: POLYETHYLENE (MIRALAX) 17 GM PACK PO ONE (15:45)
[2019-12-27] MEDS ORDERED: LACTULOSE SYRUP 20 GM/30 ML UDC PO ONE (15:45)
[2019-12-27] MEDS: ZOLPIDEM TARTRATE 10 MG TAB PO SCH (20:56)
[2019-12-27] MEDS: METOPROLOL TARTRATE 50 MG TAB PO SCH (20:57)
[2019-12-27] MEDS: RIVAROXABAN 20 MG TAB PO SCH (20:57)
[2019-12-27] MEDS: ATORVASTATIN 40 MG TAB PO SCH (20:58)
[2019-12-28] MEDS: OXYCODONE HCL IR 5 MG TAB (IMMEDIATE RELEASE) PO PRN ×4 (00:34→12:09)
[2019-12-28] MEDS: FERROUS SULFATE 325 MG TAB PO SCH ×2 (07:44→12:01)
[2019-12-28] MEDS: PANTOprazole 40 MG TAB PO SCH (07:44)
[2019-12-28] MEDS: METOPROLOL TARTRATE 50 MG TAB PO SCH (07:44)
[2019-12-28] MEDS: PANCREAZE (LIPASE 10,500U) CAP PO SCH ×2 (07:45→12:01)
[2019-12-28] MEDS: ASPIRIN 81 MG ECTAB PO SCH (07:45)
[2019-12-28] MEDS: DOCUSATE SODIUM 100 MG CAP PO SCH (07:46)
[2019-12-28] MEDS ORDERED: IRON SUCROSE 200 MG in 0.9 % SODIUM CHLORIDE 100 ML IV SCH (08:00)
[2019-12-28] MEDS: PREGABALIN 150 MG CAP PO SCH (09:09)
[2019-12-28] MEDS: ONDANSETRON 4 MG OD TAB PO PRN (09:10)
--- NOTE | 2019-12-28 10:51 | Hospitalist Progress Note ---
Date of Service December 28, 2019 Assessment & Plan (1) S/P femoral-popliteal bypass surgery: PAD - continue atorvastatin. Continue ASA and Xarelto. Cilostazol discontinued as recommended by cardiology. Pain management primary vascular team (2) Atrial fibrillation with rapid ventricular response: Known paroxysmal atrial fibrillation. Appreciate cardiology management of this with increased metoprolol dosing. Prescribed metoprolol tartrate 50mg PO BID and advised patient to make sure taking tartrate rather than succinate and educated on difference between these. Anticoagulated with Xarelto. (3) Acute blood loss anemia: s/p packed RBCs x3. Appears relatively stable since 12/22. Coags WNL on admission. Iron deficit approximately 1000mg. Given current climate of [facility]- benefit of outpatient IV Venofer likely smaller than risk. Total 600mg Venofer given while admitted (200mg given this morning). Can continue on ferrous sulphate 325mg TID as prescribed her by vascular surgery but warned patient about constipation and black stool. (4) Tobacco use disorder: Cessation advised. Discussed calling smoke stop PA line for further help. Wellbutrin SR recommended as she has not previous tried this, discussed benefits and risks and she is willing to try this; prescription given on discharge with first dose here. (5) Dyslipidemia: Continue atorvastatin 80mg PO daily. (6) HTN (hypertension): Relative low BP without symptoms. Metoprolol as above with hold parameters. (7) Insomnia: Continue chronic zolpidem 10mg HS (8) Constipation: Relieved with lactulose given yesterday. Admission and Anticipated Discharge Date Admission Date: December 20, 2019 Patient is medically stable for discharge from our perspective. Added medicine consult to discharge instructions. Anticipated date of discharge: 12/28/19 Subjective Patient doing well. BM this morning with lactulose given yesterday. Pain under control but having difficulty with swelling making it difficult to move around. Planning on discharge today home per vascular surgery. Emphasized importance of stopping smoking and she was interested in starting Wellbutrin after discussion of benefits and risks of this medication. Discussed care with Octavia Leigh. Review of Systems Review of Systems: All systems reviewed & are unremarkable except as noted in HPI & below Physical Exam Constitutional: well developed and + obese; no acute distress Respiratory: normal respiratory effort, lungs clear to auscultation Cardiovascular: Rate/Rhythm: regular rate and regular rhythm Heart Sounds: no murmur Extremities: normal capillary refill and + pedal edema (RLE 2+); no calf tenderness Gastrointestinal (Abdomen): Inspection/Auscultation: normal bowel sounds Percussion/Palpation: abdomen soft; abdomen nontender, no guarding and abdomen not rigid Musculoskeletal: continued post surgical swelling of b/l lower extremities. Pitting edema 2+ to thighs. Skin: no rashes, warm and dry Neurologic: moves all extremities (LLE amputation noted, well healed) and awake Psychiatric: A+Ox3, euthymic affect Results & Data Results & Data ([facility]) Vital Signs (Past 12 Hours) Vital Signs Temp Pulse Pulse Resp BP Pulse Ox 12/28/19 07:30 36.8 C 75 16 111/74 98 12/28/19 03:42 91 H 12/28/19 02:53 36.8 C 79 16 112/71 93 12/27/19 23:09 37.3 C 66 18 109/67 94 PG Care Time/CCT Total # of Minutes Spent Total Time Spent with Patient: Total time spent is greater than 50% in coordination of care (as documented) at patient's floor/unit and/or counseling patient: Coding Level of Care Code 22796 Subseq Hosp Care Lvl 2 Diagnoses S/P femoral-popliteal bypass surgery Z95.828 Atrial fibrillation with rapid ventricular response I48.91 Acute blood loss anemia D62 Tobacco use disorder F17.200 Dyslipidemia E78.5 HTN (hypertension) I10 Hypertension type: essential hypertension Insomnia G47.00 Insomnia type: unspecified Constipation K59.03 Constipation type: drug induced constipation (1) Insomnia Insomnia type: unspecified Qualified Code(s): G47.00 - Insomnia, unspecified (2) HTN (hypertension) Hypertension type: essential hypertension Qualified Code(s): I10 - Essential (primary) hypertension (3) Constipation Constipation type: drug induced constipation Qualified Code(s): K59.03 - Drug induced constipation
[2019-12-28] MEDS ORDERED: BuPROPion SR 150 MG TABCR PO ONE (11:15)
--- NOTE | 2019-12-28 11:18 | Surgery Progress Note ---
Date of Service December 28, 2019 Assessment & Plan (1) S/P femoral-popliteal bypass surgery: Pt doing well post op. D/C home today.. Subjective 59 yo f 1 week s/p RLE fem-pop prosthetic BPG, seen in f/u. Pt admits RLE pain in incisions and edema, but no worse than yesterday. Pt states feeling overall well, and wishes to go home. Review of Systems Review of Systems: All systems reviewed & are unremarkable except as noted in HPI & below Physical Exam Constitutional: WD/WN, vitals as above Respiratory: normal respiratory effort, lungs clear to auscultation Cardiovascular: Rate/Rhythm: + irregularly irregular Vessels: posterior tibial pulses present (RLE with doppler) and dorsalis pedis pulses present (RLE with doppler, LLE BKA) Extremities: normal capillary refill and + edema (mild local) Gastrointestinal (Abdomen): normal bowel sounds, soft, nontender, no hepatosplenomegaly Skin: no rashes, warm and dry + incision (RLE incision C/D/I with neto. minimal bleeding from distal incision.) Psychiatric: A+Ox3, euthymic affect Results & Data Vital Signs (Past 12 Hours) Vital Signs Temp Pulse Pulse Resp BP Pulse Ox 12/28/19 07:30 36.8 C 75 16 111/74 98 12/28/19 03:42 91 H 12/28/19 02:53 36.8 C 79 16 112/71 93
--- NOTE | 2019-12-28 11:21 | Discharge Summary ---
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 I have discussed the risks options and benefits of the procedure with the patient. The patient understands the risks options and benefits and agrees to the procedure. History of Present Illness Chief Complaint: Right leg pain Primary Care Provider: Janie Back PA-C Ms. Garcia is a 59 yo female who has a left leg amputation from the past. She has had discomfort in her right leg which is gotten worse. She does have numb ness and tingling at times worse when she elevates it. She also has dependent rubor according to her. She is an amputee of the left lower extremity. Allergies Admission Exam Per Admitting Provider Constitutional: well developed and well nourished; no acute distress Respiratory: normal respiratory effort, lungs clear to auscultation Cardiovascular: RRR, no murmur, no edema Vessels: femoral pulses present (normal on right, barely palpable on left); + posterior tibial pulses abnormal and + dorsalis pedis pulses abnormal Gastrointestinal (Abdomen): normal bowel sounds, soft, nontender, no hepatosplenomegaly Neurologic: normal sensation to monofilament, moves all extremities and awake Psychiatric: Orientation: alert and oriented x 3 Principal Diagnosis 1. s/p RLE fem-pop prosthetic bypass and R common fem endarterectomy with bovine patch 2. Severe RLE PAD with rest pain Discharge Exam Constitutional WD/WN, vitals as above Respiratory normal respiratory effort, lungs clear to auscultation Cardiovascular Rate/Rhythm: + irregularly irregular Vessels: posterior tibial pulses present (RLE with doppler) and dorsalis pedis pulses present (RLE with doppler, LLE BKA) Extremities: normal capillary refill and + edema (mild local) Gastrointestinal (Abdomen) normal bowel sounds, soft, nontender, no hepatosplenomegaly Skin no rashes, warm and dry + incision (RLE incision C/D/I with neto. minimal bleeding from distal incision.) Psychiatric A+Ox3, euthymic affect Discharge Data Allergies Allergy/AdvReac Type Severity Reaction Status Date / Time acetaminophen Allergy Severe LIVER Verified 12/20/19 07:07 DAMAGE-DUE TO FAILURE adhesive Allergy Severe SEVERE Verified 12/20/19 07:07 SKIN IRRITATION amoxicillin Allergy Severe LIVER Verified 12/20/19 07:07 FAILURE clavulanic acid Allergy Severe LIVER Verified 12/20/19 07:07 FAILURE guanfacine Allergy Intermediate BP PROBLEMS Verified 12/20/19 07:07 nifedipine Allergy Intermediate BP PROBLEMS Verified 12/20/19 07:07 Consultations 12/20/19 07:54 Consult Case Management - Discharge Planning Routine 12/20/19 15:46 Consult Branch Lending Officer Routine 12/21/19 08:00 Consult Case Management - Discharge Planning Routine 12/23/19 07:56 Consult Hospitalist Routine 12/25/19 08:45 Consult Cardiology Routine Procedures Performed Operation Date: 12/20/19 08:45 Actual Procedures p Right Femoral Popliteal Prosthetic Bypass, Right Common Femoral Artery Endartectomy with Bovine Patch(Right) - Payam Maya MD Hospital Course (1) S/P femoral-popliteal bypass surgery: Pt doing well post op. D/C home today. 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 s/p Right Leg Femoral to Popliteal Artery prosthetic bypass and Right Common femoral artery endarterectomy with bovine patch 2. Right Leg Peripheral Arterial Disease with Rest Pain Condition on Discharge: Good Activity: Per Instructions section Non-emergency contact: Primary Care Provider Call non-emergency contact if: you have any medication questions, your pain is worsening, your temperature is above 101, your wound has increased redness and your wound has increased drainage Follow-up/Referrals: Payam Maya MD [Physician] - (Follow Up appt in 2 weeks for staple removal) Janie Back PA-C [Primary Care Provider] - Diet: Carb Consistent or DM2 and Heart Healthy Ambulatory Orders: Complete Blood Count no Diff (Routine) Timeframe: 1 Week Location: Determined by Patient Ordered By: Giovanny Damon Attending Provider Instructions: 1. No dressing required to RLE wounds, they are dry. 2. May shower and dry wound thoroughly. NO BATHING. 3. Weight bearing as tolerated with assistive device until able to wear your prosthetic leg. 4. Call office to schedule appt for staple removal in 2 weeks. [phone] for appt. ACTIVITY RECOMMENDATIONS: See Above SPECIAL CARE INSTRUCTIONS: Call your doctor if: * Temperature above 101 degrees * Pain not relieved by pain medicine ordered * There is increased drainage or redness from any incision * You have any unanswered questions or concerns. 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 In addition you were transfused a total of 600mg intravenous iron (Venofer). Please continue with oral iron supplementation as prescribed. Recommend repeat blood count in approximately 1-2 weeks. Paroxysmal atrial fibrillation - you were reviewed by your fire control officer Dr Zarate and increased metoprolol tartrate to 50mg twice a day (not to be confused with succinate). Constipation - this is more likely, please take your laxatives already prescribed at home to aim for a bowel movement every 1-2 days. Tobacco use - Call 6-613-MLXK-NOW ( ) for further advice. As discussed will start on Wellbutrin as discussed to help with this. Pending Studies at Discharge: No Stand-Alone Forms: My [facility], Smoking Cessation Medications and DC Order Prescriptions: New metoprolol tartrate 50 mg tablet 50 mg PO BID Qty: 60 RF: 0 ferrous sulfate 325 mg (65 mg iron) tablet 325 mg PO TID Qty: 90 RF: 0 bupropion HCl [Wellbutrin SR] 150 mg tablet sustained-release 12 hr 150 mg PO BID Qty: 60 RF: 0 oxycodone 5 mg Tablet 5 - 10 mg PO Q6 PRN (Reason: pain) Qty: 60 RF: 0 Continued Xarelto 20 mg tablet 20 mg PO QPM RF: 0 Creon 3,000-9,500- 15,000 unit capsule,delayed release(DR/EC) 1 cap PO TID RF: 0 triamcinolone acetonide 0.1 % cream 1 appln TOP DAILY PRN (Reason: NEEDED) RF: 0 atorvastatin 80 mg tablet 80 mg PO DAILY RF: 0 pregabalin [Lyrica] 150 mg capsule 150 mg PO BID RF: 0 pantoprazole [Protonix] 40 mg tablet,delayed release (DR/EC) 40 mg PO QAM RF: 0 zolpidem [Ambien] 10 mg tablet 10 mg PO HS RF: 0 calcium carbonate [Tums] 200 mg calcium (500 mg) tablet,chewable 200 mg PO DAILY PRN (Reason: Indigestion) RF: 0 ondansetron HCl 4 mg tablet 8 mg PO DAILY PRN (Reason: Nausea) RF: 0 aspirin 81 mg Tablet,Delayed Release (Dr/Ec) 81 mg PO QAM RF: 0 Discontinued cilostazol 100 mg Tablet 100 mg PO BID RF: 0 metoprolol succinate 25 mg Tablet Extended Release 24 Hr 25 mg PO QAM RF: 0 Discharge Orders: Discharge Order (Routine); Ordered 12/28/19 Ordered By: Nimo Sharma/Other Patient Handouts: Smoking Quit Plan, Smoking Get Help for Quitting, Staying Smoke Free, Smoking and PAD Admission Data Admit Date/Time: 12/20/19 07:54 Attending Provider: Payam Maya Admit Provider: Payam Maya Primary Care Provider: Janie Back Other Providers: [facility] ; Abdi Back ; Giovanny Santos ; Angus Kaplan ; Sherif Yoon ; Eddie Philippe ; Jayjay Reyes ; Jam Jessica ; Misha Billy ; Missy Love ; Giovanny Lay ; Brandon Zarate
== END 2019-12-28 13:11 | disposition home health service (06) | DRG 253 ==
LOC: ASU 06:24 → 1E 07:54 → 3E 12-21 14:42 → 2S 12-23 10:31 → 2W 12-26 11:04

== ENCOUNTER 2021-04-22 07:22 | Inpatient (IN) ==
[2021-04-22] MEDS ORDERED: methylPREDNISolone 125 MG/2 ML VIAL IV STA (07:35)
[2021-04-22] MEDS ORDERED: ALBUTEROL 0.083% NEBU SOLN 3 ML VIAL NEB STA (07:35)
--- NOTE | 2021-04-22 07:39 | Emergency Department Note ---
Impression & Plan Hypoxic, Smoker, COPD (chronic obstructive pulmonary disease) ED Provider Note NAME: TIARA MCCALL AGE: 61 SEX: F : 1960 ARRIVES VIA: Walk-In INFORMANT: Patient ED PROVIDER(S): Julian Gerard DO CHIEF COMPLAINT: Shortness of breath HPI: Patient is a 61-year-old female with a past medical history of anxiety, depression, GERD, PVD, A. fib with RVR who presents the ER for shortness of breath. She admits to congestion which has been present over the past 24 hours. Shortness of breath started yesterday and got worse this morning. No history of COPD. She has been smoking since the age of 15. She is continuing to smoke. She denies any chest pain. No belly pain, nausea, vomiting, or diarrhea. No dysuria, urgency, or frequency. She normally does not wear oxygen at home. Exertion significantly worsens her shortness of breath. She has not missed any doses of her rivaroxaban with the exception of last night as she intentionally did not take it before procedure coming up this down in [place]. ROS: See above HPI for pertinent positives & negatives. A total of 10 systems reviewed and were otherwise negative. PAST MEDICAL HISTORY:See Below PAST SURGICAL HISTORY:See Below FAMILY HISTORY:See Below SOCIAL HISTORY:See Below HOME MEDICATIONS:See Below ALLERGIES:See Below VITALS:See Below PHYSICAL EXAMINATION: GENERAL: Sitting up in bed, alert, moderate distress, dyspneic with conversation EYE EXAM: normal conjunctiva. PERRL and EOM's grossly intact. OROPHARYNX: no exudate, no erythema, lips, buccal mucosa, and tongue normal and mucous membranes are moist NECK: supple, no nuchal rigidity, no adenopathy, non-tender LUNGS: Diffuse wheezing bilaterally with poor air movement. Normal chest wall mechanics HEART: Tachycardic and irregular regular, S1 normal and S2 normal ABDOMEN: abdomen soft, non-tender, normo-active bowel sounds, no masses, no rebound or guarding. UPPER EXTREMITIES: upper extremities are grossly normal. LOWER EXTREMITIES: No pitting edema. NEURO EXAM: Normal sensorium, cranial nerves II-XII grossly intact, normal speech, no gross weakness of arms, no gross weakness of legs. MEDICAL DECISION MAKING: Patient is a 61-year-old female who presents the ER for shortness of breath. She has been taking her NOAC and has not missed any doses with the exception of last night. IV was established blood work was obtained. Labs show mild leukocytosis 12,000. No significant anemia. BMP with mild hyponatremia. LFTs bilirubin and lipase is unremarkable. Covid was negative. Chest x-ray with pulmonary vascular congestion. Considered PE but doubtful with NOAC use. Patient was given Lasix due to the congestion I favor this multifactorial likely secondary to CHF and COPD. Patient was given neb treatments. Remained on 2 L nasal cannula due to hypoxemia with pulse ox of 85% on room air. Triage Nursing notes reviewed. Limited review of prior medical records performed Vital Signs: reviewed and remarkable for hypoxic and tachycardic Differential diagnosis: Differential diagnoses includes but is not limited to pneumonia, bronchitis, COPD/Asthma exacerbation, pneumothorax, pulmonary embolism, congestive heart failure, acute coronary syndrome ER treatment provided: See below Diagnostics interpreted by me: ECG: A. fib RVR rate of 98 Normal axis No PVCs Septal Q waves Nonspecific ST wave changes in lateral leads QTC 398 Cardiac Monitoring: An order was placed for continuous cardiac monitoring. The monitor shows a rate of 110 with A. fib rhythm. Laboratory studies: As stated above and show below. Imaging studies: Portable AP upright 1 view of the chest shows pulmonary vascular congestion Consultation(s): Discussed with the hospitalist for further evaluation Procedures: none Critical Care: I have personally spent 32 minutes of critical care time in the direct management of this patient. This includes bedside care, interpretation of diagnostic studies, and testing, discussion with consultants, patient, and family members, and other required patient management activities. This 32 minutes is in excess of all separately billable procedures. Past Med/Surg History Medical History Anxiety and depression Arthritis DVT (deep venous thrombosis) OVER 40 YEARS AGO Dyslipidemia Dysphagia reason for upcoming EGD GERD (gastroesophageal reflux disease) Hx of gastric ulcer Hx of migraines Hx of pancreatitis Chronic Neuropathy On anticoagulant therapy Pacemaker IMPLANTED 07/2019 (DR. FELIPE)- Vator.TVTRONIC >WILL BRING CARD. PVD (peripheral vascular disease) Sinus node dysfunction S/p pacemaker Surgical History H/O vascular surgery "bilateral femoral endarterectomy with iliac stent 10/02/2016 Dr. Dharmesh Omalley, [facility]" History of amputation REVISION OF AMPUTATION LLE History of appendectomy History of colonoscopy History of tooth extraction S/P angiogram of extremity right lower leg Status post below knee amputation of left lower extremity Status post ORIF of fracture of ankle "12/18/16- ORIF closed displaced trimalleolar left ankle fracture; Dr. Fischer" Family History Unknown No problems noted. Father Family history of diabetes mellitus Other No family history of adverse response to anesthesia Social History Smoking Status: Current every day smoker Tobacco Type: Cigarettes Cigarettes Per Day: 10-20; Second Hand Exposure: Yes; Hx Alcohol Use: Yes (hx of 12 pack a day - quit ~2018) Alcohol type: beer Hx Substance Use: Yes (medical marijuana card - tincture daily) Last Used Substance: Days (ago) Last Used Substance Other:: yesterday Substance Use Type Other:: Patient has medical marijuana card. Preferred Language: Indonesian Communication Ability: Effective Validation Technician Required: No Beliefs That Will Affect Care: None marital status: Current Living Situation: Spouse current occupation: Retired Feels Safe at Home: Yes Assistive Devices: Denture - Upper, Glasses and Wheelchair Allergies Allergies Allergy/AdvReac Type Severity Reaction Status Date / Time acetaminophen Allergy Severe LIVER Verified 04/22/21 09:07 DAMAGE-DUE TO FAILURE adhesive Allergy Severe SEVERE Verified 04/22/21 09:07 SKIN IRRITATION amoxicillin Allergy Severe LIVER Verified 04/22/21 09:07 FAILURE clavulanic acid Allergy Severe LIVER Verified 04/22/21 09:07 FAILURE guanfacine Allergy Intermediate BP PROBLEMS Verified 04/22/21 09:07 nifedipine Allergy Intermediate BP PROBLEMS Verified 04/22/21 09:07 Home Meds Home Medications Medication Instructions Recorded Confirmed pantoprazole 40 mg tablet,delayed 40 mg PO QAM 07/18/18 04/22/21 release (Protonix) zolpidem 10 mg tablet (Ambien) 10 mg PO HS 07/18/18 04/22/21 rivaroxaban 20 mg tablet (Xarelto) 20 mg PO HS 12/20/18 04/22/21 atorvastatin 80 mg tablet (Lipitor) 80 mg PO HS tab 06/06/19 04/22/21 jtwawj-[id number] 1 cap PO TID 07/31/19 04/22/21 3,000-9,500-15,000 unit capsule,delayed releas (Creon) triamcinolone acetonide 0.1 % 1 appln TOP DAILY PRN 10/09/19 04/22/21 topical cream aspirin 81 mg tablet,delayed 81 mg PO QAM 12/19/19 04/22/21 release (Aspirin Low Dose) diclofenac sodium 1 % topical gel 2 g TOPICAL UD 05/13/20 04/22/21 (Voltaren Arthritis Pain) amitriptyline 25 mg tablet 25 mg PO HS 07/17/20 04/22/21 pregabalin 300 mg capsule (Lyrica) 300 mg PO BID 07/24/20 04/22/21 furosemide 20 mg tablet 20 mg PO 3XWK 11/28/20 04/22/21 cevimeline 30 mg capsule (Evoxac) 1 cap PO TID 01/08/21 04/22/21 metoprolol tartrate 50 mg tablet 50 mg PO BID 04/22/21 04/22/21 (Lopressor) oxycodone 5 mg tablet (Roxicodone) 5 mg PO Q6H PRN 04/22/21 04/22/21 Previous Rx's Medication Instructions Recorded ondansetron 4 mg disintegrating 4 mg PO Q6 PRN #14 tab 07/24/20 tablet Results & Data (ED) Vital Signs Vital Signs - 24 hr 04/22/21 07:24 04/22/21 07:35 04/22/21 08:00 Pulse Rate 123 H 105 H 35 L Pulse Rate [Right Finger] Pulse Rate from SpO2 Sensor 108 H 109 H Respiratory Rate 30 H 23 18 Respiratory Effort / Characteristics Blood Pressure 199/159 H 176/127 H 173/97 H Blood Pressure Mean 172 143 122 Blood Pressure Position Sitting Pulse Oximetry 88 L 92 93 Oxygen Delivery Method Room Air Nasal Cannula Oxygen Flow Rate 4 4 Sepsis Recent Fever Within 48 Hours No Sepsis New/Unexplained Change in Mental Status No Sepsis Action Taken by Nursing Physician Notified Oxygen Flow Rate - Titration Pulse Oximetry Post Tiitration 04/22/21 08:22 04/22/21 08:24 04/22/21 08:32 Pulse Rate 98 H Pulse Rate [Right Finger] 88 Pulse Rate from SpO2 Sensor 106 H Respiratory Rate 20 24 Respiratory Effort / Characteristics Non-Labored Spontaneous Blood Pressure 145/100 H Blood Pressure Mean 115 Blood Pressure Position Pulse Oximetry 96 97 97 Oxygen Delivery Method Nasal Cannula Nasal Cannula Oxygen Flow Rate 3 4 4 Sepsis Recent Fever Within 48 Hours Sepsis New/Unexplained Change in Mental Status Sepsis Action Taken by Nursing Oxygen Flow Rate - Titration Pulse Oximetry Post Tiitration 04/22/21 09:01 04/22/21 09:10 04/22/21 09:31 Pulse Rate 105 H 98 H Pulse Rate [Right Finger] Pulse Rate from SpO2 Sensor 101 H 107 H Respiratory Rate 20 16 Respiratory Effort / Characteristics Non-Labored Blood Pressure 137/100 146/115 H Blood Pressure Mean 112 125 Blood Pressure Position Pulse Oximetry 94 94 Oxygen Delivery Method Oxygen Flow Rate 4 3 Sepsis Recent Fever Within 48 Hours Sepsis New/Unexplained Change in Mental Status Sepsis Action Taken by Nursing Oxygen Flow Rate - Titration Pulse Oximetry Post Tiitration 04/22/21 10:03 04/22/21 10:08 04/22/21 10:10 Pulse Rate 90 109 H Pulse Rate [Right Finger] Pulse Rate from SpO2 Sensor 123 H 115 H Respiratory Rate 23 22 Respiratory Effort / Characteristics Blood Pressure Blood Pressure Mean Blood Pressure Position Pulse Oximetry 90 97 93 Oxygen Delivery Method Nasal Cannula Oxygen Flow Rate 3 4 3 Sepsis Recent Fever Within 48 Hours Sepsis New/Unexplained Change in Mental Status Sepsis Action Taken by Nursing Oxygen Flow Rate - Titration 3 Pulse Oximetry Post Tiitration 94 04/22/21 10:20 04/22/21 10:30 04/22/21 10:40 Pulse Rate 102 H Pulse Rate [Right Finger] Pulse Rate from SpO2 Sensor 112 H 110 H 107 H Respiratory Rate 20 15 Respiratory Effort / Characteristics Blood Pressure Blood Pressure Mean Blood Pressure Position Pulse Oximetry 95 93 95 Oxygen Delivery Method Room Air Room Air Room Air Oxygen Flow Rate Sepsis Recent Fever Within 48 Hours Sepsis New/Unexplained Change in Mental Status Sepsis Action Taken by Nursing Oxygen Flow Rate - Titration Pulse Oximetry Post Tiitration Laboratory Data Result diagrams: 04/22/21 08:20 04/22/21 09:56 Lab Results 04/22/21 04/22/21 04/22/21 Range/Units 07:51 07:51 08:20 WBC 12.08 H (4.8-10.8) K/uL RBC 4.42 (4.2-5.4) M/uL Hgb 13.8 (12.0-16.0) g/dL Hct 40.8 (37-47) % MCV 92.3 (80-100) fL MCH 31.2 (25-34) pg MCHC 33.8 (32-36) g/dL RDW Std Deviation 56.8 H (36.4-46.3) fL RDW Coeff of Marlon 16.9 H (11.5-14.5) % Plt Count 198 (130-400) K/uL MPV 12.0 H (7.4-10.4) fL Immature Gran % (Auto) 0.4 % Neut % (Auto) 79.7 % Lymph % (Auto) 12.7 % Amite % (Auto) 5.5 % Eos % (Auto) 1.3 % Baso % (Auto) 0.4 % Neut # (Auto) 9.61 H (1.4-6.5) K/uL Lymph # (Auto) 1.54 (1.2-3.4) K/uL [place] # (Auto) 0.67 H (0.11-0.59) K/uL Eos # (Auto) 0.16 (0-0.5) K/uL Baso # (Auto) 0.05 (0-0.2) K/uL Immature Gran # (Auto) 0.05 H (0.00-0.02) K/uL APTT (21.0-31.0) Seconds PTT Ratio Sodium (136-145) mmol/L Potassium (3.5-5.1) mmol/L Chloride (98-107) mmol/L Carbon Dioxide (21-32) mmol/L Anion Gap (3-11) BUN (7-18) mg/dl Creatinine (0.6-1.2) mg/dl Est Cr Clr Drug Dosing ml/min Est GFR ( Amer) ml/min Est GFR (Non-Af Amer) ml/min BUN/Creatinine Ratio (10-20) Glucose (70-99) mg/dl Calcium (8.5-10.1) mg/dl Total Bilirubin (0.2-1) mg/dl AST (15-37) U/L ALT (12-78) U/L Alkaline Phosphatase (45-117) U/L Troponin I (0-0.045) ng/ml NT-Pro-B Natriuret Pep (0-900) pg/ml Total Protein (6.4-8.2) gm/dl Albumin (3.4-5.0) gm/dl Globulin (2.5-4.0) gm/dl Albumin/Globulin Ratio (0.9-2) Lipase (73-393) U/L Specimen Hemolysis COVID-19 Eval Order Covid19 at [facility] SARS-CoV-2 (PCR) NEGATIVE (Negative) 04/22/21 04/22/21 04/22/21 Range/Units 08:20 08:20 08:25 WBC (4.8-10.8) K/uL RBC (4.2-5.4) M/uL Hgb (12.0-16.0) g/dL Hct (37-47) % MCV (80-100) fL MCH (25-34) pg MCHC (32-36) g/dL RDW Std Deviation (36.4-46.3) fL RDW Coeff of Marlon (11.5-14.5) % Plt Count (130-400) K/uL MPV (7.4-10.4) fL Immature Gran % (Auto) % Neut % (Auto) % Lymph % (Auto) % [place] % (Auto) % Eos % (Auto) % Baso % (Auto) % Neut # (Auto) (1.4-6.5) K/uL Lymph # (Auto) (1.2-3.4) K/uL Amite # (Auto) (0.11-0.59) K/uL Eos # (Auto) (0-0.5) K/uL Baso # (Auto) (0-0.2) K/uL Immature Gran # (Auto) (0.00-0.02) K/uL APTT 29.4 (21.0-31.0) Seconds PTT Ratio 1.1 Sodium 133 L (136-145) mmol/L Potassium (3.5-5.1) mmol/L Chloride 103 (98-107) mmol/L Carbon Dioxide 23 (21-32) mmol/L Anion Gap 7.0 (3-11) BUN 9 (7-18) mg/dl Creatinine 0.88 (0.6-1.2) mg/dl Est Cr Clr Drug Dosing 68.8 ml/min Est GFR ( Amer) 82.2 ml/min Est GFR (Non-Af Amer) 70.9 ml/min BUN/Creatinine Ratio 9.8 L (10-20) Glucose 104 H (70-99) mg/dl Calcium 8.8 (8.5-10.1) mg/dl Total Bilirubin 0.8 (0.2-1) mg/dl AST (15-37) U/L ALT 17 (12-78) U/L Alkaline Phosphatase 125 H (45-117) U/L Troponin I < 0.015 (0-0.045) ng/ml NT-Pro-B Natriuret Pep 2323 H (0-900) pg/ml Total Protein 7.5 (6.4-8.2) gm/dl Albumin 3.5 (3.4-5.0) gm/dl Globulin 4.0 (2.5-4.0) gm/dl Albumin/Globulin Ratio 0.9 (0.9-2) Lipase 75 (73-393) U/L Specimen Hemolysis COVID-19 Eval Order SARS-CoV-2 (PCR) (Negative) 04/22/21 Range/Units 09:56 WBC (4.8-10.8) K/uL RBC (4.2-5.4) M/uL Hgb (12.0-16.0) g/dL Hct (37-47) % MCV (80-100) fL MCH (25-34) pg MCHC (32-36) g/dL RDW Std Deviation (36.4-46.3) fL RDW Coeff of Marlon (11.5-14.5) % Plt Count (130-400) K/uL MPV (7.4-10.4) fL Immature Gran % (Auto) % Neut % (Auto) % Lymph % (Auto) % Amite % (Auto) % Eos % (Auto) % Baso % (Auto) % Neut # (Auto) (1.4-6.5) K/uL Lymph # (Auto) (1.2-3.4) K/uL Amite # (Auto) (0.11-0.59) K/uL Eos # (Auto) (0-0.5) K/uL Baso # (Auto) (0-0.2) K/uL Immature Gran # (Auto) (0.00-0.02) K/uL APTT (21.0-31.0) Seconds PTT Ratio Sodium (136-145) mmol/L Potassium 5.1 (3.5-5.1) mmol/L Chloride (98-107) mmol/L Carbon Dioxide (21-32) mmol/L Anion Gap (3-11) BUN (7-18) mg/dl Creatinine (0.6-1.2) mg/dl Est Cr Clr Drug Dosing ml/min Est GFR ( Amer) ml/min Est GFR (Non-Af Amer) ml/min BUN/Creatinine Ratio (10-20) Glucose (70-99) mg/dl Calcium (8.5-10.1) mg/dl Total Bilirubin (0.2-1) mg/dl AST 26 (15-37) U/L ALT (12-78) U/L Alkaline Phosphatase (45-117) U/L Troponin I (0-0.045) ng/ml NT-Pro-B Natriuret Pep (0-900) pg/ml Total Protein (6.4-8.2) gm/dl Albumin (3.4-5.0) gm/dl Globulin (2.5-4.0) gm/dl Albumin/Globulin Ratio (0.9-2) Lipase (73-393) U/L Specimen Hemolysis COVID-19 Eval Order SARS-CoV-2 (PCR) (Negative) Administered Medications Discontinued Medications Albuterol (Albuterol 0.083% Nebu Soln 3 Ml Vial) 5 mg NEB NOW STA Stop: 04/22/21 07:36 Last Admin: 04/22/21 08:15 Dose: 5 mg Documented by: [id number] Furosemide (Furosemide 40 Mg/4 Ml Vial) 40 mg IV NOW STA Stop: 04/22/21 09:47 Last Admin: 04/22/21 09:55 Dose: 40 mg Documented by: [id number] Ioversol (Optiray 320 125ml) 120 ml IV ONCE ONE Stop: 04/22/21 11:21 Last Admin: 04/22/21 11:20 Dose: 120 ml Documented by: [id number] Methylprednisolone (Methylprednisolone 125 Mg/2 Ml Vial) 60 mg IV NOW STA Stop: 04/22/21 07:36 Last Admin: 04/22/21 08:27 Dose: 60 mg Documented by: [id number] Imaging Data Radiologist's Impression: Chest X-Ray 04/22/21 07:35 XR chest 1V portable HISTORY: 61 years-old Female Chest Pain acute atypical chest pain COMPARISON: Chest radiograph 02/11/2021 TECHNIQUE: Portable AP view of the chest FINDINGS: Cardiac silhouette is enlarged. Left subclavian pacer. Pulmonary vascular congestion with interstitial coarsening, new from prior. No pneumothorax or large pleural effusion. Bones appear grossly intact. Left shoulder rotator cuff calcific tendinosis. IMPRESSION: Cardiomegaly with pulmonary vascular congestion and interstitial coarsening suggestive of pulmonary edema. An interstitial pneumonitis could appear similarly. ACT 112: Negative or not required by law. The above report was generated using voice recognition software. It may contain grammatical, syntax or spelling errors. Electronically signed by: Saman Anderson M.D. 04/22/2021 9:15 AM Chest CTA 04/22/21 10:35 CT ANGIOGRAPHY OF THE CHEST, PULMONARY EMBOLUS PROTOCOL CLINICAL HISTORY: Shortness of breath. Evaluate for pulmonary embolism. COMPARISON STUDY: Chest CT October 08, 2016. Chest radiograph performed earlier today. TECHNIQUE: Following IV administration of 120 mL of Optiray, helical axial images of the chest were obtained utilizing the pulmonary embolus protocol. Maximal intensity projections and sagittal and coronal reformats were viewed on an independent 3D workstation. IV contrast was administered without complication. Automated exposure control was utilized for the study. A dose lowering technique was utilized adhering to the principles of ALARA. CT DOSE: 518.68 mGycm FINDINGS: No pulmonary emboli are identified. A dual-lead left subclavian pacemaker is in place. Note is made of mild cardiomegaly. There is no pneumo thorax. Small bilateral pleural effusions are noted. Lungs are suboptimally assessed due to respiratory motion. There is a calcified granuloma within the right upper lobe. Interlobular septal thickening is noted. This represents pulmonary edema. There is no consolidation to suggest pneumonia. IMPRESSION: 1. No pulmonary emboli identified. 2. Interstitial pulmonary edema small bilateral pleural effusions. 3. Cardiomegaly. ACT 112: Negative or not required by law. Electronically signed by: Diogo Johnson M.D. 04/22/2021 11:47 AM Discharge Plan Visit Data Chief Complaint: Respiratory Problems Stated Complaint: HAVING TROUBLE BREATHING ED Provider: Julian Gerard Discharge Problem: Hypoxic, Smoker, COPD (chronic obstructive pulmonary disease) Discharge Problem: COPD (chronic obstructive pulmonary disease) Qualifiers: COPD type: unspecified COPD Qualified Code(s): J44.9 - Chronic obstructive pulmonary disease, unspecified
[2021-04-22 08:47] LABS: Basophils # (auto) 0.05 K/uL (0-0.2); Basophils % (auto) 0.4 %; Eosinophils # (auto) 0.16 K/uL (0-0.5); Eosinophils % (auto) 1.3 %; Hematocrit (blood only) 40.8 % (37-47); Hemoglobin 13.8 g/dL (12.0-16.0); Immature Granulocytes # (auto) 0.05 K/uL (0.00-0.02); Immature Granulocytes % (auto) 0.4 %; Lymphocytes # (auto) 1.54 K/uL (1.2-3.4); Lymphocytes % (auto) 12.7 %; Mean Corpuscular Hemoglobin 31.2 pg (25-34); Mean Corpuscular Hgb Conc 33.8 g/dL (32-36); Mean Corpuscular Volume 92.3 fL (80-100); Monocytes # (auto) 0.67 K/uL (0.11-0.59); Monocytes % (auto) 5.5 %; Neutrophils # (auto) 9.61 K/uL (1.4-6.5); Neutrophils % (auto) 79.7 %; Platelet Count 198 K/uL (130-400); RDW Coefficient of Variation 16.9 % (11.5-14.5); RDW Standard Deviation 56.8 fL (36.4-46.3); Red Blood Count 4.42 M/uL (4.2-5.4); White Blood Count 12.08 K/uL (4.8-10.8)
[2021-04-22 08:54] LABS: Partial Thromboplastin Ratio 1.1; Partial Thromboplastin Time 29.4 Seconds (21.0-31.0)
[2021-04-22 09:08] LABS: Alanine Aminotransferase 17 U/L (12-78); Albumin Globulin Ratio 0.9 (0.9-2); Albumin Level 3.5 gm/dl (3.4-5.0); Alkaline Phosphatase 125 U/L (45-117); BUN Creatinine Ratio 9.8 (10-20); Bilirubin,Total 0.8 mg/dl (0.2-1); Blood Urea Nitrogen 9 mg/dl (7-18); Calcium 8.8 mg/dl (8.5-10.1); Carbon Dioxide 23 mmol/L (21-32); Chloride 103 mmol/L (98-107); Creatinine Clr Calc Pharmacy 68.8 ml/min; Est GFR (African American) 82.2 ml/min; Est GFR (Non-African American) 70.9 ml/min; Glucose 104 mg/dl (70-99); Lipase 75 U/L (73-393); Sodium 133 mmol/L (136-145); Total Protein 7.5 gm/dl (6.4-8.2); Troponin I < 0.015 ng/ml (0-0.045)
--- NOTE | 2021-04-22 09:16 | XRay Report ---
XR chest 1V portable HISTORY: 61 years-old Female Chest Pain acute atypical chest pain COMPARISON: Chest radiograph 02/11/2021 TECHNIQUE: Portable AP view of the chest FINDINGS: Cardiac silhouette is enlarged. Left subclavian pacer. Pulmonary vascular congestion with interstitia l coarsening, new from prior. No pneumothorax or large pleural effusion. Bones appear grossly intact. Left shoulder rotator cuff calcific tendinosis. IMPRESSION: Cardiomegaly with pulmonary vascular congestion and interstitial coarsening suggestive of pulmonary edema. An interstitial pneumonitis could appear similarly. ACT 112: Negative or not required by law. The above report was generated using voice recognition software. It may contain grammatical, syntax o r spelling errors. Electronically signed by: Saman Anderson M.D. 04/22/2021 9:15 AM
[2021-04-22] MEDS ORDERED: FUROSEMIDE 40 MG/4 ML VIAL IV STA (09:46)
[2021-04-22 10:34] LABS: Potassium 5.1 mmol/L (3.5-5.1)
[2021-04-22] MEDS ORDERED: OPTIRAY 320 125ml IV ONE (11:20)
--- NOTE | 2021-04-22 11:30 | History & Physical Report ---
Date of Service April 22, 2021 Assessment & Plan (1) Hypoxia: Plan: Hypoxia with dyspnea- now requiring oxygen 2-4LNC to maintain SPO2 >92% - Noted pulmonary vascular congestion likely primary cause- Continue Lasix 40 mg IV- next dose 1600, follow in evening for continued need to diurese or resume normal home oral dose in morning - BNP 2323 last on file 2070 - Nebulizers scheduled for 24 hours- does not carry a diagnosis of COPD - Don't feel infectious at this time WBC are at 12 with NLR 5:1- follow clinical response ABX therapy if clinical picture changes - Did receive a dose of 60mg Solumederol in the EMD- will not continue at this time. Add back if persistent wheezing or dyspnea in light of the above treatment - CTA of the chest to rule out PE as she is in AFib and has been off her anticoagulation- presenting with tachycardia, tachypnea, hypoxia - CTA of the chest NEGATIVE for PE - Troponin negative (2) Atrial fibrillation with rapid ventricular response: Plan: Rate did decrease with nebulizer and diureses, however still gets >110 with movement - Continue Metoprolol 50 PO BID - Diurese as above - Metoprolol 5mg IV q4PRN for HR sustained >120 - Likely compensatory from hypoxia and volume - Follow with diuresing - Xeralto on hold as per HPI - If patient not going to make her appointment on at [facility]- resume (3) HTN (hypertension): Plan: Controlled Continue Lasix and Metoprolol as above (4) H/O vascular surgery: Plan: Continue ASA - Xarelto on hold as per HPI - neuropathy as well continue Neurontin (5) Dyslipidemia: Plan: Continue Atorvastatin 80 mg QHS (6) Chronic pancreatitis: Plan: Followed by GI- recent EGD and colonoscopy - [facility] appointment as per HPI on ly (7) Left leg pain: Plan: Continue neruotntin, Voltaren gel, Liudmila as needed for severe pain (8) Smoker: Plan: 1/2 PPD - NicoDerm patch while in house - Should get baseline PFTs as outpatient (9) Pacemaker: Plan: Dual chamber- Medtronic GERRI XT MRI [id number]- MRI compatible MODE: AAIR with mode switch at 171 to DDDR - Low rate 60, Upper track and sense 130 BPM - Sensitivity 0.3MV- A 1.20 MV -V (10) Chronic pain syndrome: Plan: Continue amitriptyline, Tylenol, Liudmila as above, Voltaren gel History of Present Illness Primary Care Provider: Janie Back PA-C 61 YOF with past medical history of: LT BKA, RT FEM-POP bypass in 12/15, paroxysmal afib (on Xarelto), 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 Patient comes to the emergency room today for complaints of acute onset of dyspnea. She said on Wednesday that she just felt more short of breath than normal, she was having dyspnea doing things that she could normally do without a problem, like getting around her house, going to the bathroom. She also noticed her heart rate was faster, but she denies palpitations or chest pain. She denies any fevers or chills precluding this event. She says she has a cough, but it has not changed nor has her sputum production. She continues to smoke 1/2 ppd. She is normally not on home oxygen or on any inhalers at home. She fo llows with Dr. Zarate for cardiology, and is on Lasix 3x/week with an increase in her therapy 1-2 weeks ago per the patient. She has chronic hyponatremia with increase water intake and diuretic therapy. In the EMD she arrived tachy cardiac in the 120s, tachypneic 20s, and SPO2 on RA 88%, she had an CXR done and shows pulmonary vascular congestion and noted wheezes on presentation. She was given a nebulizer and dose of Lasix, which improved her symptoms of dyspnea. However, the patient remains tachycardic when moving and decrease in her SPO2 with getting up to bedside commode. The patient is normally on Xarelto at home, but this is currently held since Wednesday secondary to her having a GI procedure at [facility] for her chronic pancreatitis this ly2021. She is currently in atrial fibrilation. She does not appear to have an infectious etiology at this time. Troponin is negative, BNP is pending. Patient will be admitted to medical telemetry unit to continue to diurese, rule out pulmonary embolism with CTA of the chest, and continue nebulizers scheduled. Allergies Allergy/AdvReac Type Severity Reaction Status Date / Time acetaminophen Allergy Severe LIVER Verified 04/22/21 09:07 DAMAGE-DUE TO FAILURE adhesive Allergy Severe SEVERE Verified 04/22/21 09:07 SKIN IRRITATION amoxicillin Allergy Severe LIVER Verified 04/22/21 09:07 FAILURE clavulanic acid Allergy Severe LIVER Verified 04/22/21 09:07 FAILURE guanfacine Allergy Intermediate BP PROBLEMS Verified 04/22/21 09:07 nifedipine Allergy Intermediate BP PROBLEMS Verified 04/22/21 09:07 Home Medications Medication Instructions Recorded Confirmed Type pantoprazole 40 mg tablet,delayed 40 mg PO QAM 07/18/18 04/22/21 History release (Protonix) zolpidem 10 mg tablet (Ambien) 10 mg PO HS 07/18/18 04/22/21 History rivaroxaban 20 mg tablet (Xarelto) 20 mg PO HS 12/20/18 04/22/21 History atorvastatin 80 mg tablet (Lipitor) 80 mg PO HS tab 06/06/19 04/22/21 History dioqkx-oqnhbcym-rgwbzve 1 cap PO TID 07/31/19 04/22/21 History 3,000-9,500-15,000 unit capsule,delayed releas (Creon) triamcinolone acetonide 0.1 % 1 appln TOP DAILY PRN 10/09/19 04/22/21 History topical cream aspirin 81 mg tablet,delayed 81 mg PO QAM 12/19/19 04/22/21 History release (Aspirin Low Dose) diclofenac sodium 1 % topical gel 2 g TOPICAL UD 05/13/20 04/22/21 History (Voltaren Arthritis Pain) amitriptyline 25 mg tablet 25 mg PO HS 07/17/20 04/22/21 History ondansetron 4 mg disintegrating 4 mg PO Q6 PRN #14 tab 07/24/20 04/22/21 Rx tablet pregabalin 300 mg capsule (Lyrica) 300 mg PO BID 07/24/20 04/22/21 History furosemide 20 mg tablet 20 mg PO 3XWK 11/28/20 04/22/21 History cevimeline 30 mg capsule (Evoxac) 1 cap PO TID 01/08/21 04/22/21 History metoprolol tartrate 50 mg tablet 50 mg PO BID 04/22/21 04/22/21 History (Lopressor) oxycodone 5 mg tablet (Roxicodone) 5 mg PO Q6H PRN 04/22/21 04/22/21 History Past Med/Surg History Medical History Anxiety and depression Arthritis DVT (deep venous thrombosis) OVER 40 YEARS AGO Dyslipidemia Dysphagia reason for upcoming EGD GERD (gastroesophageal reflux disease) Hx of gastric ulcer Hx of migraines Hx of pancreatitis Chronic Neuropathy On anticoagulant therapy Pacemaker IMPLANTED 07/2019 (DR. ZARATE)- BujbuTRONIC >WILL BRING CARD. PVD (peripheral vascular disease) Sinus node dysfunction S/p pacemaker Surgical History H/O vascular surgery "bilateral femoral endarterectomy with iliac stent 10/02/2016 Dr. Dharmesh Omalley, [facility]" History of amputation REVISION OF AMPUTATION LLE History of appendectomy History of colonoscopy History of tooth extraction S/P angiogram of extremity right lower leg Status post below knee amputation of left lower extremity Status post ORIF of fracture of ankle "12/18/16- ORIF closed displaced trimalleolar left ankle fracture; Dr. Fischer" Family History Unknown No problems noted. Father Family history of diabetes mellitus Other No family history of adverse response to anesthesia Social History Smoking Status: Current every day smoker Tobacco Type: Cigarettes Cigarettes Per Day: 10; Second Hand Exposure: Yes; Hx Alcohol Use: No Hx Substance Use: No Preferred Language: South African Communication Ability: Effective Mutual Fund Manager Required: No Beliefs That Will Affect Care: None marital status: Current Living Situation: Spouse current occupation: Retired Other Information That Helps Us Care for You: No Feels Safe at Home: Yes Safety Concerns: Feels Safe At This Time Assistive Devices: Cane, Denture - Upper, Glasses, Prosthesis, Walker and Wheelchair Review of Systems Review of Systems: REVIEW OF SYSTEMS: Constitutional: No fever, sweats or chills Eyes: No diplopia, no worsening or blurred vision ENT: normal hearing, no trouble swallowing Respiratory: (+) dyspnea at rest or on exertion, No change in cough, sputum, Cardiovascular: No chest pain, tightness or palpitations Abdomen: (+) chronic epigastric pain, No pain, nausea, vomiting, diarrhea or constipation Musculoskeletal: (+) chronic joint pain and neuropathy, NO calf pain, swelling Neurologic: No weakness, numbness/tingling, or balance problems Psychiatric: No anxiety or depression Skin: No rash or itch Physical Exam Physical Exam: PHYSICAL EXAM: General: awake, alert, no apparent distress Head: Normocephalic, atraumatic ENT: PERRL, EOMI, no pharyngeal exudate, mucous membranes moist Neuro: AAO x 3, speech clear and appropriate, strength intact bilaterally 5/5, noted left BKA, sensation intact and equal all extremities and dermatomes, no pronator drift Chest: equal rise and fall of the chest, tachypneic, not conversationally dyspneic, crackles throughout with expiratory wheeze in the bases, on 2L NC, Cardiac: Irregular rate and rhythm, telemetry reviewed- AFIB, skin warm dry, cap refill <3 seconds, peripheral pulses +2 no JVD, no murmur, no peripheral edema GI: NABS x 4 quadrants, soft, tender to palpation at epigastric(no change to normal per patient), no rebound, guarding or tenderness : Spontaneously voiding, no pain, no CVA tenderness, Extremities: Normal inspection, no peripheral edema or erythema, calfs nontender to palpation Psych: Normal mood and affect Skin: no rash or erythema Results & Data Results & Data ([facility]) Vital Signs (Past 12 Hours) Vital Signs Pulse Pulse Resp BP Pulse Ox 04/22/21 10:08 97 04/22/21 10:03 90 23 90 04/22/21 09:31 98 H 16 146/115 H 94 04/22/21 09:01 105 H 20 137/100 94 04/22/21 08:32 98 H 24 145/100 H 97 04/22/21 08:24 97 04/22/21 08:22 88 20 96 04/22/21 08:00 35 L 18 173/97 H 93 04/22/21 07:35 105 H 23 176/127 H 92 04/22/21 07:24 123 H 30 H 199/159 H 88 L Laboratory Results Abnormal lab results 04/22/21 04/22/21 04/22/21 Range/Units 08:20 08:20 08:25 WBC 12.08 H (4.8-10.8) K/uL RDW Std Deviation 56.8 H (36.4-46.3) fL RDW Coeff of Marlon 16.9 H (11.5-14.5) % MPV 12.0 H (7.4-10.4) fL Neut # (Auto) 9.61 H (1.4-6.5) K/uL [place] # (Auto) 0.67 H (0.11-0.59) K/uL Immature Gran # (Auto) 0.05 H (0.00-0.02) K/uL Sodium 133 L (136-145) mmol/L BUN/Creatinine Ratio 9.8 L (10-20) Glucose 104 H (70-99) mg/dl Alkaline Phosphatase 125 H (45-117) U/L NT-Pro-B Natriuret Pep 2323 H (0-900) pg/ml Diagnostic Findings Chest X-Ray 04/22/21 07:35 XR chest 1V portable HISTORY: 61 years-old Female Chest Pain acute atypical chest pain COMPARISON: Chest radiograph 02/11/2021 TECHNIQUE: Portable AP view of the chest FINDINGS: Cardiac silhouette is enlarged. Left subclavian pacer. Pulmonary vascular congestion with interstitial coarsening, new from prior. No pneumothorax or large pleural effusion. Bones appear grossly intact. Left shoulder rotator cuff calcific tendinosis. IMPRESSION: Cardiomegaly with pulmonary vascular congestion and interstitial coarsening suggestive of pulmonary edema. An interstitial pneumonitis could appear similarly. Electronically signed by: Saman Anderson M.D. 04/22/2021 9:15 AM Chest CTA 04/22/21 10:35 CT ANGIOGRAPHY OF THE CHEST, PULMONARY EMBOLUS PROTOCOL CLINICAL HISTORY: Shortness of breath. Evaluate for pulmonary embolism. COMPARISON STUDY: Chest CT October 08, 2016. Chest radiograph performed earlier today. TECHNIQUE: Following IV administration of 120 mL of Optiray, helical axial imag es of the chest were obtained utilizing the pulmonary embolus protocol. Maximal intensity projections and sagittal and coronal reformats were viewed on an independent 3D workstation. IV contrast was administered without complication. Automated exposure control was utilized for the study. A dose lowering technique was utilized adhering to the principles of ALARA. CT DOSE: 518.68 mGycm FINDINGS: No pulmonary emboli are identified. A dual-lead left subclavian pacemaker is in place. Note is made of mild cardiomegaly. There is no pneumothorax. Small bilateral pleural effusions are noted. Lungs are suboptimally assessed due to respiratory motion. There is a calcified granuloma within the right upper lobe. Interlobular septal thickening is noted. This represents pulmonary edema. There is no consolidation to suggest pneumonia. IMPRESSION: 1. No pulmonary emboli identified. 2. Interstitial pulmonary edema small bilateral pleural effusions. 3. Cardiomegaly. Electronically signed by: Diogo Johnson M.D. 04/22/2021 11:47 AM Medications Administered Discontinued Medications Albuterol (Albuterol 0.083% Nebu Soln 3 Ml Vial) 5 mg NEB NOW STA Stop: 04/22/21 07:36 Last Admin: 04/22/21 08:15 Dose: 5 mg Documented by: [id number] Furosemide (Furosemide 40 Mg/4 Ml Vial) 40 mg IV NOW STA Stop: 04/22/21 09:47 Last Admin: 04/22/21 09:55 Dose: 40 mg Documented by: [id number] Methylprednisolone (Methylprednisolone 125 Mg/2 Ml Vial) 60 mg IV NOW STA Stop: 04/22/21 07:36 Last Admin: 04/22/21 08:27 Dose: 60 mg Documented by: [id number] Home Medications pantoprazole 40 mg tablet,delayed release (Protonix) 40 mg PO QAM 07/18/18 [History Confirmed 04/22/21] zolpidem 10 mg tablet (Ambien) 10 mg PO HS 07/18/18 [History Confirmed 04/22/21] rivaroxaban 20 mg tablet (Xarelto) 20 mg PO HS 12/20/18 [History Confirmed 04/22/21] atorvastatin 80 mg tablet (Lipitor) 80 mg PO HS tab 06/06/19 [History Confirmed 04/22/21] ijortv-yjwpeonv-xpyfveq 3,000-9,500-15,000 unit capsule,delayed releas (Creon) 1 cap PO TID 07/31/19 [History Confirmed 04/22/21] triamcinolone acetonide 0.1 % topical cream 1 appln TOP DAILY PRN 10/09/19 [History Confirmed 04/22/21] aspirin 81 mg tablet,delayed release (Aspirin Low Dose) 81 mg PO QAM 12/19/19 [History Confirmed 04/22/21] diclofenac sodium 1 % topical gel (Voltaren Arthritis Pain) 2 g TOPICAL UD 05/13/20 [History Confirmed 04/22/21] amitriptyline 25 mg tablet 25 mg PO HS 07/17/20 [History Confirmed 04/22/21] ondansetron 4 mg disintegrating tablet 4 mg PO Q6 PRN #14 tab 07/24/20 [Rx Confirmed 04/22/21] pregabalin 300 mg capsule (Lyrica) 300 mg PO BID 07/24/20 [History Confirmed 04/22/21] furosemide 20 mg tablet 20 mg PO 3XWK 11/28/20 [History Confirmed 04/22/21] cevimeline 30 mg capsule (Evoxac) 1 cap PO TID 01/08/21 [History Confirmed 04/22/21] metoprolol tartrate 50 mg tablet (Lopressor) 50 mg PO BID 04/22/21 [History Confirmed 04/22/21] oxycodone 5 mg tablet (Roxicodone) 5 mg PO Q6H PRN 04/22/21 [History Confirmed 04/22/21] ECG Additional Comments: AFIB no acute dynamic changes Code Status & VTE Plan Code Status CODE: FULL VTE: SCDs, Lovenox 40mg sub q VTE Prophylaxis Plan VTE Prophylaxis will be ordered: Yes Supervising Physician Co-Signing Physician Notes I supervised Jacinto Florence NP on this admission. I interviewed and examined the patient independently of him. The plan is as written in the SWAHILI TEACHER's note except for any following changes/exceptions: None 61yo F w/ hx of HTN, afib who presents with appearance of CHF. She has hx of potomania and high PO intake causing hyponatremia, but I do not see prior diagnosis of CHF. She had normal LV function on an echo in 2018 per a cardiology note from 12/27/2019. - Will increase Lasix to improve diuresis. Monitor sodium. - Echo ordered. - Consider cardiology consult PG Care Time/CCT Total # of Minutes Spent Total Time Spent with Patient: Total time spent is greater than 50% in coordination of care (as documented) at patient's floor/unit and/or counseling patient: Coding Level of Care Code 22545 Initial Inpt Care Lvl 3 Diagnoses Hypoxia R09.02 Atrial fibrillation with rapid ventricular response I48.91 HTN (hypertension) I10 H/O vascular surgery Z98.890 Dyslipidemia E78.5 Chronic pancreatitis K86.0 Pancreatitis type: alcohol induced Left leg pain M79.605 Smoker F17.200 Pacemaker Z95.0 Chronic pain syndrome G89.4 (1) Chronic pancreatitis Pancreatitis type: alcohol induced Qualified Code(s): K86.0 - Alcohol-induced chronic pancreatitis
--- NOTE | 2021-04-22 11:48 | CT Scan Report ---
CT ANGIOGRAPHY OF THE CHEST, PULMONARY EMBOLUS PROTOCOL CLINICAL HISTORY: Shortness of breath. Evaluate for pulmonary embolism. COMPARISON STUDY: Chest CT October 08, 2016. Chest radiograph performed earlier today. TECHNIQUE: Following IV administration of 120 mL of Optiray, helical axial images of the chest were o btained utilizing the pulmonary embolus protocol. Maximal intensity projections and sagittal and cor onal reformats were viewed on an independent 3D workstation. IV contrast was administered without co mplication. Automated exposure control was utilized for the study. A dose lowering technique was ut ilized adhering to the principles of ALARA. CT DOSE: 518.68 mGycm FINDINGS: No pulmonary emboli are identified. A dual-lead left subclavian pacemaker is in place. Not e is made of mild cardiomegaly. There is no pneumothorax. Small bilateral pleural effusions are noted . Lungs are suboptimally assessed due to respiratory motion. There is a calcified granuloma within th e right upper lobe. Interlobular septal thickening is noted. This represents pulmonary edema. There i s no consolidation to suggest pneumonia. IMPRESSION: 1. No pulmonary emboli identified. 2. Interstitial pulmonary edema small bilateral pleural effusions. 3. Cardiomegaly. ACT 112: Negative or not required by law. Electronically signed by: Diogo Johnson M.D. 04/22/2021 11:47 AM
[2021-04-22] MEDS ORDERED: METOPROLOL TARTRATE 1 MG/ML VIAL IV PRN (15:08)
[2021-04-22] MEDS ORDERED: POLYETHYLENE (MIRALAX) 17 GM PACK PO PRN (15:08)
[2021-04-22] MEDS ORDERED: ACETAMINOPHEN 325 MG TAB PO PRN (15:08)
[2021-04-22] MEDS ORDERED: ONDANSETRON 4 MG OD TAB PO PRN (15:31)
[2021-04-22] MEDS: ALBUT/IPRATROP 3MG/0.5MG NEB 3 ML VIAL INH SCH ×2 (15:48→20:20)
[2021-04-22] MEDS ORDERED: FUROSEMIDE 40 MG/4 ML VIAL IV ONE (16:00)
[2021-04-22] MEDS: oxyCODONE HCL IR 5 MG TAB (IMMEDIATE RELEASE) PO PRN ×2 (16:26→22:35)
[2021-04-22] MEDS: NICOTINE 14 MG/24 HR PATCH TD SCH (16:26)
[2021-04-22 16:47] LABS: Influenza A virus by PCR Negative (Negative); Influenza B virus by PCR Negative (Negative)
[2021-04-22] MEDS: PANCREAZE (LIPASE 4,200U) CAP PO SCH (17:26)
[2021-04-22] MEDS: DICLOFENAC SOD 1% GEL 100 GM TUBE EXT SCH ×2 (17:26→21:07)
[2021-04-22] MEDS ORDERED: PANTOprazole 40 MG TAB PO ONE (20:55)
[2021-04-22] MEDS: AMITRIPTYLINE HCL 25 MG TAB PO SCH (21:08)
[2021-04-22] MEDS: ATORVASTATIN 40 MG TAB PO SCH (21:08)
[2021-04-22] MEDS: METOPROLOL TARTRATE 50 MG TAB PO SCH (21:09)
[2021-04-22] MEDS: PREGABALIN 150 MG CAP PO SCH (21:09)
[2021-04-23] MEDS: ZOLPIDEM TARTRATE 10 MG TAB PO PRN ×2 (00:02→23:22)
[2021-04-23] MEDS: ALBUT/IPRATROP 3MG/0.5MG NEB 3 ML VIAL INH SCH ×2 (00:41→07:51)
[2021-04-23 06:52] LABS: Basophils # (auto) 0.01 K/uL (0-0.2); Basophils % (auto) 0.1 %; Hemoglobin 13.7 g/dL (12.0-16.0); Immature Granulocytes # (auto) 0.04 K/uL (0.00-0.02); Immature Granulocytes % (auto) 0.3 %; Lymphocytes # (auto) 2.06 K/uL (1.2-3.4); Lymphocytes % (auto) 15.2 %; Mean Corpuscular Hemoglobin 30.9 pg (25-34); Mean Corpuscular Hgb Conc 34.3 g/dL (32-36); Mean Corpuscular Volume 90.1 fL (80-100); Mean Platelet Volume 11.3 fL (7.4-10.4); Monocytes # (auto) 0.84 K/uL (0.11-0.59); Monocytes % (auto) 6.2 %; Neutrophils # (auto) 10.59 K/uL (1.4-6.5); Neutrophils % (auto) 78.2 %; Platelet Count 176 K/uL (130-400); RDW Coefficient of Variation 16.8 % (11.5-14.5); RDW Standard Deviation 54.9 fL (36.4-46.3); Red Blood Count 4.44 M/uL (4.2-5.4); White Blood Count 13.54 K/uL (4.8-10.8)
[2021-04-23 07:56] LABS: BUN Creatinine Ratio 15.4 (10-20); Calcium 8.9 mg/dl (8.5-10.1); Est GFR (African American) 64.2 ml/min; Est GFR (Non-African American) 55.4 ml/min; Magnesium 2.1 mg/dl (1.8-2.4); Potassium 3.8 mmol/L (3.5-5.1)
[2021-04-23] MEDS: PREGABALIN 150 MG CAP PO SCH ×2 (08:12→20:31)
[2021-04-23] MEDS: PANTOprazole 40 MG TAB PO SCH (08:13)
[2021-04-23] MEDS: METOPROLOL TARTRATE 50 MG TAB PO SCH (08:13)
[2021-04-23] MEDS: ASPIRIN 81 MG ECTAB PO SCH (08:13)
[2021-04-23] MEDS: PANCREAZE (LIPASE 4,200U) CAP PO SCH ×3 (08:13→17:05)
--- NOTE | 2021-04-23 08:28 | Electrocardiogram Report ---
Test Reason : Blood Pressure : / mmHG Vent. Rate : 074 BPM Atrial Rate : 053 BPM P-R Int : 000 ms QRS Dur : 062 ms QT Int : 402 ms P-R-T Axes : 000 074 082 degrees QTc Int : 446 ms Atrial fibrillation with occasional ventricular-paced complexes and with premature ventricular or elyse rrantly conducted complexes Nonspecific ST and T wave abnormality Abnormal ECG When compared with ECG of 22-APR-2021 07:58, (unconfirmed) Electronic ventricular pacemaker has replaced Atrial fibrillation Confirmed by Tramaine Granado ([id number]) on 04/23/2021 8:27:49 AM Referred By: REFERRED SELF Confirmed By:Tramaine Granado
[2021-04-23] MEDS: NICOTINE 14 MG/24 HR PATCH TD SCH (08:53)
[2021-04-23] MEDS: DICLOFENAC SOD 1% GEL 100 GM TUBE EXT SCH ×4 (08:54→20:32)
[2021-04-23] MEDS: oxyCODONE HCL IR 5 MG TAB (IMMEDIATE RELEASE) PO PRN ×3 (08:54→23:08)
--- NOTE | 2021-04-23 09:42 | XCELERA ---
[id number]
[2021-04-23] MEDS: ENOXAPARIN INJ 40 MG/0.4 ML SYR SQ SCH (11:14)
[2021-04-23] MEDS ORDERED: ALBUT/IPRATROP 3MG/0.5MG NEB 3 ML VIAL INH PRN (12:16)
[2021-04-23] MEDS ORDERED: POTASSIUM CHLORIDE CRTAB 20 MEQ TABCR PO STA (13:37)
[2021-04-23] MEDS ORDERED: FUROSEMIDE 20 MG in SYRINGE 0 ML IV ONE (14:00)
[2021-04-23] MEDS: METOPROLOL TARTRATE 25 MG TAB PO SCH (20:24)
[2021-04-23] MEDS: AMITRIPTYLINE HCL 25 MG TAB PO SCH (20:31)
[2021-04-23] MEDS: ATORVASTATIN 40 MG TAB PO SCH (20:31)
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
[2021-04-24] MEDS: oxyCODONE HCL IR 5 MG TAB (IMMEDIATE RELEASE) PO PRN ×3 (05:56→21:39)
--- NOTE | 2021-04-24 08:32 | Electrocardiogram Report ---
Test Reason : Blood Pressure : / mmHG Vent. Rate : 077 BPM Atrial Rate : 250 BPM P-R Int : 000 ms QRS Dur : 084 ms QT Int : 400 ms P-R-T Axes : 000 058 045 degrees QTc Int : 452 ms Atrial fibrillation with frequent ventricular-paced complexes Nonspecific T wave abnormality Abnormal ECG When compared with ECG of 23-APR-2021 06:27, Vent. rate has increased BY 3 BPM Confirmed by Tramaine Granado ([id number]) on 04/24/2021 8:32:21 AM Referred By: REFERRED SELF Confirmed By:Tramaine Granado
[2021-04-24 09:06] LABS: BUN Creatinine Ratio 19.2 (10-20); Calcium 8.4 mg/dl (8.5-10.1); Creatinine Clr Calc Pharmacy 69.8 ml/min; Est GFR (African American) 85.7 ml/min; Magnesium 2.2 mg/dl (1.8-2.4); Potassium 3.5 mmol/L (3.5-5.1)
[2021-04-24] MEDS: ASPIRIN 81 MG ECTAB PO SCH (09:08)
[2021-04-24] MEDS: PANCREAZE (LIPASE 4,200U) CAP PO SCH ×3 (09:08→16:39)
--- NOTE | 2021-04-24 09:08 | Cardiology Consultation ---
Date of Consultation April 24, 2021 Assessment & Plan (1) Acute heart failure with preserved ejection fraction (HFpEF): Impressions: 1. Acute heart failure with preserved ejection fraction. She had new septal hypokinesis, significantly increased mitral and tricuspid regurgitation, and mild pulmonary hypertension in comparison to previous EKG. Her ejection fraction remains normal. 2. History of recurrent syncopal episodes secondary to high degree AV block post Medtronic dual-chamber pacemaker placed in July 2019 3. Hypertension 4. Tobacco abuse 5. PAD status post left BKA. Ms. Garcia is feeling improved since receiving diuretic therapy here in the hospital. The plan for her today is for right and left cardiac catheterization to assess for CAD. She has been n.p.o. since midnight. R risks and benefits of cardiac catheterization were discussed including risk of infection and bleeding at the insertion site, contrast-induced nephropathy, allergic reaction although patient has not had a history of contrast allergy in the past, and that 1 in 10,000 people have a risk of heart attack stroke or dying during the procedure. She is agreeable to proceeding with the procedure. Her Xeralto is on hold for the procedure. She has been NPO since midnight. Her PRP is pending for today but thus far her kidney function has been stable. She is down 3 kg and 3200 mls since admission. She should continue with her ASA and metoprolol. Blood pressures have been running slightly hypotensive but she has not had symptoms and is tolerating. History of Present Illness Attending Physician: Ирина Hughes MD History of Present Illness Ms. Garcia presented with complaints of acute onset of dyspnea. Her symptoms of shortness of breath started Wednesday although she does note that she has noticed for the past few months that her leg swelling has been worsening. She has also noticed increasing shortness of breath with much of any exertion. T roponin checked on admission was within normal limits. Her BNP was 2323. Chest CTA was without pulmonary emboli but did show interstitial pulmonary edema and small bilateral pleural effusions. She was most recently seen in the office on April 03. At that time her BNP was 1800 and she had noticed an 18 pound weight gain in the last year. She does consume a significant amount of salt due to her hyponatremia. She was told during that visit that she should not be liberalizing her sodium intake. Her diuretic was increased at that time. On the monitor today she is pacing at times and in atrial fibrillation with occasional PVCs. She denies any chest pain. She is not short of breath while she is at rest in bed as we talk. She said previously when she was admitted she could hear herself wheezing but she cannot hear that anymore. She also had the sensation of a heavy heartbeat when she was admitted which has also improved. Allergies Allergy/AdvReac Type Severity Reaction Status Date / Time acetaminophen Allergy Severe LIVER Verified 04/22/21 09:07 DAMAGE-DUE TO FAILURE adhesive Allergy Severe SEVERE Verified 04/22/21 09:07 SKIN IRRITATION amoxicillin Allergy Severe LIVER Verified 04/22/21 09:07 FAILURE clavulanic acid Allergy Severe LIVER Verified 04/22/21 09:07 FAILURE guanfacine Allergy Intermediate BP PROBLEMS Verified 04/22/21 09:07 nifedipine Allergy Intermediate BP PROBLEMS Verified 04/22/21 09:07 Home Medications Medication Instructions Recorded Confirmed Type pantoprazole 40 mg tablet,delayed 40 mg PO QAM 07/18/18 04/22/21 History release (Protonix) zolpidem 10 mg tablet (Ambien) 10 mg PO HS 07/18/18 04/22/21 History rivaroxaban 20 mg tablet (Xarelto) 20 mg PO HS 12/20/18 04/22/21 History atorvastatin 80 mg tablet (Lipitor) 80 mg PO HS tab 06/06/19 04/22/21 History ubzcym-npjfgxjw-vlkbhfe 1 cap PO TID 07/31/19 04/22/21 History 3,000-9,500-15,000 unit capsule,delayed releas (Creon) triamcinolone acetonide 0.1 % 1 appln TOP DAILY PRN 10/09/19 04/22/21 History topical cream aspirin 81 mg tablet,delayed 81 mg PO QAM 12/19/19 04/22/21 History release (Aspirin Low Dose) diclofenac sodium 1 % topical gel 2 g TOPICAL UD 05/13/20 04/22/21 History (Voltaren Arthritis Pain) amitriptyline 25 mg tablet 25 mg PO HS 07/17/20 04/22/21 History ondansetron 4 mg disintegrating 4 mg PO Q6 PRN #14 tab 07/24/20 04/22/21 Rx tablet pregabalin 300 mg capsule (Lyrica) 300 mg PO BID 07/24/20 04/22/21 History furosemide 20 mg tablet 20 mg PO 3XWK 11/28/20 04/22/21 History cevimeline 30 mg capsule (Evoxac) 1 cap PO TID 01/08/21 04/22/21 History metoprolol tartrate 50 mg tablet 50 mg PO BID 04/22/21 04/22/21 History (Lopressor) oxycodone 5 mg tablet (Roxicodone) 5 mg PO Q6H PRN 04/22/21 04/22/21 History Patient History Medical History Anxiety and depression Arthritis DVT (deep venous thrombosis) OVER 40 YEARS AGO Dyslipidemia Dysphagia reason for upcoming EGD GERD (gastroesophageal reflux disease) Hx of gastric ulcer Hx of migraines Hx of pancreatitis Chronic Neuropathy On anticoagulant therapy Pacemaker IMPLANTED 07/2019 (DR. FELIPE)- Simbionix >WILL BRING CARD. PVD (peripheral vascular disease) Sinus node dysfunction S/p pacemaker Surgical History H/O vascular surgery "bilateral femoral endarterectomy with iliac stent 10/02/2016 Dr. Dharmesh Omalley, [facility]" History of amputation REVISION OF AMPUTATION LLE History of appendectomy History of colonoscopy History of tooth extraction S/P angiogram of extremity right lower leg Status post below knee amputation of left lower extremity Status post ORIF of fracture of ankle "12/18/16- ORIF closed displaced trimalleolar left ankle fracture; Dr. Fischer" Family History Unknown No problems noted. Father Family history of diabetes mellitus Other No family history of adverse response to anesthesia Social History Smoking Status: Current every day smoker Tobacco Type: Cigarettes Cigarettes Per Day: 10; Second Hand Exposure: Yes; Hx Alcohol Use: No Hx Substance Use: No Preferred Language: Pashto Communication Ability: Effective Brilliandeer Looper Required: No Beliefs That Will Affect Care: None marital status: Current Living Situation: Spouse current occupation: Retired Other Information That Helps Us Care for You: No Feels Safe at Home: Yes Safety Concerns: Feels Safe At This Time Assistive Devices: Wheelchair Review of Systems Review of Systems: All systems reviewed & are unremarkable except as noted in HPI & below Physical Exam Constitutional: WD/WN, vitals as above Respiratory: normal respiratory effort; no respiratory distress Auscultation: + wheezes (faint, right side ) Cardiovascular: RRR, no murmur, no edema Neurologic: moves all extremities and awake Psychiatric: A+Ox3, euthymic affect Results & Data ([facility]) Vital Signs (Past 12 Hours) Vital Signs Temp Pulse Pulse Resp BP BP Pulse Ox 04/24/21 07:58 36.6 C 94 H 17 117/57 L 97 04/24/21 03:00 36.4 C L 74 18 97/65 L 96 04/24/21 01:43 82 04/23/21 22:56 36.6 C 91 H 20 109/75 97
[2021-04-24] MEDS: ENOXAPARIN INJ 40 MG/0.4 ML SYR SQ SCH (09:09)
[2021-04-24] MEDS: NICOTINE 14 MG/24 HR PATCH TD SCH (09:09)
[2021-04-24] MEDS: PANTOprazole 40 MG TAB PO SCH (09:10)
[2021-04-24] MEDS: DICLOFENAC SOD 1% GEL 100 GM TUBE EXT SCH ×4 (09:10→21:43)
[2021-04-24] MEDS: PREGABALIN 150 MG CAP PO SCH ×2 (09:10→21:41)
[2021-04-24] MEDS: METOPROLOL TARTRATE 25 MG TAB PO SCH ×2 (09:10→21:42)
[2021-04-24] MEDS ORDERED: fentaNYL citrate 100 MCG/2 ML VIAL ONE (13:56)
[2021-04-24] MEDS ORDERED: niCARdipine HCL INJ 2.5 MG/ML 10 ML AMP ONE (13:56)
[2021-04-24] MEDS ORDERED: HEPARIN (PORCINE) 1000 UNIT/ML 10 ML (CATH LAB USE ONLY) ONE (13:56)
[2021-04-24] MEDS ORDERED: NITROGLYCERIN/D5W 100MCG/ML 20ML SYR ONE (13:57)
[2021-04-24] MEDS ORDERED: MIDAZOLAM HCL 1 MG/ML 2ML VIAL ONE ×2 (13:57→15:02)
[2021-04-24 15:29] LABS: iSTAT Arterial Blood Gas HCO3 29 meg/L (19-24); iSTAT Arterial Blood Gas pCO2 51 mmHg (35-46); iSTAT Arterial Blood Gas pH 7.37 (7.35-7.45); iSTAT Arterial Blood Gas pO2 33 mmHg (80-95); iSTAT Carbon Dioxide 31 mmol/L (24-31)
[2021-04-24 15:34] LABS: iSTAT Arterial Blood Gas HCO3 27 meg/L (19-24); iSTAT Arterial Blood Gas pCO2 46 mmHg (35-46); iSTAT Arterial Blood Gas pH 7.38 (7.35-7.45); iSTAT Arterial Blood Gas pO2 81 mmHg (80-95); iSTAT Carbon Dioxide 28 mmol/L (24-31)
--- NOTE | 2021-04-24 17:53 | Pre Anesthesia Assessment ---
Date of Service April 24, 2021 Pre Sedation Assessment Vital Signs Temp Pulse Pulse Resp BP BP Pulse Ox 04/24/21 17:11 98.2 F 75 16 138/92 96 04/24/21 16:42 56 L 18 125/58 L 98 04/24/21 16:26 98.2 F 74 16 116/72 97 04/24/21 16:07 74 04/24/21 15:42 97.5 F L 72 16 120/83 97 04/24/21 07:58 97.9 F 94 H 17 117/57 L 97 04/24/21 03:00 97.5 F L 74 18 97/65 L 96 04/24/21 01:43 82 04/23/21 22:56 97.9 F 91 H 20 109/75 97 04/23/21 20:38 94/58 L 04/23/21 20:23 62 93/61 L 04/23/21 18:54 98.1 F 78 95/64 L 96 Cardiovascular RRR, no murmur, no edema Respiratory normal respiratory effort, lungs clear to auscultation Pre-Sedation Airway Assessment Smoking Status: Current every day smoker Hx Sleep Apnea: No Hx Difficult Intubation: No Short, Thick Neck: No Thyromental Distance: > or= 3.5 Finger Breadths Oral Cavity: + WNL Mallampati Class: III ASA: ASA3 NPO Status Date of Last Intake of Fluids: 04/23/21 Time of Last Intake of Fluids: 20:00 Date of Last Intake of Solid Food: 04/23/21 Time of Last Intake of Solid Foods: 20:00 Procedure Planning Contraindications for Sedation: none Current Medications Reviewed: Yes Notes The planned sedation has been discussed with the patient. Informed Consent was obtained. I have identified the patient, determined the appropriateness of sedation and have assessed the patient immediately prior to the procedure. All medicine(s) and interventions are by my order.
--- NOTE | 2021-04-24 17:54 | Post Anesthesia Assessment ---
Date of Service April 24, 2021 Post Sedation Assessment Vital Signs Temp Pulse Pulse Resp BP BP Pulse Ox 04/24/21 17:30 75 20 155/91 H 95 04/24/21 17:11 98.2 F 75 16 138/92 96 04/24/21 16:42 56 L 18 125/58 L 98 04/24/21 16:26 98.2 F 74 16 116/72 97 04/24/21 16:07 74 04/24/21 15:42 97.5 F L 72 16 120/83 97 04/24/21 07:58 97.9 F 94 H 17 117/57 L 97 04/24/21 03:00 97.5 F L 74 18 97/65 L 96 04/24/21 01:43 82 04/23/21 22:56 97.9 F 91 H 20 109/75 97 04/23/21 20:38 94/58 L 04/23/21 20:23 62 93/61 L 04/23/21 18:54 98.1 F 78 95/64 L 96 Recovery Score Activity: Moves 4 extremities Respiration: Deep Breath/Cough Circulation: +/-20% PreAnes Value Consciousness: Fully Awake Oxygen Saturation: O2 needed for >90% Discharge Sedation Level of Care: Fast Track Phase II Post Sedation Plan On clinical assessment, the patient appears to have tolerated the sedation without complications. Patient is recovering as anticipated. Patient will continue to be monitored by nursing and may be discharged when sedation discharge criteria are met per below protocol. Upon Completions of procedure up to 15 minutes continue every 5 minute vital signs and the P.A.R. score; then discharge to a Phase I or Fast Track to Phase II per the following guidelines: * Discharge Patient to appropriate Phase II area if PAR is 8 or greater or return to pre- procedure baseline. The post - procedure orders will be as directed. * If PAR score is less than 8 or not return to pre-procedure baseline then patient will follow Phase I monitoring till PAR is reached for Phase II. The Phase I may be done in procedure room or may call to secure a Phase I area. * If naloxone or flumazenil are used for reversal, hold in Phase I for continued monitoring from when last reversal dose was given for a minimum of 60 minutes or longer pending the nurse and/or physician discretion of patient condition before discharge to Phase II. Please call the Sedation Physician to re-evaluate and complete post-note for discharge to Phase II area. Do NOT discharge from procedure sedation or Phase 1 until post- sedation evaluation note is complete by procedure /sedation MD Sedation Discharge Instructions to be given to the patient at discharge to home.
--- NOTE | 2021-04-24 17:58 | Post Operative Brief Note ---
Cardiology Brief Post Op Date of Surgery April 24, 2021 Pre & Post Diagnosis Heart failure Mitral regurgitation Procedure Ultrasound-guided access Moderate sedation Coronary angiography Left heart catheterization LV angiography Right heart catheterization [employer] Aidan Carbajal MD Reach Truck Operator Showers Estimated Blood Loss 15 Findings See Below Minimal nonobstructive coronary artery disease Mildly elevated left-sided filling pressures Elevated right-sided filling pressures. Borderline pulmonary hypertension Reduced cardiac output 2+ mitral regurgitation Drains Other Anesthesia Type RN Sedation Complications none Disposition Accompanied Patient To Recovery: No Disposition: PCU Overlapping Procedure I was present for: the critical portions of procedure. I was immediately available: during the entire case. Back up surgeon: was not required during procedure.
[2021-04-24] MEDS: ZOLPIDEM TARTRATE 10 MG TAB PO PRN (21:39)
[2021-04-24] MEDS: AMITRIPTYLINE HCL 25 MG TAB PO SCH (21:42)
[2021-04-24] MEDS: ATORVASTATIN 40 MG TAB PO SCH (21:42)
--- NOTE | 2021-04-24 22:07 | Hospitalist Progress Note ---
Date of Service April 24, 2021 Assessment & Plan (1) Hypoxia: Plan: Patient admitted for hypoxia with shortness of breath Differentials include COPD, tobacco abuse, pulmonary emboli, atrial fibrillation, heart failure CTA of the chest was negative Positive for pulmonary edema. Received furosemide and had improvement No indication for steroids on exam Currently saturating in the 90s on room air with no chest pain or tightness Cardiac catheterization with nonobstructive coronary artery disease Continue to monitor (2) Acute heart failure with preserved ejection fraction (HFpEF): Plan: Furosemide as needed Seems to be euvolemic today Follow serial labs Cardiology consulted and following Cardiac catheterization today (3) Atrial fibrillation with rapid ventricular response: Plan: Continue beta-blockade with metoprolol tartrate Chronically anticoagulated with Xarelto. This is been held for cardiac catheterization Restart anticoagulation per cardiology-likely tomorrow given cardiac catheterization today Rate controlled Follow on telemetry (4) Mitral regurgitation: Plan: Cardiac catheterization planned today Dr. Zarate will see the patient in the morning (5) Pacemaker: Plan: Placed for tachybradycardia syndrome as well as high degree AV block Patient chronically in atrial fibrillation (6) Abnormal echocardiogram: Plan: Cardiac catheterization today with Dr. Carbajal Nonobstructive disease Further management per cardiology (7) HTN (hypertension): Plan: Hemodynamically stable Metoprolol tartrate increased to 75 mg p.o. twice daily Follow on telemetry (8) Smoker: Plan: Continue to be a daily smoker Discussed need for abstention secondary to heart disease (9) PVD (peripheral vascular disease): Plan: Status post left BKA Continue Lyrica and amitriptyline for phantom pain (10) Chronic pain syndrome: Plan: Continue Lyrica, amitriptyline, Tylenol, oxycodone, Voltaren gel (11) COPD (chronic obstructive pulmonary disease): Plan: Patient continues to be every day smoker Continue nebulizer treatments as needed Encouraged tobacco cessation Not on any home bronchodilators for maintenance (12) Chronic pancreatitis: Plan: No abdominal pain at the time of my examination No significant diarrhea Continue Creon (13) Hyponatremia: Plan: Chronic Patient mentating well Sodium today is 132 which appears to be baseline (14) DVT prophylaxis: Plan: Typically anticoagulated for atrial fibrillation Xarelto held for procedure Ambulate as tolerated No lower extremity edema Admission and Anticipated Discharge Date Admission Date: April 22, 2021 Supervising Physician Co-Signing Physician Notes PA Supervision Note: I did not personally see or examine the patient today, but I verified all stearns points of MAYI Kaplan's assessment and plan with the following exceptions/additions: Patient cardiac catheterization today which was clean but did show elevated LVEDP. May need further diuresis tomorrow Follow BMP in the morning Restart Xarelto tomorrow Subjective Attending: Dr. Hughes Patient seen and examined after cardiac catheterization. No chest pain or tightness. No difficulty breathing. No shortness of breath. Patient is complaining of some pain at the arterial entry site. Bandages in place. No bleeding or cyanosis of hand. Patient denies any fever chills. No nausea or vomiting. Has not had a bowel movement since admission. Requesting stool softener. No abdominal pain or distention. No other acute complaints. Review of Systems Review of Systems: All systems reviewed & are unremarkable except as noted in Subjective Physical Exam Physical Exam: GENERAL : No acute distress. Pleasant. Talkative. No conversational dyspnea EYES: No icterus, gaze conjugate NOSE: No evidence of epistaxis MOUTH: No lesions or candidiasis NECK: Supple LUNGS: CTA B/L, no wheezes, rales or rhonchi HEART: Regular, rate controlled ABDOMEN: Soft, NT, ND, BS Present EXTREMITIES: No LE edema, right pedal pulse intact, left popliteal pulse present and palpable NEURO: A&OX3 Results & Data Results & Data ([facility]) Vital Signs (Past 12 Hours) Vital Signs Temp Pulse Pulse Resp BP BP Pulse Ox 04/24/21 19:36 36.5 C 73 19 107/67 97 04/24/21 18:20 82 18 109/78 98 04/24/21 17:53 86 18 123/74 97 04/24/21 17:30 75 20 155/91 H 95 04/24/21 17:11 36.8 C 75 16 138/92 96 04/24/21 16:42 56 L 18 125/58 L 98 04/24/21 16:26 36.8 C 74 16 116/72 97 04/24/21 16:07 74 04/24/21 15:42 36.4 C L 72 16 120/83 97 Laboratory Results 04/23/21 06:36 04/24/21 08:12 Diagnostic Findings Cardiac catheterization 04/24/2021 Minimal nonobstructive coronary artery disease Mildly elevated left-sided filling pressures Elevated right-sided filling pressures. Borderline pulmonary hypertension Reduced cardiac output 2+ mitral regurgitation PG Care Time/CCT Total # of Minutes Spent Total Time Spent with Patient: Total time spent is greater than 50% in coordination of care (as documented) at patient's floor/unit and/or counseling patient: Coding Level of Care Code 61667 Subseq Hosp Care Lvl 2 Diagnoses Acute heart failure with preserved ejection fraction (HFpEF) I50.31 Atrial fibrillation with rapid ventricular response I48.91 Mitral regurgitation I34.0 Pacemaker Z95.0 Abnormal echocardiogram R93.1 HTN (hypertension) I10 Smoker F17.200 PVD (peripheral vascular disease) I73.9 Chronic pain syndrome G89.4 COPD (chronic obstructive pulmonary disease) J44.9 COPD type: unspecified COPD Chronic pancreatitis K86.0 Pancreatitis type: alcohol induced Hyponatremia E87.1 DVT prophylaxis Z29.9 Hypoxia R09.02 Time Spent (min) 30 (1) Chronic pancreatitis Pancreatitis type: alcohol induced Qualified Code(s): K86.0 - Alcohol-induced chronic pancreatitis (2) COPD (chronic obstructive pulmonary disease) COPD type: unspecified COPD Qualified Code(s): J44.9 - Chronic obstructive pulmonary disease, unspecified
--- NOTE | 2021-04-24 23:48 | Cardiac Catheterization ---
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 Cardiac Status Clinical evaluation leading to the procedure CAD Presenation: Sx unlikely to be ischemic Anginal Classification: No Symptoms Heart Failure: NYHA Class: CCS IV Cardiogenic Shock within 24 Hours: No Cardiac Arrest within 24 Hours: No Imaging Studies Past 6 Months: Yes Stress Studies Past 6 Months: No Diagnostic Physicians Name: Aidan Carbajal MD Status: Elective Closure Device Percutaneous Entry Location: Radial Closure Device: Radial Band Recommendations: Medical Therapy and/or Counseling Intraprocedure Events Significant Disection: No Perforation: No Cardiac Cath Procedure Full Procedure Date April 24, 2021 Pre-Procedure Diagnosis Pre-Procedure Diagnosis: CHF and Cardiomyopathy (new septal wall motion abnormality) AUC Score AUC Score: 7 Post-Procedure Diagnosis Post-Procedure Diagnosis: Mild CAD and Elevated Intracardiac Pressures Procedure(s) Performed Procedure(s) Performed: Coronary Angiography, Left Heart Cath, Right Heart Cath and Ultrasound Guided Vascular Access Elevator Constructor Helper Aidan Carbajal MD Drawing Box Tender(s) Showers Estimated Blood Loss Estimated Blood Loss: 10 Medication(s) Medication(s): Fentanyl, Heparin, Lidocaine 1%, Nicardipine, Nitroglycerin and Versed Summary of Findings Indication: Heart failure, new septal wall motion abnormality, history of PAD Access: 6Fr right ulnar artery under ultrasound guidance, 6 Fr antecubital vein under ultrasound guidance Catheters: Brodnax, MPA, pigtail, 6 Fr [place] Findings: LM -moderate caliber, very long course, luminal irregularities. There was some concern for possible anomalous circumflex but none could be identified LAD -medium caliber, no significant disease, extends to apex. Circumflex -abnormal course, medium caliber, large OM1 without significant disease. No significant disease in OM 2 or distal circumflex. RCA -dominant, medium caliber, mid segment luminal regularities LVEDP 19 LVEF 60%, 2+ mitral vegetation. RA 12 RV 37/11 PA 39/23 (27) PCW 17 PaSat 59% AoSat 96% Mallory CO/CI 2.4/1.3 Arterial Closure: TR band Summary: 1. Essentially normal coronary arteries -Long left main with minimal luminal regularities 2. Elevated left and right-sided filling pressures. 3. Borderline pulmonary hypertension 4. Low Mallory cardiac output 5. LVEF 60% with 2+ MR Recommendations: Continue diuresis and management of valvular heart disease per Dr. Fragin Hemodynamics Rest Ao:: 125/77/92 Final Ao: 125/ LV: 132/19 Recommendations Recommendations: Medical Therapy and/or Counseling Specimens Specimens: None Radiation Exposure (mGy) 1371 Contrast (mls) 130 Drains Drains: none Anesthesia moderate 5806-2401 Procedural Complication(s) None Disposition PCU I attest to the content of the Intraoperative Record and any orders documented therein. Any exceptions are noted below. [facility] [place] Card Cath Procedure Codes Cardiac Catheterization Procedure 1: Cardiovascular Cath Procedures: 43865 Coronaries & LHC (+/-LV) & RHC Therapeutic Services & Ancillary Proc Procedure 1: Cardiovascular Tx and Anc Procedures: 40694 Ultrasonic Guidance Vascular Access Procedure 2: Cardiovascular Tx and Anc Procedures: 43496 Ultrasonic Guidance Vascular Access Moderate Sedation Procedure 1: Sedation/Anesthesia: 20685 Mod Sedation by the same physician;Init15 Min Child Age 5 & Up Procedure 2: Sedation/Anesthesia: 01663 Mod Sedation by the same physician; Ea Additi onal15 Minutes PG Care Time/CCT Total # of Minutes Spent Total Time Spent with Patient: Total time spent is greater than 50% in coordination of care (as documented) at patient's floor/unit and/or counseling patient:
[2021-04-25] MEDS: oxyCODONE HCL IR 5 MG TAB (IMMEDIATE RELEASE) PO PRN ×5 (01:36→21:02)
[2021-04-25 06:27] LABS: Basophils # (auto) 0.05 K/uL (0-0.2); Basophils % (auto) 0.5 %; Eosinophils # (auto) 0.22 K/uL (0-0.5); Eosinophils % (auto) 2.4 %; Hematocrit (blood only) 39.7 % (37-47); Hemoglobin 13.5 g/dL (12.0-16.0); Immature Granulocytes # (auto) 0.05 K/uL (0.00-0.02); Immature Granulocytes % (auto) 0.5 %; Lymphocytes # (auto) 2.63 K/uL (1.2-3.4); Lymphocytes % (auto) 28.3 %; Mean Corpuscular Hemoglobin 31.8 pg (25-34); Mean Corpuscular Volume 93.4 fL (80-100); Mean Platelet Volume 11.6 fL (7.4-10.4); Monocytes # (auto) 0.77 K/uL (0.11-0.59); Monocytes % (auto) 8.3 %; Neutrophils # (auto) 5.56 K/uL (1.4-6.5); Platelet Count 154 K/uL (130-400); RDW Standard Deviation 57.4 fL (36.4-46.3); Red Blood Count 4.25 M/uL (4.2-5.4); White Blood Count 9.28 K/uL (4.8-10.8)
[2021-04-25 06:48] LABS: BUN Creatinine Ratio 15.2 (10-20); Calcium 8.6 mg/dl (8.5-10.1); Creatinine Clr Calc Pharmacy 57.4 ml/min; Est GFR (African American) 67.9 ml/min; Est GFR (Non-African American) 58.6 ml/min; Magnesium 2.4 mg/dl (1.8-2.4); Potassium 4.1 mmol/L (3.5-5.1)
--- NOTE | 2021-04-25 07:45 | XRay Report ---
XR chest 1V portable HISTORY: Hypoxia on admission COMPARISON: Chest CTA 04/22/2021. FINDINGS: No pneumothorax. No pleural effusion is. The cardiac silhouette remains mildly enlarged. Th ere is a left-sided dual-chamber pacemaker. Mild central pulmonary vascular congestion has significan tly improved in the interval. Punctate calcified granuloma seen within the right midlung zone. No new focal lung consolidations to suggest pneumonia. IMPRESSION: Near complete resolution of the pulmonary congestion compared to the prior study. ACT 112: Negative or not required by law. Electronically signed by: Manan Colmenares M.D. 04/25/2021 7:43 AM
[2021-04-25] MEDS: NICOTINE 14 MG/24 HR PATCH TD SCH (07:53)
[2021-04-25] MEDS: ENOXAPARIN INJ 40 MG/0.4 ML SYR SQ SCH (07:55)
[2021-04-25] MEDS: DICLOFENAC SOD 1% GEL 100 GM TUBE EXT SCH ×4 (07:55→21:38)
[2021-04-25] MEDS: METOPROLOL TARTRATE 25 MG TAB PO SCH ×2 (07:55→21:01)
[2021-04-25] MEDS: PANTOprazole 40 MG TAB PO SCH (07:56)
[2021-04-25] MEDS: PANCREAZE (LIPASE 4,200U) CAP PO SCH ×3 (07:56→16:28)
[2021-04-25] MEDS: ASPIRIN 81 MG ECTAB PO SCH (07:56)
[2021-04-25] MEDS: PREGABALIN 150 MG CAP PO SCH ×2 (08:52→21:01)
--- NOTE | 2021-04-25 09:30 | Cardiology Progress Note ---
Date of Service April 25, 2021 Assessment & Plan Admission and Anticipated Discharge Date Admission Date: April 22, 2021 Subjective She is resting comfortably this morning. She denies any shortness of breath this morning. She has any chest pain or chest pressure. She has any palpitations. She has daily his dizziness presyncope syncope. She has no lower extremity edema of her one leg. Results & Data ([facility]) Vital Signs (Past 12 Hours) Vital Signs Temp Pulse Resp BP Pulse Ox 04/25/21 08:04 36.4 C L 71 18 125/82 94 04/25/21 04:00 36.6 C 66 18 114/78 97 04/25/21 00:09 36.4 C L 77 18 110/70 96 She is awake alert and oriented x3 HEENT 2+ carotid upstrokes no evidence of carotid bruits Lungs decreased breath sounds in the bases bilaterally worse on the left compared to the right although she was laying on her left side Heart: Paced rhythm soft holosystolic murmur at the apex Abdomen: Soft nontender distended positive bowel sounds Extremities no clubbing cyanosis or edema of the right leg; left leg status post BKA 1. Acute heart failure with preserved ejection fraction. She had new septal hypokinesis, increased mitral and tricuspid regurgitation, and mild pulmonary hypertension in comparison to previous Echo. 2. History of recurrent syncopal episodes secondary to high degree AV block post [employer]tronic dual-chamber pacemaker placed in July 2019 3. Hypertension 4. Tobacco abuse 5. PAD status post left BKA. 6. Cardiac catheterization without evidence of epicardial coronary artery disease this admission; elevated right-sided pressures, LVEDP, and mild pulmonary hypertension 7. Severe mitral regurgitation by echocardiogram with an EF in the range of 55% which is a decline from her outpatient echo 8. History of hyponatremia I reviewed her cardiac catheterization. The good news is that she does not have significant epicardial coronary disease given her peripheral arterial disease. Her right-sided and left-sided pressures are elevated. By catheterization her mitral regurgitation was considered moderate by echo it was thought to be severe. My hope is with improving her volume status that we can keep her out of heart failure and hopefully her mitral valve insufficiency will improve. We discussed the need to reduce her salt consumption. She is consuming salt on the therapy that will raise her serum sodium. I discussed with her the best option to control her sodium is to fluid restrict her to 2000 cc a day with close monitoring of her sodium. I will give her 40 mg of IV Lasix today and she should be discharged on 20 mg of p.o. Lasix daily instead of Wednesday as she was on at home depending on her volume status and her renal function we may need to adjust this further. I will have her see Eve in our office in 7 to 10 days time she will need a BMP and a magnesium level in a week. We discussed a low-salt diet and daily weights if possible
[2021-04-25] MEDS ORDERED: FUROSEMIDE 20 MG in SYRINGE 0 ML IV ONE (09:45)
[2021-04-25] MEDS ORDERED: FUROSEMIDE 40 MG in SYRINGE 0 ML IV ONE (09:45)
[2021-04-25] MEDS: POLYETHYLENE (MIRALAX) 17 GM PACK PO SCH (09:46)
[2021-04-25] MEDS: DOCUSATE SODIUM/SENNA 50/8.6MG TAB PO SCH ×2 (09:46→21:01)
--- NOTE | 2021-04-25 15:07 | Hospitalist Progress Note ---
Date of Service April 25, 2021 Assessment & Plan (1) Acute heart failure with preserved ejection fraction (HFpEF): Plan: Presented with hypoxia requiring 4 L nasal cannula, pulmonary vascular congestion on chest x-ray, elevated proBNP and shortness of breath. CT angio gram of the chest ruled out PE she also presented with tachycardia, tachypnea. Troponin was negative. Has been diuresed with IV Lasix and is significantly improved Hypoxia is resolving chest x-ray is much improved She is able to lie flat Echocardiogram showed septal motion abnormality and severe mitral valve regurgitation Right and left heart cardiac catheterization showed clean coronary arteries and moderate mitral valve regurgitation, with elevated right and left filling pressures, borderline pulmonary hypertension, LVEF 60% -Give Lasix 20 mg IV x1 again this morning -Start Lasix 20 mg p.o. once daily tomorrow morning and should be discharged home on this dose-previous home dose was 20 mg 3 times a week -Advised not to put salt on her food -Should fluid restrict to 2000 mL/day -Daily weights -Rates of her atrial flutter and fibrillation are now well controlled-with increased dose of metoprolol to 75 mg p.o. twice daily (2) Hypoxia: Plan: Patient admitted for hypoxia with shortness of breath Differentials include COPD, tobacco abuse, pulmonary emboli, atrial fibrillation, heart failure CTA of the chest was negative for PE Positive for pulmonary edema. Received furosemide and had improvement No indication for steroids on exam Currently saturating in the 90s on room air with no chest pain or tightness Cardiac catheterization with nonobstructive coronary artery disease Continue to monitor (3) Atrial fibrillation with rapid ventricular response: Plan: Continue beta-blockade with metoprolol tartrate, rates are now well controlled Chronically anticoagulated with Xarelto. This is been held for cardiac catheterization but will be restarted today Follow on telemetry (4) Mitral regurgitation: Plan: Cardiac catheterization as above without disease Appreciate cardiology consultation and management (5) Pacemaker: Plan: Placed for tachybradycardia syndrome as well as high degree AV block Patient chronically in atrial fibrillation (6) Abnormal echocardiogram: Plan: Cardiac catheterization as above Nonobstructive disease Further management per cardiology (7) HTN (hypertension): Plan: Hemodynamically stable Metoprolol tartrate increased to 75 mg p.o. twice daily Follow on telemetry Start Lasix 20 mg p.o. once daily (8) Smoker: Plan: Continue to be a daily smoker Discussed need for abstention secondary to heart disease (9) PVD (peripheral vascular disease): Plan: Status post left BKA Continue Lyrica and amitriptyline for phantom pain (10) Chronic pain syndrome: Plan: Continue Lyrica, amitriptyline, Tylenol, oxycodone, Voltaren gel (11) COPD (chronic obstructive pulmonary disease): Plan: Patient continues to be every day smoker Continue nebulizer treatments as needed Encouraged tobacco cessation Not on any home bronchodilators for maintenance (12) Chronic pancreatitis: Plan: No abdominal pain at the time of my examination No significant diarrhea Continue Creon (13) Hyponatremia: Plan: Chronic Patient mentating well Sodium today is 135 which appears to be baseline (14) Constipation: Plan: Add on senna/docusate and MiraLAX (15) DVT prophylaxis: Plan: Xarelto Disposition-continued stay for mild nausea, generally not feeling well, however overall seems to be doing better. Hopeful for discharge to home on 04/26 Admission and Anticipated Discharge Date Admission Date: April 22, 2021 Anticipated date of discharge: 04/26/21 Subjective Patient reports feeling a bit nauseated today and just does not feel well in general. She also has some bruising and pain in the right arm around the radial cardiac catheterization site from yesterday. She reports she has been doing her own transfers from bed to chair to get to the commode while in her hospital room. She denies further shortness of breath and feels better after Lasix. She denies any chest pain. She reports she does not feel ready yet to go home today. In discussing her volume overload, she reports that she puts salt on all of her food. Telemetry with paced rhythm in the 60s, atrial flutter, with rates in the 60s to 70s Review of Systems Review of Systems: All systems reviewed & are unremarkable except as noted in HPI & below Physical Exam Constitutional: WD/WN, vitals as above Eyes: + anicteric sclerae Neck: trachea midline, no thyromegaly Respiratory: normal respiratory effort Auscultation: + diminished lung sounds (Throughout) Cardiovascular: RRR, no murmur, no edema Chest (Breasts): Chest: normal inspection of chest Gastrointestinal (Abdomen): normal bowel sounds, soft, nontender, no hepatosplenomegaly Musculoskeletal: Extremities: + extremities abnormal to inspection (Left BKA), no cyanosis and no clubbing Skin: no rashes, warm and dry + ecchymosis (Right arm at site of wrist, no hematoma) Neurologic: moves all extremities and awake; no focal motor deficits Psychiatric: A+Ox3, euthymic affect Results & Data Results & Data ([facility]) Vital Signs (Past 12 Hours) Vital Signs Temp Pulse Pulse Resp BP Pulse Ox 04/25/21 12:15 36.5 C 69 19 120/83 95 04/25/21 09:32 71 04/25/21 08:04 36.4 C L 71 18 125/82 94 04/25/21 04:00 36.6 C 66 18 114/78 97 Laboratory Results 04/25/21 04/25/21 Range/Units 05:54 05:54 WBC 9.28 (4.8-10.8) K/uL RBC 4.25 (4.2-5.4) M/uL Hgb 13.5 (12.0-16.0) g/dL Hct 39.7 (37-47) % MCV 93.4 (80-100) fL MCH 31.8 (25-34) pg MCHC 34.0 (32-36) g/dL RDW Std Deviation 57.4 H (36.4-46.3) fL RDW Coeff of Marlon 17.0 H (11.5-14.5) % Plt Count 154 (130-400) K/uL MPV 11.6 H (7.4-10.4) fL Immature Gran % (Auto) 0.5 % Neut % (Auto) 60.0 % Lymph % (Auto) 28.3 % Crook % (Auto) 8.3 % Eos % (Auto) 2.4 % Baso % (Auto) 0.5 % Neut # (Auto) 5.56 (1.4-6.5) K/uL Lymph # (Auto) 2.63 (1.2-3.4) K/uL Crook # (Auto) 0.77 H (0.11-0.59) K/uL Eos # (Auto) 0.22 (0-0.5) K/uL Baso # (Auto) 0.05 (0-0.2) K/uL Immature Gran # (Auto) 0.05 H (0.00-0.02) K/uL Sodium 135 L (136-145) mmol/L Potassium 4.1 D (3.5-5.1) mmol/L Chloride 102 (98-107) mmol/L Carbon Dioxide 29 (21-32) mmol/L Anion Gap 4.0 (3-11) BUN 16 (7-18) mg/dl Creatinine 1.03 (0.6-1.2) mg/dl Est Cr Clr Drug Dosing 57.4 ml/min Est GFR ( Amer) 67.9 ml/min Est GFR (Non-Af Amer) 58.6 ml/min BUN/Creatinine Ratio 15.2 (10-20) Glucose 83 (70-99) mg/dl Calcium 8.6 (8.5-10.1) mg/dl Magnesium 2.4 (1.8-2.4) mg/dl Diagnostic Findings Chest x-ray image personally reviewed by me and agree with the following report: Chest X-Ray 04/25/21 07:00 XR chest 1V portable HISTORY: Hypoxia on admission COMPARISON: Chest CTA 04/22/2021. FINDINGS: No pneumothorax. No pleural effusion is. The cardiac silhouette remains mildly enlarged. There is a left-sided dual-chamber pacemaker. Mild central pulmonary vascular congestion has significantly improved in the interval. Punctate calcified granuloma seen within the right midlung zone. No new focal lung consolidations to suggest pneumonia. IMPRESSION: Near complete resolution of the pulmonary congestion compared to the prior study. ACT 112: Negative or not required by law. Electronically signed by: Manan Colmenares M.D. 04/25/2021 7:43 AM PG Care Time/CCT Total # of Minutes Spent Total Time Spent with Patient: Total time spent is greater than 50% in coordination of care (as documented) at patient's floor/unit and/or counseling patient: Coding Level of Care Code 49070 Subseq Hosp Care Lvl 3 Diagnoses Hypoxia R09.02 Acute heart failure with preserved ejection fraction (HFpEF) I50.31 Atrial fibrillation with rapid ventricular response I48.91 Mitral regurgitation I34.0 Pacemaker Z95.0 Abnormal echocardiogram R93.1 HTN (hypertension) I10 Smoker F17.200 PVD (peripheral vascular disease) I73.9 Chronic pain syndrome G89.4 COPD (chronic obstructive pulmonary disease) J44.9 COPD type: unspecified COPD Chronic pancreatitis K86.0 Pancreatitis type: alcohol induced Hyponatremia E87.1 DVT prophylaxis Z29.9 Constipation K59.00 (1) Chronic pancreatitis Pancreatitis type: alcohol induced Qualified Code(s): K86.0 - Alcohol-induced chronic pancreatitis (2) COPD (chronic obstructive pulmonary disease) COPD type: unspecified COPD Qualified Code(s): J44.9 - Chronic obstructive pulmonary disease, unspecified
[2021-04-25] MEDS ORDERED: RIVAROXABAN 20 MG TAB PO SCH (16:30)
[2021-04-25] MEDS: AMITRIPTYLINE HCL 25 MG TAB PO SCH (21:01)
[2021-04-25] MEDS: ATORVASTATIN 40 MG TAB PO SCH (21:01)
[2021-04-25] MEDS: ZOLPIDEM TARTRATE 10 MG TAB PO PRN (21:02)
[2021-04-26] MEDS: oxyCODONE HCL IR 5 MG TAB (IMMEDIATE RELEASE) PO PRN ×3 (04:04→12:05)
[2021-04-26] MEDS: ASPIRIN 81 MG ECTAB PO SCH (07:51)
[2021-04-26] MEDS: PANTOprazole 40 MG TAB PO SCH (07:51)
[2021-04-26] MEDS: PANCREAZE (LIPASE 4,200U) CAP PO SCH ×2 (07:52→12:05)
[2021-04-26] MEDS: METOPROLOL TARTRATE 25 MG TAB PO SCH (07:52)
[2021-04-26] MEDS: DOCUSATE SODIUM/SENNA 50/8.6MG TAB PO SCH (07:52)
[2021-04-26] MEDS: DICLOFENAC SOD 1% GEL 100 GM TUBE EXT SCH ×2 (07:54→12:48)
[2021-04-26] MEDS: NICOTINE 14 MG/24 HR PATCH TD SCH (07:55)
[2021-04-26] MEDS: POLYETHYLENE (MIRALAX) 17 GM PACK PO SCH (07:56)
[2021-04-26] MEDS: PREGABALIN 150 MG CAP PO SCH (08:36)
--- NOTE | 2021-04-26 08:52 | Hospitalist Progress Note ---
Date of Service April 26, 2021 Assessment & Plan (1) Acute heart failure with preserved ejection fraction (HFpEF): Plan: Presented with hypoxia requiring 4 L nasal cannula, pulmonary vascular congestion on chest x-ray, elevated proBNP and shortness of breath. CT angio gram of the chest ruled out PE she also presented with tachycardia, tachypnea. Troponin was negative. Has been diuresed with IV Lasix and is significantly improved Hypoxia is resolving chest x-ray is much improved She is able to lie flat Echocardiogram showed septal motion abnormality and severe mitral valve regurgitation Right and left heart cardiac catheterization showed clean coronary arteries and moderate mitral valve regurgitation, with elevated right and left filling pressures, borderline pulmonary hypertension, LVEF 60% -Give Lasix 20 mg IV x1 again this morning -Start Lasix 20 mg p.o. once daily tomorrow morning and should be discharged home on this dose-previous home dose was 20 mg 3 times a week -Advised not to put salt on her food -Should fluid restrict to 2000 mL/day -Daily weights -Rates of her atrial flutter and fibrillation are now well controlled-with increased dose of metoprolol to 75 mg p.o. twice daily (2) Hypoxia: Plan: Patient admitted for hypoxia with shortness of breath Differentials include COPD, tobacco abuse, pulmonary emboli, atrial fibrillation, heart failure CTA of the chest was negative for PE Positive for pulmonary edema. Received furosemide and had improvement No indication for steroids on exam Currently saturating in the 90s on room air with no chest pain or tightness Cardiac catheterization with nonobstructive coronary artery disease Continue to monitor (3) Atrial fibrillation with rapid ventricular response: Plan: Continue beta-blockade with metoprolol tartrate, rates are now well controlled Chronically anticoagulated with Xarelto. This is been held for cardiac catheterization but will be restarted today Follow on telemetry (4) Mitral regurgitation: Plan: Cardiac catheterization as above without disease Appreciate cardiology consultation and management (5) Pacemaker: Plan: Placed for tachybradycardia syndrome as well as high degree AV block Patient chronically in atrial fibrillation (6) Abnormal echocardiogram: Plan: Cardiac catheterization as above Nonobstructive disease Further management per cardiology (7) HTN (hypertension): Plan: Hemodynamically stable Metoprolol tartrate increased to 75 mg p.o. twice daily Follow on telemetry Start Lasix 20 mg p.o. once daily (8) Smoker: Plan: Continue to be a daily smoker Discussed need for abstention secondary to heart disease (9) PVD (peripheral vascular disease): Plan: Status post left BKA Continue Lyrica and amitriptyline for phantom pain (10) Chronic pain syndrome: Plan: Continue Lyrica, amitriptyline, Tylenol, oxycodone, Voltaren gel (11) COPD (chronic obstructive pulmonary disease): Plan: Patient continues to be every day smoker Continue nebulizer treatments as needed Encouraged tobacco cessation Not on any home bronchodilators for maintenance (12) Chronic pancreatitis: Plan: No abdominal pain at the time of my examination No significant diarrhea Continue Creon (13) Hyponatremia: Plan: Chronic Patient mentating well Sodium today is 135 which appears to be baseline (14) Constipation: Plan: Add on senna/docusate and MiraLAX (15) DVT prophylaxis: Plan: Xarelto Disposition-continued stay for mild nausea, generally not feeling well, however overall seems to be doing better. Hopeful for discharge to home on 04/26 Admission and Anticipated Discharge Date Admission Date: April 22, 2021 Results & Data Results & Data ([facility]) Vital Signs (Past 12 Hours) Vital Signs Temp Pulse Pulse Resp BP BP Pulse Ox 04/26/21 08:00 36.9 C 65 18 123/84 98 04/26/21 03:56 36.5 C 76 19 110/76 99 04/25/21 23:00 70 04/25/21 22:47 36.4 C L 70 18 123/86 97 PG Care Time/CCT Total # of Minutes Spent Total Time Spent with Patient: Total time spent is greater than 50% in coor dination of care (as documented) at patient's floor/unit and/or counseling patient: Coding Diagnoses Acute heart failure with preserved ejection fraction (HFpEF) I50.31 Hypoxia R09.02 Atrial fibrillation with rapid ventricular response I48.91 Mitral regurgitation I34.0 Pacemaker Z95.0 Abnormal echocardiogram R93.1 HTN (hypertension) I10 Smoker F17.200 PVD (peripheral vascular disease) I73.9 Chronic pain syndrome G89.4 COPD (chronic obstructive pulmonary disease) J44.9 COPD type: unspecified COPD Chronic pancreatitis K86.0 Pancreatitis type: alcohol induced Hyponatremia E87.1 Constipation K59.00 DVT prophylaxis Z29.9 (1) COPD (chronic obstructive pulmonary disease) COPD type: unspecified COPD Qualified Code(s): J44.9 - Chronic obstructive pulmonary disease, unspecified (2) Chronic pancreatitis Pancreatitis type: alcohol induced Qualified Code(s): K86.0 - Alcohol-induced chronic pancreatitis
[2021-04-26 08:53] LABS: Basophils # (auto) 0.07 K/uL (0-0.2); Basophils % (auto) 0.8 %; Eosinophils # (auto) 0.23 K/uL (0-0.5); Eosinophils % (auto) 2.5 %; Hematocrit (blood only) 39.8 % (37-47); Hemoglobin 13.4 g/dL (12.0-16.0); Immature Granulocytes # (auto) 0.05 K/uL (0.00-0.02); Immature Granulocytes % (auto) 0.5 %; Lymphocytes # (auto) 2.63 K/uL (1.2-3.4); Lymphocytes % (auto) 28.5 %; Mean Corpuscular Hemoglobin 31.6 pg (25-34); Mean Corpuscular Hgb Conc 33.7 g/dL (32-36); Mean Corpuscular Volume 93.9 fL (80-100); Mean Platelet Volume 12.3 fL (7.4-10.4); Monocytes # (auto) 0.88 K/uL (0.11-0.59); Monocytes % (auto) 9.5 %; Neutrophils # (auto) 5.38 K/uL (1.4-6.5); Neutrophils % (auto) 58.2 %; Platelet Count 156 K/uL (130-400); RDW Coefficient of Variation 16.9 % (11.5-14.5); RDW Standard Deviation 57.7 fL (36.4-46.3); Red Blood Count 4.24 M/uL (4.2-5.4); White Blood Count 9.24 K/uL (4.8-10.8)
[2021-04-26] MEDS ORDERED: FUROSEMIDE 20 MG TAB PO SCH (09:00)
[2021-04-26 09:10] LABS: BUN Creatinine Ratio 16.4 (10-20); Calcium 8.3 mg/dl (8.5-10.1); Creatinine Clr Calc Pharmacy 54.8 ml/min; Est GFR (African American) 64.2 ml/min; Est GFR (Non-African American) 55.4 ml/min; Magnesium 2.3 mg/dl (1.8-2.4)
--- NOTE | 2021-04-26 13:05 | Discharge Summary ---
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 Patient comes to the emergency room today for complaints of acute onset of dyspnea. She said on Wednesday that she just felt more short of breath than normal, she was having dyspnea doing things that she could normally do without a problem, like getting around her house, going to the bathroom. She also noticed her heart rate was faster, but she denies palpitations or chest pain. She d enies any fevers or chills precluding this event. She says she has a cough, but it has not changed nor has her sputum production. She continues to smoke 1/2 ppd. She is normally not on home oxygen or on any inhalers at home. She follows with Dr. Zarate for cardiology, and is on Lasix 3x/week with an increase in her therapy 1-2 weeks ago per the patient. She has chronic hyponatremia with increase water intake and diuretic therapy. In the EMD she arrived tachy cardiac in the 120s, tachypneic 20s, and SPO2 on RA 88%, she had an CXR done and shows pulmonary vascular congestion and noted wheezes on presentation. She was given a nebulizer and dose of Lasix, which improved her symptoms of dyspnea. However, the patient remains tachycardic when moving and decrease in her SPO2 with getting up to bedside commode. The patient is normally on Xarelto at home, but this is currently held since Wednesday secondary to [place] [facility] [place]. She is currently in atrial fibrilation. She does not appear to have an infectious etiology at this time. Troponin is negative, BNP is pending. Patient will be admitted to medical telemetry unit to continue to diurese, rule out pulmonary embolism with CTA of the chest, and continue nebulizers scheduled. Principal Diagnosis Acute on chronic congestive heart failure Discharge Exam Constitutional well developed and well nourished; no acute distress and no altered mental status Eyes + anicteric sclerae ENMT external ear and nose normal, oropharynx normal Respiratory normal respiratory effort, lungs clear to auscultation Cardiovascular Rate/Rhythm: regular rate and + irregularly irregular Heart Sounds: normal S1 and normal S2; no murmur Vessels: no JVD Extremities: no edema Gastrointestinal (Abdomen) Inspection/Auscultation: normal bowel sounds; abdomen not distended Percussion/Palpation: abdomen nontender, no guarding, abdomen not rigid and no hepatosplenomegaly Skin no jaundice Psychiatric Orientation: alert and oriented x 3 Discharge Data Allergies Allergy/AdvReac Type Severity Reaction Status Date / Time acetaminophen Allergy Severe LIVER Verified 04/22/21 09:07 DAMAGE-DUE TO FAILURE adhesive Allergy Severe SEVERE Verified 04/22/21 09:07 SKIN IRRITATION amoxicillin Allergy Severe LIVER Verified 04/22/21 09:07 FAILURE clavulanic acid Allergy Severe LIVER Verified 04/22/21 09:07 FAILURE guanfacine Allergy Intermediate BP PROBLEMS Verified 04/22/21 09:07 nifedipine Allergy Intermediate BP PROBLEMS Verified 04/22/21 09:07 Consultations 04/22/21 09:56 ED Decision to Admit Stat 04/23/21 19:28 Consult Cardiac Catheterization Routine Consult Cardiology Routine Procedures Performed Operation Date: 04/24/21 13:00 Actual Procedures p Cath, Right and Left Heart - Abdi Carbajal MD s Ultrasound Vascular Access - Abdi Carbajal MD s Injection / Imaging Aorta - Abdi Carbajal MD Ordered Studies 04/22/21 10:35 CT angio chest PE protocol Urgent IMPRESSION: 1. No pulmonary emboli identified. 2. Interstitial pulmonary edema small bilateral pleural effusions. 3. Cardiomegaly. 04/24/21 10:49 CL Cath Imgs for PACS use only Routine Hospital Course (1) Acute heart failure with preserved ejection fraction (HFpEF): Anisha Garcia is a 61 year old female admitted to [facility] from April 22-2020 due to shortness of breath. She was treated with IV Lasix. Due to wall motion abnormalities on her echocardiogram she underwent cardiac catheterization on April 24, 2021. This showed essentially normal coronary arteries. On review by her agile scrum coach recommend restricting your fluid intake to 2000ml per day and 2g salt per day and increasing her Lasix 20mg PO daily. She was educated regarding cutting back on her salt intake and that her low sodium doesn't mean she needs to take more. (2) Hypoxia: (3) Atrial fibrillation with rapid ventricular response: (4) Mitral regurgitation: (5) Pacemaker: (6) Abnormal echocardiogram: (7) HTN (hypertension): (8) Smoker: (9) PVD (peripheral vascular disease): (10) Chronic pain syndrome: (11) COPD (chronic obstructive pulmonary disease): (12) Chronic pancreatitis: (13) Hyponatremia: (14) Constipation: (15) DVT prophylaxis: Total Time Total Time Spent Total Time Spent (In Minutes): 50 Discharge Plan Discharge Items Patient Disposition: Home - Self-Care Reason For Visit: HYPOXIA,DYPNEA Discharge Diagnosis: Acute on chronic congestive heart failure Activity: Resume your previous activity Non-emergency contact: Primary Care Provider Call non-emergency contact if: you have any medication questions and your symp toms worsen Follow-up/Referrals: Janie Back PA-C [Primary Care Provider] - Diet: Heart Healthy and Low Sodium (2gm) Fluids: 2000ml (8 cups) Addtl Attending Provider Instructions: You were admitted to [facility] from April 22-2020 due to shortness of breath. You were treated with intravenous diuretics. Due to wall motion abnormalities on your echocardiogram you underwent cardiac catheterization on April 24, 2021. This showed essentially normal coronary arteries. On review by your agile scrum coach recommen restricting your fluid intake to 2000ml per day and 2g salt per day. Also recommend increasing your furosemide to 20mg PO daily rather than three days a week. Pending Studies at Discharge: No Stand-Alone Forms: My [facility], Smoking Cessation Medications and DC Order Prescriptions: New furosemide 20 mg tablet 20 mg PO DAILY Qty: 30 RF: 0 Continued Xarelto 20 mg tablet 20 mg PO HS RF: 0 Creon 3,000-9,500- 15,000 unit capsule,delayed release(DR/EC) 1 cap PO TID RF: 0 triamcinolone acetonide 0.1 % cream 1 appln TOP DAILY PRN (Reason: NEEDED) RF: 0 amitriptyline 25 mg tablet 25 mg PO HS RF: 0 atorvastatin [Lipitor] 80 mg tablet 80 mg PO HS RF: 0 pantoprazole [Protonix] 40 mg tablet,delayed release (DR/EC) 40 mg PO QAM RF: 0 zolpidem [Ambien] 10 mg tablet 10 mg PO HS RF: 0 diclofenac sodium [Voltaren Arthritis Pain] 1 % gel 2 g TOPICAL UD RF: 0 pregabalin [Lyrica] 300 mg capsule 300 mg PO BID RF: 0 ondansetron 4 mg tablet,disintegrating 4 mg PO Q6 PRN (Reason: nausea and vomiting) Qty: 14 RF: 0 aspirin [Aspirin Low Dose] 81 mg Tablet,Delayed Release (Dr/Ec) 81 mg PO QAM RF: 0 cevimeline [Evoxac] 30 mg Capsule 1 cap PO TID RF: 0 oxycodone [Roxicodone] 5 mg tablet 5 mg PO Q6H PRN (Reason: pain) RF: 0 metoprolol tartrate [Lopressor] 50 mg tablet 50 mg PO BID Qty: 0 RF: 0 Discontinued furosemide 20 mg tablet 20 mg PO 3XWK RF: 0 Discharge Orders: Discharge Order (Routine); Ordered 04/26/21 Ordered By: Giovanny Sharma/Other Patient Handouts: Heart Failure Dc Admission Data Admit Date/Time: 04/22/21 10:44 Attending Provider: Giovanny Santos Admit Provider: Manjit Corona Primary Care Provider: Janie Back Other Providers: Manjit Corona ; Abdi Carbajal ; Brandon Zarate Other Interventions: Discharge Summary Assessment (RN) Last Done: 04/26/21 13:26 Coding Level of Care Code D/C DAY MANAGEMENT >30 MINS Diagnoses Acute heart failure with preserved ejection fraction (HFpEF) I50.31 Hypoxia R09.02 Atrial fibrillation with rapid ventricular response I48.91 Mitral regurgitation I34.0 Pacemaker Z95.0 Abnormal echocardiogram R93.1 HTN (hypertension) I10 Smoker F17.200 PVD (peripheral vascular disease) I73.9 Chronic pain syndrome G89.4 COPD (chronic obstructive pulmonary disease) J44.9 COPD type: unspecified COPD Chronic pancreatitis K86.0 Pancreatitis type: alcohol induced Hyponatremia E87.1 Constipation K59.00 DVT prophylaxis Z29.9
== END 2021-04-26 14:00 | disposition home or self-care (01) | DRG 286 ==
LOC: ED 07:22 → SUATTDRO 10:44 → EDINP 10:44 → 2N 17:58 → 2S 04-24 15:53
PROC: CLB.IPA (2021-04-24 13:00)

== ENCOUNTER 2021-08-07 07:09 | Observation (INO) ==
--- NOTE | 2021-08-07 07:31 | Emergency Department Note ---
History of Present Illness General Chief complaint: Infection, Wound Stated complaint: GROIN INFECTION STATUS POST SURGERY Time Seen by Provider: 08/07/21 07:17 Source: patient and RN notes reviewed Mode of arrival: wheelchair Limitations: no limitations History of Present Illness Maximum Pain Intensity: 9 This patient is 61-year-old female who comes in with right groin pain and some drainage. She had a good procedure in both the right and left groin at [facility] about a week to week and half ago. She says they were trying to fix her mitral valves through a groin catheter. Since then she has had some pain in the groin. She said some clear drainage. She said today it looks more yellow. She has had no fever chills no nausea vomiting no chest pain. She feels a little short of breath but she says she did not take her fluid pill today because she did not want to have to worry about going to the bathroom on the way to the hospital. She is on Xarelto. Home Medications Medication Instructions Recorded Confirmed Type pantoprazole 40 mg tablet,delayed 40 mg PO QAM 07/18/18 08/07/21 History release (Protonix) zolpidem 10 mg tablet (Ambien) 10 mg PO HS 07/18/18 08/07/21 History rivaroxaban 20 mg tablet (Xarelto) 20 mg PO HS 12/20/18 08/07/21 History atorvastatin 80 mg tablet (Lipitor) 80 mg PO HS tab 06/06/19 08/07/21 History lipase 3,000-protease 1 cap PO TIDM 07/31/19 08/07/21 History 9,500-amylase 15,000 unit capsule, delayed rel (Creon) triamcinolone acetonide 0.1 % 1 appln TOP DAILY PRN 10/09/19 08/07/21 History topical cream aspirin 81 mg tablet,delayed 81 mg PO QAM 12/19/19 08/07/21 History release (Aspirin Low Dose) diclofenac sodium 1 % topical gel 2 g TOPICAL UD 05/13/20 08/07/21 History (Voltaren Arthritis Pain) amitriptyline 25 mg tablet 25 mg PO HS 07/17/20 08/07/21 History ondansetron 4 mg disintegrating 4 mg PO Q6 PRN #14 tab 07/24/20 08/07/21 Rx tablet pregabalin 300 mg capsule (Lyrica) 300 mg PO BID 07/24/20 08/07/21 History cevimeline 30 mg capsule (Evoxac) 1 cap PO TID 01/08/21 08/07/21 History oxycodone 5 mg tablet (Roxicodone) 5 mg PO Q6H PRN 04/22/21 08/07/21 History metoprolol tartrate 50 mg tablet 50 mg PO BID #0 tab 04/26/21 08/07/21 Rx (Lopressor) furosemide 40 mg tablet (Lasix) 40 mg PO QAM #30 tab 05/31/21 08/07/21 Rx spironolactone 25 mg tablet 12.5 mg PO BID tab 06/13/21 08/07/21 History (Aldactone) doxycycline hyclate 100 mg tablet 100 mg PO BID 10 Days #20 tab 08/01/21 08/07/21 Rx Allergies Allergy/AdvReac Type Severity Reaction Status Date / Time acetaminophen Allergy Severe LIVER Verified 08/07/21 09:04 DAMAGE-DUE TO FAILURE adhesive Allergy Severe SEVERE Verified 08/07/21 09:04 SKIN IRRITATION amoxicillin Allergy Severe LIVER Verified 08/07/21 09:04 FAILURE clavulanic acid Allergy Severe LIVER Verified 08/07/21 09:04 FAILURE guanfacine Allergy Intermediate BP PROBLEMS Verified 08/07/21 09:04 nifedipine Allergy Intermediate BP PROBLEMS Verified 08/07/21 09:04 Past Med/Surg History Medical History Anxiety and depression Arthritis DVT (deep venous thrombosis) OVER 40 YEARS AGO Dyslipidemia Dysphagia reason for upcoming EGD GERD (gastroesophageal reflux disease) Hx of gastric ulcer Hx of migraines Hx of pancreatitis Chronic Neuropathy On anticoagulant therapy Pacemaker IMPLANTED 07/2019 (DR. FELIPE)- MEDTRONIC >WILL BRING CARD. PVD (peripheral vascular disease) Sinus node dysfunction S/p pacemaker Surgical History H/O vascular surgery "bilateral femoral endarterectomy with iliac stent 10/02/2016 Dr. Dharmesh Omalley, [facility]" History of amputation REVISION OF AMPUTATION LLE History of appendectomy History of colonoscopy History of tooth extraction S/P angiogram of extremity right lower leg Status post below knee amputation of left lower extremity Status post ORIF of fracture of ankle "12/18/16- ORIF closed displaced trimalleolar left ankle fracture; Dr. Fischer" Family History Unknown No problems noted. Father Family history of diabetes mellitus Other No family history of adverse response to anesthesia Social History Smoking Status: Current every day smoker Tobacco Type: Cigarettes Cigarettes Per Day: 10; Second Hand Exposure: Yes; Hx Alcohol Use: No Hx Substance Use: No Preferred Language: Macedonian Communication Ability: Effective Computing Systems Mechanic Required: No Beliefs That Will Affect Care: None marital status: Current Living Situation: Spouse current occupation: Retired Feels Safe at Home: Yes Assistive Devices: Wheelchair Review of Systems A total of 10 systems reviewed and were otherwise negative Physical Exam Vital Signs Vital Signs - 24 hr 08/07/21 07:12 08/07/21 07:59 08/07/21 08:00 Temperature 36.5 C Temperature Source Oral Pulse Rate 93 H 72 Pulse Rate [Right Finger] 72 Respiratory Rate 18 18 18 Respiratory Effort / Characteristics Respiratory Depth Normal Blood Pressure 153/91 H Blood Pressure [Right Arm] 106/87 Blood Pressure Mean 111 Blood Pressure Mean [Right Arm] 93 Pulse Oximetry 95 99 99 Oxygen Delivery Method Room Air Room Air Room Air Sepsis Recent Fever Within 48 Hours No Sepsis New/Unexplained Change in Mental Status N/A Sepsis Action Taken by Nursing No Action Required 08/07/21 08:01 08/07/21 08:59 08/07/21 10:11 Temperature Temperature Source Pulse Rate Pulse Rate [Right Finger] 74 72 Respiratory Rate 16 16 Respiratory Effort / Characteristics Non-Labored Respiratory Depth Blood Pressure Blood Pressure [Right Arm] 126/74 130/88 Blood Pressure Mean Blood Pressure Mean [Right Arm] 91 102 Pulse Oximetry 99 99 100 Oxygen Delivery Method Room Air Room Air Room Air Sepsis Recent Fever Within 48 Hours Sepsis New/Unexplained Change in Mental Status Sepsis Action Taken by Nursing General: Well developed well nourished middle-age female who appears in no acute distress, breathing comfortably on room air. Normal speech HEENT: Normal cephalic atraumatic. Pupils are equal round and reactive to light. Extraocular movements are intact. Oropharynx is pink with moist mucous membranes. No swelling of the mouth lips or tongue. Neck: Supple with a midline trachea. No meningeal signs or stiffness, no JVD or bruits. No Stridor. Chest: Clear to auscultation bilaterally. No wheezes or rhonchi. No increased work of breathing. Heart: Regular rate and rhythm without murmurs or gallops. Abdomen: Soft nontender, nondistended without rebound guarding or rigidity. Extremities: She has an amputation of her left lower extremity from previous infection she tells me. No cyanosis clubbing or edema. No calf tenderness on the right. Normal distal pulses. Groin: There is a scab that is black in the right groin. There is a small amount of yellowish drainage peripherally there is no redness or warmth. No crepitus. The left groin is healing well without any abnormality Spine/Back. Non tender to palpation. No CVA tenderness Skin: Good turgor without rashes. Neurologic exam: Cranial nerves two through 12 are intact. Motor and sensation are intact and symmetrical throughout. Course Administered Medications Discontinued Medications Diphenhydramine HCl (Diphenhydramine 50 Mg/Ml Vial) Confirm Administered Dose 50 mg .ROUTE .STK-MED ONE Stop: 08/07/21 10:14 Last Admin: 08/07/21 10:15 Dose: 25 mg Documented by: [id number] Hydromorphone HCl (Hydromorphone Inj 1 Mg/Ml Syringe) 1 mg IV NOW STA Stop: 08/07/21 11:27 Last Admin: 08/07/21 11:39 Dose: 1 mg Documented by: [id number] Ceftriaxone Sodium (Rocephin) 2,000 mg in 70 mls @ 140 mls/hr IV NOW STA Stop: 08/07/21 10:10 Last Infusion: 08/07/21 10:27 Dose: 0 mls/hr Documented by: [id number] Admin: 08/07/21 09:56 Dose: 140 mls/hr Documented by: [id number] Sodium Chloride (Nss 1000ml) 250 mls @ 999 mls/hr IV .Q16M ONE Stop: 08/07/21 10:02 Last Infusion: 08/07/21 10:27 Dose: 0 mls/hr Documented by: [id number] Admin: 08/07/21 10:02 Dose: 999 mls/hr Documented by: [id number] Morphine Sulfate (Morphine Sulfate 2 Mg/Ml Carp) 2 mg IV NOW STA Stop: 08/07/21 09:48 Last Admin: 08/07/21 10:01 Dose: 2 mg Documented by: [id number] Ondansetron HCl (Ondansetron Inj 2 Mg/Ml 2 Ml Vial) 4 mg IV NOW STA Stop: 08/07/21 09:48 Last Admin: 08/07/21 10:02 Dose: 4 mg Documented by: [id number] Medical Decision Making Differential Diagnosis Infection, sepsis, hematoma, pseudoaneurysm, electrolyte or metabolic abnormality, cardiac disease Medical Records Attestation: I reviewed the patient's medical records. Home Medications Current Medication List: was personally reviewed by me Laboratory Data Result diagrams: 08/07/21 07:48 08/07/21 07:48 Lab Results 08/07/21 08/07/21 08/07/21 Range/Units 07:48 07:48 07:48 WBC 12.63 H (4.8-10.8) K/uL RBC 4.42 (4.2-5.4) M/uL Hgb 13.3 (12.0-16.0) g/dL Hct 39.8 (37-47) % MCV 90.0 (80-100) fL MCH 30.1 (25-34) pg MCHC 33.4 (32-36) g/dL RDW Std Deviation 52.7 H (36.4-46.3) fL RDW Coeff of Marlon 16.2 H (11.5-14.5) % Plt Count 221 (130-400) K/uL MPV 11.6 H (7.4-10.4) fL Immature Gran % (Auto) 0.5 % Neut % (Auto) 74.7 % Lymph % (Auto) 14.7 % [place] % (Auto) 7.7 % Eos % (Auto) 1.8 % Baso % (Auto) 0.6 % Neut # (Auto) 9.44 H (1.4-6.5) K/uL Lymph # (Auto) 1.86 (1.2-3.4) K/uL [place] # (Auto) 0.97 H (0.11-0.59) K/uL Eos # (Auto) 0.23 (0-0.5) K/uL Baso # (Auto) 0.07 (0-0.2) K/uL Immature Gran # (Auto) 0.06 H (0.00-0.02) K/uL PT 12.2 H (9.0-12.0) Seconds INR 1.2 H (0.9-1.1) APTT 37.6 H (21.0-31.0) Seconds PTT Ratio 1.4 Sodium 130 L (136-145) mmol/L Potassium 4.5 (3.5-5.1) mmol/L Chloride 100 (98-107) mmol/L Carbon Dioxide 23 (21-32) mmol/L Anion Gap 7.0 (3-11) BUN 13 (7-18) mg/dl Creatinine 1.10 (0.6-1.2) mg/dl Est Cr Clr Drug Dosing Not Reportable Est GFR ( Amer) 62.8 ml/min Est GFR (Non-Af Amer) 54.1 ml/min BUN/Creatinine Ratio 12.2 (10-20) Glucose 95 (70-99) mg/dl Lactate (0.4-2.0) mmol/L Calcium 9.2 (8.5-10.1) mg/dl Magnesium 2.2 (1.8-2.4) mg/dl Total Bilirubin 0.5 (0.2-1) mg/dl AST 16 (15-37) U/L ALT 18 (12-78) U/L Alkaline Phosphatase 115 (45-117) U/L Troponin I < 0.015 (0-0.045) ng/ml Total Protein 7.9 (6.4-8.2) gm/dl Albumin 3.4 (3.4-5.0) gm/dl Globulin 4.5 H (2.5-4.0) gm/dl Albumin/Globulin Ratio 0.8 L (0.9-2) Procalcitonin (0-0.5) ng/ml COVID-19 Eval Order SARS-CoV-2 (PCR) (Negative) 08/07/21 08/07/21 08/07/21 Range/Units 07:48 07:48 10:02 WBC (4.8-10.8) K/uL RBC (4.2-5.4) M/uL Hgb (12.0-16.0) g/dL Hct (37-47) % MCV (80-100) fL MCH (25-34) pg MCHC (32-36) g/dL RDW Std Deviation (36.4-46.3) fL RDW Coeff of Marlon (11.5-14.5) % Plt Count (130-400) K/uL MPV (7.4-10.4) fL Immature Gran % (Auto) % Neut % (Auto) % Lymph % (Auto) % [place] % (Auto) % Eos % (Auto) % Baso % (Auto) % Neut # (Auto) (1.4-6.5) K/uL Lymph # (Auto) (1.2-3.4) K/uL [place] # (Auto) (0.11-0.59) K/uL Eos # (Auto) (0-0.5) K/uL Baso # (Auto) (0-0.2) K/uL Immature Gran # (Auto) (0.00-0.02) K/uL PT (9.0-12.0) Seconds INR (0.9-1.1) APTT (21.0-31.0) Seconds PTT Ratio Sodium (136-145) mmol/L Potassium (3.5-5.1) mmol/L Chloride (98-107) mmol/L Carbon Dioxide (21-32) mmol/L Anion Gap (3-11) BUN (7-18) mg/dl Creatinine (0.6-1.2) mg/dl Est Cr Clr Drug Dosing Est GFR ( Amer) ml/min Est GFR (Non-Af Amer) ml/min BUN/Creatinine Ratio (10-20) Glucose (70-99) mg/dl Lactate 2.3 H* 1.4 (0.4-2.0) mmol/L Calcium (8.5-10.1) mg/dl Magnesium (1.8-2.4) mg/dl Total Bilirubin (0.2-1) mg/dl AST (15-37) U/L ALT (12-78) U/L Alkaline Phosphatase (45-117) U/L Troponin I (0-0.045) ng/ml Total Protein (6.4-8.2) gm/dl Albumin (3.4-5.0) gm/dl Globulin (2.5-4.0) gm/dl Albumin/Globulin Ratio (0.9-2) Procalcitonin < 0.05 (0-0.5) ng/ml COVID-19 Eval Order SARS-CoV-2 (PCR) (Negative) 08/07/21 08/07/21 Range/Units 10:18 10:18 WBC (4.8-10.8) K/uL RBC (4.2-5.4) M/uL Hgb (12.0-16.0) g/dL Hct (37-47) % MCV (80-100) fL MCH (25-34) pg MCHC (32-36) g/dL RDW Std Deviation (36.4-46.3) fL RDW Coeff of Marlon (11.5-14.5) % Plt Count (130-400) K/uL MPV (7.4-10.4) fL Immature Gran % (Auto) % Neut % (Auto) % Lymph % (Auto) % [place] % (Auto) % Eos % (Auto) % Baso % (Auto) % Neut # (Auto) (1.4-6.5) K/uL Lymph # (Auto) (1.2-3.4) K/uL [place] # (Auto) (0.11-0.59) K/uL Eos # (Auto) (0-0.5) K/uL Baso # (Auto) (0-0.2) K/uL Immature Gran # (Auto) (0.00-0.02) K/uL PT (9.0-12.0) Seconds INR (0.9-1.1) APTT (21.0-31.0) Seconds PTT Ratio Sodium (136-145) mmol/L Potassium (3.5-5.1) mmol/L Chloride (98-107) mmol/L Carbon Dioxide (21-32) mmol/L Anion Gap (3-11) BUN (7-18) mg/dl Creatinine (0.6-1.2) mg/dl Est Cr Clr Drug Dosing Est GFR ( Amer) ml/min Est GFR (Non-Af Amer) ml/min BUN/Creatinine Ratio (10-20) Glucose (70-99) mg/dl Lactate (0.4-2.0) mmol/L Calcium (8.5-10.1) mg/dl Magnesium (1.8-2.4) mg/dl Total Bilirubin (0.2-1) mg/dl AST (15-37) U/L ALT (12-78) U/L Alkaline Phosphatase (45-117) U/L Troponin I (0-0.045) ng/ml Total Protein (6.4-8.2) gm/dl Albumin (3.4-5.0) gm/dl Globulin (2.5-4.0) gm/dl Albumin/Globulin Ratio (0.9-2) Procalcitonin (0-0.5) ng/ml COVID-19 Eval Order Covid19 at [facility] SARS-CoV-2 (PCR) NEGATIVE (Negative) Imaging Data Attestation: I personally reviewed and interpreted this imaging study as follows: My Impression: Chest x-rayno acute infiltrate, failure, pneumothorax seen Radiologist's Impression: Duplex Scan Lower Extremity Artery 08/07/21 07:37 US arterial duplex LE RT HISTORY: 61 years-old Female s/p groin cth, eval for pseudo aner/abscess f ollow-up study in a patient with a lesion of the right inguinal distribution with recent arterial catheterization. COMPARISON: Arterial Doppler study 08/01/2021 TECHNIQUE: Multiple real-time sonographic images of the right lower extremity arterial structures were obtained assessing grayscale appearance, color and spectral flow FINDINGS: No pseudoaneurysm identified. Triphasic waveforms are noted within the right common femoral, superficial and profunda femoris arteries. Superficial subcutaneous hypoechoic collection extending to the cutaneous surface measures 4.3 x 1.5 x 1.6 cm, previously measured at approximately 2.6 x 1.1 x 2.8 cm. Difference in measurement is partially attributed to measurement technique. The collection appears generally stable. IMPRESSION: Hypoechoic irregular collection within the superficial subcutaneous tissues suggestive of hematoma is redemonstrated and not significantly changed in size from comparison. ACT 112: Negative or not required by law. The above report was generated using voice recognition software. It may contain grammatical, syntax or spelling errors. Electronically signed by: Saman Anderson M.D. 08/07/2021 9:20 AM Chest X-Ray 08/07/21 09:47 XR chest 1V portable HISTORY: 61 years-old Female sob acute shortness of breath COMPARISON: Chest radiograph 05/31/2021 TECHNIQUE: Portable AP view of the chest FINDINGS: The cardiomediastinal and hilar silhouettes are unchanged. Left subclavian pacer. Calcified plaque of the thoracic aorta. No pneumothorax, pleural effusion, airspace consolidation or overt pulmonary edema. The bones of the chest appear grossly intact. IMPRESSION: No acute process. ACT 112: Negative or not required by law. The above report was generated using voice recognition software. It may contain grammatical, syntax or spelling errors. Electronically signed by: Saman Anderson M.D. 08/07/2021 10:34 AM ECG Data Attestation: I personally reviewed and interpreted this ECG as follows: Indication: + weakness Rate (beats per minute): 65 Rhythm: + atrial fibrillation and + other (Intermittently paced rhythm) ECG Intervals/blocks: + IVCD and + Normal QT ECG [place]: + Normal ECG ST segments: + Normal ST segments ECG Findings: no PACs or no PVCs Comparison ECG Date: from (08/01/21) Change: no significant change MDM Narrative This patient comes in as described above. 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 IV access was established blood work was obtained. She did have a sepsis type work-up she is afebrile here and has stable vital signs however she does have complaint of groin pain. She has scab/eschar there that is about a centimeter there is some yellowish drainage along the edge but no fluctuance or purulence does not appear to be cellulitic she is neurologically neurovascular intact. White count is mildly elevated. Lactic acid initially was mildly elevated 2.3 however this cleared. She has no significant acute electrolyte or metabolic abnormalities. I did do an ultrasound and she continues to have a fluid collection which is thought to be hematoma however given the fact that she has an elevated white count and lactic acid it could also be infectious. She was given IV Rocephin 2 g as she has been on doxycycline. Blood cultures were obtained and are pending. I did discuss the case with Dr. Felix her cognos analyst who feels that given her presentation and her repeated visit that she should be admitted for antibiotics and further monitoring. I did consult the [facility] hospitalist to see her in the ER for these measures. Continuous cardiac monitoring: Orders placed in EMR for continuous cardiac monitoring. Upon my interpretation, the patient noted to be A. 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 Discharge Plan Visit Data Chief Complaint: Infection, Wound Stated Complaint: GROIN INFECTION STATUS POST SURGERY ED Provider: Sherif Ricketts Discharge Problem: Sepsis, Post-operative infection, Pacemaker, Chronic atrial fibrillation, longterm (current) use of anticoagulants Patient Disposition: Admitted As Inpatient Discharge Instructions Interventions: ED Discharge Assessment Last Done: 08/07/21 14:13 Discharge Problem: Sepsis Qualifiers: Sepsis type: sepsis due to unspecified organism Sepsis acute organ dysfunction status: unspecified Qualified Code(s): A41.9 - Sepsis, unspecified organism Post-operative infection Qualifiers: Encounter type: subsequent encounter Postoperative infection type: unspecified type Qualified Code(s): T81.40XD - Infection following a procedure, unspecified, subsequent encounter
[2021-08-07 07:59] LABS: Basophils # (auto) 0.07 K/uL (0-0.2); Basophils % (auto) 0.6 %; Eosinophils # (auto) 0.23 K/uL (0-0.5); Eosinophils % (auto) 1.8 %; Hematocrit (blood only) 39.8 % (37-47); Hemoglobin 13.3 g/dL (12.0-16.0); Immature Granulocytes # (auto) 0.06 K/uL (0.00-0.02); Immature Granulocytes % (auto) 0.5 %; Lymphocytes # (auto) 1.86 K/uL (1.2-3.4); Lymphocytes % (auto) 14.7 %; Mean Corpuscular Hemoglobin 30.1 pg (25-34); Mean Corpuscular Hgb Conc 33.4 g/dL (32-36); Mean Platelet Volume 11.6 fL (7.4-10.4); Monocytes # (auto) 0.97 K/uL (0.11-0.59); Monocytes % (auto) 7.7 %; Neutrophils # (auto) 9.44 K/uL (1.4-6.5); Neutrophils % (auto) 74.7 %; Platelet Count 221 K/uL (130-400); RDW Coefficient of Variation 16.2 % (11.5-14.5); RDW Standard Deviation 52.7 fL (36.4-46.3); Red Blood Count 4.42 M/uL (4.2-5.4); White Blood Count 12.63 K/uL (4.8-10.8)
[2021-08-07 08:13] LABS: INR 1.2 (0.9-1.1); Partial Thromboplastin Ratio 1.4; Partial Thromboplastin Time 37.6 Seconds (21.0-31.0); Prothrombin Time 12.2 Seconds (9.0-12.0)
[2021-08-07 08:18] LABS: Alanine Aminotransferase 18 U/L (12-78); Albumin Level 3.4 gm/dl (3.4-5.0); Aspartate Aminotransferase 16 U/L (15-37); BUN Creatinine Ratio 12.2 (10-20); Blood Urea Nitrogen 13 mg/dl (7-18); Calcium 9.2 mg/dl (8.5-10.1); Carbon Dioxide 23 mmol/L (21-32); Chloride 100 mmol/L (98-107); Est GFR (African American) 62.8 ml/min; Est GFR (Non-African American) 54.1 ml/min; Glucose 95 mg/dl (70-99); Magnesium 2.2 mg/dl (1.8-2.4); Potassium 4.5 mmol/L (3.5-5.1); Sodium 130 mmol/L (136-145)
[2021-08-07 08:25] LABS: Albumin Globulin Ratio 0.8 (0.9-2); Alkaline Phosphatase 115 U/L (45-117); Bilirubin,Total 0.5 mg/dl (0.2-1); Globulin 4.5 gm/dl (2.5-4.0); Total Protein 7.9 gm/dl (6.4-8.2); Troponin I < 0.015 ng/ml (0-0.045)
--- NOTE | 2021-08-07 09:22 | Ultrasound Report ---
US arterial duplex LE RT HISTORY: 61 years-old Female s/p groin cth, eval for pseudo aner/abscess follow-up study in a patien t with a lesion of the right inguinal distribution with recent arterial catheterization. COMPARISON: Arterial Doppler study 08/01/2021 TECHNIQUE: Multiple real-time sonographic images of the right lower extremity arterial structures wer e obtained assessing grayscale appearance, color and spectral flow FINDINGS: No pseudoaneurysm identified. Triphasic waveforms are noted within the right common femoral, superfic ial and profunda femoris arteries. Superficial subcutaneous hypoechoic collection extending to the cu taneous surface measures 4.3 x 1.5 x 1.6 cm, previously measured at approximately 2.6 x 1.1 x 2.8 cm. Difference in measurement is partially attributed to measurement technique. The collection appears g enerally stable. IMPRESSION: Hypoechoic irregular collection within the superficial subcutaneous tissues suggestive of hematoma is redemonstrated and not significantly changed in size from comparison. ACT 112: Negative or not required by law. The above report was generated using voice recognition software. It may contain grammatical, syntax o r spelling errors. Electronically signed by: Saman Anderson M.D. 08/07/2021 9:20 AM
[2021-08-07] MEDS ORDERED: cefTRIAXone SODIUM 2,000 MG/70 ML BAG IV STA (09:41)
[2021-08-07] MEDS ORDERED: MoRPHine SULFATE 2 MG/ML CARP IV STA (09:47)
[2021-08-07] MEDS ORDERED: ONDANSETRON INJ 2 MG/ML 2 ML VIAL IV STA (09:47)
[2021-08-07] MEDS ORDERED: SODIUM CHLORIDE 0.9% 1000ML 250 ML IV ONE (09:47)
[2021-08-07] MEDS ORDERED: diphenhydrAMINE 50 MG/ML VIAL ONE (10:13)
--- NOTE | 2021-08-07 10:20 | History & Physical Report ---
Date of Service August 07, 2021 Assessment & Plan (1) Post-operative infection: Plan: Continue ceftriaxone. will add vancomycin given history of MRSA. Wound culture if significant drainage. Follow up blood cultures. Wound care nurse If not improving consider surgery consult (2) Chronic atrial fibrillation: Plan: Continue anticoagulation with Xarelto Rate controlled with metoprolol (3) COPD (chronic obstructive pulmonary disease): Plan: On no maintenance inhalers for this. No acute exacerbation (4) HTN (hypertension): Plan: Continue her routine metoprolol, furosemide and spironolactone dosing (5) Chronic pancreatitis: Plan: Continue Creon (6) GERD (gastroesophageal reflux disease): Plan: Continue pantoprazole (7) Insomnia: Plan: Continue Ambien (8) Stump neuralgia: Plan: Continue Lyrica and amitriptyline Plan: VTE Prophylaxis - Xarelto 20mg HS Diet - heart healthy, low Na Disposition - observation status to med/tele Admission and Anticipated Discharge Date Admission Date: August 07, 2021 History of Present Illness Chief Complaint: Right groin infection Primary Care Provider: Janie Back PA-C Anisha Garcia is a 61 year old female who comes to the ER with pain and swelling over her right groin. She underwent cardiac catheterization through both groins approximately 1 week ago, this procedure to fix her mitral valve was reportedly not successful. She was started on doxycycline 3 days ago but it has been getting progressively worse since then with increased swelling and pain. Main reason she came in today was due to yellow liquid started coming out from the wound. No fever or chills. Otherwise she feels at her baseline regarding her breathing. ER Physician discussed with her lens blank gauger and recommended admission for intravenous antibiotics at this time. Allergies Allergy/AdvReac Type Severity Reaction Status Date / Time acetaminophen Allergy Severe LIVER Verified 08/07/21 09:04 DAMAGE-DUE TO FAILURE adhesive Allergy Severe SEVERE Verified 08/07/21 09:04 SKIN IRRITATION amoxicillin Allergy Severe LIVER Verified 08/07/21 09:04 FAILURE clavulanic acid Allergy Severe LIVER Verified 08/07/21 09:04 FAILURE guanfacine Allergy Intermediate BP PROBLEMS Verified 08/07/21 09:04 nifedipine Allergy Intermediate BP PROBLEMS Verified 08/07/21 09:04 Home Medications Medication Instructions Recorded Confirmed Type pantoprazole 40 mg tablet,delayed 40 mg PO QAM 07/18/18 08/07/21 History release (Protonix) zolpidem 10 mg tablet (Ambien) 10 mg PO HS 07/18/18 08/07/21 History rivaroxaban 20 mg tablet (Xarelto) 20 mg PO HS 12/20/18 08/07/21 History atorvastatin 80 mg tablet (Lipitor) 80 mg PO HS tab 06/06/19 08/07/21 History lipase 3,000-protease 1 cap PO TIDM 07/31/19 08/07/21 History 9,500-amylase 15,000 unit capsule, delayed rel (Creon) triamcinolone acetonide 0.1 % 1 appln TOP DAILY PRN 10/09/19 08/07/21 History topical cream aspirin 81 mg tablet,delayed 81 mg PO QAM 12/19/19 08/07/21 History release (Aspirin Low Dose) diclofenac sodium 1 % topical gel 2 g TOPICAL UD 05/13/20 08/07/21 History (Voltaren Arthritis Pain) amitriptyline 25 mg tablet 25 mg PO HS 07/17/20 08/07/21 History ondansetron 4 mg disintegrating 4 mg PO Q6 PRN #14 tab 07/24/20 08/07/21 Rx tablet pregabalin 300 mg capsule (Lyrica) 300 mg PO BID 07/24/20 08/07/21 History cevimeline 30 mg capsule (Evoxac) 1 cap PO TID 01/08/21 08/07/21 History oxycodone 5 mg tablet (Roxicodone) 5 mg PO Q6H PRN 04/22/21 08/07/21 History metoprolol tartrate 50 mg tablet 50 mg PO BID #0 tab 04/26/21 08/07/21 Rx (Lopressor) furosemide 40 mg tablet (Lasix) 40 mg PO QAM #30 tab 05/31/21 08/07/21 Rx spironolactone 25 mg tablet 12.5 mg PO BID tab 06/13/21 08/07/21 History (Aldactone) doxycycline hyclate 100 mg tablet 100 mg PO BID 10 Days #20 tab 08/01/21 08/07/21 Rx Past Med/Surg History Medical History Anxiety and depression Arthritis DVT (deep venous thrombosis) OVER 40 YEARS AGO Dyslipidemia Dysphagia reason for upcoming EGD GERD (gastroesophageal reflux disease) Hx of gastric ulcer Hx of migraines Hx of pancreatitis Chronic Neuropathy On anticoagulant therapy Pacemaker IMPLANTED 07/2019 (DR. FELIPE)- [employer]TRON[employer] >WILL BRING CARD. PVD (peripheral vascular disease) Sinus node dysfunction S/p pacemaker Surgical History H/O vascular surgery "bilateral femoral endarterectomy with iliac stent 10/02/2016 Dr. Dharmesh Omalley, [facility]" History of amputation REVISION OF AMPUTATION LLE History of appendectomy History of colonoscopy History of tooth extraction S/P angiogram of extremity right lower leg Status post below knee amputation of left lower extremity Status post ORIF of fracture of ankle "12/18/16- ORIF closed displaced trimalleolar left ankle fracture; Dr. Fischer" Family History Unknown No problems noted. Father Family history of diabetes mellitus Other No family history of adverse response to anesthesia Social History Smoking Status: Current every day smoker Tobacco Type: Cigarettes Cigarettes Per Day: 10; Second Hand Exposure: Yes; Hx Alcohol Use: No Hx Substance Use: No Preferred Language: Ivorian Communication Ability: Effective Cable Dispatcher Required: No Beliefs That Will Affect Care: None marital status: Current Living Situation: Spouse current occupation: Retired Other Information That Helps Us Care for You: No Feels Safe at Home: Yes Safety Concerns: Feels Safe At This Time Assistive Devices: Cane, Denture - Upper, Glasses, Prosthesis, Walker and Wheelchair Review of Systems Review of Systems: All systems reviewed & are unremarkable except as noted in HPI & below Physical Exam Constitutional: WD/WN, vitals as above Eyes: + anicteric sclerae; normal pupil size Respiratory: normal respiratory effort, lungs clear to auscultation Cardiovascular: Rate/Rhythm: regular rate and + irregularly irregular Heart Sounds: no murmur Extremities: normal capillary refill and + pedal edema; no calf tenderness Gastrointestinal (Abdomen): normal bowel sounds, soft, nontender, no hepatosplenomegaly Musculoskeletal: no cyanosis or clubbing, extremities motor strength 5/5 Skin: Approx 3x2cm open skin area covered in dark red scab without any discharge, exquisitely tender to touch. No surrounding erythema or warmth, Normal distal pulses. Left groin insertion site with mild bruising only. Neurologic: moves all extremities and awake; no focal motor deficits (no lateralizing deficit) and not confused Psychiatric: A+Ox3, euthymic affect Results & Data Results & Data ([facility]) Vital Signs (Past 12 Hours) Vital Signs Temp Pulse Pulse Resp BP BP Pulse Ox 08/07/21 10:11 72 16 130/88 100 08/07/21 08:59 74 16 126/74 99 08/07/21 08:01 99 08/07/21 08:00 72 18 106/87 99 08/07/21 07:59 72 18 99 08/07/21 07:12 36.5 C 93 H 18 153/91 H 95 Laboratory Results Abnormal lab results 08/07/21 08/07/21 08/07/21 Range/Units 07:48 07:48 07:48 WBC 12.63 H (4.8-10.8) K/uL RDW Std Deviation 52.7 H (36.4-46.3) fL RDW Coeff of Marlon 16.2 H (11.5-14.5) % MPV 11.6 H (7.4-10.4) fL Neut # (Auto) 9.44 H (1.4-6.5) K/uL Crane # (Auto) 0.97 H (0.11-0.59) K/uL Immature Gran # (Auto) 0.06 H (0.00-0.02) K/uL PT 12.2 H (9.0-12.0) Seconds INR 1.2 H (0.9-1.1) APTT 37.6 H (21.0-31.0) Seconds Sodium 130 L (136-145) mmol/L Lactate (0.4-2.0) mmol/L Globulin 4.5 H (2.5-4.0) gm/dl Albumin/Globulin Ratio 0.8 L (0.9-2) 08/07/21 Range/Units 07:48 WBC (4.8-10.8) K/uL RDW Std Deviation (36.4-46.3) fL RDW Coeff of Marlon (11.5-14.5) % MPV (7.4-10.4) fL Neut # (Auto) (1.4-6.5) K/uL Crane # (Auto) (0.11-0.59) K/uL Immature Gran # (Auto) (0.00-0.02) K/uL PT (9.0-12.0) Seconds INR (0.9-1.1) APTT (21.0-31.0) Seconds Sodium (136-145) mmol/L Lactate 2.3 H* (0.4-2.0) mmol/L Globulin (2.5-4.0) gm/dl Albumin/Globulin Ratio (0.9-2) Diagnostic Findings US arterial duplex LE RT HISTORY: 61 years-old Female s/p groin cth, eval for pseudo aner/abscess follow-up study in a patient with a lesion of the right inguinal distribution with recent arterial catheterization. COMPARISON: Arterial Doppler study 08/01/2021 TECHNIQUE: Multiple real-time sonographic images of the right lower extremity arterial structures were obtained assessing grayscale appearance, color and spectral flow FINDINGS: No pseudoaneurysm identified. Triphasic waveforms are noted within the right com mon femoral, superficial and profunda femoris arteries. Superficial subcutaneous hypoechoic collection extending to the cutaneous surface measures 4.3 x 1.5 x 1.6 cm, previously measured at approximately 2.6 x 1.1 x 2.8 cm. Difference in measurement is partially attributed to measurement technique. The collection appears generally stable. IMPRESSION: Hypoechoic irregular collection within the superficial subcutaneous tissues suggestive of hematoma is redemonstrated and not significantly changed in size from comparison. Medications Administered ER Medications Given: Ceftriaxone 2g IV NSS 250ml bolus Morphine 2mg IV Ondansetron 4mg IV Diphenhydramine 25mg IV ECG Rate (beats per minute): 65 Rhythm: atrial fibrillation Findings: + nonspecific-ST abn Comparison ECG Date: from (August 01, 2021) Change: no significant change Code Status & VTE Plan Code Status Full VTE Prophylaxis Plan VTE Prophylaxis will be ordered: Yes PG Care Time/CCT Total # of Minutes Spent Total Time Spent with Patient: Total time spent is greater than 50% in coordination of care (as documented) at patient's floor/unit and/or counseling patient: Coding Level of Care Code 90304 Initial Inpt Care Lvl 2 Diagnoses Post-operative infection T81.40XD Encounter type: subsequent encounter Postoperative infection type: unspecified type Chronic atrial fibrillation I48.20 COPD (chronic obstructive pulmonary disease) J44.9 COPD type: unspecified COPD HTN (hypertension) I10 Chronic pancreatitis K86.0 Pancreatitis type: alcohol induced GERD (gastroesophageal reflux disease) K21.9 Esophagitis presence: esophagitis presence not specified Insomnia G47.00 Insomnia type: unspecified Stump neuralgia M79.2 (1) Post-operative infection Encounter type: subsequent encounter Postoperative infection type: unspecified type Qualified Code(s): T81.40XD - Infection following a procedure, unspecified, subsequent encounter (2) COPD (chronic obstructive pulmonary disease) COPD type: unspecified COPD Qualified Code(s): J44.9 - Chronic obstructive pulmonary disease, unspecified (3) Chronic pancreatitis Pancreatitis type: alcohol induced Qualified Code(s): K86.0 - Alcohol-induced chronic pancreatitis (4) GERD (gastroesophageal reflux disease) Esophagitis presence: esophagitis presence not specified Qualified Code(s): K21.9 - Gastro-esophageal reflux disease without esophagitis (5) Insomnia Insomnia type: unspecified Qualified Code(s): G47.00 - Insomnia, unspecified
--- NOTE | 2021-08-07 10:35 | XRay Report ---
XR chest 1V portable HISTORY: 61 years-old Female sob acute shortness of breath COMPARISON: Chest radiograph 05/31/2021 TECHNIQUE: Portable AP view of the chest FINDINGS: The cardiomediastinal and hilar silhouettes are unchanged. Left subclavian pacer. Calcified plaque of the thoracic aorta. No pneumothorax, pleural effusion, airspace consolidation or overt pulmonary marquita ma. The bones of the chest appear grossly intact. IMPRESSION: No acute process. ACT 112: Negative or not required by law. The above report was generated using voice recognition software. It may contain grammatical, syntax o r spelling errors. Electronically signed by: Saman Anderson M.D. 08/07/2021 10:34 AM
[2021-08-07] MEDS ORDERED: HYDROmorphone INJ 1 MG/ML SYRINGE IV STA (11:26)
[2021-08-07] MEDS ORDERED: TRIAMCINOLONE ACET 0.1% CR 15 GM TUBE TOP PRN (15:12)
[2021-08-07] MEDS ORDERED: VANCOMYCIN CONSULT ACTIVE PRN (15:14)
[2021-08-07] MEDS: oxyCODONE HCL IR 5 MG TAB (IMMEDIATE RELEASE) PO PRN ×2 (15:38→19:52)
[2021-08-07] MEDS ORDERED: VANCOMYCIN HCL 1,750 MG in SODIUM CHLORIDE 0.9% 500 ML IV ONE (15:45)
[2021-08-07] MEDS: DICLOFENAC SOD 1% GEL 100 GM TUBE EXT SCH ×2 (16:56→20:24)
[2021-08-07] MEDS: PANCREAZE (LIPASE 4,200U) CAP PO SCH (16:56)
[2021-08-07] MEDS: HYDROmorphone INJ 0.5 MG/0.5 ML SYR IV PRN (17:46)
[2021-08-07] MEDS: PREGABALIN 150 MG CAP PO SCH (20:21)
[2021-08-07] MEDS: ZOLPIDEM TARTRATE 10 MG TAB PO SCH (20:21)
[2021-08-07] MEDS: SPIRONOLACTONE 12.5 MG TAB PO SCH (20:21)
[2021-08-07] MEDS: METOPROLOL TARTRATE 50 MG TAB PO SCH (20:22)
[2021-08-07] MEDS: RIVAROXABAN 20 MG TAB PO SCH (20:22)
[2021-08-07] MEDS: AMITRIPTYLINE HCL 25 MG TAB PO SCH (20:23)
[2021-08-07] MEDS: ATORVASTATIN 40 MG TAB PO SCH (20:24)
--- NOTE | 2021-08-07 21:31 | Pharmacy Report ---
Pharmacy Vanc AUC Short Note - Date of Service August 07, 2021 - Assessment & Plan Assessment 61 year old F receiving vancomycin for empiric treatment for possible sepsis/post op infection. Plan Vancomycin * AUC/SUSANA is the preferred PK/PD target for vancomycin * AUC guided dosing is effective and associated with decreased risk of nephrotoxicity compared to traditional trough targets * Loading dose of 1750 mg x 1 * 1250 mg q18H is predicted to achieve target AUC/SUSANA of 400-600 mg/L.hr and may be associated with a 12 % risk of nephrotoxicity * Trough to be ordered Pharmacy will continue to follow and will adjust dose/frequency as necessary. Thank you.
--- NOTE | 2021-08-07 23:20 | Electrocardiogram Report ---
Test Reason : Blood Pressure : / mmHG Vent. Rate : 065 BPM Atrial Rate : 060 BPM P-R Int : 000 ms QRS Dur : 072 ms QT Int : 360 ms P-R-T Axes : 000 070 010 degrees QTc Int : 374 ms Atrial fibrillation with frequent ventricular-paced complexes Nonspecific T wave abnormality Abnormal ECG When compared with ECG of 01-AUG-2021 13:15, Vent. rate has decreased BY 2 BPM Confirmed by Alex Taylor ([id number]) on 08/07/2021 11:19:45 PM Referred By: ED Confirmed By:Alex Taylor
[2021-08-08] MEDS: oxyCODONE HCL IR 5 MG TAB (IMMEDIATE RELEASE) PO PRN ×3 (01:30→20:16)
[2021-08-08] MEDS: DICLOFENAC SOD 1% GEL 100 GM TUBE EXT SCH ×4 (08:31→20:10)
[2021-08-08] MEDS: ASPIRIN 81 MG ECTAB PO SCH (08:31)
[2021-08-08] MEDS: SPIRONOLACTONE 12.5 MG TAB PO SCH ×2 (08:31→20:13)
[2021-08-08] MEDS: PANCREAZE (LIPASE 4,200U) CAP PO SCH ×3 (08:31→16:59)
[2021-08-08] MEDS: PANTOprazole 40 MG TAB PO SCH (08:31)
[2021-08-08] MEDS: FUROSEMIDE 40 MG TAB PO SCH (08:32)
[2021-08-08] MEDS: METOPROLOL TARTRATE 50 MG TAB PO SCH ×2 (08:32→20:15)
[2021-08-08] MEDS: PREGABALIN 150 MG CAP PO SCH ×2 (08:40→20:13)
[2021-08-08] MEDS: VANCOMYCIN HCL 1,250 MG in SODIUM CHLORIDE 0.9% 250 ML IV SCH (08:40)
[2021-08-08] MEDS: cefTRIAXone SODIUM 2,000 MG in DEXTROSE 5% 50 ML IV SCH (10:54)
[2021-08-08] MEDS: HYDROmorphone INJ 0.5 MG/0.5 ML SYR IV PRN ×2 (10:57→17:09)
[2021-08-08] MEDS ORDERED: ALBUT/IPRATROP 3MG/0.5MG NEB 3 ML VIAL NEB PRN (11:27)
--- NOTE | 2021-08-08 11:27 | Hospitalist Progress Note ---
Date of Service August 08, 2021 Assessment & Plan (1) Post-operative infection: Plan: Patient had a cardiac cath a couple of weeks ago The groin access site started draining purulent materials Cultures have been obtained Dressing clean Continue empiric ceftriaxone and vancomycin given history of MRSA. (2) Chronic atrial fibrillation: Plan: Continue anticoagulation with Xarelto Rate controlled with metoprolol (3) COPD (chronic obstructive pulmonary disease): Plan: No wheeze on exam will start PRN Duonebs (4) HTN (hypertension): Plan: Continue her routine metoprolol, furosemide and spironolactone dosing BP under good control (5) Chronic pancreatitis: Plan: Continue Creon (6) GERD (gastroesophageal reflux disease): Plan: Continue pantoprazole (7) Insomnia: Plan: Continue Ambien (8) Stump neuralgia: Plan: Continue Lyrica and amitriptyline Plan: VTE Prophylaxis - Xarelto 20mg HS Diet - heart healthy, low Na Disposition - observation status to med/tele Admission and Anticipated Discharge Date Admission Date: August 07, 2021 Subjective Patient seen and examined today, no new complaints Review of Systems Review of Systems: All systems reviewed are negative, apart from the ones contained in the history. Physical Exam Physical Exam: The patient is awake, alert and oriented 3, well developed and well nourished, normocephalic and atraumatic, lying in bed and in no acute distress. HEENT--PERRL, EOMI, mucous membranes and oropharynx mildly dry Neck--supple. No JVD. No bruits. Thyroid normal, trachea midline, no adenopathy. Heart--normal S1 and S2. No murmurs, rubs or gallops. Lungs--clear bilaterally, no respiratory distress, no accessory muscle use. Abdomen--normal bowel sounds and soft. Mild epigastric and left sided abdominal pain Extremities--Left BKA, right groin wound Dermatologic--normal skin turgor, normal color, no abnormal lymph nodes, no rash. Neurologic--cranial nerves II through XII grossly intact. Rheumatologic--normal range of motion. Psychiatric--normal affect. Results & Data Results & Data ([facility]) Vital Signs (Past 12 Hours) Vital Signs Temp Pulse Pulse Resp BP BP Pulse Ox 08/08/21 11:19 98.2 F 71 16 108/78 94 08/08/21 10:06 81 11/12/21 07:21 97.9 F 76 18 97/66 L 96 08/08/21 05:04 86 08/08/21 04:15 98.4 F 93 H 18 111/73 95 Laboratory Results Laboratory Results - last 24 hr 08/07/21 10:18 SARS-CoV-2 (PCR) NEGATIVE PG Care Time/CCT Total # of Minutes Spent Total Time Spent with Patient: Total time spent is greater than 50% in coordination of care (as documented) at patient's floor/unit and/or counseling patient: Coding Level of Care Code 85107 Subseq Hosp Care Lvl 2 Diagnoses Post-operative infection T81.40XD Encounter type: subsequent encounter Postoperative infection type: unspecified type Chronic atrial fibrillation I48.20 COPD (chronic obstructive pulmonary disease) J44.9 COPD type: unspecified COPD HTN (hypertension) I10 Chronic pancreatitis K86.0 Pancreatitis type: alcohol induced GERD (gastroesophageal reflux disease) K21.9 Esophagitis presence: esophagitis presence not specified Insomnia G47.00 Insomnia type: unspecified Stump neuralgia M79.2 (1) Post-operative infection Encounter type: subsequent encounter Postoperative infection type: unspecified type Qualified Code(s): T81.40XD - Infection following a procedure, unspecified, subsequent encounter (2) COPD (chronic obstructive pulmonary disease) COPD type: unspecified COPD Qualified Code(s): J44.9 - Chronic obstructive pulmonary disease, unspecified (3) Chronic pancreatitis Pancreatitis type: alcohol induced Qualified Code(s): K86.0 - Alcohol-induced chronic pancreatitis (4) GERD (gastroesophageal reflux disease) Esophagitis presence: esophagitis presence not specified Qualified Code(s): K21.9 - Gastro-esophageal reflux disease without esophagitis (5) Insomnia Insomnia type: unspecified Qualified Code(s): G47.00 - Insomnia, unspecified
[2021-08-08] MEDS: ZOLPIDEM TARTRATE 10 MG TAB PO SCH (20:13)
[2021-08-08] MEDS: RIVAROXABAN 20 MG TAB PO SCH (20:14)
[2021-08-08] MEDS: ATORVASTATIN 40 MG TAB PO SCH (20:14)
[2021-08-08] MEDS: AMITRIPTYLINE HCL 25 MG TAB PO SCH (20:14)
[2021-08-09] MEDS: VANCOMYCIN HCL 1,250 MG in SODIUM CHLORIDE 0.9% 250 ML IV SCH ×2 (02:35→21:53)
[2021-08-09 07:31] LABS: Hematocrit (blood only) 33.8 % (37-47); Hemoglobin 11.2 g/dL (12.0-16.0); Mean Corpuscular Hemoglobin 29.9 pg (25-34); Mean Corpuscular Hgb Conc 33.1 g/dL (32-36); Mean Corpuscular Volume 90.1 fL (80-100); Mean Platelet Volume 10.7 fL (7.4-10.4); Platelet Count 135 K/uL (130-400); RDW Coefficient of Variation 16.2 % (11.5-14.5); RDW Standard Deviation 52.7 fL (36.4-46.3); Red Blood Count 3.75 M/uL (4.2-5.4)
[2021-08-09 07:58] LABS: BUN Creatinine Ratio 17.3 (10-20); Calcium 8.6 mg/dl (8.5-10.1); Creatinine Clr Calc Pharmacy 68.7 ml/min; Est GFR (African American) 77.9 ml/min; Est GFR (Non-African American) 67.2 ml/min; Potassium 3.9 mmol/L (3.5-5.1)
[2021-08-09] MEDS: PANCREAZE (LIPASE 4,200U) CAP PO SCH ×3 (08:28→17:02)
[2021-08-09] MEDS: PANTOprazole 40 MG TAB PO SCH (08:30)
[2021-08-09] MEDS: SPIRONOLACTONE 12.5 MG TAB PO SCH ×2 (08:30→21:05)
[2021-08-09] MEDS: ASPIRIN 81 MG ECTAB PO SCH (08:31)
[2021-08-09] MEDS: FUROSEMIDE 40 MG TAB PO SCH (08:31)
[2021-08-09] MEDS: DICLOFENAC SOD 1% GEL 100 GM TUBE EXT SCH ×4 (08:46→20:57)
[2021-08-09] MEDS: PREGABALIN 150 MG CAP PO SCH ×2 (08:54→21:02)
[2021-08-09] MEDS: oxyCODONE HCL IR 5 MG TAB (IMMEDIATE RELEASE) PO PRN ×3 (08:55→18:44)
[2021-08-09] MEDS: METOPROLOL TARTRATE 50 MG TAB PO SCH ×2 (09:05→21:04)
[2021-08-09] MEDS: cefTRIAXone SODIUM 2,000 MG in DEXTROSE 5% 50 ML IV SCH (10:38)
--- NOTE | 2021-08-09 11:19 | Hospitalist Progress Note ---
Date of Service August 09, 2021 Assessment & Plan (1) Post-operative infection: Plan: Patient had a cardiac cath a couple of weeks ago The groin access site started draining purulent materials Cultures have been obtained, no growth in 48 hrs Dressing clean, continue wound dressing Patient still reports subjective chills, although temperature is normal Continue empiric ceftriaxone and vancomycin given history of MRSA. Await cultures (2) Chronic atrial fibrillation: Plan: Continue anticoagulation with Xarelto Rate controlled with metoprolol (3) COPD (chronic obstructive pulmonary disease): Plan: No wheeze on exam will start PRN Duonebs (4) HTN (hypertension): Plan: Continue her routine metoprolol, furosemide and spironolactone dosing BP under good control (5) Chronic pancreatitis: Plan: Continue Creon (6) GERD (gastroesophageal reflux disease): Plan: Continue pantoprazole (7) Insomnia: Plan: Continue Ambien (8) Stump neuralgia: Plan: Continue Lyrica and amitriptyline Plan: VTE Prophylaxis - Xarelto 20mg HS Diet - heart healthy, low Na Disposition - observation status to med/tele Admission and Anticipated Discharge Date Admission Date: August 07, 2021 Subjective Patient seen and examined today, says she feel very weak, with chills, although her temperature is normal Review of Systems Review of Systems: All systems reviewed are negative, apart from the ones contained in the history. Physical Exam Physical Exam: The patient is awake, alert and oriented 3, well developed and well nourished, normocephalic and atraumatic, lying in bed and in no acute distress. HEENT--PERRL, EOMI, mucous membranes and oropharynx mildly dry Neck--supple. No JVD. No bruits. Thyroid normal, trachea midline, no adenopathy. Heart--normal S1 and S2. No murmurs, rubs or gallops. Lungs--clear bilaterally, no respiratory distress, no accessory muscle use. Abdomen--normal bowel sounds and soft. Mild epigastric and left sided abdominal pain Extremities--Left BKA, right groin wound Dermatologic--normal skin turgor, normal color, no abnormal lymph nodes, no rash. Neurologic--cranial nerves II through XII grossly intact. Rheumatologic--normal range of motion. Psychiatric--normal affect. Results & Data Results & Data ([facility]) Vital Signs (Past 12 Hours) Vital Signs Temp Pulse Pulse Pulse Resp BP BP 08/09/21 09:04 75 122/68 08/09/21 08:35 75 101/70 08/09/21 08:06 98.2 F 63 20 104/68 08/09/21 04:00 97.9 F 84 18 117/70 08/09/21 01:40 96 H Pulse Ox 08/09/21 09:04 08/09/21 08:35 08/09/21 08:06 95 08/09/21 04:00 96 08/09/21 01:40 Laboratory Results Laboratory Results - last 24 hr 08/09/21 08/09/21 07:20 07:20 WBC 7.30 RBC 3.75 L Hgb 11.2 L Hct 33.8 L MCV 90.1 MCH 29.9 MCHC 33.1 RDW Std Deviation 52.7 H RDW Coeff of Marlon 16.2 H Plt Count 135 MPV 10.7 H Sodium 130 L Potassium 3.9 Chloride 100 Carbon Dioxide 25 Anion Gap 5.0 BUN 16 Creatinine 0.92 Est Cr Clr Drug Dosing 68.7 Est GFR ( Amer) 77.9 Est GFR (Non-Af Amer) 67.2 BUN/Creatinine Ratio 17.3 Glucose 101 H Calcium 8.6 PG Care Time/CCT Total # of Minutes Spent Total Time Spent with Patient: Total time spent is greater than 50% in coordination of care (as documented) at patient's floor/unit and/or counseling patient: Coding Level of Care Code 05047 Subseq Hosp Care Lvl 2 Diagnoses Post-operative infection T81.40XD Encounter type: subsequent encounter Postoperative infection type: unspecified type Chronic atrial fibrillation I48.20 COPD (chronic obstructive pulmonary disease) J44.9 COPD type: unspecified COPD HTN (hypertension) I10 Chronic pancreatitis K86.0 Pancreatitis type: alcohol induced GERD (gastroesophageal reflux disease) K21.9 Esophagitis presence: esophagitis presence not specified Insomnia G47.00 Insomnia type: unspecified Stump neuralgia M79.2 (1) Post-operative infection Encounter type: subsequent encounter Postoperative infection type: unspecified type Qualified Code(s): T81.40XD - Infection following a procedure, unspecified, subsequent encounter (2) COPD (chronic obstructive pulmonary disease) COPD type: unspecified COPD Qualified Code(s): J44.9 - Chronic obstructive pulmonary disease, unspecified (3) Chronic pancreatitis Pancreatitis type: alcohol induced Qualified Code(s): K86.0 - Alcohol-induced chronic pancreatitis (4) GERD (gastroesophageal reflux disease) Esophagitis presence: esophagitis presence not specified Qualified Code(s): K21.9 - Gastro-esophageal reflux disease without esophagitis (5) Insomnia Insomnia type: unspecified Qualified Code(s): G47.00 - Insomnia, unspecified
[2021-08-09] MEDS ORDERED: FAMOTIDINE 20 MG in SYRINGE 3 ML IV ONE (20:45)
[2021-08-09] MEDS ORDERED: FAMOTIDINE 40 MG TABLET PO ONE (21:02)
[2021-08-09] MEDS: ZOLPIDEM TARTRATE 10 MG TAB PO SCH (21:03)
[2021-08-09] MEDS: ATORVASTATIN 40 MG TAB PO SCH (21:03)
[2021-08-09] MEDS: RIVAROXABAN 20 MG TAB PO SCH (21:03)
[2021-08-09] MEDS: AMITRIPTYLINE HCL 25 MG TAB PO SCH (21:04)
[2021-08-10] MEDS ORDERED: COUGH DROP (SUGAR FREE) LOZ 24 LOZ/1 BOX BUCCAL PRN (04:57)
[2021-08-10] MEDS: DICLOFENAC SOD 1% GEL 100 GM TUBE EXT SCH (08:51)
[2021-08-10] MEDS: METOPROLOL TARTRATE 50 MG TAB PO SCH (08:56)
[2021-08-10] MEDS: SPIRONOLACTONE 12.5 MG TAB PO SCH (08:56)
[2021-08-10] MEDS: PANTOprazole 40 MG TAB PO SCH (08:56)
[2021-08-10] MEDS: FUROSEMIDE 40 MG TAB PO SCH (08:56)
[2021-08-10] MEDS: ASPIRIN 81 MG ECTAB PO SCH (08:57)
[2021-08-10] MEDS: oxyCODONE HCL IR 5 MG TAB (IMMEDIATE RELEASE) PO PRN (08:57)
[2021-08-10] MEDS: PANCREAZE (LIPASE 4,200U) CAP PO SCH ×2 (09:06→12:02)
[2021-08-10 09:56] LABS: Creatinine Clr Calc Pharmacy 73.5 ml/min; Est GFR (African American) 84.5 ml/min; Est GFR (Non-African American) 72.9 ml/min
--- NOTE | 2021-08-10 10:19 | Discharge Summary ---
Date of Service August 10, 2021 Admission HPI Per Admitting Provider Anisha Garcia is a 61 year old female who comes to the ER with pain and swelling over her right groin. She underwent cardiac catheterization through both groins approximately 1 week ago, this procedure to fix her mitral valve was reportedly not successful. She was started on doxycycline 3 days ago but it has been getting progressively worse since then with increased swelling and pain. Main reason she came in today was due to yellow liquid started coming out from the wound. No fever or chills. Otherwise she feels at her baseline regarding her breathing. 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 Principal Diagnosis wound infection Discharge Exam The patient is awake, alert and oriented 3, well developed and well nourished, normocephalic and atraumatic, lying in bed and in no acute distress. HEENT--PERRL, EOMI, mucous membranes and oropharynx mildly dry Neck--supple. No JVD. No bruits. Thyroid normal, trachea midline, no adenopathy. Heart--normal S1 and S2. No murmurs, rubs or gallops. Lungs--clear bilaterally, no respiratory distress, no accessory muscle use. Abdomen--normal bowel sounds and soft. Mild epigastric and left sided abdominal pain Extremities--Left BKA, right groin wound Dermatologic--normal skin turgor, normal color, no abnormal lymph nodes, no rash. Neurologic--cranial nerves II through XII grossly intact. Rheumatologic--normal range of motion. Psychiatric--normal affect. Discharge Data Allergies Allergy/AdvReac Type Severity Reaction Status Date / Time acetaminophen Allergy Severe LIVER Verified 08/07/21 09:04 DAMAGE-DUE TO FAILURE adhesive Allergy Severe SEVERE Verified 08/07/21 09:04 SKIN IRRITATION amoxicillin Allergy Severe LIVER Verified 08/07/21 09:04 FAILURE clavulanic acid Allergy Severe LIVER Verified 08/07/21 09:04 FAILURE guanfacine Allergy Intermediate BP PROBLEMS Verified 08/07/21 09:04 nifedipine Allergy Intermediate BP PROBLEMS Verified 08/07/21 09:04 Consultations 08/07/21 09:49 ED Decision to Admit Stat Ordered Studies 08/07/21 07:37 US arterial duplex LE RT Stat Hospital Course (1) Post-operative infection: Patient had a cardiac cath a couple of weeks ago The groin access site started draining purulent materials Cultures have been obtained, no growth in 48 hrs Dressing clean, continue wound dressing Patient still reports subjective chills, although temperature is normal Continue empiric ceftriaxone and vancomycin given history of MRSA. 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 VTE Prophylaxis - Xarelto 20mg HS Diet - heart healthy, low Na Disposition - observation status to med/tele Total Time Total Time Spent Total Time Spent (In Minutes): 35 min Discharge Plan Discharge Items Patient Disposition: Home - Self-Care Reason For Visit: celulitis Discharge Diagnosis: wound infection Condition on Discharge: Good Activity: Resume your previous activity Non-emergency contact: Primary Care Provider Call non-emergency contact if: you have any medication questions Follow-up/Referrals: Janie Back PA-C [Primary Care Provider] - Diet: Regular Addtl Attending Provider Instructions: Please make appointment to follow up with your regular PCP Pending Studies at Discharge: No Stand-Alone Forms: My [employer], Smoking Cessation Medications and DC Order Prescriptions: New metronidazole [Flagyl] 375 mg capsule 375 mg PO BID 10 Days Qty: 20 RF: 0 ciprofloxacin HCl 500 mg tablet 500 mg PO BID 5 Days Qty: 10 RF: 0 Continued Xarelto 20 mg tablet 20 mg PO HS RF: 0 Creon 3,000-9,500- 15,000 unit capsule,delayed release(DR/EC) 1 cap PO TIDM RF: 0 triamcinolone acetonide 0.1 % cream 1 appln TOP DAILY PRN (Reason: NEEDED) RF: 0 spironolactone [Aldactone] 25 mg tablet 12.5 mg PO BID RF: 0 amitriptyline 25 mg tablet 25 mg PO HS RF: 0 atorvastatin [Lipitor] 80 mg tablet 80 mg PO HS RF: 0 pantoprazole [Protonix] 40 mg tablet,delayed release (DR/EC) 40 mg PO QAM RF: 0 zolpidem [Ambien] 10 mg tablet 10 mg PO HS RF: 0 diclofenac sodium [Voltaren Arthritis Pain] 1 % gel 2 g TOPICAL UD RF: 0 pregabalin [Lyrica] 300 mg capsule 300 mg PO BID RF: 0 ondansetron 4 mg tablet,disintegrating 4 mg PO Q6 PRN (Reason: nausea and vomiting) Qty: 14 RF: 0 aspirin [Aspirin Low Dose] 81 mg Tablet,Delayed Release (Dr/Ec) 81 mg PO QAM RF: 0 cevimeline [Evoxac] 30 mg Capsule 1 cap PO TID RF: 0 oxycodone [Roxicodone] 5 mg tablet 5 mg PO Q6H PRN (Reason: pain) RF: 0 metoprolol tartrate [Lopressor] 50 mg tablet 50 mg PO BID Qty: 0 RF: 0 doxycycline hyclate 100 mg tablet 100 mg PO BID 10 Days Qty: 20 RF: 0 furosemide [Lasix] 40 mg tablet 40 mg PO QAM Qty: 30 RF: 0 Discharge Orders: Discharge Order (Routine); Ordered 08/10/21 Ordered By: Sandy aHn Admission Data Admit Date/Time: 08/07/21 10:57 Attending Provider: Sandy Han Admit Provider: Giovanny Santos Primary Care Provider: Janie Back Other Providers: Giovanny Santos Coding Level of Care Code D/C DAY MANAGEMENT >30 MINS Diagnoses Post-operative infection T81.40XD Encounter type: subsequent encounter Postoperative infection type: unspecified type Chronic atrial fibrillation I48.20 COPD (chronic obstructive pulmonary disease) J44.9 COPD type: unspecified COPD HTN (hypertension) I10 Chronic pancreatitis K86.0 Pancreatitis type: alcohol induced GERD (gastroesophageal reflux disease) K21.9 Esophagitis presence: esophagitis presence not specified Insomnia G47.00 Insomnia type: unspecified Stump neuralgia M79.2
[2021-08-10] MEDS: PREGABALIN 150 MG CAP PO SCH ×2 (10:49→12:05)
[2021-08-10] MEDS: HYDROmorphone INJ 0.5 MG/0.5 ML SYR IV PRN (11:02)
[2021-08-10] MEDS: cefTRIAXone SODIUM 2,000 MG in DEXTROSE 5% 50 ML IV SCH (11:09)
[2021-08-10] MEDS ORDERED: VANCOMYCIN TROUGH ONE (13:30)
--- NOTE | 2021-08-10 23:29 | Electrocardiogram Report ---
Test Reason : Blood Pressure : / mmHG Vent. Rate : 078 BPM Atrial Rate : 054 BPM P-R Int : 000 ms QRS Dur : 076 ms QT Int : 364 ms P-R-T Axes : 000 062 080 degrees QTc Int : 414 ms Atrial fibrillation Nonspecific ST and T wave abnormality Abnormal ECG When compared with ECG of 07-AUG-2021 07:34, Ventricular paced complexes are no longer present Confirmed by Alex Taylor ([id number]) on 08/10/2021 11:29:00 PM Referred By: REFERRED SELF Confirmed By:Alex Taylor
== END 2021-08-10 13:35 | disposition home or self-care (01) ==
LOC: 2N 07:09 → ED 07:09 → SUATTDRO 10:57 → 2N 14:13

== ENCOUNTER 2021-09-16 16:34 | Inpatient (IN) ==
--- NOTE | 2021-09-16 17:39 | XRay Report ---
XR chest 1V portable CLINICAL HISTORY: Dyspnea COMPARISON STUDY: Chest CT April 02, 2021. Chest radiograph August 07, 2021. FINDINGS: Calcified right lung nodules are incidentally noted. Dual lead left subclavian pacemaker is in place. Cardiomediastinal silhouette is stable. No pneumothorax or pleural effusion is present. Po ssible minimal right lower lung opacity. IMPRESSION: Possible minimal right lower lung opacity. ACT 112: Negative or not required by law. Electronically signed by: Diogo Johnson M.D. 09/16/2021 5:37 PM
[2021-09-16 17:45] LABS: Basophils # (auto) 0.02 K/uL (0-0.2); Basophils % (auto) 0.2 %; Eosinophils # (auto) 0.02 K/uL (0-0.5); Eosinophils % (auto) 0.2 %; Hematocrit (blood only) 37.7 % (37-47); Hemoglobin 12.8 g/dL (12.0-16.0); Immature Granulocytes # (auto) 0.03 K/uL (0.00-0.02); Immature Granulocytes % (auto) 0.3 %; Lymphocytes # (auto) 1.38 K/uL (1.2-3.4); Lymphocytes % (auto) 16.1 %; Mean Corpuscular Hemoglobin 28.8 pg (25-34); Mean Corpuscular Volume 84.9 fL (80-100); Mean Platelet Volume 12.1 fL (7.4-10.4); Monocytes # (auto) 0.36 K/uL (0.11-0.59); Monocytes % (auto) 4.2 %; Neutrophils # (auto) 6.77 K/uL (1.4-6.5); Platelet Count 162 K/uL (130-400); RDW Coefficient of Variation 16.8 % (11.5-14.5); RDW Standard Deviation 52.5 fL (36.4-46.3); Red Blood Count 4.44 M/uL (4.2-5.4); White Blood Count 8.58 K/uL (4.8-10.8)
[2021-09-16 17:59] LABS: Albumin Level 3.5 gm/dl (3.4-5.0); BUN Creatinine Ratio 9.1 (10-20); Blood Urea Nitrogen 9 mg/dl (7-18); Calcium 8.7 mg/dl (8.5-10.1); Carbon Dioxide 27 mmol/L (21-32); Chloride 87 mmol/L (98-107); Est GFR (African American) 67.2 ml/min; Est GFR (Non-African American) 57.9 ml/min; Glucose 98 mg/dl (70-99); Potassium 3.5 mmol/L (3.5-5.1); Sodium 123 mmol/L (136-145)
[2021-09-16 18:22] LABS: Alanine Aminotransferase 29 (12-78); Albumin Globulin Ratio 0.8 (0.9-2); Alkaline Phosphatase 116 U/L (45-117); Aspartate Aminotransferase 35 U/L (15-37); Bilirubin,Total 0.3 mg/dl (0.2-1); Globulin 4.5 gm/dl (2.5-4.0)
[2021-09-16 20:13] LABS: Troponin I < 0.015 ng/ml (0-0.045)
[2021-09-16 21:06] LABS: INR 1.1 (0.9-1.1); Partial Thromboplastin Ratio 1.4; Partial Thromboplastin Time 36.9 Seconds (21.0-31.0); Prothrombin Time 11.1 Seconds (9.0-12.0)
[2021-09-16 21:08] LABS: NT Pro B Type Natriuretic Pept 1746 pg/ml (0-900)
[2021-09-16] MEDS ORDERED: OPTIRAY 320 125ml IV ONE (21:09)
--- NOTE | 2021-09-16 22:14 | Emergency Department Note ---
Impression & Plan Acute hyponatremia, TRISTAN (dyspnea on exertion), COVID-19 ED Provider Note NAME: TIARA MCCALL AGE: 61 SEX: F : 1960 ARRIVES VIA: Walk-In INFORMANT: Patient, ED PROVIDER(S): Mj Dozier DO CHIEF COMPLAINT: Difficulty breathing HPI: The patient is a 61-year-old female who presented to the emergency department for evaluation of difficulty breathing. The patient states that she has had symptoms for approximately 1 month. She has noticed dyspnea on exertion as well as weight gain. She has a history of fluid retention. She saw her cell plasterer recently and was started on a new medication for fluid. She thinks it was bumetanide. The patient has been compliant with her usual medications. She notices swelling in her left leg and her lower extremity prosthesis has not been fitting well. She denies having any chest pain but she is does note upper abdominal pain. She denies having any back pain. She did have a recent fall where she struck the right side of her chest. She states that she has significant difficulty breathing as well as shortness of breath with exertion. She denies having any headaches. She did not strike her head. She denies have any loss of consciousness. She does have a history of tobacco use as well as DVT. She takes Xarelto for atrial fibrillation. ROS: See above HPI for pertinent positives & negatives. A total of 10 systems reviewed and were otherwise negative. PAST MEDICAL HISTORY: See Below PAST SURGICAL HISTORY: See Below FAMILY HISTORY: See Below SOCIAL HISTORY: See Below HOME MEDICATIONS: See Below ALLERGIES: See Below VITALS: See Below PHYSICAL EXAMINATION: GENERAL: Patient is awake alert in no acute distress patient is resting comfortably and showing no signs of anxiety EYES: The conjunctivae are clear. The pupils are round and reactive. EARS, NOSE, MOUTH AND THROAT: The nose is without any evidence of any deformity. Mucous membranes are moist. Tongue is midline. NECK: The neck is nontender and supple. RESPIRATORY: Diminished breath sounds noted throughout. There is no tachypnea or conversational dyspnea. CARDIOVASCULAR: Regular heart sounds were noted to auscultation. No definite murmur was noted. GASTROINTESTINAL: The abdomen is soft. Abdomen is nontender. MUSCULOSKELETAL/EXTREMITIES: There is no evidence of gross deformity full range of motion is noted in the hips and shoulders. Left lower extremity amputation was noted. SKIN: Trace pedal edema was noted in the right lower extremity. NEUROLOGIC: Patient is awake alert and oriented x3 MEDICAL DECISION MAKING: The patient is a 61-year-old female who presented to emergency department for an evaluation of shortness of breath. The patient has a history of volume overload. She was seen recently by her cell plasterer and started on Bumex. The patient states she has been compliant with her usual outpatient medications. She has been having worsening shortness of breath over the last few weeks. She presented today because of worsening symptoms as well as a fall and right-sided chest and abdominal pain. I discussed the patient's laboratory and radiographic studies with her. She was found to have a very low sodium. She is had a history of hyponatremia in the past but this is much lower than her baseline. For this reason I discussed her case with the on-[facility]. They have agreed to evaluate the patient in the emergency department for further management and disposition. Triage Nursing notes reviewed. Prior medical records reviewed Vital Signs: reviewed and remarkable for hypertension. Differential diagnosis: Reactive airway disease, pneumonia, pneumothorax, COPD, CHF, infections, cardiac ischemia, pulmonary embolism, musculoskeletal, gastrointestinal, as well as other pathologies. ER treatment provided: See below Diagnostics interpreted by me: ECG: EKG was obtained in the emergency department. My interpretation is atrial fibrillation at 98 bpm. There was no PVCs noted. Inferior and lateral ST depressions were noted. This was compared to a tracing from August 092020. No changes were noted. Cardiac Monitoring: An order was placed for continuous cardiac monitoring. The monitor shows a rate of 68 bpm with atrial fibrillation. Laboratory studies: As stated above and show below. Imaging studies: See below Consultation(s): I discussed this case with Dr. Adams who is on-call for the [facility]. Past Med/Surg History Medical History Anxiety and depression Arthritis DVT (deep venous thrombosis) 40+ years ago Dyslipidemia GERD (gastroesophageal reflux disease) Hx of gastric ulcer Hx of migraines Hx of pancreatitis Chronic Neuropathy Pacemaker Dual-chamber, implanted 2018 (high grade AVB/sinus node dysfunction), [employer], follows with Dr. Zarate Paroxysmal atrial fibrillation PVD (peripheral vascular disease) Severe mitral regurgitation Per patient, attempt for MitraClip ([facility]) was performed but unsuccessful (07/2021) Surgical History H/O vascular surgery Bilateral femoral endarterectomy with iliac stent (2016) History of amputation REVISION OF AMPUTATION LLE History of appendectomy History of cardiac cath (~04/24/21) @ [facility] with Dr. Carbajal, no stents placed History of colonoscopy History of esophagogastroduodenoscopy (EGD) History of surgery (~07/30/21) Attempt for MitraClip ([facility]) was performed but unsuccessful (07/2021) History of tooth extraction S/P angiogram of extremity right lower leg Status post below knee amputation of left lower extremity Status post ORIF of fracture of ankle ORIF closed displaced trimalleolar left ankle fracture (2016) Family History Unknown No problems noted. Father Family history of diabetes mellitus Other No family history of adverse response to anesthesia Social History Smoking Status: Current every day smoker Tobacco Type: Cigarettes Cigarettes Per Day: 5-15; Second Hand Exposure: No; Hx Alcohol Use: No Hx Substance Use: Yes (medical marijuana) Substance Use Type Other:: Patient has medical marijuana card. Preferred Language: Slovenian Communication Ability: Effective Profile Saw Setup Operator Required: No Beliefs That Will Affect Care: None marital status: Current Living Situation: Spouse current occupation: Retired How many Children do You have: 1 Feels Safe at Home: Yes Assistive Devices: Denture - Upper, Glasses and Wheelchair Allergies Allergies Allergy/AdvReac Type Severity Reaction Status Date / Time adhesive Allergy Severe SEVERE Verified 09/16/21 21:19 SKIN IRRITATION guanfacine Allergy Intermediate BP PROBLEMS Verified 09/16/21 21:19 nifedipine Allergy Intermediate BP PROBLEMS Verified 09/16/21 21:19 acetaminophen AdvReac Severe LIVER Verified 09/16/21 21:19 DAMAGE-DUE TO FAILURE amoxicillin AdvReac Severe LIVER Verified 09/16/21 21:19 FAILURE clavulanic acid AdvReac Severe LIVER Verified 09/16/21 21:19 FAILURE Home Meds Home Medications Medication Instructions Recorded Confirmed pantoprazole 40 mg tablet,delayed 40 mg PO QAM 07/18/18 09/16/21 release (Protonix) zolpidem 10 mg tablet (Ambien) 10 mg PO HS 07/18/18 09/16/21 rivaroxaban 20 mg tablet (Xarelto) 20 mg PO HS 12/20/18 09/16/21 atorvastatin 80 mg tablet (Lipitor) 80 mg PO HS tab 06/06/19 09/16/21 lipase 3,000-protease 1 cap PO TIDM 07/31/19 09/16/21 9,500-amylase 15,000 unit capsule, delayed rel (Creon) triamcinolone acetonide 0.1 % 1 appln TOP DAILY PRN 10/09/19 09/16/21 topical cream aspirin 81 mg tablet,delayed 81 mg PO QAM 12/19/19 09/16/21 release (Aspirin Low Dose) diclofenac sodium 1 % topical gel 2 g TOPICAL UD 05/13/20 09/16/21 (Voltaren Arthritis Pain) amitriptyline 25 mg tablet 25 mg PO HS 07/17/20 09/16/21 cevimeline 30 mg capsule (Evoxac) 1 cap PO TID 01/08/21 09/16/21 oxycodone 5 mg tablet (Roxicodone) 5 mg PO Q6H PRN 04/22/21 09/16/21 spironolactone 25 mg tablet 12.5 mg PO BID tab 06/13/21 09/16/21 (Aldactone) bumetanide 2 mg tablet 2 mg PO BID 09/16/21 09/16/21 Previous Rx's Medication Instructions Recorded ondansetron 4 mg disintegrating 4 mg PO Q6 PRN #14 tab 07/24/20 tablet metoprolol tartrate 50 mg tablet 50 mg PO BID #0 tab 04/26/21 (Lopressor) furosemide 40 mg tablet (Lasix) 40 mg PO QAM #30 tab 05/31/21 Results & Data (ED) Vital Signs Vital Signs - 24 hr 09/16/21 16:39 09/16/21 19:19 09/16/21 20:29 Temperature 36.9 C Temperature Source Skin Pulse Rate 90 86 Pulse Rate [Finger] Respiratory Rate 18 20 Respiratory Effort / Characteristics Respiratory Depth Blood Pressure 138/88 Blood Pressure [Left Arm] Blood Pressure Mean 104 Blood Pressure Mean [Left Arm] Pulse Oximetry 98 100 Oxygen Delivery Method Room Air Nasal Cannula Nasal Cannula Oxygen Flow Rate 3 2 Sepsis Recent Fever Within 48 Hours No Sepsis New/Unexplained Change in Mental Status No Sepsis Action Taken by Nursing No Action Required 09/16/21 20:31 09/16/21 22:34 Temperature Temperature Source Pulse Rate Pulse Rate [Finger] 86 68 Respiratory Rate 20 20 Respiratory Effort / Characteristics Non-Labored Spontaneous Non-Labored Spontaneous Respiratory Depth Normal Normal Blood Pressure Blood Pressure [Left Arm] 150/81 H 142/71 H Blood Pressure Mean Blood Pressure Mean [Left Arm] 104 94 Pulse Oximetry 100 97 Oxygen Delivery Method Nasal Cannula Room Air Oxygen Flow Rate 2 Sepsis Recent Fever Within 48 Hours Sepsis New/Unexplained Change in Mental Status Sepsis Action Taken by Shelter Medications Current Medication List: was personally reviewed by me Laboratory Data Attestation: I reviewed the patient's lab results. Result diagrams: 09/16/21 17:32 09/16/21 17:32 Lab Results 09/16/21 09/16/21 09/16/21 Range/Units 17:32 17:32 17:32 WBC 8.58 (4.8-10.8) K/uL RBC 4.44 (4.2-5.4) M/uL Hgb 12.8 (12.0-16.0) g/dL Hct 37.7 (37-47) % MCV 84.9 (80-100) fL MCH 28.8 (25-34) pg MCHC 34.0 (32-36) g/dL RDW Std Deviation 52.5 H (36.4-46.3) fL RDW Coeff of Marlon 16.8 H (11.5-14.5) % Plt Count 162 (130-400) K/uL MPV 12.1 H (7.4-10.4) fL Immature Gran % (Auto) 0.3 % Neut % (Auto) 79.0 % Lymph % (Auto) 16.1 % Greer % (Auto) 4.2 % Eos % (Auto) 0.2 % Baso % (Auto) 0.2 % Neut # (Auto) 6.77 H (1.4-6.5) K/uL Lymph # (Auto) 1.38 (1.2-3.4) K/uL Greer # (Auto) 0.36 (0.11-0.59) K/uL Eos # (Auto) 0.02 (0-0.5) K/uL Baso # (Auto) 0.02 (0-0.2) K/uL Immature Gran # (Auto) 0.03 H (0.00-0.02) K/uL PT (9.0-12.0) Seconds INR (0.9-1.1) APTT (21.0-31.0) Seconds PTT Ratio Sodium 123 L (136-145) mmol/L Potassium 3.5 (3.5-5.1) mmol/L Chloride 87 L (98-107) mmol/L Carbon Dioxide 27 (21-32) mmol/L Anion Gap 9.0 (3-11) BUN 9 (7-18) mg/dl Creatinine 1.04 (0.6-1.2) mg/dl Est Cr Clr Drug Dosing Not Reportable Est GFR ( Amer) 67.2 ml/min Est GFR (Non-Af Amer) 57.9 ml/min BUN/Creatinine Ratio 9.1 L (10-20) Glucose 98 (70-99) mg/dl Osmolality (280-300) mOsm/kg Calcium 8.7 (8.5-10.1) mg/dl Total Bilirubin 0.3 (0.2-1) mg/dl AST 35 (15-37) U/L ALT 29 (12-78) Alkaline Phosphatase 116 (45-117) U/L Troponin I < 0.015 (0-0.045) ng/ml NT-Pro-B Natriuret Pep 1746 H Cancelled (0-900) pg/ml Total Protein 8.0 (6.4-8.2) gm/dl Albumin 3.5 (3.4-5.0) gm/dl Globulin 4.5 H (2.5-4.0) gm/dl Albumin/Globulin Ratio 0.8 L (0.9-2) Lipase 99 (73-393) U/L SARS-CoV-2 (PCR) (Negative) Influenza Type A (PCR) (Neg) Influenza Type B (PCR) (Neg) RSV (RT-PCR) (Neg) 09/16/21 09/16/21 09/16/21 Range/Units 17:33 17:33 Unknown WBC (4.8-10.8) K/uL RBC (4.2-5.4) M/uL Hgb (12.0-16.0) g/dL Hct (37-47) % MCV (80-100) fL MCH (25-34) pg MCHC (32-36) g/dL RDW Std Deviation (36.4-46.3) fL RDW Coeff of Marlon (11.5-14.5) % Plt Count (130-400) K/uL MPV (7.4-10.4) fL Immature Gran % (Auto) % Neut % (Auto) % Lymph % (Auto) % Greer % (Auto) % Eos % (Auto) % Baso % (Auto) % Neut # (Auto) (1.4-6.5) K/uL Lymph # (Auto) (1.2-3.4) K/uL Greer # (Auto) (0.11-0.59) K/uL Eos # (Auto) (0-0.5) K/uL Baso # (Auto) (0-0.2) K/uL Immature Gran # (Auto) (0.00-0.02) K/uL PT 11.1 (9.0-12.0) Seconds INR 1.1 (0.9-1.1) APTT 36.9 H (21.0-31.0) Seconds PTT Ratio 1.4 Sodium (136-145) mmol/L Potassium (3.5-5.1) mmol/L Chloride (98-107) mmol/L Carbon Dioxide (21-32) mmol/L Anion Gap (3-11) BUN (7-18) mg/dl Creatinine (0.6-1.2) mg/dl Est Cr Clr Drug Dosing Est GFR ( Amer) ml/min Est GFR (Non-Af Amer) ml/min BUN/Creatinine Ratio (10-20) Glucose (70-99) mg/dl Osmolality 263 L (280-300) mOsm/kg Calcium (8.5-10.1) mg/dl Total Bilirubin (0.2-1) mg/dl AST (15-37) U/L ALT (12-78) Alkaline Phosphatase (45-117) U/L Troponin I (0-0.045) ng/ml NT-Pro-B Natriuret Pep (0-900) pg/ml Total Protein (6.4-8.2) gm/dl Albumin (3.4-5.0) gm/dl Globulin (2.5-4.0) gm/dl Albumin/Globulin Ratio (0.9-2) Lipase (73-393) U/L SARS-CoV-2 (PCR) POSITIVE A* (Negative) Influenza Type A (PCR) Negative (Neg) Influenza Type B (PCR) Negative (Neg) RSV (RT-PCR) Negative (Neg) Administered Medications Discontinued Medications Ioversol (Optiray 320 125ml) 119 ml IV ONCE ONE Stop: 09/16/21 21:10 Last Admin: 09/16/21 21:10 Dose: 119 ml Documented by: [id number] Imaging Data Radiologist's Impression: Chest X-Ray 09/16/21 16:42 XR chest 1V portable CLINICAL HISTORY: Dyspnea COMPARISON STUDY: Chest CT April 02, 2021. Chest radiograph August 07, 2021. FINDINGS: Calcified right lung nodules are incidentally noted. Dual lead left subclavian pacemaker is in place. Cardiomediastinal silhouette is stable. No pneumothorax or pleural effusion is present. Possible minimal right lower lung opacity. IMPRESSION: Possible minimal right lower lung opacity. ACT 112: Negative or not required by law. Electronically signed by: Diogo Johnson M.D. 09/16/2021 5:37 PM Prescription Drug Monitoring Prescription Drug Findings: Patient: TIARA MCCALL (Female) : 60 Status: ER Date: 09/16/21 21:16 Room #: History: fall Slices: 59 Priors: Jaime: Billy Mendoza @ [phone] Exams: CT HEAD Contrast: Accession Numbers: [id number] Referring Physician: REFERRED SELF Preliminary Findings Only See Final Report For Complete Findings CT HEAD: No acute intracranial hemorrhage, extra-axial fluid collection or mass-effect. No acute skull fracture. Focal hypodensity the left thalamus likely represent sequela of remote lacunar infarct. Mild hypoattenuation in the supratentorial white matter is nonspecific, but often seen in the setting of chronic microvascular ischemic d isease. Focal 4 mm sclerotic density within the right lateral plate of the pterygoid process visualized. The absence of known malignancy is likely represents a bone island. Radiologist: Marge Mauricio M.D. Study ready at 21:19 and initial results transmitted at 22:10 Patient: TIARA MCCALL (Female) : 60 Status: ER Date: 09/16/21 21:17 Room #: History: fall Slices: 923 Priors: Tech: Billy Mendoza @ [phone] Exams: CT C SPINE Contrast: Accession Numbers: [id number] Referring Physician: REFERRED SELF Preliminary Findings Only See Final Report For Complete Findings CT C SPINE: No acute fracture or traumatic malalignment of the cervical spine. Calcifications of both carotids. Radiologist: Marge Mauricio M.D. Study ready at 21:20 and initial results transmitted at 22:13 Patient: TIARA MCCALL (Female) : 60 Status: ER Date: 09/16/21 21:22 Room #: History: SOB Slices: 787 Priors: Tech: Billy Mendoza @ [phone] Exams: CTA CHEST Contrast: IV Amt: 119 Accession Numbers: [id number] Referring Physician: REFERRED SELF Preliminary Findings Only See Final Report For Complete Findings CTA CHEST: No acute pulmonary embolism. No focal consolidation, pleural effusion or pneumothorax. Left sided cardiac pacemaker device. Calcified right hilar lymph nodes and multiple small calcified structures in the right lung which may represent calcified granulomas. Radiologist: Marge Mauricio M.D. Study ready at 21:35 and initial results transmitted at 22:31 Patient: TIARA MCCALL (Female) : 60 Status: ER Date: 09/16/21 21:28 Room #:A History: FALL Slices: 745 Priors: Tech: [place], Billy @ [phone] Exams: CT ABDOMEN & PELVIS With Contrast Contrast: IV Amt: 119 Accession Numbers: [id number] Referring Physician: REFERRED SELF Preliminary Findings Only See Final Report For Complete Findings CT ABDOMEN & PELVIS With Contrast: Comparison: CT abdomen pelvis 02/18/2021 Impression: No acute findings in the abdomen or pelvis. No evidence of acute solid organ injury. No significant free fluid. No acute fracture. Incidental findings: Cardiac pacemaker leads partially included the [id number]. Gallbladder is decompressed and demonstrates diffuse wall thickening which is nonspecific. No radiodense gallstones visualized. Redemonstration of 2 left adrenal lesions, each measuring up to 2 cm. Extensive atherosclerosis of the abdominal aorta and branch vessels. Diverticulosis of the descending and sigmoid colon. Radiologist: Marge Mauricio M.D. Study ready at 21:37 and initial results transmitted at 22:57 Discharge Plan Visit Data Chief Complaint: Shortness of Breath/Dyspnea Stated Complaint: SOB-LEAKING HEART VALVE, CALLED NURSE @ ER ED Provider: Mj Dozier ED Midlevel Provider: Rajesh Crowder Discharge Problem: Acute hyponatremia, TRISTAN (dyspnea on exertion), COVID-19 Patient Disposition: Being Evaluated by Hospitalist Forms Stand Alone Forms: My [facility] Prescriptions Prescriptions: No Action Xarelto 20 mg tablet 20 mg PO HS RF: 0 Creon 3,000-9,500- 15,000 unit capsule,delayed release(DR/EC) 1 cap PO TIDM RF: 0 triamcinolone acetonide 0.1 % cream 1 appln TOP DAILY PRN (Reason: NEEDED) RF: 0 spironolactone [Aldactone] 25 mg tablet 12.5 mg PO BID RF: 0 amitriptyline 25 mg tablet 25 mg PO HS RF: 0 atorvastatin [Lipitor] 80 mg tablet 80 mg PO HS RF: 0 pantoprazole [Protonix] 40 mg tablet,delayed release (DR/EC) 40 mg PO QAM RF: 0 zolpidem [Ambien] 10 mg tablet 10 mg PO HS RF: 0 diclofenac sodium [Voltaren Arthritis Pain] 1 % gel 2 g TOPICAL UD RF: 0 ondansetron 4 mg tablet,disintegrating 4 mg PO Q6 PRN (Reason: nausea and vomiting) Qty: 14 RF: 0 aspirin [Aspirin Low Dose] 81 mg Tablet,Delayed Release (Dr/Ec) 81 mg PO QAM RF: 0 cevimeline [Evoxac] 30 mg Capsule 1 cap PO TID RF: 0 oxycodone [Roxicodone] 5 mg tablet 5 mg PO Q6H PRN (Reason: pain) RF: 0 metoprolol tartrate [Lopressor] 50 mg tablet 50 mg PO BID Qty: 0 RF: 0 bumetanide 2 mg tablet 2 mg PO BID RF: 0 furosemide [Lasix] 40 mg tablet 40 mg PO QAM Qty: 30 RF: 0 Referrals Referrals: Janie Back PA-C [Primary Care Provider] -
--- NOTE | 2021-09-16 22:14 | Emergency Department Note ---
ED Visit Note I saw this patient with Dr. Dozier. Please refer to his note for history, physical, and medical decision making. . Resident Activity Tracking Resident Involvement: Resident Care Provided Care Provided: Adult ED
[2021-09-16 22:21] LABS: Lipase 99 U/L (73-393)
[2021-09-16 23:18] LABS: Influenza A virus by PCR Negative (Neg); Influenza B virus by PCR Negative (Neg); RSV by PCR Negative (Neg)
[2021-09-16 23:22] LABS: SARS CoV2 RNA(COVID-19) InHosp POSITIVE (Negative)
[2021-09-16] MEDS ORDERED: FUROSEMIDE 40 MG/4 ML VIAL IV ONE (23:47)
--- NOTE | 2021-09-16 23:49 | History & Physical Report ---
Date of Service September 16, 2021 Assessment & Plan (1) Acute hyponatremia: Plan: Acute hyponatremia- Sodium 123, serum osmolality 263, urine osmolality 146, suggesting volume overload I gave patient furosemide 40 mg IV x1 in the ED, and will continue every morning. (2) Acute heart failure with preserved ejection fraction (HFpEF): Plan: HFpEF/hypertension/chronic atrial fibrillation- The patient will be admitted to telemetry for serial cardiac enzymes, serial EKG's, cardiac rhythm monitoring. Status post RADHA on 08/09/2021 Lasix IV 40 mg every morning Continue aspirin, metoprolol tartrate with hold parameters, spironolactone and Xarelto (3) COVID-19: Plan: COVID-19 infection- No signs of pneumonia or hypoxia May be contributing to some generalized aches and pains Unclear association with hyponatremia at this time (4) HTN (hypertension): Plan: See above (5) Chronic atrial fibrillation: Plan: See above (6) Dyslipidemia: Plan: Continue atorvastatin 80 mg at bedtime (7) PVD (peripheral vascular disease): Plan: Treat along with heart issues (8) Chronic alcoholism: Plan: Monitor for withdrawal, but would not place on AWSS at this time (9) GERD (gastroesophageal reflux disease): Plan: Continue pantoprazole (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: Plan: Continue amitriptyline History of Present Illness Chief Complaint: The patient presents to the emergency department with complaint of difficulty breathing over the past 1 to 2 months, had recently been 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 She does also report some right-sided chest wall pain and upper abdominal pain after having had a recent fall. Primary Care Provider: Janie Back PA-C The patient is a 61-year-old female with a past medical history including anxiety with depression, chronic alcoholism, chronic pancreatitis, GERD, insomnia, stump neuralgia, atrial fibrillation with RVR, hyponatremia, hypertension, tobacco use disorder, COPD, HFpEF, mitral regurgitation, chronic A. fib, PVD, dyslipidemia, and status post left BKA. Significant laboratories: Sodium 123, potassium 3.5, serum osmolality 263, BNP 1746 Patient is COVID-19 positive, after previously having been negative on 04/22, 05/31 and 08/07. Pulse ox 98% on room air Allergies Allergy/AdvReac Type Severity Reaction Status Date / Time adhesive Allergy Severe SEVERE Verified 09/16/21 21:19 SKIN IRRITATION guanfacine Allergy Intermediate BP PROBLEMS Verified 09/16/21 21:19 nifedipine Allergy Intermediate BP PROBLEMS Verified 09/16/21 21:19 acetaminophen AdvReac Severe LIVER Verified 09/16/21 21:19 DAMAGE-DUE TO FAILURE amoxicillin AdvReac Severe LIVER Verified 09/16/21 21:19 FAILURE clavulanic acid AdvReac Severe LIVER Verified 09/16/21 21:19 FAILURE Home Medications Medication Instructions Recorded Confirmed Type pantoprazole 40 mg tablet,delayed 40 mg PO QAM 07/18/18 09/16/21 History release (Protonix) zolpidem 10 mg tablet (Ambien) 10 mg PO HS 07/18/18 09/16/21 History rivaroxaban 20 mg tablet (Xarelto) 20 mg PO HS 12/20/18 09/16/21 History atorvastatin 80 mg tablet (Lipitor) 80 mg PO HS tab 06/06/19 09/16/21 History lipase 3,000-protease 1 cap PO TIDM 07/31/19 09/16/21 History 9,500-amylase 15,000 unit capsule, delayed rel (Creon) triamcinolone acetonide 0.1 % 1 appln TOP DAILY PRN 10/09/19 09/16/21 History topical cream aspirin 81 mg tablet,delayed 81 mg PO QAM 12/19/19 09/16/21 History release (Aspirin Low Dose) diclofenac sodium 1 % topical gel 2 g TOPICAL UD 05/13/20 09/16/21 History (Voltaren Arthritis Pain) amitriptyline 25 mg tablet 25 mg PO HS 07/17/20 09/16/21 History ondansetron 4 mg disintegrating 4 mg PO Q6 PRN #14 tab 07/24/20 09/16/21 Rx tablet cevimeline 30 mg capsule (Evoxac) 1 cap PO TID 01/08/21 09/16/21 History oxycodone 5 mg tablet (Roxicodone) 5 mg PO Q6H PRN 04/22/21 09/16/21 History metoprolol tartrate 50 mg tablet 50 mg PO BID #0 tab 04/26/21 09/16/21 Rx (Lopressor) furosemide 40 mg tablet (Lasix) 40 mg PO QAM #30 tab 05/31/21 09/16/21 Rx spironolactone 25 mg tablet 12.5 mg PO BID tab 06/13/21 09/16/21 History (Aldactone) bumetanide 2 mg tablet 2 mg PO BID 09/16/21 09/16/21 History Past Med/Surg History Medical History Anxiety and depression Arthritis DVT (deep venous thrombosis) 40+ years ago Dyslipidemia GERD (gastroesophageal reflux disease) Hx of gastric ulcer Hx of migraines Hx of pancreatitis Chronic Neuropathy Pacemaker Dual-chamber, implanted 2018 (high grade AVB/sinus node dysfunction), [employer], follows with Dr. Zarate Paroxysmal atrial fibrillation PVD (peripheral vascular disease) Severe mitral regurgitation Per patient, attempt for MitraClip ([facility]) was performed but unsuccessful (07/2021) Surgical History H/O vascular surgery Bilateral femoral endarterectomy with iliac stent (2016) History of amputation REVISION OF AMPUTATION LLE History of appendectomy History of cardiac cath (~04/24/21) @ [facility] with Dr. Carbajal, no stents placed History of colonoscopy History of esophagogastroduodenoscopy (EGD) History of surgery (~07/30/21) Attempt for MitraClip ([facility]) was performed but unsuccessful (07/2021) History of tooth extraction S/P angiogram of extremity right lower leg Status post below knee amputation of left lower extremity Status post ORIF of fracture of ankle ORIF closed displaced trimalleolar left ankle fracture (2016) Family History Unknown No problems noted. Father Family history of diabetes mellitus Other No family history of adverse response to anesthesia Social History Smoking Status: Current every day smoker Tobacco Type: Cigarettes Cigarettes Per Day: 5-15; Second Hand Exposure: Yes; Do You Dip or Chew Tobacco: No; Tobacco Cessation Education Requested by Patient: No Hx Alcohol Use: No Hx Substance Use: Yes Last Used Substance: Unknown Substance Use Type Other:: Patient has medical marijuana card. Preferred Language: Bermudian Communication Ability: Effective Director Of Investigations Required: No Beliefs That Will Affect Care: None marital status: Current Living Situation: Spouse current occupation: Retired How many Children do You have: 1 Other Information That Helps Us Care for You: No Feels Safe at Home: Yes Safety Concerns: Feels Safe At This Time Assistive Devices: Denture - Upper, Denture - Lower, Glasses, Prosthesis and Wheelchair Review of Systems Review of Systems: The patient denies palpitations, lower extremity swelling, sore throat, fevers, chills, sweats, nausea, vomiting, diarrhea , constipation, abdominal pain, pelvic pain, blood in urine or stool, dysuria, urinary frequency or urgency, lightheadedness, dizziness, headache, memory loss, loss of consciousness, rash, abnormal bruising or bleeding, imbalance, focal weakness, numbness or tingling in arms or legs, or night sweats. The review of systems is otherwise negative other than for that already noted a josé, and at least 10 systems have been reviewed. Physical Exam Physical Exam: The patient is awake, alert and oriented 3, well developed and well nourished, normocephalic and atraumatic, lying in bed and in no acute distress. HEENT--PERRL, EOMI, mucous membranes and oropharynx normal. Neck--supple. No JVD. No bruits. Thyroid normal, trachea midline, no adenopathy. Heart--normal S1 and S2. No murmurs, rubs or gallops. Lungs--clear but diminished bilaterally. No respiratory distress, no accessory muscle use. Abdomen--normal bowel sounds and soft. Nontender. Nondistended. Obese Extremities--no cyanosis or clubbing. No edema. Dermatologic--normal skin turgor, normal color, no abnormal lymph nodes, no rash. Neurologic--cranial nerves II through XII grossly intact. Rheumatologic--limited exam Psychiatric--normal affect. Results & Data Results & Data ([facility]) Vital Signs (Past 12 Hours) Vital Signs Temp Pulse Pulse Resp BP BP Pulse Ox 09/16/21 22:34 68 20 142/71 H 97 09/16/21 20:31 86 20 150/81 H 100 09/16/21 20:29 86 20 100 09/16/21 16:39 36.9 C 90 18 138/88 98 Laboratory Results Laboratory Results WBC 8.58 K/uL (4.8-10.8) 09/16/21 17:32 RBC 4.44 M/uL (4.2-5.4) 09/16/21 17:32 Hgb 12.8 g/dL (12.0-16.0) 09/16/21 17:32 Hct 37.7 % (37-47) 09/16/21 17:32 MCV 84.9 fL (80-100) 09/16/21 17:32 MCH 28.8 pg (25-34) 09/16/21 17:32 MCHC 34.0 g/dL (32-36) 09/16/21 17:32 RDW Std Deviation 52.5 fL (36.4-46.3) H 09/16/21 17:32 RDW Coeff of Marlon 16.8 % (11.5-14.5) H 09/16/21 17:32 Plt Count 162 K/uL (130-400) 09/16/21 17:32 MPV 12.1 fL (7.4-10.4) H 09/16/21 17:32 Immature Gran % (Auto) 0.3 % 09/16/21 17:32 Neut % (Auto) 79.0 % 09/16/21 17:32 Lymph % (Auto) 16.1 % 09/16/21 17:32 Caswell % (Auto) 4.2 % 09/16/21 17:32 Eos % (Auto) 0.2 % 09/16/21 17:32 Baso % (Auto) 0.2 % 09/16/21 17:32 Neut # (Auto) 6.77 K/uL (1.4-6.5) H 09/16/21 17:32 Lymph # (Auto) 1.38 K/uL (1.2-3.4) 09/16/21 17:32 Caswell # (Auto) 0.36 K/uL (0.11-0.59) 09/16/21 17:32 Eos # (Auto) 0.02 K/uL (0-0.5) 09/16/21 17:32 Baso # (Auto) 0.02 K/uL (0-0.2) 09/16/21 17:32 Immature Gran # (Auto) 0.03 K/uL (0.00-0.02) H 09/16/21 17:32 PT 11.1 Seconds (9.0-12.0) 09/16/21 17:33 INR 1.1 (0.9-1.1) 09/16/21 17:33 APTT 36.9 Seconds (21.0-31.0) H 09/16/21 17:33 PTT Ratio 1.4 09/16/21 17:33 Sodium 123 mmol/L (136-145) L 09/16/21 17:32 Potassium 3.5 mmol/L (3.5-5.1) 09/16/21 17:32 Chloride 87 mmol/L (98-107) L 09/16/21 17:32 Carbon Dioxide 27 mmol/L (21-32) 09/16/21 17:32 Anion Gap 9.0 (3-11) 09/16/21 17:32 BUN 9 mg/dl (7-18) 09/16/21 17:32 Creatinine 1.04 mg/dl (0.6-1.2) 09/16/21 17:32 Est Cr Clr Drug Dosing Not Reportable 09/16/21 17:32 Est GFR ( Amer) 67.2 ml/min 09/16/21 17:32 Est GFR (Non-Af Amer) 57.9 ml/min 09/16/21 17:32 BUN/Creatinine Ratio 9.1 (10-20) L 09/16/21 17:32 Glucose 98 mg/dl (70-99) 09/16/21 17:32 Osmolality 263 mOsm/kg (280-300) L 09/16/21 17:33 Calcium 8.7 mg/dl (8.5-10.1) 09/16/21 17:32 Total Bilirubin 0.3 mg/dl (0.2-1) 09/16/21 17:32 AST 35 U/L (15-37) 09/16/21 17:32 ALT 29 (12-78) 09/16/21 17:32 Alkaline Phosphatase 116 U/L (45-117) 09/16/21 17:32 Troponin I < 0.015 ng/ml (0-0.045) 09/16/21 17:32 NT-Pro-B Natriuret Pep 1746 pg/ml (0-900) H 09/16/21 17:32 NT-Pro-B Natriuret Pep Cancelled 09/16/21 17:32 Total Protein 8.0 gm/dl (6.4-8.2) 09/16/21 17:32 Albumin 3.5 gm/dl (3.4-5.0) 09/16/21 17:32 Globulin 4.5 gm/dl (2.5-4.0) H 09/16/21 17:32 Albumin/Globulin Ratio 0.8 (0.9-2) L 09/16/21 17:32 Lipase 99 U/L (73-393) 09/16/21 17:32 Urine Osmolality 146 mOsm/kg (500-800) L 09/16/21 23:36 Ur Random Sodium 12 mmol/L 09/16/21 23:36 SARS-CoV-2 (PCR) POSITIVE (Negative) A* 09/16/21 Unknown Influenza Type A (PCR) Negative (Neg) 09/16/21 Unknown Influenza Type B (PCR) Negative (Neg) 09/16/21 Unknown RSV (RT-PCR) Negative (Neg) 09/16/21 Unknown Impressions Chest X-Ray 09/16/21 16:42 XR chest 1V portable CLINICAL HISTORY: Dyspnea COMPARISON STUDY: Chest CT April 02, 2021. Chest radiograph August 07, 2021. FINDINGS: Calcified right lung nodules are incidentally noted. Dual lead left subclavian pacemaker is in place. Cardiomediastinal silhouette is stable. No pneumothorax or pleural effusion is present. Possible minimal right lower lung opacity. IMPRESSION: Possible minimal right lower lung opacity. ACT 112: Negative or not required by law. Electronically signed by: Diogo Johnson M.D. 09/16/2021 5:37 PM Code Status & VTE Plan Code Status Full code VTE Prophylaxis Plan VTE Prophylaxis will be ordered: Yes PG Care Time/CCT Total # of Minutes Spent Total Time Spent with Patient: Total time spent is greater than 50% in coordination of care (as documented) at patient's floor/unit and/or counseling patient: Coding Level of Care Code 17408 Initial Inpt Care Lvl 3 Diagnoses Acute hyponatremia E87.1 COVID-19 U07.1 Chronic alcoholism F10.20 GERD (gastroesophageal reflux disease) K21.9 Esophagitis presence: esophagitis presence not specified Stump neuralgia M79.2 HTN (hypertension) I10 Chronic atrial fibrillation I48.20 Dyslipidemia E78.5 PVD (peripheral vascular disease) I73.9 Acute heart failure with preserved ejection fraction (HFpEF) I50.31 (1) GERD (gastroesophageal reflux disease) Esophagitis presence: esophagitis presence not specified Qualified Code(s): K21.9 - Gastro-esophageal reflux disease without esophagitis
[2021-09-17] MEDS ORDERED: ONDANSETRON INJ 2 MG/ML 2 ML VIAL IV PRN (01:36)
[2021-09-17] MEDS ORDERED: ONDANSETRON 4 MG OD TAB PO PRN (01:36)
[2021-09-17] MEDS ORDERED: ZOLPIDEM TARTRATE 10 MG TAB PO ONE (02:18)
[2021-09-17] MEDS ORDERED: oxyCODONE HCL IR 5 MG TAB (IMMEDIATE RELEASE) ONE (02:18)
[2021-09-17] MEDS ORDERED: BENZONATATE 100 MG CAPSULE PO PRN (02:26)
[2021-09-17] MEDS: ZOLPIDEM TARTRATE 10 MG TAB PO SCH ×2 (02:30→20:24)
[2021-09-17] MEDS: oxyCODONE HCL IR 5 MG TAB (IMMEDIATE RELEASE) PO PRN ×4 (02:30→21:54)
[2021-09-17] MEDS: RIVAROXABAN 20 MG TAB PO SCH ×2 (02:56→20:54)
--- NOTE | 2021-09-17 07:07 | CT Scan Report ---
CT head/brain wo con CLINICAL HISTORY: fall Technique: Contiguous axial CT images of the head were acquired from the base of the skull to the vanessa abel without intravenous contrast administration. Images were viewed in brain, subdural and [facility]. Automated dose lowering techniques and/or adjustment according to patient size were utilized for this exam. Comparison: Comparison is made to CT head 05/11/2007 Findings: The ventricles, basal cisterns, and cerebral sulci are normal. There is no acute intracranial hemorrh age or evidence of acute territorial infarction. Neither mass effect, shift of the midline structures , nor abnormal extra-axial fluid collections are shown. Old lacunar infarct is seen in the left thala mus. Imaged portions of the paranasal sinuses and mastoid air cells are clear. The orbits appear normal. There are no acute fractures of the calvaria or scalp swelling. Impression: No acute intracranial hemorrhage, no evidence of acute territorial infarction or other acute intracra nial disease process. ACT 112: Negative or not required by law. Electronically signed by: Bon Askew M.D. 09/17/2021 7:05 AM
--- NOTE | 2021-09-17 07:12 | CT Scan Report ---
CT angio chest PE protocol CLINICAL HISTORY: PE worsening dyspnea since yesterday. TECHNIQUE: Multidetector row helical CT of the chest was performed. Coronal and sagittal reformations were obtained. Coronal and sagittal MIPS were obtained from the axial data set and were submitted fo r review. Automated dose lowering techniques and/or adjustment according to patient size were utiliz ed for this exam. Comparison: Comparison is made to CT chest 04/22/2021 FINDINGS: Lungs and pleura: Scattered calcified granulomata are seen. Centrilobular emphysema is seen. Heart and pericardium: Heart size is normal. No pericardial effusion. Implanted pacemaker is seen. Vessels: No evidence of pulmonary embolism. Moderate atherosclerotic disease is seen. Mediastinum and arvin: Calcified lymph nodes are seen in the right hilum. No lymphadenopathy is seen. Chest wall and lower neck: Unremarkable. Abdomen: Mild thickening of the left adrenal gland is unchanged. There is a small hiatal hernia. Bones: Unremarkable. IMPRESSION: No evidence of pulmonary embolism. ACT 112: Negative or not required by law. Electronically signed by: Bon Askew M.D. 09/17/2021 7:11 AM
--- NOTE | 2021-09-17 07:13 | CT Scan Report ---
CT cervical spine wo con CLINICAL HISTORY: fall TECHNIQUE: Multidetector row helical CT of the cervical spine was performed without administration of intravenous contrast. Coronal and sagittal reformations were obtained. Automated dose lowering techn iques and/or adjustment according to patient size were utilized for this exam. Comparison: None available at the time of this dictation. FINDINGS: No acute fractures or subluxations are identified. The alignment is normal. Degenerative changes are seen in the visualized spine. The prevertebral soft tissues are unremarkable. IMPRESSION: No evidence of acute bony injury. ACT 112: Negative or not required by law. Electronically signed by: Bon Askew M.D. 09/17/2021 7:12 AM
--- NOTE | 2021-09-17 07:26 | CT Scan Report ---
CT abd pelvis IV con only CLINICAL HISTORY: fall TECHNIQUE: Helical axial images of the abdomen and pelvis were obtained and displayed. Automated dose lowering techniques and/or adjustment according to patient size were utilized for this exam. This e xam was performed with intravenous contrast. COMPARISON: Comparison is made to CT abdomen pelvis 02/18/2021 FINDINGS: Lower chest: No acute abnormality Liver: Unremarkable. No focal lesions are seen. Gallbladder and biliary tree: The gallbladder is contracted and there is pericholecystic fluid withou t evidence of wall thickening. No intra- or extrahepatic biliary ductal dilation. Pancreas: Previously noted peripancreatic stranding is no longer appreciated on today's exam. Spleen: Calcifications are noted in the spleen compatible with prior granulomatous disease. Adrenals: Left adrenal lesions are unchanged in size from prior exam. Kidneys and ureters: Previously noted renal cysts are stable. Bladder: Unremarkable. Reproductive organs: Unremarkable. Bowel: Diverticulosis is seen without evidence of diverticulitis. Lymph nodes Retroperitoneal: Madhu hepatis lymph nodes measure up to 14 mm in short axis. A 10 mm node is also se en about the pancreas. These nodes were similar in size on the prior exam. Mesenteric: Unremarkable. Pelvic: Unremarkable. Peritoneum: Normal Vessels: Biiliac stent is noted. There are extensive atherosclerotic calcifications. Abdominal wall: Unremarkable. Bones: Degenerative changes in the visualized spine. IMPRESSION: 1. No acute abnormalities. 2. Redemonstration of contracted gallbladder, some pericholecystic fluid is seen today. This is nons pecific, clinical correlation to exclude symptoms of acute cholecystitis is recommended. 3. Stable adrenal nodules. 4. Extensive atherosclerosis biiliac stent. 5. Diverticulosis without evidence of diverticulitis. ACT 112: Negative or not required by law. Electronically signed by: Bon Aksew M.D. 09/17/2021 7:25 AM
[2021-09-17] MEDS: PANTOprazole 40 MG TAB PO SCH (08:41)
[2021-09-17] MEDS: FUROSEMIDE 40 MG/4 ML VIAL IV SCH (08:41)
[2021-09-17] MEDS: PANCREAZE (LIPASE 4,200U) CAP PO SCH ×3 (08:41→17:55)
[2021-09-17] MEDS: SPIRONOLACTONE 12.5 MG TAB PO SCH ×2 (08:41→20:56)
[2021-09-17] MEDS: ASPIRIN 81 MG ECTAB PO SCH (08:41)
[2021-09-17] MEDS: METOPROLOL TARTRATE 50 MG TAB PO SCH ×2 (08:41→20:53)
[2021-09-17 09:01] LABS: Hematocrit (blood only) 37.4 % (37-47); Hemoglobin 12.6 g/dL (12.0-16.0); Mean Corpuscular Hemoglobin 28.7 pg (25-34); Mean Corpuscular Hgb Conc 33.7 g/dL (32-36); Mean Corpuscular Volume 85.2 fL (80-100); Mean Platelet Volume 12.6 fL (7.4-10.4); Platelet Count 153 K/uL (130-400); RDW Coefficient of Variation 16.8 % (11.5-14.5); RDW Standard Deviation 52.4 fL (36.4-46.3); Red Blood Count 4.39 M/uL (4.2-5.4)
[2021-09-17] MEDS: PREGABALIN 150 MG CAP PO SCH ×2 (09:06→20:24)
[2021-09-17 09:12] LABS: Albumin Level 3.2 gm/dl (3.4-5.0); Calcium 8.8 mg/dl (8.5-10.1); Creatinine Clr Calc Pharmacy 72.1 ml/min; Est GFR (African American) 84.5 ml/min; Est GFR (Non-African American) 72.9 ml/min; Potassium 3.1 mmol/L (3.5-5.1)
[2021-09-17 09:13] LABS: Albumin Globulin Ratio 0.8 (0.9-2); Bilirubin,Total 0.4 mg/dl (0.2-1); Globulin 4.2 gm/dl (2.5-4.0); Total Protein 7.4 gm/dl (6.4-8.2)
[2021-09-17 09:24] LABS: ALC (manual) 1.41 K/uL (1.2-3.4); ANC (manual) 1.93 K/uL (1.4-6.5); Basophils # (manual) 0.06 K/uL (0-0.2); Basophils % (manual) 1.8 %; Lymphocytes # (manual) 1.41 K/uL (1.2-3.4); Lymphocytes % (manual) 39.1 %; Monocytes % (manual) 5.5 %; Neutrophils # (manual) 1.93 K/uL (1.4-6.5); Neutrophils % (manual) 53.6 %; RBC Morphology Unremarkable
--- NOTE | 2021-09-17 10:05 | Hospitalist Progress Note ---
Date of Service September 17, 2021 Assessment & Plan (1) Acute hyponatremia: Plan: Acute hyponatremia- typically runs 128-131 per patient Sodium 123 on admission, serum osmolality 263, urine osmolality 146, suggesting volume overload good response to Lasix 40mg IV Na up to 126, repeat at 3pm today and tomorrow morning discharge to home when sodium is 128 or higher (2) Acute heart failure with preserved ejection fraction (HFpEF): Plan: HFpEF/hypertension/chronic atrial fibrillation- troponin negative, no issues on tele Lasix IV 40 mg every morning Continue aspirin, metoprolol tartrate with hold parameters, spironolactone and Xarelto repeat BNP tomorrow (3) COVID-19: Plan: COVID-19 infection- No signs of pneumonia or hypoxia, lung parenchyma is completely normal on CT chest May be contributing to some generalized aches and pains told her to quarantine 10-12 days from diagnosis (4) HTN (hypertension): Plan: See above (5) Chronic atrial fibrillation: Plan: See above (6) Dyslipidemia: Plan: Continue atorvastatin 80 mg at bedtime (7) PVD (peripheral vascular disease): Plan: Treat along with heart issues (8) Chronic alcoholism: Plan: Monitor for withdrawal, but would not place on AWSS at this time (9) GERD (gastroesophageal reflux disease): Plan: Continue pantoprazole (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: Plan: Continue amitriptyline, Lyrica Admission and Anticipated Discharge Date Admission Date: September 16, 2021 Subjective patient says she is feeling better, breathing easier, making a lot of urine with the Lasix 40mg IV she says her sodium is always low at 128-131 but his is lower than normal of course discussed her COVID diagnosis, she has no symptoms at all, her lungs are clear on CTA chest looked at her left inguinal bruise, she has a minimal skin tear, looks clean eating well, no cough, no fever she says she fell out of bed because she was having a dream, rolled off the bed will ask PT/OT to see her try to discharge home if sodium is up to 128 Review of Systems Review of Systems: All systems reviewed & are unremarkable except as noted in Subjective Respiratory: + dyspnea on exertion; no cough and no dyspnea Cardiovascular: + edema; no chest pain Physical Exam Physical Exam: General: well developed, well nourished, no acute distress, comfortable Neck: supple, trachea midline, normal thyroid Lungs: clear to auscultation bilaterally, normal respiratory effort, no accessory muscle use, no distress Heart: regular S1 and S2, no murmur, peripheral pulses normal, capillary refill normal, no edema Abdomen: soft, NT, ND, + BS, no hepatomegaly, normal to percussion Extremities: left BKA, stump is well healed and clean, no cyanosis, no petechiae, strength is 5/5 bilaterally Neuro: awake, cooperative, moves all extremities, no focal motor deficits, CN II-XII intact, sensation in extremities intact, normal speech Skin: warm, dry, bruising from fall, small skin tear left inguinal area Psych: Awake, alert oriented x 3, euthymic affect Results & Data Results & Data ([facility]) Vital Signs (Past 12 Hours) Vital Signs Temp Pulse Pulse Resp BP Pulse Ox 09/17/21 07:13 36.7 C 73 18 130/79 91 09/17/21 04:54 36.9 C 70 18 124/75 93 09/17/21 01:15 36.8 C 71 71 22 155/89 H 98 09/17/21 00:19 79 20 146/73 H 97 09/16/21 22:34 68 20 142/71 H 97 Laboratory Results Laboratory Results - last 24 hr 09/16/21 09/16/21 09/16/21 17:32 17:32 17:32 WBC 8.58 RBC 4.44 Hgb 12.8 Hct 37.7 MCV 84.9 MCH 28.8 MCHC 34.0 RDW Std Deviation 52.5 H RDW Coeff of Marlon 16.8 H Plt Count 162 MPV 12.1 H Immature Gran % (Auto) 0.3 Neut % (Auto) 79.0 Lymph % (Auto) 16.1 [place] % (Auto) 4.2 Eos % (Auto) 0.2 Baso % (Auto) 0.2 Neut # (Auto) 6.77 H Lymph # (Auto) 1.38 [place] # (Auto) 0.36 Eos # (Auto) 0.02 Baso # (Auto) 0.02 Immature Gran # (Auto) 0.03 H Neutrophils % (Manual) Lymphocytes % (Manual) Monocytes % (Manual) Basophils % (Manual) Neutrophils # (Manual) Total Absolute Neuts Lymphocytes # (Manual) Total Abs Lymphocytes Monocytes # (Manual) Basophils # (Manual) RBC Morphology PT INR APTT PTT Ratio Sodium 123 L Potassium 3.5 Chloride 87 L Carbon Dioxide 27 Anion Gap 9.0 BUN 9 Creatinine 1.04 Est Cr Clr Drug Dosing Not Reportable Est GFR ( Amer) 67.2 Est GFR (Non-Af Amer) 57.9 BUN/Creatinine Ratio 9.1 L Glucose 98 Osmolality Calcium 8.7 Total Bilirubin 0.3 AST 35 ALT 29 Alkaline Phosphatase 116 Troponin I < 0.015 NT-Pro-B Natriuret Pep 1746 H Cancelled Total Protein 8.0 Albumin 3.5 Globulin 4.5 H Albumin/Globulin Ratio 0.8 L Lipase 99 Urine Osmolality Ur Random Sodium SARS-CoV-2 (PCR) Influenza Type A (PCR) Influenza Type B (PCR) RSV (RT-PCR) 09/16/21 09/16/21 09/16/21 17:33 17:33 23:36 WBC RBC Hgb Hct MCV MCH MCHC RDW Std Deviation RDW Coeff of Marlon Plt Count MPV Immature Gran % (Auto) Neut % (Auto) Lymph % (Auto) [place] % (Auto) Eos % (Auto) Baso % (Auto) Neut # (Auto) Lymph # (Auto) [place] # (Auto) Eos # (Auto) Baso # (Auto) Immature Gran # (Auto) Neutrophils % (Manual) Lymphocytes % (Manual) Monocytes % (Manual) Basophils % (Manual) Neutrophils # (Manual) Total Absolute Neuts Lymphocytes # (Manual) Total Abs Lymphocytes Monocytes # (Manual) Basophils # (Manual) RBC Morphology PT 11.1 INR 1.1 APTT 36.9 H PTT Ratio 1.4 Sodium Potassium Chloride Carbon Dioxide Anion Gap BUN Creatinine Est Cr Clr Drug Dosing Est GFR ( Amer) Est GFR (Non-Af Amer) BUN/Creatinine Ratio Glucose Osmolality 263 L Calcium Total Bilirubin AST ALT Alkaline Phosphatase Troponin I NT-Pro-B Natriuret Pep Total Protein Albumin Globulin Albumin/Globulin Ratio Lipase Urine Osmolality 146 L Ur Random Sodium SARS-CoV-2 (PCR) Influenza Type A (PCR) Influenza Type B (PCR) RSV (RT-PCR) 09/16/21 09/16/21 09/17/21 23:36 Unknown 07:49 WBC 3.60 L RBC 4.39 Hgb 12.6 Hct 37.4 MCV 85.2 MCH 28.7 MCHC 33.7 RDW Std Deviation 52.4 H RDW Coeff of Marlon 16.8 H Plt Count 153 MPV 12.6 H Immature Gran % (Auto) Neut % (Auto) Lymph % (Auto) [place] % (Auto) Eos % (Auto) Baso % (Auto) Neut # (Auto) Lymph # (Auto) [place] # (Auto) Eos # (Auto) Baso # (Auto) Immature Gran # (Auto) Neutrophils % (Manual) 53.6 Lymphocytes % (Manual) 39.1 Monocytes % (Manual) 5.5 Basophils % (Manual) 1.8 Neutrophils # (Manual) 1.93 Total Absolute Neuts 1.93 Lymphocytes # (Manual) 1.41 Total Abs Lymphocytes 1.41 Monocytes # (Manual) 0.20 Basophils # (Manual) 0.06 RBC Morphology Unremarkable PT INR APTT PTT Ratio Sodium Potassium Chloride Carbon Dioxide Anion Gap BUN Creatinine Est Cr Clr Drug Dosing Est GFR ( Amer) Est GFR (Non-Af Amer) BUN/Creatinine Ratio Glucose Osmolality Calcium Total Bilirubin AST ALT Alkaline Phosphatase Troponin I NT-Pro-B Natriuret Pep Total Protein Albumin Globulin Albumin/Globulin Ratio Lipase Urine Osmolality Ur Random Sodium 12 SARS-CoV-2 (PCR) POSITIVE A* Influenza Type A (PCR) Negative Influenza Type B (PCR) Negative RSV (RT-PCR) Negative 09/17/21 07:49 WBC RBC Hgb Hct MCV MCH MCHC RDW Std Deviation RDW Coeff of Marlon Plt Count MPV Immature Gran % (Auto) Neut % (Auto) Lymph % (Auto) [place] % (Auto) Eos % (Auto) Baso % (Auto) Neut # (Auto) Lymph # (Auto) [place] # (Auto) Eos # (Auto) Baso # (Auto) Immature Gran # (Auto) Neutrophils % (Manual) Lymphocytes % (Manual) Monocytes % (Manual) Basophils % (Manual) Neutrophils # (Manual) Total Absolute Neuts Lymphocytes # (Manual) Total Abs Lymphocytes Monocytes # (Manual) Basophils # (Manual) RBC Morphology PT INR APTT PTT Ratio Sodium 126 L Potassium 3.1 L Chloride 90 L Carbon Dioxide 28 Anion Gap 8.0 BUN 10 Creatinine 0.86 Est Cr Clr Drug Dosing 72.1 Est GFR ( Amer) 84.5 Est GFR (Non-Af Amer) 72.9 BUN/Creatinine Ratio 12.0 Glucose 92 Osmolality Calcium 8.8 Total Bilirubin 0.4 AST 34 ALT 25 Alkaline Phosphatase 100 Troponin I NT-Pro-B Natriuret Pep Total Protein 7.4 Albumin 3.2 L Globulin 4.2 H Albumin/Globulin Ratio 0.8 L Lipase Urine Osmolality Ur Random Sodium SARS-CoV-2 (PCR) Influenza Type A (PCR) Influenza Type B (PCR) RSV (RT-PCR) Medications Administered Current Inpatient Medications Amitriptyline HCl (Amitriptyline Hcl 25 Mg Tab) 25 mg PO HS [facility] Stop: 10/17/21 20:59 Lipase/Protease/Amylase (Pancreaze (Lipase 4,200u) Cap) 1 cap PO TIDM [facility] Stop: 10/17/21 07:59 Last Admin: 09/17/21 08:41 Dose: 1 cap Documented by: Aspirin (Aspirin 81 Mg Ectab) 81 mg PO QAM [facility] Stop: 10/17/21 08:59 Last Admin: 09/17/21 08:41 Dose: 81 mg Documented by: Atorvastatin Calcium (Atorvastatin 40 Mg Tab) 80 mg PO [facility] Stop: 10/17/21 20:59 Benzonatate (Benzonatate 100 Mg Capsule) 100 mg PO TID PRN PRN Reason: Cough Stop: 10/17/21 02:25 Last Admin: 09/17/21 03:00 Dose: 100 mg Documented by: Furosemide (Furosemide 40 Mg/4 Ml Vial) 40 mg IV QAM [facility] Stop: 10/17/21 08:59 Last Admin: 09/17/21 08:41 Dose: 40 mg Documented by: Metoprolol Tartrate (Metoprolol Tartrate 50 Mg Tab) 50 mg PO BID [facility] Stop: 10/17/21 08:59 Last Admin: 09/17/21 08:41 Dose: 50 mg Documented by: Miscellaneous (Cevimeline [Evoxac]: Order Awaiting Action) 1 ea N/A QS [facility] Stop: 10/17/21 07:59 Last Admin: 09/17/21 08:42 Dose: Not Given Documented by: Ondansetron HCl (Ondansetron 4 Mg Od Tab) 4 mg PO Q6 PRN PRN Reason: nausea and vomiting Stop: 10/17/21 01:35 Ondansetron HCl (Ondansetron Inj 2 Mg/Ml 2 Ml Vial) 4 mg IV Q6H PRN PRN Reason: Nausea Stop: 10/17/21 01:35 Oxycodone HCl (Oxycodone Hcl Ir 5 Mg Tab (Immediate Release)) 5 mg PO Q6H PRN PRN Reason: Moderate Pain Stop: 10/01/21 01:35 Last Admin: 09/17/21 08:40 Dose: 5 mg Documented by: Pantoprazole Sodium (Pantoprazole 40 Mg Tab) 40 mg PO QAM [facility] Stop: 10/17/21 08:59 Last Admin: 09/17/21 08:41 Dose: 40 mg Documented by: Potassium Chloride (Potassium Chloride Crtab 20 Meq Tabcr) 20 meq PO TID [facility] Stop: 10/17/21 13:59 Pregabalin (Pregabalin 150 Mg Cap) 300 mg PO BID [facility] Stop: 10/17/21 08:59 Last Admin: 09/17/21 09:06 Dose: 300 mg Documented by: Rivaroxaban (Rivaroxaban 20 Mg Tab) 20 mg PO HS [facility] Stop: 10/17/21 20:59 Last Admin: 09/17/21 02:56 Dose: 20 mg Documented by: Spironolactone (Spironolactone 12.5 Mg Tab) 12.5 mg PO BID [facility] Stop: 10/17/21 08:59 Last Admin: 09/17/21 08:41 Dose: 12.5 mg Documented by: Zolpidem Tartrate (Zolpidem Tartrate 10 Mg Tab) 10 mg PO HS [facility] Stop: 10/17/21 20:59 Last Admin: 09/17/21 02:30 Dose: 10 mg Documented by: PG Care Time/CCT Total # of Minutes Spent Total Time Spent with Patient: Total time spent is greater than 50% in coordination of care (as documented) at patient's floor/unit and/or counseling patient: Coding Level of Care Code 88046 Subseq Hosp Care Lvl 2 Diagnoses Acute hyponatremia E87.1 Acute heart failure with preserved ejection fraction (HFpEF) I50.31 COVID-19 U07.1 HTN (hypertension) I10 Chronic atrial fibrillation I48.20 Dyslipidemia E78.5 PVD (peripheral vascular disease) I73.9 Chronic alcoholism F10.20 GERD (gastroesophageal reflux disease) K21.9 Esophagitis presence: esophagitis presence not specified Stump neuralgia M79.2 (1) GERD (gastroesophageal reflux disease) Esophagitis presence: esophagitis presence not specified Qualified Code(s): K21.9 - Gastro-esophageal reflux disease without esophagitis
[2021-09-17] MEDS ORDERED: Nursing to Pharmacy Communication SCH (12:45)
[2021-09-17] MEDS: POTASSIUM CHLORIDE 20 MEQ/15 ML UDC PO SCH ×2 (13:52→20:55)
[2021-09-17] MEDS ORDERED: POTASSIUM CHLORIDE CRTAB 20 MEQ TABCR PO SCH (14:00)
[2021-09-17 15:35] LABS: BUN Creatinine Ratio 11.9 (10-20); Calcium 8.8 mg/dl (8.5-10.1); Creatinine Clr Calc Pharmacy 56.4 ml/min; Est GFR (African American) 62.8 ml/min; Est GFR (Non-African American) 54.1 ml/min; Potassium 3.7 mmol/L (3.5-5.1)
[2021-09-17] MEDS: BACITRACIN OINT 15 GM TUBE EXT SCH (20:55)
[2021-09-17] MEDS ORDERED: ATORVASTATIN 40 MG TAB PO SCH (21:00)
[2021-09-17] MEDS ORDERED: AMITRIPTYLINE HCL 25 MG TAB PO SCH (21:00)
--- NOTE | 2021-09-18 07:05 | Electrocardiogram Report ---
Test Reason : Blood Pressure : / mmHG Vent. Rate : 098 BPM Atrial Rate : 119 BPM P-R Int : 000 ms QRS Dur : 074 ms QT Int : 312 ms P-R-T Axes : 000 059 -31 degrees QTc Int : 398 ms Atrial fibrillation Nonspecific ST and T wave abnormality Abnormal ECG When compared with ECG of 09-AUG-2021 20:25, No significant change Confirmed by Alex Taylor ([id number]) on 09/18/2021 7:05:02 AM Referred By: REFERRED SELF Confirmed By:Alex Taylor
[2021-09-18 08:30] LABS: Basophils # (auto) 0.03 K/uL (0-0.2); Basophils % (auto) 0.8 %; Eosinophils # (auto) 0.11 K/uL (0-0.5); Eosinophils % (auto) 2.8 %; Hematocrit (blood only) 37.9 % (37-47); Hemoglobin 12.5 g/dL (12.0-16.0); Immature Granulocytes # (auto) 0.02 K/uL (0.00-0.02); Immature Granulocytes % (auto) 0.5 %; Lymphocytes # (auto) 1.45 K/uL (1.2-3.4); Lymphocytes % (auto) 36.3 %; Mean Corpuscular Hemoglobin 28.3 pg (25-34); Mean Corpuscular Volume 85.9 fL (80-100); Mean Platelet Volume 11.7 fL (7.4-10.4); Monocytes # (auto) 0.44 K/uL (0.11-0.59); Neutrophils # (auto) 1.95 K/uL (1.4-6.5); Neutrophils % (auto) 48.6 %; Platelet Count 141 K/uL (130-400); RDW Coefficient of Variation 16.9 % (11.5-14.5); RDW Standard Deviation 52.8 fL (36.4-46.3); Red Blood Count 4.41 M/uL (4.2-5.4)
[2021-09-18] MEDS: SPIRONOLACTONE 12.5 MG TAB PO SCH (09:09)
[2021-09-18] MEDS: BACITRACIN OINT 15 GM TUBE EXT SCH (09:10)
[2021-09-18] MEDS: ASPIRIN 81 MG ECTAB PO SCH (09:10)
[2021-09-18] MEDS: FUROSEMIDE 40 MG/4 ML VIAL IV SCH (09:10)
[2021-09-18] MEDS: METOPROLOL TARTRATE 50 MG TAB PO SCH (09:11)
[2021-09-18] MEDS: PANCREAZE (LIPASE 4,200U) CAP PO SCH ×2 (09:11→11:55)
[2021-09-18] MEDS: PANTOprazole 40 MG TAB PO SCH (09:11)
[2021-09-18] MEDS: POTASSIUM CHLORIDE 20 MEQ/15 ML UDC PO SCH ×2 (09:13→13:46)
[2021-09-18] MEDS: PREGABALIN 150 MG CAP PO SCH (09:18)
[2021-09-18] MEDS: oxyCODONE HCL IR 5 MG TAB (IMMEDIATE RELEASE) PO PRN ×2 (09:18→14:49)
[2021-09-18 09:24] LABS: Albumin Globulin Ratio 0.7 (0.9-2); BUN Creatinine Ratio 16.8 (10-20); Calcium 8.8 mg/dl (8.5-10.1); Creatinine Clr Calc Pharmacy 58.9 ml/min; Est GFR (African American) 65.6 ml/min; Est GFR (Non-African American) 56.6 ml/min; Globulin 4.3 gm/dl (2.5-4.0); Potassium 3.7 mmol/L (3.5-5.1); Total Protein 7.3 gm/dl (6.4-8.2)
[2021-09-18 09:27] LABS: Bilirubin,Total 0.3 mg/dl (0.2-1)
--- NOTE | 2021-09-18 14:27 | Discharge Summary ---
Date of Service September 18, 2021 Admission HPI Per Admitting Provider The patient is a 61-year-old female with a past medical history including anxiety with depression, chronic alcoholism, chronic pancreatitis, GERD, insomnia, stump neuralgia, atrial fibrillation with RVR, hyponatremia, hypertension, tobacco use disorder, COPD, HFpEF, mitral regurgitation, chronic A. fib, PVD, dyslipidemia, and status post left BKA. Significant laboratories: Sodium 123, potassium 3.5, serum osmolality 263, BNP 1746 Patient is COVID-19 positive, after previously having been negative on 04/22, 05/31 and 08/07. Pulse ox 98% on room air Principal Diagnosis Acute on chronic diastolic heart failure Hyponatremia from volume overload Discharge Exam General: well developed, well nourished, no acute distress, comfortable Neck: supple, trachea midline, normal thyroid Lungs: clear to auscultation bilaterally, normal respiratory effort, no accessory muscle use, no distress Heart: regular S1 and S2, no murmur, peripheral pulses normal, capillary refill normal, no edema Abdomen: soft, NT, ND, + BS, no hepatomegaly, normal to percussion Extremities: left BKA, stump is well healed and clean, no cyanosis, no petechiae, strength is 5/5 bilaterally Neuro: awake, cooperative, moves all extremities, no focal motor deficits, CN II-XII intact, sensation in extremities intact, normal speech Skin: warm, dry, bruising from fall, small skin tear left inguinal area Psych: Awake, alert oriented x 3, euthymic affect Discharge Data Allergies Allergy/AdvReac Type Severity Reaction Status Date / Time adhesive Allergy Severe SEVERE Verified 09/16/21 21:19 SKIN IRRITATION guanfacine Allergy Intermediate BP PROBLEMS Verified 09/16/21 21:19 nifedipine Allergy Intermediate BP PROBLEMS Verified 09/16/21 21:19 acetaminophen AdvReac Severe LIVER Verified 09/16/21 21:19 DAMAGE-DUE TO FAILURE amoxicillin AdvReac Severe LIVER Verified 09/16/21 21:19 FAILURE clavulanic acid AdvReac Severe LIVER Verified 09/16/21 21:19 FAILURE Consultations 09/16/21 22:45 ED Decision to Admit Stat Ordered Studies 09/16/21 20:44 CT abd pelvis IV con only Stat CT angio chest PE protocol Stat CT cervical spine wo con Stat CT head/brain wo con Stat Hospital Course (1) Acute hyponatremia: Acute hyponatremia- typically runs 128-131 per patient Sodium 123 on admission, serum osmolality 263, urine osmolality 146, suggesting volume overload good response to Lasix 40mg IV Na up to 128 continue Bumex 2mg PO BID and fluid restriction at home has a follow up with Dr. Murcia on 09/25, keep that appointment (2) Acute heart failure with preserved ejection fraction (HFpEF): HFpEF/hypertension/chronic atrial fibrillation- troponin negative, no issues on tele Lasix IV 40 mg every morning Continue aspirin, metoprolol tartrate with hold parameters, spironolactone and Xarelto appears euvolemic continue Bumex 2mg PO BID that was started by Dr. Zarate follow up with Dr. Zarate (3) COVID-19: COVID-19 infection- No signs of pneumonia or hypoxia, lung parenchyma is completely normal on CT chest May be contributing to some generalized aches and pains told her to quarantine 10-12 days from diagnosis no role for dexamethasone (4) HTN (hypertension): See above (5) Chronic atrial fibrillation: See above (6) Dyslipidemia: Continue atorvastatin 80 mg at bedtime (7) PVD (peripheral vascular disease): Treat along with heart issues (8) Chronic alcoholism: Monitor for withdrawal, but would not place on AWSS at this time (9) GERD (gastroesophageal reflux disease): Continue pantoprazole (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: Continue amitriptyline, Lyrica Total Time Total Time Spent Total Time Spent (In Minutes): 32 minutes Discharge Plan Discharge Items Patient Disposition: Home - Self-Care Reason For Visit: HYPONATREMIA, S/P FALL, COVID-19 Discharge Diagnosis: Hyponatremia Volume overload Condition on Discharge: Good Goals: fluid restriction continue Bumex 2mg twice a day follow up closely with nephrology and cardiology Activity: Resume your previous activity Driving/Machine Use: No limitations Weightbearing: Full weightbearing Non-emergency contact: Primary Care Provider Call non-emergency contact if: you have any medication questions Follow-up/Referrals: Carlo Murcia DO [Physician] - (on 09/25 as scheduled) Brandon Zarate DO [Physician] - (3-4 weeks) Janie Back PA-C [Primary Care Provider] - (1 week) Diet: Heart Healthy Fluids: 1500ml (6 cups) Addtl Attending Provider Instructions: Medications: no change Sodium is up to 128 with diuresis and fluid restriction please follow up with Dr. Murcia on 09/25 as sheduled COVID 19: no need for oxygen, lungs are clear with no signs of viral pneumonia on CT of the chest Pending Studies at Discharge: No Stand-Alone Forms: My [facility], Smoking Cessation Medications and DC Order Prescriptions: New potassium chloride 20 mEq tablet extended release 20 meq PO BID Qty: 60 RF: 2 Continued Xarelto 20 mg tablet 20 mg PO HS RF: 0 Creon 3,000-9,500- 15,000 unit capsule,delayed release(DR/EC) 1 cap PO TIDM RF: 0 triamcinolone acetonide 0.1 % cream 1 appln TOP DAILY PRN (Reason: NEEDED) RF: 0 spironolactone [Aldactone] 25 mg tablet 12.5 mg PO BID RF: 0 amitriptyline 25 mg tablet 25 mg PO HS RF: 0 atorvastatin [Lipitor] 80 mg tablet 80 mg PO HS RF: 0 pantoprazole [Protonix] 40 mg tablet,delayed release (DR/EC) 40 mg PO QAM RF: 0 zolpidem [Ambien] 10 mg tablet 10 mg PO HS RF: 0 diclofenac sodium [Voltaren Arthritis Pain] 1 % gel 2 g TOPICAL UD RF: 0 ondansetron 4 mg tablet,disintegrating 4 mg PO Q6 PRN (Reason: nausea and vomiting) Qty: 14 RF: 0 aspirin [Aspirin Low Dose] 81 mg Tablet,Delayed Release (Dr/Ec) 81 mg PO QAM RF: 0 cevimeline [Evoxac] 30 mg Capsule 1 cap PO TID RF: 0 oxycodone [Roxicodone] 5 mg tablet 5 mg PO Q6H PRN (Reason: pain) RF: 0 metoprolol tartrate [Lopressor] 50 mg tablet 50 mg PO BID Qty: 0 RF: 0 bumetanide 2 mg tablet 2 mg PO BID RF: 0 Discontinued furosemide [Lasix] 40 mg tablet 40 mg PO QAM Qty: 30 RF: 0 Discharge Orders: Discharge Order (Routine); Ordered 09/18/21 Ordered By: Bon Rebollar Admission Data Admit Date/Time: 09/16/21 23:48 Attending Provider: Bon Rebollar Admit Provider: Vince Adams Primary Care Provider: Janie Back Other Providers: Vince Adams Other Interventions: Discharge Summary Assessment (RN) Last Done: 09/18/21 14:33 Coding Level of Care Code D/C DAY MANAGEMENT >30 MINS Diagnoses Acute hyponatremia E87.1 Acute heart failure with preserved ejection fraction (HFpEF) I50.31 COVID-19 U07.1 HTN (hypertension) I10 Chronic atrial fibrillation I48.20 Dyslipidemia E78.5 PVD (peripheral vascular disease) I73.9 Chronic alcoholism F10.20 GERD (gastroesophageal reflux disease) K21.9 Esophagitis presence: esophagitis presence not specified Stump neuralgia M79.2
== END 2021-09-18 15:21 | disposition home or self-care (01) | DRG 291 ==
LOC: ED 16:34 → 2S 23:48 → SUATTDRO 23:48 → 2S 09-17 00:44

== ENCOUNTER 2021-10-24 13:54 | Inpatient (IN) ==
[2021-10-24 14:33] LABS: Basophils # (auto) 0.04 K/uL (0-0.2); Basophils % (auto) 0.4 %; Eosinophils # (auto) 0.14 K/uL (0-0.5); Eosinophils % (auto) 1.4 %; Hematocrit (blood only) 38.9 % (37-47); Hemoglobin 13.3 g/dL (12.0-16.0); Immature Granulocytes # (auto) 0.01 K/uL (0.00-0.02); Immature Granulocytes % (auto) 0.1 %; Lymphocytes # (auto) 1.63 K/uL (1.2-3.4); Lymphocytes % (auto) 16.5 %; Mean Corpuscular Hemoglobin 29.3 pg (25-34); Mean Corpuscular Hgb Conc 34.2 g/dL (32-36); Mean Corpuscular Volume 85.7 fL (80-100); Mean Platelet Volume 11.9 fL (7.4-10.4); Monocytes # (auto) 0.53 K/uL (0.11-0.59); Monocytes % (auto) 5.4 %; Neutrophils # (auto) 7.54 K/uL (1.4-6.5); Neutrophils % (auto) 76.2 %; Platelet Count 183 K/uL (130-400); RDW Coefficient of Variation 17.8 % (11.5-14.5); RDW Standard Deviation 56.1 fL (36.4-46.3); Red Blood Count 4.54 M/uL (4.2-5.4); White Blood Count 9.89 K/uL (4.8-10.8)
--- NOTE | 2021-10-24 14:52 | Emergency Department Note ---
Impression & Plan Acute hyponatremia, Acute hypokalemia, Weakness ED Provider Note NAME: TIARA MCCALL AGE: 61 SEX: F : 1960 ARRIVES VIA: Walk-In INFORMANT: Patient ED PROVIDER(S): Julian Gerard DO CHIEF COMPLAINT: Low sodium HPI: Patient is a 61-year-old female who presents to the ER for low sodium. She feels weak and rundown. Patient was on hospice and switched to palliative care. She was referred in for further work-up. She denies headache or change in vision. No chest pain or shortness of breath. No nausea, vomiting or diarrhea. No dysuria, urgency, or frequency. No other exacerbating or remitting factors. Patient denies all other complaints at this time. ROS: See above HPI for pertinent positives & negatives. A total of 10 systems reviewed and were otherwise negative. PAST MEDICAL HISTORY:See Below PAST SURGICAL HISTORY:See Below FAMILY HISTORY:See Below SOCIAL HISTORY:See Below HOME MEDICATIONS:See Below ALLERGIES:See Below VITALS:See Below PHYSICAL EXAMINATION: GENERAL: Sitting up in bed, alert, ill-appearing, disheveled EYE EXAM: normal conjunctiva. OROPHARYNX: no exudate, no erythema, lips, buccal mucosa, and tongue normal and mucous membranes are moist NECK: supple, no nuchal rigidity, no adenopathy, non-tender LUNGS: Clear to auscultation. Normal chest wall mechanics HEART: no murmurs, S1 normal and S2 normal ABDOMEN: abdomen soft, non-tender, normo-active bowel sounds, no masses, no rebound or guarding. UPPER EXTREMITIES: upper extremities are grossly normal. LOWER EXTREMITIES: Left lower extremity BKA NEURO EXAM: Normal sensorium, cranial nerves II-XII grossly intact, normal speech, no gross weakness of arms, no gross weakness of legs. MEDICAL DECISION MAKING: Patient is a 61-year-old female on palliative care who presents the ER for low sodium. IV was established with orders obtained. Labs show no significant leukocytosis or anemia. VBG with a slightly elevated CO2 at 72. BMP with mild hyponatremia 124. Potassium low at 2.6. LFTs bilirubin was unremarkable. Lipase was normal. Patient was given IV fluids oral potassium and IV potassium along with IV magnesium. Katie with the hospitalist for further evaluation. Triage Nursing notes reviewed. Limited review of prior medical records performed Vital Signs: reviewed and remarkable for no significant abnormalities Differential diagnosis: Infection, dehydration, metabolic abnormality, hypo/hyperglycemia, electrolyte disturbance, anemia, hypoxia, cardiac sources, intracerebral event, toxicologic, neurologic, as well as other pathologies. ER treatment provided: See below Diagnostics interpreted by me: ECG: none Cardiac Monitoring: An order was placed for continuous cardiac monitoring. The monitor shows a rate of 60 with sinus rhythm. Laboratory studies: As stated above and show below. Imaging studies: See below Consultation(s): none Procedures: none Critical Care: None Past Med/Surg History Medical History Anxiety and depression Arthritis COVID-19 TRISTAN (dyspnea on exertion) DVT (deep venous thrombosis) 40+ years ago Dyslipidemia GERD (gastroesophageal reflux disease) Hx of gastric ulcer Hx of migraines Hx of pancreatitis Chronic Neuropathy Pacemaker Dual-chamber, implanted 2018 (high grade AVB/sinus node dysfunction), RenovoRxtronic, follows with Dr. Zarate Paroxysmal atrial fibrillation PVD (peripheral vascular disease) Severe mitral regurgitation Per patient, attempt for MitraClip ([facility]) was performed but unsuccessful (07/2021) Surgical History H/O vascular surgery Bilateral femoral endarterectomy with iliac stent (2016) History of amputation REVISION OF AMPUTATION LLE History of appendectomy History of cardiac cath (~04/24/21) @ [facility] with Dr. Carbajal, no stents placed History of colonoscopy History of esophagogastroduodenoscopy (EGD) History of surgery (~07/30/21) Attempt for MitraClip ([facility]) was performed but unsuccessful (07/2021) History of tooth extraction S/P angiogram of extremity right lower leg Status post below knee amputation of left lower extremity Status post ORIF of fracture of ankle ORIF closed displaced trimalleolar left ankle fracture (2016) Family History Unknown No problems noted. Father Family history of diabetes mellitus Other No family history of adverse response to anesthesia Social History Smoking Status: Current every day smoker Tobacco Type: Cigarettes Cigarettes Per Day: 5-15; Second Hand Exposure: Yes; Hx Alcohol Use: No Hx Substance Use: Yes Last Used Substance: Unknown Substance Use Type Other:: Patient has medical marijuana card. Preferred Language: Latvian Communication Ability: Effective Deck Officer Required: No Beliefs That Will Affect Care: None marital status: Current Living Situation: Spouse current occupation: Retired How many Children do You have: 1 Feels Safe at Home: Yes Assistive Devices: None Allergies Allergies Allergy/AdvReac Type Severity Reaction Status Date / Time adhesive Allergy Severe SEVERE Verified 10/24/21 14:47 SKIN IRRITATION guanfacine Allergy Intermediate BP PROBLEMS Verified 10/24/21 14:47 nifedipine Allergy Intermediate BP PROBLEMS Verified 10/24/21 14:47 acetaminophen AdvReac Severe LIVER Verified 10/24/21 14:47 DAMAGE-DUE TO FAILURE amoxicillin AdvReac Severe LIVER Verified 10/24/21 14:47 FAILURE clavulanic acid AdvReac Severe LIVER Verified 10/24/21 14:47 FAILURE Home Meds Home Medications Medication Instructions Recorded Confirmed pantoprazole 40 mg tablet,delayed 40 mg PO QAM 07/18/18 10/24/21 release (Protonix) atorvastatin 80 mg tablet (Lipitor) 80 mg PO HS tab 06/06/19 10/24/21 lipase 3,000-protease 1 cap PO TIDM 07/31/19 10/24/21 9,500-amylase 15,000 unit capsule, delayed rel (Creon) aspirin 81 mg tablet,delayed 81 mg PO QAM 12/19/19 10/24/21 release (Aspirin Low Dose) amitriptyline 25 mg tablet 25 mg PO HS 07/17/20 10/24/21 cevimeline 30 mg capsule (Evoxac) 1 cap PO TID 01/08/21 10/24/21 bumetanide 2 mg tablet 2 mg PO BID 09/16/21 10/24/21 metolazone 2.5 mg tablet 2.5 mg PO DAILY 10/24/21 10/24/21 pregabalin 300 mg capsule 300 mg PO DAILY 10/24/21 10/24/21 spironolactone 25 mg tablet 25 mg PO DAILY 10/24/21 10/24/21 zolpidem 10 mg tablet 10 mg PO DAILY 10/24/21 10/24/21 Previous Rx's Medication Instructions Recorded metoprolol tartrate 50 mg tablet 50 mg PO BID #0 tab 04/26/21 (Lopressor) potassium chloride 20 mEq 20 meq PO BID #60 tab 09/18/21 tablet,extended release Results & Data (ED) Vital Signs Vital Signs - 24 hr 10/24/21 13:58 10/24/21 14:07 Temperature 36.8 C Temperature Source Oral Pulse Rate 57 L Respiratory Rate 24 Respiratory Effort / Characteristics Non-Labored Spontaneous Respiratory Depth Normal Blood Pressure 102/69 Blood Pressure Mean 80 Pulse Oximetry 97 95 Oxygen Delivery Method Room Air Room Air Sepsis Recent Fever Within 48 Hours No Sepsis New/Unexplained Change in Mental Status No Sepsis Action Taken by Nursing No Action Required Laboratory Data Result diagrams: 10/24/21 14:23 10/24/21 14:23 Lab Results 10/24/21 10/24/21 10/24/21 Range/Units 14:23 14:23 14:24 WBC 9.89 (4.8-10.8) K/uL RBC 4.54 (4.2-5.4) M/uL Hgb 13.3 (12.0-16.0) g/dL Hct 38.9 (37-47) % MCV 85.7 (80-100) fL MCH 29.3 (25-34) pg MCHC 34.2 (32-36) g/dL RDW Std Deviation 56.1 H (36.4-46.3) fL RDW Coeff of Marlon 17.8 H (11.5-14.5) % Plt Count 183 (130-400) K/uL MPV 11.9 H (7.4-10.4) fL Immature Gran % (Auto) 0.1 % Neut % (Auto) 76.2 % Lymph % (Auto) 16.5 % [place] % (Auto) 5.4 % Eos % (Auto) 1.4 % Baso % (Auto) 0.4 % Neut # (Auto) 7.54 H (1.4-6.5) K/uL Lymph # (Auto) 1.63 (1.2-3.4) K/uL [place] # (Auto) 0.53 (0.11-0.59) K/uL Eos # (Auto) 0.14 (0-0.5) K/uL Baso # (Auto) 0.04 (0-0.2) K/uL Immature Gran # (Auto) 0.01 (0.00-0.02) K/uL VBG pH (7.36-7.41) VBG pCO2 (38-50) mmHg VBG pO2 mmHg VBG HCO3 mmol/L VBG O2 Saturation % VBG Base Excess mEq/L Barometric Pressure mm/Hg Sodium 124 L (136-145) mmol/L Potassium 2.6 L (3.5-5.1) mmol/L Chloride 76 L (98-107) mmol/L Carbon Dioxide 40 H (21-32) mmol/L Anion Gap 8 (3-11) BUN 17 (6-23) mg/dl Creatinine 0.87 (0.6-1.2) mg/dl Est Cr Clr Drug Dosing 71.4 ml/min Est GFR ( Amer) 83.3 ml/min Est GFR (Non-Af Amer) 71.9 ml/min BUN/Creatinine Ratio 19.5 (10-20) Glucose 129 H (70-99(Fasting)) mg/dl Osmolality (280-300) mOsm/kg Calcium 9.3 (8.5-10.1) mg/dl Magnesium 2.3 (1.7-2.4) mg/dl Total Bilirubin 1.0 (0.2-1.0) mg/dl AST 33 (13-39) U/L ALT 14 (7-52) U/L Alkaline Phosphatase 129 H (34-104) U/L Total Protein 7.2 (6.0-8.3) gm/dl Albumin 3.7 (3.4-5.0) gm/dl Globulin 3.5 (2.5-4.0) gm/dl Albumin/Globulin Ratio 1.1 (0.9-2) Lipase 44 (11-82) U/L 10/24/21 10/24/21 Range/Units 14:24 16:04 WBC (4.8-10.8) K/uL RBC (4.2-5.4) M/uL Hgb (12.0-16.0) g/dL Hct (37-47) % MCV (80-100) fL MCH (25-34) pg MCHC (32-36) g/dL RDW Std Deviation (36.4-46.3) fL RDW Coeff of Marlon (11.5-14.5) % Plt Count (130-400) K/uL MPV (7.4-10.4) fL Immature Gran % (Auto) % Neut % (Auto) % Lymph % (Auto) % [place] % (Auto) % Eos % (Auto) % Baso % (Auto) % Neut # (Auto) (1.4-6.5) K/uL Lymph # (Auto) (1.2-3.4) K/uL [place] # (Auto) (0.11-0.59) K/uL Eos # (Auto) (0-0.5) K/uL Baso # (Auto) (0-0.2) K/uL Immature Gran # (Auto) (0.00-0.02) K/uL VBG pH 7.40 (7.36-7.41) VBG pCO2 72 H (38-50) mmHg VBG pO2 20 mmHg VBG HCO3 43 mmol/L VBG O2 Saturation < 60.0 % VBG Base Excess 14.6 mEq/L Barometric Pressure 731.7 mm/Hg Sodium (136-145) mmol/L Potassium (3.5-5.1) mmol/L Chloride (98-107) mmol/L Carbon Dioxide (21-32) mmol/L Anion Gap (3-11) BUN (6-23) mg/dl Creatinine (0.6-1.2) mg/dl Est Cr Clr Drug Dosing ml/min Est GFR ( Amer) ml/min Est GFR (Non-Af Amer) ml/min BUN/Creatinine Ratio (10-20) Glucose (70-99(Fasting)) mg/dl Osmolality 268 L (280-300) mOsm/kg Calcium (8.5-10.1) mg/dl Magnesium (1.7-2.4) mg/dl Total Bilirubin (0.2-1.0) mg/dl AST (13-39) U/L ALT (7-52) U/L Alkaline Phosphatase (34-104) U/L Total Protein (6.0-8.3) gm/dl Albumin (3.4-5.0) gm/dl Globulin (2.5-4.0) gm/dl Albumin/Globulin Ratio (0.9-2) Lipase (11-82) U/L Administered Medications Discontinued Medications Magnesium Sulfate/Dextrose (Magnesium Sulfate / D5w) 1 gm in 100 mls @ 100 ml s/hr IV NOW STA Stop: 10/24/21 16:04 Last Admin: 10/24/21 15:52 Dose: 100 mls/hr Documented by: [id number] Sodium Chloride (Nss) 500 mls @ 999 mls/hr IV .Q31M ONE Stop: 10/24/21 15:36 Last Infusion: 10/24/21 16:45 Dose: 0 mls/hr Documented by: [id number] Admin: 10/24/21 15:51 Dose: 999 mls/hr Documented by: [id number] Magnesium Hydroxide (Magnesium Hydroxide Susp 30 Ml Udc) 30 ml PO NOW ONE Stop: 10/24/21 15:49 Last Admin: 10/24/21 16:48 Dose: 30 ml Documented by: [id number] Potassium Chloride (Potassium Chloride Crtab 20 Meq Tabcr) 40 meq PO NOW STA Stop: 10/24/21 15:06 Last Admin: 10/24/21 16:02 Dose: Not Given Documented by: [id number] Potassium Chloride (Potassium Chloride 20 Meq/15 Ml Udc) 40 meq PO NOW STA Stop: 10/24/21 16:05 Last Admin: 10/24/21 16:43 Dose: 40 meq Documented by: [id number] Discharge Plan Visit Data Chief Complaint: Abnormal Labs/Diagnostic Testing Stated Complaint: SODIUM LEVELS ARE LOW ED Provider: Julian Gerard Discharge Problem: Acute hyponatremia, Acute hypokalemia, Weakness Forms Stand Alone Forms: [facility] Prescriptions Prescriptions: No Action Creon 3,000-9,500- 15,000 unit capsule,delayed release(DR/EC) 1 cap PO TIDM RF: 0 amitriptyline 25 mg tablet 25 mg PO HS RF: 0 atorvastatin [Lipitor] 80 mg tablet 80 mg PO HS RF: 0 pantoprazole [Protonix] 40 mg tablet,delayed release (DR/EC) 40 mg PO QAM RF: 0 aspirin [Aspirin Low Dose] 81 mg Tablet,Delayed Release (Dr/Ec) 81 mg PO QAM RF: 0 cevimeline [Evoxac] 30 mg Capsule 1 cap PO TID RF: 0 metoprolol tartrate [Lopressor] 50 mg tablet 50 mg PO BID Qty: 0 RF: 0 bumetanide 2 mg tablet 2 mg PO BID RF: 0 potassium chloride 20 mEq tablet extended release 20 meq PO BID Qty: 60 RF: 2 metolazone 2.5 mg tablet 2.5 mg PO DAILY RF: 0 spironolactone 25 mg tablet 25 mg PO DAILY RF: 0 zolpidem 10 mg tablet 10 mg PO DAILY RF: 0 pregabalin 300 mg capsule 300 mg PO DAILY RF: 0 Referrals Referrals: Janie Back PA-C [Primary Care Provider] -
[2021-10-24 14:53] LABS: Albumin Globulin Ratio 1.1 (0.9-2); Albumin Level 3.7 gm/dl (3.4-5.0); BUN Creatinine Ratio 19.5 (10-20); Calcium 9.3 mg/dl (8.5-10.1); Creatinine Clr Calc Pharmacy 71.4 ml/min; Est GFR (African American) 83.3 ml/min; Est GFR (Non-African American) 71.9 ml/min; Globulin 3.5 gm/dl (2.5-4.0); Potassium 2.6 mmol/L (3.5-5.1); Total Protein 7.2 gm/dl (6.0-8.3)
[2021-10-24] MEDS ORDERED: MAGNESIUM SULFATE / D5W 1 GM/100 ML BAG IV STA (15:05)
[2021-10-24] MEDS ORDERED: POTASSIUM CHLORIDE CRTAB 20 MEQ TABCR PO STA (15:05)
[2021-10-24] MEDS ORDERED: SODIUM CHLORIDE 0.9% 500 ML IV ONE (15:06)
[2021-10-24] MEDS ORDERED: MAGNESIUM HYDROXIDE SUSP 30 ML UDC PO ONE (15:48)
[2021-10-24] MEDS ORDERED: LACTATED RINGER'S 1,000 ML IV ONE (15:55)
[2021-10-24] MEDS ORDERED: LACTATED RINGER'S 250 ML IV ONE (15:57)
[2021-10-24] MEDS ORDERED: POTASSIUM CHLORIDE 20 MEQ/15 ML UDC PO STA (16:04)
--- NOTE | 2021-10-24 16:08 | History & Physical Report ---
Date of Service October 24, 2021 Assessment & Plan (1) Hyponatremia: Plan: Acute on chronic hyponatremia - Appears to be hypovolemia hyponatremia with associated contractile alkalosis - 500ml Saline given in EMD- follow with LR 75 ml x1 liter - Should also increase with replacing her potassium level of 2.6 - Serum Osmo- 263 - Urine NA- pending on admission - Urine Osmo- pending on admission - Increase 8 mmol in 24 hours - Hold diuretics for tonight- likely able to restart in morning - Glucose normal, renal function normal, (2) Metabolic alkalosis: Plan: Primary appears as contractile alkalosis with concurrent diuretic use/chloride depletion and associated with constipation - PH 7.4, CO2 72, HCO3 43 - should resolve with chloride replacement via IVF and holding diuretic tonight - Pending her urine studies as above- free water restrict - if need arises to diurese secondary to any pulmonary symptoms with volume- give diamox - Also likely contributing to alkalosis is constipation - MOM 30 cc x1 now, start senna/docusate today (3) Hypokalemia: Plan: K 2.6 - hold diureitics - 40 KCL now, repeat 40 MEQ tonight and 40 MEQ in am - follow (4) Hypochloremia: Plan: As above hypovolemic volume as above (5) Chronic alcoholism: Plan: Chronic EOTH use and chronic pancreatitis - continue with creon (6) Atrial fibrillation with rapid ventricular response: Plan: With dual chamber pacemaker in - Continue BB - Continue Xarelto 20mg PO daily (7) (HFpEF) heart failure with preserved ejection fraction: Plan: As above - Hold diuretics for today- if needed can add back, but give dose of diamox with them - Should be able to re-start in am (8) Mitral regurgitation: Plan: Severe MR with failed clipping - she is in hospice care- which was changed to paliative care today per the so she can continue to receive lab draws - Follow fluid volume status (9) GERD (gastroesophageal reflux disease): Plan: COntinue PPI (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 She follows with Dr. Zarate for cardiology and Dr. Murcia for nephrology. Patient comes in to the EMD today for abnormal lab results. She has been feeling jittery, with increase fatigued and weakness over the past few days- she normally feels like this when her sodium is lower. She also endorsed no BM over the past week, but is still eating without any nausea. The patient was admitted in September 16 for hypervolemic hyponatremia- was placed on 1500ml fluid restriction which her reports for the last few weeks has been about 2-3 glasses of water a day and continuing to take her diuretics. In the EMD the patient had routine labs drawn, that revealed NA level of 124, K 2.6, HCO3 40, CL 76. Patient will be admitted to continue to replete her electrolytes and support her fluid volume status. VBG is pending - but as above likely has multifactorial metabolic alkalosis with hypovolemia hyponatremia and constipation. She is without peripheral edmea or crackles on auscultation, and mucous membranes are dry. Patient had COVID in August- COVID test on admission is: PENDING Allergies Allergy/AdvReac Type Severity Reaction Status Date / Time adhesive Allergy Severe SEVERE Verified 10/24/21 14:47 SKIN IRRITATION guanfacine Allergy Intermediate BP PROBLEMS Verified 10/24/21 14:47 nifedipine Allergy Intermediate BP PROBLEMS Verified 10/24/21 14:47 acetaminophen AdvReac Severe LIVER Verified 10/24/21 14:47 DAMAGE-DUE TO FAILURE amoxicillin AdvReac Severe LIVER Verified 10/24/21 14:47 FAILURE clavulanic acid AdvReac Severe LIVER Verified 10/24/21 14:47 FAILURE Home Medications Medication Instructions Recorded Confirmed Type pantoprazole 40 mg tablet,delayed 40 mg PO QAM 07/18/18 10/24/21 History release (Protonix) atorvastatin 80 mg tablet (Lipitor) 80 mg PO HS tab 06/06/19 10/24/21 History lipase 3,000-protease 1 cap PO TIDM 07/31/19 10/24/21 History 9,500-amylase 15,000 unit capsule, delayed rel (Creon) aspirin 81 mg tablet,delayed 81 mg PO QAM 12/19/19 10/24/21 History release (Aspirin Low Dose) amitriptyline 25 mg tablet 25 mg PO HS 07/17/20 10/24/21 History cevimeline 30 mg capsule (Evoxac) 1 cap PO TID 01/08/21 10/24/21 History metoprolol tartrate 50 mg tablet 50 mg PO BID #0 tab 04/26/21 10/24/21 Rx (Lopressor) bumetanide 2 mg tablet 2 mg PO BID 09/16/21 10/24/21 History potassium chloride 20 mEq 20 meq PO BID #60 tab 09/18/21 10/24/21 Rx tablet,extended release pregabalin 300 mg capsule 300 mg PO DAILY 10/24/21 10/24/21 History zolpidem 10 mg tablet 10 mg PO DAILY 10/24/21 10/24/21 History rivaroxaban 20 mg tablet (Xarelto) 20 mg PO DAILY@1800 30 Days #30 tab 10/27/21 Rx Past Med/Surg History Medical History Anxiety and depression Arthritis COVID-19 TRISTAN (dyspnea on exertion) DVT (deep venous thrombosis) 40+ years ago Dyslipidemia GERD (gastroesophageal reflux disease) Hx of gastric ulcer Hx of migraines Hx of pancreatitis Chronic Neuropathy Pacemaker Dual-chamber, implanted 2018 (high grade AVB/sinus node dysfunction), Medtronic, follows with Dr. Zarate Paroxysmal atrial fibrillation PVD (peripheral vascular disease) Severe mitral regurgitation Per patient, attempt for MitraClip ([facility]) was performed but unsuccessful (07/2021) Surgical History H/O vascular surgery Bilateral femoral endarterectomy with iliac stent (2016) History of amputation REVISION OF AMPUTATION LLE History of appendectomy History of cardiac cath (~04/24/21) @ [facility] with Dr. Carbajal, no stents placed History of colonoscopy History of esophagogastroduodenoscopy (EGD) History of surgery (~07/30/21) Attempt for MitraClip ([facility]) was performed but unsuccessful (07/2021) History of tooth extraction S/P angiogram of extremity right lower leg Status post below knee amputation of left lower extremity Status post ORIF of fracture of ankle ORIF closed displaced trimalleolar left ankle fracture (2017) Family History Unknown No problems noted. Father Family history of diabetes mellitus Other No family history of adverse response to anesthesia Social History Smoking Status: Current every day smoker Tobacco Type: Cigarettes Cigarettes Per Day: 10; Second Hand Exposure: Yes; Hx Alcohol Use: Yes Alcohol type: beer Hx Substance Use: No Preferred Language: Mauritian Communication Ability: Effective Transportation Escort Required: No Beliefs That Will Affect Care: None marital status: Current Living Situation: Spouse current occupation: Retired How many Children do You have: 1 Feels Safe at Home: Yes Assistive Devices: Walker and Wheelchair Review of Systems Review of Systems: REVIEW OF SYSTEMS: Constitutional: (+) thirst No fever, sweats or chills Eyes: No diplopia, no worsening or blurred vision ENT: normal hearing, no trouble swallowing Respiratory: No cough, sputum, dyspnea at rest or on exertion Cardiovascular: No chest pain, tightness or palpitations Abdomen: No pain, nausea, vomiting, diarrhea or constipation Musculoskeletal: (+) tremor, phantom/neuropathic pain to left lower leg amputaton, No joint pain, calf pain, swelling Neurologic: (+) weakness, numbness/tingling, balance problems Psychiatric: No anxiety or depression Skin: No rash or itch Physical Exam Physical Exam: PHYSICAL EXAM: General: awake, alert, no apparent distress Head: Normocephalic, atraumatic ENT: PERRL, EOMI, no pharyngeal exudate, mucous membranes moist Neuro: AAO x 3, speech clear and appropriate, strength intact bilaterally 5/5, sensation intact and equal all extremities and dermatomes, no pronator drift Chest: equal rise and fall of the chest, no accessory muscle use, no heaves or thrills, Clear to auscultation, on room air, Cardiac: irregular rate and rhythm, telemetry reviewed- afib with v-pace, skin warm dry, cap refill <3 seconds, peripheral pulses +2 no JVD, systolic murmur holosystolic, no edema GI: NABS x 4 quadrants, soft, nontender to palpation, no rebound, guarding or tenderness : Spontaneously voiding, no pain, no CVA tenderness, Extremities: Normal inspection, left lower leg amputation Psych: Normal mood and affect Skin: no rash or erythema Results & Data Results & Data ([facility]) Vital Signs (Past 12 Hours) Vital Signs Temp Pulse Resp BP Pulse Ox 10/24/21 14:07 95 10/24/21 13:58 36.8 C 57 L 24 102/69 97 Laboratory Results Abnormal lab results 10/24/21 10/24/21 Range/Units 14:23 14:23 RDW Std Deviation 56.1 H (36.4-46.3) fL RDW Coeff of Marlon 17.8 H (11.5-14.5) % MPV 11.9 H (7.4-10.4) fL Neut # (Auto) 7.54 H (1.4-6.5) K/uL Sodium 124 L (136-145) mmol/L Potassium 2.6 L (3.5-5.1) mmol/L Chloride 76 L (98-107) mmol/L Carbon Dioxide 40 H (21-32) mmol/L Glucose 129 H (70-99(Fasting)) mg/dl Alkaline Phosphatase 129 H (34-104) U/L Diagnostic Findings NONE Medications Administered Home Medications pantoprazole 40 mg tablet,delayed release (Protonix) 40 mg PO QAM 07/18/18 [History Confirmed 10/24/21] atorvastatin 80 mg tablet (Lipitor) 80 mg PO HS tab 06/06/19 [History Confirmed 10/24/21] lipase 3,000-protease 9,500-amylase 15,000 unit capsule, delayed rel (Creon) 1 cap PO TIDM 07/31/19 [History Confirmed 10/24/21] aspirin 81 mg tablet,delayed release (Aspirin Low Dose) 81 mg PO QAM 12/19/19 [History Confirmed 10/24/21] amitriptyline 25 mg tablet 25 mg PO HS 07/17/20 [History Confirmed 10/24/21] cevimeline 30 mg capsule (Evoxac) 1 cap PO TID 01/08/21 [History Confirmed 10/24/21] metoprolol tartrate 50 mg tablet (Lopressor) 50 mg PO BID #0 tab 04/26/21 [Rx Confirmed 10/24/21] bumetanide 2 mg tablet 2 mg PO BID 09/16/21 [History Confirmed 10/24/21] potassium chloride 20 mEq tablet,extended release 20 meq PO BID #60 tab 09/18/21 [Rx Confirmed 10/24/21] metolazone 2.5 mg tablet 2.5 mg PO DAILY 10/24/21 [History Confirmed 10/24/21] pregabalin 300 mg capsule 300 mg PO DAILY 10/24/21 [History Confirmed 10/24/21] spironolactone 25 mg tablet 25 mg PO DAILY 10/24/21 [History Confirmed 10/24/21] zolpidem 10 mg tablet 10 mg PO DAILY 10/24/21 [History Confirmed 10/24/21] Active Medications Magnesium Sulfate/Dextrose (Magnesium Sulfate / D5w) 1 gm in 100 mls @ 100 mls/hr IV NOW STA Stop: 10/24/21 16:04 Last Admin: 10/24/21 15:52 Dose: 100 mls/hr Documented by: Lactated Ringer's (Lr) 1,000 mls @ 75 mls/hr IV .[id number] ONE Stop: 10/25/21 05:14 Lactated Ringer's (Lr) 250 mls @ 999 mls/hr IV .Q16M ONE Stop: 10/24/21 16:12 Potassium Chloride (Potassium Chloride Crtab 20 Meq Tabcr) 40 meq PO QAM ONE Stop: 10/25/21 09:01 Magnesium Sulfate/Dextrose (Magnesium Sulfate / D5w) 1 gm in 100 mls @ 100 mls/hr IV NOW STA Stop: 10/24/21 16:04 Last Admin: 10/24/21 15:52 Dose: 100 mls/hr Documented by: [id number] Discontinued Medications Sodium Chloride (Nss) 500 mls @ 999 mls/hr IV .Q31M ONE Stop: 10/24/21 15:36 Last Admin: 10/24/21 15:51 Dose: 999 mls/hr Documented by: [id number] ECG Additional Comments: Pending on admission - Afib on monitor Code Status & VTE Plan Code Status CODE: DNR/DNI VTE: SCDs, Xarelto 20mg PO daily VTE Prophylaxis Plan VTE Prophylaxis will be ordered: Yes Supervising Physician Co-Signing Physician Notes Patient seen and examined at bedside. Obtained a physical examination and history during face to face encounter with patient, Discussed plan of care with JOYCE Florence. I reviewed above note and agree with it. Patient is admitted with acute on chronic hyponatremia. obtain above genaro, hold diuretics for now. PG Care Time/CCT Total # of Minutes Spent Total Time Spent with Patient: Total time spent is greater than 50% in coordination of care (as documented) at patient's floor/unit and/or counseling patient: Coding Level of Care Code 82773 Initial Inpt Care Lvl 3 Diagnoses Chronic alcoholism F10.20 GERD (gastroesophageal reflux disease) K21.9 Esophagitis presence: esophagitis presence not specified Stump neuralgia M79.2 Atrial fibrillation with rapid ventricular response I48.91 Pacemaker Z95.0 (HFpEF) heart failure with preserved ejection fraction I50.30 Hypokalemia E87.6 Hypochloremia E87.8 Metabolic alkalosis E87.3 Mitral regurgitation I34.0 Hyponatremia E87.1 (1) GERD (gastroesophageal reflux disease) Esophagitis presence: esophagitis presence not specified Qualified Code(s): K21.9 - Gastro-esophageal reflux disease without esophagitis
[2021-10-24 16:15] LABS: Base Excess VBG 14.6 mEq/L; HCO3 VBG 43 mmol/L; PCO2 VBG 72 mmHg (38-50); PO2 VBG 20 mmHg
[2021-10-24 16:26] LABS: Oxygen Saturation VBG < 60.0 %
[2021-10-24] MEDS ORDERED: POTASSIUM CHLORIDE CRTAB 20 MEQ TABCR PO ONE (20:14)
[2021-10-24] MEDS ORDERED: ACETAMINOPHEN 325 MG TAB PO PRN (20:14)
[2021-10-24] MEDS ORDERED: POLYETHYLENE (MIRALAX) 17 GM PACK PO PRN (20:14)
[2021-10-24] MEDS ORDERED: CEVIMELINE 30 MG PO SCH (21:00)
[2021-10-24] MEDS: RIVAROXABAN 20 MG TAB PO SCH (21:14)
[2021-10-24] MEDS: ATORVASTATIN 40 MG TAB PO SCH (21:14)
[2021-10-24] MEDS: DOCUSATE SODIUM/SENNA 50/8.6MG TAB PO SCH (21:15)
[2021-10-24] MEDS: AMITRIPTYLINE HCL 25 MG TAB PO SCH (21:15)
[2021-10-24] MEDS: METOPROLOL TARTRATE 50 MG TAB PO SCH (21:16)
[2021-10-24] MEDS: ZOLPIDEM TARTRATE 10 MG TAB PO SCH (21:18)
[2021-10-24 21:56] LABS: BUN Creatinine Ratio 22.1 (10-20); Calcium 8.7 mg/dl (8.5-10.1); Creatinine Clr Calc Pharmacy 80.7 ml/min; Est GFR (African American) 96.6 ml/min; Est GFR (Non-African American) 83.3 ml/min; Potassium 2.7 mmol/L (3.5-5.1)
[2021-10-25 06:43] LABS: Basophils # (auto) 0.04 K/uL (0-0.2); Basophils % (auto) 0.5 %; Eosinophils # (auto) 0.24 K/uL (0-0.5); Eosinophils % (auto) 2.7 %; Hematocrit (blood only) 37.7 % (37-47); Hemoglobin 12.6 g/dL (12.0-16.0); Immature Granulocytes # (auto) 0.02 K/uL (0.00-0.02); Immature Granulocytes % (auto) 0.2 %; Lymphocytes # (auto) 1.69 K/uL (1.2-3.4); Lymphocytes % (auto) 19.1 %; Mean Corpuscular Hemoglobin 28.9 pg (25-34); Mean Corpuscular Hgb Conc 33.4 g/dL (32-36); Mean Corpuscular Volume 86.5 fL (80-100); Mean Platelet Volume 11.7 fL (7.4-10.4); Monocytes # (auto) 0.72 K/uL (0.11-0.59); Monocytes % (auto) 8.1 %; Neutrophils # (auto) 6.16 K/uL (1.4-6.5); Neutrophils % (auto) 69.4 %; Platelet Count 155 K/uL (130-400); RDW Coefficient of Variation 18.1 % (11.5-14.5); RDW Standard Deviation 57.3 fL (36.4-46.3); Red Blood Count 4.36 M/uL (4.2-5.4); White Blood Count 8.87 K/uL (4.8-10.8)
[2021-10-25 06:55] LABS: Appearance Urine Clear (Clear); Bilirubin Urine Negative (Negative); Blood Urine Negative (Negative); Color Urine Yellow; Glucose Urine UA Negative (Negative); Ketones Urine Negative (Negative); Leukocyte Esterase Urine Negative (Negative); Nitrite Urine Negative (Negative); Protein Urine Negative (Negative); Specific Gravity Urine 1.011 (1.000-1.030); Urobilinogen Urine Positive (Negative); pH Urine 8.5 (4.5-7.5)
[2021-10-25 07:31] LABS: Creatinine Clr Calc Pharmacy 88.8 ml/min; Est GFR (African American) 108.4 ml/min; Est GFR (Non-African American) 93.5 ml/min; Magnesium 2.5 mg/dl (1.7-2.4); Potassium 2.8 mmol/L (3.5-5.1)
[2021-10-25 07:49] LABS: Creatinine Urine Random 60.5 mg/dl
[2021-10-25] MEDS ORDERED: POTASSIUM CHLORIDE CRTAB 20 MEQ TABCR PO ONE (09:00)
[2021-10-25] MEDS: METOPROLOL TARTRATE 50 MG TAB PO SCH ×2 (09:19→20:39)
[2021-10-25] MEDS: PANCREAZE (LIPASE 4,200U) CAP PO SCH ×3 (09:19→17:53)
[2021-10-25] MEDS: PANTOprazole 40 MG TAB PO SCH (09:19)
[2021-10-25] MEDS: ASPIRIN 81 MG ECTAB PO SCH (09:20)
[2021-10-25] MEDS: DOCUSATE SODIUM/SENNA 50/8.6MG TAB PO SCH (09:20)
[2021-10-25] MEDS: PREGABALIN 150 MG CAP PO SCH (09:22)
--- NOTE | 2021-10-25 11:32 | Electrocardiogram Report ---
Test Reason : Blood Pressure : / mmHG Vent. Rate : 061 BPM Atrial Rate : 060 BPM P-R Int : 000 ms QRS Dur : 154 ms QT Int : 476 ms P-R-T Axes : 000 -82 098 degrees QTc Int : 479 ms Ventricular-paced rhythm with occasional sinus complexes Atrial fibrillation Abnormal ECG When compared with ECG of 16-SEP-2021 17:07, Electronic ventricular pacemaker now present Vent. rate has decreased BY 37 BPM Confirmed by jM Herrera ([id number]) on 10/25/2021 11:32:04 AM Referred By: Brandon Zarate Confirmed By:Mj Herrera
[2021-10-25] MEDS: POTASSIUM CHLORIDE 20 MEQ/15 ML UDC PO SCH ×2 (12:23→20:39)
--- NOTE | 2021-10-25 15:44 | Hospitalist Progress Note ---
Date of Service October 25, 2021 Assessment & Plan (1) Hyponatremia: Plan: Acute on chronic hyponatremia - Appears to be hypovolemia hyponatremia with associated contractile alkalosis - 500ml Saline given in EMD- follow with LR 75 ml x1 liter - Na up to 127 from 119, acceptable increase - Serum Osmo- 263 resume diuretics tomorrow check BMP in AM (2) Metabolic alkalosis: Plan: Primary appears as contractile alkalosis with concurrent diuretic use/chloride depletion and associated with constipation - PH 7.4, CO2 72, HCO3 43 - should resolve with chloride replacement via IVF and holding diuretic tonight - HCO3 down to 37 from 41 (3) Hypokalemia: Plan: K 2.8 from 2.6 give KCl elixir 40mEq BID BMP in AM (4) Hypochloremia: Plan: As above hypovolemic volume as above (5) Chronic alcoholism: Plan: Chronic EOTH use and chronic pancreatitis - continue with creon (6) Atrial fibrillation with rapid ventricular response: Plan: With dual chamber pacemaker in - Continue BB - Continue Xarelto 20mg PO daily (7) (HFpEF) heart failure with preserved ejection fraction: Plan: hold diuretics again today (8) Mitral regurgitation: Plan: Severe MR with failed clipping - she is in hospice care- which was changed to paliative care today per the so she can continue to receive lab draws - Follow fluid volume status (9) GERD (gastroesophageal reflux disease): Plan: COntinue PPI (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: Plan: Continue her gabapentin Continue amitriptyline (11) Pacemaker: Plan: Dual chamber Medtronic MRI compatible placed 2019 secondary to syncope and high level HB - AAIR with mode switch to DDR - low rate 60 - upper rate 130 - ADL rate repsonsive- 95 Admission and Anticipated Discharge Date Admission Date: October 24, 2021 Subjective patient feeling better, sodium is up to 127 from 119 she says she knows when sodium is low, she gets "jittery" she is eating and drinking well she has been taking all her medications she says she was on hospice but changed to palliative care she wants to keep taking medications, getting treatment but if she would get worse then make her comfortable I reviewed labs and chart K is low at 2.8, she request elixir as cannot swallow pills no chest pain, no dyspnea, no fever, no nausea, no vomiting, no diarrhea, no cough Review of Systems Review of Systems: All systems reviewed & are unremarkable except as noted in Subjective Physical Exam Physical Exam: General: well developed, well nourished, no acute distress, comfortable Neck: supple, trachea midline, normal thyroid Lungs: clear to auscultation bilaterally, normal respiratory effort, no accessory muscle use, no distress Heart: regular S1 and S2, + systolic murmur, peripheral pulses normal, capillary refill normal, no edema Abdomen: soft, NT, ND, + BS, no hepatomegaly, normal to percussion Extremities: normal in appearance, no cyanosis, no petechiae, strength is 5/5 bilaterally Neuro: awake, cooperative, moves all extremities, no focal motor deficits, CN II-XII intact, sensation in extremities intact, normal speech Skin: warm, dry, no rash, normal turgor Psych: Awake, alert oriented x 3, euthymic affect Results & Data Results & [facility] ([facility]) Vital Signs (Past 12 Hours) Vital Signs Temp Pulse Resp BP Pulse Ox 10/25/21 15:14 36.5 C 66 14 94/49 L 97 10/25/21 08:12 36.7 C 60 14 101/69 93 Laboratory Results Laboratory Results - last 24 hr 10/24/21 10/25/21 10/25/21 21:00 06:23 06:23 WBC 8.87 RBC 4.36 Hgb 12.6 Hct 37.7 MCV 86.5 MCH 28.9 MCHC 33.4 RDW Std Deviation 57.3 H RDW Coeff of Marlon 18.1 H Plt Count 155 MPV 11.7 H Immature Gran % (Auto) 0.2 Neut % (Auto) 69.4 Lymph % (Auto) 19.1 [place] % (Auto) 8.1 Eos % (Auto) 2.7 Baso % (Auto) 0.5 Neut # (Auto) 6.16 Lymph # (Auto) 1.69 [place] # (Auto) 0.72 H Eos # (Auto) 0.24 Baso # (Auto) 0.04 Immature Gran # (Auto) 0.02 Sodium 125 L 127 L Potassium 2.7 L 2.8 L Chloride 78 L 82 L Carbon Dioxide 41 H* 37 H Anion Gap 6 8 BUN 17 14 Creatinine 0.77 0.70 Est Cr Clr Drug Dosing 80.7 88.8 Est GFR ( Amer) 96.6 108.4 Est GFR (Non-Af Amer) 83.3 93.5 BUN/Creatinine Ratio 22.1 H 20.0 Glucose 92 104 H Calcium 8.7 9.0 Magnesium 2.5 H Urine Color Urine Appearance Urine pH Ur Specific [place] Urine Protein Urine Glucose (UA) Urine Ketones Urine Blood Urine Nitrite Urine Bilirubin Urine Urobilinogen Ur Leukocyte Esterase Ur Random Creatinine Ur Random Sodium Ur Random Urea Nitrogn 10/25/21 10/25/21 10/25/21 06:40 06:40 06:40 WBC RBC Hgb Hct MCV MCH MCHC RDW Std Deviation RDW Coeff of Marlon Plt Count MPV Immature Gran % (Auto) Neut % (Auto) Lymph % (Auto) [place] % (Auto) Eos % (Auto) Baso % (Auto) Neut # (Auto) Lymph # (Auto) [place] # (Auto) Eos # (Auto) Baso # (Auto) Immature Gran # (Auto) Sodium Potassium Chloride Carbon Dioxide Anion Gap BUN Creatinine Est Cr Clr Drug Dosing Est GFR ( Amer) Est GFR (Non-Af Amer) BUN/Creatinine Ratio Glucose Calcium Magnesium Urine Color Yellow Urine Appearance Clear Urine pH 8.5 H Ur Specific [place] 1.011 Urine Protein Negative Urine Glucose (UA) Negative Urine Ketones Negative Urine Blood Negative Urine Nitrite Negative Urine Bilirubin Negative Urine Urobilinogen Positive H Ur Leukocyte Esterase Negative Ur Random Creatinine 60.5 Ur Random Sodium 45 Ur Random Urea Nitrogn Pending Medications Administered Current Inpatient Medications Amitriptyline HCl (Amitriptyline Hcl 25 Mg Tab) 25 mg PO [facility] Stop: 11/23/21 20:59 Last Admin: 10/25/21 20:40 Dose: 25 mg Documented by: Lipase/Protease/Amylase (Pancreaze (Lipase 4,200u) Cap) 1 cap PO TIDM [facility] Stop: 11/24/21 07:59 Last Admin: 10/25/21 17:53 Dose: 1 cap Documented by: Aspirin (Aspirin 81 Mg Ectab) 81 mg PO QAM [facility] Stop: 11/24/21 08:59 Last Admin: 10/25/21 09:20 Dose: 81 mg Documented by: Atorvastatin Calcium (Atorvastatin 40 Mg Tab) 80 mg PO HS [facility] Stop: 11/23/21 20:59 Last Admin: 10/25/21 20:38 Dose: 80 mg Documented by: Metoprolol Tartrate (Metoprolol Tartrate 50 Mg Tab) 50 mg PO BID [facility] Stop: 11/23/21 20:59 Last Admin: 10/25/21 20:39 Dose: Not Given Documented by: Pantoprazole Sodium (Pantoprazole 40 Mg Tab) 40 mg PO QAM [facility] Stop: 11/24/21 08:59 Last Admin: 10/25/21 09:19 Dose: 40 mg Documented by: Polyethylene Glycol (Polyethylene (Miralax) 17 Gm Pack) 17 gm PO DAILY PRN PRN Reason: Constipation Stop: 11/23/21 20:13 Potassium Chloride (Potassium Chloride 20 Meq/15 Ml Udc) 40 meq PO BID [facility] Stop: 11/24/21 10:29 Last Admin: 10/25/21 20:39 Dose: 40 meq Documented by: Pregabalin (Pregabalin 150 Mg Cap) 300 mg PO DAILY [facility] Stop: 11/24/21 08:59 Last Admin: 10/25/21 09:22 Dose: 300 mg Documented by: Rivaroxaban (Rivaroxaban 20 Mg Tab) 20 mg PO DAILY@1800 [facility] Stop: 11/23/21 20:13 Last Admin: 10/25/21 17:53 Dose: 20 mg Documented by: Senna/Docusate Sodium (Docusate Sodium/Senna 50/8.6mg Tab) 1 tab PO QAM [facility] Stop: 11/23/21 20:13 Last Admin: 10/25/21 09:20 Dose: 1 tab Documented by: Zolpidem Tartrate (Zolpidem Tartrate 10 Mg Tab) 10 mg PO HS [facility] Stop: 11/23/21 20:59 Last Admin: 10/25/21 20:41 Dose: 10 mg Documented by: PG Care Time/CCT Total # of Minutes Spent Total Time Spent with Patient: Total time spent is greater than 50% in coordination of care (as documented) at patient's floor/unit and/or counseling patient: Coding Level of Care Code 60766 Subseq Hosp Care Lvl 3 Diagnoses Hyponatremia E87.1 Metabolic alkalosis E87.3 Hypokalemia E87.6 Hypochloremia E87.8 Chronic alcoholism F10.20 Atrial fibrillation with rapid ventricular response I48.91 (HFpEF) heart failure with preserved ejection fraction I50.30 Mitral regurgitation I34.0 GERD (gastroesophageal reflux disease) K21.9 Esophagitis presence: esophagitis presence not specified Stump neuralgia M79.2 Pacemaker Z95.0 (1) GERD (gastroesophageal reflux disease) Esophagitis presence: esophagitis presence not specified Qualified Code(s): K21.9 - Gastro-esophageal reflux disease without esophagitis
[2021-10-25] MEDS: RIVAROXABAN 20 MG TAB PO SCH (17:53)
[2021-10-25] MEDS: ATORVASTATIN 40 MG TAB PO SCH (20:38)
[2021-10-25] MEDS: AMITRIPTYLINE HCL 25 MG TAB PO SCH (20:40)
[2021-10-25] MEDS: ZOLPIDEM TARTRATE 10 MG TAB PO SCH (20:41)
[2021-10-26] MEDS: PANCREAZE (LIPASE 4,200U) CAP PO SCH ×3 (08:18→17:33)
[2021-10-26] MEDS: ASPIRIN 81 MG ECTAB PO SCH (08:19)
[2021-10-26] MEDS: METOPROLOL TARTRATE 50 MG TAB PO SCH ×2 (08:19→20:17)
[2021-10-26] MEDS: PREGABALIN 150 MG CAP PO SCH (08:19)
[2021-10-26] MEDS: PANTOprazole 40 MG TAB PO SCH (08:19)
[2021-10-26] MEDS: DOCUSATE SODIUM/SENNA 50/8.6MG TAB PO SCH (08:19)
[2021-10-26] MEDS: POTASSIUM CHLORIDE 20 MEQ/15 ML UDC PO SCH ×2 (08:20→20:18)
[2021-10-26 08:27] LABS: Basophils # (auto) 0.05 K/uL (0-0.2); Basophils % (auto) 0.5 %; Hematocrit (blood only) 35.2 % (37-47); Hemoglobin 11.7 g/dL (12.0-16.0); Immature Granulocytes # (auto) 0.03 K/uL (0.00-0.02); Immature Granulocytes % (auto) 0.3 %; Lymphocytes # (auto) 1.42 K/uL (1.2-3.4); Lymphocytes % (auto) 14.5 %; Mean Corpuscular Hgb Conc 33.2 g/dL (32-36); Mean Corpuscular Volume 87.1 fL (80-100); Mean Platelet Volume 11.4 fL (7.4-10.4); Monocytes # (auto) 0.46 K/uL (0.11-0.59); Monocytes % (auto) 4.7 %; Neutrophils # (auto) 7.66 K/uL (1.4-6.5); Platelet Count 142 K/uL (130-400); RDW Coefficient of Variation 18.2 % (11.5-14.5); RDW Standard Deviation 58.7 fL (36.4-46.3); Red Blood Count 4.04 M/uL (4.2-5.4); White Blood Count 9.82 K/uL (4.8-10.8)
[2021-10-26 09:11] LABS: BUN Creatinine Ratio 17.6 (10-20); Calcium 8.5 mg/dl (8.5-10.1); Creatinine Clr Calc Pharmacy 91.4 ml/min; Est GFR (African American) 109.4 ml/min; Est GFR (Non-African American) 94.4 ml/min; Magnesium 1.9 mg/dl (1.7-2.4); Phosphorus 2.1 mg/dl (2.5-4.9); Potassium 3.5 mmol/L (3.5-5.1)
[2021-10-26] MEDS: BUMETANIDE 1 MG TAB PO SCH ×2 (14:31→20:16)
--- NOTE | 2021-10-26 16:28 | XRay Report ---
XR chest 1V portable CLINICAL HISTORY: hypoxia COMPARISON STUDY: Chest radiograph and chest CT September 16, 2021. FINDINGS: Dual-lead left subclavian pacemaker is in place. Mild cardiomegaly is noted. This is unchan ged. Interstitial thickening has developed. No consolidation is identified. There is no pneumothorax or pleural effusion. Calcified nodules within the lungs are benign. IMPRESSION: Mild interstitial pulmonary edema. ACT 112: Negative or not required by law. Electronically signed by: Diogo Johnson M.D. 10/26/2021 4:27 PM
[2021-10-26] MEDS: RIVAROXABAN 20 MG TAB PO SCH (17:33)
[2021-10-26] MEDS: ZOLPIDEM TARTRATE 10 MG TAB PO SCH (20:16)
[2021-10-26] MEDS: AMITRIPTYLINE HCL 25 MG TAB PO SCH (20:16)
[2021-10-26] MEDS: ATORVASTATIN 40 MG TAB PO SCH (20:17)
[2021-10-26] MEDS ORDERED: ACETAMINOPHEN 325 MG TAB PO STA (20:41)
[2021-10-27 06:37] LABS: Basophils # (auto) 0.03 K/uL (0-0.2); Basophils % (auto) 0.4 %; Eosinophils # (auto) 0.24 K/uL (0-0.5); Eosinophils % (auto) 2.8 %; Hemoglobin 11.9 g/dL (12.0-16.0); Immature Granulocytes # (auto) 0.03 K/uL (0.00-0.02); Immature Granulocytes % (auto) 0.4 %; Lymphocytes # (auto) 1.83 K/uL (1.2-3.4); Lymphocytes % (auto) 21.7 %; Mean Corpuscular Hemoglobin 28.7 pg (25-34); Mean Corpuscular Hgb Conc 33.1 g/dL (32-36); Mean Platelet Volume 11.8 fL (7.4-10.4); Monocytes # (auto) 0.52 K/uL (0.11-0.59); Monocytes % (auto) 6.2 %; Neutrophils # (auto) 5.78 K/uL (1.4-6.5); Neutrophils % (auto) 68.5 %; Platelet Count 136 K/uL (130-400); RDW Coefficient of Variation 18.4 % (11.5-14.5); RDW Standard Deviation 59.2 fL (36.4-46.3); Red Blood Count 4.14 M/uL (4.2-5.4); White Blood Count 8.43 K/uL (4.8-10.8)
[2021-10-27 07:07] LABS: Calcium 8.4 mg/dl (8.5-10.1); Creatinine Clr Calc Pharmacy 82.9 ml/min; Est GFR (African American) 99.7 ml/min; Magnesium 1.4 mg/dl (1.7-2.4); Phosphorus 2.7 mg/dl (2.5-4.9); Potassium 3.3 mmol/L (3.5-5.1)
[2021-10-27] MEDS: DOCUSATE SODIUM/SENNA 50/8.6MG TAB PO SCH (08:44)
[2021-10-27] MEDS: PANCREAZE (LIPASE 4,200U) CAP PO SCH ×2 (08:44→12:36)
[2021-10-27] MEDS: BUMETANIDE 1 MG TAB PO SCH (08:44)
[2021-10-27] MEDS: ASPIRIN 81 MG ECTAB PO SCH (08:44)
[2021-10-27] MEDS: PANTOprazole 40 MG TAB PO SCH (08:45)
[2021-10-27] MEDS: MAGNESIUM SULFATE / D5W 1 GM/100 ML BAG IV SCH ×3 (08:45→12:29)
[2021-10-27] MEDS: POTASSIUM CHLORIDE 20 MEQ/15 ML UDC PO SCH ×2 (08:45→13:31)
[2021-10-27] MEDS: METOPROLOL TARTRATE 50 MG TAB PO SCH (08:45)
[2021-10-27] MEDS: PREGABALIN 150 MG CAP PO SCH (08:51)
--- NOTE | 2021-10-27 10:51 | Discharge Summary ---
Date of Service October 27, 2021 Admission HPI Per Admitting Provider 61 YOF with past medical history of: Chronic hyponatremia, ETOH abuse, HFpEF, Afib (on Xarelto) with pacer secondary to high degree hb (Medtronic dual-chamber pacemaker), severe mitral regurge (failed clipping of the mitral valve- now on palliative care), COVID 19. She follows with Dr. Zarate for cardiology and Dr. Murcia for nephrology. Patient comes in to the EMD today for abnormal lab results. She has been feeling jittery, with increase fatigued and weakness over the past few days- she normally feels like this when her sodium is lower. She also endorsed no BM over the past week, but is still eating without any nausea. The patient was admitted in September 16 for hypervolemic hyponatremia- was placed on 1500ml fluid restriction which her reports for the last few weeks has been about 2-3 glasses of water a day and continuing to take her diuretics. In the EMD the patient had routine labs drawn, that revealed NA level of 124, K 2.6, HCO3 40, CL 76. Patient will be admitted to continue to replete her electrolytes and support her fluid volume status. VBG is pending - but as above likely has multifactorial metabolic alkalosis with hypovolemia hyponatremia and constipation. She is without peripheral edmea or crackles on auscultation, and mucous membranes are dry. Patient had COVID in August- COVID test on admission is: PENDING Principal Diagnosis Acute hyponatremia and hypokalemia Discharge Exam General: well developed, well nourished, no acute distress, comfortable Neck: supple, trachea midline, normal thyroid Lungs: clear to auscultation bilaterally, normal respiratory effort, no accessory muscle use, no distress Heart: regular S1 and S2, + systolic murmur, peripheral pulses normal, capillary refill normal, no edema Abdomen: soft, NT, ND, + BS, no hepatomegaly, normal to percussion Extremities: normal in appearance, no cyanosis, no petechiae, strength is 5/5 bilaterally Neuro: awake, cooperative, moves all extremities, no focal motor deficits, CN II-XII intact, sensation in extremities intact, normal speech Skin: warm, dry, no rash, normal turgor Psych: Awake, alert oriented x 3, euthymic affect Discharge Data Allergies Allergy/AdvReac Type Severity Reaction Status Date / Time adhesive Allergy Severe SEVERE Verified 10/24/21 14:47 SKIN IRRITATION guanfacine Allergy Intermediate BP PROBLEMS Verified 10/24/21 14:47 nifedipine Allergy Intermediate BP PROBLEMS Verified 10/24/21 14:47 acetaminophen AdvReac Severe LIVER Verified 10/24/21 14:47 DAMAGE-DUE TO FAILURE amoxicillin AdvReac Severe LIVER Verified 10/24/21 14:47 FAILURE clavulanic acid AdvReac Severe LIVER Verified 10/24/21 14:47 FAILURE Consultations 10/24/21 15:06 ED Decision to Admit Stat Hospital Course (1) Hyponatremia: Acute on chronic hyponatremia suspect this was due to loss of sodium and volume with excessive diuretics as she was on Bumex, metolazone and spironolactone daily - evidence of contractile alkalosis with HCO3 > 40 on admission gave NSS on admission, resumed just Bumex 2mg PO BID on 10/26 Na up to 130 today which is in her baseline range on discharge, will have her only use Bumex 2mg BID could use metolazone PRN for weight gain of 2-3 lbs but would not use daily check labs in 3-4 days follow up with PCP (2) Metabolic alkalosis: Primary appears as contractile alkalosis with concurrent diuretic use/chloride depletion and associated with constipation - PH 7.4, CO2 72, HCO3 43 - HCO3 down to 29 now that volume status is normal (3) Hypokalemia: K up to 3.3 continue BID replacement was likely really low with using metolazone daily, stopping metolazone (4) Hypochloremia: up to 93 (5) Chronic alcoholism: Chronic EOTH use and chronic pancreatitis - continue with creon (6) Atrial fibrillation with rapid ventricular response: With dual chamber pacemaker in - Continue BB - Continue Xarelto 20mg PO daily (7) (HFpEF) heart failure with preserved ejection fraction: resumed only Bumex (8) Mitral regurgitation: Severe MR with failed clipping - she is in hospice care- which was changed to paliative care today per the so she can continue to receive lab draws - Follow fluid volume status (9) GERD (gastroesophageal reflux disease): COntinue PPI (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: Continue her gabapentin Continue amitriptyline (11) Pacemaker: Dual chamber Medtronic MRI compatible placed 2018 secondary to syncope and high level HB - AAIR with mode switch to DDR - low rate 60 - upper rate 130 - ADL rate repsonsive- 95 discharge to home on Bumex 2mg BID stop taking metolazone daily as I suspect that caused the hypovolemia, hyponatremia and hypokalemia check labs in a few days Total Time Total Time Spent Total Time Spent (In Minutes): 32 Discharge Plan Discharge Items Patient Disposition: Home - Self-Care Reason For Visit: HYPONATREMIA, HYPOKALEMIA, ELEVATED HC03 Discharge Diagnosis: Hyponatremia, hypokalemia Hypovolemic from excessive diuretics Condition on Discharge: Good Goals: monitor volume status on Bumex check labs later this week Activity: Resume your previous activity Non-emergency contact: Primary Care Provider Call non-emergency contact if: you have any medication questions and your symptoms worsen Follow-up/Referrals: Janie Back PA-C [Primary Care Provider] - (one week) Diet: Heart Healthy Ambulatory Orders: Basic Metabolic Panel (Routine) Timeframe: 3 Days Location: Determined by Patient Ordered By: Bon Damon Attending Provider Instructions: Medications: - STOP taking METOLAZONE and SPIRONOLACTONE continue using BUMEX twice a day for volume control suspect the lower sodium was due to excessive diuretics, difficult to find a balance the very best way to know if you are gaining volume is to weight yourself every single day if your weight goes up by 2-3lb from a baseline weight then you are retaining fluid and could use an extra dose of diuretic for now continue on Bumex 2mg twice a day I would propose that if you gain 2-3lbs from baseline, take a dose of Metolazone 2.5mg that morning, so only use it as needed for weight gain check labs on , will give you lab script Pending Studies at Discharge: No Stand-Alone Forms: My [facility] Webs, Smoking Cessation Medications and DC Order Prescriptions: New Xarelto 20 mg Tablet 20 mg PO DAILY@1800 30 Days Qty: 30 RF: 0 Continued Creon 3,000-9,500- 15,000 unit capsule,delayed release(DR/EC) 1 cap PO TIDM RF: 0 amitriptyline 25 mg tablet 25 mg PO HS RF: 0 atorvastatin [Lipitor] 80 mg tablet 80 mg PO HS RF: 0 pantoprazole [Protonix] 40 mg tablet,delayed release (DR/EC) 40 mg PO QAM RF: 0 aspirin [Aspirin Low Dose] 81 mg Tablet,Delayed Release (Dr/Ec) 81 mg PO QAM RF: 0 cevimeline [Evoxac] 30 mg Capsule 1 cap PO TID RF: 0 metoprolol tartrate [Lopressor] 50 mg tablet 50 mg PO BID Qty: 0 RF: 0 bumetanide 2 mg tablet 2 mg PO BID RF: 0 potassium chloride 20 mEq tablet extended release 20 meq PO BID Qty: 60 RF: 2 zolpidem 10 mg tablet 10 mg PO DAILY RF: 0 pregabalin 300 mg capsule 300 mg PO DAILY RF: 0 Discontinued metolazone 2.5 mg tablet 2.5 mg PO DAILY RF: 0 spironolactone 25 mg tablet 25 mg PO DAILY RF: 0 Discharge Orders: Discharge Order (Routine); Ordered 10/27/21 Ordered By: Bon Rebollar Admission Data Admit Date/Time: 10/24/21 15:44 Attending Provider: Bon Rebollar Admit Provider: Sebastien Oconnor Primary Care Provider: Janie Back Other Providers: Sebastien Oconnor Coding Level of Care Code D/C DAY MANAGEMENT >30 MINS Diagnoses Hyponatremia E87.1 Metabolic alkalosis E87.3 Hypokalemia E87.6 Hypochloremia E87.8 Chronic alcoholism F10.20 Atrial fibrillation with rapid ventricular response I48.91 (HFpEF) heart failure with preserved ejection fraction I50.30 Mitral regurgitation I34.0 GERD (gastroesophageal reflux disease) K21.9 Esophagitis presence: esophagitis presence not specified Stump neuralgia M79.2 Pacemaker Z95.0
[2021-10-28 11:36] LABS: Urea Nitrogen, Random Urine 525 mg/dL
== END 2021-10-27 14:45 | disposition home or self-care (01) | DRG 641 ==
LOC: ED 13:54 → SUATTDRO 15:44 → 3N 15:44

== ENCOUNTER 2021-11-20 16:33 | Inpatient (IN) ==
[2021-11-20 17:24] LABS: Hematocrit (blood only) 42.4 % (37-47); Mean Corpuscular Hemoglobin 29.6 pg (25-34); Mean Corpuscular Hgb Conc 35.4 g/dL (32-36); Mean Corpuscular Volume 83.6 fL (80-100); Mean Platelet Volume 10.8 fL (7.4-10.4); Platelet Count 174 K/uL (130-400); RDW Coefficient of Variation 17.7 % (11.5-14.5); RDW Standard Deviation 53.5 fL (36.4-46.3); Red Blood Count 5.07 M/uL (4.2-5.4); White Blood Count 10.75 K/uL (4.8-10.8)
[2021-11-20 17:49] LABS: Alanine Aminotransferase 20 U/L (7-52); Albumin Globulin Ratio 1.1 (0.9-2); Albumin Level 4.3 gm/dl (3.4-5.0); Alkaline Phosphatase 141 U/L (34-104); Anion Gap 10 (3-11); Aspartate Aminotransferase 38 U/L (13-39); BUN Creatinine Ratio 16.5 (10-20); Bilirubin,Total 0.6 mg/dl (0.2-1.0); Blood Urea Nitrogen 16 mg/dl (6-23); Carbon Dioxide 39 mmol/L (21-32); Chloride 74 mmol/L (98-107); Est GFR (African American) 73.1 ml/min; Glucose 114 mg/dl (70-99(Fasting)); Potassium 2.3 mmol/L (3.5-5.1); Sodium 123 mmol/L (136-145); Total Protein 8.3 gm/dl (6.0-8.3)
[2021-11-20 17:50] LABS: Basophils # (auto) 0.07 K/uL (0-0.2); Basophils % (auto) 0.7 %; Eosinophils % (auto) 2.8 %; Immature Granulocytes # (auto) 0.02 K/uL (0.00-0.02); Immature Granulocytes % (auto) 0.2 %; Lymphocytes # (auto) 2.22 K/uL (1.2-3.4); Lymphocytes % (auto) 20.7 %; Monocytes # (auto) 0.96 K/uL (0.11-0.59); Monocytes % (auto) 8.9 %; Neutrophils # (auto) 7.18 K/uL (1.4-6.5); Neutrophils % (auto) 66.7 %; Polychromasia 1+
--- NOTE | 2021-11-20 17:51 | Emergency Department Note ---
History of Present Illness General Chief complaint: Abnormal Labs/Diagnostic Testing Stated complaint: 122 LOW SODIUM, REFERRED Time Seen by Provider: 11/20/21 17:40 Source: patient History of Present Illness Provider complaint: Lightheaded and weak Onset (ago): day(s) Location: head Pain Consistency: + constant Maximum Pain Intensity: 10 Quality: + other (Lightheaded and no energy) Relieved By: + none Associated symptoms: + nausea/vomiting (Nausea no vomiting) and + weakness; no chest pain, no cough, no fever/chills, no headaches or no shortness of breath StatesThis is a 61-year-old female sent here because her sodium is 122 today. The patient has her labs drawn weekly. She that she started feeling dizzy which she describes as lightheadedness. She states her symptoms started yesterday. She usually feels lightheaded, nauseous and has no energy when her sodium drops and this is how she started feeling yesterday. She has not been urinating as much as usual despite being on Bumex. She has not drank very much today she admits. She denies any fever, cough or cold symptoms, chest pain, shortness of breath, abdominal pain, vomiting or diarrhea. Home Medications Medication Instructions Recorded Confirmed Type pantoprazole 40 mg tablet,delayed 40 mg PO QAM 07/18/18 11/20/21 History release (Protonix) atorvastatin 80 mg tablet (Lipitor) 80 mg PO HS tab 06/06/19 11/20/21 History lipase 3,000-protease 1 cap PO TIDM 07/31/19 11/20/21 History 9,500-amylase 15,000 unit capsule, delayed rel (Creon) aspirin 81 mg tablet,delayed 81 mg PO QAM 12/19/19 11/20/21 History release (Aspirin Low Dose) amitriptyline 25 mg tablet 25 mg PO HS 07/17/20 11/20/21 History cevimeline 30 mg capsule (Evoxac) 1 cap PO TID 01/08/21 11/20/21 History metoprolol tartrate 50 mg tablet 50 mg PO BID #0 tab 04/26/21 11/20/21 Rx (Lopressor) bumetanide 2 mg tablet 2 mg PO BID 09/16/21 11/20/21 History potassium chloride 20 mEq 20 meq PO BID #60 tab 09/18/21 11/20/21 Rx tablet,extended release pregabalin 300 mg capsule 300 mg PO BID 10/24/21 11/20/21 History zolpidem 10 mg tablet 10 mg PO DAILY 10/24/21 11/20/21 History rivaroxaban 20 mg tablet (Xarelto) 20 mg PO DAILY@1800 30 Days #30 tab 10/27/21 11/20/21 Rx Allergies Allergy/AdvReac Type Severity Reaction Status Date / Time adhesive Allergy Severe SEVERE Verified 11/20/21 18:00 SKIN IRRITATION guanfacine Allergy Intermediate BP PROBLEMS Verified 11/20/21 18:00 nifedipine Allergy Intermediate BP PROBLEMS Verified 11/20/21 18:00 acetaminophen AdvReac Severe LIVER Verified 11/20/21 18:00 DAMAGE-DUE TO FAILURE amoxicillin AdvReac Severe LIVER Verified 11/20/21 18:00 FAILURE clavulanic acid AdvReac Severe LIVER Verified 11/20/21 18:00 FAILURE Past Med/Surg History Medical History Anxiety and depression Arthritis COVID-19 TRISTAN (dyspnea on exertion) DVT (deep venous thrombosis) 40+ years ago Dyslipidemia GERD (gastroesophageal reflux disease) Hx of gastric ulcer Hx of migraines Hx of pancreatitis Chronic Neuropathy Pacemaker Dual-chamber, implanted 2018 (high grade AVB/sinus node dysfunction), Medtronic, follows with Dr. Zarate Paroxysmal atrial fibrillation PVD (peripheral vascular disease) Severe mitral regurgitation Per patient, attempt for MitraClip ([facility]) was performed but unsuccessful (07/2021) Surgical History H/O vascular surgery Bilateral femoral endarterectomy with iliac stent (2016) History of amputation REVISION OF AMPUTATION LLE History of appendectomy History of cardiac cath (~04/24/21) @ [facility] with Dr. Carbajal, no stents placed History of colonoscopy History of esophagogastroduodenoscopy (EGD) History of surgery (~07/30/21) Attempt for MitraClip ([facility]) was performed but unsuccessful (07/2021) History of tooth extraction S/P angiogram of extremity right lower leg Status post below knee amputation of left lower extremity Status post ORIF of fracture of ankle ORIF closed displaced trimalleolar left ankle fracture (2016) Family History Unknown No problems noted. Father Family history of diabetes mellitus Other No family history of adverse response to anesthesia Social History Smoking Status: Current every day smoker Tobacco Type: Cigarettes Cigarettes Per Day: 10; Second Hand Exposure: Yes; Do You Dip or Chew Tobacco: No; Tobacco Cessation Education Requested by Patient: No Hx Alcohol Use: Yes Alcohol type: beer Hx Substance Use: No Preferred Language: Kyrgyz Communication Ability: Effective [employer] Customer Service Required: No Beliefs That Will Affect Care: None marital status: Current Living Situation: Spouse current occupation: Retired How many Children do You have: 1 Other Information That Helps Us Care for You: No Feels Safe at Home: Yes Safety Concerns: Feels Safe At This Time Assistive Devices: Wheelchair Review of Systems See HPI for pertinent positives & negatives. and A total of 10 systems reviewed and were otherwise negative Physical Exam Vital Signs Vital Signs - 24 hr 11/20/21 16:37 Temperature 36.4 C L Temperature Source Temporal Artery Scan Pulse Rate 73 Respiratory Rate 16 Blood Pressure 114/77 Blood Pressure Mean 89 Pulse Oximetry 96 Oxygen Delivery Method Room Air Sepsis Recent Fever Within 48 Hours No Sepsis New/Unexplained Change in Mental Status No Sepsis Action Taken by Nursing No Action Required Constitutional: Vital signs reviewed. Eyes: Pupils are equal round reactive to light. Conjunctiva are noninjected. ENT: Pharynx is clear without erythema or exudate. Mucous membranes are moist. Neck supple without meningeal signs. Respiratory: Clear to auscultation bilaterally. Breath sounds are equal bilaterally. Cardiovascular: Regular rate and rhythm. No rubs or gallops. GI: Soft, nondistended and nontender. Bowel sounds are present. Musculoskeletal: No peripheral edema. No lower extremity tenderness. Integumentary: No cyanosis. or jaundice. Neurological: The patient is awake and alert. No focal deficits. Psychiatric: Normal affect. Not anxious appearing. Course Administered Medications Discontinued Medications Potassium Chloride (K Hans / Wtr) 10 meq in 100 mls @ 100 mls/hr IV Q1H ZACH; Protocol Stop: 11/20/21 19:59 Last Admin: 11/20/21 18:11 Dose: Not Given Documented by: [id number] Potassium Chloride (Potassium Chloride 10 Meq Tabcr) 20 meq PO NOW STA Stop: 11/20/21 17:55 Last Admin: 11/20/21 18:11 Dose: 20 meq Documented by: [id number] Potassium Chloride (Potassium Chloride 10 Meq Tabcr) 20 meq PO NOW STA Stop: 11/20/21 18:15 Last Admin: 11/20/21 18:16 Dose: 20 meq Documented by: [id number] Medical Decision Making Differential Diagnosis Metabolic derangement, SIADH, diuretic side effect, electrolyte abnormality, hypovolemia, TARIQ Medical Records Attestation: I reviewed the patient's medical records. I did perform a limited focused review of portions of the patient's old chart on the electronic medical record. The patient was admitted to the hospital last month for hyponatremia. This was thought to be secondary to multiple diuretic use. She was discharged on Bumex only. She did have a sodium a week ago which was 130. Her potassium was normal at that time. This morning her sodium was 122 and her potassium is 2.2. Home Medications Current Medication List: was personally reviewed by me Laboratory Data Attestation: I reviewed the patient's lab results. Result diagrams: 11/20/21 17:10 11/20/21 17:10 Lab Results 11/20/21 11/20/21 11/20/21 Range/Units 17:10 17:10 17:10 WBC 10.75 (4.8-10.8) K/uL RBC 5.07 (4.2-5.4) M/uL Hgb 15.0 (12.0-16.0) g/dL Hct 42.4 (37-47) % MCV 83.6 (80-100) fL MCH 29.6 (25-34) pg MCHC 35.4 (32-36) g/dL RDW Std Deviation 53.5 H (36.4-46.3) fL RDW Coeff of Marlon 17.7 H (11.5-14.5) % Plt Count 174 (130-400) K/uL MPV 10.8 H (7.4-10.4) fL Immature Gran % (Auto) 0.2 % Neut % (Auto) 66.7 % Lymph % (Auto) 20.7 % Winkler % (Auto) 8.9 % Eos % (Auto) 2.8 % Baso % (Auto) 0.7 % Neut # (Auto) 7.18 H (1.4-6.5) K/uL Lymph # (Auto) 2.22 (1.2-3.4) K/uL Winkler # (Auto) 0.96 H (0.11-0.59) K/uL Eos # (Auto) 0.30 (0-0.5) K/uL Baso # (Auto) 0.07 (0-0.2) K/uL Immature Gran # (Auto) 0.02 (0.00-0.02) K/uL Polychromasia 1+ Sodium 123 L (136-145) mmol/L Potassium 2.3 L* (3.5-5.1) mmol/L Chloride 74 L (98-107) mmol/L Carbon Dioxide 39 H (21-32) mmol/L Anion Gap 10 (3-11) BUN 16 (6-23) mg/dl Creatinine 0.97 (0.6-1.2) mg/dl Est Cr Clr Drug Dosing Not Reportable Est GFR ( Amer) 73.1 ml/min Est GFR (Non-Af Amer) 63.0 ml/min BUN/Creatinine Ratio 16.5 (10-20) Glucose 114 H (70-99(Fasting)) mg/dl Calcium 10.0 (8.5-10.1) mg/dl Magnesium 2.2 (1.7-2.4) mg/dl Total Bilirubin 0.6 (0.2-1.0) mg/dl AST 38 (13-39) U/L ALT 20 (7-52) U/L Alkaline Phosphatase 141 H (34-104) U/L Total Protein 8.3 (6.0-8.3) gm/dl Albumin 4.3 (3.4-5.0) gm/dl Globulin 4.0 (2.5-4.0) gm/dl Albumin/Globulin Ratio 1.1 (0.9-2) SARS-CoV-2, RNA, NAAT (NEGATIVE) 11/20/21 Range/Units 18:11 WBC (4.8-10.8) K/uL RBC (4.2-5.4) M/uL Hgb (12.0-16.0) g/dL Hct (37-47) % MCV (80-100) fL MCH (25-34) pg MCHC (32-36) g/dL RDW Std Deviation (36.4-46.3) fL RDW Coeff of Marlon (11.5-14.5) % Plt Count (130-400) K/uL MPV (7.4-10.4) fL Immature Gran % (Auto) % Neut % (Auto) % Lymph % (Auto) % Winkler % (Auto) % Eos % (Auto) % Baso % (Auto) % Neut # (Auto) (1.4-6.5) K/uL Lymph # (Auto) (1.2-3.4) K/uL Winkler # (Auto) (0.11-0.59) K/uL Eos # (Auto) (0-0.5) K/uL Baso # (Auto) (0-0.2) K/uL Immature Gran # (Auto) (0.00-0.02) K/uL Polychromasia Sodium (136-145) mmol/L Potassium (3.5-5.1) mmol/L Chloride (98-107) mmol/L Carbon Dioxide (21-32) mmol/L Anion Gap (3-11) BUN (6-23) mg/dl Creatinine (0.6-1.2) mg/dl Est Cr Clr Drug Dosing Est GFR ( Amer) ml/min Est GFR (Non-Af Amer) ml/min BUN/Creatinine Ratio (10-20) Glucose (70-99(Fasting)) mg/dl Calcium (8.5-10.1) mg/dl Magnesium (1.7-2.4) mg/dl Total Bilirubin (0.2-1.0) mg/dl AST (13-39) U/L ALT (7-52) U/L Alkaline Phosphatase (34-104) U/L Total Protein (6.0-8.3) gm/dl Albumin (3.4-5.0) gm/dl Globulin (2.5-4.0) gm/dl Albumin/Globulin Ratio (0.9-2) SARS-CoV-2, RNA, NAAT NEGATIVE (NEGATIVE) ECG Data Attestation: I personally reviewed and interpreted this ECG as follows: Indication: + other (Low sodium and potassium) Rate (beats per minute): 71 Rhythm: + atrial flutter (With occasionally complexes) ECG [place]: + Normal ECG ST segments: + Nonspecific ST abnormalities Comparison ECG Date: from (September 19, 2021) Change: the following changes noted (Previously had A. fib without complexes. Nonspecific ST changes were present) MDM Narrative I did evaluate the patient as noted above. The patient is presenting with lightheadedness, nausea and fatigue. She states she usually gets this way with low sodium. She did have blood work earlier which showed a sodium of 122. IV access was established. I did place an order for continuous cardiac monitoring. The monitor showed atrial flutter with rate of 73 bpm. Occasional paced beats. I did order and personally review the patient's 12-lead EKG as described above. She has a flutter with occasional paced beats. There are no U waves but there is significant baseline artifact limiting interpretation. I did order and review the patient's blood work as noted in the electronic medical record. CBC is unremarkable without leukocytosis or anemia. Electrolytes show a sodium of 123, potassium of 2.3, chloride of 74 and carbon dioxide of 39. Creatinine is 0.97. LFTs are unremarkable other than alk phos of 141. I did treat the patient with IV KCl riders x2 and oral potassium 20 mEq. The nurse states that she refused the IV potassium riders. She was therefore given an additional 20 mEq of K. Dur p.o. I did order a Covid screening test. I did discuss case with the hospitalist and case assembler. Impression & Plan Acute hyponatremia, Acute hypokalemia, Dizziness Discharge Plan Visit Data Chief Complaint: Abnormal Labs/Diagnostic Testing Stated Complaint: 122 LOW SODIUM, DR REFERRED ED Provider: Smooth Hurtado Discharge Problem: Acute hyponatremia, Acute hypokalemia, Dizziness Patient Disposition: Admitted As Inpatient Discharge Instructions Interventions: ED Discharge Assessment Last Done: 11/20/21 21:34
[2021-11-20] MEDS ORDERED: POTASSIUM CHLORIDE 10 MEQ TABCR PO STA ×2 (17:54→18:14)
[2021-11-20] MEDS ORDERED: POTASSIUM CHLORIDE / WTR 10 MEQ/100 ML PLCT IV SCH (18:00)
--- NOTE | 2021-11-20 18:55 | History & Physical Report ---
Date of Service November 20, 2021 Assessment & Plan (1) Acute hyponatremia: Plan: Secondary to overdiuresis with addition of metolazone without weight gain. Hold Bumex NSS 500ml @ 80ml/hr Recheck BMP in AM (2) Acute hypokalemia: Plan: Secondary to additional metolazone (3) Metabolic alkalosis: Plan: Contraction alkalosis secondary to overdiuresis Should correct with slow IV fluids and holding Bumex (4) Weakness: Plan: Secondary to hyponatremia. PT/OT (5) (HFpEF) heart failure with preserved ejection fraction: Plan: Currently hypovolemic Holding Bumex as above (6) Chronic atrial fibrillation: Plan: Fib/Flutter Continue Xarelto for anticoagulation Continue rate control with metoprolol (7) Stump neuralgia: Plan: Continue pregabalin (8) GERD (gastroesophageal reflux disease): Plan: Continue pantoprazole Plan: VTE Prophylaxis - Xarelto Diet - regular Disposition - admit to med/tele Admission and Anticipated Discharge Date Admission Date: Nov 20, 2021 History of Present Illness Chief Complaint: Abnormal labs Primary Care Provider: Janie Back PA-C Anisha Garcia is a 61 year old female who presents to the ER on advice of her PCP due to hyponatremia, hypokalemia, nausea, lightheadedness and weakness. She has had multiple admissions for similar with associated contraction alkalosis secondary to diuretic use. Her labs were stable after recent discharge however she felt she was building up with fluid again and feeling more short of breath therefore was directed to restart on metolazone by her cardiology office although her weight had been stable. She took metolazone on and . She started getting similar symptoms to her hyponatremia episodes therefore reduced her Bumex to 2mg daily yesterday and has taken no Bumex today. She reports continuing to restrict her fluid intake. On prior discharge she was stable on Bumex 2mg PO BID, however metolazone and spironolactone were discontinued. Outpatient sodium level 122 mmol/L and potassium 2.2 mmol/L. In the ER she was started on KCl 10 meq IV x2, 40 meq PO. She was referred to medicine for admission and ongoing management of this. Allergies Allergy/AdvReac Type Severity Reaction Status Date / Time adhesive Allergy Severe SEVERE Verified 11/20/21 18:00 SKIN IRRITATION guanfacine Allergy Intermediate BP PROBLEMS Verified 11/20/21 18:00 nifedipine Allergy Intermediate BP PROBLEMS Verified 11/20/21 18:00 acetaminophen AdvReac Severe LIVER Verified 11/20/21 18:00 DAMAGE-DUE TO FAILURE amoxicillin AdvReac Severe LIVER Verified 11/20/21 18:00 FAILURE clavulanic acid AdvReac Severe LIVER Verified 11/20/21 18:00 FAILURE Home Medications Medication Instructions Recorded Confirmed Type pantoprazole 40 mg tablet,delayed 40 mg PO QAM 07/18/18 11/20/21 History release (Protonix) atorvastatin 80 mg tablet (Lipitor) 80 mg PO HS tab 06/06/19 11/20/21 History lipase 3,000-protease 1 cap PO TIDM 07/31/19 11/20/21 History 9,500-amylase 15,000 unit capsule, delayed rel (Creon) aspirin 81 mg tablet,delayed 81 mg PO QAM 12/19/19 11/20/21 History release (Aspirin Low Dose) amitriptyline 25 mg tablet 25 mg PO HS 07/17/20 11/20/21 History cevimeline 30 mg capsule (Evoxac) 1 cap PO TID 01/08/21 11/20/21 History metoprolol tartrate 50 mg tablet 50 mg PO BID #0 tab 04/26/21 11/20/21 Rx (Lopressor) bumetanide 2 mg tablet 2 mg PO BID 09/16/21 11/20/21 History potassium chloride 20 mEq 20 meq PO BID #60 tab 09/18/21 11/20/21 Rx tablet,extended release pregabalin 300 mg capsule 300 mg PO BID 10/24/21 11/20/21 History zolpidem 10 mg tablet 10 mg PO DAILY 10/24/21 11/20/21 History rivaroxaban 20 mg tablet (Xarelto) 20 mg PO DAILY@1800 30 Days #30 tab 10/27/21 11/20/21 Rx Past Med/Surg History Medical History Anxiety and depression Arthritis COVID-19 TRISTAN (dyspnea on exertion) DVT (deep venous thrombosis) 40+ years ago Dyslipidemia GERD (gastroesophageal reflux disease) Hx of gastric ulcer Hx of migraines Hx of pancreatitis Chronic Neuropathy Pacemaker Dual-chamber, implanted 2018 (high grade AVB/sinus node dysfunction), [employer], follows with Dr. Zarate Paroxysmal atrial fibrillation PVD (peripheral vascular disease) Severe mitral regurgitation Per patient, attempt for MitraClip ([facility]) was performed but unsuccessful (07/2021) Surgical History H/O vascular surgery Bilateral femoral endarterectomy with iliac stent (2016) History of amputation REVISION OF AMPUTATION LLE History of appendectomy History of cardiac cath (~04/24/21) @ [facility] with Dr. Carbajal, no stents placed History of colonoscopy History of esophagogastroduodenoscopy (EGD) History of surgery (~07/30/21) Attempt for MitraClip ([facility]) was performed but unsuccessful (07/2021) History of tooth extraction S/P angiogram of extremity right lower leg Status post below knee amputation of left lower extremity Status post ORIF of fracture of ankle ORIF closed displaced trimalleolar left ankle fracture (2016) Family History Unknown No problems noted. Father Family history of diabetes mellitus Other No family history of adverse response to anesthesia Social History Smoking Status: Current every day smoker Tobacco Type: Cigarettes Cigarettes Per Day: 10; Second Hand Exposure: Yes; Do You Dip or Chew Tobacco: No; Tobacco Cessation Education Requested by Patient: No Hx Alcohol Use: Yes Alcohol type: beer Hx Substance Use: No Preferred Language: Welsh Communication Ability: Effective Finish Specialist Required: No Beliefs That Will Affect Care: None marital status: Current Living Situation: Spouse current occupation: Retired How many Children do You have: 1 Other Information That Helps Us Care for You: No Feels Safe at Home: Yes Safety Concerns: Feels Safe At This Time Assistive Devices: Wheelchair Review of Systems Review of Systems: All systems reviewed & are unremarkable except as noted in HPI & below Physical Exam Constitutional: WD/WN, vitals as above ENMT: external ear and nose normal, oropharynx normal Respiratory: normal respiratory effort, lungs clear to auscultation Cardiovascular: Rate/Rhythm: regular rate and + irregularly irregular Heart Sounds: + murmur (systolic) Vessels: no JVD Extremities: normal capillary refill; no calf tenderness and no pedal edema Gastrointestinal (Abdomen): normal bowel sounds, soft, nontender, no hepatosplenomegaly Musculoskeletal: no cyanosis or clubbing, extremities motor strength 5/5 Skin: no rashes, warm and dry Neurologic: moves all extremities and awake; not confused Psychiatric: A+Ox3, euthymic affect Results & Data Results & Data ([facility]) Vital Signs (Past 12 Hours) Vital Signs Temp Pulse Resp BP Pulse Ox 11/20/21 16:37 36.4 C L 73 16 114/77 96 Medications Administered ER Medications Given: KCl 10 meq IV x2 KCl 20 meq PO x2 ECG Rate (beats per minute): 71 Rhythm: atrial flutter Findings: + nonspecific-ST abn (Inferior); no acute ischemic change Comparison ECG Date: from (Oct 24, 2021) Change: the following changes noted (occasional ventricular pacing noted) Code Status & VTE Plan Code Status DNR/DNI VTE Prophylaxis Plan VTE Prophylaxis will be ordered: Yes PG Care Time/CCT Total # of Minutes Spent Total Time Spent with Patient: Total time spent is greater than 50% in coordination of care (as documented) at patient's floor/unit and/or counseling patient: Coding Level of Care Code 03337 Initial Inpt Care Lvl 3 Diagnoses Acute hyponatremia E87.1 Weakness R53.1 Acute hypokalemia E87.6 Metabolic alkalosis E87.3 (HFpEF) heart failure with preserved ejection fraction I50.30 Chronic atrial fibrillation I48.20 Stump neuralgia M79.2 GERD (gastroesophageal reflux disease) K21.9 Esophagitis presence: esophagitis presence not specified (1) GERD (gastroesophageal reflux disease) Esophagitis presence: esophagitis presence not specified Qualified Code(s): K21.9 - Gastro-esophageal reflux disease without esophagitis
--- NOTE | 2021-11-20 19:32 | XRay Report ---
XR chest 1V portable CLINICAL HISTORY: CHF COMPARISON STUDY: Chest CT September 16, 2021. Chest radiograph October 26, 2021. FINDINGS: Dual lead left subclavian pacemaker is in place. Lung volumes are normal. Lungs are clear. Calcified nodules within the right upper lobe are incidentally noted. There is no pneumothorax or ple ural effusion. Cardiac size is stable. Mediastinal contours are normal. There is no evidence for pulm onary edema. IMPRESSION: No acute cardiopulmonary findings. ACT 112: Negative or not required by law. Electronically signed by: Diogo Johnson M.D. 11/20/2021 7:31 PM
[2021-11-20 21:53] LABS: Appearance Urine Clear (Clear); Bacteria Urine Automated Negative (Negative); Bilirubin Urine Negative (Negative); Blood Urine 2+ (Negative); Color Urine Yellow; Epithelial Cell Urine Auto >30 /lpf (0-5); Glucose Urine UA Negative (Negative); Ketones Urine Negative (Negative); Leukocyte Esterase Urine Negative (Negative); Nitrite Urine Negative (Negative); Protein Urine Negative (Negative); Specific Gravity Urine 1.012 (1.000-1.030); Urobilinogen Urine Negative (Negative)
[2021-11-20] MEDS ORDERED: CEVIMELINE 30 MG PO SCH (21:57)
[2021-11-20] MEDS ORDERED: SODIUM CHLORIDE 0.9% 500 ML IV SCH (21:57)
[2021-11-20] MEDS ORDERED: POTASSIUM CHLORIDE CRTAB 20 MEQ TABCR PO SCH (21:57)
[2021-11-20] MEDS: AMITRIPTYLINE HCL 25 MG TAB PO SCH (22:49)
[2021-11-20] MEDS: ATORVASTATIN 40 MG TAB PO SCH (22:49)
[2021-11-20] MEDS: METOPROLOL TARTRATE 50 MG TAB PO SCH (22:50)
[2021-11-20] MEDS: PREGABALIN 150 MG CAP PO SCH (22:51)
[2021-11-20] MEDS: ZOLPIDEM TARTRATE 10 MG TAB PO PRN (22:54)
[2021-11-21 06:36] LABS: BUN Creatinine Ratio 18.5 (10-20); Calcium 8.6 mg/dl (8.5-10.1); Est GFR (African American) 111.1 ml/min; Est GFR (Non-African American) 95.8 ml/min; Potassium 2.5 mmol/L (3.5-5.1)
[2021-11-21] MEDS: POTASSIUM CHLORIDE CRTAB 20 MEQ TABCR PO SCH ×3 (09:33→21:03)
[2021-11-21] MEDS: METOPROLOL TARTRATE 50 MG TAB PO SCH (09:33)
[2021-11-21] MEDS: ASPIRIN 81 MG ECTAB PO SCH (09:33)
[2021-11-21] MEDS: PANTOprazole 40 MG TAB PO SCH (09:33)
[2021-11-21] MEDS: PANCREAZE (LIPASE 4,200U) CAP PO SCH ×3 (09:33→16:24)
[2021-11-21] MEDS: POTASSIUM CHLORIDE / WTR 10 MEQ/100 ML PLCT IV SCH ×3 (09:34→11:52)
[2021-11-21] MEDS: PREGABALIN 150 MG CAP PO SCH ×2 (09:42→21:01)
--- NOTE | 2021-11-21 11:58 | Electrocardiogram Report ---
Test Reason : Blood Pressure : / mmHG Vent. Rate : 071 BPM Atrial Rate : 326 BPM P-R Int : 000 ms QRS Dur : 080 ms QT Int : 394 ms P-R-T Axes : 000 034 -74 degrees QTc Int : 428 ms Poor data quality, interpretation may be adversely affected Atrial fibrillation with occasional ventricular-paced complexes Abnormal ECG Confirmed by Aidan Merchant ([id number]) on 11/21/2021 11:58:08 AM Referred By: Janie Back Confirmed By:Silvino Merchant
[2021-11-21] MEDS ORDERED: SODIUM CHLORIDE 0.9% 500 ML IV SCH (15:45)
[2021-11-21] MEDS ORDERED: RIVAROXABAN 20 MG TAB PO SCH (18:00)
--- NOTE | 2021-11-21 19:28 | Hospitalist Progress Note ---
Date of Service November 21, 2021 Assessment & Plan (1) Acute hyponatremia: Plan: Secondary to overdiuresis with addition of metolazone to her usual bumex. Na level slowly improving s/p IV fluids overnight. Based on prior levels she typically sits at about 129-130 chronically. Will give an additional 500cc of saline this afternoon/evening. Recheck BMP tonight and then again in am. Continue to hold both her bumex and metolazone. (2) Acute hypokalemia: Plan: Secondary to additional metolazone in the setting of chronic bumex use. Holding all diuretics. K this am still very low. Give 2 K-riders (20meq in total) IV. Increase oral K supplementation to 40meq TID. BMP tonight, then again in am. Mag level noted to be normal. (3) Metabolic alkalosis: Plan: Contraction alkalosis secondary to overdiuresis. Slowly improving with IV fluids and holding her diuretics. Give additional fluid tonight. Serial BMPs. (4) Weakness: Plan: Secondary to hyponatremia, hypokalemia, etc. Replacing/correcting. Does have prosthesis for left leg. PT/OT. (5) (HFpEF) heart failure with preserved ejection fraction: Plan: Currently still hypovolemic Give additional isotonic fluids Hold diuretics I did discuss with her to check daily weights at home When she places her prosthetic leg on she can stand without difficulty She will need to find a large scale to accommodate her body habitus and pros thetic leg As long as she keeps the same shoe on the prosthetic leg (keeping prosthesis the same weight day to day) her daily weights can be followed carefully Right now she "just looks at her right leg to see if there is fluid" to determine her volume status (6) Chronic atrial fibrillation: Plan: Fib/Flutter Continue Xarelto for anticoagulation Continue rate control with metoprolol -- however, due to volume depletion, BPs are low-normal thus cut the metoprolol dose in half Hopefully can resume the full dose after she is hydrated (7) Stump neuralgia: Plan: Continue pregabalin (8) GERD (gastroesophageal reflux disease): Plan: Continue pantoprazole Plan: VTE Prophylaxis - Xarelto d/c tomorrow if stable Na and K? Admission and Anticipated Discharge Date Admission Date: November 20, 2021 Subjective patient lying flat in bed comfortably during the visit she c/o being thirsty and has dry mouth denies any complaints no dyspnea no orthopnea no chest pains she is hoping to go home soon and asks what levels she needs to be able to leave Review of Systems Review of Systems: gen - no fevers cv - no pain or palpitations GI - no abd pain, nausea, emesis pulm - no cough or dyspnea Physical Exam Physical Exam: gen - obese, NAD, lying flat in bed mouth - MM dry heart - irregular, s1 s2 lungs - CTA b/l abd - soft NT ND BS+ ext - left leg BKA; no edema left stump; RLE without edema, pulses R foot 2+ psych - a/o x 3 Results & Data Results & Data ([facility]) Vital Signs (Past 12 Hours) Vital Signs Temp Pulse Pulse Resp BP Pulse Ox 11/21/21 15:44 36.3 C L 67 18 94/67 L 95 11/21/21 11:17 36.5 C 75 18 102/69 96 11/21/21 10:00 65 11/21/21 08:03 36.7 C 76 20 119/79 97 Laboratory Results Laboratory Results - last 24 hr 11/20/21 11/21/21 11/21/21 21:40 05:41 11:50 Sodium 127 L Potassium 2.5 L* Chloride 83 L Carbon Dioxide 36 H Anion Gap 8 BUN 12 Creatinine 0.65 D Est Cr Clr Drug Dosing 95.0 Est GFR ( Amer) 111.1 Est GFR (Non-Af Amer) 95.8 BUN/Creatinine Ratio 18.5 Glucose 105 H Calcium 8.6 Magnesium 2.0 Urine Color Yellow Urine Appearance Clear Urine pH 6.0 Ur Specific [place] 1.012 Urine Protein Negative Urine Glucose (UA) Negative Urine Ketones Negative Urine Blood 2+ H Urine Nitrite Negative Urine Bilirubin Negative Urine Urobilinogen Negative Ur Leukocyte Esterase Negative Urine WBC (Auto) 1-5 Urine RBC (Auto) 5-10 H U Hyaline Cast (Auto) 1-5 U Epithel Cells (Auto) >30 H Urine Bacteria (Auto) Negative Urine Osmolality 261 L Ur Random Sodium 11/21/21 11:50 Sodium Potassium Chloride Carbon Dioxide Anion Gap BUN Creatinine Est Cr Clr Drug Dosing Est GFR ( Amer) Est GFR (Non-Af Amer) BUN/Creatinine Ratio Glucose Calcium Magnesium Urine Color Urine Appearance Urine pH Ur Specific [place] Urine Protein Urine Glucose (UA) Urine Ketones Urine Blood Urine Nitrite Urine Bilirubin Urine Urobilinogen Ur Leukocyte Esterase Urine WBC (Auto) Urine RBC (Auto) U Hyaline Cast (Auto) U Epithel Cells (Auto) Urine Bacteria (Auto) Urine Osmolality Ur Random Sodium 11 PG Care Time/CCT Total # of Minutes Spent Total Time Spent with Patient: Total time spent is greater than 50% in coordination of care (as documented) at patient's floor/unit and/or counseling patient: Coding Level of Care Code 02496 Subseq Hosp Care Lvl 2 Diagnoses Acute hyponatremia E87.1 Acute hypokalemia E87.6 Metabolic alkalosis E87.3 Weakness R53.1 (HFpEF) heart failure with preserved ejection fraction I50.30 Chronic atrial fibrillation I48.20 Stump neuralgia M79.2 GERD (gastroesophageal reflux disease) K21.9 Esophagitis presence: esophagitis presence not specified (1) GERD (gastroesophageal reflux disease) Esophagitis presence: esophagitis presence not specified Qualified Code(s): K21.9 - Gastro-esophageal reflux disease without esophagitis
[2021-11-21 20:17] LABS: BUN Creatinine Ratio 13.3 (10-20); Calcium 8.5 mg/dl (8.5-10.1); Est GFR (African American) 72.2 ml/min; Est GFR (Non-African American) 62.3 ml/min; Potassium 3.5 mmol/L (3.5-5.1)
[2021-11-21] MEDS: ZOLPIDEM TARTRATE 10 MG TAB PO PRN (21:01)
[2021-11-21] MEDS: AMITRIPTYLINE HCL 25 MG TAB PO SCH (21:02)
[2021-11-21] MEDS: METOPROLOL TARTRATE 25 MG TAB PO SCH (21:02)
[2021-11-21] MEDS: ATORVASTATIN 40 MG TAB PO SCH (21:04)
--- NOTE | 2021-11-21 21:54 | XRay Report ---
XR chest 1V portable CLINICAL HISTORY: SOB TECHNIQUE: Single frontal radiograph of the chest was obtained. Comparison: Comparison is made to chest one view 11/20/2028 2 FINDINGS: Dual lead pacemaker is unchanged. Calcified aortic knob is seen. The lungs are clear. No evidence of pleural effusion or pneumothorax. IMPRESSION: No acute chest disease. ACT 112: Negative or not required by law. Electronically signed by: Bon Askew M.D. 11/21/2021 9:52 PM
[2021-11-22] MEDS: METOPROLOL TARTRATE 25 MG TAB PO SCH (07:39)
[2021-11-22] MEDS: POTASSIUM CHLORIDE CRTAB 20 MEQ TABCR PO SCH (07:39)
[2021-11-22] MEDS: PANTOprazole 40 MG TAB PO SCH (07:40)
[2021-11-22] MEDS: PANCREAZE (LIPASE 4,200U) CAP PO SCH ×2 (07:40→11:17)
[2021-11-22] MEDS: ASPIRIN 81 MG ECTAB PO SCH (07:40)
[2021-11-22] MEDS: PREGABALIN 150 MG CAP PO SCH (07:47)
--- NOTE | 2021-11-22 08:38 | Hospitalist Progress Note ---
Date of Service November 22, 2021 Assessment & Plan Admission and Anticipated Discharge Date Admission Date: November 20, 2021 Results & Data Results & Data ([facility]) Vital Signs (Past 12 Hours) Vital Signs Temp Pulse Pulse Resp BP Pulse Ox 11/22/21 07:00 36.5 C 63 18 112/71 96 11/22/21 04:00 36.4 C L 73 18 106/68 96 11/22/21 02:35 64 11/22/21 00:04 36.4 C L 69 18 102/70 96 Laboratory Results 11/21/21 11/21/21 11/21/21 Range/Units 19:47 11:50 11:50 Sodium 129 L (136-145) mmol/L Potassium 3.5 D (3.5-5.1) mmol/L Chloride 88 L (98-107) mmol/L Carbon Dioxide 35 H (21-32) mmol/L Anion Gap 6 (3-11) BUN 13 (6-23) mg/dl Creatinine 0.98 D (0.6-1.2) mg/dl Est Cr Clr Drug Dosing 63.0 ml/min Est GFR ( Amer) 72.2 ml/min Est GFR (Non-Af Amer) 62.3 ml/min BUN/Creatinine Ratio 13.3 (10-20) Glucose 126 H (70-99(Fasting)) mg/dl Calcium 8.5 (8.5-10.1) mg/dl Urine Osmolality 261 L (500-800) mOsm/kg Ur Random Sodium 11 mmol/L PG Care Time/CCT Total # of Minutes Spent Total Time Spent with Patient: Total time spent is greater than 50% in coordination of care (as documented) at patient's floor/unit and/or counseling patient: Coding
[2021-11-22 10:15] LABS: BUN Creatinine Ratio 18.4 (10-20); Calcium 8.2 mg/dl (8.5-10.1); Creatinine Clr Calc Pharmacy 82.8 ml/min; Est GFR (African American) 98.1 ml/min; Est GFR (Non-African American) 84.7 ml/min; Magnesium 2.1 mg/dl (1.7-2.4)
[2021-11-22 10:22] LABS: Hematocrit (blood only) 34.6 % (37-47); Hemoglobin 11.6 g/dL (12.0-16.0); Mean Corpuscular Hemoglobin 28.9 pg (25-34); Mean Corpuscular Hgb Conc 33.5 g/dL (32-36); Mean Corpuscular Volume 86.3 fL (80-100); Mean Platelet Volume 11.6 fL (7.4-10.4); Platelet Count 135 K/uL (130-400); Platelet Estimate Normal (Normal); RDW Coefficient of Variation 18.2 % (11.5-14.5); Red Blood Count 4.01 M/uL (4.2-5.4); White Blood Count 7.94 K/uL (4.8-10.8)
--- NOTE | 2021-11-22 10:55 | Discharge Summary ---
Date of Service November 22, 2021 Admission HPI Per Admitting Provider Anisha Garcia is a 61 year old female who presents to the ER on advice of her PCP due to hyponatremia, hypokalemia, nausea, lightheadedness and weakness. She has had multiple admissions for similar with associated contraction alkalosis secondary to diuretic use. Her labs were stable after recent discharge however she felt she was building up with fluid again and feeling more short of breath therefore was directed to restart on metolazone by her cardiology office although her weight had been stable. She took metolazone on and . She started getting similar symptoms to her hyponatremia episodes therefore reduced her Bumex to 2mg daily yesterday and has taken no Bumex today. She reports continuing to restrict her fluid intake. On prior discharge she was stable on Bumex 2mg PO BID, however metolazone and spironolactone were discontinued. Outpatient sodium level 122 mmol/L and potassium 2.2 mmol/L. In the ER she was started on KCl 10 meq IV x2, 40 meq PO. She was referred to medicine for admissi on and ongoing management of this. Admission Exam Per Admitting Provider Constitutional: WD/WN, vitals as above ENMT: external ear and nose normal, oropharynx normal Respiratory: normal respiratory effort, lungs clear to auscultation Cardiovascular: Rate/Rhythm: regular rate and + irregularly irregular Heart Sounds: + murmur (systolic) Vessels: no JVD Extremities: normal capillary refill; no calf tenderness and no pedal edema Gastrointestinal (Abdomen): normal bowel sounds, soft, nontender, no hepatosplenomegaly Musculoskeletal: no cyanosis or clubbing, extremities motor strength 5/5 Skin: no rashes, warm and dry Neurologic: moves all extremities and awake; not confused Psychiatric: A+Ox3, euthymic affect Principal Diagnosis Hyponatremia, Hypokalemia Discharge Exam gen - obese, NAD, lying flat in bed, sleeping upon entry to room mouth - MM dry (slightly improved) heart - irregular, s1 s2, no edema, calf not tender RLE lungs - CTA b/l, no wheezing, crackles, rales, on room air abd - soft NT ND BS+, no guarding/rigidity ext - left leg BKA; no edema left stump; RLE without edema, pulses R foot 2+ psych - a/o x 3, angry and wanting to go home Discharge Data Allergies Allergy/AdvReac Type Severity Reaction Status Date / Time adhesive Allergy Severe SEVERE Verified 11/20/21 18:00 SKIN IRRITATION guanfacine Allergy Intermediate BP PROBLEMS Verified 11/20/21 18:00 nifedipine Allergy Intermediate BP PROBLEMS Verified 11/20/21 18:00 acetaminophen AdvReac Severe LIVER Verified 11/20/21 18:00 DAMAGE-DUE TO FAILURE amoxicillin AdvReac Severe LIVER Verified 11/20/21 18:00 FAILURE clavulanic acid AdvReac Severe LIVER Verified 11/20/21 18:00 FAILURE Consultations 11/20/21 17:54 ED Decision to Admit Stat Hospital Course (1) Acute hyponatremia: Secondary to overdiuresis with addition of metolazone to her usual bumex. Na level slowly improving s/p IV fluids overnight. Based on prior levels she typically sits at about 129-130 chronically. Given IVF, and additional 500cc prior to d/c for Na 128 Instructed patient to obtain weights daily/only resume diuretics once volume status improved, likely wait additional 2 days then resume outpatient as long as keeping up with PO intake. Avoid further metolazone Instructed to continue half dose metoprolol for next day, then if BP stable and resume usual dosing following day Patient angry about continued inpatient stay and demanding discharge today and stated she was happy as long as her sodium was between 128-130 (2) Acute hypokalemia: Secondary to additional metolazone in the setting of chronic bumex use. Holding all diuretics. K back to baseline. Hold bumex today as above, can resume tomorrow or day following if keeping up with oral intake K supplementation at discharge. Encouraged avoidance of metolazone given repeated issues once taking Mag wnl (3) Metabolic alkalosis: Contraction alkalosis secondary to overdiuresis. Slowly improving with IV fluids and holding her diuretics. Given additional fluid overnight prior to d/c 500cc (500cc overnight 11/21 as well) BMP with home health (4) Weakness: Secondary to hyponatremia, hypokalemia, etc. Replacing/correcting. Does have prosthesis for left leg. PT/OT. (5) (HFpEF) heart failure with preserved ejection fraction: Currently still hypovolemic and given 500cc prior to discharge Encouraged compliance or at least low sodium diet and close f/u with PCP I did discuss with her to check daily weights at home- When she places her prosthetic leg on she can stand without difficulty She will need to find a large scale to accommodate her body habitus and prosthetic leg As long as she keeps the same shoe on the prosthetic leg (keeping prosthesis the same weight day to day) her daily weights can be followed carefully Right now she "just looks at her right leg to see if there is fluid" to determine her volume status Diuretics as above (6) Chronic atrial fibrillation: Fib/Flutter Continue Xarelto for anticoagulation Continue rate control with metoprolol -- however, due to volume depletion, BPs are low-normal thus cut the metoprolol dose in half Hopefully can resume the full dose after she is hydrated and encouraging patient to check BPs at home and if stable can resume her usual full dose in next 24-48 hours. BP prior to d/c improved to 133/81 and pulse 64bpm. (7) Stump neuralgia: Continue pregabalin (8) GERD (gastroesophageal reflux disease): Continue pantoprazole VTE Prophylaxis - Xarelto d/c tomorrow if stable Na and K? Total Time Total Time Spent Total Time Spent (In Minutes): 35 Discharge Plan Discharge Items Patient Disposition: Home - Home Health Services Reason For Visit: HYPOKALEMIA Discharge Diagnosis: Hyponatremia, Hypokalemia Goals: You have been hospitalized for an acute medical problem. During your stay at [facility], we have made an effort to correct the problem that brought you to the hospital while keeping you as comfortable as possible. Medications were used to bring your condition under control and your discharge instructions will include directions for any medications you should take after leaving the hospital. Please make sure you see your Primary Care Provider as part of your follow up plan.You have been hospitalized for an acute medical problem. During your stay at [facility], we have made an effort to correct the problem that brought you to the hospital while keeping you as comfortable as possible. Medications were used to bring your condition under control and your discharge instructions will include directions for any medications you should take after leaving the hospital. Please make sure you see your Primary Care Provider as part of your follow up plan. Activity: Resume your previous activity Non-emergency contact: Primary Care Provider Call non-emergency contact if: you have any medication questions Follow-up/Referrals: Janie Back PA-C [Primary Care Provider] - (PLEASE CALL YOUR PRIMARY CARE PROVIDER TO SCHEDULE A DISCHARGE FOLLOW-UP APPOINTMENT WITHIN 7-10 DAYS.) Diet: Heart Healthy Addtl Attending Provider Instructions: You have been hospitalized for low sodium and potassium. These were replaced and your potassium is normal and sodium is 128 similar to your baseline. You should AVOID further metolazone to prevent worsening dehydration/electrolyte imbalances. You can resume your Bumex tomorrow evening if feeling well, but should monitor your blood pressures and not take if not able to keep up with oral fluids or if having nausea/vomiting. You should then continue potassium supplementation once resuming the Bumex, but this has been increase to 30meq by mouth twice daily. If they remain with systolic less than 120, then continue on REDUCED metoprolol 25mg by mouth twice daily and can go back up to your usual 50mg by mouth twice daily in the next 2-3 days if stable. You should have follow up with your PCP in the next 7-10 days to monitor your progress and should have repeat labs drawn on next week with your home health to ensure these levels are stable. Please return to the emergency department with any fever/chills, chest pain, worsening shortness of breath, or inability to keep up with oral intake. Take care! Pending Studies at Discharge: No Stand-Alone Forms: My [facility], Smoking Cessation Medications and DC Order Prescriptions: Continued Creon 3,000-9,500- 15,000 unit capsule,delayed release(DR/EC) 1 cap PO TIDM RF: 0 amitriptyline 25 mg tablet 25 mg PO HS RF: 0 atorvastatin [Lipitor] 80 mg tablet 80 mg PO HS RF: 0 pantoprazole [Protonix] 40 mg tablet,delayed release (DR/EC) 40 mg PO QAM RF: 0 aspirin [Aspirin Low Dose] 81 mg Tablet,Delayed Release (Dr/Ec) 81 mg PO QAM RF: 0 cevimeline [Evoxac] 30 mg Capsule 1 cap PO TID RF: 0 metoprolol tartrate [Lopressor] 50 mg tablet 50 mg PO BID Qty: 0 RF: 0 bumetanide 2 mg tablet 2 mg PO BID RF: 0 zolpidem 10 mg tablet 10 mg PO DAILY RF: 0 pregabalin 300 mg capsule 300 mg PO BID RF: 0 Xarelto 20 mg Tablet 20 mg PO DAILY@1800 30 Days Qty: 30 RF: 0 Changed potassium chloride 20 mEq tablet extended release 30 meq PO BID Qty: 60 RF: 2 Discharge Orders: Discharge Order (Routine); Ordered 11/22/21 Ordered By: Pari Melendez Admission Data Admit Date/Time: 11/20/21 18:56 Attending Provider: Titus Brunner Admit Provider: Giovanny Santos Primary Care Provider: Janie Back Other Providers: Giovanny Santos ; [facility] [place] Other Interventions: Discharge Summary Assessment (RN) Last Done: 11/22/21 12:46 Supervising Physician Co-Signing Physician Notes Patient seen and examined, chart reviewed, case discussed with Pari Melendez PA-C and I agree with the assessment and plan as above except as otherwise noted General: A&Ox3. NAD. Cooperative. HEENT: Atraumatic, normocephalic. Mucous membranes tacky. Pupils equal and reactive to light. Pulm: CTAB A&P. -wheezes, -rales, -rhonchi. Symmetrical chest rise. No increase work of breathing. No respiratory distress. Cardiac: IR I -mrg. Radial pulses intact and symmetrical. Abdominal: Nontender, nondistended, soft. BS present. Extremity: Left BKA. No edema. Sensation in right lower extremity intact to soft touch. labs and images reviewed Discussed case with Pari and patient. Acute on chronic hyponatremia worsened with the addition of metolazone to Bumex. Sodium level improved holding metolazone and with gentle fluids. Baseline sodium [id number]. Did counseling aide patient that sodium remains low, and ideally would recommend watching and treating until greater than 130. Patient adamantly refuses this, reports that her normal has always been around 128 130 that she is feeling better and is back to her normal baseline and asymptomatic. Is agreeable to close follow-up with her outpatient providers. Weakness improved, PT recommending return home. She feels she is ambulating independently at her baseline at this time. Reports she has help at home with her . Metoprolol dose decreased for low normal pressures, can follow adjustment and increase if BP increased at follow-up appointment. Coding Level of Care Code D/C DAY MANAGEMENT >30 MINS Diagnoses Acute hyponatremia E87.1 Acute hypokalemia E87.6 Metabolic alkalosis E87.3 Weakness R53.1 (HFpEF) heart failure with preserved ejection fraction I50.30 Chronic atrial fibrillation I48.20 Stump neuralgia M79.2 GERD (gastroesophageal reflux disease) K21.9 Esophagitis presence: esophagitis presence not specified
[2021-11-22] MEDS ORDERED: SODIUM CHLORIDE 0.9% 500 ML IV SCH (11:00)
== END 2021-11-22 13:43 | disposition home health service (06) | DRG 641 ==
LOC: ED 16:33 → SUATTDRO 18:56 → 2W 18:56

== ENCOUNTER 2023-04-15 10:13 | Inpatient (IN) ==
[2023-04-15] MEDS ORDERED: SODIUM CHLORIDE 0.9% 500 ML IV STA (11:21)
--- NOTE | 2023-04-15 11:23 | Emergency Department Note ---
Impression & Plan Acute pancreatitis, Abdominal pain, Chronic hyponatremia, Anemia ED Provider Note NAME: TIARA MCCALL AGE: 63 SEX: F : 1960 ARRIVES VIA: Walk-In INFORMANT: Patient, ED PROVIDER(S): Asael Powers MD CHIEF COMPLAINT: Abdominal pain, possible pancreatitis MEDICAL DECISION MAKING: Patient presents due to concern for abdominal pain ongoing since Wednesday without improvement in symptoms. IV was established blood work was obtained. The patient was ordered IV fentanyl IV Zofran and IV fluids. CT abdomen pelvis also ordered. The patient's blood work Shows a normal white count chronic and stable anemia hemoglobin 9.9. Platelet count is unremarkable. Kidney function unremarkable. Relatively chronic hyponatremia 129. Urinalysis negative for blood and for infection. COVID-negative. CT does show pancreatitis. Given the patient has had 6 days of symptoms and has required 2 rounds of IV narcotic pain medication for her pancreatitis I did offer inpatient versus close outpatient follow-up. The patient would prefer inpatient given pain control needs. I did speak with the on-call hospitalist service Dr. Brunner and the patient was admitted to the medicine service. Prior /Outside records reviewed: I did review a nephrology visit from Dr. Garcia from February 26, 2023. Patient has known history of hypertension hyponatremia heart failure with preserved ejection fraction. Patient have history of recurrent hyponatremia which had improved with increased solute as well as fluid restriction. Differential diagnosis: Appendicitis, ovarian cyst, ovarian torsion, ectopic , TOA, PID, infections, diverticulitis, UTI, obstruction, mesenteric ischemia, aortic pathology, inflammatory bowel disease, renal colic, PUD, pancreatitis, biliary pathology, hernia, volvulus, constipation, as well as other pathologies. Diagnostics, as interpreted by me: ECG: None Cardiac monitoring: An order was placed for continuous cardiac monitoring. The monitor shows a rate of 72 with sinus rhythm. Patient was placed on pulse oximetry Medical decision rules: Mars criteria Imaging studies: See below I informally reviewed the patient's CT of the abdomen pelvis which does show some inflammatory change to the pancreas and associated cyst. HPI: Patient presents due to concern for epigastric pain which has been ongoing since Wednesday. The patient states that she does suffer from chronic pancreatitis. Patient denies any falls or trauma and denies any alcohol use. The patient states that this has been a chronic and ongoing issue every so often since she had antibiotics given for a severe leg infection which did require left lower extremity amputation and states that she developed liver dysfunction and subsequent pancreatitis. Patient states that this occurred in 2017. Patient denies any recent alcohol use. Patient's pain is sharp and in the upper abdomen. Patient has been taking oxycodone at home and trying a liquid diet since Wednesday but this has not improved her symptoms. Pain has been constant and it has not abated since it has begun. It is worse with palpation PAST MEDICAL HISTORY: See Below PAST SURGICAL HISTORY: See Below SOCIAL HISTORY: See Below HOME MEDICATIONS: See Below ALLERGIES: See Below VITALS: See Below PHYSICAL EXAMINATION: GENERAL: NAD, non-toxic. Wearing glasses, appears older than stated age. EYE EXAM: Normal conjunctiva. PERRL, no anisocoria and EOM's grossly intact w/o pain. OROPHARYNX: Moist mucus membranes, grossly normal dentition. NECK: Supple, no nuchal rigidity, no adenopathy, non-tender. No signs of meningismus. FROM of the neck with good chin to chest and neck extension. No stridor. LUNGS: Clear to auscultation. Normal chest wall mechanics. HEART: NSR, no MRG. ABDOMEN: Abdomen soft, epigastric pain with mild diffuse discomfort but most prominent in the epigastrium, no masses, no rebound or guarding. BACK: No CVA TTP. SKIN: No rashes and no bruising. UPPER EXTREMITIES: Upper extremities are grossly normal. LOWER EXTREMITIES: Left lower extremity BKA noted well-healed, right lower extremity grossly unremarkable NEURO EXAM: A&O x3, cranial nerves II-XII grossly intact, normal speech, moves all 4 extremities. Past Med/Surg History Medical History (HFpEF) heart failure with preserved ejection fraction Secondary to severe mitral regurgitation Anxiety and depression AV block with subsequent syncope - s/p dual chamber pacemaker ([employer]tronic) - 2019 per cardio records Chronic atrial fibrillation On Xarelto Follows with Dr. Zarate ([facility]) Chronic pain syndrome TRISTAN (dyspnea on exertion) DVT (deep venous thrombosis) 40+ years ago Dyslipidemia GERD (gastroesophageal reflux disease) History of COVID-19 08/2021- pcr test [place], not hosp; no symptoms, was in the ER for another issue HTN (hypertension) HTN (hypertension) Hx of gastric ulcer Hx of migraines Hx of pancreatitis Chronic. Due to heavy alcohol consumption per records Hyponatremia Chronic issue- follows with nephrology Metabolic alkalosis Neuropathy Pacemaker Dual-chamber, implanted 2018 (high grade AVB/sinus node dysfunction), M edtronic, follows with Dr. Zarate Pancreatitis Paroxysmal atrial fibrillation REASON FOR XARELTO PVD (peripheral vascular disease) S/p left BKA Severe mitral regurgitation Per patient, attempt for MitraClip ([facility]) was performed but unsuccessful (07/2021) (little improvement of regurgitation with MitraClip x2- procedure aborted Tobacco use disorder Surgical History H/O vascular surgery Bilateral femoral endarterectomy with iliac stent (2016) History of amputation REVISION OF AMPUTATION LLE History of appendectomy History of cardiac cath (~04/24/21) 03/2021@ [facility] with Dr. Carbajal, no evidence of epicardial CAD History of colonoscopy History of esophagogastroduodenoscopy (EGD) History of surgery (~07/30/21) Attempt for MitraClip ([facility]) was performed but unsuccessful (07/2021); currently being seen in [facility] for a trial for valve replacement History of tooth extraction Hx of oral surgery (09/17/22) Debridement Necrotic Bone and Soft Tissue and Associated Infected Periodontally Infected Teeth to Allow Mitral Valve Replacement (Lower Jaw)(Not Applicable) - Ha Champion, DMD Hx of vascular surgery 11/2019, with dr sethi, [facility], replaced 2 veins with bovine veins in Rt leg S/P angiogram of extremity right lower leg S/P femoral-popliteal bypass surgery Status post below knee amputation of left lower extremity Status post ORIF of fracture of ankle ORIF closed displaced trimalleolar left ankle fracture (2016) Family History Unknown No problems noted. Father Family history of diabetes mellitus Other No family history of adverse response to anesthesia Social History Smoking Status: Current every day smoker Tobacco Type: Cigarettes Cigarettes Per Day: 10; Second Hand Exposure: No; Do You Dip or Chew Tobacco: No; Tobacco Cessation Education Requested by Patient: No Hx Alcohol Use: Yes Alcohol type: beer Hx Substance Use: No Preferred Language: Cuban Communication Ability: Effective Visual Impairment: No Limitations Curing Press Operator Required: No Beliefs That Will Affect Care: None marital status: Current Living Situation: Spouse current occupation: Retired How many Children do You have: 1 Other Information That Helps Us Care for You: No Feels Safe at Home: Yes Safety Concerns: Feels Safe At This Time Assistive Devices: Prosthesis and Wheelchair Assistive Devices Comment: has wheelchair here but not prosthesis Allergies Allergies Allergy/AdvReac Type Severity Reaction Status Date / Time adhesive Allergy Severe SEVERE Verified 02/26/23 13:15 SKIN IRRITATION guanfacine Allergy Intermediate BP PROBLEMS Verified 02/26/23 13:15 nifedipine Allergy Intermediate BP PROBLEMS Verified 02/26/23 13:15 acetaminophen AdvReac Severe LIVER Verified 02/26/23 13:15 DAMAGE-DUE TO FAILURE amoxicillin AdvReac Severe LIVER Verified 02/26/23 13:15 FAILURE clavulanic acid AdvReac Severe LIVER Verified 02/26/23 13:15 FAILURE Home Meds Home Medications Medication Instructions Recorded Confirmed pantoprazole 40 mg tablet,delayed 40 mg PO QAM 07/18/18 04/15/23 release (Protonix) atorvastatin 80 mg tablet (Lipitor) 80 mg PO HS 06/06/19 04/15/23 lipase 3,000-protease 0 cap PO TID 07/31/19 04/15/23 9,500-amylase 15,000 unit capsule, delayed rel (Creon) aspirin 81 mg tablet,delayed 0 mg PO QAM 12/19/19 02/26/23 release (Tj Low Dose Aspirin) pregabalin 300 mg capsule 300 mg PO BID 10/24/21 04/15/23 zolpidem 10 mg tablet 10 mg PO HS 10/24/21 04/15/23 ondansetron 8 mg disintegrating 0 mg PO Q12H PRN Nausea 06/11/22 02/26/23 tablet oxycodone 5 mg capsule 5 mg PO TID PRN Pain 06/11/22 04/15/23 rivaroxaban 20 mg tablet (Xarelto) 0 mg PO DAILY 06/11/22 02/26/23 amitriptyline 50 mg tablet 50 mg PO HS 09/11/22 04/15/23 metoprolol tartrate 25 mg tablet 25 mg PO BID 09/11/22 04/15/23 potassium chloride 20 mEq 20 meq PO BID 09/11/22 04/15/23 tablet,extended release sodium chloride 1 gram tablet 1,000 mg PO QAM 09/11/22 04/15/23 Previous Rx's Medication Instructions Recorded bumetanide 2 mg tablet 2 mg PO BID #180 tabs 01/11/23 Results & Data (ED) Vital Signs Vital Signs - 24 hr 04/15/23 10:21 04/15/23 11:28 04/15/23 11:45 Temperature Source Temporal Artery Scan Pulse Rate 68 68 Pulse Rate [Apical] 68 Pulse Rhythm Regular Pulse Rhythm [Apical] Respiratory Rate 20 18 Respiratory Effort / Characteristics Non-Labored Spontaneous Non-Labored Spontaneous Respiratory Depth Normal Normal Respiratory Pattern Blood Pressure 114/70 Blood Pressure [Right Arm] 111/75 Blood Pressure Mean 84 Blood Pressure Mean [Right Arm] 87 Blood Pressure Position [Right Arm] Lying Pulse Oximetry 95 Oxygen Delivery Method Room Air Sepsis Recent Fever Within 48 Hours No Sepsis New/Unexplained Change in Mental Status No Sepsis Action Taken by Nursing No Action Required 04/15/23 12:02 04/15/23 13:35 Temperature Source Pulse Rate Pulse Rate [Apical] 63 Pulse Rhythm Pulse Rhythm [Apical] Regular Respiratory Rate 18 Respiratory Effort / Characteristics Non-Labored Spontaneous Respiratory Depth Normal Respiratory Pattern Regular Blood Pressure Blood Pressure [Right Arm] 135/75 Blood Pressure Mean Blood Pressure Mean [Right Arm] 95 Blood Pressure Position [Right Arm] Pulse Oximetry 99 97 Oxygen Delivery Method Room Air Room Air Sepsis Recent Fever Within 48 Hours Sepsis New/Unexplained Change in Mental Status Sepsis Action Taken by Detention Medications Current Medication List: was personally reviewed by me Laboratory Data Attestation: I reviewed the patient's lab results. 04/15/23 11:17 04/15/23 11:17 Lab Results 04/15/23 04/15/23 04/15/23 Range/Units 11:17 11:17 12:05 WBC 10.05 (4.8-10.8) K/ul RBC 3.79 L (4.20-5.40) M/uL Hgb 9.9 L (12.0-16.0) g/dl Hct 31.5 L (37.0-47.0) % MCV 83.1 (80.0-100.0) fL MCH 26.1 (25.0-34.0) pg MCHC 31.4 L (32.0-36.0) g/dL RDW Std Deviation 59.4 H (36.4-46.3) fL RDW Coeff of Marlon 19.9 H (11.5-14.5) % Plt Count 211 (130-400) K/uL MPV 11.8 (9.4-12.4) fL Immature Gran % (Auto) 0.4 % Neut % (Auto) 77.8 % Lymph % (Auto) 12.9 % [place] % (Auto) 6.5 % Eos % (Auto) 1.9 % Baso % (Auto) 0.5 % Neut # (Auto) 7.82 H (1.40-6.50) K/uL Lymph # (Auto) 1.30 (1.2-3.4) K/uL [place] # (Auto) 0.65 H (0.11-0.59) K/uL Eos # (Auto) 0.19 (0-0.50) K/uL Baso # (Auto) 0.05 (0-0.2) K/uL Immature Gran # (Auto) 0.04 (0.01-0.20) K/uL Sodium 129 L (136-145) mmol/L Potassium 4.1 (3.5-5.1) mmol/L Chloride 96 L (98-107) mmol/L Carbon Dioxide 26 (21-32) mmol/L Anion Gap 7 (3-11) BUN 6 (6-23) mg/dl Creatinine 0.89 (0.6-1.2) mg/dl Est Cr Clr Drug Dosing 71.1 ml/min Est GFR ( Amer) 79.9 ml/min Est GFR (Non-Af Amer) 69.0 ml/min BUN/Creatinine Ratio 6.7 L (10-20) Glucose 117 H (70-99(Fasting)) mg/dl Calcium 9.3 (8.6-10.3) mg/dl Total Bilirubin 0.7 (0.2-1.0) mg/dl AST 17 (13-39) U/L ALT 7 (7-52) U/L Alkaline Phosphatase 118 H (34-104) U/L Troponin I High Sens 2.9 (0-14) pg/ml Total Protein 7.1 (6.0-8.3) gm/dl Albumin 3.7 (3.4-5.0) gm/dl Globulin 3.4 (2.5-4.0) gm/dl Albumin/Globulin Ratio 1.1 (0.9-2) Lipase 67 (11-82) U/L Urine Color Yellow Urine Appearance Clear (Clear) Urine pH 6.0 (4.5-7.5) Ur Specific [place] 1.009 (1.000-1.030) Urine Protein Negative (Negative) Urine Glucose (UA) Negative (Negative) Urine Ketones Negative (Negative) Urine Blood Negative (Negative) Urine Nitrite Negative (Negative) Urine Bilirubin Negative (Negative) Urine Urobilinogen Negative (Negative) Ur Leukocyte Esterase Negative (Negative) SARS-CoV-2, RNA, NAAT (NEGATIVE) 04/15/23 Range/Units 14:50 WBC (4.8-10.8) K/ul RBC (4.20-5.40) M/uL Hgb (12.0-16.0) g/dl Hct (37.0-47.0) % MCV (80.0-100.0) fL MCH (25.0-34.0) pg MCHC (32.0-36.0) g/dL RDW Std Deviation (36.4-46.3) fL RDW Coeff of Marlon (11.5-14.5) % Plt Count (130-400) K/uL MPV (9.4-12.4) fL Immature Gran % (Auto) % Neut % (Auto) % Lymph % (Auto) % [place] % (Auto) % Eos % (Auto) % Baso % (Auto) % Neut # (Auto) (1.40-6.50) K/uL Lymph # (Auto) (1.2-3.4) K/uL [place] # (Auto) (0.11-0.59) K/uL Eos # (Auto) (0-0.50) K/uL Baso # (Auto) (0-0.2) K/uL Immature Gran # (Auto) (0.01-0.20) K/uL Sodium (136-145) mmol/L Potassium (3.5-5.1) mmol/L Chloride (98-107) mmol/L Carbon Dioxide (21-32) mmol/L Anion Gap (3-11) BUN (6-23) mg/dl Creatinine (0.6-1.2) mg/dl Est Cr Clr Drug Dosing ml/min Est GFR ( Amer) ml/min Est GFR (Non-Af Amer) ml/min BUN/Creatinine Ratio (10-20) Glucose (70-99(Fasting)) mg/dl Calcium (8.6-10.3) mg/dl Total Bilirubin (0.2-1.0) mg/dl AST (13-39) U/L ALT (7-52) U/L Alkaline Phosphatase (34-104) U/L Troponin I High Sens (0-14) pg/ml Total Protein (6.0-8.3) gm/dl Albumin (3.4-5.0) gm/dl Globulin (2.5-4.0) gm/dl Albumin/Globulin Ratio (0.9-2) Lipase (11-82) U/L Urine Color Urine Appearance (Clear) Urine pH (4.5-7.5) Ur Specific [place] (1.000-1.030) Urine Protein (Negative) Urine Glucose (UA) (Negative) Urine Ketones (Negative) Urine Blood (Negative) Urine Nitrite (Negative) Urine Bilirubin (Negative) Urine Urobilinogen (Negative) Ur Leukocyte Esterase (Negative) SARS-CoV-2, RNA, NAAT NEGATIVE (NEGATIVE) Administered Medications Hydromorphone HCl (Hydromorphone Inj 1 Mg/Ml Syringe) 1 mg IV Q4H PRN PRN Reason: Severe Pain (7,8,9,10) on NRS Stop: 04/29/23 15:01 Last Admin: 04/15/23 15:54 Dose: 1 mg Documented By: CHRISTIANO Discontinued Medications Fentanyl Citrate (Fentanyl Citrate Pf 100 Mcg/2 Ml Vial) 50 mcg IV NOW STA Stop: 04/15/23 11:56 Last Admin: 04/15/23 12:06 Dose: 50 mcg Documented By: CHRISTIANO Hydromorphone HCl (Hydromorphone Inj 0.5 Mg/0.5 Ml Syr) 0.5 mg IV NOW STA Stop: 04/15/23 13:26 Last Admin: 04/15/23 13:37 Dose: 0.5 mg Documented By: CHRISTIANO Sodium Chloride (Nss) 500 mls @ 999 mls/hr IV .Q31M STA Stop: 04/15/23 11:51 Last Infusion: 04/15/23 12:15 Dose: 0 mls/hr Documented By: Admin: 04/15/23 11:42 Dose: 999 mls/hr Documented By: CHRISTIANO Lactated Ringer's (Lr) 1,000 mls @ 80 mls/hr IV .[id number] ZACH Stop: 05/15/23 17:09 Last Admin: 04/15/23 18:08 Dose: Not Given Documented By: PELON Ioversol (Optiray 320 100ml) 93 ml IV ONCE ONE Stop: 04/15/23 12:53 Last Admin: 04/15/23 12:53 Dose: 93 ml Documented By: VICK Ondansetron HCl (Ondansetron Inj 2 Mg/Ml 2 Ml Vial) 4 mg IV NOW STA Stop: 04/15/23 11:56 Last Admin: 04/15/23 12:06 Dose: 4 mg Documented By: CHRISTIANO Ondansetron HCl (Ondansetron Inj 2 Mg/Ml 2 Ml Vial) 4 mg IV NOW STA Stop: 04/15/23 13:56 Last Admin: 04/15/23 14:47 Dose: 4 mg Documented By: CHRISTIANO Imaging Data Radiologist's Impression: Abdomen/Pelvis CT 04/15/23 11:21 CT abd pelvis IV con only CLINICAL HISTORY: ab pain; h/o pancreatitis TECHNIQUE: Helical axial images of the abdomen and pelvis were obtained and displayed. Automated dose lowering techniques and/or adjustment according to p atient size were utilized for this exam. This exam was performed with intravenous contrast. CT DOSE: 1667.36 mGy.cm COMPARISON: Comparison is made to CT abdomen pelvis 09/16/2021 FINDINGS: Lower chest: No acute abnormality. Liver: Unremarkable. No focal lesions are seen. Gallbladder and biliary tree: No calcified gallstones. Normal caliber wall. No intra- or extrahepatic biliary ductal dilation. Pancreas: Edema in the pancreatic head is seen. There is a 24 mm cystic lesion in the pancreatic head which is new from prior exam. Surrounding fat stranding is seen but no extrapancreatic fluid collection is seen. Spleen: Calcifications are noted in the spleen compatible with prior granu lomatous disease. Adrenals: Left adrenal nodularity is unchanged from prior exam. Kidneys and ureters: Unremarkable. Bladder: Unremarkable. Reproductive organs: Unremarkable. Bowel: Diverticulosis is seen without evidence of diverticulitis. Duodenal wall appears thickened with surrounding fat stranding. Lymph nodes Retroperitoneal: Numerous peripancreatic lymph nodes are seen measuring up to 13 mm in diameter. Pelvic: Unremarkable. Mesenteric: Unremarkable. Peritoneum: Fat stranding surrounds the head of the pancreas. Vessels: Unremarkable. Abdominal wall: Unremarkable. Bones: Degenerative changes in the visualized spine. IMPRESSION: Findings are compatible with pancreatitis of the pancreatic head. A new fluid collection may represent an acute peripancreatic fluid collection. Thickening of the duodenum is likely reactive. ACT 112: Negative or not required by law. Electronically signed by: Bon Askew M.D. 04/15/2023 1:17 PM Discharge Plan Visit Data Chief Complaint: Abdominal Pain Stated Complaint: BELIEVES IS HAVING SEVERE CASE OF PANCREATITIS ED Provider: Asael Powers Discharge Problem: Acute pancreatitis, Abdominal pain, Chronic hyponatremia, Anemia Patient Disposition: Admitted As Inpatient Discharge Instructions Interventions: ED Discharge Assessment Last Done: 04/15/23 17:37
[2023-04-15] MEDS ORDERED: ONDANSETRON INJ 2 MG/ML 2 ML VIAL IV STA ×2 (11:55→13:55)
[2023-04-15] MEDS ORDERED: fentaNYL citrate PF 100 MCG/2 ML VIAL IV STA (11:55)
[2023-04-15 12:09] LABS: Albumin Globulin Ratio 1.1 (0.9-2); Albumin Level 3.7 gm/dl (3.4-5.0); BUN Creatinine Ratio 6.7 (10-20); Bilirubin,Total 0.7 mg/dl (0.2-1.0); Calcium 9.3 mg/dl (8.6-10.3); Creatinine Clr Calc Pharmacy 71.1 ml/min; Est GFR (African American) 79.9 ml/min; Globulin 3.4 gm/dl (2.5-4.0); Potassium 4.1 mmol/L (3.5-5.1); Total Protein 7.1 gm/dl (6.0-8.3)
[2023-04-15 12:15] LABS: Troponin I High Sensitivity 2.9 pg/ml (0-14)
[2023-04-15 12:17] LABS: Basophils # (auto) 0.05 K/uL (0-0.2); Basophils % (auto) 0.5 %; Eosinophils # (auto) 0.19 K/uL (0-0.50); Eosinophils % (auto) 1.9 %; Hematocrit (blood only) 31.5 % (37.0-47.0); Hemoglobin 9.9 g/dl (12.0-16.0); Immature Granulocytes # (auto) 0.04 K/uL (0.01-0.20); Immature Granulocytes % (auto) 0.4 %; Lymphocytes % (auto) 12.9 %; Mean Corpuscular Hemoglobin 26.1 pg (25.0-34.0); Mean Corpuscular Hgb Conc 31.4 g/dL (32.0-36.0); Mean Corpuscular Volume 83.1 fL (80.0-100.0); Mean Platelet Volume 11.8 fL (9.4-12.4); Monocytes # (auto) 0.65 K/uL (0.11-0.59); Monocytes % (auto) 6.5 %; Neutrophils # (auto) 7.82 K/uL (1.40-6.50); Neutrophils % (auto) 77.8 %; Platelet Count 211 K/uL (130-400); RDW Coefficient of Variation 19.9 % (11.5-14.5); RDW Standard Deviation 59.4 fL (36.4-46.3); Red Blood Count 3.79 M/uL (4.20-5.40); White Blood Count 10.05 K/ul (4.8-10.8)
[2023-04-15 12:36] LABS: Appearance Urine Clear (Clear); Bilirubin Urine Negative (Negative); Blood Urine Negative (Negative); Color Urine Yellow; Glucose Urine UA Negative (Negative); Ketones Urine Negative (Negative); Leukocyte Esterase Urine Negative (Negative); Nitrite Urine Negative (Negative); Protein Urine Negative (Negative); Specific Gravity Urine 1.009 (1.000-1.030); Urobilinogen Urine Negative (Negative)
[2023-04-15] MEDS ORDERED: OPTIRAY 320 100ml IV ONE (12:52)
--- NOTE | 2023-04-15 13:20 | CT Scan Report ---
CT abd pelvis IV con only CLINICAL HISTORY: ab pain; h/o pancreatitis TECHNIQUE: Helical axial images of the abdomen and pelvis were obtained and displayed. Automated dose lowering techniques and/or adjustment according to patient size were utilized for this exam. This e xam was performed with intravenous contrast. CT DOSE: 1667.36 mGy.cm COMPARISON: Comparison is made to CT abdomen pelvis 09/16/2021 FINDINGS: Lower chest: No acute abnormality. Liver: Unremarkable. No focal lesions are seen. Gallbladder and biliary tree: No calcified gallstones. Normal caliber wall. No intra- or extrahepatic biliary ductal dilation. Pancreas: Edema in the pancreatic head is seen. There is a 24 mm cystic lesion in the pancreatic head which is new from prior exam. Surrounding fat stranding is seen but no extrapancreatic fluid collect ion is seen. Spleen: Calcifications are noted in the spleen compatible with prior granulomatous disease. Adrenals: Left adrenal nodularity is unchanged from prior exam. Kidneys and ureters: Unremarkable. Bladder: Unremarkable. Reproductive organs: Unremarkable. Bowel: Diverticulosis is seen without evidence of diverticulitis. Duodenal wall appears thickened wit h surrounding fat stranding. Lymph nodes Retroperitoneal: Numerous peripancreatic lymph nodes are seen measuring up to 13 mm in diameter. Pelvic: Unremarkable. Mesenteric: Unremarkable. Peritoneum: Fat stranding surrounds the head of the pancreas. Vessels: Unremarkable. Abdominal wall: Unremarkable. Bones: Degenerative changes in the visualized spine. IMPRESSION: Findings are compatible with pancreatitis of the pancreatic head. A new fluid collection may represen t an acute peripancreatic fluid collection. Thickening of the duodenum is likely reactive. ACT 112: Negative or not required by law. Electronically signed by: Bon Askew M.D. 04/15/2023 1:17 PM
[2023-04-15] MEDS ORDERED: HYDROmorphone INJ 0.5 MG/0.5 ML SYR IV STA (13:25)
--- NOTE | 2023-04-15 14:18 | History & Physical Report ---
Date of Service April 15, 2023 Assessment & Plan (1) Pancreatic cyst: Plan: Chronic pancreatitis, new pancreatic cyst CT-A/P: Findings are compatible with pancreatitis of the pancreatic head. A new fluid collection may represent an acute peripancreatic fluid collection. Thickening of the duodenum is likely reactive. Lipase is normal Symptom onset following eating funnel cake. Patient denies increased alcohol intake, has a history of high alcohol intake up to about 4 years ago and suspected to have increased/more regular intake than endorsed on HPI in the past Calcium normal No transaminitis Has not improved with conservative treatment including clears and rest, which normally improves her episodes in the past. Does have baseline chronic pancreatitis pain followed as outpatient We will admit on LR, defer aggressive fluids due to history of hyponatremia and diastolic heart failure although this has improved with solute repletion in the past. Clinically near euvolemic. Clears, n.p.o. at midnight pending GI assessment MRCP ordered to better characterize new pancreatic cyst, will follow-up with [facility] tomorrow? EGD EUS. Last had EUS 2020 which did not show a pancreatic head mass at that time Creatinine is normal on admission No signs of cholelithiasis/choledocho Creon 3 times daily w meals and continued Heart failure with preserved ejection fraction With valvular disease not amenable to replacement/surgical intervention per follow-up with [facility] Clinically near euvolemic on exam Hold Bumex while n.p.o. and on gentle fluids, if starting to volume retain/become hypervolemic. Fluids and resume Bumex No chest pain/chest pressure/shortness of breath on admission GERD Continue PPI Paroxysmal A-fib Sinus at bedside Continue rivaroxaban, metoprolol Hyperlipidemia Continue atorvastatin DVT prophylaxis: Anticoagulated Diet: Clears, n.p.o. at midnight CODE STATUS: Full code Disposition: [facility] (2) (HFpEF) heart failure with preserved ejection fraction: (3) HTN (hypertension): (4) GERD (gastroesophageal reflux disease): (5) COPD (chronic obstructive pulmonary disease): (6) Chronic atrial fibrillation: History of Present Illness Primary Care Provider: Kat Morataya MD Anisha is a 63-year-old female with a past medical history of GERD, hypertension, heart failure with preserved ejection fraction, COPD, mitral regurg, acute necrotizing ulcerative gingivitis, periodontal disease, stump neuropathy/neuralgia, peripheral arterial disease who presents with epigastric pain of 4 days. She has a history of chronic pancreatitis, denies fall/trauma/alcohol use. Pain has not improved with liquid diet and home oxycodone Prior history of pancreatitis. Treated with abx for a leg infection and then L DKA with subsequent liver dysfunciton Intermittent pancreatitis in the past Epigastric pain x4 days, 4 day sliquid diet, no improvement at home. Notes additional R abdominal pain and bloating, tight belly. Has a history of recurrent pancreatitis, this feels similar. This is her first episode in 'a while'. Usually improved with clears over 2-3 days, more persistent currently. Last seen in hospital last winter but went home after waiting few a hours in the ER and went away on its own with time. She feels she gets episodes 'once a while' but hard to quanitify how many times a year. She notes her symptoms do worsen with meals when she has a flare. She reprots she was camping at the [employer] and was eating funnel cake which she think sset off her current symtpoms. has had issues with [facility] chicken setting off episodes as well. NO history of cholecystectomy. No diarrhea or constipation. BMs are regular, brown medium consistency. No bloody/white/ colored BM. Has a leaky heart valve. Went to [facility], failed a clip x1 and no longer a surgical candidate per [facility] clinic. Follows with Jaymie Dawson [facility] for recurrent pancreatitis. History of liver failure 2/2 severe prolonged antibiotics due to amoxicillin for infected ankle with hardware. Ultimately required amputation for severe persistent infection No/very little etoh use Use dto drink 12 pack a day 4-5 years ago, drinks less than weekly or monthly now. Just social with company at most 1 in a day often >3 weeks before drinks. No etoh that set this off No history of cirrhosis Collaterial from [facility] GI: Still drinks 1-2 beers every 1-2 weeks per. - Per GI 2 years ago had a EUS 05/2021. No pancreatic head lesion at that time. - [facility] here starting Wednesday Medical History: Reviewed Medications: Reviewed Surgical History: Reviewed Family history: Reviewed Allergies: Reviewed Social History: +1ppd tobacco use. ETOH as noted Code Status: Full Code Allergies Allergy/AdvReac Type Severity Reaction Status Date / Time adhesive Allergy Severe SEVERE Verified 02/26/23 13:15 SKIN IRRITATION guanfacine Allergy Intermediate BP PROBLEMS Verified 02/26/23 13:15 nifedipine Allergy Intermediate BP PROBLEMS Verified 02/26/23 13:15 acetaminophen AdvReac Severe LIVER Verified 02/26/23 13:15 DAMAGE-DUE TO FAILURE amoxicillin AdvReac Severe LIVER Verified 02/26/23 13:15 FAILURE clavulanic acid AdvReac Severe LIVER Verified 02/26/23 13:15 FAILURE Home Medications Medication Instructions Recorded Confirmed Type pantoprazole 40 mg tablet,delayed 40 mg PO QAM 07/18/18 04/15/23 History release (Protonix) atorvastatin 80 mg tablet (Lipitor) 80 mg PO HS 06/06/19 04/15/23 History lipase 3,000-protease 0 cap PO TID 07/31/19 04/15/23 History 9,500-amylase 15,000 unit capsule, delayed rel (Creon) aspirin 81 mg tablet,delayed 0 mg PO QAM 12/19/19 02/26/23 History release (Tj Low Dose Aspirin) pregabalin 300 mg capsule 300 mg PO BID 10/24/21 04/15/23 History zolpidem 10 mg tablet 10 mg PO HS 10/24/21 04/15/23 History ondansetron 8 mg disintegrating 0 mg PO Q12H PRN Nausea 06/11/22 02/26/23 History tablet oxycodone 5 mg capsule 5 mg PO TID PRN Pain 06/11/22 04/15/23 History rivaroxaban 20 mg tablet (Xarelto) 0 mg PO DAILY 06/11/22 02/26/23 History amitriptyline 50 mg tablet 50 mg PO HS 09/11/22 04/15/23 History metoprolol tartrate 25 mg tablet 25 mg PO BID 09/11/22 04/15/23 History potassium chloride 20 mEq 20 meq PO BID 09/11/22 04/15/23 History tablet,extended release sodium chloride 1 gram tablet 1,000 mg PO QAM 09/11/22 04/15/23 History bumetanide 2 mg tablet 2 mg PO BID #180 tabs 01/11/23 04/15/23 Rx Past Med/Surg History Medical History (HFpEF) heart failure with preserved ejection fraction Anxiety and depression AV block Chronic atrial fibrillation Chronic pain syndrome TRISTAN (dyspnea on exertion) DVT (deep venous thrombosis) Dyslipidemia GERD (gastroesophageal reflux disease) History of COVID-19 HTN (hypertension) HTN (hypertension) Hx of gastric ulcer Hx of migraines Hx of pancreatitis Hyponatremia Metabolic alkalosis Neuropathy Pacemaker Pancreatitis Paroxysmal atrial fibrillation PVD (peripheral vascular disease) Severe mitral regurgitation Tobacco use disorder Surgical History H/O vascular surgery History of amputation History of appendectomy History of cardiac cath (~04/24/21) History of colonoscopy History of esophagogastroduodenoscopy (EGD) History of surgery (~07/30/21) History of tooth extraction Hx of oral surgery (09/17/22) Hx of vascular surgery S/P angiogram of extremity S/P femoral-popliteal bypass surgery Status post below knee amputation of left lower extremity Status post ORIF of fracture of ankle Family History Unknown No problems noted. Father Family history of diabetes mellitus Other No family history of adverse response to anesthesia Social History Smoking Status: Current every day smoker Tobacco Type: Cigarettes Cigarettes Per Day: 10; Second Hand Exposure: No; Do You Dip or Chew Tobacco: No; Hx Alcohol Use: Yes Alcohol type: beer Hx Substance Use: No Preferred Language: Slovak Communication Ability: Effective Visual Impairment: No Limitations Foreign Student Adviser Teacher Required: No Beliefs That Will Affect Care: None marital status: Current Living Situation: Spouse current occupation: Retired How many Children do You have: 1 Feels Safe at Home: Yes Assistive Devices: Bedside Commode, Cane, Denture - Upper, Denture - Lower, Glasses, Walker, Wheelchair and Other Review of Systems Review of Systems: All systems reviewed & are unremarkable except as noted in Subjective Physical Exam Physical Exam: General: A&Ox3. NAD. Cooperative. HEENT: Atraumatic, normocephalic. Vision/hearing intact Pulm: CTAB A&P. -wheezes, -rales, -rhonchi. Symmetrical chest rise. No increased work of breathing. No respiratory distress. Cardiac: RRR, +sm. Radial pulses intact and symmetrical. Abdominal: +Epigastric, RUQ TTP. Soft. No guarding/rigidity. BS present. Ext: s/p L BKA. RLA with minimal/trace ankle edema, sensation and strength intact Results & Data Results & Data Vital Signs (Past 12 Hours) Vital Signs Pulse Pulse Resp BP BP Pulse Ox O2 Del Method 04/15/23 13:35 63 18 135/75 97 Room Air 04/15/23 12:02 99 Room Air 04/15/23 11:45 68 18 111/75 04/15/23 11:28 68 04/15/23 10:21 68 20 114/70 95 Room Air PG Care Time/CCT Total # of Minutes Spent Total Time Spent with Patient: Total time spent is greater than 50% in coordination of care (as documented) at patient's floor/unit and/or counseling patient: Coding Level of Care Code 01528 INT INP/OBS CARE 3/75MIN Diagnoses Pancreatic cyst K86.2 (HFpEF) heart failure with preserved ejection fraction I50.30 HTN (hypertension) I10 GERD (gastroesophageal reflux disease) K21.9 Esophagitis presence: esophagitis presence not specified COPD (chronic obstructive pulmonary disease) J44.9 COPD type: unspecified COPD Chronic atrial fibrillation I48.20 (4) GERD (gastroesophageal reflux disease) Esophagitis presence: esophagitis presence not specified Qualified Code(s): K21.9 - Gastro-esophageal reflux disease without esophagitis (5) COPD (chronic obstructive pulmonary disease) COPD type: unspecified COPD Qualified Code(s): J44.9 - Chronic obstructive pulmonary disease, unspecified
[2023-04-15] MEDS: HYDROmorphone INJ 1 MG/ML SYRINGE IV PRN (15:54)
[2023-04-15] MEDS ORDERED: ONDANSETRON INJ 2 MG/ML 2 ML VIAL IV PRN (17:10)
[2023-04-15] MEDS ORDERED: LACTATED RINGER'S 1,000 ML IV SCH (17:10)
[2023-04-15] MEDS: ZOLPIDEM TARTRATE 10 MG TAB PO SCH (20:20)
[2023-04-15] MEDS: HYDROmorphone INJ 0.5 MG/0.5 ML SYR IV PRN (20:20)
[2023-04-15] MEDS: PREGABALIN 150 MG CAP PO SCH (20:21)
[2023-04-15] MEDS: BUMETANIDE 1 MG TAB PO SCH (20:23)
[2023-04-15] MEDS: POTASSIUM CHLORIDE CRTAB 20 MEQ TABCR PO SCH (20:25)
[2023-04-15] MEDS: ATORVASTATIN 40 MG TAB PO SCH (20:25)
[2023-04-15] MEDS: AMITRIPTYLINE HCL 50 MG TAB PO SCH (20:25)
[2023-04-15] MEDS: METOPROLOL TARTRATE 25 MG TAB PO SCH (20:28)
[2023-04-15] MEDS ORDERED: BUMETANIDE 1 MG TAB PO SCH (21:00)
[2023-04-16 07:05] LABS: Basophils # (auto) 0.04 K/uL (0-0.2); Basophils % (auto) 0.5 %; Eosinophils # (auto) 0.25 K/uL (0-0.50); Eosinophils % (auto) 3.1 %; Hematocrit (blood only) 29.1 % (37.0-47.0); Hemoglobin 9.2 g/dl (12.0-16.0); Immature Granulocytes # (auto) 0.04 K/uL (0.01-0.20); Immature Granulocytes % (auto) 0.5 %; Lymphocytes # (auto) 0.95 K/uL (1.2-3.4); Lymphocytes % (auto) 11.8 %; Mean Corpuscular Hgb Conc 31.6 g/dL (32.0-36.0); Mean Corpuscular Volume 82.2 fL (80.0-100.0); Mean Platelet Volume 11.6 fL (9.4-12.4); Monocytes # (auto) 0.76 K/uL (0.11-0.59); Monocytes % (auto) 9.4 %; Neutrophils # (auto) 6.01 K/uL (1.40-6.50); Neutrophils % (auto) 74.7 %; Platelet Count 174 K/uL (130-400); RDW Coefficient of Variation 19.9 % (11.5-14.5); RDW Standard Deviation 59.7 fL (36.4-46.3); Red Blood Count 3.54 M/uL (4.20-5.40); White Blood Count 8.05 K/ul (4.8-10.8)
[2023-04-16 07:23] LABS: Albumin Globulin Ratio 1.1 (0.9-2); Albumin Level 3.4 gm/dl (3.4-5.0); BUN Creatinine Ratio 7.1 (10-20); Bilirubin,Total 0.9 mg/dl (0.2-1.0); Calcium 8.9 mg/dl (8.6-10.3); Creatinine Clr Calc Pharmacy 75.3 ml/min; Est GFR (African American) 85.7 ml/min; Globulin 3.2 gm/dl (2.5-4.0); INR 1.1 (0.9-1.1); Potassium 4.5 mmol/L (3.5-5.1); Prothrombin Time 12.1 Seconds (9.0-12.0); Total Protein 6.6 gm/dl (6.0-8.3)
[2023-04-16] MEDS ORDERED: PANTOprazole 40 MG TAB PO SCH (09:00)
[2023-04-16] MEDS: POTASSIUM CHLORIDE CRTAB 20 MEQ TABCR PO SCH ×2 (09:27→21:12)
[2023-04-16] MEDS: BUMETANIDE 1 MG TAB PO SCH ×2 (09:27→17:31)
[2023-04-16] MEDS: METOPROLOL TARTRATE 25 MG TAB PO SCH ×2 (09:27→21:22)
[2023-04-16] MEDS: SODIUM CHLORIDE 1 GM TABLET PO SCH (09:27)
[2023-04-16] MEDS: PREGABALIN 150 MG CAP PO SCH ×2 (09:32→21:15)
[2023-04-16] MEDS: HYDROmorphone INJ 0.5 MG/0.5 ML SYR IV PRN ×2 (09:32→18:36)
--- NOTE | 2023-04-16 10:18 | Gastrointestinal Consultation ---
Date of Consultation April 16, 2023 Assessment & Plan (1) Acute pancreatitis: (2) Abdominal pain: (3) Pancreatic cyst: Plan -Supportive care for pancreatitis with IV fluid hydration, NPO status with advancement slowly as tolerated, IV pain control -Increase Protonix to 40 mg BID -Await MRCP results -Will need ongoing follow-up with her [facility] for ongoing care and outpatient EUS needs (unless more urgent findings are found on MRCP). Supervising Physician Co-Signing Physician Notes Agree with NATALY Camargo as above Abd: Soft, NT, ND, +BS MRCP results pending Patient asking to eat, but will wait until results from MRCP return Continue current therapy and supportive care. History of Present Illness Reason for Consultation: "hx recurrent pancreatitis, pancreatic head cyst" Attending Physician: Smooth Bynum MD History of Present Illness Patient seen in cross coverage for [facility]. Patient is a 63 yo female with a PMH of GERD, HTN, heart failure with preserved EF, COPD, mitral regurgitation, acute necrotizing ulcerative gingivitis, stump neuropathy/neuralgia, and PAD. She presented to the ED with epigastric pain x 4 days. Patient notes a history of chronic pancreatitis and recurrent acute pancreatitis. She reportedly has a known pancreatic cyst that has been monitored with an EUS (last one reportedly in 2020, but I do not have a record of this in my [facility] charts). Patient notes she had no relief of her epigastric pain with narcotics at home. She notes it is similar to previous episodes of pancreatitis. She notes she gets episodes intermittently but does not always seek medical attention.Current symptoms triggered by eating a funnel cake at [employer]. She does not drink alcohol now but apparently used to heavily drink years ago. Due to issues with mitral regurgitation, she had interventions performed at [facility] that failed and she was reportedly deemed to no longer be a candidate for any further interventions. She notes antibiotic induced liver injury recently after taking Amoxicillin for infected ankle hardware that eventually led to BKA. Upon admission, she was noted to have a normal lipase of [address] scan that indicated an acute pancreatitis along with a new pancreatic fluid collection. T bili unremarkable, AST/ALT unremarkable. Alk phos 128. An MRCP was ordered by the primary team. It has not been completed yet at the time of my visit. No pertinent family history. Allergies Allergy/AdvReac Type Severity Reaction Status Date / Time adhesive Allergy Severe SEVERE Verified 02/26/23 13:15 SKIN IRRITATION guanfacine Allergy Intermediate BP PROBLEMS Verified 02/26/23 13:15 nifedipine Allergy Intermediate BP PROBLEMS Verified 02/26/23 13:15 acetaminophen AdvReac Severe LIVER Verified 02/26/23 13:15 DAMAGE-DUE TO FAILURE amoxicillin AdvReac Severe LIVER Verified 02/26/23 13:15 FAILURE clavulanic acid AdvReac Severe LIVER Verified 02/26/23 13:15 FAILURE Home Medications Medication Instructions Recorded Confirmed Type pantoprazole 40 mg tablet,delayed 40 mg PO QAM 07/18/18 04/15/23 History release (Protonix) atorvastatin 80 mg tablet (Lipitor) 80 mg PO HS 06/06/19 04/15/23 History lipase 3,000-protease 0 cap PO TID 07/31/19 04/15/23 History 9,500-amylase 15,000 unit capsule, delayed rel (Creon) aspirin 81 mg tablet,delayed 0 mg PO QAM 12/19/19 02/26/23 History release (Tj Low Dose Aspirin) pregabalin 300 mg capsule 300 mg PO BID 10/24/21 04/15/23 History zolpidem 10 mg tablet 10 mg PO HS 10/24/21 04/15/23 History ondansetron 8 mg disintegrating 0 mg PO Q12H PRN Nausea 06/11/22 02/26/23 History tablet oxycodone 5 mg capsule 5 mg PO TID PRN Pain 06/11/22 04/15/23 History rivaroxaban 20 mg tablet (Xarelto) 0 mg PO DAILY 06/11/22 02/26/23 History amitriptyline 50 mg tablet 50 mg PO HS 09/11/22 04/15/23 History metoprolol tartrate 25 mg tablet 25 mg PO BID 09/11/22 04/15/23 History potassium chloride 20 mEq 20 meq PO BID 09/11/22 04/15/23 History tablet,extended release sodium chloride 1 gram tablet 1,000 mg PO QAM 09/11/22 04/15/23 History bumetanide 2 mg tablet 2 mg PO BID #180 tabs 01/11/23 04/15/23 Rx Patient History Medical History (HFpEF) heart failure with preserved ejection fraction Secondary to severe mitral regurgitation Anxiety and depression AV block with subsequent syncope - s/p dual chamber pacemaker ([employer]tr[employer]) - 2018 per cardio records Chronic atrial fibrillation On Xarelto Follows with Dr. Zarate ([facility]) Chronic pain syndrome TRISTAN (dyspnea on exertion) DVT (deep venous thrombosis) 40+ years ago Dyslipidemia GERD (gastroesophageal reflux disease) History of COVID-19 08/2021- pcr test [place], not hosp; no symptoms, was in the ER for another issue HTN (hypertension) HTN (hypertension) Hx of gastric ulcer Hx of migraines Hx of pancreatitis Chronic. Due to heavy alcohol consumption per records Hyponatremia Chronic issue- follows with nephrology Metabolic alkalosis Neuropathy Pacemaker Dual-chamber, implanted 2018 (high grade AVB/sinus node dysfunction), [employer], follows with Dr. Zarate Pancreatitis Paroxysmal atrial fibrillation REASON FOR XARELTO PVD (peripheral vascular disease) S/p left BKA Severe mitral regurgitation Per patient, attempt for MitraClip ([facility]) was performed but unsuccessful (07/2021) (little improvement of regurgitation with MitraClip x2- procedure aborted Tobacco use disorder Surgical History H/O vascular surgery Bilateral femoral endarterectomy with iliac stent (2016) History of amputation REVISION OF AMPUTATION LLE History of appendectomy History of cardiac cath (~04/24/21) 03/2021@ [facility] with Dr. Carbajal, no evidence of epicardial CAD History of colonoscopy History of esophagogastroduodenoscopy (EGD) History of surgery (~07/30/21) Attempt for MitraClip ([facility]) was performed but unsuccessful (07/2021); currently being seen in [facility] for a trial for valve replacement History of tooth extraction Hx of oral surgery (09/17/22) Debridement Necrotic Bone and Soft Tissue and Associated Infected Periodontally Infected Teeth to Allow Mitral Valve Replacement (Lower Jaw)(Not Applicable) - Ha Champion, DMD Hx of vascular surgery 11/2019, with dr sethi, [facility], replaced 2 veins with bovine veins in Rt leg S/P angiogram of extremity right lower leg S/P femoral-popliteal bypass surgery Status post below knee amputation of left lower extremity Status post ORIF of fracture of ankle ORIF closed displaced trimalleolar left ankle fracture (2017) Family History Unknown No problems noted. Father Family history of diabetes mellitus Other No family history of adverse response to anesthesia Social History Smoking Status: Current every day smoker Tobacco Type: Cigarettes Cigarettes Per Day: 10; Second Hand Exposure: No; Do You Dip or Chew Tobacco: No; Tobacco Cessation Education Requested by Patient: No Hx Alcohol Use: Yes Alcohol type: beer Hx Substance Use: No Preferred Language: Azeri Communication Ability: Effective Visual Impairment: No Limitations Binder Stripper Machine Required: No Beliefs That Will Affect Care: None marital status: Current Living Situation: Spouse current occupation: Retired How many Children do You have: 1 Other Information That Helps Us Care for You: No Feels Safe at Home: Yes Safety Concerns: Feels Safe At This Time Assistive Devices: Glasses, Walker and Wheelchair Assistive Devices Comment: has wheelchair here but not prosthesis Review of Systems Constitutional: no fever and no chills Respiratory: no cough and no dyspnea Cardiovascular: no chest pain Gastrointestinal: + abdominal pain Psychiatric: no problem reported Hematologic / Lymphatic: no unexplained weight loss Physical Exam Constitutional: well developed Respiratory: normal respiratory effort Cardiovascular: Rate/Rhythm: regular rate Gastrointestinal (Abdomen): Inspection/Auscultation: abdomen normal to inspection Percussion/Palpation: + abdomen tender and abdomen soft Musculoskeletal: Head/Neck/Chest: normocephalic Psychiatric: Orientation: alert and oriented x 3 Results & Data Vital Signs (Past 12 Hours) Vital Signs Temp Pulse Resp BP Pulse Ox O2 Del Method 04/16/23 09:36 100/64 04/16/23 08:15 98/66 L 04/16/23 07:42 37.0 C 68 18 75/46 L 95 Room Air PG Care Time/CCT Total # of Minutes Spent Total Time Spent with Patient: Total time spent is greater than 50% in coordination of care (as documented) at patient's floor/unit and/or counseling patient: Coding Level of Care Code 70681 IN/OBS CONSULT LVL 4,60M Diagnoses Acute pancreatitis K85.90 Acute pancreatitis complication: no infection or necrosis Pancreatitis type: unspecified pancreatitis type Abdominal pain R10.13 Abdominal location: epigastric Pancreatic cyst K86.2 (1) Acute pancreatitis Acute pancreatitis complication: no infection or necrosis Pancreatitis type: unspecified pancreatitis type Qualified Code(s): K85.90 - Acute pancreatitis without necrosis or infection, unspecified (2) Abdominal pain Abdominal location: epigastric Qualified Code(s): R10.13 - Epigastric pain
[2023-04-16] MEDS ORDERED: PANCREAZE (LIPASE 4,200U) CAP PO PRN (13:46)
[2023-04-16] MEDS: HYDROmorphone INJ 1 MG/ML SYRINGE IV PRN (14:42)
--- NOTE | 2023-04-16 15:46 | Hospitalist Progress Note ---
Date of Service April 16, 2023 Assessment & Plan (1) Acute pancreatitis: Plan: Attending: Dr. Bynum Pain is significant improved CT of the abdomen reveals pancreatitis of the pancreatic head with no evidence of necrosis. Patient also with probable pancreatic cyst Gentle IV fluids as patient has history of diastolic heart failure, mitral regurgitation, and chronic hyponatremia No significant pain with deep palpation Patient denies any further nausea. No vomiting or diarrhea reported. Continue supportive care and suggestions per gastroenterology (2) Chronic hyponatremia: Plan: Gentle hydration on admission Continue with oral sodium chloride tablet (3) Anemia: Plan: No active bleeding at this time. Trend hemoglobin and hematocrit. Hemoglobin currently is 9.4 (4) Pancreatic cyst: Plan: Further management per gastroenterology (5) (HFpEF) heart failure with preserved ejection fraction: Plan: Gentle hydration Continue outpatient diuretics including bumetanide 2 mg p.o. twice daily Strict ins and outs (6) HTN (hypertension): Plan: Continue outpatient medications Hemodynamically stable (7) Smoker: Plan: Offered NicoDerm patch to patient. She defers at this time. She was advised that this is available should she need it Continue to do encourage abstention of all tobacco products (8) COPD (chronic obstructive pulmonary disease): Plan: No evidence of pulmonary function testing at this time Patient is an everyday smoker Currently not on any inhalers, nebulizers, or other adjunct treatment Continue to encourage abstention of tobacco products (9) Chronic atrial fibrillation: Plan: Rate controlled in the 80s Continue Lopressor twice daily DOAC held pending GI clearance from surgery Currently rate and rhythm controlled Resume rivaroxaban on discharge Plan Significant improvement in symptoms since admission If labs improve and GI has no plans for intervention, possible discharge tomorrow with outpatient follow-up with [facility] gastroenterology Admission and Anticipated Discharge Date Admission Date: April 15, 2023 Subjective Attending: Dr. Bynum 63-year-old female admitted yesterday for abdominal pain. Found to have acute pancreatitis. No leukocytosis. Tmax of 37.2 C since admission. GI was consulted and patient was seen by Aliyah Lawrence PA-C and Dr. Rios. MRCP ordered and results pending. Unless urgent findings on MRCP, there is suggesting outpatient EUS with [facility] Patient seen at bedside and reports that she is feeling much better. No further nausea or vomiting. Patient denies diarrhea. No abdominal pain. Patient is asking for diet to be advanced Patient reports she is a smoker and does not need NicoDerm patch at this time although it was offered to her. Patient reports no fever, chills, sweats, rigors. No other acute complaints at this time. Review of Systems Review of Systems: A total of 10 systems was reviewed and is negative other than as listed in the HPI Physical Exam Physical Exam: GENERAL : No acute distress. Malodorous EYES: No icterus, gaze conjugate NOSE: No evidence of epistaxis MOUTH: No lesions or candidiasis NECK: Supple LUNGS: CTA B/L, no wheezes, rales or rhonchi. Good inspiratory effort HEART: Regular, rate controlled ABDOMEN: Soft, NT, ND, BS Present EXTREMITIES: No LE edema, pedal pulse intact to right dorsalis. 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 Stump is warm to touch. Popliteal pulse is appreciated NEURO: A&OX3. Patient able to follow all commands Results & Data Results & Data Vital Signs (Past 12 Hours) Vital Signs Temp Pulse Resp BP Pulse Ox O2 Del Method 04/16/23 14:34 37.2 C 71 17 101/61 100 Room Air 04/16/23 09:36 100/64 04/16/23 08:15 98/66 L 04/16/23 07:42 37.0 C 68 18 75/46 L 95 Room Air Critical Care Results & Data Vital Signs (Past 12 Hours) Vital Signs Temp Pulse Resp BP Pulse Ox O2 Del Method 04/16/23 19:49 Room Air 04/16/23 21:22 36.3 C L 82 18 120/87 94 Room Air 04/16/23 14:34 37.2 C 71 17 101/61 100 Room Air Lab & Micro Results (Past 24 Hours) RBC 3.54 M/uL (4.20-5.40) L 04/16/23 WBC 8.05 K/ul (4.8-10.8) 04/16/23 Hgb 9.2 g/dl (12.0-16.0) L 04/16/23 Hct 29.1 % (37.0-47.0) L 04/16/23 MCV 82.2 fL (80.0-100.0) 04/16/23 MCH 26.0 pg (25.0-34.0) 04/16/23 MCHC 31.6 g/dL (32.0-36.0) L 04/16/23 RDW Standard Deviation 59.7 fL (36.4-46.3) H 04/16/23 RDW Coefficient of Variation 19.9 % (11.5-14.5) H 04/16/23 Plt Count 174 K/uL (130-400) 04/16/23 MPV 11.6 fL (9.4-12.4) 04/16/23 Neutrophils (%) (Auto) 74.7 % 04/16/23 Lymphocytes (%) (Auto) 11.8 % 04/16/23 Monocytes # (Auto) 0.76 K/uL (0.11-0.59) H 04/16/23 Eosinophils # (Auto) 0.25 K/uL (0-0.50) 04/16/23 Immature Granulocyte % (Auto) 0.5 % 04/16/23 Neutrophils # (Auto) 6.01 K/uL (1.40-6.50) 04/16/23 Lymphocytes # (Auto) 0.95 K/uL (1.2-3.4) L 04/16/23 Monocytes # (Auto) 0.76 K/uL (0.11-0.59) H 04/16/23 Eosinophils # (Auto) 0.25 K/uL (0-0.50) 04/16/23 Basophils # (Auto) 0.04 K/uL (0-0.2) 04/16/23 Immature Granulocyte # (Auto) 0.04 K/uL (0.01-0.20) 3 Na 131 mmol/L (136-145) L 04/16/23 K 4.5 mmol/L (3.5-5.1) 04/16/23 Cl 98 mmol/L (98-107) 04/16/23 CO2 28 mmol/L (21-32) 04/16/23 Anion Gap 5 (3-11) 04/16/23 BUN 6 mg/dl (6-23) 04/16/23 Creatinine 0.84 mg/dl (0.6-1.2) 04/16/23 Estimated GFR ( Amer) 85.7 ml/min 04/16/23 Estimated GFR (Non-Af Amer) 74.0 ml/min 04/16/23 BUN/Creatinine Ratio 7.1 (10-20) L 04/16/23 Glu 124 mg/dl (70-99(Fasting)) H 04/16/23 Ca 8.9 mg/dl (8.6-10.3) 04/16/23 Total Bilirubin 0.9 mg/dl (0.2-1.0) 04/16/23 AST 23 U/L (13-39) 04/16/23 ALT 9 U/L (7-52) 04/16/23 Alkaline Phosphatase 128 U/L (34-104) H 04/16/23 TP 6.6 gm/dl (6.0-8.3) 04/16/23 Albumin 3.4 gm/dl (3.4-5.0) 04/16/23 Globulin 3.2 gm/dl (2.5-4.0) 04/16/23 Albumin/Globulin Ratio 1.1 (0.9-2) 04/16/23 Calcium Level 8.9 mg/dl (8.6-10.3) 04/16/23 06:23 Prothromb Time International Ratio 1.1 (0.9-1.1) 04/16/23 06:2 3 Diagnostic Findings (Past 24 Hours) Cholangiopancreatography MRI 04/16/23 15:03 MRCP CLINICAL HISTORY: Pancreatic cyst. COMPARISON STUDY: Abdominal CT dated 04/15/2023. MRCP dated 11/09/2018. TECHNIQUE: Abdominal MRCP is performed utilizing various T2-weighted sequences in the axial and coronal planes. IV contrast was not administered for this examination. 3-D reformats are created and assessed. Diffusion-weighted imaging was utilized. FINDINGS: The gallbladder is normal in appearance. No gallstones are identified. There is no intra or extrahepatic biliary ductal dilatation. The common bile duct measures up to 6 mm in diameter. No intraluminal filling defects are seen to suggest choledocholithiasis. The pancreatic duct is normal in caliber. There is peripancreatic inflammation and fluid consistent with acute pancreatitis. Wall thickening of the duodenum is likely related to adjacent pancreatitis. A 2.1 cm complex structure in the region of pancreatic head seen on axial FIESTA image #19 may correspond to the cystic lesion seen on yesterday's abdominal CT scan. The unenhanced liver, spleen, right adrenal gland, and kidneys are grossly unremarkable. A 2.4 cm left adrenal nodule is again noted. The abdominal aorta is normal in course and caliber. There is no evidence of bowel obstruction. No pleural effusion is identified. IMPRESSION: 1. Normal MRCP assessment of the gallbladder and biliary tree. 2. Acute pancreatitis with surrounding inflammation and fluid. 3. A 2.1 cm complex structure in the region of the pancreatic head likely corresponds to the small fluid collection seen on yesterday's abdominal CT. This cannot be further assessed by MRCP. GI follow-up is recommended, as is a follow- up CT scan in several weeks' time for reevaluation. 4. Duodenal wall thickening is likely related to adjacent pancreatitis. Dictated: 04/16/2023 2:13 PM Transcribed: 04/16/2023 2:44 PM Josefina [id number] MARKO_Alejandro [id number] Electronically signed by: Angus Marte M.D. 04/16/2023 4:04 PM I & O Totals 24 Hours 04/15/23 04/16/23 04/17/23 06:59 06:59 06:59 Intake Total 500 / 500 Balance 500 / 500 Cumulative 04/15/23 10:13 thru 04/16/23 21:22 Intake Total 500 Balance 500 RT Ventilator Mngmt (Last Documented) Ventilator Ordered Settings Respiratory Rate 18 04/16/23 21:22 Ventilator - PT Measurements Respiratory Rate 18 PG Care Time/CCT Total # of Minutes Spent Total Time Spent with Patient: Total time spent is greater than 50% in coordination of care (as documented) at patient's floor/unit and/or counseling patient: Coding Level of Care Code 14597 SUB INP/OBS CARE 1/25MIN Diagnoses Acute pancreatitis K85.90 Acute pancreatitis complication: no infection or necrosis Pancreatitis type: unspecified pancreatitis type Chronic hyponatremia E87.1 Anemia D64.9 Anemia type: unspecified type Pancreatic cyst K86.2 (HFpEF) heart failure with preserved ejection fraction I50.30 HTN (hypertension) I10 Smoker F17.200 COPD (chronic obstructive pulmonary disease) J44.9 COPD type: unspecified COPD Chronic atrial fibrillation I48.20 Time Spent (min) 27 (1) Acute pancreatitis Acute pancreatitis complication: no infection or necrosis Pancreatitis type: unspecified pancreatitis type Qualified Code(s): K85.90 - Acute pancreatitis without necrosis or infection, unspecified (3) Anemia Anemia type: unspecified type Qualified Code(s): D64.9 - Anemia, unspecified (8) COPD (chronic obstructive pulmonary disease) COPD type: unspecified COPD Qualified Code(s): J44.9 - Chronic obstructive pulmonary disease, unspecified
--- NOTE | 2023-04-16 16:05 | Magnetic Resonance Report ---
MRCP CLINICAL HISTORY: Pancreatic cyst. COMPARISON STUDY: Abdominal CT dated 04/15/2023. MRCP dated 11/09/2018. TECHNIQUE: Abdominal MRCP is performed utilizing various T2-weighted sequences in the axial and coron al planes. IV contrast was not administered for this examination. 3-D reformats are created and asses sed. Diffusion-weighted imaging was utilized. FINDINGS: The gallbladder is normal in appearance. No gallstones are identified. There is no intra or extrahepa tic biliary ductal dilatation. The common bile duct measures up to 6 mm in diameter. No intraluminal filling defects are seen to suggest choledocholithiasis. The pancreatic duct is normal in caliber. There is peripancreatic inflammation and fluid consistent with acute pancreatitis. Wall thickening of the duodenum is likely related to adjacent pancreatitis. A 2.1 cm complex structure in the region of pancreatic head seen on axial FIESTA image #19 may correspond to the cystic lesion seen on yesterday 's abdominal CT scan. The unenhanced liver, spleen, right adrenal gland, and kidneys are grossly unremarkable. A 2.4 cm lef t adrenal nodule is again noted. The abdominal aorta is normal in course and caliber. There is no jessy dence of bowel obstruction. No pleural effusion is identified. IMPRESSION: 1. Normal MRCP assessment of the gallbladder and biliary tree. 2. Acute pancreatitis with surrounding inflammation and fluid. 3. A 2.1 cm complex structure in the region of the pancreatic head likely corresponds to the small fl uid collection seen on yesterday's abdominal CT. This cannot be further assessed by MRCP. GI follow-u p is recommended, as is a follow-up CT scan in several weeks' time for reevaluation. 4. Duodenal wall thickening is likely related to adjacent pancreatitis. Dictated: 04/16/2023 2:13 PM Transcribed: 04/16/2023 2:44 PM Josefina [id number] Shira [id number] Electronically signed by: Angus Marte M.D. 04/16/2023 4:04 PM
[2023-04-16] MEDS: PANCREAZE (LIPASE 4,200U) CAP PO SCH (17:33)
[2023-04-16] MEDS: AMITRIPTYLINE HCL 50 MG TAB PO SCH (21:12)
[2023-04-16] MEDS: ATORVASTATIN 40 MG TAB PO SCH (21:12)
[2023-04-16] MEDS: PANTOprazole 40 MG TAB PO SCH (21:13)
[2023-04-16] MEDS: ZOLPIDEM TARTRATE 10 MG TAB PO SCH (21:15)
[2023-04-17 07:24] LABS: Basophils # (auto) 0.06 K/uL (0-0.2); Basophils % (auto) 0.8 %; Eosinophils # (auto) 0.25 K/uL (0-0.50); Eosinophils % (auto) 3.4 %; Hematocrit (blood only) 26.7 % (37.0-47.0); Hemoglobin 8.4 g/dl (12.0-16.0); Immature Granulocytes # (auto) 0.03 K/uL (0.01-0.20); Immature Granulocytes % (auto) 0.4 %; Lymphocytes # (auto) 1.57 K/uL (1.2-3.4); Lymphocytes % (auto) 21.4 %; Mean Corpuscular Hgb Conc 31.5 g/dL (32.0-36.0); Mean Corpuscular Volume 82.7 fL (80.0-100.0); Mean Platelet Volume 11.8 fL (9.4-12.4); Monocytes # (auto) 0.76 K/uL (0.11-0.59); Monocytes % (auto) 10.4 %; Neutrophils # (auto) 4.67 K/uL (1.40-6.50); Neutrophils % (auto) 63.6 %; Platelet Count 156 K/uL (130-400); RDW Coefficient of Variation 19.7 % (11.5-14.5); RDW Standard Deviation 58.9 fL (36.4-46.3); Red Blood Count 3.23 M/uL (4.20-5.40); White Blood Count 7.34 K/ul (4.8-10.8)
[2023-04-17] MEDS: HYDROmorphone INJ 1 MG/ML SYRINGE IV PRN (07:43)
[2023-04-17] MEDS: SODIUM CHLORIDE 1 GM TABLET PO SCH (07:44)
[2023-04-17] MEDS: PANTOprazole 40 MG TAB PO SCH ×2 (07:45→20:20)
[2023-04-17] MEDS: POTASSIUM CHLORIDE CRTAB 20 MEQ TABCR PO SCH ×2 (07:45→20:19)
[2023-04-17] MEDS: BUMETANIDE 1 MG TAB PO SCH ×2 (07:45→17:05)
[2023-04-17] MEDS: PANCREAZE (LIPASE 4,200U) CAP PO SCH ×3 (07:45→17:05)
[2023-04-17] MEDS: METOPROLOL TARTRATE 25 MG TAB PO SCH ×2 (07:46→20:28)
[2023-04-17] MEDS: PREGABALIN 150 MG CAP PO SCH ×2 (08:03→20:26)
--- NOTE | 2023-04-17 08:54 | Gastroenterology Progress Note ---
Date of Service April 17, 2023 Assessment & Plan (1) Acute pancreatitis: Plan: Nothing much to add. Would advance diet as pain abates. Cyst will be followed by Jaymie Dawson NP in clinic after discharge Admission and Anticipated Discharge Date Admission Date: April 15, 2023 Subjective Feeling a little better, getting hungry. Admits to having some beer before this started, MRCP with nothing remarkable other than the "complex cyst" she says has been there for years but not mentioned on CT in 2020 Physical Exam Physical Exam: Sleepy, falling asleep while talking to me Constitutional: + morbidly obese; not in distress Results & Data Vital Signs (Past 12 Hours) Vital Signs Temp Pulse Resp BP Pulse Ox O2 Del Method 04/17/23 07:37 Room Air 04/17/23 07:10 36.9 C 70 18 101/65 93 Room Air 04/16/23 21:22 36.3 C L 82 18 120/87 94 Room Air Diagnostic Findings Abdomen/Pelvis CT 04/15/23 11:21 CT abd pelvis IV con only CLINICAL HISTORY: ab pain; h/o pancreatitis TECHNIQUE: Helical axial images of the abdomen and pelvis were obtained and displayed. Automated dose lowering techniques and/or adjustment according to patient size were utilized for this exam. This exam was performed with intravenous contrast. CT DOSE: 1667.36 mGy.cm COMPARISON: Comparison is made to CT abdomen pelvis 09/16/2021 FINDINGS: Lower chest: No acute abnormality. Liver: Unremarkable. No focal lesions are seen. Gallbladder and biliary tree: No calcified gallstones. Normal caliber wall. No intra- or extrahepatic biliary ductal dilation. Pancreas: Edema in the pancreatic head is seen. There is a 24 mm cystic lesion in the pancreatic head which is new from prior exam. Surrounding fat stranding is seen but no extrapancreatic fluid collection is seen. Spleen: Calcifications are noted in the spleen compatible with prior granulomatous disease. Adrenals: Left adrenal nodularity is unchanged from prior exam. Kidneys and ureters: Unremarkable. Bladder: Unremarkable. Reproductive organs: Unremarkable. Bowel: Diverticulosis is seen without evidence of diverticulitis. Duodenal wall appears thickened with surrounding fat stranding. Lymph nodes Retroperitoneal: Numerous peripancreatic lymph nodes are seen measuring up to 13 mm in diameter. Pelvic: Unremarkable. Mesenteric: Unremarkable. Peritoneum: Fat stranding surrounds the head of the pancreas. Vessels: Unremarkable. Abdominal wall: Unremarkable. Bones: Degenerative changes in the visualized spine. IMPRESSION: Findings are compatible with pancreatitis of the pancreatic head. A new fluid collection may represent an acute peripancreatic fluid collection. Thickening of the duodenum is likely reactive. ACT 112: Negative or not required by law. Electronically signed by: Bon Askew M.D. 04/15/2023 1:17 PM Cholangiopancreatography MRI 04/16/23 15:03 MRCP CLINICAL HISTORY: Pancreatic cyst. COMPARISON STUDY: Abdominal CT dated 04/15/2023. MRCP dated 11/09/2018. TECHNIQUE: Abdominal MRCP is performed utilizing various T2-weighted sequences in the axial and coronal planes. IV contrast was not administered for this examination. 3-D reformats are created and assessed. Diffusion-weighted imaging was utilized. FINDINGS: The gallbladder is normal in appearance. No gallstones are identified. There is no intra or extrahepatic biliary ductal dilatation. The common bile duct measures up to 6 mm in diameter. No intraluminal filling defects are seen to suggest choledocholithiasis. The pancreatic duct is normal in caliber. There is peripancreatic inflammation and fluid consistent with acute pancreatitis. Wall thickening of the duodenum is likely related to adjacent pancreatitis. A 2.1 cm complex structure in the region of pancreatic head seen on axial FIESTA image #19 may correspond to the cystic lesion seen on yesterday's abdominal CT scan. The unenhanced liver, spleen, right adrenal gland, and kidneys are grossly unremarkable. A 2.4 cm left adrenal nodule is again noted. The abdominal aorta is normal in course and caliber. There is no evidence of bowel obstruction. No pleural effusion is identified. IMPRESSION: 1. Normal MRCP assessment of the gallbladder and biliary tree. 2. Acute pancreatitis with surrounding inflammation and fluid. 3. A 2.1 cm complex structure in the region of the pancreatic head likely corresponds to the small fluid collection seen on yesterday's abdominal CT. This cannot be further assessed by MRCP. GI follow-up is recommended, as is a follow- up CT scan in several weeks' time for reevaluation. 4. Duodenal wall thickening is likely related to adjacent pancreatitis. Dictated: 04/16/2023 2:13 PM Transcribed: 04/16/2023 2:44 PM Josefina [id number] Shira [id number] Electronically signed by: Angus Marte M.D. 04/16/2023 4:04 PM (1) Acute pancreatitis Acute pancreatitis complication: no infection or necrosis Pancreatitis type: unspecified pancreatitis type Qualified Code(s): K85.90 - Acute pancreatitis without necrosis or infection, unspecified
[2023-04-17 09:27] LABS: BUN Creatinine Ratio 9.2 (10-20); Calcium 8.6 mg/dl (8.6-10.3); Creatinine Clr Calc Pharmacy 72.7 ml/min; Est GFR (African American) 82.2 ml/min; Est GFR (Non-African American) 70.9 ml/min; Magnesium 1.6 mg/dl (1.7-2.4); Potassium 3.6 mmol/L (3.5-5.1)
[2023-04-17] MEDS: ACETAMINOPHEN 500 MG TAB PO PRN ×2 (11:45→20:18)
--- NOTE | 2023-04-17 16:01 | Hospitalist Progress Note ---
Date of Service April 17, 2023 Assessment & Plan (1) Acute pancreatitis: Plan: Mrs. Garcia is a 63 yo F who was admitted on 04/15/23 for a recurrent episode of acute pancreatitis - normal lipase of 67 on admission - A/P CT scan showed evidence of acute pancreatitis along with a new pancreatic fluid collection; no evidence of necrosis - MRCP with nothing remarkable other than the "complex cyst - GI consulted, no planned intervention, recommend outpatient follow up with [facility] GI - Pain is improved -- patient now tolerating a clear liquid diet. Advancing to full liquid diet today, 04/17/23 - Pain control with PO Tylenol and IV Dilaudid prn for breakthrough. zofran prn for nasuea - As for the cause of her issues, no gallstones noted. Ca level normal. TG normal in 2018. May be from etoh, although according to patient, consumption is ~ 6 drinks a week or less. (2) Chronic hyponatremia: Plan: Gentle hydration on admission Continue with oral sodium chloride tablet (3) Anemia: Plan: No active bleeding at this time. Trend hemoglobin and hematocrit. Hemoglobin currently is 9.4 (4) Pancreatic cyst: Plan: Further management per gastroenterology (5) (HFpEF) heart failure with preserved ejection fraction: Plan: Gentle hydration Continue outpatient diuretics including bumetanide 2 mg p.o. twice daily Strict ins and outs (6) HTN (hypertension): Plan: Continue outpatient medications Hemodynamically stable (7) Smoker: Plan: Offered NicoDerm patch to patient. She defers at this time. She was advised that this is available should she need it Continue to do encourage abstention of all tobacco products (8) COPD (chronic obstructive pulmonary disease): Plan: No evidence of pulmonary function testing at this time Patient is an everyday smoker Currently not on any inhalers, nebulizers, or other adjunct treatment Continue to encourage abstention of tobacco products (9) Chronic atrial fibrillation: Plan: Continue Lopressor twice daily Currently rate and rhythm controlled Resume rivaroxaban today, 03/2022, since no surgical innervation necessary Plan Significant improvement in symptoms since admission So long as she is able to advance diet without need for IV narcotics for pain c ontrol, anticipate discharge on 04/18/23 with outpatient follow-up with [facility] gastroenterology Admission and Anticipated Discharge Date Admission Date: April 15, 2023 Subjective Patient is very groggy today -- nursing staff points out that only pain medication available is IV dilaudid. Patient states her pain is minimal. She did consume clear liquids for breakfast without worsening pain or nausea. She does admit to drink about 6 beers per week. She says this is the 4th time she has ever had pancreatitis. She follows with [facility] GI as an outpatient. Review of Systems Review of Systems: All systems reviewed & are unremarkable except as noted in HPI & below Physical Exam Constitutional: WD/WN, vitals as above Eyes: PERRL, conjunctivae normal, anicteric sclerae ENMT: external ear and nose normal, oropharynx normal Neck: trachea midline Respiratory: normal respiratory effort Cardiovascular: Rate/Rhythm: + irregularly irregular Gastrointestinal (Abdomen): Inspection/Auscultation: abdomen normal to inspection and normal bowel sounds; abdomen not distended Percussion/Pal pation: + abdomen tender (mild, epigastric area) and abdomen soft Musculoskeletal: Head/Neck/Chest: normocephalic and head atraumatic Skin: no rashes, warm and dry Neurologic: moves all extremities Psychiatric: A+Ox3, euthymic affect Results & Data Results & Data Vital Signs (Past 12 Hours) Vital Signs Temp Pulse Resp BP Pulse Ox O2 Del Method 04/17/23 07:37 Room Air 04/17/23 07:10 36.9 C 70 18 101/65 93 Room Air PG Care Time/CCT Total # of Minutes Spent Total Time Spent with Patient: Total time spent is greater than 50% in coordination of care (as documented) at patient's floor/unit and/or counseling patient: Coding [place] [address] SUB INP/OBS CARE 2/35MIN Patient Type Established Diagnoses Acute pancreatitis K85.90 Acute pancreatitis complication: no infection or necrosis Pancreatitis type: unspecified pancreatitis type (1) Acute pancreatitis Acute pancreatitis complication: no infection or necrosis Pancreatitis type: unspecified pancreatitis type Qualified Code(s): K85.90 - Acute pancreatitis without necrosis or infection, unspecified
[2023-04-17] MEDS ORDERED: RIVAROXABAN 20 MG TAB PO SCH (16:30)
[2023-04-17] MEDS: HYDROmorphone INJ 0.5 MG/0.5 ML SYR IV PRN (17:52)
[2023-04-17] MEDS: AMITRIPTYLINE HCL 50 MG TAB PO SCH (20:19)
[2023-04-17] MEDS: ATORVASTATIN 40 MG TAB PO SCH (20:20)
[2023-04-17] MEDS: ZOLPIDEM TARTRATE 10 MG TAB PO SCH (20:25)
[2023-04-18 07:49] LABS: Basophils # (auto) 0.05 K/uL (0-0.2); Basophils % (auto) 0.8 %; Eosinophils # (auto) 0.25 K/uL (0-0.50); Eosinophils % (auto) 4.2 %; Hematocrit (blood only) 27.1 % (37.0-47.0); Hemoglobin 8.6 g/dl (12.0-16.0); Immature Granulocytes # (auto) 0.02 K/uL (0.01-0.20); Immature Granulocytes % (auto) 0.3 %; Lymphocytes # (auto) 1.23 K/uL (1.2-3.4); Lymphocytes % (auto) 20.7 %; Mean Corpuscular Hemoglobin 26.1 pg (25.0-34.0); Mean Corpuscular Hgb Conc 31.7 g/dL (32.0-36.0); Mean Corpuscular Volume 82.4 fL (80.0-100.0); Mean Platelet Volume 11.9 fL (9.4-12.4); Monocytes % (auto) 10.1 %; Neutrophils # (auto) 3.79 K/uL (1.40-6.50); Neutrophils % (auto) 63.9 %; Platelet Count 160 K/uL (130-400); RDW Coefficient of Variation 19.9 % (11.5-14.5); Red Blood Count 3.29 M/uL (4.20-5.40); White Blood Count 5.94 K/ul (4.8-10.8)
--- NOTE | 2023-04-18 07:49 | Electrocardiogram Report ---
Test Reason : Blood Pressure : / mmHG Vent. Rate : 072 BPM Atrial Rate : 127 BPM P-R Int : 000 ms QRS Dur : 080 ms QT Int : 386 ms P-R-T Axes : 000 076 035 degrees QTc Int : 422 ms Atrial fibrillation with occasional ventricular-paced complexes Low voltage QRS Abnormal ECG When compared with ECG of 31-JUL-2022 05:38, Electronic ventricular pacemaker now present Confirmed by Tramaine Granado ([id number]) on 04/18/2023 7:49:08 AM Referred By: REFERRED SELF Confirmed By:Tramaine Granado
[2023-04-18] MEDS: ACETAMINOPHEN 500 MG TAB PO PRN (07:58)
[2023-04-18] MEDS: BUMETANIDE 1 MG TAB PO SCH (07:59)
[2023-04-18] MEDS: SODIUM CHLORIDE 1 GM TABLET PO SCH (07:59)
[2023-04-18] MEDS: PANTOprazole 40 MG TAB PO SCH (07:59)
[2023-04-18 08:00] LABS: Calcium 8.7 mg/dl (8.6-10.3); Creatinine Clr Calc Pharmacy 77.2 ml/min; Est GFR (African American) 88.3 ml/min; Est GFR (Non-African American) 76.2 ml/min; Magnesium 1.7 mg/dl (1.7-2.4); Potassium 3.5 mmol/L (3.5-5.1)
[2023-04-18] MEDS: METOPROLOL TARTRATE 25 MG TAB PO SCH (08:00)
[2023-04-18] MEDS: PANCREAZE (LIPASE 4,200U) CAP PO SCH ×2 (08:00→11:18)
[2023-04-18] MEDS: PREGABALIN 150 MG CAP PO SCH (08:00)
[2023-04-18] MEDS: POTASSIUM CHLORIDE CRTAB 20 MEQ TABCR PO SCH (08:00)
[2023-04-18] MEDS: HYDROmorphone INJ 0.5 MG/0.5 ML SYR IV PRN (08:55)
[2023-04-18] MEDS ORDERED: MAGNESIUM OXIDE 400 MG TAB PO SCH (09:00)
[2023-04-18] MEDS: oxyCODONE HCL IR 5 MG TAB (IMMEDIATE RELEASE) PO PRN ×2 (10:10→14:05)
[2023-04-18] MEDS ORDERED: POLYETHYLENE (MIRALAX) 17 GM PACK PO ONE (10:45)
[2023-04-18] MEDS ORDERED: DOCUSATE SODIUM/SENNA 50/8.6MG TAB PO ONE (10:45)
--- NOTE | 2023-04-18 10:55 | Discharge Summary ---
Discharge Summary Date of Service April 18, 2023 Notes For Next Care Provider Needs outpatient GI follow up for pancreatic cyst and recurrent pancreatitis Medication Changes From Visit Increased oxycodone to 10mg po tid prn moderate-severe pain x 3-4 day supply Admission HPI Per Admitting Provider Anisha is a 63-year-old female with a past medical history of GERD, hypertension, heart failure with preserved ejection fraction, COPD, mitral regurg, acute necrotizing ulcerative gingivitis, periodontal disease, stump neuropathy/neuralgia, peripheral arterial disease who presents with epigastric pain of 4 days. She has a history of chronic pancreatitis, denies fall/trauma/alcohol use. Pain has not improved with liquid diet and home oxycodone Prior history of pancreatitis. Treated with abx for a leg infection and then L DKA with subsequent liver dysfunciton Intermittent pancreatitis in the past Epigastric pain x4 days, 4 day sliquid diet, no improvement at home. Notes additional R abdominal pain and bloating, tight belly. Has a history of recurrent pancreatitis, this feels similar. This is her first episode in 'a while'. Usually improved with clears over 2-3 days, more persistent currently. Last seen in hospital last winter but went home after waiting few a hours in the ER and went away on its own with time. She feels she gets episodes 'once a while' but hard to quanitify how many times a year. She notes her symptoms do worsen with meals when she has a flare. She reprots she was camping at the [employer] fest and was eating funnel cake which she think sset off her current symtpoms. has had issues with [facility] chicken setting off episodes as well. NO history of cholecystectomy. No diarrhea or constipation. BMs are regular, brown medium consistency. No bloody/white/ colored BM. Has a leaky heart valve. [facility], failed a clip x1 and no longer a surgical candidate per [facility] clinic. Follows with Jaymie Dawson [facility] for recurrent pancreatitis. History of liver failure 2/2 severe prolonged antibiotics due to amoxicillin for infected ankle with hardware. 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 Just social with company at most 1 in a day often >3 weeks before drinks. No etoh that set this off No history of cirrhosis Collaterial from [facility]: Still drinks 1-2 beers every 1-2 weeks per. - Per GI 2 years ago had a EUS 05/2021. No pancreatic head lesion at that time. - [facility] here starting Wednesday Medical History: Reviewed Medications: Reviewed Surgical History: Reviewed Family history: Reviewed Allergies: Reviewed Social History: +1ppd tobacco use. ETOH as noted Code Status: Full Code Principal Dx & Hospital Course #1 = Principal Diagnosis (1) Acute pancreatitis: Mrs. Garcia is a 63 yo F who was admitted on 04/15/23 for a recurrent episode of acute pancreatitis - normal lipase of 67 on admission - A/P CT scan showed evidence of acute pancreatitis along with a new pancreatic fluid collection; no evidence of necrosis - MRCP with nothing remarkable other than the "complex cyst - GI consulted, no planned intervention, recommend outpatient follow up with [facility], will need repeat imaging - Pain is improved -- patient now tolerating a low fat diet - Pain control with PO Tylenol and prn oxycodone-increased from home dose of 5mg to 10mg po tid prn temporarily on discharge - As for the cause of her issues, no gallstones noted. Ca level normal. TG normal in 2018. May be from etoh, although according to patient, consumption is ~ 6 drinks a week or less. -continue Creon -started bowel regomen for opioid induced and pancreatitis induced constipation/ileus--> started Miralax x 1 dose, senna/docusate 2 tabs daily prn (2) Chronic hyponatremia: Plan: Gentle hydration on admission Continue with oral sodium chloride tablet Improved could be from alcohol use? (3) Anemia: Plan: No active bleeding at this time. chronic anemia but trending downward over last 6 months or so f/u with PCP ok to continue home Xarelto some reduction here to 8.6 likely hemodilutional from IVFs (4) Pancreatic cyst: Plan: Further management per gastroenterology (5) (HFpEF) heart failure with preserved ejection fraction: Plan: Gentle hydration was given for pancreatitis Continue outpatient diuretics including bumetanide 2 mg p.o. twice daily continue home po KCl (6) HTN (hypertension): Plan: Continue home metoprolol Hemodynamically stable (7) Smoker: Plan: Continue to do encourage abstention of all tobacco products (8) COPD (chronic obstructive pulmonary disease): Plan: No evidence of pulmonary function testing at this time Patient is an everyday smoker Currently not on any inhalers, nebulizers, or other adjunct treatment Continue to encourage abstention of tobacco products (9) Chronic atrial fibrillation: Plan: Continue Lopressor twice daily Currently rate and rhythm controlled continue rivaroxaban Plan Dispo-dc to home Discharge Exam Constitutional WD/WN, vitals as above Respiratory normal respiratory effort, lungs clear to auscultation Cardiovascular Rate/Rhythm: regular rate and + irregularly irregular Heart Sounds: no murmur Extremities: no edema Gastrointestinal (Abdomen) Inspection/Auscultation: abdomen normal to inspection and normal bowel sounds; abdomen not distended Percussion/Palpation: + abdomen tender (epigastric region, mild) and abdomen soft; abdomen not rigid Musculoskeletal Extremities: + extremities abnormal to inspection (left BKA) Psychiatric A+Ox3, euthymic affect Updated Medication List Medication Instructions Recorded Confirmed Type pantoprazole 40 mg tablet,delayed 40 mg PO QAM 07/18/18 04/15/23 History release (Protonix) atorvastatin 80 mg tablet (Lipitor) 80 mg PO HS 06/06/19 04/15/23 History lipase 3,000-protease 0 cap PO TID 07/31/19 04/15/23 History 9,500-amylase 15,000 unit capsule, delayed rel (Creon) aspirin 81 mg tablet,delayed 0 mg PO QAM 12/19/19 02/26/23 History release (Tj Low Dose Aspirin) pregabalin 300 mg capsule 300 mg PO BID 10/24/21 04/15/23 History zolpidem 10 mg tablet 10 mg PO HS 10/24/21 04/15/23 History ondansetron 8 mg disintegrating 0 mg PO Q12H PRN Nausea 06/11/22 02/26/23 History tablet rivaroxaban 20 mg tablet (Xarelto) 0 mg PO DAILY 06/11/22 02/26/23 History amitriptyline 50 mg tablet 50 mg PO HS 09/11/22 04/15/23 History metoprolol tartrate 25 mg tablet 25 mg PO BID 09/11/22 04/15/23 History potassium chloride 20 mEq 20 meq PO BID 09/11/22 04/15/23 History tablet,extended release sodium chloride 1 gram tablet 1,000 mg PO QAM 09/11/22 04/15/23 History bumetanide 2 mg tablet 2 mg PO BID #180 tabs 01/11/23 04/15/23 Rx acetaminophen 500 mg tablet 1,000 mg PO Q8H PRN pain #30 tabs 04/18/23 Rx (Tylenol Extra Strength) magnesium oxide 400 mg (241.3 mg 400 mg PO QAM #30 tabs 04/18/23 Rx magnesium) tablet oxycodone 5 mg capsule 10 mg PO TID PRN moderate-severe 04/18/23 Rx pain #20 caps sennosides 8.6 mg-docusate sodium 2 tab PO QAM PRN constipation #60 04/18/23 Rx 50 mg tablet (Senokot-S) tabs Hospital Stay Data Consultations 04/15/23 13:55 ED Decision to Admit Stat 04/15/23 17:10 Consult Gastroenterology Routine Diagnostic Imagining Performed 04/15/23 11:21 CT abd pelvis IV con only Stat 04/16/23 15:03 MR MRCP Routine Pending Results Patient Have Any Pending Studies at Discharge: No Discharge Instructions Given to Patient (Per Discharging Provider) Please continue to eat a low fat diet and follow up with your GI provider within 1-2 weeks for your pancreas cyst and pancreatitis. Total Time Total Time Spent Total Time Spent (In Minutes): 35 min Coding Level of Care Code 06688 INP/OBS DISCH >30 MIN Diagnoses Acute pancreatitis K85.90 Acute pancreatitis complication: no infection or necrosis Pancreatitis type: unspecified pancreatitis type
[2023-04-19] MEDS ORDERED: DOCUSATE SODIUM/SENNA 50/8.6MG TAB PO SCH (09:00)
[2023-04-19] MEDS ORDERED: POLYETHYLENE (MIRALAX) 17 GM PACK PO SCH (09:00)
== END 2023-04-18 14:17 | disposition home or self-care (01) | DRG 438 ==
LOC: ED 10:13 → 3N 14:54 → SUATTDRO 14:54 → 3N 17:37

== ENCOUNTER 2023-07-06 10:45 | Inpatient (IN) ==
[2023-07-06] MEDS ORDERED: ALBUT/IPRATROP 3MG/0.5MG NEB 3 ML VIAL NEB ONE (10:55)
--- NOTE | 2023-07-06 10:59 | Emergency Department Note ---
Impression & Plan Shortness of breath, Acute respiratory failure with hypoxia and hypercarbia, Leukocytosis, Elevated lactic acid level ED Provider Note HISTORY OF PRESENT ILLNESS: Patient is a 63-year-old female presenting with shortness of breath. Patient reports she woke up this morning and could not catch her breath. She denies any history of asthma or COPD, but she is a every day smoker. Denies any chest pain. Denies any recent antibiotic or steroid use. Denies any fevers. Denies any cough. Denies any recent sick contact exposure. On EMS arrival, the patient saturations were in the 70s on room air. Patient does not wear any supplemental oxygen at baseline. Denies any DVT or PE history. Patient's med list lists Xarelto and aspirin ROS: as above PHYSICAL EXAM: Constitutional: Patient appears in moderate distress. HENT: Head: Normocephalic and atraumatic. Eyes: EOMI, PERRL Mouth/Throat: Mucous membranes moist. Neck: Trachea midline. Neck supple. Cardiovascular: Tachycardic with regular rhythm. No murmurs, rubs or gallops. Intact distal pulses. Pulmonary/Chest: Tachypneic with abdominal retractions. Patient has crackles in the bilateral lower lobes. Expiratory wheezes in the bilateral upper lobes Abdominal: Abdomen soft, no tenderness, rebound or guarding. Back: No midline spinal tenderness, no paraspinal tenderness, no CVA tenderness. Musculoskeletal: Left lower extremity BKA. Skin: Warm and dry. No rash, erythema, pallor or cyanosis Psychiatric: Appropriate mood and affect for situation. Neurological: Alert and keenly responsive. CN II-XII grossly intact, moving all extremities equally and fully. MDM: - Vitals signs showed hypertension, tachycardia, tachypnea and hypoxia. Patient was transition to BiPAP on arrival to the ER. She was given a continuous DuoNeb. - History obtained via patient and EMS. Patient presents with shortness of breath. Patient states she woke up this morning felt like she could not catch her breath. Denies any history of COPD or asthma but does report she is a smoker. Denies any chest pain. Denies any recent antibiotic use or steroid use. Denies any cough or fevers. Denies any recent sick contact exposures. Denies any DVT or PE history. Patient is on Xarelto and aspirin per her med list - Chronic conditions affecting care: heart failure; Afib; DVT; HLD; HTN; PVD; mitral regurgitation - Differential diagnoses include, but are not limited to: Congestive heart failure; acute coronary syndrome; COPD/asthma exacerbation; pulmonary edema; pulmonary embolism; pneumonia; pneumothorax; viral syndrome - Order placed for continuous cardiac monitoring. At this time, monitor showed rate of 101 bpm with normal sinus rhythm, per my interpretation. - External medical records reviewed. EMS run sheet reviewed. Patient was hypoxic on their arrival and she was started on a nonrebreather as she would not tolerate the CPAP. - EKG reviewed by myself showed atrial fibrillation. Rate 92 bpm. QTc 417. No acute ischemic changes. Noted to have some T wave depressions in V6. - Laboratory workup interpreted by myself showed leukocytosis (WBC 13.32); anemia (Hgb 7.7); hyponatremia (Na 129); elevated anion gap (12); normal creatinine; elevated lactate (3.0); normal magnesium; normal troponin; normal BNP; normal procalcitonin - CXR negative for pneumonia or pleural effusion, per my interpretation. - Biofire negative. - VBG respiratory acidosis (pH 7.3; pCO2 52) - Blood cultures obtained. - Patient given IV azithromycin for pulmonary atypical coverage. - CT PE negative for PE. Noted to have some evidence of pulmonary edema. - Discussion was had with social media community manager about patient's case and need for admission - Hospitalist consulted for admission - [facility] I provided 63 minutes of critical care time to this patient's care outside of billable procedures. ASSESSMENT AND PLAN: Diagnosis: Shortness of breath; acute hypoxic and hypercarbic respiratory failure; anemia; hyponatremia; elevated lactate; leukocytosis Plan: admit Past Med/Surg History Medical History (HFpEF) heart failure with preserved ejection fraction Anxiety and depression AV block Chronic atrial fibrillation Chronic pain syndrome TRISTAN (dyspnea on exertion) DVT (deep venous thrombosis) Dyslipidemia GERD (gastroesophageal reflux disease) History of COVID-19 HTN (hypertension) Hx of gastric ulcer Hx of migraines Hx of pancreatitis Hyponatremia Metabolic alkalosis Neuropathy Pacemaker Pancreas cyst Paroxysmal atrial fibrillation PVD (peripheral vascular disease) Severe mitral regurgitation Tobacco use disorder Surgical History H/O vascular surgery History of amputation History of appendectomy History of cardiac cath (~04/24/21) History of colonoscopy History of esophagogastroduodenoscopy (EGD) History of surgery (~07/30/21) History of tooth extraction Hx of oral surgery (09/17/22) Hx of vascular surgery S/P angiogram of extremity S/P femoral-popliteal bypass surgery Status post below knee amputation of left lower extremity Status post ORIF of fracture of ankle Family History Unknown No problems noted. Father Family history of diabetes mellitus Other No family history of adverse response to anesthesia Social History Smoking Status: Current every day smoker Tobacco Type: Cigarettes Cigarettes Per Day: 10 daily>advised; Second Hand Exposure: Yes (on occas); Do You Dip or Chew Tobacco: No; Hx Alcohol Use: No Hx Substance Use: No Preferred Language: Sinhala Communication Ability: Effective Visual Impairment: No Limitations Cost Reduction Engineer Required: No Beliefs That Will Affect Care: None marital status: Current Living Situation: Spouse current occupation: Retired How many Children do You have: 1 Feels Safe at Home: Yes Assistive Devices: Denture - Upper, Denture - Lower, Glasses, Prosthesis and Wheelchair Allergies Allergies Allergy/AdvReac Type Severity Reaction Status Date / Time adhesive Allergy Severe SEVERE Verified 07/06/23 14:12 SKIN IRRITATION guanfacine Allergy Intermediate BP PROBLEMS Verified 07/06/23 14:12 nifedipine Allergy Intermediate BP PROBLEMS Verified 07/06/23 14:12 acetaminophen AdvReac Severe LIVER Verified 07/06/23 14:12 DAMAGE-DUE TO FAILURE amoxicillin AdvReac Severe LIVER Verified 07/06/23 14:12 FAILURE clavulanic acid AdvReac Severe LIVER Verified 07/06/23 14:12 FAILURE Home Meds Home Medications Medication Instructions Recorded Confirmed atorvastatin 80 mg tablet (Lipitor) 80 mg PO HS 06/06/19 07/06/23 aspirin 81 mg tablet,delayed 81 mg PO QAM 12/19/19 07/06/23 release (Tj Low Dose Aspirin) pregabalin 300 mg capsule 300 mg PO BID 10/24/21 07/06/23 zolpidem 10 mg tablet 10 mg PO HS 10/24/21 07/06/23 rivaroxaban 20 mg tablet (Xarelto) 20 mg PO HS 06/11/22 07/06/23 amitriptyline 50 mg tablet 50 mg PO HS 09/11/22 07/06/23 metoprolol succinate 25 mg 25 mg PO BID 04/25/23 07/06/23 tablet,extended release 24 hr potassium chloride 20 mEq 20 meq PO BID 06/24/23 07/06/23 tablet,extended release sodium chloride 1 gram tablet 1,000 mg PO BID 06/24/23 Previous Rx's Medication Instructions Recorded bumetanide 2 mg tablet 2 mg PO BID #180 tabs 01/11/23 oxycodone 5 mg capsule 10 mg PO TID PRN moderate-severe 04/18/23 pain #20 caps sennosides 8.6 mg-docusate sodium 2 tab PO QAM PRN constipation #60 04/18/23 50 mg tablet (Senokot-S) tabs pantoprazole 40 mg tablet,delayed 40 mg PO QAM #120 tabs 06/24/23 release (Protonix) Results & Data (ED) Vital Signs Vital Signs - 24 hr 07/06/23 10:56 07/06/23 11:01 07/06/23 11:01 Temperature Temperature Source Pulse Rate 109 H 100 H Pulse Rate [Apical] 100 H Pulse Rhythm Pulse Strength Respiratory Rate 33 H 33 H Respiratory Effort / Characteristics Spontaneous Short of Breath Spontaneous Short of Breath Respiratory Depth Respiratory Pattern Tachypnea Blood Pressure Blood Pressure Mean Blood Pressure Position Pulse Oximetry 100 99 Oxygen Delivery Method BiPAP Fraction of Inspired Oxygen 60 60 SaO2/FiO2 Ratio Sepsis Recent Fever Within 48 Hours Sepsis New/Unexplained Change in Mental Status Sepsis Action Taken by Nursing 07/06/23 10:50 07/06/23 11:04 07/06/23 11:04 Temperature 36.8 C Temperature Source Oral Pulse Rate 101 H 101 H Pulse Rate [Apical] Pulse Rhythm Irregular Irregular Pulse Strength Normal Respiratory Rate 48 H 48 H Respiratory Effort / Characteristics Spontaneous Accessory Muscle Use Labored Short of Breath SOB on Exertion Tripoding Spontaneous Accessory Muscle Use Labored Short of Breath SOB on Exertion Tripoding Respiratory Depth Retractive Normal Respiratory Pattern Tachypnea Tachypnea Blood Pressure 161/134 H Blood Pressure Mean 143 Blood Pressure Position Sitting Pulse Oximetry 100 89 L Oxygen Delivery Method BiPAP Non-rebreather Fraction of Inspired Oxygen 60 SaO2/FiO2 Ratio 166 Sepsis Recent Fever Within 48 Hours No Sepsis New/Unexplained Change in Mental Status No Sepsis Action Taken by Nursing Physician Notified Laboratory Data 07/06/23 10:59 07/06/23 10:59 Lab Results 07/06/23 07/06/23 07/06/23 Range/Units 10:59 10:59 10:59 WBC 13.32 H (4.8-10.8) K/ul RBC 3.14 L (4.20-5.40) M/uL Hgb 7.7 L (12.0-16.0) g/dl Hct 25.4 L (37.0-47.0) % MCV 80.9 (80.0-100.0) fL MCH 24.5 L (25.0-34.0) pg MCHC 30.3 L (32.0-36.0) g/dL RDW Std Deviation 60.5 H (36.4-46.3) fL RDW Coeff of Marlon 20.9 H (11.5-14.5) % Plt Count 188 (130-400) K/uL MPV 12.7 H (9.4-12.4) fL Immature Gran % (Auto) 1.7 % Neut % (Auto) 79.6 % Lymph % (Auto) 12.8 % Stephens % (Auto) 4.9 % Eos % (Auto) 0.5 % Baso % (Auto) 0.5 % Neut # (Auto) 10.61 H (1.40-6.50) K/uL Lymph # (Auto) 1.71 (1.20-3.40) K/uL Stephens # (Auto) 0.65 H (0.11-0.59) K/uL Eos # (Auto) 0.07 (0.00-0.50) K/uL Baso # (Auto) 0.06 (0.00-0.20) K/uL Immature Gran # (Auto) 0.22 H (0.01-0.20) K/uL Absolute Nucleated RBC 0.03 (0.00-0.12) K/uL Nucleated RBC % (auto) 0.2 % Polychromasia 1+ Poikilocytosis Present Anisocytosis Present Tear Drop Cells 1+ PT 12.8 H (9.0-12.0) Seconds INR 1.2 H (0.9-1.1) VBG pH (7.36-7.41) VBG pCO2 (38-50) mmHg VBG pO2 mmHg VBG HCO3 mmol/L VBG O2 Saturation % VBG Base Excess mEq/L Sodium 129 L (136-145) mmol/L Potassium 3.9 (3.5-5.1) mmol/L Chloride 93 L (98-107) mmol/L Carbon Dioxide 24 (21-32) mmol/L Anion Gap 12 H (3-11) BUN 14 (6-23) mg/dl Creatinine 0.99 (0.6-1.2) mg/dl Est Cr Clr Drug Dosing 65.9 ml/min Est GFR ( Amer) 70.3 ml/min Est GFR (Non-Af Amer) 60.6 ml/min BUN/Creatinine Ratio 14.1 (10-20) Glucose 158 H (70-99(Fasting)) mg/dl Lactate (0.4-2.0) mmol/L Calcium 8.7 (8.6-10.3) mg/dl Magnesium 1.7 (1.7-2.4) mg/dl Total Bilirubin 1.7 H (0.2-1.0) mg/dl Direct Bilirubin 0.8 H (0-0.2) mg/dl AST 25 (13-39) U/L ALT 9 (7-52) U/L Alkaline Phosphatase 171 H (34-104) U/L Troponin I High Sens 8.1 (0-14) pg/ml B-Natriuretic Peptide (0-100) pg/ml Total Protein 7.4 (6.0-8.3) gm/dl Albumin 3.7 (3.4-5.0) gm/dl Procalcitonin (0-0.5) ng/ml Urine Color Urine Appearance (Clear) Urine pH (4.5-7.5) Ur Specific Clendenin (1.000-1.030) Urine Protein (Negative) Urine Glucose (UA) (Negative) Urine Ketones (Negative) Urine Blood (Negative) Urine Nitrite (Negative) Urine Bilirubin (Negative) Urine Urobilinogen (Negative) Ur Leukocyte Esterase (Negative) Adenovirus (PCR) (NotDetected) B. pertussis DNA (PCR) (NotDetected) B.parapertussis DNA PCR (NotDetected) C. pneumoniae DNA (PCR) (NotDetected) Coronavirus OC43 (PCR) (NotDetected) Coronavirus HKU1 (PCR) (NotDetected) Coronavirus 229E (PCR) (NotDetected) SARS-CoV-2 (PCR) (NotDetected) Coronavirus NL63 (PCR) (NotDetected) Human Metapneumovir PCR (NotDetected) Influenza Type A (PCR) (NotDetected) Influenza Type B (PCR) (NotDetected) M. pneumoniae (PCR) (NotDetected) Parainfluenza 1 (PCR) (NotDetected) Parainfluenza 2 (PCR) (NotDetected) Parainfluenza 3 (PCR) (NotDetected) Parainfluenza 4 (PCR) (NotDetected) RSV (PCR) (NotDetected) Entero/Rhino (PCR) (NotDetected) 07/06/23 07/06/23 07/06/23 Range/Units 10:59 10:59 10:59 WBC (4.8-10.8) K/ul RBC (4.20-5.40) M/uL Hgb (12.0-16.0) g/dl Hct (37.0-47.0) % MCV (80.0-100.0) fL MCH (25.0-34.0) pg MCHC (32.0-36.0) g/dL RDW Std Deviation (36.4-46.3) fL RDW Coeff of Marlon (11.5-14.5) % Plt Count (130-400) K/uL MPV (9.4-12.4) fL Immature Gran % (Auto) % Neut % (Auto) % Lymph % (Auto) % Stephens % (Auto) % Eos % (Auto) % Baso % (Auto) % Neut # (Auto) (1.40-6.50) K/uL Lymph # (Auto) (1.20-3.40) K/uL Stephens # (Auto) (0.11-0.59) K/uL Eos # (Auto) (0.00-0.50) K/uL Baso # (Auto) (0.00-0.20) K/uL Immature Gran # (Auto) (0.01-0.20) K/uL Absolute Nucleated RBC (0.00-0.12) K/uL Nucleated RBC % (auto) % Polychromasia Poikilocytosis Anisocytosis Tear Drop Cells PT (9.0-12.0) Seconds INR (0.9-1.1) VBG pH 7.30 L (7.36-7.41) VBG pCO2 52 H (38-50) mmHg VBG pO2 59 mmHg VBG HCO3 26 mmol/L VBG O2 Saturation 84.1 % VBG Base Excess -1.6 mEq/L Sodium (136-145) mmol/L Potassium (3.5-5.1) mmol/L Chloride (98-107) mmol/L Carbon Dioxide (21-32) mmol/L Anion Gap (3-11) BUN (6-23) mg/dl Creatinine (0.6-1.2) mg/dl Est Cr Clr Drug Dosing ml/min Est GFR ( Amer) ml/min Est GFR (Non-Af Amer) ml/min BUN/Creatinine Ratio (10-20) Glucose (70-99(Fasting)) mg/dl Lactate 3.0 H* (0.4-2.0) mmol/L Calcium (8.6-10.3) mg/dl Magnesium (1.7-2.4) mg/dl Total Bilirubin (0.2-1.0) mg/dl Direct Bilirubin (0-0.2) mg/dl AST (13-39) U/L ALT (7-52) U/L Alkaline Phosphatase (34-104) U/L Troponin I High Sens (0-14) pg/ml B-Natriuretic Peptide (0-100) pg/ml Total Protein (6.0-8.3) gm/dl Albumin (3.4-5.0) gm/dl Procalcitonin < 0.05 (0-0.5) ng/ml Urine Color Urine Appearance (Clear) Urine pH (4.5-7.5) Ur Specific Clendenin (1.000-1.030) Urine Protein (Negative) Urine Glucose (UA) (Negative) Urine Ketones (Negative) Urine Blood (Negative) Urine Nitrite (Negative) Urine Bilirubin (Negative) Urine Urobilinogen (Negative) Ur Leukocyte Esterase (Negative) Adenovirus (PCR) (NotDetected) B. pertussis DNA (PCR) (NotDetected) B.parapertussis DNA PCR (NotDetected) C. pneumoniae DNA (PCR) (NotDetected) Coronavirus OC43 (PCR) (NotDetected) Coronavirus HKU1 (PCR) (NotDetected) Coronavirus 229E (PCR) (NotDetected) SARS-CoV-2 (PCR) (NotDetected) Coronavirus NL63 (PCR) (NotDetected) Human Metapneumovir PCR (NotDetected) Influenza Type A (PCR) (NotDetected) Influenza Type B (PCR) (NotDetected) M. pneumoniae (PCR) (NotDetected) Parainfluenza 1 (PCR) (NotDetected) Parainfluenza 2 (PCR) (NotDetected) Parainfluenza 3 (PCR) (NotDetected) Parainfluenza 4 (PCR) (NotDetected) RSV (PCR) (NotDetected) Entero/Rhino (PCR) (NotDetected) 07/06/23 07/06/23 07/06/23 Range/Units 10:59 10:59 13:10 WBC (4.8-10.8) K/ul RBC (4.20-5.40) M/uL Hgb (12.0-16.0) g/dl Hct (37.0-47.0) % MCV (80.0-100.0) fL MCH (25.0-34.0) pg MCHC (32.0-36.0) g/dL RDW Std Deviation (36.4-46.3) fL RDW Coeff of Marlon (11.5-14.5) % Plt Count (130-400) K/uL MPV (9.4-12.4) fL Immature Gran % (Auto) % Neut % (Auto) % Lymph % (Auto) % Stephens % (Auto) % Eos % (Auto) % Baso % (Auto) % Neut # (Auto) (1.40-6.50) K/uL Lymph # (Auto) (1.20-3.40) K/uL Stephens # (Auto) (0.11-0.59) K/uL Eos # (Auto) (0.00-0.50) K/uL Baso # (Auto) (0.00-0.20) K/uL Immature Gran # (Auto) (0.01-0.20) K/uL Absolute Nucleated RBC (0.00-0.12) K/uL Nucleated RBC % (auto) % Polychromasia Poikilocytosis Anisocytosis Tear Drop Cells PT (9.0-12.0) Seconds INR (0.9-1.1) VBG pH (7.36-7.41) VBG pCO2 (38-50) mmHg VBG pO2 mmHg VBG HCO3 mmol/L VBG O2 Saturation % VBG Base Excess mEq/L Sodium (136-145) mmol/L Potassium (3.5-5.1) mmol/L Chloride (98-107) mmol/L Carbon Dioxide (21-32) mmol/L Anion Gap (3-11) BUN (6-23) mg/dl Creatinine (0.6-1.2) mg/dl Est Cr Clr Drug Dosing ml/min Est GFR ( Amer) ml/min Est GFR (Non-Af Amer) ml/min BUN/Creatinine Ratio (10-20) Glucose (70-99(Fasting)) mg/dl Lactate 3.2 H* (0.4-2.0) mmol/L Calcium (8.6-10.3) mg/dl Magnesium (1.7-2.4) mg/dl Total Bilirubin (0.2-1.0) mg/dl Direct Bilirubin (0-0.2) mg/dl AST (13-39) U/L ALT (7-52) U/L Alkaline Phosphatase (34-104) U/L Troponin I High Sens (0-14) pg/ml B-Natriuretic Peptide 87 (0-100) pg/ml Total Protein (6.0-8.3) gm/dl Albumin (3.4-5.0) gm/dl Procalcitonin (0-0.5) ng/ml Urine Color Urine Appearance (Clear) Urine pH (4.5-7.5) Ur Specific Clendenin (1.000-1.030) Urine Protein (Negative) Urine Glucose (UA) (Negative) Urine Ketones (Negative) Urine Blood (Negative) Urine Nitrite (Negative) Urine Bilirubin (Negative) Urine Urobilinogen (Negative) Ur Leukocyte Esterase (Negative) Adenovirus (PCR) Not Detected (NotDetected) B. pertussis DNA (PCR) Not Detected (NotDetected) B.parapertussis DNA PCR Not Detected (NotDetected) C. pneumoniae DNA (PCR) Not Detected (NotDetected) Coronavirus OC43 (PCR) Not Detected (NotDetected) Coronavirus HKU1 (PCR) Not Detected (NotDetected) Coronavirus 229E (PCR) Not Detected (NotDetected) SARS-CoV-2 (PCR) Not Detected (NotDetected) Coronavirus NL63 (PCR) Not Detected (NotDetected) Human Metapneumovir PCR Not Detected (NotDetected) Influenza Type A (PCR) Not Detected (NotDetected) Influenza Type B (PCR) Not Detected (NotDetected) M. pneumoniae (PCR) Not Detected (NotDetected) Parainfluenza 1 (PCR) Not Detected (NotDetected) Parainfluenza 2 (PCR) Not Detected (NotDetected) Parainfluenza 3 (PCR) Not Detected (NotDetected) Parainfluenza 4 (PCR) Not Detected (NotDetected) RSV (PCR) Not Detected (NotDetected) Entero/Rhino (PCR) Not Detected (NotDetected) 07/06/23 Range/Units 14:15 WBC (4.8-10.8) K/ul RBC (4.20-5.40) M/uL Hgb (12.0-16.0) g/dl Hct (37.0-47.0) % MCV (80.0-100.0) fL MCH (25.0-34.0) pg MCHC (32.0-36.0) g/dL RDW Std Deviation (36.4-46.3) fL RDW Coeff of Marlon (11.5-14.5) % Plt Count (130-400) K/uL MPV (9.4-12.4) fL Immature Gran % (Auto) % Neut % (Auto) % Lymph % (Auto) % Stephens % (Auto) % Eos % (Auto) % Baso % (Auto) % Neut # (Auto) (1.40-6.50) K/uL Lymph # (Auto) (1.20-3.40) K/uL Stephens # (Auto) (0.11-0.59) K/uL Eos # (Auto) (0.00-0.50) K/uL Baso # (Auto) (0.00-0.20) K/uL Immature Gran # (Auto) (0.01-0.20) K/uL Absolute Nucleated RBC (0.00-0.12) K/uL Nucleated RBC % (auto) % Polychromasia Poikilocytosis Anisocytosis Tear Drop Cells PT (9.0-12.0) Seconds INR (0.9-1.1) VBG pH (7.36-7.41) VBG pCO2 (38-50) mmHg VBG pO2 mmHg VBG HCO3 mmol/L VBG O2 Saturation % VBG Base Excess mEq/L Sodium (136-145) mmol/L Potassium (3.5-5.1) mmol/L Chloride (98-107) mmol/L Carbon Dioxide (21-32) mmol/L Anion Gap (3-11) BUN (6-23) mg/dl Creatinine (0.6-1.2) mg/dl Est Cr Clr Drug Dosing ml/min Est GFR ( Amer) ml/min Est GFR (Non-Af Amer) ml/min BUN/Creatinine Ratio (10-20) Glucose (70-99(Fasting)) mg/dl Lactate (0.4-2.0) mmol/L Calcium (8.6-10.3) mg/dl Magnesium (1.7-2.4) mg/dl Total Bilirubin (0.2-1.0) mg/dl Direct Bilirubin (0-0.2) mg/dl AST (13-39) U/L ALT (7-52) U/L Alkaline Phosphatase (34-104) U/L Troponin I High Sens (0-14) pg/ml B-Natriuretic Peptide (0-100) pg/ml Total Protein (6.0-8.3) gm/dl Albumin (3.4-5.0) gm/dl Procalcitonin (0-0.5) ng/ml Urine Color Yellow Urine Appearance Clear (Clear) Urine pH 5.5 (4.5-7.5) Ur Specific Clendenin 1.006 (1.000-1.030) Urine Protein Negative (Negative) Urine Glucose (UA) Negative (Negative) Urine Ketones Negative (Negative) Urine Blood Negative (Negative) Urine Nitrite Negative (Negative) Urine Bilirubin Negative (Negative) Urine Urobilinogen Negative (Negative) Ur Leukocyte Esterase Negative (Negative) Adenovirus (PCR) (NotDetected) B. pertussis DNA (PCR) (NotDetected) B.parapertussis DNA PCR (NotDetected) C. pneumoniae DNA (PCR) (NotDetected) Coronavirus OC43 (PCR) (NotDetected) Coronavirus HKU1 (PCR) (NotDetected) Coronavirus 229E (PCR) (NotDetected) SARS-CoV-2 (PCR) (NotDetected) Coronavirus NL63 (PCR) (NotDetected) Human Metapneumovir PCR (NotDetected) Influenza Type A (PCR) (NotDetected) Influenza Type B (PCR) (NotDetected) M. pneumoniae (PCR) (NotDetected) Parainfluenza 1 (PCR) (NotDetected) Parainfluenza 2 (PCR) (NotDetected) Parainfluenza 3 (PCR) (NotDetected) Parainfluenza 4 (PCR) (NotDetected) RSV (PCR) (NotDetected) Entero/Rhino (PCR) (NotDetected) Administered Medications Discontinued Medications Albuterol (Albut/Ipratrop 3mg/0.5mg Neb 3 Ml Vial) 12 ml NEB ONE ONE; Protocol Stop: 07/06/23 10:56 Last Admin: 07/06/23 11:01 Dose: 12 ml Documented By: [place] Sodium Chloride (Nss) 1,000 mls @ 1,600 mls/hr IV .Q38M ONE Stop: 07/06/23 12:27 Last Admin: 07/06/23 14:19 Dose: 1,600 mls/hr Documented By: TBS Azithromycin 500 mg/ Dextrose 255 mls @ 127.5 mls/hr IV NOW STA Stop: 07/06/23 14:06 Last Admin: 07/06/23 14:19 Dose: 127.5 mls/hr Documented By: [facility] Imaging Data Radiologist's Impression: Chest X-Ray 07/06/23 10:54 XR chest 1V portable CLINICAL HISTORY: Sepsis. COMPARISON STUDY: Chest CT September 16, 2021 chest radiograph July 31, 2022. FINDINGS: Patient is mildly rotated. Dual lead left subclavian pacer is in place. Cardiomegaly is unchanged. There is no evidence for pulmonary edema. There is no consolidation to suggest pneumonia. The appearance of the chest has not significantly changed. IMPRESSION: No acute cardiopulmonary findings. No significant change in appearance of the chest. ACT 112: Negative or not required by law. Electronically signed by: Diogo Johnson M.D. 07/06/2023 11:42 AM Chest CTA 07/06/23 12:42 CHEST CTA for PULMONARY ARTERIES CT DOSE: HISTORY: Shortness of breath. TECHNIQUE: Multiaxial CT images of the chest were performed following the intravenous administration of contrast to evaluate the pulmonary arteries. 3D/Maximal intensity projection images were also obtained. Sagittal and coronal reformations were also reviewed. A dose lowering technique was utilized adhering to the principles of ALARA. COMPARISON STUDY: Chest CTA 09/16/2021. FINDINGS: A left-sided pacemaker is again noted. Normal caliber thoracic aorta with no evidence for a dissection. No filling defects within the pulmonary arteries to suggest a pulmonary embolus. Limited views of the upper abdomen demonstrate a normal liver and spleen. Left adrenal gland thickening is again noted. Normal esophagus. The heart is mildly enlarged. No pleural or pericardial effusions. Calcified right hilar lymph nodes and a calcified granuloma within the right upper lobe. No mediastinal or hilar lymphadenopathy. No suspicious lytic or blastic osseous lesions. The central airways are patent. No pneumothorax. A stable 4 mm nodule within the left lung apex on image 189. This is likely benign. Additional small patchy densities are seen within the left lung apex. Stable 4 mm nodule within the left upper lobe on image 170. There is mild interlobular septal thickening suggestive of mild pulmonary edema. Patchy and linear densities within the left lung base are nonspecific. This favors atelectasis. A low-grade pneumonitis is not excluded. IMPRESSION: 1. No evidence for a pulmonary embolus. 2. Mild cardiomegaly. 3. Mild interlobular septal thickening. This suggests mild interstitial pulmonary edema. 4. Small patchy densities within the left lung apex with additional patchy/linear densities at the left lung base. This is nonspecific and could be due to atelectasis, a component of the pulmonary edema, or a superimposed low- grade pneumonitis. 5. Additional findings as described above. ACT 112: Negative or not required by law. Electronically signed by: Manan Colmenares M.D. 07/06/2023 3:15 PM Discharge Plan Visit Data Chief Complaint: Respiratory Distress Stated Complaint: RESPIRATORY DISTRESS ED Provider: Monica Vizcarra Discharge Problem: Shortness of breath, Acute respiratory failure with hypoxia and hypercarbia, Leukocytosis, Elevated lactic acid level Forms Stand Alone Forms: My [facility] VivoText Prescriptions Prescriptions: No Action bumetanide 2 mg tablet 2 mg PO BID Qty: 180 1RF potassium chloride 20 mEq tablet extended release 20 meq PO BID pantoprazole [Protonix] 40 mg tablet,delayed release (DR/EC) 40 mg PO QAM Qty: 120 3RF sodium chloride 1 gram tablet 1,000 mg PO BID Xarelto 20 mg tablet 20 mg PO HS Patient Comments: pt does not have holding instructions>encouraged to call and ask atorvastatin [Lipitor] 80 mg tablet 80 mg PO HS aspirin [Tj Low Dose Aspirin] 81 mg Tablet,Delayed Release (Dr/Ec) 81 mg PO QAM amitriptyline 50 mg Tablet 50 mg PO HS zolpidem 10 mg tablet 10 mg PO HS Rx Instructions: Verified with [facility] pharmacist pregabalin 300 mg capsule 300 mg PO BID sennosides-docusate sodium [Senokot-S] 8.6-50 mg Tablet 2 tab PO QAM PRN (Reason: constipation) Qty: 60 0RF Rx Instructions: OTC oxycodone 5 mg capsule 10 mg PO TID PRN (Reason: moderate-severe pain) Qty: 20 0RF metoprolol succinate 25 mg tablet extended release 24 hr 25 mg PO BID Referrals Referrals: Kat Morataya MD [Primary Care Provider] -
[2023-07-06 11:22] LABS: Base Excess VBG -1.6 mEq/L; HCO3 VBG 26 mmol/L; Oxygen Saturation VBG 84.1 %; PCO2 VBG 52 mmHg (38-50); PO2 VBG 59 mmHg
--- NOTE | 2023-07-06 11:43 | XRay Report ---
XR chest 1V portable CLINICAL HISTORY: Sepsis. COMPARISON STUDY: Chest CT September 16, 2021 chest radiograph July 31, 2022. FINDINGS: Patient is mildly rotated. Dual lead left subclavian pacer is in place. Cardiomegaly is unc hanged. There is no evidence for pulmonary edema. There is no consolidation to suggest pneumonia. The appearance of the chest has not significantly changed. IMPRESSION: No acute cardiopulmonary findings. No significant change in appearance of the chest. ACT 112: Negative or not required by law. Electronically signed by: Diogo Johnson M.D. 07/06/2023 11:42 AM
[2023-07-06 11:46] LABS: Albumin Level 3.7 gm/dl (3.4-5.0); BUN Creatinine Ratio 14.1 (10-20); Bilirubin Direct 0.8 mg/dl (0-0.2); Bilirubin,Total 1.7 mg/dl (0.2-1.0); Calcium 8.7 mg/dl (8.6-10.3); Creatinine Clr Calc Pharmacy 65.9 ml/min; Est GFR (African American) 70.3 ml/min; Est GFR (Non-African American) 60.6 ml/min; Magnesium 1.7 mg/dl (1.7-2.4); Potassium 3.9 mmol/L (3.5-5.1); Total Protein 7.4 gm/dl (6.0-8.3)
[2023-07-06 11:47] LABS: Anisocytosis Present; Basophils # (auto) 0.06 K/uL (0.00-0.20); Basophils % (auto) 0.5 %; Eosinophils # (auto) 0.07 K/uL (0.00-0.50); Eosinophils % (auto) 0.5 %; Hematocrit (blood only) 25.4 % (37.0-47.0); Hemoglobin 7.7 g/dl (12.0-16.0); Immature Granulocytes # (auto) 0.22 K/uL (0.01-0.20); Immature Granulocytes % (auto) 1.7 %; Lymphocytes # (auto) 1.71 K/uL (1.20-3.40); Lymphocytes % (auto) 12.8 %; Mean Corpuscular Hemoglobin 24.5 pg (25.0-34.0); Mean Corpuscular Hgb Conc 30.3 g/dL (32.0-36.0); Mean Corpuscular Volume 80.9 fL (80.0-100.0); Mean Platelet Volume 12.7 fL (9.4-12.4); Monocytes # (auto) 0.65 K/uL (0.11-0.59); Monocytes % (auto) 4.9 %; Neutrophils # (auto) 10.61 K/uL (1.40-6.50); Neutrophils % (auto) 79.6 %; Nucleated RBC # (auto) 0.03 K/uL (0.00-0.12); Nucleated RBC % (auto) 0.2 %; Platelet Count 188 K/uL (130-400); Poikilocytosis Present; Polychromasia 1+; RDW Coefficient of Variation 20.9 % (11.5-14.5); RDW Standard Deviation 60.5 fL (36.4-46.3); Red Blood Count 3.14 M/uL (4.20-5.40); Tear Drop Cells 1+; White Blood Count 13.32 K/ul (4.8-10.8)
[2023-07-06] MEDS ORDERED: SODIUM CHLORIDE 0.9% 1,000 ML IV ONE (11:50)
[2023-07-06 11:51] LABS: Troponin I High Sensitivity 8.1 pg/ml (0-14)
[2023-07-06 11:57] LABS: INR 1.2 (0.9-1.1); Prothrombin Time 12.8 Seconds (9.0-12.0)
[2023-07-06] MEDS ORDERED: AZITHROMYCIN 500 MG in DEXTROSE 5% 250 ML IV STA (12:07)
[2023-07-06 12:43] LABS: Adenovirus PCR Not Detected (NotDetected); Bordetella parapertussis PCR Not Detected (NotDetected); Bordetella pertussis PCR Not Detected (NotDetected); Chlamydia pneumoniae PCR Not Detected (NotDetected); Coronavirus 229E PCR Not Detected (NotDetected); Coronavirus CoV-2 (COVID19)PCR Not Detected (NotDetected); Coronavirus HKU1 PCR Not Detected (NotDetected); Coronavirus NL63 PCR Not Detected (NotDetected); Coronavirus OC43PCR Not Detected (NotDetected); Human Metapneumovirus PCR Not Detected (NotDetected); Influenza A PCR Not Detected (NotDetected); Influenza B PCR Not Detected (NotDetected); Mycoplasma pneumoniae PCR Not Detected (NotDetected); Parainfluenza Virus 1 PCR Not Detected (NotDetected); Parainfluenza Virus 2 PCR Not Detected (NotDetected); Parainfluenza Virus 3 PCR Not Detected (NotDetected); Parainfluenza Virus 4 PCR Not Detected (NotDetected); Respiratory Syncytial VirusPCR Not Detected (NotDetected); Rhinovirus/Enterovirus PCR Not Detected (NotDetected)
[2023-07-06] MEDS ORDERED: SODIUM CHLORIDE 0.9% 1,000 ML IV STA (13:56)
[2023-07-06 15:05] LABS: Appearance Urine Clear (Clear); Bilirubin Urine Negative (Negative); Blood Urine Negative (Negative); Color Urine Yellow; Glucose Urine UA Negative (Negative); Ketones Urine Negative (Negative); Leukocyte Esterase Urine Negative (Negative); Nitrite Urine Negative (Negative); Protein Urine Negative (Negative); Specific Gravity Urine 1.006 (1.000-1.030); Urobilinogen Urine Negative (Negative); pH Urine 5.5 (4.5-7.5)
[2023-07-06] MEDS ORDERED: SODIUM CHLORIDE 0.9% 250 ML IV PRN ×2 (15:14→23:00)
--- NOTE | 2023-07-06 15:16 | CT Scan Report ---
CHEST CTA for PULMONARY ARTERIES CT DOSE: HISTORY: Shortness of breath. TECHNIQUE: Multiaxial CT images of the chest were performed following the intravenous administration of contrast to evaluate the pulmonary arteries. 3D/Maximal intensity projection images were also obta ined. Sagittal and coronal reformations were also reviewed. A dose lowering technique was utilized a dhering to the principles of ALARA. COMPARISON STUDY: Chest CTA 09/16/2021. FINDINGS: A left-sided pacemaker is again noted. Normal caliber thoracic aorta with no evidence for a dissection. No filling defects within the pulmonary arteries to suggest a pulmonary embolus. Limited views of the upper abdomen demonstrate a normal liver and spleen. Left adrenal gland thickening is a gain noted. Normal esophagus. The heart is mildly enlarged. No pleural or pericardial effusions. Calc ified right hilar lymph nodes and a calcified granuloma within the right upper lobe. No mediastinal o r hilar lymphadenopathy. No suspicious lytic or blastic osseous lesions. The central airways are christopher nt. No pneumothorax. A stable 4 mm nodule within the left lung apex on image 189. This is likely marcia gn. Additional small patchy densities are seen within the left lung apex. Stable 4 mm nodule within t he left upper lobe on image 170. There is mild interlobular septal thickening suggestive of mild pulm onary edema. Patchy and linear densities within the left lung base are nonspecific. This favors atele ctasis. A low-grade pneumonitis is not excluded. IMPRESSION: 1. No evidence for a pulmonary embolus. 2. Mild cardiomegaly. 3. Mild interlobular septal thickening. This suggests mild interstitial pulmonary edema. 4. Small patchy densities within the left lung apex with additional patchy/linear densities at the le ft lung base. This is nonspecific and could be due to atelectasis, a component of the pulmonary edema , or a superimposed low-grade pneumonitis. 5. Additional findings as described above. ACT 112: Negative or not required by law. Electronically signed by: Manan Colmenares M.D. 07/06/2023 3:15 PM
[2023-07-06] MEDS ORDERED: BUMETANIDE 2 MG in SYRINGE 0 ML IV STA (15:34)
[2023-07-06] MEDS ORDERED: CEFEPIME 2,000 MG in SYRINGE 0 ML IV STA (15:34)
--- NOTE | 2023-07-06 15:56 | Electrocardiogram Report ---
Test Reason : Blood Pressure : / mmHG Vent. Rate : 092 BPM Atrial Rate : 000 BPM P-R Int : 000 ms QRS Dur : 078 ms QT Int : 338 ms P-R-T Axes : 000 091 -85 degrees QTc Int : 417 ms Atrial fibrillation Rightward axis Abnormal ECG When compared with ECG of 17-APR-2023 20:05, Electronic ventricular pacemaker no longer present Confirmed by Mj Herrera ([id number]) on 07/06/2023 3:56:11 PM Referred By: Confirmed By:Mj Herrera
[2023-07-06 15:59] LABS: Reticulocyte % 4.5 % (0.5-2.0); Reticulocytes # 0.13 10^6/uL (0.02-0.10)
[2023-07-06 16:17] LABS: Base Excess ABG 2.6 mEq/L (-9-1.8); HCO3 ABG 27 mmol/L (19-24); Oxygen Saturation ABG 99.3 % (90-95); PCO2 ABG 41 mmHg (35-46); PO2 ABG 156 mmHg (80-95); pH ABG 7.43 (7.35-7.45)
[2023-07-06 16:23] LABS: Allen Test Pos (Pos)
[2023-07-06 16:24] LABS: C Reactive Protein 1.13 mg/dl (0-0.5)
[2023-07-06 16:45] LABS: Ferritin 19.6 ng/ml (8-388)
[2023-07-06 16:49] LABS: Folate (Folic Acid),Ser orPlas 11.03 ng/ml (>5.38)
[2023-07-06] MEDS ORDERED: OPTIRAY 320 100ml IV ONE (19:15)
[2023-07-06] MEDS ORDERED: ACETAMINOPHEN 325 MG TAB PO PRN (19:38)
--- NOTE | 2023-07-06 19:44 | History & Physical Report ---
Date of Service July 06, 2023 Assessment & Plan (1) Acute respiratory failure with hypoxia: Plan: Unclear cause of acute worsening shortness of breath this morning ?mucus plugging. ABG taken on BiPAP suggests she currently doesn't require this. No oxygen at baseline but not clear she requires it currently - just having difficulty with O2 sats probe, continue to wean to aim O2 sats > 90% Will trial her back on nasal cannula with just using BiPAP while sleeping. Suspect she is just worse in the morning due to obesity hypoventilation / obstructive sleep apnea +/- mucus plugging. Difficulty getting accurate O2 sats here therefore not clear she had such low O2 sats when seen by EMS but certainly she was tachypneic when she arrived with a low pH on VBG. No clear heart failure (see below). More progressive shortness of breath suspect from anemia (see below). (2) Iron deficiency anemia: Plan: Slow trend down since September - suspect not causing her acute episode this morning but maybe causing slow progressive worsening Will transfuse if Hgb <=7 although may need higher threshold if she remains symptomatic FOB present EGD relatively unremarkable but she did have mild diffuse inflammation consistent with gastritis and biopsies were taken at that time Reports not having a colonoscopy in years (3) Elevated lactic acid level: Plan: Suspect related to hypoxia rather than hypovoemia given lack of improvement with IV fluids Suprisingly IV fluids also did not make her breathing much worse and is urinating significant amounts despite not taking her Bumex this morning Suspect lactate will improving with better oxygenation (4) Leukocytosis: Plan: Initially given broad spectrum antibiotics awaiting CT A/P and further workup however no suspected source found and procalcitonin negative. Suspect this is just a stress reaction and will repeat with AM labs - discontinued further antibiotics (5) (HFpEF) heart failure with preserved ejection fraction: Plan: Suspect mildly hypervolemic however IV fluids in the ER do not seem to have severely compromised her breathing and her urine output has picked up suggesting her cardiac output may have improved with IV fluids. She is fixated on her breathing worse in the mornings up until she receives her Bumex although the lack of decompensation with 1.6L of IV fluids suggests her cardiorenal system can deal with large enough fluid balances Will continue her usual Bumex 2mg PO BID for now No urine retention on bladder scan Torres catheter placed on admission for accurate I&Os Suggest aiming for slight net negative balance (6) Hyponatremia: Plan: ?Diuretic use. Given both normal saline in the ER due to concerns for sepsis. Will give her back her usual Bumex dosing Salt tabs increased to 1g BID per last nephrology note, however given slight concern for hypervolemic status will reduce back to once daily urine osm/Na ordered but suspect Na will be high just from diuretics. Repeat with AM labs (7) GERD (gastroesophageal reflux disease): Plan: Continue pantoprazole 40mg PO daily (8) Smoker: Plan: Declines nicotine patch - high recommended cessation (9) Chronic atrial fibrillation: Plan: Holding Xarelto pending stability in Hgb Continue metoprolol succinate for rate control (10) COPD (chronic obstructive pulmonary disease): Plan: Patient denies this diagnosis. She continues to smoke. She is not on any maintenance inhalers and currently has no wheezing. (11) Chronic pain syndrome: Plan: Initially held her oxycodone given drosy state however subsequently improved and will restart her usual oxycodone (12) PVD (peripheral vascular disease): Plan: Hold aspirin pending stability in hemoglobin Continue atorvastatin Plan VTE Prophylaxis - restart Xarelto if FOB negative and hemoglovin stable Diet - NPO Disposition - admit to PCU Admission and Anticipated Discharge Date Admission Date: July 06, 2023 History of Present Illness Chief Complaint: Shortness of breath Primary Care Provider: Kat Morataya MD Anisha Garcia is a 63 year old female who presents to the ER due to sudden onset shortness of breath. Difficult to get definitive history with her about her deterioration but possibly progressive worse over the last week. She was seen by Dr Murcia on June 23 and the patient reports she was told to take extra Bumex due to her breathing issues although this is not mentioned in the note. She was advised to increase her sodium and potassium after her labs came back. This morning however she reports sudden worsening shortness of breath when she woke up. No chest pain, fever, chills, nasal congestion, sinus pain, sore throat. She called her and was rapidly breathing therefore he called EMS who brought her to the ER - initialy O2 sats 70s on room air. Initial VBG prior to BiPAP with pH 7.3 despite tachypnea. She continues to smoke half a pack of cigarettes every day. No oxygen at baseline. Allergies Allergy/AdvReac Type Severity Reaction Status Date / Time adhesive Allergy Severe SEVERE Verified 07/06/23 14:12 SKIN IRRITATION guanfacine Allergy Intermediate BP PROBLEMS Verified 07/06/23 14:12 nifedipine Allergy Intermediate BP PROBLEMS Verified 07/06/23 14:12 acetaminophen AdvReac Severe LIVER Verified 07/06/23 14:12 DAMAGE-DUE TO FAILURE amoxicillin AdvReac Severe LIVER Verified 07/06/23 14:12 FAILURE clavulanic acid AdvReac Severe LIVER Verified 07/06/23 14:12 FAILURE Home Medications Medication Instructions Recorded Confirmed Type atorvastatin 80 mg tablet (Lipitor) 80 mg PO HS 06/06/19 07/06/23 History aspirin 81 mg tablet,delayed 81 mg PO QAM 12/19/19 07/06/23 History release (Tj Low Dose Aspirin) pregabalin 300 mg capsule 300 mg PO BID 10/24/21 07/06/23 History zolpidem 10 mg tablet 10 mg PO HS 10/24/21 07/06/23 History rivaroxaban 20 mg tablet (Xarelto) 20 mg PO HS 06/11/22 07/06/23 History amitriptyline 50 mg tablet 50 mg PO HS 09/11/22 07/06/23 History bumetanide 2 mg tablet 2 mg PO BID #180 tabs 01/11/23 07/06/23 Rx oxycodone 5 mg capsule 10 mg PO TID PRN moderate-severe 04/18/23 07/06/23 Rx pain #20 caps sennosides 8.6 mg-docusate sodium 2 tab PO QAM PRN constipation #60 04/18/23 07/06/23 Rx 50 mg tablet (Senokot-S) tabs metoprolol succinate 25 mg 25 mg PO BID 04/25/23 07/06/23 History tablet,extended release 24 hr pantoprazole 40 mg tablet,delayed 40 mg PO QAM #120 tabs 06/24/23 07/06/23 Rx release (Protonix) potassium chloride 20 mEq 20 meq PO BID 06/24/23 07/06/23 History tablet,extended release sodium chloride 1 gram tablet 1,000 mg PO BID 06/24/23 History Past Med/Surg History Medical History (HFpEF) heart failure with preserved ejection fraction Anxiety and depression AV block Chronic atrial fibrillation Chronic pain syndrome TRISTAN (dyspnea on exertion) DVT (deep venous thrombosis) Dyslipidemia GERD (gastroesophageal reflux disease) History of COVID-19 HTN (hypertension) Hx of gastric ulcer Hx of migraines Hx of pancreatitis Hyponatremia Metabolic alkalosis Neuropathy Pacemaker Pancreas cyst Paroxysmal atrial fibrillation PVD (peripheral vascular disease) Severe mitral regurgitation Tobacco use disorder Surgical History H/O vascular surgery History of amputation History of appendectomy History of cardiac cath (~04/24/21) History of colonoscopy History of esophagogastroduodenoscopy (EGD) History of surgery (~07/30/21) History of tooth extraction Hx of oral surgery (09/17/22) Hx of vascular surgery S/P angiogram of extremity S/P femoral-popliteal bypass surgery Status post below knee amputation of left lower extremity Status post ORIF of fracture of ankle Family History Unknown No problems noted. Father Family history of diabetes mellitus Other No family history of adverse response to anesthesia Social History Smoking Status: Current every day smoker Tobacco Type: Cigarettes Cigarettes Per Day: 1/2 ppd; Second Hand Exposure: No; Do You Dip or Chew Tobacco: No; Tobacco Cessation Education Requested by Patient: No Hx Alcohol Use: Yes Alcohol type: beer Hx Substance Use: No Preferred Language: Yoruba Communication Ability: Effective Visual Impairment: No Limitations Php Programmer Required: No Beliefs That Will Affect Care: None marital status: Current Living Situation: Spouse current occupation: Retired How many Children do You have: 1 Other Information That Helps Us Care for You: No Feels Safe at Home: Yes Safety Concerns: Feels Safe At This Time Assistive Devices: Denture - Upper, Denture - Lower, Glasses and Prosthesis Assistive Devices Comment: left leg Review of Systems Review of Systems: All systems reviewed & are unremarkable except as noted in HPI & below Physical Exam Constitutional: well developed and + acute distress; + not well nourished Eyes: PERRL, conjunctivae normal, anicteric sclerae Respiratory: normal respiratory effort, lungs clear to auscultation Cardiovascular: Rate/Rhythm: regular rate and + irregularly irregular Heart Sounds: + murmur (LEIDY 2/6) Extremities: normal capillary refill and + pedal edema (trace pitting b/l); no calf tenderness Gastrointestinal (Abdomen): Inspection/Auscultation: abdomen normal to inspection; abdomen not distended Percussion/Palpation: + abdomen tender (suprapubic and LLQ pain) and abdomen soft; no guarding and abdomen not rigid Musculoskeletal: no cyanosis or clubbing, extremities motor strength 5/5 Skin: no rashes, warm and dry Neurologic: moves all extremities and awake (to voice); not confused Psychiatric: Orientation: alert, oriented to person and oriented to place; + not oriented to time Genitourinary: no CVA tenderness Results & Data Results & Data Vital Signs (Past 12 Hours) Vital Signs Temp Pulse Pulse Resp BP BP Pulse Ox 07/06/23 18:49 77 16 136/93 100 07/06/23 18:10 36.9 C 77 16 99 07/06/23 16:30 79 16 100 07/06/23 16:30 07/06/23 16:12 82 07/06/23 15:15 80 19 100 07/06/23 15:20 74 15 100 07/06/23 15:10 76 13 100 07/06/23 15:00 76 14 100 07/06/23 14:50 75 16 98 07/06/23 14:40 84 18 100 07/06/23 14:30 78 17 100 07/06/23 14:20 84 16 91 07/06/23 14:10 83 20 07/06/23 14:06 84 21 07/06/23 13:30 100 07/06/23 13:30 153/90 H 07/06/23 13:20 100 07/06/23 13:10 100 07/06/23 13:01 150/92 H 07/06/23 13:01 100 07/06/23 13:00 100 07/06/23 12:50 100 07/06/23 12:40 100 07/06/23 12:30 97 H 23 71 L 07/06/23 12:20 97 H 17 98 07/06/23 12:10 103 H 21 88 L 07/06/23 12:01 89/59 L 07/06/23 12:01 96 H 22 95 07/06/23 12:00 90 17 100 07/06/23 11:50 99 H 18 100 07/06/23 11:40 103 H 25 H 98 07/06/23 11:30 99 H 20 100 07/06/23 11:20 101 H 13 100 07/06/23 11:10 100 H 18 100 07/06/23 11:00 97 H 22 07/06/23 10:54 113 H 24 07/06/23 11:04 36.8 C 101 H 48 H 161/134 H 89 L 07/06/23 10:50 101 H 48 H 100 07/06/23 11:01 100 H 33 H 99 07/06/23 11:01 100 H 33 H 100 07/06/23 10:56 109 H O2 Del Method O2 Flow Rate FiO2 07/06/23 18:49 Nasal Cannula 4 07/06/23 18:10 Nasal Cannula 4 07/06/23 16:30 BiPAP 07/06/23 16:30 BiPAP 07/06/23 16:12 07/06/23 15:15 50 07/06/23 15:20 BiPAP 07/06/23 15:10 07/06/23 15:00 07/06/23 14:50 07/06/23 14:40 07/06/23 14:30 07/06/23 14:20 07/06/23 14:10 07/06/23 14:06 07/06/23 13:30 07/06/23 13:30 07/06/23 13:20 07/06/23 13:10 07/06/23 13:01 07/06/23 13:01 07/06/23 13:00 07/06/23 12:50 07/06/23 12:40 07/06/23 12:30 07/06/23 12:20 07/06/23 12:10 07/06/23 12:01 07/06/23 12:01 07/06/23 12:00 07/06/23 11:50 07/06/23 11:40 07/06/23 11:30 07/06/23 11:20 07/06/23 11:10 07/06/23 11:00 07/06/23 10:54 07/06/23 11:04 Non-rebreather 07/06/23 10:50 BiPAP 60 07/06/23 11:01 60 07/06/23 11:01 BiPAP 60 07/06/23 10:56 Laboratory Results Abnormal lab results 07/06/23 07/06/23 07/06/23 Range/Units 10:59 10:59 10:59 WBC 13.32 H (4.8-10.8) K/ul RBC 3.14 L (4.20-5.40) M/uL Hgb 7.7 L (12.0-16.0) g/dl Hct 25.4 L (37.0-47.0) % MCH 24.5 L (25.0-34.0) pg MCHC 30.3 L (32.0-36.0) g/dL RDW Std Deviation 60.5 H (36.4-46.3) fL RDW Coeff of Marlon 20.9 H (11.5-14.5) % MPV 12.7 H (9.4-12.4) fL Reticulocyte % (Auto) (0.5-2.0) % Neut # (Auto) 10.61 H (1.40-6.50) K/uL Calloway # (Auto) 0.65 H (0.11-0.59) K/uL Reticulocyte # (0.02-0.10) 10^6/uL Immature Gran # (Auto) 0.22 H (0.01-0.20) K/uL PT 12.8 H (9.0-12.0) Seconds INR 1.2 H (0.9-1.1) ABG pH (7.35-7.45) ABG pO2 (80-95) mmHg ABG HCO3 (19-24) mmol/L ABG O2 Saturation (90-95) % ABG Base Excess (-9-1.8) mEq/L VBG pH (7.36-7.41) VBG pCO2 (38-50) mmHg Sodium 129 L (136-145) mmol/L Chloride 93 L (98-107) mmol/L Anion Gap 12 H (3-11) Glucose 158 H (70-99(Fasting)) mg/dl Lactate (0.4-2.0) mmol/L Iron (35-150) mcg/dl Unsaturated IBC (155-355) mcg/dl Transferrin % Sat (15-50) % Total Bilirubin 1.7 H (0.2-1.0) mg/dl Direct Bilirubin 0.8 H (0-0.2) mg/dl Alkaline Phosphatase 171 H (34-104) U/L C-Reactive Protein (0-0.5) mg/dl Lipase (11-82) U/L Urine Osmolality (500-800) mOsm/kg Crossmatch 07/06/23 07/06/23 07/06/23 Range/Units 10:59 10:59 13:10 WBC (4.8-10.8) K/ul RBC (4.20-5.40) M/uL Hgb (12.0-16.0) g/dl Hct (37.0-47.0) % MCH (25.0-34.0) pg MCHC (32.0-36.0) g/dL RDW Std Deviation (36.4-46.3) fL RDW Coeff of Marlon (11.5-14.5) % MPV (9.4-12.4) fL Reticulocyte % (Auto) (0.5-2.0) % Neut # (Auto) (1.40-6.50) K/uL Calloway # (Auto) (0.11-0.59) K/uL Reticulocyte # (0.02-0.10) 10^6/uL Immature Gran # (Auto) (0.01-0.20) K/uL PT (9.0-12.0) Seconds INR (0.9-1.1) ABG pH (7.35-7.45) ABG pO2 (80-95) mmHg ABG HCO3 (19-24) mmol/L ABG O2 Saturation (90-95) % ABG Base Excess (-9-1.8) mEq/L VBG pH 7.30 L (7.36-7.41) VBG pCO2 52 H (38-50) mmHg Sodium (136-145) mmol/L Chloride (98-107) mmol/L Anion Gap (3-11) Glucose (70-99(Fasting)) mg/dl Lactate 3.0 H* 3.2 H* (0.4-2.0) mmol/L Iron (35-150) mcg/dl Unsaturated IBC (155-355) mcg/dl Transferrin % Sat (15-50) % Total Bilirubin (0.2-1.0) mg/dl Direct Bilirubin (0-0.2) mg/dl Alkaline Phosphatase (34-104) U/L C-Reactive Protein (0-0.5) mg/dl Lipase (11-82) U/L Urine Osmolality (500-800) mOsm/kg Crossmatch 07/06/23 07/06/23 07/06/23 Range/Units 14:15 15:49 15:49 WBC (4.8-10.8) K/ul RBC (4.20-5.40) M/uL Hgb (12.0-16.0) g/dl Hct (37.0-47.0) % MCH (25.0-34.0) pg MCHC (32.0-36.0) g/dL RDW Std Deviation (36.4-46.3) fL RDW Coeff of Marlon (11.5-14.5) % MPV (9.4-12.4) fL Reticulocyte % (Auto) 4.5 H (0.5-2.0) % Neut # (Auto) (1.40-6.50) K/uL Calloway # (Auto) (0.11-0.59) K/uL Reticulocyte # 0.13 H (0.02-0.10) 10^6/uL Immature Gran # (Auto) (0.01-0.20) K/uL PT (9.0-12.0) Seconds INR (0.9-1.1) ABG pH (7.35-7.45) ABG pO2 (80-95) mmHg ABG HCO3 (19-24) mmol/L ABG O2 Saturation (90-95) % ABG Base Excess (-9-1.8) mEq/L VBG pH (7.36-7.41) VBG pCO2 (38-50) mmHg Sodium (136-145) mmol/L Chloride (98-107) mmol/L Anion Gap (3-11) Glucose (70-99(Fasting)) mg/dl Lactate (0.4-2.0) mmol/L Iron (35-150) mcg/dl Unsaturated IBC (155-355) mcg/dl Transferrin % Sat (15-50) % Total Bilirubin (0.2-1.0) mg/dl Direct Bilirubin (0-0.2) mg/dl Alkaline Phosphatase (34-104) U/L C-Reactive Protein (0-0.5) mg/dl Lipase (11-82) U/L Urine Osmolality 154 L (500-800) mOsm/kg Crossmatch See Detail 07/06/23 07/06/23 07/06/23 Range/Units 15:49 15:49 20:06 WBC (4.8-10.8) K/ul RBC (4.20-5.40) M/uL Hgb 7.0 L (12.0-16.0) g/dl Hct 22.3 L (37.0-47.0) % MCH (25.0-34.0) pg MCHC (32.0-36.0) g/dL RDW Std Deviation (36.4-46.3) fL RDW Coeff of Marlon (11.5-14.5) % MPV (9.4-12.4) fL Reticulocyte % (Auto) (0.5-2.0) % Neut # (Auto) (1.40-6.50) K/uL Calloway # (Auto) (0.11-0.59) K/uL Reticulocyte # (0.02-0.10) 10^6/uL Immature Gran # (Auto) (0.01-0.20) K/uL PT (9.0-12.0) Seconds INR (0.9-1.1) ABG pH (7.35-7.45) ABG pO2 156 H (80-95) mmHg ABG HCO3 27 H (19-24) mmol/L ABG O2 Saturation 99.3 H (90-95) % ABG Base Excess 2.6 H (-9-1.8) mEq/L VBG pH (7.36-7.41) VBG pCO2 (38-50) mmHg Sodium (136-145) mmol/L Chloride (98-107) mmol/L Anion Gap (3-11) Glucose (70-99(Fasting)) mg/dl Lactate (0.4-2.0) mmol/L Iron 17 L (35-150) mcg/dl Unsaturated IBC 402 H (155-355) mcg/dl Transferrin % Sat 4 L (15-50) % Total Bilirubin (0.2-1.0) mg/dl Direct Bilirubin (0-0.2) mg/dl Alkaline Phosphatase (34-104) U/L C-Reactive Protein 1.13 H (0-0.5) mg/dl Lipase 9 L (11-82) U/L Urine Osmolality (500-800) mOsm/kg Crossmatch 07/06/23 07/06/23 Range/Units 20:06 20:06 WBC (4.8-10.8) K/ul RBC (4.20-5.40) M/uL Hgb (12.0-16.0) g/dl Hct (37.0-47.0) % MCH (25.0-34.0) pg MCHC (32.0-36.0) g/dL RDW Std Deviation (36.4-46.3) fL RDW Coeff of Marlon (11.5-14.5) % MPV (9.4-12.4) fL Reticulocyte % (Auto) (0.5-2.0) % Neut # (Auto) (1.40-6.50) K/uL Calloway # (Auto) (0.11-0.59) K/uL Reticulocyte # (0.02-0.10) 10^6/uL Immature Gran # (Auto) (0.01-0.20) K/uL PT (9.0-12.0) Seconds INR (0.9-1.1) ABG pH 7.51 H* (7.35-7.45) ABG pO2 123 H (80-95) mmHg ABG HCO3 30 H (19-24) mmol/L ABG O2 Saturation 98.8 H (90-95) % ABG Base Excess 6.9 H (-9-1.8) mEq/L VBG pH (7.36-7.41) VBG pCO2 (38-50) mmHg Sodium (136-145) mmol/L Chloride (98-107) mmol/L Anion Gap (3-11) Glucose (70-99(Fasting)) mg/dl Lactate 2.1 H* (0.4-2.0) mmol/L Iron (35-150) mcg/dl Unsaturated IBC (155-355) mcg/dl Transferrin % Sat (15-50) % Total Bilirubin (0.2-1.0) mg/dl Direct Bilirubin (0-0.2) mg/dl Alkaline Phosphatase (34-104) U/L C-Reactive Protein (0-0.5) mg/dl Lipase (11-82) U/L Urine Osmolality (500-800) mOsm/kg Crossmatch Diagnostic Findings XR chest 1V portable CLINICAL HISTORY: Sepsis. COMPARISON STUDY: Chest CT September 16, 2021 chest radiograph July 31, 2022. FINDINGS: Patient is mildly rotated. Dual lead left subclavian pacer is in place. Cardiomegaly is unchanged. There is no evidence for pulmonary edema. There is no consolidation to suggest pneumonia. The appearance of the chest has not significantly changed. IMPRESSION: No acute cardiopulmonary findings. No significant change in appearance of the chest. CHEST CTA for PULMONARY ARTERIES CT DOSE: HISTORY: Shortness of breath. TECHNIQUE: Multiaxial CT images of the chest were performed following the intravenous administration of contrast to evaluate the pulmonary arteries. 3D/Maximal intensity projection images were also obtained. Sagittal and coronal reformations were also reviewed. A dose lowering technique was utilized adhering to the principles of ALARA. COMPARISON STUDY: Chest CTA 09/16/2021. FINDINGS: A left-sided pacemaker is again noted. Normal caliber thoracic aorta with no evidence for a dissection. No filling defects within the pulmonary arteries to suggest a pulmonary embolus. Limited views of the upper abdomen demonstrate a normal liver and spleen. Left adrenal gland thickening is again noted. Normal esophagus. The heart is mildly enlarged. No pleural or pericardial effusions. Calcified right hilar lymph nodes and a calcified granuloma within the right upper lobe. No mediastinal or hilar lymphadenopathy. No suspicious lytic or blastic osseous lesions. The central airways are patent. No pneumothorax. A stable 4 mm nodule within the left lung apex on image 189. This is likely benign. Additional small patchy densities are seen within the left lung apex. Stable 4 mm nodule within the left upper lobe on image 170. There is mild interlobular septal thickening suggestive of mild pulmonary edema. Patchy and linear densities within the left lung base are nonspecific. This favors atelectasis. A low-grade pneumonitis is not excluded. IMPRESSION: 1. No evidence for a pulmonary embolus. 2. Mild cardiomegaly. 3. Mild interlobular septal thickening. This suggests mild interstitial pulmonary edema. 4. Small patchy densities within the left lung apex with additional patchy/linear densities at the left lung base. This is nonspecific and could be due to atelectasis, a component of the pulmonary edema, or a superimposed low-grade pneumonitis. 5. Additional findings as described above. Exam(s): CT ABDOMEN + PELVIS With Contrast IV Amt: 90ml EXAM: CT Abdomen and Pelvis With Intravenous Contrast CLINICAL HISTORY: Reason for exam: suprapubic pain, LLQ pain, sepsis. TECHNIQUE: Axial computed tomography images of the abdomen and pelvis with intravenous contrast. CTDI is 25.81 mGy and DLP is 1427.18 mGy-cm. Automated exposure control was utilized for the study. A dose lowering technique was utilized adhering to the principles of ALARA. CONTRAST: Patient received 90ml of IV contrast COMPARISON: No relevant prior studies available. FINDINGS: Lung bases: Unremarkable. No mass. No consolidation. ABDOMEN: Liver: Unremarkable. No mass. Gallbladder and bile ducts: Unremarkable. No calcified stones. No ductal dilation. Pancreas: Mild edema surrounding the pancreas, concerning for mild acute pancreatitis. Mild wall thickening of the adjacent duodenum. No ductal dilation. Spleen: Which is low attenuation in the posterior spleen, measuring approximately 5.0 x 3.0 cm, consistent with splenic infarct. Adrenals: Unremarkable. No mass. Kidneys and ureters: Unremarkable. No solid mass. No hydronephrosis. Stomach and bowel: Diverticulosis, without acute diverticulitis. No bowel obstruction. No free air. PELVIS: Appendix: No findings to suggest acute appendicitis. Bladder: Decompressed urinary bladder which contains a Torres catheter. Reproductive: Unremarkable as visualized. ABDOMEN and PELVIS: Intraperitoneal space: See above. Bones/joints: Degenerative changes of the spine. No acute fracture. No dislocation. Soft tissues: Mild anasarca. Scarring in the RIGHT inguinal region. Vasculature: Atherosclerotic changes of the aorta. No abdominal aortic aneurysm. Lymph nodes: Unremarkable. No enlarged lymph nodes. IMPRESSION: 1. Mild edema surrounding the pancreas, concerning for mild acute pancreatitis. Mild wall thickening of the adjacent duodenum. 2. Which is low attenuation in the posterior spleen, measuring approximately 5.0 x 3.0 cm, consistent with splenic infarct. 3. Decompressed urinary bladder which contains a Torres catheter. 4. Diverticulosis, without acute diverticulitis. No bowel obstruction. No free air. Medications Administered ER Medications Given: Duoneb 12ml bolus Normal saline 1600ml Azithromycin 500mg IV ECG Rate (beats per minute): 92 Rhythm: atrial fibrillation Findings: no acute ischemic change Comparison ECG Date: from (April 17, 2023) Change: no significant change Code Status & VTE Plan Code Status Full VTE Prophylaxis Plan VTE Prophylaxis will be ordered: Yes PG Care Time/CCT Total # of Minutes Spent Total Time Spent with Patient: Total time spent is greater than 50% in coordination of care (as documented) at patient's floor/unit and/or counseling patient: Coding Level of Care Code 76015 INT INP/OBS CARE 3/75MIN Diagnoses Acute respiratory failure with hypoxia J96.01 Iron deficiency anemia D50.9 Elevated lactic acid level R79.89 Leukocytosis D72.829 (HFpEF) heart failure with preserved ejection fraction I50.30 Hyponatremia E87.1 GERD (gastroesophageal reflux disease) K21.9 Esophagitis presence: esophagitis presence not specified Smoker F17.200 Chronic atrial fibrillation I48.20 COPD (chronic obstructive pulmonary disease) J44.9 COPD type: unspecified COPD Chronic pain syndrome G89.4 PVD (peripheral vascular disease) I73.9 (7) GERD (gastroesophageal reflux disease) Esophagitis presence: esophagitis presence not specified Qualified Code(s): K21.9 - Gastro-esophageal reflux disease without esophagitis (10) COPD (chronic obstructive pulmonary disease) COPD type: unspecified COPD Qualified Code(s): J44.9 - Chronic obstructive pulmonary disease, unspecified
--- NOTE | 2023-07-06 20:19 | CT Scan Report ---
Exam(s): CT ABDOMEN + PELVIS With Contrast IV Amt: 90ml EXAM: CT Abdomen and Pelvis With Intravenous Contrast CLINICAL HISTORY: Reason for exam: suprapubic pain, LLQ pain, sepsis. TECHNIQUE: Axial computed tomography images of the abdomen and pelvis with intravenous contrast. CTDI is 25.81 mGy and DLP is 1427.18 mGy-cm. Automated exposure control was utilized for the study. A dose lowering technique was utilized adhering to the principles of ALARA. CONTRAST: Patient received 90ml of IV contrast COMPARISON: No relevant prior studies available. FINDINGS: Lung bases: Unremarkable. No mass. No consolidation. ABDOMEN: Liver: Unremarkable. No mass. Gallbladder and bile ducts: Unremarkable. No calcified stones. No ductal dilation. Pancreas: Mild edema surrounding the pancreas, concerning for mild acute pancreatitis. Mild wall thickening of the adjacent duodenum. No ductal dilation. Spleen: Which is low attenuation in the posterior spleen, measuring approximately 5.0 x 3.0 cm, consistent with splenic infarct. Adrenals: Unremarkable. No mass. Kidneys and ureters: Unremarkable. No solid mass. No hydronephrosis. Stomach and bowel: Diverticulosis, without acute diverticulitis. No bowel obstruction. No free air. PELVIS: Appendix: No findings to suggest acute appendicitis. Bladder: Decompressed urinary bladder which contains a Torres catheter. Reproductive: Unremarkable as visualized. ABDOMEN and PELVIS: Intraperitoneal space: See above. Bones/joints: Degenerative changes of the spine. No acute fracture. No dislocation. Soft tissues: Mild anasarca. Scarring in the RIGHT inguinal region. Vasculature: Atherosclerotic changes of the aorta. No abdominal aortic aneurysm. Lymph nodes: Unremarkable. No enlarged lymph nodes. IMPRESSION: 1. Mild edema surrounding the pancreas, concerning for mild acute pancreatitis. Mild wall thickening of the adjacent duodenum. 2. Which is low attenuation in the posterior spleen, measuring approximately 5.0 x 3.0 cm, consistent with splenic infarct. 3. Decompressed urinary bladder which contains a Torres catheter. 4. Diverticulosis, without acute diverticulitis. No bowel obstruction. No free air. Electronically signed by: Suresh Boone MD 07/06/23 20:18 PM
[2023-07-06 20:21] LABS: Base Excess ABG 6.9 mEq/L (-9-1.8); HCO3 ABG 30 mmol/L (19-24); Oxygen Saturation ABG 98.8 % (90-95); PCO2 ABG 38 mmHg (35-46); PO2 ABG 123 mmHg (80-95)
[2023-07-06 20:23] LABS: Allen Test Pos (Pos)
[2023-07-06 20:24] LABS: pH ABG 7.51 (7.35-7.45)
[2023-07-06] MEDS ORDERED: PREGABALIN 150 MG CAP PO SCH (21:00)
[2023-07-06] MEDS ORDERED: AMITRIPTYLINE HCL 50 MG TAB PO SCH (21:00)
[2023-07-06 21:03] LABS: Amphetamines+Metham, Urine Neg (Neg); Barbiturates, Urine Neg (Neg); Benzodiazepine, Urine Neg (Neg); Cocaine, Urine Neg (Neg); MDMA (Ecstacy), Urine Neg (Neg); Methadone, Urine Neg (Neg); Opiate, Urine Neg (Neg); Phencyclidine, Urine Neg (Neg)
[2023-07-06 21:17] LABS: Hematocrit (blood only) 22.3 % (37.0-47.0)
[2023-07-06] MEDS ORDERED: ZOLPIDEM TARTRATE 10 MG TAB PO SCH (22:00)
[2023-07-06] MEDS: METOPROLOL SUCC 25MG EXT REL TAB PO SCH (22:02)
[2023-07-06] MEDS: POTASSIUM CHLORIDE CRTAB 20 MEQ TABCR PO SCH (22:02)
[2023-07-06] MEDS: ATORVASTATIN 40 MG TAB PO SCH (22:03)
[2023-07-06] MEDS ORDERED: PANTOprazole 40 MG in SYRINGE 0 ML IV STA (23:16)
[2023-07-06] MEDS ORDERED: BUMETANIDE 2 MG in SYRINGE 0 ML IV ONE (23:30)
[2023-07-06] MEDS: oxyCODONE HCL IR 5 MG TAB (IMMEDIATE RELEASE) PO PRN (23:33)
[2023-07-07] MEDS: PREGABALIN 150 MG CAP PO SCH ×3 (00:38→20:44)
--- NOTE | 2023-07-07 07:22 | Hospitalist Progress Note ---
Date of Service July 07, 2023 Assessment & Plan (1) Iron deficiency anemia: (2) Acute respiratory failure with hypoxia: (3) Acute respiratory failure with hypoxia and hypercarbia: (4) Shortness of breath: (5) Leukocytosis: (6) Elevated lactic acid level: Plan Anisha Garcia is a 63 year-old female who presented to the ER due to sudden onset shortness of breath. Acute respiratory failure with hypoxia Unclear cause of acute worsening shortness of breath- suspect etiology is related to fluid overload. Symptoms improving quite quickly. Currently on 2L NC at 100% oxygen. Continue to wean to aim O2 sats > 90% Could consider obesity hypoventilation / obstructive sleep apnea +/- mucus plugging as possible contributing factors. Difficulty getting accurate O2 sats here therefore not clear she had such low O2 sats when seen by EMS but certainly she was tachypneic when she arrived with a low pH on VBG. No clear heart failure (see below). More progressive shortness of breath suspect from anemia (see below). Splenic Infarct CT abdomen/pelvis- "low attenuation in the posterior spleen, measuring approximately 5.0 x 3.0 cm, consistent with splenic infarct." -Incidental finding without any left sided abdominal pain -Etiology unknown with undetermined significance. -Routine hematology consult placed Chronic Pancreatitis Known chronic problem, minimal diffused abdominal pain with palpation No interventions indicated at this time Iron deficiency anemia Slow trend down since September -improved on repeat H&H today EGD relatively unremarkable but she did have mild diffuse inflammation consistent with gastritis and biopsies were taken at that time Reports not having a colonoscopy in years Leukocytosis, Lactic Acid Initially given broad spectrum antibiotics awaiting CT A/P and further workup however no suspected source found and procalcitonin negative. -WBC normal this morning. Discontinued further antibiotics Suspect related to hypoxia rather than hypovolemia given lack of improvement with IV fluids Surprisingly IV fluids also did not make her breathing much worse and is urinating significant amounts (HFpEF) heart failure with preserved ejection fraction Suspect mildly hypervolemic however IV fluids in the ER do not seem to have severely compromised her breathing and her urine output has picked up suggesting her cardiac output may have improved with IV fluids. Continue her usual Bumex 2mg PO BID No urine retention on bladder scan Torres catheter placed on admission for accurate I&Os Hyponatremia ?Diuretic use. Was given NSS in ED. Salt tabs increased to 1g BID per last nephrology note, however given slight concern for hypervolemic status will reduce back to once daily Repeat BMP in a.m. GERD (gastroesophageal reflux disease) Continue pantoprazole 40mg PO daily Smoker Declines nicotine patch - high recommended cessation Chronic atrial fibrillation Held Xarelto initially due to decreased Hgb on admission Continue metoprolol succinate for rate control COPD (chronic obstructive pulmonary disease) Patient denies this diagnosis. She continues to smoke. She is not on any maintenance inhalers and currently has no wheezing. Chronic pain syndrome Continue chronic oxycodone PVD (peripheral vascular disease) Hold aspirin pending stability in hemoglobin Continue atorvastatin Plan VTE Prophylaxis - restart Xarelto Diet - NPO Disposition - admit to PCU Admission and Anticipated Discharge Date Admission Date: July 06, 2023 Supervising Physician Co-Signing Physician Notes I personally examined the patient and verified all stearns points of history and exam, discussed case, and agree with decision making with Dr Jacobsen Feeling better than whenever she came in. Breathing overall improving. Was not sure if she was more short of breath laying flatafter we discussed, I briefly laid her flat while we were talking, and she did notice that it made her breathing feel worse, and she started coughing some. Sitting her back up again she felt better again. Otherwise no new complaints. No abdominal pain. Vitals noted, in general she is awake and alert pleasant no distress. HEENT normocephalic atraumatic mucous membranes moist. Lungs diminished bibasilar but no real rales rhonchi or wheezes moderate effort moderate air movement at best. Abdomen is soft mildly distended mild diffuse tenderness without guarding rebou nd or rigidity nothing focal with the tenderness. Hypoxia/dyspneaafter further review probably predominantly pulmonary edema/acute on chronic HFpEFimproving with diuresis. Continue to wean oxygen. Splenic infarctuncertain etiology, uncertain significance, but certainly cannot ignore even though it is an incidental findingwe will ask him otology for input. Pancreatitis finding on CThas prior pancreatic pathology, no abdominal painI wonder if it is a little bit of a drip down from her CHF, versus chronic type findings. Anticipate resuming Xarelto if hemoglobin stable by tomorrow Subjective Patient was seen and examined at bedside. She notes that she awoke with significant shortness of breath, has never experienced this before. Notes some general fatigue in the past few days but otherwise was eating and drinking normally. Denies chest pain or pressure. Notes some mild bloating. Review of Systems Review of Systems: As per above Physical Exam Constitutional: + obese; no acute distress Eyes: + anicteric sclerae; no conjunctival abnormality ENMT: Ears: no external ear abnormality Nose: no external nose abnormality Moist mucous membranes Respiratory: able to speak in complete sentences; does not use accessory muscles Occasional cough and scattered wheeze. Nonproductive. Nasal cannula in place Gastrointestinal (Abdomen): Mild tenderness to general palpation. Not localized. +bowel sounds Musculoskeletal: Left BKA Skin: no rashes, warm and dry Psychiatric: A+Ox3, euthymic affect Genitourinary: Torres catheter in place Results & Data Results & Data Vital Signs (Past 12 Hours) Vital Signs Temp Pulse Pulse Resp BP BP Pulse Ox 07/07/23 07:04 07/07/23 06:13 36.5 C 72 14 130/74 98 07/07/23 05:37 36.7 C 78 16 131/74 98 07/07/23 04:46 113/76 07/07/23 04:37 36.5 C 68 14 92/64 L 95 07/07/23 04:07 36.5 C 72 16 110/65 94 07/07/23 03:54 108/66 07/07/23 03:52 36.5 C 77 16 90/52 L 98 07/07/23 03:38 07/07/23 03:34 36.5 C 67 16 104/57 L 97 07/07/23 02:48 37.0 C 88 16 123/70 95 07/07/23 02:18 36.8 C 83 14 126/68 95 07/07/23 01:18 37.1 C 80 14 119/57 L 94 07/07/23 00:48 36.5 C 84 19 117/54 L 92 07/07/23 00:33 37.3 C 76 20 110/74 94 07/07/23 00:29 98 07/07/23 00:18 36.8 C 79 20 117/71 99 07/07/23 00:12 36.8 C 83 19 109/54 L 100 07/06/23 23:00 81 14 127/66 95 07/06/23 22:20 81 07/06/23 22:01 74 18 128/74 97 07/06/23 19:50 07/06/23 19:49 36.6 C 70 20 120/74 95 Pulse Ox O2 Del Method O2 Del Method O2 Flow Rate O2 Flow Rate FiO2 07/07/23 07:04 50 07/07/23 06:13 2 07/07/23 05:37 2 07/07/23 04:46 07/07/23 04:37 2 07/07/23 04:07 07/07/23 03:54 07/07/23 03:52 07/07/23 03:38 Nasal Cannula 2 07/07/23 03:34 2 07/07/23 02:48 2 07/07/23 02:18 5 07/07/23 01:18 2 07/07/23 00:48 2 07/07/23 00:33 2 07/07/23 00:29 Nasal Cannula 4 07/07/23 00:18 07/07/23 00:12 07/06/23 23:00 Nasal Cannula 4 07/06/23 22:20 07/06/23 22:01 Nasal Cannula 4 07/06/23 19:50 95 Nasal Cannula 4 07/06/23 19:49 Nasal Cannula 4 Diagnostic Findings Abdomen/Pelvis CT 07/06/23 16:47 Exam(s): CT ABDOMEN + PELVIS With Contrast IV Amt: 90ml EXAM: CT Abdomen and Pelvis With Intravenous Contrast CLINICAL HISTORY: Reason for exam: suprapubic pain, LLQ pain, sepsis. TECHNIQUE: Axial computed tomography images of the abdomen and pelvis with intravenous contrast. CTDI is 25.81 mGy and DLP is 1427.18 mGy-cm. Automated exposure control was utilized for the study. A dose lowering technique was utilized adhering to the principles of ALARA. CONTRAST: Patient received 90ml of IV contrast COMPARISON: No relevant prior studies available. FINDINGS: Lung bases: Unremarkable. No mass. No consolidation. ABDOMEN: Liver: Unremarkable. No mass. Gallbladder and bile ducts: Unremarkable. No calcified stones. No ductal dilation. Pancreas: Mild edema surrounding the pancreas, concerning for mild acute pancreatitis. Mild wall thickening of the adjacent duodenum. No ductal dilation. Spleen: Which is low attenuation in the posterior spleen, measuring approximately 5.0 x 3.0 cm, consistent with splenic infarct. Adrenals: Unremarkable. No mass. Kidneys and ureters: Unremarkable. No solid mass. No hydronephrosis. Stomach and bowel: Diverticulosis, without acute diverticulitis. No bowel obstruction. No free air. PELVIS: Appendix: No findings to suggest acute appendicitis. Bladder: Decompressed urinary bladder which contains a Torres catheter. Reproductive: Unremarkable as visualized. ABDOMEN and PELVIS: Intraperitoneal space: See above. Bones/joints: Degenerative changes of the spine. No acute fracture. No dislocation. Soft tissues: Mild anasarca. Scarring in the RIGHT inguinal region. Vasculature: Atherosclerotic changes of the aorta. No abdominal aortic aneurysm. Lymph nodes: Unremarkable. No enlarged lymph nodes. IMPRESSION: 1. Mild edema surrounding the pancreas, concerning for mild acute pancreatitis. Mild wall thickening of the adjacent duodenum. 2. Which is low attenuation in the posterior spleen, measuring approximately 5.0 x 3.0 cm, consistent with splenic infarct. 3. Decompressed urinary bladder which contains a Torres catheter. 4. Diverticulosis, without acute diverticulitis. No bowel obstruction. No free air. Electronically signed by: Suresh Boone MD 07/06/23 20:18 PM Resident Activity Tracking Resident Involvement: Resident Care Provided Care Provided: [facility]
[2023-07-07 07:54] LABS: Base Excess ABG 5.4 mEq/L (-9-1.8); HCO3 ABG 29 mmol/L (19-24); Oxygen Saturation ABG 99.2 % (90-95); PCO2 ABG 38 mmHg (35-46); PO2 ABG 107 mmHg (80-95); pH ABG 7.49 (7.35-7.45)
[2023-07-07 07:56] LABS: Allen Test Pos (Pos)
[2023-07-07] MEDS: BUMETANIDE 1 MG TAB PO SCH ×2 (08:16→20:30)
[2023-07-07] MEDS: METOPROLOL SUCC 25MG EXT REL TAB PO SCH ×3 (08:17→20:45)
[2023-07-07] MEDS: PANTOprazole 40 MG TAB PO SCH (08:20)
[2023-07-07] MEDS: POTASSIUM CHLORIDE CRTAB 20 MEQ TABCR PO SCH ×2 (08:20→20:28)
[2023-07-07 08:21] LABS: Mean Corpuscular Hemoglobin 26.1 pg (25.0-34.0); Platelet Count 118 K/uL (130-400); RDW Coefficient of Variation 18.6 % (11.5-14.5); RDW Standard Deviation 53.8 fL (36.4-46.3); Red Blood Count 3.41 M/uL (4.20-5.40); White Blood Count 10.36 K/ul (4.8-10.8)
[2023-07-07 08:22] LABS: Albumin Level 3.3 gm/dl (3.4-5.0); BUN Creatinine Ratio 13.3 (10-20); Basophils # (auto) 0.03 K/uL (0.00-0.20); Basophils % (auto) 0.3 %; Bilirubin,Total 2.1 mg/dl (0.2-1.0); Calcium 7.8 mg/dl (8.6-10.3); Creatinine Clr Calc Pharmacy 78.8 ml/min; Eosinophils # (auto) 0.05 K/uL (0.00-0.50); Eosinophils % (auto) 0.5 %; Globulin 3.2 gm/dl (2.5-4.0); Immature Granulocytes # (auto) 0.04 K/uL (0.01-0.20); Immature Granulocytes % (auto) 0.4 %; Lymphocytes # (auto) 0.45 K/uL (1.20-3.40); Lymphocytes % (auto) 4.3 %; Mean Corpuscular Hgb Conc 32.1 g/dL (32.0-36.0); Mean Corpuscular Volume 80.9 fL (80.0-100.0); Monocytes # (auto) 0.54 K/uL (0.11-0.59); Monocytes % (auto) 5.2 %; Neutrophils # (auto) 9.25 K/uL (1.40-6.50); Neutrophils % (auto) 89.3 %; Potassium 3.3 mmol/L (3.5-5.1); Total Protein 6.5 gm/dl (6.0-8.3)
[2023-07-07] MEDS: oxyCODONE HCL IR 5 MG TAB (IMMEDIATE RELEASE) PO PRN ×2 (08:24→20:27)
[2023-07-07 08:25] LABS: Troponin I High Sensitivity 9.8 pg/ml (0-14)
[2023-07-07 08:38] LABS: Polychromasia 1+
[2023-07-07] MEDS: SODIUM CHLORIDE 1 GM TABLET PO SCH (08:49)
[2023-07-07] MEDS ORDERED: ASPIRIN 81 MG ECTAB PO SCH (09:00)
--- NOTE | 2023-07-07 18:46 | Consultation ---
Date of Consultation July 07, 2023 Assessment & Plan (1) Iron deficiency anemia: Low ferritin and percent iorn saturation with anemia certainly indicates a major iron deficit. By the Ganzoni equation she has a specific red cell iron deficit of approximately 750 mg and further with depleted iron stores her storage iron deficit is probably close to 500 mg. Intravenous iron would certainly be helpful and hopefully forestall the need for transfusion We note the B12 and folic acid levels have been historically in good range Bilirubin is slightly elevated always raising the possibility for an element of hemolysis and certainly with her cardiac valvular issues there could be some shear hemolysis across the valve. Her good response to transfusion, however, suggests that this is not a major element. We will check a reticulocyte count and haptoglobin to better assess We do incidentally note the modest thrombocytopenia. Her spleen is not enlarged but in the context of what may be early cirrhotic changes in early portal hypertension, there could be some element of splenic sequestration suggested by that. Major issue will be establishing the source for the iron losses. She has had a number of EGDs recently which do so well evidence of gastritis would have never identified a major bleeding source. She has not had a colonoscopy since 2012 though she does not describe classic melena or hematochezia (2) Leukocytosis: Is only borderline leukocytosis without any other suggestion of a myeloproliferative disorder at this time, almost certainly reactive (3) Splenic infarct: Apparent large splenic infarct though unifocal, without obvious renal or other signs of embolic phenomena in other visualized organs in the abdomen, without any INVENTORY PLANNER symptoms to suggest transient ischemic attacks or strokes. With regards to etiology, splenic infarct can be seen in cases of splenomegaly, hypercoagulability, abnormal cardiac anatomy predisposing to cardiac emboli, and in a patient with sickle cell disease though obviously that is not relevant her e. She would be at significant risk for cardiac source emboli with her very large left atrium, atrial fibrillation, and abnormal mitral valve. It would certainly be worth repeating her echocardiogram, optimal assessment would be with a transesophageal study though practically a TTE may be an easier for step. If possible, would screen for PFO given that she has had a history of DVT and paradoxical embolism would be further on the differential. With regards to possible hypercoagulability, she does have a previous history of DVT but with peripheral vascular disease, multiple surgeries and amputation she probably has many situational factors for that and there does not seem to be a dramatic family history to suggest a high likelihood of germline hypercoagulable risk. The chronic inflammation associated with her pancreatitis, her relative immobility, continued smoking, and body habitus are potential contributing factors to increase clotting risk. Of potential relevance in making treatment decisions, while she does not have splenomegaly as a cause of local vascular issues leading to infarct, her ongoing smoking and peripheral vascular disease combined with regional significant inflammation related to her pancreatitis could produce local changes in her splenic vasculature possibly predisposing to in situ thrombosis. This particular part of the differential might be important to the extent in situ thrombosis would suggest a lesser risk for other organs especially the brain and might modulate the intensity with which we approach altered anticoagulation options She has a modest leukocytosis but emelyn thrombocytopenia and anemia and there does not seem to be any suggestion of a myeloproliferative disorder or other inherent cellular hematologic abnormality that would put her at increased risk for clots She does has a combination of cardiac factors and nonmalignant related hypercoagulability that make her more prone to thrombosis. Question is, however, one of the practical alternative options for treatment for someone whose infarct occurred while on rivaroxaban plus aspirin. Alternative options might include: 1. A switch to apixaban. Rivaroxaban can be associated with some issues of variable absorption because of its reliance on optimal meal simultaneous with dosing. In general a switch from one DOAC to another is not a highly effective strategy if clot results from "failure" of the first 2. A switch to warfarin (probably with transitional bridging heparin or enoxaparin) which allows more titratable dosing but at the expense of significant variability in functionality and much more logistical challenge for the patient. She was on warfarin historically and did not do well with that because of those challenges 3. Rather than purely as a bridge to coumadinization, more prolonged subcutaneous enoxaparin can certainly be a consideration again was titratable and measurable dosing and is the more common option employed at least for the intermediate term in patients who have "failed" DOAC. Here would be the issues of self administration of the agent and local injection site toxicities 4. Very short-term could consider intravenous heparin but this is obviously not practical for more intermediate term anticoagulation and subcutaneous heparin does not offer any particular advantages over enoxaparin so long as renal function is stable To treat "by the book" would particularly focus on options 2 and 3 but with potential downsides as noted. Could consider short-term heparinization as additional work-up is pursued particularly determining if there is a high risk intracardiac source for clot where aggressive anticoagulation alternatives would definitely be in order. While we could never prove in situ versus distant origins thrombosis as the etiology of the splenic infarct here, if the heart does not seem to be a current source of emboli and no other organs are being affected, in shared decision making with the patient could consider simply continuing on her current rivaroxaban/warfarin or perhaps with a modest switch to apixaban/warfarin watching closely for additional events. She would have to be aware that there would be with that strategy some risk for significant additional clotting events in the spleen or elsewhere Whatever choices are made, counterpoint concern is the iron deficiency anemia with suggestions of long-term GI losses even more complex in the setting of possible early cirrhosis Plan 1. Would definitely assess with echocardiography either transesophageal if that is practical or at least with TTE for current status of her left atrium, mitral valve, any intracardiac clot, and a possible assess for PFO 2. Might consider short-term heparinization as you do so 3. Depending on the extent to which the cardiac evaluation suggest possible origin of clot there and that multiple organs are at risk, may need to consider the alternatives as outlined above versus if there does not seem to be a major new change in intracardiac source, would have the option of continuing with a DOAC/warfarin source (perhaps switching to apixaban) in shared decision maker patient simplifying and minimizing toxicity of her regimen ongoing but not necessarily impacting on ongoing risk for additional embolic events 4. Simultaneous with this have to consider whether GI work-up is worthwhile in finding the origins of her iron deficiency. Ideally should replace 1200+ milligrams of IV iron, could start with 300 mg Venofer doses repeating every 4 to 5 days (will likely have to continue as an outpatient. The combination of aspirin and an anticoagulant will continue to put her at risk for significant future GI bleeds History of Present Illness Reason for Consultation: Splenic lesion suggestive of infarct, seeking advice on optimal diagnosis and management Attending Physician: Julian Astudillo DO History of Present Illness Patient with a complicated medical history that includes "cirrhotic pancreatitis" and significant cardiac issues with (per 2021 TTE) particularly severely enlarged left atrium and severe mitral regurgitation associated with heart failure with preserved ejection fraction and atrial fibrillation status post pacemaker placement, long-term anemia with signs of significant iron deficiency, COPD, and significant peripheral vascular disease status post LLE amputation. She continues to smoke half pack per day has had a heavy alcohol intake history We do note that she has been chronically on combination of aspirin and rivaroxaban She last had a colonoscopy in 2012 which showed only hemorrhoids and no particular concerning lesions. She has had a series of more recent upper endoscopies including on June 04, 2023 with signs of inflammatory changes but no active bleeding seen at that time. She does not describe any hematemesis, melena, or hematochezia She was admitted with shortness of breath exacerbation which seems to have responded to diuresis. She did have some abdominal pain but indicates that this is her chronic pancreatitis like pain without any change in its character from previous Allergies Allergy/AdvReac Type Severity Reaction Status Date / Time adhesive Allergy Severe SEVERE Verified 07/06/23 14:12 SKIN IRRITATION guanfacine Allergy Intermediate BP PROBLEMS Verified 07/06/23 14:12 nifedipine Allergy Intermediate BP PROBLEMS Verified 07/06/23 14:12 acetaminophen AdvReac Severe LIVER Verified 07/06/23 14:12 DAMAGE-DUE TO FAILURE amoxicillin AdvReac Severe LIVER Verified 07/06/23 14:12 FAILURE clavulanic acid AdvReac Severe LIVER Verified 07/06/23 14:12 FAILURE Home Medications Medication Instructions Recorded Confirmed Type atorvastatin 80 mg tablet (Lipitor) 80 mg PO HS 06/06/19 07/06/23 History aspirin 81 mg tablet,delayed 81 mg PO QAM 12/19/19 07/06/23 History release (Tj Low Dose Aspirin) pregabalin 300 mg capsule 300 mg PO BID 10/24/21 07/06/23 History zolpidem 10 mg tablet 10 mg PO HS 10/24/21 07/06/23 History rivaroxaban 20 mg tablet (Xarelto) 20 mg PO HS 06/11/22 07/06/23 History amitriptyline 50 mg tablet 50 mg PO HS 09/11/22 07/06/23 History bumetanide 2 mg tablet 2 mg PO BID #180 tabs 01/11/23 07/06/23 Rx oxycodone 5 mg capsule 10 mg PO TID PRN moderate-severe 04/18/23 07/06/23 Rx pain #20 caps sennosides 8.6 mg-docusate sodium 2 tab PO QAM PRN constipation #60 04/18/23 07/06/23 Rx 50 mg tablet (Senokot-S) tabs metoprolol succinate 25 mg 25 mg PO BID 04/25/23 07/06/23 History tablet,extended release 24 hr pantoprazole 40 mg tablet,delayed 40 mg PO QAM #120 tabs 06/24/23 07/06/23 Rx release (Protonix) potassium chloride 20 mEq 20 meq PO BID 06/24/23 07/06/23 History tablet,extended release sodium chloride 1 gram tablet 1,000 mg PO BID 06/24/23 History Patient History Medical History (HFpEF) heart failure with preserved ejection fraction Anxiety and depression AV block Chronic atrial fibrillation Chronic pain syndrome TRISTAN (dyspnea on exertion) DVT (deep venous thrombosis) Dyslipidemia GERD (gastroesophageal reflux disease) History of COVID-19 HTN (hypertension) Hx of gastric ulcer Hx of migraines Hx of pancreatitis Hyponatremia Metabolic alkalosis Neuropathy Pacemaker Pancreas cyst Paroxysmal atrial fibrillation PVD (peripheral vascular disease) Severe mitral regurgitation Tobacco use disorder Surgical History H/O vascular surgery History of amputation History of appendectomy History of cardiac cath (~04/24/21) History of colonoscopy History of esophagogastroduodenoscopy (EGD) History of surgery (~07/30/21) History of tooth extraction Hx of oral surgery (09/17/22) Hx of vascular surgery S/P angiogram of extremity S/P femoral-popliteal bypass surgery Status post below knee amputation of left lower extremity Status post ORIF of fracture of ankle Family History Unknown No problems noted. Father Family history of diabetes mellitus Other No family history of adverse response to anesthesia Social History Smoking Status: Current every day smoker Tobacco Type: Cigarettes Cigarettes Per Day: 1/2 ppd; Second Hand Exposure: No; Do You Dip or Chew Tobacco: No; Hx Alcohol Use: Yes Alcohol type: beer Hx Substance Use: No Preferred Language: Swedish Communication Ability: Effective Visual Impairment: No Limitations Skiver Counter Required: No Beliefs That Will Affect Care: None marital status: Current Living Situation: Spouse current occupation: Retired How many Children do You have: 1 Feels Safe at Home: Yes Assistive Devices: Cane, Prosthesis, Walker and Wheelchair Physical Exam Physical Exam: Patient has a significantly elevated BMI. She is lying in bed alert and appropriate rate nasal cannula does not seem to be in severe respiratory or other distress breath sounds are quite decreased, she has some mild wheezing but no stridor or gross rales or rubs Cardiac rhythm seems irregular with a systolic ejection murmur though without a hyperdynamic precordium. The abdomen is distended. There is some mild epigastric tenderness but no rig idity or guarding and no clearly definable mass. Status post left leg amputation Results & Data Vital Signs (Past 12 Hours) Vital Signs Temp Pulse Pulse Resp BP Pulse Ox O2 Del Method 07/07/23 16:14 79 07/07/23 15:20 36.3 C L 72 20 99/64 L 98 Nasal Cannula 07/07/23 15:03 Nasal Cannula 07/07/23 14:18 67 18 117/68 100 Room Air 07/07/23 08:20 72 17 105/55 L 95 Room Air 07/07/23 07:04 O2 Flow Rate FiO2 07/07/23 16:14 07/07/23 15:20 2 07/07/23 15:03 2 07/07/23 14:18 07/07/23 08:20 2 07/07/23 07:04 50 Laboratory Results Laboratory Results - last 24 hr 07/06/23 07/06/23 07/06/23 15:49 20:00 20:06 WBC RBC Hgb 7.0 L Hct 22.3 L MCV MCH MCHC RDW Std Deviation RDW Coeff of Marlon Plt Count Immature Gran % (Auto) Neut % (Auto) Lymph % (Auto) [place] % (Auto) Eos % (Auto) Baso % (Auto) Neut # (Auto) Lymph # (Auto) [place] # (Auto) Eos # (Auto) Baso # (Auto) Immature Gran # (Auto) Polychromasia ABG pH ABG pCO2 ABG pO2 ABG HCO3 ABG O2 Saturation ABG Base Excess Aki Test Oxygen Given Sodium Potassium Chloride Carbon Dioxide Anion Gap BUN Creatinine Est Cr Clr Drug Dosing Est GFR ( Amer) Est GFR (Non-Af Amer) BUN/Creatinine Ratio Glucose Lactate Calcium Total Bilirubin AST ALT Alkaline Phosphatase Troponin I High Sens Total Protein Albumin Globulin Albumin/Globulin Ratio Urine Opiates Screen Neg Ur Methadone, Qual Neg Urine Barbiturates Neg Ur Phencyclidine (PCP) Neg U Amphetamin/Meth Scrn Neg MDMA (Ecstasy) Screen Neg U Benzodiazepines Scrn Neg Ur Cocaine Metabolite Neg U Marijuana (THC) Screen Neg Blood Type O Positive Antibody Screen NEGATIVE Crossmatch See Detail 07/06/23 07/06/23 07/07/23 20:06 20:06 07:47 WBC RBC Hgb Hct MCV MCH MCHC RDW Std Deviation RDW Coeff of Marlon Plt Count Immature Gran % (Auto) Neut % (Auto) Lymph % (Auto) [place] % (Auto) Eos % (Auto) Baso % (Auto) Neut # (Auto) Lymph # (Auto) [place] # (Auto) Eos # (Auto) Baso # (Auto) Immature Gran # (Auto) Polychromasia ABG pH 7.51 H* ABG pCO2 38 ABG pO2 123 H ABG HCO3 30 H ABG O2 Saturation 98.8 H ABG Base Excess 6.9 H Aki Test Pos Oxygen Given 40% Sodium 132 L Potassium 3.3 L Chloride 96 L Carbon Dioxide 29 Anion Gap 7 BUN 11 Creatinine 0.83 Est Cr Clr Drug Dosing 78.8 Est GFR ( Amer) 87.0 Est GFR (Non-Af Amer) 75.0 BUN/Creatinine Ratio 13.3 Glucose 118 H Lactate 2.1 H* Calcium 7.8 L Total Bilirubin 2.1 H AST 24 ALT 8 Alkaline Phosphatase 132 H Troponin I High Sens 9.8 Total Protein 6.5 Albumin 3.3 L Globulin 3.2 Albumin/Globulin Ratio 1.0 Urine Opiates Screen Ur Methadone, Qual Urine Barbiturates Ur Phencyclidine (PCP) U Amphetamin/Meth Scrn MDMA (Ecstasy) Screen U Benzodiazepines Scrn Ur Cocaine Metabolite U Marijuana (THC) Screen Blood Type Antibody Screen Crossmatch 07/07/23 07/07/23 07/07/23 07:47 07:47 07:47 WBC 10.36 RBC 3.41 L Hgb 9.0 L Hct 28.0 L MCV 80.9 MCH 26.1 MCHC 32.1 RDW Std Deviation 53.8 H RDW Coeff of Marlon 18.6 H Plt Count 118 L Immature Gran % (Auto) 0.4 Neut % (Auto) 89.3 Lymph % (Auto) 4.3 [place] % (Auto) 5.2 Eos % (Auto) 0.5 Baso % (Auto) 0.3 Neut # (Auto) 9.25 H Lymph # (Auto) 0.45 L [place] # (Auto) 0.54 Eos # (Auto) 0.05 Baso # (Auto) 0.03 Immature Gran # (Auto) 0.04 Polychromasia 1+ ABG pH 7.49 H ABG pCO2 38 ABG pO2 107 H ABG HCO3 29 H ABG O2 Saturation 99.2 H ABG Base Excess 5.4 H Aki Test Pos Oxygen Given 3L Sodium Potassium Chloride Carbon Dioxide Anion Gap BUN Creatinine Est Cr Clr Drug Dosing Est GFR ( Amer) Est GFR (Non-Af Amer) BUN/Creatinine Ratio Glucose Lactate 1.0 Calcium Total Bilirubin AST ALT Alkaline Phosphatase Troponin I High Sens Total Protein Albumin Globulin Albumin/Globulin Ratio Urine Opiates Screen Ur Methadone, Qual Urine Barbiturates Ur Phencyclidine (PCP) U Amphetamin/Meth Scrn MDMA (Ecstasy) Screen U Benzodiazepines Scrn Ur Cocaine Metabolite U Marijuana (THC) Screen Blood Type Antibody Screen Crossmatch Diagnostic Findings Chest X-Ray 07/06/23 10:54 XR chest 1V portable CLINICAL HISTORY: Sepsis. COMPARISON STUDY: Chest CT September 16, 2021 chest radiograph July 31, 2022. FINDINGS: Patient is mildly rotated. Dual lead left subclavian pacer is in place. Cardiomegaly is unchanged. There is no evidence for pulmonary edema. There is no consolidation to suggest pneumonia. The appearance of the chest has not significantly changed. IMPRESSION: No acute cardiopulmonary findings. No significant change in appearance of the chest. ACT 112: Negative or not required by law. Electronically signed by: Diogo Johnson M.D. 07/06/2023 11:42 AM Chest CTA 07/06/23 12:42 CHEST CTA for PULMONARY ARTERIES CT DOSE: HISTORY: Shortness of breath. TECHNIQUE: Multiaxial CT images of the chest were performed following the intravenous administration of contrast to evaluate the pulmonary arteries. 3D/Maximal intensity projection images were also obtained. Sagittal and coronal reformations were also reviewed. A dose lowering technique was utilized adhering to the principles of ALARA. COMPARISON STUDY: Chest CTA 09/16/2021. FINDINGS: A left-sided pacemaker is again noted. Normal caliber thoracic aorta with no evidence for a dissection. No filling defects within the pulmonary arteries to suggest a pulmonary embolus. Limited views of the upper abdomen demonstrate a normal liver and spleen. Left adrenal gland thickening is again noted. Normal esophagus. The heart is mildly enlarged. No pleural or pericardial effusions. Calcified right hilar lymph nodes and a calcified granuloma within the right upper lobe. No mediastinal or hilar lymphadenopathy. No suspicious lytic or blastic osseous lesions. The central airways are patent. No pneumothorax. A stable 4 mm nodule within the left lung apex on image 189. This is likely benign. Additional small patchy densities are seen within the left lung apex. Stable 4 mm nodule within the left upper lobe on image 170. There is mild interlobular septal thickening suggestive of mild pulmonary edema. Patchy and linear densities within the left lung base are nonspecific. This favors atelectasis. A low-grade pneumonitis is not excluded. IMPRESSION: 1. No evidence for a pulmonary embolus. 2. Mild cardiomegaly. 3. Mild interlobular septal thickening. This suggests mild interstitial pulmonary edema. 4. Small patchy densities within the left lung apex with additional patchy/linear densities at the left lung base. This is nonspecific and could be due to atelectasis, a component of the pulmonary edema, or a superimposed low- grade pneumonitis. 5. Additional findings as described above. ACT 112: Negative or not required by law. Electronically signed by: Manan Colmenares M.D. 07/06/2023 3:15 PM Abdomen/Pelvis CT 07/06/23 16:47 Exam(s): CT ABDOMEN + PELVIS With Contrast IV Amt: 90ml EXAM: CT Abdomen and Pelvis With Intravenous Contrast CLINICAL HISTORY: Reason for exam: suprapubic pain, LLQ pain, sepsis. TECHNIQUE: Axial computed tomography images of the abdomen and pelvis with intravenous contrast. CTDI is 25.81 mGy and DLP is 1427.18 mGy-cm. Automated exposure control was utilized for the study. A dose lowering technique was utilized adhering to the principles of ALARA. CONTRAST: Patient received 90ml of IV contrast COMPARISON: No relevant prior studies available. FINDINGS: Lung bases: Unremarkable. No mass. No consolidation. ABDOMEN: Liver: Unremarkable. No mass. Gallbladder and bile ducts: Unremarkable. No calcified stones. No ductal dilation. Pancreas: Mild edema surrounding the pancreas, concerning for mild acute pancreatitis. Mild wall thickening of the adjacent duodenum. No ductal dilation. Spleen: Which is low attenuation in the posterior spleen, measuring approximately 5.0 x 3.0 cm, consistent with splenic infarct. Adrenals: Unremarkable. No mass. Kidneys and ureters: Unremarkable. No solid mass. No hydronephrosis. Stomach and bowel: Diverticulosis, without acute diverticulitis. No bowel obstruction. No free air. PELVIS: Appendix: No findings to suggest acute appendicitis. Bladder: Decompressed urinary bladder which contains a Torres catheter. Reproductive: Unremarkable as visualized. ABDOMEN and PELVIS: Intraperitoneal space: See above. Bones/joints: Degenerative changes of the spine. No acute fracture. No dislocation. Soft tissues: Mild anasarca. Scarring in the RIGHT inguinal region. Vasculature: Atherosclerotic changes of the aorta. No abdominal aortic aneurysm. Lymph nodes: Unremarkable. No enlarged lymph nodes. IMPRESSION: 1. Mild edema surrounding the pancreas, concerning for mild acute pancreatitis. Mild wall thickening of the adjacent duodenum. 2. Which is low attenuation in the posterior spleen, measuring approximately 5.0 x 3.0 cm, consistent with splenic infarct. 3. Decompressed urinary bladder which contains a Torres catheter. 4. Diverticulosis, without acute diverticulitis. No bowel obstruction. No free air. Electronically signed by: Suresh Boone MD 07/06/23 20:18 PM PG Care Time/CCT Total # of Minutes Spent Total Time Spent with Patient: Total time spent is greater than 50% in coordination of care (as documented) at patient's floor/unit and/or counseling patient: Coding Level of Care Code 54868 IN/OBS CONSULT LVL 4,60M History Expanded Problem Focused Exam Expanded Problem Focused Medical Decision Making High Complexity Diagnoses Iron deficiency anemia D50.9 Leukocytosis D72.829 Splenic infarct D73.5
--- NOTE | 2023-07-07 19:01 | Billing Data ---
Date of Service July 07, 2023 Coding Level of Care Code 82667 SUB INP/OBS CARE MIN
[2023-07-07] MEDS: ATORVASTATIN 40 MG TAB PO SCH (20:29)
[2023-07-08 07:05] LABS: Basophils # (auto) 0.04 K/uL (0.00-0.20); Basophils % (auto) 0.4 %; Eosinophils # (auto) 0.25 K/uL (0.00-0.50); Eosinophils % (auto) 2.4 %; Hemoglobin 9.1 g/dl (12.0-16.0); Immature Granulocytes # (auto) 0.07 K/uL (0.01-0.20); Immature Granulocytes % (auto) 0.7 %; Lymphocytes # (auto) 1.22 K/uL (1.20-3.40); Lymphocytes % (auto) 11.6 %; Mean Corpuscular Hemoglobin 25.6 pg (25.0-34.0); Mean Corpuscular Hgb Conc 31.4 g/dL (32.0-36.0); Mean Corpuscular Volume 81.7 fL (80.0-100.0); Mean Platelet Volume 11.6 fL (9.4-12.4); Monocytes # (auto) 0.97 K/uL (0.11-0.59); Monocytes % (auto) 9.3 %; Neutrophils # (auto) 7.93 K/uL (1.40-6.50); Neutrophils % (auto) 75.6 %; Platelet Count 107 K/uL (130-400); RDW Coefficient of Variation 18.9 % (11.5-14.5); Red Blood Count 3.55 M/uL (4.20-5.40); White Blood Count 10.48 K/ul (4.8-10.8)
--- NOTE | 2023-07-08 07:10 | Hospitalist Progress Note ---
Date of Service July 08, 2023 Assessment & Plan (1) Iron deficiency anemia: (2) Acute respiratory failure with hypoxia: (3) Acute respiratory failure with hypoxia and hypercarbia: (4) Shortness of breath: (5) Leukocytosis: (6) Elevated lactic acid level: Plan Anisha Garcia is a 63 year-old female who presented to the ER due to sudden onset shortness of breath. Acute respiratory failure with hypoxia Unclear cause of acute worsening shortness of breath- suspect etiology is related to fluid overload as symptoms improving with diuresis quickly. -Removed NC while talking with patient, O2 sat maintained around 88-92%. Currently on 2L NC at 100% oxygen. Continue to wean to aim O2 sats > 90% Could consider obesity hypoventilation / obstructive sleep apnea +/- mucus plugging as possible contributing factors. Continue Bumex 2mg BID. Ordered an additional 2mg dose this afternoon. COPD (chronic obstructive pulmonary disease) Suspected COPD, patient denies this diagnosis but endorses that PFTs were done at her PCPs in the past year. Current smoker. Not on any maintenance inhalers. -Discussed with patient that we will defer to PCP about starting maintenance inhalers -Would recommend repeating pulmonary function tests in the next month Splenic Infarct CT abdomen/pelvis- "low attenuation in the posterior spleen, measuring approximately 5.0 x 3.0 cm, consistent with splenic infarct." -Incidental finding without any left sided abdominal pain Routine hematology consult placed -Echo completed- no significant change from prior echo -Dr. Porter discussed possible options for switching anticoagulants -Patient notes that she has missed some doses of medications in the past, so it is possible that this is not a true "failure" on Xarelto -Discussed options with patient, she would prefer to stay on Xarelto. Could consider repeating ultrasound of spleen in ~1 month. Chronic Pancreatitis Known chronic problem, minimal diffused abdominal pain with palpation No interventions indicated at this time Iron deficiency anemia Slow trend down since September -improved on repeat H&H today EGD relatively unremarkable but she did have mild diffuse inflammation consistent with gastritis and biopsies were taken at that time Reports not having a colonoscopy in years Leukocytosis, Lactic Acid Initially given broad spectrum antibiotics awaiting CT A/P and further workup however no suspected source found and procalcitonin negative. -WBC normal this morning. Discontinued further antibiotics Suspect related to hypoxia rather than hypovolemia given lack of improvement with IV fluids Surprisingly IV fluids also did not make her breathing much worse and is urinating significant amounts (HFpEF) heart failure with preserved ejection fraction Suspect mildly hypervolemic however IV fluids in the ER do not seem to have severely compromised her breathing and her urine output has picked up suggesting her cardiac output may have improved with IV fluids. Continue her usual Bumex 2mg PO BID No urine retention on bladder scan Torres catheter placed on admission for accurate I&Os Hyponatremia ?Diuretic use. Was given NSS in ED. Salt tabs increased to 1g BID per last nephrology note, however given slight concern for hypervolemic status will reduce back to once daily Repeat BMP in a.m. GERD (gastroesophageal reflux disease) Continue pantoprazole 40mg PO daily Smoker Declines nicotine patch - high recommended cessation Chronic atrial fibrillation Held Xarelto initially due to decreased Hgb on admission Continue metoprolol succinate for rate control Chronic pain syndrome Continue chronic oxycodone PVD (peripheral vascular disease) Hold aspirin pending stability in hemoglobin Continue atorvastatin Plan VTE Prophylaxis - Xarelto Diet - Heart healthy, low sodium Disposition - Med surg/tele Admission and Anticipated Discharge Date Admission Date: July 06, 2023 Supervising Physician Co-Signing Physician Notes I personally examined the patient and verified all stearns points of history and exam, discussed case, and agree with decision making with Dr Jacobsen feeling better breathing better. discussed sodium She loosely notes that she watches it, but really has no context for what it means or how much is too much, it does sound like she cooks a very low sodium. Notes that as far as medications go she puts her pills in a pill counter at the beginning of each week, checks to make sure she is taking things, generally is adherent, although occasionally will miss a dose but not that often.. Vitals noted, in general she is awake and alert pleasant no distress. HEENT normocephalic atraumatic mucous membranes moist. Breathing unlabored no accessory muscle use good effort. I have her off of oxygen for the roughly half hour room in the room, and at the end she is 9192 on room air. Hypoxia/dyspneaafter further review probably predominantly pulmonary edema/acute on chronic HFpEFimproving with diuresis. Continue to wean oxygen. Educated on sodium restriction Splenic infarctuncertain etiology, . Echo reassuring, but obviously not a RADHA. Agree with hematology's conundrum on switching blood thinnersin a shared decision making with patient, she would prefer to stay on Xarelto and have follow-up of her spleen as an outpatient in a few weeks, making a change if it seems like there are ongoing problems. We also discussed the possible viability of Pradaxa as a different DOAC given that it has a discretely different mechanism than the usual 10 A inhibitors. Possible COPDwe discussed that she appears to have findings consistent with COPD, she notes that she had spirometry done in the office sometime in the last year or so, we discussed that that would be useful because if she does not fact have COPD, she would likely breathe better with maintenance inhalers as wellthis will be an open issue for PCP follow-up. Pancreatitis finding on CThas prior pancreatic pathology, no abdominal painI wonder if it is a little bit of a drip down from her CHF, versus chronic type findings. resuming xarelto Subjective Patient seen and examined at bedside. Overnight, patient was upset regarding her fluid restriction. This afternoon she notes that her breathing is comfortable and has been taking off her nasal cannula intermittently. Review of Systems Review of Systems: As per above Physical Exam Constitutional: + obese; no acute distress Eyes: + anicteric sclerae; no conjunctival abnormality ENMT: Ears: no external ear abnormality Nose: no external nose abnormality Respiratory: able to speak in complete sentences; does not use accessory muscles Few rhonchi. Cardiovascular: Irregularly irregular. Musculoskeletal: Left BKA Skin: no rashes, warm and dry Psychiatric: A+Ox3, euthymic affect Results & Data Results & Data Vital Signs (Past 12 Hours) Vital Signs Temp Pulse Pulse Resp BP Pulse Ox O2 Del Method 07/08/23 03:16 37 C 74 18 110/56 L 93 Nasal Cannula 07/07/23 23:35 37.5 C 80 18 117/70 92 Nasal Cannula 07/07/23 20:45 Nasal Cannula 07/07/23 23:54 83 07/07/23 21:59 36.7 C 82 18 107/72 97 Nasal Cannula 07/07/23 19:46 38.1 C H 69 20 95/69 L 98 Nasal Cannula O2 Flow Rate 07/08/23 03:16 4 07/07/23 23:35 4 07/07/23 20:45 4 07/07/23 23:54 07/07/23 21:59 4 07/07/23 19:46 2 Resident Activity Tracking Resident Involvement: Resident Care Provided Care Provided: Adult [facility]
[2023-07-08 07:23] LABS: Albumin Level 3.3 gm/dl (3.4-5.0); BUN Creatinine Ratio 15.3 (10-20); Bilirubin,Total 2.3 mg/dl (0.2-1.0); Calcium 8.7 mg/dl (8.6-10.3); Creatinine Clr Calc Pharmacy 63.2 ml/min; Est GFR (African American) 71.2 ml/min; Est GFR (Non-African American) 61.4 ml/min; Globulin 3.2 gm/dl (2.5-4.0); Potassium 3.5 mmol/L (3.5-5.1); Total Protein 6.5 gm/dl (6.0-8.3)
[2023-07-08] MEDS: oxyCODONE HCL IR 5 MG TAB (IMMEDIATE RELEASE) PO PRN ×3 (07:26→21:08)
[2023-07-08] MEDS: POTASSIUM CHLORIDE CRTAB 20 MEQ TABCR PO SCH ×2 (09:02→21:08)
[2023-07-08] MEDS: PREGABALIN 150 MG CAP PO SCH ×2 (09:02→21:08)
[2023-07-08] MEDS: SODIUM CHLORIDE 1 GM TABLET PO SCH (09:03)
[2023-07-08] MEDS: PANTOprazole 40 MG TAB PO SCH (09:03)
[2023-07-08] MEDS: BUMETANIDE 1 MG TAB PO SCH ×2 (09:04→17:16)
[2023-07-08] MEDS: METOPROLOL SUCC 25MG EXT REL TAB PO SCH ×2 (09:04→20:59)
--- NOTE | 2023-07-08 11:58 | XCELERA ---
[id number] [id number]
[2023-07-08] MEDS ORDERED: BUMETANIDE 1 MG TAB PO ONE (14:10)
--- NOTE | 2023-07-08 17:45 | Billing Data ---
Date of Service July 08, 2023 Coding Level of Care Code 91358 SUB INP/OBS CARE MIN
[2023-07-08] MEDS: ATORVASTATIN 40 MG TAB PO SCH (21:00)
[2023-07-08] MEDS ORDERED: RIVAROXABAN 10 MG TABLET PO SCH (21:00)
[2023-07-08] MEDS: RIVAROXABAN 20 MG TAB PO SCH (21:01)
[2023-07-09 06:50] LABS: Basophils # (auto) 0.06 K/uL (0.00-0.20); Basophils % (auto) 0.4 %; Eosinophils # (auto) 0.19 K/uL (0.00-0.50); Eosinophils % (auto) 1.4 %; Hematocrit (blood only) 29.7 % (37.0-47.0); Hemoglobin 9.4 g/dl (12.0-16.0); Immature Granulocytes # (auto) 0.07 K/uL (0.01-0.20); Immature Granulocytes % (auto) 0.5 %; Lymphocytes # (auto) 1.12 K/uL (1.20-3.40); Lymphocytes % (auto) 8.4 %; Mean Corpuscular Hgb Conc 31.6 g/dL (32.0-36.0); Mean Corpuscular Volume 82.3 fL (80.0-100.0); Mean Platelet Volume 12.3 fL (9.4-12.4); Monocytes # (auto) 1.27 K/uL (0.11-0.59); Monocytes % (auto) 9.5 %; Neutrophils # (auto) 10.68 K/uL (1.40-6.50); Neutrophils % (auto) 79.8 %; Platelet Count 116 K/uL (130-400); RDW Coefficient of Variation 19.5 % (11.5-14.5); RDW Standard Deviation 58.2 fL (36.4-46.3); Red Blood Count 3.61 M/uL (4.20-5.40); White Blood Count 13.39 K/ul (4.8-10.8)
[2023-07-09 07:23] LABS: Albumin Level 3.4 gm/dl (3.4-5.0); Bilirubin,Total 2.2 mg/dl (0.2-1.0); Potassium 3.7 mmol/L (3.5-5.1)
[2023-07-09 07:29] LABS: Creatinine Clr Calc Pharmacy 55.2 ml/min; Est GFR (African American) 60.5 ml/min; Est GFR (Non-African American) 52.2 ml/min; Globulin 3.4 gm/dl (2.5-4.0); Total Protein 6.8 gm/dl (6.0-8.3)
[2023-07-09] MEDS ORDERED: IRON SUCROSE 200 MG in 0.9 % SODIUM CHLORIDE 100 ML IV ONE (08:34)
[2023-07-09] MEDS: oxyCODONE HCL IR 5 MG TAB (IMMEDIATE RELEASE) PO PRN ×2 (08:43→21:17)
[2023-07-09] MEDS: PREGABALIN 150 MG CAP PO SCH ×2 (08:43→21:16)
[2023-07-09] MEDS: BUMETANIDE 1 MG TAB PO SCH ×2 (08:44→18:08)
[2023-07-09] MEDS: METOPROLOL SUCC 25MG EXT REL TAB PO SCH ×2 (08:44→21:18)
[2023-07-09] MEDS: POTASSIUM CHLORIDE CRTAB 20 MEQ TABCR PO SCH ×2 (08:45→21:16)
[2023-07-09] MEDS: SODIUM CHLORIDE 1 GM TABLET PO SCH (08:45)
[2023-07-09] MEDS: PANTOprazole 40 MG TAB PO SCH (08:45)
--- NOTE | 2023-07-09 14:46 | Hospitalist Progress Note ---
Date of Service July 09, 2023 Assessment & Plan (1) Iron deficiency anemia: (2) Acute respiratory failure with hypoxia: (3) Acute respiratory failure with hypoxia and hypercarbia: (4) Shortness of breath: (5) Leukocytosis: (6) Elevated lactic acid level: Plan Anisha Garcia is a 63 year-old female who presented to the ER due to sudden onset shortness of breath. Acute respiratory failure with hypoxia Unclear cause of acute worsening shortness of breath- suspect etiology is related to fluid overload as symptoms improving with diuresis quickly. -Has largely been on room air today, but considering episode of dyspnea this morning and persistent rales, will monitor for additional night and reevaluate Could consider obesity hypoventilation / obstructive sleep apnea +/- mucus plugging as possible contributing factors. Continue Bumex 2mg BID. Ordered an additional 2mg dose this afternoon and yesterday p.m. COPD (chronic obstructive pulmonary disease) Suspected COPD, patient denies this diagnosis but endorses that PFTs were done at her PCPs in the past year. Current smoker. Not on any maintenance inhalers. -Discussed with patient that we will defer to PCP about starting maintenance inhalers -Would recommend repeating pulmonary function tests in the next month Splenic Infarct CT abdomen/pelvis- "low attenuation in the posterior spleen, measuring approximately 5.0 x 3.0 cm, consistent with splenic infarct." -Incidental finding without any left sided abdominal pain Routine hematology consult placed -Echo completed- no significant change from prior echo -Dr. Porter discussed possible options for switching anticoagulants -Patient notes that she has missed some doses of medications in the past, so it is possible that this is not a true "failure" on Xarelto -Discussed options with patient, she would prefer to stay on Xarelto. Could consider repeating ultrasound of spleen in ~1 month. Chronic Pancreatitis Known chronic problem, minimal diffused abdominal pain with palpation No interventions indicated at this time Iron deficiency anemia Slow trend down since September -improved on repeat H&H today EGD relatively unremarkable but she did have mild diffuse inflammation consistent with gastritis and biopsies were taken at that time Reports not having a colonoscopy in years -Venofer ordered Leukocytosis, Lactic Acid Initially given broad spectrum antibiotics awaiting CT A/P and further workup however no suspected source found and procalcitonin negative. -WBC normal the following morning. Discontinued further antibiotics Suspect related to hypoxia rather than hypovolemia given lack of improvement with IV fluids Surprisingly IV fluids also did not make her breathing much worse and is urinating significant amounts (HFpEF) heart failure with preserved ejection fraction Suspect mildly hypervolemic however IV fluids in the ER do not seem to have severely compromised her breathing and her urine output has picked up suggesting her cardiac output may have improved with IV fluids. Continue her usual Bumex 2mg PO BID No urine retention on bladder scan Torres catheter placed on admission for accurate I&Os Hyponatremia ?Diuretic use. Was given NSS in ED. Salt tabs increased to 1g BID per last nephrology note, however given slight co ncern for hypervolemic status will reduce back to once daily Repeat BMP in a.m. GERD (gastroesophageal reflux disease) Continue pantoprazole 40mg PO daily Smoker Declines nicotine patch - high recommended cessation Chronic atrial fibrillation Held Xarelto initially due to decreased Hgb on admission Continue metoprolol succinate for rate control Chronic pain syndrome Continue chronic oxycodone PVD (peripheral vascular disease) Hold aspirin pending stability in hemoglobin Continue atorvastatin Constipation Added Miralax TID as patient has not had a bowel movement in several days. Plan VTE Prophylaxis - Xarelto Diet - Heart healthy, low sodium Disposition - Med surg/tele Admission and Anticipated Discharge Date Admission Date: July 06, 2023 Supervising Physician Co-Signing Physician Notes I personally examined the patient and verified all stearns points of history and exam, discussed case, and agree with decision making with Dr Jacobsen Stow some short of breath earlierdoes not believe she was laying down, happened fairly abruptly, although seem to self resolved. No cough or wheeze at the timea lot of chest tightness and shortness of breath. Vitals noted, in general she is awake and alert pleasant no distress. HEENT normocephalic atraumatic mucous membranes moist. Breathing unlabored no accessory muscle use good effort. She does have dependent Rales Hypoxia/dyspneaafter further review probably predominantly pulmonary edema/acute on chronic HFpEFimproving with diuresis. Continue to wean oxygen. Educated on sodium restriction on 07/08. Still some symptomatic pulmonary edemaadditional Bumex. Follow. Splenic infarctuncertain etiology, . Echo reassuring, but obviously not a RADHA. Agree with hematology's conundrum on switching blood thinnersin a shared decision making with patient, she would prefer to stay on Xarelto and have follow-up of her spleen as an outpatient in a few weeks, making a change if it seems like there are ongoing problems. We also discussed the possible viability of Pradaxa as a different DOAC given that it has a discretely different mechanism than the usual 10 A inhibitors. No changes in this respect today Possible COPDwe discussed that she appears to have findings consistent with COPD, she notes that she had spirometry done in the office sometime in the last year or so, we discussed that that would be useful because if she does not fact have COPD, she would likely breathe better with maintenance inhalers as wellthis will be an open issue for PCP follow-up. Pancreatitis finding on CThas prior pancreatic pathology, no abdominal painI wonder if it is a little bit of a drip down from her CHF, versus chronic type findings. On Xarelto Home once breathing better Probably want to consider outpatient stress testing given overall milieu, but right now manage decompensated CHF Subjective Patient seen and examined at bedside. Notes that she had an episode this morning where she had trouble breathing- this lasted for about a minute and resolved quickly. She is worried about going home and having more episodes like this. Denies chest pain, fever, body aches, or chills. Per nursing, this afternoon patient has been possibly hallucinating about a dog in her room. Review of Systems Review of Systems: As per above Physical Exam Constitutional: + obese; no acute distress Eyes: + anicteric sclerae; no conjunctival abnormality ENMT: Ears: no external ear abnormality Nose: no external nose abnormality Respiratory: able to speak in complete sentences; does not use accessory muscles Auscultation: + rales Cardiovascular: Rate/Rhythm: + irregularly irregular Gastrointestinal (Abdomen): Percussion/Palpation: + abdomen tender and abdomen soft Skin: no rashes, warm and dry Psychiatric: A+Ox3, euthymic affect Results & Data Results & Data Vital Signs (Past 12 Hours) Vital Signs Temp Pulse Pulse Resp BP Pulse Ox O2 Del Method 07/09/23 10:53 37.4 C 79 20 103/70 96 Nasal Cannula 07/09/23 07:58 37.1 C 81 20 126/77 90 Room Air 07/09/23 07:45 72 07/09/23 03:00 36.6 C 85 18 96/61 L 91 Room Air O2 Flow Rate 07/09/23 10:53 2 07/09/23 07:58 07/09/23 07:45 07/09/23 03:00 Resident Activity Tracking Resident Involvement: Resident Care Provided Care Provided: Adult Hospital Medicine
[2023-07-09] MEDS ORDERED: BUMETANIDE 1 MG TAB PO ONE (15:00)
--- NOTE | 2023-07-09 17:51 | Billing Data ---
Date of Service July 09, 2023 Coding Level of Care Code 68698 SUB INP/OBS CARE MIN
[2023-07-09] MEDS: POLYETHYLENE (MIRALAX) 17 GM PACK PO SCH ×2 (18:08→21:17)
[2023-07-09] MEDS: ATORVASTATIN 40 MG TAB PO SCH (21:18)
[2023-07-09] MEDS: RIVAROXABAN 20 MG TAB PO SCH (21:19)
[2023-07-10 07:28] LABS: Albumin Globulin Ratio 0.9 (0.9-2); Albumin Level 3.1 gm/dl (3.4-5.0); Bilirubin,Total 2.5 mg/dl (0.2-1.0); Calcium 8.7 mg/dl (8.6-10.3); Creatinine Clr Calc Pharmacy 66.3 ml/min; Est GFR (African American) 74.8 ml/min; Est GFR (Non-African American) 64.6 ml/min; Globulin 3.3 gm/dl (2.5-4.0); Potassium 3.5 mmol/L (3.5-5.1); Total Protein 6.4 gm/dl (6.0-8.3)
[2023-07-10] MEDS: PREGABALIN 150 MG CAP PO SCH (08:10)
[2023-07-10] MEDS: METOPROLOL SUCC 25MG EXT REL TAB PO SCH (08:11)
[2023-07-10] MEDS: SODIUM CHLORIDE 1 GM TABLET PO SCH (08:11)
[2023-07-10] MEDS: oxyCODONE HCL IR 5 MG TAB (IMMEDIATE RELEASE) PO PRN (08:11)
[2023-07-10] MEDS: PANTOprazole 40 MG TAB PO SCH (08:12)
[2023-07-10] MEDS: BUMETANIDE 1 MG TAB PO SCH (08:12)
[2023-07-10 08:39] LABS: Basophils # (auto) 0.05 K/uL (0.00-0.20); Basophils % (auto) 0.5 %; Eosinophils # (auto) 0.27 K/uL (0.00-0.50); Eosinophils % (auto) 2.5 %; Hematocrit (blood only) 28.5 % (37.0-47.0); Hemoglobin 9.1 g/dl (12.0-16.0); Immature Granulocytes # (auto) 0.07 K/uL (0.01-0.20); Immature Granulocytes % (auto) 0.6 %; Lymphocytes # (auto) 1.29 K/uL (1.20-3.40); Lymphocytes % (auto) 11.9 %; Mean Corpuscular Hgb Conc 31.9 g/dL (32.0-36.0); Mean Corpuscular Volume 81.4 fL (80.0-100.0); Mean Platelet Volume 12.3 fL (9.4-12.4); Monocytes # (auto) 1.23 K/uL (0.11-0.59); Monocytes % (auto) 11.3 %; Neutrophils # (auto) 7.96 K/uL (1.40-6.50); Neutrophils % (auto) 73.2 %; Platelet Count 109 K/uL (130-400); RDW Coefficient of Variation 19.6 % (11.5-14.5); RDW Standard Deviation 57.6 fL (36.4-46.3); White Blood Count 10.87 K/ul (4.8-10.8)
[2023-07-10] MEDS: POLYETHYLENE (MIRALAX) 17 GM PACK PO SCH (09:09)
[2023-07-10] MEDS: POTASSIUM CHLORIDE CRTAB 20 MEQ TABCR PO SCH (09:10)
--- NOTE | 2023-07-10 10:39 | Discharge Summary ---
Date of Service July 10, 2023 Admission HPI Per Admitting Provider Anisha Garcia is a 63 year old female who presents to the ER due to sudden onset shortness of breath. Difficult to get definitive history with her about her deterioration but possibly progressive worse over the last week. She was seen by Dr Murcia on June 23 and the patient reports she was told to take extra Bumex due to her breathing issues although this is not mentioned in the note. She was advised to increase her sodium and potassium after her labs came back. This morning however she reports sudden worsening shortness of breath when she woke up. No chest pain, fever, chills, nasal congestion, sinus pain, sore throat. She called her and was rapidly breathing therefore he called EMS who brought her to the ER - initialy O2 sats 70s on room air. Initial VBG prior to BiPAP with pH 7.3 despite tachypnea. She continues to smoke half a pack of cigarettes every day. No oxygen at baseline. Admission Exam Per Admitting Provider Constitutional: well developed and + acute distress; + not well nourished Eyes: PERRL, conjunctivae normal, anicteric sclerae Respiratory: normal respiratory effort, lungs clear to auscultation Cardiovascular: Rate/Rhythm: regular rate and + irregularly irregular Heart Sounds: + murmur (LEIDY 2/6) Extremities: normal capillary refill and + pedal edema (trace pitting b/l); no calf tenderness Gastrointestinal (Abdomen): Inspection/Auscultation: abdomen normal to inspection; abdomen not distended Percussion/Palpation: + abdomen tender (suprapubic and LLQ pain) and abdomen soft; no guarding and abdomen not rigid Musculoskeletal: no cyanosis or clubbing, extremities motor strength 5/5 Skin: no rashes, warm and dry Neurologic: moves all extremities and awake (to voice); not confused Psychiatric: Orientation: alert, oriented to person and oriented to place; + not oriented to time Genitourinary: no CVA tenderness Principal Diagnosis Acute hypoxic respiratory failure Discharge Exam Constitutional + obese; no acute distress Eyes + anicteric sclerae; no conjunctival abnormality ENMT Ears: no external ear abnormality Nose: no external nose abnormality Respiratory able to speak in complete sentences; does not use accessory muscles Good aeration bilaterally Cardiovascular Rate/Rhythm: + irregularly irregular Gastrointestinal (Abdomen) Percussion/Palpation: + abdomen tender and abdomen soft Musculoskeletal Left BKA Skin no rashes, warm and dry Psychiatric A+Ox3, euthymic affect Discharge Data Allergies Allergy/AdvReac Type Severity Reaction Status Date / Time adhesive Allergy Severe SEVERE Verified 07/06/23 14:12 SKIN IRRITATION guanfacine Allergy Intermediate BP PROBLEMS Verified 07/06/23 14:12 nifedipine Allergy Intermediate BP PROBLEMS Verified 07/06/23 14:12 acetaminophen AdvReac Severe LIVER Verified 07/06/23 14:12 DAMAGE-DUE TO FAILURE amoxicillin AdvReac Severe LIVER Verified 07/06/23 14:12 FAILURE clavulanic acid AdvReac Severe LIVER Verified 07/06/23 14:12 FAILURE Consultations 07/06/23 15:21 ED Decision to Admit Stat 07/07/23 15:37 Consult Hematology Routine Ordered Studies 07/06/23 12:42 CT for pulmonary embolism PE [CT angio chest PE protocol] Stat 07/06/23 16:47 CT Abd and Pelvis [CT abd pelvis IV con only] Stat Chest X-Ray 07/06/23 10:54 XR chest 1V portable CLINICAL HISTORY: Sepsis. COMPARISON STUDY: Chest CT September 16, 2021 chest radiograph July 31, 2022. FINDINGS: Patient is mildly rotated. Dual lead left subclavian pacer is in place. Cardiomegaly is unchanged. There is no evidence for pulmonary edema. There is no consolidation to suggest pneumonia. The appearance of the chest has not significantly changed. IMPRESSION: No acute cardiopulmonary findings. No significant change in appearance of the chest. ACT 112: Negative or not required by law. Electronically signed by: Diogo Johnson M.D. 07/06/2023 11:42 AM Chest CTA 07/06/23 12:42 CHEST CTA for PULMONARY ARTERIES CT DOSE: HISTORY: Shortness of breath. TECHNIQUE: Multiaxial CT images of the chest were performed following the intravenous administration of contrast to evaluate the pulmonary arteries. 3D/Maximal intensity projection images were also obtained. Sagittal and coronal reformations were also reviewed. A dose lowering technique was utilized adhering to the principles of ALARA. COMPARISON STUDY: Chest CTA 09/16/2021. FINDINGS: A left-sided pacemaker is again noted. Normal caliber thoracic aorta with no evidence for a dissection. No filling defects within the pulmonary arteries to suggest a pulmonary embolus. Limited views of the upper abdomen demonstrate a normal liver and spleen. Left adrenal gland thickening is again noted. Normal esophagus. The heart is mildly enlarged. No pleural or pericardial effusions. Calcified right hilar lymph nodes and a calcified granuloma within the right upper lobe. No mediastinal or hilar lymphadenopathy. No suspicious lytic or blastic osseous lesions. The central airways are patent. No pneumothorax. A stable 4 mm nodule within the left lung apex on image 189. This is likely benign. Additional small patchy densities are seen within the left lung apex. Stable 4 mm nodule within the left upper lobe on image 170. There is mild interlobular septal thickening suggestive of mild pulmonary edema. Patchy a nd linear densities within the left lung base are nonspecific. This favors atelectasis. A low-grade pneumonitis is not excluded. IMPRESSION: 1. No evidence for a pulmonary embolus. 2. Mild cardiomegaly. 3. Mild interlobular septal thickening. This suggests mild interstitial pulmonary edema. 4. Small patchy densities within the left lung apex with additional patchy/linear densities at the left lung base. This is nonspecific and could be due to atelectasis, a component of the pulmonary edema, or a superimposed low- grade pneumonitis. 5. Additional findings as described above. ACT 112: Negative or not required by law. Electronically signed by: Manan Colmenares M.D. 07/06/2023 3:15 PM Abdomen/Pelvis CT 07/06/23 16:47 Exam(s): CT ABDOMEN + PELVIS With Contrast IV Amt: 90ml EXAM: CT Abdomen and Pelvis With Intravenous Contrast CLINICAL HISTORY: Reason for exam: suprapubic pain, LLQ pain, sepsis. TECHNIQUE: Axial computed tomography images of the abdomen and pelvis with intravenous contrast. CTDI is 25.81 mGy and DLP is 1427.18 mGy-cm. Automated exposure control was utilized for the study. A dose lowering technique was utilized adhering to the principles of ALARA. CONTRAST: Patient received 90ml of IV contrast COMPARISON: No relevant prior studies available. FINDINGS: Lung bases: Unremarkable. No mass. No consolidation. ABDOMEN: Liver: Unremarkable. No mass. Gallbladder and bile ducts: Unremarkable. No calcified stones. No ductal dilation. Pancreas: Mild edema surrounding the pancreas, concerning for mild acute pancreatitis. Mild wall thickening of the adjacent duodenum. No ductal dilation. Spleen: Which is low attenuation in the posterior spleen, measuring approximately 5.0 x 3.0 cm, consistent with splenic infarct. Adrenals: Unremarkable. No mass. Kidneys and ureters: Unremarkable. No solid mass. No hydronephrosis. Stomach and bowel: Diverticulosis, without acute diverticulitis. No bowel obstruction. No free air. PELVIS: Appendix: No findings to suggest acute appendicitis. Bladder: Decompressed urinary bladder which contains a Torres catheter. Reproductive: Unremarkable as visualized. ABDOMEN and PELVIS: Intraperitoneal space: See above. Bones/joints: Degenerative changes of the spine. No acute fracture. No dislocation. Soft tissues: Mild anasarca. Scarring in the RIGHT inguinal region. Vasculature: Atherosclerotic changes of the aorta. No abdominal aortic aneurysm. Lymph nodes: Unremarkable. No enlarged lymph nodes. IMPRESSION: 1. Mild edema surrounding the pancreas, concerning for mild acute pancreatitis. Mild wall thickening of the adjacent duodenum. 2. Which is low attenuation in the posterior spleen, measuring approximately 5.0 x 3.0 cm, consistent with splenic infarct. 3. Decompressed urinary bladder which contains a Torres catheter. 4. Diverticulosis, without acute diverticulitis. No bowel obstruction. No free air. Electronically signed by: Suresh Boone MD 07/06/23 20:18 PM Hospital Course (1) Iron deficiency anemia: (2) Acute respiratory failure with hypoxia: (3) Acute respiratory failure with hypoxia and hypercarbia: (4) Shortness of breath: (5) Leukocytosis: (6) Elevated lactic acid level: Tona Garcia is a 63 year-old female who presented to the ER due to sudden onset shortness of breath. Acute respiratory failure with hypoxia Unclear cause of acute worsening shortness of breath- suspect etiology is related to fluid overload as symptoms improved with diuresis quickly. Initially required supplemental oxygen, was able to wean down to room air prior to discharge. Could consider obesity hypoventilation / obstructive sleep apnea as contributing factors. Recommend that she is evaluated for possible MARGO. Continue at home dosage of Bumex and monitor fluid/salt intake. COPD (chronic obstructive pulmonary disease) Suspected COPD, patient denies this diagnosis but endorses that PFTs were done at her PCPs in the past year. Current smoker. Not on any maintenance inhalers. Discussed with patient that we recommend repeat PFTs and she may require maintenance inhalers. Would recommend repeating pulmonary function tests in the next month Splenic Infarct CT abdomen/pelvis- "low attenuation in the posterior spleen, measuring approximately 5.0 x 3.0 cm, consistent with splenic infarct." This is an incidental finding without any left sided abdominal pain, echo completed- no significant change from prior echo. Hematology consulted for splenic infarct, Dr. Porter discussed possible options for switching anticoagulants. Patient notes that she has missed some doses of medications in the past, so it is possible that this is not a true "failure" on Xarelto. Discussed options with patient, she would prefer to stay on Xarelto. Ultrasound of spleen ordered to be completed in July, patient to follow up with Dr. Porter as an outpatient. Chronic Pancreatitis Known chronic problem, minimal diffuse abdominal pain with palpation. No interventions indicated at this time Iron deficiency anemia Slow trend down since September -stable hemoglobin during admission without signs of bleed. Received Venofer x1, could consider further Venofer as outpatient, will follow with Dr. Porter as above. EGD relatively unremarkable but she did have mild diffuse inflammation consistent with gastritis and biopsies were taken at that time. Reports not having a colonoscopy in years, would recommend following up/ordering this as an outpatient. Leukocytosis, Lactic Acid Initially given broad spectrum antibiotics awaiting CT A/P and further workup however no suspected source found and procalcitonin negative. WBC normalized and symptoms improved with diuresis, further antibiotics wer ediscontinued. (HFpEF) heart failure with preserved ejection fraction Suspect mildly hypervolemic which contributed to her hypoxia. Recommend close monitoring of fluid and sodium intake. Hyponatremia Chronic hyponatremia. Salt tabs increased to 1g BID per last nephrology note, however given slight concern for hypervolemic status will reduced during admission. Na of 131 at time of discharge. Recommend repeating BMP in the next few weeks to monitor sodium and renal function. GERD (gastroesophageal reflux disease) Continue pantoprazole 40mg PO daily Smoker Declines nicotine patch - high recommended cessation Chronic atrial fibrillation Continue Xarelto, Metoprolol Chronic pain syndrome Continue chronic oxycodone PVD (peripheral vascular disease) Continue atorvastatin and aspirin. Constipation Recommend Miralax daily to help normalize frequency of bowel movements. Total Time Total Time Spent Total Time Spent (In Minutes): .<30 Discharge Plan Discharge Items Patient Disposition: Home - Self-Care Reason For Visit: ACUTE HYPOXIC RESPIRATORY FAILURE Discharge Diagnosis: Acute Hypoxic Respiratory Failure Activity: Per Instructions section Non-emergency contact: Primary Care Provider Call non-emergency contact if: you have any medication questions and your symptoms worsen Follow-up/Referrals: [facility] Radiology [Provider Group] - 08/10/23 11:00 am ([address] [facility] [address] Ultrasound- Spleen 08/10/2023 at 11:00 am.. Please arrive at the main entrance of the hospital 30 minutes prior to appointment time for registration. ) Kat Morataya MD [Primary Care Provider] - (Please schedule hospital discharge follow up appointment within 1-2 weeks) Joshua Porter MD [Physician] - (Office will reach out to schedule) Diet: Heart Healthy and Low Sodium (2gm) Addtl Attending Provider Instructions: Splenic Infarct While you were admitted to the hospital, you had a CT scan of your chest/abdomen and this revealed an abnormal region of your spleen. This can be occur when there was not adequate blood flow to the spleen which can be caused by a blockage or clot. You are currently on a blood thinner medication, Xarelto, which should prevent blood clots- however as we discussed this medication wears off quickly and if you forget to take it, this can increase your risk of blood clots. We consulted the technical spec, Dr. Porter, who evaluated you based on this new finding with your spleen- we discussed options for changing you blood thinner but will continue the Xarelto for now. Dr. Porter's office will reach out to you to schedule a follow up appointment. You also have an ultrasound of your spleen scheduled in 1 month (08/10/23) here at [facility]. Congestive Heart Failure Congestive Heart Failure essentially means your heart is able to have a "traffic jam" of fluid that backs up into your lungs. Fluid in lungs then blocks up breathing space making you feel short of breath. In the hospital, our job is to get the fluid off so that you are able to breathe better, and then get you back on track with medication and lifestyle adjustments to keep the traffic jam from happening again. Salt (Sodium) The vast majority of people admitted to the hospital with fluid back up into the lungs get there because of too much salt in their diet. The way our kidneys work: when you take a small amount of sodium, your kidneys hold onto a small amount of water. When you take a large amount of sodium, your kidneys hold onto a large amount of water. When this happens, your blood vessels get flooded, your heart gets overfilled, and the fluid backs up into your lungs. Most people know to avoid the salt shaker, but sodium is in almost anything prepackaged/prepared, as a preservative or as a flavoring agent. Most of the people we take care of who are here with congestive heart failure caused by too much sodium do not use a salt shaker at all. Get into the habit of looking at food labels, so you can see how much sodium is in the foods you eat. The most important number to look at is how much sodium is in each serving. But also notice the size of a serving. [facility] will frequently make a serving size so tiny that it does not look like there is much sodium per serving, but a normal person might eat 3 or 4 servings of the food and take in a lot more sodium than they realized. Keep a "budget" of how much sodium you take in in each day. Most people stay out of trouble and stay out of the hospital as long as they stay "under budget". The majority of congestive heart failure patients do well if they take less than 2000 mg of sodium a day. Because our kidneys retain water based on how much sodium they are seeing in any given moment, it is also important to stay at less than about 500 mg in any given meal. This is because even if you stayed at less than 2000 mg of sodium, but ate it all at once, your kidneys would retain fluid at a rate as though you are taking in much more sodium than you actually are. Occasionally your doctor may specifically recommend restricting even further (such as less than 1500mg per day) so if you have been told to be even stricter with sodium, please follow that advice. -Following How You Are Doing (Wet Versus Dry) Because managing congestive heart failure is an ongoing process, it is very important to learn how to follow your signs and symptoms and track how you are doing at home. This will allow you to catch problems before they become a big deal. In general, as your health care team, we look at managing congestive heart failure chronically as a balance of being "wet" (flooded with fluid) versus being "dry" (dehydrated from treatment). Wet - signs of fluid retention that would warrant further evaluation: Check your weight daily. If your weight goes up by more than 2 pounds in 1 day, it is almost certainly fluid related. This should warrant further thought, and/or a call to your doctor Follow your breathingmost of the time, early on when fluid backs up into your lungs, you will first start to notice shortness of breath when walking, or when lying flat. If you notice either of these, this should warrant further thought, and/or a call to your doctor If you notice both an increase in weight and worsening breathing, that definitely warrants getting seen as soon as possible "Dry"while the goal of managing the disease is to keep you from getting "wet, the medications can sometimes cause a degree of dehydration. Most people with congestive heart failure need frequent lab work (basic metabolic panel). Generally when there has been a change in diuretic dosing (a change in the water pill) or any other major changes, lab work should be followed closely and more frequently afterwards. This is because lab work will frequently show early signs of dehydration before you start to feel bad. Frequent symptoms of being dehydrated include: feeling weak and lightheaded, having lower blood pressures, making less urine than usual, or having a very dry mouth. If you notice any of these signs/symptoms, and you are not due for lab work, it would be quite reasonable to call your doctor to see if lab work or a visit could be arranged. Heart Failure Management Checklist: Limit Salt (Sodium) Intake to 2000mg (2g) per day and 500mg (0.5g) per meal Check weight daily (in same clothes, without shoes) every morning Use the provided chart to enter your weight and salt intake for the day Are you too wet? If you gained 2lb or more - make sure to take your water pill If your breathing is not good (you are more short of breath than usual) call your doctor regardless of weight change If you gained 2lb or more and you are short of breath, see your doctor or come to the emergency room Are you too dry? If you feel weak or lightheaded, have lower blood pressures, make less urine than usual, or have a very dry mouth. Call your doctor COPD Based on your symptoms, we have concern that you may have underlying COPD. This is a chronic lung condition that can make breathing more difficult. We will recommend your PCP complete pulmonary function tests to help determine if you have COPD. If the lung tests confirm this, your PCP will start you on different daily ("maintenance") inhalers to help your breathing. Pending Studies at Discharge: No Stand-Alone Forms: My [facility] goviral, Smoking Cessation Medications and DC Order Prescriptions: Continued bumetanide 2 mg tablet 2 mg PO BID Qty: 180 1RF potassium chloride 20 mEq tablet extended release 20 meq PO BID pantoprazole [Protonix] 40 mg tablet,delayed release (DR/EC) 40 mg PO QAM Qty: 120 3RF sodium chloride 1 gram tablet 1,000 mg PO BID Xarelto 20 mg tablet 20 mg PO HS Patient Comments: pt does not have holding instructions>encouraged to call and ask atorvastatin [Lipitor] 80 mg tablet 80 mg PO HS aspirin [Tj Low Dose Aspirin] 81 mg Tablet,Delayed Release (Dr/Ec) 81 mg PO QAM amitriptyline 50 mg Tablet 50 mg PO HS zolpidem 10 mg tablet 10 mg PO HS Rx Instructions: Verified with [facility] pharmacist pregabalin 300 mg capsule 300 mg PO BID sennosides-docusate sodium [Senokot-S] 8.6-50 mg Tablet 2 tab PO QAM PRN (Reason: constipation) Qty: 60 0RF Rx Instructions: OTC oxycodone 5 mg capsule 10 mg PO TID PRN (Reason: moderate-severe pain) Qty: 20 0RF metoprolol succinate 25 mg tablet extended release 24 hr 25 mg PO BID Discharge Orders: Discharge Order (Routine); Ordered 07/10/23 Ordered By: Olivia Jacobsen Admission Data Admit Date/Time: 07/06/23 16:56 Attending Provider: Julian Astudillo Admit Provider: Giovanny Santos Primary Care Provider: Kat Morataya Other Providers: Giovanny Santos ; Joshua Porter Other Interventions: Discharge Summary Assessment (RN) Last Done: 07/10/23 11:20 Supervising Physician Co-Signing Physician Notes I personally examined the patient and verified all stearns points of history and exam, discussed case, and agree with decision making with Dr Jacobsen Feels up to going home now. Breathing overall better. Extensive discussions with patient and regarding CHF, splenic infarct, follow-up, therapeutic options, next steps.. Vitals noted, in general she is awake and alert pleasant no distress. HEENT normocephalic atraumatic mucous membranes moist. Mercedes thing unlabored no accessory muscle use good effort. She does have dependent Rales Hypoxia/dyspneaafter further review probably predominantly pulmonary edema/acute on chronic HFpEFimproved with diuresis. Off oxygen. Educated on sodium restriction again. Discussed that its not entirely clear what the right course of action is with her chronic hyponatremia stabilized on salt tabs but an appearance of CHF and volume overloadrecommended close follow-up with her PCP to try to discern what the best chronic course of action is, i.e. whether she truly needs the salt tabs, or if her chronic hyponatremia might be a chronic state of volume overload. Splenic infarctuncertain etiology, Echo reassuring, but obviously not a RADHA. Agree with hematology's conundrum on switching blood thinnersin a shared decision making with patient, she would prefer to stay on Xarelto and have follow-up of her spleen as an outpatient in a few weeks, making a change if it seems like there are ongoing problems. We also discussed the possible viability of Pradaxa as a different DOAC given that it has a discretely different mechanism than the usual 10 A inhibitors. expresses understanding of this as well. Both are in agreement of continuing Xarelto for now and close follow-up. Possible COPDwe discussed that she appears to have findings consistent with COPD, she notes that she had spirometry done in the office sometime in the last year or so, we discussed that that would be useful because if she does not fact have COPD, she would likely breathe better with maintenance inhalers as wellthis will be an open issue for PCP follow-up. Pancreatitis finding on CThas prior pancreatic pathology, no abdominal painI wonder if it is a little bit of a drip down from her CHF, versus chronic type findings. Safe/stable for home Probably want to consider outpatient stress testing given overall milieu, but right now manage decompensated CHF and other more acute diagnoses
--- NOTE | 2023-07-10 19:13 | Billing Data ---
Date of Service July 10, 2023 Coding Level of Care Code 15031 IN/OBS DISCH 30 MIN/LESS
== END 2023-07-10 11:44 | disposition home or self-care (01) | DRG 291 ==
LOC: ED 10:45 → EDINP 16:56 → SUATTDRO 16:56 → 2S 19:37

== ENCOUNTER 2023-11-04 13:23 | Inpatient (IN) ==
[2023-11-04 14:04] LABS: Basophils # (auto) 0.07 K/uL (0.00-0.20); Basophils % (auto) 0.6 %; Eosinophils # (auto) 0.17 K/uL (0.00-0.50); Eosinophils % (auto) 1.5 %; Hematocrit (blood only) 29.2 % (37.0-47.0); Immature Granulocytes % (auto) 0.9 %; Lymphocytes # (auto) 1.57 K/uL (1.20-3.40); Lymphocytes % (auto) 14.3 %; Mean Corpuscular Hemoglobin 26.9 pg (25.0-34.0); Mean Corpuscular Hgb Conc 30.8 g/dL (32.0-36.0); Mean Corpuscular Volume 87.2 fL (80.0-100.0); Mean Platelet Volume 11.4 fL (9.4-12.4); Monocytes # (auto) 0.98 K/uL (0.11-0.59); Monocytes % (auto) 8.9 %; Neutrophils # (auto) 8.12 K/uL (1.40-6.50); Neutrophils % (auto) 73.8 %; Platelet Count 247 K/uL (130-400); RDW Coefficient of Variation 18.9 % (11.5-14.5); RDW Standard Deviation 59.7 fL (36.4-46.3); Red Blood Count 3.35 M/uL (4.20-5.40); White Blood Count 11.01 K/ul (4.8-10.8)
[2023-11-04 14:19] LABS: Alanine Aminotransferase 6 U/L (7-52); Albumin Globulin Ratio 0.9 (0.9-2); Albumin Level 2.9 gm/dl (3.4-5.0); Alkaline Phosphatase 157 U/L (34-104); Amylase 19 U/L (25-115); Anion Gap 5 (3-11); Aspartate Aminotransferase 16 U/L (13-39); BUN Creatinine Ratio 7.9 (10-20); Bilirubin,Total 1.3 mg/dl (0.2-1.0); Blood Urea Nitrogen 6 mg/dl (6-23); Carbon Dioxide 21 mmol/L (21-32); Chloride 103 mmol/L (98-107); Est GFR (African American) 96.8 ml/min; Est GFR (Non-African American) 83.5 ml/min; Globulin 3.4 gm/dl (2.5-4.0); Glucose 99 mg/dl (70-99(Fasting)); Lipase 7 U/L (11-82); Sodium 129 mmol/L (136-145); Total Protein 6.3 gm/dl (6.0-8.3)
[2023-11-04 14:29] LABS: INR 1.5 (0.9-1.1); Partial Thromboplastin Ratio 1.6; Partial Thromboplastin Time 44 Seconds (21-31); Prothrombin Time 16.1 Seconds (9.0-12.0)
--- NOTE | 2023-11-04 14:46 | Emergency Department Note ---
Impression & Plan Colitis, Chronic atrial fibrillation, custodial (current) use of anticoagulants, Abdominal pain, Acute GI bleeding ED Provider Note NAME: TIARA MCCALL AGE: 63 SEX: F : 1960 ARRIVES VIA: Walk-In INFORMANT: Patient, ED PROVIDER(S): Asael Powers MD CHIEF COMPLAINT: Rectal bleed MEDICAL DECISION MAKING: Patient presented due to concern for GI bleeding in setting of taking Xarelto. IV was established and blood work was obtained. The patient is white count of 11 with a hemoglobin of 9. This is relatively chronic and stable. Platelet count is unremarkable. Kidney function unremarkable. Patient did have a type and screen completed the patient did have a CT abdomen pelvis performed. Patient CT does show evidence of nonspecific colitis which could be infectious inflammatory or ischemic. Also the possibility of acute versus acute on chronic pancreatitis. Evolving splenic infarct. Given the patient's Xarelto use with associated GI bleeding I did speak the on-call hospitalist service and the patient was admitted by Dr. Santos. Discussion w/ other healthcare providers: Dr. Santos inpatient medicine Prior /Outside records reviewed: I did review a prior CT scan ordered by Dr. Ocampo which noted the patient did have a questionable hypodensity in the pancreatic head given possibility of pancreatitis or duodenitis. Differential diagnosis: Diverticulitis, AVM, coagulopathy, colitis, inflammatory bowel disease, malignancy, esophagitis, peptic ulcer disease, variceal bleed, gastritis, fissure, hemorrhoids, as well as other pathologies. Diagnostics, as interpreted by me: ECG: A-fib, rate of 83, normal QRS, normal axis no ST elevations. Cardiac monitoring: An order was placed for continuous cardiac monitoring. The monitor shows a rate of 86 with irregular irregular rhythm. Patient was placed on pulse oximetry Medical decision rules: None Imaging studies: I informally interpreted the patient's CT abdomen pelvis which does not show obvious obstruction with formal report to follow. HPI: Patient presents due to concern for rectal bleeding and has had associated clots. The patient states that she does take Xarelto and last took them last evening. Patient denies any falls or trauma. She does complain of lower abdominal pain. No dysuria. Patient does not take anything for symptoms at home.Patient has been having some diarrhea since taking oral contrast for a CT. The patient states that earlier this morning she began having some abdominal pain generalized and crampy was noticed it to be in her lower mid abdomen. Patient takes Xarelto for known history of A-fib. PAST MEDICAL HISTORY: See Below PAST SURGICAL HISTORY: See Below SOCIAL HISTORY: See Below HOME MEDICATIONS: See Below ALLERGIES: See Below VITALS: See Below PHYSICAL EXAMINATION: GENERAL: Wearing glasses, appears older than stated age EYE EXAM: Normal conjunctiva. PERRL, no anisocoria and EOM's grossly intact w/o pain. OROPHARYNX: Moist mucus membranes, grossly normal dentition. NECK: Trachea midline, no stridor. Supple, no nuchal rigidity, no adenopathy, non-tender. No signs of meningismus. FROM of the neck with good chin to chest and neck extension. LUNGS: Clear to auscultation. Normal chest wall mechanics. HEART: Irregularly irregular, no MRG. ABDOMEN: Abdomen soft, diffuse abdominal pain most localized in the suprapubic area, not peritonitic no masses, no rebound or guarding. BACK: No CVA TTP. SKIN: No rashes and no bruising. UPPER EXTREMITIES: Upper extremities are grossly normal. LOWER EXTREMITIES: No significant edema noted. NEURO EXAM: A&O x3, cranial nerves II-XII grossly intact, normal speech, moves all 4 extremities. 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 Zarate ([facility]) HTN (hypertension) Hx of gastric ulcer Neuropathy Hx of pancreatitis Chronic. Due to heavy alcohol consumption per records Anxiety and depression DVT (deep venous thrombosis) 40+ years ago Hx of migraines Pacemaker Dual-chamber, implanted 2018 (high grade AVB/sinus node dysfunction), [employer], follows with Dr. Fragin GERD (gastroesophageal reflux disease) Hyponatremia Chronic issue- follows with nephrology Chronic pain syndrome Tobacco use disorder Paroxysmal atrial fibrillation REASON FOR XARELTO Dyslipidemia PVD (peripheral vascular disease) S/p left BKA Surgical History Hx of oral surgery (09/17/22) Debridement Necrotic Bone and Soft Tissue and Associated Infected Periodontally Infected Teeth to Allow Mitral Valve Replacement (Lower Jaw)(Not Applicable) - Ha Champion, DMD Hx of vascular surgery 11/2019, with dr sethi, [facility], replaced 2 veins with bovine veins in Rt leg History of surgery (~07/30/21) Attempt for MitraClip ([facility] was performed but unsuccessful (07/2021); currently being seen in [facility] for a trial for valve replacement History of esophagogastroduodenoscopy (EGD) History of cardiac cath (~04/24/21) 03/2021@ [facility] with Dr. Carbajal, no evidence of epicardial CAD S/P angiogram of extremity right lower leg S/P femoral-popliteal bypass surgery History of amputation REVISION OF AMPUTATION LLE History of colonoscopy History of tooth extraction Status post below knee amputation of left lower extremity Status post ORIF of fracture of ankle ORIF closed displaced trimalleolar left ankle fracture (2016) H/O vascular surgery Bilateral femoral endarterectomy with iliac stent (2016) History of appendectomy Family History Unknown No problems noted. Father Family history of diabetes mellitus Other No family history of adverse response to anesthesia Social History Smoking Status: Current every day smoker Tobacco Type: Cigarettes Cigarettes Per Day: 1/2 ppd; Second Hand Exposure: No; Do You Dip or Chew Tobacco: No; Tobacco Cessation Education Requested by Patient: No Hx Alcohol Use: Yes Alcohol type: beer Hx Substance Use: No Preferred Language: Urdu Communication Ability: Effective Visual Impairment: No Limitations Train Dispatcher Required: No Beliefs That Will Affect Care: None marital status: Current Living Situation: Spouse current occupation: Retired How many Children do You have: 1 Feels Safe at Home: Yes Safety Concerns: Feels Safe At This Time Assistive Devices: Cane, Prosthesis, Walker and Wheelchair Allergies Allergies Allergy/AdvReac Type Severity Reaction Status Date / Time adhesive Allergy Severe SEVERE Verified 11/04/23 14:44 SKIN IRRITATION guanfacine Allergy Intermediate BP PROBLEMS Verified 11/04/23 14:44 nifedipine Allergy Intermediate BP PROBLEMS Verified 11/04/23 14:44 acetaminophen AdvReac Severe LIVER Verified 11/04/23 14:44 DAMAGE-DUE TO FAILURE amoxicillin AdvReac Severe LIVER Verified 11/04/23 14:44 FAILURE clavulanic acid AdvReac Severe LIVER Verified 11/04/23 14:44 FAILURE Home Meds Home Medications Medication Instructions Recorded Confirmed atorvastatin 80 mg tablet (Lipitor) 80 mg PO HS 06/06/19 11/04/23 aspirin 81 mg tablet,delayed 81 mg PO QAM 12/19/19 11/04/23 release (Tj Low Dose Aspirin) pregabalin 300 mg capsule 300 mg PO BID 10/24/21 11/04/23 zolpidem 10 mg tablet 10 mg PO HS 10/24/21 11/04/23 rivaroxaban 20 mg tablet (Xarelto) 20 mg PO HS 06/11/22 11/04/23 amitriptyline 50 mg tablet 50 mg PO HS 09/11/22 11/04/23 metoprolol succinate 25 mg 25 mg PO BID 04/25/23 11/04/23 tablet,extended release 24 hr oxycodone 5 mg capsule 5 mg PO TID PRN moderate-severe 11/04/23 11/04/23 pain Previous Rx's Medication Instructions Recorded sennosides 8.6 mg-docusate sodium 2 tab PO QAM PRN constipation #60 04/18/23 50 mg tablet (Senokot-S) tabs pantoprazole 40 mg tablet,delayed 40 mg PO QAM #120 tabs 06/24/23 release (Protonix) bumetanide 2 mg tablet 2 mg PO BID #180 tabs 08/11/23 sodium chloride 1,000 mg soluble 1,000 mg PO BID #180 tabs 08/11/23 tablet potassium chloride 20 mEq 40 meq (2 x 20 mEq) PO BID #120 10/04/23 tablet,extended release tabs Results & Data (ED) Vital Signs Vital Signs - 24 hr 11/04/23 13:26 11/04/23 14:37 Temperature 36.5 C Temperature Source Temporal Artery Scan Pulse Rate 132 H 86 Respiratory Rate 18 20 Respiratory Effort / Characteristics Non-Labored Spontaneous Respiratory Depth Normal Blood Pressure 123/83 Blood Pressure Mean 96 Pulse Oximetry 86 L 97 Oxygen Delivery Method Room Air Room Air Sepsis Recent Fever Within 48 Hours No Sepsis New/Unexplained Change in Mental Status No Sepsis Action Taken by Nursing No Action Required Home Medications Current Medication List: was personally reviewed by me Laboratory Data Attestation: I reviewed the patient's lab results. 11/09/23 04:37 11/09/23 04:37 Lab Results 11/04/23 Range/Units 13:50 WBC 11.01 H (4.8-10.8) K/ul RBC 3.35 L (4.20-5.40) M/uL Hgb 9.0 L (12.0-16.0) g/dl Hct 29.2 L (37.0-47.0) % MCV 87.2 (80.0-100.0) fL MCH 26.9 (25.0-34.0) pg MCHC 30.8 L (32.0-36.0) g/dL RDW Std Deviation 59.7 H (36.4-46.3) fL RDW Coeff of Marlon 18.9 H (11.5-14.5) % Plt Count 247 (130-400) K/uL MPV 11.4 (9.4-12.4) fL Immature Gran % (Auto) 0.9 % Neut % (Auto) 73.8 % Lymph % (Auto) 14.3 % [place] % (Auto) 8.9 % Eos % (Auto) 1.5 % Baso % (Auto) 0.6 % Neut # (Auto) 8.12 H (1.40-6.50) K/uL Lymph # (Auto) 1.57 (1.20-3.40) K/uL [place] # (Auto) 0.98 H (0.11-0.59) K/uL Eos # (Auto) 0.17 (0.00-0.50) K/uL Baso # (Auto) 0.07 (0.00-0.20) K/uL Immature Gran # (Auto) 0.10 (0.01-0.20) K/uL PT 16.1 H (9.0-12.0) Seconds INR 1.5 H (0.9-1.1) APTT 44 H (21-31) Seconds PTT Ratio 1.6 Sodium 129 L (136-145) mmol/L Potassium 5.0 (3.5-5.1) mmol/L Chloride 103 (98-107) mmol/L Carbon Dioxide 21 (21-32) mmol/L Anion Gap 5 (3-11) BUN 6 (6-23) mg/dl Creatinine 0.76 (0.6-1.2) mg/dl Est Cr Clr Drug Dosing Not Reportable Est GFR ( Amer) 96.8 ml/min Est GFR (Non-Af Amer) 83.5 ml/min BUN/Creatinine Ratio 7.9 L (10-20) Glucose 99 (70-99(Fasting)) mg/dl Calcium 8.0 L (8.6-10.3) mg/dl Total Bilirubin 1.3 H (0.2-1.0) mg/dl AST 16 (13-39) U/L ALT 6 L (7-52) U/L Alkaline Phosphatase 157 H (34-104) U/L Total Protein 6.3 (6.0-8.3) gm/dl Albumin 2.9 L (3.4-5.0) gm/dl Globulin 3.4 (2.5-4.0) gm/dl Albumin/Globulin Ratio 0.9 (0.9-2) Amylase 19 L (25-115) U/L Lipase 7 L (11-82) U/L Blood Type O Positive Antibody Screen NEGATIVE Crossmatch See Detail Administered Medications Amitriptyline HCl (Amitriptyline Hcl 50 Mg Tab) 50 mg PO ZACH Stop: 12/04/23 22:29 Last Admin: 11/08/23 21:09 Dose: 50 mg Documented By: Admin: 11/07/23 20:39 Dose: 50 mg Documented By: Admin: 11/06/23 21:35 Dose: 50 mg Documented By: Admin: 11/05/23 20:21 Dose: 50 mg Documented By: Admin: 11/04/23 23:09 Dose: 50 mg Documented By: MICAH Atorvastatin Calcium (Atorvastatin 40 Mg Tab) 80 mg PO ZACH Stop: 12/04/23 22:29 Last Admin: 11/08/23 21:09 Dose: 80 mg Documented By: Admin: 11/07/23 20:39 Dose: 80 mg Documented By: Admin: 11/06/23 21:34 Dose: 80 mg Documented By: Admin: 11/05/23 20:21 Dose: 80 mg Documented By: Admin: 11/04/23 23:09 Dose: 80 mg Documented By: MICAH Metoprolol Succinate (Metoprolol Succ 25mg Ext Rel Tab) 25 mg PO BID ZACH Stop: 12/04/23 22:29 Last Admin: 11/09/23 09:51 Dose: 25 mg Documented By: Admin: 11/08/23 21:09 Dose: 25 mg Documented By: Admin: 11/08/23 08:31 Dose: 25 mg Documented By: Admin: 11/07/23 20:38 Dose: 25 mg Documented By: Admin: 11/07/23 08:44 Dose: 25 mg Documented By: Admin: 11/06/23 21:34 Dose: 25 mg Documented By: Admin: 11/06/23 11:11 Dose: 25 mg Documented By: Admin: 11/05/23 20:19 Dose: 25 mg Documented By: Admin: 11/05/23 11:36 Dose: 25 mg Documented By: Admin: 11/04/23 23:10 Dose: 25 mg Documented By: MICAH Discontinued Medications Bumetanide (Bumetanide 1 Mg Tab) 2 mg PO BID17 [facility] Stop: 12/05/23 08:59 Last Admin: 11/05/23 10:21 Dose: Not Given Documented By: KEIRY Fentanyl Citrate (Fentanyl Citrate Pf 100 Mcg/2 Ml Vial) 25 mcg IV NOW STA Stop: 11/04/23 16:17 Last Admin: 11/04/23 16:24 Dose: 25 mcg Documented By: CPB Hydromorphone HCl (Hydromorphone Inj 1 Mg/Ml Syringe) 1 mg IV Q3H PRN PRN Reason: Pain level 6-10 Stop: 11/19/23 01:26 Last Admin: 11/05/23 20:27 Dose: 1 mg Documented By: Admin: 11/05/23 01:46 Dose: 1 mg Documented By: ERIK Pantoprazole Sodium 80 mg/ (Dextrose) 120 mls @ 480 mls/hr IV NOW ONE Stop: 11/04/23 14:59 Last Infusion: 11/04/23 17:16 Dose: Infused Documented By: Admin: 11/04/23 15:40 Dose: 480 mls/hr Documented By: CPB Pantoprazole Sodium 40 mg/ (Dextrose) 100 mls @ 20 mls/hr IV Q5H ZACH Stop: 12/04/23 14:59 Last Infusion: 11/05/23 14:32 Dose: Infused Documented By: Admin: 11/05/23 11:32 Dose: 8 mg/hr, 20 mls/hr Documented By: Infusion: 11/05/23 11:32 Dose: Infused Documented By: Admin: 11/05/23 06:34 Dose: 8 mg/hr, 20 mls/hr Documented By: Infusion: 11/05/23 06:34 Dose: Infused Documented By: Admin: 11/05/23 01:37 Dose: 8 mg/hr, 20 mls/hr Documented By: Infusion: 11/05/23 01:23 Dose: Infused Documented By: Admin: 11/04/23 20:09 Dose: 8 mg/hr, 20 mls/hr Documented By: Infusion: 11/04/23 20:09 Dose: Infused Documented By: Admin: 11/04/23 16:15 Dose: 8 mg/hr, 20 mls/hr Documented By: CPB Potassium Chloride/Sodium Chloride (Normal Saline W/20 Meq Kcl) 20 meq in 1,000 mls @ 50 mls/hr IV .Q20H ZACH; Protocol Stop: 12/04/23 22:29 Last Infusion: 11/08/23 11:31 Dose: Infused Documented By: Admin: 11/07/23 20:39 Dose: 60 mls/hr Documented By: Infusion: 11/07/23 18:51 Dose: Infused Documented By: Admin: 11/07/23 02:10 Dose: 60 mls/hr Documented By: Infusion: 11/06/23 18:32 Dose: Infused Documented By: Admin: 11/06/23 08:26 Dose: 100 mls/hr Documented By: Infusion: 11/06/23 08:20 Dose: Infused Documented By: Admin: 11/05/23 22:05 Dose: 100 mls/hr Documented By: Infusion: 11/05/23 21:32 Dose: Infused Documented By: Admin: 11/05/23 11:32 Dose: 100 mls/hr Documented By: Infusion: 11/05/23 09:54 Dose: Infused Documented By: Admin: 11/05/23 00:47 Dose: 100 mls/hr Documented By: ERIK Ceftriaxone Sodium 2,000 mg/ (Dextrose) 50 mls @ 100 mls/hr IV Q24H ZACH; Protocol Stop: 11/14/23 22:59 Last Infusion: 11/05/23 22:38 Dose: Infused Documented By: Admin: 11/05/23 22:07 Dose: 100 mls/hr Documented By: Infusion: 11/05/23 00:51 Dose: Infused Documented By: Admin: 11/04/23 23:36 Dose: 100 mls/hr Documented By: MICAH Metronidazole (Flagyl) 500 mg in 100 mls @ 100 mls/hr IV Q8H ZACH; Protocol Stop: 11/15/23 00:00 Last Infusion: 11/06/23 09:47 Dose: Infused Documented By: Admin: 11/06/23 08:25 Dose: 100 mls/hr Documented By: Infusion: 11/06/23 00:24 Dose: Infused Documented By: Admin: 11/05/23 23:09 Dose: 100 mls/hr Documented By: Infusion: 11/05/23 17:02 Dose: Infused Documented By: Admin: 11/05/23 14:57 Dose: 100 mls/hr Documented By: Infusion: 11/05/23 09:55 Dose: Infused Documented By: Admin: 11/05/23 08:08 Dose: 100 mls/hr Documented By: Infusion: 11/05/23 02:38 Dose: Infused Documented By: Admin: 11/05/23 01:29 Dose: 100 mls/hr Documented By: ERIK Pantoprazole Sodium 40 mg/ (Syringe) 10 mls @ 5 mls/min IV BID ZACH Stop: 12/05/23 20:59 Last Admin: 11/06/23 08:25 Dose: 5 mls/min Documented By: Admin: 11/05/23 20:21 Dose: 5 mls/min Documented By: ERIK Ioversol (Optiray 320 500ml) 81 ml IV ONCE ONE Stop: 11/04/23 15:33 Last Admin: 11/04/23 15:32 Dose: 81 ml Documented By: JERMAINE Morphine Sulfate (Morphine Sulfate 2 Mg/Ml Carp) 2 mg IV NOW STA Stop: 11/04/23 18:45 Last Admin: 11/04/23 19:39 Dose: 2 mg Documented By: MICAH Ondansetron HCl (Ondansetron Inj 2 Mg/Ml 2 Ml Vial) 4 mg IV NOW STA Stop: 11/05/23 20:20 Last Admin: 11/05/23 20:27 Dose: 4 mg Documented By: ERIK Oxycodone HCl (Oxycodone Hcl Ir 5 Mg Tab (Immediate Release)) 5 mg PO NOW STA Stop: 11/08/23 15:16 Last Admin: 11/08/23 15:29 Dose: 5 mg Documented By: LEONORA Pantoprazole Sodium (Pantoprazole Bolus/Drip) 1 each IV NOW STA Stop: 11/04/23 14:46 Last Admin: 11/04/23 17:08 Dose: 1 each Documented By: SHMUEL Pregabalin (Pregabalin 150 Mg Cap) 300 mg PO BID ZACH Stop: 12/04/23 22:29 Last Admin: 11/07/23 08:41 Dose: 300 mg Documented By: Admin: 11/06/23 21:34 Dose: 300 mg Documented By: Admin: 11/06/23 11:11 Dose: 300 mg Documented By: Admin: 11/05/23 20:20 Dose: 300 mg Documented By: Admin: 11/05/23 14:32 Dose: Not Given Documented By: Admin: 11/05/23 00:46 Dose: 300 mg Documented By: ERIK Sodium Chloride (Sodium Chloride 1 Gm Tablet) 1 gm PO BID ZACH Stop: 12/04/23 22:29 Last Admin: 11/05/23 10:21 Dose: Not Given Documented By: Admin: 11/04/23 23:11 Dose: 1 gm Documented By: MICAH Zolpidem Tartrate (Zolpidem Tartrate 10 Mg Tab) 10 mg PO HS ZACH Stop: 12/04/23 22:29 Last Admin: 11/06/23 21:34 Dose: 10 mg Documented By: Admin: 11/05/23 20:21 Dose: 10 mg Documented By: Admin: 11/05/23 00:46 Dose: 10 mg Documented By: [facility] Imaging Data Radiologist's Impression: Abdomen/Pelvis CT 11/04/23 14:45 CT SCAN OF THE ABDOMEN AND PELVIS WITH IV CONTRAST CLINICAL HISTORY: Lower abdominal pain. Hematochezia. COMPARISON STUDY: Abdominal CT dated 10/21/2023. TECHNIQUE: Following the IV administration of 81 cc of Optiray 320, CT scan of the abdomen and pelvis is performed from the lung bases to the proximal femora. Images are reviewed in the axial, sagittal, and coronal planes. IV contrast was administered without complication. A dose lowering technique was utilized adhering to the principles of ALARA. CT DOSE: 1310.99 mGy.cm FINDINGS: Lung bases: The heart is mildly enlarged and without pericardial effusion. Pacemaker leads are in place. Emphysematous change is noted. There is mild bibasilar scarring/atelectasis. No airspace consolidation or pleural effusion is identified. Liver: The contrast-enhanced liver is normal in size and contour. Attenuation is heterogeneous. There is no intrahepatic biliary ductal dilatation. The hepatic veins and portal veins are patent. Gallbladder: Unremarkable. Spleen: There is a subacute/evolving splenic infarct. There are calcified splenic granulomas. Pancreas: There is mild to moderate glandular atrophy. Calcifications in the pancreatic head suggesting chronic pancreatitis. There is infiltration identified around the pancreatic head and neck was present acute versus acute on chronic pancreatitis. The duct is normal in caliber. Adrenal glands: Nodular thickening of the left adrenal gland is unchanged. The right adrenal gland is normal in appearance. Kidneys: The contrast enhanced kidneys demonstrate moderate cortical atrophy and are without hydronephrosis. The kidneys enhance symmetrically. A retroverted left renal vein is incidentally noted. A 14 mm cyst is noted in the left lower pole. Foci of cortical scarring are seen in the left upper pole. Abdominal vasculature: There is advanced atherosclerotic calcification of the abdominal aorta. Suspect bilateral iliac artery stents, as well as a stent in the left superficial femoral artery. A right lower extremity arterial bypass is partially imaged. Bowel: There is a long segment of wall thickening involving the colon. This extends from the right colon to the distal descending colon. There is pericolonic infiltration, and the appearance is consistent with a nonspecific colitis. No bowel obstruction is seen. The appendix is not identified. Peritoneum: There is trace perihepatic and perisplenic ascites, as well as trace free fluid in the pelvis. No intraperitoneal free air is seen. Lymphadenopathy: Prominent upper abdominal lymph nodes are similar to previous. A node in the hilum measures up to 13 mm in short axis. Pelvic viscera: The bladder wall appears thickened. The uterus and adnexa are normal as visualized. Postsurgical change is noted in the groin bilaterally. Skeletal structures: The skeletal structures are osteopenic. There is moderate lumbosacral spondylosis. No lytic or blastic lesions are seen. IMPRESSION: 1. There is evidence of a nonspecific colitis as above which extends from the ascending colon to the distal descending colon. This could be on an infectious, inflammatory, or ischemic basis. Correlate clinically. 2. Infiltration is seen around the pancreatic head and neck. Correlate with clinical and laboratory findings for evidence of acute versus acute on chronic pancreatitis. 3. There is a subacute/evolving splenic infarct. 4. Trace abdominopelvic ascites. 5. Emphysema and advanced atherosclerotic change. 6. The bladder wall appears thickened. Correlate with clinical findings and urinalysis. 7. Additional findings as above. ACT 112: Negative or not required by law. Electronically signed by: Angus Marte M.D. 11/04/2023 3:49 PM Discharge Plan Visit Data Chief Complaint: Rectal Bleed Stated Complaint: RECTAL BLEED ED Provider: Asael Powers Discharge Problem: Colitis, Chronic atrial fibrillation, buttermaker continuous churn (current) use of anticoagulants, Abdominal pain, Acute GI bleeding Patient Disposition: Admitted As Inpatient Discharge Instructions Interventions: ED Discharge Assessment Last Done: 11/04/23 22:30 Discharge Problem: Abdominal pain Qualifiers: Abdominal location: generalized Qualified Code(s): R10.84 - Generalized abdominal pain
--- NOTE | 2023-11-04 15:08 | Electrocardiogram Report ---
Test Reason : Blood Pressure : / mmHG Vent. Rate : 083 BPM Atrial Rate : 000 BPM P-R Int : 000 ms QRS Dur : 076 ms QT Int : 338 ms P-R-T Axes : 000 058 054 degrees QTc Int : 397 ms Atrial fibrillation Low voltage QRS Abnormal ECG When compared with ECG of 06-JUL-2023 11:04, T wave inversion no longer evident in Inferior leads T wave inversion no longer evident in Lateral leads Confirmed by Tramaine Granado ([id number]) on 11/04/2023 3:08:28 PM Referred By: REFERRED SELF Confirmed By:Tramaine Granado
[2023-11-04] MEDS: OPTIRAY 320 500ml IV ONE (15:32)
[2023-11-04] MEDS: PANTOprazole 80 MG in DEXTROSE 5% 100 ML IV ONE (15:40)
--- NOTE | 2023-11-04 15:51 | CT Scan Report ---
CT SCAN OF THE ABDOMEN AND PELVIS WITH IV CONTRAST CLINICAL HISTORY: Lower abdominal pain. Hematochezia. COMPARISON STUDY: Abdominal CT dated 10/21/2023. TECHNIQUE: Following the IV administration of 81 cc of Optiray 320, CT scan of the abdomen and pelvi s is performed from the lung bases to the proximal femora. Images are reviewed in the axial, sagittal , and coronal planes. IV contrast was administered without complication. A dose lowering technique wa s utilized adhering to the principles of ALARA. CT DOSE: 1310.99 mGy.cm FINDINGS: Lung bases: The heart is mildly enlarged and without pericardial effusion. Pacemaker leads are in ze ce. Emphysematous change is noted. There is mild bibasilar scarring/atelectasis. No airspace consolid ation or pleural effusion is identified. Liver: The contrast-enhanced liver is normal in size and contour. Attenuation is heterogeneous. There is no intrahepatic biliary ductal dilatation. The hepatic veins and portal veins are patent. Gallbladder: Unremarkable. Spleen: There is a subacute/evolving splenic infarct. There are calcified splenic granulomas. Pancreas: There is mild to moderate glandular atrophy. Calcifications in the pancreatic head suggesti ng chronic pancreatitis. There is infiltration identified around the pancreatic head and neck was pre sent acute versus acute on chronic pancreatitis. The duct is normal in caliber. Adrenal glands: Nodular thickening of the left adrenal gland is unchanged. The right adrenal gland is normal in appearance. Kidneys: The contrast enhanced kidneys demonstrate moderate cortical atrophy and are without hydronep hrosis. The kidneys enhance symmetrically. A retroverted left renal vein is incidentally noted. A 14 mm cyst is noted in the left lower pole. Foci of cortical scarring are seen in the left upper pole. Abdominal vasculature: There is advanced atherosclerotic calcification of the abdominal aorta. Suspec t bilateral iliac artery stents, as well as a stent in the left superficial femoral artery. A right l ower extremity arterial bypass is partially imaged. Bowel: There is a long segment of wall thickening involving the colon. This extends from the right co aleisha to the distal descending colon. There is pericolonic infiltration, and the appearance is consiste nt with a nonspecific colitis. No bowel obstruction is seen. The appendix is not identified. Peritoneum: There is trace perihepatic and perisplenic ascites, as well as trace free fluid in the pe lvis. No intraperitoneal free air is seen. Lymphadenopathy: Prominent upper abdominal lymph nodes are similar to previous. A node in the hilum m easures up to 13 mm in short axis. Pelvic viscera: The bladder wall appears thickened. The uterus and adnexa are normal as visualized. P ostsurgical change is noted in the groin bilaterally. Skeletal structures: The skeletal structures are osteopenic. There is moderate lumbosacral spondylosi s. No lytic or blastic lesions are seen. IMPRESSION: 1. There is evidence of a nonspecific colitis as above which extends from the ascending colon to the distal descending colon. This could be on an infectious, inflammatory, or ischemic basis. Correlate c linically. 2. Infiltration is seen around the pancreatic head and neck. Correlate with clinical and laboratory f indings for evidence of acute versus acute on chronic pancreatitis. 3. There is a subacute/evolving splenic infarct. 4. Trace abdominopelvic ascites. 5. Emphysema and advanced atherosclerotic change. 6. The bladder wall appears thickened. Correlate with clinical findings and urinalysis. 7. Additional findings as above. ACT 112: Negative or not required by law. Electronically signed by: Angus Marte M.D. 11/04/2023 3:49 PM
[2023-11-04] MEDS: PANTOprazole 40 MG in DEXTROSE 5% MINI-B 100 ML IV SCH (16:15)
[2023-11-04] MEDS: fentaNYL citrate PF 100 MCG/2 ML VIAL IV STA (16:24)
--- NOTE | 2023-11-04 16:36 | History & Physical Report ---
Date of Service November 04, 2023 Assessment & Plan (1) Colitis: Plan: Rule out C. difficile. Suspect this is less likely due to lack of history, lack of recent antibiotics and only mildly elevated white blood count. However recommend ruling this out prior to starting ceftriaxone/metronidazole for empiric coverage. Stool PCR for alternative infectious cause Consult gastroenterology. Given multiple arterial distribution suspect ischemia less likely at this time although could consider CT angiogram if no cause found on infectious workup. NPO, IV fluids (2) Acute gastrointestinal bleeding: Plan: Suspect lower GI bleed given colitis seen on CT and description of blood clots rather than melena but will continue pantoprazole @ 40mg IV BID given Hx GERD. Stop Xarelto and aspirin Consult gastroenterology (3) Acute blood loss anemia: Plan: H&H q.6 hourly Transfuse < 7 (4) GERD (gastroesophageal reflux disease): Plan: Switch pantoprazole to IV as above (5) (HFpEF) heart failure with preserved ejection fraction: Plan: Continue Bumex Monitor for worsening respiratory status on IV fluids (6) Chronic hyponatremia: Plan: Continue salt tabs, bumex NSS as IV fluids (7) Chronic atrial fibrillation: Plan: Hold Xarelto for anticoagulation Continue rate control with metoprolol succinate Plan VTE Prophyalxis - stop Xarelto Diet - NPO Disposition - admit to med/tele Admission and Anticipated Discharge Date Admission Date: Nov 04, 2023 History of Present Illness Chief Complaint: Abdominal pain, rectal bleeding and diarrhea Primary Care Provider: Kat Morataya MD Anisha Garcia is a 63 year old female who presents to the ER with abdominal pain, rectal bleeding and diarrhea. She reports diarrhea since Oct 21 after taking oral contrast medium for CT. It has been watery brown since then but without abdominal pain, nausea or vomiting. This morning she started with abdominal pain, severity 6/10, generalized, cramping, coming on in waves. On waking up this morning she noticed she had passed significant amount of clots in bed. She denies any previous history of colitis, c. diff or inflammatory bowel disease. She takes Xarelto for atrial fibrillation which she last took last night. She has a had multiple hospitalizations for congestive heart failure in the past but reports no current chest pain, shortness of breath, palpitations, leg swelling and her weight has been stable. Allergies Allergy/AdvReac Type Severity Reaction Status Date / Time adhesive Allergy Severe SEVERE Verified 11/04/23 14:44 SKIN IRRITATION guanfacine Allergy Intermediate BP PROBLEMS Verified 11/04/23 14:44 nifedipine Allergy Intermediate BP PROBLEMS Verified 11/04/23 14:44 acetaminophen AdvReac Severe LIVER Verified 11/04/23 14:44 DAMAGE-DUE TO FAILURE amoxicillin AdvReac Severe LIVER Verified 11/04/23 14:44 FAILURE clavulanic acid AdvReac Severe LIVER Verified 11/04/23 14:44 FAILURE Home Medications Medication Instructions Recorded Confirmed Type atorvastatin 80 mg tablet (Lipitor) 80 mg PO HS 06/06/19 11/04/23 History aspirin 81 mg tablet,delayed 81 mg PO QAM 12/19/19 11/04/23 History release (Tj Low Dose Aspirin) pregabalin 300 mg capsule 300 mg PO BID 10/24/21 11/04/23 History zolpidem 10 mg tablet 10 mg PO HS 10/24/21 11/04/23 History rivaroxaban 20 mg tablet (Xarelto) 20 mg PO HS 06/11/22 11/04/23 History amitriptyline 50 mg tablet 50 mg PO HS 09/11/22 11/04/23 History sennosides 8.6 mg-docusate sodium 2 tab PO QAM PRN constipation #60 04/18/23 11/04/23 Rx 50 mg tablet (Senokot-S) tabs metoprolol succinate 25 mg 25 mg PO BID 04/25/23 11/04/23 History tablet,extended release 24 hr pantoprazole 40 mg tablet,delayed 40 mg PO QAM #120 tabs 06/24/23 11/04/23 Rx release (Protonix) bumetanide 2 mg tablet 2 mg PO BID #180 tabs 08/11/23 11/04/23 Rx sodium chloride 1,000 mg soluble 1,000 mg PO BID #180 tabs 08/11/23 11/04/23 Rx tablet potassium chloride 20 mEq 40 meq (2 x 20 mEq) PO BID #120 10/04/23 11/04/23 Rx tablet,extended release tabs oxycodone 5 mg capsule 5 mg PO TID PRN moderate-severe 11/04/23 11/04/23 History pain Past Med/Surg History Medical History (HFpEF) heart failure with preserved ejection fraction Anxiety and depression AV block Chronic atrial fibrillation Chronic pain syndrome TRISTAN (dyspnea on exertion) DVT (deep venous thrombosis) Dyslipidemia GERD (gastroesophageal reflux disease) History of COVID-19 HTN (hypertension) Hx of gastric ulcer Hx of migraines Hx of pancreatitis Hyponatremia Metabolic alkalosis Neuropathy Pacemaker Pancreas cyst Paroxysmal atrial fibrillation PVD (peripheral vascular disease) Severe mitral regurgitation Tobacco use disorder Surgical History H/O vascular surgery History of amputation History of appendectomy History of cardiac cath (~04/24/21) History of colonoscopy History of esophagogastroduodenoscopy (EGD) History of surgery (~07/30/21) History of tooth extraction Hx of oral surgery (09/17/22) Hx of vascular surgery S/P angiogram of extremity S/P femoral-popliteal bypass surgery Status post below knee amputation of left lower extremity Status post ORIF of fracture of ankle Family History Unknown No problems noted. Father Family history of diabetes mellitus Other No family history of adverse response to anesthesia Social History Smoking Status: Current every day smoker Tobacco Type: Cigarettes Cigarettes Per Day: 1/2 ppd; Second Hand Exposure: No; Do You Dip or Chew Tobacco: No; Tobacco Cessation Education Requested by Patient: No Hx Alcohol Use: Yes Alcohol type: beer Hx Substance Use: No Preferred Language: Divehi Communication Ability: Effective Visual Impairment: No Limitations Medic Technician Required: No Beliefs That Will Affect Care: None marital status: Current Living Situation: Spouse current occupation: Retired How many Children do You have: 1 Feels Safe at Home: Yes Safety Concerns: Feels Safe At This Time Assistive Devices: Cane, Denture - Upper, Denture - Lower, Glasses, Raised Toilet Seat, Walker and Wheelchair Review of Systems Review of Systems: All systems reviewed & are unremarkable except as noted in HPI & below Physical Exam Constitutional: WD/WN, vitals as above Eyes: + anicteric sclerae; normal pupil size ENMT: external ear and nose normal, oropharynx normal Respiratory: normal respiratory effort, lungs clear to auscultation Cardiovascular: Rate/Rhythm: regular rate and + irregularly irregular Heart Sounds: + murmur Extremities: normal capillary refill and + pedal edema; no calf tenderness Gastrointestinal (Abdomen): Inspection/Auscultation: abdomen normal to inspection; abdomen not distended Percussion/Palpation: + abdomen tender (throughout) and abdomen soft; no guarding and abdomen not rigid Musculoskeletal: no cyanosis or clubbing, extremities motor strength 5/5 Skin: no rashes, warm and dry Neurologic: moves all extremities and awake; not confused Psychiatric: A+Ox3, euthymic affect Results & Data Results & Data Vital Signs (Past 12 Hours) Vital Signs Temp Pulse Resp BP Pulse Ox O2 Del Method 11/04/23 15:45 87 21 130/75 100 11/04/23 14:37 86 20 97 Room Air 11/04/23 13:26 36.5 C 132 H 18 123/83 86 L Room Air Laboratory Results Abnormal lab results 11/04/23 Range/Units 13:50 WBC 11.01 H (4.8-10.8) K/ul RBC 3.35 L (4.20-5.40) M/uL Hgb 9.0 L (12.0-16.0) g/dl Hct 29.2 L (37.0-47.0) % MCHC 30.8 L (32.0-36.0) g/dL RDW Std Deviation 59.7 H (36.4-46.3) fL RDW Coeff of Marlon 18.9 H (11.5-14.5) % Neut # (Auto) 8.12 H (1.40-6.50) K/uL [place] # (Auto) 0.98 H (0.11-0.59) K/uL PT 16.1 H (9.0-12.0) Seconds INR 1.5 H (0.9-1.1) APTT 44 H (21-31) Seconds Sodium 129 L (136-145) mmol/L Carbon Dioxide (21-32) mmol/L BUN/Creatinine Ratio 7.9 L (10-20) Calcium 8.0 L (8.6-10.3) mg/dl Total Bilirubin 1.3 H (0.2-1.0) mg/dl ALT 6 L (7-52) U/L Alkaline Phosphatase 157 H (34-104) U/L Albumin 2.9 L (3.4-5.0) gm/dl Amylase 19 L (25-115) U/L Lipase 7 L (11-82) U/L Diagnostic Findings CT SCAN OF THE ABDOMEN AND PELVIS WITH IV CONTRAST CLINICAL HISTORY: Lower abdominal pain. Hematochezia. COMPARISON STUDY: Abdominal CT dated 10/21/2023. TECHNIQUE: Following the IV administration of 81 cc of Optiray 320, CT scan of the abdomen and pelvis is performed from the lung bases to the proximal femora. Images are reviewed in the axial, sagittal, and coronal planes. IV contrast was administered without complication. A dose lowering technique was utilized adhering to the principles of ALARA. CT DOSE: 1310.99 mGy.cm FINDINGS: Lung bases: The heart is mildly enlarged and without pericardial effusion. Pacemaker leads are in place. Emphysematous change is noted. There is mild bibasilar scarring/atelectasis. No airspace consolidation or pleural effusion is identified. Liver: The contrast-enhanced liver is normal in size and contour. Attenuation is heterogeneous. There is no intrahepatic biliary ductal dilatation. The hepatic veins and portal veins are patent. Gallbladder: Unremarkable. Spleen: There is a subacute/evolving splenic infarct. There are calcified splenic granulomas. Pancreas: There is mild to moderate glandular atrophy. Calcifications in the pancreatic head suggesting chronic pancreatitis. There is infiltration identified around the pancreatic head and neck was present acute versus acute on chronic pancreatitis. The duct is normal in caliber. Adrenal glands: Nodular thickening of the left adrenal gland is unchanged. The right adrenal gland is normal in appearance. Kidneys: The contrast enhanced kidneys demonstrate moderate cortical atrophy and are without hydronephrosis. The kidneys enhance symmetrically. A retroverted left renal vein is incidentally noted. A 14 mm cyst is noted in the left lower pole. Foci of cortical scarring are seen in the left upper pole. Abdominal vasculature: There is advanced atherosclerotic calcification of the abdominal aorta. Suspect bilateral iliac artery stents, as well as a stent in the left superficial femoral artery. A right lower extremity arterial bypass is partially imaged. Bowel: There is a long segment of wall thickening involving the colon. This extends from the right colon to the distal descending colon. There is pericolonic infiltration, and the appearance is consistent with a nonspecific colitis. No bowel obstruction is seen. The appendix is not identified. Peritoneum: There is trace perihepatic and perisplenic ascites, as well as trace free fluid in the pelvis. No intraperitoneal free air is seen. Lymphadenopathy: Prominent upper abdominal lymph nodes are similar to previous. A node in the hilum measures up to 13 mm in short axis. Pelvic viscera: The bladder wall appears thickened. The uterus and adnexa are normal as visualized. Postsurgical change is noted in the groin bilaterally. Skeletal structures: The skeletal structures are osteopenic. There is moderate lumbosacral spondylosis. No lytic or blastic lesions are seen. IMPRESSION: 1. There is evidence of a nonspecific colitis as above which extends from the ascending colon to the distal descending colon. This could be on an infectious, inflammatory, or ischemic basis. Correlate clinically. 2. Infiltration is seen around the pancreatic head and neck. Correlate with clinical and laboratory findings for evidence of acute versus acute on chronic pancreatitis. 3. There is a subacute/evolving splenic infarct. 4. Trace abdominopelvic ascites. 5. Emphysema and advanced atherosclerotic change. 6. The bladder wall appears thickened. Correlate with clinical findings and urinalysis. 7. Additional findings as above. Medications Administered ER Medications Given: Pantoprazole 80mg IV bolus and drip ECG Rate (beats per minute): 83 Rhythm: atrial fibrillation Comparison ECG Date: from (Jul 06, 2023) Change: the following changes noted (TWI no longer evident in inferolateral leads) Code Status & VTE Plan Code Status Full PG Care Time/CCT Total # of Minutes Spent Total Time Spent with Patient: Total time spent is greater than 50% in coordination of care (as documented) at patient's floor/unit and/or counseling patient: Coding Level of Care Code 59876 INT INP/OBS CARE 3/75MIN Diagnoses Colitis K52.9 Acute gastrointestinal bleeding K92.2 Acute blood loss anemia D62 Gastroesophageal reflux disease, esophagitis presence not specified K21.9 Esophagitis presence: esophagitis presence not specified (HFpEF) heart failure with preserved ejection fraction I50.30 Chronic hyponatremia E87.1 Chronic atrial fibrillation I48.20 (4) GERD (gastroesophageal reflux disease) Esophagitis presence: esophagitis presence not specified Qualified Code(s): K21.9 - Gastro-esophageal reflux disease without esophagitis
[2023-11-04] MEDS: PANTOPRAZOLE BOLUS/DRIP IV STA (17:08)
[2023-11-04] MEDS: MoRPHine SULFATE 2 MG/ML CARP IV STA (19:39)
[2023-11-04 20:04] LABS: Hematocrit (blood only) 27.8 % (37.0-47.0); Hemoglobin 8.4 g/dl (12.0-16.0)
[2023-11-04] MEDS ORDERED: MoRPHine SULFATE 4 MG/ML 1 ML CARP\\VIAL IV PRN (22:30)
[2023-11-04] MEDS ORDERED: MoRPHine SULFATE 2 MG/ML CARP IV PRN (22:30)
[2023-11-04 22:55] LABS: Adenovirus F 40/41 PCR Not Detected (NotDetected); Astrovirus PCR Not Detected (NotDetected); Campylobacter PCR Not Detected (NotDetected); Cryptosporidium PCR Not Detected (NotDetected); Cyclospora cayetanensis PCR Not Detected (NotDetected); Entamoeba histolytica PCR Not Detected (NotDetected); Enteroaggregative E.coli(EAEC) Not Detected (NotDetected); Enteropathogenic E.coli (EPEC) Not Detected (NotDetected); Enterotoxigenic E.coli (ETEC) Not Detected (NotDetected); Giardia lamblia PCR Not Detected (NotDetected); Norovirus GI/GII PCR Not Detected (NotDetected); Plesiomonas shigelloides PCR Not Detected (NotDetected); Rotavirus A PCR Not Detected (NotDetected); Salmonella PCR Not Detected (NotDetected); Sapovirus PCR Not Detected (NotDetected); Shiga-like Toxin E.coli (STEC) Not Detected (NotDetected); Shigella/Enteroinvasive E.coli Not Detected (NotDetected); Vibrio cholerae PCR Not Detected (NotDetected); Vibrio species PCR Not Detected (NotDetected); Yersinia enterocolitica PCR Not Detected (NotDetected)
[2023-11-04] MEDS: AMITRIPTYLINE HCL 50 MG TAB PO SCH (23:09)
[2023-11-04] MEDS: ATORVASTATIN 40 MG TAB PO SCH (23:09)
[2023-11-04] MEDS: METOPROLOL SUCC 25MG EXT REL TAB PO SCH (23:10)
[2023-11-04] MEDS: SODIUM CHLORIDE 1 GM TABLET PO SCH (23:11)
[2023-11-04] MEDS: cefTRIAXone SODIUM 2,000 MG in DEXTROSE 5 % MINI-B 50 ML IV SCH (23:36)
[2023-11-05] MEDS: PREGABALIN 150 MG CAP PO SCH (00:46)
[2023-11-05] MEDS: ZOLPIDEM TARTRATE 10 MG TAB PO SCH (00:46)
[2023-11-05] MEDS: NSS + 20MEQ KCL 20 MEQ/1,000 ML BAG IV SCH (00:47)
[2023-11-05 01:08] LABS: Hematocrit (blood only) 26.9 % (37.0-47.0); Hemoglobin 8.2 g/dl (12.0-16.0)
[2023-11-05] MEDS ORDERED: HYDROmorphone INJ 0.5 MG/0.5 ML SYR IV PRN (01:27)
[2023-11-05] MEDS: metroNIDAZOLE 500 MG/100 ML BAG IV SCH (01:29)
[2023-11-05] MEDS: HYDROmorphone INJ 1 MG/ML SYRINGE IV PRN (01:46)
[2023-11-05 05:33] LABS: Basophils # (auto) 0.07 K/uL (0.00-0.20); Basophils % (auto) 0.7 %; Eosinophils # (auto) 0.21 K/uL (0.00-0.50); Eosinophils % (auto) 2.1 %; Hemoglobin 8.1 g/dl (12.0-16.0); Immature Granulocytes # (auto) 0.06 K/uL (0.01-0.20); Immature Granulocytes % (auto) 0.6 %; Lymphocytes # (auto) 1.23 K/uL (1.20-3.40); Lymphocytes % (auto) 12.2 %; Mean Corpuscular Hgb Conc 31.2 g/dL (32.0-36.0); Mean Corpuscular Volume 86.7 fL (80.0-100.0); Mean Platelet Volume 10.9 fL (9.4-12.4); Monocytes # (auto) 0.86 K/uL (0.11-0.59); Monocytes % (auto) 8.5 %; Neutrophils # (auto) 7.66 K/uL (1.40-6.50); Neutrophils % (auto) 75.9 %; Platelet Count 220 K/uL (130-400); RDW Coefficient of Variation 19.1 % (11.5-14.5); White Blood Count 10.09 K/ul (4.8-10.8)
[2023-11-05 05:40] LABS: BUN Creatinine Ratio 7.9 (10-20); Calcium 7.7 mg/dl (8.6-10.3); Creatinine Clr Calc Pharmacy 84.6 ml/min; Est GFR (African American) 96.8 ml/min; Est GFR (Non-African American) 83.5 ml/min; Potassium 4.6 mmol/L (3.5-5.1)
--- NOTE | 2023-11-05 10:20 | XRay Report ---
XR chest 1V portable CLINICAL HISTORY: PPM, GI bleed COMPARISON STUDY: Chest radiograph and chest CT July 06, 2023. FINDINGS: Left subclavian pacer is in place. There is no pneumothorax or pleural effusion. No consoli dation is present. There is no evidence for pulmonary edema. Moderate cardiomegaly is unchanged. IMPRESSION: 1. No acute cardiopulmonary findings. Stable cardiomegaly. 2. No pneumothorax. No change in appearance of the chest. ACT 112: Negative or not required by law. Electronically signed by: Diogo Johnson M.D. 11/05/2023 10:18 AM
[2023-11-05] MEDS: BUMETANIDE 1 MG TAB PO SCH (10:21)
--- NOTE | 2023-11-05 13:58 | Gastrointestinal Consultation ---
Date of Consultation November 05, 2023 Assessment & Plan (1) Colitis: She has colitis by CT scan and I suspect it is an acute process. I need to find her previous colonoscopy report and see when it was done. Colitis is not in typical distribution for ischemia but it is possible. She also has evidence of inflammation surrounding her pancreas so it is possible her abdominal pain is related to that. She has a history of pancreatic cyst so she may have acute on chronic pancreatitis. I am not exactly clear as to what is going on because of her poor ability to relate things in a clear historical manner. Will follow and make recommendations as I make further visits. History of Present Illness Reason for Consultation: diarrhea, rectal bleeding Attending Physician: Ousmane Dias MD History of Present Illness 63 year old female who gives a very confusing history. She is here because her "abdominal pain got worse". She tells me that her pain has been present for 3-4 months but just "got worse". She does not describe the pain at all other than it is a pain. She said she had diarrhea but doesn't have any now. She also says she has seen blood in her bowel movements. She has had a colonoscopy but doesn't remember who did it. She tells me her global sales director is Dr. Maya. When I told her that he was a vascular surgeon she says he is who she sees for her stomach Allergies Allergy/AdvReac Type Severity Reaction Status Date / Time adhesive Allergy Severe SEVERE Verified 11/04/23 14:44 SKIN IRRITATION guanfacine Allergy Intermediate BP PROBLEMS Verified 11/04/23 14:44 nifedipine Allergy Intermediate BP PROBLEMS Verified 11/04/23 14:44 acetaminophen AdvReac Severe LIVER Verified 11/04/23 14:44 DAMAGE-DUE TO FAILURE amoxicillin AdvReac Severe LIVER Verified 11/04/23 14:44 FAILURE clavulanic acid AdvReac Severe LIVER Verified 11/04/23 14:44 FAILURE Home Medications Medication Instructions Recorded Confirmed Type atorvastatin 80 mg tablet (Lipitor) 80 mg PO HS 06/06/19 11/04/23 History aspirin 81 mg tablet,delayed 81 mg PO QAM 12/19/19 11/04/23 History release (Tj Low Dose Aspirin) pregabalin 300 mg capsule 300 mg PO BID 10/24/21 11/04/23 History zolpidem 10 mg tablet 10 mg PO HS 10/24/21 11/04/23 History rivaroxaban 20 mg tablet (Xarelto) 20 mg PO HS 06/11/22 11/04/23 History amitriptyline 50 mg tablet 50 mg PO HS 09/11/22 11/04/23 History sennosides 8.6 mg-docusate sodium 2 tab PO QAM PRN constipation #60 04/18/23 11/04/23 Rx 50 mg tablet (Senokot-S) tabs metoprolol succinate 25 mg 25 mg PO BID 04/25/23 11/04/23 History tablet,extended release 24 hr pantoprazole 40 mg tablet,delayed 40 mg PO QAM #120 tabs 06/24/23 11/04/23 Rx release (Protonix) bumetanide 2 mg tablet 2 mg PO BID #180 tabs 08/11/23 11/04/23 Rx sodium chloride 1,000 mg soluble 1,000 mg PO BID #180 tabs 08/11/23 11/04/23 Rx tablet potassium chloride 20 mEq 40 meq (2 x 20 mEq) PO BID #120 10/04/23 11/04/23 Rx tablet,extended release tabs oxycodone 5 mg capsule 5 mg PO TID PRN moderate-severe 11/04/23 11/04/23 History pain Patient History Medical History 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 Zarate ([facility]) HTN (hypertension) Hx of gastric ulcer Neuropathy Hx of pancreatitis Chronic. Due to heavy alcohol consumption per records Anxiety and depression DVT (deep venous thrombosis) 40+ years ago Hx of migraines Pacemaker Dual-chamber, implanted 2018 (high grade AVB/sinus node dysfunction), Med tronic, follows with Dr. Zarate GERD (gastroesophageal reflux disease) Hyponatremia Chronic issue- follows with nephrology Chronic pain syndrome Tobacco use disorder Paroxysmal atrial fibrillation REASON FOR XARELTO Dyslipidemia PVD (peripheral vascular disease) S/p left BKA Surgical History Hx of oral surgery (09/17/22) Debridement Necrotic Bone and Soft Tissue and Associated Infected Periodontally Infected Teeth to Allow Mitral Valve Replacement (Lower Jaw)(Not Applicable) - Ha Champion, [place] Hx of vascular surgery 11/2019, with dr maya, [facility], replaced 2 veins with bovine veins in Rt leg History of surgery (~07/30/21) Attempt for MitraClip ([facility]) was performed but unsuccessful (07/2021); currently being seen in [facility] for a trial for valve replacement History of esophagogastroduodenoscopy (EGD) History of cardiac cath (~04/24/21) 03/2021@ [facility] with Dr. Carbajal, no evidence of epicardial CAD S/P angiogram of extremity right lower leg S/P femoral-popliteal bypass surgery History of amputation REVISION OF AMPUTATION LLE History of colonoscopy History of tooth extraction Status post below knee amputation of left lower extremity Status post ORIF of fracture of ankle ORIF closed displaced trimalleolar left ankle fracture (2016) H/O vascular surgery Bilateral femoral endarterectomy with iliac stent (2016) History of appendectomy Family History Unknown No problems noted. Father Family history of diabetes mellitus Other No family history of adverse response to anesthesia Social History Smoking Status: Current every day smoker Tobacco Type: Cigarettes Cigarettes Per Day: 1/2 ppd; Second Hand Exposure: No; Do You Dip or Chew Tobacco: No; Tobacco Cessation Education Requested by Patient: No Hx Alcohol Use: Yes Alcohol type: beer Hx Substance Use: No Preferred Language: Romanian Communication Ability: Effective Visual Impairment: No Limitations Keno Attendant Required: No Beliefs That Will Affect Care: None marital status: Current Living Situation: Spouse current occupation: Retired How many Children do You have: 1 Feels Safe at Home: Yes Safety Concerns: Feels Safe At This Time Assistive Devices: Cane, Denture - Upper, Denture - Lower, Glasses, Raised Toilet Seat, Walker and Wheelchair Review of Systems Review of Systems: All systems reviewed & are unremarkable except as noted in HPI & below Physical Exam Constitutional: + ill appearing and + obese Neck: trachea midline, no thyromegaly Respiratory: normal respiratory effort, lungs clear to auscultation Cardiovascular: RRR, no murmur, no edema Gastrointestinal (Abdomen): Inspection/Auscultation: abdomen normal to inspection Percussion/Palpation: + abdomen tender and abdomen soft; no hepatosplenomegaly Results & Data Vital Signs (Past 12 Hours) Vital Signs Temp Pulse Pulse Resp BP BP Pulse Ox 11/05/23 11:42 38.1 C H 105 H 19 156/58 H 94 11/05/23 09:24 11/05/23 08:00 89 11/05/23 07:48 37.4 C 94 H 19 105/60 93 11/05/23 02:05 O2 Del Method 11/05/23 11:42 Room Air 11/05/23 09:24 Room Air 11/05/23 08:00 11/05/23 07:48 Room Air 11/05/23 02:05 Room Air Laboratory Results 11/05/23 11/05/23 11/05/23 Range/Units 09:59 04:45 00:49 WBC 10.09 (4.8-10.8) K/ul RBC 3.00 L (4.20-5.40) M/uL Hgb 8.1 L 8.2 L (12.0-16.0) g/dl Hct 26.0 L 26.9 L (37.0-47.0) % MCV 86.7 (80.0-100.0) fL MCH 27.0 (25.0-34.0) pg MCHC 31.2 L (32.0-36.0) g/dL RDW Std Deviation 59.0 H (36.4-46.3) fL RDW Coeff of Marlon 19.1 H (11.5-14.5) % Plt Count 220 (130-400) K/uL MPV 10.9 (9.4-12.4) fL Immature Gran % (Auto) 0.6 % Neut % (Auto) 75.9 % Lymph % (Auto) 12.2 % [place]osa % (Auto) 8.5 % Eos % (Auto) 2.1 % Baso % (Auto) 0.7 % Neut # (Auto) 7.66 H (1.40-6.50) K/uL Lymph # (Auto) 1.23 (1.20-3.40) K/uL [place] # (Auto) 0.86 H (0.11-0.59) K/uL Eos # (Auto) 0.21 (0.00-0.50) K/uL Baso # (Auto) 0.07 (0.00-0.20) K/uL Immature Gran # (Auto) 0.06 (0.01-0.20) K/uL PT (9.0-12.0) Seconds INR (0.9-1.1) APTT (21-31) Seconds PTT Ratio Sodium 129 L (136-145) mmol/L Potassium 4.6 (3.5-5.1) mmol/L Chloride 104 (98-107) mmol/L Carbon Dioxide 20 L (21-32) mmol/L Anion Gap 5 (3-11) BUN 6 (6-23) mg/dl Creatinine 0.76 (0.6-1.2) mg/dl Est Cr Clr Drug Dosing 84.6 Est GFR ( Amer) 96.8 ml/min Est GFR (Non-Af Amer) 83.5 ml/min BUN/Creatinine Ratio 7.9 L (10-20) Glucose 85 (70-99(Fasting)) mg/dl Osmolality 272 L (280-300) mOsm/kg Lactate (0.4-2.0) mmol/L Calcium 7.7 L (8.6-10.3) mg/dl Total Bilirubin (0.2-1.0) mg/dl AST (13-39) U/L ALT (7-52) U/L Alkaline Phosphatase (34-104) U/L Total Protein (6.0-8.3) gm/dl Albumin (3.4-5.0) gm/dl Globulin (2.5-4.0) gm/dl Albumin/Globulin Ratio (0.9-2) Amylase (25-115) U/L Lipase (11-82) U/L Stl C. cayetanensis PCR (NotDetected) Stool Rotavirus A PCR (NotDetected) Stl Adenov F 40/41 PCR (NotDetected) Stool Astrovirus (PCR) (NotDetected) Stool Campylobacter PCR (NotDetected) Stl C. diff Tox B Gene (Neg) Stool Cryptosporidium PCR (NotDetected) Stl E.coli Shiga Tox PCR (NotDetected) Stl Enterotoxigenic E PCR (NotDetected) Stool EPEC (PCR) (NotDetected) Stool EAEC (PCR) (NotDetected) Stl E. histolytica PCR (NotDetected) Stool Giardia Lamblia PCR (NotDetected) Stool Salmonella PCR (NotDetected) Stool Sapovirus (PCR) (NotDetected) Stl P. shigelloides PCR (NotDetected) Stl Shigella/EIEC PCR (NotDetected) St Y.enterocolitica PCR (NotDetected) Stool Vibrio (PCR) (NotDetected) Stl Vibrio cholerae PCR (NotDetected) Stl Norovirus GI/GII PCR (NotDetected) Blood Type Antibody Screen 11/04/23 11/04/23 11/04/23 Range/Units 21:10 19:25 13:50 WBC 11.01 H (4.8-10.8) K/ul RBC 3.35 L (4.20-5.40) M/uL Hgb 8.4 L 9.0 L (12.0-16.0) g/dl Hct 27.8 L 29.2 L (37.0-47.0) % MCV 87.2 (80.0-100.0) fL MCH 26.9 (25.0-34.0) pg MCHC 30.8 L (32.0-36.0) g/dL RDW Std Deviation 59.7 H (36.4-46.3) fL RDW Coeff of Marlon 18.9 H (11.5-14.5) % Plt Count 247 (130-400) K/uL MPV 11.4 (9.4-12.4) fL Immature Gran % (Auto) 0.9 % Neut % (Auto) 73.8 % Lymph % (Auto) 14.3 % [place] % (Auto) 8.9 % Eos % (Auto) 1.5 % Baso % (Auto) 0.6 % Neut # (Auto) 8.12 H (1.40-6.50) K/uL Lymph # (Auto) 1.57 (1.20-3.40) K/uL [place] # (Auto) 0.98 H (0.11-0.59) K/uL Eos # (Auto) 0.17 (0.00-0.50) K/uL Baso # (Auto) 0.07 (0.00-0.20) K/uL Immature Gran # (Auto) 0.10 (0.01-0.20) K/uL PT 16.1 H (9.0-12.0) Seconds INR 1.5 H (0.9-1.1) APTT 44 H (21-31) Seconds PTT Ratio 1.6 Sodium 129 L (136-145) mmol/L Potassium 5.0 (3.5-5.1) mmol/L Chloride 103 (98-107) mmol/L Carbon Dioxide 21 (21-32) mmol/L Anion Gap 5 (3-11) BUN 6 (6-23) mg/dl Creatinine 0.76 (0.6-1.2) mg/dl Est Cr Clr Drug Dosing Not Reportable Est GFR ( Amer) 96.8 ml/min Est GFR (Non-Af Amer) 83.5 ml/min BUN/Creatinine Ratio 7.9 L (10-20) Glucose 99 (70-99(Fasting)) mg/dl Osmolality (280-300) mOsm/kg Lactate 1.4 (0.4-2.0) mmol/L Calcium 8.0 L (8.6-10.3) mg/dl Total Bilirubin 1.3 H (0.2-1.0) mg/dl AST 16 (13-39) U/L ALT 6 L (7-52) U/L Alkaline Phosphatase 157 H (34-104) U/L Total Protein 6.3 (6.0-8.3) gm/dl Albumin 2.9 L (3.4-5.0) gm/dl Globulin 3.4 (2.5-4.0) gm/dl Albumin/Globulin Ratio 0.9 (0.9-2) Amylase 19 L (25-115) U/L Lipase 7 L (11-82) U/L Stl C. cayetanensis PCR Not Detected (NotDetected) Stool Rotavirus A PCR Not Detected (NotDetected) Stl Adenov F 40/41 PCR Not Detected (NotDetected) Stool Astrovirus (PCR) Not Detected (NotDetected) Stool Campylobacter PCR Not Detected (NotDetected) Stl C. diff Tox B Gene Negative Cdiff Gene (Neg) Stool Cryptosporidium PCR Not Detected (NotDetected) Stl E.coli Shiga Tox PCR Not Detected (NotDetected) Stl Enterotoxigenic E PCR Not Detected (NotDetected) Stool EPEC (PCR) Not Detected (NotDetected) Stool EAEC (PCR) Not Detected (NotDetected) Stl E. histolytica PCR Not Detected (NotDetected) Stool Giardia Lamblia PCR Not Detected (NotDetected) Stool Salmonella PCR Not Detected (NotDetected) Stool Sapovirus (PCR) Not Detected (NotDetected) Stl P. shigelloides PCR Not Detected (NotDetected) Stl Shigella/EIEC PCR Not Detected (NotDetected) St Y.enterocolitica PCR Not Detected (NotDetected) Stool Vibrio (PCR) Not Detected (NotDetected) Stl Vibrio cholerae PCR Not Detected (NotDetected) Stl Norovirus GI/GII PCR Not Detected (NotDetected) Blood Type O Positive Antibody Screen NEGATIVE Diagnostic Findings Abdomen/Pelvis CT 11/04/23 14:45 CT SCAN OF THE ABDOMEN AND PELVIS WITH IV CONTRAST CLINICAL HISTORY: Lower abdominal pain. Hematochezia. COMPARISON STUDY: Abdominal CT dated 10/21/2023. TECHNIQUE: Following the IV administration of 81 cc of Optiray 320, CT scan of the abdomen and pelvis is performed from the lung bases to the proximal femora. Images are reviewed in the axial, sagittal, and coronal planes. IV contrast was administered without complication. A dose lowering technique was utilized adhering to the principles of ALARA. CT DOSE: 1310.99 mGy.cm FINDINGS: Lung bases: The heart is mildly enlarged and without pericardial effusion. Pacemaker leads are in place. Emphysematous change is noted. There is mild bibasilar scarring/atelectasis. No airspace consolidation or pleural effusion is identified. Liver: The contrast-enhanced liver is normal in size and contour. Attenuation is heterogeneous. There is no intrahepatic biliary ductal dilatation. The hepatic veins and portal veins are patent. Gallbladder: Unremarkable. Spleen: There is a subacute/evolving splenic infarct. There are calcified splenic granulomas. Pancreas: There is mild to moderate glandular atrophy. Calcifications in the pancreatic head suggesting chronic pancreatitis. There is infiltration identified around the pancreatic head and neck was present acute versus acute on chronic pancreatitis. The duct is normal in caliber. Adrenal glands: Nodular thickening of the left adrenal gland is unchanged. The right adrenal gland is normal in appearance. Kidneys: The contrast enhanced kidneys demonstrate moderate cortical atrophy and are without hydronephrosis. The kidneys enhance symmetrically. A retroverted left renal vein is incidentally noted. A 14 mm cyst is noted in the left lower pole. Foci of cortical scarring are seen in the left upper pole. Abdominal vasculature: There is advanced atherosclerotic calcification of the abdominal aorta. Suspect bilateral iliac artery stents, as well as a stent in the left superficial femoral artery. A right lower extremity arterial bypass is partially imaged. Bowel: There is a long segment of wall thickening involving the colon. This extends from the right colon to the distal descending colon. There is pericolonic infiltration, and the appearance is consistent with a nonspecific colitis. No bowel obstruction is seen. The appendix is not identified. Peritoneum: There is trace perihepatic and perisplenic ascites, as well as trace free fluid in the pelvis. No intraperitoneal free air is seen. Lymphadenopathy: Prominent upper abdominal lymph nodes are similar to previous. A node in the hilum measures up to 13 mm in short axis. Pelvic viscera: The bladder wall appears thickened. The uterus and adnexa are normal as visualized. Postsurgical change is noted in the groin bilaterally. Skeletal structures: The skeletal structures are osteopenic. There is moderate lumbosacral spondylosis. No lytic or blastic lesions are seen. IMPRESSION: 1. There is evidence of a nonspecific colitis as above which extends from the ascending colon to the distal descending colon. This could be on an infectious, inflammatory, or ischemic basis. Correlate clinically. 2. Infiltration is seen around the pancreatic head and neck. Correlate with clinical and laboratory findings for evidence of acute versus acute on chronic pancreatitis. 3. There is a subacute/evolving splenic infarct. 4. Trace abdominopelvic ascites. 5. Emphysema and advanced atherosclerotic change. 6. The bladder wall appears thickened. Correlate with clinical findings and urinalysis. 7. Additional findings as above. ACT 112: Negative or not required by law. Electronically signed by: Angus Marte M.D. 11/04/2023 3:49 PM Chest X-Ray 11/05/23 09:42 XR chest 1V portable CLINICAL HISTORY: PPM, GI bleed COMPARISON STUDY: Chest radiograph and chest CT July 06, 2023. FINDINGS: Left subclavian pacer is in place. There is no pneumothorax or pleural effusion. No consolidation is present. There is no evidence for pulmonary edema. Moderate cardiomegaly is unchanged. IMPRESSION: 1. No acute cardiopulmonary findings. Stable cardiomegaly. 2. No pneumothorax. No change in appearance of the chest. ACT 112: Negative or not required by law. Electronically signed by: Diogo Johnson M.D. 11/05/2023 10:18 AM
--- NOTE | 2023-11-05 15:24 | Hospitalist Progress Note ---
Date of Service November 05, 2023 Assessment & Plan (1) Colitis: Plan: Nonspecific with some evidence of lower GI bleeding. Appreciate GI consultation and recommendations. She currently is on Rocephin and Flagyl, day 1. Serial H&H ordered. Will allow clear liquid diet at this time. C. difficile evaluation is negative (2) Acute gastrointestinal bleeding: Plan: Lower GI source. She has some evidence of acute blood loss anemia. No transfusion needed at this time. Xarelto was on hold. Serial H&H ordered (3) Acute blood loss anemia: Plan: Monitor serial hemoglobin levels. Transfuse as necessary. (4) GERD (gastroesophageal reflux disease): Plan: Continue parenteral Protonix therapy. (5) (HFpEF) heart failure with preserved ejection fraction: Plan: Stable. Monitor intake and output. No current exacerbation (6) Chronic hyponatremia: Plan: Mild. Await serum osmolarity results. Currently asymptomatic (7) Chronic atrial fibrillation: Plan: Controlled rate. Xarelto is on hold. Continue metoprolol. Telemetry Plan Hopeful discharge to home soon Admission and Anticipated Discharge Date Admission Date: November 04, 2023 Subjective Alert and oriented. She is a very poor historian. GI consultation reviewed. No indication for endoscopy at this point. Will monitor serial H&H. Clear liquids ordered. Will continue IV Protonix twice daily but not in a continuous drip form. Sodium is mildly low and will be followed. She is on intravenous Rocephin and Flagyl for now. Review of Systems 2 Review of Systems: Constitutional-no fever or chills ENT-no blurred vision, no double vision, no epistaxis, no sore throat Respiratory-no cough, no wheezing, no shortness of breath Cardiac-no palpitations, no chest pain, no syncope GI-no nausea, vomiting. Bloody stool. Diffuse abdominal discomfort -no urinary retention, no urinary incontinence, no dysuria, no hematuria Musculoskeletal-no joint pain, no muscle tenderness Skin-no bruising, no rashes, no pruritus Neuro-no isolated weakness, no paresthesia, no weakness Psych-no depression, no anxiety Physical Exam 2 Physical Exam: General-alert and oriented x3, no fever, no chills HEENT-head atraumatic and normocephalic, pupils equal and reactive to light, extraocular muscles intact Neck-no lymphadenopathy or thyromegaly, trachea midline Chest-clear to auscultation. No rales wheezing or rhonchi Cardiac-regular rate and rhythm, normal S1 and S2, no murmurs Abdomen-normal bowel sounds, no hepatosplenomegaly. Left-sided tenderness to palpation. No masses. No rebound or guarding Extremities-no cyanosis, clubbing, or edema Neuro-cranial nerves II through XII intact, motor and sensory function within normal limits, strength symmetrical, no focal deficits Psych-normal affect, normal mood Results & Data Results & Data Vital Signs (Past 12 Hours) Vital Signs Temp Pulse Pulse Resp BP BP Pulse Ox 11/05/23 15:15 108 H 11/05/23 11:42 38.1 C H 105 H 19 156/58 H 94 11/05/23 09:24 11/05/23 08:00 89 11/05/23 07:48 37.4 C 94 H 19 105/60 93 O2 Del Method 11/05/23 15:15 11/05/23 11:42 Room Air 11/05/23 09:24 Room Air 11/05/23 08:00 11/05/23 07:48 Room Air Laboratory Results 11/05/23 04:45 11/05/23 04:45 PG Care Time/CCT Total # of Minutes Spent Total Time Spent with Patient: Total time spent is greater than 50% in coordination of care (as documented) at patient's floor/unit and/or counseling patient: Coding Level of Care Code 16446 SUB INP/OBS CARE 3/50MIN Diagnoses Colitis K52.9 Acute gastrointestinal bleeding K92.2 Acute blood loss anemia D62 Gastroesophageal reflux disease, esophagitis presence not specified K21.9 Esophagitis presence: esophagitis presence not specified (HFpEF) heart failure with preserved ejection fraction I50.30 Chronic hyponatremia E87.1 Chronic atrial fibrillation I48.20 (4) GERD (gastroesophageal reflux disease) Esophagitis presence: esophagitis presence not specified Qualified Code(s): K 21.9 - Gastro-esophageal reflux disease without esophagitis
[2023-11-05 15:49] LABS: Hematocrit (blood only) 25.8 % (37.0-47.0); Hemoglobin 8.1 g/dl (12.0-16.0)
[2023-11-05] MEDS: PANTOprazole 40 MG in SYRINGE 0 ML IV SCH (20:21)
[2023-11-05] MEDS: ONDANSETRON INJ 2 MG/ML 2 ML VIAL IV STA (20:27)
[2023-11-06 05:51] LABS: Basophils # (auto) 0.04 K/uL (0.00-0.20); Basophils % (auto) 0.5 %; Eosinophils # (auto) 0.09 K/uL (0.00-0.50); Eosinophils % (auto) 1.1 %; Hematocrit (blood only) 26.9 % (37.0-47.0); Hemoglobin 8.2 g/dl (12.0-16.0); Immature Granulocytes # (auto) 0.04 K/uL (0.01-0.20); Immature Granulocytes % (auto) 0.5 %; Lymphocytes # (auto) 0.32 K/uL (1.20-3.40); Lymphocytes % (auto) 3.7 %; Mean Corpuscular Hemoglobin 26.6 pg (25.0-34.0); Mean Corpuscular Hgb Conc 30.5 g/dL (32.0-36.0); Mean Corpuscular Volume 87.3 fL (80.0-100.0); Mean Platelet Volume 11.2 fL (9.4-12.4); Monocytes # (auto) 0.85 K/uL (0.11-0.59); Neutrophils % (auto) 84.2 %; Platelet Count 175 K/uL (130-400); RDW Coefficient of Variation 19.2 % (11.5-14.5); RDW Standard Deviation 60.2 fL (36.4-46.3); Red Blood Count 3.08 M/uL (4.20-5.40); White Blood Count 8.54 K/ul (4.8-10.8)
[2023-11-06 06:05] LABS: BUN Creatinine Ratio 7.9 (10-20); Calcium 7.9 mg/dl (8.6-10.3); Creatinine Clr Calc Pharmacy 72.3 ml/min; Est GFR (African American) 79.9 ml/min; Potassium 4.6 mmol/L (3.5-5.1)
--- NOTE | 2023-11-06 10:17 | Gastroenterology Progress Note ---
Date of Service November 06, 2023 Assessment & Plan (1) Colitis: Plan: She has colitis and possibly pancreatitis. She is improving if she is being truthful when she says she is better. Nothing more we can do other than continue antibiotics and let pancreatitis resolve. Admission and Anticipated Discharge Date Admission Date: November 04, 2023 Subjective Doesn't feel good and wants to go home. Says still sick at stomach and still has stomach pain. Although she does admit she is better than before. Doesn't answer the questions she is asked so history still somewhat difficult to obtain. Labs are stable Physical Exam Physical Exam: She looks stable Constitutional: WD/WN, vitals as above Results & Data Vital Signs (Past 12 Hours) Vital Signs Temp Pulse Resp BP Pulse Ox O2 Del Method 11/06/23 07:46 37.5 C 96 H 18 99/69 L 93 Room Air 11/06/23 03:04 36.6 C 96 H 18 105/69 95 Room Air 11/06/23 00:26 Room Air 11/05/23 23:00 36.6 C 104 H 18 108/66 94 Room Air
--- NOTE | 2023-11-06 14:27 | Hospitalist Progress Note ---
Date of Service November 06, 2023 Assessment & Plan (1) Colitis: Plan: Nonspecific with some evidence of lower GI bleeding. Appreciate GI consultation and recommendations. Antibiotics have been discontinued. No evidence of bacterial infection. Diet advanced to full liquids. C. difficile evaluation is negative (2) Acute gastrointestinal bleeding: Plan: Lower GI source. She has some evidence of acute blood loss anemia. No transfusion needed at this time. Xarelto is on hold. Serial H&H ordered (3) Acute blood loss anemia: Plan: Monitor serial hemoglobin levels. Transfuse as necessary. (4) GERD (gastroesophageal reflux disease): Plan: Continue Protonix therapy. (5) (HFpEF) heart failure with preserved ejection fraction: Plan: Stable. Monitor intake and output. No current exacerbation (6) Chronic hyponatremia: Plan: Mild. Serum osmolarity 272. Currently asymptomatic (7) Chronic atrial fibrillation: Plan: Controlled rate. Xarelto is on hold. Continue metoprolol. Telemetry Plan To be determined. OT and PT assessments requested. Admission and Anticipated Discharge Date Admission Date: November 04, 2023 Subjective Alert. No distress. She does not appear to be well-motivated to help herself. Diet advanced to full liquids and IV fluids taper down. Hemoglobin stable at 8.2. Will discontinue IV antibiotics. Sodium slightly low at 130 and asymptomatic. Xarelto remains on hold. OT and PT assessments have been requested Review of Systems 2 Review of Systems: Constitutional-no fever or chills ENT-no blurred vision, no double vision, no epistaxis, no sore throat Respiratory-no cough, no wheezing, no shortness of breath Cardiac-no palpitations, no chest pain, no syncope GI-no nausea, vomiting. Bloody stool. Diffuse abdominal discomfort -no urinary retention, no urinary incontinence, no dysuria, no hematuria Musculoskeletal-no joint pain, no muscle tenderness. Left BKA status Skin-no bruising, no rashes, no pruritus Neuro-no isolated weakness, no paresthesia, no weakness Psych-no depression, no anxiety Physical Exam 2 Physical Exam: General-alert and oriented x3, no fever, no chills HEENT-head atraumatic and normocephalic, pupils equal and reactive to light, extraocular muscles intact Neck-no lymphadenopathy or thyromegaly, trachea midline Chest-clear to auscultation. No rales wheezing or rhonchi Cardiac-regular rate and rhythm, normal S1 and S2, no murmurs Abdomen-normal bowel sounds, no hepatosplenomegaly. Left-sided tenderness to palpation. No masses. No rebound or guarding Extremities-no cyanosis, clubbing, or edema of the right lower extremity. Left BKA status Neuro-cranial nerves II through XII intact, motor and sensory function within normal limits, strength symmetrical, no focal deficits Psych-normal affect, normal mood Results & Data Results & Data Vital Signs (Past 12 Hours) Vital Signs Temp Pulse Resp BP Pulse Ox O2 Del Method 11/06/23 11:55 36.7 C 77 18 105/67 96 Room Air 11/06/23 11:10 92 H 17 119/82 94 Room Air 11/06/23 07:46 37.5 C 96 H 18 99/69 L 93 Room Air 11/06/23 03:04 36.6 C 96 H 18 105/69 95 Room Air Laboratory Results 11/06/23 04:44 11/06/23 04:44 PG Care Time/CCT Total # of Minutes Spent Total Time Spent with Patient: Total time spent is greater than 50% in coordination of care (as documented) at patient's floor/unit and/or counseling patient: Coding Level of Care Code 17969 SUB INP/OBS CARE 3/50MIN Diagnoses Colitis K52.9 Acute gastrointestinal bleeding K92.2 Acute blood loss anemia D62 Gastroesophageal reflux disease, esophagitis presence not specified K21.9 Esophagitis presence: esophagitis presence not specified (HFpEF) heart failure with preserved ejection fraction I50.30 Chronic hyponatremia E87.1 Chronic atrial fibrillation I48.20 (4) GERD (gastroesophageal reflux disease) Esophagitis presence: esophagitis presence not specified Qualified Code(s): K 21.9 - Gastro-esophageal reflux disease without esophagitis
[2023-11-07 06:07] LABS: Basophils # (auto) 0.04 K/uL (0.00-0.20); Basophils % (auto) 0.6 %; Eosinophils # (auto) 0.17 K/uL (0.00-0.50); Eosinophils % (auto) 2.5 %; Hematocrit (blood only) 25.6 % (37.0-47.0); Hemoglobin 7.8 g/dl (12.0-16.0); Immature Granulocytes # (auto) 0.03 K/uL (0.01-0.20); Immature Granulocytes % (auto) 0.4 %; Lymphocytes # (auto) 0.76 K/uL (1.20-3.40); Lymphocytes % (auto) 11.3 %; Mean Corpuscular Hemoglobin 26.6 pg (25.0-34.0); Mean Corpuscular Hgb Conc 30.5 g/dL (32.0-36.0); Mean Corpuscular Volume 87.4 fL (80.0-100.0); Mean Platelet Volume 11.4 fL (9.4-12.4); Monocytes # (auto) 0.74 K/uL (0.11-0.59); Neutrophils # (auto) 5.01 K/uL (1.40-6.50); Neutrophils % (auto) 74.2 %; Platelet Count 158 K/uL (130-400); RDW Coefficient of Variation 19.1 % (11.5-14.5); RDW Standard Deviation 61.4 fL (36.4-46.3); Red Blood Count 2.93 M/uL (4.20-5.40); White Blood Count 6.75 K/ul (4.8-10.8)
[2023-11-07 06:18] LABS: BUN Creatinine Ratio 10.7 (10-20); Calcium 7.7 mg/dl (8.6-10.3); Creatinine Clr Calc Pharmacy 72.3 ml/min; Est GFR (African American) 85.7 ml/min
[2023-11-07 06:52] LABS: Echinocytes 1+; Ovalocytes 1+
[2023-11-07] MEDS ORDERED: SODIUM CHLORIDE 0.9% 250 ML IV PRN (10:41)
[2023-11-07 11:11] LABS: Hematocrit (blood only) 24.4 % (37.0-47.0)
--- NOTE | 2023-11-07 14:41 | Hospitalist Progress Note ---
Date of Service November 07, 2023 Assessment & Plan (1) Colitis: Plan: Nonspecific with some evidence of lower GI bleeding. Appreciate GI consultation and recommendations. Antibiotics have been discontinued. No evidence of bacterial infection. Diet advanced to regular. C. difficile evaluation is negative (2) Toxic encephalopathy: Plan: Appears to be medication related. Lyrica and zolpidem have been discontinued. Stat ABG is pending to rule out CO2 narcosis (3) Acute gastrointestinal bleeding: Plan: Lower GI source. She is evidence of acute blood loss anemia. Hemoglobin is down to 7.8. She has agreed to 1 unit packed red blood cell transfusion. Repeat hemoglobin later today. Xarelto is on hold. (4) Acute blood loss anemia: Plan: Monitor serial hemoglobin levels. Transfuse as necessary. Hemoglobin is down to 7.8 today, November 07. She has agreed to 1 unit packed red blood cell transfusion (5) GERD (gastroesophageal reflux disease): Plan: Continue Protonix therapy. (6) (HFpEF) heart failure with preserved ejection fraction: Plan: Stable. Monitor intake and output. No current exacerbation (7) Chronic hyponatremia: Plan: Mild. Serum osmolarity 272. Currently asymptomatic (8) Chronic atrial fibrillation: Plan: Controlled rate. Xarelto is on hold. Continue metoprolol. Telemetry Plan To be determined. OT and PT assessments requested. Admission and Anticipated Discharge Date Admission Date: November 04, 2023 Subjective Lethargic probably from medications. Lyrica and zolpidem have been stopped. Stat ABGs ordered. She has given consent for 1 unit packed red blood cell transfusion for hemoglobin of 7.8. Will repeat hemoglobin this afternoon at 4 PM. Review of Systems 2 Review of Systems: The patient is lethargic and unable to answer any questions regarding review of systems Physical Exam 2 Physical Exam: General-lethargic. Arousable. Able to converse. HEENT-head atraumatic and normocephalic, pupils equal and reactive to light, extraocular muscles intact Neck-no lymphadenopathy or thyromegaly, trachea midline Chest-clear to auscultation. No rales, wheezing or rhonchi Cardiac-regular rate and rhythm, normal S1 and S2, no murmurs Abdomen-normal bowel sounds, no hepatosplenomegaly. Left-sided tenderness to palpation. No masses. No rebound or guarding Extremities-no cyanosis, clubbing, or edema of the right lower extremity. Left BKA status Neuro-cranial nerves II through XII intact, motor and sensory function within normal limits, strength symmetrical, no focal deficits Psych-cannot assess due to lethargy Results & Data Results & Data Vital Signs (Past 12 Hours) Vital Signs Temp Pulse Pulse Resp BP BP BP 11/07/23 13:50 36.2 C L 78 17 97/63 L 11/07/23 13:20 36.5 C 80 17 100/68 11/07/23 13:04 36.4 C L 88 18 117/74 11/07/23 12:43 36.4 C L 92 H 18 108/66 11/07/23 11:25 36.8 C 88 19 102/64 11/07/23 08:44 111/78 11/07/23 08:17 36.8 C 80 18 97/61 L 11/07/23 04:00 36.5 C 75 18 115/65 Pulse Ox O2 Del Method 11/07/23 13:50 100 11/07/23 13:20 100 11/07/23 13:04 97 11/07/23 12:43 96 11/07/23 11:25 98 Room Air 11/07/23 08:44 11/07/23 08:17 97 Room Air 11/07/23 04:00 95 Room Air Laboratory Results 11/07/23 10:52 11/07/23 05:01 PG Care Time/CCT Total # of Minutes Spent Total Time Spent with Patient: Total time spent is greater than 50% in coordination of care (as documented) at patient's floor/unit and/or counseling patient: Coding Level of Care Code 09223 SUB INP/OBS CARE 3/50MIN Diagnoses Colitis K52.9 Toxic encephalopathy G92.9 Acute gastrointestinal bleeding K92.2 Acute blood loss anemia D62 Gastroesophageal reflux disease, esophagitis presence not specified K21.9 Esophagitis presence: esophagitis presence not specified (HFpEF) heart failure with preserved ejection fraction I50.30 Chronic hyponatremia E87.1 Chronic atrial fibrillation I48.20 (5) GERD (gastroesophageal reflux disease) Esophagitis presence: esophagitis presence not specified Qualified Code(s): K 21.9 - Gastro-esophageal reflux disease without esophagitis
[2023-11-07 16:42] LABS: Base Excess ABG -7.6 mEq/L (-9-1.8); HCO3 ABG 16 mmol/L (19-24); Oxygen Saturation ABG 98.3 % (90-95); PCO2 ABG 27 mmHg (35-46); PO2 ABG 85 mmHg (80-95); pH ABG 7.38 (7.35-7.45)
[2023-11-07 16:43] LABS: Allen Test Pos (Pos)
[2023-11-08 05:23] LABS: Basophils # (auto) 0.04 K/uL (0.00-0.20); Basophils % (auto) 0.5 %; Eosinophils # (auto) 0.22 K/uL (0.00-0.50); Eosinophils % (auto) 2.9 %; Hematocrit (blood only) 26.7 % (37.0-47.0); Hemoglobin 8.3 g/dl (12.0-16.0); Immature Granulocytes # (auto) 0.05 K/uL (0.01-0.20); Immature Granulocytes % (auto) 0.7 %; Lymphocytes # (auto) 1.13 K/uL (1.20-3.40); Lymphocytes % (auto) 14.8 %; Mean Corpuscular Hemoglobin 26.9 pg (25.0-34.0); Mean Corpuscular Hgb Conc 31.1 g/dL (32.0-36.0); Mean Corpuscular Volume 86.4 fL (80.0-100.0); Mean Platelet Volume 11.4 fL (9.4-12.4); Monocytes # (auto) 0.76 K/uL (0.11-0.59); Neutrophils # (auto) 5.43 K/uL (1.40-6.50); Neutrophils % (auto) 71.1 %; Platelet Count 154 K/uL (130-400); RDW Coefficient of Variation 18.4 % (11.5-14.5); RDW Standard Deviation 57.6 fL (36.4-46.3); Red Blood Count 3.09 M/uL (4.20-5.40); White Blood Count 7.63 K/ul (4.8-10.8)
[2023-11-08 05:28] LABS: BUN Creatinine Ratio 12.9 (10-20); Calcium 7.6 mg/dl (8.6-10.3); Creatinine Clr Calc Pharmacy 99.5 ml/min; Est GFR (African American) 111.2 ml/min; Potassium 4.4 mmol/L (3.5-5.1)
--- NOTE | 2023-11-08 12:15 | Gastroenterology Progress Note ---
Date of Service November 08, 2023 Assessment & Plan (1) Colitis: Plan: Seems to be improving. Hopefully home soon Admission and Anticipated Discharge Date Admission Date: November 04, 2023 Subjective Awake and pleasant today. Enjoying lunch. Says she feels better Physical Exam 2 Physical Exam: She looks well Constitutional: WD/WN, vitals as above Results & Data Vital Signs (Past 12 Hours) Vital Signs Temp Pulse Pulse Resp BP Pulse Ox O2 Del Method 11/08/23 11:43 36.4 C L 79 18 129/80 96 Room Air 11/08/23 07:44 36.7 C 76 18 124/46 L 97 Room Air 11/08/23 07:03 80 11/08/23 03:44 36.4 C L 84 16 133/83 96 Room Air
[2023-11-08] MEDS: oxyCODONE HCL IR 5 MG TAB (IMMEDIATE RELEASE) PO STA (15:29)
--- NOTE | 2023-11-08 16:10 | Hospitalist Progress Note ---
Date of Service November 08, 2023 Assessment & Plan (1) Colitis: Plan: Nonspecific with some evidence of lower GI bleeding. Appreciate GI consultation and recommendations. Antibiotics have been discontinued. No evidence of bacterial infection. Diet advanced to regular. C. difficile evaluation is negative (2) Toxic encephalopathy: Plan: Appeared to be medication related. Resolved after Lyrica and zolpidem were discontinued. No evidence of CO2 narcosis on ABGs (3) Acute gastrointestinal bleeding: Plan: Lower GI source. She has evidence of acute blood loss anemia. Improved after transfusion of 1 unit packed red blood cells. Hemoglobin was down to 7.8 and now 8.3. Xarelto is on hold. (4) Acute blood loss anemia: Plan: Monitor serial hemoglobin levels. Transfuse as necessary. Serial lab. Hemoglobin now 8.3 after 1 unit packed red blood cells yesterday, November 08 (5) GERD (gastroesophageal reflux disease): Plan: Continue Protonix therapy. (6) (HFpEF) heart failure with preserved ejection fraction: Plan: Stable. Monitor intake and output. No current exacerbation (7) Chronic hyponatremia: Plan: Mild. Serum osmolarity 272. Currently asymptomatic (8) Chronic atrial fibrillation: Plan: Controlled rate. Xarelto is on hold. Continue metoprolol. Telemetry Plan Physical therapy has recommended IPR placement. Admission and Anticipated Discharge Date Admission Date: November 04, 2023 Subjective Alert and oriented. Mentation has improved after discontinuation of all [employer] affecting medications. Oxycodone as needed has been restarted however since she uses this at home for chronic pain control. Hemoglobin improved to 8.3 after 1 unit packed red blood cells yesterday, November 07. Xarelto remains on hold. Physical therapy has recommended IPR placement Review of Systems 2 Review of Systems: Constitutional-no fever or chills ENT-no blurred vision, no double vision, no epistaxis, no sore throat Respiratory-no cough, no wheezing, no shortness of breath Cardiac-no palpitations, no chest pain, no syncope GI-no nausea, no vomiting. Recent symptoms of lower GI bleeding and diarrhea -no urinary retention, no urinary incontinence, no dysuria, no hematuria Musculoskeletal-no joint pain, no muscle tenderness. Left BKA status Skin-no bruising, no rashes, no pruritus Neuro-generalized weakness Psych-depressed affect Physical Exam 2 Physical Exam: General-alert. Depressed affect. HEENT-head atraumatic and normocephalic, pupils equal and reactive to light, extraocular muscles intact Neck-no lymphadenopathy or thyromegaly, trachea midline Chest-diminished breath sounds bilaterally from anterior approach. No rales, wheezing or rhonchi Cardiac-regular rate and rhythm, normal S1 and S2 Abdomen-normal bowel sounds, no hepatosplenomegaly. Left-sided tenderness to palpation is not new and appears to be chronic. No masses. No rebound or guarding Extremities-no cyanosis, clubbing, or edema of the right lower extremity. Left BKA status Neuro-cranial nerves II through XII intact, motor and sensory function within normal limits, strength symmetrical, no focal deficits Psych-depressed affect Results & Data Results & Data Vital Signs (Past 12 Hours) Vital Signs Temp Pulse Pulse Resp BP Pulse Ox O2 Del Method 11/08/23 15:54 83 11/08/23 11:43 36.4 C L 79 18 129/80 96 Room Air 11/08/23 07:44 36.7 C 76 18 124/46 L 97 Room Air 11/08/23 07:03 80 Laboratory Results 11/08/23 04:38 11/08/23 04:38 PG Care Time/CCT Total # of Minutes Spent Total Time Spent with Patient: Total time spent is greater than 50% in coordination of care (as documented) at patient's floor/unit and/or counseling patient: Coding Level of Care Code 18397 SUB INP/OBS CARE 3/50MIN Diagnoses Colitis K52.9 Toxic encephalopathy G92.9 Acute gastrointestinal bleeding K92.2 Acute blood loss anemia D62 Gastroesophageal reflux disease, esophagitis presence not specified K21.9 Esophagitis presence: esophagitis presence not specified (HFpEF) heart failure with preserved ejection fraction I50.30 Chronic hyponatremia E87.1 Chronic atrial fibrillation I48.20 (5) GERD (gastroesophageal reflux disease) Esophagitis presence: esophagitis presence not specified Qualified Code(s): K 21.9 - Gastro-esophageal reflux disease without esophagitis
[2023-11-09 05:24] LABS: Basophils # (auto) 0.04 K/uL (0.00-0.20); Basophils % (auto) 0.5 %; Eosinophils # (auto) 0.24 K/uL (0.00-0.50); Eosinophils % (auto) 3.2 %; Hematocrit (blood only) 26.5 % (37.0-47.0); Hemoglobin 8.5 g/dl (12.0-16.0); Immature Granulocytes # (auto) 0.04 K/uL (0.01-0.20); Immature Granulocytes % (auto) 0.5 %; Lymphocytes # (auto) 1.46 K/uL (1.20-3.40); Lymphocytes % (auto) 19.4 %; Mean Corpuscular Hemoglobin 27.5 pg (25.0-34.0); Mean Corpuscular Hgb Conc 32.1 g/dL (32.0-36.0); Mean Corpuscular Volume 85.8 fL (80.0-100.0); Mean Platelet Volume 11.2 fL (9.4-12.4); Monocytes % (auto) 11.9 %; Neutrophils # (auto) 4.86 K/uL (1.40-6.50); Neutrophils % (auto) 64.5 %; Platelet Count 143 K/uL (130-400); RDW Standard Deviation 55.7 fL (36.4-46.3); Red Blood Count 3.09 M/uL (4.20-5.40); White Blood Count 7.54 K/ul (4.8-10.8)
[2023-11-09 05:37] LABS: BUN Creatinine Ratio 9.4 (10-20); Calcium 7.7 mg/dl (8.6-10.3); Creatinine Clr Calc Pharmacy 96.3 ml/min; Est GFR (African American) 110.1 ml/min; Potassium 4.2 mmol/L (3.5-5.1)
--- NOTE | 2023-11-09 12:22 | Gastroenterology Progress Note ---
Date of Service November 09, 2023 Assessment & Plan (1) Colitis: Plan: As always it is difficult to tell how she is doing. She seems to be better but it is hard to know how much. Certainly since her meds were stopped she is more alert. Admission and Anticipated Discharge Date Admission Date: November 04, 2023 Subjective Seems comfortable in bed. Says her belly is hurting her right now. Says "if the wind is blowing my way it feels good but if the wind is blowing the other way it feels bad". H/H are stable. Physical Exam Physical Exam: She looks well Constitutional: WD/WN, vitals as above Results & Data Vital Signs (Past 12 Hours) Vital Signs Temp Pulse Pulse Resp BP BP Pulse Ox 11/09/23 08:39 35.9 C L 76 18 108/69 99 11/09/23 07:18 63 11/09/23 03:22 36.2 C L 71 20 98/64 L 97 O2 Del Method 11/09/23 08:39 Room Air 11/09/23 07:18 11/09/23 03:22 Room Air
--- NOTE | 2023-11-09 17:28 | Hospitalist Progress Note ---
Date of Service November 09, 2023 Assessment & Plan (1) Colitis: Plan: Nonspecific with some evidence of lower GI bleeding. COuld be ischemic Appreciate GI consultation and recommendations. Antibiotics have been discontinued. No evidence of bacterial infection. C. difficile evaluation is negative Change to low fat diet due to pancreatitis Holding Xarelto and ASA due to hematochezia (2) Acute pancreatitis: Plan: noted on imaging and with chronic epigastric pain and chronic pancreatitis evidence change to low fat diet check lipase and LFTs in AM (3) Toxic encephalopathy: Plan: Thought to be medication related. Resolved after Lyrica and zolpidem were discontinued. No evidence of CO2 narcosis on ABGs Will resume Lyrica at a lower dose as she has been on this for years-start 100mg po bid (home dose 300mg po bid) Continue home oxycodone 5mg po qid prn Advised NOT resuming AMbien as she has been off of it here anyway and could wean off She is completely back to her baseline here now as I know her from previous admissions (4) Acute gastrointestinal bleeding: Plan: Lower GI source. 2/2 colitis, possibly ischemic She has evidence of acute blood loss anemia. Improved after transfusion of 1 unit packed red blood cells. Hemoglobin was down to 7.8 and now 8.5 Xarelto and ASA on hold Give IV Venofer in AM (5) Acute blood loss anemia: Plan: as above (6) GERD (gastroesophageal reflux disease): Plan: Resume po Protonix therapy-was on IV PPI here then stopped (7) (HFpEF) heart failure with preserved ejection fraction: Plan: Stable. Monitor intake and output. No current exacerbation bumetanide on hold from home-resume in AM (8) Chronic hyponatremia: Plan: Mild. Serum osmolarity 272. Currently asymptomatic At her baseline at 129 resume Bumex and NaCl tabs follow BMP (9) Chronic atrial fibrillation: Plan: Controlled rate. Xarelto is on hold. Continue metoprolol. 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 (13) HTN (hypertension): Plan: BPs controlled (14) Metabolic acidosis: Plan: HCO3 down to 18, maybe from diarrhea? Hyperchloremic acidosis from previous IVFs? resuming Bumex follow BMP Plan Dispo-Physical therapy has recommended IPR placement. She is not agreeable to this and wishes to go home with home health-likely tomorrow Admission and Anticipated Discharge Date Admission Date: November 04, 2023 Subjective Feeling better, still some abd pain but does have chronic abdominal pain she says. SHe is asking if she will get her oxycodone pain pill as well as her Lyrica. She also requests her AMbien be added back. No BM today, no GI bleeding Tele with afib, paced rhythm Physical Exam Constitutional: WD/WN, vitals as above Respiratory: normal respiratory effort; no cough Auscultation: + diminished lung sounds (throughout); no crackles, no rhonchi and no wheezes Cardiovascular: RRR, no murmur, no edema Gastrointestinal (Abdomen): Inspection/Auscultation: abdomen normal to inspection and normal bowel sounds; abdomen not distended Percussion/Palpation: + abdomen tender (mild in mid abdomen, no guarding or rebound) and abdomen soft Musculoskeletal: Extremities: + extremities abnormal to inspection (left BKA) Psychiatric: A+Ox3, euthymic affect Results & Data Results & Data Vital Signs (Past 12 Hours) Vital Signs Temp Pulse Pulse Resp BP Pulse Ox O2 Del Method 11/09/23 16:10 36.4 C L 93 H 18 112/79 96 Room Air 11/09/23 14:52 79 11/09/23 12:33 36.4 C L 54 L 18 104/66 97 Room Air 11/09/23 08:39 35.9 C L 76 18 108/69 99 Room Air 11/09/23 07:18 63 Laboratory Results CBC, BMP reviewed PG Care Time/CCT Total # of Minutes Spent Total Time Spent with Patient: Total time spent is greater than 50% in coordination of care (as documented) at patient's floor/unit and/or counseling patient: Coding Level of Care Code 64955 SUB INP/OBS CARE 3/50MIN Diagnoses Colitis K52.9 Acute pancreatitis K85.90 Acute pancreatitis complication: no infection or necrosis Pancreatitis type: unspecified pancreatitis type Toxic encephalopathy G92.9 Acute gastrointestinal bleeding K92.2 Acute blood loss anemia D62 Gastroesophageal reflux disease, esophagitis presence not specified K21.9 Esophagitis presence: esophagitis presence not specified (HFpEF) heart failure with preserved ejection fraction I50.30 Chronic hyponatremia E87.1 Chronic atrial fibrillation I48.20 PVD (peripheral vascular disease) I73.9 Splenic infarct D73.5 COPD (chronic obstructive pulmonary disease) J44.9 COPD type: unspecified COPD HTN (hypertension) I10 Metabolic acidosis E87.20 (2) Acute pancreatitis Acute pancreatitis complication: no infection or necrosis Pancreatitis type: unspecified pancreatitis type Qualified Code(s): K85.90 - Acute pancreatitis without necrosis or infection, unspecified (6) GERD (gastroesophageal reflux disease) Esophagitis presence: esophagitis presence not specified Qualified Code(s): K21.9 - Gastro-esophageal reflux disease without esophagitis (12) COPD (chronic obstructive pulmonary disease) COPD type: unspecified COPD Qualified Code(s): J44.9 - Chronic obstructive pulmonary disease, unspecified
[2023-11-09] MEDS: PANTOprazole 40 MG TAB PO SCH (18:05)
[2023-11-09] MEDS: oxyCODONE HCL IR 5 MG TAB (IMMEDIATE RELEASE) PO PRN (19:17)
[2023-11-09] MEDS: SODIUM CHLORIDE 1 GM TABLET PO SCH (20:36)
[2023-11-09] MEDS: PREGABALIN 100 MG CAP PO SCH (20:38)
[2023-11-09 23:11] LABS: Hematocrit (blood only) 28.2 % (37.0-47.0); Hemoglobin 8.7 g/dl (12.0-16.0)
[2023-11-10] MEDS ORDERED: ONDANSETRON INJ 2 MG/ML 2 ML VIAL IV PRN (01:02)
[2023-11-10 05:35] LABS: Basophils # (auto) 0.05 K/uL (0.00-0.20); Basophils % (auto) 0.7 %; Eosinophils % (auto) 2.9 %; Hematocrit (blood only) 27.5 % (37.0-47.0); Hemoglobin 8.6 g/dl (12.0-16.0); Immature Granulocytes # (auto) 0.05 K/uL (0.01-0.20); Immature Granulocytes % (auto) 0.7 %; Lymphocytes # (auto) 1.73 K/uL (1.20-3.40); Lymphocytes % (auto) 25.4 %; Mean Corpuscular Hemoglobin 26.9 pg (25.0-34.0); Mean Corpuscular Hgb Conc 31.3 g/dL (32.0-36.0); Mean Corpuscular Volume 85.9 fL (80.0-100.0); Mean Platelet Volume 11.6 fL (9.4-12.4); Monocytes # (auto) 0.85 K/uL (0.11-0.59); Monocytes % (auto) 12.5 %; Neutrophils # (auto) 3.93 K/uL (1.40-6.50); Neutrophils % (auto) 57.8 %; Platelet Count 145 K/uL (130-400); RDW Coefficient of Variation 18.6 % (11.5-14.5); RDW Standard Deviation 57.7 fL (36.4-46.3); White Blood Count 6.81 K/ul (4.8-10.8)
[2023-11-10 05:47] LABS: Albumin Level 2.4 gm/dl (3.4-5.0); BUN Creatinine Ratio 4.9 (10-20); Bilirubin Direct 0.4 mg/dl (0-0.2); Bilirubin,Total 1.1 mg/dl (0.2-1.0); Calcium 7.9 mg/dl (8.6-10.3); Creatinine Clr Calc Pharmacy 102.3 ml/min; Est GFR (African American) 111.8 ml/min; Est GFR (Non-African American) 96.5 ml/min; Total Protein 5.4 gm/dl (6.0-8.3)
[2023-11-10] MEDS: BUMETANIDE 1 MG TAB PO SCH (08:12)
[2023-11-10] MEDS: IRON SUCROSE 300 MG in SODIUM CHLORIDE 0.9% 250 ML IV SCH (08:31)
--- NOTE | 2023-11-10 15:51 | Discharge Summary ---
Discharge Summary Date of Service November 10, 2023 Notes For Next Care Provider Restart ASA, Xarelto in 1 week if no further bleeding Check CBC in 1 week Medication Changes From Visit HOLD ASA, Xarelto Redued Lyrica dose to 100mg po bid STOPPED Ambien Admission HPI Per Admitting Provider Anisha Garcia is a 63 year old female who presents to the ER with abdominal pain, rectal bleeding and diarrhea. She reports diarrhea since Oct 21 after taking oral contrast medium for CT. It has been watery brown since then but without abdominal pain, nausea or vomiting. This morning she started with abdominal pain, severity 6/10, generalized, cramping, coming on in waves. On waking up this morning she noticed she had passed significant amount of clots in bed. She denies any previous history of colitis, c. diff or inflammatory bowel disease. She takes Xarelto for atrial fibrillation which she last took last night. She has a had multiple hospitalizations for congestive heart failure in the past but reports no current chest pain, shortness of breath, palpitations, leg swelling and her weight has been stable. Principal Dx & Hospital Course #1 = Principal Diagnosis (1) Colitis: Nonspecific with some evidence of lower GI bleeding. COuld be ischemic given h/o PAD. Does not seem to be infectious Appreciate GI consultation and recommendations. Antibiotics have been discontinued. No evidence of bacterial infection. C. difficile evaluation is negative Continue low fiber diet for colitis and low fat diet due to pancreatitis Holding Xarelto and ASA due to hematochezia x 1 more week, check CBC with PCP in 1 week and resume then if no further bleeding f/u with GI as outpt (2) Acute pancreatitis: Acute on chronic noted on imaging and with chronic epigastric pain and chronic pancreatitis evidence tolerating a low fat diet lipase low, LFTs with mild TBili and alk phos elevation which is chronic. Had EUS in 07/2023 with chronic pancreatitis, left adrenal gland bx--> adenoma avoid EtOH (3) Toxic encephalopathy: Thought to be medication related. Resolved after Lyrica and zolpidem were discontinued. No evidence of CO2 narcosis on ABGs Resume Lyrica at a lower dose 100mg po bid (home dose 300mg po bid) Continue home oxycodone 5mg po qid prn Advised NOT resuming AMbien as she has been off of it here anyway and could wean off She is completely back to her baseline here now as I know her from previous admissions (4) Acute gastrointestinal bleeding: Lower GI source. 2/2 colitis, possibly ischemic She has evidence of acute blood loss anemia. Improved after transfusion of 1 unit packed red blood cells. Hemoglobin was down to 7.8 and now 8.6 and remains stable for 3 days Xarelto and ASA on hold as above Gave IV Venofer 300mg x 1 on 11/10 f/u as outpt with CBC in 1 week (5) Acute blood loss anemia: as above (6) GERD (gastroesophageal reflux disease): Continue po Protonix therapy (7) (HFpEF) heart failure with preserved ejection fraction: Stable. Monitor intake and output. No current exacerbation continue home bumetanide, KCl, BP control (8) Chronic hyponatremia: Mild. Serum osmolarity 272. Currently asymptomatic At her baseline at 129-132 continue Bumex and NaCl tabs follow BMP as outpt (9) Chronic atrial fibrillation: Controlled rate. Xarelto is on hold. Continue metoprolol. 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 (13) HTN (hypertension): BPs controlled (14) Metabolic acidosis: HCO3 down to 18, maybe from diarrhea? Hyperchloremic acidosis from previous IVFs? resuming Bumex and HCO3 up to 20 on day of discharge follow BMP as outpt Plan Dispo-pt desires to go home with home health today Discharge Exam Constitutional WD/WN, vitals as above Respiratory normal respiratory effort; no cough Auscultation: + diminished lung sounds (throughout); no crackles, no rhonchi and no wheezes Cardiovascular RRR, no murmur, no edema Gastrointestinal (Abdomen) Inspection/Auscultation: abdomen normal to inspection and normal bowel sounds; abdomen not distended Percussion/Palpation: + abdomen tender (mild in mid abdomen, no guarding or rebound) and abdomen soft Musculoskeletal Extremities: + extremities abnormal to inspection (left BKA) Psychiatric A+Ox3, euthymic affect Updated Medication List Medication Instructions Recorded Confirmed Type atorvastatin 80 mg tablet (Lipitor) 80 mg PO HS 06/06/19 11/04/23 History aspirin 81 mg tablet,delayed 81 mg PO QAM 12/19/19 11/04/23 History release (Tj Low Dose Aspirin) rivaroxaban 20 mg tablet (Xarelto) 20 mg PO HS 06/11/22 11/04/23 History amitriptyline 50 mg tablet 50 mg PO HS 09/11/22 11/04/23 History sennosides 8.6 mg-docusate sodium 2 tab PO QAM PRN constipation #60 04/18/23 11/04/23 Rx 50 mg tablet (Senokot-S) tabs metoprolol succinate 25 mg 25 mg PO BID 04/25/23 11/04/23 History tablet,extended release 24 hr pantoprazole 40 mg tablet,delayed 40 mg PO QAM #120 tabs 06/24/23 11/04/23 Rx release (Protonix) bumetanide 2 mg tablet 2 mg PO BID #180 tabs 08/11/23 11/04/23 Rx sodium chloride 1,000 mg soluble 1,000 mg PO BID #180 tabs 08/11/23 11/04/23 Rx tablet potassium chloride 20 mEq 40 meq (2 x 20 mEq) PO BID #120 10/04/23 11/04/23 Rx tablet,extended release tabs oxycodone 5 mg capsule 5 mg PO TID PRN moderate-severe 11/04/23 11/04/23 History pain pregabalin 100 mg capsule (Lyrica) 100 mg PO BID #60 caps 11/10/23 Rx Hospital Stay Data Consultations 11/04/23 15:54 ED Decision to Admit Stat 11/05/23 10:35 Consult Gastroenterology Routine Diagnostic Imagining Performed 11/04/23 14:45 CT abd pelvis IV con only Stat Pending Results Patient Have Any Pending Studies at Discharge: No Discharge Instructions Given to Patient (Per Discharging Provider) You were admitted with bleeding from having colitis (inflammation of the colon). You received a blood transfusion and had improvement. This may be from ischemic colitis where you temporarily did not get good blood flow to your gut from plaque build up in the blood vessels. You should remain OFF your blood thinners (Xarelto, aspirin) for one more week until you see your PCP. If no further bleeding at that point, these could be resumed. While you were here, you became confused and some of your medications were stopped or reduced in doses. It is recommended that you STOP the Ambien. Your Lyrica (pregabalin) was reduced in dose to 100mg twice a day and you did well with this. Total Time Total Time Spent Total Time Spent (In Minutes): 40 min Coding Level of Care Code 69774 INP/OBS DISCH >30 MIN Diagnoses Colitis K52.9 Acute pancreatitis K85.90 Acute pancreatitis complication: no infection or necrosis Pancreatitis type: unspecified pancreatitis type Toxic encephalopathy G92.9 Acute gastrointestinal bleeding K92.2 Acute blood loss anemia D62 Gastroesophageal reflux disease, esophagitis presence not specified K21.9 Esophagitis presence: esophagitis presence not specified (HFpEF) heart failure with preserved ejection fraction I50.30 Chronic hyponatremia E87.1 Chronic atrial fibrillation I48.20 PVD (peripheral vascular disease) I73.9 Splenic infarct D73.5 COPD (chronic obstructive pulmonary disease) J44.9 COPD type: unspecified COPD HTN (hypertension) I10 Metabolic acidosis E87.20
== END 2023-11-10 18:07 | disposition home health service (06) | DRG 393 ==
LOC: ED 13:23 → EDINP 16:32 → SUATTDRO 16:32 → 2W 22:30

== ENCOUNTER 2024-01-05 12:37 | Inpatient (IN) ==
[2024-01-05] MEDS ORDERED: traMADol HCL 50 MG TABLET PO PRN (13:48)
[2024-01-05] MEDS ORDERED: Patient's HEIGHT &/or WEIGHT Needed SCH (14:00)
[2024-01-05 14:05] LABS: Basophils % (auto) 1.2 %; Eosinophils # (auto) 0.28 K/uL (0.00-0.50); Eosinophils % (auto) 3.5 %; Hematocrit (blood only) 41.1 % (37.0-47.0); Hemoglobin 13.2 g/dl (12.0-16.0); Immature Granulocytes # (auto) 0.05 K/uL (0.01-0.20); Immature Granulocytes % (auto) 0.6 %; Lymphocytes # (auto) 1.89 K/uL (1.20-3.40); Lymphocytes % (auto) 23.4 %; Mean Corpuscular Hemoglobin 29.1 pg (25.0-34.0); Mean Corpuscular Hgb Conc 32.1 g/dL (32.0-36.0); Mean Corpuscular Volume 90.5 fL (80.0-100.0); Mean Platelet Volume 10.8 fL (9.4-12.4); Monocytes # (auto) 0.44 K/uL (0.11-0.59); Monocytes % (auto) 5.4 %; Neutrophils # (auto) 5.32 K/uL (1.40-6.50); Neutrophils % (auto) 65.9 %; Platelet Count 134 K/uL (130-400); RDW Coefficient of Variation 19.4 % (11.5-14.5); RDW Standard Deviation 65.1 fL (36.4-46.3); Red Blood Count 4.54 M/uL (4.20-5.40); White Blood Count 8.08 K/ul (4.8-10.8)
[2024-01-05 14:22] LABS: Albumin Globulin Ratio 0.9 (0.9-2); Albumin Level 3.1 gm/dl (3.4-5.0); BUN Creatinine Ratio 11.1 (10-20); Bilirubin,Total 0.6 mg/dl (0.2-1.0); Calcium 8.7 mg/dl (8.6-10.3); Creatinine Clr Calc Pharmacy 95.7 ml/min; Est GFR (African American) 109.9 ml/min; Est GFR (Non-African American) 94.8 ml/min; Globulin 3.5 gm/dl (2.5-4.0); Total Protein 6.6 gm/dl (6.0-8.3)
[2024-01-05 14:44] LABS: Prothrombin Time 11.1 Seconds (9.0-12.0)
--- NOTE | 2024-01-05 14:59 | History & Physical Report ---
Date of Service January 05, 2024 Assessment & Plan (1) Ischemia of right lower extremity: Plan: Patient is admitted at this time for anticoagulation and pain control. She will undergo arteriography with possible tPA tomorrow. I have discussed the risks options and benefits of the procedure with the patient. The patient understands the risks options and benefits and agrees to the procedure. History of Present Illness Chief Complaint: Ischemic right lower extremity Primary Care Provider: Kat Morataya MD This is a 64-year-old female who in the past has had an amputation of the left extremity. She had a right lower extremity bypass and a common femoral artery endarterectomy 4 years ago. 3 days prior to this she has developed discomfort in her right lower extremity with numbness and tingling which was intermittent in her right foot. She also claimed the right foot was more pale than usual. She called and came into the office for evaluation. Ultrasound showed occlusion of the right common femoral artery, the bypass graft, and the outflow vessels. She is having difficulty sleeping at night and has to hang her leg over the side of the bed. She does claim that she could move or wiggle her toes and has feeling in her foot and toes of the right leg. Allergies Allergy/AdvReac Type Severity Reaction Status Date / Time adhesive Allergy Severe SEVERE Verified 01/03/24 15:46 SKIN IRRITATION guanfacine Allergy Intermediate BP PROBLEMS Verified 01/03/24 15:46 nifedipine Allergy Intermediate BP PROBLEMS Verified 01/03/24 15:46 acetaminophen AdvReac Severe LIVER Verified 01/03/24 15:46 DAMAGE-DUE TO FAILURE amoxicillin AdvReac Severe LIVER Verified 01/03/24 15:46 FAILURE clavulanic acid AdvReac Severe LIVER Verified 01/03/24 15:46 FAILURE Home Medications Medication Instructions Recorded Confirmed Type atorvastatin 80 mg tablet (Lipitor) 80 mg PO HS 06/06/19 01/05/24 History aspirin 81 mg tablet,delayed 81 mg PO QAM 12/19/19 01/05/24 History release (Tj Low Dose Aspirin) amitriptyline 50 mg tablet 50 mg PO HS 09/11/22 01/05/24 History sennosides 8.6 mg-docusate sodium 2 tab PO QAM PRN constipation #60 04/18/23 01/05/24 Rx 50 mg tablet (Senokot-S) tabs metoprolol succinate 25 mg 25 mg PO BID 04/25/23 01/05/24 History tablet,extended release 24 hr pantoprazole 40 mg tablet,delayed 40 mg PO QAM #120 tabs 06/24/23 01/05/24 Rx release (Protonix) bumetanide 2 mg tablet 2 mg PO BID #180 tabs 08/11/23 01/05/24 Rx sodium chloride 1,000 mg soluble 1,000 mg PO BID #180 tabs 08/11/23 01/05/24 Rx tablet potassium chloride 20 mEq 40 meq (2 x 20 mEq) PO BID #120 10/04/23 01/05/24 Rx tablet,extended release tabs oxycodone 5 mg capsule 5 mg PO TID PRN moderate-severe 11/04/23 01/05/24 History pain pregabalin 100 mg capsule (Lyrica) 100 mg PO BID #60 caps 11/10/23 01/05/24 Rx apixaban 5 mg tablet (Eliquis) 5 mg PO BID 12/31/23 01/05/24 History alendronate 70 mg tablet 70 mg PO WK 01/05/24 01/05/24 History [id number] 1 cap PO UD 01/05/24 01/05/24 History 3,000-9,500-15,000 unit capsule, delayed rel (Creon) Past Med/Surg History Medical History History of anesthesia reaction woke up in middle of an EGD once at [facility] Acute GI bleeding Oct 2023, hospitalized at [facility] > due to this, patient switched from Xarelto to Eliquis > no further bleeding issues Splenic infarct pot unaware Acute pancreatitis Pancreas cyst AV block with subsequent syncope - s/p dual chamber pacemaker ([employer]) - 2019 per cardio records History of COVID-19 08/2021- pcr test [place], not hosp; no symptoms, was in the ER for another issue Metabolic alkalosis (HFpEF) heart failure with preserved ejection fraction Secondary to severe mitral regurgitation TRISTAN (dyspnea on exertion) Severe mitral regurgitation Per patient, attempt for MitraClip ([facility]) was performed but unsuccessful (07/2021) (little improvement of regurgitation with MitraClip x2- procedure aborted Chronic atrial fibrillation On Eliquis Follows with Dr. Zarate (PSH) HTN (hypertension) Hx of gastric ulcer Neuropathy Hx of pancreatitis Chronic. Due to heavy alcohol consumption per records Anxiety and depression DVT (deep venous thrombosis) 40+ years ago Hx of migraines Pacemaker Dual-chamber, implanted 2018 (high grade AVB/sinus node dysfunction), [employer], follows with Dr. Zarate > last checked in February 2023 GERD (gastroesophageal reflux disease) Hyponatremia Chronic issue- follows with nephrology Chronic pain syndrome Tobacco use disorder Paroxysmal atrial fibrillation Eliquis/pacer Dyslipidemia PVD (peripheral vascular disease) S/p left BKA Surgical History Hx of oral surgery (09/17/22) Debridement Necrotic Bone and Soft Tissue and Associated Infected P eriodontally Infected Teeth to Allow Mitral Valve Replacement (Lower Jaw)(Not Applicable) - Ha Champion, DMD Hx of vascular surgery 11/2019, with dr maya, [facility], replaced 2 veins with bovine veins in Rt leg History of surgery (~07/30/21) Attempt for MitraClip ([facility]) was performed but unsuccessful (07/2021); currently being seen in [facility] for a trial for valve replacement History of esophagogastroduodenoscopy (EGD) History of cardiac cath (~04/24/21) 03/2021@ [facility] with Dr. Carbajal, no evidence of epicardial CAD S/P angiogram of extremity right lower leg S/P femoral-popliteal bypass surgery History of amputation REVISION OF AMPUTATION LLE History of colonoscopy History of tooth extraction Status post below knee amputation of left lower extremity Status post ORIF of fracture of ankle ORIF closed displaced trimalleolar left ankle fracture (2016) H/O vascular surgery Bilateral femoral endarterectomy with iliac stent (2017) History of appendectomy Family History Unknown No problems noted. Father Family history of diabetes mellitus Breast cancer Diabetes Hypertension Mother Hypertension Other No family history of adverse response to anesthesia Social History Smoking Status: Current every day smoker Tobacco Type: Cigarettes Cigarettes Per Day: 1/2 ppd > advised; Second Hand Exposure: No; Do You Dip or Chew Tobacco: No; Hx Alcohol Use: Yes Alcohol type: beer Alcohol Intake Frequency: 2-4 x/Month Hx Substance Use: No Preferred Language: Polish Communication Ability: Effective Visual Impairment: No Limitations Edge Sawyer Required: No Beliefs That Will Affect Care: None marital status: Current Living Situation: Spouse current occupational status: disabled current occupation: Retired How many Children do You have: 1 Feels Safe at Home: Yes Diet: regular during the past year weight has: decreased > 10 lbs Assistive Devices: Denture - Upper, Denture - Lower, Glasses and Wheelchair Review of Systems All systems reviewed & are unremarkable except as noted in HPI & below Physical Exam Constitutional: WD/WN, vitals as above Respiratory: normal respiratory effort, lungs clear to auscultation Cardiovascular: RRR, no murmur, no edema Rate/Rhythm: regular rate and regular rhythm Vessels: + femoral pulses abnormal (Absent on the right), + posterior tibial pulses abnormal and + dorsalis pedis pulses abnormal Extremities: + abnormal capillary refill Gastrointestinal (Abdomen): normal bowel sounds, soft, nontender, no hepatosplenomegaly Neurologic: CN's II-XI intact bilaterally and moves all extremities Psychiatric: Orientation: alert and oriented x 3 Results & Data Vital Signs (Past 12 Hours) Vital Signs Temp Pulse Resp BP Pulse Ox O2 Del Method 01/05/24 12:48 36.9 C 71 18 103/77 98 Room Air Code Status & VTE Plan VTE Prophylaxis Plan VTE Prophylaxis will be ordered: Yes
--- NOTE | 2024-01-05 15:06 | XRay Report ---
XR chest 2V PA/lateral HISTORY: Preop evaluation. COMPARISON: Chest 11/05/2023. FINDINGS: No pneumothorax. No pleural effusions. The cardiac silhouette remains mildly enlarged. Ther e is a left-sided dual-chamber pacemaker. No focal lung consolidations to suggest a pneumonia. No jessy dence for pulmonary edema. Calcifications within the aortic knob. No acute fractures. IMPRESSION: Stable mild cardiomegaly. Otherwise, no acute process within the chest. ACT 112: Negative or not required by law. Electronically signed by: Manan Colmenares M.D. 01/05/2024 3:04 PM
[2024-01-05] MEDS ORDERED: PANCREAZE (LIPASE 4,200U) CAP PO PRN (15:09)
[2024-01-05] MEDS: HEPARIN SODIUM/DEXTROSE 25,000 UNITS/500 ML BAG IV SCH (15:39)
[2024-01-05] MEDS: MoRPHine SULFATE 2 MG/ML CARP IV PRN (15:47)
[2024-01-05] MEDS: oxyCODONE HCL IR 5 MG TAB (IMMEDIATE RELEASE) PO PRN (16:16)
[2024-01-05] MEDS: Heparin IV Adult Wt-Based Standard *NO* INITIAL Bolus Protocol IV STA (18:51)
[2024-01-05] MEDS: BUMETANIDE 1 MG TAB PO SCH (19:03)
[2024-01-05] MEDS: PANCREAZE (LIPASE 4,200U) CAP PO SCH (19:03)
[2024-01-05] MEDS: ATORVASTATIN 40 MG TAB PO SCH (20:19)
[2024-01-05] MEDS: POTASSIUM CHLORIDE CRTAB 20 MEQ TABCR PO SCH (20:19)
[2024-01-05] MEDS: SODIUM CHLORIDE 1 GM TABLET PO SCH (20:19)
[2024-01-05] MEDS: AMITRIPTYLINE HCL 50 MG TAB PO SCH (20:19)
[2024-01-05] MEDS: PREGABALIN 100 MG CAP PO SCH (20:23)
[2024-01-05] MEDS: METOPROLOL SUCC 25MG EXT REL TAB PO SCH (20:24)
[2024-01-05] MEDS: HYDROmorphone INJ 0.5 MG/0.5 ML SYR IV PRN (20:24)
[2024-01-05] MEDS: ZOLPIDEM TARTRATE 10 MG TAB PO PRN (22:08)
[2024-01-05 22:33] LABS: ANTI-Xa, UFH(UnfractionatedHep 0.57 IU/ml (0.3-0.7)
[2024-01-06] MEDS ORDERED: ONDANSETRON INJ 2 MG/ML 2 ML VIAL IV PRN (07:18)
[2024-01-06] MEDS ORDERED: ATROPINE SULFATE 0.1 MG/ML 10ML SYR IV PRN (07:18)
[2024-01-06] MEDS ORDERED: HYDROmorphone INJ 2 MG/ML SYR/VIAL IV PRN (07:18)
[2024-01-06] MEDS ORDERED: ePHEDrine sulfate 50 MG/ML AMP IV PRN (07:18)
[2024-01-06] MEDS ORDERED: PROMETHAZINE HCL 6.25 MG in SODIUM CHLORIDE 0.9% 50 ML IV PRN (07:18)
--- NOTE | 2024-01-06 07:18 | Anesthesiology Consultation ---
Date of Service January 06, 2024 Assessment & Plan Chart Review Chart Review: Acceptable Risk for Surgery and Patient NOT seen in Pre Admission Testing Consults Requested none ASA ASA4 Proposed Anesthesia Anesthesia Type: General Anesthesia Line Insertion: Arterial line Risk / Benefits Reviewed With: PT / POA / Parent / Guardian, Accepts Plan and Informed Consent Obtained History Surgery Operation Date: 01/06/24 15:10 Proposed Procedures p Right Lower Extremity Arteriogram, Possible TPA - Payam Maya MD s Femoral Popliteal Bypass Graft - Payam Maya MD Height/Weight Height: 5 ft 4 in Weight: 83 kg Allergies Allergy/AdvReac Type Severity Reaction Status Date / Time adhesive Allergy Severe SEVERE Verified 01/03/24 15:46 SKIN IRRITATION guanfacine Allergy Intermediate BP PROBLEMS Verified 01/03/24 15:46 nifedipine Allergy Intermediate BP PROBLEMS Verified 01/03/24 15:46 acetaminophen AdvReac Severe LIVER Verified 01/03/24 15:46 DAMAGE-DUE TO FAILURE amoxicillin AdvReac Severe LIVER Verified 01/03/24 15:46 FAILURE clavulanic acid AdvReac Severe LIVER Verified 01/03/24 15:46 FAILURE Medications Home Medications Medication Instructions Recorded Confirmed Last Taken atorvastatin 80 mg tablet (Lipitor) 80 mg PO HS 06/06/19 01/05/24 11/03/23 aspirin 81 mg tablet,delayed 81 mg PO QAM 12/19/19 01/05/24 11/04/23 release (Tj Low Dose Aspirin) amitriptyline 50 mg tablet 50 mg PO HS 09/11/22 01/05/24 11/03/23 sennosides 8.6 mg-docusate sodium 2 tab PO QAM PRN constipation #60 04/18/23 01/05/24 Unknown 50 mg tablet (Senokot-S) tabs metoprolol succinate 25 mg 25 mg PO BID 04/25/23 01/05/24 11/04/23 tablet,extended release 24 hr pantoprazole 40 mg tablet,delayed 40 mg PO QAM #120 tabs 06/24/23 01/05/24 11/04/23 release (Protonix) bumetanide 2 mg tablet 2 mg PO BID #180 tabs 08/11/23 01/05/24 11/04/23 sodium chloride 1,000 mg soluble 1,000 mg PO BID #180 tabs 08/11/23 01/05/2424 tablet potassium chloride 20 mEq 40 meq (2 x 20 mEq) PO BID #120 10/04/23 01/05/24 11/04/23 tablet,extended release tabs oxycodone 5 mg capsule 5 mg PO TID PRN moderate-severe 11/04/23 01/05/24 Unknown pain pregabalin 100 mg capsule (Lyrica) 100 mg PO BID #60 caps 11/10/23 01/05/24 Unknown apixaban 5 mg tablet (Eliquis) 5 mg PO BID 12/31/23 01/05/24 Unknown alendronate 70 mg tablet 70 mg PO WK 01/05/24 01/05/24 Unknown [id number] 1 cap PO UD 01/05/24 01/05/24 Unknown 3,000-9,500-15,000 unit capsule, delayed rel (Creon) zolpidem 10 mg tablet (Ambien) 10 mg PO HS 01/05/24 01/05/24 Unknown Active Medications Generic Name Dose Route Start Last Admin Trade Name Freq PRN Reason Stop Dose Admin Amitriptyline HCl 50 mg 01/05/24 21:00 01/05/24 20:19 Amitriptyline Hcl 50 Mg Tab PO 02/04/24 20:59 50 mg HS ZACH Administration Lipase/Protease/Amylase 1 cap 01/05/24 17:00 01/05/24 19:03 Pancreaze (Lipase 4,200u) Cap PO 02/04/24 16:59 1 cap TIDM ZACH Administration Atorvastatin Calcium 80 mg 01/05/24 21:00 01/05/24 20:19 Atorvastatin 40 Mg Tab PO 02/04/24 20:59 80 mg HS ZACH Administration Bumetanide 2 mg 01/05/24 17:00 01/05/24 19:03 Bumetanide 1 Mg Tab PO 02/04/24 16:59 2 mg [id number] ZACH Administration Hydromorphone HCl 0.5 mg 01/05/24 19:56 01/06/24 06:03 Hydromorphone Inj 0.5 Mg/0.5 Ml Syr IV 01/12/24 19:55 0.5 mg Q2H PRN Administration Pain Heparin Sodium/Dextrose 25,000 units in 500 mls @ 24 mls/hr 01/05/24 14:15 01/05/24 19:13 Heparin Sodium/Dextrose IV 02/04/24 14:14 1,200 units/hr .[id number] ZACH 24 mls/hr Titration Protocol 1,200 UNITS/HR Metoprolol Succinate 25 mg 01/05/24 21:00 01/05/24 20:24 Metoprolol Succ 25mg Ext Rel Tab PO 02/04/24 20:59 Not Given BID ZACH Oxycodone HCl 5 mg 01/05/24 13:48 01/05/24 16:16 Oxycodone Hcl Ir 5 Mg Tab (Immediate Release) PO 01/19/24 13:47 5 mg Q6H PRN Administration Pain Potassium Chloride 40 meq 01/05/24 21:00 01/05/24 20:19 Potassium Chloride Crtab 20 Meq Tabcr PO 02/04/24 20:59 40 meq BID ZACH Administration Pregabalin 100 mg 01/05/24 21:00 01/05/24 20:23 Pregabalin 100 Mg Cap PO 02/04/24 20:59 100 mg BID ZACH Administration Sodium Chloride 1 gm 01/05/24 21:00 01/05/24 20:19 Sodium Chloride 1 Gm Tablet PO 02/04/24 20:59 1 gm BID ZACH Administration Zolpidem Tartrate 10 mg 01/05/24 21:33 01/05/24 22:08 Zolpidem Tartrate 10 Mg Tab PO 02/04/24 21:32 10 mg HS PRN Administration Sleep NPO Date Last Intake of Fluids: 01/05/24 Time Last Intake of Fluids: 23:00 Date Last Intake of Solids: 01/05/24 Time Last Intake of Solids: 23:00 Past Medical History Medical History History of anesthesia reaction [place] [facility] [place] bleeding [place], hospitalized at [facility] > due to this, patient switched from Xarelto to Eliquis > no further bleeding issues Splenic infarct pot unaware Acute pancreatitis Pancreas cyst AV block with subsequent syncope - s/p dual chamber pacemaker ([employer]tronic) - 2019 per cardio records History of COVID-19 08/2021- pcr test [place], not hosp; no symptoms, was in the ER for another issue Metabolic alkalosis (HFpEF) heart failure with preserved ejection fraction Secondary to severe mitral regurgitation TRISTAN (dyspnea on exertion) Severe mitral regurgitation Per patient, attempt for MitraClip ([facility]) was performed but unsuccessful (07/2021) (little improvement of regurgitation with MitraClip x2- procedure aborted Chronic atrial fibrillation On Eliquis Follows with [facility]. Zarate ([facility]) HTN (hypertension) Hx of gastric ulcer Neuropathy Hx of pancreatitis Chronic. Due to heavy alcohol consumption per records Anxiety and depression DVT (deep venous thrombosis) 40+ years ago Hx of migraines Pacemaker Dual-chamber, implanted 2018 (high grade AVB/sinus node dysfunction), Medtronic, follows with Dr. Zarate > last checked in February 2023 GERD (gastroesophageal reflux disease) Hyponatremia Chronic issue- follows with nephrology Chronic pain syndrome Tobacco use disorder Paroxysmal atrial fibrillation Eliquis/pacer Dyslipidemia PVD (peripheral vascular disease) S/p left BKA Exercise / Class Metabolic Activity II 4-5 Yardwork/Stairs/Walk up hill Past Family History Family History Unknown No problems noted. Father Family history of diabetes mellitus Breast cancer Diabetes Hypertension Mother Hypertension Other No family history of adverse response to anesthesia Past Surgical History Surgical History Hx of oral surgery (09/17/22) Debridement Necrotic Bone and Soft Tissue and Associated Infected Periodontally Infected Teeth to Allow Mitral Valve Replacement (Lower Jaw)(Not Applicable) - Ha Champion, DMD Hx of vascular surgery 11/2019, with dr maya, [facility], replaced 2 veins with bovine veins in Rt leg History of surgery (~07/30/21) Attempt for MitraClip ([facility]) was performed but unsuccessful (07/2021); currently being seen in [facility] for a trial for valve replacement History of esophagogastroduodenoscopy (EGD) History of cardiac cath (~04/24/21) 03/2021@ [facility] with Dr. Carbajal, no evidence of epicardial CAD S/P angiogram of extremity right lower leg S/P femoral-popliteal bypass surgery History of amputation REVISION OF AMPUTATION LLE History of colonoscopy History of tooth extraction Status post below knee amputation of left lower extremity Status post ORIF of fracture of ankle ORIF closed displaced trimalleolar left ankle fracture (2017) H/O vascular surgery Bilateral femoral endarterectomy with iliac stent (2017) History of appendectomy Past Anesthesia History No Hx of Anesthesia Complications and No Family Hx of Anesthesia Complications History of PONV No Hx of PONV and No Hx of Motion Sickness Social History Smoking Status: Current every day smoker tobacco type: cigarettes Smoking cigarettes per day: 0.5 Do You Dip or Chew Tobacco: No Hx Alcohol Use: Yes Alcohol type: beer alcohol intake frequency: holidays/special occasions only Hx Substance Use: No substance use type: does not use Substance Use Type Other:: Patient has medical marijuana card. Last Used Substance: Unknown Physical Exam Vital Signs Last Vital Signs Temp 37.4 C 01/06/24 06:57 Pulse 97 H 01/06/24 06:57 Resp 18 01/06/24 06:57 BP 122/96 01/06/24 06:57 Pulse Ox 94 01/06/24 06:57 O2 Del Method Room Air 01/06/24 06:57 ENMT Mouth: + edentulous Thyromental Distance: > or= 3.5 Finger Breadths Mallampati Class: II Neck normal visual inspection Respiratory normal respiratory effort Auscultation: lungs clear to auscultation bilaterally Cardiovascular Rate/Rhythm: regular rate and regular rhythm Chest (Breasts) Chest: + pacemaker Musculoskeletal Spine: + limited cervical ROM (mildly limited. poor effort) Extremities: extremities normal to inspection (Cold RLE) and + amputation noted (LLE BKA) Psychiatric Orientation: alert Testing Laboratory Results 01/05/24 13:51 01/05/24 13:51 PT 11.1 Seconds (9.0-12.0) 01/05/24 13:51 INR 1.0 (0.9-1.1) 01/05/24 13:51 01/05/24 20:40 POC Glucose 118 H
[2024-01-06 07:24] LABS: ANTI-Xa, UFH(UnfractionatedHep 0.86 IU/ml (0.3-0.7)
--- NOTE | 2024-01-06 07:38 | History & Physical Bridge Note ---
Date of Service January 06, 2024 History & Physical Bridge Note I have examined the patient, reviewed the History & Physical and in the interval since the performance of the History & Physical I have noted the following changes of clinical significance: no changes noted
[2024-01-06] MEDS ORDERED: SODIUM CHLORIDE 0.9% 250 ML IV PRN ×2 (07:39→15:12)
[2024-01-06] MEDS: CLINDA 900 MG **Premixed Bag IV SCH (08:39)
[2024-01-06] MEDS: LIDOCAINE 1% LOCAL 20 ML VIAL ONE (10:53)
[2024-01-06] MEDS: THROMBIN FOR SOLN 20000 UNIT KIT ONE ×2 (10:59→12:35)
[2024-01-06] MEDS: BUPIVACAINE/EPINEPHRINE 0.5% MPF 1:200,000 10 ML VIAL ONE (11:26)
[2024-01-06] MEDS ORDERED: ALBUMIN HUMAN 5% 12.5 GM/250 ML VIAL IV ONE (12:11)
--- NOTE | 2024-01-06 12:24 | Operative Report ---
Post Operative Report Pre & Post Diagnosis Operation Date: 01/06/24 15:10 Pre-Op Diagnosis: Right lower leg ischemia Post-Op Diagnosis: Right lower leg ischemia I identified the patient and participated in the time-out.: Yes Procedure Operation Date: 01/06/24 15:10 Actual Procedures p Thrombectomy of right lower extremity, with patch angioplasty of right common femoral artery, Stent placement of right external iliac artery, Right popliteal to posterior tibial prosthetic bypass(Right) - Payam Maya MD Surgeon Payam Maya MD Laboratory Analyst MD Danny Estimated Blood Loss 500 Findings Consistent with Post-Op Diagnosis Specimens none Anesthesia Type General Complications none Disposition Accompanied Patient To Recovery: No Disposition: Recovery Room Indications This is a 64-year-old female who had a right leg bypass 4 years ago. She also had a patch angioplasty and endarterectomy right common femoral artery. She came to the office complaining of his intermittent pain in the right foot. She was found to have an occlusion of her right superficial femoral artery. During the night her pain got worse and her foot became completely numb. Emergent operation was recommended. I have discussed the risks options and benefits of the procedure with the patient. The patient understands the risks options and benefits and agrees to the procedure. Description of Procedure The patient was taken the operating room placed in the supine position. After general anesthesia was accomplished the patient was identified and timeout was performed. A longitudinal incision was then made in the right groin. This was carried down to where the femoral popliteal bypass graft was identified. It was tracked upward. The profundofemoral artery was identified. This was isolated as well as the common femoral artery up to the inguinal ligament. That point the patient was bolused with heparin. We clamped the profunda and common femoral artery and did a longitudinal arteriotomy through the old patch. A Yesenia cath was then passed down through the graft. The Yesenia got down to below the knee but cannot be passed any further. A large amount of clot was removed. Inflow was very sluggish with clot present at the upper part of the common femoral artery. We then passed the Yesenia upward. It would not pass all the way up into the aorta. Clot was removed from the distal iliac artery. We then placed a an 8 [place] sheath within the common femoral artery. Arteriography was then performed which showed an abrupt occlusion at the end of the stent. An 035 wire was then passed through the sheath. It was advanced through the clot and the old stent in the common femoral artery. A Kumpe cath was then passed over the wire into the aorta. Hand-injection showed the aorta to be patent as well as the left common iliac system. There was occlusion of the right common iliac artery from its origin down to the end of the previously placed stent. We then reinserted the 035 wire. Using an over the wire balloon the right common iliac artery was thrombectomized. Inflow was better but still sluggish. We then did another arteriogram which showed a narrowing right at the end of the distal portion of this previously placed stent. We then inserted an 8 x 29 VBX stent and deployed it through the distal end of the old stent. Completion angio showed good results. There is no residual stenosis. Good inflow was seen. We then closed the arteriotomy with a bovine patch. This was sewn in place with 5-0 Prolene. After this was completed the clamps were removed. There is excellent flow heard in the profundofemoral artery by Doppler. There is still no flow distal in the bypass graft. The contrast got down to just above the knee and then stop. We then made a longitudinal incision in the line of the old incision in the upper calf on the medial side. This was carried downward to where the distal end of the femoral tibioperoneal trunk bypass was identified. The artery was then isolated distally. It appeared to be the posterior tibial artery. We had attempted to pass wires through the end of the previously placed graft which was unsuccessful. At that point we isolated the distal end of the previously placed graft as well as the posterior tibial artery distal to the old anastomosis. The artery at that level was soft but on the small side. Longitudinal arteriotomy was started on the posterior tibial artery. It was again soft with no plaque noted. Using a 6 mm propatent distal anastomosis was performed. Clamp was then placed on the graft. There was backbleeding seen from the posterior tibial artery. The anastomotic site appeared to be sealed with no significant bleeding. We then isolated the distal end of the old bypass. Proximal distal control was obtained. A longitudinal arteriotomy was performed. The graft was beveled and end to side anastomosis was accomplished using a 5-0 Prolene suture. Prior to completing this closure back bleeding and forward bleeding was allowed to occur. The final few sutures were placed and securely tied. Clamps were removed. There is excellent Doppler signals heard in the posterior tibial artery beyond the anastomosis. There is Doppler signal heard at the posterior tibial artery at the ankle. And hemostasis was then obtained. Once this was noted the wound was closed in usual fashion using a running 2-0 Vicryl suture for the femoral sheath, 3-0 Vicryl suture for subcutaneous layer and neto for the skin. Sterile dressings were applied to the lower leg and a Prevena VAC dressing applied to the groin incision.The patient left the operation room in satisfactory condition and tolerated the procedure well. All needle and sponge counts were correct at the end of the procedure. I attest to the content of the Intraoperative Record and any orders documented therein. Any exceptions are noted below.
[2024-01-06] MEDS: ceFAZolin 330 MG/ML 1 GM VIAL ONE (12:32)
[2024-01-06] MEDS: HEPARIN (PORCINE) 1000 UNIT/ML 10 ML (CATH LAB USE ONLY) ONE (12:33)
[2024-01-06] MEDS: GELATIN SPONGE SZ 100 ONE (12:35)
[2024-01-06] MEDS: PAPAVERINE HCL INJ 30 MG/ML 2 ML VIAL ONE (12:35)
[2024-01-06] MEDS: fentaNYL citrate PF 100 MCG/2 ML VIAL IV PRN (13:49)
--- NOTE | 2024-01-06 14:28 | Anesthesiology Progress Note ---
Date of Service January 06, 2024 Anesthesia Post Procedure Vital Signs Vital Signs: Temp Pulse Pulse Pulse Resp BP BP 01/06/24 14:15 36.4 C L 107 H 15 01/06/24 14:05 100 H 18 01/06/24 13:55 100 H 22 01/06/24 13:45 105 H 20 01/06/24 13:35 104 H 20 01/06/24 13:25 104 H 20 01/06/24 13:16 36.3 C L 104 H 20 01/06/24 06:57 37.4 C 97 H 18 122/96 01/06/24 06:42 37.1 C 96 H 19 136/87 01/06/24 04:15 36.7 C 80 16 123/76 01/05/24 22:38 36.4 C L 70 16 135/70 01/05/24 19:30 36.3 C L 77 16 116/56 L 01/05/24 18:45 36.3 C L 82 16 106/65 01/05/24 17:30 83 18 114/70 01/05/24 17:29 78 15 116/73 01/05/24 17:19 74 21 94/61 L 01/05/24 17:11 75 20 99/49 L 01/05/24 17:09 80 20 81/53 L 01/05/24 17:01 81 13 95/64 L 01/05/24 16:56 74 16 120/58 L 01/05/24 16:52 90/52 L 01/05/24 16:45 74 16 100/61 01/05/24 16:25 74 21 122/66 01/05/24 16:19 72 01/05/24 16:15 75 16 107/84 01/05/24 16:10 72 19 102/66 01/05/24 16:00 68 19 102/67 01/05/24 15:57 78 15 117/67 BP BP Pulse Ox O2 Del Method O2 Flow Rate 01/06/24 14:15 108/48 L 99 Oxymask 5 01/06/24 14:05 100/49 L 98 Oxymask 5 01/06/24 13:55 109/49 L 100 Oxymask 5 01/06/24 13:45 83/65 L 96 Oxymask 5 01/06/24 13:35 96/48 L 96 Oxymask 5 01/06/24 13:25 84/42 L 96 Oxymask 5 01/06/24 13:16 71/58 L 96 Oxymask 5 01/06/24 06:57 96/79 L 94 Room Air 01/06/24 06:42 94 Room Air 01/06/24 04:15 98 Room Air 01/05/24 22:38 97 Room Air 01/05/24 19:30 97 Room Air 01/05/24 18:45 97 Room Air 01/05/24 17:30 93 01/05/24 17:29 96 01/05/24 17:19 98 01/05/24 17:11 96 Room Air 01/05/24 17:09 97 Room Air 01/05/24 17:01 89 L 01/05/24 16:56 01/05/24 16:52 01/05/24 16:45 98 01/05/24 16:25 01/05/24 16:19 01/05/24 16:15 97 01/05/24 16:10 97 01/05/24 16:00 01/05/24 15:57 99 Pain Intensity Right Leg: Pain Intensity: 8 Transfer of Care Handoff Completed per policy Notes Mental Status: alert / awake / arousable Patient Amnestic to Procedure: Yes Nausea / Vomiting: adequately controlled Pain: adequately controlled Airway Patency, RR, SpO2: stable & adequate BP & HR: stable & adequate Hydration State: stable & adequate Anesthetic Complications: no major complications apparent
[2024-01-06] MEDS ORDERED: STAT IV Infusion **Titration per Protocol STA (14:54)
[2024-01-06] MEDS: PHENYLEPHRINE/NSS 25 MG/250 ML BAG IV SCH (15:00)
[2024-01-06 15:04] LABS: Hematocrit (blood only) 24.3 % (37.0-47.0); Hemoglobin 8.1 g/dl (12.0-16.0); Mean Corpuscular Hemoglobin 29.5 pg (25.0-34.0); Mean Corpuscular Hgb Conc 33.3 g/dL (32.0-36.0); Mean Corpuscular Volume 88.4 fL (80.0-100.0); Mean Platelet Volume 11.4 fL (9.4-12.4); Platelet Count 90 K/uL (130-400); RDW Coefficient of Variation 19.4 % (11.5-14.5); Red Blood Count 2.75 M/uL (4.20-5.40); White Blood Count 7.81 K/ul (4.8-10.8)
[2024-01-06] MEDS: ONDANSETRON INJ 2 MG/ML 2 ML VIAL IV PRN (15:04)
[2024-01-06 15:05] LABS: Basophils # (auto) 0.03 K/uL (0.00-0.20); Basophils % (auto) 0.4 %; Immature Granulocytes # (auto) 0.04 K/uL (0.01-0.20); Immature Granulocytes % (auto) 0.5 %; Lymphocytes # (auto) 0.56 K/uL (1.20-3.40); Lymphocytes % (auto) 7.2 %; Monocytes # (auto) 0.15 K/uL (0.11-0.59); Monocytes % (auto) 1.9 %; Neutrophils # (auto) 7.03 K/uL (1.40-6.50)
[2024-01-06] MEDS: ASPIRIN 81 MG ECTAB PO SCH (15:34)
[2024-01-06] MEDS: PANTOprazole 40 MG TAB PO SCH (15:38)
[2024-01-06] MEDS: SODIUM CHLORIDE 0.9% 500 ML IV SCH (15:40)
[2024-01-06] MEDS: LACTATED RINGER'S 1,000 ML IV SCH (15:41)
[2024-01-06] MEDS: PHENYLEPHRINE HCL 25 MG/250 ML NSS IV ONE (15:48)
--- NOTE | 2024-01-06 16:48 | Critical Care Consultation ---
Date of Consultation January 06, 2024 Assessment & Plan (1) Ischemia of right lower extremity: (2) Acute blood loss anemia: (3) PVD (peripheral vascular disease): Plan Assessment: 64yo female who presented s/p thrombectomy of RLE, patch angioplasty of R common femoral artery, stent placement of R external iliac artery, R popliteal to posterior tibial prosthetic bypass, admitted to the ICU post op for close monitoring and pressor support Critical care indication: risk of life-threatening complications s/p vascular surgery need for pressor support Plan: Neurologic CAM ICU negative Sedation: none Analgesia: PRN oxycodone, hydromorphone Cardiac BP stable at this time on neomycin, parameters per Dr. Maya Respiratory Hx COPD Maintaining adequate oxygen saturation on room air Gastrointestinal Diet: heart healthy Renal/electrolytes No significant electrolyte derangement at this time Replete electrolytes as needed Genitourinary No concerns at this time Torres catheter draining normal-appearing urine at this time Strict I/O's Endocrine BSG stable Hematologic Pre op Hb 13.2, post op 8.2; receiving 2U PRBCs Will monitor for any drops in the setting of heparin gtt Follow daily CBC Infectious disease Afebrile since admission No concern for infection at this time Integumentary No concerns at this time incisions c/d/i Lines/access PIVs intact Prophylaxis DVT ppx: heparin GI ppx: protonix Code status: Full Isolation: none Disposition: ICU Thank you the opportunity to participate in this patient's care. Please see attending documentation for further recommendations. History of Present Illness Reason for Consultation: post op vascular surgery Attending Physician: Payam Maya MD History of Present Illness 64yo female who presented s/p thrombectomy of RLE, patch angioplasty of R common femoral artery, stent placement of R external iliac artery, R popliteal to posterior tibial prosthetic bypass, admitted to the ICU post op for close monitoring and pressor support Pt doing well post op. Complains of dull constant pain with intermittent sharp pain to the R leg. Otherwise no acute complaints. Currently on phenylephrine, parameters per Dr. Maya. 2U PRBCs transfusing. Allergies Allergy/AdvReac Type Severity Reaction Status Date / Time adhesive Allergy Severe SEVERE Verified 01/03/24 15:46 SKIN IRRITATION guanfacine Allergy Intermediate BP PROBLEMS Verified 01/03/24 15:46 nifedipine Allergy Intermediate BP PROBLEMS Verified 01/03/24 15:46 acetaminophen AdvReac Severe LIVER Verified 01/03/24 15:46 DAMAGE-DUE TO FAILURE amoxicillin AdvReac Severe LIVER Verified 01/03/24 15:46 FAILURE clavulanic acid AdvReac Severe LIVER Verified 01/03/24 15:46 FAILURE Home Medications Medication Instructions Recorded Confirmed Type atorvastatin 80 mg tablet (Lipitor) 80 mg PO HS 06/06/19 01/05/24 History aspirin 81 mg tablet,delayed 81 mg PO QAM 12/19/19 01/05/24 History release (Tj Low Dose Aspirin) amitriptyline 50 mg tablet 50 mg PO HS 09/11/22 01/05/24 History sennosides 8.6 mg-docusate sodium 2 tab PO QAM PRN constipation #60 04/18/23 01/05/24 Rx 50 mg tablet (Senokot-S) tabs metoprolol succinate 25 mg 25 mg PO BID 04/25/23 01/05/24 History tablet,extended release 24 hr pantoprazole 40 mg tablet,delayed 40 mg PO QAM #120 tabs 06/24/23 01/05/24 Rx release (Protonix) bumetanide 2 mg tablet 2 mg PO BID #180 tabs 08/11/23 01/05/24 Rx sodium chloride 1,000 mg soluble 1,000 mg PO BID #180 tabs 08/11/23 01/05/24 Rx tablet potassium chloride 20 mEq 40 meq (2 x 20 mEq) PO BID #120 10/04/23 01/05/24 Rx tablet,extended release tabs oxycodone 5 mg capsule 5 mg PO TID PRN moderate-severe 11/04/23 01/05/24 History pain pregabalin 100 mg capsule (Lyrica) 100 mg PO BID #60 caps 11/10/23 01/05/24 Rx apixaban 5 mg tablet (Eliquis) 5 mg PO BID 12/31/23 01/05/24 History alendronate 70 mg tablet 70 mg PO WK 01/05/24 01/05/24 History zguhza-vqffvgal-neokuce 1 cap PO UD 01/05/24 01/05/24 History 3,000-9,500-15,000 unit capsule, delayed rel (Creon) zolpidem 10 mg tablet (Ambien) 10 mg PO HS 01/05/24 01/05/24 History Patient History Medical History History of anesthesia reaction woke up in middle of an EGD once at [facility] Acute GI bleeding Oct 2023, hospitalized at [facility] > due to this, patient switched from Xarelto to Eliquis > no further bleeding issues Splenic infarct pot unaware Acute pancreatitis Pancreas cyst AV block with subsequent syncope - s/p dual chamber pacemaker ([employer]tr[employer]) - 2019 per cardio records History of COVID-19 08/2021- pcr test [place], not hosp; no symptoms, was in the ER for another issue Metabolic alkalosis (HFpEF) heart failure with preserved ejection fraction Secondary to severe mitral regurgitation TRISTAN (dyspnea on exertion) Severe mitral regurgitation Per patient, attempt for MitraClip ([facility]) was performed but unsuccessful (07/2021) (little improvement of regurgitation with MitraClip x2- procedure aborted Chronic atrial fibrillation On Eliquis Follows with Dr. Zarate ([facility]) HTN (hypertension) Hx of gastric ulcer Neuropathy Hx of pancreatitis Chronic. Due to heavy alcohol consumption per records Anxiety and depression DVT (deep venous thrombosis) 40+ years ago Hx of migraines Pacemaker Dual-chamber, implanted 2018 (high grade AVB/sinus node dysfunction), [employer]tr[employer], follows with Dr. Zarate > last checked in February 2023 GERD (gastroesophageal reflux disease) Hyponatremia Chronic issue- follows with nephrology Chronic pain syndrome Tobacco use disorder Paroxysmal atrial fibrillation Eliquis/pacer Dyslipidemia PVD (peripheral vascular disease) S/p left BKA Surgical History Hx of oral surgery (09/17/22) Debridement Necrotic Bone and Soft Tissue and Associated Infected Periodontally Infected Teeth to Allow Mitral Valve Replacement (Lower Jaw)(Not Applicable) - Ha Champion, DMD Hx of vascular surgery 11/2019, with dr maya, [facility], replaced 2 veins with bovine veins in Rt leg History of surgery (~07/30/21) Attempt for MitraClip ([facility]) was performed but unsuccessful (07/2021); currently being seen in [facility] for a trial for valve replacement History of esophagogastroduodenoscopy (EGD) History of cardiac cath (~04/24/21) 03/2021@ [facility] with Dr. Carbajal, no evidence of epicardial CAD S/P angiogram of extremity right lower leg S/P femoral-popliteal bypass surgery History of amputation REVISION OF AMPUTATION LLE History of colonoscopy History of tooth extraction Status post below knee amputation of left lower extremity Status post ORIF of fracture of ankle ORIF closed displaced trimalleolar left ankle fracture (2017) H/O vascular surgery Bilateral femoral endarterectomy with iliac stent (2017) History of appendectomy Family History Unknown No problems noted. Father Family history of diabetes mellitus Breast cancer Diabetes Hypertension Mother Hypertension Other No family history of adverse response to anesthesia Social History Smoking Status: Current every day smoker Tobacco Type: Cigarettes Cigarettes Per Day: 0.5; Second Hand Exposure: Yes; Do You Dip or Chew Tobacco: No; Tobacco Cessation Education Requested by Patient: No Hx Alcohol Use: Yes Alcohol type: beer Alcohol Intake Frequency: 2-4 x/Month Hx Substance Use: No Preferred Language: Danish Communication Ability: Effective Visual Impairment: No Limitations Neon Tube Pumper Required: No Beliefs That Will Affect Care: None marital status: Current Living Situation: Spouse current occupational status: disabled current occupation: Retired How many Children do You have: 1 Other Information That Helps Us Care for You: No Feels Safe at Home: Yes Safety Concerns: Feels Safe At This Time Diet: regular during the past year weight has: decreased > 10 lbs Assistive Devices: Glasses, Hospital Bed and Wheelchair Review of Systems Review of Systems: reviewed, per HPI Physical Exam Physical Exam: Constitutional: well-appearing, no acute distress HEENT: NCAT, no conjunctival injection CV: irregularly irregular rhythm, mild tachycardia, no murmur appreciated, extremities well-perfused, no LE edema Resp: CTABL, no wheezes/rales/rhonchi appreciated, no increased work of breathing GI: soft, nondistended, nontender, BS normoactive MSK: LLE amputation, RLE incisions c/d/i, RLE pulses intact Skin: warm, dry, no rash appreciated Neuro: alert, oriented, no focal neurologic deficit appreciated Results & Data Results & Data Vital Signs (Past 12 Hours) Vital Signs Temp Pulse Pulse Pulse Resp BP BP 01/06/24 16:25 36.5 C 116 H 16 100/53 L 01/06/24 14:15 36.4 C L 107 H 15 01/06/24 14:05 100 H 18 01/06/24 13:55 100 H 22 01/06/24 13:45 105 H 20 01/06/24 13:35 104 H 20 01/06/24 13:25 104 H 20 01/06/24 13:16 36.3 C L 104 H 20 01/06/24 06:57 37.4 C 97 H 18 122/96 01/06/24 06:42 37.1 C 96 H 19 136/87 BP BP Pulse Ox O2 Del Method O2 Flow Rate 01/06/24 16:25 97 01/06/24 14:15 108/48 L 99 Oxymask 5 01/06/24 14:05 100/49 L 98 Oxymask 5 01/06/24 13:55 109/49 L 100 Oxymask 5 01/06/24 13:45 83/65 L 96 Oxymask 5 01/06/24 13:35 96/48 L 96 Oxymask 5 01/06/24 13:25 84/42 L 96 Oxymask 5 01/06/24 13:16 71/58 L 96 Oxymask 5 01/06/24 06:57 96/79 L 94 Room Air 01/06/24 06:42 94 Room Air Resident Activity Tracking Resident Involvement: Resident Care Provided Care Provided: Adult Hospital Medicine
[2024-01-06] MEDS: CLINDAMYCIN/D5W 900 MG/50 ML BAG IV SCH (17:17)
[2024-01-06] MEDS: BUMETANIDE 1 MG TAB PO ONE (18:01)
[2024-01-06] MEDS: LACTATED RINGER'S 500 ML IV ONE (18:33)
[2024-01-07 04:11] LABS: Basophils # (auto) 0.03 K/uL (0.00-0.20); Basophils % (auto) 0.2 %; Hematocrit (blood only) 30.5 % (37.0-47.0); Hemoglobin 10.1 g/dl (12.0-16.0); Immature Granulocytes # (auto) 0.11 K/uL (0.01-0.20); Immature Granulocytes % (auto) 0.8 %; Lymphocytes # (auto) 1.22 K/uL (1.20-3.40); Lymphocytes % (auto) 9.1 %; Mean Corpuscular Hgb Conc 33.1 g/dL (32.0-36.0); Mean Corpuscular Volume 90.5 fL (80.0-100.0); Mean Platelet Volume 11.2 fL (9.4-12.4); Monocytes # (auto) 1.16 K/uL (0.11-0.59); Monocytes % (auto) 8.6 %; Neutrophils # (auto) 10.93 K/uL (1.40-6.50); Neutrophils % (auto) 81.3 %; Platelet Count 120 K/uL (130-400); RDW Coefficient of Variation 17.1 % (11.5-14.5); RDW Standard Deviation 55.7 fL (36.4-46.3); Red Blood Count 3.37 M/uL (4.20-5.40); White Blood Count 13.45 K/ul (4.8-10.8)
[2024-01-07 04:20] LABS: BUN Creatinine Ratio 11.5 (10-20); Calcium 7.3 mg/dl (8.6-10.3); Creatinine Clr Calc Pharmacy 97.1 ml/min; Est GFR (Non-African American) 95.8 ml/min; Potassium 3.9 mmol/L (3.5-5.1)
--- NOTE | 2024-01-07 07:16 | Critical Care Progress Note ---
Date of Service January 07, 2024 Assessment & Plan (1) Ischemia of right lower extremity: (2) Acute blood loss anemia: (3) PVD (peripheral vascular disease): Plan Assessment: 64yo female who presented s/p thrombectomy of RLE, patch angioplasty of R common femoral artery, stent placement of R external iliac artery, R popliteal to posterior tibial prosthetic bypass, admitted to the ICU post op for close monitoring and pressor support Critical care indication: risk of life-threatening complications s/p vascular surgery need for pressor support Plan: Neurologic CAM ICU negative Sedation: none Analgesia: PRN oxycodone, hydromorphone Cardiac BP stable at this time on neomycin, parameters per Dr. Maya Respiratory Hx COPD Maintaining adequate oxygen saturation on room air Gastrointestinal Diet: heart healthy Renal/electrolytes No significant electrolyte derangement at this time Replete electrolytes as needed Genitourinary No concerns at this time Torres catheter draining normal-appearing urine at this time Strict I/O's Endocrine BSG stable Hematologic Pre op Hb 13.2, post op 8.2; receiving 2U PRBCs Will monitor for any drops in the setting of heparin gtt Follow daily CBC Infectious disease Afebrile since admission No concern for infection at this time Integumentary No concerns at this time incisions c/d/i Lines/access PIVs intact Prophylaxis DVT ppx: heparin GI ppx: protonix Code status: Full Isolation: none Disposition: ICU Thank you the opportunity to participate in this patient's care. Please see attending documentation for further recommendations. Admission and Anticipated Discharge Date Admission Date: January 05, 2024 Supervising Physician Co-Signing Physician Notes Dr. Sanchez was resident physician during care of patient. I separately evaluated patient for stearns portions of the history and the exam. I was present during the critical portion of medical decision making, and I discussed the case with the resident. I generally agree with the findings and plan. Wean off vasopressors. Can turn off vasopressors and if patient is relatively hypotensive we will check a lactate if not elevated then doubt hypoperfusion in a patient with known peripheral vascular disease. Critical care will sign off. Subjective Patient seen and evaluated at bedside this morning. No acute events overnight. Remains hypotensive. Reports similar constant and intermittent pain this am. Remains on thuy. Review of Systems Review of Systems: reviewed, per HPI Physical Exam Physical Exam: Constitutional: well-appearing, no acute distress HEENT: NCAT, no conjunctival injection CV: irregularly irregular rhythm, mild tachycardia, no murmur appreciated, extremities well-perfused, no LE edema Resp: CTABL, no wheezes/rales/rhonchi appreciated, no increased work of breathing GI: soft, nondistended, nontender, BS normoactive MSK: LLE amputation, wound vac in place, RLE incisions c/d/i, RLE pulses intact Skin: warm, dry, no rash appreciated Neuro: alert, oriented, no focal neurologic deficit appreciated Results & Data Results & Data Vital Signs (Past 12 Hours) Vital Signs Temp Pulse Resp BP Pulse Ox Pulse Ox O2 Del Method 01/07/24 06:30 100 H 01/07/24 06:00 93 H 01/07/24 05:30 94 H 01/07/24 05:00 94 H 88 L 01/07/24 04:30 90 96 01/07/24 04:00 93 H 96 01/07/24 04:00 36.9 C 01/07/24 04:00 95 H 95/50 L 01/07/24 03:30 95 H 91 01/07/24 03:00 97 H 95 01/07/24 02:30 87 95 01/07/24 02:00 87 96 01/07/24 01:30 81 94 01/07/24 01:00 94 H 95 01/07/24 00:30 96 H 01/07/24 00:00 100 H 92 01/07/24 00:00 37.0 C 01/07/24 00:00 90 98/55 L 01/06/24 23:30 99 H 95 01/06/24 23:14 96 H 01/06/24 23:11 95 Room Air 01/06/24 23:00 107 H 92 01/06/24 22:50 37.1 C 107 H 15 122/68 95 01/06/24 22:30 91 H 11 L 93 01/06/24 22:00 94 H 7 L 93 01/06/24 21:49 37.1 C 93 H 15 102/56 L 93 01/06/24 21:30 111 H 11 L 95 01/06/24 21:00 106 H 24 95 01/06/24 20:49 37.2 C 103 H 15 115/60 95 01/06/24 20:30 94 H 20 95 01/06/24 20:19 37.2 C 91 H 15 126/66 96 01/06/24 20:04 37.2 C 108 H 15 116/60 93 01/06/24 20:00 109 H 14 91 01/06/24 19:55 89 111/56 L 01/06/24 19:47 37.2 C 107 H 17 109/53 L 95 01/06/24 19:36 103 H 20 117/61 96 01/06/24 19:30 87 24 99 O2 Flow Rate 01/07/24 06:30 01/07/24 06:00 01/07/24 05:30 01/07/24 05:00 01/07/24 04:30 01/07/24 04:00 01/07/24 04:00 01/07/24 04:00 01/07/24 03:30 01/07/24 03:00 01/07/24 02:30 01/07/24 02:00 01/07/24 01:30 01/07/24 01:00 01/07/24 00:30 01/07/24 00:00 01/07/24 00:00 01/07/24 00:00 01/06/24 23:30 01/06/24 23:14 01/06/24 23:11 01/06/24 23:00 01/06/24 22:50 0 01/06/24 22:30 01/06/24 22:00 01/06/24 21:49 0 01/06/24 21:30 01/06/24 21:00 01/06/24 20:49 0 01/06/24 20:30 01/06/24 20:19 0 01/06/24 20:04 0 01/06/24 20:00 01/06/24 19:55 01/06/24 19:47 01/06/24 19:36 01/06/24 19:30 Resident Activity Tracking Resident Involvement: Resident Care Provided Care Provided: Adult Hospital Medicine
[2024-01-07] MEDS: DOCUSATE SODIUM/SENNA 50/8.6MG TAB PO PRN (07:49)
--- NOTE | 2024-01-07 10:00 | Surgery Progress Note ---
Date of Service January 07, 2024 Assessment & Plan (1) Ischemia of right lower extremity: Plan: Pt Doing well POD #1. Remains on phenylephrine d/t hypotension. Will restart eliquis. Pt to be OOB to chair today. Continue to monitor. Admission and Anticipated Discharge Date Admission Date: January 05, 2024 Subjective 64 yo f POD #1 after RLE Thrombectomy with patch graft, Stent placement of external iliac artery, Right popliteal to posterior tibial bypass, seen in f/u today. Pt states pain in RLE incisions and R foot. Wishes to have her caballero removed and use BSC. Denies any other complaints. Review of Systems Review of Systems: All systems reviewed & are unremarkable except as noted in HPI & below Physical Exam Constitutional: WD/WN, vitals as above Respiratory: normal respiratory effort, lungs clear to auscultation Cardiovascular: RRR, no murmur, no edema Rate/Rhythm: + irregularly irregular Vessels: femoral pulses present (Dressing in place), posterior tibial pulses present (doppler) and dorsalis pedis pulses present (doppler) Extremities: normal capillary refill Gastrointestinal (Abdomen): normal bowel sounds, soft, nontender, no hepatosplenomegaly Skin: + incision (R groin prevena, RLE intact, mild local edema, soft anterior compartment) Neurologic: CN's II-XI intact bilaterally and moves all extremities Psychiatric: Orientation: alert and oriented x 3 Results & Data Vital Signs (Past 12 Hours) Vital Signs Temp Pulse Resp BP Pulse Ox Pulse Ox O2 Del Method 01/07/24 09:30 93 H 11 L 96 01/07/24 09:00 84 14 92 01/07/24 08:41 92/65 L 01/07/24 08:41 81 11 L 73 L 01/07/24 08:38 36.6 C 01/07/24 08:30 86 23 01/07/24 08:00 101 H 20 01/07/24 08:00 95 H 01/07/24 07:30 95 H 23 01/07/24 07:00 86 01/07/24 06:30 100 H 01/07/24 06:00 93 H 01/07/24 05:30 94 H 01/07/24 05:00 94 H 88 L 01/07/24 04:30 90 96 01/07/24 04:00 93 H 96 01/07/24 04:00 36.9 C 01/07/24 04:00 95 H 95/50 L 01/07/24 03:30 95 H 91 01/07/24 03:00 97 H 95 01/07/24 02:30 87 95 01/07/24 02:00 87 96 01/07/24 01:30 81 94 01/07/24 01:00 94 H 95 01/07/24 00:30 96 H 01/07/24 00:00 100 H 92 01/07/24 00:00 37.0 C 01/07/24 00:00 90 98/55 L 01/06/24 23:30 99 H 95 01/06/24 23:14 96 H 01/06/24 23:11 95 Room Air 01/06/24 23:00 107 H 92 01/06/24 22:50 37.1 C 107 H 15 122/68 95 01/06/24 22:30 91 H 11 L 93 O2 Flow Rate 01/07/24 09:30 01/07/24 09:00 01/07/24 08:41 01/07/24 08:41 01/07/24 08:38 01/07/24 08:30 01/07/24 08:00 01/07/24 08:00 01/07/24 07:30 01/07/24 07:00 01/07/24 06:30 01/07/24 06:00 01/07/24 05:30 01/07/24 05:00 01/07/24 04:30 01/07/24 04:00 01/07/24 04:00 01/07/24 04:00 01/07/24 03:30 01/07/24 03:00 01/07/24 02:30 01/07/24 02:00 01/07/24 01:30 01/07/24 01:00 01/07/24 00:30 01/07/24 00:00 01/07/24 00:00 01/07/24 00:00 01/06/24 23:30 01/06/24 23:14 01/06/24 23:11 01/06/24 23:00 01/06/24 22:50 0 01/06/24 22:30
--- NOTE | 2024-01-07 10:02 | Billing Data ---
Date of Service January 07, 2024 Coding Level of Care Code 36812 SUB INP/OBS CARE
[2024-01-07] MEDS ORDERED: PHENYLEPHRINE/NSS 25 MG/250 ML BAG IV SCH ×2 (10:04→10:06)
[2024-01-07] MEDS ORDERED: STAT IV Infusion **Titration per Protocol STA ×2 (10:04→10:06)
[2024-01-07] MEDS: APIXABAN 5 MG TABLET PO SCH (11:58)
[2024-01-07] MEDS: ALENDRONATE SODIUM 70 MG TAB PO SCH (19:39)
--- NOTE | 2024-01-07 21:32 | Electrocardiogram Report ---
Test Reason : Blood Pressure : / mmHG Vent. Rate : 080 BPM Atrial Rate : 000 BPM P-R Int : 000 ms QRS Dur : 074 ms QT Int : 368 ms P-R-T Axes : 000 091 -51 degrees QTc Int : 424 ms Atrial fibrillation with occasional ventricular-paced complexes Rightward axis Low voltage QRS Septal infarct , age undetermined Abnormal ECG When compared with ECG of 04-NOV-2023 13:45, Ventricular paced complex is now present T wave inversion now evident in Inferior leads T wave inversion now evident in Anterolateral leads Confirmed by Alex Taylor ([id number] on 01/07/2024 9:32:37 PM Referred By: Payam Maya Confirmed By:Alex Taylor
--- NOTE | 2024-01-08 00:08 | Electrocardiogram Report ---
Test Reason : Blood Pressure : / mmHG Vent. Rate : 103 BPM Atrial Rate : 115 BPM P-R Int : 000 ms QRS Dur : 084 ms QT Int : 342 ms P-R-T Axes : 000 082 241 degrees QTc Int : 448 ms Atrial fibrillation with rapid ventricular response Abnormal ECG When compared with ECG of 05-JAN-2024 14:14, Ventricular paced complex is no longer present Confirmed by Alex Taylor ([id number] on 01/08/2024 12:08:14 AM Referred By: Payam Maya Confirmed By:Alex Taylor
[2024-01-08] MEDS ORDERED: ALENDRONATE SODIUM 70 MG TAB PO SCH (09:00)
--- NOTE | 2024-01-08 09:35 | Surgery Progress Note ---
Date of Service January 08, 2024 Assessment & Plan (1) Ischemia of right lower extremity: Plan: Pt Doing well. Has been off thuy. Will transfer to floor. Adjusted pain meds to oral only Admission and Anticipated Discharge Date Admission Date: January 05, 2024 Subjective Patient complaining of incisional pain. Wants to come off of IV pain meds. No complaints of foot pain or numbness. Physical Exam Constitutional: WD/WN, vitals as above Respiratory: normal respiratory effort, lungs clear to auscultation Cardiovascular: RRR, no murmur, no edema Rate/Rhythm: regular rate and regular rhythm Vessels: posterior tibial pulses present (good doppler signal) and dorsalis pedis pulses present (good doppler signal) Extremities: normal capillary refill Gastrointestinal (Abdomen): normal bowel sounds, soft, nontender, no hepatosplenomegaly Skin: + incision (leg dressing intact and dry. Prevena working.) Neurologic: CN's II-XI intact bilaterally and moves all extremities Psychiatric: Orientation: alert and oriented x 3 Results & Data Vital Signs (Past 12 Hours) Vital Signs Temp Pulse Pulse Resp BP BP BP 01/08/24 07:38 76 12 97/46 L 92/54 L 01/08/24 06:00 82 10 L 01/08/24 05:00 84 11 L 01/08/24 04:00 78 15 01/08/24 04:00 37.0 C 01/08/24 04:00 90 91/55 L 01/08/24 03:00 85 10 L 01/08/24 02:00 72 14 01/08/24 01:00 83 9 L 01/08/24 00:00 87 6 L 01/08/24 00:00 37.0 C 01/08/24 00:00 78 96/50 L 01/08/24 00:00 91 H 01/07/24 23:59 01/07/24 23:00 88 11 L 01/07/24 22:00 97 H 25 H Pulse Ox Pulse Ox O2 Del Method O2 Del Method 01/08/24 07:38 94 Room Air 01/08/24 06:00 01/08/24 05:00 01/08/24 04:00 01/08/24 04:00 01/08/24 04:00 01/08/24 03:00 01/08/24 02:00 01/08/24 01:00 01/08/24 00:00 01/08/24 00:00 01/08/24 00:00 01/08/24 00:00 01/07/24 23:59 95 Room Air 01/07/24 23:00 01/07/24 22:00
[2024-01-08] MEDS: oxyCODONE HCL IR 5 MG TAB (IMMEDIATE RELEASE) PO STA (10:04)
[2024-01-08] MEDS: oxyCODONE HCL IR 5 MG TAB (IMMEDIATE RELEASE) PO PRN (15:14)
[2024-01-09 06:33] LABS: Basophils # (auto) 0.07 K/uL (0.00-0.20); Basophils % (auto) 0.9 %; Eosinophils # (auto) 0.27 K/uL (0.00-0.50); Eosinophils % (auto) 3.6 %; Hematocrit (blood only) 27.6 % (37.0-47.0); Hemoglobin 9.3 g/dl (12.0-16.0); Immature Granulocytes # (auto) 0.11 K/uL (0.01-0.20); Immature Granulocytes % (auto) 1.5 %; Lymphocytes # (auto) 1.23 K/uL (1.20-3.40); Lymphocytes % (auto) 16.5 %; Mean Corpuscular Hemoglobin 30.4 pg (25.0-34.0); Mean Corpuscular Hgb Conc 33.7 g/dL (32.0-36.0); Mean Corpuscular Volume 90.2 fL (80.0-100.0); Mean Platelet Volume 11.1 fL (9.4-12.4); Monocytes # (auto) 0.79 K/uL (0.11-0.59); Monocytes % (auto) 10.6 %; Neutrophils # (auto) 4.97 K/uL (1.40-6.50); Neutrophils % (auto) 66.9 %; Nucleated RBC # (auto) 0.02 K/uL (0.00-0.12); Nucleated RBC % (auto) 0.3 %; Platelet Count 96 K/uL (130-400); RDW Coefficient of Variation 17.7 % (11.5-14.5); RDW Standard Deviation 58.4 fL (36.4-46.3); Red Blood Count 3.06 M/uL (4.20-5.40); White Blood Count 7.44 K/ul (4.8-10.8)
[2024-01-09 06:47] LABS: BUN Creatinine Ratio 10.6 (10-20); Calcium 7.5 mg/dl (8.6-10.3); Creatinine Clr Calc Pharmacy 90.1 ml/min; Est GFR (African American) 108.2 ml/min; Est GFR (Non-African American) 93.4 ml/min; Potassium 3.7 mmol/L (3.5-5.1)
--- NOTE | 2024-01-09 09:15 | Surgery Progress Note ---
Date of Service January 09, 2024 Assessment & Plan (1) Ischemia of right lower extremity: Plan: Pt Doing well. Continue PT/OT Will try for rehab. Admission and Anticipated Discharge Date Admission Date: January 05, 2024 Subjective Feeling better today. No complaints of foot pain. Physical Exam Constitutional: WD/WN, vitals as above Respiratory: normal respiratory effort, lungs clear to auscultation Cardiovascular: RRR, no murmur, no edema Rate/Rhythm: regular rate and regular rhythm Vessels: posterior tibial pulses present (good doppler signal) and dorsalis pedis pulses present (good doppler signal) Extremities: normal capillary refill Gastrointestinal (Abdomen): normal bowel sounds, soft, nontender, no hepatosplenomegaly Skin: + incision (leg dressing intact and dry. Prevena working.) Neurologic: CN's II-XI intact bilaterally and moves all extremities Psychiatric: Orientation: alert and oriented x 3 Results & Data Vital Signs (Past 12 Hours) Vital Signs Temp Pulse Resp BP Pulse Ox O2 Del Method 01/09/24 03:27 36.6 C 81 16 100/68 94 Room Air 01/08/24 21:45 Room Air
--- NOTE | 2024-01-10 09:48 | Surgery Progress Note ---
Date of Service January 10, 2024 Assessment & Plan (1) Ischemia of right lower extremity: Plan: Pt Doing well POD #4. Continue PT/OT. OK for rehab when placed. Admission and Anticipated Discharge Date Admission Date: January 05, 2024 Subjective 65 yo F POD #4 after extensive RLE revascularization, seen in f/u today. Pt admits incisional pain and R foot discomfort d/t swelling. No other complaints. Review of Systems Review of Systems: All systems reviewed & are unremarkable except as noted in HPI & below Physical Exam Constitutional: WD/WN, vitals as above Respiratory: normal respiratory effort, lungs clear to auscultation Cardiovascular: RRR, no murmur, no edema Rate/Rhythm: regular rate, regular rhythm and + irregularly irregular Vessels: femoral pulses present (Dressing in place), posterior tibial pulses present (good doppler signal) and dorsalis pedis pulses present (good doppler signal) Extremities: normal capillary refill Gastrointestinal (Abdomen): normal bowel sounds, soft, nontender, no hepatosplenomegaly Skin: + incision (leg dressing intact and dry. Prevena working.) Neurologic: CN's II-XI intact bilaterally and moves all extremities Psychiatric: Orientation: alert and oriented x 3 Results & Data Vital Signs (Past 12 Hours) Vital Signs Temp Pulse Pulse Resp BP Pulse Ox O2 Del Method 01/10/24 07:35 36.5 C 87 87 12 106/74 95 Room Air 01/10/24 00:39 98/65 L
--- NOTE | 2024-01-11 09:32 | Surgery Progress Note ---
Date of Service January 11, 2024 Assessment & Plan (1) Ischemia of right lower extremity: Plan: Pt doing well POD #5. Continue PT/OT. OK for rehab when placed. Admission and Anticipated Discharge Date Admission Date: January 05, 2024 Subjective 65 yo F POD #5 after extensive RLE revascularization, seen in f/u today. Pt admits incisional pain and R foot discomfort d/t swelling, but states pain is improving slightly. No other complaints. Participating in PT/OT. Review of Systems Review of Systems: All systems reviewed & are unremarkable except as noted in HPI & below Physical Exam Constitutional: WD/WN, vitals as above Respiratory: normal respiratory effort, lungs clear to auscultation Cardiovascular: Rate/Rhythm: + irregularly irregular Vessels: femoral pulses present (Dressing in place), posterior tibial pulses present (good doppler signal) and dorsalis pedis pulses present (good doppler signal) Extremities: normal capillary refill and + edema (R foot/lower leg) Gastrointestinal (Abdomen): normal bowel sounds, soft, nontender, no hepatosplenomegaly Skin: + incision ( Prevena working. Lower leg incision C/D/I) Neurologic: CN's II-XI intact bilaterally and moves all extremities; no focal motor deficits and not confused Psychiatric: Orientation: alert and oriented x 3 Results & Data Vital Signs (Past 12 Hours) Vital Signs Temp Pulse Resp BP Pulse Ox O2 Del Method 01/11/24 07:54 36.7 C 60 16 95/60 L 95 Room Air
--- NOTE | 2024-01-12 15:06 | Surgery Progress Note ---
Date of Service January 12, 2024 Assessment & Plan (1) Ischemia of right lower extremity: Plan: Pt doing well POD #6. Continue PT/OT. OK for rehab when placed. Admission and Anticipated Discharge Date Admission Date: January 05, 2024 Subjective 65 yo F POD #6 after extensive RLE revascularization, seen in f/u today. Pt admits incisional pain and R foot discomfort d/t swelling, R groin discomfort as well. No other complaints. Review of Systems Review of Systems: All systems reviewed & are unremarkable except as noted in HPI & below Physical Exam Constitutional: WD/WN, vitals as above Respiratory: normal respiratory effort, lungs clear to auscultation Cardiovascular: RRR, no murmur, no edema Rate/Rhythm: regular rate, regular rhythm and + irregularly irregular Vessels: femoral pulses present (Dressing in place), posterior tibial pulses present (good doppler signal) and dorsalis pedis pulses present (good doppler signal) Extremities: normal capillary refill and + edema (R foot/lower leg) Gastrointestinal (Abdomen): normal bowel sounds, soft, nontender, no hepatosplenomegaly Skin: + incision ( Prevena working. Lower leg incision C/D/I) Neurologic: CN's II-XI intact bilaterally and moves all extremities; no focal motor deficits and not confused Psychiatric: Orientation: alert and oriented x 3 Results & Data Vital Signs (Past 12 Hours) Vital Signs Temp Pulse Resp BP Pulse Ox Pulse Ox O2 Del Method 01/12/24 14:11 36.6 C 75 16 108/68 97 Room Air 01/12/24 08:00 95 01/12/24 07:00 36.6 C 78 16 107/72 97 Room Air O2 Del Method 01/12/24 14:11 01/12/24 08:00 Room Air 01/12/24 07:00
== END 2024-01-13 16:23 | DRG 253 ==
LOC: ED 12:37 → EDINP 13:46 → 3W 18:36 → 1E 01-06 14:39 → 3E 01-08 09:25

== ENCOUNTER 2024-11-10 20:58 | Inpatient (IN) ==
--- NOTE | 2024-11-10 21:48 | Emergency Department Note ---
History of Present Illness General Chief complaint: Infection Stated complaint: INFECTION ON LT SIDE Time Seen by Provider: 11/10/24 21:24 History of Present Illness Maximum Pain Intensity: 9 This 64-year-old female presents the ER complaining of left groin abdominal pain for the past few days steadily getting worse. Patient states she also fell On the side the other day. Patient denies cough, congestion, headache, neck pain, back pain, numbness, tingling, localized weakness. Home Medications Medication Instructions Recorded Confirmed Type atorvastatin 80 mg tablet (Lipitor) 80 mg PO HS 06/06/19 11/11/24 History aspirin 81 mg tablet,delayed 81 mg PO QAM 12/19/19 11/11/24 History release (Tj Low Dose Aspirin) amitriptyline 50 mg tablet 50 mg PO HS 09/11/22 11/11/24 History sennosides 8.6 mg-docusate sodium 2 tab PO QAM PRN constipation #60 04/18/23 08/28/24 Rx 50 mg tablet (Senokot-S) tabs metoprolol succinate 25 mg 25 mg PO BID 04/25/23 11/11/24 History tablet,extended release 24 hr oxycodone 5 mg capsule 5 mg PO TID PRN moderate-severe 11/04/23 08/28/24 History pain apixaban 5 mg tablet (Eliquis) 5 mg PO BID 12/31/23 11/11/24 History alendronate 70 mg tablet 70 mg PO WK 01/05/24 08/28/24 History wrmcye-[id number] 1 cap PO UD 01/05/24 08/28/24 History 3,000-9,500-15,000 unit capsule, delayed rel (Creon) zolpidem 10 mg tablet (Ambien) 10 mg PO HS 01/05/24 11/11/24 History potassium chloride 20 mEq 40 meq (2 x 20 mEq) PO BID #120 05/18/24 08/28/24 Rx tablet,extended release tabs pantoprazole 40 mg tablet,delayed 40 mg PO QAM #120 tabs 08/21/24 11/11/24 Rx release (Protonix) bumetanide 2 mg tablet 2 mg PO BID #180 tabs 08/23/24 08/28/24 Rx sodium chloride 1,000 mg soluble 1,000 mg PO BID #180 tabs 09/04/24 Rx tablet pregabalin 300 mg capsule 300 mg PO DAILY 11/11/24 11/11/24 History Allergies Allergy/AdvReac Type Severity Reaction Status Date / Time adhesive Allergy Severe SEVERE Verified 04/03/24 14:51 SKIN IRRITATION guanfacine Allergy Intermediate BP PROBLEMS Verified 04/03/24 14:51 nifedipine Allergy Intermediate BP PROBLEMS Verified 04/03/24 14:51 acetaminophen AdvReac Severe LIVER Verified 04/03/24 14:51 DAMAGE-DUE TO FAILURE amoxicillin AdvReac Severe LIVER Verified 04/03/24 14:51 FAILURE clavulanic acid AdvReac Severe LIVER Verified 04/03/24 14:51 FAILURE Past Med/Surg History Problem List (Updated 02/03/24 @ 00:10 by Joshua Cherry) Anasarca (Acute) Acute hyponatremia (Acute) Candidiasis (Acute) Abdominal wall cellulitis (Acute) Cellulitis of groin, left (Acute) Ischemia of right lower extremity Poor intravenous access Abdominal pain (Acute) Colitis (Acute) Metabolic acidosis Iron deficiency anemia Acute respiratory failure with hypoxia Elevated lactic acid level (Acute) Leukocytosis (Acute) Acute respiratory failure with hypoxia and hypercarbia (Acute) Shortness of breath (Acute) Anemia (Acute) Chronic hyponatremia (Acute) Abdominal pain (Acute) Pancreatic cyst Mandibular bony exostosis Carious teeth Periodontal disease ANUG (acute necrotizing ulcerative gingivitis) Hyponatremia 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 Zarate ([facility]) PVD (peripheral vascular disease) S/p left BKA Dyslipidemia H/O vascular surgery Bilateral femoral endarterectomy with iliac stent (2016) Status post ORIF of fracture of ankle ORIF closed displaced trimalleolar left ankle fracture (2017) Status post below knee amputation of left lower extremity Medical History History of anesthesia reaction woke up in middle of an EGD once at [facility] Acute GI bleeding Oct 2023, hospitalized at [facility] > due to this, patient switched from Xarelto to Eliquis > no further bleeding issues Splenic infarct pot unaware Acute pancreatitis Pancreas cyst AV block with subsequent syncope - s/p dual chamber pacemaker ([employer]tronic) - 2018 per cardio records History of COVID-19 08/2021- pcr test [place], not hosp; no symptoms, was in the ER for another issue Metabolic alkalosis (HFpEF) heart failure with preserved ejection fraction Secondary to severe mitral regurgitation TRISTAN (dyspnea on exertion) Severe mitral regurgitation Per patient, attempt for MitraClip ([facility]) was performed but unsuccessful (07/2021) (little improvement of regurgitation with MitraClip x2- procedure aborted Chronic atrial fibrillation On Eliquis Follows with Dr. Zarate ([facility]) HTN (hypertension) Hx of gastric ulcer Neuropathy Hx of pancreatitis Chronic. Due to heavy alcohol consumption per records Anxiety and depression DVT (deep venous thrombosis) 40+ years ago Hx of migraines Pacemaker Dual-chamber, implanted 2018 (high grade AVB/sinus node dysfunction), Medtronic, follows with Dr. Zarate > last checked in February 2023 GERD (gastroesophageal reflux disease) Hyponatremia Chronic issue- follows with nephrology Chronic pain syndrome Tobacco use disorder Paroxysmal atrial fibrillation Eliquis/pacer Dyslipidemia PVD (peripheral vascular disease) S/p left BKA Surgical History Hx of oral surgery (09/17/22) Debridement Necrotic Bone and Soft Tissue and Associated Infected Periodontally Infected Teeth to Allow Mitral Valve Replacement (Lower Jaw)(Not Applicable) - Ha Champion, DMD Hx of vascular surgery 11/2019, with dr maya, [facility], replaced 2 veins with bovine veins in Rt leg History of surgery (~07/30/21) Attempt for MitraClip ([facility]) was performed but unsuccessful (07/2021); currently being seen in [facility] for a trial for valve replacement History of esophagogastroduodenoscopy (EGD) History of cardiac cath (~04/24/21) 03/2021@ [facility] with Dr. Carbajal, no evidence of epicardial CAD S/P angiogram of extremity right lower leg S/P femoral-popliteal bypass surgery History of amputation REVISION OF AMPUTATION LLE History of colonoscopy History of tooth extraction Status post below knee amputation of left lower extremity Status post ORIF of fracture of ankle ORIF closed displaced trimalleolar left ankle fracture (2017) H/O vascular surgery Bilateral femoral endarterectomy with iliac stent (2017) History of appendectomy Family History Unknown No problems noted. Father Family history of diabetes mellitus Breast cancer Diabetes Hypertension Mother Hypertension Other No family history of adverse response to anesthesia Social History Smoking Status: Current every day smoker Tobacco Type: Cigarettes Cigarettes Per Day: 0.5; Second Hand Exposure: Yes; Do You Dip or Chew Tobacco: No; Hx Alcohol Use: Yes Alcohol type: beer Alcohol Intake Frequency: 2-4 x/Month Hx Substance Use: No Preferred Language: Montenegrin Communication Ability: Effective Visual Impairment: No Limitations Distribution Driver Required: No Beliefs That Will Affect Care: None marital status: Current Living Situation: Spouse current occupational status: disabled current occupation: Retired How many Children do You have: 1 Feels Safe at Home: Yes Diet: regular during the past year weight has: decreased > 10 lbs Assistive Devices: Glasses, Hospital Bed and Wheelchair Review of Systems A total of 10 systems reviewed and were otherwise negative Physical Exam Vital Signs Vital Signs - 24 hr 11/10/24 21:02 11/10/24 21:22 11/10/24 22:29 Temperature 36.5 C Temperature Source Oral Pulse Rate 104 H 75 Pulse Rate [Finger] 73 Pulse Rate from SpO2 Sensor Respiratory Rate 16 20 Respiratory Effort / Characteristics Respiratory Depth Blood Pressure 148/82 H Blood Pressure [Right Arm] 144/90 H Blood Pressure Mean 104 Blood Pressure Mean [Right Arm] 108 Pulse Oximetry 96 94 Oxygen Delivery Method Room Air Room Air Sepsis Recent Fever Within 48 Hours No Sepsis New/Unexplained Change in Mental Status No Sepsis Action Taken by Nursing No Action Required 11/10/24 23:15 11/11/24 00:30 11/11/24 01:18 Temperature Temperature Source Pulse Rate 74 67 Pulse Rate [Finger] 69 Pulse Rate from SpO2 Sensor 72 Respiratory Rate 18 12 Respiratory Effort / Characteristics Non-Labored Spontaneous Respiratory Depth Normal Blood Pressure 143/78 H Blood Pressure [Right Arm] 121/60 Blood Pressure Mean 99 Blood Pressure Mean [Right Arm] 80 Pulse Oximetry 93 93 Oxygen Delivery Method Room Air Room Air Sepsis Recent Fever Within 48 Hours Sepsis New/Unexplained Change in Mental Status Sepsis Action Taken by Nursing VITALS: Vitals are noted on the nurse's note and reviewed by myself. Vital signs stable. GENERAL: Pleasant female with partner present, in no acute distress, nondiaphoretic, well-developed well-nourished. SKIN: Left lower pannus groin and thigh erythematous and edematous concerning for candidiasis with secondary cellulitis, culture taken and sent, the rest of the skin was without rashes, erythema, edema, or bruising. There is no tenting of the skin. Capillary reflex less than 2 seconds. HEAD: Normocephalic atraumatic. EARS: External auditory canals clear EYES: Pupils equal round and reactive to light and accommodation. Conjunctivae without injection, sclerae without icterus. Extraocular movements intact. NOSE: Patent, no discharge. MOUTH: Mucous membranes moist. Pharynx without erythema or exudate. Uvula midline. Airway patent. Tongue does not deviate. NECK: Supple without nuchal rigidity. No lymphadenopathy. No thyromegaly. Cervical spine is nontender. No JVD. HEART: Regular rate and rhythm LUNGS: Clear to auscultation bilaterally without wheezes, rales or rhonchi. No retractions or accessory muscle use. ABDOMEN: Positive bowel sounds x 4. Normal tympanic percussion. Soft, tender to palpation left lower abdomen and groin, inguinal lymph node enlargement, without masses or organomegaly. Duncan sign negative. No guarding or rebound tenderness. No CVA tenderness MUSCULOSKELETAL: No muscle atrophy, erythema, or edema noted. Left leg below the knee amputee. NEURO: Patient was alert and oriented to person place and time. Normal sensation to light and sharp touch. No focal neurological deficits. Course Administered Medications Discontinued Medications Hydromorphone HCl (Hydromorphone Inj 0.5 Mg/0.5 Ml Syr) 0.5 mg IV Q15M PRN PRN Reason: Pain Stop: 11/24/24 22:19 Last Admin: 11/11/24 01:34 Dose: 0.5 mg Documented By: Admin: 11/10/24 22:25 Dose: 0.5 mg Documented By: ANGELICA Sodium Chloride (Nss) 1,000 mls @ 999 mls/hr IV .Q1H1M ONE Stop: 11/10/24 22:40 Last Admin: 11/10/24 22:25 Dose: 999 mls/hr Documented By: ANGELICA Cefepime HCl (Maxipime 2000mg) 2,000 mg in 20 mls @ 5 mls/min IV NOW STA; Protocol Stop: 11/10/24 21:43 Last Admin: 11/10/24 22:43 Dose: 5 mls/min Documented By: ANGELICA Ioversol (Optiray 320 125ml) 119 ml IV ONCE ONE Stop: 11/10/24 23:07 Last Admin: 11/10/24 23:07 Dose: 119 ml Documented By: JERMAINE Morphine Sulfate (Morphine Sulfate 4 Mg/Ml 1 Ml Carp\Vial) 4 mg IV NOW STA Stop: 11/10/24 21:41 Last Admin: 11/10/24 22:21 Dose: Not Given Documented By: ANGELICA Nystatin (Nystatin Powder 15gm Btl) 1 appln EXT NOW STA Stop: 11/10/24 21:41 Last Admin: 11/10/24 22:25 Dose: 1 appln Documented By: ANGELICA Ondansetron HCl (Ondansetron Inj 2 Mg/Ml 2 Ml Vial) 4 mg IV NOW STA Stop: 11/10/24 21:41 Last Admin: 11/10/24 22:25 Dose: 4 mg Documented By: ANGELICA Medical Decision Making Medical Records Attestation: I reviewed the patient's medical records. Home Medications Current Medication List: was personally reviewed by me Laboratory Data Attestation: I reviewed the patient's lab results. 11/10/24 21:28 11/10/24 22:41 Lab Results 11/10/24 11/10/24 11/10/24 Range/Units 21:28 21:40 22:41 WBC 9.56 (4.8-10.8) K/ul RBC 3.53 L (4.20-5.40) M/uL Hgb 10.8 L (12.0-16.0) g/dl Hct 34.6 L (37.0-47.0) % MCV 98.0 (80.0-100.0) fL MCH 30.6 (25.0-34.0) pg MCHC 31.2 L (32.0-36.0) g/dL RDW Std Deviation 72.8 H (36.4-46.3) fL RDW Coeff of Marlon 21.0 H (11.5-14.5) % Plt Count 233 (130-400) K/uL MPV 10.8 (9.4-12.4) fL Immature Gran % (Auto) 0.4 % Neut % (Auto) 73.4 % Lymph % (Auto) 16.3 % Granville % (Auto) 6.4 % Eos % (Auto) 2.6 % Baso % (Auto) 0.9 % Neut # (Auto) 7.01 H (1.40-6.50) K/uL Lymph # (Auto) 1.56 (1.20-3.40) K/uL Granville # (Auto) 0.61 H (0.11-0.59) K/uL Eos # (Auto) 0.25 (0.00-0.50) K/uL Baso # (Auto) 0.09 (0.00-0.20) K/uL Immature Gran # (Auto) 0.04 (0.01-0.20) K/uL Polychromasia 1+ Anisocytosis Present Echinocytes 1+ Acanthocytes (Spur) 2+ PT 13.3 H (9.0-12.0) Seconds INR 1.2 H (0.9-1.1) APTT 38 H (21-31) Seconds PTT Ratio 1.4 Sodium 131 L 130 L (136-145) mmol/L Potassium 4.8 5.1 (3.5-5.1) mmol/L Chloride 105 106 (98-107) mmol/L Carbon Dioxide 20 L 17 L (21-32) mmol/L Anion Gap 6 7 (3-11) BUN 9 9 (6-23) mg/dl Creatinine 0.88 0.81 (0.6-1.2) mg/dl Est Cr Clr Drug Dosing Not Reportable Not Reportable eGFR 73.34 81.01 BUN/Creatinine Ratio 10.2 11.1 (10-20) Glucose 92 91 (70-99(Fasting)) mg/dl Osmolality 279 L (280-300) mOsm/kg Lactate 1.4 (0.4-2.0) mmol/L Calcium 9.1 8.6 (8.6-10.3) mg/dl Magnesium 2.0 (1.7-2.4) mg/dl Total Bilirubin 1.9 H 1.9 H (0.2-1.0) mg/dl Direct Bilirubin 0.8 H (0-0.2) mg/dl AST 21 18 (13-39) U/L ALT 5 L 5 L (7-52) U/L Alkaline Phosphatase 196 H 183 H (34-104) U/L Total Creatine Kinase 20 L (26-192) U/L Troponin I High Sens 5.2 4.8 (0-14) pg/ml Total Protein 7.7 7.0 (6.0-8.3) gm/dl Albumin 3.9 3.5 (3.4-5.0) gm/dl Globulin 3.8 (2.5-4.0) gm/dl Albumin/Globulin Ratio 1.0 (0.9-2) Procalcitonin < 0.02 (0-0.5) ng/ml TSH 5.070 H (0.300-4.500) uIu/ml Free T4 1.28 (0.61-1.60) ng/dl Imaging Data Attestation: I personally reviewed and interpreted this imaging study as follows: Radiologist's Impression: Chest X-Ray 11/10/24 21:05 Exam(s): XR CXR 1 VIEW EXAM: XR Chest, 1 View CLINICAL HISTORY: Reason for exam: Chest pain, nonspecific. TECHNIQUE: Frontal view of the chest. COMPARISON: 01/05/2024 FINDINGS: Lungs: Left basilar opacity, infiltrate versus atelectasis. Pulmonary vascular congestion. Pleural space: No pleural effusion. No pneumothorax. Heart: Cardiomegaly. Tubes, lines and devices: Pacemaker leads in place. IMPRESSION: 1. Left basilar opacity, infiltrate versus atelectasis. 2. Pulmonary vascular congestion. Electronically signed by: Tevin Zhou MD 11/10/24 23:18 PM Abdomen/Pelvis CT 11/10/24 21:40 Exam(s): CT ABDOMEN + PELVIS With Contrast IV Amt: 119 ml opti 320 EXAM: CT Abdomen and Pelvis With Intravenous Contrast CLINICAL HISTORY: Reason for exam: llq pain/infx. TECHNIQUE: Axial computed tomography images of the abdomen and pelvis with intravenous contrast. CTDI is 27.51 mGy and DLP is 1355.94 mGy-cm. Automated exposure control was utilized for the study. A dose lowering technique was utilized adhering to the principles of ALARA. CONTRAST: Patient received 119 ml opti 320 of IV contrast COMPARISON: 12/13/23 FINDINGS: Lung bases: Reported separately. ABDOMEN: Liver: Unremarkable. No mass. Gallbladder and bile ducts: Unremarkable. No calcified stones. No ductal dilation. Pancreas: Scattered calcifications in the pancreas suggesting change related to chronic pancreatitis. Presently, no evidence of acute pancreatitis. No ductal dilation. Spleen: Unremarkable. No splenomegaly. Adrenals: Unremarkable. No mass. Kidneys and ureters: Unremarkable. No solid mass. No hydronephrosis. Stomach and bowel: No bowel obstruction. Left hemicolon diverticulosis without evidence of acute diverticulitis. PELVIS: Appendix: Appendix not identified. No secondary signs of appendicitis. Bladder: Unremarkable. No mass. Reproductive: Uterus is small in size. ABDOMEN and PELVIS: Intraperitoneal space: Mild ascites. No free air. Bones/joints: Degenerative change in the lumbar spine. No acute fracture. No dislocation. Soft tissues: Anasarca. Vasculature: Atherosclerosis. Vascular stents suggested in the bilateral iliac and left femoral arteries. No abdominal aortic aneurysm. Lymph nodes: Unremarkable. No enlarged lymph nodes. IMPRESSION: 1. Mild ascites. 2. Anasarca. 3. Diverticulosis without diverticulitis. Electronically signed by: Chandrika Bennett M.D. 11/11/24 00:04 AM Chest CTA 11/10/24 21:40 Exam(s): CTA CHEST IV Amt: 119 ml opti 320 EXAM: CT Angiography Chest With Intravenous Contrast CLINICAL HISTORY: Reason for exam: PE. TECHNIQUE: Axial computed tomographic angiography images of the chest with intravenous contrast. CTDI is 28.14 mGy and DLP is 958.06 mGy-cm. Automated exposure control was utilized for the study. A dose lowering technique was utilized adhering to the principles of ALARA. MIP reconstructed images were created and reviewed. COMPARISON: 07/06/23 FINDINGS: Pulmonary arteries: Adequate pulmonary artery opacification. Normal caliber main pulmonary artery. No evidence of acute pulmonary embolism to the segmental level; more distal levels are obscured by respiratory motion. Aorta: Atherosclerosis of the aorta without aneurysm or dissection. Lungs: Calcified granuloma in the right lung. Left basilar airspace opacity. Pleural space: Small bilateral pleural effusions, left greater than right. No pneumothorax. Heart: Cardiomegaly with right ventricular enlargement and reflux of contrast into the hepatic veins consistent with elevated right heart pressure. Coronary artery atherosclerosis. No pericardial effusion. Bones/joints: Disc degeneration in the thoracic spine. No acute fracture or dislocation. Soft tissues: Anasarca, increased on the left side of the body. Lymph nodes: Unremarkable. No enlarged lymph nodes. Upper abdomen: Mild ascites. Other: Left chest wall dual-lead AICD-pacemaker with leads extending to the right atrium and right ventricle. IMPRESSION: 1. No evidence of acute pulmonary embolism to the segmental level; more distal levels are obscured by respiratory motion. 2. Cardiomegaly with right ventricular enlargement and reflux of contrast into the hepatic veins consistent with elevated right heart pressure. 3. Small bilateral pleural effusions, left greater than right. 4. Left basilar airspace opacity. Atelectasis is favored, but pneumonia cannot be excluded and clinical correlation is requested. 5. Mild ascites. 6. Anasarca, increased on the left side of the body. This may be related to prolonged left decubitus positioning. Electronically signed by: Chandrika Bennett M.D. 11/11/24 00:[address] 11/10/24 21:48 Exam(s): CT C SPINE EXAM: CT Cervical Spine Without Intravenous Contrast CLINICAL HISTORY: Reason for exam: fall, on DOAC. TECHNIQUE: Axial computed tomography images of the cervical spine without intravenous contrast. CTDI is 25.5 mGy and DLP is 564.45 mGy-cm. Automated exposure control was utilized for the study. A dose lowering technique was utilized adhering to the principles of ALARA. COMPARISON: 09/16/21 FINDINGS: Vertebrae: Unremarkable. No acute fracture. No traumatic subluxation. Discs/spinal canal/neural foramina: Multilevel disc degeneration. No significant central canal stenosis. Uncovertebral joint degeneration contributes to multilevel foraminal narrowing. Soft tissues: Unremarkable. IMPRESSION: No acute findings in the cervical spine. Electronically signed by: Chandrika Bennett M.D. 11/11/24 00:[address] 11/10/24 21:48 Exam(s): CT HEAD Without Contrast EXAM: CT Head Without Intravenous Contrast CLINICAL HISTORY: Reason for exam: fall, on DOAC. TECHNIQUE: Axial computed tomography images of the head/brain without intravenous contrast. CTDI is 38.24 mGy and DLP is 624.41 mGy-cm. Automated exposure control was utilized for the study. A dose lowering technique was utilized adhering to the principles of ALARA. COMPARISON: 04/25/23 FINDINGS: Brain: Generalized parenchymal volume loss. Mild chronic small vessel ischemic change. Ortega-white matter differentiation maintained. No hemorrhage, mass effect, parenchymal edema, or midline shift. Chronic lacunar infarcts bilateral thalami. Ventricles: No hydrocephalus. Bones/joints: No acute fracture. Soft tissues: Unremarkable. Vasculature: Intracranial atherosclerosis. Sinuses: No significant sinus disease, as visualized. Mastoid air cells: No significant mastoid effusion. IMPRESSION: No acute intracranial process. Electronically signed by: Chandrika Bennett M.D. 11/10/24 23:53 PM MDM Narrative Prior records/ancillary studies reviewed and summarized above. Nursing notes reviewed. Additional history obtained from family. The patient's history was concerning for left groin infection fall. Differential diagnosis: Etiologies such as metabolic, infection, hypo/hyperglycemia, electrolyte abnormalities, cardiac sources, intracerebral event, toxicologic, neurologic, as well as others were entertained. Physical examination: As above. ER treatment provided: IV Lock An order was placed for continuous cardiac monitoring. The monitor shows a rate of 60-100 with a sinus rhythm per my interpretation. Wound culture taken and sent from the groin, IV fluids, morphine, Zofran, cefepime was ordered On reassessment the patient felt better. Diagnostics interpretation by me: ECG: Ordered for weakness EKG: Paced rhythm with no acute ST-T wave changes, rate of 74. Impression paced rhythm rate of 74 independently interpreted by myself The labs Independently Interpreted by myself revealed hyponatremia and osmolarity levels were sent, mild anemia Normal albumin Imaging studies: Imaging was reviewed and read by radiology Consultation: A consultation was placed with the hospitalist. The case was discussed and diagnostics were reviewed. The patient was evaluated in the ER for further treatment. Exam and history seem consistent with left groin abdominal wall cellulitis with concerns for candidiasis with anasarca. Patient was started on antibiotics and topical antifungal medicine was placed. Medicine was consulted and the case is discussed. Patient will be admitted to the medical service. By the evaluation outlined above emergent etiologies such as cardiac sources, intracerebral event, toxologic, neurologic, abnormalities blood glucose, as well as others were deemed relatively unlikely. The pt informed about the findings as listed above. All questions were answered and pleased with the treatment. The chart was completed utilizing Dragon Speech voice recognition software. Grammatical errors, random word insertions, pronoun errors, and incomplete sentences are an occassional consequence of this system due to software limitations, ambient noise, and hardware issues. Any formal questions or concerns about the content, text, or information contained within the body of this dictation should be directly addressed to the physician assistant clinical director for clarification. Impression & Plan Cellulitis of groin, left, Abdominal wall cellulitis, Candidiasis, Acute hyponatremia, Anasarca Discharge Plan Visit Data Chief Complaint: Infection Stated Complaint: INFECTION ON LT SIDE ED Provider: Mehdi Babin ED Midlevel Provider: Camille Cahndra Discharge Problem: Cellulitis of groin, left, Abdominal wall cellulitis, Candidiasis, Acute hyponatremia, Anasarca Patient Disposition: Admitted As Inpatient Condition: Fair Forms Stand Alone Forms: [facility] [email or web address] Prescriptions Prescriptions: No Action potassium chloride 20 mEq tablet extended release 40 meq PO BID Qty: 120 4RF pantoprazole [Protonix] 40 mg tablet,delayed release (DR/EC) 40 mg PO QAM Qty: 120 3RF bumetanide 2 mg tablet 2 mg PO BID Qty: 180 3RF sodium chloride 1,000 mg tablet,soluble 1,000 mg PO BID Qty: 180 3RF atorvastatin [Lipitor] 80 mg tablet 80 mg PO HS aspirin [Tj Low Dose Aspirin] 81 mg Tablet,Delayed Release (Dr/Ec) 81 mg PO QAM Hold Instructions: Resume on 11/17/23. amitriptyline 50 mg Tablet 50 mg PO HS sennosides-docusate sodium [Senokot-S] 8.6-50 mg Tablet 2 tab PO QAM PRN (Reason: constipation) Qty: 60 0RF Rx Instructions: OTC metoprolol succinate 25 mg tablet extended release 24 hr 25 mg PO BID oxycodone 5 mg capsule 5 mg PO TID PRN (Reason: moderate-severe pain) Eliquis 5 mg Tablet 5 mg PO BID alendronate 70 mg tablet 70 mg PO WK Creon 3,000-9,500- 15,000 unit capsule,delayed release(DR/EC) 1 cap PO UD Rx Instructions: each meal and snack zolpidem [Ambien] 10 mg Tablet 10 mg PO HS pregabalin 300 mg capsule 300 mg PO DAILY Referrals Referrals: Kat Morataya MD [Primary Care Provider] -
[2024-11-10 22:00] LABS: Basophils # (auto) 0.09 K/uL (0.00-0.20); Basophils % (auto) 0.9 %; Eosinophils # (auto) 0.25 K/uL (0.00-0.50); Eosinophils % (auto) 2.6 %; Hematocrit (blood only) 34.6 % (37.0-47.0); Hemoglobin 10.8 g/dl (12.0-16.0); Immature Granulocytes # (auto) 0.04 K/uL (0.01-0.20); Immature Granulocytes % (auto) 0.4 %; Lymphocytes # (auto) 1.56 K/uL (1.20-3.40); Lymphocytes % (auto) 16.3 %; Mean Corpuscular Hemoglobin 30.6 pg (25.0-34.0); Mean Corpuscular Hgb Conc 31.2 g/dL (32.0-36.0); Mean Platelet Volume 10.8 fL (9.4-12.4); Monocytes # (auto) 0.61 K/uL (0.11-0.59); Monocytes % (auto) 6.4 %; Neutrophils # (auto) 7.01 K/uL (1.40-6.50); Neutrophils % (auto) 73.4 %; Platelet Count 233 K/uL (130-400); RDW Standard Deviation 72.8 fL (36.4-46.3); Red Blood Count 3.53 M/uL (4.20-5.40); White Blood Count 9.56 K/ul (4.8-10.8)
[2024-11-10 22:06] LABS: Alanine Aminotransferase 5 U/L (7-52); Albumin Level 3.9 gm/dl (3.4-5.0); Alkaline Phosphatase 196 U/L (34-104); Anion Gap 6 (3-11); Aspartate Aminotransferase 21 U/L (13-39); BUN Creatinine Ratio 10.2 (10-20); Bilirubin,Total 1.9 mg/dl (0.2-1.0); Blood Urea Nitrogen 9 mg/dl (6-23); Calcium 9.1 mg/dl (8.6-10.3); Carbon Dioxide 20 mmol/L (21-32); Chloride 105 mmol/L (98-107); Globulin 3.8 gm/dl (2.5-4.0); Glucose 92 mg/dl (70-99(Fasting)); Potassium 4.8 mmol/L (3.5-5.1); Sodium 131 mmol/L (136-145); Total Protein 7.7 gm/dl (6.0-8.3)
[2024-11-10 22:13] LABS: Troponin I High Sensitivity 5.2 pg/ml (0-14)
[2024-11-10 22:20] LABS: INR 1.2 (0.9-1.1); Partial Thromboplastin Ratio 1.4; Partial Thromboplastin Time 38 Seconds (21-31); Prothrombin Time 13.3 Seconds (9.0-12.0)
[2024-11-10] MEDS: MoRPHine SULFATE 4 MG/ML 1 ML CARP\\VIAL IV STA (22:21)
[2024-11-10] MEDS: HYDROmorphone INJ 0.5 MG/0.5 ML SYR IV PRN (22:25)
[2024-11-10] MEDS: SODIUM CHLORIDE 0.9% 1,000 ML IV ONE (22:25)
[2024-11-10] MEDS: ONDANSETRON INJ 2 MG/ML 2 ML VIAL IV STA (22:25)
[2024-11-10] MEDS: NYSTATIN POWDER 15GM BTL EXT STA (22:25)
[2024-11-10 22:26] LABS: Acanthocytes 2+; Anisocytosis Present; Echinocytes 1+; Polychromasia 1+
[2024-11-10] MEDS: CEFEPIME 2000MG 2,000 MG/20 ML SYR IV STA (22:43)
[2024-11-10] MEDS: OPTIRAY 320 125ml IV ONE (23:07)
--- NOTE | 2024-11-10 23:19 | XRay Report ---
Exam(s): XR CXR 1 VIEW EXAM: XR Chest, 1 View CLINICAL HISTORY: Reason for exam: Chest pain, nonspecific. TECHNIQUE: Frontal view of the chest. COMPARISON: 01/05/2024 FINDINGS: Lungs: Left basilar opacity, infiltrate versus atelectasis. Pulmonary vascular congestion. Pleural space: No pleural effusion. No pneumothorax. Heart: Cardiomegaly. Tubes, lines and devices: Pacemaker leads in place. IMPRESSION: 1. Left basilar opacity, infiltrate versus atelectasis. 2. Pulmonary vascular congestion. Electronically signed by: Tevin Zhou MD 11/10/24 23:18 PM
[2024-11-10 23:23] LABS: Alanine Aminotransferase 5 U/L (7-52); Albumin Level 3.5 gm/dl (3.4-5.0); Alkaline Phosphatase 183 U/L (34-104); Anion Gap 7 (3-11); Aspartate Aminotransferase 18 U/L (13-39); BUN Creatinine Ratio 11.1 (10-20); Bilirubin Direct 0.8 mg/dl (0-0.2); Bilirubin,Total 1.9 mg/dl (0.2-1.0); Blood Urea Nitrogen 9 mg/dl (6-23); Calcium 8.6 mg/dl (8.6-10.3); Carbon Dioxide 17 mmol/L (21-32); Chloride 106 mmol/L (98-107); Glucose 91 mg/dl (70-99(Fasting)); Potassium 5.1 mmol/L (3.5-5.1); Sodium 130 mmol/L (136-145)
[2024-11-10 23:29] LABS: Troponin I High Sensitivity 4.8 pg/ml (0-14)
--- NOTE | 2024-11-10 23:54 | CT Scan Report ---
Exam(s): CT HEAD Without Contrast EXAM: CT Head Without Intravenous Contrast CLINICAL HISTORY: Reason for exam: fall, on DOAC. TECHNIQUE: Axial computed tomography images of the head/brain without intravenous contrast. CTDI is 38.24 mGy and DLP is 624.41 mGy-cm. Automated exposure control was utilized for the study. A dose lowering technique was utilized adhering to the principles of ALARA. COMPARISON: 04/25/23 FINDINGS: Brain: Generalized parenchymal volume loss. Mild chronic small vessel ischemic change. Ortega-white matter differentiation maintained. No hemorrhage, mass effect, parenchymal edema, or midline shift. Chronic lacunar infarcts bilateral thalami. Ventricles: No hydrocephalus. Bones/joints: No acute fracture. Soft tissues: Unremarkable. Vasculature: Intracranial atherosclerosis. Sinuses: No significant sinus disease, as visualized. Mastoid air cells: No significant mastoid effusion. IMPRESSION: No acute intracranial process. Electronically signed by: Chandrika Bennett M.D. 11/10/24 23:53 PM
--- NOTE | 2024-11-11 00:03 | CT Scan Report ---
Exam(s): CTA CHEST IV Amt: 119 ml opti 320 EXAM: CT Angiography Chest With Intravenous Contrast CLINICAL HISTORY: Reason for exam: PE. TECHNIQUE: Axial computed tomographic angiography images of the chest with intravenous contrast. CTDI is 28.14 mGy and DLP is 958.06 mGy-cm. Automated exposure control was utilized for the study. A dose lowering technique was utilized adhering to the principles of ALARA. MIP reconstructed images were created and reviewed. COMPARISON: 07/06/23 FINDINGS: Pulmonary arteries: Adequate pulmonary artery opacification. Normal caliber main pulmonary artery. No evidence of acute pulmonary embolism to the segmental level; more distal levels are obscured by respiratory motion. Aorta: Atherosclerosis of the aorta without aneurysm or dissection. Lungs: Calcified granuloma in the right lung. Left basilar airspace opacity. Pleural space: Small bilateral pleural effusions, left greater than right. No pneumothorax. Heart: Cardiomegaly with right ventricular enlargement and reflux of contrast into the hepatic veins consistent with elevated right heart pressure. Coronary artery atherosclerosis. No pericardial effusion. Bones/joints: Disc degeneration in the thoracic spine. No acute fracture or dislocation. Soft tissues: Anasarca, increased on the left side of the body. Lymph nodes: Unremarkable. No enlarged lymph nodes. Upper abdomen: Mild ascites. Other: Left chest wall dual-lead AICD-pacemaker with leads extending to the right atrium and right ventricle. IMPRESSION: 1. No evidence of acute pulmonary embolism to the segmental level; more distal levels are obscured by respiratory motion. 2. Cardiomegaly with right ventricular enlargement and reflux of contrast into the hepatic veins consistent with elevated right heart pressure. 3. Small bilateral pleural effusions, left greater than right. 4. Left basilar airspace opacity. Atelectasis is favored, but pneumonia cannot be excluded and clinical correlation is requested. 5. Mild ascites. 6. Anasarca, increased on the left side of the body. This may be related to prolonged left decubitus positioning. Electronically signed by: Chandrika Bennett M.D. 11/11/24 00:02 AM
--- NOTE | 2024-11-11 00:05 | CT Scan Report ---
Exam(s): CT ABDOMEN + PELVIS With Contrast IV Amt: 119 ml opti 320 EXAM: CT Abdomen and Pelvis With Intravenous Contrast CLINICAL HISTORY: Reason for exam: llq pain/infx. TECHNIQUE: Axial computed tomography images of the abdomen and pelvis with intravenous contrast. CTDI is 27.51 mGy and DLP is 1355.94 mGy-cm. Automated exposure control was utilized for the study. A dose lowering technique was utilized adhering to the principles of ALARA. CONTRAST: Patient received 119 ml opti 320 of IV contrast COMPARISON: 12/13/23 FINDINGS: Lung bases: Reported separately. ABDOMEN: Liver: Unremarkable. No mass. Gallbladder and bile ducts: Unremarkable. No calcified stones. No ductal dilation. Pancreas: Scattered calcifications in the pancreas suggesting change related to chronic pancreatitis. Presently, no evidence of acute pancreatitis. No ductal dilation. Spleen: Unremarkable. No splenomegaly. Adrenals: Unremarkable. No mass. Kidneys and ureters: Unremarkable. No solid mass. No hydronephrosis. Stomach and bowel: No bowel obstruction. Left hemicolon diverticulosis without evidence of acute diverticulitis. PELVIS: Appendix: Appendix not identified. No secondary signs of appendicitis. Bladder: Unremarkable. No mass. Reproductive: Uterus is small in size. ABDOMEN and PELVIS: Intraperitoneal space: Mild ascites. No free air. Bones/joints: Degenerative change in the lumbar spine. No acute fracture. No dislocation. Soft tissues: Anasarca. Vasculature: Atherosclerosis. Vascular stents suggested in the bilateral iliac and left femoral arteries. No abdominal aortic aneurysm. Lymph nodes: Unremarkable. No enlarged lymph nodes. IMPRESSION: 1. Mild ascites. 2. Anasarca. 3. Diverticulosis without diverticulitis. Electronically signed by: Chandrika Bennett M.D. 11/11/24 00:04 AM
--- NOTE | 2024-11-11 00:07 | CT Scan Report ---
Exam(s): CT C SPINE EXAM: CT Cervical Spine Without Intravenous Contrast CLINICAL HISTORY: Reason for exam: fall, on DOAC. TECHNIQUE: Axial computed tomography images of the cervical spine without intravenous contrast. CTDI is 25.5 mGy and DLP is 564.45 mGy-cm. Automated exposure control was utilized for the study. A dose lowering technique was utilized adhering to the principles of ALARA. COMPARISON: 09/16/21 FINDINGS: Vertebrae: Unremarkable. No acute fracture. No traumatic subluxation. Discs/spinal canal/neural foramina: Multilevel disc degeneration. No significant central canal stenosis. Uncovertebral joint degeneration contributes to multilevel foraminal narrowing. Soft tissues: Unremarkable. IMPRESSION: No acute findings in the cervical spine. Electronically signed by: Chandrika Bennett M.D. 11/11/24 00:06 AM
[2024-11-11 00:36] LABS: Creatine Kinase 20 U/L (26-192)
--- OUTSIDE RECORDS SUMMARY | 2024-11-11 00:41 | External Medical Summary | Continuity of Care Document ---
Author Name Unknown Organization [address] [id number] Care Team Providers Care Mangle Feeder Name Role Phone Rafia Kat Caity Primary Care Physician [phone] [id number] Date(s): 09/06/24 - 09/06/[address] [address] [phone] Encounter Diagnosis Alcoholism(Discharge Diagnosis) - 09/06/24 Adrenal mass 1 cm to 4 cm in diameter(Discharge Diagnosis) - 09/06/24 Chronic GERD(Discharge Diagnosis) - 09/06/24 Chronic pancreatitis(Discharge Diagnosis) - 09/06/24 Epigastric pain(Discharge Diagnosis) - 09/06/24 Discharge Disposition: Home or Self Care Attending Physician: NOREEN Fisher Kelli Jo Referring Physician: MD Philip Brian D Allergies, Adverse Reactions, Alerts Substance Criticality Severity Reaction Reaction Severity Status acetaminophen Unable to assess criticality Severe LIVER DAMAGE-DUE TO FAILURE Active NIFEdipine unknown Active Adhesive bandage skin irritation Active guanFACINE unknown Active amoxicillin liver failure Acti ve Chantix intractible nausea/vomitting Active Assessment and Plan Extracted from: Title:Office Visit Note Author:NOREEN Fisher Kell i Jo Date:09/06/24 The patient is a very pleasa nt 64-year-old femalepresents with her husbandfor follow-up of chronic pancreatitis. 1. Chronic pancreatitis: - Secondary to chronic alcoholism. Continues to consume alcohol with varyingdegree. Reinforced that complete abstinence from alcohol is recommended - Upper EUS at [facility] emonstrated findings consistent with moderate to severechronic pancreatitis. - She is on Creon 3 times daily. - 08/03/2024 Dr. Philip informed pt that we would provide 90 day of heroxycodone forpainand taper thereafter if not assumedby alternate provided 2/2 his departure from our clinic. Pain contract completed previously. Her dose is oxycodone 5 mg po TID. This is being assumed by PCP Janie Back PA-Cper pt. - Cardiacsurgery unsuccessful at [facility] 10/2022. - Did previously obtain IgG4 testing which was within normal limits. Most recent EUS emonstrated chronic pancreatitis. Adrenal mass was identified with biopsy obtained pathology demonstrating adenoma. Patient is an established patient of Dr. Murcia, per patient request, reached out to him for further recommendations. 2. Abnormal imaging of the pancreas: Patient had CT imaging due to abdominal pain demonstrating acute on chronic pancreatitis but also noted a new fluid collection. Subsequently an MRCP was obtained 04/16/2023 demonstrating a 2.1 cm complex structure in the region of the pancreatic head. EUS findings as outlined in HPI 3. CRC surveillance: Most recent colonoscopy 12/2012 with no polyps and recommendation of repeat colonoscopy 12/2017 due to family history GI follow up in12 months, sooner if needed. I have spent 34minutes in evaluation, education and documentation of this pt in both face to face and non-face to face activities. Immunizations Given and Recorded Vaccine Date Status Refusal Reason influenza virus vaccine, inactivated 08/03/24 Give n influenza virus vaccine, inactivated 08/05/23 Give n influenza virus vaccine, inactivated 08/03/22 Give n influenza virus vaccine, inactivated 09/02/21 Give n influenza virus vaccine, inactivated 07/13/19 Give n influenza virus vaccine, inactivated 07/21/18 Roge rded SARS-CoV-2 (COVID-19) mRNA BNT-162b2 vax 12/06/20 Recorded SARS-CoV-2 (COVID-19) mRNA BNT-162b2 vax 11/15/20 Recorded tetanus/diphtheria/pertuss, acel (Tdap) 12/06/12 R ecorded pneumococcal 23-valent vaccine 04/03/09 Recorded tetanus toxoids-diphtheria, Td (Adult) 09/04/03 Re corded Medications alendronate 70 mg oral tablet Start: 01/25/24 1:07:00 PM EDT, 1 tab, PO, q7days Start Date: 01/25/24 Status: Ordered Ambien 10 mg oral tablet Start: 09/01/24 12:45:00 PM EST, 1 tab, PO, qhs, Disp# 30 tab, Refills: 5, PRN: as needed for sleep,Pharmacy: [id number] Start Date: 09/01/24 Status: Ordered amitriptyline 50 mg oral tablet Start: 07/17/24 10:28:00 AM EDT, 1 tab, PO, qhs, Disp# 30 tab, Refills: 11, Pharmacy: [id number] Start Date: 07/17/24 Status: Ordered aspirin 81 mg oral delayed release tablet Start: 11/14/19 10:17:00 AM EST, 1 tab, PO, Daily, Disp# 90 tab, Refills: 3, other Start Date: 11/14/19 Status: Ordered atorvastatin 80 mg oral tablet Start: 09/13/23 2:24:00 PM EST, See Instructions, Disp# 90 tab, Refills: 3, TAKE 1 TABLET BY MOUTH ONCE DAILY, Pharmacy: [id number] Start Date: 09/13/23 Status: Ordered bumetanide 2 mg oral tablet Start: 02/04/24 1:15:00 PM EDT, 1 tab, PO, bid, Disp# 180 tab, Refills: 3, other Start Date: 02/04/24 Status: Ordered Creon 3000 units oral delayed release capsule Start: 08/21/24 5:08:00 PM EST, See Instructions, Disp# 120 cap, Refills: 5, TAKE 1 CAPSULE BY MOUTH WITH EACH MEAL AND SNACK, Pharmacy: [id number] Start Date: 08/21/24 Status: Ordered Eliquis 5 mg oral tablet Start: 08/02/24 11:52:00 AM EST, 1 tab, PO, bid, Disp# 60 tab, Refills: 2, Pharmacy: [id number] Start Date: 08/02/24 Status: Ordered Metoprolol Succinate ER 25 mg oral tablet, extended release Start: 09/01/24 12:44:00 PM EST, 1 tab, PO, bid, Disp# 60 tab, Refills: 5, Pharmacy: [id number] Start Date: 09/01/24 Status: Ordered ondansetron 8 mg oral tablet Start: 02/29/24 10:08:00 AM EDT, 1 tab, PO, tid, Disp# 30 tab, Refills: 1, PRN: as needed for nausea/vomiting, Pharmacy: [id number] Start Date: 02/29/24 Status: Ordered oxyCODONE 5 mg oral tablet Start: 08/22/24 1:18:00 PM EST, 5 mg =, PO, tid, Disp# 90 tab, Refills: 0, CHRONIC REFILL, Note to Pharmacy: 30 day refill for 07/20/2024, Pharmacy: [id number] Start Date: 08/22/24 Status: Ordered pantoprazole 40 mg oral delayed release tablet Start: 05/03/23 12:10:00 PM EDT, 1 tab, PO, Daily, Disp# 90 tab, Refills: 3, Pharmacy: [id number] Start Date: 05/03/23 Status: Ordered Potassium Chloride ([id number] M20) 20 mEq oral tablet, extended release Start: 09/29/23 12:48:00 PM EST, 1 tab, PO, bid, Disp# 60 tab, Refills: 5, Pharmacy: [id number] Start Date: 09/29/23 Status: Ordered pregabalin 100 mg oral capsule Start: 02/29/24 10:08:00 AM EDT, 1 cap, PO, bid, Disp# 180 cap, Refills: 2, Pharmacy: [id number] Start Date: 02/29/24 Status: Ordered Sodium Chloride 1 g oral tablet Start: 05/13/22 9:50:00 AM EDT, 1 tab, PO, Daily, Disp# 30 tab, Refills: 1, Pharmacy: [id number] Start Date: 05/13/22 Status: Ordered Mental Status 09/06/24 Barriers to Learning one year None evide nt Mandatory Health Literacy Documentation Yes Health Literacy Communication Barriers N ever Primary Language Luxembour[place] Problem List Condition Confirmation Course Effective Dates Status H ealth Status Informant Adrenal mass 1 cm to 4 cm in diameter Confirmed Active Alcoholism Confirmed Active Anxiety Confirmed Active (atherosclerosis) Confirmed Active Atrial fibrillation Confirmed Active AV block Confirmed Active Benign essential HTN Confirmed Active Pacemaker Confirmed Active Carotid artery stenosis Confirmed Active Chronic diastolic (congestive) heart failure Confirmed Active Chronic hyponatremia Confirmed Active Chronic insomnia Confirmed Active Pain syndrome, chronic Confirmed Active Chronic pancreatitis Confirmed Active Cigarette smoker Confirmed Active Elevated liver enzymes Confirmed Active Epigastric pain Confirmed Active Anterior femoral cutaneous neuropathy Confirmed Active Chronic GERD Confirmed Active S/P femoral-popliteal bypass surgery Confirmed Active Dyslipidemia, goal LDL below 70 Confirmed Active Hyponatremia Confirmed Active Iron deficiency Confirmed Active Iron deficiency anemia Confirmed Active Abnormal magnetic resonance imaging of abdomen Confirmed Active Mitral regurgitation Confirmed Active History of left below knee amputation Confirmed Active Femoral-popliteal bypass graft occlusion Confirmed Active Right leg pain Confirmed Active PAD (peripheral artery disease) Confirmed Active Sinus node dysfunction Confirmed Active Stump neuralgia Confirmed Active Thiamine deficiency Confirmed Active Tobacco abuse Confirmed Active Diagnosis Diagnosis Type Effective Dates Health Status Clinical Service Informant Chronic GERD Discharge Diagnosis 09/06/24 Non-Specified Epigastric pain Discharge Diagnosis 09/06/24 Non-Specified Alcoholism Discharge Diagnosis 09/06/24 Non-Specified Adrenal mass 1 cm to 4 cm in diameter Discharge Diagnosis 09/06/24 Non-Specified Chronic pancreatitis Discharge Diagnosis 09/06/24 Non-Specified Procedures Procedure Date Related Diagnosis Body Site Status rle open thrombectomy, bovin e patch angioplasty of bpg, external iliac art stent, fem-pop to post tib jump bpg 01/06/[address] of abdomen and pelvis 1 07/06/23 Completed Endoscopic ultrasound report 2 06/04/23 Completed Upper GI (gastrointestinal) endoscopy 3, 4 06/04/23 Completed Debridement 5 09/17/22 Completed Chest x-ray 6 09/16/[address] angiography of chest with contrast 7 09/16/[address] of abdomen and pelvis wit h contrast 8 09/16/[address] of cervical spine 9 09/16/[address] of head 10 09/16/21 Completed I and D Right groin 11 08/14/21 Co mpleted Cardiac catheterization 12 04/22/[address] of abdomen and pelvis wit h contrast 13 02/18/21 Completed Upper GI endoscopy 14 01/10/21 Com pleted Upper GI endoscopy 15 01/10/[address] angiography of abdomen an d pelvis 16 05/13/20 Completed Femoral artery bypass 17 12/20/19 Completed Procedure 18 12/15/[address] of abdomen 19 11/29/19 Complete d Cardiac pacemaker 20 08/01/19 Comp leted Chest x-ray 21 02/10/[address] of abdomen and pelvis wit h contrast 22 02/10/[address] of lower leg without cont rast, left 23 11/20/18 Completed Chest x-ray 24 07/18/[address] of abdomen and pelvis wit h contrast 25 07/18/18 Completed MRI of lower leg 26 06/22/18 Compl eted Chest x-ray 27 04/28/18 Completed KUB X-ray 28 04/28/18 Completed Ultrasound scan of upper abdomen 29 04/28/18 Completed Chest x-ray 30 08/16/17 Completed Left BKA - Below knee amputation 05/27/17 Completed Insertion of popliteal arter y sten,Left 31 05/06/17 Completed Closed reduction and fixatio n of fracture 32 12/18/[address] angiogram of thorax, abdo men and pelvis with contrast 33 10/08/16 Complete d Insertion of stent into femo ral artery- bilateral 09/2016 Completed Debridement of wound of skin 2016 Completed MRI of abdomen 34 10/02/15 Complet ed Colonoscopy 35 12/29/12 Completed Incision and drainage of amaris ast abscess, Left 36 06/30/07 Completed Biopsy of Left breast 2002 Com pleted Appendectomy 1979 Completed Chest x-ray [address] [place] [address] IMPRESSION: 1. Mild edema surrounding the pancreas, concerning for mild acute pancreatitis. Mild wall thickening of the adjacent duodenum. 2. Which is low attenuation in the posterior spleen, measuring approximately 5.0 x 3.0 cm, consistent with splenic infarct. 3. Decompressed urinary bladder which contains a Torres catheter. 4. Diverticulosis, without acute diverticulitis. No bowel obstruction. No free air [address] [place] [address] Impression: 1.There was no sign of significant pathology in the ampulla. 2. There was no sign of significant pathology in the common blle duct 3. There was no sign of significant pathology in the gallbladder. 4. There was abnormal echogenicity In the visualized portion of the liver. This was hyperechoic. Tissue has not been obtained. However, the endosonographic appearance is suggestive of fatty infiltration. 5. Endosonographic imaging of the pancreas showed sonographic changes consistent with moderate-severe chronic pancreatitis 6. A mass measuring 24 mm by 19 mm was identified endosonographically in the left adrenal gland. Fine needle aspiration performed. [address] [place] [address] Impression: - 1. Normal esophagus. 2. Z-line regular, 38 cm from the incisors. 3. Gastritis. Biopsied 4. Normal examined duodenum 4Pathology results: Stomach, antrum, biopsy: mild chronic gastritis with reactive cellular changes. H. pylori immunohistochemistry stain is negative 5[facility] Debridement of necrotic bone and soft tissue and associated infected periodontally infected teeth to allow mitral valve replacement (lower jaw) 6[facility] Impression: 1. Possible minimal right lower lung opacity 7[facility] Impression: 1. No evidence of pulmonary embolism 8[facility] Impression: 1. No acute abnormalities 2. Redemonstration of contracted gallbladder, some pericholecystic fluid is seen. This is nonspecific, clinical correlation to exclude symptoms of acute cholecystitis is recommended. 3. Stable adrenal nodules 4. Extensive atherosclerosis biliac stent 5. Diverticulosis without evidence of diverticulitis 9[facility] Imrpession: 1. No evidence of acute bony injury 10[facility] Impression: 1. No acute intracranial hemorrhage, no evidence of acute territorial infarction or other acute intracranial disease process 11Debridement right groin (12 cm x 2 cm) 12[facility] Impression: 1. Essentially normal coronary arteries. Long left main with minimal luminal regularities 2. Elevated left and right-sided filling pressures 3. Borderline pulmonary hypertension 4. Low Mallory cardiac output 5. LVEF 60 % with 2+ MR 13Impression: Minimal peripancreatic infiltration and fluid. The findings favor acute pancreatitis. Less likely, the findings could reflect residual from episode of pancreatitis shown on CT of November. No peripancreatic fluid collection. No biliary or pancraetic ductal dilatation. A few prominent peripancreatic lymph nodes. These are indeterminate although probably benign. A follow-up CT of the abdomen in 6 months is recommended to ensure stability/resoluton. 14Normal esophagus, stomach, examined duodenum. No specimens collected Continue present meications & return to PCP PRN 15[facility] Impression: 1. Normal esophagus 2. Normal stomach 3. Normal examined duodenum 4. No specimens collected 16[facility] Impression: 1. There are no acute infectious or inflammatory findings in the abdomen or pelvis 2. Advanced atherosclerotic change is noted throughout the abdominal aorta and iliac arteries 3. No aneurysm or dissection is seen 4. Bilateral iliac artery stents are patent 5. There is complete thrombosis of the stented left superficial femoral artery. This is unchanged from 02/10/2019 6. Mild to moderate colonic diverticulosis without CT evidence of acute diverticulitis 17[facility] Right femoral popliteal prosthetic bypass, right common femoral artery endartectomy with josé patch 18[facility] Right lower extremity angiogram, attempted right superficial femoral artery angioplasty and stending, US localization of left femoral artery 19[facility] Impression: 1. Pancreatitis 20[facility] 21[facility] Impression: 1. No acute cardiopulmonary findings 22[facility] Impression: 1. Peripancreatic standing, suggestive of pancreatitis. No organized fluid collection 2. Mildy distended gallbladder 3. Small hiatal hernia 4. Colonic diverticulitis. Mild descending colon and sigmoid wall thickening may be related to underdistension 5. Left adrenal nodules 6. Mild basilar atelectatic changes 23[facility] Impression: 1. Ulceration at the below the knee indication stump with significant associated fluid and inflammatory change tracking to the distal tibia, where there is an intraosseous abscess. The presence of intraosseous gas is consistent with a gas- forming organism 24[facility] Impression: 1. Negative chest 25[facility] Impression: 1. Findings consistent with interstitial edematous pancreatitis. No acute peripancreatic fluid collection 2. Atrophy of the pancreatic body-neck likely relates to chronic recurrent episodes of pancreatitis. No evidene of necrosis or pancreatic mass 3. Grossly patent biliac and left femoral stents 4. Multiple indeterminate left adrenal nodules measuring up to 2.3 cm. These have been stable sinceat least 10/08/2016 and have been previously characterized as benign adenomas. 261. Findings are consistent with an insufficiency fracture of the tibial plateau. 2. No additional foci of marrow signal abnormality are identified. 3. There is generalized atrophy of ther egional musculature. 27Impression: No acute process 28Impression: Nonobstructive bowel gas pattern No urolith identified. 29[facility] Impression: 1. Hepatomegaly and hepatic steatosis 2. No gallstones identified 30[facility] Impression: 1. No acute cardiopulmonary abnormality 31[facility] 32Left ankle 33[facility] Impression: 1. No CT evidence of acute pulmonary embolism 2. Scattered wispy groundglass opacities most pronounced in the left upper lobe. These could be inflammatory. Clinical correlation is advocated 3. 3 mm and 5 mm left upper lobe pulmonary nodules 34[facility] Impression: 1. Left adrenal adenomas 35[facility] 36Dr. Arbutina 37[facility] Impression: 1. Interval development of reticular nodular prominence of pulmonary interstitium with bilateral lower lungs, right more than left, could represent pulmonary edema or developing pneumonia. Further evaluation with PA and lateral chest radiograph might be considered Vital Signs Most recent to oldest [Reference Range]: 1 Heart Rate 64 bpm (09/06/24 1:38 PM) Respiratory Rate 17 br/min (09/06/24 1:38 PM) Blood Pressure 102/76mmHg (09/06/24 1:38 PM) Social History Social History Type Response Tobacco Current every day sm oker, Cigarettes Smoking Status Current every day he hernandez smoker Sex Female Sex Representation Female (finding) Gastroenterology Outpatient Note * NOREEN Fisher, Kailey Wolf: PERFORM Event Display: Gastroenterology Outpt Note Authored Date: Chief Complaint 1 month follow up. History of Present Illness The patient is a pleasant [id number] presents today forfollow-up evaluation ofchronic pancreatitis. Previously managed by Dr. Philip and Jaymie Dawson DNP prior to him. [facility],and past medical historyreviewed. Prior abdominal surgical history:Appendectomy Prior records: 12/29/2012: Colonoscopy notes reviewed performed for screening purposes which demonstrated abnormal perianal exam with findings including nonthrombosed external hemorrhoids. The terminal ileum was normal. There were multiple medium mouth diverticula found in the sigmoid colon. There were no specimens collected. It is recommended the patient repeat colonoscopy in 5 years for surveillance dueto family history. 01/10/2021: EGD was obtained due to dysphagia which demonstrated normal examined esophagus; normal examined stomach; normal examined duodenum without specimens collected. 02/18/2021: CT of the abdomen and pelvis with IV contrast was obtained and demonstrated 1. Minimalperipancreatic infiltration and fluid. The findings favor acute pancreatitis. Less likely, the findings could reflect residual from episode of pancreatitis shown on CT of November 28, 2020. No peripancreatic fluid collection. No biliary or pancreatic ductal dilatation. 2. A few prominent peripancreatic lymph nodes. These are indeterminate although probably benign. A follow-up CT of the abdomen in 6months is recommended to ensure stability/resolution. 06/16/2021: Upper EUS is reviewed performed at [facility] and demonstrated changes consistent with chronic calcific pancreatitis and fibrosis: No mass or asymmetric lobularity or signs of typical infiltrating neoplastic disease to target for FNA/biopsy, however it is difficult to exclude occult malignancy given calcific disease of pancreas parenchyma and artifact. 07/17/2021: IgG4 testing within normal limits. 04/30/2022 GI OV: patient presents today for follow-up of chronicpancreatitis. Chronic pancreatitis is being managed with oxycodone 5 mg, 1 tab p.o. 3 times daily that is helpful. Without the medication has fairlyconstant epigastric pain to varying degrees. She had been scheduledto havea procedure [facility]for refractory [facility]itis[facility], but givenher heart failure is terminalshe opted to forego this procedure. Pancreatitis is secondary to chronic alcoholism. She does continue to drink an average ofa six packof beerper week. This is confirmed by her .Drinking issometimes more, sometimes less. She reports she gets intermittent epigastric abdominalpain averaging about 2 to 3 days/week. Doing well with the oxycodone as noted above. No nausea or vomiting. Denies any appetite changes. Reports thatshe is experiencing no difficulty with bowel movements at the present time. Continues compliance with Creon 3times daily for chronic pancreatitis. She has Zofran at home to be used as needed. The patient reports that she has an appointment [facility] 05/07[facility]22to discusssurgical procedurefor her leaky heart valve. If she undergoes this procedure successfully, we will revisitprocedural intervention for her chronic pancreatitis 10/30/2022 GI OV: Patient presents today for follow-up of chronic pancreatitis. Pancreatitis is secondary to chronic alcoholism. She does continue to drink an average ofa six packof beerper week. This is confirmed by her .Drinking issometimes more, sometimes less. Her chronic pancreatitis is being managed with oxycodone 5 mg, 1 tablet p.o. 3 times daily. This is helpful in controlling her symptoms. Without the medication she has fairly constant epigastric pain. To varying degrees. She has upcoming heart surgery11/18/2022 at the [facility].She hadbeen scheduledto have a procedure donefor refractory pancreatitisat [facility], but given heartfailure is terminalshe opted to forego this procedure.If she undergoes this procedure successfully, we will revisitprocedural intervention for her chronic pancreatitis. She reports she gets intermittent epigastric abdominal pain averaging about 2 to 3 days/week. Doing well with the oxycodone as noted above. No nausea or vomiting. Denies any appetite changes. Reports thatfredy is experiencing no difficulty with bowel movements at the present time. Continues compliance with Creon 3times daily for chronic pancreatitis. She has Zofran at home to be used as needed.She did have a follow-up about 2 weeks ago. She reports she fell backwards and hit her head. No loss of consciousness. She does have some swelling noted to right occipital region. 01/27/2023 GI OV: The patient presents today for follow-up of chronic pancreatitis. Pancreatitisis secondary to chronic alcoholism. She reports thatfredy did have recent episode of increased abdominal painand nausea. This was preceded byincreased alcohol intake due to some stress. Herlabs were checked by her overhead foreman which demonstrated normal LFTsand mild elevation of lipase (83) with normal amylase. Her chronic pancreatitis is being managed with oxycodone 5 mg, 1 tablet p.o. 3 times daily. This is helpful in controlling her symptoms. Without the medication she has fairly constant epigastric pain. To varying degrees. Unsuccessful heart surgery for her heart failure at [facility] 10/2022. She is now applying for 2 clinical trials. Spouse accompanies her today. 04/15/2023 - 04/18/2023: Inpatient admission notes are reviewed from [facility] due to pancreatitis. Patient admitted to ETOH intake prior to inpatient admission. CT A/P with IV contrast demonstrated findings are compatible with pancreatitis of the pancreatic head. A new fluid collection may represent an acute peripancreatic fluid collection. Thickening of the duodenum is likely reactive. 04/16/2023: MRCP demonstrated 1. Normal MRCP assessment of the gallbladder and biliary tree. 2. Acute pancreatitis with surrounding inflammation and fluid. 3. A 2.1 cm complex structure in the region of the pancreatic head likely corresponds to the small fluid collection seen on yesterday's abdominal CT. This cannot be further assessed by MRCP. GI follow-up is recommended, as is a follow- up CT scan in several weeks' time for reevaluation. 4. Duodenal wall thickening is likely related to adjacentpancreatitis. 04/29/2023 GI OV:The patient presents today withwith her and family memberdue torecent admission for acute on chronic pancreatitis with abnormal imaging findingswhile inpatient of the pancreas. She reports that since discharge she has had some continued abdominal pain. She has been taking a whole 10 mg tablet of oxycodone as opposed to the 5 mg she was prescribed. It was reinforced today that she will need to return to the 5 mg dose and future prescriptions will be withthe 5 mg tablet. She deniesbowel movement difficulty. She did have a fallin the interim since her last office visit and does have a right ankle medial avulsion fracture. Her right lower extr emity is in a walking boot. 06/04/2023: EGD notes are reviewed performed due to abnormal MRI of the GI tract demonstrated normal esophagus. Z-line was regular found 38 cm from the incisors. Diffuse mild inflammation characterized by congestion, erythema, granularity found in the entire examined stomach with biopsies obtained for histology. Duodenum was normal. Pathology results demonstrated mild chronic gastritis negative for H. pylori. 06/04/2023: EUS was obtained due to history of chronic pancreatitis which demonstrated no sign of significant endosonographically abnormality in the ampulla. No pathologic lymphadenopathy and no masses identified.No significant endosonographic abnormality in the common bile duct. The maximum d iameter of the duct was 5 mm.No stones, no biliary sludgeand ducts of normal caliber were identified. No sign of significant endosonographic abnormality in the gallbladder.Unremarkable gallbladder identified. There was abnormal echogenicity in the visualized portion of the liver. This area was hyperechoic.Endosonographic imaging of the pancreas showed sonographic changes indicative of moderatesevere chronic pancreatitis in the entire pancreas.The parenchyma had atrophy, calcifications, hyperechoic foci with shadowing and lobularity with honeycombing. The pancreatic duct had hyperechoic duct margin. The pancreatic duct measured up to 2 mm in diameter. No lymphadenopathy was seen.An oval mass was identified endosonographically in the left adrenal gland. The mass was hypoechoic.Timesthe mass measured 24 mm x 19 mm in maximal cross-sectional diameter. The margins were smooth. Intact interface was seen between the mass and adjacent structures suggesting a lack of invasion. The laceration pathology was performed. 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 06/09/2023 GI OV:The patient presents in the office today for routine follow-up of chronic pancreatitis with her . She had recent EUSand results were reviewed with her today. She reports that she continues to have some continued abdominal pain. She is using oxycodone 5 mgas prescribed. She reports significant decrease in alcohol intakebut does not quantify amount she is currently drinking. She continues to have someright ankle pain. No further falls. No difficulty withbowel movement. 07/06/2023[facility] ER/hospitalization: starting for shortness of breath and hypoxia. Thought from fluid overload. 07/06/2023Labs CBC WBC 13.2, Hgb 7.7 , CMP Na 129 L, gluc 158 H, TB 1.7 H alk phos 171 H, troponin nl, lactate 3.3 07/06/2023 CXR:neg 07/06/2023 CTA pulm edema, atelectasis 07/06/2023 CT a/p with IV contrastcardiomegaly, mild edema of pancreas with adjacent duodenum thickening, splenic infarct, diverticulosis. 08/05/2023 Cardiology OVsevere MR with diastolic heart failure high risk for colonoscopy ----- 09/10/2023OV (Philip):Pt has no black nor bloody stools. Pt states she can function with narcotics to control epigastric abd pain.GERD is controlled on Protonix.She is on pancreas enzyme replacement. 09/10/2023 Labs: BMPnl, CBC Hgb 11.1 L 09/15/2023 Heme onc note Fe def, splenic infarct, 10/01/2023labs Fe sat 8% L, folate nl, ferritin 18.8 nl, renal profile Na 134 L, K 2.8 L, PO4 2.1 L, CBC Hgb 10.3 L 10/04/2023enal noted 10/05/2023endocrine OV for adrenal nodules 10/13/2023 heme onc OVFe def 11/04-[facility] hospital for GI bleeding, Hgb 9, treated with IV Fe and supportive care, DC Hgb 8.6 11/04/2023T a/p splenic infarct, chronic pancreatitis, wall thickening right colo to DC, prominentabd node. 11/18/2023Labs: CBC Hgb 10.0. Was on Xarelto in the hospital held for about a week. The bleeding was red and clots 11/22/2023 OV Radhatao Mccanneyordered CTA and switch to Eliquis. 12/13/2023 OV (Cedrick): Pt states she had CT and BW today but no results yet.Sometimes BM has red tinge but but not the clots like before.Has chronic abd pain from chronic pancreatitis. 01/05/2024dmit [facility] for ischemic RLE thrombectomy and bypass. 03/08/2024OV (Cedrick): Pt stopped blood thinners in anticipation of a port placement and then had the artery blockage in the leg.Epigastric pain stable on the pain pills 2-4 per day. 06/07/2024 OV (Cedrick): Had surgery on leg for artery blockage.Pt on oxycodone for epigastric painfrom pancreatitis stable.On pancreas enzymes also. 08/03/2024OV (Cedrick):Pt is on pancreas enzymes and oxycodone tj able to function with the pain of chronic pancreatitis.Pantoprazole controls GERD. 09/06/2024OV (Simco):Patient presents today for a [facility] alternate providers in our GI office. She states thatupon leaving her appointment with Dr. Philip last month they addressed the oxycodone coverage with their PCP Janie Back PA-C. Per wandae was apain management referraland agreement made with her. Patient describes her pain as chronic 5/10 and a dull ache. She states it can reach a 7/10 and feels like someone is punching to get out of her. She states it is in the epigastrium and can radiate towards the umbilicus. She continues to drink about 1.5-2.5 beers per day. She otherwise denies any GI complaints today. She denies dysphagia, heartburn, nausea, vomiting, other abdominal pain, diarrhea or constipation. Patient does report to me that 2 years ago she was told she had 6 months to live. She was seen in [facility] for avalve replacement, but ultimatelythey were unable to complete this for her. Social history: Patient is a current smoker. She reports that she smokes 0.5 packs of cigarettes per dayand hasfor the last 40 years. She reports that she used to be a very heavy alcohol drinker. She reports that shedrank a 12 pack of dayof beer for many years. She reports that now she drinks 1-2 beersabout every 1 to 2 weeks. She denies any recreational drug use. She does have a medical marijuana card but is not currently using it. She is on disability. She is and has 1 adult daughter. No further complaints or concerns today. Physical Exam Vitals & Measurements HR:64(Monitored) RR:17 BP:102/76 SpO2:95% General:Alert and oriented, No acute distress, appears stated age HENT:Normocephalic, normal hearing Respiratory: Respiration are non-labored, pt speaking in complete sentences,and no evidence of respiratory distress is noted Integumentary:Exposed skin viewable is dry and intact Psychiatric:Cooperative, appropriate mood & affect, Normal judgement Assessment/Plan The patient is a very pleasant 64-year-old femalepresents with her husbandfor follow-up of chronic pancreatitis. 1. Chronic pancreatitis: - Secondary to chronic alcoholism. Continues to consume alcohol with varyingdegree. Reinforced that complete abstinence from alcohol is recommended - Upper EUS at [facility] emonstrated findings consistent with moderate to severechronic pancreatitis. - She is on Creon 3 times daily. - 08/03/2024 Dr. Philip informed pt that we would provide 90 day of heroxycodone forpainand taper thereafter if not assumedby alternate provided 2/2 his departure from our clinic. Pain contract completed previously. Her dose is oxycodone 5 mg po TID. This is being assumed by PCP Janie SEE-Cper pt. - [facility]. - Did previously obtain IgG4 testing which was within normal limits. Most recent EUS emonstrated chronic pancreatitis. Adrenal mass was identified with biopsy obtained pathology demonstrating adenoma. Patient is an established patient of Dr. Murcia, per patient request, reached out to him for further recommendations. 2. Abnormal imaging of the pancreas: Patient had CT imaging due to abdominal pain demonstrating acute on chronic pancreatitis but also noted a new fluid collection. Subsequently an MRCP was obtained 04/16/2023 demonstrating a 2.1 cm complex structure in the region of the pancreatic head. EUS findings as outlined in HPI 3. CRC surveillance: Most recent colonoscopy 12/2012 with no polyps and recommendation of repeat colonoscopy 12/2017 due to family history GI follow up in12 months, sooner if needed. I have spent 34minutes in evaluation, education and documentation of this pt in both face to face and non-face to face activities. Problem List/Past Medical History Ongoing Abnormal magnetic resonance imaging of abdomen Adrenal mass 1 cm to 4 cm in diameter Alcoholism Anterior femoral cutaneous neuropathy Anxiety (atherosclerosis) Atrial fibrillation AV block Benign essential HTN Carotid artery stenosis Chronic diastolic (congestive) heart failure Chronic GERD Chronic hyponatremia Chronic insomnia Chronic pancreatitis Cigarette smoker Dyslipidemia, goal LDL below 70 Elevated liver enzymes Epigastric pain Femoral-popliteal bypass graft occlusion History of left below knee amputation Hyponatremia Iron deficiency Iron deficiency anemia Mitral regurgitation Pacemaker PAD (peripheral artery disease) Pain syndrome, chronic Right leg pain S/P femoral-popliteal bypass surgery Sinus node dysfunction Stump neuralgia Thiamine deficiency Tobacco abuse Resolved Acute cystitis Acute pancreatitis Alcohol abuse Anemia of chronic disease Arm pain, left Bilateral thumb pain Body rash Central chest pain Chronic osteomyelitis Diarrhea Draining cutaneous sinus tract History of heavy alcohol consumption History of pancreatitis Infected hematoma Infection of amputation stump Nasal sinus congestion PICC line infection Saphenous neuralgia Procedure/Surgical History rle open thrombectomy, bovine patch angioplasty of bpg, external iliac art stent, fem-pop to post tib jump bpg| Service Date: 4CT of abdomen and pelvis| Service Date: 07/06/2023Endoscopic ultrasound report| Service Date: 06/04/2023Upper GI (gastrointestinal) endoscopy| Service Date: 06/04/2023ebridement| Service Date: 2CT of head| Service Date: 09/16/2021hest x-ray| Service Date: 09/16/2021T of abdomen and pelvis with contrast| Service Date: 09/16/2021T of cervical spine| Service Date: 09/16/2021T angiography of chest with contrast| ServiceDate: 09/16/2021I and D Right groin| Service Date: 1Cardiac catheterization| Service Date: 04/22/2021T of abdomen and pelvis with contrast| Service Date: 02/18/2021Upper GI endoscopy| Service Date: 01/10/2021Upper GI endoscopy| Service Date: 01/10/2021T angiography of abdomen and pelvis| Service Date: 05/13/2020Femoral artery bypass| Service Date: 12/20/2019Procedure| Service Date: 12/15/2019CT of abdomen| Service Date: 11/29/2019Cardiac pacemaker| Service Date: 08/01/2019Chest x-ray| Service Date: 02/10/2019CT of abdomen and pelvis with contrast| Service Date: 02/10/2019CT of lower leg without contrast, left| Service Date: 11/20/2018Chest x-ray| Service Date: 07/18/2018CT of abdomen and pelvis with contrast| Service Date: 07/18/2018 MRI of lower leg| Service Date: 06/22/2018Ultrasound scan of upper abdomen| Service Date: 04/28/2018Chest x-ray| Service Date: 04/28/2018KUB X-ray| Service Date: 04/28/2018Chest x-ray| Service Date: 08/16/2017Left BKA - Below knee amputation| Service Date: 05/27/2017Insertion ofpopliteal artery sten,Left| Service Date: 05/06/2017Closed reduction and fixation of fracture| Service Date: 12/18/2016CT angiogram of thorax, abdomen and pelvis with contrast| Service Date: 10/08/2016Debridement of wound of skin| Service Date: 2016Insertion of stent into femoral artery- bilateral| Service Date: 09/2016MRI of abdomen| Service Date: 10/02/2015Colonoscopy| ServiceDate: 12/29/2012Incision and drainage of breast abscess, Left| Service Date: 06/30/2007Biopsyof Left breast| Service Date: 2002Appendectomy| Service Date: 1979Ches x-ray| Service Date: 1960 Medications alendronate(alendronate 70 mg oral tablet), 70 mg= 1 tab, PO, q7days amitriptyline(amitriptyline 50 mg oral tablet), 1 tab, PO, qhs, 11 refills apixaban(Eliquis 5 mg oral tablet), 1 tab, PO, bid aspirin(aspirin 81 mg oral delayed release tablet), 81 mg= 1 tab, PO, Daily, 3 refills atorvastatin(atorvastatin 80 mg oral tablet), See Instructions, 3 refills bumetanide(bumetanide 2 mg oral tablet), 2 mg= 1 tab, PO, bid, 3 refills metoprolol(Metoprolol Succinate ER 25 mg oral tablet, extended release), 1 tab, PO, bid ondansetron(ondansetron 8 mg oral tablet), 8 mg= 1 tab, PO, tid, PRN, 1 refills oxyCODONE(oxyCODONE 5 mg oral tablet), 5 mg, PO, tid pancrelipase(Creon 3000 units oral delayed release capsule), See Instructions, 5 refills pantoprazole(pantoprazole 40 mg oral delayed release tablet), 40 mg= 1 tab, PO, Daily, 3 refills potassium chloride(Potassium Chloride (Wcr-Ktbi-Hew M20) 20 mEq oral tablet, extended release), 20 mEq= 1 tab, PO, bid, 5 refills pregabalin(pregabalin 100 mg oral capsule), 100 mg= 1 cap, PO, bid, 2 refills sodium chloride(Sodium Chloride 1 g oral tablet), 1 g= 1 tab, PO, Daily, 1 refills zolpidem(Ambien 10 mg oral tablet), 10 mg= 1 tab, PO, qhs, PRN, 5 refills Allergies acetaminophen(Severe)LIVER DAMAGE-DUE TO FAILURE Adhesive bandageskin irritation Chantixintractible nausea/vomitting NIFEdipineunknown amoxicillinliver failure guanFACINEunknown Social History Smoking Status Current every day heavy smoker Alcohol - High Risk Use:Current Type:Beer Frequency:Several times per day Tobacco - High Risk Use:Current every day smoker Type:Cigarettes Family History Breast cancer: Father. Cardiovascular disease: Father. Carotid artery stenosis: Father. Diabetes mellitus: Father. Heart disease: Mother and Father. Hypertension: Father. Health Status Family Member(s) Immunizations Vaccine Date Status influenza virus vaccine, inactivated 08/03/2024 Given influenza virus vaccine, inactivated 08/05/2023 Given influenza virus vaccine, inactivated 08/03/2022 Given influenza virus vaccine, inactivated 09/02/2021 Given SARS-CoV-2 (COVID-19) mRNA BNT-162b2 vax 12/06/2020 Recorded SARS-CoV-2 (COVID-19) mRNA BNT-162b2 vax 11/15/2020 Recorded influenza virus vaccine, inactivated 07/13/2019 Given influenza virus vaccine, inactivated 07/21/2018 Recorded tetanus/diphtheria/pertuss, acel (Tdap) 12/06/2012 Recorded pneumococcal 23-valent vaccine 04/03/2009 Recorded tetanus toxoids-diphtheria, Td (Adult) 09/04/2003 Recorded Recommendations Health Maintenance Pending(in the next year) There are no current recommendations pending Due In Future Adult Influenza Vaccine not due until03/26/25and every 1year Satisfied(in the past 1 year) Satisfied Adult Influenza Vaccine on08/03/24.Satisfied by CHAZ De Oliveira Kim Electronic Signature on File CC: Janie Back PA-C,[facility] [address] [place] [address] Electronically Reviewed/Signed by: Kailey Fisher PA-C Author Signature Dt/Tm:09/06/2024 02:14 PM Division of Gastroenterology [facility] Patient Care team information Care Team Personnel Name: EMMY Leon Tara Position: Nurse Pract - Family Med Member Role: Lifetime Relationship Address: [address] [place] [address] [place] Name: MD Morataya Amy L Position: Physician - Family Med Member Role: Primary Care Provider Address: [address] [place] [address] [place] Name: Pritesh Granados Francis Position: Pharmacist Schedule II Member Role: Pharmacy - Lifetime Address: [facility] [address] [place] [address] [place] Name: NOREEN Leigh Lynn Position: Physician School Nurse Exempt - Vasc Surg Member Role: Lifetime Relationship Address: [address] [place] [address] [place] Name: Pritesh Arevalo Joy Position: Pharmacist Schedule II Member Role: Pharmacy - Lifetime Care Team Related Persons Name: VENTURA MCCALL Name: VENTURA MCCALL Name: VENTURA MCCALL Name: MIRIAN MCCALL Name: MIRIAN MCCALL"
--- OUTSIDE RECORDS SUMMARY | 2024-11-11 00:41 | External Medical Summary | Continuity of Care Document ---
Author Name Unknown Organization [place] [address] [facility] Address [address] [place] [phone] Care Team Providers Care Charging Board Operator Name Role Phone Kat Morataya Primary Care Physician [phone] [id number] Date[facility] 09/29/24 - 09/29/24 [facility] [address], [address] [place] [address] [phone] Encounter Diagnosis LOM (loss of memory)(Discharge Diagnosis) - 09/29/24 Hallucination, visual(Discharge Diagnosis) - 09/29/24 Other amnesia(Final) - Discharge Disposition: Home or Self Care Attending Physician: MD Morataya Amy L Allergies, Adverse Reactions, Alerts Substance Criticality Severity Reaction Reaction Severity Status acetaminophen Unable to assess criticality Severe LIVER DAMAGE-DUE TO FAILURE Active NIFEdipine unknown Active Adhesive bandage skin irritation Active guanFACINE unknown Active amoxicillin liver failure Acti ve Chantix intractible nausea/vomitting Active Assessment and Plan Extracted from: Title:Office Visit Note Author:MD Rafia, Kat Carolina D ate:09/29/24 1.LOM (loss of memory) STATUS: Chronic, with someprogression. DATA: hx (of pt & spouse)reviewed. GOAL: eval & txcauseofchangein mentalstatus,maintain cognitivestability. PLAN: discussedfrankly thatthis islikelyrelatedto her hx ofheavyalcoholabuse. Both she& her husbandunderstandthis& agree.Willget TSH,VitB12 level& TrepAb. Discussedotheroptions,suchas neuroimaging, neurology referral&/or neuropsych testing.They willconsiderthese&may callif readytopursueanyof these. 2.Hallucination, visual STATUS: Chronic, worse. DATA: hx (of spouse)reviewed. GOAL: eval & txcauseofsx. PLAN: mert,mary. Thismaybeindicator of Korsakoff'sencephalopathy. Fortunately, her visions &/or delusions have been fleeting & largely harmless. Return in 2-3 months. Time:Total time spent with this patient on day of evaluation including chart review, ordering, education and coordination of care elements: 34_ minutes Immunizations Given and Recorded Vaccine Date Status [...] Refills: 5, PRN: as needed for sleep,Pharmacy: [id number] Start Date: 09/01/24 Status: Ordered amitriptyline 50 mg oral tablet Start: 07/17/24 10:28:00 AM EDT, 1 tab, PO, qhs, Disp# 30 tab, Refills: 11, Pharmacy: [id number] Start Date: 07/17/24 Status: Ordered aspirin 81 mg oral delayed release tablet Start: 11/14/19 10:17:00 AM EST, 1 tab, PO, Daily, Disp# 90 tab, Refills: 3, other Start Date: 11/14/19 Status: Ordered atorvastatin 80 mg oral tablet Start: 09/13/23 2:24:00 PM EST, See Instructions, Disp# 90 tab, Refills: 3, TAKE 1 TABLET BY MOUTH ONCE DAILY, Pharmacy: [id number] Start Date: 09/13/23 Status: Ordered bumetanide 2 mg oral tablet Start: 02/04/24 1:15:00 PM EDT, 1 tab, PO, bid, Disp# 180 tab, Refills: 3, other Start Date: 02/04/24 Status: Ordered Creon 3000 units oral delayed release capsule Start: 08/21/24 5:08:00 PM EST, See Instructions, Disp# 120 cap, Refills: 5, TAKE 1 CAPSULE BY MOUTH WITH EACH MEAL AND SNACK, Pharmacy: [id number] Start Date: 08/21/24 Status: Ordered Eliquis 5 mg oral tablet Start: 08/02/24 11:52:00 AM EST, 1 tab, PO, bid, Disp# 60 tab, Refills: 2, Pharmacy: [id number] Start Date: 08/02/24 Status: Ordered Metoprolol Succinate ER 25 mg oral tablet, extended release Start: 09/01/24 12:44:00 PM EST, 1 tab, PO, bid, Disp# 60 tab, Refills: 5, Pharmacy: [id number] Start Date: 09/01/24 Status: Ordered ondansetron 8 mg oral tablet Start: 02/29/24 10:08:00 AM EDT, 1 tab, PO, tid, Disp# 30 tab, Refills: 1, PRN: as needed for nausea/vomiting, Pharmacy: [id number] Start Date: 02/29/24 Status: Ordered oxyCODONE 5 mg oral tablet Start: 09/18/24 5:34:00 PM EST, 5 mg =, PO, tid, Disp# 90 tab, Refills: 0, CHRONIC REFILL, Note to Pharmacy: 30 day refill for 07/20/2024, Pharmacy: [id number] Start Date: 09/18/24 Status: Ordered pantoprazole 40 mg oral delayed release tablet Start: 05/03/23 12:10:00 PM EDT, 1 tab, PO, Daily, Disp# 90 tab, Refills: 3, Pharmacy: [id number] Start Date: 05/03/23 Status: Ordered Potassium Chloride (Hut-Wano-Asf M20) 20 mEq oral tablet, extended release Start: 09/29/23 12:48:00 PM EST, 1 tab, PO, bid, Disp# 60 tab, Refills: 5, Pharmacy: [id number] Start Date: 09/29/23 Status: Ordered pregabalin 100 mg oral capsule Start: 02/29/24 10:08:00 AM EDT, 1 cap, PO, bid, Disp# 180 cap, Refills: 2, Pharmacy: [id number] Start Date: 02/29/24 Status: Ordered Sodium Chloride 1 g oral tablet Start: 05/13/22 9:50:00 AM EDT, 1 tab, PO, Daily, Disp# 30 tab, Refills: 1, Pharmacy: [id number] Start Date: 05/13/22 Status: Ordered Mental Status 09/29/24 Barriers to Learning one year None evide nt Mandatory Health Literacy Documentation Yes Health Literacy Communication Barriers N ever Primary Language American Problem List Condition Confirmation Course Effective Dates [...] deficiency Confirmed Active Tobacco abuse Confirmed Active Hallucination, visual Confirmed Active Diagnosis Diagnosis Type Effective Dates Health Status Cl inical Service Informant LOM (loss of memory) Discharge Diagnosis 09/29/24 Non-Specified Hallucination, visual Discharge Diagnosis 09/29/24 Non-Specified Procedures Procedure Date Related Diagnosis Body [...] 36 06/30/07 Completed Biopsy of Left breast 2003 Com pleted Appendectomy 1979 Completed Chest x-ray 37 [address] [place] [address] IMPRESSION: 1. Mild edema surrounding the pancreas, concerning for mild acute pancreatitis. Mild wall thickening of the adjacent duodenum. 2. Which is low attenuation in the posterior spleen, measuring approximately 5.0 x 3.0 cm, consistent with splenic infarct. 3. Decompressed urinary bladder which contains a Torres catheter. 4. Diverticulosis, without acute diverticulitis. No bowel obstruction. No free air [address] [place] [address] Impression: 1.There was no sign of significant [...] left adrenal gland. Fine [facility]. [facility] Impression: - 1. Normal esophagus. 2. Z-line regular, 38 cm from the incisors. 3. Gastritis. Biopsied 4. Normal examined duodenum 4Pathology results: Stomach, antrum, biopsy: mild chronic gastritis with reactive cellular changes. H. pylori immunohistochemistry stain is negative 5[facility] Debridement of necrotic bone and soft tissue and associated infected periodontally infected teeth to allow mitral valve replacement (lower jaw) [facility] Impression: 1. Possible minimal right lower lung opacity 7[facility] Impression: 1. No evidence of pulmonary embolism 8[facility] Impression: 1. No acute abnormalities 2. Redemonstration of contracted gallbladder, some pericholecystic fluid is seen. This is nonspecific, clinical correlation to exclude symptoms of acute cholecystitis is recommended. 3. Stable adrenal nodules 4. Extensive atherosclerosis biliac stent 5. Diverticulosis without evidence of diverticulitis 9[facility] Imrpession: 1. No evidence of acute bony injury 10[facility] Impression: 1. No acute intracranial hemorrhage, no evidence of acute territorial infarction or other acute intracranial disease process 11Debridement right groin (12 cm x 2 cm) 12[facility] Impression: 1. Essentially normal coronary [...] meications & return to PCP PRN 15[facility] Impression: 1. Normal esophagus 2. Normal stomach 3. Normal examined duodenum 4. No specimens collected 16[facility] Impression: 1. There are no [...] without CT evidence of acute diverticulitis 17[facility] Right femoral popliteal prosthetic bypass, right common femoral artery endartectomy with josé patch 18[facility] Right lower extremity angiogram, attempted right superficial femoral artery angioplasty and stending, US localization of left femoral artery 19[facility] Impression: 1. Pancreatitis 20[facility] 21[facility] Impression: 1. No acute cardiopulmonary findings 22[facility] Impression: 1. Peripancreatic standing, suggestive of pancreatitis. No organized fluid collection 2. Mildy distended gallbladder 3. Small hiatal hernia 4. Colonic diverticulitis. Mild descending colon and sigmoid wall thickening may be related to underdistension 5. Left adrenal nodules 6. Mild basilar atelectatic changes 23[facility] Impression: 1. Ulceration at the below the knee indication stump with significant associated fluid and inflammatory change tracking to the distal tibia, where there is an intraosseous abscess. The presence of intraosseous gas is consistent with a gas- forming organism 24[facility] Impression: 1. Negative chest 25[facility] Impression: 1. Findings consistent with [...] bowel gas pattern No urolith identified. 29[facility] Impression: 1. Hepatomegaly and hepatic steatosis 2. No gallstones identified 30[facility] Impression: 1. No acute cardiopulmonary abnormality [facility] 32Left ankle 33[facility] Impression: 1. No CT evidence of acute pulmonary embolism 2. Scattered wispy groundglass opacities most pronounced in the left upper lobe. These could be inflammatory. Clinical correlation is advocated 3. 3 mm and 5 mm left upper lobe pulmonary nodules [facility] Impression: 1. Left adrenal adenomas [facility] 36Dr. Arbutina 37[facility] Impression: 1. Interval development of reticular nodular prominence of pulmonary interstitium with bilateral lower lungs, right more than left, could represent pulmonary edema or developing pneumonia. Further evaluation with PA and lateral chest radiograph might be considered Results Laboratory List Name Date Thyroid Stimulating Hormone (TSH) 09/29/24 Treponemal Ab Screen (TREPONEMAL AB SCRE EN) 09/29/24 Vitamin B12 Level (VITAMIN B12) 09/29/24 Most recent to oldest [Reference Range]: 1 Treponemal Ab Screen [NR] NONREACTIVE *Unknown* (09/29/24 4:12 PM) B12 [211-946 pg/mL] 435 pg/mL (09/29/24 4:12 PM) TSH [0.30-4.20 uIU/mL] 2.48 uIU/mL (09/29/24 4:12 PM) Vital Signs Most recent to oldest [Reference Range]: 1 Heart Rate 70 bpm (09/29/24 3:30 PM) Respiratory Rate 20 br/min (09/29/24 3:30 PM) Blood Pressure 112/70mmHg (09/29/24 3:30 PM) Cuff Pulse Pressure 42 mmHg (09/29/24 3:30 PM) BP Location # 1 Left Arm (09/29/24 3:30 PM) Social History Social History Type Response Tobacco Current every day sm oker, Cigarettes Smoking Status Current every day he hernandez smoker Sex Female Sex Representation Female (finding) [facility] Outpt Note * MD Rafia, Kat Carolina: PERFORM Event Display: [facility] Outpt Note Authored Date: [id number] Chief Complaint discuss memory loss, possible hallucinations History of Present Illness Here for following concerns : Memory loss - she is worried about memory loss, possible "early dementia." Both she & her have become more concerned about her memory for long time, but has been worse in last few months.She told her in conversation thattheyhadgone to her father's house, but they didn't. She has seen people in her house, even in bed with her. None of thesehallucinations arefrightening to her.She knows that she oftenforgets conversations that they had. 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 She does getup at night & does things that she doesn't remember the next day. 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 Her had to take this over, because she was making too many mistakes. She drinks very little alcohol now, because her throws it away before she can drink it. Physical Exam Vitals & Measurements HR:70(Monitored) RR:20 BP:112/70 SpO2:95% PHQ2 Data(Data Documented on:09/29/2024 15:30) Emotional health assessment NEGATIVE General : Alert, in NAD. Respiratory : Speaks easily in full sentences, with no respiratory distress. Psych : answers all questions slowly, but usuallywithappropriate answers, mood seems flat. Neuro : CN II-XII intact, huoroa-ht-jwhi performed slowly with difficulty. MMSE 26/30. Assessment/Plan 1.LOM (loss of memory) STATUS: Chronic, with someprogression. DATA: hx (of pt & spouse)reviewed. GOAL: eval & txcauseofchangein mentalstatus,maintain cognitivestability. PLAN: discussedfrankly thatthis islikelyrelatedto her hx ofheavyalcoholabuse. Both she& her husbandunderstandthis& agree.Willget TSH,VitB12 level& TrepAb. Discussedotheroptions,suchas neuroimaging, neurology referral&/or neuropsychtesting.They willconsiderthese&may callif readytopursueanyof these. 2.Hallucination, visual STATUS: Chronic, worse. DATA: hx (of spouse)reviewed. GOAL: eval & txcauseofsx. PLAN: discussed,asabove. Thismaybeindicator of Korsakoff'sencephalopathy. Fortunately, her visions &/or delusions have been fleeting & largely harmless. Return in 2-3 months. Time:Total time spent with this patient on day of evaluation including chart review, ordering, education and coordination of care elements: 34_ minutes Problem List/Past Medical History Ongoing Abnormal magnetic [...] enzymes Epigastric pain Femoral-popliteal bypass graft occlusion Hallucination, visual History of left below knee amputation Hyponatremia [...] Date: 06/04/2023Upper GI (gastrointestinal) endoscopy| Service Date: 3Debridement| Service Date: 2CT of head| Service Date: 09/16/2021hest x-ray| Service Date: 09/16/2021T of abdomen and pelvis with contrast| Service Date: 09/16/2021T of cervical spine| Service Date: 09/16/2021T angiography of chest with contrast| ServiceDate: 09/16/2021I and D Right groin| Service Date: 08/14/2021ardiac catheterization| Service Date: 04/22/2021T of abdomen and [...] Left breast| Service Date: 2002Appendectomy| Service Date: 1979Chest x-ray| Service Date: 1960 Medications alendronate(alendronate 70 [...] PO, Daily, 3 refills potassium chloride(Potassium Chloride (Ayk-Czkx-Huc M20) 20 mEq oral tablet, extended release), [...] In Future Adult Influenza Vaccine not due until03/27/25and every 1year Satisfied(in the past 1 year) Satisfied Adult Influenza Vaccine on08/03/24.Satisfied by CHAZ De Oliveira Kim Electronic Signature on File Electronically Reviewed/Signed by: Kat Morataya MD Author Signature Dt/Tm:09/29/2024 07:33 PM Coremaking Supervisor [facility] [address] [address] [facility] Patient Care team information Care Team Personnel Name: EMMY Leon Tara Position: Nurse Pract - Family Med Member Role: Lifetime Relationship Address: [address] [place] [id number] Name: MD Morataya Amy L Position: Physician - Family Med Member Role: Primary Care Provider Address: [address] [place] [address], [place] [address] [place] Name: Pritesh Granados Francis Position: Pharmacist Schedule II Member Role: Pharmacy - Lifetime Address: [facility] [address] [place] [id number] [place] Name: NOREEN Leigh Lynn Position: Physician Implementation Project Manager Exempt - Vasc Surg Member Role: Lifetime Relationship Address: [address] [address] [place] Name: Pritesh Arevalo Joy Position: Pharmacist Schedule II Member Role: Pharmacy - Lifetime Care Team Related Persons Name: VENTURA MCCALL Name: VENTURA MCCALL Name: VENTURA MCCALL Name: MIRIAN MCCALL Name: MIRIAN MCCALL
[2024-11-11] MEDS ORDERED: HYDROmorphone INJ 0.5 MG/0.5 ML SYR IV PRN ×2 (01:02→05:13)
--- NOTE | 2024-11-11 01:21 | History & Physical Report ---
Date of Service November 11, 2024 Assessment & Plan (1) Abdominal wall cellulitis: (2) Cellulitis of groin, left: (3) Hyperkalemia: (4) Chronic hyponatremia: Plan The patient is a 64-year-old female with a past medical history including left BKA, status post right bypass several years ago, history abdominal wall cellulitis and left groin cellulitis, iron deficiency anemia, chronic respiratory failure, pancreatic cyst, periodontal disease, ANUG, Tatian, COPD, chronic pain syndrome, neuralgia, GERD, pression with anxiety, tension, history of CABG surgery as noted, dyslipidemia, PVD, history of ORIF ankle fracture. Patient presents to the emergency department with worsening left groin cellulitis and pain, she notes worsening after falling DKA earlier in the day today. She has been eating and drinking as per usual. Taking medications as directed. She has no generalized complaints sweats fevers or chills. She reports normal bowel and urinary function. Her is with her, does help her with ADLs at home. The patient was noted to have severe left groin erythema , induration and pain, was started on cefepime and nystatin powder, received Dilaudid 0.5 mg IV, normal saline 1 L bolus, morphine sulfate 4 mg IV and Zofran 4 mg IV, and and was then referred for evaluation for admission to the [facility]. #Severe left groin cellulitis- Looks to be combination of bacterial and fungal/candidal Received cefepime 2 g IV from the ED Continue cefepime 2 g IV every 12 hours Add daptomycin 275 mg IV daily Add fluconazole 200 mg IV daily Would avoid any further nystatin powder, as it looks to be acting like more sandpaper Will consult wound care Asked the ED to provide a barrier between skin folds Patient is unable to take Tylenol due to liver dysfunction history Continue oxycodone 5 mg p.o. 3 times daily changed from as needed to scheduled and hold for excessive sedation, due to baseline constant pain Dilaudid 0.5 mg IV every 3 hours as needed for moderate pain Dilaudid 1 mg IV every 3 hours as needed for severe pain Ascites/anasarca/hypoalbuminemia- Patient looks more to be on the dry side but then overload. Hyperkalemia- Potassium 5.1 on admission Placed on NSS at 80 mL/h x 1 L, recheck laboratories in the a.m. Hold potassium chloride, bumetanide Atrial fibrillation/hypertension-continue aspirin, Eliquis, metoprolol succinate Hold potassium chloride and bumetanide as noted above Chronic medical conditions: Chronic hyponatremia/SIADH history-Continue sodium chloride 1 g p.o. twice daily. Sodium 130 admission, serum osmolality 279 and urine osmolality pending.Serial laboratories Exocrine pancreatic insufficiency-Continue Creon GERD-continue pantoprazole Peripheral neuropathy-continue amitriptyline pregabalin History of Present Illness Chief Complaint: The patient presents to with complaint of worsening left groin pain, that has been gradually worsening over few days, but noted worsening after she fell on her left BKA earlier in the day today Primary Care Provider: Kat Morataya MD The patient is a 64-year-old female with a past medical history including left BKA, status post right bypass several years ago, history abdominal wall cellulitis and left groin cellulitis, iron deficiency anemia, chronic respiratory failure, pancreatic cyst, periodontal disease, ANUG, Tatian, COPD, chronic pain syndrome, neuralgia, GERD, pression with anxiety, tension, history of CABG surgery as noted, dyslipidemia, PVD, history of ORIF ankle fracture. Patient presents to the emergency department with worsening left groin cellulitis and pain, she notes worsening after falling DKA earlier in the day today. She has been eating and drinking as per usual. Taking medications as directed. She has no generalized complaints sweats fevers or chills. She reports normal bowel and urinary function. Her is with her, does help her with ADLs at home. The patient was noted to have severe left groin erythema, induration and pain, was started on cefepime and nystatin powder, received Dilaudid 0.5 mg IV, normal saline 1 L bolus, morphine sulfate 4 mg IV and Zofran 4 mg IV, and and was then referred for evaluation for admission to the [facility] Allergies Allergy/AdvReac Type Severity Reaction Status Date / Time adhesive Allergy Severe SEVERE Verified 04/03/24 14:51 SKIN IRRITATION guanfacine Allergy Intermediate BP PROBLEMS Verified 04/03/24 14:51 nifedipine Allergy Intermediate BP PROBLEMS Verified 04/03/24 14:51 acetaminophen AdvReac Severe LIVER Verified 04/03/24 14:51 DAMAGE-DUE TO FAILURE amoxicillin AdvReac Severe LIVER Verified 04/03/24 14:51 FAILURE clavulanic acid AdvReac Severe LIVER Verified 04/03/24 14:51 FAILURE Home Medications Medication Instructions Recorded Confirmed Type atorvastatin 80 mg tablet (Lipitor) 80 mg PO HS 06/06/19 11/11/24 History aspirin 81 mg tablet,delayed 81 mg PO QAM 12/19/19 11/11/24 History release (Tj Low Dose Aspirin) amitriptyline 50 mg tablet 50 mg PO HS 09/11/22 11/11/24 History sennosides 8.6 mg-docusate sodium 2 tab PO QAM PRN constipation #60 04/18/23 11/11/24 Rx 50 mg tablet (Senokot-S) tabs metoprolol succinate 25 mg 25 mg PO BID 04/25/23 11/11/24 History tablet,extended release 24 hr oxycodone 5 mg capsule 5 mg PO TID PRN moderate-severe 11/04/23 11/11/24 History pain apixaban 5 mg tablet (Eliquis) 5 mg PO BID 12/31/23 11/11/24 History alendronate 70 mg tablet 70 mg PO WK 01/05/24 11/11/24 History lbfvms-owhnamka-nfwihkw 1 cap PO UD 01/05/24 11/11/24 History 3,000-9,500-15,000 unit capsule, delayed rel (Creon) zolpidem 10 mg tablet (Ambien) 10 mg PO HS 01/05/24 11/11/24 History potassium chloride 20 mEq 40 meq (2 x 20 mEq) PO BID #120 05/18/24 11/11/24 Rx tablet,extended release tabs pantoprazole 40 mg tablet,delayed 40 mg PO QAM #120 tabs 08/21/24 11/11/24 Rx release (Protonix) bumetanide 2 mg tablet 2 mg PO BID #180 tabs 08/23/24 11/11/24 Rx sodium chloride 1,000 mg soluble 1,000 mg PO BID #180 tabs 09/04/24 11/11/24 Rx tablet pregabalin 300 mg capsule 300 mg PO QAM 11/11/24 11/11/24 History Past Med/Surg History Problem List (Updated 02/03/24 @ 00:10 by Background Dilip) Hyperkalemia Anasarca (Acute) Acute hyponatremia (Acute) Candidiasis (Acute) Abdominal wall cellulitis (Acute) Cellulitis of groin, left (Acute) Ischemia of right lower extremity Poor intravenous access Abdominal pain (Acute) Colitis (Acute) Metabolic acidosis Iron deficiency anemia Acute respiratory failure with hypoxia Elevated lactic acid level (Acute) Leukocytosis (Acute) Acute respiratory failure with hypoxia and hypercarbia (Acute) Shortness of breath (Acute) Anemia (Acute) Chronic hyponatremia (Acute) Abdominal pain (Acute) Pancreatic cyst Mandibular bony exostosis Carious teeth Periodontal disease ANUG (acute necrotizing ulcerative gingivitis) Hyponatremia Encounter for pre-operative examination shelter (current) use of anticoagulants (Acute) Mitral regurgitation COPD (chronic obstructive pulmonary disease) (Acute) Chronic pain syndrome Pacemaker (Acute) Smoker (Acute) Atherosclerosis of artery of extremity with rest pain Stump neuralgia GERD (gastroesophageal reflux disease) Depression Anxiety (HFpEF) heart failure with preserved ejection fraction Secondary to severe mitral regurgitation HTN (hypertension) Chronic atrial fibrillation (Acute) On Elijaredis Follows with Dr. Zarate ([facility]) PVD (peripheral vascular disease) S/p left BKA Dyslipidemia H/O vascular surgery Bilateral femoral endarterectomy with iliac stent (2017) Status post ORIF of fracture of ankle ORIF closed displaced trimalleolar left ankle fracture (2017) Status post below knee amputation of left lower extremity Medical History History of anesthesia reaction woke up in middle of an EGD once at [facility] Acute GI bleeding Oct 2023, hospitalized at [facility] > due to this, patient switched from Xarelto to Eliquis > no further bleeding issues Splenic infarct pot unaware Acute pancreatitis Pancreas cyst AV block with subsequent syncope - s/p dual chamber pacemaker ([employer]tronic) - 2019 per cardio records History of COVID-19 08/2021- pcr test [place], not hosp; no symptoms, was in the ER for another issue Metabolic alkalosis (HFpEF) heart failure with preserved ejection fraction Secondary to severe mitral regurgitation TRISTAN (dyspnea on exertion) Severe mitral regurgitation Per patient, attempt for MitraClip ([facility]) was performed but unsuccessful (07/2021) (little improvement of regurgitation with MitraClip x2- procedure aborted Chronic atrial fibrillation On Eliquis Follows with Dr. Zarate ([facility]) HTN (hypertension) Hx of gastric ulcer Neuropathy Hx of pancreatitis Chronic. Due to heavy alcohol consumption per records Anxiety and depression DVT (deep venous thrombosis) 40+ years ago Hx of migraines Pacemaker Dual-chamber, implanted 2018 (high grade AVB/sinus node dysfunction), Medtronic, follows with Dr. Zarate > last checked in February 2023 GERD (gastroesophageal reflux disease) Hyponatremia Chronic issue- follows with nephrology Chronic pain syndrome Tobacco use disorder Paroxysmal atrial fibrillation Eliquis/pacer Dyslipidemia PVD (peripheral vascular disease) S/p left BKA Surgical History Hx of oral surgery (09/17/22) Debridement Necrotic Bone and Soft Tissue and Associated Infected Periodontally Infected Teeth to Allow Mitral Valve Replacement (Lower Jaw)(Not Applicable) - Ha Champion, DMD Hx of vascular surgery 11/2019, with dr maya, [facility], replaced 2 veins with bovine veins in Rt leg History of surgery (~07/30/21) Attempt for MitraClip ([facility]) was performed but unsuccessful (07/2021); currently being seen in [facility] for a trial for valve replacement History of esophagogastroduodenoscopy (EGD) History of cardiac cath (~04/24/21) 03/2021@ [facility] with Dr. Carbajal, no evidence of epicardial CAD S/P angiogram of extremity right lower leg S/P femoral-popliteal bypass surgery History of amputation REVISION OF AMPUTATION LLE History of colonoscopy History of tooth extraction Status post below knee amputation of left lower extremity Status post ORIF of fracture of ankle ORIF closed displaced trimalleolar left ankle fracture (2016) H/O vascular surgery Bilateral femoral endarterectomy with iliac stent (2016) History of appendectomy Family History Unknown No problems noted. Father Family history of diabetes mellitus Breast cancer Diabetes Hypertension Mother Hypertension Other No family history of adverse response to anesthesia Social History Smoking Status: Current every day smoker Tobacco Type: Cigarettes Cigarettes Per Day: 0.5; Second Hand Exposure: Yes; Do You Dip or Chew Tobacco: No; Hx Alcohol Use: Yes Alcohol type: beer Alcohol Intake Frequency: 2-4 x/Month Hx Substance Use: No Preferred Language: Mozambican Communication Ability: Effective Visual Impairment: No Limitations Solutions Analyst Required: No Beliefs That Will Affect Care: None marital status: Current Living Situation: Spouse current occupational status: disabled current occupation: Retired How many Children do You have: 1 Feels Safe at Home: Yes Diet: regular during the past year weight has: decreased > 10 lbs Assistive Devices: Glasses, Hospital Bed and Wheelchair Review of Systems Review of Systems: The patient denies chest pain, palpitations, shortness of breath, dyspnea on exertion, cough, sore throat, fevers, chills, sweats, weight change, fatigue, nausea, vomiting, diarrhea , constipation, abdominal pain, pelvic pain, blood in urine or stool, dysuria, urinary frequency or urgency, lightheadedness, dizziness, headache, memory loss, loss of consciousness, focal or generalized weakness, numbness or tingling in arms or right leg, generalized arthralgias or myalgias, back or neck pain, or night sweats. The review of systems is otherwise negative other than for that already noted above, and at least 10 systems have been reviewed. Physical Exam Physical Exam: The patient is awake, alert and oriented 3, well developed and well nourished, normocephalic and atraumatic, lying in bed and in no acute distress. HEENT--PERRL, EOMI, mucous membranes and oropharynx mildly dry. Neck--supple. No JVD. No bruits. Thyroid normal, trachea midline, no adenopathy. Heart--normal S1 and S2. No murmurs, rubs or gallops. Lungs--clear bilaterally, no respiratory distress, no accessory muscle use. Abdomen--normal bowel sounds and soft. Nontender. Nondistended, no hernias or masses, no organomegaly. Extremities--left BKA without sign of injury. Left groin with moderately severe erythema, and induration between overlapping skin folds Dermatologic--as above Neurologic--cranial nerves II through XII grossly intact. Rheumatologic--normal range of motion. Psychiatric--normal affect. Results & Data Results & Data Vital Signs (Past 12 Hours) Vital Signs Temp Pulse Pulse Resp BP BP Pulse Ox 11/11/24 01:18 67 11/11/24 00:30 74 12 143/78 H 93 11/10/24 23:15 69 18 121/60 93 11/10/24 22:29 73 20 144/90 H 94 11/10/24 21:22 75 11/10/24 21:02 36.5 C 104 H 16 148/82 H 96 O2 Del Method 11/11/24 01:18 11/11/24 00:30 Room Air 11/10/24 23:15 Room Air 11/10/24 22:29 Room Air 11/10/24 21:22 11/10/24 21:02 Room Air Laboratory Results Laboratory Results WBC 9.56 K/ul (4.8-10.8) 11/10/24 21: RBC 3.53 M/uL (4.20-5.40) L 11/10/24 21: Hgb 10.8 g/dl (12.0-16.0) L 11/10/24 21: Hct 34.6 % (37.0-47.0) L 11/10/24 21: MCV 98.0 fL (80.0-100.0) 11/10/24 21: MCH 30.6 pg (25.0-34.0) 11/10/24 21: MCHC 31.2 g/dL (32.0-36.0) L 11/10/24 21: RDW Std Deviation 72.8 fL (36.4-46.3) H 11/10/24: RDW Coeff of Marlon 21.0 % (11.5-14.5) H 11/10/24 21: Plt Count 233 K/uL (130-400) 11/10/24 21: MPV 10.8 fL (9.4-12.4) 11/10/24 21: Immature Gran % (Auto) 0.4 % 11/10/24 21: Neut % (Auto) 73.4 % 11/10/24: Lymph % (Auto) 16.3 % 11/10/24: [place] % (Auto) 6.4 % 11/10/24: Eos % (Auto) 2.6 % 11/10/24: Baso % (Auto) 0.9 % 11/10/24: Neut # (Auto) 7.01 K/uL (1.40-6.50) H 11/10/24 21:28 Lymph # (Auto) 1.56 K/uL (1.20-3.40) 11/10/24 21: [place] # (Auto) 0.61 K/uL (0.11-0.59) H 11/10/24 21: Eos # (Auto) 0.25 K/uL (0.00-0.50) 11/10/24: Baso # (Auto) 0.09 K/uL (0.00-0.20) 11/10/24: Immature Gran # (Auto) 0.04 K/uL (0.01-0.20) 11/10/24 21: Polychromasia 1+ 11/10/24 21: Anisocytosis Present 11/10/24: Echinocytes 1+ 11/10/24: Acanthocytes (Spur) 2+ 11/10/24: PT 13.3 Seconds (9.0-12.0) H 11/10/24: INR 1.2 (0.9-1.1) H 11/10/24 21: APTT 38 Seconds (21-31) H 11/10/24: PTT Ratio 1.4 11/10/24 21: Sodium 130 mmol/L (136-145) L 11/10/24 22:41 Potassium 5.1 mmol/L (3.5-5.1) 11/10/24 22:41 Chloride 106 mmol/L (98-107) 11/10/24 22:41 Carbon Dioxide 17 mmol/L (21-32) L 11/10/24 22:41 Anion Gap 7 (3-11) 11/10/24 22:41 BUN 9 mg/dl (6-23) 11/10/24 22:41 Creatinine 0.81 mg/dl (0.6-1.2) 11/10/24 22:41 Est Cr Clr Drug Dosing Not Reportable 11/10/24 22:41 eGFR 81.01 11/10/24 22:41 BUN/Creatinine Ratio 11.1 (10-20) 11/10/24 22:41 Glucose 91 mg/dl (70-99(Fasting)) 11/10/24 22:41 Osmolality 279 mOsm/kg (280-300) L 11/10/24 21:28 Lactate 1.4 mmol/L (0.4-2.0) 11/10/24 22:41 Calcium 8.6 mg/dl (8.6-10.3) 11/10/24 22:41 Magnesium 2.0 mg/dl (1.7-2.4) 11/10/24 22:41 Total Bilirubin 1.9 mg/dl (0.2-1.0) H 11/10/24 22:41 Direct Bilirubin 0.8 mg/dl (0-0.2) H 11/10/24 22:41 AST 18 U/L (13-39) 11/10/24 22:41 ALT 5 U/L (7-52) L 11/10/24 22:41 Alkaline Phosphatase 183 U/L (34-104) H 11/10/24 22:41 Total Creatine Kinase 20 U/L (26-192) L 11/10/24 22:41 Troponin I High Sens 4.8 pg/ml (0-14) 11/10/24 22:41 Total Protein 7.0 gm/dl (6.0-8.3) 11/10/24 22:41 Albumin 3.5 gm/dl (3.4-5.0) 11/10/24 22:41 Globulin 3.8 gm/dl (2.5-4.0) 11/10/24 21:28 Albumin/Globulin Ratio 1.0 (0.9-2) 11/10/24 21:28 Procalcitonin < 0.02 ng/ml (0-0.5) 11/10/24 21:40 TSH 5.070 uIu/ml (0.300-4.500) H 11/10/24 22:41 Free T4 1.28 ng/dl (0.61-1.60) 11/10/24 22:41 Urine Color Yellow 11/11/24 01:30 Urine Appearance Clear (Clear) 11/11/24 01:30 Urine pH 5.0 (4.5-7.5) 11/11/24 01:30 Ur Specific [place] > 1.045 (1.000-1.030) H 11/11/24 01:30 Urine Protein Negative (Negative) 11/11/24 01:30 Urine Glucose (UA) Negative (Negative) 11/11/24 01:30 Urine Ketones Negative (Negative) 11/11/24 01:30 Urine Blood 2+ (Negative) H 11/11/24 01:30 Urine Nitrite Negative (Negative) 11/11/24 01:30 Urine Bilirubin Negative (Negative) 11/11/24 01:30 Urine Urobilinogen Negative (Negative) 11/11/24 01:30 Ur Leukocyte Esterase 2+ (Negative) H 11/11/24 01:30 Urine WBC (Auto) 0-5 /hpf (0-5) 11/11/24 01:30 Urine RBC (Auto) 6-10 /hpf (0-2) H 11/11/24 01:30 U Hyaline Cast (Auto) 0-2 /lpf (0-2) 11/11/24 01:30 U Epithel Cells (Auto) 6-10 /hpf (0-2) H 11/11/24 01:30 Urine Bacteria (Auto) 2+ (None Seen) H 11/11/24 01:30 Urine Osmolality 412 mOsm/kg (500-800) L 11/11/24 01:30 Impressions Chest X-Ray 11/10/24 21:05 Exam(s): XR CXR 1 VIEW EXAM: XR Chest, 1 View CLINICAL HISTORY: Reason for exam: Chest pain, nonspecific. TECHNIQUE: Frontal view of the chest. COMPARISON: 01/05/2024 FINDINGS: Lungs: Left basilar opacity, infiltrate versus atelectasis. Pulmonary vascular congestion. Pleural space: No pleural effusion. No pneumothorax. Heart: Cardiomegaly. Tubes, lines and devices: Pacemaker leads in place. IMPRESSION: 1. Left basilar opacity, infiltrate versus atelectasis. 2. Pulmonary vascular congestion. Electronically signed by: Tevin Zhou MD 11/10/24 23:18 PM Abdomen/Pelvis CT 11/10/24 21:40 Exam(s): CT ABDOMEN + PELVIS With Contrast IV Amt: 119 ml opti 320 EXAM: CT Abdomen and Pelvis With Intravenous Contrast CLINICAL HISTORY: Reason for exam: llq pain/infx. TECHNIQUE: Axial computed tomography images of the abdomen and pelvis with intravenous contrast. CTDI is 27.51 mGy and DLP is 1355.94 mGy-cm. Automated exposure control was utilized for the study. A dose lowering technique was utilized adhering to the principles of ALARA. CONTRAST: Patient received 119 ml opti 320 of IV contrast COMPARISON: 12/13/23 FINDINGS: Lung bases: Reported separately. ABDOMEN: Liver: Unremarkable. No mass. Gallbladder and bile ducts: Unremarkable. No calcified stones. No ductal dilation. Pancreas: Scattered calcifications in the pancreas suggesting change related to chronic pancreatitis. Presently, no evidence of acute pancreatitis. No ductal dilation. Spleen: Unremarkable. No splenomegaly. Adrenals: Unremarkable. No mass. Kidneys and ureters: Unremarkable. No solid mass. No hydronephrosis. Stomach and bowel: No bowel obstruction. Left hemicolon diverticulosis without evidence of acute diverticulitis. PELVIS: Appendix: Appendix not identified. No secondary signs of appendicitis. Bladder: Unremarkable. No mass. Reproductive: Uterus is small in size. ABDOMEN and PELVIS: Intraperitoneal space: Mild ascites. No free air. Bones/joints: Degenerative change in the lumbar spine. No acute fracture. No dislocation. Soft tissues: Anasarca. Vasculature: Atherosclerosis. Vascular stents suggested in the bilateral iliac and left femoral arteries. No abdominal aortic aneurysm. Lymph nodes: Unremarkable. No enlarged lymph nodes. IMPRESSION: 1. Mild ascites. 2. Anasarca. 3. Diverticulosis without diverticulitis. Electronically signed by: Chandrika Bennett M.D. 11/11/24 00:04 AM Chest CTA 11/10/24 21:40 Exam(s): CTA CHEST IV Amt: 119 ml opti 320 EXAM: CT Angiography Chest With Intravenous Contrast CLINICAL HISTORY: Reason for exam: PE. TECHNIQUE: Axial computed tomographic angiography images of the chest with intravenous contrast. CTDI is 28.14 mGy and DLP is 958.06 mGy-cm. Automated exposure control was utilized for the study. A dose lowering technique was utilized adhering to the principles of ALARA. MIP reconstructed images were created and reviewed. COMPARISON: 07/06/23 FINDINGS: Pulmonary arteries: Adequate pulmonary artery opacification. Normal caliber main pulmonary artery. No evidence of acute pulmonary embolism to the segmental level; more distal levels are obscured by respiratory motion. Aorta: Atherosclerosis of the aorta without aneurysm or dissection. Lungs: Calcified granuloma in the right lung. Left basilar airspace opacity. Pleural space: Small bilateral pleural effusions, left greater than right. No pneumothorax. Heart: Cardiomegaly with right ventricular enlargement and reflux of contrast into the hepatic veins consistent with elevated right heart pressure. Coronary artery atherosclerosis. No pericardial effusion. Bones/joints: Disc degeneration in the thoracic spine. No acute fracture or dislocation. Soft tissues: Anasarca, increased on the left side of the body. Lymph nodes: Unremarkable. No enlarged lymph nodes. Upper abdomen: Mild ascites. Other: Left chest wall dual-lead AICD-pacemaker with leads extending to the right atrium and right ventricle. IMPRESSION: 1. No evidence of acute pulmonary embolism to the segmental level; more distal levels are obscured by respiratory motion. 2. Cardiomegaly with right ventricular enlargement and reflux of contrast into the hepatic veins consistent with elevated right heart pressure. 3. Small bilateral pleural effusions, left greater than right. 4. Left basilar airspace opacity. Atelectasis is favored, but pneumonia cannot be excluded and clinical correlation is requested. 5. Mild ascites. 6. Anasarca, increased on the left side of the body. This may be related to prolonged left decubitus positioning. Electronically signed by: Chandrika Bennett M.D. 11/11/24 00:[address] 11/10/24 21:48 Exam(s): CT C SPINE EXAM: CT Cervical Spine Without Intravenous Contrast CLINICAL HISTORY: Reason for exam: fall, on DOAC. TECHNIQUE: Axial computed tomography images of the cervical spine without intravenous contrast. CTDI is 25.5 mGy and DLP is 564.45 mGy-cm. Automated exposure control was utilized for the study. A dose lowering technique was utilized adhering to the principles of ALARA. COMPARISON: 09/16/21 FINDINGS: Vertebrae: Unremarkable. No acute fracture. No traumatic subluxation. Discs/spinal canal/neural foramina: Multilevel disc degeneration. No significant central canal stenosis. Uncovertebral joint degeneration contributes to multilevel foraminal narrowing. Soft tissues: Unremarkable. IMPRESSION: No acute findings in the cervical spine. Electronically signed by: Chandrika Bennett M.D. 11/11/24 00:[address] 11/10/24 21:48 Exam(s): CT HEAD Without Contrast EXAM: CT Head Without Intravenous Contrast CLINICAL HISTORY: Reason for exam: fall, on DOAC. TECHNIQUE: Axial computed tomography images of the head/brain without intravenous contrast. CTDI is 38.24 mGy and DLP is 624.41 mGy-cm. Automated exposure control was utilized for the study. A dose lowering technique was utilized adhering to the principles of ALARA. COMPARISON: 04/25/23 FINDINGS: Brain: Generalized parenchymal volume loss. Mild chronic small vessel ischemic change. Ortega-white matter differentiation maintained. No hemorrhage, mass effect, parenchymal edema, or midline shift. Chronic lacunar infarcts bilateral thalami. Ventricles: No hydrocephalus. Bones/joints: No acute fracture. Soft tissues: Unremarkable. Vasculature: Intracranial atherosclerosis. Sinuses: No significant sinus disease, as visualized. Mastoid air cells: No significant mastoid effusion. IMPRESSION: No acute intracranial process. Electronically signed by: Chandrika Bennett M.D. 11/10/24 23:53 PM Code Status & VTE Plan Code Status Full code VTE Prophylaxis Plan VTE Prophylaxis will be ordered: Yes PG Care Time/CCT Total # of Minutes Spent Total Time Spent with Patient: Total time spent is greater than 50% in coordination of care (as documented) at patient's floor/unit and/or counseling patient: Coding Level of Care Code 33031 INT INP/OBS CARE 3/75MIN Diagnoses Abdominal wall cellulitis L03.311 Cellulitis of groin, left L03.314 Hyperkalemia E87.5 Chronic hyponatremia E87.1
[2024-11-11 01:29] LABS: T4 Free Thyroxine 1.28 ng/dl (0.61-1.60)
[2024-11-11 02:01] LABS: Appearance Urine Clear (Clear); Bacteria Urine Automated 2+ (None Seen); Bilirubin Urine Negative (Negative); Blood Urine 2+ (Negative); Cast Urine Automated 0-2 /lpf (0-2); Color Urine Yellow; Glucose Urine UA Negative (Negative); Ketones Urine Negative (Negative); Leukocyte Esterase Urine 2+ (Negative); Nitrite Urine Negative (Negative); Protein Urine Negative (Negative); Specific Gravity Urine > 1.045 (1.000-1.030); Urobilinogen Urine Negative (Negative); WBC Urine Automated 0-5 /hpf (0-5)
[2024-11-11] MEDS: FLUCONAZOLE 200 MG/100 ML BAG IV SCH (02:20)
[2024-11-11] MEDS: DAPTOmycin 275 MG in SYRINGE 0 ML IV SCH (02:20)
[2024-11-11] MEDS: SODIUM CHLORIDE 0.9% 1,000 ML IV SCH (03:50)
[2024-11-11] MEDS: HYDROmorphone INJ 1 MG/ML SYRINGE IV PRN (04:21)
[2024-11-11] MEDS ORDERED: ALBUT/IPRATROP 3MG/0.5MG NEB 3 ML VIAL NEB PRN (05:11)
[2024-11-11] MEDS: ALBUT/IPRATROP 3MG/0.5MG NEB 3 ML VIAL NEB STA (05:20)
[2024-11-11] MEDS: NALOXONE HCL 0.4 MG/1 ML VIAL/CARP IV PRN (05:23)
[2024-11-11 06:35] LABS: Basophils # (auto) 0.05 K/uL (0.00-0.20); Basophils % (auto) 0.5 %; Eosinophils # (auto) 0.14 K/uL (0.00-0.50); Eosinophils % (auto) 1.4 %; Hematocrit (blood only) 32.7 % (37.0-47.0); Lymphocytes # (auto) 0.53 K/uL (1.20-3.40); Lymphocytes % (auto) 5.3 %; Mean Corpuscular Hemoglobin 30.7 pg (25.0-34.0); Mean Corpuscular Hgb Conc 30.6 g/dL (32.0-36.0); Mean Corpuscular Volume 100.3 fL (80.0-100.0); Mean Platelet Volume 10.7 fL (9.4-12.4); Monocytes # (auto) 0.36 K/uL (0.11-0.59); Monocytes % (auto) 3.6 %; Neutrophils # (auto) 8.83 K/uL (1.40-6.50); Neutrophils % (auto) 88.2 %; Platelet Count 199 K/uL (130-400); RDW Coefficient of Variation 20.7 % (11.5-14.5); RDW Standard Deviation 74.6 fL (36.4-46.3); Red Blood Count 3.26 M/uL (4.20-5.40); White Blood Count 10.01 K/ul (4.8-10.8)
[2024-11-11 06:59] LABS: Anisocytosis Present; Basophilic Stippling 1+; Echinocytes 2+; Ovalocytes 1+; Polychromasia 1+
[2024-11-11 07:07] LABS: Albumin Level 3.4 gm/dl (3.4-5.0); BUN Creatinine Ratio 13.9 (10-20); Calcium 8.5 mg/dl (8.6-10.3); Creatinine Clr Calc Pharmacy 77.8 ml/min; Phosphorus 3.8 mg/dl (2.5-4.9); Potassium 5.2 mmol/L (3.5-5.1)
--- NOTE | 2024-11-11 07:14 | Electrocardiogram Report ---
Test Reason : Blood Pressure : */* mmHG Vent. Rate : 74 BPM Atrial Rate : * BPM P-R Int : * ms QRS Dur : 70 ms QT Int : 362 ms P-R-T Axes : * 103 260 degrees QTcB Int : 401 ms Atrial fibrillation with frequent ventricular-paced complexes Rightward axis Low voltage QRS Abnormal ECG Confirmed by Aidan Merchant ([id number]) on 11/11/2024 7:13:51 AM Referred By: REFERRED SELF Confirmed By: Aidan Merchant
[2024-11-11] MEDS: PREGABALIN 150 MG CAP PO SCH (08:13)
[2024-11-11] MEDS: PANCREAZE (LIPASE 4,200U) CAP PO SCH (08:13)
[2024-11-11] MEDS: SODIUM CHLORIDE 1 GM TABLET PO SCH (08:14)
[2024-11-11] MEDS: APIXABAN 5 MG TABLET PO SCH (08:14)
[2024-11-11] MEDS: METOPROLOL SUCC 25MG EXT REL TAB PO SCH (08:14)
[2024-11-11] MEDS: PANTOprazole 40 MG TAB PO SCH (08:14)
[2024-11-11] MEDS: ASPIRIN 81 MG ECTAB PO SCH (08:15)
[2024-11-11] MEDS: CEFEPIME 2000MG 2,000 MG/20 ML SYR IV SCH (08:16)
[2024-11-11] MEDS ORDERED: PREGABALIN 100 MG CAP PO SCH (09:00)
[2024-11-11] MEDS ORDERED: oxyCODONE HCL IR 5 MG TAB (IMMEDIATE RELEASE) PO SCH (09:00)
[2024-11-11] MEDS: oxyCODONE HCL IR 5 MG TAB (IMMEDIATE RELEASE) PO PRN (17:38)
[2024-11-11] MEDS: HYDROmorphone INJ 0.5 MG/0.5 ML SYR IV PRN (19:17)
[2024-11-11] MEDS ORDERED: ATORVASTATIN 40 MG TAB PO SCH (21:00)
[2024-11-11] MEDS: AMITRIPTYLINE HCL 50 MG TAB PO SCH (21:22)
[2024-11-11] MEDS: ZOLPIDEM TARTRATE 5 MG TAB PO SCH (23:20)
[2024-11-12 08:32] LABS: Hematocrit (blood only) 28.7 % (37.0-47.0); Mean Corpuscular Hemoglobin 31.4 pg (25.0-34.0); Mean Corpuscular Hgb Conc 31.4 g/dL (32.0-36.0); Mean Platelet Volume 10.8 fL (9.4-12.4); Platelet Count 130 K/uL (130-400); RDW Coefficient of Variation 20.9 % (11.5-14.5); RDW Standard Deviation 75.8 fL (36.4-46.3); Red Blood Count 2.87 M/uL (4.20-5.40); White Blood Count 5.83 K/ul (4.8-10.8)
[2024-11-12 08:34] LABS: Acanthocytes 2+; Basophils # (auto) 0.03 K/uL (0.00-0.20); Basophils % (auto) 0.5 %; Echinocytes 1+; Eosinophils # (auto) 0.17 K/uL (0.00-0.50); Eosinophils % (auto) 2.9 %; Hypersegmented Neutrophils 1+; Immature Granulocytes # (auto) 0.03 K/uL (0.01-0.20); Immature Granulocytes % (auto) 0.5 %; Lymphocytes # (auto) 0.54 K/uL (1.20-3.40); Lymphocytes % (auto) 9.3 %; Monocytes # (auto) 0.55 K/uL (0.11-0.59); Monocytes % (auto) 9.4 %; Neutrophils # (auto) 4.51 K/uL (1.40-6.50); Neutrophils % (auto) 77.4 %; Polychromasia 1+
[2024-11-12 08:36] LABS: BUN Creatinine Ratio 19.3 (10-20); Calcium 8.3 mg/dl (8.6-10.3)
[2024-11-12 08:41] LABS: Albumin Level 3.3 gm/dl (3.4-5.0); BUN Creatinine Ratio 19.3 (10-20); Calcium 8.3 mg/dl (8.6-10.3); Magnesium 2.1 mg/dl (1.7-2.4); Phosphorus 3.4 mg/dl (2.5-4.9); Potassium 5.4 mmol/L (3.5-5.1)
--- NOTE | 2024-11-12 10:59 | Hospitalist Progress Note ---
Date of Service November 12, 2024 Assessment & Plan (1) Abdominal wall cellulitis: (2) Cellulitis of groin, left: (3) Hyperkalemia: (4) Chronic hyponatremia: Plan The patient is a 64-year-old female with a past medical history including left BKA, status post right bypass several years ago, history abdominal wall cellulitis and left groin cellulitis, iron deficiency anemia, chronic respiratory failure, pancreatic cyst, periodontal disease, ANUG, Tatian, COPD, chronic pain syndrome, neuralgia, GERD, pression with anxiety, tension, history of CABG surgery as noted, dyslipidemia, PVD, history of ORIF ankle fracture. Patient presents to the emergency department with worsening left groin cellulitis and pain, she notes worsening after falling DKA earlier in the day today. She has been eating and drinking as per usual. Taking medications as directed. She has no generalized complaints sweats fevers or chills. She reports normal bowel and urinary function. Her is with her, does help her with ADLs at home. The patient was noted to have severe left groin erythema , induration and pain, was started on cefepime and nystatin powder, received Dilaudid 0.5 mg IV, normal saline 1 L bolus, morphine sulfate 4 mg IV and Zofran 4 mg IV, and and was then referred for evaluation for admission to the [facility]ist service. #Severe left groin/ abdominal wall cellulitis- Looks to be combination of bacterial and fungal Received cefepime 2 g IV from the ED Continue cefepime 2 g IV every 12 hours Add daptomycin 275 mg IV daily Add fluconazole 200 mg IV daily Will consult wound care Patient is unable to take Tylenol due to liver dysfunction history Continue oxycodone 5 mg p.o. Q4h as needed. patient gets drowsy easily from narcotics Dilaudid 0.5 mg IV every 3 hours as needed for moderate pain Dilaudid 1 mg IV every 3 hours as needed for severe pain Ascites/anasarca/hypoalbuminemia- Patient looks more to be on the dry side but then overload. Hyperkalemia- recheck Chronic Hyponatremia Follows up with nephrology outpatient Atrial fibrillation/hypertension-continue aspirin, Eliquis, metoprolol succinate Hold potassium chloride and bumetanide as noted above Chronic medical conditions: Chronic hyponatremia/SIADH history-Continue sodium chloride 1 g p.o. twice daily. Sodium 130 admission, serum osmolality 279 and urine osmolality pending.Serial laboratories Exocrine pancreatic insufficiency-Continue Creon GERD-continue pantoprazole Peripheral neuropathy-continue amitriptyline pregabalin full code continue to monitor, hopefully d/c in the next 48 hrs Admission and Anticipated Discharge Date Admission Date: November 11, 2024 Subjective patient seen and examined,was very drowsy this morning Review of Systems Review of Systems: All systems reviewed are negative, apart from the ones contained in the history. Physical Exam Physical Exam: The patient is awake, drowsy HEENT--PERRL, EOMI, mucous membranes and oropharynx mildly dry Neck--supple. No JVD. No bruits. Thyroid normal, trachea midline, no adenopathy. Heart--normal S1 and S2. No murmurs, rubs or gallops. Lungs--clear bilaterally, no respiratory distress, no accessory muscle use. Abdomen--normal bowel sounds and soft. Extremities--no cyanosis or clubbing. No edema. Dermatologic--normal skin turgor, normal color, no abnormal lymph nodes, no rash. Neurologic--cranial nerves II through XII grossly intact. Rheumatologic--normal range of motion. Psychiatric--normal affect. Results & Data Results & Data Vital Signs (Past 12 Hours) Vital Signs Temp Pulse Resp BP Pulse Ox O2 Del Method 11/12/24 07:56 97.0 F L 70 18 96/66 L 92 Room Air PG Care Time/CCT Total # of Minutes Spent Total Time Spent with Patient: Total time spent is greater than 50% in coordination of care (as documented) at patient's floor/unit and/or counseling patient: Coding Level of Care Code 47444 SUB INP/OBS CARE 2/35MIN Diagnoses Abdominal wall cellulitis L03.311 Cellulitis of groin, left L03.314 Hyperkalemia E87.5 Chronic hyponatremia E87.1 Time Spent (min) 35
[2024-11-13 06:37] LABS: Basophils # (auto) 0.06 K/uL (0.00-0.20); Eosinophils % (auto) 3.4 %; Hematocrit (blood only) 29.1 % (37.0-47.0); Hemoglobin 8.9 g/dl (12.0-16.0); Immature Granulocytes # (auto) 0.03 K/uL (0.01-0.20); Immature Granulocytes % (auto) 0.5 %; Lymphocytes # (auto) 0.59 K/uL (1.20-3.40); Lymphocytes % (auto) 9.9 %; Mean Corpuscular Hemoglobin 30.9 pg (25.0-34.0); Mean Corpuscular Hgb Conc 30.6 g/dL (32.0-36.0); Mean Platelet Volume 11.1 fL (9.4-12.4); Monocytes # (auto) 0.57 K/uL (0.11-0.59); Monocytes % (auto) 9.5 %; Neutrophils # (auto) 4.52 K/uL (1.40-6.50); Neutrophils % (auto) 75.7 %; Platelet Count 142 K/uL (130-400); RDW Coefficient of Variation 20.8 % (11.5-14.5); RDW Standard Deviation 75.7 fL (36.4-46.3); Red Blood Count 2.88 M/uL (4.20-5.40); White Blood Count 5.97 K/ul (4.8-10.8)
[2024-11-13 06:55] LABS: Acanthocytes 1+; Anisocytosis Present; Echinocytes 1+; Polychromasia 1+
[2024-11-13 07:00] LABS: Albumin Level 3.2 gm/dl (3.4-5.0); BUN Creatinine Ratio 22.2 (10-20); Calcium 8.6 mg/dl (8.6-10.3); Creatinine Clr Calc Pharmacy 75.8 ml/min; Magnesium 2.1 mg/dl (1.7-2.4); Phosphorus 2.8 mg/dl (2.5-4.9); Potassium 4.8 mmol/L (3.5-5.1)
--- NOTE | 2024-11-13 21:36 | Hospitalist Progress Note ---
Date of Service November 13, 2024 Assessment & Plan (1) Abdominal wall cellulitis: (2) Cellulitis of groin, left: (3) Hyperkalemia: (4) Chronic hyponatremia: Plan The patient is a 64-year-old female with a past medical history including left BKA, status post right bypass several years ago, history abdominal wall cellulitis and left groin cellulitis, iron deficiency anemia, chronic respiratory failure, pancreatic cyst, periodontal disease, ANUG, Tatian, COPD, chronic pain syndrome, neuralgia, GERD, pression with anxiety, tension, history of CABG surgery as noted, dyslipidemia, PVD, history of ORIF ankle fracture. Patient presents to the emergency department with worsening left groin cellulitis and pain, she notes worsening after falling DKA earlier in the day today. She has been eating and drinking as per usual. Taking medications as directed. She has no generalized complaints sweats fevers or chills. She reports normal bowel and urinary function. Her is with her, does help her with ADLs at home. The patient was noted to have severe left groin erythema , induration and pain, was started on cefepime and nystatin powder, received Dilaudid 0.5 mg IV, normal saline 1 L bolus, morphine sulfate 4 mg IV and Zofran 4 mg IV, and and was then referred for evaluation for admission to the [facility]ist service. #Severe left groin/ abdominal wall cellulitis- Looks to be combination of bacterial and fungal Received cefepime 2 g IV from the ED Continue cefepime 2 g IV every 12 hours Add daptomycin 275 mg IV daily Add fluconazole 200 mg IV daily Will consult wound care -continues to be erythematous, tender to palpation. consult infectious disease for assistance. Patient is unable to take Tylenol due to liver dysfunction history Continue oxycodone 5 mg p.o. Q4h as needed. patient gets drowsy easily from narcotics Dilaudid 0.5 mg IV every 3 hours as needed for moderate pain Dilaudid 1 mg IV every 3 hours as needed for severe pain Chart review. Ascites/anasarca/hypoalbuminemia- Patient looks more to be on the dry side but then overload. Hyperkalemia- recheck at goal 4.8 Chronic Hyponatremia Follows up with nephrology outpatient Atrial fibrillation/hypertension-continue aspirin, Eliquis, metoprolol succinate Hold potassium chloride and bumetanide as noted above Chronic medical conditions: Chronic hyponatremia/SIADH history-Continue sodium chloride 1 g p.o. twice daily. Sodium 130 admission, serum osmolality 279 and urine osmolality pending.Serial laboratories Exocrine pancreatic insufficiency-Continue Creon GERD-continue pantoprazole Peripheral neuropathy-continue amitriptyline pregabalin full code Admission and Anticipated Discharge Date Admission Date: November 11, 2024 Subjective Nurse reports patient has been incontinent, not a candidate for purewick. Patient reports pain has been controlled Physical Exam Physical Exam: The patient is awake, drowsy HEENT--PERRL, EOMI Neck--supple. No JVD. No bruits. Thyroid normal, trachea midline, no adenopathy. Heart--normal S1 and S2. No murmurs, rubs or gallops. Lungs--clear bilaterally, no respiratory distress, no accessory muscle use. Abdomen--normal bowel sounds and soft. Extremities--no cyanosis or clubbing. No edema. Groin: left, erythematous, with excoriations, warm, tender Results & Data Results & Data Vital Signs (Past 12 Hours) Vital Signs Temp Pulse Resp BP BP Pulse Ox O2 Del Method 11/13/24 21:02 80 132/82 11/13/24 20:05 36.4 C L 71 18 94/62 L 97 Room Air 11/13/24 15:41 36.4 C L 80 16 131/88 96 Room Air PG Care Time/CCT Total # of Minutes Spent Total Time Spent with Patient: Total time spent is greater than 50% in coordination of care (as documented) at patient's floor/unit and/or counseling patient: Coding Level of Care Code 89376 SUB INP/OBS CARE 3/50MIN Diagnoses Abdominal wall cellulitis L03.311 Cellulitis of groin, left L03.314 Hyperkalemia E87.5 Chronic hyponatremia E87.1
[2024-11-14 06:05] LABS: Hematocrit (blood only) 27.4 % (37.0-47.0); Hemoglobin 8.6 g/dl (12.0-16.0); Mean Corpuscular Hgb Conc 31.4 g/dL (32.0-36.0); Mean Corpuscular Volume 98.9 fL (80.0-100.0); Mean Platelet Volume 10.7 fL (9.4-12.4); Platelet Count 133 K/uL (130-400); RDW Coefficient of Variation 21.2 % (11.5-14.5); RDW Standard Deviation 75.6 fL (36.4-46.3); Red Blood Count 2.77 M/uL (4.20-5.40); White Blood Count 6.35 K/ul (4.8-10.8)
[2024-11-14 06:20] LABS: BUN Creatinine Ratio 18.2 (10-20); C Reactive Protein 3.65 mg/dl (0-0.5); Calcium 8.6 mg/dl (8.6-10.3); Creatinine Clr Calc Pharmacy 69.8 ml/min; Magnesium 2.1 mg/dl (1.7-2.4); Potassium 4.5 mmol/L (3.5-5.1)
[2024-11-14 06:29] LABS: Acanthocytes 1+; Anisocytosis Present; Basophils # (auto) 0.06 K/uL (0.00-0.20); Basophils % (auto) 0.9 %; Echinocytes 1+; Eosinophils # (auto) 0.19 K/uL (0.00-0.50); Immature Granulocytes # (auto) 0.04 K/uL (0.01-0.20); Immature Granulocytes % (auto) 0.6 %; Lymphocytes # (auto) 0.97 K/uL (1.20-3.40); Lymphocytes % (auto) 15.3 %; Monocytes # (auto) 0.95 K/uL (0.11-0.59); Neutrophils # (auto) 4.14 K/uL (1.40-6.50); Neutrophils % (auto) 65.2 %; Polychromasia 1+; Tear Drop Cells 1+
[2024-11-14] MEDS: DOCUSATE SODIUM/SENNA 50/8.6MG TAB PO SCH (08:37)
[2024-11-14] MEDS: POLYETHYLENE (MIRALAX) 17 GM PACK PO SCH (08:37)
[2024-11-14 09:10] LABS: Bilirubin Direct 0.6 mg/dl (0-0.2); Bilirubin,Total 1.4 mg/dl (0.2-1.0); Total Protein 6.3 gm/dl (6.0-8.3)
--- NOTE | 2024-11-14 09:25 | Infectious Disease Consult ---
Date of Consultation November 14, 2024 Assessment & Plan (1) Cellulitis of groin, left: (2) Candidiasis: (3) Chronic pain syndrome: (4) PVD (peripheral vascular disease): Plan 64yo F with h/o PVD s/p left BKA, bl femoral endarterectomy and iliac stent, recent RLE ischemia s/p thrombectomy/angioplasty/stent/bypass in 12/2023, left ankle fracture s/p ORIF, prior cellulitis of abdominal wall cellulitis and groin, afib, AV block s/p PPM, COPD, chronic pain syndrome, neuralgia, GERD, CAD s/p CABG, ankle fractures s/p ORIF, left breast abscess s/p drainage in 2001, baseline abdominal pain r/t prior h/o pancreatitis who presented on 11/10 with left groin redness and pain that was worsening after her fall earlier in the day. No fevers or chills. On admission, she was afebrile, vss. Initial labs with WBC wnl, Cr 0.81, AST/ALT wnl. Lactate 1.4. UA negative. Trauma w/u neg including CTH and CT c spine. CT chest/a/p with left basilar airspace opacity, atelectasis favored by PNA cannot be excluded. She was found with severe left groin cellulitis and was started on empiric abx as well as fluconazole. ID consulted 11/13. Left groin likely has some intertrigo given location and skin folds with possible superimposed infection given severity of pain. Im going to stop cefepime and continue on daptomycin given MRSA screen positive and this will also cover Strep (WCX just had skin jarod). If she continues to improve on this regimen, then will plan for 7 days of abx, likely with doxycycline. For c/f intertrigo, I would prefer using topical antifungals rather than fluconazole, since says she has not used anything topical in the groin area at home and was not red normally. # Left groin cellulitis - improving per family # PVD with multiple prior surgeries # Left stump pain - Kirstin stopped cefepime and fluconazole - started on ketoconazole topical cream for left groin - continue on daptomycin (4mg/kg for SSTI, 275mg) IV q24h - may consider XR of left BKA stump given her fall was onto the stump and now has significant pain defer to primary team - agree with wound care ID will continue to follow. If questions or concerns, contact via [employer] or Infectious Disease Call Center . Mallory Sky MD [facility], Division of Infectious Diseases [employer]: [phone] Consultation Information Consultation was provided via telemedicine using two-way real-time interactive telecommunication between the patient and the telemedicine provider. For the duration of the visit, the provider was performing the assessment from a different facility than the patient. This includesuse of bluetooth stethoscope forauscultationperformed by the telepresenter that the telemedicine provider can hear if described in the physical exam. [employer] contact information: Please call [facility] Connect Call Center . (Phone Number For Physician Use Only) After establishing a telemedicine visit, patient was: Patient was verified with two unique identifiers, Patient/authorized rep acknowledged consent and understanding and Gave permission to continue telehealth session Time Spent with Patient: Initial => 75 min History of Present Illness Reason for Consultation: cellulitis Attending Physician: Sebastien Ocononr History of Present Illness 64yo F with h/o PVD s/p left BKA, bl femoral endarterectomy and iliac stent, recent RLE ischemia s/p thrombectomy/angioplasty/stent/bypass in 12/2023, left ankle fracture s/p ORIF, prior cellulitis of abdominal wall cellulitis and groin, afib, AV block s/p PPM, COPD, chronic pain syndrome, neuralgia, GERD, CAD s/p CABG, ankle fractures s/p ORIF, left breast abscess s/p drainage in 2001, baseline abdominal pain r/t prior h/o pancreatitis who presented on 11/10 with left groin redness and pain that was worsening after her fall earlier in the day. No fevers or chills. On admission, she was afebrile, vss. Initial labs with WBC wnl, Cr 0.81, AST/ALT wnl. Lactate 1.4. UA negative. Trauma w/u neg including CTH and CT c spine. CT chest/a/p with left basilar airspace opacity, atelectasis favored by PNA cannot be excluded. She was found with severe left groin cellulitis and was started on empiric abx as well as fluconazole. ID consulted 11/13. On evaluation, is present and provides most of the history. Since her fall around Wednesday or Wednesday, she has had left groin redness and pain, which he feels is improving. There was reportedly drainage from there as well. She also fell onto her left stump and has had significant pain at this site as well. asking for an Xray. She has not had any diarrhea. notes that she frequently also has issues with the left breast. Allergies Allergy/AdvReac Type Severity Reaction Status Date / Time adhesive Allergy Severe SEVERE Verified 04/03/24 14:51 SKIN IRRITATION guanfacine Allergy Intermediate BP PROBLEMS Verified 04/03/24 14:51 nifedipine Allergy Intermediate BP PROBLEMS Verified 04/03/24 14:51 acetaminophen AdvReac Severe LIVER Verified 04/03/24 14:51 DAMAGE-DUE TO FAILURE amoxicillin AdvReac Severe LIVER Verified 04/03/24 14:51 FAILURE clavulanic acid AdvReac Severe LIVER Verified 04/03/24 14:51 FAILURE Home Medications Medication Instructions Recorded Confirmed Type atorvastatin 80 mg tablet (Lipitor) 80 mg PO HS 06/06/19 11/11/24 History aspirin 81 mg tablet,delayed 81 mg PO QAM 12/19/19 11/11/24 History release (Tj Low Dose Aspirin) amitriptyline 50 mg tablet 50 mg PO HS 09/11/22 11/11/24 History sennosides 8.6 mg-docusate sodium 2 tab PO QAM PRN constipation #60 04/18/23 11/11/24 Rx 50 mg tablet (Senokot-S) tabs metoprolol succinate 25 mg 25 mg PO BID 04/25/23 11/11/24 History tablet,extended release 24 hr oxycodone 5 mg capsule 5 mg PO TID PRN moderate-severe 11/04/23 11/11/24 History pain apixaban 5 mg tablet (Eliquis) 5 mg PO BID 12/31/23 11/11/24 History alendronate 70 mg tablet 70 mg PO WK 01/05/24 11/11/24 History niycuz-jhckuvjy-sjqnhgb 1 cap PO UD 01/05/24 11/11/24 History 3,000-9,500-15,000 unit capsule, delayed rel (Creon) zolpidem 10 mg tablet (Ambien) 10 mg PO HS 01/05/24 11/11/24 History potassium chloride 20 mEq 40 meq (2 x 20 mEq) PO BID #120 05/18/24 11/11/24 Rx tablet,extended release tabs pantoprazole 40 mg tablet,delayed 40 mg PO QAM #120 tabs 08/21/24 11/11/24 Rx release (Protonix) bumetanide 2 mg tablet 2 mg PO BID #180 tabs 08/23/24 11/11/24 Rx sodium chloride 1,000 mg soluble 1,000 mg PO BID #180 tabs 09/04/24 11/11/24 Rx tablet pregabalin 300 mg capsule 300 mg PO QAM 11/11/24 11/11/24 History Patient History Medical History History of anesthesia reaction woke up in middle of an EGD once at [facility] Acute GI bleeding Oct 2023, hospitalized at [facility] > due to this, patient switched from Xarelto to Eliquis > no further bleeding issues Splenic infarct pot unaware Acute pancreatitis Pancreas cyst AV block with subsequent syncope - s/p dual chamber pacemaker ([employer]tr[employer]) - 2018 per cardio records History of COVID-19 08/2021- pcr test [place], not hosp; no symptoms, was in the ER for another issue Metabolic alkalosis (HFpEF) heart failure with preserved ejection fraction Secondary to severe mitral regurgitation TRISTAN (dyspnea on exertion) Severe mitral regurgitation Per patient, attempt for MitraClip ([facility]) was performed but unsuccessful (07/2021) (little improvement of regurgitation with MitraClip x2- procedure aborted Chronic atrial fibrillation On Eliquis Follows with Dr. aZrate ([facility]) HTN (hypertension) Hx of gastric ulcer Neuropathy Hx of pancreatitis Chronic. Due to heavy alcohol consumption per records Anxiety and depression DVT (deep venous thrombosis) 40+ years ago Hx of migraines Pacemaker Dual-chamber, implanted 2018 (high grade AVB/sinus node dysfunction), [employer], follows with Dr. Zarate > last checked in February 2023 GERD (gastroesophageal reflux disease) Hyponatremia Chronic issue- follows with nephrology Chronic pain syndrome Tobacco use disorder Paroxysmal atrial fibrillation Eliquis/pacer Dyslipidemia PVD (peripheral vascular disease) S/p left BKA Surgical History Hx of oral surgery (09/17/22) Debridement Necrotic Bone and Soft Tissue and Associated Infected Periodontally Infected Teeth to Allow Mitral Valve Replacement (Lower Jaw)(Not Applicable) - Ha Champion, CAITLIN Hx of vascular surgery 11/2019, with dr maya, [facility], replaced 2 veins with bovine veins in Rt leg History of surgery (~07/30/21) Attempt for MitraClip ([facility]) was performed but unsuccessful (07/2021); currently being seen in [facility] for a trial for valve replacement History of esophagogastroduodenoscopy (EGD) History of cardiac cath (~04/24/21) 03/2021@ [facility] with Dr. Carbajal, no evidence of epicardial CAD S/P angiogram of extremity right lower leg S/P femoral-popliteal bypass surgery History of amputation REVISION OF AMPUTATION LLE History of colonoscopy History of tooth extraction Status post below knee amputation of left lower extremity Status post ORIF of fracture of ankle ORIF closed displaced trimalleolar left ankle fracture (2016) H/O vascular surgery Bilateral femoral endarterectomy with iliac stent (2016) History of appendectomy Family History Unknown No problems noted. Father Family history of diabetes mellitus Breast cancer Diabetes Hypertension Mother Hypertension Other No family history of adverse response to anesthesia Social History Smoking Status: Current every day smoker Tobacco Type: Cigarettes Cigarettes Per Day: 0.5; Second Hand Exposure: Yes; Do You Dip or Chew Tobacco: No; Hx Alcohol Use: No Hx Substance Use: No Preferred Language: Frisian Communication Ability: Effective Visual Impairment: No Limitations Skin Grader Required: No Beliefs That Will Affect Care: None marital status: Current Living Situation: Spouse current occupational status: disabled current occupation: Retired How many Children do You have: 1 Feels Safe at Home: Yes Diet: regular during the past year weight has: decreased > 10 lbs Assistive Devices: Prosthesis, Walker, Wheelchair and Other Review of System 10-point review of systems reviewed and are negative except for as above. Physical Exam Physical Exam: General: Awake, alert, no acute distress HEENT: NC/AT, EOMI, mmm Neck: supple Lungs: respirations non-labored Heart: nl peripheral perfusion Chest: left breast with post-surgical changes, some swelling, no erythema or drainage Abdomen: soft, tender/swollen near left groin area Left groin: redness which is decreasing per family, tender Ext: left stump tender, no open wounds, chronic skin changes Neuro: moving all extremities Results & Data Vital Signs (Past 12 Hours) Vital Signs Temp Pulse Resp BP Pulse Ox O2 Del Method 11/14/24 07:45 Room Air 11/14/24 07:08 36.7 C 72 16 133/84 95 Room Air Laboratory Results Labs reviewed. Diagnostic Findings Imaging reviewed.
[2024-11-14] MEDS: KETOCONAZOLE 2% CR 15 GM TUBE EXT SCH (11:36)
--- NOTE | 2024-11-14 13:39 | XRay Report ---
XR knee LT 1 or 2V routine CLINICAL HISTORY: stump pain COMPARISON: None FINDINGS: 2 views of the left knee demonstrate a supracondylar fracture of the distal left femur wit h approximately 1 cm of posterior and lateral displacement of the condyles in relationship to the fem oral shaft. An arterial graft is identified in the posterior aspect of the distal thigh. Patient is s tatus post BK amputation. IMPRESSION: Displaced distal femoral fracture just proximal to the condyles. ACT 112: Negative or not required by law. Electronically signed by: Bren Dave M.D. 11/14/2024 1:38 PM
[2024-11-14 18:54] LABS: Base Excess VBG -7.7 mEq/L; HCO3 VBG 18 mmol/L; Oxygen Saturation VBG 90.9 %; PCO2 VBG 34 mmHg (38-50); PO2 VBG 61 mmHg; pH VBG 7.32 (7.36-7.41)
[2024-11-14 19:14] LABS: BUN Creatinine Ratio 16.9 (10-20); Calcium 8.7 mg/dl (8.6-10.3); Creatinine Clr Calc Pharmacy 86.5 ml/min; Potassium 4.3 mmol/L (3.5-5.1)
--- NOTE | 2024-11-14 19:44 | Orthopedic Consultation ---
Date of Consultation November 14, 2024 Assessment & Plan (1) Fracture of distal end of left femur: Patient had a fall several days ago likely resulting in the mildly displaced distal femur fracture. This is a closed injury. Patient is in a wheelchair most of the time. She was seen by Dr. Agudelo and myself in her room. Nursing staff was present, confirmed that she has been intermittently drowsy over the past few days. Given her ambulatory status, decision was made to apply a plaster splint cast to allow this to heal. A stockinette was applied to the stump extending into the proximal thigh. The stump and thigh was then well-padded with waterproof cotton padding. We did not take the stockinette or cotton padding as high into the groin as we normally would due to her cellulitis/rash in the groin area. A well molded plaster cast was then applied to the stump extending up into the proximal thigh. Careful attention was made to leave the edges soft and well-padded. The cast was molded so the knee remained in slight flexion and to keep the cast from sliding off the stump. Patient reported improvement in pain after application of the cast. Left knee x-ray ordered for tomorrow morning at 8:00. Will need to be reviewed. This cast will remain in place. Nonoperable management. She should have a follow-up appointment in 2 weeks in our office. This will need to be coordinated with her family members as they were not present in the room this evening. She is to remain nonweightbearing left lower extremity. PT and OT evaluation once she is able though does not appear to have much energy currently. May require placement. Pain control and DVT prophylaxis per primary service. Supervising Physician Co-Signing Physician Notes I saw and examined the patient, reviewed her imaging, formulated the plan, pl aced her in a cast, and performed the substantive portion of the visit. Agree with above note. Keep cast clean and dry. She will be NWB on the cast. Follow-up in ortho clinic with PA in 2 weeks for repeat x-rays in the cast. Plan for 6-8 weeks of casting depending on healing. History of Present Illness Reason for Consultation: Left distal femur fracture Attending Physician: Sebastien Oconnor History of Present Illness History is limited due to patient drowsiness Anisha is a 64-year-old female with a history of left BKA, history of bilateral femoral endarterectomy and iliac stent, recent RLE ischemia s/p thrombec wili/angioplasty/stent/bypass in 12/2023, COPD, chronic pain syndrome, neuralgia, peripheral vascular disease, history of CABG, atrial fibrillation on eliquis, who has been admitted since 11/11/2024 for left groin pain/cellulitis and was having left sided pain secondary to a fall. She has been on antibiotics and receiving medical management while admitted for left groin and abdominal wall cellulitis and intertrigo, hyperkalemia, chronic hyponatremia. Patient was having ongoing pain near her left knee, so an x-ray was obtained demonstrating a distal femoral fracture. Patient confirms she fell onto this several days ago prior to presenting to the emergency department. She underwent this BKA around 2016. She had an ankle fracture that was repaired and subsequently became infected. Apparently it was debrided over 15 times, and eventually the decision was made to proceed with the amputation. Patient is in a wheelchair most of the time. Allergies Allergy/AdvReac Type Severity Reaction Status Date / Time adhesive Allergy Severe SEVERE Verified 04/03/24 14:51 SKIN IRRITATION guanfacine Allergy Intermediate BP PROBLEMS Verified 04/03/24 14:51 nifedipine Allergy Intermediate BP PROBLEMS Verified 04/03/24 14:51 acetaminophen AdvReac Severe LIVER Verified 04/03/24 14:51 DAMAGE-DUE TO FAILURE amoxicillin AdvReac Severe LIVER Verified 04/03/24 14:51 FAILURE clavulanic acid AdvReac Severe LIVER Verified 04/03/24 14:51 FAILURE Home Medications Medication Instructions Recorded Confirmed Type atorvastatin 80 mg tablet (Lipitor) 80 mg PO HS 06/06/19 11/11/24 History aspirin 81 mg tablet,delayed 81 mg PO QAM 12/19/19 11/11/24 History release (Tj Low Dose Aspirin) amitriptyline 50 mg tablet 50 mg PO HS 09/11/22 11/11/24 History sennosides 8.6 mg-docusate sodium 2 tab PO QAM PRN constipation #60 04/18/23 11/11/24 Rx 50 mg tablet (Senokot-S) tabs metoprolol succinate 25 mg 25 mg PO BID 04/25/23 11/11/24 History tablet,extended release 24 hr oxycodone 5 mg capsule 5 mg PO TID PRN moderate-severe 11/04/23 11/11/24 History pain apixaban 5 mg tablet (Eliquis) 5 mg PO BID 12/31/23 11/11/24 History alendronate 70 mg tablet 70 mg PO WK 01/05/24 11/11/24 History npkyuf-nhdbtlqe-omqvver 1 cap PO UD 01/05/24 11/11/24 History 3,000-9,500-15,000 unit capsule, delayed rel (Creon) zolpidem 10 mg tablet (Ambien) 10 mg PO HS 01/05/24 11/11/24 History potassium chloride 20 mEq 40 meq (2 x 20 mEq) PO BID #120 05/18/24 11/11/24 Rx tablet,extended release tabs pantoprazole 40 mg tablet,delayed 40 mg PO QAM #120 tabs 08/21/24 11/11/24 Rx release (Protonix) bumetanide 2 mg tablet 2 mg PO BID #180 tabs 08/23/24 11/11/24 Rx sodium chloride 1,000 mg soluble 1,000 mg PO BID #180 tabs 09/04/24 11/11/24 Rx tablet pregabalin 300 mg capsule 300 mg PO QAM 11/11/24 11/11/24 History Patient History Medical History Acute blood loss anemia History of anesthesia reaction [place] [facility] [place] GI bleeding [place], hospitalized at [facility] > due to this, patient switched from Xarelto to Eliquis > no further bleeding issues Splenic infarct pot unaware Acute pancreatitis Pancreas cyst AV block with subsequent syncope - s/p dual chamber pacemaker ([employer]tr[employer]) - 2018 per cardio records History of COVID-19 08/2021- pcr test [place], not hosp; no symptoms, was in the ER for another issue Metabolic alkalosis TRISTAN (dyspnea on exertion) Severe mitral regurgitation Per patient, [place] [place] but [place] (07/[place]21) (little improvement of regurgitation with MitraClip x2- procedure aborted Hx of gastric ulcer Neuropathy Hx of pancreatitis Chronic. Due to heavy alcohol consumption per records Anxiety and depression DVT (deep venous thrombosis) 40+ years ago Hx of migraines Pacemaker Dual-chamber, implanted 2018 (high grade AVB/sinus node dysfunction), [employer], follows with Dr. Zarate > last checked in February 2023 GERD (gastroesophageal reflux disease) Hyponatremia Chronic issue- follows with nephrology Chronic pain syndrome Tobacco use disorder Paroxysmal atrial fibrillation Eliquis/pacer Surgical History Hx of oral surgery (09/17/22) Debridement Necrotic Bone and Soft Tissue and Associated Infected Periodontally Infected Teeth to Allow Mitral Valve Replacement (Lower Jaw)(Not Applicable) - Ha Champion, DMD Hx of vascular surgery 11/2019, with dr sethi, [facility], replaced 2 veins with bovine veins in Rt leg History of surgery (~07/30/21) [place] [place] performed but unsuccessful (07/2021); currently being seen in [facility] for a trial for valve replacement History of esophagogastroduodenoscopy (EGD) History of cardiac cath (~04/24/21) 03/2021@ [facility] with Dr. Carbajal, no evidence of epicardial CAD S/P angiogram of extremity right lower leg S/P femoral-popliteal bypass surgery History of amputation REVISION OF AMPUTATION LLE History of colonoscopy History of tooth extraction History of appendectomy Family History Unknown No problems noted. Father Family history of diabetes mellitus Breast cancer Diabetes Hypertension Mother Hypertension Other No family history of adverse response to anesthesia Social History Smoking Status: Current every day smoker Tobacco Type: Cigarettes Cigarettes Per Day: 0.5; Second Hand Exposure: Yes; Do You Dip or Chew Tobacco: No; Hx Alcohol Use: No Hx Substance Use: No Preferred Language: Kiswahili Communication Ability: Effective Visual Impairment: No Limitations Boarding Specialist Required: No Beliefs That Will Affect Care: None marital status: Current Living Situation: Spouse current occupational status: disabled current occupation: Retired How many Children do You have: 1 Feels Safe at Home: Yes Diet: regular during the past year weight has: decreased > 10 lbs Assistive Devices: Prosthesis, Walker, Wheelchair and Other Physical Exam Constitutional: Drowsy appearing. Resting. Able to be awakened however remains drowsy during evaluation. Musculoskeletal: Left lower extremity: Left BKA. Stump without dehiscence. There is tenderness in the distal femur. Knee held in flexed position, difficult for her to initiate extension of the knee. Skin: Erythematous rash in the left groin extending onto the abdominal wall Neurologic: Arousable to verbal stimulus. Aware of recent events. Genitourinary: Torres catheter in place Results & Data Vital Signs (Past 12 Hours) Vital Signs Temp Pulse Resp BP Pulse Ox O2 Del Method 11/14/24 19:36 97.9 F 74 20 119/77 97 Room Air 11/14/24 15:35 97.5 F L 79 16 115/83 98 Room Air 11/14/24 07:45 Room Air Diagnostic Findings Knee X-Ray 11/14/24 11:43 XR knee LT 1 or 2V routine CLINICAL HISTORY: stump pain COMPARISON: None FINDINGS: 2 views of the left knee demonstrate a supracondylar fracture of the distal left femur with approximately 1 cm of posterior and lateral displacement of the condyles in relationship to the femoral shaft. An arterial graft is identified in the posterior aspect of the distal thigh. Patient is status post BK amputation. IMPRESSION: Displaced distal femoral fracture just proximal to the condyles. ACT 112: Negative or not required by law. Electronically signed by: Bren Dave M.D. 11/14/2024 1:38 PM (1) Fracture of distal end of left femur Encounter type: initial encounter Fracture morphology: other fracture Fracture type: closed Qualified Code(s): S72.492A - Other fracture of lower end of left femur, initial encounter for closed fracture
--- NOTE | 2024-11-14 22:14 | Hospitalist Progress Note ---
Date of Service November 14, 2024 Assessment & Plan (1) Abdominal wall cellulitis: (2) Cellulitis of groin, left: (3) Hyperkalemia: (4) Chronic hyponatremia: Plan The patient is a 64-year-old female with a past medical history including left BKA, status post right bypass several years ago, history abdominal wall cellulitis and left groin cellulitis, iron deficiency anemia, chronic respiratory failure, pancreatic cyst, periodontal disease, ANUG, Tatian, COPD, chronic pain syndrome, neuralgia, GERD, pression with anxiety, tension, history of CABG surgery as noted, dyslipidemia, PVD, history of ORIF ankle fracture. Patient presents to the emergency department with worsening left groin cellulitis and pain, she notes worsening after falling DKA earlier in the day today. She has been eating and drinking as per usual. Taking medications as directed. She has no generalized complaints sweats fevers or chills. She reports normal bowel and urinary function. Her is with her, does help her with ADLs at home. The patient was noted to have severe left groin erythema , induration and pain, was started on cefepime and nystatin powder, received Dilaudid 0.5 mg IV, normal saline 1 L bolus, morphine sulfate 4 mg IV and Zofran 4 mg IV, and and [facility] then [facility]. #Severe left groin/ abdominal wall cellulitis- Looks to be combination of bacterial and fungal Received cefepime 2 g IV from the ED Continue cefepime 2 g IV every 12 hours Add daptomycin 275 mg IV daily Add fluconazole 200 mg IV daily Will consult wound care -continues to be erythematous, tender to palpation. consulted infectious disease:appreciate input. Patient is unable to take Tylenol due to liver dysfunction history Continue oxycodone 5 mg p.o. Q4h as needed. patient gets drowsy easily from narcotics Dilaudid 0.5 mg IV every 3 hours as needed for moderate pain Dilaudid 1 mg IV every 3 hours as needed for severe pain will consider holding narcotics Chart review. #Left acute displaced femoral fracture: continue pain medicine. confirmed by xray today. consult ortho. Ascites/anasarca/hypoalbuminemia- Patient looks more to be on the dry side but then overload. Hyperkalemia- recheck at goal 4.8 Chronic Hyponatremia Follows up with nephrology outpatient Atrial fibrillation/hypertension-continue aspirin, Eliquis, metoprolol succinate Hold potassium chloride and bumetanide as noted above Chronic medical conditions: Chronic hyponatremia/SIADH history-Continue sodium chloride 1 g p.o. twice daily. Sodium 130 admission, serum osmolality 279 and urine osmolality pending.Serial laboratories Exocrine pancreatic insufficiency-Continue Creon GERD-continue pantoprazole Peripheral neuropathy-continue amitriptyline pregabalin full code Admission and Anticipated Discharge Date Admission Date: November 11, 2024 Subjective Patient reports pain is controlled. Physical Exam Physical Exam: The patient is awake, drowsy HEENT--PERRL, EOMI Neck--supple. No JVD. No bruits. Thyroid normal, trachea midline, no adenopathy. Heart--normal S1 and S2. No murmurs, rubs or gallops. Lungs--clear bilaterally, no respiratory distress, no accessory muscle use. Abdomen--normal bowel sounds and soft. Extremities--no cyanosis or clubbing. No edema. Groin: left, erythematous, with excoriations, warm, tender Results & Data Results & Data Vital Signs (Past 12 Hours) Vital Signs Temp Pulse Resp BP Pulse Ox O2 Del Method 11/14/24 19:36 36.6 C 74 20 119/77 97 Room Air 11/14/24 15:35 36.4 C L 79 16 115/83 98 Room Air PG Care Time/CCT Total # of Minutes Spent Total Time Spent with Patient: Total time spent is greater than 50% in coordination of care (as documented) at patient's floor/unit and/or counseling patient: Coding Level of Care Code 59706 SUB INP/OBS CARE 3/50MIN Diagnoses Abdominal wall cellulitis L03.311 Cellulitis of groin, left L03.314 Hyperkalemia E87.5 Chronic hyponatremia E87.1
[2024-11-14 23:32] LABS: Hematocrit (blood only) 28.2 % (37.0-47.0); Hemoglobin 8.8 g/dl (12.0-16.0)
[2024-11-15 06:35] LABS: Hematocrit (blood only) 28.9 % (37.0-47.0); Mean Corpuscular Hemoglobin 30.9 pg (25.0-34.0); Mean Corpuscular Hgb Conc 31.1 g/dL (32.0-36.0); Mean Corpuscular Volume 99.3 fL (80.0-100.0); Mean Platelet Volume 11.3 fL (9.4-12.4); Platelet Count 141 K/uL (130-400); RDW Coefficient of Variation 21.2 % (11.5-14.5); RDW Standard Deviation 76.6 fL (36.4-46.3); Red Blood Count 2.91 M/uL (4.20-5.40)
[2024-11-15 06:58] LABS: BUN Creatinine Ratio 16.2 (10-20); C Reactive Protein 2.77 mg/dl (0-0.5); Calcium 8.7 mg/dl (8.6-10.3); Creatinine Clr Calc Pharmacy 90.3 ml/min; Potassium 4.3 mmol/L (3.5-5.1)
--- NOTE | 2024-11-15 07:51 | XRay Report ---
EXAM: XR knee LT 1 or 2V routine CLINICAL HISTORY: S/p splinting femoral fracture. TECHNIQUE: X-ray images of the left knee were obtained in anteroposterior (AP) and lateral projections. COMPARISON: CR study dated 04/24/2018 was reviewed. FINDINGS: Bone Structure: suboptimal study due to cast. A displaced posteriorly angulated fracture of the left distal femur is seen. Below knee amputation. A vascular stent is seen at the posterior aspect of the distal thigh. Marked soft tissue swelling. Patella: Suspected patellar fracture. The patella is normal in position and alignment. No evidence of patellar dislocation or subluxation. IMPRESSION: 1. A displaced posteriorly angulated fracture of the left distal femur is seen. 2. Suspected patellar fracture 3. Below knee amputation. (Stable). Disclaimer: A subtle bone abnormality or fracture may not be readily apparent on X-rays, thus clinical correlation and further imaging including follow-up CT, MRI, or follow-up X-rays are advised as needed. Electronically signed by Richard Mane 11-15-2024 07:50 AM
--- NOTE | 2024-11-15 09:28 | Infectious Disease Progress Nt ---
Date of Service November 15, 2024 Assessment & Plan (1) Cellulitis of groin, left: (2) Candidiasis: (3) Chronic pain syndrome: (4) PVD (peripheral vascular disease): Plan 64yo F with h/o PVD, bl femoral endarterectomy and iliac stent, recent RLE ischemia s/p thrombectomy/angioplasty/stent/bypass in 12/2023, left ankle fracture s/p ORIF, s/p left BKA, prior cellulitis of abdominal wall cellulitis and groin, afib, AV block s/p PPM, COPD, chronic pain syndrome, neuralgia, GERD, CAD s/p CABG, ankle fractures s/p ORIF, left breast abscess s/p drainage in 2001, baseline abdominal pain r/t prior h/o pancreatitis who presented on 11/10 with left groin redness and pain that was worsening after her fall earlier in the day. No fevers or chills. On admission, she was afebrile, vss. Initial labs with WBC wnl, Cr 0.81, AST/ALT wnl. Lactate 1.4. UA negative. Trauma w/u neg including CTH and CT c spine. CT chest/a/p with left basilar airspace opacity, atelectasis favored by PNA cannot be excluded. She was found with severe left groin cellulitis and was started on empiric abx as well as fluconazole. ID consulted 11/13. Abx de-escalated to daptomycin with topical antifungal. XR of left stump with displaced distal femoral fractures. Seen by ortho and cast was placed. Left groin with much more improvement today, still with pain. Can continue on daptomycin while inpatient along with topical antifungals. # Left groin cellulitis and intertrigo # Left femoral fractures s/p cast # PVD with multiple prior surgeries - continue on ketoconazole topical cream for left groin for at least 2 weeks - continue on daptomycin (4mg/kg for SSTI, 275mg) IV q24h - plan for 7 days of abx (last day on 11/17) which can be done with doxycycline 100mg PO bid if she is discharged ID will discontinue active follow up at this time. Please do not hesitate to reconsult the Infectious Diseases service as needed. Mallory Sky MD [facility], Division of Infectious Diseases [facility]: [phone] Admission and Anticipated Discharge Date Admission Date: November 11, 2024 Subjective Subsequent visit was provided via telemedicine using two-way real-time interactive telecommunication between the patient and the telemedicine provider. For the duration of the visit, the provider was performing the assessment from a different facility than the patient. This includesuse of bluetooth stethoscope forauscultationperformed by the telepresenter that the telemedicine provider can hear if described in the physical exam. Home Care Manager Rn contact information: Please call [facility] Call Center . (Phone Number For Physician Use Only) After establishing a telemedicine visit, patient was: Patient was verified with two unique identifiers, Patient/authorized rep acknowledged consent and understanding and Gave permission to continue telehealth session Time Spent with Patient: Subsequent => 35 min Patient with pain in left leg and groin. Somewhat difficult to obtain further history. Physical Exam Physical Exam: General: Awake, no acute distress HEENT: mmm Neck: supple Lungs: respirations non-labored Heart: nl peripheral perfusion Abdomen: soft, left groin with much more improved erythema, twister frame tender Ext: LLE in cast Results & Data Vital Signs (Past 12 Hours) Vital Signs Temp Pulse Resp BP Pulse Ox O2 Del Method 11/15/24 07:15 Room Air 11/15/24 07:03 36.4 C L 67 17 146/84 H 100 Room Air Laboratory Results Labs reviewed. Diagnostic Findings Imaging reviewed.
--- NOTE | 2024-11-15 09:31 | Orthopedic Progress Note ---
Date of Service November 15, 2024 Assessment & Plan (1) Fracture of distal end of left femur: Plan: Cast left lower extremity. Apply ABD pads around the upper end of the cast as needed for comfort and to prevent skin breakdown. May elevate left leg as needed for edema or comfort on pillows. Maintain nonweightbearing left lower extremity. PT and OT Pain control and DVT prophylaxis as per primary service. Will arrange follow-up approximately 2 weeks for repeat x-rays of the left in cast. Call with any problems, questions or concerns. X-ray findings discussed with Dr. Agudelo today. Admission and Anticipated Discharge Date Admission Date: November 11, 2024 Subjective Patient resting in bed, sleepy, does not open eyes when I'm in room, but does nod head in response to questions. Physical Exam Musculoskeletal: Cast is intact on her left leg. Not cause any rubbing on the upper thigh area as of today. The thigh is edematous due to her cellulitis. Cast does not seem to be bothering her. Results & Data Vital Signs (Past 12 Hours) Vital Signs Temp Pulse Resp BP Pulse Ox O2 Del Method 11/15/24 07:15 Room Air 11/15/24 07:03 36.4 C L 67 17 146/84 H 100 Room Air Diagnostic Findings Knee X-Ray 11/14/24 11:43 XR knee LT 1 or 2V routine CLINICAL HISTORY: stump pain COMPARISON: None FINDINGS: 2 views of the left knee demonstrate a supracondylar fracture of the distal left femur with approximately 1 cm of posterior and lateral displacement of the condyles in relationship to the femoral shaft. An arterial graft is identified in the posterior aspect of the distal thigh. Patient is status post BK amputation. IMPRESSION: Displaced distal femoral fracture just proximal to the condyles. ACT 112: Negative or not required by law. Electronically signed by: Bren Dave M.D. 11/14/2024 1:38 PM Knee X-Ray 11/15/24 08:00 EXAM: XR knee LT 1 or 2V routine CLINICAL HISTORY: S/p splinting femoral fracture. TECHNIQUE: X-ray images of the left knee were obtained in anteroposterior (AP) and lateral projections. COMPARISON: CR study dated 04/24/2018 was reviewed. FINDINGS: Bone Structure: suboptimal study due to cast. A displaced posteriorly angulated fracture of the left distal femur is seen. Below knee amputation. A vascular stent is seen at the posterior aspect of the distal thigh. Marked soft tissue swelling. Patella: Suspected patellar fracture. The patella is normal in position and alignment. No evidence of patellar dislocation or subluxation. IMPRESSION: 1. A displaced posteriorly angulated fracture of the left distal femur is seen. 2. Suspected patellar fracture 3. Below knee amputation. (Stable). Disclaimer: A subtle bone abnormality or fracture may not be readily apparent on X-rays, thus clinical correlation and further imaging including follow-up CT, MRI, or follow-up X-rays are advised as needed. Electronically signed by Richard Mane 11-15-2024 07:50 AM X-rays reviewed by myself today. No significant change in alignment of her distal femur fracture since cast application. (1) Fracture of distal end of left femur Encounter type: initial encounter Fracture type: closed Fracture morphology: other fracture Qualified Code(s): S72.492A - Other fracture of lower end of left femur, initial encounter for closed fracture
[2024-11-15 14:06] LABS: Appearance Urine Cloudy (Clear); Bilirubin Urine 1+ (Negative); Blood Urine 3+ (Negative); Color Urine Red; Glucose Urine UA Negative (Negative); Ketones Urine Negative (Negative); Leukocyte Esterase Urine Negative (Negative); Nitrite Urine Negative (Negative); Protein Urine 3+ (Negative); Specific Gravity Urine >= 1.030 (1.000-1.030); Urobilinogen Urine Negative (Negative)
[2024-11-15 14:12] LABS: Epithelial Cell Urine 0-2 /hpf (0-2)
[2024-11-15 14:13] LABS: Bacteria Urine None Seen (None Seen)
--- NOTE | 2024-11-15 22:40 | Hospitalist Progress Note ---
Date of Service November 15, 2024 Assessment & Plan (1) Abdominal wall cellulitis: (2) Cellulitis of groin, left: (3) Hyperkalemia: (4) Chronic hyponatremia: Plan The patient is a 64-year-old female with a past medical history including left BKA, status post right bypass several years ago, history abdominal wall cellulitis and left groin cellulitis, iron deficiency anemia, chronic respiratory failure, pancreatic cyst, periodontal disease, ANUG, Tatian, COPD, chronic pain syndrome, neuralgia, GERD, pression with anxiety, tension, history of CABG surgery as noted, dyslipidemia, PVD, history of ORIF ankle fracture. Patient presents to the emergency department with worsening left groin cellulitis and pain, she notes worsening after falling DKA earlier in the day today. She has been eating and drinking as per usual. Taking medications as directed. She has no generalized complaints sweats fevers or chills. She reports normal bowel and urinary function. Her is with her, does help her with ADLs at home. The patient was noted to have severe left groin erythema , induration and pain, was started on cefepime and nystatin powder, received Dilaudid 0.5 mg IV, normal saline 1 L bolus, morphine sulfate 4 mg IV and Zofran 4 mg IV, and and [facility]. #Severe left groin/ abdominal wall cellulitis- Looks to be combination of bacterial and fungal Received cefepime 2 g IV from the ED Continue cefepime 2 g IV every 12 hours Add daptomycin 275 mg IV daily Add fluconazole 200 mg IV daily Will consult wound care -continues to be erythematous, tender to palpation. consulted infectious disease:appreciate input. Patient is unable to take Tylenol due to liver dysfunction history Continue oxycodone 5 mg p.o. Q4h as needed. patient gets drowsy easily from narcotics Dilaudid 0.5 mg IV every 3 hours as needed for moderate pain Dilaudid 1 mg IV every 3 hours as needed for severe pain will consider holding narcotics Chart review. #lethargy Perhaps from polypharmacy. will hold IV narcotics, will hold amitryptyline and reassess tomorrow. #Left acute displaced femoral fracture: continue pain medicine. confirmed by xray today. consult ortho. Ascites/anasarca/hypoalbuminemia- Patient looks more to be on the dry side but then overload. Hyperkalemia- recheck at goal 4.8 Chronic Hyponatremia Follows up with nephrology outpatient Atrial fibrillation/hypertension-continue aspirin, Eliquis, metoprolol succinate Hold potassium chloride and bumetanide as noted above Chronic medical conditions: Chronic hyponatremia/SIADH history-Continue sodium chloride 1 g p.o. twice daily. Sodium 130 admission, serum osmolality 279 and urine osmolality pending.Serial laboratories Exocrine pancreatic insufficiency-Continue Creon GERD-continue pantoprazole Peripheral neuropathy-continue amitriptyline pregabalin full code DIscharge is difficult given that patient has a fracture on her left stump and is unable to bear weight on it. This normally helps patient with transfers. Discussed with correctional case manager Admission and Anticipated Discharge Date Admission Date: November 11, 2024 Subjective Patient is drowsy today. Physical Exam Physical Exam: The patient is awake, drowsy HEENT--PERRL, EOMI Neck--supple. No JVD. No bruits. Thyroid normal, trachea midline, no adenopathy. Heart--normal S1 and S2. No murmurs, rubs or gallops. Lungs--clear bilaterally, no respiratory distress, no accessory muscle use. Abdomen--normal bowel sounds and soft. Extremities--no cyanosis or clubbing. No edema. Groin: left, erythematous, with excoriations, warm, tender Results & Data Results & Data Vital Signs (Past 12 Hours) Vital Signs Temp Pulse Resp BP Pulse Ox O2 Del Method 11/15/24 21:28 36.8 C 70 20 131/76 96 Room Air 11/15/24 14:20 36.8 C 63 16 136/81 97 Room Air PG Care Time/CCT Total # of Minutes Spent Total Time Spent with Patient: Total time spent is greater than 50% in coordination of care (as documented) at patient's floor/unit and/or counseling patient: Coding Level of Care Code 58945 SUB INP/OBS CARE 3/50MIN Diagnoses Abdominal wall cellulitis L03.311 Cellulitis of groin, left L03.314 Hyperkalemia E87.5 Chronic hyponatremia E87.1
[2024-11-16 06:44] LABS: Hematocrit (blood only) 27.8 % (37.0-47.0); Hemoglobin 8.7 g/dl (12.0-16.0); Mean Corpuscular Hemoglobin 30.9 pg (25.0-34.0); Mean Corpuscular Hgb Conc 31.3 g/dL (32.0-36.0); Mean Corpuscular Volume 98.6 fL (80.0-100.0); Mean Platelet Volume 11.2 fL (9.4-12.4); Platelet Count 137 K/uL (130-400); RDW Coefficient of Variation 21.3 % (11.5-14.5); RDW Standard Deviation 75.9 fL (36.4-46.3); Red Blood Count 2.82 M/uL (4.20-5.40); White Blood Count 6.33 K/ul (4.8-10.8)
[2024-11-16 06:56] LABS: BUN Creatinine Ratio 15.5 (10-20); Calcium 8.6 mg/dl (8.6-10.3); Creatinine Clr Calc Pharmacy 105.9 ml/min
--- NOTE | 2024-11-16 11:07 | Orthopedic Progress Note ---
Date of Service November 16, 2024 Assessment & Plan (1) Fracture of distal end of left femur: Plan: The patient was evaluated in her room. Cast is in place on the left lower extremity. Nursing may apply ABD pads around the upper end of the cast as needed for comfort and to prevent skin breakdown. Also elevate left leg as needed for edema or comfort on pillows. Maintain nonweightbearing left lower extremity. PT and OT as tolerated Pain control and DVT prophylaxis as per primary service. She will have follow-up in approximately 2 weeks for repeat x-rays of the left in cast. Call with any problems, questions or concerns. Admission and Anticipated Discharge Date Admission Date: November 11, 2024 Subjective This 64-year-old female is seen today in her room. She is very somnolent. She complains of leg pain, but cannot provide details as to if it is her left or right, or the location. No additional complaints. Physical Exam Physical Exam: General: Well-developed, obese middle-aged female, who is extremely somnolent. Occasionally awakens to complain of leg pain. Skin: Warm and dry with fair turgor. She continues to have erythema along her left inguinal crease and into the abdomen. She has no erythema or skin breakdow n along the edges of her left leg stump cast. No intra-articular effusion in the right knee. Musculoskeletal: The patient does not complain of any discomfort with palpation around her cast or over her left hip. She has no discomfort complaints with passive motion of her right ankle, knee, or hip. In fact, she is sleeping through most of her right leg exam. Good ankle dorsiflexion and plantarflexion as well as knee flexion and extension. Neurologic: Gross sensation in the lower extremities is unable to be assessed due to patient's somnolence. Peripheral pulses are 2+ on the right ankle for dorsalis pedis and posterior tibial. Results & Data Vital Signs (Past 12 Hours) Vital Signs Temp Pulse Resp BP Pulse Ox O2 Del Method 11/16/24 07:15 Room Air 11/16/24 07:15 36.4 C L 66 14 129/77 96 Room Air Laboratory Results CBC obtained this morning shows a white count of 6.3. H&H of 8.7 and 27.8. Platelets 137,000. Sodium has improved nicely at 134, potassium is stable at 4.0. BUN of 9 with creatinine 0.58. Glucose this morning is 75. (1) Fracture of distal end of left femur Encounter type: initial encounter Fracture morphology: other fracture Fracture type: closed Qualified Code(s): S72.492A - Other fracture of lower end of left femur, initial encounter for closed fracture
--- NOTE | 2024-11-16 11:14 | Urology Consultation ---
<Statement entered by Eddie Gallegos MD - 11/16/24 12:21> 64-year-old female with hematuria. She will require CT urogram for imaging of the upper tract as well as cystoscopy to evaluate the bladder. Urology can coordinate these as an outpatient. She becomes unable to void, hand irrigation could be performed to remove any clots. Date of Consultation November 16, 2024 Assessment & Plan (1) Hematuria: 64-year-old female admitted for severe left groin cellulitis. Urology is consulted for hematuria Labs reviewedcreatinine 0.58, WBC 6.33, hemoglobin 8.7 Continue to trend labs, H&H and transfuse as necessary per hospital medicine UA on arrival showed 2+ blood, leukocytes and bacteria Urine culture did not grow any specific bacteria, probable skin jarod She is currently on antibiotics for severe groin cellulitis Reviewed and discussed hematuria work-up including imaging and cystoscopy CT during admission showed no stones or hydronephrosis, no solid renal mass lesions Recommend finalize hematuria workup with a cystoscopy, which can be performed outpatient For now, continue to monitor Okay to hand irrigate catheter as needed for catheter obstruction Will arrange follow-up with our service outpatient will sign off, please contact our service with any questions or concerns History of Present Illness Reason for Consultation: hematuria Requesting Physician: Dr. Oconnor Attending Physician: Sebastien Oconnor History of Present Illness This is a 64-year-old female with past medical history including left BKA, COPD, chronic respiratory failure, CAD status post CABG, and atrial fibrillation on eliquis who presented to the emergency department on 11/10/2024 for evaluation of worsening left groin cellulitis and left sided pain secondary to a fall. She was admitted to the hospital medicine service for antibiotics and antifungals for severe left groin cellulitis and medical management for hyponatremia. Urology is consulted today for hematuria. Labs today reviewedcreatinine 0.58, WBC 6.33, hemoglobin 8.7 Urinalysis on arrival showed 2+ blood, 2+ LE, 6-10 RBC, 6-10 epithelial cells and 2+ bacteria Urine culture showed more than 3 types of organisms present, all moderate counts mixed probable skin jarod Workup on arrival included CT abdomen pelvis with IV contrast. CT imaging reviewed and showed no stones or hydronephrosis. Left renal cyst. Patient seen and examined at bedside this morning. She is somewhat drowsy, but answers yes/no questions. Torres intact. Per patient's , hematuria started after catheter placement. Tolerating Torres catheter. Occasional dysuria. No fever or chills. Long smoking history, 1.5 ppd at present. No prior urology evaluations. Denies family hx of malignancy. Allergies Allergy/AdvReac Type Severity Reaction Status Date / Time adhesive Allergy Severe SEVERE Verified 04/03/24 14:51 SKIN IRRITATION guanfacine Allergy Intermediate BP PROBLEMS Verified 04/03/24 14:51 nifedipine Allergy Intermediate BP PROBLEMS Verified 04/03/24 14:51 acetaminophen AdvReac Severe LIVER Verified 04/03/24 14:51 DAMAGE-DUE TO FAILURE amoxicillin AdvReac Severe LIVER Verified 04/03/24 14:51 FAILURE clavulanic acid AdvReac Severe LIVER Verified 04/03/24 14:51 FAILURE Home Medications Medication Instructions Recorded Confirmed Type atorvastatin 80 mg tablet (Lipitor) 80 mg PO HS 06/06/19 11/11/24 History aspirin 81 mg tablet,delayed 81 mg PO QAM 12/19/19 11/11/24 History release (Tj Low Dose Aspirin) amitriptyline 50 mg tablet 50 mg PO HS 09/11/22 11/11/24 History sennosides 8.6 mg-docusate sodium 2 tab PO QAM PRN constipation #60 04/18/23 11/11/24 Rx 50 mg tablet (Senokot-S) tabs metoprolol succinate 25 mg 25 mg PO BID 04/25/23 11/11/24 History tablet,extended release 24 hr oxycodone 5 mg capsule 5 mg PO TID PRN moderate-severe 11/04/23 11/11/24 History pain apixaban 5 mg tablet (Eliquis) 5 mg PO BID 12/31/23 11/11/24 History alendronate 70 mg tablet 70 mg PO WK 01/05/24 11/11/24 History wkgwtv-yhbixuur-prysfyd 1 cap PO UD 01/05/24 11/11/24 History 3,000-9,500-15,000 unit capsule, delayed rel (Creon) zolpidem 10 mg tablet (Ambien) 10 mg PO HS 01/05/24 11/11/24 History potassium chloride 20 mEq 40 meq (2 x 20 mEq) PO BID #120 05/18/24 11/11/24 Rx tablet,extended release tabs pantoprazole 40 mg tablet,delayed 40 mg PO QAM #120 tabs 08/21/24 11/11/24 Rx release (Protonix) bumetanide 2 mg tablet 2 mg PO BID #180 tabs 08/23/24 11/11/24 Rx sodium chloride 1,000 mg soluble 1,000 mg PO BID #180 tabs 09/04/24 11/11/24 Rx tablet pregabalin 300 mg capsule 300 mg PO QAM 11/11/24 11/11/24 History Patient History Medical History Acute blood loss anemia History of anesthesia reaction woke up in middle of an EGD once at [facility] Acute GI bleeding Oct 2023, hospitalized at [facility] > due to this, patient switched from Xarelto to Eliquis > no further bleeding issues Splenic infarct pot unaware Acute pancreatitis Pancreas cyst AV block with subsequent syncope - s/p dual chamber pacemaker ([employer]) - 2018 per cardio records History of COVID-19 08/2021- pcr test [place], not hosp; no symptoms, was in the ER for another issue Metabolic alkalosis TRISTAN (dyspnea on exertion) Severe mitral regurgitation Per patient, attempt for MitraClip ([facility]) was performed but unsuccessful (07/2021) (little improvement of regurgitation with MitraClip x2- procedure aborted Hx of gastric ulcer Neuropathy Hx of pancreatitis Chronic. Due to heavy alcohol consumption per records Anxiety and depression DVT (deep venous thrombosis) 40+ years ago Hx of migraines Pacemaker Dual-chamber, implanted 2018 (high grade AVB/sinus node dysfunction), [employer], follows with Dr. Zarate > last checked in February 2023 GERD (gastroesophageal reflux disease) Hyponatremia Chronic issue- follows with nephrology Chronic pain syndrome Tobacco use disorder Paroxysmal atrial fibrillation Eliquis/pacer Surgical History Hx of oral surgery (09/17/22) Debridement Necrotic Bone and Soft Tissue and Associated Infected Periodontally Infected Teeth to Allow Mitral Valve Replacement (Lower Jaw)(Not Applicable) - Ha Champion, DMD Hx of vascular surgery 11/2019, with dr sethi, [facility], replaced 2 veins with bovine veins in Rt leg History of surgery (~11/03/21) Attempt for MitraClip ([facility]) was performed but unsuccessful (07/2021); currently being seen in [facility] for a trial for valve replacement History of esophagogastroduodenoscopy (EGD) History of cardiac cath (~04/24/21) 03/2021@ [facility] with Dr. Carbajal, no evidence of epicardial CAD S/P angiogram of extremity right lower leg S/P femoral-popliteal bypass surgery History of amputation REVISION OF AMPUTATION LLE History of colonoscopy History of tooth extraction History of appendectomy Family History Unknown No problems noted. Father Family history of diabetes mellitus Breast cancer Diabetes Hypertension Mother Hypertension Other No family history of adverse response to anesthesia Social History Smoking Status: Current every day smoker Tobacco Type: Cigarettes Cigarettes Per Day: 0.5; Second Hand Exposure: Yes; Do You Dip or Chew Tobacco: No; Hx Alcohol Use: No Hx Substance Use: No Preferred Language: Bur[place]ian Communication Ability: Effective Visual Impairment: No Limitations Professional Organizer Required: No Beliefs That Will Affect Care: None marital status: Current Living Situation: Spouse current occupational status: disabled current occupation: Retired How many Children do You have: 1 Feels Safe at Home: Yes Diet: regular during the past year weight has: decreased > 10 lbs Assistive Devices: Prosthesis, Walker, Wheelchair and Other Review of Systems Review of Systems: All systems reviewed & are unremarkable except as noted in HPI & below Physical Exam Constitutional: no acute distress Respiratory: normal respiratory effort; no respiratory distress and no labored breathing Musculoskeletal: Head/Neck/Chest: normocephalic Neurologic: awake Psychiatric: Orientation: alert and oriented x 3 Genitourinary: Torres with blood tinged urine Results & Data Vital Signs (Past 12 Hours) Vital Signs Temp Pulse Resp BP Pulse Ox O2 Del Method 11/16/24 07:15 Room Air 11/16/24 07:15 36.4 C L 66 14 129/77 96 Room Air PG Care Time/CCT Total # of Minutes Spent Total Time Spent with Patient: Total time spent is greater than 50% in coordination of care (as documented) at patient's floor/unit and/or counseling patient: Coding Level of Care Code 21639 IN/OBS CONSULT LVL 4,60M Diagnoses Hematuria R31.9
[2024-11-16] MEDS: HYDROmorphone INJ 0.5 MG/0.5 ML SYR IV PRN (20:04)
--- NOTE | 2024-11-16 22:52 | Hospitalist Progress Note ---
Date of Service November 16, 2024 Assessment & Plan (1) Abdominal wall cellulitis: (2) Cellulitis of groin, left: (3) Hyperkalemia: (4) Chronic hyponatremia: Plan The patient is a 64-year-old female with a past medical history including left BKA, status post right bypass several years ago, history abdominal wall cellulitis and left groin cellulitis, iron deficiency anemia, chronic respiratory failure, pancreatic cyst, periodontal disease, ANUG, Tatian, COPD, chronic pain syndrome, neuralgia, GERD, pression with anxiety, tension, history of CABG surgery as noted, dyslipidemia, PVD, history of ORIF ankle fracture. Patient presents to the emergency department with worsening left groin cellulitis and pain, she notes worsening after falling DKA earlier in the day today. She has been eating and drinking as per usual. Taking medications as directed. She has no generalized complaints sweats fevers or chills. She reports normal bowel and urinary function. Her is with her, does help her with ADLs at home. The patient was noted to have severe left groin erythema , induration and pain, was started on cefepime and nystatin powder, received Dilaudid 0.5 mg IV, normal saline 1 L bolus, morphine sulfate 4 mg IV and Zofran 4 mg IV, and and was then [facility] #Severe left groin/ abdominal wall cellulitis- Looks to be combination of bacterial and fungal Received cefepime 2 g IV from the ED Continue cefepime 2 g IV every 12 hours Add daptomycin 275 mg IV daily Add fluconazole 200 mg IV daily Will consult wound care -continues to be erythematous, tender to palpation. consulted infectious disease:appreciate input. Patient is unable to take Tylenol due to liver dysfunction history Cut oxycodone to 2.5 mg p.o. Q4h as needed. patient gets drowsy easily from narcotics stopped IV NARCOTICS. Patient is tolerating 2.5 mg of oxycodone Chart review. #lethargy Perhaps from polypharmacy. will hold IV narcotics, will hold amitryptyline and reassess tomorrow. #Left acute displaced femoral fracture: continue pain medicine. confirmed by xray today. consult ortho. Ascites/anasarca/hypoalbuminemia- Patient looks more to be on the dry side but then overload. Hyperkalemia- recheck at goal 4.8 Chronic Hyponatremia Follows up with nephrology outpatient Atrial fibrillation/hypertension-continue aspirin, Eliquis, metoprolol succinate Hold potassium chloride and bumetanide as noted above Chronic medical conditions: Chronic hyponatremia/SIADH history-Continue sodium chloride 1 g p.o. twice daily. Sodium 130 admission, serum osmolality 279 and urine osmolality pending.Serial laboratories Exocrine pancreatic insufficiency-Continue Creon GERD-continue pantoprazole Peripheral neuropathy-continue amitriptyline pregabalin full code DIscharge is difficult given that patient has a fracture on her left stump and is unable to bear weight on it. This normally helps patient with transfers. Discussed with case coordinator Admission and Anticipated Discharge Date Admission Date: November 11, 2024 Subjective 64 yo female reports her pain is not controlled. She is more awake today. Physical Exam Physical Exam: The patient is awake HEENT--PERRL, EOMI Neck--supple. No JVD. No bruits. Thyroid normal, trachea midline, no adenopathy. Heart--normal S1 and S2. No murmurs, rubs or gallops. Lungs--clear bilaterally, no respiratory distress, no accessory muscle use. Abdomen--normal bowel sounds and soft. Extremities--no cyanosis or clubbing. No edema. Groin: left, erythematous, with excoriations, warm, tender Results & Data Results & Data Vital Signs (Past 12 Hours) Vital Signs Temp Pulse Resp BP Pulse Ox O2 Del Method 11/16/24 21:47 Room Air 11/16/24 20:06 36.3 C L 73 16 127/82 97 Room Air 11/16/24 14:39 36.7 C 70 16 123/82 96 Room Air PG Care Time/CCT Total # of Minutes Spent Total Time Spent with Patient: Total time spent is greater than 50% in coordination of care (as documented) at patient's floor/unit and/or counseling patient: Coding Level of Care Code 66020 SUB INP/OBS CARE 3/50MIN Diagnoses Abdominal wall cellulitis L03.311 Cellulitis of groin, left L03.314 Hyperkalemia E87.5 Chronic hyponatremia E87.1
--- NOTE | 2024-11-17 10:19 | Orthopedic Progress Note ---
Date of Service November 17, 2024 Assessment & Plan (1) Fracture of distal end of left femur: Plan: The patient was evaluated in her room. Cast is in place on the left lower extremity. Nursing may apply ABD pads around the upper end of the cast as needed for comfort and to prevent skin breakdown. Also elevate left leg as needed for edema or comfort on pillows. Maintain nonweightbearing left lower extremity. PT and OT as tolerated Pain control and DVT prophylaxis as per primary service. She will have follow-up in approximately 2 weeks for repeat x-rays of the left in cast. Call with any problems, questions or concerns. Admission and Anticipated Discharge Date Admission Date: November 11, 2024 Subjective This 64-year-old female seen today for follow-up of a left distal femur fracture. She is very somnolent during her exam today. Her answers all of her questions for her. She does deny any pain in her stump area. Review of Systems Review of Systems: Unobtainable due to reduced consciousness Physical Exam Physical Exam: Left lower extremity: Plaster cast was clean dry and intact left in place. Patient was unable to lift the stump off her bed. She is alert and oriented x 1. Results & Data Vital Signs (Past 12 Hours) Vital Signs Temp Pulse Resp BP Pulse Ox O2 Del Method 11/17/24 07:00 36.5 C 65 14 130/82 97 Room Air Diagnostic Findings Laboratory Results WBC 6.33 K/ul (4.8-10.8) 11/16/24 05:41 RBC 2.82 M/uL (4.20-5.40) L 11/16/24 05:41 Hgb 8.7 g/dl (12.0-16.0) L 11/16/24 05:41 Hct 27.8 % (37.0-47.0) L 11/16/24 05:41 MCV 98.6 fL (80.0-100.0) 11/16/24 05:41 MCH 30.9 pg (25.0-34.0) 11/16/24 05:41 MCHC 31.3 g/dL (32.0-36.0) L 11/16/24 05:41 RDW Std Deviation 75.9 fL (36.4-46.3) H 11/16/24 05:41 RDW Coeff of Marlon 21.3 % (11.5-14.5) H 11/16/24 05:41 Plt Count 137 K/uL (130-400) 11/16/24 05:41 MPV 11.2 fL (9.4-12.4) 11/16/24 05:41 Immature Gran % (Auto) 0.6 % 11/14/24 05:35 Neut % (Auto) 65.2 % 11/14/24 05:35 Lymph % (Auto) 15.3 % 11/14/24 05:35 [place] % (Auto) 15.0 % 11/14/24 05:35 Eos % (Auto) 3.0 % 11/14/24 05:35 Baso % (Auto) 0.9 % 11/14/24 05:35 Neut # (Auto) 4.14 K/uL (1.40-6.50) 11/14/24 05:35 Lymph # (Auto) 0.97 K/uL (1.20-3.40) L 11/14/24 05:35 [place] # (Auto) 0.95 K/uL (0.11-0.59) H 11/14/24 05:35 Eos # (Auto) 0.19 K/uL (0.00-0.50) 11/14/24 05:35 Baso # (Auto) 0.06 K/uL (0.00-0.20) 11/14/24 05:35 Immature Gran # (Auto) 0.04 K/uL (0.01-0.20) 11/14/24 05:35 Hypersegmented Neuts 1+ 11/12/24 07:58 Polychromasia 1+ 11/14/24 05:35 Basophilic Stippling 1+ 11/11/24 05:57 Anisocytosis Present 11/14/24 05:35 Tear Drop Cells 1+ 11/14/24 05:35 Ovalocytes 1+ 11/11/24 05:57 Echinocytes 1+ 11/14/24 05:35 Acanthocytes (Spur) 1+ 11/14/24 05:35 PT 13.3 Seconds (9.0-12.0) H 11/10/24 21:28 INR 1.2 (0.9-1.1) H 11/10/24 21:28 APTT 38 Seconds (21-31) H 11/10/24 21:28 PTT Ratio 1.4 11/10/24 21:28 VBG pH 7.32 (7.36-7.41) L 11/14/24 18:39 VBG pCO2 34 mmHg (38-50) L 11/14/24 18:39 VBG pO2 61 mmHg 11/14/24 18:39 VBG HCO3 18 mmol/L 11/14/24 18:39 VBG O2 Saturation 90.9 % 11/14/24 18:39 VBG Base Excess -7.7 mEq/L 11/14/24 18:39 Sodium 134 mmol/L (136-145) L 11/16/24 05:41 Potassium 4.0 mmol/L (3.5-5.1) 11/16/24 05:41 Chloride 107 mmol/L (98-107) 11/16/24 05:41 Carbon Dioxide 22 mmol/L (21-32) 11/16/24 05:41 Anion Gap 5 (3-11) 11/16/24 05:41 BUN 9 mg/dl (6-23) 11/16/24 05:41 Creatinine 0.58 mg/dl (0.6-1.2) L 11/16/24 05:41 Est Cr Clr Drug Dosing 105.9 ml/min 11/16/24 05:41 eGFR 100.99 11/16/24 05:41 BUN/Creatinine Ratio 15.5 (10-20) 11/16/24 05:41 Glucose 75 mg/dl (70-99(Fasting)) 11/16/24 05:41 POC Glucose 92 mg/dl (70-99) 11/11/24 02:25 Osmolality 279 mOsm/kg (280-300) L 11/10/24 21:28 Lactate 1.4 mmol/L (0.4-2.0) 11/10/24 22:41 Calcium 8.6 mg/dl (8.6-10.3) 11/16/24 05:41 Phosphorus 2.8 mg/dl (2.5-4.9) 11/13/24 05:34 Magnesium 2.1 mg/dl (1.7-2.4) 11/14/24 05:35 Total Bilirubin 1.4 mg/dl (0.2-1.0) H 11/14/24 07:59 Direct Bilirubin 0.6 mg/dl (0-0.2) H 11/14/24 07:59 AST 22 U/L (13-39) 11/14/24 07:59 ALT 7 U/L (7-52) 11/14/24 07:59 Alkaline Phosphatase 166 U/L (34-104) H 11/14/24 07:59 Total Creatine Kinase 20 U/L (26-192) L 11/10/24 22:41 Troponin I High Sens 4.8 pg/ml (0-14) 11/10/24 22:41 C-Reactive Protein 2.77 mg/dl (0-0.5) H 11/15/24 05:52 Total Protein 6.3 gm/dl (6.0-8.3) 11/14/24 07:59 Albumin 3.0 gm/dl (3.4-5.0) L 11/14/24 07:59 Globulin 3.8 gm/dl (2.5-4.0) 11/10/24 21:28 Albumin/Globulin Ratio 1.0 (0.9-2) 11/10/24 21:28 Procalcitonin 0.33 ng/ml (0-0.5) 11/14/24 05:35 TSH 5.070 uIu/ml (0.300-4.500) H 11/10/24 22:41 Free T4 1.28 ng/dl (0.61-1.60) 11/10/24 22:41 Urine Color Red 11/15/24 Unknown Urine Appearance Cloudy (Clear) A 11/15/24 Unknown Urine pH 6.0 (4.5-7.5) 11/15/24 Unknown Ur Specific [place] >= 1.030 (1.000-1.030) 11/15/24 Unknown Urine Protein 3+ (Negative) H 11/15/24 Unknown Urine Glucose (UA) Negative (Negative) 11/15/24 Unknown Urine Ketones Negative (Negative) 11/15/24 Unknown Urine Blood 3+ (Negative) H 11/15/24 Unknown Urine Nitrite Negative (Negative) 11/15/24 Unknown Urine Bilirubin 1+ (Negative) H 11/15/24 Unknown Urine Urobilinogen Negative (Negative) 11/15/24 Unknown Ur Leukocyte Esterase Negative (Negative) 11/15/24 Unknown Urine WBC (Auto) 0-5 /hpf (0-5) 11/11/24 01:30 Urine RBC (Auto) 6-10 /hpf (0-2) H 11/11/24 01:30 U Hyaline Cast (Auto) 0-2 /lpf (0-2) 11/11/24 01:30 U Epithel Cells (Auto) 6-10 /hpf (0-2) H 11/11/24 01:30 Urine Bacteria (Auto) 2+ (None Seen) H 11/11/24 01:30 Urine RBC 11-20 /hpf (0-2) H 11/15/24 Unknown Urine WBC 6-10 /hpf (0-5) H 11/15/24 Unknown Ur Epithelial Cells 0-2 /hpf (0-2) 11/15/24 Unknown Urine Bacteria None Seen (None Seen) 11/15/24 Unknown Urine Osmolality 412 mOsm/kg (500-800) L 11/11/24 01:30 Nasal Screen MRSA (PCR) Positive (Negative) A 11/13/24 17:05 Impressions Chest X-Ray 11/10/24 21:05 Exam(s): XR CXR 1 VIEW EXAM: XR Chest, 1 View CLINICAL HISTORY: Reason for exam: Chest pain, nonspecific. TECHNIQUE: Frontal view of the chest. COMPARISON: 01/05/2024 FINDINGS: Lungs: Left basilar opacity, infiltrate versus atelectasis. Pulmonary vascular congestion. Pleural space: No pleural effusion. No pneumothorax. Heart: Cardiomegaly. Tubes, lines and devices: Pacemaker leads in place. IMPRESSION: 1. Left basilar opacity, infiltrate versus atelectasis. 2. Pulmonary vascular congestion. Electronically signed by: Tevin Zhou MD 11/10/24 23:18 PM Abdomen/Pelvis CT 11/10/24 21:40 Exam(s): CT ABDOMEN + PELVIS With Contrast IV Amt: 119 ml opti 320 EXAM: CT Abdomen and Pelvis With Intravenous Contrast CLINICAL HISTORY: Reason for exam: llq pain/infx. TECHNIQUE: Axial computed tomography images of the abdomen and pelvis with intravenous contrast. CTDI is 27.51 mGy and DLP is 1355.94 mGy-cm. Automated exposure control was utilized for the study. A dose lowering technique was utilized adhering to the principles of ALARA. CONTRAST: Patient received 119 ml opti 320 of IV contrast COMPARISON: 12/13/23 FINDINGS: Lung bases: Reported separately. ABDOMEN: Liver: Unremarkable. No mass. Gallbladder and bile ducts: Unremarkable. No calcified stones. No ductal dilation. Pancreas: Scattered calcifications in the pancreas suggesting change related to chronic pancreatitis. Presently, no evidence of acute pancreatitis. No ductal dilation. Spleen: Unremarkable. No splenomegaly. Adrenals: Unremarkable. No mass. Kidneys and ureters: Unremarkable. No solid mass. No hydronephrosis. Stomach and bowel: No bowel obstruction. Left hemicolon diverticulosis without evidence of acute diverticulitis. PELVIS: Appendix: Appendix not identified. No secondary signs of appendicitis. Bladder: Unremarkable. No mass. Reproductive: Uterus is small in size. ABDOMEN and PELVIS: Intraperitoneal space: Mild ascites. No free air. Bones/joints: Degenerative change in the lumbar spine. No acute fracture. No dislocation. Soft tissues: Anasarca. Vasculature: Atherosclerosis. Vascular stents suggested in the bilateral iliac and left femoral arteries. No abdominal aortic aneurysm. Lymph nodes: Unremarkable. No enlarged lymph nodes. IMPRESSION: 1. Mild ascites. 2. Anasarca. 3. Diverticulosis without diverticulitis. Electronically signed by: Chandrika Bennett M.D. 11/11/24 00:04 AM Chest CTA 11/10/24 21:40 Exam(s): CTA CHEST IV Amt: 119 ml opti 320 EXAM: CT Angiography Chest With Intravenous Contrast CLINICAL HISTORY: Reason for exam: PE. TECHNIQUE: Axial computed tomographic angiography images of the chest with intravenous contrast. CTDI is 28.14 mGy and DLP is 958.06 mGy-cm. Automated exposure control was utilized for the study. A dose lowering technique was utilized adhering to the principles of ALARA. MIP reconstructed images were created and reviewed. COMPARISON: 07/06/23 FINDINGS: Pulmonary arteries: Adequate pulmonary artery opacification. Normal caliber main pulmonary artery. No evidence of acute pulmonary embolism to the segmental level; more distal levels are obscured by respiratory motion. Aorta: Atherosclerosis of the aorta without aneurysm or dissection. Lungs: Calcified granuloma in the right lung. Left basilar airspace opacity. Pleural space: Small bilateral pleural effusions, left greater than right. No pneumothorax. Heart: Cardiomegaly with right ventricular enlargement and reflux of contrast into the hepatic veins consistent with elevated right heart pressure. Coronary artery atherosclerosis. No pericardial effusion. Bones/joints: Disc degeneration in the thoracic spine. No acute fracture or dislocation. Soft tissues: Anasarca, increased on the left side of the body. Lymph nodes: Unremarkable. No enlarged lymph nodes. Upper abdomen: Mild ascites. Other: Left chest wall dual-lead AICD-pacemaker with leads extending to the right atrium and right ventricle. IMPRESSION: 1. No evidence of acute pulmonary embolism to the segmental level; more distal levels are obscured by respiratory motion. 2. Cardiomegaly with right ventricular enlargement and reflux of contrast into the hepatic veins consistent with elevated right heart pressure. 3. Small bilateral pleural effusions, left greater than right. 4. Left basilar airspace opacity. Atelectasis is favored, but pneumonia cannot be excluded and clinical correlation is requested. 5. Mild ascites. 6. Anasarca, increased on the left side of the body. This may be related to prolonged left decubitus positioning. Electronically signed by: Chandrika Bennett M.D. 11/11/24 00:[address] 11/10/24 21:48 Exam(s): CT C SPINE EXAM: CT Cervical Spine Without Intravenous Contrast CLINICAL HISTORY: Reason for exam: fall, on DOAC. TECHNIQUE: Axial computed tomography images of the cervical spine without intravenous contrast. CTDI is 25.5 mGy and DLP is 564.45 mGy-cm. Automated exposure control was utilized for the study. A dose lowering technique was utilized adhering to the principles of ALARA. COMPARISON: 09/16/21 FINDINGS: Vertebrae: Unremarkable. No acute fracture. No traumatic subluxation. Discs/spinal canal/neural foramina: Multilevel disc degeneration. No significant central canal stenosis. Uncovertebral joint degeneration contributes to multilevel foraminal narrowing. Soft tissues: Unremarkable. IMPRESSION: No acute findings in the cervical spine. Electronically signed by: Chandrika Bennett M.D. 11/11/24 00:[address] 11/10/24 21:48 Exam(s): CT HEAD Without Contrast EXAM: CT Head Without Intravenous Contrast CLINICAL HISTORY: Reason for exam: fall, on DOAC. TECHNIQUE: Axial computed tomography images of the head/brain without intravenous contrast. CTDI is 38.24 mGy and DLP is 624.41 mGy-cm. Automated exposure control was utilized for the study. A dose lowering technique was utilized adhering to the principles of ALARA. COMPARISON: 04/25/23 FINDINGS: Brain: Generalized parenchymal volume loss. Mild chronic small vessel ischemic change. Ortega-white matter differentiation maintained. No hemorrhage, mass effect, parenchymal edema, or midline shift. Chronic lacunar infarcts bilateral thalami. Ventricles: No hydrocephalus. Bones/joints: No acute fracture. Soft tissues: Unremarkable. Vasculature: Intracranial atherosclerosis. Sinuses: No significant sinus disease, as visualized. Mastoid air cells: No significant mastoid effusion. IMPRESSION: No acute intracranial process. Electronically signed by: Chandrika Bennett M.D. 11/10/24 23:53 PM Knee X-Ray 11/15/24 08:00 EXAM: XR knee LT 1 or 2V routine CLINICAL HISTORY: S/p splinting femoral fracture. TECHNIQUE: X-ray images of the left knee were obtained in anteroposterior (AP) and lateral projections. COMPARISON: CR study dated 04/24/2018 was reviewed. FINDINGS: Bone Structure: suboptimal study due to cast. A displaced posteriorly angulated fracture of the left distal femur is seen. Below knee amputation. A vascular stent is seen at the posterior aspect of the distal thigh. Marked soft tissue swelling. Patella: Suspected patellar fracture. The patella is normal in position and alignment. No evidence of patellar dislocation or subluxation. IMPRESSION: 1. A displaced posteriorly angulated fracture of the left distal femur is seen. 2. Suspected patellar fracture 3. Below knee amputation. (Stable). Disclaimer: A subtle bone abnormality or fracture may not be readily apparent on X-rays, thus clinical correlation and further imaging including follow-up CT, MRI, or follow-up X-rays are advised as needed. Electronically signed by Richard Mane 11-15-2024 07:50 AM (1) Fracture of distal end of left femur Encounter type: initial encounter Fracture type: closed Fracture morphology: other fracture Qualified Code(s): S72.492A - Other fracture of lower end of left femur, initial encounter for closed fracture
[2024-11-17 10:26] LABS: Hematocrit (blood only) 30.3 % (37.0-47.0); Hemoglobin 9.4 g/dl (12.0-16.0); Mean Platelet Volume 11.4 fL (9.4-12.4); Platelet Count 133 K/uL (130-400); RDW Coefficient of Variation 21.7 % (11.5-14.5); Red Blood Count 3.03 M/uL (4.20-5.40); White Blood Count 6.17 K/ul (4.8-10.8)
[2024-11-17 10:36] LABS: C Reactive Protein 1.84 mg/dl (0-0.5); Calcium 8.6 mg/dl (8.6-10.3); Creatinine Clr Calc Pharmacy 107.8 ml/min; Potassium 4.1 mmol/L (3.5-5.1)
--- NOTE | 2024-11-17 18:41 | Hospitalist Progress Note ---
Date of Service November 17, 2024 Assessment & Plan (1) Abdominal wall cellulitis: (2) Cellulitis of groin, left: (3) Hyperkalemia: (4) Chronic hyponatremia: Plan The patient is a 64-year-old female with a past medical history including left BKA, status post right bypass several years ago, history abdominal wall cellulitis and left groin cellulitis, iron deficiency anemia, chronic respiratory failure, pancreatic cyst, periodontal disease, ANUG, Tatian, COPD, chronic pain syndrome, neuralgia, GERD, pression with anxiety, tension, history of CABG surgery as noted, dyslipidemia, PVD, history of ORIF ankle fracture. Patient presents to the emergency department with worsening left groin cellulitis and pain, she notes worsening after falling DKA earlier in the day today. She has been eating and drinking as per usual. Taking medications as directed. She has no generalized complaints sweats fevers or chills. She reports normal bowel and urinary function. Her is with her, does help her with ADLs at home. The patient was noted to have severe left groin erythema , induration and pain, was started on cefepime and nystatin powder, received Dilaudid 0.5 mg IV, normal saline 1 L bolus, morphine sulfate 4 mg IV and Zofran 4 mg IV, and and was then referred for evaluation for admission to the [facility]. #Severe left groin/ abdominal wall cellulitis- Looks to be combination of bacterial and fungal Received cefepime 2 g IV from the ED Continue cefepime 2 g IV every 12 hours Add daptomycin 275 mg IV daily Add fluconazole 200 mg IV daily Will consult wound care -continues to be erythematous, tender to palpation. consulted infectious disease:appreciate input. Patient is unable to take Tylenol due to liver dysfunction history Cut oxycodone to 2.5 mg p.o. Q4h as needed. patient gets drowsy easily from narcotics stopped IV NARCOTICS. Patient is tolerating 2.5 mg of oxycodone Chart review. added oxycodone 5 mg for severe pain, stopped IV dilaudid #lethargy Perhaps from polypharmacy. will hold IV narcotics, will hold amitryptyline. will also hold ambien and will monitor. #Left acute displaced femoral fracture: continue pain medicine. confirmed by xray today. consult ortho. Ascites/anasarca/hypoalbuminemia- Patient looks more to be on the dry side but then overload. Hyperkalemia- recheck at goal 4.8 Chronic Hyponatremia Follows up with nephrology outpatient Atrial fibrillation/hypertension-continue aspirin, Eliquis, metoprolol succinate Hold potassium chloride and bumetanide as noted above Chronic medical conditions: Chronic hyponatremia/SIADH history-Continue sodium chloride 1 g p.o. twice daily. Sodium 130 admission, serum osmolality 279 and urine osmolality pending.Serial laboratories Exocrine pancreatic insufficiency-Continue Creon GERD-continue pantoprazole Peripheral neuropathy-continue amitriptyline pregabalin full code DIscharge is difficult given that patient has a fracture on her left stump and is unable to bear weight on it. This normally helps patient with transfers. Discussed with mental health case manager Admission and Anticipated Discharge Date Admission Date: November 11, 2024 Subjective 64 yo female has been drowsy today. Physical Exam Physical Exam: The patient is awake HEENT--PERRL, EOMI Neck--supple. No JVD. No bruits. Thyroid normal, trachea midline, no adenopathy. Heart--normal S1 and S2. No murmurs, rubs or gallops. Lungs--clear bilaterally, no respiratory distress, no accessory muscle use. Abdomen--normal bowel sounds and soft. Extremities--no cyanosis or clubbing. No edema. Groin: left, erythematous, with excoriations, warm, tender Results & Data Results & Data Vital Signs (Past 12 Hours) Vital Signs Temp Pulse Resp BP Pulse Ox O2 Del Method 11/17/24 08:00 Room Air 11/17/24 07:00 36.5 C 65 14 130/82 97 Room Air PG Care Time/CCT Total # of Minutes Spent Total Time Spent with Patient: Total time spent is greater than 50% in coordination of care (as documented) at patient's floor/unit and/or counseling patient: Coding Level of Care Code 67208 SUB INP/OBS CARE 3/50MIN Diagnoses Abdominal wall cellulitis L03.311 Cellulitis of groin, left L03.314 Hyperkalemia E87.5 Chronic hyponatremia E87.1
[2024-11-17] MEDS: oxyCODONE HCL IR 5 MG TAB (IMMEDIATE RELEASE) PO PRN (20:23)
[2024-11-18] MEDS: ACETAMINOPHEN 500 MG TAB PO PRN (02:11)
[2024-11-18 06:08] LABS: Hemoglobin 9.1 g/dl (12.0-16.0); Mean Corpuscular Hemoglobin 30.8 pg (25.0-34.0); Mean Corpuscular Hgb Conc 31.4 g/dL (32.0-36.0); Mean Corpuscular Volume 98.3 fL (80.0-100.0); Mean Platelet Volume 11.2 fL (9.4-12.4); Platelet Count 131 K/uL (130-400); RDW Coefficient of Variation 21.8 % (11.5-14.5); Red Blood Count 2.95 M/uL (4.20-5.40); White Blood Count 6.01 K/ul (4.8-10.8)
[2024-11-18 06:16] LABS: BUN Creatinine Ratio 12.1 (10-20); Calcium 8.7 mg/dl (8.6-10.3); Creatinine Clr Calc Pharmacy 105.9 ml/min; Potassium 4.3 mmol/L (3.5-5.1)
--- NOTE | 2024-11-18 23:36 | Hospitalist Progress Note ---
Date of Service November 18, 2024 Assessment & Plan (1) Abdominal wall cellulitis: (2) Cellulitis of groin, left: (3) Hyperkalemia: (4) Chronic hyponatremia: Plan The patient is a 64-year-old female with a past medical history including left BKA, status post right bypass several years ago, history abdominal wall cellulitis and left groin cellulitis, iron deficiency anemia, chronic respiratory failure, pancreatic cyst, periodontal disease, ANUG, Tat[place], COPD, chronic pain syndrome, neuralgia, GERD, pression with anxiety, tension, history of CABG surgery as noted, dyslipidemia, PVD, history of ORIF ankle fracture. Patient presents to the emergency department with worsening left groin cellulitis and pain, she notes worsening after falling DKA earlier in the day today. She has been eating and drinking as per usual. Taking medications as directed. She has no generalized complaints sweats fevers or chills. She reports normal bowel and urinary function. Her is with her, does help her with ADLs at home. The patient was noted to have severe left groin erythema , induration and pain, was started on cefepime and nystatin powder, received Dilaudid 0.5 mg IV, normal saline 1 L bolus, morphine sulfate 4 mg IV and Zofran 4 mg IV, and and was then [facility]. #Severe left groin/ abdominal wall cellulitis- Looks to be combination of bacterial and fungal Received cefepime 2 g IV from the ED Continue cefepime 2 g IV every 12 hours Add daptomycin 275 mg IV daily Add fluconazole 200 mg IV daily Will consult wound care -continues to be erythematous, tender to palpation. consulted infectious disease:appreciate input. completed antibiotics. #lethargy Perhaps from polypharmacy. will hold IV narcotics, will hold amitryptyline. improved after holding ambien #Left acute displaced femoral fracture: continue pain medicine. confirmed by xray today. consult ortho. now in a cast. non weight bearing. Patient is unable to take Tylenol due to liver dysfunction history Cut oxycodone to 2.5 mg p.o. Q4h as needed. patient gets drowsy easily from narcotics stopped IV NARCOTICS. Patient is tolerating 2.5 mg of oxycodone Added 5 mg of oxycodone. Ascites/anasarca/hypoalbuminemia- Patient looks more to be on the dry side but then overload. Hyperkalemia- recheck at goal 4.8 Chronic Hyponatremia Follows up with nephrology outpatient Atrial fibrillation/hypertension-continue aspirin, Eliquis, metoprolol succinate Hold potassium chloride and bumetanide as noted above Chronic medical conditions: Chronic hyponatremia/SIADH history-Continue sodium chloride 1 g p.o. twice daily. Sodium 130 admission, serum osmolality 279 and urine osmolality pending.Serial laboratories Exocrine pancreatic insufficiency-Continue Creon GERD-continue pantoprazole Peripheral neuropathy-continue amitriptyline pregabalin full code DIscharge is difficult given that patient has a fracture on her left stump and is unable to bear weight on it. This normally helps patient with transfers. Discussed with director of casework department Admission and Anticipated Discharge Date Admission Date: November 11, 2024 Subjective 64 yo female reports she is not able to get out of bed. She mikel likely need to go to SNF> Discussed with who also agrees. Physical Exam Physical Exam: The patient is awake HEENT--PERRL, EOMI Neck--supple. No JVD. No bruits. Thyroid normal, trachea midline, no adenopathy. Heart--normal S1 and S2. No murmurs, rubs or gallops. Lungs--clear bilaterally, no respiratory distress, no accessory muscle use. Abdomen--normal bowel sounds and soft. Extremities--no cyanosis or clubbing. No edema. Groin: left, erythematous, with excoriations, warm, tender Results & Data Results & Data Vital Signs (Past 12 Hours) Vital Signs Temp Pulse Resp BP Pulse Ox O2 Del Method 11/18/24 20:11 36.3 C L 61 16 107/87 96 Room Air 11/18/24 14:35 36.6 C 64 18 128/82 99 Room Air PG Care Time/CCT Total # of Minutes Spent Total Time Spent with Patient: Total time spent is greater than 50% in coordination of care (as documented) at patient's floor/unit and/or counseling patient: Coding Level of Care Code 12089 SUB INP/OBS CARE 3/50MIN Diagnoses Abdominal wall cellulitis L03.311 Cellulitis of groin, left L03.314 Hyperkalemia E87.5 Chronic hyponatremia E87.1
[2024-11-19 06:17] LABS: Hematocrit (blood only) 30.8 % (37.0-47.0); Hemoglobin 9.7 g/dl (12.0-16.0); Mean Corpuscular Hemoglobin 31.1 pg (25.0-34.0); Mean Corpuscular Hgb Conc 31.5 g/dL (32.0-36.0); Mean Corpuscular Volume 98.7 fL (80.0-100.0); Mean Platelet Volume 11.7 fL (9.4-12.4); Platelet Count 145 K/uL (130-400); RDW Coefficient of Variation 21.4 % (11.5-14.5); RDW Standard Deviation 76.9 fL (36.4-46.3); Red Blood Count 3.12 M/uL (4.20-5.40); White Blood Count 5.34 K/ul (4.8-10.8)
[2024-11-19 06:18] LABS: Calcium 8.8 mg/dl (8.6-10.3); Creatinine Clr Calc Pharmacy 130.7 ml/min; Potassium 4.2 mmol/L (3.5-5.1)
[2024-11-19 19:14] VITALS: RESP 16
--- NOTE | 2024-11-19 22:41 | Hospitalist Progress Note ---
Date of Service November 19, 2024 Assessment & Plan (1) Abdominal wall cellulitis: (2) Cellulitis of groin, left: (3) Hyperkalemia: (4) Chronic hyponatremia: Plan The patient is a 64-year-old female with a past medical history including left BKA, status post right bypass several years ago, history abdominal wall cellulitis and left groin cellulitis, iron deficiency anemia, chronic respiratory failure, pancreatic cyst, periodontal disease, ANUG, Tatian, COPD, chronic pain syndrome, neuralgia, GERD, pression with anxiety, tension, history of CABG surgery as noted, dyslipidemia, PVD, history of ORIF ankle fracture. Patient presents to the emergency department with worsening left groin cellulitis and pain, she notes worsening after falling DKA earlier in the day today. She has been eating and drinking as per usual. Taking medications as directed. She has no generalized complaints sweats fevers or chills. She reports normal bowel and urinary function. Her is with her, does help her with ADLs at home. The patient was noted to have severe left groin erythema , induration and pain, was started on cefepime and nystatin powder, received Dilaudid 0.5 mg IV, normal saline 1 L bolus, morphine sulfate 4 mg IV and Zofran 4 mg IV, and and was then referred for evaluation for admission to the [facility]. #Severe left groin/ abdominal wall cellulitis- Looks to be combination of bacterial and fungal Received cefepime 2 g IV from the ED Continue cefepime 2 g IV every 12 hours Add daptomycin 275 mg IV daily Add fluconazole 200 mg IV daily Will consult wound care -continues to be erythematous, tender to palpation. consulted infectious disease:appreciate input. completed antibiotics course. #lethargy Perhaps from polypharmacy. will hold IV narcotics, will hold amitriptyline. improved after holding Ambien may consider resuming amitriptyline at a lower dose #Left acute displaced femoral fracture: continue pain medicine. confirmed by xray today. consult ortho. now in a cast. non weight bearing. Patient is unable to take Tylenol due to liver dysfunction history Cut oxycodone to 2.5 mg p.o. Q4h as needed. patient gets drowsy easily from narcotics stopped IV NARCOTICS. Patient is tolerating 2.5 mg of oxycodone Added 5 mg of oxycodone. Ascites/anasarca/hypoalbuminemia- Patient looks more to be on the dry side but then overload. Hyperkalemia- recheck at goal 4.2 Chronic Hyponatremia Follows up with nephrology outpatient Atrial fibrillation/hypertension-continue aspirin, Eliquis, metoprolol succinate Hold potassium chloride and bumetanide as noted above Chronic medical conditions: Chronic hyponatremia/SIADH history-Continue sodium chloride 1 g p.o. twice daily. Sodium 130 admission, serum osmolality 279 and urine osmolality pending.Serial laboratories Exocrine pancreatic insufficiency-Continue Creon GERD-continue pantoprazole Peripheral neuropathy-continue amitriptyline pregabalin full code DIscharge is difficult given that patient has a fracture on her left stump and is unable to bear weight on it. Patient needs to use stump to pivot while helps patient with transfers. Discussed with case management manager and patient interested in SNF: centre care will need to discuss with case management manager. Admission and Anticipated Discharge Date Admission Date: November 11, 2024 Subjective Patient reports no new symptoms. Physical Exam Physical Exam: The patient is awake HEENT--PERRL, EOMI Neck--supple. No JVD. No bruits. Thyroid normal, trachea midline, no adenopathy. Heart--normal S1 and S2. No murmurs, rubs or gallops. Lungs--clear bilaterally, no respiratory distress, no accessory muscle use. Abdomen--normal bowel sounds and soft. Extremities--no cyanosis or clubbing. No edema. Groin: left, decreased erythema. Results & Data Results & Data Vital Signs (Past 12 Hours) Vital Signs Temp Pulse Resp BP Pulse Ox O2 Del Method 11/19/24 19:11 36.4 C L 70 16 126/78 96 Room Air 11/19/24 14:37 36.7 C 63 18 126/79 95 Room Air PG Care Time/CCT Total # of Minutes Spent Total Time Spent with Patient: Total time spent is greater than 50% in coordination of care (as documented) at patient's floor/unit and/or counseling patient: Coding Level of Care Code 51822 SUB INP/OBS CARE 3/50MIN Diagnoses Abdominal wall cellulitis L03.311 Cellulitis of groin, left L03.314 Hyperkalemia E87.5 Chronic hyponatremia E87.1
[2024-11-20 06:43] LABS: Hematocrit (blood only) 30.8 % (37.0-47.0); Hemoglobin 9.5 g/dl (12.0-16.0); Mean Corpuscular Hemoglobin 30.1 pg (25.0-34.0); Mean Corpuscular Hgb Conc 30.8 g/dL (32.0-36.0); Mean Corpuscular Volume 97.5 fL (80.0-100.0); Mean Platelet Volume 11.8 fL (9.4-12.4); Platelet Count 150 K/uL (130-400); RDW Coefficient of Variation 21.5 % (11.5-14.5); RDW Standard Deviation 76.5 fL (36.4-46.3); Red Blood Count 3.16 M/uL (4.20-5.40); White Blood Count 4.97 K/ul (4.8-10.8)
[2024-11-20 07:15] LABS: BUN Creatinine Ratio 12.7 (10-20); Calcium 8.7 mg/dl (8.6-10.3); Creatinine Clr Calc Pharmacy 111.7 ml/min; Potassium 4.1 mmol/L (3.5-5.1)
[2024-11-20 07:29] VITALS: PULSE 66
[2024-11-20 15:25] VITALS: BP 100/71; TEMP 97.7; O2SAT 95
--- NOTE | 2024-11-20 15:57 | Discharge Summary ---
Discharge Summary Date of Service November 20, 2024 Principal Dx & Hospital Course #1 = Principal Diagnosis (1) Abdominal wall cellulitis: (2) Cellulitis of groin, left: (3) Fracture of distal end of left femur: (4) Hematuria: Plan The patient is a 64-year-old female with a past medical history including left BKA, status post right bypass several years ago, history abdominal wall cellulitis and left groin cellulitis, iron deficiency anemia, chronic respiratory failure, pancreatic cyst, periodontal disease, ANUG, Tatian, COPD, chronic pain syndrome, neuralgia, GERD, pression with anxiety, tension, history of CABG surgery as noted, dyslipidemia, PVD, history of ORIF ankle fracture. Patient presents to the emergency department with worsening left groin cellulitis and pain, she notes worsening after falling DKA earlier in the day today. She has been eating and drinking as per usual. Taking medications as directed. She has no generalized complaints sweats fevers or chills. She reports normal bowel and urinary function. Her is with her, does help her with ADLs at home. The patient was noted to have severe left groin erythema, induration and pain, was started on cefepime and nystatin powder, received Dilaudid 0.5 mg IV, normal saline 1 L bolus, morphine sulfate 4 mg IV and Zofran 4 mg IV, and and [facility]. #Severe left groin/ abdominal wall cellulitis-Looks to be combination of bacterial and fungal. Received IV cefepime x 3 days, IV daptomycin x 7 days, antibiotic therapy completed. Also received fluconazole x 3 days and now on ketoconazole as per ID recommendations to finish out a 2-week course Overall appears completely resolved, much improved. #lethargy-Perhaps from polypharmacy. Home amitriptyline, Ambien, IV narcotics were held and she improved. She has been on this dose of amitriptyline and Ambien for quite some time and can resume these on discharge. She is also on chronic oxycodone at home which she can continue #Hematuria-resolved, seen by urology and recommend CT urogram and cystoscopy as an outpatient. Urology follow-up appointment is made #Left acute displaced femoral fracture: From a fall. Cast placed by orthopedics and needs to follow-up in 2 weeks Continue pain control with home oxycodone #Ascites/anasarca/hypoalbuminemia-likely from chronic heart failure. She is not on diuretics and in fact is on salt tablets as an outpatient -Seems to be around her baseline and is not short of breath -Resume home Bumex, potassium on discharge #Hyperkalemia-resolved #Chronic Hyponatremia-Follows up with nephrology outpatient, sodium normal on the day of discharge #Atrial fibrillation/hypertension-blood pressures and heart rates are controlled -Continue aspirin, Eliquis, metoprolol succinate -Resume Bumex on discharge #Exocrine pancreatic insufficiency-Continue Creon #GERD-continue pantoprazole #Peripheral neuropathy-continue amitriptyline, pregabalin DVT prophylaxis-Eliquis Disposition-stable for discharge to home with home health-she worked with PT on the day of discharge and is able to do transfers Notes For Next Care Provider Follow-up with orthopedics in 2 weeks Medication Changes From Visit None Admission HPI Per Admitting Provider The patient is a 64-year-old female with a past medical history including left BKA, status post right bypass several years ago, history abdominal wall cellulitis and left groin cellulitis, iron deficiency anemia, chronic respiratory failure, pancreatic cyst, periodontal disease, ANUG, Tatian, COPD, chronic pain syndrome, neuralgia, GERD, pression with anxiety, tension, history of CABG surgery as noted, dyslipidemia, PVD, history of ORIF ankle fracture. Patient presents to the emergency department with worsening left groin cellulitis and pain, she notes worsening after falling DKA earlier in the day today. She has been eating and drinking as per usual. Taking medications as directed. She has no generalized complaints sweats fevers or chills. She reports normal bowel and urinary function. Her is with her, does help her with ADLs at home. The patient was noted to have severe left groin erythema, induration and pain, was started on cefepime and nystatin powder, received Dilaudid 0.5 mg IV, normal saline 1 L bolus, morphine sulfate 4 mg IV and Zofran 4 mg IV, and and was then [facility] Exam Constitutional WD/WN, vitals as above + obese Respiratory normal respiratory effort, lungs clear to auscultation Cardiovascular Rate/Rhythm: regular rate and regular rhythm Extremities: + edema (1+ pitting edema to thighs bilaterally) Gastrointestinal (Abdomen) Obese abdomen, no erythema in lower abdomen Musculoskeletal Extremities: + extremities abnormal to inspection (Left BKA with well-healed stump) Skin No erythema in left groin and under pannus Psychiatric A+Ox3, euthymic affect Discharge Plan Discharge Items Patient Disposition: Home - Home Health Services Reason For Visit: LEFT GROIN CELLULITIS Discharge Diagnosis: Left groin cellulitis and fungal infection Left distal femur fracture Status post below knee amputation left lower extremity Hematuria Condition on Discharge: Fair Activity: Per Instructions section Non-emergency contact: Primary Care Provider, Surgeon and Urologist Call non-emergency contact if: you have any medication questions, your symptoms worsen and your pain is not controlled Follow-up/Referrals: Chad Capps DO [Physician] - 12/19/24 2:15 pm Kat Morataya MD [Primary Care Provider] - (Follow-up within 1 to 2 weeks) Mustapha Benton PA [Physician Certified Nurse Midwife] - 11/29/24 3:30 pm Diet: Heart Healthy Addtl Attending Provider Instructions: Please finish out 10 more days of the ketoconazole fungal cream to the left groin area once daily. You have completed all of the IV antibiotics. You had blood in your urine here and were seen by urology. Please follow-up with them as scheduled to find out the cause of the blood in your urine. [employer] Provider Instructions: Orthopedic instructions: -Nonweightbearing left lower extremity at all times. -Keep cast on at all times. Keep it clean and dry. -Elevate left lower extremity as needed for pain or swelling. -Pad cast edges with gauze pads or ABD pads as needed to prevent pressure around the skin of her thigh from the cast due to swelling and cellulitis. -May be out of bed to chair. -Follow-up with [facility] orthopedics as scheduled in approximately 2 weeks. Call [phone] with any increased pain, swelling, issues with the cast questions or concerns. Pending Studies at Discharge: No Stand-Alone Forms: [employer], Smoking Cessation Medications and DC Order Prescriptions: New ketoconazole 2 % Cream 1 applic EXT DAILY Qty: 30 0RF Rx Instructions: Apply to left groin Continued potassium chloride 20 mEq tablet extended release 40 meq PO BID Qty: 120 4RF pantoprazole [Protonix] 40 mg tablet,delayed release (DR/EC) 40 mg PO QAM Qty: 120 3RF bumetanide 2 mg tablet 2 mg PO BID Qty: 180 3RF sodium chloride 1,000 mg tablet,soluble 1,000 mg PO BID Qty: 180 3RF atorvastatin [Lipitor] 80 mg tablet 80 mg PO HS aspirin [Tj Low Dose Aspirin] 81 mg Tablet,Delayed Release (Dr/Ec) 81 mg PO QAM Hold Instructions: Resume on 11/17/23. amitriptyline 50 mg Tablet 50 mg PO HS sennosides-docusate sodium [Senokot-S] 8.6-50 mg Tablet 2 tab PO QAM PRN (Reason: constipation) Qty: 60 0RF Rx Instructions: OTC metoprolol succinate 25 mg tablet extended release 24 hr 25 mg PO BID oxycodone 5 mg capsule 5 mg PO TID PRN (Reason: moderate-severe pain) Rx Instructions: not able to verify through surescripts...pt says she does take this med Eliquis 5 mg Tablet 5 mg PO BID alendronate 70 mg tablet 70 mg PO WK Rx Instructions: saturdays Creon 3,000-9,500- 15,000 unit capsule,delayed release(DR/EC) 1 cap PO UD Rx Instructions: each meal and snack zolpidem [Ambien] 10 mg Tablet 10 mg PO HS pregabalin 300 mg capsule 300 mg PO QAM Discharge Orders: Discharge Order (Routine); Ordered 11/20/24 Ordered By: Ирина Hughes Admission Data Admit Date/Time: 11/11/24 01:20 Attending Provider: Ирина Hughes Admit Provider: Vince Adams Primary Care Provider: Kat Morataya Other Providers: Vince Adams; Rory Mendiola; Joshua Felix; Gm Hanna; Vita Almonte; Gemma Muñoz; Enrique Gan; Brenton Reardon; Titus Watkins; Titus Agudelo; Jacinta Metzger; Orestes Patel; Cherri Delgadillo; Mustapha Benton; Danielle Faust; Дмитрий Sim; Wayne Dietz; Boone Duenas; Aidan Bermudez; Pari Cuellar; Chad Capps; Desi Garcia; Neelam Taylor; Eddie Gallegos; Jenny Brush.; Smooth Harris; Nazanin Concepcion; Edumnd Dumas.; [facility]; [facility],; [facility] Stay Data Consultations 11/11/24 00:20 ED Decision to Admit Stat 11/13/24 16:05 Consult Infectious Diseases Routine 11/14/24 17:12 Consult Orthopedic Surgery Routine 11/16/24 07:30 Consult Urology Routine Diagnostic Imagining Performed 11/10/24 21:40 CT Abd and Pelvis [CT abd pelvis IV con only] Stat CT angio chest PE protocol Stat 11/10/24 21:48 CT cervical spine wo con Stat CT head/brain wo con Stat Pending Results Patient Have Any Pending Studies at Discharge: No Discharge Instructions Given to Patient (Per Discharging Provider) Please finish out 10 more days of the ketoconazole fungal cream to the left groin area once daily. You have completed all of the IV antibiotics. You had blood in your urine here and were seen by urology. Please follow-up with them as scheduled to find out the cause of the blood in your urine. Total Time Total Time Spent Total Time Spent (In Minutes): 35 minutes Total Time Includes: Examination of the Patient, Discharge Planning and Medication Reconciliation Coding Level of Care Code 99424 INP/OBS DISCH >30 MIN Diagnoses Abdominal wall cellulitis L03.311 Cellulitis of groin, left L03.314 Other closed fracture of distal end of left femur, initial encounter S72.492A Encounter type: initial encounter Fracture type: closed Fracture morphology: other fracture Hematuria R31.9
== END 2024-11-20 18:20 | disposition home health service (06) | DRG 603 ==
LOC: ED 20:58 → EDINP 11-11 01:20 → SUATTDRO 11-11 01:20 → 3E 11-11 05:27

== ENCOUNTER 2025-08-01 08:38 | Inpatient (IN) ==
--- NOTE | 2025-07-26 08:53 | Anesthesiology Consultation ---
Date of Service July 26, 2025 Assessment & Plan (1) Encounter for pre-operative examination: Plan - will request most recent pacemaker report from Dr. Perez if available; if not, patient can proceed given cardiology clearance. - awaiting surgeon ordered CBC with diff, BMP, coags, type and screen and CXR. - Medtronic pacemaker. Rep needed-OR notified. - cardiology clearance 07/17/25 PSH: "...recurrent syncopal episodes secondary to high degree AV block status post Medtronic dual chamber pacemaker 07/2019...echocardiogram 07/2023...difficulty characterizing mitral regurgitation but has been severe in the past, moderate tricuspid regurgitation...cardiac catheterization 04/15/21 without evidence of epicardial coronary artery disease and elevated LV diastolic pressure...mild pulmonary hypertension...s/p attempted MitraClip x 2 with little improvement in her mitral regurgitation and therefore, the procedure was aborted (07/2021) [place] [facility] ab[place] [facility]...chronic atrial fibrillation on Xarelto...chronic diastolic heart failure. Chronic hyponatremia. 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 colitis...reviewed with Dr. Maya and Nimo in the office...severe right carotid stenosis...able to push her wheelchair from 1 room to the next...without any chest tightness or chest pressure...unfortunately continues to smoke...as she needs to have the surgery done, I believe she can proceed and her cardiac risk is at least 5% and this includes heart attack, dying from cardiac causes and heart failure...would put a magnet over her device during the procedure such that she will pace V00..." - Case discussed in detail with Dr. Pacheco who advised given indication of procedure, patient can proceed with surgery in general, including prior to further imaging of adrenal gland. - Per composition stone applicator 07/25/25: No known infectious disease contacts, current infectious disease symptoms in past 10 days or COVID positive test result in the past 30 days. Chart Review Chart Review: Patient NOT seen in Pre Admission Testing History Surgery Operation Date: 08/01/25 08:00 Proposed Procedures p Right Transcarotid Artery Revascularization - Payam Maya MD Height/Weight Height: 5 ft 3 in Weight: 74.843 kg Allergies Allergy/AdvReac Type Severity Reaction Status Date / Time adhesive Allergy Severe SEVERE Verified 07/25/25 08:06 SKIN IRRITATION guanfacine Allergy Intermediate BP PROBLEMS Verified 07/25/25 08:06 nifedipine Allergy Intermediate BP PROBLEMS Verified 07/25/25 08:06 latex Allergy Mild Rash Verified 07/25/25 08:47 amoxicillin AdvReac Severe LIVER Verified 07/25/25 08:06 FAILURE clavulanic acid AdvReac Severe LIVER Verified 07/25/25 08:06 FAILURE Medications Home Medications Medication Instructions Recorded Confirmed Last Taken aspirin 81 mg tablet,delayed 81 mg PO QAM 12/19/19 07/25/25 11/10/24 release (Tj Low Dose Aspirin) amitriptyline 50 mg tablet 50 mg PO HS 09/11/22 07/25/25 11/09/24 sennosides 8.6 mg-docusate sodium 2 tab PO QAM PRN constipation #60 04/18/23 07/25/25 Unknown 50 mg tablet (Senokot-S) tabs metoprolol succinate 25 mg 25 mg PO BID 04/25/23 07/25/25 11/10/24 tablet,extended release 24 hr am dose oxycodone 5 mg capsule 10 mg PO Q6H PRN moderate-severe 11/04/23 07/25/25 Unknown pain apixaban 5 mg tablet (Eliquis) 5 mg PO BID 12/31/23 07/25/25 11/10/24 am dose myytla-ejadfrkm-yebnzjz (pork) 1 cap PO UD 01/05/24 07/25/25 11/10/24 3,000-9,500-15,000 unit capsule,del rel (Creon) zolpidem 10 mg tablet (Ambien) 10 mg PO HS 01/05/24 07/25/25 11/09/24 pantoprazole 40 mg tablet,delayed 40 mg PO QAM #120 tabs 08/21/24 07/25/25 11/10/24 release (Protonix) sodium chloride 1,000 mg soluble 1,000 mg PO BID #180 tabs 09/04/24 07/25/25 11/10/24 tablet pregabalin 300 mg capsule 300 mg PO QAM 11/11/24 07/25/25 11/10/24 bumetanide 2 mg tablet 2 mg PO QAM 02/28/25 07/25/25 Unknown potassium chloride 20 mEq 40 meq (2 x 20 mEq) PO DAILY #180 02/28/25 07/25/25 Unknown tablet,extended release tabs clopidogrel 75 mg tablet (Plavix) 75 mg PO DAILY 07/25/25 07/25/25 Unknown Past Medical History Medical History (Updated 07/26/25 @ 09:03 by Raquel Gunter PA-C) (HFpEF) heart failure with preserved ejection fraction Acute blood loss anemia hx Acute GI bleeding Oct 2023, hospitalized at [facility] > due to this, patient switched from Xarelto to Eliquis > no further bleeding issues Acute pancreatitis hx Anasarca Anxiety and depression AV block with subsequent syncope - s/p dual chamber pacemaker (Medtronic) - 2019 per cardio records Chronic pain syndrome COPD (chronic obstructive pulmonary disease) per chart, pt denies, states she does not see a pulm TRISTAN (dyspnea on exertion) "only if i have fluid build up"- pt. does not ambulate due to needing new prosthesis Dyslipidemia GERD (gastroesophageal reflux disease) History of anesthesia reaction woke up in middle of an EGD once at [facility] History of cellulitis (10/2024) left groin/ abdomen- resolved History of colitis History of COVID-19 (08/2021) 08/2021- pcr test [place], not hosp; no symptoms, was in the ER for another issue- pt. states "I never had covid" HTN (hypertension) Hx MRSA infection (12/2024) per chart, pos mrsa nasal swab 10/2024; pos wound swab 12/2024 Hx of deep venous thrombosis per chart 40 years ago, pt. states does not remember Hx of fracture of femur (10/2024) left femur, due to a fall- states no surgery Hx of gastric ulcer Hx of migraines Hx of pancreatitis Chronic. Due to heavy alcohol consumption per records Hyponatremia Chronic issue- follows with nephrology - pt. denies seeing banking paralegal currently Metabolic alkalosis Neuropathy Pacemaker Dual-chamber, implanted 2018 (high grade AVB/sinus node dysfunction), Medtronic, follows with Dr. Perez > last checked in last week Pancreas cyst Paroxysmal atrial fibrillation Eliquis/pacer - believes she may have had a cardioversion in [place] Poor intravenous access PVD (peripheral vascular disease) Severe mitral regurgitation Per patient, attempt for MitraClip ([facility]) was performed but unsuccessful (07/2021) (little improvement of regurgitation with MitraClip x2- procedure aborted Splenic infarct pt unaware Stump neuralgia Tobacco use disorder Past Family History Family History Unknown No problems noted. Father Family history of diabetes mellitus Breast cancer Diabetes Hypertension Mother Hypertension Other No family history of adverse response to anesthesia Past Surgical History Surgical History (Updated 07/26/25 @ 09:03 by Raquel Gunter PA-C) History of amputation (2016) [facility] - [facility]- had fractured ankle, had metal placed, then had allergy to metal and required amputation History of appendectomy History of cardiac cath (~04/24/21) 03/2021@ [facility] with Dr. Carbajal, no evidence of epicardial CAD - no stents- follows with dr. perez History of colonoscopy History of esophagogastroduodenoscopy (EGD) History of surgery (~07/30/21) Attempt for MitraClip ([facility]) was performed but unsuccessful (07/2021); currently being seen in [facility] for a trial for valve replacement History of tooth extraction Hx of oral surgery (09/17/22) Debridement Necrotic Bone and Soft Tissue and Associated Infected Periodontally Infected Teeth to Allow Mitral Valve Replacement (Lower Jaw)(Not Applicable) - Ha Champion, DMD Hx of vascular surgery 11/2019, with dr maya, [facility], replaced 2 veins with bovine veins in Rt leg Bilateral femoral endarterectomy with iliac stent (2016) S/P angiogram of extremity right lower leg S/P femoral-popliteal bypass surgery Status post ORIF of fracture of ankle (2016) left ankle, had hardware in place, states had allergic reaction and later required amputation Social History Smoking Status: Current every day smoker tobacco type: cigarettes Smoking cigarettes per day: 1/2 ppd (advised) Do You Dip or Chew Tobacco: No Hx Alcohol Use: Yes Alcohol type: beer alcohol intake frequency: 3 or more drinks per day Alcohol Intake Frequency Comment: 3-4 beers per day Hx Substance Use: No substance use type: does not use Substance Use Type Other:: Patient has medical marijuana card. Last Used Substance: Unknown Testing Electrocardiogram Date: 11/27/24 Afib with a demand pacemaker, rate 63 bpm Echocardiogram Date: 07/08/23 EF 55-60% No regional wall motion abnormalities At least moderate mitral regurgitation, difficult to characterize Moderate tricuspid regurgitation Cervical Spine Date: 11/27/24 No fracture or malalignment. Other Testing Neck CTA 07/06/25 1. Moderate to marked patchy atherosclerotic changes in the imaged vessels. Mild narrowing of approx. 30-40% of all three major branches of aortic arch at their origin. 2. Right common carotid artery showing moderate luminal narrowing of approx. 50- 60% at the bifurcation. 3. Right internal carotid artery showing mild luminal narrowing of approx. 30% of the distal cervical segment. 4. Patchy moderate to marked atherosclerotic changes in the left common carotid artery throughout its course with multifocal luminal narrowing, most pronounced in its distal segment, approx. 60-70%. 5. Left internal carotid artery showing significant luminal narrowing of approx. 60-70% at its origin. Doppler evaluation of carotid vessels suggested. 6. Incidental note of superior mediastinal and right hilar adenopathy with suspicious right lung apical soft tissue nodules/mass. Dedicated CECT chest correlation is suggested for proper evaluation. Chest CT 11/27/24 1. No evidence for a acute traumatic abnormality in the chest, abdomen or pelvis. 2. Findings of volume overload, including small pleural effusions, mild ascites, and anasarca. 3. Nodular thickening of the left adrenal gland, favors adenomatous change. Recommend follow-up nonemergent MRI adrenal gland protocol. 4. Findings of chronic pancreatitis. No evidence for definite acute inflammatory change.
[~2025-08-01 08:38] MED LIST changes: -CLINDAMYCIN 600 MG/54 ML BAG IV SCH; +GLYCOPYRROLATE 0.2 MG/ML VIAL ONE; +HEPARIN SOD (PORCINE) 1000 UNIT/ML ONE; -LACTATED RINGER'S 1,000 ML IV SCH; +LARYING-O-JET KIT (LTA) ONE; +LIDOCAINE 2% 2 ML VIAL/AMP(20MG/ML) INFIL ONE; +ONDANSETRON INJ 2 MG/ML 2 ML VIAL ONE; +PROPOFOL IV EMULSION 10 MG/ML 20 ML VIAL IV ONE; +ROCURONIUM BROMIDE 10 MG/ML 5 ML VIAL IV ONE; -SODIUM CHLORIDE 0.9% 250 ML IV PRN
[2025-08-01 09:14] LABS: Anion Gap 7.0 (3-11); Blood Urea Nitrogen 15.0 mg/dl (6-23); Calcium 9.1 mg/dl (8.6-10.3); Carbon Dioxide 26.0 mmol/L (21-32); Chloride 99.0 mmol/L (98-107); Creatinine Clr Calc Pharmacy 64.7 ml/min; Glucose 93.0 mg/dl (70-99(Fasting)); Potassium 3.7 mmol/L (3.5-5.1); Sodium 132.0 mmol/L (136-145)
[2025-08-01] MEDS ORDERED: PROMETHAZINE HCL 6.25 MG in SODIUM CHLORIDE 0.9% 50 ML IV PRN (09:19)
[2025-08-01] MEDS ORDERED: ONDANSETRON INJ 2 MG/ML 2 ML VIAL IV PRN (09:19)
[2025-08-01] MEDS ORDERED: ATROPINE SULFATE 0.1 MG/ML 10ML SYR IV PRN (09:19)
--- NOTE | 2025-08-01 09:43 | History & Physical Report ---
Date of Service August 01, 2025 Assessment & Plan (1) Stenosis of right internal carotid artery: Plan: Patient is for a right tcar. I have discussed the risks options and benefits of the procedure with the patient. The patient understands the risks options and benefits and agrees to the procedure. History of Present Illness Chief Complaint: Right internal carotid artery stenosis Primary Care Provider: Kat Morataya MD Ms. Garcia is a middle-aged female who presents to vascular surgery clinic for a follow-up appointment after undergoing a CTA of the neck and, after a carotid ultrasound performed few months ago had indicated a possible severe stenosis of her right ICA. Patient continues to deny any new symptoms of cerebrovascular insufficiency including amaurosis, unilateral extremity weakness numbness tingling, difficulty speaking or swallowing, facial droop, sudden onset confusion. As you may remember, patient is status post left leg below-knee amputation due to ischemia of the left leg. She has undergone multiple revascularization procedures in the right leg. Allergies Allergy/AdvReac Type Severity Reaction Status Date / Time adhesive Allergy Severe SEVERE Verified 08/01/25 08:57 SKIN IRRITATION guanfacine Allergy Intermediate BP PROBLEMS Verified 08/01/25 08:57 nifedipine Allergy Intermediate BP PROBLEMS Verified 08/01/25 08:57 latex Allergy Mild Rash Verified 08/01/25 08:57 amoxicillin AdvReac Severe LIVER Verified 08/01/25 08:57 FAILURE clavulanic acid AdvReac Severe LIVER Verified 08/01/25 08:57 FAILURE Home Medications Medication Instructions Recorded Confirmed Type aspirin 81 mg tablet,delayed 81 mg PO QAM 12/19/19 08/01/25 History release (Tj Low Dose Aspirin) amitriptyline 50 mg tablet 50 mg PO HS 09/11/22 08/01/25 History sennosides 8.6 mg-docusate sodium 2 tab PO QAM PRN constipation #60 04/18/23 08/01/25 Rx 50 mg tablet (Senokot-S) tabs metoprolol succinate 25 mg 25 mg PO BID 04/25/23 08/01/25 History tablet,extended release 24 hr oxycodone 5 mg capsule 10 mg PO Q6H PRN moderate-severe 11/04/23 08/01/25 History pain apixaban 5 mg tablet (Eliquis) 5 mg PO BID 12/31/23 08/01/25 History kxsqtf-kvmdlrku-djbsovz (pork) 1 cap PO UD 01/05/24 08/01/25 History 3,000-9,500-15,000 unit capsule,del rel (Creon) zolpidem 10 mg tablet (Ambien) 10 mg PO HS 01/05/24 08/01/25 History pantoprazole 40 mg tablet,delayed 40 mg PO QAM #120 tabs 08/21/24 08/01/25 Rx release (Protonix) sodium chloride 1,000 mg soluble 1,000 mg PO BID #180 tabs 09/04/24 08/01/25 Rx tablet pregabalin 300 mg capsule 300 mg PO QAM 11/11/24 08/01/25 History bumetanide 2 mg tablet 2 mg PO QAM 02/28/25 08/01/25 History potassium chloride 20 mEq 40 meq (2 x 20 mEq) PO DAILY #180 02/28/25 08/01/25 Rx tablet,extended release tabs clopidogrel 75 mg tablet (Plavix) 75 mg PO DAILY 07/25/25 08/01/25 History Past Med/Surg History Problem List (Updated 08/01/25 @ 09:43 by Payam Maya MD) Stenosis of right internal carotid artery Hematuria Anasarca (Acute) Ischemia of right lower extremity Poor intravenous access Colitis (Acute) Metabolic acidosis Iron deficiency anemia Elevated lactic acid level (Acute) Leukocytosis (Acute) Shortness of breath (Acute) Anemia (Acute) Chronic hyponatremia (Acute) Pancreatic cyst Mandibular bony exostosis Carious teeth Periodontal disease Hyponatremia (HFpEF) heart failure with preserved ejection fraction Secondary to severe mitral regurgitation Encounter for pre-operative examination intermodal customer service (current) use of anticoagulants (Acute) Chronic atrial fibrillation (Acute) On Eliquis Follows with Dr. Perez ([facility]) Mitral regurgitation COPD (chronic obstructive pulmonary disease) (Acute) Chronic pain syndrome Pacemaker (Acute) Smoker (Acute) HTN (hypertension) Atherosclerosis of artery of extremity with rest pain Stump neuralgia GERD (gastroesophageal reflux disease) Dyslipidemia Depression Anxiety PVD (peripheral vascular disease) S/p left BKA Medical History Hx MRSA infection (12/2024) per chart, pos mrsa nasal swab 10/2024; pos wound swab 12/2024 Stump neuralgia PVD (peripheral vascular disease) Poor intravenous access HTN (hypertension) Dyslipidemia History of colitis Anasarca (HFpEF) heart failure with preserved ejection fraction COPD (chronic obstructive pulmonary disease) per chart, pt denies, states she does not see a pulm Hx of deep venous thrombosis per chart 40 years ago, pt. states does not remember History of cellulitis (10/2024) left groin/ abdomen- resolved Hx of fracture of femur (10/2024) left femur, due to a fall- states no surgery Acute blood loss anemia hx History of anesthesia reaction woke [place] [facility] [place] GI bleeding Oct 2023, hospitalized at [facility] > due to this, patient switched from Xarelto to Eliquis > no further bleeding issues Splenic infarct pt unaware Acute pancreatitis hx Pancreas cyst AV block with subsequent syncope - s/p dual chamber pacemaker (Medtronic) - 2019 per cardio records History of COVID-19 (08/2021) 08/2021- pcr test [place], not hosp; no symptoms, was in the ER for another issue- pt. states "I never had covid" Metabolic alkalosis TRISTAN (dyspnea on exertion) "only if i have fluid build up"- pt. does not ambulate due to needing new prosthesis Severe mitral regurgitation Per patient, attempt for MitraClip [place] was performed but unsuccessful (07/2021) (little improvement of regurgitation with MitraClip x2- procedure aborted Hx of gastric ulcer Neuropathy Hx of pancreatitis Chronic. Due to heavy alcohol consumption per records Anxiety and depression Hx of migraines Pacemaker Dual-chamber, implanted 2018 (high grade AVB/sinus node dysfunction), Medtronic, follows with Dr. Perez > last checked in last week GERD (gastroesophageal reflux disease) Hyponatremia Chronic issue- follows with nephrology - pt. denies seeing automotive airconditioning mechanic currently Chronic pain syndrome Tobacco use disorder Paroxysmal atrial fibrillation Eliquis/pacer - believes she may have had a cardioversion in [place] Surgical History Status post ORIF of fracture of ankle (2016) left ankle, had hardware in place, states had allergic reaction and later required amputation Hx of oral surgery (09/17/22) Debridement Necrotic Bone and Soft Tissue and Associated Infected Periodontally Infected Teeth to Allow Mitral Valve Replacement (Lower Jaw)(Not Applicable) - Ha Champion, DMD Hx of vascular surgery 11/2019, with dr maya, [facility], replaced 2 veins with bovine veins in Rt leg Bilateral femoral endarterectomy with iliac stent (2016) History of surgery (~07/30/21) Attempt for MitraClip ([facility]) was performed but unsuccessful (07/2021); currently being seen in [facility] for a trial for valve replacement History of esophagogastroduodenoscopy (EGD) History of cardiac cath (~04/24/21) 03/2021@ [facility] with Dr. Carbajal, no evidence of epicardial CAD - no stents- follows with dr. perez S/P angiogram of extremity right lower leg S/P femoral-popliteal bypass surgery History of amputation (2016) [place] - [facility]- had fractured ankle, had metal placed, then had allergy to metal and required amputation History of colonoscopy History of tooth extraction History of appendectomy Family History Unknown No problems noted. Father Family history of diabetes mellitus Breast cancer Diabetes Hypertension Mother Hypertension Other No family history of adverse response to anesthesia Social History Smoking Status: Current every day smoker Tobacco Type: Cigarettes Cigarettes Per Day: 1/2 ppd (advised); Second Hand Exposure: No; Do You Dip or Chew Tobacco: No; Tobacco Cessation Education Requested by Patient: No Hx Alcohol Use: Yes Alcohol type: beer Alcohol Intake Frequency: 2-4 x/Month Hx Substance Use: No Preferred Language: Czech Communication Ability: Effective Visual Impairment: No Limitations Paid Search Specialist Required: No Beliefs That Will Affect Care: None marital status: Current Living Situation: Spouse current occupational status: disabled current occupation: Retired How many Children do You have: 1 Other Information That Helps Us Care for You: No Feels Safe at Home: Yes Safety Concerns: Feels Safe At This Time Diet: regular during the past year weight has: decreased > 10 lbs Assistive Devices: Denture - Upper, Denture - Lower, Glasses, Wheelchair and Other Assistive Devices Comment: waiting to get to new prosthetic Review of Systems All systems reviewed & are unremarkable except as noted in HPI & below Physical Exam Physical Exam: Constitutional: In general patient is a chronically ill-appearing elderly female in no distress. She is alert and oriented without any focal deficits. Her carotid does not demonstrate a bruit. Her heart is irregular. Her lungs are decreased with sparse expiratory wheezing but otherwise clear. Patient is in the wheelchair today. Results & Data Vital Signs (Past 12 Hours) Vital Signs Temp Pulse Resp BP Pulse Ox O2 Del Method 08/01/25 09:10 36.7 C 96 H 20 97/58 L 96 Room Air
[2025-08-01] MEDS: SODIUM CHLORIDE 0.9% 1,000 ML IV SCH ×2 (09:56→15:20)
[2025-08-01] MEDS: CLINDAMYCIN/D5W 900 MG/50 ML BAG IV SCH (10:00)
[2025-08-01] MEDS ORDERED: NOREPINEPHRINE BITARTRATE 1 MG/ML 4 ML VIAL IV ONE (10:28)
[2025-08-01] MEDS ORDERED: ROCURONIUM BROMIDE 10 MG/ML 5 ML VIAL IV ONE (10:47)
[2025-08-01] MEDS ORDERED: SUGAMMADEX SODIUM 200 MG/2 ML VIAL IV ONE (10:54)
[2025-08-01] MEDS ORDERED: PROTAMINE SULFATE 10 MG/ML 5 ML VIAL IV ONE (11:48)
[2025-08-01] MEDS: ceFAZolin 330 MG/ML 1 GM VIAL ONE (12:00)
[2025-08-01] MEDS: BUPIVACAINE/EPINEPHRINE 0.5% MPF 1:200,000 30 ML VIAL ONE (12:02)
[2025-08-01] MEDS: GELATIN SPONGE SZ 100 ONE (12:03)
[2025-08-01] MEDS: THROMBIN FOR SOLN 20000 UNIT KIT ONE (12:08)
[2025-08-01] MEDS: VISIPAQUE IV ONE (12:08)
--- NOTE | 2025-08-01 12:21 | Procedure Note ---
Angiogram Post Procedure Fluoroscopy Time (minutes): 2.5 Radiation (mGy): 28 Contrast: 15 Post Operative Report Pre & Post Diagnosis Operation Date: 08/01/25 09:20 Pre-Op Diagnosis: Stenosis of right internal carotid artery Post-Op Diagnosis: Stenosis of right internal carotid artery I identified the patient and participated in the time-out.: Yes Procedure Operation Date: 08/01/25 09:20 Actual Procedures p Right Transcarotid Artery Revascularization with Ultrasound of Left Femoral Vein(Right) - Payam Maya MD Surgeon Payam Maya MD Floral Designer Salesperson Lauren,PAC Estimated Blood Loss 50 Findings Consistent with Post-Op Diagnosis Specimens none Anesthesia Type General Complications none Disposition Accompanied Patient To Recovery: No Disposition: Recovery Room Indications This is a 65-year-old female who was found to have severe stenosis of the right internal carotid artery. Intervention was recommended. We discussed versus endarterectomy. She elected a TCAR approach. I have discussed the risks options and benefits of the procedure with the patient. The patient understands the risks options and benefits and agrees to the procedure. Description of Procedure The patient was taken to the operating room and placed in supine position. After general anesthesia was accomplished the groins and right side of the neck and chest were prepped and draped in a sterile manner. Timeout was performed and the patient was identified. A transverse incision was made just above the clavicle between the heads of the sternocleidomastoid. This is carried down to where the common carotid artery was identified. It was isolated. It was slung with umbilical tape. Next the U stitch was placed in the common carotid artery with a 5-0 Prolene suture. Patient was given 8000 heparin at that time. Ultrasound was then used to localize the right common femoral vein. The vein was patent and compressed easily. Under ultrasound guidance the right common femoral vein was punctured and the venous sheath was inserted. This was aspirated and flushed with heparinized saline. ACT at that time was 348. Using micropuncture technique the common carotid artery was punctured using a tunneling technique. The micro sheath was inserted to 3 cm. Injection was then done showing the bifurcation. There was a significant lesion seen at the origin of the internal carotid artery on the right side extending upward. We then inserted the J-wire left and short of the lesion. The micro sheath was removed and the TCAR sheath was inserted using a tunneling technique without the footplate. Once it was in place it was sutured to the chest wall and the incision edge. We then flushed the tubing appropriately. The venous return to was clamped onto the TCAR sheath. It was flushed through and then attached to the venous inflow sheath in the left groin. Sheath was checked for flow. The saline cleared nicely. The common carotid artery was then clamped. Flow reversal was instituted.The flow reversal was again checked for flow and found to have good flow after clamping. We inserted a 4.5 x 35 balloon backloaded on the wire. The wire was passed through the lesion into the petrous portion of the internal carotid. The 4.5 balloon was then advanced to the lesion. Lesion was then predilated with a 4.5 mm balloon. Balloon was removed. We then inserted the 8/6 x 40 stent. This was deployed across the lesion without difficulty. The catheter was removed. Appeared to be still a slight amount of narrowing at the midportion of the stent. We then inserted a 5 x 25 balloon and redilated this area. Widely patent stent was then noted on fluoroscopy. The carotid was allowed to go 2 minutes with flow reversal. Completion angiogram was done at that time which showed a widely patent carotid stent. At that point the common carotid artery was unclamped. The venous return tubing was clamped and removed from the TCAR sheath. The blood was allowed to flow back into the venous system. The TCAR sheath was then removed and the 5-0 Prolene suture securely tied. The patient was given 25 mg of protamine. Hemostasis was noted of the puncture site. An ACT was then drawn. The ACT was 152. The sheath was pulled from the groin and pressure was applied. Wound was irrigated with saline solution. Adequate hemostasis was obtained of the wound. Once this was noted the wound was closed in usual fashion using a 3-0 Vicryl suture for the subcuta neous layer and a 4-0 subcuticular Vicryl suture for the skin edges. Dermabond was used for dressing. The patient left the operation room in satisfactory condition and tolerated the procedure well. All needle and sponge counts were correct at the end of the procedure. Nimo Leigh Pac assisted due to lack of resident availability and was necessary for positioning, draping, retraction, wound closure deep layers, subcutaneous tissue, and skin closure and was necessary for assisting with the case. I attest to the content of the Intraoperative Record and any orders documented therein. Any exceptions are noted below.
[2025-08-01] MEDS: PHENYLEPHRINE/NSS 25 MG/250 ML BAG IV PRN (12:39)
--- NOTE | 2025-08-01 13:36 | Anesthesiology Progress Note ---
Date of Service August 01, 2025 Anesthesia Post Procedure Vital Signs Vital Signs: Temp Pulse Pulse Resp BP BP Pulse Ox 08/01/25 13:15 69 13 110/51 L 101/67 100 08/01/25 13:05 71 10 L 108/52 L 97/57 L 100 08/01/25 12:55 64 13 108/47 L 100/65 98 08/01/25 12:45 80 12 98/28 L 97/60 L 93 08/01/25 12:39 36.3 C L 76 16 100/43 L 104/79 100 08/01/25 09:10 36.7 C 96 H 20 97/58 L 96 O2 Del Method O2 Flow Rate 08/01/25 13:15 Nasal Cannula 4 08/01/25 13:05 Nasal Cannula 4 08/01/25 12:55 Nasal Cannula 4 08/01/25 12:45 Nasal Cannula 4 08/01/25 12:39 Oxymask 10 08/01/25 09:10 Room Air Pain Intensity Right Leg: Pain Intensity: 6 Left Upper Abdomen: Pain Intensity: 6 Transfer of Care Handoff Completed per policy Notes Mental Status: alert / awake / arousable Patient Amnestic to Procedure: Yes Nausea / Vomiting: adequately controlled Pain: adequately controlled Airway Patency, RR, SpO2: stable & adequate BP & HR: stable & adequate Hydration State: stable & adequate Anesthetic Complications: no major complications apparent and Pt Satisfied with anesthetic care
[2025-08-01] MEDS ORDERED: DOCUSATE SODIUM/SENNA 50/8.6MG TAB PO PRN (13:45)
[2025-08-01] MEDS ORDERED: STAT IV Infusion **Titration per Protocol STA (13:45)
[2025-08-01] MEDS: PANCREAZE (LIPASE 4,200U) CAP PO SCH (15:22)
--- NOTE | 2025-08-01 15:25 | Critical Care Consultation ---
Date of Consultation August 01, 2025 Assessment & Plan (1) Stenosis of right internal carotid artery: (2) (HFpEF) heart failure with preserved ejection fraction: (3) Chronic atrial fibrillation: (4) COPD (chronic obstructive pulmonary disease): (5) HTN (hypertension): (6) GERD (gastroesophageal reflux disease): (7) Depression: (8) Anxiety: (9) Dyslipidemia: (10) COPD (chronic obstructive pulmonary disease): Plan Anisha Garcia is a 65-year-old female with past medical history of carotid stenosis, PVD w/ left BKA, Pancreatic cyst, HFpEF, Atrial fibrillation, mitral regurgitation, COPD, chronic pain syndrome, smoker, GERD, HTN, HLD, and anxiety; who presented to [facility] on 08/01/2025 for a planned right TCAR for carotid stenosis. Carotid stenosis s/p right TCAR -Maintain SBP > 100. Requiring Brenden gtt at 0.5. -Cont aspirin and plavix -Restart Eliquis on 08/02 am -Atropine and cardene for bradycardia or HTN -Pain control with gabapentin and PRN oxycodone and oxycodone/tylenol -Neurovascular checks per protocol -Vascular surgery primary; following Hypotension related to carotid bulb hypersensitivity related to right TCAR -Maintain SBP > 100. Requiring Brenden gtt at 0.5. -Consider starting midodrine in am if remains on Brenden gtt. COPD -Not on inhlaers at home -Can consider PRN albuterol if wheezing noted -Maintain SpO2 > 90% HFpEF; HTN, HLD; PAF -Cont metoprolol -Cont Eliquis with restart plan 08/02/2025 am. -Cont bumetanide -Monitor Depression; Anxiety -Cont amitriptyline. GERD -Cont PPI. I have personally spent 48 minutes of critical care time in the direct management of this patient. This is a life/limb threatening event. This includes time spent evaluating patient, direct bedside care, chart review, placing orders, interpretation of diagnostic studies, discussion with consultants, patient, and family members, as well as other required patient management activities. This time is exclusive of all separately billable procedures, and teaching time and separate from and in addition to any other critical care service time. History of Present Illness Reason for Consultation: Evaluation and management of carotid stenosis s/p right TCAR. Attending Physician: Payam Maya MD History of Present Illness Anisha Garcia is a 65-year-old female with past medical history of carotid stenosis, PVD w/ left BKA, Pancreatic cyst, HFpEF, Atrial fibrillation, mitral regurgitation, COPD, chronic pain syndrome, smoker, GERD, HTN, HLD, and anxiety; who presented to [facility] on 08/01/2025 for a planned right TCAR for carotid stenosis. Patient was evaluated by Dr. Maya for PVD and was noted to have a carotid ultrasound ordered by her hot box checker in March 2025 which showed 60 to 69% stenosis of left ICA and over 80% stenosis of the right ICA. This was confirmed on CTA neck in June 2025. Patient met with Dr. Maya and decided to move forward with right TCAR. Per report the procedure was performed without issue or complication. Patient was extubated and brought to the ICU post operatively for continued evaluation and management of her carotid stenosis s/p right TCAR with some subsequent hypotension requiring vasoactive medication. Allergies Allergy/AdvReac Type Severity Reaction Status Date / Time adhesive Allergy Severe SEVERE Verified 08/01/25 08:57 SKIN IRRITATION guanfacine Allergy Intermediate BP PROBLEMS Verified 08/01/25 08:57 nifedipine Allergy Intermediate BP PROBLEMS Verified 08/01/25 08:57 latex Allergy Mild Rash Verified 08/01/25 08:57 amoxicillin AdvReac Severe LIVER Verified 08/01/25 08:57 FAILURE clavulanic acid AdvReac Severe LIVER Verified 08/01/25 08:57 FAILURE Home Medications Medication Instructions Recorded Confirmed Type aspirin 81 mg tablet,delayed 81 mg PO QAM 12/19/19 08/01/25 History release (Tj Low Dose Aspirin) amitriptyline 50 mg tablet 50 mg PO HS 09/11/22 08/01/25 History sennosides 8.6 mg-docusate sodium 2 tab PO QAM PRN constipation #60 04/18/23 08/01/25 Rx 50 mg tablet (Senokot-S) tabs metoprolol succinate 25 mg 25 mg PO BID 04/25/23 08/01/25 History tablet,extended release 24 hr oxycodone 5 mg capsule 10 mg PO Q6H PRN moderate-severe 11/04/23 08/01/25 History pain apixaban 5 mg tablet (Eliquis) 5 mg PO BID 12/31/23 08/01/25 History xfwnet-rgzthwxt-svehqar (pork) 1 cap PO UD 01/05/24 08/01/25 History 3,000-9,500-15,000 unit capsule,del rel (Creon) zolpidem 10 mg tablet (Ambien) 10 mg PO HS 01/05/24 08/01/25 History pantoprazole 40 mg tablet,delayed 40 mg PO QAM #120 tabs 08/21/24 08/01/25 Rx release (Protonix) sodium chloride 1,000 mg soluble 1,000 mg PO BID #180 tabs 09/04/24 08/01/25 Rx tablet pregabalin 300 mg capsule 300 mg PO QAM 11/11/24 08/01/25 History bumetanide 2 mg tablet 2 mg PO QAM 02/28/25 08/01/25 History potassium chloride 20 mEq 40 meq (2 x 20 mEq) PO DAILY #180 02/28/25 08/01/25 Rx tablet,extended release tabs clopidogrel 75 mg tablet (Plavix) 75 mg PO DAILY 07/25/25 08/01/25 History Patient History Medical History Hx MRSA infection (12/2024) per chart, pos mrsa nasal swab 10/2024; pos wound swab 12/2024 Stump neuralgia PVD (peripheral vascular disease) Poor intravenous access HTN (hypertension) Dyslipidemia History of colitis Anasarca (HFpEF) heart failure with preserved ejection fraction COPD (chronic obstructive pulmonary disease) per chart, pt denies, states she does not see a pulm Hx of deep venous thrombosis per chart 40 years ago, pt. states does not remember History of cellulitis (10/2024) left groin/ abdomen- resolved Hx of fracture of femur (10/2024) left femur, due to a fall- states no surgery Acute blood loss anemia hx History of anesthesia reaction woke [place] middle [place] [facility] [place] bleeding Oct 2023, hospitalized at [facility] > due to this, patient switched from Xarelto to Eliquis > no further bleeding issues Splenic infarct pt unaware Acute pancreatitis hx Pancreas cyst AV block with subsequent syncope - s/p dual chamber pacemaker ([employer]) - 2019 per cardio records History of COVID-19 (08/2021) 08/2021- pcr test [place], not hosp; no symptoms, was in the ER for another issue- pt. states "I never had covid" Metabolic alkalosis TRISTAN (dyspnea on exertion) "only if i have fluid build up"- pt. does not ambulate due to needing new prosthesis Severe mitral regurgitation Per patient, attempt for MitraClip ([facility]) was performed but unsuccessful (07/2021) (little improvement of regurgitation with MitraClip x2- procedure aborted Hx of gastric ulcer Neuropathy Hx of pancreatitis Chronic. Due to heavy alcohol consumption per records Anxiety and depression Hx of migraines Pacemaker Dual-chamber, implanted 2018 (high grade AVB/sinus node dysfunction), [employer], follows with Dr. Perez > last checked in last week GERD (gastroesophageal reflux disease) Hyponatremia Chronic issue- follows with nephrology - pt. denies seeing motor rebuilder currently Chronic pain syndrome Tobacco use disorder Paroxysmal atrial fibrillation Eliquis/pacer - believes she may have had a cardioversion in [place] Surgical History Status post ORIF of fracture of ankle (2016) left ankle, had hardware in place, states had allergic reaction and later required amputation Hx of oral surgery (09/17/22) Debridement Necrotic Bone and Soft Tissue and Associated Infected Periodontally Infected Teeth to Allow Mitral Valve Replacement (Lower Jaw)(Not Applicable) - Ha Champion, DMD Hx of vascular surgery 11/2019, with dr maya, [facility], replaced 2 veins with bovine veins in Rt leg Bilateral femoral endarterectomy with iliac stent (2016) History of surgery (~07/30/21) Attempt for MitraClip ([facility]) was performed but unsuccessful (07/2021); currently being seen in [facility] for a trial for valve replacement History of esophagogastroduodenoscopy (EGD) History of cardiac cath (~04/24/21) 03/2021@ [facility] with Dr. Carbajal, no evidence of epicardial CAD - no stents- follows with dr. perez S/P angiogram of extremity right lower leg S/P femoral-popliteal bypass surgery History of amputation (2016) balta - LLE- had fractured ankle, had metal placed, then had allergy to metal and required amputation History of colonoscopy History of tooth extraction History of appendectomy Family History Unknown No problems noted. Father Family history of diabetes mellitus Breast cancer Diabetes Hypertension Mother Hypertension Other No family history of adverse response to anesthesia Social History Smoking Status: Current every day smoker Tobacco Type: Cigarettes Cigarettes Per Day: 1/2 ppd (advised); Second Hand Exposure: No; Do You Dip or Chew Tobacco: No; Tobacco Cessation Education Requested by Patient: No Hx Alcohol Use: Yes Alcohol type: beer Alcohol Intake Frequency: 2-4 x/Month Hx Substance Use: No Preferred Language: Citizen Of [place] Communication Ability: Effective Visual Impairment: No Limitations Applications Sales Consultant Required: No Beliefs That Will Affect Care: None marital status: Current Living Situation: Spouse current occupational status: disabled current occupation: Retired How many Children do You have: 1 Other Information That Helps Us Care for You: No Feels Safe at Home: Yes Safety Concerns: Feels Safe At This Time Diet: regular during the past year weight has: decreased > 10 lbs Assistive Devices: Denture - Upper, Denture - Lower, Glasses, Wheelchair and Other Assistive Devices Comment: waiting to get to new prosthetic Review of Systems Review of Systems: All systems reviewed & are unremarkable except as noted in HPI & below Physical Exam Physical Exam: VITALS: Reviewed. WEIGHT/BMI reviewed. GEN: Well-developed, NAD. PSYCH: Good Judgment. AOx3. Normal memory, mood, and affect. HEENT -Head: NC/AT; -Eyes: PERRL, EOMI. No discharge or redn ess; -Ears: External ears are normal. -Nose: Normal nares. NECK: Supple, with no masses. CV: RRR, no m/r/g. LUNGS: CTAB, no w/r/c. ABD: Soft, NT/ND, NBS, no masses or organomegaly. : N/A SKIN: Warm, well perfused. No skin rashes or abnormal lesions. MSK: No deformities, Normal gait. EXT: No clubbing, cyanosis, or edema. Left BKA. Right groin access site without bleeding or hematoma. NEURO: Face symmetric, speech clear, Normal muscle strength and tone. No focal deficits. Results & Data Results & Data Vital Signs (Past 12 Hours) Vital Signs Temp Pulse Pulse Pulse Resp BP BP 08/01/25 15:03 75/52 L 08/01/25 15:03 75/52 L 08/01/25 15:03 75/52 L 08/01/25 15:03 75/52 L 08/01/25 15:03 88 14 08/01/25 15:00 70 13 08/01/25 15:00 67/43 L 08/01/25 15:00 67/43 L 08/01/25 15:00 67/43 L 08/01/25 15:00 67/43 L 08/01/25 14:45 71 13 08/01/25 14:30 86 15 08/01/25 14:15 71 16 08/01/25 14:12 68 13 08/01/25 14:08 102/54 L 08/01/25 14:08 102/54 L 08/01/25 13:45 36.3 C L 70 10 L 118/54 L 08/01/25 13:35 70 16 115/50 L 08/01/25 13:25 65 11 L 103/42 L 08/01/25 13:15 69 13 110/51 L 08/01/25 13:05 71 10 L 108/52 L 08/01/25 12:55 64 13 108/47 L 08/01/25 12:45 80 12 98/28 L 08/01/25 12:39 36.3 C L 76 16 100/43 L 08/01/25 09:10 36.7 C 96 H 20 BP Pulse Ox O2 Del Method O2 Flow Rate 08/01/25 15:03 08/01/25 15:03 08/01/25 15:03 08/01/25 15:03 08/01/25 15:03 90 08/01/25 15:00 89 L 08/01/25 15:00 08/01/25 15:00 08/01/25 15:00 08/01/25 15:00 08/01/25 14:45 92 08/01/25 14:30 90 Room Air 08/01/25 14:15 08/01/25 14:12 08/01/25 14:08 08/01/25 14:08 08/01/25 13:45 103/57 L 98 Nasal Cannula 4 08/01/25 13:35 102/55 L 97 Nasal Cannula 4 08/01/25 13:25 97/56 L 100 Nasal Cannula 4 08/01/25 13:15 101/67 100 Nasal Cannula 4 08/01/25 13:05 97/57 L 100 Nasal Cannula 4 08/01/25 12:55 100/65 98 Nasal Cannula 4 08/01/25 12:45 97/60 L 93 Nasal Cannula 4 08/01/25 12:39 104/79 100 Oxymask 10 08/01/25 09:10 97/58 L 96 Room Air Critical Care Results & Data Vital Signs (Past 12 Hours) Vital Signs Temp Pulse Pulse Resp BP BP BP 08/01/25 20:45 08/01/25 15:03 75/52 L 08/01/25 15:03 75/52 L 08/01/25 15:03 75/52 L 08/01/25 15:03 75/52 L 08/01/25 15:03 88 14 08/01/25 15:00 70 13 08/01/25 15:00 67/43 L 08/01/25 15:00 67/43 L 08/01/25 15:00 67/43 L 08/01/25 15:00 67/43 L 08/01/25 14:45 71 13 08/01/25 14:30 86 15 08/01/25 14:15 08/01/25 14:15 71 16 08/01/25 14:12 68 13 08/01/25 14:08 102/54 L 08/01/25 14:08 102/54 L 08/01/25 13:45 36.3 C L 70 10 L 118/54 L 103/57 L 08/01/25 13:35 70 16 115/50 L 102/55 L 08/01/25 13:25 65 11 L 103/42 L 97/56 L 08/01/25 13:15 69 13 110/51 L 101/67 08/01/25 13:05 71 10 L 108/52 L 97/57 L 08/01/25 12:55 64 13 108/47 L 100/65 08/01/25 12:45 80 12 98/28 L 97/60 L 08/01/25 12:39 36.3 C L 76 16 100/43 L 104/79 Pulse Ox O2 Del Method O2 Flow Rate 08/01/25 20:45 Room Air 08/01/25 15:03 11/05/25 15:03 08/01/25 15:03 08/01/25 15:03 08/01/25 15:03 90 08/01/25 15:00 89 L 08/01/25 15:00 08/01/25 15:00 08/01/25 15:00 08/01/25 15:00 08/01/25 14:45 92 08/01/25 14:30 90 Room Air 08/01/25 14:15 Room Air 08/01/25 14:15 08/01/25 14:12 08/01/25 14:08 08/01/25 14:08 08/01/25 13:45 98 Nasal Cannula 4 08/01/25 13:35 97 Nasal Cannula 4 08/01/25 13:25 100 Nasal Cannula 4 08/01/25 13:15 100 Nasal Cannula 4 08/01/25 13:05 100 Nasal Cannula 4 08/01/25 12:55 98 Nasal Cannula 4 08/01/25 12:45 93 Nasal Cannula 4 08/01/25 12:39 100 Oxymask 10 Lab & Micro Results (Past 24 Hours) No Data to Display Na 132 mmol/L (136-145) L 08/01/25 K 3.7 mmol/L (3.5-5.1) 08/01/25 Cl 99 mmol/L (98-107) 08/01/25 CO2 26 mmol/L (21-32) 08/01/25 Anion Gap 7 (3-11) 08/01/25 BUN 15 mg/dl (6-23) 08/01/25 Creatinine 0.84 mg/dl (0.6-1.2) 08/01/25 BUN/Creatinine Ratio 17.9 (10-20) 08/01/25 Glu 93 mg/dl (70-99(Fasting)) 08/01/25 Ca 9.1 mg/dl (8.6-10.3) 08/01/25 Calcium Level 9.1 mg/dl (8.6-10.3) 08/01/25 08:37 I & O Totals 24 Hours 07/31/25 08/01/25 08/02/25 06:59 06:59 06:59 Intake Total 2266.675 / 2266.675 Output Total 50 / 50 Balance 2216.675 / 2216.675 Cumulative 07/10/25 11:14 thru 08/01/25 19:16 Intake Total 2266.675 Output Total 50 Balance 2216.675 RT Ventilator Mngmt (Last Documented) Ventilator Ordered Settings Respiratory Rate 14 08/01/25 15:03 Ventilator - PT Measurements Respiratory Rate 14 Coding Level of Care Code 41120 CRITICAL CARE 1ST 30-74M Diagnoses Stenosis of right internal carotid artery I65.21 (HFpEF) heart failure with preserved ejection fraction I50.30 Chronic atrial fibrillation I48.20 COPD (chronic obstructive pulmonary disease) J44.9 COPD type: unspecified COPD HTN (hypertension) I10 Gastroesophageal reflux disease, esophagitis presence not specified K21.9 Esophagitis presence: esophagitis presence not specified Depression F32.9 Anxiety F41.9 Dyslipidemia E78.5 (4) COPD (chronic obstructive pulmonary disease) COPD type: unspecified COPD Qualified Code(s): J44.9 - Chronic obstructive pulmonary disease, unspecified (6) GERD (gastroesophageal reflux disease) Esophagitis presence: esophagitis presence not specified Qualified Code(s): K21.9 - Gastro-esophageal reflux disease without esophagitis
[2025-08-01] MEDS: CLINDAMYCIN/D5W 600 MG/50 ML BAG IV SCH (16:56)
[2025-08-01] MEDS: SODIUM CHLORIDE 1 GM TABLET PO SCH (20:49)
[2025-08-01] MEDS: ZOLPIDEM TARTRATE 5 MG TAB PO SCH (20:49)
[2025-08-01] MEDS: AMITRIPTYLINE HCL 50 MG TAB PO SCH (20:49)
[2025-08-01] MEDS: METOPROLOL SUCC 25MG EXT REL TAB PO SCH (20:50)
[2025-08-02] MEDS: MIDODRINE HCL 10 MG TAB PO SCH (06:47)
--- NOTE | 2025-08-02 09:07 | Critical Care Progress Note ---
Date of Service August 02, 2025 Assessment & Plan (1) Stenosis of right internal carotid artery: (2) (HFpEF) heart failure with preserved ejection fraction: (3) Chronic atrial fibrillation: (4) COPD (chronic obstructive pulmonary disease): (5) HTN (hypertension): (6) GERD (gastroesophageal reflux disease): (7) Depression: (8) Anxiety: (9) Dyslipidemia: Plan Patient is a 65-year-old female with a history of carotid stenosis, PVD with left BKA, history of pancreatitis with pancreatic cyst, HFpEF, atrial fibrillation, mitral regurgitation, COPD with chronic tobacco use, chronic pain syndrome, GERD, hypertension, hyperlipidemia and anxiety. The patient presented to the hospital on 08/01/2025 for planned right TCAR for carotid stenosis. The procedure went well. The patient was transferred to the ICU for monitoring postoperatively. The patient had some mild hypotension. She was started on midodrine by surgical provider. Was also on brenden but this has been weaned off after midodrine administration. The patient complained of some abdominal discomfort and had a low-grade fever this morning. She was administered Tylenol and labs were obtained. There is no evidence of pancreatitis. Mild drop in hemoglobin by 2 points but nothing significant and she is not having any active bleeding. Carotid stenosis s/p right TCAR -Maintain SBP > 100. Started on midodrine per primary surgeon. -Cont aspirin and plavix - Resume Eliquis. -Atropine and cardene for bradycardia or HTN -Pain control with gabapentin and PRN oxycodone and oxycodone/tylenol -Neurovascular checks per protocol -Vascular surgery primary Hypotension related to carotid bulb hypersensitivity related to right TCAR -Maintain SBP > 100. Brenden has been weaned off. Started on midodrine. COPD -Not on inhlaers at home -Can consider PRN albuterol if wheezing noted -Maintain SpO2 > 90% HFpEF; HTN, HLD; PAF -Cont metoprolol -Cont Eliquis with restart plan 08/02/2025 am. -Cont bumetanide -Monitor Depression; Anxiety -Cont amitriptyline. GERD -Cont PPI. Patient is doing well postop day 1 from right TCAR. Had some mild fevers which she received 1 dose of Tylenol for. No significant leukocytosis. Have not done any cultures at this time. Patient is having some abdominal pain however labs do not suggest any evidence of pancreatitis. Has been weaned off of brenden-. Was started on midodrine. Patient is stable to be transferred out of the ICU. I have personally spent 55 minutes of critical care time in the direct management of this patient. This is a life/limb threatening event. This includes time spent evaluating patient, direct bedside care, chart review, placing orders, interpretation of diagnostic studies, discussion with consultants, patient, and family members, as well as other required patient management activities. This time is exclusive of all separately billable procedures, and teaching time and separate from and in addition to any other critical care service time. Admission and Anticipated Discharge Date Admission Date: August 01, 2025 Subjective Past 24-hour events: Patient was hypotensive overnight. On brenden-. Midodrine was started. Having fevers this morning. Rounding: When I examined her she is having a little bit of pain at the surgical site but the incision and surrounding area looks good. She says her belly is hurting, she has significant tenderness to palpation. She endorses a history of pancreatitis and has a history of a pancreatic cyst. She denies alcohol use. A little bit altered this morning. Got Ambien last night. She is appropriate when you can wake her up but falls back to sleep very quickly. Remains febrile. Intake: 3095 mL Output: 50 mL Net: +2045 mL Mechanical ventilation: None, nasal cannula Feeding: Diet, poor appetite. IV infusions: None, brenden on hold Laboratory: CBC: WBC 6.8, hemoglobin 8.2, platelet 115 Chemistry: Sodium 134, potassium 3.8, chloride 104, bicarb 23, BUN 15, creatinine 0.98, glucose 100, lactate 0.8, calcium 8.6, T. bili 1.4, AST 24, ALT 8, alk phos 140, normal triglycerides, lipase 6, amylase 31 AB.36/37/68/21 and 93%. Review of Systems Review of Systems: Endorses some abdominal pain. Denies nausea. Endorses poor appetite. Endorses a small amount of pain in her neck. Physical Exam Physical Exam: Physical examination: General: Resting comfortably in bed, sleepy, does awaken to voice. HEENT: Normocephalic, atraumatic. Extraocular movements intact. Right neck surgical incision is clean dry and intact, minimal edema, no significant bruising. Cardiovascular: Heart is a regular rate and rhythm, no murmurs appreciated on my exam. No significant lower extremity edema. Lungs: Clear bilaterally, no wheezing appreciated. No crackles. Nontachypneic. Resting comfortably on nasal cannula. Abdomen: Soft, tender to palpation with mild guarding. Bowel sounds are present. No bruising appreciated. Musculoskeletal: Normal muscle mass and tone. Left BKA. Neurologic: Sleepy but awakes to voice. Oriented. CN II through XII are grossly intact. Speech is fluent. Nonfocal exam. Psychiatric: Appropriate cooperative during my exam. Results & Data Results & Data Vital Signs (Past 12 Hours) Vital Signs Temp Pulse Resp Pulse Ox O2 Del Method O2 Flow Rate 08/02/25 07:51 74 17 95 Nasal Cannula 1 08/02/25 07:42 84 18 94 Nasal Cannula 1 08/02/25 07:34 88 08/02/25 07:30 95 H 20 95 Nasal Cannula 1 08/02/25 07:21 87 21 94 Nasal Cannula 1 08/02/25 07:12 93 H 17 94 Nasal Cannula 1 08/02/25 07:00 81 15 93 Nasal Cannula 1 08/02/25 06:51 85 15 94 Nasal Cannula 1 08/02/25 06:42 85 13 94 Nasal Cannula 1 08/02/25 06:30 100 H 12 94 Nasal Cannula 1 08/02/25 06:21 101 H 13 94 Nasal Cannula 1 08/02/25 06:12 109 H 12 96 Nasal Cannula 1 08/02/25 06:00 95 H 12 96 Nasal Cannula 1.5 08/02/25 05:00 94 H 14 95 Nasal Cannula 1.5 08/02/25 04:05 36.9 C 08/02/25 04:00 96 H 12 95 Nasal Cannula 1.5 08/02/25 03:00 81 12 94 Nasal Cannula 1.5 08/02/25 02:00 96 H 20 90 Room Air 08/02/25 01:00 87 16 90 Room Air 08/02/25 00:05 36.9 C 08/02/25 00:02 80 12 89 L Room Air 08/02/25 00:00 82 08/01/25 23:32 86 12 89 L Room Air 08/01/25 23:02 82 14 89 L Room Air 08/01/25 22:32 88 12 88 L Room Air 08/01/25 22:05 87 10 L 88 L Room Air Coding Level of Care Code 70788 CRITICAL CARE 1ST 30-74M Diagnoses Stenosis of right internal carotid artery I65.21 (HFpEF) heart failure with preserved ejection fraction I50.30 Chronic atrial fibrillation I48.20 COPD (chronic obstructive pulmonary disease) J44.9 COPD type: unspecified COPD HTN (hypertension) I10 Gastroesophageal reflux disease, esophagitis presence not specified K21.9 Esophagitis presence: esophagitis presence not specified Depression F32.9 Anxiety F41.9 Dyslipidemia E78.5 (4) COPD (chronic obstructive pulmonary disease) COPD type: unspecified COPD Qualified Code(s): J44.9 - Chronic obstructive pulmonary disease, unspecified (6) GERD (gastroesophageal reflux disease) Esophagitis presence: esophagitis presence not specified Qualified Code(s): K21.9 - Gastro-esophageal reflux disease without esophagitis
[2025-08-02] MEDS: ACETAMINOPHEN 1,000 MG/100 ML VIAL IV STA (09:29)
[2025-08-02] MEDS: CLOPIDOGREL BISULFATE 75 MG TAB PO SCH (09:34)
[2025-08-02] MEDS: APIXABAN 5 MG TABLET PO SCH (09:34)
[2025-08-02 09:38] LABS: iSTAT Art Bld Gas Base Excess -4.0 mmol/L (-9-1.8); iSTAT Art Bld Gas pCO2 Correct 37 mmHg (35-46); iSTAT Art Bld Gas pH Corrected 7.362 (7.35-7.45); iSTAT Arterial Blood Gas pO2 C 68
[2025-08-02 09:40] LABS: Hematocrit (blood only) 24.3 % (37.0-47.0); Hemoglobin 8.2 g/dl (12.0-16.0); Immature Granulocytes # (auto) 0.02 K/uL (0.01-0.20); Immature Granulocytes % (auto) 0.3 %; Mean Corpuscular Hemoglobin 30.7 pg (25.0-34.0); Mean Corpuscular Volume 91.0 fL (80.0-100.0); Platelet Count 115 K/uL (130-400); RDW Standard Deviation 52.3 fL (36.4-46.3); Red Blood Count 2.67 M/uL (4.20-5.40); White Blood Count 6.87 K/ul (4.8-10.8)
[2025-08-02] MEDS ORDERED: ZOLPIDEM TARTRATE 5 MG TAB PO PRN (09:40)
[2025-08-02] MEDS: ASPIRIN 81 MG ECTAB PO SCH (09:42)
[2025-08-02] MEDS: BUMETANIDE 1 MG TAB PO SCH (09:44)
[2025-08-02] MEDS: POTASSIUM CHLORIDE CRTAB 20 MEQ TABCR PO SCH (09:44)
[2025-08-02] MEDS: PREGABALIN 150 MG CAP PO SCH (09:44)
[2025-08-02 09:55] LABS: Alanine Aminotransferase 8.0 U/L (7-52); Albumin Globulin Ratio 1.1 (0.9-2); Albumin Level 3.4 gm/dl (3.4-5.0); Alkaline Phosphatase 140.0 U/L (34-104); Amylase 31.0 U/L (25-115); Anion Gap 7.0 (3-11); Bilirubin,Total 1.4 mg/dl (0.2-1.0); Blood Urea Nitrogen 15.0 mg/dl (6-23); Calcium 8.6 mg/dl (8.6-10.3); Carbon Dioxide 23.0 mmol/L (21-32); Chloride 104.0 mmol/L (98-107); Cholesterol 70.0 mg/dl (0-200); Creatinine Clr Calc Pharmacy 54.9 ml/min; Globulin 3.0 gm/dl (2.5-4.0); Glucose 100.0 mg/dl (70-99(Fasting)); HDL Cholesterol 28.0 mg/dl; Lipase 6.0 U/L (11-82); Potassium 3.8 mmol/L (3.5-5.1); Sodium 134.0 mmol/L (136-145); Total Protein 6.4 gm/dl (6.0-8.3); Triglycerides 71.0 mg/dl (0-150)
--- NOTE | 2025-08-02 12:18 | Surgery Progress Note ---
Date of Service August 02, 2025 Assessment & Plan (1) Stenosis of right internal carotid artery: Plan: POD 1 from right tcar. Now off thuy. Doing well will send to floor (2) Acute blood loss as cause of postoperative anemia: Plan: Blood loss secondary to surgery and hematoma of chest and left arm from a fall just before admission to hospital Will follow cbc Admission and Anticipated Discharge Date Admission Date: August 01, 2025 Subjective Patient without complaint other than her usual abdominal discomfort. Denies focal deficits Physical Exam Constitutional: WD/WN, vitals as above Neck: trachea midline Respiratory: normal respiratory effort; no respiratory distress Cardiovascular: Rate/Rhythm: regular rate and regular rhythm Skin: + incision (ecchymotic with moderate swe lling, dry and clean) Neurologic: CN's II-XI intact bilaterally and moves all extremities Results & Data Vital Signs (Past 12 Hours) Vital Signs Temp Pulse Resp Pulse Ox O2 Del Method O2 Flow Rate 08/02/25 11:30 73 15 97 Nasal Cannula 1 08/02/25 11:00 88 15 94 Nasal Cannula 1 08/02/25 10:30 79 21 96 Nasal Cannula 1 08/02/25 10:00 84 15 95 Nasal Cannula 1 08/02/25 09:51 82 16 93 Nasal Cannula 1 08/02/25 09:42 92 H 14 94 Nasal Cannula 1 08/02/25 09:30 86 13 94 Nasal Cannula 1 08/02/25 09:17 Nasal Cannula 1 08/02/25 09:12 88 13 93 Nasal Cannula 1 08/02/25 09:00 82 12 94 Nasal Cannula 1 08/02/25 08:51 85 14 93 Nasal Cannula 1 08/02/25 08:42 86 14 92 Nasal Cannula 1 08/02/25 08:30 38.2 C H 87 93 Nasal Cannula 1 08/02/25 08:21 92 H 12 95 Nasal Cannula 1 08/02/25 08:12 85 13 94 Nasal Cannula 1 08/02/25 08:00 87 15 94 Nasal Cannula 1 08/02/25 07:51 74 17 95 Nasal Cannula 1 08/02/25 07:42 84 18 94 Nasal Cannula 1 08/02/25 07:34 88 08/02/25 07:30 95 H 20 95 Nasal Cannula 1 08/02/25 07:21 87 21 94 Nasal Cannula 1 08/02/25 07:12 93 H 17 94 Nasal Cannula 1 08/02/25 07:00 81 15 93 Nasal Cannula 1 08/02/25 06:51 85 15 94 Nasal Cannula 1 08/02/25 06:42 85 13 94 Nasal Cannula 1 08/02/25 06:30 100 H 12 94 Nasal Cannula 1 08/02/25 06:21 101 H 13 94 Nasal Cannula 1 08/02/25 06:12 109 H 12 96 Nasal Cannula 1 08/02/25 06:00 95 H 12 96 Nasal Cannula 1.5 08/02/25 05:00 94 H 14 95 Nasal Cannula 1.5 08/02/25 04:05 36.9 C 08/02/25 04:00 96 H 12 95 Nasal Cannula 1.5 08/02/25 03:00 81 12 94 Nasal Cannula 1.5 08/02/25 02:00 96 H 20 90 Room Air 08/02/25 01:00 87 16 90 Room Air
[2025-08-02] MEDS: MIDODRINE HCL 2.5 MG TAB PO SCH (17:53)
[2025-08-02] MEDS: FERROUS SULFATE 325 MG TAB PO SCH (17:54)
[2025-08-02] MEDS: DOCUSATE SODIUM 100 MG CAP PO SCH (20:42)
[2025-08-03 07:23] VITALS: RESP 24; TEMP 98.1
[2025-08-03 07:43] LABS: Hematocrit (blood only) 22.6 % (37.0-47.0); Hemoglobin 7.8 g/dl (12.0-16.0); Mean Corpuscular Hemoglobin 31.2 pg (25.0-34.0); Mean Corpuscular Volume 90.4 fL (80.0-100.0); Platelet Count 94 K/uL (130-400); RDW Standard Deviation 50.9 fL (36.4-46.3); Red Blood Count 2.50 M/uL (4.20-5.40); White Blood Count 5.75 K/ul (4.8-10.8)
[2025-08-03 08:38] LABS: Immature Granulocytes # (auto) 0.02 K/uL (0.01-0.20); Immature Granulocytes % (auto) 0.3 %; Polychromasia 1+
--- NOTE | 2025-08-03 10:33 | Surgery Progress Note ---
Date of Service August 03, 2025 Assessment & Plan (1) Stenosis of right internal carotid artery: Plan: POD#2 from right tcar. on midodrine 5mg, LUE SBP 135mmHg. 20mmHg gradient noted in BP, L>R. OOB to chair independently, pt wants to go home. Refuses rehab. Pt discussed with Dr Maya, ok for d/c home today. (2) Acute blood loss as cause of postoperative anemia: Plan: Blood loss secondary to surgery and hematoma of chest and left arm from a fall just before admission to hospital. hgb 7.8. Pt remains stable. Pt will be d/c on iron. Admission and Anticipated Discharge Date Admission Date: August 01, 2025 Subjective 65 yo f POD #2 after R TCAR, seen in f/u today. Pt states feeling ok, just tired. No real complaints other than the food. Review of Systems Review of Systems: All systems reviewed & are unremarkable except as noted in HPI & below Physical Exam Constitutional: WD/WN, vitals as above Neck: trachea midline Respiratory: normal respiratory effort; no respiratory distress Cardiovascular: Rate/Rhythm: regular rate and regular rhythm Skin: + incision (ecchymotic with moderate swe lling, dry and clean) Neurologic: CN's II-XI intact bilaterally and moves all extremities Results & Data Vital Signs (Past 12 Hours) Vital Signs Temp Pulse Resp BP BP Pulse Ox O2 Del Method 08/03/25 09:20 107/64 82/55 L 08/03/25 07:18 36.7 C 89 24 81/48 L 94 Nasal Cannula 08/03/25 06:59 36.4 C L 88 16 84/58 L 92 Room Air 08/02/25 23:00 92/57 L O2 Flow Rate 08/03/25 09:20 08/03/25 07:18 2 08/03/25 06:59 08/02/25 23:00
[2025-08-03 10:47] VITALS: BP 104/67; PULSE 93; O2SAT 96
[2025-08-03] MEDS: INFLUENZA VACC TS2025-26(65y+)/PF (IIV3) 0.5mL Syr IM ONE (12:17)
== END 2025-08-03 12:17 | disposition home or self-care (01) | DRG 35 ==
LOC: ASU 08:38 → 1E 09:43 → 3N 08-02 17:10
PROC: EV.TCAR (2025-08-01 09:20)

== ENCOUNTER 2025-08-22 09:58 | Inpatient (IN) ==
[2025-08-22] MEDS: ONDANSETRON INJ 2 MG/ML 2 ML VIAL IV STA (10:44)
--- NOTE | 2025-08-22 10:44 | Emergency Department Note ---
Impression & Plan Metastatic cancer, Chronic hypoxemic respiratory failure, Back pain, Acute urinary retention, Acute cystitis without hematuria ED Provider Note NAME: TIARA MCCALL AGE: 65 SEX: F : 1960 ARRIVES VIA: Walk-In INFORMANT: Patient, ED PROVIDER(S): Regino Lewis DO CHIEF COMPLAINT: abdominal/back pain HPI: This is a 65-year-old female with the PMHx of recent right sided carotid endarterectomy, peripheral vascular disease, hypertension, hyperlipidemia, esophageal reflux, depression/anxiety, chronic atrial fibrillation, CHF, chronic pancreatitis, and MIRTA/NETTIE presenting to [facility] for further evaluation of abdominal pain. Patient is accompanied by her who provide additional history. Patient states that she felt like she slept on her back wrong. They deny fever or chills. No cough or congestion. Denies chest pain or palpitations. No shortness of breath. They deny abdominal pain, nausea and vomiting. No urinary complaints. No recent changes in bowel movements. Patient denies recent changes in medications or OTC supplements. Patient offers no other complaints, today. ADDITIONAL HISTORY OBTAINED: Per HPI Chronic Medical/Social Conditions Affecting Care: Per HPI PAST MEDICAL HISTORY: See Below PAST SURGICAL HISTORY: See Below FAMILY HISTORY: See Below SOCIAL HISTORY: See Below HOME MEDICATIONS: See Below ALLERGIES: See Below VITALS: See Below PHYSICAL EXAMINATION: GENERAL: Sitting up in bed, alert, well appearing, well nourished, no distress, non-toxic EYE EXAM: normal conjunctiva. PERRL and EOM's grossly intact. OROPHARYNX: no exudate, no erythema, lips, buccal mucosa, and tongue normal and mucous membranes are moist NECK: supple, no nuchal rigidity, no adenopathy, non-tender, healing R linear incision from carotid endarterectomy LUNGS: Clear to auscultation. Normal chest wall mechanics HEART: no murmurs, regular rate, regular rhythm ABDOMEN: abdomen soft, non-tender, no masses, no rebound or guarding. BACK: Back is symmetrical on inspection and there is no deformity, no midline tenderness, no CVA tenderness. Pain to palpation over bilateral paraspinal tissues. 5/5 stength in LEs with 2+ DPs. Sensation intact. 2+ patellar reflexes. SKIN: no rashes and no bruising UPPER EXTREMITIES: upper extremities are grossly normal. LOWER EXTREMITIES: No pitting edema. NEURO EXAM: Normal sensorium, GCS 15, normal speech, no gross weakness of arms, no gross weakness of legs. MEDICAL DECISION MAKING: Differential diagnoses includes but not limited to appendicitis, bowel obstruction, diverticulitis, malignancy, nephrolithiasis, gastroenteritis, ACS, PNA, pancreatitis, hepatobiliary disease, UTI, symptomatic anemia, MSK strain, compression fracture, muscle spasm, DDD, spinal cord compression In summary, this is a 65 year old female who presented with back pain. Differential as above. Nursing notes and pertinent past medical records reviewed. Vital signs reviewed and the patient is tachypneic on home O2 but otherwise afebrile and HDS. Please note she has low BP at baseline. History and presentation revealed as above. Physical examination revealed as above. As a result of my initial evaluation, IV access was established and the patient was placed on CCRM. Therapeutics ordered include IV opiates for pain control. Diagnostics interpreted by me include EKG and cardiac monitoring as listed below: -Cardiac Monitoring: An order was placed for continuous cardiac monitoring. The monitor shows a rate of [] with [] rhythm. -ECG: rate controlled atrial fibrillation with frequent PVCs. There were 3 PVCs present on this rhythm strip. There are lateral ST segment depressions as well as T wave inversions in the inferior leads. No significant ST segment changes to suggest STEMI. Patient completed laboratory studies and imaging. Results independently interpreted by me are minimal elevation of lactate at 2.1. Mild anemia is stable as compared to prior. No WBC elevation. There is no significant electrolyte derangements or significant kidney dysfunction from baseline. No changes in LFTs. The patient was managed further with IV Zofran and lidocaine patch. She appeared comfortable on reevaluations. Given today's workup along with midline lumbar spine tenderness and acute urinary retention, there are some concerns for spinal cord pathology. Please note that the patient is neurovascularly intact in lower extremities. I doubt acute cord compression but still consideration. Patient does not have a fever or significant findings of infectious signs on labs. Patient's urinalysis does show a UTI that is nitrite positive. Do suspect that this could be related to her symptoms and acute urinary retention. Urethral catheter was placed. I do feel that it still be reasonable to obtain an MRI. MRI of the back would be beneficial for further workup. The patient CT imaging today demonstrates metastatic cancer. Do feel this is likely from a primary lung pathology. The patient and I had an extensive discussion along with her . The patient does not feel that she would want significant interventions for back surgery. I did discuss chronic pain, worsening ambulatory status, permanent disability, and paralysis as risk without obtaining further workup at this time. Patient is not sure that she would want surgery. She is concerned that she would not survive the surgery as well. At this time, patient is comfortable with the above risk and would not like to proceed with emergent MRI. For this reason, it was felt that the patient does not need transferred. Patient can wait for MRI to be performed at this facility. Patient is agreeable to stay in the hospital given her ongoing pain as well as UTI with acute urinary retention.. I discussed the case with the hospitalist service via telephone/TigerText and they are agreeable to admit the patient to their services. Based on the above, including the patient's age, coexisting illnesses, labs, imaging, and exam findings the decision to treat as an inpatient. I discussed the patient with the hospitalist team who recommended admission to their services. They received the medications, treatments, interventions indicated above and their condition remained guarded. I discussed my findings with the patient and their family and they understand and agree with the treatment plan. All patient / family questions were answered to their satisfaction. Consults/Care Managements Discussions: Per MDM ER treatment provided: See above Procedures:none Critical Care: None The chart was completed utilizing Odee[employer] Speech voice recognition software. Grammatical errors, random word insertions, pronoun errors, and incomplete sentences are an occasional consequence of this system due to software limitations, ambient noise, and hardware issues. Any formal questions or concerns about the content, text, or information contained within the body of this dictation should be directly addressed to the physician for clarification. Past Med/Surg History Problem List (Updated 08/25/25 @ 15:23 by Regino Lewis DO) Acute cystitis without hematuria (Acute) Acute urinary retention (Acute) Back pain (Acute) Chronic hypoxemic respiratory failure (Acute) Metastatic cancer (Acute) Metastatic cancer to liver Acute blood loss as cause of postoperative anemia Stenosis of right internal carotid artery Hematuria Anasarca (Acute) Ischemia of right lower extremity Poor intravenous access Colitis (Acute) Metabolic acidosis Iron deficiency anemia Elevated lactic acid level (Acute) Leukocytosis (Acute) Shortness of breath (Acute) Anemia (Acute) Chronic hyponatremia (Acute) Pancreatic cyst Mandibular bony exostosis Carious teeth Periodontal disease Hyponatremia (HFpEF) heart failure with preserved ejection fraction Secondary to severe mitral regurgitation senior care (current) use of anticoagulants (Acute) Chronic atrial fibrillation (Acute) On Eliquis Follows with Dr. Perez ([facility]) Mitral regurgitation COPD (chronic obstructive pulmonary disease) (Acute) Chronic pain syndrome Pacemaker (Acute) Smoker (Acute) HTN (hypertension) Atherosclerosis of artery of extremity with rest pain Stump neuralgia GERD (gastroesophageal reflux disease) Dyslipidemia Depression Anxiety PVD (peripheral vascular disease) S/p left BKA Medical History Hx MRSA infection (12/2024) per chart, pos mrsa nasal swab 10/2024; pos wound swab 12/2024 Stump neuralgia PVD (peripheral vascular disease) Poor intravenous access HTN (hypertension) Dyslipidemia History of colitis Anasarca (HFpEF) heart failure with preserved ejection fraction COPD (chronic obstructive pulmonary disease) per chart, pt denies, states she does not see a pulm Hx of deep venous thrombosis per chart 40 years ago, pt. states does not remember History of cellulitis (10/2024) left groin/ abdomen- resolved Hx of fracture of femur (10/2024) left femur, due to a fall- states no surgery Acute blood loss anemia hx History of anesthesia reaction woke up in middle of an EGD once at [facility] Acute GI bleeding Oct 2023, hospitalized at [facility] > due to this, patient switched from Xarelto to Eliquis > no further bleeding issues Splenic infarct pt unaware Acute pancreatitis hx Pancreas cyst AV block with subsequent syncope - s/p dual chamber pacemaker ([employer]) - 2018 per cardio records History of COVID-19 (08/2021) 08/2021- pcr test [place], not hosp; no symptoms, was in the ER for another issue- pt. states "I never had covid" Metabolic alkalosis TRISTAN (dyspnea on exertion) "only if i have fluid build up"- pt. does not ambulate due to needing new prosthesis Severe mitral regurgitation Per patient, attempt for MitraClip ([facility]) was performed but unsuccessful (07/2021) (little improvement of regurgitation with MitraClip x2- procedure aborted Hx of gastric ulcer Neuropathy Hx of pancreatitis Chronic. Due to heavy alcohol consumption per records Anxiety and depression Hx of migraines Pacemaker Dual-chamber, implanted 2018 (high grade AVB/sinus node dysfunction), [employer], follows with Dr. Perez > last checked in last week GERD (gastroesophageal reflux disease) Hyponatremia Chronic issue- follows with nephrology - pt. denies seeing panel machine setter currently Chronic pain syndrome Tobacco use disorder Paroxysmal atrial fibrillation Eliquis/pacer - believes she may have had a cardioversion in [place] Surgical History Status post ORIF of fracture of ankle (2016) left ankle, had hardware in place, states had allergic reaction and later required amputation Hx of oral surgery (09/17/22) Debridement Necrotic Bone and Soft Tissue and Associated Infected Periodontally Infected Teeth to Allow Mitral Valve Replacement (Lower Jaw)(Not Applicable) - Ha Champion, DMD Hx of vascular surgery 11/2019, with dr maya, [facility], replaced 2 veins with bovine veins in Rt leg Bilateral femoral endarterectomy with iliac stent (2016) History of surgery (~07/30/21) Attempt for MitraClip ([facility]) was performed but unsuccessful (07/2021); currently being seen in [facility] for a trial for valve replacement History of esophagogastroduodenoscopy (EGD) History of cardiac cath (~04/24/21) 03/2021@ [facility] with Dr. Carbajal, no evidence of epicardial CAD - no stents- follows with dr. perez S/P angiogram of extremity right lower leg S/P femoral-popliteal bypass surgery History of amputation (2016) balta - LLE- had fractured ankle, had metal placed, then had allergy to metal and required amputation History of colonoscopy History of tooth extraction History of appendectomy Family History Unknown No problems noted. Father Family history of diabetes mellitus Breast cancer Diabetes Hypertension Mother Hypertension Other No family history of adverse response to anesthesia Social History Smoking Status: Current every day smoker Tobacco Type: Cigarettes Cigarettes Per Day: 1/2 PPD; Second Hand Exposure: No; Do You Dip or Chew Tobacco: No; Hx Alcohol Use: Yes Alcohol type: beer Alcohol Intake Frequency: 2-4 x/Month Hx Substance Use: No Preferred Language: Divehi Communication Ability: Effective Visual Impairment: No Limitations Correctional Nurse Required: No Beliefs That Will Affect Care: None marital status: Current Living Situation: Spouse current occupational status: disabled current occupation: Retired How many Children do You have: 1 Feels Safe at Home: Yes Diet: regular during the past year weight has: decreased > 10 lbs Assistive Devices: Bedside Commode, Hospital Bed, Prosthesis and Wheelchair Allergies Allergies Allergy/AdvReac Type Severity Reaction Status Date / Time adhesive Allergy Severe SEVERE Verified 08/22/25 15:34 SKIN IRRITATION latex Allergy Mild Rash Verified 08/22/25 15:34 amoxicillin AdvReac Severe LIVER Verified 08/22/25 15:34 FAILURE clavulanic acid AdvReac Severe LIVER Verified 08/22/25 15:34 FAILURE guanfacine AdvReac Intermediate BP PROBLEMS Verified 08/22/25 15:34 nifedipine AdvReac Intermediate BP PROBLEMS Verified 08/22/25 15:34 Home Meds Home Medications Medication Instructions Recorded Confirmed aspirin 81 mg tablet,delayed 81 mg PO QAM 12/19/19 08/22/25 release (Tj Low Dose Aspirin) amitriptyline 50 mg tablet 50 mg PO HS 09/11/22 08/22/25 metoprolol succinate 25 mg 25 mg PO BID 04/25/23 08/22/25 tablet,extended release 24 hr apixaban 5 mg tablet (Eliquis) 5 mg PO BID 12/31/23 08/22/25 ywaiec-[id number]-rxhuctx (pork) 1 cap PO UD 01/05/24 08/22/25 3,000-9,500-15,000 unit capsule,del rel (Creon) zolpidem 10 mg tablet (Ambien) 10 mg PO HS 01/05/24 08/22/25 pregabalin 300 mg capsule 300 mg PO QAM 11/11/24 08/22/25 bumetanide 2 mg tablet 2 mg PO QAM 02/28/25 08/22/25 clopidogrel 75 mg tablet (Plavix) 75 mg PO DAILY 07/25/25 08/22/25 oxycodone 5 mg tablet 10 mg PO Q6H PRN Pain 08/22/25 08/22/25 Previous Rx's Medication Instructions Recorded sennosides 8.6 mg-docusate sodium 2 tab PO QAM PRN constipation #60 04/18/23 50 mg tablet (Senokot-S) tabs pantoprazole 40 mg tablet,delayed 40 mg PO QAM #120 tabs 08/21/24 release (Protonix) sodium chloride 1,000 mg soluble 1,000 mg PO BID #180 tabs 09/04/24 tablet potassium chloride 20 mEq 40 meq (2 x 20 mEq) PO DAILY #180 02/28/25 tablet,extended release tabs docusate sodium 100 mg capsule 100 mg PO BID PRN constipation #60 08/03/25 caps ferrous sulfate 325 mg (65 mg 325 mg PO BIDM #60 tabs 08/03/25 iron) tablet,delayed release midodrine 5 mg tablet 5 mg PO TID@0800,1200,1700 #21 tabs 08/03/25 Results & Data (ED) Vital Signs Vital Signs - 24 hr 08/22/25 10:08 08/22/25 10:31 08/22/25 11:00 Temperature 36 C L Temperature Source Temporal Artery Scan Pulse Rate 73 69 68 Pulse Rate [Apical] Pulse Rate from SpO2 Sensor 72 Respiratory Rate 24 20 Respiratory Effort / Characteristics Respiratory Depth Blood Pressure 103/73 132/58 L Blood Pressure [Right Arm] Blood Pressure Mean 83 82 Blood Pressure Mean [Right Arm] Pulse Oximetry 96 92 Oxygen Delivery Method Room Air Room Air Oxygen Flow Rate Sepsis Recent Fever Within 48 Hours No Sepsis New/Unexplained Change in Mental Status No Sepsis Action Taken by Nursing No Action Required 08/22/25 12:00 08/22/25 12:51 08/22/25 13:00 Temperature Temperature Source Pulse Rate 71 69 76 Pulse Rate [Apical] Pulse Rate from SpO2 Sensor 68 74 81 Respiratory Rate 19 18 17 Respiratory Effort / Characteristics Respiratory Depth Blood Pressure 100/67 107/58 L 114/66 Blood Pressure [Right Arm] Blood Pressure Mean 78 74 82 Blood Pressure Mean [Right Arm] Pulse Oximetry 99 99 99 Oxygen Delivery Method Room Air Room Air Oxygen Flow Rate Sepsis Recent Fever Within 48 Hours Sepsis New/Unexplained Change in Mental Status Sepsis Action Taken by Nursing 08/22/25 13:41 08/22/25 13:42 08/22/25 14:00 Temperature Temperature Source Pulse Rate 81 76 Pulse Rate [Apical] 73 Pulse Rate from SpO2 Sensor 75 Respiratory Rate 18 16 16 Respiratory Effort / Characteristics Non-Labored Spontaneous Respiratory Depth Normal Blood Pressure 128/57 L 92/58 L Blood Pressure [Right Arm] 128/57 L Blood Pressure Mean 80 69 Blood Pressure Mean [Right Arm] 80 Pulse Oximetry 100 100 100 Oxygen Delivery Method Room Air Room Air Room Air Oxygen Flow Rate Sepsis Recent Fever Within 48 Hours Sepsis New/Unexplained Change in Mental Status Sepsis Action Taken by Nursing 08/22/25 14:30 Temperature Temperature Source Pulse Rate 73 Pulse Rate [Apical] Pulse Rate from SpO2 Sensor 77 Respiratory Rate 18 Respiratory Effort / Characteristics Respiratory Depth Blood Pressure 88/67 L Blood Pressure [Right Arm] Blood Pressure Mean 74 Blood Pressure Mean [Right Arm] Pulse Oximetry 100 Oxygen Delivery Method Nasal Cannula Oxygen Flow Rate 2 Sepsis Recent Fever Within 48 Hours Sepsis New/Unexplained Change in Mental Status Sepsis Action Taken by Nursing Laboratory Data 08/25/25 05:28 08/25/25 05:28 Lab Results 08/22/25 08/22/25 08/22/25 Range/Units 10:20 10:36 10:39 WBC 7.28 (4.8-10.8) K/ul RBC 2.37 L (4.20-5.40) M/uL Hgb 7.8 L (12.0-16.0) g/dL Hct 25.2 L (37.0-47.0) % MCV 106.3 H (80.0-100.0) fL MCH 32.9 (25.0-34.0) pg MCHC 31.0 L (32.0-36.0) g/dL RDW Std Deviation 86.3 H (36.4-46.3) fL RDW Coeff of Marlon 22.5 H (11.5-14.5) % Plt Count 190 (130-400) K/uL MPV 11.8 (9.4-12.4) fL Immature Gran % (Auto) 1.0 % Neut % (Auto) 71.2 % Lymph % (Auto) 18.4 % Hawkins % (Auto) 7.4 % Eos % (Auto) 1.2 % Baso % (Auto) 0.8 % Neut # (Auto) 5.18 (1.40-6.50) K/uL Lymph # (Auto) 1.34 (1.20-3.40) K/uL Hawkins # (Auto) 0.54 (0.11-0.59) K/uL Eos # (Auto) 0.09 (0.00-0.50) K/uL Baso # (Auto) 0.06 (0.00-0.20) K/uL Immature Gran # (Auto) 0.07 (0.01-0.20) K/uL Absolute Nucleated RBC 0.02 (0.00-0.12) K/uL Nucleated RBC % (auto) 0.3 % Polychromasia 2+ Anisocytosis Present Macrocytosis Present Tear Drop Cells 1+ Sodium 135 L (136-145) mmol/L Potassium 4.6 (3.5-5.1) mmol/L Chloride 102 (98-107) mmol/L Carbon Dioxide 25 (21-32) mmol/L Anion Gap 8 (3-11) BUN 19 (6-23) mg/dl Creatinine 0.92 (0.6-1.2) mg/dl Est Cr Clr Drug Dosing Not Reportable eGFR 69.10 BUN/Creatinine Ratio 20.7 H (10-20) Glucose 102 H (70-99(Fasting)) mg/dl Lactate 2.1 H* (0.4-2.0) mmol/L Calcium 8.9 (8.6-10.3) mg/dl Total Bilirubin 1.4 H (0.2-1.0) mg/dl AST 37 (13-39) U/L ALT 8 (7-52) U/L Alkaline Phosphatase 150 H (34-104) U/L Troponin I High Sens 6.7 (0-14) pg/ml Total Protein 6.6 (6.0-8.3) gm/dl Albumin 3.5 (3.4-5.0) gm/dl Globulin 3.1 (2.5-4.0) gm/dl Albumin/Globulin Ratio 1.1 (0.9-2) Lipase 9 L (11-82) U/L Blood Type O Positive Antibody Screen NEGATIVE Crossmatch See Detail Administered Medications Acetaminophen (Acetaminophen 325 Mg Tab) 650 mg PO Q4H PRN PRN Reason: pain/fever Stop: 09/21/25 14:55 Last Admin: 08/24/25 09:50 Dose: 650 mg Documented By: jennifer Amitriptyline HCl (Amitriptyline Hcl 50 Mg Tab) 50 mg PO HS ZACH Stop: 09/21/25 20:59 Last Admin: 08/24/25 20:31 Dose: 50 mg Documented By: Admin: 08/23/25 19:57 Dose: 50 mg Documented By: Admin: 08/22/25 20:41 Dose: 50 mg Documented By: NURY Apixaban (Apixaban 5 Mg Tablet) 5 mg PO BID ZACH Stop: 09/21/25 20:59 Last Admin: 08/22/25 20:41 Dose: 5 mg Documented By: NURY Aspirin (Aspirin 81 Mg Ectab) 81 mg PO QAM ZACH Stop: 09/22/25 08:59 Last Admin: 08/25/25 08:27 Dose: 81 mg Documented By: Admin: 08/24/25 08:30 Dose: 81 mg Documented By: jennifer Admin: 08/23/25 08:55 Dose: 81 mg Documented By: CINDY Bumetanide (Bumetanide 1 Mg Tab) 2 mg PO QAM [facility] Stop: 09/24/25 08:59 Last Admin: 08/25/25 08:25 Dose: 2 mg Documented By: KARLA Clopidogrel Bisulfate (Clopidogrel Bisulfate 75 Mg Tab) 75 mg PO DAILY ZACH Stop: 09/22/25 08:59 Last Admin: 08/25/25 08:27 Dose: 75 mg Documented By: Admin: 08/24/25 08:31 Dose: 75 mg Documented By: jennifer Admin: 08/23/25 08:55 Dose: 75 mg Documented By: CINDY Ferrous Sulfate (Ferrous Sulfate 325 Mg Tab) 325 mg PO DAILY ZACH Stop: 09/22/25 08:59 Last Admin: 08/25/25 08:28 Dose: 325 mg Documented By: Admin: 08/24/25 08:29 Dose: 325 mg Documented By: jennifer Admin: 08/23/25 08:55 Dose: 325 mg Documented By: CINDY Ceftriaxone Sodium (Rocephin) 1,000 mg in 50 mls @ 100 mls/hr IV Q24H ZACH Stop: 08/28/25 14:59 Last Admin: 08/25/25 14:52 Dose: 100 mls/hr Documented By: Infusion: 08/24/25 16:13 Dose: Infused Documented By: jennifer Admin: 08/24/25 15:31 Dose: 100 mls/hr Documented By: jennifer Infusion: 08/23/25 15:41 Dose: Infused Documented By: Admin: 08/23/25 15:05 Dose: 100 mls/hr Documented By: CINDY Metoprolol Succinate (Metoprolol Succ 25mg Ext Rel Tab) 25 mg PO BID [facility] Stop: 09/21/25 20:59 Last Admin: 08/25/25 08:28 Dose: 25 mg Documented By: Admin: 08/24/25 20:30 Dose: 25 mg Documented By: Admin: 08/24/25 08:29 Dose: 25 mg Documented By: jennifer Admin: 08/23/25 19:57 Dose: 25 mg Documented By: Admin: 08/23/25 09:00 Dose: Not Given Documented By: Admin: 08/22/25 20:40 Dose: Not Given Documented By: NURY Midodrine (Midodrine Hcl 2.5 Mg Tab) 5 mg PO TID@0800,1200,1700 [facility] Stop: 09/21/25 16:59 Last Admin: 08/25/25 12:29 Dose: 5 mg Documented By: Admin: 08/25/25 08:25 Dose: 5 mg Documented By: Admin: 08/24/25 17:19 Dose: 5 mg Documented By: jennifer Admin: 08/24/25 12:59 Dose: 5 mg Documented By: jennifer Admin: 08/24/25 08:29 Dose: 5 mg Documented By: jennifer Admin: 08/23/25 16:33 Dose: 5 mg Documented By: Admin: 08/23/25 13:50 Dose: 5 mg Documented By: Admin: 08/23/25 09:46 Dose: 5 mg Documented By: Admin: 08/22/25 16:22 Dose: 5 mg Documented By: SEAMUS Morphine Sulfate (Morphine Sulfate 2 Mg/Ml Carp) 2 mg IV Q3H PRN PRN Reason: Pain 6,7 Stop: 09/05/25 18:54 Last Admin: 08/25/25 12:30 Dose: 2 mg Documented By: Admin: 08/23/25 14:37 Dose: 2 mg Documented By: Admin: 08/22/25 19:37 Dose: 2 mg Documented By: NURY Morphine Sulfate (Morphine Sulfate 4 Mg/Ml 1 Ml Carp\\Vial) 4 mg IV Q3H PRN PRN Reason: Pain 8,9,10 Stop: 09/05/25 18:54 Last Admin: 08/25/25 14:43 Dose: 4 mg Documented By: Admin: 08/24/25 20:35 Dose: 4 mg Documented By: Admin: 08/24/25 14:38 Dose: 4 mg Documented By: jennifer Admin: 08/23/25 20:06 Dose: 4 mg Documented By: Admin: 08/23/25 09:04 Dose: 4 mg Documented By: CINDY Pantoprazole Sodium (Pantoprazole 40 Mg Tab) 40 mg PO QAM ZACH Stop: 09/22/25 08:59 Last Admin: 08/25/25 08:26 Dose: 40 mg Documented By: Admin: 08/24/25 08:29 Dose: 40 mg Documented By: jennifer Admin: 08/23/25 08:57 Dose: 40 mg Documented By: CINDY Pregabalin (Pregabalin 150 Mg Cap) 300 mg PO QAM ZACH Stop: 09/22/25 08:59 Last Admin: 08/25/25 08:32 Dose: 300 mg Documented By: Admin: 08/24/25 09:49 Dose: 300 mg Documented By: jennifer Admin: 08/23/25 09:46 Dose: 300 mg Documented By: CINDY Sodium Chloride (Sodium Chloride 1 Gm Tablet) 1 gm PO BID ZACH Stop: 09/21/25 20:59 Last Admin: 08/25/25 08:24 Dose: 1 gm Documented By: Admin: 08/24/25 20:30 Dose: 1 gm Documented By: Admin: 08/24/25 08:31 Dose: 1 gm Documented By: jennifer Admin: 08/23/25 19:59 Dose: 1 gm Documented By: Admin: 08/23/25 08:58 Dose: 1 gm Documented By: Admin: 08/22/25 20:41 Dose: 1 gm Documented By: NURY Zolpidem Tartrate (Zolpidem Tartrate 5 Mg Tab) 10 mg PO HS ZACH Stop: 09/21/25 20:59 Last Admin: 08/24/25 20:35 Dose: 10 mg Documented By: Admin: 08/23/25 20:06 Dose: 10 mg Documented By: Admin: 08/22/25 20:47 Dose: 10 mg Documented By: NURY Discontinued Medications Diazepam (Diazepam Inj 5 Mg/Ml 2 Ml Carp) 5 mg IV NOW STA Stop: 08/22/25 13:52 Last Admin: 08/22/25 14:51 Dose: 5 mg Documented By: SEAMUS Fentanyl Citrate (Fentanyl Citrate Pf 100 Mcg/2 Ml Vial) 50 mcg IV NOW ONE Stop: 08/22/25 10:25 Last Admin: 08/22/25 10:46 Dose: 50 mcg Documented By: DERRICK Ferrous Sulfate (Ferrous Sulfate 325 Mg Tab) 325 mg PO BIDM ZACH Stop: 09/21/25 18:59 Last Admin: 08/23/25 19:33 Dose: Not Given Documented By: Admin: 08/22/25 20:40 Dose: Not Given Documented By: NURY Acetaminophen (Ofirmev) 1,000 mg in 100 mls @ 400 mls/hr IV NOW STA Stop: 08/22/25 13:04 Last Infusion: 08/22/25 15:54 Dose: Infused Documented By: Admin: 08/22/25 13:03 Dose: 400 mls/hr Documented By: LOW Ceftriaxone Sodium (Rocephin) 1,000 mg in 50 mls @ 100 mls/hr IV NOW STA Stop: 08/22/25 15:12 Last Infusion: 08/22/25 15:54 Dose: Infused Documented By: Admin: 08/22/25 14:51 Dose: 100 mls/hr Documented By: SEAMUS Sodium Chloride (Nss) 1,000 mls @ 999 mls/hr IV .Q1H1M ONE Stop: 08/22/25 16:33 Last Infusion: 08/22/25 17:00 Dose: Infused Documented By: Admin: 08/22/25 15:51 Dose: 999 mls/hr Documented By: SEAMUS Ioversol (Optiray 320 100ml) 94 ml IV ONCE ONE Stop: 08/22/25 11:53 Last Admin: 08/22/25 11:52 Dose: 94 ml Documented By: LOR Ioversol (Optiray 320 125ml) 119 ml IV ONCE ONE Stop: 08/23/25 14:57 Last Admin: 08/23/25 14:56 Dose: 119 ml Documented By: CHLOÉ Lidocaine (Lidocaine 5% 1 Patch) 1 patch TD NOW STA Stop: 08/22/25 10:25 Last Admin: 08/22/25 10:47 Dose: 1 patch Documented By: CEF Miscellaneous (Remove Lidoderm Patch) 1 each N/A DAILY@2100 ZACH Stop: 09/21/25 20:59 Last Admin: 08/23/25 19:59 Dose: Not Given Documented By: Admin: 08/22/25 20:42 Dose: 1 each Documented By: NURY Miscellaneous (Patient's Height &/Or Weight Needed) 1 each N/A Q2H STA Stop: 08/22/25 19:04 Last Admin: 08/22/25 19:24 Dose: 1 each Documented By: NURY Morphine Sulfate (Morphine Sulfate 4 Mg/Ml 1 Ml Carp\\Vial) 4 mg IV NOW STA Stop: 08/22/25 12:51 Last Admin: 08/22/25 13:03 Dose: 4 mg Documented By: LOW Ondansetron HCl (Ondansetron Inj 2 Mg/Ml 2 Ml Vial) 4 mg IV NOW STA Stop: 08/22/25 10:25 Last Admin: 08/22/25 10:44 Dose: 4 mg Documented By: DERRICK Imaging Data Radiologist's Impression: Abdomen/Pelvis CT 08/22/25 10:[address] WITH IV CONTRAST CT DOSE: 989.59 mGy.cm HISTORY: abd and back pain, n/v, recent carotid surg TECHNIQUE: Multiaxial CT images of the abdomen and pelvis were performed following the IV administration of 112 cc of Optiray, A dose lowering technique was utilized adhering to the principles of ALARA. COMPARISON STUDY: 11/27/2024 FINDINGS: There is a very small right pleural effusion. ABDOMEN: There are numerous interval small masses and nodules throughout the liver, largest in the left hepatic lobe measures 2 cm. There are numerous enlarged lymph nodes at the abdomen and lower chest right pericardial region. Largest conglomerate lymph node mass measures 5 cm between the abdominal aorta and jalil hepatis region. There are pancreatic calcifications consistent with sequela of chronic pancreatitis. There are bilateral adrenal nodules 2 cm on the right and 1 cm on the left. The kidneys show no hydronephrosis. Stable small cyst lower left kidney. There are scattered atherosclerotic calcifications. No abdominal aortic aneurysm. Pelvis: Uterus and adnexa are grossly unremarkable. Urinary bladder is mildly distended. There is sigmoid diverticulosis. No acute diverticulitis. No bowel inflammation or obstruction seen. No free fluid or free air. 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 There is lumbar degenerative disc disease. No acute findings seen at the visualized osseous structures: IMPRESSION: 1. Interval diffuse liver metastatic disease, adrenal metastatic disease, and diffuse lymph node metastatic disease at the abdomen. 2. No other acute findings seen. Otherwise as described. ACT 112: Positive. There are findings on this exam that require communication between the performing entity and the patient following Patient Test Result Information Act ([place] Act 112) guidelines. The above report was generated using voice recognition software. It may contain grammatical, syntax or spelling errors. Electronically signed by: Viktor Mayorga M.D. 08/22/2025 12:49 PM Discharge Plan Visit Data Chief Complaint: Illness Stated Complaint: VOMITING, BACK PAIN, DOC REFERED, ABDOMINAL PAIN ED Provider: Regino Lewis Discharge Problem: Metastatic cancer, Chronic hypoxemic respiratory failure, Back pain, Acute urinary retention, Acute cystitis without hematuria Patient Disposition: Admitted As Inpatient Condition: Serious Discharge Instructions Interventions: ED Discharge Assessment Last Done: 08/22/25 18:06
[2025-08-22] MEDS: LIDOCAINE 5% 1 PATCH TD STA (10:47)
[2025-08-22 11:00] LABS: Hematocrit (blood only) 25.2 % (37.0-47.0); Hemoglobin 7.8 g/dL (12.0-16.0); Immature Granulocytes # (auto) 0.07 K/uL (0.01-0.20); Immature Granulocytes % (auto) 1.0 %; Mean Corpuscular Hemoglobin 32.9 pg (25.0-34.0); Mean Corpuscular Volume 106.3 fL (80.0-100.0); Platelet Count 190 K/uL (130-400); RDW Standard Deviation 86.3 fL (36.4-46.3); Red Blood Count 2.37 M/uL (4.20-5.40); White Blood Count 7.28 K/ul (4.8-10.8)
[2025-08-22 11:21] LABS: Alanine Aminotransferase 8 U/L (7-52); Albumin Globulin Ratio 1.1 (0.9-2); Albumin Level 3.5 gm/dl (3.4-5.0); Alkaline Phosphatase 150 U/L (34-104); Anion Gap 8 (3-11); Bilirubin,Total 1.4 mg/dl (0.2-1.0); Blood Urea Nitrogen 19 mg/dl (6-23); Calcium 8.9 mg/dl (8.6-10.3); Carbon Dioxide 25 mmol/L (21-32); Chloride 102 mmol/L (98-107); Globulin 3.1 gm/dl (2.5-4.0); Glucose 102 mg/dl (70-99(Fasting)); Lipase 9 U/L (11-82); Potassium 4.6 mmol/L (3.5-5.1); Sodium 135 mmol/L (136-145); Total Protein 6.6 gm/dl (6.0-8.3)
[2025-08-22 11:22] LABS: Anisocytosis Present; Macrocytosis Present; Polychromasia 2+; Tear Drop Cells 1+
[2025-08-22] MEDS: OPTIRAY 320 100ml IV ONE (11:52)
--- NOTE | 2025-08-22 12:50 | CT Scan Report ---
ABDOMEN AND PELVIS CT WITH IV CONTRAST CT DOSE: 989.59 mGy.cm HISTORY: abd and back pain, n/v, recent carotid surg TECHNIQUE: Multiaxial CT images of the abdomen and pelvis were performed following the IV administrat ion of 112 cc of Optiray, A dose lowering technique was utilized adhering to the principles of ALARA . COMPARISON STUDY: 11/27/2024 FINDINGS: There is a very small right pleural effusion. ABDOMEN: There are numerous interval small masses and nodules throughout the liver, largest in the le ft hepatic lobe measures 2 cm. There are numerous enlarged lymph nodes at the abdomen and lower chest right pericardial region. Largest conglomerate lymph node mass measures 5 cm between the abdominal a antionette and jalil hepatis region. There are pancreatic calcifications consistent with sequela of chronic pancreatitis. There are bilateral adrenal nodules 2 cm on the right and 1 cm on the left. The kidney s show no hydronephrosis. Stable small cyst lower left kidney. There are scattered atherosclerotic ca lcifications. No abdominal aortic aneurysm. Pelvis: Uterus and adnexa are grossly unremarkable. Urinary bladder is mildly distended. There is sig moid diverticulosis. No acute diverticulitis. No bowel inflammation or obstruction seen. No free flui d or free air. There is a fusiform aneurysm proximal right superficial femoral artery measuring 1.5 c m diameter, stable. There is lumbar degenerative disc disease. No acute findings seen at the visualiz ed osseous structures: IMPRESSION: 1. Interval diffuse liver metastatic disease, adrenal metastatic disease, and diffuse lymph node meta static disease at the abdomen. 2. No other acute findings seen. Otherwise as described. ACT 112: Positive. There are findings on this exam that require communication between the performing entity and the patient following Patient Test Result Information Act ([place] Act 112) guidelines. The above report was generated using voice recognition software. It may contain grammatical, syntax o r spelling errors. Electronically signed by: Viktor Mayorga M.D. 08/22/2025 12:49 PM
[2025-08-22] MEDS: ACETAMINOPHEN 1,000 MG/100 ML VIAL IV STA (13:03)
[2025-08-22] MEDS: MoRPHine SULFATE 4 MG/ML 1 ML CARP\\VIAL IV STA (13:03)
[2025-08-22 14:09] LABS: Appearance Urine Cloudy (Clear); Bacteria Urine Automated 4+ (None Seen); Epithelial Cell Urine Auto 0-2 /hpf (0-2); Glucose Urine UA Negative (Negative); RBC Urine Automated 0-2 /hpf (0-2); WBC Urine Automated >50 /hpf (0-5)
[2025-08-22] MEDS: cefTRIAXone SODIUM 1,000 MG/50 ML BAG IV STA (14:51)
[2025-08-22] MEDS ORDERED: ONDANSETRON INJ 2 MG/ML 2 ML VIAL IV PRN (14:56)
[2025-08-22] MEDS ORDERED: MELATONIN 3 MG TAB PO PRN (14:56)
[2025-08-22] MEDS ORDERED: POLYETHYLENE (MIRALAX) 17 GM PACK PO PRN (14:56)
--- NOTE | 2025-08-22 15:27 | History & Physical Report ---
<Statement entered by Eve Madden MD - 08/22/25 17:50> I have reviewed vital signs, chart notes, labs and imaging. I have personally seen, evaluated and examined the patient. I have also discussed the management of the patient with the JACLYN and I agree with the exam findings documented in the history and physical examination and the documented assessment and plan unless otherwise stated below. Anisha unfortunately has evidence of widespread metastatic disease based on CT of abdomen and pelvis with contrast. Recent chest x-ray on 07/30 with a right upper lobe/right paramediastinal mass this is suspicious for a metastatic lung cancer. We plan to obtain a chest CT with contrast anticipate pulmonary consult and discussion with IR about biopsy targets. She is aware that it is unlikely we could achieve any biopsies prior to next week because of the holiday. she does have some central to left-sided lower back pain for the last 3 days which seemed to start after she got out of the bathtub I think this is probably benign musculoskeletal pain she could have a metastasis however, however I do not see any signs or symptoms of cord compression and I think it is safe to wait until Wednesday for further imaging. She has a MRI compatible pacemaker but we will not have the necessary protocols in place until 08/24. She has had urinary retention and constipation following recent TCAR. No B/B incontienence, no numbness or tingling of perineal area or LEs. She is weaker than her usual self following the surgery but does not have any focal leg weakness. she is able to transfer herself with her RLE. On my exam sensation intact to LT both LE and RLE strength is 5/5 throughout except hip flexor is 4+/5, she has antigravity with her L hip flexor. Date of Service August 22, 2025 Assessment & Plan (1) Metastatic cancer to liver: (2) Iron deficiency anemia: (3) (HFpEF) heart failure with preserved ejection fraction: (4) Chronic atrial fibrillation: (5) UTI (urinary tract infection): Plan This is a 65 year old female with past medical history of chronic pancreatitis, tobacco use, COPD, PVD, recent stent placement of right carotid artery who presented to the ED on 08/22/2025 after an outpatient PCP visit for abdominal and back pain. While in the ED, a CTAP was found to have interval diffuse liver mets, adrenal mets, and diffuse lymph node mets at the abdomen, no other acute findings were seen. Hgb was low at 7.8. Lactate was elevated at 2.1. TB elevated at 1.4, Alk phos elevated at 150. AST/ALT WNL. Trop negative. Lipase WNL. UA positive & UC pending. In the ED, she was given Fentanyl, Morphine, Diazepam, Tylenol, Lidocaine patch, Zofran, and Rocephin. #Abdominal pain | Lumbar pain w/ ~ 1 week of abdominal pain that felt similar to episodes of pancreatitis & back pain that began after a slip in the bath tub. CTAP w/ diffuse metastatic disease including liver, adrenal glands, and lymph nodes. TB elevation of 1.4 on admission - likely secondary to liver mets. Lactate elevated at 2.1, IVF ordered. Trop neg; Lipase WNL Recent CXR 07/30 w/ a prominence in right upper mediastinum --> pt was to undergo CT scan next week but Chest CT w/w/o con ordered for 08/23. Pain control w/ scheduled Tylenol; Lidocaine patch for lumbar spine; & morphine for severe pain. Will eventually onc consult & bx to confirm origin of metastatic disease. 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 Hgb 7.8 on admission. Recently 7.8 earlier this month which appears below her baseline of 9-11 Iron panel, B12, Folate ordered for AM labs. #R carotid artery stenosis Recent TCAR w/ Dr. Maya on 08/01/2025 that required ICU stay following secondary to hypotension requiring pressors and subsequently discharged home on Midodrine TID. Continue ASA/Plavix #Hypotension BP mildly low on admission 97/67 1L Fluid bolus ordered Continue Midodrine TID #Chronic pancreatitis Abdominal pain may be secondary to underlying chronic pancreatitis Continue Creon supplement Pain regimen as above. #A fib Rate controlled on admission Continue Metoprolol & Eliquis #CHF Home regimen includes Bumex Echo from 07/19 - EF 55-60%; mod tricuspid regurg; mod mitral regurg. Hold Bumex until BP improves. Suspect will be able to resume on 08/24 Caution volume of IVF given during hospital stay. #Neuropathy - pregabalin #Mental health - Amitriptyline, Ambien #GERD - PPI DVT prophylaxis: Artemio Code: full Case was discussed with Dr. Madden at time of admission. Updated at bedside 08/22. History of Present Illness Primary Care Provider: Kat Morataya MD This is a 65 year old female with past medical history of chronic pancreatitis, tobacco use, COPD, PVD, recent stent placement of right carotid artery who presented to the ED on 08/22/2025 after an outpatient PCP visit for abdominal and back pain. Anisha was seen & examined this afternoon with her at bedside. She reports that she has had ongoing abdominal pain/back pain for at least one week. The patient reports her abdominal pain feels like previous episodes of pancreatitis. reports she started to complain of lumbar back pain after slipping out of the bath tub a few days ago. She states that she was supposed to get a chest CT scan next week to follow up on the abdominal CXR from her last hospital stay. She denies any CP, SOB, N/V, changes in bowels. She reports she has been having issues urinating and a caballero catheter was placed. Did discuss imaging findings with the patient and she does wish to pursue a further workup including a biopsy and chemotherapy if she were to be a candidate. While in the ED, a CTAP was found to have interval diffuse liver mets, adrenal mets, and diffuse lymph node mets at the abdomen, no other acute findings were seen. Hgb was low at 7.8. Lactate was elevated at 2.1. TB elevated at 1.4, Alk phos elevated at 150. AST/ALT WNL. Trop negative. Lipase WNL. UA positive & UC pending. In the ED, she was given Fentanyl, Morphine, Diazepam, Tylenol, Lidocaine patch, Zofran, and Rocephin. Code discussion did take place and she does confirm that she is a full code. Allergies Allergy/AdvReac Type Severity Reaction Status Date / Time adhesive Allergy Severe SEVERE Verified 08/22/25 15:34 SKIN IRRITATION latex Allergy Mild Rash Verified 08/22/25 15:34 amoxicillin AdvReac Severe LIVER Verified 08/22/25 15:34 FAILURE clavulanic acid AdvReac Severe LIVER Verified 08/22/25 15:34 FAILURE guanfacine AdvReac Intermediate BP PROBLEMS Verified 08/22/25 15:34 nifedipine AdvReac Intermediate BP PROBLEMS Verified 08/22/25 15:34 Home Medications Medication Instructions Recorded Confirmed Type aspirin 81 mg tablet,delayed 81 mg PO QAM 12/19/19 08/22/25 History release (Tj Low Dose Aspirin) amitriptyline 50 mg tablet 50 mg PO HS 09/11/22 08/22/25 History sennosides 8.6 mg-docusate sodium 2 tab PO QAM PRN constipation #60 04/18/23 08/22/25 Rx 50 mg tablet (Senokot-S) tabs metoprolol succinate 25 mg 25 mg PO BID 04/25/23 08/22/25 History tablet,extended release 24 hr apixaban 5 mg tablet (Eliquis) 5 mg PO BID 12/31/23 08/22/25 History dwbfvm-mlexeqzz-rdypirs (pork) 1 cap PO UD 01/05/24 08/22/25 History 3,000-9,500-15,000 unit capsule,del rel (Creon) zolpidem 10 mg tablet (Ambien) 10 mg PO HS 01/05/24 08/22/25 History pantoprazole 40 mg tablet,delayed 40 mg PO QAM #120 tabs 08/21/24 08/22/25 Rx release (Protonix) sodium chloride 1,000 mg soluble 1,000 mg PO BID #180 tabs 09/04/24 08/22/25 Rx tablet pregabalin 300 mg capsule 300 mg PO QAM 11/11/24 08/22/25 History bumetanide 2 mg tablet 2 mg PO QAM 02/28/25 08/22/25 History potassium chloride 20 mEq 40 meq (2 x 20 mEq) PO DAILY #180 02/28/25 08/22/25 Rx tablet,extended release tabs clopidogrel 75 mg tablet (Plavix) 75 mg PO DAILY 07/25/25 08/22/25 History docusate sodium 100 mg capsule 100 mg PO BID PRN constipation #60 08/03/25 08/22/25 Rx caps ferrous sulfate 325 mg (65 mg 325 mg PO BIDM #60 tabs 08/03/25 08/22/25 Rx iron) tablet,delayed release midodrine 5 mg tablet 5 mg PO TID@0800,1200,1700 #21 tabs 08/03/25 08/22/25 Rx oxycodone 5 mg tablet 10 mg PO Q6H PRN Pain 08/22/25 08/22/25 History Past Med/Surg History Problem List (Updated 08/22/25 @ 15:47 by Jazz Phan PA-C) Metastatic cancer to liver Acute blood loss as cause of postoperative anemia Stenosis of right internal carotid artery Hematuria Anasarca (Acute) Ischemia of right lower extremity Poor intravenous access Colitis (Acute) Metabolic acidosis Iron deficiency anemia Elevated lactic acid level (Acute) Leukocytosis (Acute) Shortness of breath (Acute) Anemia (Acute) Chronic hyponatremia (Acute) Pancreatic cyst Mandibular bony exostosis Carious teeth Periodontal disease Hyponatremia (HFpEF) heart failure with preserved ejection fraction Secondary to severe mitral regurgitation USP (current) use of anticoagulants (Acute) Chronic atrial fibrillation (Acute) On Eliquis Follows with Dr. Perez ([facility]) Mitral regurgitation COPD (chronic obstructive pulmonary disease) (Acute) Chronic pain syndrome Pacemaker (Acute) Smoker (Acute) HTN (hypertension) Atherosclerosis of artery of extremity with rest pain Stump neuralgia GERD (gastroesophageal reflux disease) Dyslipidemia Depression Anxiety PVD (peripheral vascular disease) S/p left BKA Medical History Hx MRSA infection (12/2024) per chart, pos mrsa nasal swab 10/2024; pos wound swab 12/2024 Stump neuralgia PVD (peripheral vascular disease) Poor intravenous access HTN (hypertension) Dyslipidemia History of colitis Anasarca (HFpEF) heart failure with preserved ejection fraction COPD (chronic obstructive pulmonary disease) per chart, pt denies, states she does not see a pulm Hx of deep venous thrombosis per chart 40 years ago, pt. states does not remember History of cellulitis (10/2024) left groin/ abdomen- resolved Hx of fracture of femur (10/2024) left femur, due to a fall- states no surgery Acute blood loss anemia hx History of anesthesia reaction woke up in middle of an EGD once at [facility] Acute GI bleeding Oct 2023, hospitalized at [facility] > due to this, patient switched from Xarelto to Eliquis > no further bleeding issues Splenic infarct pt unaware Acute pancreatitis hx Pancreas cyst AV block with subsequent syncope - s/p dual chamber pacemaker ([employer]) - 2018 per cardio records History of COVID-19 (08/2021) 08/2021- pcr test [place], not hosp; no symptoms, was in the ER for another issue- pt. states "I never had covid" Metabolic alkalosis TRISTAN (dyspnea on exertion) "only if i have fluid build up"- pt. does not ambulate due to needing new prosthesis Severe mitral regurgitation Per patient, attempt for MitraClip ([facility]) was performed but unsuccessful (07/2021) (little improvement of regurgitation with MitraClip x2- procedure aborted Hx of gastric ulcer Neuropathy Hx of pancreatitis Chronic. Due to heavy alcohol consumption per records Anxiety and depression Hx of migraines Pacemaker Dual-chamber, implanted 2018 (high grade AVB/sinus node dysfunction), [email or web address], follows with Dr. Perez > last checked in last week GERD (gastroesophageal reflux disease) Hyponatremia Chronic issue- follows with nephrology - pt. 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 Chronic pain syndrome Tobacco use disorder Paroxysmal atrial fibrillation Eliquis/pacer - believes she may have had a cardioversion in [place] Surgical History Status post ORIF of fracture of ankle (2016) left ankle, had hardware in place, states had allergic reaction and later required amputation Hx of oral surgery (09/17/22) Debridement Necrotic Bone and Soft Tissue and Associated Infected Periodontally Infected Teeth to Allow Mitral Valve Replacement (Lower Jaw)(Not Applicable) - Ha Champion, DMD Hx of vascular surgery 11/2019, with dr maya, [facility], replaced 2 veins with bovine veins in Rt leg Bilateral femoral endarterectomy with iliac stent (2016) History of surgery (~07/30/21) Attempt for MitraClip ([facility]) was performed but unsuccessful (07/2021); currently being seen in [facility] for a trial for valve replacement History of esophagogastroduodenoscopy (EGD) History of cardiac cath (~04/24/21) 03/2021@ [facility] with Dr. Carbajal, no evidence of epicardial CAD - no stents- follows with dr. perez S/P angiogram of extremity right lower leg S/P femoral-popliteal bypass surgery History of amputation (2016) bal[place] - LLE- had fractured ankle, had metal placed, then had allergy to metal and required amputation History of colonoscopy History of tooth extraction History of appendectomy Family History Unknown No problems noted. 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 Extremities: Moves all extremities, no edema; tenderness to palpation of lumbar spine on lateral muscle region Neuro: A&O x3 Skin: intact, no lesions noted Results & Data Results & Data Vital Signs (Past 12 Hours) Vital Signs Temp Pulse Pulse Resp BP BP Pulse Ox 08/22/25 13:41 73 18 128/57 L 100 08/22/25 12:00 71 19 100/67 99 08/22/25 11:00 68 20 132/58 L 92 08/22/25 10:31 69 08/22/25 10:08 36 C L 73 24 103/73 96 O2 Del Method 08/22/25 13:41 Room Air 08/22/25 12:00 08/22/25 11:00 Room Air 08/22/25 10:31 08/22/25 10:08 Room Air PG Care Time/CCT Total # of Minutes Spent Total Time Spent with Patient: Total time spent is greater than 50% in coordination of care (as documented) at patient's floor/unit and/or counseling patient: Coding Level of Care Code 04716 INT INP/OBS CARE MIN Diagnoses Metastatic cancer to liver C78.7 Iron deficiency anemia D50.9 (HFpEF) heart failure with preserved ejection fraction I50.30 Chronic atrial fibrillation I48.20 UTI (urinary tract infection) N39.0
[2025-08-22] MEDS: SODIUM CHLORIDE 0.9% 1,000 ML IV ONE (15:51)
[2025-08-22] MEDS: MIDODRINE HCL 2.5 MG TAB PO SCH (16:22)
--- NOTE | 2025-08-22 18:57 | Electrocardiogram Report ---
Test Reason : Blood Pressure : */* mmHG Vent. Rate : 76 BPM Atrial Rate : * BPM P-R Int : * ms QRS Dur : 78 ms QT Int : 426 ms P-R-T Axes : * 88 -77 degrees QTcB Int : 479 ms Atrial fibrillation with frequent ventricular-paced complexes Abnormal ECG When compared with ECG of 30-Jul-2025 11:52, Vent. rate has increased by 7 bpm Confirmed by Aidan Merchant ([id number]) on 08/22/2025 6:56:58 PM Referred By: REFERRED SELF Confirmed By: Aidan Merchant
[2025-08-22] MEDS: Patient's HEIGHT &/or WEIGHT Needed STA (19:24)
[2025-08-22] MEDS: MoRPHine SULFATE 2 MG/ML CARP IV PRN (19:37)
[2025-08-22] MEDS: METOPROLOL SUCC 25MG EXT REL TAB PO SCH (20:40)
[2025-08-22] MEDS: FERROUS SULFATE 325 MG TAB PO SCH (20:40)
[2025-08-22] MEDS: SODIUM CHLORIDE 1 GM TABLET PO SCH (20:41)
[2025-08-22] MEDS: AMITRIPTYLINE HCL 50 MG TAB PO SCH (20:41)
[2025-08-22] MEDS: APIXABAN 5 MG TABLET PO SCH (20:41)
[2025-08-22] MEDS: REMOVE LIDODERM PATCH SCH (20:42)
[2025-08-22] MEDS: ZOLPIDEM TARTRATE 5 MG TAB PO SCH (20:47)
[2025-08-23 07:27] LABS: Hematocrit (blood only) 21.5 % (37.0-47.0); Hemoglobin 6.6 g/dL (12.0-16.0); Mean Corpuscular Hemoglobin 33.7 pg (25.0-34.0); Mean Corpuscular Volume 109.7 fL (80.0-100.0); Platelet Count 157 K/uL (130-400); RDW Standard Deviation 88.9 fL (36.4-46.3); Red Blood Count 1.96 M/uL (4.20-5.40); White Blood Count 7.85 K/ul (4.8-10.8)
[2025-08-23 07:57] LABS: Alanine Aminotransferase 7.0 U/L (7-52); Albumin Globulin Ratio 1.2 (0.9-2); Albumin Level 3.3 gm/dl (3.4-5.0); Alkaline Phosphatase 137.0 U/L (34-104); Anion Gap 6.0 (3-11); Bilirubin,Total 1.2 mg/dl (0.2-1.0); Blood Urea Nitrogen 17.0 mg/dl (6-23); Calcium 8.5 mg/dl (8.6-10.3); Carbon Dioxide 25.0 mmol/L (21-32); Chloride 105.0 mmol/L (98-107); Creatinine Clr Calc Pharmacy 53.5 ml/min; Globulin 2.8 gm/dl (2.5-4.0); Glucose 116.0 mg/dl (70-99(Fasting)); Iron 170.0 mcg/dl (35-150); Magnesium 2.0 mg/dl (1.7-2.4); Potassium 4.7 mmol/L (3.5-5.1); Sodium 136.0 mmol/L (136-145); Total Iron Binding Cap Calc 342.0 mcg/dl (250-450); Total Protein 6.1 gm/dl (6.0-8.3); Transferrin 244.0 mg/dl (200-360); Transferrin (FE) Percent Satur 50.0 % (15-50)
[2025-08-23] MEDS ORDERED: SODIUM CHLORIDE 0.9% 100 ML IV PRN (08:02)
[2025-08-23 08:05] LABS: Folate (Folic Acid),Ser orPlas 6.02 ng/ml (>5.38)
[2025-08-23 08:06] LABS: Vitamin B12 1446.0 pg/ml (180-914)
[2025-08-23] MEDS: CLOPIDOGREL BISULFATE 75 MG TAB PO SCH (08:55)
[2025-08-23] MEDS: FERROUS SULFATE 325 MG TAB PO SCH (08:55)
[2025-08-23] MEDS: ASPIRIN 81 MG ECTAB PO SCH (08:55)
[2025-08-23] MEDS: MoRPHine SULFATE 4 MG/ML 1 ML CARP\\VIAL IV PRN (09:04)
[2025-08-23] MEDS: PREGABALIN 150 MG CAP PO SCH (09:46)
--- NOTE | 2025-08-23 12:50 | Hospitalist Progress Note ---
Date of Service August 23, 2025 Assessment & Plan (1) Metastatic cancer to liver: (2) Iron deficiency anemia: (3) (HFpEF) heart failure with preserved ejection fraction: (4) Chronic atrial fibrillation: (5) UTI (urinary tract infection): Plan This is a 65 year old female with past medical history of chronic pancreatitis, tobacco use, COPD, PVD, recent stent placement of right carotid artery who presented to the ED on 08/22/2025 after an outpatient PCP visit for abdominal and back pain. While in the ED, a CTAP was found to have interval diffuse liver mets, adrenal mets, and diffuse lymph node mets at the abdomen, no other acute findings were seen. Hgb was low at 7.8. Lactate was elevated at 2.1. TB elevated at 1.4, Alk phos elevated at 150. AST/ALT WNL. Trop negative. Lipase WNL. UA positive & UC pending. In the ED, she was given Fentanyl, Morphine, Diazepam, Tylenol, Lidocaine patch, Zofran, and Rocephin. #Metastatic Cancer with unknown origin suspect primary origin lung CTAP w/ diffuse metastatic disease including liver, adrenal glands, & lymph nodes Chest CTA significant for 9.5cm right perihilar/suprahilar paramediastinal mass. New from 11/27/2024. Invades mediastinum. Should be considered neoplastic until proven otherwise. Mass encases R upper lobe bronchovascular structures w/ post- obstructive pneumonitis in right upper lobe. Bulky supraclavicular, mediastinal, & upper abd LAD. R supraclavicular rich aggregate would be easily amenable to percutaneous tissue sampling. Pain control w/ scheduled Tylenol; Lidocaine patch for lumbar spine; & morphine for severe pain. Plan for Lumbar MRI on 08/24 to assess low back pain. Suspect MSK in origin but will have to rule out spinal mets. Will discuss with IR on 08/24 regarding biopsy timing of lymph node. #UTI UA + on admission, No leukocytosis; pt w/ complaints of difficulty urinating UC + for E. Coli, sensitivities pending Torres placed Continue IV Rocephin #Anemia hx of NETTIE, on PO iron outpatient. Hgb 7.8 on admission. dropped to 6.6 PRBC consent obtained and 1 unit given 08/23 w/ improvement of hgb to 8.2 following Iron does appear slightly elevated at 170; remainder of panel WNL --> can reduce to daily PO iron supplementation B12 elevated at 1446 & Folate WNL. #R carotid artery stenosis Recent TCAR w/ Dr. Maya on 08/01/2025 that required ICU stay following secondary to hypotension requiring pressors and subsequently discharged home on Midodrine TID. Continue ASA/Plavix #Hypotension BP mildly low on admission 97/67 1L Fluid bolus ordered Continue Midodrine TID #Chronic pancreatitis Abdominal pain may be secondary to underlying chronic pancreatitis Continue Creon supplement Pain regimen as above. #A fib Rate controlled on admission Continue Metoprolol & Eliquis #CHF Home regimen includes Bumex Echo from 07/19 - EF 55-60%; mod tricuspid regurg; mod mitral regurg. Hold Bumex until BP improves. Caution volume of IVF given during hospital stay. #Neuropathy - pregabalin #Mental health - Amitriptyline, Ambien #GERD - PPI DVT prophylaxis: Eliqucuba Code: full Updated at bedside 08/23 Admission and Anticipated Discharge Date Admission Date: August 22, 2025 Supervising Physician Co-Signing Physician Notes chart reviewed and case d/w Edmundo Phan PA-C. as above Tyson Lancaster was seen & examined this afternoon with her at bedside. She denied any complaints today, reports she has been sleeping most of afternoon. Physical Exam Physical Exam: General: NAD, VS: BP 96/65; P82; R18; T36.4C Resp: normal respiratory effort Extremities: no edema Neuro: A&O x3 Skin: intact, no lesions noted Results & Data Results & Data Vital Signs (Past 12 Hours) Vital Signs Temp Pulse Pulse Resp BP BP Pulse Ox 08/23/25 11:30 36.5 C 75 16 101/66 95 08/23/25 11:01 36.6 C 83 16 121/72 91 08/23/25 10:35 36.6 C 83 18 103/68 94 08/23/25 10:14 36.6 C 102 H 16 127/63 08/23/25 08:00 08/23/25 07:15 36.5 C 82 18 105/80 O2 Del Method 08/23/25 11:30 08/23/25 11:01 08/23/25 10:35 08/23/25 10:14 08/23/25 08:00 Room Air 08/23/25 07:15 Room Air PG Care Time/CCT Total # of Minutes Spent Total Time Spent with Patient: Total time spent is greater than 50% in coordination of care (as documented) at patient's floor/unit and/or counseling patient: Coding Level of Care Code 83999 SUB INP/OBS CARE 3/50MIN Diagnoses Metastatic cancer to liver C78.7 Iron deficiency anemia D50.9 (HFpEF) heart failure with preserved ejection fraction I50.30 Chronic atrial fibrillation I48.20 UTI (urinary tract infection) N39.0
[2025-08-23 13:30] LABS: Hematocrit (blood only) 25.5 % (37.0-47.0); Hemoglobin 8.2 g/dL (12.0-16.0)
[2025-08-23] MEDS: OPTIRAY 320 125ml IV ONE (14:56)
[2025-08-23] MEDS: cefTRIAXone SODIUM 1,000 MG/50 ML BAG IV SCH (15:05)
--- NOTE | 2025-08-23 16:03 | CT Scan Report ---
CT ANGIOGRAM OF THE CHEST CLINICAL HISTORY: Lung mass. COMPARISON STUDY: Chest CT dated 11/27/2024. Chest x-ray dated 07/30/2005. TECHNIQUE: Following the IV administration of 119 cc of Optiray 320, CT angiogram of the chest was pe rformed from the thoracic inlet to the upper abdomen utilizing the dissection protocol. Images are re viewed in the axial, sagittal, and coronal planes. 3-D MIPS images are created and assessed. IV contr ast was administered without complication. A dose lowering technique was utilized adhering to the pr inciples of SABA. The examination is degraded by motion artifact, streak artifact from the left arm which could not be elevated above the chest, and suboptimal positioning of the patient within the CT gantry. CT DOSE: 855.51 mGy.cm FINDINGS: Thyroid: Imaged portions of the thyroid gland are normal in size and attenuation. Thoracic aorta: There is atherosclerotic calcification of the thoracic aorta, which is normal in elda kallie and demonstrates standard 3-vessel arch anatomy. No dissection is seen. 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 Mild stenosis at the origins of the left common carotid and left subclavian arteries. Pulmonary vasculature: The main pulmonary arteries are mildly dilated suggesting pulmonary artery hyp ertension. There are no filling defects within the main, lobar, or segmental pulmonary emboli to deon kacey pulmonary embolus. Heart: A pacemaker is seen in the left chest wall. The heart is enlarged and without pericardial effu nadege. There is coronary artery atherosclerosis. Lungs and pleural spaces: Evaluation of the lung parenchyma is degraded by motion artifact. There is a [id number]-savzrgsn right pleural effusion. No pleural fluid is seen on the left. There is a large ri ght hilar/suprahilar paramediastinal mass. This measures approximately 8.5 x 9.5 x 5.5 cm in aggregat e dimension as seen on image #60. This is new from 11/27/2024. This encases the right upper lobe bronch ovascular structure with post obstructive pneumonitis throughout the right upper lung. There is left basilar atelectasis. A 5 mm left apical nodule on image #35 is unchanged. Lower neck: There is bulky supraclavicular lymphadenopathy, right side greater than left. A right sup raclavicular rich aggregate on image #17 measures approximately 5.5 x 3 cm in aggregate dimension Mediastinum: The large right hilar mass invades the right aspect of the mediastinum extending the sub carinal region. There is bulky mediastinal lymphadenopathy. An anterior mediastinal node on image #91 measures 3.3 x 3.0 cm. A large right peritracheal node on image #56 measures 5.2 x 2.9 cm. Prevascul ar nodes measure up to 1.3 cm in short axis. Jocelin: There are calcified right hilar nodes. Note that the right hilum is largely obscured. No hilar adenopathy seen on the left. Axillae: There is no axillary lymphadenopathy. Upper abdomen: There are calcified granulomas noted in the spleen. Bulky lymphadenopathy is seen in t he upper abdomen. A portacaval node is partially imaged on image #233 and measures 4.2 x 3.0 cm. Ther e are enlarged gastrohepatic nodes. The largest is seen on image #211 and measures 2.2 x 1.8 cm. Ther e are also mildly enlarged retrocrural lymph nodes. Nodular thickening of the adrenal glands is simil ar to previous. An enlarged right cardiophrenic node on image #179 measures 1.4 x 1.1 cm. Small nodul es and trace ascitic fluid are seen along the right posterior lobe of the liver. The liver is cirrhot ic in morphology and heterogeneous in attenuation. Skeletal structures: The skeletal structures are osteopenic. Degenerative change and mild kyphoscolio sis is noted in the thoracic spine. No lytic or blastic bony lesions are seen. IMPRESSION: 1. Unremarkable CT angiogram of the thoracic aorta noting advanced atherosclerotic change. 2. 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 3. There is no evidence of pulmonary embolus in the main, lobar, or segmental pulmonary arteries. 4. Cardiomegaly. 5. There is an approximately 9.5 cm right perihilar/suprahilar paramediastinal mass. This is new from 11/27/2024 and invades the mediastinum. This should be considered neoplastic until proven otherwise. 6. The mass encases right upper lobe bronchovascular structures with postobstructive pneumonitis in t he right upper lobe. 7. There is bulky supraclavicular, mediastinal, and upper abdominal lymphadenopathy. The right suprac lavicular rich aggregate would be easily amenable to percutaneous tissue sampling. 8. Small to moderate right pleural effusion. 9. Additional findings as above. ACT 112: Positive. There are findings on this exam that require communication between the performing entity and the patient following Patient Test Result Information Act ([place] Act 112) guidelines. Electronically signed by: Angus Marte M.D. 08/23/2025 4:02 PM
[2025-08-24 06:31] LABS: Hematocrit (blood only) 26.2 % (37.0-47.0); Hemoglobin 8.4 g/dL (12.0-16.0); Mean Corpuscular Hemoglobin 33.2 pg (25.0-34.0); Mean Corpuscular Volume 103.6 fL (80.0-100.0); Platelet Count 154 K/uL (130-400); RDW Standard Deviation 90.2 fL (36.4-46.3); Red Blood Count 2.53 M/uL (4.20-5.40); White Blood Count 10.14 K/ul (4.8-10.8)
[2025-08-24 06:48] LABS: Anion Gap 9.0 (3-11); Blood Urea Nitrogen 15.0 mg/dl (6-23); Calcium 8.9 mg/dl (8.6-10.3); Carbon Dioxide 22.0 mmol/L (21-32); Chloride 104.0 mmol/L (98-107); Creatinine Clr Calc Pharmacy 47.7 ml/min; Glucose 125.0 mg/dl (70-99(Fasting)); Potassium 4.6 mmol/L (3.5-5.1); Sodium 135.0 mmol/L (136-145)
[2025-08-24] MEDS: ACETAMINOPHEN 325 MG TAB PO PRN (09:50)
--- NOTE | 2025-08-24 11:28 | Hospitalist Progress Note ---
Date of Service August 24, 2025 Assessment & Plan (1) Metastatic cancer to liver: (2) Iron deficiency anemia: (3) (HFpEF) heart failure with preserved ejection fraction: (4) Chronic atrial fibrillation: (5) UTI (urinary tract infection): Plan This is a 65 year old female with past medical history of chronic pancreatitis, tobacco use, COPD, PVD, recent stent placement of right carotid artery who presented to the ED on 08/22/2025 after an outpatient PCP visit for abdominal and back pain. #Metastatic Cancer with unknown origin suspect primary origin lung CTAP w/ diffuse metastatic disease including liver, adrenal glands, & lymph nodes Chest CTA significant for 9.5cm right perihilar/suprahilar paramediastinal mass. New from 11/27/2024. Invades mediastinum. Should be considered neoplastic until proven otherwise. Mass encases R upper lobe bronchovascular structures w/ post- obstructive pneumonitis in right upper lobe. Bulky supraclavicular, mediastinal, & upper abd LAD. R supraclavicular rich aggregate would be easily amenable to percutaneous tissue sampling. Pain control w/ scheduled Tylenol; Lidocaine patch for lumbar spine; & morphine for severe pain. Due to holiday, Lumbar MRI for low back pain & discussion w/ IR for lymph node biopsy cannot take place until Wednesday, 08/27 Oncology consulted, appreciate recommendations. #UTI UA + on admission, No leukocytosis; pt w/ complaints of difficulty urinating on admission, caballero placed. UC + for E. Coli, sensitivities reviewed Continue IV Rocephin through 08/28; consider void trial after abx completion. #Anemia hx of NETTIE, on PO iron outpatient. Hgb 7.8 on admission. dropped to 6.6 on 08/23, s/p 1 Unit PRBCs, now stable at 8.4. Iron does appear slightly elevated at 170; remainder of panel WNL --> can reduce to daily PO iron supplementation B12 elevated at 1446 & Folate WNL. Eliquis on hold secondary to acute hgb drop, will remain on hold until after bx has been obtained. #R carotid artery stenosis Recent TCAR w/ Dr. Maya on 08/01/2025 that required ICU stay following secondary to hypotension requiring pressors and subsequently discharged home on Midodrine TID. Continue ASA/Plavix #Hypotension BP mildly low on admission 97/67 1L Fluid bolus ordered Continue Midodrine TID #Chronic pancreatitis Abdominal pain may be secondary to underlying chronic pancreatitis Continue Creon supplement Pain regimen as above. #A fib Rate controlled on admission Continue Metoprolol #CHF Home regimen includes Bumex, resume 08/25 Echo from 07/19 - EF 55-60%; mod tricuspid regurg; mod mitral regurg Caution volume of IVF given during hospital stay. #Neuropathy - pregabalin #Mental health - Amitriptyline, Ambien #GERD - PPI DVT prophylaxis: Hold chemical in the setting of upcoming bx. Code: full Updated at bedside 08/24 Admission and Anticipated Discharge Date Admission Date: August 22, 2025 Supervising Physician Co-Signing Physician Notes chart reviewed and case d/w K NOREEN Phan. as above Subjective Anisha was seen & examined this afternoon with her at bedside. Anisha reports low back pain. She was eating at time of encounter. Scan results discussed with the patient & . Physical Exam Physical Exam: General: NAD, VS: BP 137/78; P83; R16; T36.7C Resp: normal respiratory effort Extremities:no edema Neuro: A&O x3 Skin: intact, no lesions noted Results & Data Results & Data Vital Signs (Past 12 Hours) Vital Signs Temp Pulse Resp BP Pulse Ox O2 Del Method 08/24/25 10:16 Room Air 08/24/25 07:50 36.7 C 83 16 137/78 92 Room Air PG Care Time/CCT Total # of Minutes Spent Total Time Spent with Patient: Total time spent is greater than 50% in coordination of care (as documented) at patient's floor/unit and/or counseling patient: Coding Level of Care Code 71218 SUB INP/OBS CARE 2/35MIN Diagnoses Metastatic cancer to liver C78.7 Iron deficiency anemia D50.9 (HFpEF) heart failure with preserved ejection fraction I50.30 Chronic atrial fibrillation I48.20 UTI (urinary tract infection) N39.0
[2025-08-25 06:20] LABS: Hematocrit (blood only) 26.7 % (37.0-47.0); Hemoglobin 8.3 g/dL (12.0-16.0); Mean Corpuscular Hemoglobin 33.3 pg (25.0-34.0); Mean Corpuscular Volume 107.2 fL (80.0-100.0); Platelet Count 146 K/uL (130-400); RDW Standard Deviation 97.8 fL (36.4-46.3); Red Blood Count 2.49 M/uL (4.20-5.40); White Blood Count 11.75 K/ul (4.8-10.8)
[2025-08-25 07:08] LABS: Anion Gap 8.0 (3-11); Blood Urea Nitrogen 15.0 mg/dl (6-23); Calcium 9.0 mg/dl (8.6-10.3); Carbon Dioxide 23.0 mmol/L (21-32); Chloride 105.0 mmol/L (98-107); Creatinine Clr Calc Pharmacy 47.7 ml/min; Glucose 117.0 mg/dl (70-99(Fasting)); Potassium 4.7 mmol/L (3.5-5.1); Sodium 136.0 mmol/L (136-145)
[2025-08-25] MEDS: BUMETANIDE 1 MG TAB PO SCH (08:25)
--- NOTE | 2025-08-25 11:07 | Hospitalist Progress Note ---
Date of Service August 25, 2025 Assessment & Plan (1) Metastatic cancer to liver: (2) Iron deficiency anemia: (3) (HFpEF) heart failure with preserved ejection fraction: (4) Chronic atrial fibrillation: Plan This is a 65 year old female with past medical history of chronic pancreatitis, tobacco use, COPD, PVD, recent stent placement of right carotid artery who presented to the ED on 08/22/2025 after an outpatient PCP visit for abdominal and back pain. #Metastatic Cancer with unknown origin suspect primary origin lung CTAP w/ diffuse metastatic disease including liver, adrenal glands, & lymph nodes Chest CTA significant for 9.5cm right perihilar/suprahilar paramediastinal mass. New from 11/27/2024. Invades mediastinum. Should be considered neoplastic until proven otherwise. Mass encases R upper lobe bronchovascular structures w/ post-obstructive pneumonitis in right upper lobe. Bulky supraclavicular, mediastinal, & upper abd LAD. R supraclavicular rich aggregate would be easily amenable to percutaneous tissue sampling. Pain control w/ scheduled Tylenol; Lidocaine patch for lumbar spine; & morphine for severe pain. Due to holiday, Lumbar MRI for low back pain & discussion w/ IR for lymph node biopsy cannot take place until Wednesday, 08/27 Oncology consulted, appreciate recommendations. #UTI UA + on admission, No leukocytosis; pt w/ complaints of difficulty urinating on admission, caballero placed. UC + for E. Coli, sensitivities reviewed Continue IV Rocephin through 08/28; consider void trial after abx completion. #Anemia hx of NETTIE, on PO iron outpatient. Hgb 7.8 on admission. dropped to 6.6 on 08/23, s/p 1 Unit PRBCs, now stable at 8.3 Iron does appear slightly elevated at 170; remainder of panel WNL --> can reduce to daily PO iron supplementation B12 elevated at 1446 & Folate WNL. Eliquis on hold secondary to acute hgb drop, will remain on hold until after bx has been obtained. #R carotid artery stenosis Recent TCAR w/ Dr. Maya on 08/01/2025 that required ICU stay following secondary to hypotension requiring pressors and subsequently discharged home on Midodrine TID. Continue ASA/Plavix #Hypotension BP mildly low on admission 97/67 Continue Midodrine TID Continue to monitor BP. #Chronic pancreatitis Abdominal pain may be secondary to underlying chronic pancreatitis Continue Creon supplement Pain regimen as above. #A fib Rate controlled on admission Continue Metoprolol #CHF Home regimen includes Bumex, resume 08/25 Echo from 07/19 - EF 55-60%; mod tricuspid regurg; mod mitral regurg Caution volume of IVF given during hospital stay. #Neuropathy - pregabalin #Mental health - Amitriptyline, Ambien #GERD - PPI DVT prophylaxis: Hold chemical in the setting of upcoming bx. Code: full Admission and Anticipated Discharge Date Admission Date: August 22, 2025 Supervising Physician Co-Signing Physician Notes The patient was not seen by me. The chart was reviewed. Case discussed with MAYI Parker. Agree with assessment and plan Subjective Anisha was seen & examined this afternoon. She reports low back pain, worse with lying flat on her back but not as severe when lying on her side. Aside from this pain, she denies any additional complaints. Physical Exam Physical Exam: General: NAD, VS: BP 147/70; P82; R16; T36.6C Resp: normal respiratory effort Extremities: Moves all extremities Neuro: A&O x3 Skin: intact, no lesions noted Results & Data Results & Data Vital Signs (Past 12 Hours) Vital Signs Temp Pulse Resp BP Pulse Ox O2 Del Method 08/25/25 07:54 Room Air 08/25/25 07:17 36.6 C 74 18 153/68 H 95 Room Air PG Care Time/CCT Total # of Minutes Spent Total Time Spent with Patient: Total time spent is greater than 50% in coordination of care (as documented) at patient's floor/unit and/or counseling patient: Coding Level of Care Code 69269 SUB INP/OBS CARE 2/35MIN Diagnoses Metastatic cancer to liver C78.7 Iron deficiency anemia D50.9 (HFpEF) heart failure with preserved ejection fraction I50.30 Chronic atrial fibrillation I48.20
[2025-08-26 06:04] LABS: Hematocrit (blood only) 27.2 % (37.0-47.0); Hemoglobin 8.6 g/dL (12.0-16.0); Mean Corpuscular Hemoglobin 33.6 pg (25.0-34.0); Mean Corpuscular Volume 106.3 fL (80.0-100.0); Platelet Count 114 K/uL (130-400); RDW Standard Deviation 91.6 fL (36.4-46.3); Red Blood Count 2.56 M/uL (4.20-5.40); White Blood Count 11.66 K/ul (4.8-10.8)
[2025-08-26 06:29] LABS: Anion Gap 9.0 (3-11); Blood Urea Nitrogen 17.0 mg/dl (6-23); Calcium 8.9 mg/dl (8.6-10.3); Carbon Dioxide 28.0 mmol/L (21-32); Chloride 98.0 mmol/L (98-107); Creatinine Clr Calc Pharmacy 43.9 ml/min; Glucose 101.0 mg/dl (70-99(Fasting)); Potassium 3.7 mmol/L (3.5-5.1); Sodium 135.0 mmol/L (136-145)
[2025-08-26] MEDS: POTASSIUM CHLORIDE CRTAB 20 MEQ TABCR PO SCH (08:41)
[2025-08-26] MEDS: PANCREAZE (LIPASE 4,200U) CAP PO PRN (08:52)
--- NOTE | 2025-08-26 11:16 | Hospitalist Progress Note ---
Date of Service August 26, 2025 Assessment & Plan (1) Metastatic cancer to liver: (2) Iron deficiency anemia: (3) (HFpEF) heart failure with preserved ejection fraction: (4) Chronic atrial fibrillation: Plan This is a 65 year old female with past medical history of chronic pancreatitis, tobacco use, COPD, PVD, recent stent placement of right carotid artery who presented to the ED on 08/22/2025 after an outpatient PCP visit for abdominal and back pain. #Metastatic Cancer with unknown origin suspect primary origin lung CTAP w/ diffuse metastatic disease including liver, adrenal glands, & lymph nodes Chest CTA significant for 9.5cm right perihilar/suprahilar paramediastinal mass. New from 11/27/2024. Invades mediastinum. Should be considered neoplastic until proven otherwise. Mass encases R upper lobe bronchovascular structures w/ post-obstructive pneumonitis in right upper lobe. Bulky supraclavicular, mediastinal, & upper abd LAD. R supraclavicular rich aggregate would be easily amenable to percutaneous tissue sampling. Pain control w/ scheduled Tylenol; Lidocaine patch for lumbar spine; & Dilaudid for severe pain. Due to holiday, Lumbar MRI for low back pain cannot take place until Wednesday, 08/27. Please reach out to IR on 08/27 to arrange a bx of the R supraclavicular lymph node. Oncology consulted, appreciate recommendations. #UTI UA + on admission, CBC w/ slight bump of WBC on 08/25 but has started to d owntrend.;pt w/ complaints of difficulty urinating on admission, caballero placed. UC + for E. Coli, sensitivities reviewed Continue IV Rocephin through 08/28; consider void trial after abx completion. #Anemia hx of NETTIE, on PO iron outpatient. Hgb 7.8 on admission. dropped to 6.6 on 08/23, s/p 1 Unit PRBCs, now stable at 8.6 Iron does appear slightly elevated at 170; remainder of panel WNL --> reduce to daily PO iron supplementation B12 elevated at 1446 & Folate WNL. Eliquis on hold secondary to acute hgb drop, will remain on hold until after bx has been obtained. #R carotid artery stenosis Recent TCAR w/ Dr. Maya on 08/01/2025 that required ICU stay following secondary to hypotension requiring pressors and subsequently discharged home on Midodrine TID. Continue ASA/Plavix #Hypotension BP mildly low on admission 97/67 Continue Midodrine TID Continue to monitor BP. #Chronic pancreatitis Abdominal pain may be secondary to underlying chronic pancreatitis vs liver mets Continue Creon supplement Pain regimen as above. #A fib Rate controlled on admission Continue Metoprolol #CHF Home regimen includes Bumex, resume 08/25 Echo from 07/19 - EF 55-60%; mod tricuspid regurg; mod mitral regurg Caution volume of IVF given during hospital stay. #Neuropathy - pregabalin #Mental health - Amitriptyline, Ambien #GERD - PPI DVT prophylaxis: Hold chemical in the setting of upcoming bx. Code: full Admission and Anticipated Discharge Date Admission Date: August 22, 2025 Supervising Physician Co-Signing Physician Notes The patient was not seen by me. The chart was reviewed. Case discussed with MAYI Parker. Agree with assessment and plan Subjective Anisha was seen & examined this morning. She is still having low back pain today. Nursing informed me that the patient prefers Dilaudid when managing pain, pain regimen adjusted. Physical Exam Physical Exam: General: NAD, VS: BP 105/67; P63; R16; T36.8C Resp: normal respiratory effort Extremities: no edema Neuro: A&O x3 Skin: intact, no lesions noted Results & Data Results & Data Vital Signs (Past 12 Hours) Vital Signs Temp Pulse Resp BP Pulse Ox O2 Del Method 08/26/25 09:26 Room Air 08/26/25 07:40 36.8 C 63 15 105/67 98 Room Air PG Care Time/CCT Total # of Minutes Spent Total Time Spent with Patient: Total time spent is greater than 50% in coordination of care (as documented) at patient's floor/unit and/or counseling patient: Coding Level of Care Code 03407 SUB INP/OBS CARE 2/35MIN Diagnoses Metastatic cancer to liver C78.7 Iron deficiency anemia D50.9 (HFpEF) heart failure with preserved ejection fraction I50.30 Chronic atrial fibrillation I48.20
[2025-08-26] MEDS: HYDROmorphone INJ 1 MG/ML SYRINGE IV PRN (12:04)
[2025-08-26] MEDS: HYDROmorphone INJ 0.5 MG/0.5 ML SYR IV PRN (15:22)
[2025-08-27 06:32] LABS: Hematocrit (blood only) 29.9 % (37.0-47.0); Hemoglobin 9.5 g/dL (12.0-16.0); Mean Corpuscular Hemoglobin 33.5 pg (25.0-34.0); Mean Corpuscular Volume 105.3 fL (80.0-100.0); Platelet Count 108 K/uL (130-400); RDW Standard Deviation 89.6 fL (36.4-46.3); Red Blood Count 2.84 M/uL (4.20-5.40); White Blood Count 9.86 K/ul (4.8-10.8)
[2025-08-27 06:44] LABS: Anion Gap 11.0 (3-11); Blood Urea Nitrogen 22.0 mg/dl (6-23); Calcium 9.0 mg/dl (8.6-10.3); Carbon Dioxide 30.0 mmol/L (21-32); Chloride 98.0 mmol/L (98-107); Creatinine Clr Calc Pharmacy 46.2 ml/min; Glucose 96.0 mg/dl (70-99(Fasting)); Potassium 3.5 mmol/L (3.5-5.1); Sodium 139.0 mmol/L (136-145)
--- NOTE | 2025-08-27 08:26 | Hospitalist Progress Note ---
Date of Service August 27, 2025 Assessment & Plan (1) Metastatic cancer to liver: (2) Iron deficiency anemia: (3) (HFpEF) heart failure with preserved ejection fraction: (4) Chronic atrial fibrillation: Plan This is a 65 year old female with past medical history of chronic pancreatitis, tobacco use, COPD, PVD, recent stent placement of right carotid artery who presented to the ED on 08/22/2025 after an outpatient PCP visit for abdominal and back pain. #Metastatic Cancer with unknown origin Suspect primary origin lung CTAP w/ diffuse metastatic disease including liver, adrenal glands, & lymph nodes Chest CTA significant for 9.5cm right perihilar/suprahilar paramediastinal mass. New from 11/27/2024. Invades mediastinum. Should be considered neoplastic until proven otherwise. Mass encases R upper lobe bronchovascular structures w/ post-obstructive pneumonitis in right upper lobe. Bulky supraclavicular, mediastinal, & upper abd LAD. R supraclavicular rich aggregate would be easily amenable to percutaneous tissue sampling. Pain control w/ scheduled Tylenol; Lidocaine patch for lumbar spine; & Dilaudid for severe pain. Lumbar spine MRI obtained on 08/27 Illustrated widespread metastatic disease throughout the thoracic lumbar sacral spine; no evidence of spinal cord or cauda equina masses; no evidence of epidural metastatic disease IR biopsy of the right supraclavicular lymph node on 08/27 taken Suspect will have results in the next 24 to 48 hours if this is a small cell lung cancer Oncology consulted, appreciate recommendations Brain MRI with and without contrast ordered for full staging #UTI UA + on admission, CBC w/ slight bump of WBC on 08/25 but has started to downtrend.;pt w/ complaints of difficulty urinating on admission, caballero placed. UC + for E. Coli, sensitivities reviewed Continue IV Rocephin through 08/28; consider void trial after abx completion #Anemia hx of NETTIE, on PO iron outpatient. Hgb 7.8 on admission. dropped to 6.6 on 08/23, s/p 1 Unit PRBCs, now stable and uptrending 8.6 -> 9.5 Okay to resume Eliquis on 08/27 Iron does appear slightly elevated at 170; remainder of panel WNL --> reduce to daily PO iron supplementation B12 elevated at 1446 & Folate WNL #R carotid artery stenosis Recent TCAR w/ Dr. Maya on 08/01/2025 that required ICU stay following secondary to hypotension requiring pressors and subsequently discharged home on Midodrine TID. Continue ASA/Plavix #Hypotension BP mildly low on admission 97/67 Continue Midodrine TID Continue to monitor BP. #Chronic pancreatitis Abdominal pain may be secondary to underlying chronic pancreatitis vs liver mets Continue Creon supplement Pain regimen as above. #A fib Rate controlled on admission Continue Metoprolol #CHF Home regimen includes Bumex, resume 08/25 Echo from 07/19 - EF 55-60%; mod tricuspid regurg; mod mitral regurg Caution volume of IVF given during hospital stay. #Neuropathy - pregabalin #Mental health - Amitriptyline, Ambien #GERD - PPI Disposition: Continued stay on MedSurg DVT PPx: Plan to restart Eliquis on the evening of 08/27 Admission and Anticipated Discharge Date Admission Date: August 22, 2025 Supervising Physician Co-Signing Physician Notes I did not see or examine the patient. I verified all stearns points and agree with Manan Prabhakar PA-C with the following exceptions and/or additions: None Subjective Mrs. Garcia is still having 8 out of 10 lower back pain at this time. She reports that the morphine does not help much, but notes that the Dilaudid has been helping intermittently. ROS: Patient endorses constant lower back pain Patient denies fever, chills, chest pain, SOB, abdominal pain, N/V/D, changes in urinary/bowel habits, or saddle anesthesia. Review of Systems Review of Systems: See HPI above Physical Exam Physical Exam: General: no acute distress; lethargic; non-toxic appearing; SpO2 92% on RA HEENT: normocephalic, atraumatic; PERRLA; vision and hearing intact Neck: supple; trachea midline Skin: warm, dry without signs of tenting; no cyanosis; no rashes, bruising, lesions, or erythema noted CV: chest wall NTP; RRR; S1/S2 normal; no murmurs/rubs/gallops; pulses intact and symmetric at radial, DP, and PT Lungs: no acute respiratory distress; symmetrical chest wall expansion; mild expiratory wheeze in the lower lung yepez bilaterally ABD: Soft, NTP; BS present; no rebound/guarding; no distention MSK: no tics or fasciculations; no edema noted in the LEs b/l, nonerythematous Neuro: A&Ox3; normal mood and affect; fluent speech; sensation intact and symmetric in the LEs b/l Results & Data Results & Data Vital Signs (Past 12 Hours) Vital Signs Temp Pulse Resp BP BP Pulse Ox O2 Del Method 08/27/25 07:33 36.5 C 73 16 127/79 100 Nasal Cannula 08/26/25 22:25 36.5 C 83 12 129/97 95 Room Air 08/26/25 21:00 Room Air 08/26/25 20:57 36.4 C L 78 16 163/86 H 93 Room Air PG Care Time/CCT Total # of Minutes Spent Total Time Spent with Patient: Total time spent is greater than 50% in coordination of care (as documented) at patient's floor/unit and/or counseling patient: Coding [place] [address] SUB INP/OBS CARE 3/50MIN Patient Type Established Medical Decision Making High Complexity Diagnoses Metastatic cancer to liver C78.7 Iron deficiency anemia D50.9 (HFpEF) heart failure with preserved ejection fraction I50.30 Chronic atrial fibrillation I48.20
[2025-08-27] MEDS: GADOBUTROL 65ML VIAL IV ONE (14:22)
--- NOTE | 2025-08-27 15:04 | Ultrasound Report ---
ULTRASOUND-GUIDED RIGHT SUPRACLAVICULAR MASS FNA CLINICAL HISTORY: Multiple right supraclavicular masses PROCEDURE: Procedure and risks were complained. Informed consent was obtained. A final timeout was co mpleted. The neck was prepped and draped in sterile fashion. 1% lidocaine was utilized for skin anest hesia. Utilizing ultrasound guidance, a 25-gauge needle was advanced into the right supraclavicular mass. Ul trasound images were obtained. 3 aspirates were obtained and given to the pathologist for review. The patient tolerated the procedure well. IMPRESSION: Right supraclavicular mass FNA as detailed above. Performed, dictated, and signed by Wayne Capps PA-C; to be co-signed by Dr. Diogo Johnson. Electronically signed by: Diogo Johnson M.D. 08/27/2025 3:31 PM
--- NOTE | 2025-08-27 15:48 | Magnetic Resonance Report ---
MRI OF THE LUMBAR SPINE WITH AND WITHOUT CONTRAST CLINICAL HISTORY: eval for spine mets, low back pain COMPARISON STUDY: No previous studies for comparison. TECHNIQUE: Utilizing a 1.5 Ayala magnet and dedicated coil, multiplanar, multiecho imaging of the dc ar spine was performed before and after uneventful IV administration of 7 mL of Gadavist. FINDINGS: There are innumerable rounded foci of marrow replacement involving the T11-S4 vertebral bodies. In ad dition there is evidence for marrow replacement involving the posterior elements.. The findings are h ighly suspicious for widespread bony metastatic disease. In addition there are areas of marrow replac ement involving the iliac bones and sacrum. There are multiple hepatic masses suspicious for metastatic disease. There is also evidence for retro peritoneal adenopathy as well as adenopathy in the region of the jalil hepatis. No spinal cord lesions are visualized. There are no epidural masses identified. There are multilevel degenerative changes present within the spine with mild spinal stenosis at the L 1-2 and L2-3 levels. There is moderate to severe spinal stenosis at the L3-4 level. There is mild to moderate spinal stenosis at the L4-5 level. IMPRESSION: 1. Widespread metastatic disease throughout the visualized portions of the thoracic lumbar and sacral spine. In addition there is evidence for iliac and sacral metastasis. 2. Multiple hepatic masses consistent with metastatic disease 3. Jalil hepatis and retroperitoneal pathologic adenopathy 4. No spinal cord or cauda equina masses. No evidence of epidural metastatic disease 5. Multilevel spondylytic changes with multilevel spinal stenosis. ACT 112: Negative or not required by law. Electronically signed by: Greg Moreira M.D. 08/27/2025 3:47 PM
--- NOTE | 2025-08-27 17:08 | Oncology Consultation ---
Date of Consultation August 27, 2025 Assessment & Plan (1) Metastatic cancer to liver: (2) Lung mass: Plan -Based on imaging and significant smoking history, suspect metastatic lung cancer. Possibly small cell given extent of disease. Await biopsy results -Obtain brain MRI with and without contrast for full staging -Will obtain outpatient PET/CT -Palliative care evaluation inpatient/outpatient to discuss goals of care, pain control. History of Present Illness Reason for Consultation: new dx of metastatic cancer, likely lung on imagin Attending Physician: Giovanny Santos MD History of Present Illness 65-year-old female with multiple health issues including history of splenic infarct admitted with abdominal pain. Abdominal imaging revealed diffuse liver metastatic disease, adrenal metastatic disease and diffuse lymph node metastatic disease in the abdomen. CTA chest on 08/23/2025 revealed approximately 9.5 cm right suprahilar paramediastinal mass encasing right upper lobe bronchovascular structures with postobstructive pneumonitis, bulky supraclavicular, mediastinal and upper abdominal lymphadenopathy. MRI lumbar spine revealed widespread metastatic disease throughout visualized portion of the thoracic lumbar and sacral spine, multiple hepatic masses. Underwent right supraclavicular mass lymph node biopsy earlier today with pathology pending. Allergies Allergy/AdvReac Type Severity Reaction Status Date / Time adhesive Allergy Severe SEVERE Verified 08/22/25 15:34 SKIN IRRITATION latex Allergy Mild Rash Verified 08/22/25 15:34 amoxicillin AdvReac Severe LIVER Verified 08/22/25 15:34 FAILURE clavulanic acid AdvReac Severe LIVER Verified 08/22/25 15:34 FAILURE guanfacine AdvReac Intermediate BP PROBLEMS Verified 08/22/25 15:34 nifedipine AdvReac Intermediate BP PROBLEMS Verified 08/22/25 15:34 Home Medications Medication Instructions Recorded Confirmed Type aspirin 81 mg tablet,delayed 81 mg PO QAM 12/19/19 08/22/25 History release (Tj Low Dose Aspirin) amitriptyline 50 mg tablet 50 mg PO HS 09/11/22 08/22/25 History sennosides 8.6 mg-docusate sodium 2 tab PO QAM PRN constipation #60 04/18/23 08/22/25 Rx 50 mg tablet (Senokot-S) tabs metoprolol succinate 25 mg 25 mg PO BID 04/25/23 08/22/25 History tablet,extended release 24 hr apixaban 5 mg tablet (Eliquis) 5 mg PO BID 12/31/23 08/22/25 History bdykms-rhteesad-bkrklie (pork) 1 cap PO UD 01/05/24 08/22/25 History 3,000-9,500-15,000 unit capsule,del rel (Creon) zolpidem 10 mg tablet (Ambien) 10 mg PO HS 01/05/24 08/22/25 History pantoprazole 40 mg tablet,delayed 40 mg PO QAM #120 tabs 08/21/24 08/22/25 Rx release (Protonix) sodium chloride 1,000 mg soluble 1,000 mg PO BID #180 tabs 09/04/24 08/22/25 Rx tablet pregabalin 300 mg capsule 300 mg PO QAM 11/11/24 08/22/25 History bumetanide 2 mg tablet 2 mg PO QAM 02/28/25 08/22/25 History potassium chloride 20 mEq 40 meq (2 x 20 mEq) PO DAILY #180 02/28/25 08/22/25 Rx tablet,extended release tabs clopidogrel 75 mg tablet (Plavix) 75 mg PO DAILY 07/25/25 08/22/25 History docusate sodium 100 mg capsule 100 mg PO BID PRN constipation #60 08/03/25 08/22/25 Rx caps ferrous sulfate 325 mg (65 mg 325 mg PO BIDM #60 tabs 08/03/25 08/22/25 Rx iron) tablet,delayed release midodrine 5 mg tablet 5 mg PO TID@0800,1200,1700 #21 tabs 08/03/25 08/22/25 Rx oxycodone 5 mg tablet 10 mg PO Q6H PRN Pain 08/22/25 08/22/25 History Patient History Medical History Hx MRSA infection (12/2024) per chart, pos mrsa nasal swab 10/2024; pos wound swab 12/2024 Stump neuralgia PVD (peripheral vascular disease) Poor intravenous access HTN (hypertension) Dyslipidemia History of colitis Anasarca (HFpEF) heart failure with preserved ejection fraction COPD (chronic obstructive pulmonary disease) per chart, pt denies, states she does not see a pulm Hx of deep venous thrombosis per chart 40 years ago, pt. states does not remember History of cellulitis (10/2024) left groin/ abdomen- resolved Hx of fracture of femur (10/2024) left femur, due to a fall- states no surgery Acute blood loss anemia hx History of anesthesia reaction woke up in middle of an EGD once at [facility] Acute GI bleeding Oct 2023, hospitalized at [facility] > due to this, patient switched from Xarelto to Eliquis > no further bleeding issues Splenic infarct pt unaware Acute pancreatitis hx Pancreas cyst AV block with subsequent syncope - s/p dual chamber pacemaker ([employer]) - 2019 per cardio records History of COVID-19 (08/2021) 08/2021- pcr test [place], not hosp; no symptoms, was in the ER for another issue- pt. states "I never had covid" Metabolic alkalosis TRISTAN (dyspnea on exertion) "only if i have fluid build up"- pt. does not ambulate due to needing new prosthesis Severe mitral regurgitation Per patient, attempt for MitraClip ([facility]) was performed but unsuccessful (07/2021) (little improvement of regurgitation with MitraClip x2- procedure aborted Hx of gastric ulcer Neuropathy Hx of pancreatitis Chronic. Due to heavy alcohol consumption per records Anxiety and depression Hx of migraines Pacemaker Dual-chamber, implanted 2018 (high grade AVB/sinus node dysfunction), [employer], follows with Dr. 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 Chronic pain syndrome Tobacco use disorder Paroxysmal atrial fibrillation Eliquis/pacer - believes she may have had a cardioversion in [place] Surgical History Status post ORIF of fracture of ankle (2016) left ankle, had hardware in place, states had allergic reaction and later required amputation Hx of oral surgery (09/17/22) Debridement Necrotic Bone and Soft Tissue and Associated Infected Periodontally Infected Teeth to Allow Mitral Valve Replacement (Lower Jaw)(Not Applicable) - Ha Champion, DMD Hx of vascular surgery 11/2019, with dr maya, [facility], replaced 2 veins with bovine veins in Rt leg Bilateral femoral endarterectomy with iliac stent (2016) History of surgery (~07/30/21) Attempt for MitraClip ([facility]) was performed but unsuccessful (07/2021); currently being seen in [facility] for a trial for valve replacement History of esophagogastroduodenoscopy (EGD) History of cardiac cath (~04/24/21) 03/2021@ [facility] with Dr. Carbajal, no evidence of epicardial CAD - no stents- follows with dr. perez S/P angiogram of extremity right lower leg S/P femoral-popliteal bypass surgery History of amputation (2016) [place] - LLE- had fractured ankle, had metal placed, then had allergy to metal and required amputation History of colonoscopy History of tooth extraction History of appendectomy Family History Unknown No problems noted. Father Family history of diabetes mellitus Breast cancer Diabetes Hypertension Mother Hypertension Other No family history of adverse response to anesthesia Social History Smoking Status: Current every day smoker Tobacco Type: Cigarettes Cigarettes Per Day: 1/2 PPD; Second Hand Exposure: No; Do You Dip or Chew Tobacco: No; Hx Alcohol Use: Yes Alcohol type: beer Alcohol Intake Frequency: 2-4 x/Month Hx Substance Use: No Preferred Language: Czech Communication Ability: Effective Visual Impairment: No Limitations After School Program Coordinator Required: No Beliefs That Will Affect Care: None marital status: Current Living Situation: Spouse current occupational status: disabled current occupation: Retired How many Children do You have: 1 Feels Safe at Home: Yes Diet: regular during the past year weight has: decreased > 10 lbs Assistive Devices: Bedside Commode, Hospital Bed, Prosthesis and Wheelchair Results & Data Vital Signs (Past 12 Hours) Vital Signs Temp Pulse Resp BP BP Pulse Ox O2 Del Method 08/27/25 15:35 36.5 C 75 17 129/80 92 Room Air 08/27/25 07:33 36.5 C 73 16 127/79 100 Nasal Cannula
[2025-08-28] MEDS ORDERED: NALOXONE HCL 0.4 MG/1 ML VIAL/CARP IV PRN (13:01)
--- NOTE | 2025-08-28 13:01 | Hospitalist Progress Note ---
Date of Service August 28, 2025 Assessment & Plan (1) Metastatic cancer to liver: (2) Iron deficiency anemia: (3) (HFpEF) heart failure with preserved ejection fraction: (4) Chronic atrial fibrillation: Plan This is a 65 year old female with past medical history of chronic pancreatitis, tobacco use, COPD, PVD, recent stent placement of right carotid artery who presented to the ED on 08/22/2025 after an outpatient PCP visit for abdominal and back pain. #Metastatic Cancer with unknown origin Suspect primary origin lung CTAP w/ diffuse metastatic disease including liver, adrenal glands, & lymph nodes Chest CTA significant for 9.5cm right perihilar/suprahilar paramediastinal mass. New from 11/27/2024. Invades mediastinum. Should be considered neoplastic until proven otherwise. Mass encases R upper lobe bronchovascular structures w/ post-obstructive pneumonitis in right upper lobe. Bulky supraclavicular, mediastinal, & upper abd LAD While no respiratory distress or episodes of hypoxia while in the hospital, suspect that if this worsens, patient may require pulmonology consult for bronchial stenting IR biopsy of the right supraclavicular lymph node on 08/27 taken Suspect will have results in the next 24 to 48 hours if this is a small cell lung cancer Lumbar spine MRI obtained on 08/27 Illustrated widespread metastatic disease throughout the thoracic lumbar sacral spine; no evidence of spinal cord or cauda equina masses Patient/ updated regarding results on 08/28 Oncology consulted, appreciate recommendations Brain MRI with and without contrast ordered for full staging Patient/family have declined palliative care discussions at this time Still having 10 out of 10 pain despite current pain regimen: Scheduled Tylenol, Lidocaine patch to lumbar spine, & IV Dilaudid for severe pain Fentanyl patch ordered, pending Narcan PRN Continuous pulse oximetry #UTI UA + on admission, CBC w/ slight bump of WBC on 08/25 but has started to downtrend.;pt w/ complaints of difficulty urinating on admission, caballero placed. UC + for E. Coli, sensitivities reviewed Continue IV Rocephin through 08/28; consider void trial after abx completion #Anemia Hx of NETTIE, on PO iron outpatient. Hgb 7.8 on admission. dropped to 6.6 on 08/23, s/p 1 Unit PRBCs, now stable and uptrending 8.6 -> 9.5 Okay to resume Eliquis on 08/27 Iron does appear slightly elevated at 170; remainder of panel WNL --> reduce to daily PO iron supplementation B12 elevated at 1446 & Folate WNL #H/o Hyponatremia Sodium WNL at 139 on 08/27 reports the patient follows with nephrology for history of chronic hyponatremia Will trial adjustment of sodium chloride 1000 mg tablets BID -> daily Monitor sodium levels #R carotid artery stenosis Recent TCAR w/ Dr. Maya on 08/01/2025 that required ICU stay following secondary to hypotension requiring pressors and subsequently discharged home on Midodrine TID. Continue ASA/Plavix #Hypotension BP mildly low on admission 97/67 Continue Midodrine TID Continue to monitor BP. #Chronic pancreatitis Abdominal pain may be secondary to underlying chronic pancreatitis vs liver mets Continue Creon supplement Pain regimen as above. #A fib Rate controlled on admission Continue Metoprolol #CHF Home regimen includes Bumex, resume 08/25 Echo from 07/19 - EF 55-60%; mod tricuspid regurg; mod mitral regurg Caution volume of IVF given during hospital stay. #Neuropathy - pregabalin #Mental health - Amitriptyline, Ambien #GERD - PPI Disposition: Continued stay on MedSurg DVT PPx: Eliquis Admission and Anticipated Discharge Date Admission Date: August 22, 2025 Supervising Physician Co-Signing Physician Notes I did not see or examine the patient. I verified all stearns points and agree with Manan Prabhakar PA-C with the following exceptions and/or additions: None Subjective Mrs. Garcia is still having 10 out of 10 pain in her lower back today. The pain stays in her lower back without radiation; it does not shoot down her legs. However, she has difficulty moving and bed. She reports she slept okay last night, but is still feeling quite out of it. Patient's (Smooth) at bedside provides additional history. He reports that, ever since she had a carotid stent placed at the beginning of July, her cognition has slowly declined. She is appeared more lethargic over this period of time. She does have oxycodone tablets at home, which she has been taking every 4 hours rather than every 6 hours, but expresses concern that this might not cover her pain at home. Additionally, the patient has not had a bowel movement in the past week since being in the hospital. After reviewing patient's lumbar spine MRI with both the patient and patient's , discussed palliative care options as well as pain control options. /patient would like to defer palliative care at this time. ROS: Patient endorses severe/intractable lower back pain, mild abdominal pain, generally fatigue, constipation, and lethargy. Patient denies fevers, headache, chest pain, SOB, cough, nausea, vomiting, or numbness/tingling/pain shooting down the legs. Review of Systems Review of Systems: See HPI above Physical Exam Physical Exam: General: no acute distress; lethargic; (Smooth) at bedside; non-toxic appearing; SpO2 97% on RA HEENT: normocephalic, atraumatic; PERRLA; vision and hearing intact Neck: supple; trachea midline Skin: warm, dry without signs of tenting; no cyanosis; no rashes, bruising, lesions, or erythema noted CV: chest wall NTP; RRR; S1/S2 normal; pulses intact and symmetric at radial, DP, and PT Lungs: no acute respiratory distress; symmetrical chest wall expansion; mild expiratory wheeze in the lower lung yepez bilaterally Back: Upper spine NTP; lower spine/sacrum TTP; no rashes or bruising patient on the abdomen flanks bilaterally ABD: Soft, NTP; BS present; no rebound/guarding; no distention MSK: no tics or fasciculations; s/p left lower leg amputation; patient exhibits ability to wiggle toes of the right foot Neuro: A&Ox3; normal mood and affect; fluent speech; sensation intact and symmetric in the LEs b/l assessed at the knees Results & Data Results & Data Vital Signs (Past 12 Hours) Vital Signs Temp Pulse Resp BP Pulse Ox Pulse Ox O2 Del Method 08/28/25 09:00 97 08/28/25 08:19 36.3 C L 87 15 132/77 95 Room Air O2 Del Method 08/28/25 09:00 Room Air 08/28/25 08:19 PG Care Time/CCT Total # of Minutes Spent Total Time Spent with Patient: Total time spent is greater than 50% in coordination of care (as documented) at patient's floor/unit and/or counseling patient: Coding [place] [address] SUB INP/OBS CARE 3/50MIN Patient Type Established Medical Decision Making High Complexity Diagnoses Metastatic cancer to liver C78.7 Iron deficiency anemia D50.9 (HFpEF) heart failure with preserved ejection fraction I50.30 Chronic atrial fibrillation I48.20
--- NOTE | 2025-08-28 13:45 | Magnetic Resonance Report ---
MRI OF THE BRAIN WITHOUT IV CONTRAST CLINICAL HISTORY: Right hilar mass. Assess for metastatic disease. COMPARISON STUDY: CT scan the head no contrast dated 11/27/2024 TECHNIQUE: MRI of the brain was performed utilizing various T1 and T2-weighted sequences in the axial , sagittal, and coronal planes. IV contrast was not administered for this examination. FINDINGS: The examination was ordered to evaluate for metastatic disease as part of a staging procedure. The pa tient was unable to tolerate the examination and refused to continue. The study consists of sagittal T1, axial diffusion, axial T2 gradient echo, and axial T2 sequence. A portion of the coronal FLAIR se quence was obtained. No contrast images were obtained. No intra or extra-axial mass lesions are visualized in this noncontrast study. Axial diffusion-weighted images reveal no evidence of acute or subacute origin. Gradient echo images are degraded by motion artifact, but there is no convincing evidence of hemorrha ge. T2 and FLAIR images reveal scattered foci of increased signal within the periventricular white matter likely on a small vessel basis. Small lacunar infarcts are suspected within the thalamus and basal g anglia. There are no areas suspicious for cytotoxic edema. Note is made of multiple areas of marrow replacement involving the upper cervical spine suspicious fo r metastatic disease. The marrow signal within the calvarium is also heterogeneous and calvarial meta static deposits are also likely. IMPRESSION: 1. Multifocal areas of marrow replacement viewed as highly suspicious for skeletal metastasis 2. No evidence of intracranial metastasis on this technically limited study which was performed witho ut contrast ACT 112: Negative or not required by law. Electronically signed by: Greg Moreira M.D. 08/28/2025 1:42 PM
[2025-08-28] MEDS: POLYETHYLENE (MIRALAX) 17 GM PACK PO ONE (13:53)
[2025-08-28] MEDS: SENNA 8.6 MG TAB PO SCH (22:08)
[2025-08-29 07:04] LABS: Hematocrit (blood only) 30.3 % (37.0-47.0); Hemoglobin 9.6 g/dL (12.0-16.0); Mean Corpuscular Hemoglobin 33.0 pg (25.0-34.0); Mean Corpuscular Volume 104.1 fL (80.0-100.0); Platelet Count 92 K/uL (130-400); RDW Standard Deviation 82.1 fL (36.4-46.3); Red Blood Count 2.91 M/uL (4.20-5.40); White Blood Count 10.44 K/ul (4.8-10.8)
[2025-08-29 07:24] LABS: Immature Granulocytes # (auto) 0.10 K/uL (0.01-0.20); Immature Granulocytes % (auto) 1.0 %; Macrocytosis Present; Polychromasia 1+; Stomatocytes 1+
[2025-08-29 07:38] LABS: Anion Gap 7.0 (3-11); Blood Urea Nitrogen 16.0 mg/dl (6-23); Calcium 8.9 mg/dl (8.6-10.3); Carbon Dioxide 37.0 mmol/L (21-32); Chloride 91.0 mmol/L (98-107); Creatinine Clr Calc Pharmacy 57.4 ml/min; Glucose 109.0 mg/dl (70-99(Fasting)); Potassium 3.2 mmol/L (3.5-5.1); Sodium 135.0 mmol/L (136-145)
[2025-08-29] MEDS: POLYETHYLENE (MIRALAX) 17 GM PACK PO SCH (08:02)
[2025-08-29] MEDS: SODIUM CHLORIDE 1 GM TABLET PO SCH (08:05)
[2025-08-29] MEDS ORDERED: SODIUM CHLORIDE 0.9% 500 ML IV SCH (08:30)
--- NOTE | 2025-08-29 09:25 | Hematology/Oncology Prog Note ---
Date of Service August 29, 2025 Assessment & Plan (1) Small cell lung cancer: Plan Had an extensive discussion today with patient and her . Discussed overall prognosis, treatment options of metastatic small cell lung cancer. Options include combination chemoimmunotherapy treatment or supportive care/hospice. Following extensive discussion, patient and family leaning towards supportive care/hospice given multiple comorbidities. Would recommend palliative care and evaluation to discuss this further with patient and her family. If she decides to proceed with chemo, we will plan to administer cycle 1 of treatment inpatient Admission and Anticipated Discharge Date Admission Date: August 22, 2025 Subjective Pathology from right supraclavicular lymph node biopsy revealed small cell lung cancer Results & Data Vital Signs (Past 12 Hours) Vital Signs Temp Pulse Pulse Pulse Resp BP BP 08/29/25 09:19 08/29/25 08:05 36.6 C 69 69 14 95/62 L 08/28/25 23:45 36.3 C L 72 16 117/79 08/28/25 22:12 88 112/69 08/28/25 21:30 Pulse Ox Pulse Ox O2 Del Method O2 Del Method 08/29/25 09:19 96 Room Air 08/29/25 08:05 96 Room Air 08/28/25 23:45 98 Room Air 08/28/25 22:12 08/28/25 21:30 Room Air
[2025-08-29 14:43] LABS: Base Excess VBG 12.1 mEq/L; HCO3 VBG 36 mmol/L; Oxygen Saturation VBG 95.0 %; PCO2 VBG 42 mmHg (38-50); PO2 VBG 69 mmHg; pH VBG 7.54 (7.36-7.41)
[2025-08-29 15:05] LABS: Anion Gap 9.0 (3-11); Blood Urea Nitrogen 17.0 mg/dl (6-23); Calcium 9.2 mg/dl (8.6-10.3); Carbon Dioxide 35.0 mmol/L (21-32); Chloride 91.0 mmol/L (98-107); Creatinine Clr Calc Pharmacy 57.4 ml/min; Glucose 117.0 mg/dl (70-99(Fasting)); Potassium 3.7 mmol/L (3.5-5.1); Sodium 135.0 mmol/L (136-145)
--- NOTE | 2025-08-29 15:13 | Hospitalist Progress Note ---
"Date of Service August 29, 2025 Assessment & Plan (1) Metastatic cancer to liver: (2) Iron deficiency anemia: (3) (HFpEF) heart failure with preserved ejection fraction: (4) Chronic atrial fibrillation: Plan This is a 65 year old female with past medical history of chronic pancreatitis, tobacco use, COPD, PVD, recent stent placement of right carotid artery who presented to the ED on 08/22/2025 after an outpatient PCP visit for abdominal and back pain. #Metastatic Cancer with unknown origin IR biopsy of the right supraclavicular lymph node resulted in small cell lung cancer Patient + updated regarding these findings on 08/29 CTAP w/ diffuse metastatic disease including liver, adrenal glands, & lymph nodes Chest CTA significant for 9.5cm right perihilar/suprahilar paramediastinal mass. New from 11/27/2024. Invades mediastinum While no respiratory distress or episodes of hypoxia while in the hospital, suspect that if this worsens, patient may require pulmonology consult for bronchial stenting Lumbar spine MRI obtained on 08/27 Illustrated widespread metastatic disease throughout the thoracic lumbar sacral spine; no evidence of spinal cord or cauda equina masses Oncology consulted, appreciate recommendations Brain MRI ordered to assess full staging However, patient was unable to tolerate full brain MRI, and only brain MRI without contrast was obtained Skeletal mets appreciated; no intracranial mets appreciated, however dif ficult to assess given noncontrasted study While patient/family initially declined palliative care on 08/28, they are open to palliative care consult to assist with pain medications at this time (see b mayco ( #Lethargy | ? CO2 Narcosis Still having 10 out of 10 pain despite current pain regimen on 08/28 Patient became increasing lethargic on 08/29 around 1240 after receiving Dilaudid 1.0 mg IV Assessed multiple times at bedside, and patient did follow some commands (life enrichment assistant fingers, wiggle toes) as well as one-word responses to some questioning, but appeared half-asleep and did not open her eyes when asked Pupils are reactive to light/not pinpoint SpO2 95% on RA without labored breathing; will defer Narcan at this time Continuous pulse oximetry Discussed case with attending (Dr. Gaffney) Dilaudid discontinued Fentanyl patch removed VBG ordered: 7.54/42/69/36 Repeat BMP, and ammonia ordered, pending Narcan PRN Will continue to reassess throughout the day #UTI UA + on admission, CBC w/ slight bump of WBC on 08/25 but has started to downtrend.;pt w/ complaints of difficulty urinating on admission, caballero placed. UC + for E. Coli, sensitivities reviewed Continue IV Rocephin through 08/28; consider void trial after abx completion #Anemia Hx of NETTIE, on PO iron outpatient. Hgb 7.8 on admission. dropped to 6.6 on 08/23, s/p 1 Unit PRBCs, now stable and uptrending 8.6 -> 9.5 -> 9.6 Okay to resume Eliquis on 08/27 Iron does appear slightly elevated at 170; remainder of panel WNL --> reduce to daily PO iron supplementation B12 elevated at 1446 & Folate WNL #H/o Hyponatremia Sodium WNL at 139 on 08/27 reports the patient follows with nephrology for history of chronic hyponatremia Will trial adjustment of sodium chloride 1000 mg tablets BID -> daily Monitor sodium levels #R carotid artery stenosis Recent TCAR w/ Dr. Maya on 08/01/2025 that required ICU stay following secondary to hypotension requiring pressors and subsequently discharged home on Midodrine TID. Continue ASA/Plavix #Hypotension BP mildly low on admission 97/67 Continue Midodrine TID Continue to monitor BP. #Chronic pancreatitis Abdominal pain may be secondary to underlying chronic pancreatitis vs liver mets Continue Creon supplement Pain regimen as above. #A fib Rate controlled on admission Continue Metoprolol #CHF Home regimen includes Bumex, resume 08/25 Echo from 07/19 - EF 55-60%; mod tricuspid regurg; mod mitral regurg Caution volume of IVF given during hospital stay. #Neuropathy - pregabalin #Mental health - Amitriptyline, Ambien #GERD - PPI Disposition: Continued stay on MedSurg DVT PPx: Eliquis Admission and Anticipated Discharge Date Admission Date: August 22, 2025 Supervising Physician Co-Signing Physician Notes Attending Attestation & Progress Note: Pt seen/examined, chart reviewed, care plan d/w MAYI Prabhakar. I agree w/ the stearns components of his documentation. Saw patient simultaneously with Mr Prabhakar. Patient was asleep, but she did wake up and answer some basic questions albeit briefly. With that said she was still quite sleepy. at bedside. Exam - gen - very sleepy eyes - PERRL, pupils about 2mm & reactive neck - no JVD heart - RRR, s1 s2 lungs - mild end-exp wheezes b/l, no rales abd - soft NT ND BS+ ext - no edema, pulses 2+ b/l neuro - strength 5/5 x 4 exts labs reviewed imaging reviewed including recent brain MRI (skeletal mets, but no intracranial mets seen) A/P: Toxic encephalopathy 2nd to narcotics - -d/c dilaudid -d/c fentanyl patch -will ask palliative care to see in consult to assist with pain relief and finding a regimen that will help her without causing excess sedation Stage 4 small cell lung ca Giovanny Lay MD Subjective Mrs. Garcia is incredibly lethargic upon exam and slow to respond to questioning. Patient's at bedside reports that she just received a dose of IV Dilaudid 30 minutes prior to my arrival. Patient is a poor historian at this time, but does respond to some commands (wiggling toes, gripping hands, and responding with one-word answers). However, she does not respond when asked what her birthday is, and does not open her eyes when asked. Explained to that this was likely narcosis in the setting of fentanyl patch, Dilaudid, and Lyrica taken this morning. ROS unobtainable at this time given patient's current state. Reassessed patient around 1600 with attending at bedside (Dr. Gaffney). Patient is doing marginally better (opens eyes, protrudes tongue, can provide her birthday, etc.). Still very lethargic/poor historian. Review of Systems Review of Systems: See HPI above Physical Exam Physical Exam: General: no acute distress; lethargic; slow to respond to questioning; (Smooth) at bedside; non-toxic appearing; SpO2 95% on RA HEENT: normocephalic, atraumatic; PERRLA unable to assess EOMs; pupils are not pinpoint, and do respond to light; hearing appears to be intact; unable to assess vision at this time Neck: supple; trachea midline Skin: warm, dry without signs of tenting; no cyanosis; no rashes, bruising, lesions, or erythema noted CV: chest wall NTP; RRR; S1/S2 normal; pulses intact and symmetric at radial, DP, and PT Lungs: no acute respiratory distress; however, patient does exhibit hypopneas; symmetrical chest wall expansion; mild expiratory wheeze in the lower lung yepez bilaterally Back: Upper spine NTP; lower spine/sacrum TTP; no rashes or bruising patient on the abdomen flanks bilaterally ABD: Soft, NTP; BS present; no rebound/guarding; no distention MSK: no tics or fasciculations; s/p left lower leg amputation; patient exhibits ability to wiggle toes of the right foot; 4/5 life enrichment assistant strength bilaterally Neuro: Flat mood and affect; one-word responses some question; difficult to assess sensation at this time Results & Data Results & Data Vital Signs (Past 12 Hours) Vital Signs Temp Pulse Pulse Resp BP Pulse Ox Pulse Ox 08/29/25 11:29 36.6 C 86 15 108/71 96 08/29/25 09:19 96 08/29/25 08:05 36.6 C 69 69 14 95/62 L 96 08/29/25 08:00 O2 Del Method O2 Del Method 08/29/25 11:29 Room Air 08/29/25 09:19 Room Air 08/29/25 08:05 Room Air 08/29/25 08:00 Room Air PG Care Time/CCT Total # of Minutes Spent Total Time Spent with Patient: Total time spent is greater than 50% in coordination of care (as documented) at patient's floor/unit and/or counseling patient: C[place] [address] SUB INP/OBS CARE 3/50MIN Patient Type Established Medical Decision Making High Complexity Diagnoses Metastatic cancer to liver C78.7 Iron deficiency anemia D50.9 (HFpEF) heart failure with preserved ejection fraction I50.30 Chronic atrial fibrillation I48.20"
[2025-08-30 06:18] LABS: Hematocrit (blood only) 29.4 % (37.0-47.0); Hemoglobin 9.5 g/dL (12.0-16.0); Immature Granulocytes # (auto) 0.07 K/uL (0.01-0.20); Immature Granulocytes % (auto) 0.7 %; Mean Corpuscular Hemoglobin 33.5 pg (25.0-34.0); Mean Corpuscular Volume 103.5 fL (80.0-100.0); Platelet Count 87 K/uL (130-400); RDW Standard Deviation 78.2 fL (36.4-46.3); Red Blood Count 2.84 M/uL (4.20-5.40); White Blood Count 10.55 K/ul (4.8-10.8)
[2025-08-30 06:42] LABS: Anisocytosis Present
[2025-08-30 06:43] LABS: Anion Gap 8.0 (3-11); Blood Urea Nitrogen 18.0 mg/dl (6-23); Calcium 8.9 mg/dl (8.6-10.3); Carbon Dioxide 36.0 mmol/L (21-32); Chloride 92.0 mmol/L (98-107); Creatinine Clr Calc Pharmacy 56.7 ml/min; Glucose 116.0 mg/dl (70-99(Fasting)); Potassium 3.3 mmol/L (3.5-5.1); Sodium 136.0 mmol/L (136-145)
--- NOTE | 2025-08-30 09:29 | Hospitalist Progress Note ---
Date of Service August 30, 2025 Assessment & Plan (1) Metastatic cancer to liver: (2) Iron deficiency anemia: (3) (HFpEF) heart failure with preserved ejection fraction: (4) Chronic atrial fibrillation: Plan This is a 65 year old female with past medical history of chronic pancreatitis, tobacco use, COPD, PVD, recent stent placement of right carotid artery who presented to the ED on 08/22/2025 after an outpatient PCP visit for abdominal and back pain. #Small cell lung cancer with widespread metastasis IR biopsy of the right supraclavicular lymph node resulted in small cell lung cancer Patient + updated regarding these findings on 08/29 CTAP w/ diffuse metastatic disease including liver, adrenal glands, & lymph nodes Chest CTA significant for 9.5cm right perihilar/suprahilar paramediastinal mass. New from 11/27/2024. Invades mediastinum While no respiratory distress or episodes of hypoxia while in the hospital, suspect that if this worsens, patient may require pulmonology consult for bronchial stenting Lumbar spine MRI obtained on 08/27 Illustrated widespread metastatic disease throughout the thoracic lumbar sacral spine; no evidence of spinal cord or cauda equina masses Oncology consulted, appreciate recommendations Brain MRI ordered to assess full staging However, patient was unable to tolerate full brain MRI, and only brain MRI without contrast was obtained Skeletal mets appreciated; no intracranial mets appreciated, however difficult to assess given noncontrasted study Advance care planning discussion took place on 08/30: Patient + declined induction therapy, would like to focus on palliative/hospice care at this time GOC: home with hospice Prescription signed for hospice evaluation and treatment Palliative care consult appreciated for pain control regimen Discontinue Dilaudid Restart fentanyl 12.5 mg patch on 08/30 with oxycodone 10 mg p.o. as needed for breakthrough pain #? CO2 Narcosis (resolved) Note: Patient became increasing lethargic with apneic episodes on 08/29 around 1240 after receiving Dilaudid 1.0 mg IV IV Dilaudid discontinued Fentanyl patch temporarily removed VBG ordered: 7.54/42/69/36 Narcan PRN Discussed with palliative care (as above) #Anemia Hx of NETTIE, on PO iron outpatient. Hgb 7.8 on admission. dropped to 6.6 on 08/23, s/p 1 Unit PRBCs, now stable Okay to resume Eliquis on 08/27 Iron does appear slightly elevated at 170; remainder of panel WNL --> reduce to daily PO iron supplementation B12 elevated at 1446 & Folate WNL #H/o Hyponatremia Sodium WNL at 139 on 08/27 reports the patient follows with nephrology for history of chronic hyponatremia Will trial adjustment of sodium chloride 1000 mg tablets BID -> daily Monitor sodium levels #R carotid artery stenosis Recent TCAR w/ Dr. Maya on 08/01/2025 that required ICU stay following secondary to hypotension requiring pressors and subsequently discharged home on Midodrine TID. Continue ASA/Plavix #Hypotension Continue Midodrine TID #Chronic pancreatitis Abdominal pain may be secondary to underlying chronic pancreatitis vs liver mets Continue Creon supplement Pain regimen as above #A fib Rate controlled on admission Continue Metoprolol #CHF Home regimen includes Bumex, resume 08/25 Echo from 07/19 - EF 55-60%; mod tricuspid regurg; mod mitral regurg Caution volume of IVF given during hospital stay. #Neuropathy - pregabalin #Mental health - Amitriptyline, Ambien #GERD - PPI Disposition: Continued stay on MedSurg DVT PPx: Artemio Admission and Anticipated Discharge Date Admission Date: August 22, 2025 Supervising Physician Co-Signing Physician Notes Attending Attestation & Progress Note: Pt seen/examined, chart reviewed, care plan d/w MAYI Prabhakar. I agree w/ the stearns components of his documentation. Appreciate palliative care consult & recommendations. Giovanny Lay MD Subjective Mrs. Garcia is having significant lower back pain this morning. She rates her pain a 10 out of 10 at present. No radiation down her legs. She is also having mild abdominal pain similar to the pain she had when she first came to the hospital. No nausea or vomiting. She denies any shortness of breath or chest pain. However she does have a productive cough (clear sputum production). We discussed palliative care measures at this time (see ACP note). ROS: Patient endorses intractable/severe back pain, productive cough, and mild abdominal pain. Patient denies fevers, chest pain, pleuritic CP, SOB, nausea, vomiting, diarrhea, or blood in her urine/stool. Review of Systems Review of Systems: See HPI above Physical Exam Physical Exam: General: Moderate physical distress secondary to lower back pain; (Smooth) at bedside; non-toxic appearing; cooperative; SpO2 94% on RA HEENT: normocephalic, atraumatic; PERRLA with EOMs intact; vision and hearing appear intact at this time Neck: supple; trachea midline Skin: warm, dry without signs of tenting; no cyanosis; no rashes, bruising, lesions, or erythema noted CV: chest wall NTP; RRR; S1/S2 normal; pulses intact and symmetric at radial, DP, and PT Lungs: no acute respiratory distress; however, patient does exhibit hypopneas; symmetrical chest wall expansion; mild expiratory wheeze in the lower lung yepez bilaterally ABD: Soft, NTP; BS present; no rebound/guarding; no distention MSK: no tics or fasciculations; s/p left lower leg amputation; patient exhibits ability to wiggle toes of the right foot; 4/5 health policy manager strength bilaterally Neuro: A&O x 3; normal mood and affect; responds appropriately to all questioning Results & Data Results & Data Vital Signs (Past 12 Hours) Vital Signs Temp Pulse Resp BP Pulse Ox O2 Del Method 08/30/25 08:00 36.7 C 73 22 140/79 94 Room Air 08/29/25 23:30 37.0 C 68 18 100/70 96 Room Air PG Care Time/CCT Total # of Minutes Spent Total Time Spent with Patient: Total time spent is greater than 50% in coordination of care (as documented) at patient's floor/unit and/or counseling patient: Coding [place] [address] SUB INP/OBS CARE 3/50MIN Patient Type Established Medical Decision Making High Complexity Diagnoses Metastatic cancer to liver C78.7 Iron deficiency anemia D50.9 (HFpEF) heart failure with preserved ejection fraction I50.30 Chronic atrial fibrillation I48.20
--- NOTE | 2025-08-30 09:29 | Advance Care Plan Prog Note ---
Advanced Care Planning Note Date of Discussion August 30, 2025 ACP Discussion Diagnoses requiring ACP discussion: New diagnosis of small cell lung cancer with widespread metastasis, intractable back pain A [id number] discussion with the patient and patient's (Smooth) at [facility] regarding the patient's advanced care planning took place during this hospitalization on the above date. The discussion included the explanation and discussion of advance directives and associated forms/documents, as well as the patient's current code status. We also discussed at length the patient's medical conditions (both acute and chronic), general prognosis, treatment options, and goals of care. The following summarizes the discussion: After multiple discussions with oncology and palliative care, patient stated that her main goal at this time is pain control/comfort. We discussed that, by choosing to forego chemotherapy or radiation therapy, this new diagnosis was in all likelihood terminal and her prognosis was poor. Patient is currently listed as a full code. I explained that CODE STATUS could be readdressed at any time; however, her desire to pursue more palliative measures and (focus on quality of life) was somewhat inconsistent with her desire to remain a full code (focus on quantity of life). Patient appears does not mind, and states that she would not want to be "hooked up to machines" or intubated given her current prognosis. She wishes to be changed to a DNR/DNI at this time. is in agreement with this. While there is no paperwork in terms of a medical proxy/POA, her (Smooth) would be default medical proxy in an emergency situations and understands her wishes. Status Resuscitation Status DNR/DNI No Resuscitation Total Time I spent a total of 20 minutes was spent on this discussion, including counseling, answering questions, and completing, if any, pertinent advanced care planning forms/documents.
[2025-08-30] MEDS ORDERED: METHYLNALTREXONE BROMIDE 12 MG/0.6 ML VIAL SQ ONE (10:33)
--- NOTE | 2025-08-30 10:38 | Palliative Care Consultation ---
Date of Consultation August 30, 2025 Assessment & Plan (1) Back pain: (2) Cancer related pain: pt states that she has been taking oxyIR 10mg PRN at home four to five times per day for abdominal pain since it was prescribed for her s/p carotid stent placement. She shared that she was taking it for progressively worsening generalized abdominal gnawing type pain. She shared that she has also developed pain in her lower back since admission. Her shared that the fentanyl patch seemed to work for her but that IV dilaudid "knocked her out". He shared desire to avoid dilaudid if possible, but they would like to try long acting medication to afford more consistent pain relief and better sleep. We discussed starting TD fentanyl at low dose with PRN OxyIR for BTP. Both agreeable. ADDED TD fentanyl 12ucg/hr patch q72h ZACH Continue OxyIR 10mg q4h PRN for BTP (3) Weakness generalized: (4) Counseling regarding goals of care: Met with Anisha and her spouse Luis A at bedside, spent 30 minutes discussing pt values, prognosis and goals of care. Both shared understanding that she has a grossly metastatic cancer. Anisha shared that she knows that she is dying and does not wish to pursue cancer directed therapies, but she is hopeful to be able to get her pain under control and be able to return home for hospice care. She shared that she has a new grand daughter and she has not yet met her. She is hopeful to return home with hospice care and be able to hold her grand daughter before she dies. Goals of care are clearly established for comfort directed care with plan to stabilize her pain and discharge to home with hospice. (5) Therapeutic opioid-induced constipation (OIC): Patient reports several weeks of consistently taking PRN opiates 4-5 times per day. She states that she has had no bowel management regime at home and her last BM was 08/20/25. She has had multiple doses of miralax and stool softeners without relief. It is reasonable to expect that her abd pain and new lower back pain will improve with regular BM. Continue aggressive bowel regime, added relistor as may be some OIC component, although tumor burden may also contribute. If constipation remains refractory to aggressive bowel regime including enemas and relistor, may consider a venting GT for comfort. (6) Comfort measures only status: DNR/DNI - Continue to optimize health per primary with plan fro DC to home with hospice. Barriers to DC remain intractable pain (abd/back) and constipation. Plan as above History of Present Illness Reason for Consultation: goals of care Requesting Physician: Giovanny Lay MD Attending Physician: Giovanny Lay MD History of Present Illness Anisha aguirre is a 65 year old female with past medical history of chronic pancreatitis, tobacco use, COPD, PVD, recent stent placement of right carotid artery who presented to the ED on 08/22/2025 after an outpatient PCP visit for abdominal and back pain. While in the ED, a CTAP was found to have interval diffuse liver mets, adrenal mets, and diffuse lymph node mets at the abdomen, no other acute findings were seen. Hgb was low at 7.8. Lactate was elevated at 2.1. TB elevated at 1.4, Alk phos elevated at 150. AST/ALT WNL. Allergies Allergy/AdvReac Type Severity Reaction Status Date / Time adhesive Allergy Severe SEVERE Verified 08/22/25 15:34 SKIN IRRITATION latex Allergy Mild Rash Verified 08/22/25 15:34 amoxicillin AdvReac Severe LIVER Verified 08/22/25 15:34 FAILURE clavulanic acid AdvReac Severe LIVER Verified 08/22/25 15:34 FAILURE guanfacine AdvReac Intermediate BP PROBLEMS Verified 08/22/25 15:34 hydromorphone [From Dilaudid] AdvReac Intermediate Lethargy / Verified 08/30/25 10:22 Narcosis nifedipine AdvReac Intermediate BP PROBLEMS Verified 08/22/25 15:34 Home Medications Medication Instructions Recorded Confirmed Type aspirin 81 mg tablet,delayed 81 mg PO QAM 12/19/19 08/22/25 History release (Tj Low Dose Aspirin) amitriptyline 50 mg tablet 50 mg PO HS 09/11/22 08/22/25 History sennosides 8.6 mg-docusate sodium 2 tab PO QAM PRN constipation #60 04/18/23 08/22/25 Rx 50 mg tablet (Senokot-S) tabs metoprolol succinate 25 mg 25 mg PO BID 04/25/23 08/22/25 History tablet,extended release 24 hr apixaban 5 mg tablet (Eliquis) 5 mg PO BID 12/31/23 08/22/25 History tlymgr-llvlahza-xqoiihn (pork) 1 cap PO UD 01/05/24 08/22/25 History 3,000-9,500-15,000 unit capsule,del rel (Creon) zolpidem 10 mg tablet (Ambien) 10 mg PO HS 01/05/24 08/22/25 History pantoprazole 40 mg tablet,delayed 40 mg PO QAM #120 tabs 08/21/24 08/22/25 Rx release (Protonix) sodium chloride 1,000 mg soluble 1,000 mg PO BID #180 tabs 09/04/24 08/22/25 Rx tablet pregabalin 300 mg capsule 300 mg PO QAM 11/11/24 08/22/25 History bumetanide 2 mg tablet 2 mg PO QAM 02/28/25 08/22/25 History potassium chloride 20 mEq 40 meq (2 x 20 mEq) PO DAILY #180 02/28/25 08/22/25 Rx tablet,extended release tabs clopidogrel 75 mg tablet (Plavix) 75 mg PO DAILY 07/25/25 08/22/25 History docusate sodium 100 mg capsule 100 mg PO BID PRN constipation #60 08/03/25 08/22/25 Rx caps ferrous sulfate 325 mg (65 mg 325 mg PO BIDM #60 tabs 08/03/25 08/22/25 Rx iron) tablet,delayed release midodrine 5 mg tablet 5 mg PO TID@0800,1200,1700 #21 tabs 08/03/25 08/22/25 Rx oxycodone 5 mg tablet 10 mg PO Q6H PRN Pain 08/22/25 08/22/25 History Patient History Medical History Hx MRSA infection (12/2024) per chart, pos mrsa nasal swab 10/2024; pos wound swab 12/2024 Stump neuralgia PVD (peripheral vascular disease) Poor intravenous access HTN (hypertension) Dyslipidemia History of colitis Anasarca (HFpEF) heart failure with preserved ejection fraction COPD (chronic obstructive pulmonary disease) per chart, pt denies, states she does not see a pulm Hx of deep venous thrombosis per chart 40 years ago, pt. states does not remember History of cellulitis (10/2024) left groin/ abdomen- resolved Hx of fracture of femur (10/2024) left femur, due to a fall- states no surgery Acute blood loss anemia hx History of anesthesia reaction woke [place] middle [place] [facility] [place] GI bleeding Oct 2023, hospitalized at [facility] > due to this, patient switched from Xarelto to Eliquis > no further bleeding issues Splenic infarct pt unaware Acute pancreatitis hx Pancreas cyst AV block with subsequent syncope - s/p dual chamber pacemaker ([employer]) - 2019 per cardio records History of COVID-19 (08/2021) 08/2021- pcr test [place], not hosp; no symptoms, was in the ER for another issue- pt. states "I never had covid" Metabolic alkalosis TRISTAN (dyspnea on exertion) "only if i have fluid build up"- pt. does not ambulate due to needing new prosthesis Severe mitral regurgitation Per patient, attempt for MitraClip [place] was [place] but unsuccessful (07/2021) (little improvement of regurgitation with MitraClip x2- procedure aborted Hx of gastric ulcer Neuropathy Hx of pancreatitis Chronic. Due to heavy alcohol consumption per records Anxiety and depression Hx of migraines Pacemaker Dual-chamber, implanted 2018 (high grade AVB/sinus node dysfunction), [employer], follows with Dr. Perez > last checked in last week GERD (gastroesophageal reflux disease) Hyponatremia Chronic issue- follows with nephrology - pt. 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 currently Chronic pain syndrome Tobacco use disorder Paroxysmal atrial fibrillation Eliquis/pacer - believes she may have had a cardioversion in [place] Surgical History Status post ORIF of fracture of ankle (2016) left ankle, had hardware in place, states had allergic reaction and later required amputation Hx of oral surgery (09/17/22) Debridement Necrotic Bone and Soft Tissue and Associated Infected Periodontally Infected Teeth to Allow Mitral Valve Replacement (Lower Jaw)(Not Applicable) - Ha Champion, DMD Hx of vascular surgery 11/2019, with dr maya, [facility], replaced 2 veins with bovine veins in Rt leg Bilateral femoral endarterectomy with iliac stent (2016) History of surgery (~07/30/21) Attempt for MitraClip [place] was performed but unsuccessful (07/2021); currently being seen in [facility] for a trial for valve replacement History of esophagogastroduodenoscopy (EGD) History of cardiac cath (~04/24/21) 03/2021@ [facility] with Dr. Carbajal, no evidence of epicardial CAD - no stents- follows with dr. perez S/P angiogram of extremity right lower leg S/P femoral-popliteal bypass surgery History of amputation (2017) balta - LLE- had fractured ankle, had metal placed, then had allergy to metal and required amputation History of colonoscopy History of tooth extraction History of appendectomy Family History Unknown No problems noted. 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 Required: No Beliefs That Will Affect Care: None marital status: Current Living Situation: Spouse current occupational status: disabled current occupation: Retired How many Children do You have: 1 Feels Safe at Home: Yes Diet: regular during the past year weight has: decreased > 10 lbs Assistive Devices: Bedside Commode, Hospital Bed, Prosthesis and Wheelchair Review of Systems Review of Systems: All systems reviewed & are unremarkable except as noted in HPI & below Physical Exam Constitutional: well developed, + ill appearing, + obese and cooperative; + uncomfortable Eyes: PERRL, conjunctivae normal, anicteric sclerae ENMT: external ear and nose normal, oropharynx normal Respiratory: normal respiratory effort, lungs clear to auscultation Cardiovascular: RRR, no murmur, no edema Gastrointestinal (Abdomen): Inspection/Auscultation: + abdomen distended and normal bowel sounds Percussion/Palpation: abdomen soft Musculoskeletal: no cyanosis or clubbing, extremities motor strength 5/5 Skin: no rashes, warm and dry Psychiatric: A+Ox3, euthymic affect Results & Data Vital Signs (Past 12 Hours) Vital Signs Temp Pulse Resp BP Pulse Ox O2 Del Method 08/30/25 08:00 36.7 C 73 22 140/79 94 Room Air 08/29/25 23:30 37.0 C 68 18 100/70 96 Room Air Laboratory Results Abnormal lab results 08/30/25 Range/Units 05:45 RBC 2.84 L (4.20-5.40) M/uL Hgb 9.5 L (12.0-16.0) g/dL Hct 29.4 L (37.0-47.0) % MCV 103.5 H (80.0-100.0) fL RDW Std Deviation 78.2 H (36.4-46.3) fL RDW Coeff of Marlon 20.5 H (11.5-14.5) % Plt Count 87 L (130-400) K/uL MPV 12.5 H (9.4-12.4) fL Neut # (Auto) 8.77 H (1.40-6.50) K/uL Lymph # (Auto) 0.80 L (1.20-3.40) K/uL [place] # (Auto) 0.89 H (0.11-0.59) K/uL Potassium 3.3 L (3.5-5.1) mmol/L Chloride 92 L (98-107) mmol/L Carbon Dioxide 36 H (21-32) mmol/L Glucose 116 H (70-99(Fasting)) mg/dl Diagnostic Findings Abdomen/Pelvis CT 08/22/25 10:[address] WITH IV CONTRAST CT DOSE: 989.59 mGy.cm HISTORY: abd and back pain, n/v, recent carotid surg TECHNIQUE: Multiaxial CT images of the abdomen and pelvis were performed following the IV administration of 112 cc of Optiray, A dose lowering technique was utilized adhering to the principles of ALARA. COMPARISON STUDY: 11/27/2024 FINDINGS: There is a very small right pleural effusion. ABDOMEN: There are numerous interval small masses and nodules throughout the liver, largest in the left hepatic lobe measures 2 cm. There are numerous enlarged lymph nodes at the abdomen and lower chest right pericardial region. Largest conglomerate lymph node mass measures 5 cm between the abdominal aorta and jalil hepatis region. There are pancreatic calcifications consistent with sequela of chronic pancreatitis. There are bilateral adrenal nodules 2 cm on the right and 1 cm on the left. The kidneys show no hydronephrosis. Stable small cyst lower left kidney. There are scattered atherosclerotic calcifications. No abdominal aortic aneurysm. Pelvis: Uterus and adnexa are grossly unremarkable. Urinary bladder is mildly distended. There is sigmoid diverticulosis. No acute diverticulitis. No bowel inflammation or obstruction seen. No free fluid or free air. 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 There is lumbar degenerative disc disease. No acute findings seen at the visualized osseous structures: IMPRESSION: 1. Interval diffuse liver metastatic disease, adrenal metastatic disease, and diffuse lymph node metastatic disease at the abdomen. 2. No other acute findings seen. Otherwise as described. ACT 112: Positive. There are findings on this exam that require communication between the performing entity and the patient following Patient Test Result Information Act ([place] Act 112) guidelines. The above report was generated using voice recognition software. It may contain grammatical, syntax or spelling errors. Electronically signed by: Viktor Mayorga M.D. 08/22/2025 12:49 PM Chest CTA 08/23/25 08:11 CT ANGIOGRAM OF THE CHEST CLINICAL HISTORY: Lung mass. COMPARISON STUDY: Chest CT dated 11/27/2024. Chest x-ray dated 07/30/2005. TECHNIQUE: Following the IV administration of 119 cc of Optiray 320, CT angiogram of the chest was performed from the thoracic inlet to the upper abdomen utilizing the dissection protocol. Images are reviewed in the axial, sagittal, and coronal planes. 3-D MIPS images are created and assessed. IV contrast was administered without complication. A dose lowering technique was utilized adhering to the principles of ALARA. The examination is degraded by motion artifact, streak artifact from the left arm which could not be elevated above the chest, and suboptimal positioning of the patient within the CT gantry. CT DOSE: 855.51 mGy.cm FINDINGS: Thyroid: Imaged portions of the thyroid gland are normal in size and attenuation. Thoracic aorta: There is atherosclerotic calcification of the thoracic aorta, which is normal in caliber and demonstrates standard 3-vessel arch anatomy. No dissection is seen. There is moderate to high-grade stenosis of the origin of the innominate artery seen on axial image #61. Mild stenosis at the origins of the left common carotid and left subclavian arteries. Pulmonary vasculature: The main pulmonary arteries are mildly dilated suggesting pulmonary artery hypertension. There are no filling defects within the main, lobar, or segmental pulmonary emboli to indicate pulmonary embolus. Heart: A pacemaker is seen in the left chest wall. The heart is enlarged and without pericardial effusion. There is coronary artery atherosclerosis. Lungs and pleural spaces: Evaluation of the lung parenchyma is degraded by motion artifact. There is a abnzx-te-jcnbcybl right pleural effusion. No pleural fluid is seen on the left. There is a large right hilar/suprahilar paramediastinal mass. This measures approximately 8.5 x 9.5 x 5.5 cm in aggregate dimension as seen on image #60. This is new from 11/27/2024. This encases the right upper lobe bronchovascular structure with post obstructive pneumonitis throughout the right upper lung. There is left basilar atelectasis. A 5 mm left apical nodule on image #35 is unchanged. Lower neck: There is bulky supraclavicular lymphadenopathy, right side greater than left. A right supraclavicular rich aggregate on image #17 measures approximately 5.5 x 3 cm in aggregate dimension Mediastinum: The large right hilar mass invades the right aspect of the mediastinum extending the subcarinal region. There is bulky mediastinal lymphadenopathy. An anterior mediastinal node on image #91 measures 3.3 x 3.0 cm. A large right peritracheal node on image #56 measures 5.2 x 2.9 cm. Prevascular nodes measure up to 1.3 cm in short axis. Jocelin: There are calcified right hilar nodes. Note that the right hilum is largely obscured. No hilar adenopathy seen on the left. Axillae: There is no axillary lymphadenopathy. Upper abdomen: There are calcified granulomas noted in the spleen. Bulky lymphadenopathy is seen in the upper abdomen. A portacaval node is partially imaged on image #233 and measures 4.2 x 3.0 cm. There are enlarged gastrohepatic nodes. The largest is seen on image #211 and measures 2.2 x 1.8 cm. There are also mildly enlarged retrocrural lymph nodes. Nodular thickening of the adrenal glands is similar to previous. An enlarged right cardiophrenic node on image #179 measures 1.4 x 1.1 cm. Small nodules and trace ascitic fluid are seen along the right posterior lobe of the liver. The liver is cirrhotic in morphology and heterogeneous in attenuation. Skeletal structures: The skeletal structures are osteopenic. Degenerative change and mild kyphoscoliosis is noted in the thoracic spine. No lytic or blastic bony lesions are seen. IMPRESSION: 1. Unremarkable CT angiogram of the thoracic aorta noting advanced atherosclerotic change. 2. 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 3. There is no evidence of pulmonary embolus in the main, lobar, or segmental pulmonary arteries. 4. Cardiomegaly. 5. There is an approximately 9.5 cm right perihilar/suprahilar paramediastinal mass. This is new from 11/27/2024 and invades the mediastinum. This should be considered neoplastic until proven otherwise. 6. The mass encases right upper lobe bronchovascular structures with postobstructive pneumonitis in the right upper lobe. 7. There is bulky supraclavicular, mediastinal, and upper abdominal lymphadenopathy. The right supraclavicular rich aggregate would be easily amenable to percutaneous tissue sampling. 8. Small to moderate right pleural effusion. 9. Additional findings as above. ACT 112: Positive. There are findings on this exam that require communication between the performing entity and the patient following Patient Test Result Information Act ([place] Act 112) guidelines. Electronically signed by: Angus Marte M.D. 08/23/2025 4:02 PM Lumbar Spine MRI 08/27/25 08:12 MRI OF THE LUMBAR SPINE WITH AND WITHOUT CONTRAST CLINICAL HISTORY: eval for spine mets, low back pain COMPARISON STUDY: No previous studies for comparison. TECHNIQUE: Utilizing a 1.5 Ayala magnet and dedicated coil, multiplanar, multiecho imaging of the lumbar spine was performed before and after uneventful IV administration of 7 mL of Gadavist. FINDINGS: There are innumerable rounded foci of marrow replacement involving the T11-S4 vertebral bodies. In addition there is evidence for marrow replacement involving the posterior elements.. The findings are highly suspicious for widespread bony metastatic disease. In addition there are areas of marrow replacement involving the iliac bones and sacrum. There are multiple hepatic masses suspicious for metastatic disease. There is also evidence for retroperitoneal adenopathy as well as adenopathy in the region of the jalil hepatis. No spinal cord lesions are visualized. There are no epidural masses identified. There are multilevel degenerative changes present within the spine with mild spinal stenosis at the L1-2 and L2-3 levels. There is moderate to severe spinal stenosis at the L3-4 level. There is mild to moderate spinal stenosis at the L4- 5 level. IMPRESSION: 1. Widespread metastatic disease throughout the visualized portions of the thoracic lumbar and sacral spine. In addition there is evidence for iliac and sacral metastasis. 2. Multiple hepatic masses consistent with metastatic disease 3. Jalil hepatis and retroperitoneal pathologic adenopathy 4. No spinal cord or cauda equina masses. No evidence of epidural metastatic disease 5. Multilevel spondylytic changes with multilevel spinal stenosis. ACT 112: Negative or not required by law. Electronically signed by: Greg Moreira M.D. 08/27/2025 3:47 PM Aspiration 08/27/25 11:30 ULTRASOUND-GUIDED RIGHT SUPRACLAVICULAR MASS FNA CLINICAL HISTORY: Multiple right supraclavicular masses PROCEDURE: Procedure and risks were complained. Informed consent was obtained. A final timeout was completed. The neck was prepped and draped in sterile fashion. 1% lidocaine was utilized for skin anesthesia. Utilizing ultrasound guidance, a 25-gauge needle was advanced into the right supraclavicular mass. Ultrasound images were obtained. 3 aspirates were obtained and given to the pathologist for review. The patient tolerated the procedure well. IMPRESSION: Right supraclavicular mass FNA as detailed above. Performed, dictated, and signed by Wayne Capps PA-C; to be co-signed by Dr. Diogo Johnson. Electronically signed by: Diogo Johnson M.D. 08/27/2025 3:31 PM Brain MRI 08/28/25 07:00 MRI OF THE BRAIN WITHOUT IV CONTRAST CLINICAL HISTORY: Right hilar mass. Assess for metastatic disease. COMPARISON STUDY: CT scan the head no contrast dated 11/27/2024 TECHNIQUE: MRI of the brain was performed utilizing various T1 and T2-weighted sequences in the axial, sagittal, and coronal planes. IV contrast was not administered for this examination. FINDINGS: The examination was ordered to evaluate for metastatic disease as part of a staging procedure. The patient was unable to tolerate the examination and refused to continue. The study consists of sagittal T1, axial diffusion, axial T2 gradient echo, and axial T2 sequence. A portion of the coronal FLAIR sequence was obtained. No contrast images were obtained. No intra or extra-axial mass lesions are visualized in this noncontrast study. Axial diffusion-weighted images reveal no evidence of acute or subacute origin. Gradient echo images are degraded by motion artifact, but there is no convincing evidence of hemorrhage. T2 and FLAIR images reveal scattered foci of increased signal within the periventricular white matter likely on a small vessel basis. Small lacunar infarcts are suspected within the thalamus and basal ganglia. There are no areas suspicious for cytotoxic edema. Note is made of multiple areas of marrow replacement involving the upper cervical spine suspicious for metastatic disease. The marrow signal within the calvarium is also heterogeneous and calvarial metastatic deposits are also likely. IMPRESSION: 1. Multifocal areas of marrow replacement viewed as highly suspicious for skeletal metastasis 2. No evidence of intracranial metastasis on this technically limited study which was performed without contrast ACT 112: Negative or not required by law. Electronically signed by: Greg Moreira M.D. 08/28/2025 1:42 PM Medications Administered Current Inpatient Medications Acetaminophen (Acetaminophen 325 Mg Tab) 650 mg PO Q4H PRN PRN Reason: pain/fever Stop: 09/21/25 14:55 Last Admin: 08/30/25 14:44 Dose: 650 mg Amitriptyline HCl (Amitriptyline Hcl 50 Mg Tab) 50 mg PO HS ZACH Stop: 09/21/25 20:59 Last Admin: 08/29/25 20:36 Dose: 50 mg Lipase/Protease/Amylase (Pancreaze (Lipase 4,200u) Cap) 1 cap PO QIDM PRN PRN Reason: MEALS AND SNACKS Stop: 09/21/25 19:01 Last Admin: 08/30/25 12:36 Dose: 1 cap Apixaban (Apixaban 5 Mg Tablet) 5 mg PO BID ZACH Stop: 09/21/25 20:59 Last Admin: 08/30/25 09:28 Dose: 5 mg Aspirin (Aspirin 81 Mg Ectab) 81 mg PO QAM ZACH Stop: 09/22/25 08:59 Last Admin: 08/30/25 09:28 Dose: 81 mg Bumetanide (Bumetanide 1 Mg Tab) 2 mg PO QAM ZACH Stop: 09/24/25 08:59 Last Admin: 08/29/25 08:04 Dose: 2 mg Clopidogrel Bisulfate (Clopidogrel Bisulfate 75 Mg Tab) 75 mg PO DAILY ZACH Stop: 09/22/25 08:59 Last Admin: 08/30/25 09:28 Dose: 75 mg Fentanyl (Fentanyl 12 Mcg/Hr Tdsy) 1 patch TD Q72H [facility] Stop: 09/13/25 10:59 Last Admin: 08/30/25 11:19 Dose: 1 patch Ferrous Sulfate (Ferrous Sulfate 325 Mg Tab) 325 mg PO DAILY [facility] Stop: 09/22/25 08:59 Last Admin: 08/30/25 09:31 Dose: Not Given Melatonin (Melatonin 3 Mg Tab) 3 mg PO HS PRN PRN Reason: Insomnia Stop: 09/21/25 14:55 Metoprolol Succinate (Metoprolol Succ 25mg Ext Rel Tab) 25 mg PO BID [facility] Stop: 09/21/25 20:59 Last Admin: 08/30/25 09:31 Dose: 25 mg Midodrine (Midodrine Hcl 2.5 Mg Tab) 5 mg PO TID@0800,1200,1700 [facility] Stop: 09/21/25 16:59 Last Admin: 08/30/25 12:35 Dose: 5 mg Miscellaneous (Fentanyl Patch Remove & Waste) 1 each N/A Q72H [facility] Stop: 09/29/25 10:58 Last Admin: 08/30/25 12:38 Dose: Not Given Miscellaneous (Check Fentanyl Patch Placement) 1 each N/A QS [facility] Stop: 09/29/25 15:59 Naloxone HCl (Naloxone Hcl 0.4 Mg/1 Ml Vial/Carp) 0.1 mg IV Q5M PRN PRN Reason: Oversedation/Resp Depression Ondansetron HCl (Ondansetron Inj 2 Mg/Ml 2 Ml Vial) 4 mg IV Q6H PRN PRN Reason: Nausea Stop: 09/21/25 14:55 Oxycodone HCl (Oxycodone Hcl Ir 5 Mg Tab (Immediate Release)) 10 mg PO Q6H PRN PRN Reason: Severe Pain (7,8,9,10) on NRS Stop: 09/13/25 09:06 Pantoprazole Sodium (Pantoprazole 40 Mg Tab) 40 mg PO QAM [facility] Stop: 09/22/25 08:59 Last Admin: 08/30/25 09:30 Dose: 40 mg Polyethylene Glycol (Polyethylene (Miralax) 17 Gm Pack) 17 gm PO DAILY PRN PRN Reason: Constipation Stop: 09/21/25 14:55 Polyethylene Glycol (Polyethylene (Miralax) 17 Gm Pack) 17 gm PO DAILY [facility] Stop: 09/28/25 08:59 Last Admin: 08/30/25 09:44 Dose: 17 gm Potassium Chloride (Potassium Chloride Crtab 20 Meq Tabcr) 40 meq PO DAILY [facility] Stop: 09/25/25 08:59 Last Admin: 08/30/25 09:34 Dose: 40 meq Pregabalin (Pregabalin 150 Mg Cap) 300 mg PO QAM [facility] Stop: 09/22/25 08:59 Last Admin: 08/30/25 09:30 Dose: 300 mg Sennosides (Senna 8.6 Mg Tab) 8.[address] [facility] Stop: 09/27/25 20:59 Last Admin: 08/29/25 20:36 Dose: 8.6 mg Sodium Chloride (Sodium Chloride 1 Gm Tablet) 1 gm PO QAM [facility] Stop: 09/28/25 08:59 Last Admin: 08/30/25 09:31 Dose: 1 gm Zolpidem Tartrate (Zolpidem Tartrate 5 Mg Tab) [address] [facility] Stop: 09/21/25 20:59 Last Admin: 08/29/25 20:36 Dose: 10 mg PG Care Time/CCT Total # of Minutes Spent Total Time Spent with Patient: Total time spent is greater than 50% in coordination of care (as documented) at patient's floor/unit and/or counseling patient: Advanced Care Planning 48664 Advanced Care Planning 30 [place] [address] IN/OBS CONSULT LVL 4,60M Patient Type New History Expanded Problem Focused Exam Expanded Problem Focused Medical Decision Making Moderate Complexity Diagnoses Back pain M54.9 Cancer related pain G89.3 Weakness generalized R53.1 Counseling regarding goals of care Z71.89 Therapeutic opioid-induced constipation (OIC) K59.03; T40.2X5A Comfort measures only status Z51.5 Additional Codes Advanced Care Planning - 56161 Advanced Care Planning 30 Min: 18369 Advanced Care Planning 30 Min ([id number])
[2025-08-30] MEDS: NALOXEGOL OXALATE 25 MG TAB PO ONE (11:28)
[2025-08-31 05:03] LABS: Hematocrit (blood only) 29.0 % (37.0-47.0); Hemoglobin 9.4 g/dL (12.0-16.0); Immature Granulocytes # (auto) 0.07 K/uL (0.01-0.20); Immature Granulocytes % (auto) 0.7 %; Mean Corpuscular Hemoglobin 33.5 pg (25.0-34.0); Mean Corpuscular Volume 103.2 fL (80.0-100.0); Platelet Count 83 K/uL (130-400); RDW Standard Deviation 75.2 fL (36.4-46.3); Red Blood Count 2.81 M/uL (4.20-5.40); White Blood Count 10.19 K/ul (4.8-10.8)
[2025-08-31 05:19] LABS: Anion Gap 7.0 (3-11); Calcium 8.8 mg/dl (8.6-10.3); Carbon Dioxide 33.0 mmol/L (21-32); Chloride 94.0 mmol/L (98-107); Potassium 3.8 mmol/L (3.5-5.1); Sodium 134.0 mmol/L (136-145)
[2025-08-31 05:25] LABS: Blood Urea Nitrogen 17.0 mg/dl (6-23); Creatinine Clr Calc Pharmacy 67.8 ml/min; Glucose 93.0 mg/dl (70-99(Fasting))
--- NOTE | 2025-08-31 12:28 | Hospitalist Progress Note ---
Date of Service August 31, 2025 Assessment & Plan (1) Metastatic cancer to liver: (2) Iron deficiency anemia: (3) (HFpEF) heart failure with preserved ejection fraction: (4) Chronic atrial fibrillation: Plan This is a 65 year old female with past medical history of chronic pancreatitis, tobacco use, COPD, PVD, recent stent placement of right carotid artery who presented to the ED on 08/22/2025 after an outpatient PCP visit for abdominal and back pain. #Small cell lung cancer with widespread metastasis IR biopsy of the right supraclavicular lymph node resulted in small cell lung cancer Patient + updated regarding these findings on 08/29 CTAP w/ diffuse metastatic disease including liver, adrenal glands, & lymph nodes Chest CTA significant for 9.5cm right perihilar/suprahilar paramediastinal mass. New from 11/27/2024. Invades mediastinum While no respiratory distress or episodes of hypoxia while in the hospital, suspect that if this worsens, patient may require pulmonology consult for bronchial stenting Lumbar spine MRI obtained on 08/27 Illustrated widespread metastatic disease throughout the thoracic lumbar sacral spine; no evidence of spinal cord or cauda equina masses Oncology consulted, appreciate recommendations Brain MRI ordered to assess full staging However, patient was unable to tolerate full brain MRI, and only brain MRI without contrast was obtained Skeletal mets appreciated; no intracranial mets appreciated, however difficult to assess given noncontrasted study Advance care planning discussion took place on 08/30: Patient + declined induction therapy, would like to focus on palliative/hospice care at this time GOC: home with hospice CM following Referral sent to [facility]; being set up to start on Monday 09/03 Prescription signed for hospice evaluation and treatment Palliative care consult appreciated for pain control regimen Would avoid Dilaudid due to increased sedation/lethargy, and concern for CO2 narcosis when taking Titrate fentanyl patch from 12.5 -> 25 mg on 08/31 #Constipation Suspect opioid-induced Consider methylnaltrexone bromide ("Relistor") Naloxegol oxalate ("Moventig") 12.5 mg p.o. given the morning of 08/30 at 1128 Continue MiraLAX QAM + Senna HS Fleet enema PRN #Anemia Hx of NETTIE, on PO iron outpatient. Hgb 7.8 on admission. dropped to 6.6 on 08/23, s/p 1 Unit PRBCs, now stable Okay to resume Eliquis on 08/27 Iron does appear slightly elevated at 170; remainder of panel WNL --> reduce to daily PO iron supplementation B12 elevated at 1446 & Folate WNL #H/o Hyponatremia Trial of sodium chloride 1000 mg daily led to sodium dropped from 139 -> 134 H/o chronic hyponatremia Restart sodium chloride 1000 mg tablets BID Monitor sodium levels daily while inpatient #R carotid artery stenosis Recent TCAR w/ Dr. Maya on 08/01/2025 that required ICU stay following secondary to hypotension requiring pressors and subsequently discharged home on Midodrine TID. Continue ASA/Plavix #Hypotension Continue Midodrine TID #Chronic pancreatitis Abdominal pain may be secondary to underlying chronic pancreatitis vs liver mets Continue Creon supplement Pain regimen as above #A fib Rate controlled on admission Continue Metoprolol #CHF Echo from 07/19 - EF 55-60%; mod tricuspid regurg; mod mitral regurg Caution volume of IVF given during hospital stay. Bumex held on 08/30 and 08/31 as patient appeared clinically dry + hypokelmic / hypochloremic on labs Plan to restart Bumex the morning of 09/01 #Neuropathy - Pregabalin #Mental health - Amitriptyline, Ambien #GERD - PPI Disposition: Goal is to return home on hospice care; continued stay for pain control [facility] working to set things up (they can report edly start her on Wednesday, 09/03) DVT PPx: Eliquis Admission and Anticipated Discharge Date Admission Date: August 22, 2025 Supervising Physician Co-Signing Physician Notes Attending Attestation & Progress Note: Pt seen/examined, chart reviewed, care plan d/w PA Manan Prabhakar. I agree w/ the stearns components of his documentation. Giovanny Lay MD Subjective Mrs. Garcia is still having out of 10 back pain this morning. She believes that the fentanyl patch has not been helping much, and reports that they just increased it "up to the next level". Additionally, patient has not had a bowel movement since last Wednesday. at bedside reports she was complaining of a headache yesterday, but this resolved. No difficulty with breathing. They do not have supplemental oxygen set up at home. ROS: Patient endorses intractable lower back pain, constipation, and mild/dull generalized abdominal pain. Patient denies fevers overnight, chest pain, SOB, pleuritic CP, hemoptysis, nausea, or vomiting. Review of Systems Review of Systems: See HPI above Physical Exam Physical Exam: General: Moderate physical distress secondary to lower back pain; patient keeps her eyes closed while in bed (unless asked to open them); (Smooth) at bedside; non-toxic appearing; cooperative; frail-appearing; SpO2 94% on RA HEENT: normocephalic, atraumatic; PERRLA; vision and hearing appear intact at this time Neck: supple; trachea midline Skin: warm, dry without signs of tenting; no cyanosis; no rashes, bruising, lesions, or erythema noted CV: chest wall NTP; RRR; S1/S2 normal; pulses intact and symmetric at radial, DP, and PT Lungs: no acute respiratory distress; diminished breath sounds in the right lower lung field when compared to the left ABD: Soft, NTP; BS present; no rebound/guarding; no distention : Torres catheter in place draining dark orange urine MSK: no tics or fasciculations; s/p left lower leg amputation; patient exhibits ability to wiggle toes of the right foot Neuro: A&O x 3; normal mood and affect; responds appropriately to all questioning Results & Data Results & Data Vital Signs (Past 12 Hours) Vital Signs Temp Pulse Resp BP Pulse Ox Pulse Ox O2 Del Method 08/31/25 09:00 94 08/31/25 09:00 Room Air 08/31/25 07:26 36.5 C 68 15 138/38 L 93 Room Air O2 Del Method 08/31/25 09:00 Room Air 08/31/25 09:00 08/31/25 07:26 PG Care Time/CCT Total # of Minutes Spent Total Time Spent with Patient: Total time spent is greater than 50% in coordination of care (as documented) at patient's floor/unit and/or counseling patient: C[place] [address] SUB INP/OBS CARE 3/50MIN Patient Type Established Medical Decision Making High Complexity Diagnoses Metastatic cancer to liver C78.7 Iron deficiency anemia D50.9 (HFpEF) heart failure with preserved ejection fraction I50.30 Chronic atrial fibrillation I48.20
--- NOTE | 2025-08-31 12:46 | Palliative Care Progress Note ---
Date of Service August 31, 2025 Assessment & Plan (1) Back pain: (2) Cancer related pain: Plan: pt states that she has been taking oxyIR 10mg PRN at home four to five times per day for abdominal pain since it was prescribed for her s/p carotid stent placement. She shared that she was taking it for progressively worsening generalized abdominal gnawing type pain. She shared that she has also developed pain in her lower back since admission. Her shared that the fentanyl patch seemed to work for her but that IV dilaudid "knocked her out". He shared desire to avoid dilaudid if possible, but they would like to try long acting medication to afford more consistent pain relief and better sleep. We discussed starting TD fentanyl at low dose with PRN OxyIR for BTP. Both agreeable. INCREASED TD fentanyl to 25ucg/hr patch q72h [facility] Continue OxyIR 10mg q4h PRN for BTP Last 24h hour OMEs: 75 (previous 24hr [] OME) PRN Oxycodone IR 10mg x3 = 45 OME TD fentanyl 12ucg/hr patch = 30 OME (3) Weakness generalized: (4) Counseling regarding goals of care: Plan: Met with Anisha and her spouse Luis A at bedside, spent 30 minutes discussing pt values, prognosis and goals of care. Both shared understanding that she has a grossly metastatic cancer. Anisha shared that she knows that she is dying and does not wish to pursue cancer directed therapies, but she is hopeful to be able to get her pain under control and be able to return home for hospice care. She shared that she has a new grand daughter and she has not yet met her. She is hopeful to return home with hospice care and be able to hold her grand daughter before she dies. Goals of care are clearly established for comfort directed care with plan to stabilize her pain and discharge to home with hospice. (5) Therapeutic opioid-induced constipation (OIC): Plan: Patient reports several weeks of consistently taking PRN opiates 4-5 times per day. She states that she has had no bowel management regime at home and her last BM was 08/20/25. She has had multiple doses of miralax and stool softeners without relief. It is reasonable to expect that her abd pain and new lower back pain will improve with regular BM. Continue aggressive bowel regime, added relistor as may be some OIC component, although tumor burden may also contribute. Relistor administered on 08/30/25 x1 dose. If constipation remains refractory to aggressive bowel regime including enemas and relistor, consider repeat dose of relistor on Wednesday. (6) Comfort measures only status: Plan: DNR/DNI - Continue to optimize health per primary with plan fro DC to home with hospice. Barriers to DC remain intractable pain (abd/back) and constipation. Plan as above Admission and Anticipated Discharge Date Admission Date: August 22, 2025 Subjective assessed pt at bedside, no visitors present. She is awake and alert this morning and c/o 9::10 pain in abd and lower back. She states she is passing more gas today, but still has not had BM. She rec'd one dose of relistor Review of Systems Review of Systems: All systems reviewed & are unremarkable except as noted in Subjective Physical Exam Constitutional: well developed, + ill appearing, + obese and cooperative; + uncomfortable Eyes: PERRL, conjunctivae normal, anicteric sclerae ENMT: external ear and nose normal, oropharynx normal Respiratory: normal respiratory effort, lungs clear to auscultation Cardiovascular: RRR, no murmur, no edema Gastrointestinal (Abdomen): Inspection/Auscultation: + abdomen distended and normal bowel sounds Percussion/Palpation: abdomen soft Musculoskeletal: no cyanosis or clubbing, extremities motor strength 5/5 Skin: no rashes, warm and dry Psychiatric: A+Ox3, euthymic affect Results & Data Vital Signs (Past 12 Hours) Vital Signs Temp Pulse Resp BP Pulse Ox Pulse Ox O2 Del Method 08/31/25 09:00 94 08/31/25 09:00 Room Air 08/31/25 07:26 36.5 C 68 15 138/38 L 93 Room Air O2 Del Method 08/31/25 09:00 Room Air 08/31/25 09:00 08/31/25 07:26 PG Care Time/CCT Total # of Minutes Spent Total Time Spent with Patient: Total time spent is greater than 50% in coordination of care (as documented) at patient's floor/unit and/or counseling patient: Coding [place] [address] SUB INP/OBS CARE 3/50MIN Patient Type Established History Expanded Problem Focused Exam Expanded Problem Focused Medical Decision Making Moderate Complexity Diagnoses Back pain M54.9 Cancer related pain G89.3 Weakness generalized R53.1 Counseling regarding goals of care Z71.89 Therapeutic opioid-induced constipation (OIC) K59.03; T40.2X5A Comfort measures only status Z51.5
[2025-08-31] MEDS: SODIUM CHLORIDE 1 GM TABLET PO SCH (21:19)
[2025-09-01] MEDS: SOD PHOSPHATE/SOD BIPHOSPHATE ENEMA 132 ML BTL PR PRN (10:55)
--- NOTE | 2025-09-01 13:31 | Hospitalist Progress Note ---
Date of Service September 01, 2025 Assessment & Plan (1) Metastatic cancer to liver: (2) Iron deficiency anemia: (3) (HFpEF) heart failure with preserved ejection fraction: (4) Chronic atrial fibrillation: Plan This is a 65 year old female with past medical history of chronic pancreatitis, tobacco use, COPD, PVD, recent stent placement of right carotid artery who presented to the ED on 08/22/2025 after an outpatient PCP visit for abdominal and back pain. #Small cell lung cancer with widespread metastasis IR biopsy of the right supraclavicular lymph node resulted in small cell lung cancer Patient + updated regarding these findings on 08/29 CTAP w/ diffuse metastatic disease including liver, adrenal glands, & lymph nodes Chest CTA significant for 9.5cm right perihilar/suprahilar paramediastinal mass. New from 11/27/2024. Invades mediastinum While no respiratory distress or episodes of hypoxia while in the hospital, suspect that if this worsens, patient may require pulmonology consult for bronchial stenting Lumbar spine MRI obtained on 08/27 Illustrated widespread metastatic disease throughout the thoracic lumbar sacral spine; no evidence of spinal cord or cauda equina masses Oncology consulted, appreciate recommendations Brain MRI ordered to assess full staging However, patient was unable to tolerate full brain MRI, and only brain MRI without contrast was obtained Skeletal mets appreciated; no intracranial mets appreciated, however difficult to assess given noncontrasted study Advance care planning discussion took place on 08/30: Patient + declined induction therapy, would like to focus on palliative/hospice care at this time GOC: home with hospice CM following Referral sent to [facility]; being set up to start on Monday 09/03 Prescription signed for hospice evaluation and treatment Palliative care consult appreciated for pain control regimen Would avoid Dilaudid due to increased sedation/lethargy, and concern for CO2 narcosis when taking Titrate fentanyl patch from 12.5 -> 25 mg on 08/31 #Opioid-induced lethargy Recurrent on 09/01 Down titrate fentanyl patch from 25 -> 12.5 mg Decrease oxycodone 10 -> 5mg p.o. q6h ? Alternative option OxyContin VBG and BMP WNL Will place patient on 2L NC for now Continuous pulse oximetry #Constipation Suspect opioid-induced Consider methylnaltrexone bromide ("Relistor") Naloxegol oxalate ("Moventig") 12.5 mg p.o. given the morning of 08/30 and ordered again on the evening of 09/01 Continue MiraLAX QAM + Senna HS Fleet enema PRN #Anemia Hx of NETTIE, on PO iron outpatient. Hgb 7.8 on admission. dropped to 6.6 on 08/23, s/p 1 Unit PRBCs, now stable Okay to resume Eliquis on 08/27 Iron does appear slightly elevated at 170; remainder of panel WNL --> reduce to daily PO iron supplementation B12 elevated at 1446 & Folate WNL #H/o Hyponatremia Trial of sodium chloride 1000 mg daily led to sodium dropped from 139 -> 134 H/o chronic hyponatremia Restart sodium chloride 1000 mg tablets BID Monitor sodium levels daily while inpatient #R carotid artery stenosis Recent TCAR w/ Dr. Maya on 08/01/2025 that required ICU stay following secondary to hypotension requiring pressors and subsequently discharged home on Midodrine TID. Continue ASA/Plavix #Hypotension Continue Midodrine TID #Chronic pancreatitis Abdominal pain may be secondary to underlying chronic pancreatitis vs liver mets Continue Creon supplement Pain regimen as above #A fib Rate controlled on admission Continue Metoprolol #CHF Echo from 07/19 - EF 55-60%; mod tricuspid regurg; mod mitral regurg Caution volume of IVF given during hospital stay. Bumex held on 08/30 and 08/31 as patient appeared clinically dry + hypokelmic / hypochloremic on labs Plan to restart Bumex the morning of 09/01 #Neuropathy - Pregabalin #Mental health - Amitriptyline, Ambien #GERD - PPI Disposition: Goal is to return home on hospice care; continued stay for pain control [facility] - [facility] working to set things up (they can reportedly start her on Wednesday, 09/03) DVT PPx: Eliquis Admission and Anticipated Discharge Date Admission Date: August 22, 2025 Subjective Mrs. Garcia is lethargic again today. not at bedside. Patient is a poor historian at this time due to lethargy/sedation, likely opiate induced. She does occasionally respond with one-word replies; she denies any pain at this time. Unable to obtain ROS at this time. Review of Systems Review of Systems: See HPI above Physical Exam Physical Exam: General: Moderate physical distress secondary to lower back pain; patient keeps her eyes closed while in bed (unless asked to open them); non-toxic appearing; cooperative; frail-appearing; SpO2 94% on RA HEENT: normocephalic, atraumatic; PERRLA; vision and hearing appear intact at this time Neck: supple; trachea midline Skin: warm, dry without signs of tenting; no cyanosis; no rashes, bruising, lesions, or erythema noted CV: chest wall NTP; RRR; S1/S2 normal; pulses intact and symmetric at radial, DP, and PT Lungs: no acute respiratory distress; diminished breath sounds in the right lower lung field when compared to the left ABD: Soft, NTP; BS present; no rebound/guarding; no distention : Torres catheter in place draining dark orange urine MSK: no tics or fasciculations; s/p left lower leg amputation; patient exhibits ability to wiggle toes of the right foot Neuro: A&O x 3; normal mood and affect; responds appropriately to all questioning Results & Data Results & Data Vital Signs (Past 12 Hours) Vital Signs Temp Pulse Resp BP Pulse Ox Pulse Ox O2 Del Method 09/01/25 09:00 95 09/01/25 08:04 36.6 C 84 16 120/71 94 Room Air 09/01/25 07:49 Room Air O2 Del Method 09/01/25 09:00 Room Air 09/01/25 08:04 09/01/25 07:49 PG Care Time/CCT Total # of Minutes Spent Total Time Spent with Patient: Total time spent is greater than 50% in coordination of care (as documented) at patient's floor/unit and/or counseling patient: Coding [place] [address] SUB INP/OBS CARE 3/50MIN Patient Type Established History Comprehensive Exam Comprehensive Medical Decision Making High Complexity Diagnoses Metastatic cancer to liver C78.7 Iron deficiency anemia D50.9 (HFpEF) heart failure with preserved ejection fraction I50.30 Chronic atrial fibrillation I48.20
[2025-09-01 14:25] LABS: Base Excess VBG 8.8 mEq/L; HCO3 VBG 33 mmol/L; Oxygen Saturation VBG 84.7 %; PCO2 VBG 42 mmHg (38-50); PO2 VBG 53 mmHg; pH VBG 7.50 (7.36-7.41)
[2025-09-01 14:32] LABS: Hematocrit (blood only) 31.6 % (37.0-47.0); Hemoglobin 10.0 g/dL (12.0-16.0)
[2025-09-01 14:46] LABS: Anion Gap 9.0 (3-11); Blood Urea Nitrogen 18.0 mg/dl (6-23); Calcium 8.8 mg/dl (8.6-10.3); Carbon Dioxide 32.0 mmol/L (21-32); Chloride 93.0 mmol/L (98-107); Creatinine Clr Calc Pharmacy 63.7 ml/min; Glucose 93.0 mg/dl (70-99(Fasting)); Potassium 4.1 mmol/L (3.5-5.1); Sodium 134.0 mmol/L (136-145)
[2025-09-01] MEDS: NALOXEGOL OXALATE 25 MG TAB PO ONE (19:53)
--- NOTE | 2025-09-02 02:23 | XRay Report ---
EXAM: XR chest 1V portable CLINICAL HISTORY: Increased O2 requirements, crackles TECHNIQUE: A chest X-ray was obtained in AP projection. COMPARISON: Prior X-ray and CT dated 11/27/2024. FINDINGS: Pulmonary Parenchyma: Interval: newly developed large right upper and smaller right lower lung zone opacities are present. Newly seen opacification of the right costo-diaphragmatic recess, likely secondary to pleural effusion. A few right upper/middle lung zone pulmonary nodular opacities are unchanged. Resolution of the previously seen left pleural effusion. Heart and Mediastinum: Mild cardiomegaly. No mediastinal widening or masses. No hilar or mediastinal lymphadenopathy. Bony Thorax: The bony thorax appears intact without fractures or deformities. Soft Tissues: Soft tissues overlying the chest wall are unremarkable. Cardiac pacemaker, unchanged. IMPRESSION: 1. There has been interval development of a large opacity in the right upper lung zone and a smaller opacity in the right lower lung zone, likely representing an inflammatory or infectious process. A CT of the chest is recommended for further evaluation if clinically warranted. 2. Newly seen opacification of the right costo-diaphragmatic recess, likely secondary to progression of right pleural effusion. 3. Resolution of the previously seen left pleural effusion. 4. A few right upper/middle lung zone pulmonary nodular opacities are unchanged. 5. Mild cardiomegaly with a cardiac pacemaker, unchanged. Electronically signed by Marcelino Mckeon 09-02-2025 02:22 AM
[2025-09-02 09:08] LABS: Hematocrit (blood only) 32.1 % (37.0-47.0); Hemoglobin 9.9 g/dL (12.0-16.0); Mean Corpuscular Hemoglobin 32.6 pg (25.0-34.0); Mean Corpuscular Volume 105.6 fL (80.0-100.0); Platelet Count 122 K/uL (130-400); RDW Standard Deviation 77.8 fL (36.4-46.3); Red Blood Count 3.04 M/uL (4.20-5.40); White Blood Count 11.16 K/ul (4.8-10.8)
[2025-09-02 09:23] LABS: Anion Gap 11.0 (3-11); Blood Urea Nitrogen 23.0 mg/dl (6-23); Calcium 8.9 mg/dl (8.6-10.3); Carbon Dioxide 30.0 mmol/L (21-32); Chloride 96.0 mmol/L (98-107); Creatinine Clr Calc Pharmacy 58.7 ml/min; Glucose 201.0 mg/dl (70-99(Fasting)); Potassium 4.0 mmol/L (3.5-5.1); Sodium 137.0 mmol/L (136-145)
--- NOTE | 2025-09-02 18:31 | Hospitalist Progress Note ---
Date of Service September 02, 2025 Assessment & Plan (1) Metastatic cancer to liver: (2) Iron deficiency anemia: (3) (HFpEF) heart failure with preserved ejection fraction: (4) Chronic atrial fibrillation: Plan This is a 65 year old female with past medical history of chronic pancreatitis, tobacco use, COPD, PVD, recent stent placement of right carotid artery who presented to the ED on 08/22/2025 after an outpatient PCP visit for abdominal and back pain. #Small cell lung cancer with widespread metastasis IR biopsy of the right supraclavicular lymph node resulted in small cell lung cancer Patient + updated regarding these findings on 08/29 CTAP w/ diffuse metastatic disease including liver, adrenal glands, & lymph nodes Chest CTA significant for 9.5cm right perihilar/suprahilar paramediastinal mass. New from 11/27/2024. Invades mediastinum While no respiratory distress or episodes of hypoxia while in the hospital, suspect that if this worsens, patient may require pulmonology consult for bronchial stenting Lumbar spine MRI obtained on 08/27 Illustrated widespread metastatic disease throughout the thoracic lumbar sacral spine; no evidence of spinal cord or cauda equina masses Oncology consulted, appreciate recommendations Brain MRI ordered to assess full staging However, patient was unable to tolerate full brain MRI, and only brain MRI without contrast was obtained Skeletal mets appreciated; no intracranial mets appreciated, however difficult to assess given noncontrasted study Advance care planning discussion took place on 08/30: Patient + declined induction therapy, would like to focus on palliative/hospice care at this time GOC: home with hospice CM following Referral sent to [facility]; being set up to start on Monday 09/03 Prescription signed for hospice evaluation and treatment Palliative care consult appreciated for pain control regimen #Opioid-induced lethargy Recurrent on 08/30 and 09/01 Down titrate fentanyl patch from 25 -> 12.5 mg Decreased oxycodone 10 -> 5mg p.o. q6h ? Alternative option OxyContin Would avoid Dilaudid due to increased sedation/lethargy, and concern for CO2 narcosis when taking Continuous pulse oximetry #Constipation Suspect opioid-induced Consider methylnaltrexone bromide ("Relistor") Naloxegol oxalate ("Moventig") 12.5 mg p.o. given the morning of 08/30 and ordered again on the evening of 09/01 Continue MiraLAX QAM + Senna HS Fleet enema PRN #Anemia Hx of NETTIE, on PO iron outpatient. Hgb 7.8 on admission. dropped to 6.6 on 08/23, s/p 1 Unit PRBCs, now stable Okay to resume Eliquis on 08/27 Iron does appear slightly elevated at 170; remainder of panel WNL --> reduce to daily PO iron supplementation B12 elevated at 1446 & Folate WNL #H/o Hyponatremia Trial of sodium chloride 1000 mg daily led to sodium dropped from 139 -> 134 H/o chronic hyponatremia Restart sodium chloride 1000 mg tablets BID Monitor sodium levels daily while inpatient #R carotid artery stenosis Recent TCAR w/ Dr. Maya on 08/01/2025 that required ICU stay following secondary to hypotension requiring pressors and subsequently discharged home on Midodrine TID. Continue ASA/Plavix #Hypotension Continue Midodrine TID #Chronic pancreatitis Abdominal pain may be secondary to underlying chronic pancreatitis vs liver mets Continue Creon supplement Pain regimen as above #A fib Rate controlled on admission Continue Metoprolol #CHF Echo from 07/19 - EF 55-60%; mod tricuspid regurg; mod mitral regurg Caution volume of IVF given during hospital stay. Bumex held on 08/30 and 08/31 as patient appeared clinically dry + hypokelmic / hypochloremic on labs Plan to restart Bumex the morning of 09/01 #Neuropathy - Pregabalin #Mental health - Amitriptyline, Ambien #GERD - PPI Disposition: Goal is to return home on hospice care; continued stay for pain control [facility] working to set things up (they can re portedly start her on Wednesday, 09/03) DVT PPx: Eliquis Admission and Anticipated Discharge Date Admission Date: August 22, 2025 Subjective Mrs. Garcia is awake and oriented, but having 10 out of 10 lower back pain at this time, which she characterizes as a constant, stabbing pain. She is also having generalized abdominal pain she tends to oscillate between feeling completely zonked/lethargic/unresponsive, and being in severe pain. She did not sleep at all last night, and feels "restless" this morning. Additionally she is still coughing up phlegm. She denies any SOB at this time, but is still having some mild pleuritic CP. No fevers overnight. Patient is excited to eventually return home and see her dog (Ronaldo) who is a oates-doodle. ROS: Patient endorses nausea (improving), mild abdominal pain restlessness, productive cough (clear sputum production), pleuritic CP, and severe lower back pain. Patient denies chest pain, vomiting, or SOB at rest. Review of Systems Review of Systems: See HPI above Physical Exam Physical Exam: General: Moderate physical distress secondary to lower back pain; patient keeps her eyes closed while in bed (unless asked to open them); non-toxic appearing; cooperative; frail-appearing; SpO2 100% on 2L NC HEENT: normocephalic, atraumatic; PERRLA; vision and hearing appear intact at this time Neck: supple; trachea midline Skin: warm, dry without signs of tenting; no cyanosis; no rashes, bruising, lesions, or erythema noted CV: chest wall NTP; RRR; S1/S2 normal; pulses intact and symmetric at radial, DP, and PT Lungs: no acute respiratory distress; diminished breath sounds in the right lower lung field when compared to the left ABD: Soft, NTP; BS present; no rebound/guarding; no distention : Torres catheter in place draining dark orange urine MSK: no tics or fasciculations; s/p left lower leg amputation; patient exhibits ability to wiggle toes of the right foot Neuro: A&O x 3; normal mood and affect; responds appropriately to all questioning Results & Data Results & Data Vital Signs (Past 12 Hours) Vital Signs Temp Pulse Resp BP Pulse Ox Pulse Ox O2 Del Method 09/02/25 14:41 36.4 C L 72 16 104/65 100 Nasal Cannula 09/02/25 09:02 97 09/02/25 07:55 Room Air 09/02/25 07:16 36.6 C 82 16 114/67 94 Room Air O2 Del Method O2 Flow Rate 09/02/25 14:41 2 09/02/25 09:02 Room Air 09/02/25 07:55 09/02/25 07:16 PG Care Time/CCT Total # of Minutes Spent Total Time Spent with Patient: Total time spent is greater than 50% in coordination of care (as documented) at patient's floor/unit and/or counseling patient: Coding [place] [address] SUB INP/OBS CARE 50MIN Patient Type Established History Comprehensive Exam Comprehensive Medical Decision Making High Complexity Diagnoses Metastatic cancer to liver C78.7 Iron deficiency anemia D50.9 (HFpEF) heart failure with preserved ejection fraction I50.30 Chronic atrial fibrillation I48.20
[2025-09-02] MEDS: ACETAMINOPHEN 500 MG TAB PO PRN (23:15)
[2025-09-02] MEDS: DICLOFENAC SOD 1% GEL 100 GM TUBE EXT SCH (23:16)
[2025-09-03 08:22] VITALS: BP 116/80; PULSE 68; RESP 18; TEMP 97.3; O2SAT 98
--- NOTE | 2025-09-03 10:42 | Discharge Summary ---
Discharge Summary Date of Service September 03, 2025 Principal Dx & Hospital Course #1 = Principal Diagnosis (1) Metastatic cancer to liver: (2) Iron deficiency anemia: (3) (HFpEF) heart failure with preserved ejection fraction: (4) Chronic atrial fibrillation: Plan This is a 65 year old female with past medical history of chronic pancreatitis, tobacco use, COPD, PVD, recent stent placement of right carotid artery who presented to the ED on 08/22/2025 after an outpatient PCP visit for abdominal and back pain. #Small cell lung cancer with widespread metastasis IR biopsy of the right supraclavicular lymph node resulted in small cell lung cancer CTAP w/ diffuse metastatic disease including liver, adrenal glands, & lymph nodes Chest CTA significant for 9.5cm right perihilar/suprahilar paramediastinal mass. New from 11/27/2024. Invades mediastinum Lumbar Spine MRI: widespread metastatic disease throughout visualized portions of thoracic, lumbar, & sacral spine. Evidence for iliac & sacral metastasis. Brain MRI: multi-focal areas of marrow replacement viewed as highly suspicious for skeletal mets. No evidence of intracranial mets. (was performed w/o contrast secondary to patient not being able to tolerate MRI) Oncology consulted --> recommended chemoimmunotherapy vs hospice Palliative care consulted --> GOC discussion took place on 08/30, patient & elected to start on palliative hospice care. Pain regimen on dc includes Fentanyl 12mcg q72h + Oxycodone 5mg q4h for breakthrough pain. Ativan prescribed on dc for anxiety/agitation. All outpatient scheduled meds continued on discharge, recommend discuss w/ hospice facility on what medications she wishes to continue. #Constipation Suspect opioid-induced Sent home on Colace BID, Miralax daily, and Senna daily. #Anemia Hx of NETTIE, on PO iron outpatient. Hgb 7.8 on admission. dropped to 6.6 on 08/23, s/p 1 Unit PRBCs, now stable Resumed Eliquis on 08/27 Iron does appear slightly elevated at 170; remainder of panel WNL --> reduce to daily PO iron supplementation B12 elevated at 1446 & Folate WNL #R carotid artery stenosis Recent TCAR w/ Dr. Maya on 08/01/2025 that required ICU stay following secondary to hypotension requiring pressors and subsequently discharged home on Midodrine TID. Continue ASA/Plavix #Hypotension - Continue Midodrine TID #Chronic pancreatitis - Continue Creon #A fib- Continue Metoprolol #CHF Echo from 07/19 - EF 55-60%; mod tricuspid regurg; mod mitral regurg Continue Bumex + KCl. #Neuropathy - Pregabalin #Mental health - Amitriptyline, Ambien #GERD - PPI Updated at bedside w/ dc plans on 09/03. Patient discharged home w/ hospice. Admission HPI Per Admitting Provider This is a 65 year old female with past medical history of chronic pancreatitis, tobacco use, COPD, PVD, recent stent placement of right carotid artery who presented to the ED on 08/22/2025 after an outpatient PCP visit for abdominal and back pain. Anisha was seen & examined this afternoon with her at bedside. She reports that she has had ongoing abdominal pain/back pain for at least one week. The patient reports her abdominal pain feels like previous episodes of pancreatitis. reports she started to complain of lumbar back pain after slipping out of the bath tub a few days ago. She states that she was supposed to get a chest CT scan next week to follow up on the abdominal CXR from her last hospital stay. She denies any CP, SOB, N/V, changes in bowels. She reports she has been having issues urinating and a caballero catheter was placed. Did discuss imaging findings with the patient and she does wish to pursue a further workup including a biopsy and chemotherapy if she were to be a candidate. While in the ED, a CTAP was found to have interval diffuse liver mets, adrenal mets, and diffuse lymph node mets at the abdomen, no other acute findings were seen. Hgb was low at 7.8. Lactate was elevated at 2.1. TB elevated at 1.4, Alk phos elevated at 150. AST/ALT WNL. Trop negative. Lipase WNL. UA positive & UC pending. In the ED, she was given Fentanyl, Morphine, Diazepam, Tylenol, Lidocaine patch, Zofran, and Rocephin. Code discussion did take place and she does confirm that she is a full code. Discharge Exam General: NAD, VS: BP 116/80; P68; R18; T36.3C Resp: normal respiratory effort Extremities: no edema Neuro: A&O x3, Skin: intact, no lesions noted Discharge Plan Discharge Items Patient Disposition: Hospice - Home Reason For Visit: ABDOMINAL PAIN, BACK PAIN Discharge Diagnosis: Metastatic small cell lung cancer Activity: Resume your previous activity Non-emergency contact: Primary Care Provider Call non-emergency contact if: you have any medication questions, your symptoms worsen and your pain is not controlled Follow-up/Referrals: Kat Morataya MD [Primary Care Provider] - Diet: Regular Addtl Attending Provider Instructions: Ms. Garcia, You were recently hospitalized secondary to abdominal and low back pain. You were found to have lung cancer with metastatic disease to your spine which is likely the underlying cause of your pain. After a discussion with the palliative care team and the oncologist, you have elected to go home on hospice. M edications listed below have been sent to your pharmacy to help provide comfort. Medications: Your medication list has been reviewed and reconciled upon discharge to ensure accuracy and continuity of care. An updated list of all your medications is included with your hospital discharge paperwork. Please review this list closely, and make note of any changes. Your Fentanyl patch was recently changed on 09/01/2025. Your patch will need to be switched on 09/04/2025. The fentanyl patch is changed out every 72 hours. For breakthrough pain, you may use Oxycodone 5mg every 4 hours as needed. You may use 1mg of Ativan every 4 hours as needed for anxiety. To ensure you are still moving your bowels while on opioids - Please take a stool softener twice daily, Miralax once daily in the morning, and Senna tab prior to bed. All of your medications were continued on discharge. Please discuss with the hospice agency on whether you prefer to continue the medications or discontinue them. Take your medications as instructed; do not skip a dose of your medicines. Make sure all of your doctors know every medicine you are taking (including esae-pwz-pfmqdry medicines, vitamins, and supplements). Call your primary care provider before taking any new medicines (including over- the-counter medicines, vitamins, and supplements), because some of these may interact with your current medications, or may make your symptoms worse. Tell your primary care provider if you cannot afford your medications. Activity: You can do normal everyday activities as your body allows. Take rest breaks if you feel tired. Do not overexert. Stop activity if you have pain, shortness of breath or feel dizzy. CONTACT YOUR PRIMARY CARE PROVIDER if you experience any of the following: Shortness of breath or difficulty breathing Fevers or chills Feeling tired with normal activity or experiencing dizziness or fainting Difficulty following your treatment plan, or difficulty taking medications CALL 911 OR GO TO THE EMERGENCY DEPARTMENT if you experience any of the following: Severe abdominal pain or nausea/vomiting Severe chest pain, or chest pain that radiates (moves) to your jaw or arm Sudden, severe shortness of breath or difficulty breathing Thank you for allowing us to participate in your care. Pending Studies at Discharge: No Stand-Alone Forms: [facility] Medications and DC Order Prescriptions: New sennosides [Senna Lax] 8.6 mg Tablet 8.6 mg PO HS Qty: 30 0RF polyethylene glycol 3350 [Miralax] 17 gram Powder In Packet 17 g PO DAILY Qty: 30 0RF oxycodone 5 mg Tablet 5 mg PO Q4H PRN (Reason: pain) Qty: 20 0RF fentanyl 12 mcg/hr Patch 72 Hour 1 patch transdermal Q3D Qty: 10 0RF lorazepam 1 mg tablet 1 mg PO QID PRN (Reason: anxiety) Qty: 10 0RF Continued pantoprazole [Protonix] 40 mg tablet,delayed release (DR/EC) 40 mg PO QAM Qty: 120 3RF sodium chloride 1,000 mg tablet,soluble 1,000 mg PO BID Qty: 180 3RF bumetanide 2 mg tablet 2 mg PO QAM potassium chloride 20 mEq tablet extended release 40 meq PO DAILY Qty: 180 4RF aspirin [Tj Low Dose Aspirin] 81 mg Tablet,Delayed Release (Dr/Ec) 81 mg PO QAM Hold Instructions: Resume on 11/17/23. amitriptyline 50 mg Tablet 50 mg PO HS metoprolol succinate 25 mg tablet extended release 24 hr 25 mg PO BID Eliquis 5 mg Tablet 5 mg PO BID Creon 3,000-9,500- 15,000 unit capsule,delayed release(DR/EC) 1 cap PO UD Rx Instructions: each meal and snack zolpidem [Ambien] 10 mg Tablet 10 mg PO HS pregabalin 300 mg capsule 300 mg PO QAM clopidogrel [Plavix] 75 mg Tablet 75 mg PO DAILY midodrine 5 mg tablet 5 mg PO TID@0800,1200,1700 Qty: 21 0RF Changed docusate sodium 100 mg Capsule 100 mg PO BID Qty: 60 0RF ferrous sulfate 325 mg (65 mg iron) Tablet,Delayed Release (Dr/Ec) 325 mg PO DAILY Qty: 60 0RF Discontinued sennosides-docusate sodium [Senokot-S] 8.6-50 mg Tablet 2 tab PO QAM PRN (Reason: constipation) Qty: 60 0RF Rx Instructions: OTC oxycodone 5 mg Tablet 10 mg PO Q6H PRN (Reason: Pain) Discharge Orders: Discharge Order (Routine); Ordered 09/03/25 Ordered By: Jazz Phan Admission Data Admit Date/Time: 08/22/25 14:56 Attending Provider: Ousmane Dias Admit Provider: Eve Madden Primary Care Provider: Kat Morataya Other Providers: Eve Madden; Kat King; Anita Robbins; Hill Morgan; Nimo Arias; Sandie Angel; Zia Borja; Marilyn Ocampo; Eryn,No Attending; Yana Kramer; Grace Padilla; [place] [facility] Other Interventions: Discharge Summary Assessment (RN) Last Done: 09/03/25 11:08 Hospital Stay Data Consultations 08/22/25 14:17 ED Decision to Admit Stat 08/24/25 08:09 Consult Oncology Routine 08/29/25 15:32 Consult Palliative Care Routine Diagnostic Imagining Performed 08/22/25 10:25 CT abd pelvis IV con only Stat 08/23/25 08:11 CT angio chest w con Routine 08/27/25 08:12 MR lumbar spine wo/w con Routine 08/27/25 11:30 IR FNA lymph node US Routine 08/28/25 07:00 MR brain wo con Routine Pending Results Patient Have Any Pending Studies at Discharge: No Discharge Instructions Given to Patient (Per Discharging Provider) Ms. Garcia, You were recently hospitalized secondary to abdominal and low back pain. You were found to have lung cancer with metastatic disease to your spine which is likely the underlying cause of your pain. After a discussion with the palliative care team and the oncologist, you have elected to go home on hospice. Medications listed below have been sent to your pharmacy to help provide comfort. Medications: Your medication list has been reviewed and reconciled upon discharge to ensure accuracy and continuity of care. An updated list of all your medications is included with your hospital discharge paperwork. Please review this list closely, and make note of any changes. Your Fentanyl patch was recently changed on 09/01/2025. Your patch will need to be switched on 09/04/2025. The fentanyl patch is changed out every 72 hours. For breakthrough pain, you may use Oxycodone 5mg every 4 hours as needed. You may use 1mg of Ativan every 4 hours as needed for anxiety. To ensure you are still moving your bowels while on opioids - Please take a stool softener twice daily, Miralax once daily in the morning, and Senna tab prior to bed. All of your medications were continued on discharge. Please discuss with the hospice agency on whether you prefer to continue the medications or discontinue them. Take your medications as instructed; do not skip a dose of your medicines. Make sure all of your doctors know every medicine you are taking (including oaxy-gsi-vhkefmv medicines, vitamins, and supplements). Call your primary care provider before taking any new medicines (including over- the-counter medicines, vitamins, and supplements), because some of these may interact with your current medications, or may make your symptoms worse. Tell your primary care provider if you cannot afford your medications. Activity: You can do normal everyday activities as your body allows. Take rest breaks if you feel tired. Do not overexert. Stop activity if you have pain, shortness of breath or feel dizzy. CONTACT YOUR PRIMARY CARE PROVIDER if you experience any of the following: Shortness of breath or difficulty breathing Fevers or chills Feeling tired with normal activity or experiencing dizziness or fainting Difficulty following your treatment plan, or difficulty taking medications CALL 911 OR GO TO THE EMERGENCY DEPARTMENT if you experience any of the following: Severe abdominal pain or nausea/vomiting Severe chest pain, or chest pain that radiates (moves) to your jaw or arm Sudden, severe shortness of breath or difficulty breathing Thank you for allowing us to participate in your care. Supervising Physician Co-Signing Physician Notes The patient was not seen by me. The chart was reviewed. Case discussed with MAYI Parker. Agree with assessment and plan Total Time Total Time Spent Total Time Spent (In Minutes): 50 Total Time Includes: Examination of the Patient, Discharge Planning and Medication Reconciliation Coding Level of Care Code 14550 INP/OBS DISCH >30 MIN Diagnoses Metastatic cancer to liver C78.7 Iron deficiency anemia D50.9 (HFpEF) heart failure with preserved ejection fraction I50.30 Chronic atrial fibrillation I48.20
== END 2025-09-03 11:54 | disposition hospice, home (50) | DRG 181 ==
LOC: SUATTDRO → ED 09:58 → 3E 14:56 → SUATTDRO 14:56 → 3E 18:06
DX: D50.9 Iron deficiency anemia, unspecified; C34.91 Malignant neoplasm of unspecified part of right bronchus or lung; C78.7 Secondary malignant neoplasm of liver and intrahepatic bile duct; B96.20 Unspecified Escherichia coli [E. coli] as the cause of diseases classified elsewhere; J44.9 Chronic obstructive pulmonary disease, unspecified; K86.1 Other chronic pancreatitis; G89.3 Neoplasm related pain (acute) (chronic); Z79.82 Long term (current) use of aspirin; T42.6X5A Adverse effect of other antiepileptic and sedative-hypnotic drugs, initial encounter; I73.9 Peripheral vascular disease, unspecified; Z80.3 Family history of malignant neoplasm of breast; I50.32 Chronic diastolic (congestive) heart failure; Z91.048 Other nonmedicinal substance allergy status; I65.21 Occlusion and stenosis of right carotid artery; F17.210 Nicotine dependence, cigarettes, uncomplicated; C79.70 Secondary malignant neoplasm of unspecified adrenal gland; K21.9 Gastro-esophageal reflux disease without esophagitis; I48.0 Paroxysmal atrial fibrillation; Z66 Do not resuscitate; Z79.01 Long term (current) use of anticoagulants; Z91.040 Latex allergy status; I95.9 Hypotension, unspecified; Z79.02 Long term (current) use of antithrombotics/antiplatelets; Z88.8 Allergy status to other drugs, medicaments and biological substances; R53.1 Weakness; K59.03 Drug induced constipation; R06.89 Other abnormalities of breathing; Z88.0 Allergy status to penicillin; T40.2X5A Adverse effect of other opioids, initial encounter; Z88.1 Allergy status to other antibiotic agents; Z95.0 Presence of cardiac pacemaker; C77.2 Secondary and unspecified malignant neoplasm of intra-abdominal lymph nodes; N39.0 Urinary tract infection, site not specified; Z95.5 Presence of coronary angioplasty implant and graft; Z79.899 Other long term (current) drug therapy; Z51.5 Encounter for palliative care; G62.9 Polyneuropathy, unspecified; C79.51 Secondary malignant neoplasm of bone